=== PATIENT | female | born 1940 | race Caucasian/White ===

== ENCOUNTER 2017-03-22 16:49 | Emergency (ER) | payer OTHER, BC ==
[~2017-03-22] VITALS: Ht 156.2 cm; Wt 93.2 kg
[~2017-03-22 16:49] MED LIST: ADVIN25050 INH; ALBUAER2 INH; ALL180 PO; AMLO-110 PO; ASPEC81 PO; CALCTAB7 PO; CHOL4POW2 PO; CYAN10004 PO; DEXL60CA4 PO; EFFSR75 PO; FLUT27.5 NAE; KRIL1000 PO; LEVO100T PO; LPR25 PO; MULTCHW PO; OXYB3.9D TD; POTA20TA16 PO; SIMV10TA2 PO; SNG10 PO; WARF-246 PO
[2017-03-22 17:02] VITALS: BP 139/68; PULSE 65; TEMP 36.8; O2SAT 95; Ht 156.2 cm; Wt 93.2 kg
[2017-03-22] MEDS ORDERED: DIPHTHERIA/TETANUS/PERTUSSIS 0.5 ML SYR/VIAL IM. ONE (17:30)
[2017-03-22] MEDS ORDERED: GELATIN SPONGE 12-7MM EXT ONE (17:30)
[2017-03-22] MEDS ORDERED: VENL75CA73 PO (17:48)
[2017-03-22] MEDS ORDERED: FLUT27.53 NAE (17:48)
[2017-03-22] MEDS ORDERED: ASPI81TA21 PO (17:48)
[2017-03-22] MEDS ORDERED: FEXO1TAB46 PO (17:48)
[2017-03-22] MEDS ORDERED: SNG10 PO (17:48)
[2017-03-22] MEDS ORDERED: ATOR-22 PO (17:51)
[2017-03-22 18:09] LABS: INR 3.3 (0.9-1.1); PARTIAL THROMBOPLASTIN RATIO 1.5
[2017-03-22] MEDS ORDERED: [UNRECOGNIZED DRUG - REMARK] (18:15)
--- NOTE | 2017-03-22 18:31 | EMERGENCY ROOM VISIT NOTE ---
ED Visit Note First contact with patient: 17:08 Chief Complaint: Wound on LEFT Hand, Won't Stop Bleeding History of Present Illness: Patient is a 77-year-old female who presents to the emergency department with her for evaluation of a skin tear to the LEFT hand. She reports that her dog accidentally scraped her today. She's been unable to stop the bleeding. She also has bruising to the RIGHT thumb after the dog pushed off on her hand yesterday. She currently takes Coumadin for atrial fibrillation. Her last INR was 2.9. The patient rates her current discomfort as a 0/10. Her tetanus status is not up-to-date. She denies any numbness or tingling into the distal extremity. Medications: Reviewed and discussed with the patient. Allergies: Multiple allergies listed above. PMH: No pertinent past medical history. SHx: Patient is a 77-year-old female who lives locally with family. ROS: All pertinent positive and negative review of systems are appropriately documented in the History of Present Illness. Physical Exam: VITAL SIGNS - Vital signs and Nursing Notes were reviewed. GENERAL -77-year-old female, well-developed, well-nourished, and in no acute distress. SKIN/MUSCULOSKELETAL -small 2.0 cm skin tear noted to the dorsal surface of the proximal LEFT thumb. Oozing blood from the wound. No surrounding erythema. 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 Small ecchymosis to the thenar eminence of the RIGHT thumb. Full range of motion with +/5 strength appreciated bilaterally. NEURO - Patient is A&Ox3 and communicates appropriately with the provider. LABS: Last 24 Hours Test 03/22/17 17:48 Prothrombin Time 37.0 SECONDS Prothromb Time International Ratio 3.3 Activated Partial Thromboplast Time 37.8 SECONDS Partial Thromboplastin Ratio 1.5 ED Course: Patient was seen and evaluated by myself. Labs were drawn. The patient's INR was elevated at 3.3. Patient's tetanus was updated. Wound was dressed with Gelfoam initially. She did bleed through this. Surgicel was applied to the area for comfort. Patient will follow-up with her primary care provider from today's visit. She will return for any changing or worsening symptoms. Patient discharged home in good condition. In the evaluation and treatment of this patient, the following differential diagnoses were considered: Bleeding dyscrasia, elevated INR, cellulitis, amongst others. Impression: Skin Tear to LEFT Hand, Bruising to RIGHT Hand, Elevated INR Discharge Instructions: You have been treated in the Emergency Department today for your skin tear. Leave the Surgicel and dressing in place for the next 48 hours. Keep the dressing clean and dry until time for removal. To remove the Surgicel dressing, remove the overlying tape and then soak the wound in warm water until the piece of Surgicel can be easily removed. Proper wound care is essential for adequate wound healing and infection prevention. You can shower and clean the wound with soap and water. Do not scour over the wound, pat dry with a towel. You can use an antibiotic ointment with a dressing/bandage over the wound for the next 3-4 days. After this time you may leave the wound dry and open to the air. Look for signs of infection of the wound including: increased pain, swelling, foul discharge, streaking, or increased temperature. If any of these are noticed you should return to the Emergency Department for further assessment and treatment. As with any laceration you may have received nerve damage to the surrounding tissues. This damage could be permanent. For pain control, you can use the following [id number] medicines (if >12 yo): - Regular strength (325mg/tab) Tylenol (acetaminophen) 2 tabs every 4-6 hours as needed. Do not exceed 12 tablets in a 24 hour period. Avoid taking more than 4 grams (4000 mg) of Tylenol per day. This includes any other sources of acetaminophen you may take on a regular basis. - Regular strength (200 mg/tab) Advil (ibuprofen) 1-2 tabs every 4-6 hours as needed. Do not exceed a dose of 3200 mg per day. Return to the emergency department if your symptoms worsen despite treatment course outlined above. Problem List Medical Problems: (1) Arthroscopy of knee joint Status: Resolved (2) Atrial fibrillation Status: Chronic (3) Benign hypertension Status: Chronic (4) Coronary arteriosclerosis Status: Chronic (5) Coronary artery disease Status: Chronic (6) Deep venous thrombosis Status: Resolved (7) Dyslipidemia Status: Chronic (8) Essential hypertension Status: Chronic (9) Gastroesophageal reflux disease Status: Chronic (10) Hypothyroidism Status: Chronic (11) Lyme disease Status: Resolved (12) Pulmonary embolism Status: Resolved (13) Sleep apnea Status: Chronic (14) Stented coronary artery Status: Chronic Surgical Problems: (1) History of appendectomy Status: Resolved (2) Placement of stent in coronary artery Status: Resolved (3) Tubal Ligation Status Status: Resolved Current/Historical Medications Scheduled Albuterol (Ventolin Hfa), 2 PUFFS INH PRN Amlodipine (Norvasc), 5 MG PO DAILY Aspirin Enteric Coated (Ecotrin Or Generic), 81 MG PO HS Atorvastatin (Lipitor), 20 MG PO HS Calcium Carbonate-Vitamin D W/ (Caltrate 600 Plus), 1 TAB PO DAILY Cyanocobalamin (Vitamin B-12 1000 Mcg), 1,000 MCG PO DAILY Dexlansoprazole (Dexilant), 60 MG PO HS Fexofenadine Hcl (Marlyn), 180 MG PO HS Fluticasone Furoate (Flonase Sensimist), 2 SPRAYS CATRACHO HS Fluticasone Prop/Salmeterol (Advair Diskus 250-50 Mcg/Dose), 1 PUFF INH DAILY Levothyroxine Sodium (Synthroid), 100 MCG PO DAILY Metoprolol Tartrate (Lopressor), 25 MG PO BID Montelukast Sod (Montelukast Sodium), 10 MG PO QAM Multiple Vitamins W/ Minerals (Centrum Silver), 1 TAB PO DAILY Oxybutynin Chloride (Oxytrol), 1 PATCH TD 2XWK Potassium Ext Rel (Klor-Con), 20 MEQ PO BID Venlafaxine Hcl (Venlafaxine Extended Rel), 75 MG PO QAM Warfarin Sodium (Warfarin Sodium), 5 MG PO 6XWK Warfarin Sodium (Warfarin Sodium), 7.5 MG PO WEDNESDAY Scheduled PRN Cholestyramine Light (Questran Powder Light), 4 GM PO DAILY PRN for lyme's flare Miscellaneous Medications [Unknown Gerd Med] Allergies Coded Allergies: Penicillins (Verified Allergy, Mild, 03/22/17) Broccoli (Unverified Allergy, Unknown, GAS, 03/22/17) Dust (Verified Allergy, Unknown, asthma symptoms, 03/22/17) Grapefruit (Unverified Allergy, Unknown, BRONCHITIS, 03/22/17) Molds and Smuts (Verified Allergy, Unknown, asthma symptoms, 03/22/17) [place] (Unverified Allergy, Unknown, BRONCHITIS, 03/22/17) POLLEN (Verified Allergy, Unknown, asthma symptoms, 03/22/17) Paroxetine (Unverified Allergy, Unknown, ANAPHYLAXIS, 03/22/17) Crab (Verified Adverse Reaction, Unknown, diarrhea, 03/22/17) Peanut (Unverified Adverse Reaction, Unknown, gas/bloating, 03/22/17) Uncoded Allergies: BEANS (Adverse Reaction, Unknown, gas and bloating with consuption of green or kidneys beans, 09/20/14) PEANUTS (Adverse Reaction, Unknown, gas/bloating, 09/20/14) Vital Signs Date Time Temp Pulse Resp B/P Pulse Ox O2 Delivery O2 Flow Rate FiO2 03/22/17 17:02 36.8 65 18 139/68 95 Room Air Laboratory Results Test 03/22/17 17:48 Prothrombin Time 37.0 SECONDS (9.0-12.0) Prothromb Time International Ratio 3.3 (0.9-1.1) Activated Partial Thromboplast Time 37.8 SECONDS (21.0-31.0) Partial Thromboplastin Ratio 1.5 Medications Administered Medications (Trade) Dose Ordered Sig/Woo Route Start Time Stop Time Status Last Admin Dose Admin Gelatin (Surgifoam Sponge 12-7MM (SMALL)) 1 ea NOW ONCE EXT 03/22/17 17:30 03/22/17 17:31 DC 03/22/17 17:37 1 EA Diphtheria/ Pertussis/Tetanus Vacc (Adacel Inj) 0.5 ml ONCE ONCE IM. 03/22/17 17:30 03/22/17 17:31 DC 03/22/17 17:38 0.5 ML Departure Information Impression Primary Impression: Skin tear of hand without complication Additional Impression: Elevated INR Dispostion Home / Self-Care Referrals Kumar Salinas M.D. (PCP) Patient Instructions My [facility] Additional Instructions You have been treated in the Emergency Department today for your skin tear. Leave the Surgicel and dressing in place for the next 48 hours. Keep the dressing clean and dry until time for removal. To remove the Surgicel dressing, remove the overlying tape and then soak the wound in warm water until the piece of Surgicel can be easily removed. Proper wound care is essential for adequate wound healing and infection prevention. You can shower and clean the wound with soap and water. Do not scour over the wound, pat dry with a towel. You can use an antibiotic ointment with a dressing/bandage over the wound for the next 3-4 days. After this time you may leave the wound dry and open to the air. Look for signs of infection of the wound including: increased pain, swelling, foul discharge, streaking, or increased temperature. If any of these are noticed you should return to the Emergency Department for further assessment and treatment. As with any laceration you may have received nerve damage to the surrounding tissues. This damage could be permanent. For pain control, you can use the following [id number]-[id number] medicines (if >12 yo): - Regular strength (325mg/tab) Tylenol (acetaminophen) 2 tabs every 4-6 hours as needed. Do not exceed 12 tablets in a 24 hour period. Avoid taking more than 4 grams (4000 mg) of Tylenol per day. This includes any other sources of acetaminophen you may take on a regular basis. - Regular strength (200 mg/tab) Advil (ibuprofen) 1-2 tabs every 4-6 hours as needed. Do not exceed a dose of 3200 mg per day. Return to the emergency department if your symptoms worsen despite treatment course outlined above. Problem Qualifiers Primary Impression: Skin tear of hand without complication Encounter type: initial encounter Laterality: left Qualified Codes: S61.412A - Laceration without foreign body of left hand, initial encounter
== END 2017-03-22 19:07 | disposition home or self-care (01) ==
LOC: C.EDB 16:50 → C.EDC 19:07
DX: S61.412A Laceration without foreign body of left hand, initial encounter (principal); S60.221A Contusion of right hand, initial encounter; W55.82XA Struck by other mammals, initial encounter; Z79.01 Long term (current) use of anticoagulants; I48.91 Unspecified atrial fibrillation; R79.1 Abnormal coagulation profile; I10 Essential (primary) hypertension; I25.10 Atherosclerotic heart disease of native coronary artery without angina pectoris; Z86.718 Personal history of other venous thrombosis and embolism; E78.5 Hyperlipidemia, unspecified; K21.9 Gastro-esophageal reflux disease without esophagitis; E03.9 Hypothyroidism, unspecified; Z86.711 Personal history of pulmonary embolism; G47.30 Sleep apnea, unspecified; Z95.5 Presence of coronary angioplasty implant and graft; Z98.51 Tubal ligation status; Z79.82 Long term (current) use of aspirin; Z79.899 Other long term (current) drug therapy

== ENCOUNTER 2017-06-29 16:59 | Emergency (ER) | payer OTHER, BC ==
[~2017-06-29] VITALS: Ht 154.9 cm; Wt 90.0 kg
[~2017-06-29 16:59] MED LIST changes: -ALL180 PO; -ASPEC81 PO; +ASPI81TA21 PO; +ATOR-22 PO; -EFFSR75 PO; +FEXO1TAB46 PO; -FLUT27.5 NAE; +FLUT27.53 NAE; -KRIL1000 PO; -SIMV10TA2 PO; +VENL75CA73 PO; +[UNRECOGNIZED DRUG - REMARK]
[2017-06-29 17:01] VITALS: TEMP 36.9; Ht 154.9 cm; Wt 90.0 kg
--- NOTE | 2017-06-29 17:44 | DIAGNOSTIC IMAGING REPORT ---
LEFT ANKLE MIN 3 VIEWS ROUTINE CLINICAL HISTORY: 77 years-old Female presenting with left ankle bruising/swelling, no known trauma. TECHNIQUE: Frontal, oblique, and lateral views of the left ankle were obtained. COMPARISON: None. FINDINGS: Ankle mortise intact. Ossicle inferior to the medial malleolus may represent prior avulsion fracture. No evidence of acute fracture or malalignment. Prominent bone spur at the posterior calcaneal tuberosity and inferior calcaneus, likely enthesophytes of the Achilles tendon insertion and plantar fascia origin. Osteophytosis at the ankle joint. Plate and screw fixation of the first metatarsal partially visualized. Mild diffuse soft tissue swelling. IMPRESSION: 1. No acute osseous injury of the left ankle. 2. Degenerative changes as above. 3. Partial visualization of plate and screw fixation of the first metatarsal. Electronically signed by: Richomnd Cast M.D. 06/29/2017 5:42 PM Dictated Date/Time: 06/29/2017 5:40 PM
--- NOTE | 2017-06-29 17:48 | DIAGNOSTIC IMAGING REPORT ---
LEFT FOOT MIN 3 VIEWS ROUTINE CLINICAL HISTORY: 77 years-old Female presenting with bruising, pain. TECHNIQUE: Frontal, oblique, and lateral views of the left foot were obtained. COMPARISON: None. FINDINGS: Plate and screw fixation of the first metatarsal and proximal first phalanx spanning the first metatarsophalangeal joint. A lag screw also crosses the first metatarsophalangeal joint. No apparent hardware complication. Deformity of the neck of the fifth metatarsal consistent with prior fracture. Prominent bone spurs at the posterior calcaneal tuberosity and inferior calcaneus. Osteopenia. No erosive changes. No acute fracture or malalignment. Os naviculare noted. Diffuse soft tissue swelling. IMPRESSION: 1. No acute osseous injury of the left foot. 2. Postoperative changes of first metatarsophalangeal fixation. No radiographic evidence of osteomyelitis or hardware complication. Electronically signed by: Richmond Cast M.D. 06/29/2017 5:46 PM Dictated Date/Time: 06/29/2017 5:42 PM
[2017-06-29] MEDS ORDERED: MONT1TAB3 PO (17:54)
[2017-06-29] MEDS ORDERED: NYSTOIN5 (17:54)
[2017-06-29] MEDS ORDERED: BENZ100C84 PO (17:54)
[2017-06-29] MEDS ORDERED: VNTHFA/IN INH (17:54)
[2017-06-29] MEDS ORDERED: DVN80 PO (17:54)
[2017-06-29] MEDS ORDERED: ZCR10 (17:54)
[2017-06-29] MEDS ORDERED: COEN30CA8 (17:54)
--- NOTE | 2017-06-29 18:09 | EMERGENCY ROOM VISIT NOTE ---
ED Visit Note First contact with patient: 17:17 This Patient was discussed with the physician.Continuity Tester, Bridget Marsh PA-C The pertinent historical and physical exam findings were confirmed. I agree with the studies ordered and with the interpretations of these studies. I agree with the disposition and care plan.
--- NOTE | 2017-06-29 18:16 | EMERGENCY ROOM VISIT NOTE ---
"ED Visit Note First contact with patient: 17:05 CHIEF COMPLAINT: Left foot and ankle swelling/bruising HISTORY OF PRESENT ILLNESS: This 77-year-old female presents the ER with chief complaint of left foot and ankle swelling and bruising. The patient does not remember injuring her foot and ankle in any way. She states she noticed the bruising 5 days ago. She states at that point it was more on the top of her foot and ankle and now it is just more towards her toes. The patient states it hurts to ambulate. The patient did not see her PCP for her injury. REVIEW OF SYSTEMS: 6 system review was performed and was negative unless stated otherwise in history of present illness. PMH: No prior significant ankle injury. See chronic problem list SOCIAL HISTORY: Patient lives with her PHYSICAL EXAM: Vital Signs: Were reviewed Reviewed Nurse's notes. GEN.: 69-year -old white female appears in no acute distress. MENTAL STATUS: Alert, oriented , and cooperative. LUNGS: Clear to auscultation without wheezes rales or rhonchi. CARDIAC: Regular rate and rhythm without murmur. LEFT ANKLE The ankle is swollen and tender over the lateral aspect but the skin is intact and there is no ligamentous instability. Ecchymosis is noted just inferior to the malleolus. LEFT FOOT: No gross bony deformity noted. The patient has ecchymosis noted over the lateral aspect of the foot and over the second through fifth toes. The foot is warm and well-perfused. No pitting edema noted. EMERGENCY DEPARTMENT COURSE: The patient was evaluated. X-ray of the left ankle and left foot was ordered and interpreted by the radiologist and myself. DIAGNOSTICS:LEFT ANKLE MIN 3 VIEWS ROUTINE CLINICAL HISTORY: 77 years-old Female presenting with left ankle bruising/swelling, no known trauma. TECHNIQUE: Frontal, oblique, and lateral views of the left ankle were obtained. COMPARISON: None. FINDINGS: Ankle mortise intact. Ossicle inferior to the medial malleolus may represent prior avulsion fracture. No evidence of acute fracture or malalignment. Prominent bone spur at the posterior calcaneal tuberosity and inferior calcaneus, likely enthesophytes of the Achilles tendon insertion and plantar fascia origin. Osteophytosis at the ankle joint. Plate and screw fixation of the first metatarsal partially visualized. Mild diffuse soft tissue swelling. IMPRESSION: 1. No acute osseous injury of the left ankle. 2. Degenerative changes as above. 3. Partial visualization of plate and screw fixation of the first metatarsal. Electronically signed by: Richmond Cast M.D. LEFT FOOT MIN 3 VIEWS ROUTINE CLINICAL HISTORY: 77 years-old Female presenting with bruising, pain. TECHNIQUE: Frontal, oblique, and lateral views of the left foot were obtained. COMPARISON: None. FINDINGS: Plate and screw fixation of the first metatarsal and proximal first phalanx spanning the first metatarsophalangeal joint. A lag screw also crosses the first metatarsophalangeal joint. No apparent hardware complication. Deformity of the neck of the fifth metatarsal consistent with prior fracture. Prominent bone spurs at the posterior calcaneal tuberosity and inferior calcaneus. Osteopenia. No erosive changes. No acute fracture or malalignment. Os naviculare noted. Diffuse soft tissue swelling. IMPRESSION: 1. No acute osseous injury of the left foot. 2. Postoperative changes of first metatarsophalangeal fixation. No radiographic evidence of osteomyelitis or hardware complication. Electronically signed by: Richmond Cast M.D. 06/29/2017 5:46 PM The patient was informed of the findings. The patient was independently evaluated by Dr. Pal who agree with treatment plan. I discussed with the patient there is a possibility she could have a stress fracture there which is not visualized on the x-ray. If her symptoms persist she is to see her family doctor for repeat x-ray. The patient was placed in a postop shoe. She has a walker at home to aid in ambulation. The patient was discharged home in stable condition. DIAGNOSIS: Left foot and ankle sprain DISCHARGE INSTRUCTIONS: Ice and elevation over the next 24 hours. Ibuprofen, 600 mg every 6 hours if needed for pain. Take [place] as needed for more severe pain. Do not drive while taking the [place]. Use her walker to aid in ambulation. If there is no improvement in 3-5 days followup with your doctor for a re-x-ray. Problem List Medical Problems: (1) Arthroscopy of knee joint Status: Resolved (2) Atrial fibrillation Status: Chronic (3) Benign hypertension Status: Chronic (4) Coronary arteriosclerosis Status: Chronic (5) Coronary artery disease Status: Chronic (6) Deep venous thrombosis Status: Resolved (7) Dyslipidemia Status: Chronic (8) Essential hypertension Status: Chronic (9) Gastroesophageal reflux disease Status: Chronic (10) Hypothyroidism Status: Chronic (11) Lyme disease Status: Resolved (12) Pulmonary embolism Status: Resolved (13) Sleep apnea Status: Chronic (14) Stented coronary artery Status: Chronic Surgical Problems: (1) History of appendectomy Status: Resolved (2) Placement of stent in coronary artery Status: Resolved (3) Tubal Ligation Status Status: Resolved Current/Historical Medications Scheduled Albuterol Hfa (Ventolin Hfa), 2-4 PUFFS INH Q6H Amlodipine (Norvasc), 5 MG PO DAILY Aspirin Enteric Coated (Ecotrin Or Generic), 81 MG PO HS Atorvastatin (Lipitor), 20 MG PO HS Calcium Carbonate-Vitamin D W/ (Caltrate 600 Plus), 1 TAB PO DAILY Cyanocobalamin (Vitamin B-12 1000 Mcg), 1,000 MCG PO DAILY Dexlansoprazole (Dexilant), 60 MG PO HS Fexofenadine Hcl (Marlyn), 180 MG PO HS Fluticasone Furoate (Flonase Sensimist), 2 SPRAYS CATRACHO HS Fluticasone Prop/Salmeterol (Advair Diskus 250-50 Mcg/Dose), 1 PUFF INH DAILY Levothyroxine Sodium (Synthroid), 100 MCG PO DAILY Metoprolol Tartrate (Lopressor), 25 MG PO BID Montelukast Sod (Montelukast Sodium), 10 MG PO QAM Montelukast Sodium (Singulair), 1 TAB PO DAILY Multiple Vitamins W/ Minerals (Centrum Silver), 1 TAB PO DAILY Potassium Ext Rel (Klor-Con), 20 MEQ PO BID Valsartan (Diovan), 1 TAB PO DAILY Venlafaxine Hcl (Venlafaxine Extended Rel), 75 MG PO QAM Warfarin Sodium (Warfarin Sodium), 5 MG PO 6XWK Warfarin Sodium (Warfarin Sodium), 7.5 MG PO WEDNESDAY Scheduled PRN Cholestyramine Light (Questran Powder Light), 4 GM PO DAILY PRN for lyme's flare Miscellaneous Medications Benzonatate (Tessalon Perles), 100 MG PO Coenzyme Q10 (Ubidecarenone) (Coq-10) Nystatin/Triamcinolone (Mycogen ||) Simvastatin (Simvastatin) [Unknown Gerd Med] Allergies Coded Allergies: Penicillins (Verified Allergy, Mild, 06/29/17) Broccoli (Unverified Allergy, Unknown, GAS, 06/29/17) Dust (Verified Allergy, Unknown, asthma symptoms, 06/29/17) Grapefruit (Unverified Allergy, Unknown, BRONCHITIS, 06/29/17) Molds and Smuts (Verified Allergy, Unknown, asthma symptoms, 06/29/17) Minetto (Unverified Allergy, Unknown, BRONCHITIS, 06/29/17) POLLEN (Verified Allergy, Unknown, asthma symptoms, 06/29/17) Paroxetine (Unverified Allergy, Unknown, ANAPHYLAXIS, 06/29/17) Crab (Verified Adverse Reaction, Unknown, diarrhea, 06/29/17) Peanut (Unverified Adverse Reaction, Unknown, gas/bloating, 06/29/17) Uncoded Allergies: BEANS (Adverse Reaction, Unknown, gas and bloating with consuption of green or kidneys beans, 09/20/14) PEANUTS (Adverse Reaction, Unknown, gas/bloating, 09/20/14) Vital Signs Date Time Temp Pulse Resp B/P (MAP) Pulse Ox O2 Delivery O2 Flow Rate FiO2 06/29/17 17:01 36.9 79 20 152/73 93 Room Air Departure Information Referrals Kumar Salinas M.D. (PCP) Patient Instructions My [facility]"
[2017-06-29] MEDS ORDERED: HYDR-5688 PO (18:18)
[2017-06-29 18:28] VITALS: BP 172/76; PULSE 73; O2SAT 93
== END 2017-06-29 18:33 | disposition home or self-care (01) ==
LOC: C.EDB 17:00 → C.EDC 18:33
DX: S93.402A Sprain of unspecified ligament of left ankle, initial encounter (principal); X58.XXXA Exposure to other specified factors, initial encounter; I48.91 Unspecified atrial fibrillation; I10 Essential (primary) hypertension; I25.10 Atherosclerotic heart disease of native coronary artery without angina pectoris; Z86.718 Personal history of other venous thrombosis and embolism; E78.5 Hyperlipidemia, unspecified; K21.9 Gastro-esophageal reflux disease without esophagitis; E03.9 Hypothyroidism, unspecified; Z86.711 Personal history of pulmonary embolism; G47.30 Sleep apnea, unspecified; Z95.5 Presence of coronary angioplasty implant and graft; Z98.51 Tubal ligation status; Z79.82 Long term (current) use of aspirin; Z79.01 Long term (current) use of anticoagulants; Z79.899 Other long term (current) drug therapy

== ENCOUNTER 2019-08-22 06:47 | Inpatient (IN) ==
--- OUTSIDE RECORDS SUMMARY | 2019-08-22 06:57 | External Medical Summary | Continuity of Care Document ---
:1940 Author Name Nayan Aguilar, Provider Address Unavailable Unavailable , Care Team Providers Name Role Phone [facility]ontse, Provider Unavailable [email or web address] [email or web address], UNKNOWN Unavailable Unavailable Problems Active medical history not documented Allergies and Adverse Reactions Allergy history not documented Medications Medications not documented Procedures Procedures not documented Immunizations Immunizations not documented Plan of Treatment Planned Observations Planned Goals not documented Results No Known Results Results not documented
[2019-08-22 07:34] LABS: Basophils # (auto) 0.02 K/uL (0-0.2); Basophils % (auto) 0.2 %; Hematocrit (blood only) 29.7 % (37-47); Hemoglobin 9.3 g/dL (12.0-16.0); Immature Granulocytes # (auto) 0.02 K/uL (0.00-0.02); Immature Granulocytes % (auto) 0.2 %; Lymphocytes # (auto) 0.72 K/uL (1.2-3.4); Lymphocytes % (auto) 7.5 %; Mean Corpuscular Hemoglobin 25.8 pg (25-34); Mean Corpuscular Hgb Conc 31.3 g/dL (32-36); Mean Corpuscular Volume 82.3 fL (80-100); Mean Platelet Volume 9.8 fL (7.4-10.4); Monocytes # (auto) 0.22 K/uL (0.11-0.59); Monocytes % (auto) 2.3 %; Neutrophils # (auto) 8.61 K/uL (1.4-6.5); Neutrophils % (auto) 89.8 %; Platelet Count 324 K/uL (130-400); RDW Coefficient of Variation 16.8 % (11.5-14.5); RDW Standard Deviation 51.1 fL (36.4-46.3); Red Blood Count 3.61 M/uL (4.2-5.4); White Blood Count 9.59 K/uL (4.8-10.8)
[2019-08-22 07:51] LABS: Albumin Level 3.2 gm/dl (3.4-5.0); BUN Creatinine Ratio 31.6 (10-20); Calcium 9.1 mg/dl (8.5-10.1); Creatinine Clr Calc Pharmacy 52.5 ml/min; Est GFR (African American) 71.9; Est GFR (Non-African American) 62.1; INR 2.5 (0.9-1.1); Partial Thromboplastin Ratio 1.2; Partial Thromboplastin Time 32.8 Seconds (21.0-31.0); Prothrombin Time 23.8 Seconds (9.0-12.0)
[2019-08-22 07:54] LABS: Bilirubin,Total 0.3 mg/dl (0.2-1); Globulin 3.3 gm/dl (2.5-4.0); Total Protein 6.5 gm/dl (6.4-8.2)
--- NOTE | 2019-08-22 07:55 | CT Scan Report ---
CT head/brain wo con CLINICAL HISTORY: 79 years-old Female presenting with Syncopal event on coumadin. TECHNIQUE: Multidetector CT imaging of the head was performed without the use of intravenous contrast . IV contrast: None. One or more dose lowering techniques were used consistent with the principles of ALARA (as low as reasonably achievable), including automatic exposure control, mA or kV adjustment t o individual patient size, and/or use of iterative reconstruction. COMPARISON: 06/07/2011. CT DOSE (mGy.cm): The estimated cumulative dose is 537.48 mGy.cm. FINDINGS: Dress Shoe Inspector topogram: Unremarkable. Ventricles and sulci normal in size. No hemorrhage. Periventricular and subcortical white matter hypo attenuation, nonspecific but likely indicative of chronic small vessel ischemic change. Possible old lacunar infarct in the left basal ganglia. No acute territorial infarct. No mass effect or midline sh ift. No extra-axial fluid collection. Paranasal sinuses and mastoid air cells clear. Calvarium intact . IMPRESSION: 1. Chronic small vessel ischemic change. No acute intracranial abnormality. Electronically signed by: Richmond Cast M.D. 08/22/2019 7:54 AM
--- NOTE | 2019-08-22 07:57 | XRay Report ---
XR chest 1V portable CLINICAL HISTORY: 79 years-old Female presenting with Syncope. TECHNIQUE: Portable upright AP view of the chest was obtained. COMPARISON: 03/01/2016. FINDINGS: Atherosclerosis of the aortic arch. Cardiac silhouette mildly enlarged. Mitral annular calcification. No focal opacity. No large effusion or pneumothorax. Degenerative changes of the thoracic spine. Upp er abdomen normal. IMPRESSION: 1. Mild cardiomegaly without evidence of volume overload or congestive change. No other convincing e vidence of acute cardiopulmonary disease. Electronically signed by: Richmond Cast M.D. 08/22/2019 7:56 AM
[2019-08-22] MEDS ORDERED: SODIUM CHLORIDE 0.9% 1000ML 1,000 ML IV ONE (08:22)
[2019-08-22] MEDS ORDERED: PHYTONADIONE 2.5 MG in SODIUM CHLORIDE 0.9% 50 ML IV ONE (08:31)
[2019-08-22] MEDS ORDERED: WATER, STERILE 50 ML, TRANEXAMIC ACID ORAL RINSE 5,000 MG, BARCODE IDENTIFIER 1 EA MT ONE ×2 (08:32→13:00)
[2019-08-22] MEDS ORDERED: SODIUM CHLORIDE 0.9% 250 ML IV PRN ×4 (09:11→13:42)
--- NOTE | 2019-08-22 09:31 | History & Physical Report ---
Date of Service August 22, 2019 Assessment & Plan (1) Postoperative bleeding from mouth: This is an 79-year-old female who has significant past medical history of PAF anticoagulated on warfarin, T2DM, HTN, HLD, hypothyroidism, DEMARIO, asthma, CKD stage III, GERD, glaucoma who presents to [facility] ED secondary to bleeding from mouth and near syncopal episode prior to arrival. Pt had root canal 1 week ago, 2 days later tooth extraction Returned to dentist yesterday due to oral pain, tooth fragments removed Since yesterday pt has been having bleeding from area of dental work in clots with near syncopal episode In ED H/H 9.3 29.7, baseline hemoglobin is 12.6 PT/INR 2.5 ECG reveals normal sinus rhythm Hemodynamically patient was stable, but she was orthostatic blood pressure lying 136/69 and dropped to 71/44 with standing, heart rate 96 with standing In ED patient received 2.5 mg IV vitamin K along with 1 L of IVF Further received oral mouth rinse tranexamic acid admit to PCU reverse INR and hold warfarin in setting of active bleeding 4 unit FFP ordered 1 unit PRBC placed on HOLD trend H/H q6 hr next at 1pm PT/INR at 7pm Pt oral surgeon is Dr. Ozuna in [place], [place] ( Per case management Dr. 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 (5) HTN (hypertension): blood pressure currently stable hold losartan, lasix, HCTZ in setting of hypovolemia continue metoprolol tartrate with parameters monitor (6) HLD (hyperlipidemia): Continue statin (7) DEMARIO (obstructive sleep apnea): Cpap at (8) Asthma: no acute exacerbation continue ICS inhaler, prn albuterol (9) CKD (chronic kidney disease) stage 3, GFR 30-59 ml/min: BUN/Cr 28/0.88 ration 31.6, likely in setting of hypovolemia pt receiving 1L IVF in ED along with 4 unit FFP monitor renal fxn (10) Hypothyroidism: continue levothyroxine (11) GERD (gastroesophageal reflux disease): continue PPI (12) Primary open angle glaucoma: continue lataprost (13) DVT prophylaxis: SCD/TEDS hold warfarin in setting of acute bleeding from mouth, pt in NSR Disposition: admit to PCU Follow up: PCP Dr. Cisneros upon discharge along with appropriate follow up with Dr. Williamson - oral surgeon Patient was seen and examined in collaboration with Dr. Arenas, please see addendum History of Present Illness Chief Complaint: bleeding from mouth; near syncope Primary Care Provider: Kumar Salinas MD This is an 79-year-old female who has significant past medical history of PAF anticoagulated on warfarin, T2DM, HTN, HLD, hypothyroidism, DEMARIO, asthma, CKD stage III, GERD, glaucoma who presents to [facility] ED secondary to bleeding from mouth and near syncopal episode prior to arrival. Approximately 1 week ago patient had a root canal performed in 2 days later had tooth extraction on left side. Patient is on warfarin for PAF as well as aspirin. She was not instructed to discontinue these prior to procedure. She was having increased pain in the left side of mouth therefore went back to her dentist yesterday. According to patient tooth fragments were removed from area. Since seeing dentist yesterday she has been having bleeding from mouth, described as "clots." Bleeding has been persistent since yesterday evening soaking through numerous gauze pads. Earlier this morning when she got up to go to the bathroom she felt very lightheaded and dizzy and therefore lowered herself to the ground and laid on the floor. Her significant other help assist her back to bed. When she got up a second time to move her bowels she again felt very dizzy and lightheaded requiring her to lay on the floor. She denies true syncope and recalls all events, but was reported from significant other that she may have passed out. Denies hitting her head. Currently lying in bed she denies any lightheadedness or dizziness, f/c/s, chest pain, sob, palpitations, cough, n/v/d/, abdominal pain, change in bowel or urinary habits. Appetite has otherwise been stable. Allergies Allergy/AdvReac Type Severity Reaction Status Date / Time Penicillins Allergy Mild Verified 08/22/19 07:28 broccoli Allergy Unknown GAS Unverified 08/22/19 07:28 grapefruit Allergy Unknown BRONCHITIS Unverified 08/22/19 07:28 mold Allergy Unknown asthma Verified 08/22/19 07:28 symptoms orange Allergy Unknown BRONCHITIS Unverified 08/22/19 07:28 paroxetine Allergy Unknown ANAPHYLAXIS Unverified 08/22/19 07:28 pollen extracts Allergy Unknown asthma Verified 08/22/19 07:28 symptoms crab AdvReac Unknown diarrhea Verified 08/22/19 07:28 peanut AdvReac Unknown gas/bloatin Unverified 08/22/19 07:28 g Dust Allergy Unknown asthma Uncoded 08/22/19 07:28 symptoms BEANS AdvReac Unknown gas and Uncoded 08/22/19 07:28 bloating with consuption of green or kidneys beans PEANUTS AdvReac Unknown gas/bloatin Uncoded 08/22/19 07:28 g Home Medications Home Medications Medication Instructions Recorded Confirmed Type aspirin 81 mg PO DAILY 08/22/19 08/22/19 History atorvastatin 20 mg PO DAILY 08/22/19 08/22/19 History clindamycin HCl 300 mg PO TID 08/22/19 08/22/19 History coenzyme Q10 [CoQ-10] 100 mg PO DAILY 08/22/19 08/22/19 History cyanocobalamin (vitamin B-12) 1,000 mcg PO DAILY 08/22/19 08/22/19 History dexlansoprazole [Dexilant] 60 mg PO DAILY 08/22/19 08/22/19 History fluticasone propion-salmeterol 1 inh INHALATION BID 08/22/19 08/22/19 History [Wixela Inhub] fluticasone propionate 2 spray INTRANASAL DAILY 08/22/19 08/22/19 History furosemide 20 mg PO DAILY 08/22/19 08/22/19 History latanoprost 1 drp OPHTHALMIC (EYE) UD 08/22/19 08/22/19 History levothyroxine 100 mcg PO QAM 08/22/19 08/22/19 History losartan 100 mg PO DAILY 08/22/19 08/22/19 History metformin 850 mg PO BID 08/22/19 08/22/19 History metoprolol tartrate 25 mg PO BID 08/22/19 08/22/19 History montelukast 10 mg PO DAILY 08/22/19 08/22/19 History multivitamin 1 tab PO DAILY 08/22/19 08/22/19 History warfarin 5 mg PO SUMOWEFR 08/22/19 08/22/19 History warfarin 7.5 mg PO TUTHSA 08/22/19 08/22/19 History Past Med/Surg History Medical History T2DM (type 2 diabetes mellitus) (Chronic) HTN (hypertension) (Chronic) HLD (hyperlipidemia) (Chronic) PAF (paroxysmal atrial fibrillation) (Chronic) DEMARIO (obstructive sleep apnea) (Chronic) Asthma (Chronic) CKD (chronic kidney disease) stage 3, GFR 30-59 ml/min (Chronic) Primary open angle glaucoma (Chronic) GERD (gastroesophageal reflux disease) (Chronic) Hypothyroidism (Chronic) History of placement of stent in LAD coronary artery (Chronic) Sleep apnea (Chronic) Surgical History History of rotator cuff surgery (Chronic) History of cataract extraction (Chronic) History of arthroscopic knee surgery (Chronic) History of tonsillectomy (Chronic) History of appendectomy (Chronic) Stented coronary artery (Chronic) Family History Father CHF (congestive heart failure) Mother Cancer Social History Preferred Language: Greenlandic Communication Ability: Effective Beliefs That Will Affect Care: None Current Living Situation: Significant Other Current Living Situation Comment: s/o Other Information That Helps Us Care for You: No Feels Safe at Home: Yes Safety Concerns: Feels Safe At This Time Smoking Status: Never smoker Hx Alcohol Use: No Hx Substance Use: No Review of Systems Review of Systems: All systems reviewed & are unremarkable except as noted in HPI & below Physical Exam Physical Exam: Constitutional: WD/WN, elderly, F, Pale, vitals as above, NAD, sitting up in bed, pleasant, conversing easily Head: Normocephalic, Atraumatic Eyes: PERRL, conjunctivae normal, anicteric sclerae ENMT: external ear and nose normal, oropharynx normal Neck: trachea midline, no thyromegaly normal visual inspection Respiratory: normal respiratory effort, lungs clear to auscultation, no wheeze, rales, rhonchi. Normal insp/exp effort, no accessory muscle use Cardiovascular: RRR, no murmur, trace to +1 pretibial edema Vessels: no JVD or carotid bruit Chest: normal inspection of chest Abdomen: normal bowel sounds, soft, nontender, no hepatosplenomegaly Musculoskeletal: no cyanosis or clubbing, extremities motor strength 5/5 Skin: no rashes, warm, mild turgor Neurologic: PERRL, EOMI, accommodation nl, no face palsy, no dysarthria CN's II-XI intact bilaterally and moves all extremities Psychiatric: A+Ox3, euthymic affect Lymphatic: no cervical or axillary lymphadenopathy : deferred Results & Data Vital Signs (Past 12 Hours) Vital Signs Temp Pulse Pulse Resp BP BP Pulse Ox 08/22/19 09:01 72 18 156/73 H 95 08/22/19 08:12 20 96 08/22/19 06:50 36.4 C L 75 16 160/64 H 96 Laboratory Results Short CBC 08/22/19 Range/Units 07:26 WBC 9.59 (4.8-10.8) K/uL Hgb 9.3 L (12.0-16.0) g/dL Hct 29.7 L (37-47) % Plt Count 324 (130-400) K/uL BMP 08/22/19 07:27 Sodium 139 Potassium 4.0 Chloride 103 Carbon Dioxide 26 BUN 28 H Creatinine 0.88 Glucose 152 H Calcium 9.1 Liver Function 08/22/19 Range/Units 07:27 Total Bilirubin 0.3 (0.2-1) mg/dl AST 10 L (15-37) U/L ALT 17 (12-78) U/L Alkaline Phosphatase 48 (45-117) U/L Albumin 3.2 L (3.4-5.0) gm/dl Diagnostic Findings CXR: IMPRESSION: 1. Mild cardiomegaly without evidence of volume overload or congestive change. No other convincing evidence of acute cardiopulmonary disease. Head CT: IMPRESSION: 1. Chronic small vessel ischemic change. No acute intracranial abnormality. Medications Administered Discontinued Medications Sterile Water 50 ml/Tranexamic Acid 5,000 mg/BARCODE IDENTIFIER 1 ea 0 ml MT ONE ONE Stop: 08/22/19 08:33 Last Admin: 08/22/19 09:14 Dose: 10 ml Documented by: [id number] Sodium Chloride (Nss 1000ml) 1,000 mls @ 999 mls/hr IV .Q1H1M ONE Stop: 08/22/19 09:22 Last Infusion: 08/22/19 09:30 Dose: 0 mls/hr Documented by: [id number] Admin: 08/22/19 08:29 Dose: 999 mls/hr Documented by: [id number] Phytonadione 2.5 mg/ Sodium (Chloride) 50.25 mls @ 100.5 mls/hr IV ONE ONE Stop: 08/22/19 09:00 Last Infusion: 08/22/19 09:30 Dose: 0 mls/hr Documented by: [id number] Admin: 08/22/19 08:59 Dose: 100.5 mls/hr Documented by: [id number] ECG Rate (beats per minute): 73 Rhythm: sinus rhythm Code Status & VTE Plan Code Status Full Code VTE Prophylaxis Plan VTE Prophylaxis will be ordered: Yes Reason for no VTE drug order: Contraindicated Supervising Physician Co-Signing Physician Notes I saw this patient with the physician congressional assistant, I participated in the history, physical, review of systems, and physical exam. I reviewed the medications with the patient and the physician congressional assistant and helped reconcile the medications. I helped take a detailed family and social history as well. I formulated the assessment and plan personally with the physician congressional assistant and went over it with the patient. ROS-No Headache, No Visual Changes, No Nausea, No Vomiting, No Fever, No Chills, No Neck Pain or Stiffness, No Chest Pain, No Palpitations, No SOB, No ENCISO, No Cough, No Sputum, No Wheezing, No Abdominal Pain, No Diarrhea, No Hematemesis, No Hemoptysis, No Unexpected Weight Loss, No Flank pain, No Melena, No Hematochezia, No Frequency, No Urgency, No Burning, No Hematuria, No Rashes, No Diaphoresis. Appetite is Normal, bleeding after tooth extraction, near/syncope Physical Exam Gen-AAO x 3, NAD, Afebrile, oral bleeding, orthostatic Head-NCAT, EOMI, PERRLA, Anicteric Sclera, No Posterior Pharyngeal Erythema Neck-Supple, No JVD, No Thyromegaly, No Masses, No LAD, No Bruits Lungs-Clear to Auscultation Bilaterally, No Rales, No Rhonchi, No Wheezing, No Crepitus Chest-No S4, +S1, +S2, No S3, No Murmurs, No Rubs, No Gallops, No Ectopy Abdomen-Soft, Bowel Sounds Present, Non Tender, Non Distended, No Hepatomegaly, No Splenomegaly, No Palpable Masses, No Rebound, No Rigidity, No Guarding Musculoskeletal-Full Range of Motion Bilaterally, No CVAT Extremities-No Cyanosis, No Clubbing, No Edema Nuero-Cranial Nerves II-XII grossly intact, Motor WNL, DTRs WNL, Strength WNL, Non Focal Psych-Normal Mood
--- NOTE | 2019-08-22 10:18 | Emergency Department Note ---
ED Visit Note This patient was seen in concert with Dr. Kwon and we discussed and agreed upon the history, physical, assessment and plan. See attending's note for details. . Resident Activity Tracking Resident Involvement: Resident Care Provided Care Provided: Adult ED : Anemia Qualifiers: Anemia type: unspecified type Qualified Code(s): D64.9 - Anemia, unspecified
[2019-08-22] MEDS ORDERED: GLUCOSE 10 TABS/TUBE PO PRN (11:49)
[2019-08-22] MEDS ORDERED: ONDANSETRON INJ 2 MG/ML 2 ML VIAL IV PRN (11:49)
[2019-08-22] MEDS ORDERED: POLYETHYLENE (MIRALAX) 17 GM PACK PO PRN (11:49)
[2019-08-22] MEDS ORDERED: DEXTROSE 50% 50 ML SYRINGE IV PRN (11:49)
[2019-08-22] MEDS ORDERED: GLUCAGON FOR INJ 1 MG VIAL SQ PRN (11:49)
[2019-08-22] MEDS ORDERED: MAGNESIUM HYDROXIDE SUSP 30 ML UDC PO PRN (11:49)
[2019-08-22] MEDS ORDERED: GLUCOSE 40% GEL 15 GM TUBE PO PRN (11:49)
[2019-08-22] MEDS ORDERED: CARBOHYDRATES FOR HYPOGLYCEMIA PO PRN (11:49)
[2019-08-22] MEDS ORDERED: ALUMINUM/MAGNESIUM SUSP 30 ML UDC PO PRN (11:49)
[2019-08-22 13:10] LABS: Hemoglobin 7.7 g/dL (12.0-16.0)
[2019-08-22] MEDS ORDERED: FUROSEMIDE 40 MG in SYRINGE 0 ML IV ONE (13:42)
[2019-08-22] MEDS: CLINDAMYCIN HCL 150 MG CAP PO SCH ×3 (14:28→23:27)
[2019-08-22] MEDS: INSULIN ASPART 100 UNITS/ML 3 ML PEN SC SCH ×3 (14:29→21:08)
--- NOTE | 2019-08-22 14:33 | Emergency Department Note ---
Entered by Jerald Dorado acting as a scribe for History of Present Illness General Chief complaint: Bleeding Stated complaint: mouth bleeding s/p dental procedure Time Seen by Provider: 08/22/19 06:55 Source: patient History of Present Illness Provider complaint: Bleeding Onset (ago): day(s) 1 Location: mouth Pain Consistency: + constant Maximum Pain Intensity: 0 Quality: + other (Bleeding) Relieved By: + none Exacerbated By: + other (Lying down) Associated symptoms: + nausea/vomiting (No vomiting), + syncope and + other (Dizzy, lightheaded); no chest pain and no shortness of breath The patient is an 79 year old female who presents to the Emergency Room with complaints of constant intra-oral bleeding from the left lower region of her mouth that started yesterday. The patient states she had a root canal done 1 week ago followed by having another tooth pulled 2 days after. The patient notes she still has some discomfort in her mouth so yesterday her dentist performed another procedure in the lower left mouth to remove tooth fragments. The patient reports she was bleeding since having this procedure done and throughout the night the bleeding became worse. She notes that around 04:00 in the morning she became dizzy, nauseous and ended up having a syncopal episode. The patient then went back to bed but after waking up at 05:00, she had another syncopal episode. The patient reports that she did not hit her head during any episode. Patient sensed she was passing out and lowered herself to the ground. The patient notes she currently has no pain in her mouth but she still is somewhat dizzy, which is worse when she is lying down. The patient reports that she is on Coumadin and Aspirin but was never instructed to hold these medications before the dental procedures. The patient was prescribed an antibiotic and pain medication but she is supposed to pick it up today. The patient denies any chest pain or shortness of breath. Home Medications Home Medications Medication Instructions Recorded Confirmed Type aspirin 81 mg PO DAILY 08/22/19 08/22/19 History atorvastatin 20 mg PO DAILY 08/22/19 08/22/19 History clindamycin HCl 300 mg PO TID 08/22/19 08/22/19 History coenzyme Q10 [CoQ-10] 100 mg PO DAILY 08/22/19 08/22/19 History cyanocobalamin (vitamin B-12) 1,000 mcg PO DAILY 08/22/19 08/22/19 History dexlansoprazole [Dexilant] 60 mg PO DAILY 08/22/19 08/22/19 History fluticasone propion-salmeterol 1 inh INHALATION BID 08/22/19 08/22/19 History [Wixela Inhub] fluticasone propionate 2 spray INTRANASAL DAILY 08/22/19 08/22/19 History furosemide 20 mg PO DAILY 08/22/19 08/22/19 History latanoprost 1 drp OPHTHALMIC (EYE) UD 08/22/19 08/22/19 History levothyroxine 100 mcg PO QAM 08/22/19 08/22/19 History losartan 100 mg PO DAILY 08/22/19 08/22/19 History metformin 850 mg PO BID 08/22/19 08/22/19 History metoprolol tartrate 25 mg PO BID 08/22/19 08/22/19 History montelukast 10 mg PO DAILY 08/22/19 08/22/19 History multivitamin 1 tab PO DAILY 08/22/19 08/22/19 History warfarin 5 mg PO SUMOWEFR 08/22/19 08/22/19 History warfarin 7.5 mg PO TUTHSA 08/22/19 08/22/19 History Allergies Allergy/AdvReac Type Severity Reaction Status Date / Time Penicillins Allergy Mild Verified 08/22/19 07:28 broccoli Allergy Unknown GAS Unverified 08/22/19 07:28 grapefruit Allergy Unknown BRONCHITIS Unverified 08/22/19 07:28 mold Allergy Unknown asthma Verified 08/22/19 07:28 symptoms orange Allergy Unknown BRONCHITIS Unverified 08/22/19 07:28 paroxetine Allergy Unknown ANAPHYLAXIS Unverified 08/22/19 07:28 pollen extracts Allergy Unknown asthma Verified 08/22/19 07:28 symptoms crab AdvReac Unknown diarrhea Verified 08/22/19 07:28 peanut AdvReac Unknown gas/bloatin Unverified 08/22/19 07:28 g Dust Allergy Unknown asthma Uncoded 08/22/19 07:28 symptoms BEANS AdvReac Unknown gas and Uncoded 08/22/19 07:28 bloating with consuption of green or kidneys beans PEANUTS AdvReac Unknown gas/bloatin Uncoded 08/22/19 07:28 g Past Med/Surg History Medical History CAD (coronary artery disease) (Chronic) stent in 1999 T2DM (type 2 diabetes mellitus) (Chronic) HTN (hypertension) (Chronic) HLD (hyperlipidemia) (Chronic) PAF (paroxysmal atrial fibrillation) (Chronic) DEMARIO (obstructive sleep apnea) (Chronic) Asthma (Chronic) CKD (chronic kidney disease) stage 3, GFR 30-59 ml/min (Chronic) Primary open angle glaucoma (Chronic) GERD (gastroesophageal reflux disease) (Chronic) Hypothyroidism (Chronic) History of placement of stent in LAD coronary artery (Chronic) Sleep apnea (Chronic) Surgical History History of rotator cuff surgery (Chronic) History of cataract extraction (Chronic) History of arthroscopic knee surgery (Chronic) History of tonsillectomy (Chronic) History of appendectomy (Chronic) Stented coronary artery (Chronic) Family History Father CHF (congestive heart failure) Mother Cancer Social History Preferred Language: German Communication Ability: Effective Beliefs That Will Affect Care: None marital status: Life Partner Current Living Situation: Significant Other Current Living Situation Comment: s/o Other Information That Helps Us Care for You: No Feels Safe at Home: Yes Safety Concerns: Feels Safe At This Time Smoking Status: Never smoker Hx Alcohol Use: No Hx Substance Use: No Review of Systems See HPI for pertinent positives & negatives. and A total of 10 systems reviewed and were otherwise negative Physical Exam Vital Signs Vital Signs - 24 hr 08/22/19 06:50 08/22/19 08:12 08/22/19 08:18 Temperature 36.4 C L Temperature Source Axillary Sepsis Recent Fever Within 48 Hours No Sepsis New/Unexplained Change in Mental Status No Sepsis Action Taken by Nursing No Action Required Pulse Rate - Lying 77 Pulse Rate - Sitting 87 Pulse Rate - Standing 96 H Pulse Rate 75 Pulse Rate [Apical] Pulse Rhythm [Apical] Respiratory Rate 16 20 Respiratory Effort / Characteristics Respiratory Depth Respiratory Pattern Blood Pressure - Lying 136/69 Blood Pressure - Sitting 124/49 L Blood Pressure- Standing 71/44 L Blood Pressure 160/64 H Blood Pressure [Left Arm] Blood Pressure Mean 96 Blood Pressure Mean [Left Arm] Pulse Oximetry 96 96 Oxygen Delivery Method Room Air Room Air 08/22/19 08:30 09/24/19 09:01 Temperature Temperature Source Sepsis Recent Fever Within 48 Hours Sepsis New/Unexplained Change in Mental Status Sepsis Action Taken by Nursing Pulse Rate - Lying Pulse Rate - Sitting Pulse Rate - Standing Pulse Rate Pulse Rate [Apical] 72 Pulse Rhythm [Apical] Regular Respiratory Rate 18 Respiratory Effort / Characteristics Non-Labored Spontaneous Respiratory Depth Normal Respiratory Pattern Regular Blood Pressure - Lying Blood Pressure - Sitting Blood Pressure- Standing Blood Pressure Blood Pressure [Left Arm] 156/73 H Blood Pressure Mean Blood Pressure Mean [Left Arm] 100 Pulse Oximetry 95 Oxygen Delivery Method Room Air Room Air Vital signs reviewed. General: Elderly, pale-appearing 79 year old female, in no significant distress. Dried blood noted to the right facial cheek. HEENT: No scleral icterus, PERRLA, neck supple. Atraumatic. Left mandibular molar socket with moderate oozing. Cardiovascular: Regular rate and rhythm, no extra sounds. Pulmonary: Clear to auscultation bilaterally, normal work of breathing. Abdomen: Soft, nontender, nondistended, positive bowel sounds. Musculoskeletal: Atraumatic, no peripheral edema. Neurologic: Patient awake alert and oriented x 3 Skin: Warm, dry, no rash Course 0659: Past medical records reviewed. The patient was evaluated in room B06 by the resident Paige Soriano, and a complete history and physical examination were performed. I then performed my own assessment. 0905: I spoke to Staci Jasmine PAC under Dr. Dagoberto Fish about the patient's case. They are going to accept the patient for further evaluation. 0927: I reevaluated the patient and updated her on results. We also discussed the treatment plan and she fully agrees with the plan. Consultations Consultation #1: I spoke to StaciMaribel Solano PAC under Dr. Dagoberto Fish about the patient's case. They are going to accept the patient for further evaluation. Time: 09:05 Administered Medications Acetaminophen (Tylenol) 650 mg PO Q4H PRN PRN Reason: Pain or Fever Stop: 09/21/19 11:48 Last Admin: 08/23/19 00:53 Dose: 650 mg Documented by: [id number] Atorvastatin Calcium (Lipitor) 20 mg PO DAILY ALYSA Stop: 09/22/19 08:59 Last Admin: 08/23/19 08:22 Dose: 20 mg Documented by: [id number] Clindamycin HCl (Cleocin) 300 mg PO Q6 ALYSA Stop: 09/01/19 11:59 Last Admin: 08/23/19 18:09 Dose: 300 mg Documented by: [id number] Admin: 08/23/19 12:15 Dose: 300 mg Documented by: [id number] Admin: 08/23/19 05:26 Dose: 300 mg Documented by: [id number] Admin: 08/22/19 23:27 Dose: 300 mg Documented by: [id number] Admin: 08/22/19 17:50 Dose: 300 mg Documented by: [id number] Admin: 08/22/19 14:28 Dose: 300 mg Documented by: [id number] Fluticasone Propionate (Flonase) 2 sprays NA DAILY ALYSA Stop: 09/22/19 08:59 Last Admin: 08/23/19 08:26 Dose: 2 sprays Documented by: [id number] Hydralazine HCl (Hydralazine Hcl) 10 mg IV Q6H PRN PRN Reason: htn Stop: 09/22/19 12:14 Last Admin: 08/23/19 12:29 Dose: 10 mg Documented by: [id number] Insulin Aspart (Novolog Flexpen) 0 units SC ACHS ALYSA Stop: 09/21/19 11:59 Last Admin: 08/23/19 20:55 Dose: Not Given Documented by: [id number] Cosigned by: [id number] Admin: 08/23/19 18:09 Dose: 6 units Documented by: [id number] Cosigned by: [id number] Admin: 08/23/19 12:14 Dose: 4 units Documented by: [id number] Cosigned by: [id number] Admin: 08/23/19 08:23 Dose: 4 units Documented by: [id number] Cosigned by: [id number] Admin: 08/22/19 21:08 Dose: Not Given Documented by: [id number] Cosigned by: [id number] Admin: 08/22/19 17:10 Dose: 6 units Documented by: [id number] Cosigned by: [id number] Admin: 08/22/19 14:29 Dose: Not Given Documented by: [id number] Cosigned by: [id number] Insulin Glargine (Lantus Solostar Pen) 0 units SC BID ALYSA; Protocol Stop: 09/21/19 20:59 Last Admin: 08/23/19 20:54 Dose: Not Given Documented by: [id number] Cosigned by: [id number] Admin: 08/23/19 09:17 Dose: Not Given Documented by: [id number] Cosigned by: [id number] Admin: 08/22/19 21:07 Dose: Not Given Documented by: [id number] Cosigned by: [id number] Levothyroxine Sodium (Synthroid) 100 mcg PO DAILYBB ALYSA Stop: 09/22/19 06:29 Last Admin: 08/23/19 05:26 Dose: 100 mcg Documented by: [id number] Losartan Potassium (Cozaar) 100 mg PO DAILY ALYSA Stop: 09/22/19 08:59 Last Admin: 08/23/19 08:37 Dose: 100 mg Documented by: [id number] Metoprolol Tartrate (Lopressor) 25 mg PO BID ALYSA Stop: 09/21/19 20:59 Last Admin: 08/23/19 20:37 Dose: 25 mg Documented by: [id number] Admin: 08/23/19 08:23 Dose: 25 mg Documented by: [id number] Admin: 08/22/19 20:40 Dose: 25 mg Documented by: [id number] Miscellaneous (Order Awaiting Action) 1 ea N/A QS ALYSA Stop: 09/21/19 15:59 Last Admin: 08/23/19 17:20 Dose: Not Given Documented by: [id number] Admin: 08/23/19 08:37 Dose: Not Given Documented by: [id number] Admin: 08/22/19 23:27 Dose: Not Given Documented by: [id number] Admin: 08/22/19 16:17 Dose: Not Given Documented by: [id number] Montelukast Sodium (Singulair) 10 mg PO PM ALYSA Stop: 09/21/19 20:59 Last Admin: 08/23/19 20:37 Dose: 10 mg Documented by: [id number] Admin: 08/22/19 20:41 Dose: 10 mg Documented by: [id number] Pantoprazole Sodium (Protonix) 40 mg PO QAM ALYSA Stop: 09/22/19 08:59 Last Admin: 08/23/19 08:22 Dose: 40 mg Documented by: [id number] Saccharomyces Boulardii (Florastor) 250 mg PO BID ALYSA Stop: 09/21/19 20:59 Last Admin: 08/23/19 20:37 Dose: 250 mg Documented by: [id number] Admin: 08/23/19 08:22 Dose: 250 mg Documented by: [id number] Admin: 08/22/19 20:40 Dose: 250 mg Documented by: [id number] Fluticasone/Salmeterol (Advair Diskus 250/50) 1 puffs INH BID ALYSA Stop: 09/21/19 20:59 Last Admin: 08/23/19 20:37 Dose: 1 puffs Documented by: [id number] Admin: 08/23/19 08:25 Dose: 1 puffs Documented by: [id number] Admin: 08/22/19 20:38 Dose: 1 puffs Documented by: [id number] Discontinued Medications Sterile Water 50 ml/Tranexamic Acid 5,000 mg/BARCODE IDENTIFIER 1 ea 0 ml MT ONE ONE Stop: 08/22/19 08:33 Last Admin: 08/22/19 09:14 Dose: 10 ml Documented by: [id number] Sterile Water 50 ml/Tranexamic Acid 5,000 mg/BARCODE IDENTIFIER 1 ea 0 ml MT ONE ONE Stop: 08/22/19 13:01 Last Admin: 08/22/19 14:10 Dose: 10 ml Documented by: [id number] Sodium Chloride (Nss 1000ml) 1,000 mls @ 999 mls/hr IV .Q1H1M ONE Stop: 08/22/19 09:22 Last Infusion: 08/22/19 09:30 Dose: 0 mls/hr Documented by: [id number] Admin: 08/22/19 08:29 Dose: 999 mls/hr Documented by: [id number] Phytonadione 2.5 mg/ Sodium (Chloride) 50.25 mls @ 100.5 mls/hr IV ONE ONE Stop: 08/22/19 09:00 Last Infusion: 08/22/19 09:30 Dose: 0 mls/hr Documented by: [id number] Admin: 08/22/19 08:59 Dose: 100.5 mls/hr Documented by: [id number] Furosemide 40 mg/ Syringe 4 mls @ 4 mls/min IV ONE ONE Stop: 08/22/19 13:43 Last Admin: 08/22/19 18:18 Dose: Not Given Documented by: [id number] Furosemide 80 mg/ Syringe 8 mls @ 4 mls/min IV NOW ONE Stop: 08/22/19 18:31 Last Admin: 08/22/19 18:50 Dose: 4 mls/min Documented by: [id number] Furosemide 80 mg/ Syringe 8 mls @ 4 mls/min IV ONE ONE Stop: 08/23/19 06:01 Last Admin: 08/23/19 06:04 Dose: 4 mls/min Documented by: [id number] Nitroglycerin (Nitro-Bid 2%) 1 inch EXT NOW STA Stop: 08/22/19 18:08 Last Admin: 08/22/19 18:33 Dose: 1 inch Documented by: [id number] Nitroglycerin (Nitro-Bid 2%) Confirm Administered Dose 18 inch .ROUTE .STK-MED ONE Stop: 08/22/19 18:12 Last Admin: 08/22/19 18:14 Dose: Not Given Documented by: [id number] Potassium Chloride (Klor-Con M20) 60 meq PO NOW ONE Stop: 08/23/19 08:01 Last Admin: 08/23/19 08:37 Dose: 60 meq Documented by: [id number] Potassium Chloride (Klor-Con M20) 40 meq PO TODAY@1200 ONE Stop: 08/23/19 12:01 Last Admin: 08/23/19 12:15 Dose: 40 meq Documented by: [id number] Potassium Chloride (Klor-Con M20) 40 meq PO ONE ONE Stop: 08/23/19 19:01 Last Admin: 08/23/19 18:11 Dose: 40 meq Documented by: [id number] Medical Decision Making Differential Diagnosis Differential diagnosis includes etiologies such as vasovagal event, infection, hypoglycemia, electrolyte abnormalities, cardiac sources, hemorrhagic anemia, intracerebral event, toxicologic, neurologic, as well as others were entertained. Medical Records Attestation: I reviewed the patient's medical records. Home Medications Current Medication List: was personally reviewed by me Laboratory Data Attestation: I reviewed the patient's lab results. Result diagrams: 08/23/19 14:45 08/23/19 14:45 Lab Results 08/22/19 08/22/19 08/22/19 Range/Units 07:26 07:27 07:27 WBC 9.59 (4.8-10.8) K/uL RBC 3.61 L (4.2-5.4) M/uL Hgb 9.3 L (12.0-16.0) g/dL Hct 29.7 L (37-47) % MCV 82.3 (80-100) fL MCH 25.8 (25-34) pg MCHC 31.3 L (32-36) g/dL RDW Std Deviation 51.1 H (36.4-46.3) fL RDW Coeff of Stoney 16.8 H (11.5-14.5) % Plt Count 324 (130-400) K/uL MPV 9.8 (7.4-10.4) fL Immature Gran % (Auto) 0.2 % Neut % (Auto) 89.8 % Lymph % (Auto) 7.5 % [place] % (Auto) 2.3 % Eos % (Auto) 0.0 % Baso % (Auto) 0.2 % Immature Gran # (Auto) 0.02 (0.00-0.02) K/uL Neut # (Auto) 8.61 H (1.4-6.5) K/uL Lymph # (Auto) 0.72 L (1.2-3.4) K/uL [place] # (Auto) 0.22 (0.11-0.59) K/uL Eos # (Auto) 0.00 (0-0.5) K/uL Baso # (Auto) 0.02 (0-0.2) K/uL PT 23.8 H (9.0-12.0) Seconds INR 2.5 H (0.9-1.1) APTT 32.8 H (21.0-31.0) Seconds PTT Ratio 1.2 Sodium 139 (136-145) mmol/L Potassium 4.0 (3.5-5.1) mmol/L Chloride 103 (98-107) mmol/L Carbon Dioxide 26 (21-32) mmol/L Anion Gap 10.0 (3-11) BUN 28 H (7-18) mg/dl Creatinine 0.88 (0.6-1.2) mg/dl Est Cr Clr Drug Dosing 52.5 ml/min Est GFR ( Amer) 71.9 Est GFR (Non-Af Amer) 62.1 BUN/Creatinine Ratio 31.6 H (10-20) Glucose 152 H (70-99) mg/dl Calcium 9.1 (8.5-10.1) mg/dl Total Bilirubin 0.3 (0.2-1) mg/dl AST 10 L (15-37) U/L ALT 17 (12-78) U/L Alkaline Phosphatase 48 (45-117) U/L Total Protein 6.5 (6.4-8.2) gm/dl Albumin 3.2 L (3.4-5.0) gm/dl Globulin 3.3 (2.5-4.0) gm/dl Albumin/Globulin Ratio 1.0 (0.9-2) Blood Type Antibody Screen Crossmatch 08/22/19 Range/Units 07:38 WBC (4.8-10.8) K/uL RBC (4.2-5.4) M/uL Hgb (12.0-16.0) g/dL Hct (37-47) % MCV (80-100) fL MCH (25-34) pg MCHC (32-36) g/dL RDW Std Deviation (36.4-46.3) fL RDW Coeff of Stoney (11.5-14.5) % Plt Count (130-400) K/uL MPV (7.4-10.4) fL Immature Gran % (Auto) % Neut % (Auto) % Lymph % (Auto) % [place] % (Auto) % Eos % (Auto) % Baso % (Auto) % Immature Gran # (Auto) (0.00-0.02) K/uL Neut # (Auto) (1.4-6.5) K/uL Lymph # (Auto) (1.2-3.4) K/uL [place] # (Auto) (0.11-0.59) K/uL Eos # (Auto) (0-0.5) K/uL Baso # (Auto) (0-0.2) K/uL PT (9.0-12.0) Seconds INR (0.9-1.1) APTT (21.0-31.0) Seconds PTT Ratio Sodium (136-145) mmol/L Potassium (3.5-5.1) mmol/L Chloride (98-107) mmol/L Carbon Dioxide (21-32) mmol/L Anion Gap (3-11) BUN (7-18) mg/dl Creatinine (0.6-1.2) mg/dl Est Cr Clr Drug Dosing ml/min Est GFR ( Amer) Est GFR (Non-Af Amer) BUN/Creatinine Ratio (10-20) Glucose (70-99) mg/dl Calcium (8.5-10.1) mg/dl Total Bilirubin (0.2-1) mg/dl AST (15-37) U/L ALT (12-78) U/L Alkaline Phosphatase (45-117) U/L Total Protein (6.4-8.2) gm/dl Albumin (3.4-5.0) gm/dl Globulin (2.5-4.0) gm/dl Albumin/Globulin Ratio (0.9-2) Blood Type B Positive Antibody Screen NEGATIVE Crossmatch See Detail Imaging Data Radiologist's Impression: Radiology results as stated below per my review and the radiologist's interpretation: XR chest 1V portable CLINICAL HISTORY: 79 years-old Female presenting with Syncope. TECHNIQUE: Portable upright AP view of the chest was obtained. COMPARISON: 03/01/2016. FINDINGS: Atherosclerosis of the aortic arch. Cardiac silhouette mildly enlarged. Mitral annular calcification. No focal opacity. No large effusion or pneumothorax. Degenerative changes of the thoracic spine. Upper abdomen normal. IMPRESSION: 1. Mild cardiomegaly without evidence of volume overload or congestive change. No other convincing evidence of acute cardiopulmonary disease. Electronically signed by: Richmond Cast M.D. 08/22/2019 7:[address] head/brain wo con CLINICAL HISTORY: 79 years-old Female presenting with Syncopal event on coumadin. TECHNIQUE: Multidetector CT imaging of the head was performed without the use of intravenous contrast. IV contrast: None. One or more dose lowering techniques were used consistent with the principles of ALARA (as low as reasonably achievable), including automatic exposure control, mA or kV adjustment to individual patient size, and/or use of iterative reconstruction. COMPARISON: 06/07/2011. CT DOSE (mGy.cm): The estimated cumulative dose is 537.48 mGy.cm. 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 Ventricles and sulci normal in size. No hemorrhage. Periventricular and subcortical white matter hypoattenuation, nonspecific but likely indicative of chronic small vessel ischemic change. Possible old lacunar infarct in the left basal ganglia. No acute territorial infarct. No mass effect or midline shift. No extra-axial fluid collection. Paranasal sinuses and mastoid air cells clear. Calvarium intact. IMPRESSION: 1. Chronic small vessel ischemic change. No acute intracranial abnormality. Electronically signed by: Richmond Cast M.D. 08/22/2019 7:54 AM ECG Data Attestation: I personally reviewed and interpreted this ECG as follows: Indication: syncope Rate (beats per minute): 73 Rhythm: normal sinus Findings: + other (QTC 464, Possible previous anterior infarct); no PAC, no PVC, no ST depression, no ST elevation and no acute ischemic change Blood Pressure Blood Pressure Findings: Elevated blood pressure Blood Pressure Disposition: further management by hospitalist MDM Narrative This patient was evaluated and appeared to be in no significant distress. IV access was obtained and laboratory work was drawn. The patient was placed on the satellite project site monitor and found to be in a normal sinus rhythm. TXA oral rinse was given to the patient by mouth. Hemoglobin is 9.3. This is slightly lower t wilkinson patient's baseline. INR is noted to be 2.5. CT scan of the head reveals no evidence of acute intracranial abnormality, chest x-ray is clear. EKG reveals no evidence of acute ischemia. Patient was given 2.5 mg of IV vitamin K. A type and cross was ordered. Orthostatic vital signs reveal a significant drop in systolic pressure to 70 upon standing. IV hydration was initiated. The hospitalist service was consulted. Patient was informed of the findings and plan. She will be evaluated for further management. Impression & Plan Anemia, Postoperative bleeding from mouth, Orthostatic syncope, Chronic anticoagulation Discharge Plan Visit Data *Final* Discharge Date/Time: 08/22/19 10:18 Chief Complaint: Bleeding Stated Complaint: mouth bleeding s/p dental procedure ED Provider: Elisa Kwon Discharge Problem: Anemia, Postoperative bleeding from mouth, Orthostatic syncope, Chronic anticoagulation Patient Disposition: Admitted As Inpatient Discharge Instructions Interventions: ED Discharge Assessment Last Done: 08/22/19 10:18 Discharge Problem: Anemia Qualifiers: Anemia type: unspecified type Qualified Code(s): D64.9 - Anemia, unspecified The scribe's documentation has been prepared under my direction and personally reviewed by me in its entirety. I confirm that the note above accurately reflects all work, treatment, procedures, and medical decision making performed by me.
[2019-08-22] MEDS ORDERED: NITROGLYCERIN 2% OINTMENT 30GM TUBE EXT STA (18:07)
[2019-08-22] MEDS ORDERED: NITROGLYCERIN 2% OINTMENT 30GM TUBE ONE (18:11)
[2019-08-22] MEDS ORDERED: FUROSEMIDE 80 MG in SYRINGE 0 ML IV ONE (18:30)
[2019-08-22] MEDS: FLUTICASONE/SALMETEROL 250/50 (ADVAIR) 14 PUFF/1 INHALER INH SCH (20:38)
[2019-08-22] MEDS: METOPROLOL TARTRATE 25 MG TAB PO SCH (20:40)
[2019-08-22] MEDS: SACCHAROMYCES BOULARDII 250 MG CAP PO SCH (20:40)
[2019-08-22] MEDS: MONTELUKAST SODIUM 10 MG TABLET PO SCH (20:41)
[2019-08-22] MEDS: INSULIN GLARGINE SOLOSTAR 100 UNITS/ML 3 ML PEN SC SCH (21:07)
[2019-08-23 00:29] LABS: Hematocrit (blood only) 29.7 % (37-47)
[2019-08-23 00:40] LABS: INR 1.1 (0.9-1.1); Prothrombin Time 11.4 Seconds (9.0-12.0)
[2019-08-23] MEDS: ACETAMINOPHEN 325 MG TAB PO PRN (00:53)
[2019-08-23] MEDS: LEVOTHYROXINE SODIUM 100 MCG TABLET PO SCH (05:26)
[2019-08-23] MEDS: CLINDAMYCIN HCL 150 MG CAP PO SCH ×3 (05:26→18:09)
[2019-08-23] MEDS ORDERED: FUROSEMIDE 80 MG in SYRINGE 0 ML IV ONE (06:00)
[2019-08-23 06:38] LABS: Hematocrit (blood only) 31.4 % (37-47); Hemoglobin 10.5 g/dL (12.0-16.0); Mean Corpuscular Hemoglobin 27.8 pg (25-34); Mean Corpuscular Hgb Conc 33.4 g/dL (32-36); Mean Corpuscular Volume 83.1 fL (80-100); Mean Platelet Volume 9.8 fL (7.4-10.4); Platelet Count 260 K/uL (130-400); RDW Standard Deviation 48.4 fL (36.4-46.3); Red Blood Count 3.78 M/uL (4.2-5.4); White Blood Count 7.46 K/uL (4.8-10.8)
[2019-08-23 06:52] LABS: Estimated Average Glucose 123 mg/dl; Hemoglobin A1C 5.9 % (4.5-5.6)
[2019-08-23 07:10] LABS: BUN Creatinine Ratio 23.8 (10-20); Calcium 9.1 mg/dl (8.5-10.1); Creatinine Clr Calc Pharmacy 54.1 ml/min; Est GFR (African American) 77.2; Est GFR (Non-African American) 66.6; Potassium 2.6 mmol/L (3.5-5.1)
[2019-08-23] MEDS ORDERED: POTASSIUM CHLORIDE 20 MEQ TABCR PO ONE ×3 (08:00→19:00)
[2019-08-23] MEDS: ATORVASTATIN 20 MG TAB PO SCH (08:22)
[2019-08-23] MEDS: SACCHAROMYCES BOULARDII 250 MG CAP PO SCH ×2 (08:22→20:37)
[2019-08-23] MEDS: PANTOprazole 40 MG TAB PO SCH (08:22)
[2019-08-23] MEDS: INSULIN ASPART 100 UNITS/ML 3 ML PEN SC SCH ×4 (08:23→20:55)
[2019-08-23] MEDS: METOPROLOL TARTRATE 25 MG TAB PO SCH ×2 (08:23→20:37)
[2019-08-23] MEDS: FLUTICASONE/SALMETEROL 250/50 (ADVAIR) 14 PUFF/1 INHALER INH SCH ×2 (08:25→20:37)
[2019-08-23] MEDS: FLUTICASONE PROPIONATE NA SPR 16 GM BTL SCH (08:26)
[2019-08-23] MEDS: LOSARTAN POTASSIUM 50 MG TAB PO SCH (08:37)
[2019-08-23] MEDS: INSULIN GLARGINE SOLOSTAR 100 UNITS/ML 3 ML PEN SC SCH ×2 (09:17→20:54)
--- NOTE | 2019-08-23 09:50 | Hospitalist Progress Note ---
Date of Service August 23, 2019 Assessment & Plan (1) Postoperative bleeding from mouth: This is an 79-year-old female who has significant past medical history of PAF anticoagulated on warfarin, T2DM, HTN, HLD, hypothyroidism, DEMARIO, asthma, CKD stage III, GERD, glaucoma who presents to [facility] ED secondary to bleeding from mouth and near syncopal episode prior to arrival. Pt had root canal 1 week ago, 2 days later tooth extraction Returned to dentist yesterday due to oral pain, tooth fragments removed Since yesterday pt has been having bleeding from area of dental work in clots with near syncopal episode In ED H/H 9.3 29.7, baseline hemoglobin is 12.6 PT/INR 2.5 ECG reveals normal sinus rhythm Hemodynamically patient was stable, but she was orthostatic blood pressure lying 136/69 and dropped to 71/44 with standing, heart rate 96 with standing In ED patient received 2.5 mg IV vitamin K along with 1 L of IVF Further received oral mouth rinse tranexamic acid Oral bleeding has ceased INR reversed, now 1.1 Received IV lasix 80mg x 2 due to HTN, volume overload in setting of transfusion received 4 units FFP; 2 units PRBC H/H stable at 10.5/31.4 repeat H/H at 3pm Pt oral surgeon is Dr. Ozuna in [place], [place] ( Per case management Dr. 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 [employer] if bleeding persists [phone] continue tea bag/ICE prn to area (2) Near syncope: likely in setting of hypovolemia and bleeding uncertain if true syncope sx have resolved (3) Hypokalemia: K 2.6 60meq ordered x 1 this a.m., additional 40meq x 1 at noon repeat K at 3pm (4) PAF (paroxysmal atrial fibrillation): Pt reamins in NSR hold warfarin, ASA given active oral bleeding INR reversed continue metoprolol for rate/rhythm control chadsvasc 8 (5) T2DM (type 2 diabetes mellitus): Last A1C 7.4 12/2018 A1C now 5.9 - likely not accurate given transfusions yesterday hold metformin lantus/novolog per protocol (6) HTN (hypertension): blood pressure significantly elevated this morning, likely in setting of held BP meds and significant volume transfused 80mg IV lasix given last evening and this morning monitor resume losartan and continue metoprolol hold oral lasix for now, will resume on discharge monitor (7) HLD (hyperlipidemia): Continue statin (8) DEMARIO (obstructive sleep apnea): Cpap at HS (9) Asthma: no acute exacerbation continue ICS inhaler, prn albuterol (10) CKD (chronic kidney disease) stage 3, GFR 30-59 ml/min: BUN/Cr 20/0.83 monitor (11) Hypothyroidism: continue levothyroxine (12) GERD (gastroesophageal reflux disease): continue PPI (13) Primary open angle glaucoma: continue lataprost (14) DVT prophylaxis: SCD/TEDS hold warfarin in setting of acute bleeding from mouth, pt in NSR Disposition: Discharge to home either today or tomorrow, PT/OT orders placed Follow up: PCP Dr. Cisneros upon discharge along with appropriate follow up with Dr. Williamson - oral surgeon Patient was seen and examined in collaboration with Dr. Arenas, please see addendum Subjective Patient was seen and examined in room 244-1. Follow up ABL anemia 2/2 to previous tooth extraction on warfarin. Pt much improved this morning. Bleeding from mouth has subsided. Feels jittery this morning. Denies and dizziness, lightheaded, f/c/s, chest pain, sob, n/v/d, abdominal pain. Has ruiz cath in place. Did have episodes of SOB last evening after receiving PRBC and plasma. Improved with administration of IV lasix. Appetite is good. Offers no acute concerns or complaints. Review of Systems Review of Systems: All systems reviewed & are unremarkable except as noted in HPI & below Physical Exam Physical Exam: Gen: WD/WN, elderly female, less pale this morning, NAD, A&O x3 HEENT: Normocephalic, atraumatic, conjunctivae moist, sclerae anicteric, mucous membranes moist. No bleeding from L lower mouth socket, tea bag in place Lung: Clear to Auscultation bilaterally, no wheezes/rales/rhonchi Heart: Regular rate, regular rhythm, no murmurs, rubs, or gallops Abdomen: Soft, NT, ND +BS x 4 Extremities: No edema, SCD/TEDS in place Skin: Warm, no rash, negative turgor. Results & Data Vital Signs (Past 12 Hours) Vital Signs Temp Pulse Pulse Resp BP BP Pulse Ox 08/23/19 06:45 36.7 C 74 19 211/75 H 95 08/23/19 04:06 36.6 C 72 19 191/83 H 94 08/23/19 00:25 81 08/22/19 23:52 37.1 C 19 95 08/22/19 23:08 37.1 C 79 18 144/86 H 96 08/22/19 22:12 37.3 C 80 20 132/64 95 Laboratory Results Short CBC 08/22/19 08/23/19 08/23/19 Range/Units 12:59 00:03 06:24 WBC 7.46 (4.8-10.8) K/uL Hgb 7.7 L 10.0 L 10.5 L (12.0-16.0) g/dL Hct 25.0 L 29.7 L 31.4 L (37-47) % Plt Count 260 (130-400) K/uL BMP 08/23/19 06:24 Sodium 139 Potassium 2.6 L D Chloride 100 Carbon Dioxide 30 BUN 20 H Creatinine 0.83 Glucose 140 H Calcium 9.1 Medications Administered Acetaminophen (Tylenol) 650 mg PO Q4H PRN PRN Reason: Pain or Fever Stop: 09/21/19 11:48 Last Admin: 08/23/19 00:53 Dose: 650 mg Documented by: [id number] Atorvastatin Calcium (Lipitor) 20 mg PO DAILY [facility] Stop: 09/22/19 08:59 Last Admin: 08/23/19 08:22 Dose: 20 mg Documented by: [id number] Clindamycin HCl (Cleocin) 300 mg PO Q6 [facility] Stop: 09/01/19 11:59 Last Admin: 08/23/19 05:26 Dose: 300 mg Documented by: [id number] Admin: 08/22/19 23:27 Dose: 300 mg Documented by: [id number] Admin: 08/22/19 17:50 Dose: 300 mg Documented by: [id number] Admin: 08/22/19 14:28 Dose: 300 mg Documented by: [id number] Fluticasone Propionate (Flonase) 2 sprays NA DAILY [facility] Stop: 09/22/19 08:59 Last Admin: 08/23/19 08:26 Dose: 2 sprays Documented by: [id number] Insulin Aspart (Novolog Flexpen) 0 units SC ACHS ALYSA Stop: 09/21/19 11:59 Last Admin: 08/23/19 08:23 Dose: 4 units Documented by: [id number] Cosigned by: [id number] Admin: 08/22/19 21:08 Dose: Not Given Documented by: [id number] Cosigned by: [id number] Admin: 08/22/19 17:10 Dose: 6 units Documented by: [id number] Cosigned by: [id number] Admin: 08/22/19 14:29 Dose: Not Given Documented by: [id number] Cosigned by: [id number] Insulin Glargine (Lantus Solostar Pen) 0 units SC BID ALYSA; Protocol Stop: 09/21/19 20:59 Last Admin: 08/23/19 09:17 Dose: Not Given Documented by: [id number] Cosigned by: [id number] Admin: 08/22/19 21:07 Dose: Not Given Documented by: [id number] Cosigned by: [id number] Levothyroxine Sodium (Synthroid) 100 mcg PO DAILYBB ALYSA Stop: 09/22/19 06:29 Last Admin: 08/23/19 05:26 Dose: 100 mcg Documented by: [id number] Losartan Potassium (Cozaar) 100 mg PO DAILY ALYSA Stop: 09/22/19 08:59 Last Admin: 08/23/19 08:37 Dose: 100 mg Documented by: [id number] Metoprolol Tartrate (Lopressor) 25 mg PO BID ALYSA Stop: 09/21/19 20:59 Last Admin: 08/23/19 08:23 Dose: 25 mg Documented by: [id number] Admin: 08/22/19 20:40 Dose: 25 mg Documented by: [id number] Miscellaneous (Order Awaiting Action) 1 ea N/A QS ALYSA Stop: 09/21/19 15:59 Last Admin: 08/23/19 08:37 Dose: Not Given Documented by: [id number] Admin: 08/22/19 23:27 Dose: Not Given Documented by: [id number] Admin: 08/22/19 16:17 Dose: Not Given Documented by: [id number] Montelukast Sodium (Singulair) 10 mg PO PM ALYSA Stop: 09/21/19 20:59 Last Admin: 08/22/19 20:41 Dose: 10 mg Documented by: [id number] Pantoprazole Sodium (Protonix) 40 mg PO QAM ALYSA Stop: 09/22/19 08:59 Last Admin: 08/23/19 08:22 Dose: 40 mg Documented by: [id number] Saccharomyces Boulardii (Florastor) 250 mg PO BID ALYSA Stop: 09/21/19 20:59 Last Admin: 08/23/19 08:22 Dose: 250 mg Documented by: [id number] Admin: 08/22/19 20:40 Dose: 250 mg Documented by: [id number] Fluticasone/Salmeterol (Advair Diskus 250/50) 1 puffs INH BID ALYSA Stop: 09/21/19 20:59 Last Admin: 08/23/19 08:25 Dose: 1 puffs Documented by: [id number] Admin: 08/22/19 20:38 Dose: 1 puffs Documented by: [id number] Discontinued Medications Sterile Water 50 ml/Tranexamic Acid 5,000 mg/[employer]IER 1 ea 0 ml MT ONE ONE Stop: 08/22/19 08:33 Last Admin: 08/22/19 09:14 Dose: 10 ml Documented by: [id number] Sterile Water 50 ml/Tranexamic Acid 5,000 mg/BARCODE IDENTIFIER 1 ea 0 ml MT ONE ONE Stop: 08/22/19 13:01 Last Admin: 08/22/19 14:10 Dose: 10 ml Documented by: [id number] Sodium Chloride (Nss 1000ml) 1,000 mls @ 999 mls/hr IV .Q1H1M ONE Stop: 08/22/19 09:22 Last Infusion: 08/22/19 09:30 Dose: 0 mls/hr Documented by: [id number] Admin: 08/22/19 08:29 Dose: 999 mls/hr Documented by: [id number] Phytonadione 2.5 mg/ Sodium (Chloride) 50.25 mls @ 100.5 mls/hr IV ONE ONE Stop: 08/22/19 09:00 Last Infusion: 08/22/19 09:30 Dose: 0 mls/hr Documented by: [id number] Admin: 08/22/19 08:59 Dose: 100.5 mls/hr Documented by: [id number] Furosemide 40 mg/ Syringe 4 mls @ 4 mls/min IV ONE ONE Stop: 08/22/19 13:43 Last Admin: 08/22/19 18:18 Dose: Not Given Documented by: [id number] Furosemide 80 mg/ Syringe 8 mls @ 4 mls/min IV NOW ONE Stop: 08/22/19 18:31 Last Admin: 08/22/19 18:50 Dose: 4 mls/min Documented by: [id number] Furosemide 80 mg/ Syringe 8 mls @ 4 mls/min IV ONE ONE Stop: 08/23/19 06:01 Last Admin: 08/23/19 06:04 Dose: 4 mls/min Documented by: [id number] Nitroglycerin (Nitro-Bid 2%) 1 inch EXT NOW STA Stop: 08/22/19 18:08 Last Admin: 08/22/19 18:33 Dose: 1 inch Documented by: [id number] Nitroglycerin (Nitro-Bid 2%) Confirm Administered Dose 18 inch .ROUTE .STK-MED ONE Stop: 08/22/19 18:12 Last Admin: 08/22/19 18:14 Dose: Not Given Documented by: [id number] Potassium Chloride (Klor-Con M20) 60 meq PO NOW ONE Stop: 08/23/19 08:01 Last Admin: 08/23/19 08:37 Dose: 60 meq Documented by: [id number] ECG Rate (beats per minute): 67 Rhythm: normal sinus
[2019-08-23] MEDS ORDERED: HydrALAZINE HCL 20 MG/ML VIAL IV PRN (12:08)
[2019-08-23 15:07] LABS: Hematocrit (blood only) 33.3 % (37-47); Hemoglobin 10.9 g/dL (12.0-16.0)
[2019-08-23] MEDS ORDERED: WATER, STERILE 50 ML, TRANEXAMIC ACID ORAL RINSE 5,000 MG, BARCODE IDENTIFIER 1 EA MT PRN (17:14)
[2019-08-23] MEDS ORDERED: WATER, STERILE 50 ML, TRANEXAMIC ACID ORAL RINSE 5,000 MG, BARCODE IDENTIFIER 1 EA MT SCH (17:30)
[2019-08-23] MEDS: MONTELUKAST SODIUM 10 MG TABLET PO SCH (20:37)
[2019-08-24] MEDS: CLINDAMYCIN HCL 150 MG CAP PO SCH ×4 (00:05→17:17)
[2019-08-24] MEDS: LEVOTHYROXINE SODIUM 100 MCG TABLET PO SCH (06:14)
[2019-08-24 06:44] LABS: Mean Corpuscular Hemoglobin 27.4 pg (25-34); Mean Corpuscular Hgb Conc 32.4 g/dL (32-36); Mean Corpuscular Volume 84.8 fL (80-100); Mean Platelet Volume 10.2 fL (7.4-10.4); Platelet Count 281 K/uL (130-400); RDW Coefficient of Variation 16.6 % (11.5-14.5); RDW Standard Deviation 51.1 fL (36.4-46.3); Red Blood Count 4.01 M/uL (4.2-5.4); White Blood Count 8.51 K/uL (4.8-10.8)
[2019-08-24 07:21] LABS: BUN Creatinine Ratio 22.1 (10-20); Calcium 8.8 mg/dl (8.5-10.1); Creatinine Clr Calc Pharmacy 45.9 ml/min; Est GFR (African American) 63.1; Est GFR (Non-African American) 54.5; Potassium 3.7 mmol/L (3.5-5.1)
[2019-08-24] MEDS: LOSARTAN POTASSIUM 50 MG TAB PO SCH (08:12)
[2019-08-24] MEDS: FLUTICASONE/SALMETEROL 250/50 (ADVAIR) 14 PUFF/1 INHALER INH SCH ×2 (08:12→20:54)
[2019-08-24] MEDS: FLUTICASONE PROPIONATE NA SPR 16 GM BTL SCH (08:12)
[2019-08-24] MEDS: ATORVASTATIN 20 MG TAB PO SCH (08:12)
[2019-08-24] MEDS: SACCHAROMYCES BOULARDII 250 MG CAP PO SCH ×2 (08:13→20:54)
[2019-08-24] MEDS: METOPROLOL TARTRATE 25 MG TAB PO SCH ×2 (08:13→20:54)
[2019-08-24] MEDS: INSULIN ASPART 100 UNITS/ML 3 ML PEN SC SCH ×4 (08:14→20:50)
[2019-08-24] MEDS: INSULIN GLARGINE SOLOSTAR 100 UNITS/ML 3 ML PEN SC SCH ×2 (08:15→20:55)
[2019-08-24] MEDS: PANTOprazole 40 MG TAB PO SCH (08:48)
[2019-08-24] MEDS: VENLAFAXINE HCL XR 37.5 MG CAPXR PO SCH (09:44)
--- NOTE | 2019-08-24 09:49 | Hospitalist Progress Note ---
Date of Service August 24, 2019 Assessment & Plan (1) Postoperative bleeding from mouth: This is an 79-year-old female who has significant past medical history of PAF anticoagulated on warfarin, T2DM, HTN, HLD, hypothyroidism, DEMARIO, asthma, CKD stage III, GERD, glaucoma who presents to [facility] ED secondary to bleeding from mouth and near syncopal episode prior to arrival. Pt had root canal 1 week ago, 2 days later tooth extraction Returned to dentist yesterday due to oral pain, tooth fragments removed Since yesterday pt has been having bleeding from area of dental work in clots with near syncopal episode In ED H/H 9.3 29.7, baseline hemoglobin is 12.6 PT/INR 2.5 ECG reveals normal sinus rhythm Hemodynamically patient was stable, but she was orthostatic blood pressure lying 136/69 and dropped to 71/44 with standing, heart rate 96 with standing In ED patient received 2.5 mg IV vitamin K along with 1 L of IVF Further received oral mouth rinse tranexamic acid Oral bleeding has ceased INR reversed, now 1.1 Received IV lasix 80mg x 2 due to HTN, volume overload in setting of transfusion received 4 units FFP; 2 units PRBC H/H stable at 11.0/34.0 repeat H/H at 3pm Pt oral surgeon is Dr. Ozuna in [place], [place] ( Per case management Dr. Berman is donor services specialist for [facility] if bleeding persists [phone]) continue ICE prn to area ruiz removed - pt voiding Seen and eval by PT - ambulated 200ft w/o dizziness. Still gets occasional dizziness upon standing to be seen and evaluated by Dr. Nicolas (2) Near syncope: likely in setting of hypovolemia and bleeding uncertain if true syncope sx have resolved (3) Hypokalemia: K 2.6 yesterday received 140meq total in KCL yesterday today 3.7 (4) PAF (paroxysmal atrial fibrillation): Pt remains in NSR hold warfarin, ASA given active oral bleeding INR reversed continue metoprolol for rate/rhythm control Dr. Clay bravo with resuming warfarin chadsvasc 5 (5) T2DM (type 2 diabetes mellitus): Last A1C 7.4 12/2018 A1C now 5.9 - likely not accurate given transfusions yesterday hold metformin lantus/novolog per protocol resume metformin at discharge (6) HTN (hypertension): blood pressure remains labile, but improved this a.m. 160/84 required PRN hydralazine x 1 yesterday continue losartan, metoprolol hold oral lasix for now given complains of lightheadedness monitor (7) HLD (hyperlipidemia): Continue statin (8) DEMARIO (obstructive sleep apnea): Cpap at HS (9) Asthma: no acute exacerbation continue ICS inhaler, prn albuterol (10) CKD (chronic kidney disease) stage 3, GFR 30-59 ml/min: BUN/Cr 22/0.98 monitor (11) Hypothyroidism: continue levothyroxine (12) GERD (gastroesophageal reflux disease): continue PPI (13) Primary open angle glaucoma: continue lataprost (14) DVT prophylaxis: SCD/TEDS hold warfarin in setting of acute bleeding from mouth, pt in NSR Disposition: Discharge to home either today or tomorrow, PT/OT orders placed Follow up: PCP Dr. Cisneros upon discharge along with appropriate follow up with Dr. Williamson - oral surgeon Patient was seen and examined in collaboration with Dr. Arenas, please see addendum Supervising Physician Co-Signing Physician Notes Attending Addendum: care coordinated with ARELI Archer please refer to her notes for full details, I agree with her notes patient seen and examined, records reviewed by myself as well on exam, patient seen sitting up in bed, having lunch Comfortable, not in distress, in good spirits She feels improved overall Ambulating the hallways for the first time today, no dizziness, shortness of breath, chest pain No recurrence of bleeding today no other symptoms VS noted and reviewed oriented x 3, not in distress, speaks in sentences with no effort nor accessory muscle use Oral cavity: No signs of active bleeding, site of dental procedure with no signs of active bleeding normal rate, regular rhythm, no murmurs clear breath sounds bilaterally non distended, soft, nontender no bipedal edema, erythema, warmth no neuro deficits WBC 8.5 Hg 11.0 Crea 0.98 ASSESSMENT AND PLAN Acute blood loss anemia secondary to bleeding from dental procedure In the setting of chronic Coumadin use Hemoglobin 11 after blood transfusion No recurrence of bleeding so far Resume Coumadin tomorrow Orthostatic hypotension Improving Hold Lasix other diagnoses and plan of care as per ARELI Archer notes Wilton Nicolas MD Subjective Patient was seen and examined in room 244-1. Follow up ABL anemia 2/2 to previous tooth extraction on warfarin. Pt feels better this morning. Has mild pain at extraction site, but bleeding very minimal overnight. "My socket feels mushy." Sitting up at bedside eating breakfast. Denies f/c/s, dizziness, lightheaded, EUBANKS, chest pain, sob, n/v/d. Continues to have ruiz in place which will be removed this morning. Worked with PT/OT yesterday, but did have lightheadedness with standing so she had minimal walking. Overall slept better last night. Review of Systems Review of Systems: All systems reviewed & are unremarkable except as noted in HPI & below Physical Exam Physical Exam: Gen: WD/WN, elderly female, less pale this morning, NAD, A&O x3 HEENT: Normocephalic, atraumatic, conjunctivae moist, sclerae anicteric, mucous membranes moist. No bleeding from L lower mouth socket, but does appear inflamed Lung: Clear to Auscultation bilaterally, no wheezes/rales/rhonchi Heart: Regular rate, regular rhythm, no murmurs, rubs, or gallops Abdomen: Soft, NT, ND +BS x 4 Extremities: No edema Skin: Warm, no rash, negative turgor. Results & Data Vital Signs (Past 12 Hours) Vital Signs Temp Pulse Pulse Resp BP BP Pulse Ox 08/24/19 08:00 160/84 H 08/24/19 07:39 36.4 C L 67 18 195/67 H 96 08/24/19 04:00 36.8 C 73 18 136/70 97 08/24/19 00:00 74 08/23/19 23:05 36.7 C 72 18 96/64 L 96
[2019-08-24] MEDS: ACETAMINOPHEN 325 MG TAB PO PRN (17:21)
[2019-08-24] MEDS: MONTELUKAST SODIUM 10 MG TABLET PO SCH (20:54)
[2019-08-25] MEDS: CLINDAMYCIN HCL 150 MG CAP PO SCH ×3 (00:29→11:16)
[2019-08-25] MEDS: LEVOTHYROXINE SODIUM 100 MCG TABLET PO SCH (06:24)
[2019-08-25 06:48] LABS: Basophils # (auto) 0.03 K/uL (0-0.2); Basophils % (auto) 0.4 %; Eosinophils # (auto) 0.17 K/uL (0-0.5); Eosinophils % (auto) 2.4 %; Hematocrit (blood only) 33.3 % (37-47); Hemoglobin 10.7 g/dL (12.0-16.0); Lymphocytes # (auto) 1.45 K/uL (1.2-3.4); Lymphocytes % (auto) 20.6 %; Mean Corpuscular Hemoglobin 27.2 pg (25-34); Mean Corpuscular Hgb Conc 32.1 g/dL (32-36); Mean Corpuscular Volume 84.7 fL (80-100); Mean Platelet Volume 10.1 fL (7.4-10.4); Monocytes % (auto) 11.3 %; Neutrophils % (auto) 65.3 %; Platelet Count 289 K/uL (130-400); RDW Coefficient of Variation 16.6 % (11.5-14.5); RDW Standard Deviation 50.9 fL (36.4-46.3); Red Blood Count 3.93 M/uL (4.2-5.4); White Blood Count 7.05 K/uL (4.8-10.8)
[2019-08-25 06:55] LABS: Prothrombin Time 10.5 Seconds (9.0-12.0)
[2019-08-25] MEDS: FLUTICASONE/SALMETEROL 250/50 (ADVAIR) 14 PUFF/1 INHALER INH SCH (08:18)
[2019-08-25] MEDS: LOSARTAN POTASSIUM 50 MG TAB PO SCH (08:18)
[2019-08-25] MEDS: METOPROLOL TARTRATE 25 MG TAB PO SCH (08:18)
[2019-08-25] MEDS: VENLAFAXINE HCL XR 37.5 MG CAPXR PO SCH (08:18)
[2019-08-25] MEDS: PANTOprazole 40 MG TAB PO SCH (08:18)
[2019-08-25] MEDS: ATORVASTATIN 20 MG TAB PO SCH (08:18)
[2019-08-25] MEDS: FLUTICASONE PROPIONATE NA SPR 16 GM BTL SCH (08:19)
[2019-08-25] MEDS: SACCHAROMYCES BOULARDII 250 MG CAP PO SCH (08:19)
[2019-08-25] MEDS: INSULIN GLARGINE SOLOSTAR 100 UNITS/ML 3 ML PEN SC SCH (08:19)
[2019-08-25] MEDS: INSULIN ASPART 100 UNITS/ML 3 ML PEN SC SCH ×2 (08:20→12:03)
--- NOTE | 2019-08-25 09:56 | Hospitalist Progress Note ---
Date of Service August 25, 2019 Assessment & Plan (1) Postoperative bleeding from mouth: This is an 79-year-old female who has significant past medical history of PAF anticoagulated on warfarin, T2DM, HTN, HLD, hypothyroidism, DEMARIO, asthma, CKD stage III, GERD, glaucoma who presents to [facility] ED secondary to bleeding from mouth and near syncopal episode prior to arrival. Pt had root canal 1 week ago, 2 days later tooth extraction Returned to dentist yesterday due to oral pain, tooth fragments removed Since yesterday pt has been having bleeding from area of dental work in clots with near syncopal episode In ED H/H 9.3 29.7, baseline hemoglobin is 12.6 PT/INR 2.5 ECG reveals normal sinus rhythm Hemodynamically patient was stable, but she was orthostatic blood pressure lying 136/69 and dropped to 71/44 with standing, heart rate 96 with standing In ED patient received 2.5 mg IV vitamin K along with 1 L of IVF Further received oral mouth rinse tranexamic acid Oral bleeding has ceased INR reversed, now 1.1 Received IV lasix 80mg x 2 due to HTN, volume overload in setting of transfusion received 4 units FFP; 2 units PRBC H/H stable at 10.7/33.[address] Dr[address] Ozuna in [place], [place] ( Per case management Dr. Berman is service station manager for [facility] if bleeding persists [phone]) continue ICE prn to area Seen by PT/OT, recommend home PT (2) Near syncope: likely in setting of hypovolemia and bleeding uncertain if true syncope sx have resolved (3) Hypokalemia: K 2.6 yesterday received 140meq total in KCL yesterday today 3.7 (4) PAF (paroxysmal atrial fibrillation): Pt remains in NSR hold warfarin, ASA given active oral bleeding INR reversed continue metoprolol for rate/rhythm control Dr. Clay bravo with resuming warfarin chadsvasc 5 will resume previous regimen, pt to follow up Adalid Nunn, Clinical Pharmacist in clinic 08/29 @ 11am (5) T2DM (type 2 diabetes mellitus): Last A1C 7.4 12/2018 A1C now 5.9 - likely not accurate given transfusions yesterday hold metformin lantus/novolog per protocol resume metformin at discharge (6) HTN (hypertension): blood pressure remains labile, 194/86, pt received a.m. medications - will have nurse recheck required PRN hydralazine x 1 yesterday continue losartan, metoprolol resume lasix monitor (7) HLD (hyperlipidemia): Continue statin (8) DEMARIO (obstructive sleep apnea): Cpap at HS (9) Asthma: no acute exacerbation continue ICS inhaler, prn albuterol (10) CKD (chronic kidney disease) stage 3, GFR 30-59 ml/min: BUN/Cr 22/0.98 monitor (11) Hypothyroidism: continue levothyroxine (12) GERD (gastroesophageal reflux disease): continue PPI (13) Primary open angle glaucoma: continue lataprost (14) DVT prophylaxis: SCD/TEDS hold warfarin in setting of acute bleeding from mouth, pt in NSR Disposition: Discharge to home today Follow up: PCP Dr. Cisneros upon discharge along with appropriate follow up with Dr. Williamson - oral surgeon Patient was seen and examined in collaboration with Dr. Nicolas, please see addendum Supervising Physician Co-Signing Physician Notes Attending Addendum: care coordinated with ARELI Angeles please refer to her notes for full details, I agree with her notes patient seen and examined, records reviewed by myself as well on exam, patient seen resting in bed, comfortable, in good spirits states she feels better overall denies recurrence of bleeding, no dizziness no other symptoms VS noted and reviewed oriented x 3, not in distress, speaks in sentences with no effort nor accessory muscle use normal rate, regular rhythm, no murmurs clear breath sounds bilaterally non distended, soft, nontender no bipedal edema, erythema, warmth no neuro deficits WBC 7.05 Hg 10.7 ASSESSMENT AND PLAN Acute blood loss anemia secondary to bleeding from dental procedure In the setting of chronic Coumadin use Hemoglobin stable after blood transfusion No recurrence of bleeding Resume Coumadin close ff up with Oral Surgeon, PCP, Coumadin Clinic Orthostatic hypotension Improved, asymptomatic other diagnoses and plan of care as per ARELI Angeles. notes Wilton Nicolas MD Subjective Patient was seen and examined in room 244-1. Follow up ABL anemia 2/2 to previous tooth extraction on warfarin. Overall feels well this morning. Had better night sleep. Denies any further lightheaded, dizziness or oral bleeding. Socket still feels, "mushy." Denies f/c/s, chest pain, sob, cough, n/v/d, abdominal pain. Passing urine adequately. Denies swelling. Appetite is good. Ready to go home today. Review of Systems Review of Systems: All systems reviewed & are unremarkable except as noted in HPI & below Physical Exam 2 Physical Exam: Gen: WD/WN, F, NAD, A&O x3 HEENT: Normocephalic, atraumatic, conjunctivae moist, sclerae anicteric, mucous membranes moist. L lower socket no bleeding, healing Lung: Clear to Auscultation bilaterally, no wheezes/rales/rhonchi Heart: Regular rate, regular rhythm, no murmurs, rubs, or gallops Abdomen: Soft, NT, ND +BS x 4 Extremities: No edema Skin: Warm, no rash, negative turgor. Results & Data Vital Signs (Past 12 Hours) Vital Signs Temp Pulse Pulse Resp BP Pulse Ox 08/25/19 07:16 36.8 C 78 18 194/86 H 96 08/25/19 03:53 36.5 C 66 20 164/82 H 96 08/25/19 00:00 180/82 H 08/24/19 23:47 36.8 C 68 16 194/68 H 98 Laboratory Results Short CBC 08/25/19 Range/Units 06:30 WBC 7.05 (4.8-10.8) K/uL Hgb 10.7 L (12.0-16.0) g/dL Hct 33.3 L (37-47) % Plt Count 289 (130-400) K/uL Medications Administered Acetaminophen (Tylenol) 650 mg PO Q4H PRN PRN Reason: Pain or Fever Stop: 09/21/19 11:48 Last Admin: 08/24/19 17:21 Dose: 650 mg Documented by: [id number] Admin: 08/23/19 00:53 Dose: 650 mg Documented by: [id number] Atorvastatin Calcium (Lipitor) 20 mg PO DAILY [facility] Stop: 09/22/19 08:59 Last Admin: 08/25/19 08:18 Dose: 20 mg Documented by: [id number] Admin: 08/24/19 08:12 Dose: 20 mg Documented by: [id number] Admin: 08/23/19 08:22 Dose: 20 mg Documented by: [id number] Clindamycin HCl (Cleocin) 300 mg PO Q6 ALYSA Stop: 09/01/19 11:59 Last Admin: 08/25/19 06:24 Dose: 300 mg Documented by: [id number] Admin: 08/25/19 00:29 Dose: 300 mg Documented by: [id number] Admin: 08/24/19 17:17 Dose: 300 mg Documented by: [id number] Admin: 08/24/19 12:08 Dose: 300 mg Documented by: [id number] Admin: 08/24/19 06:14 Dose: 300 mg Documented by: [id number] Admin: 08/24/19 00:05 Dose: 300 mg Documented by: [id number] Admin: 08/23/19 18:09 Dose: 300 mg Documented by: [id number] Admin: 08/23/19 12:15 Dose: 300 mg Documented by: [id number] Admin: 08/23/19 05:26 Dose: 300 mg Documented by: [id number] Admin: 08/22/19 23:27 Dose: 300 mg Documented by: [id number] Admin: 08/22/19 17:50 Dose: 300 mg Documented by: [id number] Admin: 08/22/19 14:28 Dose: 300 mg Documented by: [id number] Fluticasone Propionate (Flonase) 2 sprays NA DAILY ALYSA Stop: 09/22/19 08:59 Last Admin: 08/25/19 08:19 Dose: 2 sprays Documented by: [id number] Admin: 08/24/19 08:12 Dose: 2 sprays Documented by: [id number] Admin: 08/23/19 08:26 Dose: 2 sprays Documented by: [id number] Hydralazine HCl (Hydralazine Hcl) 10 mg IV Q6H PRN PRN Reason: htn Stop: 09/22/19 12:14 Last Admin: 08/23/19 12:29 Dose: 10 mg Documented by: [id number] Insulin Aspart (Novolog Flexpen) 0 units SC ACHS ALYSA Stop: 09/21/19 11:59 Last Admin: 08/25/19 08:20 Dose: 4 units Documented by: [id number] Cosigned by: [id number] Admin: 08/24/19 20:50 Dose: Not Given Documented by: [id number] Cosigned by: [id number] Admin: 08/24/19 17:11 Dose: 3 units Documented by: [id number] Cosigned by: [id number] Admin: 08/24/19 12:08 Dose: 4 units Documented by: [id number] Cosigned by: [id number] Admin: 08/24/19 08:14 Dose: 4 units Documented by: [id number] Cosigned by: [id number] Admin: 08/23/19 20:55 Dose: Not Given Documented by: [id number] Cosigned by: [id number] Admin: 08/23/19 18:09 Dose: 6 units Documented by: [id number] Cosigned by: [id number] Admin: 08/23/19 12:14 Dose: 4 units Documented by: [id number] Cosigned by: [id number] Admin: 08/23/19 08:23 Dose: 4 units Documented by: [id number] Cosigned by: [id number] Admin: 08/22/19 21:08 Dose: Not Given Documented by: [id number] Cosigned by: [id number] Admin: 08/22/19 17:10 Dose: 6 units Documented by: [id number] Cosigned by: [id number] Admin: 08/22/19 14:29 Dose: Not Given Documented by: [id number] Cosigned by: [id number] Insulin Glargine (Lantus Solostar Pen) 0 units SC BID ALYSA; Protocol Stop: 09/21/19 20:59 Last Admin: 08/25/19 08:19 Dose: Not Given Documented by: [id number] Cosigned by: [id number] Admin: 08/24/19 20:55 Dose: Not Given Documented by: [id number] Cosigned by: [id number] Admin: 08/24/19 08:15 Dose: Not Given Documented by: [id number] Cosigned by: [id number] Admin: 08/23/19 20:54 Dose: Not Given Documented by: [id number] Cosigned by: [id number] Admin: 08/23/19 09:17 Dose: Not Given Documented by: [id number] Cosigned by: [id number] Admin: 08/22/19 21:07 Dose: Not Given Documented by: [id number] Cosigned by: [id number] Levothyroxine Sodium (Synthroid) 100 mcg PO DAILYBB ALYSA Stop: 09/22/19 06:29 Last Admin: 08/25/19 06:24 Dose: 100 mcg Documented by: [id number] Admin: 08/24/19 06:14 Dose: 100 mcg Documented by: [id number] Admin: 08/23/19 05:26 Dose: 100 mcg Documented by: [id number] Losartan Potassium (Cozaar) 100 mg PO DAILY ALYSA Stop: 09/22/19 08:59 Last Admin: 08/25/19 08:18 Dose: 100 mg Documented by: [id number] Admin: 08/24/19 08:12 Dose: 100 mg Documented by: [id number] Admin: 08/23/19 08:37 Dose: 100 mg Documented by: [id number] Metoprolol Tartrate (Lopressor) 25 mg PO BID ALYSA Stop: 09/21/19 20:59 Last Admin: 08/25/19 08:18 Dose: 25 mg Documented by: [id number] Admin: 08/24/19 20:54 Dose: 25 mg Documented by: [id number] Admin: 08/24/19 08:13 Dose: 25 mg Documented by: [id number] Admin: 08/23/19 20:37 Dose: 25 mg Documented by: [id number] Admin: 08/23/19 08:23 Dose: 25 mg Documented by: [id number] Admin: 08/22/19 20:40 Dose: 25 mg Documented by: [id number] Miscellaneous (Order Awaiting Action) 1 ea N/A QS ALYSA Stop: 09/21/19 15:59 Last Admin: 08/25/19 08:18 Dose: Not Given Documented by: [id number] Admin: 08/25/19 00:33 Dose: Not Given Documented by: [id number] Admin: 08/24/19 16:11 Dose: Not Given Documented by: [id number] Admin: 08/24/19 08:13 Dose: Not Given Documented by: [id number] Admin: 08/24/19 01:41 Dose: Not Given Documented by: [id number] Admin: 08/23/19 17:20 Dose: Not Given Documented by: [id number] Admin: 08/23/19 08:37 Dose: Not Given Documented by: [id number] Admin: 08/22/19 23:27 Dose: Not Given Documented by: [id number] Admin: 08/22/19 16:17 Dose: Not Given Documented by: [id number] Montelukast Sodium (Singulair) 10 mg PO PM ALYSA Stop: 09/21/19 20:59 Last Admin: 08/24/19 20:54 Dose: 10 mg Documented by: [id number] Admin: 08/23/19 20:37 Dose: 10 mg Documented by: [id number] Admin: 08/22/19 20:41 Dose: 10 mg Documented by: [id number] Pantoprazole Sodium (Protonix) 40 mg PO QAM [facility] Stop: 09/22/19 08:59 Last Admin: 08/25/19 08:18 Dose: 40 mg Documented by: [id number] Admin: 08/24/19 08:48 Dose: 40 mg Documented by: [id number] Admin: 08/23/19 08:22 Dose: 40 mg Documented by: [id number] Saccharomyces Boulardii (Florastor) 250 mg PO BID ALYSA Stop: 09/21/19 20:59 Last Admin: 08/25/19 08:19 Dose: 250 mg Documented by: [id number] Admin: 08/24/19 20:54 Dose: 250 mg Documented by: [id number] Admin: 08/24/19 08:13 Dose: 250 mg Documented by: [id number] Admin: 08/23/19 20:37 Dose: 250 mg Documented by: [id number] Admin: 08/23/19 08:22 Dose: 250 mg Documented by: [id number] Admin: 08/22/19 20:40 Dose: 250 mg Documented by: [id number] Fluticasone/Salmeterol (Advair Diskus 250/50) 1 puffs INH BID [facility] Stop: 09/21/19 20:59 Last Admin: 08/25/19 08:18 Dose: 1 puffs Documented by: [id number] Admin: 08/24/19 20:54 Dose: 1 puffs Documented by: [id number] Admin: 08/24/19 08:12 Dose: 1 puffs Documented by: [id number] Admin: 08/23/19 20:37 Dose: 1 puffs Documented by: [id number] Admin: 08/23/19 08:25 Dose: 1 puffs Documented by: [id number] Admin: 08/22/19 20:38 Dose: 1 puffs Documented by: [id number] Venlafaxine HCl (Effexor Extended Release) 37.5 mg PO DAILY [facility] Stop: 09/23/19 08:59 Last Admin: 08/25/19 08:18 Dose: 37.5 mg Documented by: [id number] Admin: 08/24/19 09:44 Dose: 37.5 mg Documented by: [id number] Discontinued Medications Sterile Water 50 ml/Tranexamic Acid 5,000 mg/[employer] 1 ea 0 ml MT ONE ONE Stop: 08/22/19 08:33 Last Admin: 08/22/19 09:14 Dose: 10 ml Documented by: [id number] Sterile Water 50 ml/Tranexamic Acid 5,000 mg/[employer]IER 1 ea 0 ml MT ONE ONE Stop: 08/22/19 13:01 Last Admin: 08/22/19 14:10 Dose: 10 ml Documented by: [id number] Sodium Chloride (Nss 1000ml) 1,000 mls @ 999 mls/hr IV .Q1H1M ONE Stop: 08/22/19 09:22 Last Infusion: 08/22/19 09:30 Dose: 0 mls/hr Documented by: [id number] Admin: 08/22/19 08:29 Dose: 999 mls/hr Documented by: [id number] Phytonadione 2.5 mg/ Sodium (Chloride) 50.25 mls @ 100.5 mls/hr IV ONE ONE Stop: 08/22/19 09:00 Last Infusion: 08/22/19 09:30 Dose: 0 mls/hr Documented by: [id number] Admin: 08/22/19 08:59 Dose: 100.5 mls/hr Documented by: [id number] Furosemide 40 mg/ Syringe 4 mls @ 4 mls/min IV ONE ONE Stop: 08/22/19 13:43 Last Admin: 08/22/19 18:18 Dose: Not Given Documented by: [id number] Furosemide 80 mg/ Syringe 8 mls @ 4 mls/min IV NOW ONE Stop: 08/22/19 18:31 Last Admin: 08/22/19 18:50 Dose: 4 mls/min Documented by: [id number] Furosemide 80 mg/ Syringe 8 mls @ 4 mls/min IV ONE ONE Stop: 08/23/19 06:01 Last Admin: 08/23/19 06:04 Dose: 4 mls/min Documented by: [id number] Nitroglycerin (Nitro-Bid 2%) 1 inch EXT NOW STA Stop: 08/22/19 18:08 Last Admin: 08/22/19 18:33 Dose: 1 inch Documented by: [id number] Nitroglycerin (Nitro-Bid 2%) Confirm Administered Dose 18 inch .ROUTE .STK-MED ONE Stop: 08/22/19 18:12 Last Admin: 08/22/19 18:14 Dose: Not Given Documented by: [id number] Potassium Chloride (Klor-Con M20) 60 meq PO NOW ONE Stop: 08/23/19 08:01 Last Admin: 08/23/19 08:37 Dose: 60 meq Documented by: [id number] Potassium Chloride (Klor-Con M20) 40 meq PO TODAY@1200 ONE Stop: 08/23/19 12:01 Last Admin: 08/23/19 12:15 Dose: 40 meq Documented by: [id number] Potassium Chloride (Klor-Con M20) 40 meq PO ONE ONE Stop: 08/23/19 19:01 Last Admin: 08/23/19 18:11 Dose: 40 meq Documented by: [id number]
[2019-08-25] MEDS ORDERED: FUROSEMIDE 20 MG TAB PO SCH (10:15)
--- NOTE | 2019-08-25 10:26 | Discharge Summary ---
Date of Service August 25, 2019 Admission HPI Per Admitting Provider This is an 79-year-old female who has significant past medical history of PAF anticoagulated on warfarin, T2DM, HTN, HLD, hypothyroidism, DEMARIO, asthma, CKD stage III, GERD, glaucoma who presents to [facility] ED secondary to bleeding from mouth and near syncopal episode prior to arrival. Approximately 1 week ago patient had a root canal performed in 2 days later had tooth extraction on left side. Patient is on warfarin for PAF as well as aspirin. She was not instructed to discontinue these prior to procedure. She was having increased pain in the left side of mouth therefore went back to her dentist yesterday. According to patient tooth fragments were removed from area. Since seeing dentist yesterday she has been having bleeding from mouth, described as "clots." Bleeding has been persistent since yesterday evening soaking through numerous gauze pads. Earlier this morning when she got up to go to the bathroom she felt very lightheaded and dizzy and therefore lowered herself to the ground and laid on the floor. Her significant other help assist her back to bed. When she got up a second time to move her bowels she again felt very dizzy and lightheaded requiring her to lay on the floor. She denies true syncope and recalls all events, but was reported from significant other that she may have passed out. Denies hitting her head. Currently lying in bed she denies any lightheadedness or dizziness, f/c/s, chest pain, sob, palpitations, cough, n/v/d/, abdominal pain, change in bowel or urinary habits. Appetite has otherwise been stable. Admission Exam Per Admitting Provider Constitutional: WD/WN, elderly, F, Pale, vitals as above, NAD, sitting up in bed, pleasant, conversing easily Head: Normocephalic, Atraumatic Eyes: PERRL, conjunctivae normal, anicteric sclerae ENMT: external ear and nose normal, oropharynx normal, + left lower socket site bleeding, +dried blood on mouth Neck: trachea midline, no thyromegaly normal visual inspection Respiratory: normal respiratory effort, lungs clear to auscultation, no wheeze, rales, rhonchi. Normal insp/exp effort, no accessory muscle use Cardiovascular: RRR, no murmur, trace to +1 pretibial edema Vessels: no JVD or carotid bruit Chest: normal inspection of chest Abdomen: normal bowel sounds, soft, nontender, no hepatosplenomegaly Musculoskeletal: no cyanosis or clubbing, extremities motor strength 5/5 Skin: no rashes, warm, mild turgor Neurologic: PERRL, EOMI, accommodation nl, no face palsy, no dysarthria CN's II-XI intact bilaterally and moves all extremities Psychiatric: A+Ox3, euthymic affect Lymphatic: no cervical or axillary lymphadenopathy : deferred Principal Diagnosis Acute blood loss anemia S/P root canal and tooth extraction with complication of post procedure bleeding Therapeutic INR - reversed in setting of active bleeding HTN Hypokalemia Near Syncope/Lightheadedness Discharge Exam Gen: WD/WN, F, NAD, A&O x3 HEENT: Normocephalic, atraumatic, conjunctivae moist, sclerae anicteric, mucous membranes moist. L lower socket no bleeding, healing Lung: Clear to Auscultation bilaterally, no wheezes/rales/rhonchi Heart: Regular rate, regular rhythm, no murmurs, rubs, or gallops Abdomen: Soft, NT, ND +BS x 4 Extremities: No edema Skin: Warm, no rash, negative turgor. Discharge Data Allergies Allergy/AdvReac Type Severity Reaction Status Date / Time Penicillins Allergy Mild Verified 08/22/19 07:28 broccoli Allergy Unknown GAS Unverified 08/22/19 07:28 grapefruit Allergy Unknown BRONCHITIS Unverified 08/22/19 07:28 mold Allergy Unknown asthma Verified 08/22/19 07:28 symptoms orange Allergy Unknown BRONCHITIS Unverified 08/22/19 07:28 paroxetine Allergy Unknown ANAPHYLAXIS Unverified 08/22/19 07:28 pollen extracts Allergy Unknown asthma Verified 08/22/19 07:28 symptoms crab AdvReac Unknown diarrhea Verified 08/22/19 07:28 peanut AdvReac Unknown gas/bloatin Unverified 08/22/19 07:28 g Dust Allergy Unknown asthma Uncoded 08/22/19 07:28 symptoms BEANS AdvReac Unknown gas and Uncoded 08/22/19 07:28 bloating with consuption of green or kidneys beans PEANUTS AdvReac Unknown gas/bloatin Uncoded 08/22/19 07:28 g Consultations 08/22/19 08:31 ED Decision to Admit Stat 08/22/19 11:49 Consult Case Management - Discharge Planning Routine Ordered Studies CXR: IMPRESSION: 1. Mild cardiomegaly without evidence of volume overload or congestive change. No other convincing evidence of acute cardiopulmonary disease. Head CT: IMPRESSION: 1. Chronic small vessel ischemic change. No acute intracranial abnormality. Hospital Course (1) Postoperative bleeding from mouth: This is an 79-year-old female who has significant past medical history of PAF anticoagulated on warfarin, T2DM, HTN, HLD, hypothyroidism, DEMARIO, asthma, CKD stage III, GERD, glaucoma who presents to [facility] ED secondary to bleeding from mouth and near syncopal episode prior to arrival. Patient had a root canal 1 week prior to admission and a subsequent tooth extraction 2 days later. On the day prior to admission she returned to oral s urgeon Dr. Williamson office secondary to increased pain at the pocket site. Was told she had a dry socket and had, "tooth fragments removed. On that evening patient developed significant bleeding from socket site with blood coming out and, "clots." In ED patient remained hemodynamically stable but did have obvious orthostatic vital signs blood pressure lying 136/69 and dropped to 71/44 with standing, heart rate 96 with standing. Initial hemoglobin was 9.3/29.7, but hemoglobin did drop to 7.7. She is on warfarin for PAF and her INR was 2.5. She received 2.5 mg IV vitamin K and 4 units of FFP. Her INR was reversed to 1.1. She further required 2 units of PRBC. Due to significant volume she did receive Lasix 80 mg IV 08/22 with an additional dose on 08/23. She was hypokalemic with potassium of 2.6 requiring a total of 140meq potassium repletion. Her blood pressure was labile throughout admission and at times was significantly hypertensive requiring a one-time dose of IV hydralazine. On day of discharge her hemoglobin had stabilized to 10.7. She was seen and evaluated by PT/OT. She medically stabilized to discharge home. Follow up with Dr. Williamson oral surgeon office on 08/28/19 had already been arranged. She continues on oral clindamycin for dental infection which will continue until evaluated by Dr. Williamson. (2) Near syncope: likely in setting of hypovolemia and bleeding uncertain if true syncope sx have resolved (3) Hypokalemia: K 2.6 yesterday received 140meq total in KCL yesterday 3.7 at discharge (4) PAF (paroxysmal atrial fibrillation): resume warfarin spoke with Adalid Nunn, continue current regimen continue metoprolol remained in NSR throughout admission PT/INR and follow up with Adalid Nunn on 08/29/19 (5) T2DM (type 2 diabetes mellitus): lantus/novolog while inpt resume metformin (6) HTN (hypertension): blood pressure 140/84 at discharge continue metoprolol, losartan, lasix (7) HLD (hyperlipidemia): Continue statin (8) DEMARIO (obstructive sleep apnea): Cpap at HS (9) Asthma: no acute exacerbation continue ICS inhaler, prn albuterol (10) CKD (chronic kidney disease) stage 3, GFR 30-59 ml/min: BUN/Cr 22/0.98 monitor (11) Hypothyroidism: continue levothyroxine (12) GERD (gastroesophageal reflux disease): continue PPI (13) Primary open angle glaucoma: continue latanoprost (14) DVT prophylaxis: Total Time Total Time Spent Total Time Spent (In Minutes): 60 minutes Total Time Includes: Examination of the Patient, Discharge Planning, Medication Reconciliation, Communication With Other Providers and Other Discharge Plan Discharge Items Patient Disposition: Home - Self-Care Reason For Visit: BLEEDING FROM MOUTH, ON WARFARIN,ANEMIA Discharge Diagnosis: Bleeding from Mouth Anemia requiring transfusion due to blood loss Anticoagulated on Warfarin - reversed High Blood Pressure Low Potassium Condition on Discharge: Good Activity: As commented below Activity Comment: Activity as tolerated. Take your time changing positions Lifting: Gradually increase as tolerated Bathing: No limitations Driving/Machine Use: No limitations Weightbearing: Full weightbearing Non-emergency contact: Primary Care Provider and Surgeon Call non-emergency contact if: you have any medication questions, your symptoms worsen, your pain is worsening, you have a fever, your rectal temperature is above 100.4, your wound has increased redness, your wound has increased drainage and your wound pain has increased Follow-up/Referrals: Vitaly Williamson [Other] - 08/28/19 Nunn, Adalid [Other] - 08/29/19 11:00 am Kumar Salinas MD [Primary Care Provider] - 08/29/19 11:20 am Diet: Carb Consistent or DM2 Ambulatory Orders: Complete Blood Count no Diff (Routine) Timeframe: 5 Days Location: Determined by Patient Ordered By: Staci Sanchez Prothrombin Time INR (Routine) Timeframe: 5 Days Location: Determined by Patient Ordered By: Staci Tena Attending Provider Instructions: MEDICATION CHANGES: None, resume all medications as previously prescribed. Restart your coumadin on evening of discharge 08/25/19 . Continue current regimen of warfarin 7.5mg Wednesday//Wednesday; 5mg all other days. SUMMARY OF TEST RESULTS: On admission your blood counts were low due to being on warfarin and the bleeding from your mouth. Your hemoglobin was as low as 7.7. You received 2 units of blood. Your hemoglobin at discharge was 10.7 (normal is 12.0-16.0). Your potassium was low during your stay, 2.6 (normal 3.5-5.1). We gave you potassium replacement and at discharge it was 3.7. PT/INR on admission was 2.5 After being reversed was 1.1 PENDING TEST RESULTS: None RECOMMENDATIONS FOR FOLLOW-UP: You were admitted to [facility] due to bleeding from your mouth and anemia. You required 2 units of blood. Your PT/INR (warfarin level) was reversed due to the bleeding. Aspirin and warfarin was held during your admission. The bleeding from your mouth stopped, and you have appropriate follow up with Dr. Williamson as outpatient. You had episodes of lightheadedness before you were admitted and during admission due to your blood counts being low. You remain on antibiotic, Clindamycin, as prescribed by Dr. Williamson for dental infection. Continue antibiotic as prescribed by Dr. Williamson until follow up with him. Recommend taking probiotic with antibiotic. Continue all other medications as prescribed. Monitor your blood pressure at home, if consistent > 160/90 please contact your PCP . Keep all scheduled appointments with your Primary care provider, Pharmacist managing coumadin, and Dentist. You were given prescription for blood work, please get this done on 08/29. OTHER INSTRUCTIONS: Seek medical attention if you have: * temperature above 101 * chest pain or trouble breathing * abdominal pain, nausea, vomiting * diarrhea, dark stools or bloody stools * any unanswered questions or concerns Call 911 if symptoms are severe. Please take good care of yourself. Call if you have any questions or problems. You can reach a [facility] hospitalist on duty at [facility] 24 hours a day by calling [phone]. My pager number # is [phone]. Staci Sanchez PA-C Pending Studies at Discharge: No Studies:: Chest Xray: no acute abnormality Head CT: no acute abnormality Stand-Alone Forms: My [facility] Medications and DC Order Prescriptions: New Florastor 250 mg Capsule 250 mg PO BID 14 Days Qty: 28 RF: 0 Continued atorvastatin 20 mg tablet 20 mg PO DAILY RF: 0 clindamycin HCl 300 mg capsule 300 mg PO TID RF: 0 levothyroxine 50 mcg tablet 100 mcg PO QAM RF: 0 montelukast 10 mg tablet 10 mg PO DAILY RF: 0 multivitamin Tablet 1 tab PO DAILY RF: 0 latanoprost 0.005 % drops 1 drp ophthalmic (eye) UD RF: 0 fluticasone propion-salmeterol [Wixela Inhub] 250-50 mcg/dose blister with device 1 inh inhalation BID RF: 0 warfarin 7.5 mg Tablet 7.5 mg PO TUTHSA RF: 0 metformin 850 mg tablet 850 mg PO BID RF: 0 aspirin 81 mg Tablet,Delayed Release (Dr/Ec) 81 mg PO DAILY RF: 0 warfarin 5 mg tablet 5 mg PO SUMOWEFR RF: 0 furosemide 20 mg tablet 20 mg PO DAILY RF: 0 losartan 100 mg tablet 100 mg PO DAILY RF: 0 fluticasone propionate 50 mcg/actuation spray,suspension 2 spray intranasal DAILY RF: 0 coenzyme Q10 [CoQ-10] 100 mg Capsule 100 mg PO DAILY RF: 0 metoprolol tartrate 25 mg tablet 25 mg PO BID RF: 0 Dexilant 60 mg capsule,biphase delayed releas 60 mg PO DAILY RF: 0 cyanocobalamin (vitamin B-12) 1,000 mcg Capsule 1,000 mcg PO DAILY RF: 0 venlafaxine 37.5 mg Capsule,Extended Release 24hr 37.5 mg PO DAILY RF: 0 Discharge Orders: Discharge Order (Routine); Ordered 08/25/19 Ordered By: Staci Lackey/Other Patient Handouts: Saccharomyces boulardii Lactose Fructose Oral granules Admission Data Admit Date/Time: 08/22/19 09:11 Attending Provider: Wilton Nicolas Admit Provider: Rafael Arenas Primary Care Provider: Kumar Salinas Other Providers: Rafael Arenas Other Interventions: Discharge Summary Assessment (RN) Last Done: 08/25/19 10:51 DC Date/Time DO NOT enter until pt leaves facility: 08/25/19 12:59
== END 2019-08-25 12:59 | disposition home or self-care (01) | DRG 920 ==
LOC: ED 06:47 → 2S 09:11 → SUATTDRO 09:11 → 2S 10:18

== ENCOUNTER 2023-10-23 19:18 | Inpatient (IN) ==
--- OUTSIDE RECORDS SUMMARY | 2023-10-23 19:21 | External Medical Summary | Summary of Care ---
Author Name Unknown Organization [facility] Address [address] [place] [address] Phone [phone] Care Team Providers Care Vp Software Support Name Role Phone Kumar Salinas MD Primary Care Provider Reason for Visit * Reason Onset Date Comments Test Results 07/29/2023 Encounter Details Date Type Department Care Team Description 07/29/2023 Telephone Family Medicine [address] [phone] Kumar Salinas MD [address] [place] [address] [place] [address] Test Results Allergies Active Allergy Reactions Severity Noted Date Comments Crab (Diagnostic) 04/05/2018 Food (See Comments) 07/24/2015 Broccoli, beans, cauliflower - cause gas Grapefruit, oranges - cause bronchitis - positive skin test Paroxetine Hydrochloride 04/03/2009 Penicillins 04/03/2009 Blisters on hands Peanut-Containing Drug Products Abdominal pain Medium 07/24/2015 Gas, bloating documented as of this encounter (statuses as of 07/29/2023) Medications Medication Sig Dispensed Refills Start Date End Date Status ECOTRIN LOW STRENGTH 81 MG PO TBEC One pill by mouth once a day 100 5 04/03/2009 Active DEXILANT 60 MG PO CPDR 1 CAPSULE DAILY 30 Cap 5 11/09/2011 Active CENTRUM SILVER PO TABS 1 tab daily 0 01/11/2013 Active VITAMIN B-12 1000 MCG PO TABS 1 tab daily 0 01/11/2013 Active vitamin c (ASCORBIC ACID) 500 MG Tablet Take 1 Tablet by mouth in the morning. 0 Active Coenzyme Q10 (COQ-10) 100 MG CAPS Take 1 Cap by mouth daily. 0 Active MEDICAL INSTRUCTIONS Use as directed. CPAP during night as ordered 0 Active Cholecalciferol (VITAMIN D-3) 1000 units Capsule Take 1 Capsule by mouth in the morning. 0 Active Venlafaxine HCl ER 37.5 MG Oral Capsule Extended Release 24 Hour Take 1 Capsule by mouth in the morning. 0 Active Glucose Blood (ONETOUCH VERIO) STRP Test blood sugar once daily as directed; dx E11.9 100 Strip 3 06/28/2019 Active triamcinolone acetonide (ARISTOCORT) 0.1 % creamIndications:In trinsic eczema Apply topically to affected area 2 times a day. To affected area. 15 g 5 01/11/2020 Active Magnesium Oxide 400 (240 Mg) MG Tablet Take 1 Tablet by mouth in the morning. 0 Active zinc gluconate 50 MG Tablet Take 1 Tablet by mouth in the morning. 0 Active OneTouch Delica Lancets 30GIndications:DM type 2, 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% ([facility]) TEST BLOOD SUGAR ONCE DAILY DIRECTED DX E11.9 100 Each 3 10/07/2020 Active Albuterol Sulfate HFA 108 (90 Base) MCG/ACT Inhalation Aerosol Solution Inhale 2 Puffs by mouth every 4 hours as needed for Cough, Shortness of Breath or Wheezing (and with respiratory infections). 18 g 4 04/04/2021 Active Azelastine HCl 0.1 % Nasal Solution Administer 2 Sprays into each nostril every evening. 90 mL 3 04/04/2021 Active Klor-Con M10 10 MEQ Oral Tablet Extended Release Take 2 Tablets by mouth in the morning and 2 Tablets before bedtime. 0 03/13/2021 Active Wixela Inhub 250-50 MCG/DOSE Inhalation Aerosol Powder Breath Activated (Fluticasone-Salmet leah) INHALE 1 PUFF BY MOUTH 2 TIMES A DAY. 180 Each 3 01/12/2022 Active Lumigan 0.01 % Ophthalmic Solution Instill 1 Drop into both eyes at bedtime. 0 03/27/2022 Active Ketoconazole 2 % External Cream APPLY SPARINGLY TO AFFECTED AREA TWICE A DAY 0 05/18/2022 Active Ferrous Sulfate 325 (65 Fe) MG Oral Tablet (Feosol)Indications :Iron deficiency anemia, unspecified iron deficiency anemia type TAKE 1 TABLET BY MOUTH TWICE A DAY 180 Tablet 3 09/05/2022 Active Nystatin 818177 UNIT/GM External CreamIndications:Ca ndida infection Apply to affected area 2-3 times daily for 5 days 45 g 1 09/17/2022 Active Nystatin 927287 UNIT/GM External Powder (Nystop)Indications :Brunilda infection Apply topically to affected area 2 times a day . 30 g 1 09/17/2022 Active Fluticasone-Salmete rol 250-50 MCG/ACT Inhalation Aerosol Powder Breath Activated (Wixela Inhub) Inhale 1 Puff by mouth in the morning and 1 Puff before bedtime. 180 Each 3 01/11/2023 Active Fluticasone Propionate 50 MCG/ACT Nasal Suspension (Flonase) Administer 2 Sprays into each nostril every morning. 48 mL 3 01/20/2023 Active Metoprolol Tartrate 25 MG Oral Tablet (Lopressor)Indicati ons:Atherosclerosis of [place] coronary artery of [place] heart without angina pectoris,Paroxysmal atrial fibrillation (HCC),Essential hypertension with goal blood pressure less than 140/90 TAKE 1 TABLET BY MOUTH TWICE A DAY 180 Tablet 1 03/13/2023 Active Montelukast Sodium 10 MG Oral Tablet (Singulair)Indicati ons:Other seasonal allergic rhinitis Take 1 Tablet by mouth in the morning. 90 Tablet 3 04/07/2023 Active Chlorthalidone 25 MG Oral Tablet (Hygroton)Indicatio ns:Benign hypertension with CKD (chronic kidney disease), stage II TAKE 1 TABLET BY MOUTH EVERY DAY IN THE MORNING 90 Tablet 1 04/17/2023 Active Losartan Potassium 100 MG Oral Tablet (Cozaar)Indications :Benign hypertension with CKD (chronic kidney disease), stage II,Essential hypertension with goal blood pressure less than 140/90,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) TAKE 1 TABLET BY MOUTH EVERY DAY IN THE MORNING 90 Tablet 1 04/17/2023 Active Levothyroxine Sodium 100 MCG Oral Tablet (Levoxyl) TAKE 1 TABLET BY MOUTH DAILY AT LEAST 30 MINUTES PRIOR TO BREAKFAST OR OTHER MEDICATION 90 Tablet 1 05/12/2023 Active HYDROcodone-Acetami nophen 5-325 MG Oral TabletIndications:A rthralgia of shoulder, unspecified laterality Take 1 Tablet by mouth every 6 hours as needed for Pain, Mild. 10 Tablet 0 05/20/2023 Active Atorvastatin Calcium 20 MG Oral Tablet (Lipitor)Indication s:Paroxysmal atrial fibrillation (HCC),Dyslipidemia, goal LDL below 100,Atherosclerosis of [place] coronary artery of [place] heart without angina pectoris TAKE ONE PILL BY MOUTH AT BEDTIME 90 Tablet 1 06/13/2023 Active metFORMIN HCl 850 MG Oral Tablet (Glucophage)Indicat ions:Type 2 diabetes mellitus with hemoglobin A1c goal of less than 7.0% (HCC) TAKE 1 TABLET BY MOUTH TWICE A DAY WITH BREAKFAST AND DINNER 180 Tablet 1 07/16/2023 Active Oxybutynin Chloride ER 10 MG Oral Tablet Extended Release 24 Hour (Ditropan XL) Take 1 Tablet by mouth in the morning. 90 Tablet 3 07/16/2023 Active Cephalexin 500 MG Oral Capsule (Keflex)Indications :Dysuria Take 1 Capsule by mouth 2 times a day with morning and evening meals for 5 days. 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 DDD (degenerative disc disease), cervica l 03/03/2016 POAG (primary open-angle glaucoma) 03/19 Sleep apnea, obstructive 11/21/2012 Overview: 11/21/12 -- BIPAP set at 12/10 -- start auto BIPAP DME - [facility] ADVANCE DIRECTIVE INFORMATION 06/11/2011 Overview: No, Advance Directive brochure given to patient. - mailed 06/11/2011 Primary hypertension 10/17/2009 Overview: Modified per HTN protocol #16. Acquired hypothyroidism Gastroesophageal reflux disease 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 Atherosclerosis of [place] co ronary artery of [place] heart without angina pectoris Adjustment disorder with depressed mood documented as of this encounter (statuses as of 07/29/2023) Resolved Problems Problem Noted Date Resolved Date Type 2 diabetes mellitus wit h stage 3 chronic kidney disease, without long-term current use of insulin 05/22/2019 05/0 02/2021 CKD (chronic kidney disease), stage III 03/08/20 18 12/16/2018 Overview: Per CKD protocol #1 BMI 39.0-39.9,adult 08/30/2017 09/12/2018 Overview: 208 lbs Pres[place]ph[place] 08/27/2017 07/18/2018 Hypothyroidism 10/12/2016 10/12/2016 Postmenopausal atrophic vaginitis 07/27/2016 10/12/2016 Family history of breast cancer in mother 201507/18/2018 Postmenopausal atrophic vaginitis 05/13/2016 07/24/2019 Overview: Noted on scanned records. Blepharitis 03/19/2015 07/18/2018 Pseudophakia 03/19/2015 07/18/2018 Atrial fibrillation 01/17/2013 01/14/2017 Subjective tinnitus 09/23/2012 07/18/2018 Asthma, moderate persistent 09/23/201208/30 Genetic Sleep Disorder Research Other*[id number] 09/12/2012 06/25/2016 Obesity, Class II, BMI 35-39.9, isolated (see ac tual BMI) 05/12/2010 05/22/2013 Overview: Per Obesity Protocol, #19 Allergic rhinitis 11/04/2017 HTN, goal to be determined 10/17 Overview: Modified per HTN protocol #16. Menopause 12/04/2013 BMI 37.0-37.9, adult 09/02/2017 Overview: 204 lbs Cataract, nuclear sclerotic, both eyes 07/24/2019 Benign hypertension with CKD (chronic kidney disease) stage III 04/01/2021 documented as of this encounter (statuses as of 07/29/2023) Immunizations Name Administration Dates Next Due COVID-19 mRNA, LNP-s, No Pre serve, 2-Dose Series (Moderna) 03/15/2021,02/16/2021 Covid-19 Mrna, Lnp-s, No Pre serve, Booster (Moderna) 12/02/2021 Diptheria/Tetanus (Adult) 03/22/2017 Pneumococcal Conjugate Vacc, 13 Valent (Prevnar) 04/23/2015 Pneumococcal Polysaccharide PPV23 (Pneumovax) 11/29/2005 Season Influenza, Quad, PF, Adjuvanted, 65+ Yrs, IM (FLUAD) 08/13/2020 Seasonal Influenza, PF, 6 mo ns & Above, IM , (Flulaval) 08/29/2019,10/03/2018,09/29/2017 Seasonal Influenza, Quadriva lent Hd (Fluzone Hd) 09/17/2022,10/17/2021 Seasonal Influenza, Quadriva lent, No Preserve, IM 10/12/2016 Seasonal Influenza, Split, I IV3, With Preserve, Inj 09/12/2015,08/14/2014,11/14/2013,10/06,09/01/2011,08/28/2010 TDAP (age 10 and older)(Boostrix) 09/19/2017 TDAP (age 11 and older)(Adacel) 07/29/2012 documented as of this encounter Social History Tobacco Use Types Packs/Day Years Used Date Smoking Tobacco: Never Passive Smoke Exposure: Past Smokeless Tobacco: Never Alcohol Use Standard Drinks/Week Comments Yes 0 (1 standard drink = 0.6 oz pur e alcohol) once a month Food Insecurity Answer Date Recorded Within the past 12 months, y ou worried that your food would run out before you got money to buy more. Never true 07/24/2019 Within the past 12 months, t he food you bought just didn't last and you didn't have money to get more. Never true 07/24/2019 Sex Assigned at Date Recorded Not on file Job Start Date Occupation Industry Not on file Not on file Not on file documented as of this encounter Miscellaneous Notes * Telephone Encounter - Per Vee LPN - 07/29/2023 5:32 PM EDT Provider to address: Emily Richardson PA-C Reason for Call: Test Results Contact: Telephone Call Contact Type: Test Results Outcome: Pt aware Pt states she is slowly improving, but still notices burning and frequency with Urination Advised her if still have issues after completing Antibiotic to let the Clinic know . Pt is agreeable Total Time including non face to face (minutes): 5 * Telephone Encounter - Marylin Gruber RN - 07/29/2023 4:15 PM EDT ----- Message from Emily Richardson PA-C sent at 07/29/2023 4:12 PM EDT ----- Please let patient know: She does have a UTI and the antibiotic she's on should be working. See how she's feeling. Thanks documented in this encounter Plan of Treatment Upcoming Encounters Date Type Specialty Care Team Description 09/27/2023 [facility] [address] [facility]/20[facility]2023 Office Visit Cardiology Gabrielle Bell CRNP [address] [facility] [place] [address] 10/28/2023 Office Visit Family Medicine Kumar Salinas MD [address] [place] [address] [place] [address] Health Maintenance Due Date Last Done Comments Zoster Vaccines (1 of 2) 1989 Depression Screening, Annual for Pts 12 and Over 04/29/2021 04/29/2020 COVID-19 Vaccine (4 - Moderna series) 01/27/2022 12/02/2021, 03/15/2021, 02/16/2021 Influenza Vaccine (FLU shot) (#1) 2023 09/17/2022, 10/17/2021, 08/13/2020, Additional history exists HbA1c 10/28/2023 04/28/2023, 10/30, 05/14/2022, Additional history exists Albumin/Creatinine Ratio 11/17/2023 022, 11/13/2021, 09/16/2020, Additional history exists DIABETES-EYE EXAM 04/06/2024 04/06/2023, , 01/28/2021, Additional history exists DIABETES-FOOT EXAM 04/28/2024 04/28/2023, 0 03/12/2022, 04/01/2021, Additional history exists GFR 04/28/2024 04/28/2023, 04/29, 05/01/2021, Additional history exists TSH 04/28/2024 04/28/2023, 04/29, 11/13/2021, Additional history exists DXA Scan 05/31/2026 05/31/2019, 07/15/2012 DTaP,Tdap,and Td Vaccines (4 - Td or Tdap) 09/19/2027 09/19/2017, 03/22/2017, 07/29/2012 Pneumococcal Vaccine: 65+ Years Completed 04/23/2015, 11/29/2005 GARDASIL-HPV IMMUNIZATION SERIES Aged Out No longer eligible based on patient's age to complete this topic Hepatitis B Aged Out No longer eligi ble based on patient's age to complete this topic MENINGOCOCCAL (MENACTRA/MENVEO) Aged Out No longer eligible based on patient's age to complete this topic documented as of this encounter Medical Devices Not on filedocumented as of this encounter Care Teams Vp Software Support Relationship Specialty Start Date End Date Kumar Salinas MD [address] [place] [address] [place] [address] PCP - General 04/03/09 documented as of this encounter
--- OUTSIDE RECORDS SUMMARY | 2023-10-23 19:21 | External Medical Summary | Summary of Care ---
Author Name Unknown Organization [facility] Address [address] [place] [address] Phone [phone] Care Team Providers Care Button Sawyer Name Role Phone Kumar Salinas MD Primary Care Provider Reason for Visit * Reason Onset Date Comments Test Results 07/29/2023 Encounter Details Date Type Department Care Team Description 07/29/2023 Telephone Family Medicine [address] [phone] Kumar Salinas MD [address] [place] [address] [place] [address] Test Results Allergies Active Allergy Reactions Severity Noted Date Comments Crab (Diagnostic) 04/05/2018 Food (See Comments) 07/24/2015 Broccoli, beans, cauliflower - cause gas Grapefruit, oranges - cause bronchitis - positive skin test Paroxetine Hydrochloride 04/03/2009 Penicillins 04/03/2009 Blisters on hands Peanut-Containing Drug Products Abdominal pain Medium 07/24/2015 Gas, bloating documented as of this encounter (statuses as of 07/30/2023) Medications Medication Sig Dispensed Refills Start Date [...] 30GIndications:DM type 2, 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% ([facility]) TEST BLOOD SUGAR ONCE DAILY DIRECTED DX [...] DAY 180 Tablet 3 09/05/2022 Active Nystatin 777961 UNIT/GM External CreamIndications:Ca ndida infection Apply to affected area 2-3 times daily for 5 days 45 g 1 09/17/2022 Active Nystatin 789258 UNIT/GM External Powder (Nystop)Indications :Brunilda infection Apply [...] 25 MG Oral Tablet (Lopressor)Indicati ons:Atherosclerosis of [place] coronary artery of [place] heart without angina pectoris,Paroxysmal atrial fibrillation (HCC),Essential [...] fibrillation (HCC),Dyslipidemia, goal LDL below 100,Atherosclerosis of [place] coronary artery of [place] heart without angina pectoris TAKE ONE PILL [...] as of this encounter (statuses as of 07/30/2023) Active Problems Problem Noted Date Central stenosis [...] 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 Atherosclerosis of [place] co ronary artery of [place] heart without angina pectoris Adjustment disorder with depressed mood documented as of this encounter (statuses as of 07/30/2023) Resolved Problems Problem Noted Date Resolved Date [...] moderate persistent 09/23/201208/30 Genetic Sleep Disorder Research Other*[id number] 09/12/2012 06/25/2016 Obesity, Class II, BMI 35-39.9, [...] as of this encounter (statuses as of 07/30/2023) Immunizations Name Administration Dates Next Due COVID-19 [...] [facility] [address] [facility]/20[facility]2023 Office Visit Cardiology Gabrielle Bell CRNP [address] [facility] [place] [address] 10/28/2023 Office Visit Family Medicine Kumar Salinas MD [address] [place] [address] [place] [address] Health Maintenance Due Date [...] filedocumented as of this encounter Care Teams Button Sawyer Relationship Specialty Start Date End Date Kumar Salinas MD [address] [place] [address] [place] [address] PCP - General 04/03/09 documented as of this encounter
--- OUTSIDE RECORDS SUMMARY | 2023-10-23 19:21 | External Medical Summary | Summary of Care ---
Author Name Unknown Organization [facility] Address [address] [place] [address] Phone [phone] Care Team Providers Care Produce Clerk Name Role Phone Kumar Salinas MD Primary Care Provider Reason for Visit * Reason Onset Date Comments Health Maintenance 09/08/2023 Encounter Details Date Type Department Care Team Description 09/08/2023 Telephone Family Medicine [address] [phone] Kumar Salinas MD [address] [place] [address] [place] [address] Health Maintenance Allergies Active Allergy Reactions Severity Noted Date Comments Crab (Diagnostic) 04/05/2018 Food (See Comments) 07/24/2015 Broccoli, beans, cauliflower - cause gas Grapefruit, oranges - cause bronchitis - positive skin test Paroxetine Hydrochloride 04/03/2009 Penicillins 04/03/2009 Blisters on hands Peanut-Containing Drug Products Abdominal pain Medium 07/24/2015 Gas, bloating documented as of this encounter (statuses as of 09/08/2023) Medications Medication Sig Dispensed Refills Start Date [...] 30GIndications:DM type 2, 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% ([facility]) TEST BLOOD SUGAR ONCE DAILY DIRECTED DX [...] DAY 180 Tablet 3 09/05/2022 Active Nystatin 461243 UNIT/GM External CreamIndications:Ca ndida infection Apply to affected area 2-3 times daily for 5 days 45 g 1 09/17/2022 Active Nystatin 066128 UNIT/GM External Powder (Nystop)Indications :Brunilda infection Apply [...] 25 MG Oral Tablet (Lopressor)Indicati ons:Atherosclerosis of [place] coronary artery of [place] heart without angina pectoris,Paroxysmal atrial fibrillation (HCC),Essential [...] fibrillation (HCC),Dyslipidemia, goal LDL below 100,Atherosclerosis of [place] coronary artery of [place] heart without angina pectoris TAKE ONE PILL [...] the morning. 90 Tablet 3 07/16/2023 Active documented as of this encounter (statuses as of 09/08/2023) Active Problems Problem Noted Date Central stenosis [...] 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 Atherosclerosis of [place] co ronary artery of [place] heart without angina pectoris Adjustment disorder with depressed mood documented as of this encounter (statuses as of 09/08/2023) Resolved Problems Problem Noted Date Resolved Date Type 2 diabetes mellitus wit h stage 3 chronic kidney disease, without long-term current use of insulin 05/22/201902/2021 CKD (chronic kidney disease), stage III 03/08/20 [...] moderate persistent 09/23/201208/30 Genetic Sleep Disorder Research Other*[id number] 09/12/2012 06/25/2016 Obesity, Class II, BMI 35-39.9, [...] as of this encounter (statuses as of 09/08/2023) Immunizations Name Administration Dates Next Due COVID-19 mRNA, LNP-s, No Pre serve, 2-Dose Series (Moderna) 03/15/2021,02/16/2021 COVID-19, mRNA, LNP-s, PF, B ooster, 100mcg/0.5mg (Moderna) 12/02/2021 Diptheria/Tetanus (Adult) 03/22/2017 Pneumococcal Conjugate Vacc, 13 Valent (Prevnar) 04/23/2015 Pneumococcal Polysaccharide PPV23 (Pneumovax) 11/29/2005 SEASONAL INFLUENZA, PF, 6 M & Above, IM , (FLULAVAL or FLUZONE) 08/29/2019,10/03/2018,09/29/2017 Season Influenza, Quad, PF, Adjuvanted, 65+ Yrs, IM (FLUAD) 08/13/2020 Seasonal Influenza, Quadriva lent Hd (Fluzone Hd) [...] encounter Miscellaneous Notes * Telephone Encounter - Joselyn Baez LPN - 09/08/2023 12:35 PM EDT Care Gaps Comprehensive Care Outreach Last Office/Telemedicine Visit: 07/27/2023 (in office), Visit date not found (telemedicine) Next Office Visit: 10/28/2023 Hemoglobin AIC Results: Lab Results Component Value Date/Time HEMOGLOBIN A1C - [facility] 6.3 (H) 04/28/2023 02:28 PM HEMOGLOBIN A1C - [facility] 6.4 (H) 11/17/2022 01:13 PM HEMOGLOBIN A1C - [facility] 6.1 (H) 05/14/2022 02:20 PM HEMOGLOBIN A1C - [facility] 6.3 (H) 06/10/2020 03:05 PM HEMOGLOBIN A1C - [facility] 6.0 (H) 08/29/2019 11:47 AM HEMOGLOBIN A1C - [facility] 7.4 (H) 01/23/2019 02:34 PM Reviewed Health Maintenance below: Health Maintenance Topic Date Due Zoster Vaccines (1 of 2) Never done Depression Screening 04/29/2021 Influenza Vaccine (FLU shot) (1) 07/30/2023 COVID-19 Vaccine ( season) 2023 Albumin/Creatinine Ratio 11/17/2023 HbA1c 10/28/2023 Labs flu Care Gap Outreach Action Taken: Unable to reach documented in this encounter Plan of Treatment Upcoming Encounters Date Type Specialty Care Team Description 09/27/2023 Office Visit [facility] [address] 10/20/2023 Office Visit Cardiology Gabrielle Bell CRNP [address] [place] [address] 10/28/2023 Office Visit Family Medicine Kumar Salinas MD [address] [place] [address] [place] [address] Health Maintenance Due Date Last Done Comments Zoster Vaccines (1 of 2) 1989 Depression Screening 04/29/2021 04/29/2020 COVID-19 Vaccine ( - 2022- season) 2023 12/02/2021, 03/15/2021, 02/16/2021 Influenza Vaccine (FLU shot) (#1) 2023 09/17/2022, 10/17/2021, 08/13/2020, Additional history exists HbA1c 10/28/2023 04/28/2023, 10/30, 05/14/2022, Additional history exists Albumin/Creatinine Ratio 11/17/2023 022, 11/13/2021, 09/16/2020, Additional history exists DIABETES-EYE EXAM 04/06/2024 04/06/2023, , 01/28/2021, Additional history exists Diabetic Foot Exam 04/28/2024 04/28/2023, 0 03/12/2022, 04/01/2021, Additional history [...] filedocumented as of this encounter Care Teams Produce Clerk Relationship Specialty Start Date End Date Kumar Salinas MD [address] [place] [address] [place] [address] PCP - General 04/03/09 documented as of this encounter
--- OUTSIDE RECORDS SUMMARY | 2023-10-23 19:21 | External Medical Summary ---
Author Name Unknown Address Unknown Organization K01:[facility] [place] [address] [place], [place] [address] Laboratory Report Ordering Provider Test Date Status MAGGIE CASILLAS 07/27/2023 13:16:00 Final Observation Date Value Abnormality Reference (Units ) Status Bacteria identified in Specimen by Culture 07/27/2023 13:16:00 [id number]^ESCHE RICHIA COLI Abnormal Final 10,000 to 100,000 colonies/m L Escherichia coli Performing Location [facility] [place] [address] [place], [place] [address] Ordering Provider Test Date Status MAGGIE CASILLAS 07/27/2023 13:16:00 Final Observation Date Value Abnormality Reference (Units ) Status Ampicillin 07/27/2023 13:16:00 >=32 Resistant Final Ampicillin + Sulbactam 07/27/2023 13:16:00 16 Intermediate Final Cefazolin 07/27/2023 13:16:00 <=4 Susceptible Final Cefepime susceptibility 07/27/2023 13:16:00 <=1 Susceptible Final Ceftriaxone suceptibility 07/27/2023 13:16:00 <=1 Susceptible Final Ciprofloxacin 07/27/2023 13:16:00 <=0.25 Susceptible Final Due to serious side effects, the FDA has advised against using Ciprofloxacin to treat uncomplicated UTIs and respiratory tract infections unless there are no alternative treatment options. Gentamicin susceptibility 07/27/2023 13:16:00 <=1 Susc eptible Final Nitrofurantoin susceptibility 07/27/2023 13:16:00 <=16 Susceptible Final Piperacillin + Tazobactamsusceptibility 07/27/2023 13:16:00 <=4 Susceptible Final TMP-SMZ susceptibility 07/27/2023 13:16:00 <=20 Suscept ible Final Test: Culture, Urine, Quanti tative
Specimen Source: Urine, Clean Catch
Specimen Type: Urine
Specimen Date: 07/27/2023 1:16 PM
Result Date: 07/29/2023 3:02 PM
Result Status: Final result
Abnormal: Yes
Resulting Lab: [facility] [place]
[address]
[place], [place] [address]

CULTURE

10,000 to 100,000 colonies/mL Escherichia coli (Abnormal)

SUSCEPTIBILITY

Escherichia coli
METHOD MICROBROTH DILUTIONS

AMPICILLIN >=32 Resistant
AMPICILLIN/SULBACTAM 16 Intermediate
CEFAZOLIN <=4 Susceptible
CEFEPIME <=1 Susceptible
CEFTRIAXONE <=1 Susceptible
CIPROFLOXACIN <=0.25 Susceptible [1]
GENTAMICIN <=1 Susceptible
NITROFURANTOIN <=16 Susceptible
PIPERACILLIN TAZOBACTAM <=4 Susceptible
TRIMETH/SULFAMETHOXAZOLE <=20 Susceptible

[1] Due to serious side effects, the FDA has advised against using
Ciprofloxacin to treat uncomplicated UTIs and respiratory tract infections
unless there are no alternative treatment options.

null Performing Location [facility] [place] [address] [place], [place] [address]
--- OUTSIDE RECORDS SUMMARY | 2023-10-23 19:21 | External Medical Summary | Summary of Care ---
Author Name Unknown Organization [facility] Address [address] [place] [address] Phone [phone] Care Team Providers Care Cow Buyer Name Role Phone Kumar Ahn MD Primary Care Provider [phone] Reason for Visit * Reason Comments eRx-Medication Refill Encounter Details Date Type Department Care Team (Late st Contact Info) Description 10/11/2023 Refill Family Medicine [address] [phone] Kmuar Ahn MD [address] [place] [address] [place] [address] Benign hypertension with CKD (chronic kidney disease), stage II; Essential hypertension with goal blood pressure less than 140/90; 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) Allergies Active Allergy Reactions Criticality Noted Date Comments Crab (Diagnostic) 04/05/2018 Food (See Comments) 07/24/2015 Broccoli, beans, cauliflower - cause gas Grapefruit, oranges - cause bronchitis - positive skin test Paroxetine Hydrochloride 04/03/2009 Penicillins 04/03/2009 Blisters on hands Peanut-Containing Drug Products Abdominal pain Medium 07/24/2015 Gas, bloating documented as of this encounter (statuses as of 10/11/2023) Medications Medication Sig Dispensed Refills Start Date [...] 06/28/2019 Active triamcinolone acetonide (ARISTOCORT) 0.1 % creamIndications: Intrinsic eczema Apply topically to affected area 2 times a day. To affected area. 15 g 5 01/11/2020 Active Magnesium Oxide 400 (240 Mg) MG Tablet Take 1 Tablet by mouth in the morning. 0 Active zinc gluconate 50 MG Tablet Take 1 Tablet by mouth in the morning. 0 Active OneTouch Delica Lancets 30GIndications:DM type 2, 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% ([facility]) TEST BLOOD SUGAR ONCE DAILY DIRECTED [...] 250-50 MCG/DOSE Inhalation Aerosol Powder Breath Activated (Fluticasone-Salm eterol) INHALE 1 PUFF BY MOUTH 2 TIMES A DAY. 180 Each 3 01/12/2022 Active Lumigan 0.01 % Ophthalmic Solution Instill 1 Drop into both eyes at bedtime. 0 03/27/2022 Active Ketoconazole 2 % External Cream APPLY SPARINGLY TO AFFECTED AREA TWICE A DAY 0 05/18/2022 Active Ferrous Sulfate 325 (65 Fe) MG Oral Tablet (Feosol)Indicatio ns:Iron deficiency anemia, unspecified iron deficiency anemia type TAKE 1 TABLET BY MOUTH TWICE A DAY 180 Tablet 3 09/05/2022 Active Nystatin 797763 UNIT/GM External CreamIndications: Brunilda infection Apply to affected area 2-3 times daily for 5 days 45 g 1 09/17/2022 Active Nystatin 076485 UNIT/GM External Powder (Nystop)Indicatio ns:Brunilda infection Apply topically to affected area 2 times a day . 30 g 1 09/17/2022 Active Fluticasone-Salme terol 250-50 MCG/ACT Inhalation Aerosol Powder Breath Activated (Wixela Inhub) Inhale 1 Puff by mouth in the morning and 1 Puff before bedtime. 180 Each 3 01/11/2023 Active Fluticasone Propionate 50 MCG/ACT Nasal Suspension (Flonase) Administer 2 Sprays into each nostril every morning. 48 mL 3 01/20/2023 Active Metoprolol Tartrate 25 MG Oral Tablet (Lopressor)Indica tions:Atheroscler osis of [place] coronary artery of [place] heart without angina pectoris,Paroxysm al atrial fibrillation (HCC),Essential hypertension with goal blood pressure less than 140/90 TAKE 1 TABLET BY MOUTH TWICE A DAY 180 Tablet 1 03/13/2023 Active Montelukast Sodium 10 MG Oral Tablet (Singulair)Indica tions:Other seasonal allergic rhinitis Take 1 Tablet by mouth in the morning. 90 Tablet 3 04/07/2023 Active Levothyroxine Sodium 100 MCG Oral Tablet (Levoxyl) TAKE 1 TABLET BY MOUTH DAILY AT LEAST 30 MINUTES PRIOR TO BREAKFAST OR OTHER MEDICATION 90 Tablet 1 05/12/2023 Active HYDROcodone-Aceta minophen 5-325 MG Oral TabletIndications :Arthralgia of shoulder, unspecified laterality Take 1 Tablet by mouth every 6 hours as needed for Pain, Mild. 10 Tablet 0 05/20/2023 Active Atorvastatin Calcium 20 MG Oral Tablet (Lipitor)Indicati ons:Paroxysmal atrial fibrillation (HCC),Dyslipidemi a, goal LDL below 100,Atheroscleros is of [place] coronary artery of [place] heart without angina pectoris TAKE ONE PILL BY MOUTH AT BEDTIME 90 Tablet 1 06/13/2023 Active metFORMIN HCl 850 MG Oral Tablet (Glucophage)Indic ations:Type 2 diabetes mellitus with hemoglobin A1c goal of less than 7.0% (HCC) TAKE 1 TABLET BY MOUTH TWICE A DAY WITH BREAKFAST AND DINNER 180 Tablet 1 07/16/2023 Active Oxybutynin Chloride ER 10 MG Oral Tablet Extended Release 24 Hour (Ditropan XL) Take 1 Tablet by mouth in the morning. 90 Tablet 3 07/16/2023 Active Chlorthalidone 25 MG Oral Tablet (Hygroton)Indicat ions:Benign hypertension with CKD (chronic kidney disease), stage II TAKE 1 TABLET BY MOUTH EVERY DAY IN THE MORNING 90 Tablet 1 10/11/2023 Active Losartan Potassium 100 MG Oral Tablet (Cozaar)Indicatio ns:Benign hypertension with CKD (chronic kidney disease), stage II,Essential hypertension with goal blood pressure less than 140/90,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) TAKE 1 TABLET BY MOUTH EVERY DAY IN THE MORNING 90 Tablet 1 10/11/2023 Active Chlorthalidone 25 MG Oral Tablet (Hygroton)Indicat ions:Benign hypertension with CKD (chronic kidney disease), stage II TAKE 1 TABLET BY MOUTH EVERY DAY IN THE MORNING 90 Tablet 1 04/17/2023 10/11/20 23 Discontinued Losartan Potassium 100 MG Oral Tablet (Cozaar)Indicatio ns:Benign hypertension with CKD (chronic kidney disease), stage II,Essential hypertension with goal blood pressure less than 140/90,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) TAKE 1 TABLET BY MOUTH EVERY DAY IN THE MORNING 90 Tablet 1 04/17/2023 10/11/20 23 Discontinued documented as of this encounter (statuses as of 10/11/2023) Active Problems Problem Noted Date Diagnosed Date Central stenosis of spinal canal 06/11/2021 Overview: 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 DDD (degenerative disc disease), cervical 2015 POAG (primary open-angle glaucoma) 03/19/2015 Sleep apnea, obstructive 11/21/2012 Overview: 11/21/12 -- BIPAP set at 12/10 -- start auto BIPAP DME - Rashida ADVANCE DIRECTIVE INFORMATION 06/11/2011 Overview: No, Advance Directive brochure given to patient. - mailed 06/11/2011 Primary hypertension 10/17/2009 Overview: Modified per HTN protocol #16. Acquired hypothyroidism Gastroesophageal reflux dise ase with esophagitis 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 Atherosclerosis of [place] co ronary artery of grindstone heart without angina pectoris Adjustment disorder with depressed mood documented as of this encounter (statuses as of 10/11/2023) Resolved Problems Problem Noted Date Diagnosed Date Resolved Date Type 2 diabetes mellitus wit h stage 3 chronic kidney disease, without long-term current use of insulin 05/22/2019 04/01/2021 CKD (chronic kidney disease), stage III 03/08/2018 12/16/2018 Overview: Per CKD protocol #1 BMI 39.0-39.9,adult 08/30/2017 09/12/20 Overview: 208 lbs [place] 08/27/2017 07/18/2018 Hypothyroidism 10/12/2016 10/12/2016 Postmenopausal atrophic vaginitis 07/27/2016 10/12/2016 Family history of breast cancer in mother 05/13/2016 07/18/2018 Postmenopausal atrophic vaginitis 05/13/2016 07/24/2019 Overview: Noted on scanned records. Blepharitis 03/19/2015 07/18/2018 Pseudophakia 03/19/2015 07/18/2018 Atrial fibrillation 01/17/2013 01/14/20 17 Subjective tinnitus 09/23/2012 07/18/20 18 Asthma, moderate persistent 09/23/2012 09/23/2012 Genetic Sleep Disorder [facility] Other*[id number] 09/12/2012 06/25/2016 Obesity, Class II, BMI 35-39 .9, isolated (see actual BMI) 05/12/2010 05/22/2013 Overview: Per Obesity Protocol, #19 Allergic rhinitis 11/04/2017 HTN, goal to be determined 1 12/17/2008 Overview: Modified per HTN protocol #16. Menopause 12/04/2013 BMI 37.0-37.9, adult 017 Overview: 204 lbs Cataract, nuclear sclerotic, both eyes 07/24/2019 Benign hypertension with CKD (chronic kidney disease) stage III 04/01/2021 documented as of this encounter (statuses as of 10/11/2023) Immunizations Name Administration Dates Next Due COVID-19 [...] oz pur e alcohol) once a month PHQ-2 Answer Date Recorded PHQ-2 Score 0 04/29/2020 Hunger Vital Sign Answer Date Recorded Worried About Running Out of Food in the Last Ye ar Never true 07/24/2019 Ran Out of Food in the Last Year Never true 07/24/2019 Sex and Gender Information Value Date Recorded Sex Assigned at Not on file Gender Identity Not on file Sexual Orientation Not on file Job Start Date Occupation Industry Not on file Not on file Not on file documented as of this encounter Miscellaneous Notes * Telephone Encounter - Dona Zhang RPh - 10/11/2023 10:01 PM EST Signed Prescriptions: Disp Refills Chlorthalidone 25 MG Oral Tablet (Hygroton)90 Tab*1 Sig: TAKE 1 TABLET BY MOUTH EVERY DAY IN THE MORNINGAuthorizing Provider: KUMAR AHN User: DONA ZHANG Losartan Potassium 100 MG Oral Tablet (Coz*90 Tab*1 Sig: TAKE 1 TABLET BY MOUTH EVERY DAY IN THE MORNINGAuthorizing Provider: KUMAR AHN User: DONA ZHANG------- documented in this encounter Plan of Treatment Upcoming Encounters Date Type Department Care Team (Late st Contact Info) Description 10/20/2023 2:00 PM EST Office Visit Cardiology, [facility] [address] [place] [address] Gabrielle Bell CRNP [address] [place] [address] 10/28/2023 4:00 PM EST Office Visit Family Medicine [address] [place] [phone] Kumar Ahn MD [address] [place] [address] [place] [address] Health Maintenance Due Date Last Done Comments Zoster Vaccines (1 of 2) 1989 Hepatitis B (1 of 3 - Risk 3-dose series) 1999 Depression Screening 04/29/2021 04/29/2020 COVID-19 Vaccine ( season) 2023 12/02/2021, 03/15/2021, 02/16/2021 Influenza Vaccine (FLU shot) (#1) 2023 09/17/2022, 10/17/2021, 08/13/2020, Additional history exists HbA1c 10/28/2023 04/28/2023, 10/30, 05/14/2022, Additional history exists Albumin/Creatinine Ratio 11/17/2023 022, 11/13/2021, 09/16/2020, Additional history exists Diabetic Foot Exam 04/28/2024 04/28/2023, 0 03/12/2022, 04/01/2021, Additional history exists GFR 04/28/2024 04/28/2023, 04/29, 05/01/2021, Additional history exists TSH 04/28/2024 04/28/2023, 04/29, 11/13/2021, Additional history exists Diabetic Eye Exam 09/03/2024 09/03/2023, , 10/26/2022, Additional history exists DXA Scan 05/31/2026 05/31/2019, [...] Not on filedocumented as of this encounter Visit Diagnoses Diagnosis Benign hypertension with CKD (chronic kidney disease), stage II Benign hypertensive kidney disease with chronic kidney disease stage I through stage IV, or unspecified Essential hypertension with goal blood pressure less than 140/90 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) Benign hypertensive kidney disease with chronic kidney disease stage I through stage IV, or unspecified documented in this encounter Care Teams Cow Buyer Relationship Specialty Start Date End Date Kumar Ahn MD [address] [place] [address] [place] [address] PCP - General 04/03/09 documented as of this encounter
--- OUTSIDE RECORDS SUMMARY | 2023-10-23 19:21 | External Medical Summary | Summary of Care ---
Author Name Unknown Organization [facility] Address [address] [place] [address] Phone [phone] Care Team Providers Care Ciaio Counter Molder Name Role Phone Kumar Ahn MD Primary Care Provider [phone] Reason for Visit * Reason Comments eRx-Medication Refill Encounter Details Date Type Department Care Team Description 07/16/2023 Refill Family Medicine [address] [phone] Kumar Ahn MD [address] [place], [place] [address] [address] Type 2 diabetes mellitus with hemoglobin A1c goal of less than 7.0% ([facility]) Allergies Active Allergy Reactions Severity Noted Date Comments Crab (Diagnostic) 04/05/2018 Food (See Comments) 07/24/2015 Broccoli, beans, cauliflower - cause gas Grapefruit, oranges - cause bronchitis - positive skin test Paroxetine Hydrochloride 04/03/2009 Penicillins 04/03/2009 Blisters on hands Peanut-Containing Drug Products Abdominal pain Medium 07/24/2015 Gas, bloating documented as of this encounter (statuses as of 07/16/2023) Medications Medication Sig Dispensed Refills Start Date [...] Active zinc gluconate 50 MG Tablet Take 50 mg by mouth daily. 0 Active [place] Delica Lancets 30GIndications:DM type 2, 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% ([facility]) TEST BLOOD SUGAR ONCE DAILY DIRECTED DX [...] DAY 180 Tablet 3 09/05/2022 Active Nystatin 629542 UNIT/GM External CreamIndications: Brunilda infection Apply to affected area 2-3 times daily for 5 days 45 g 1 09/17/2022 Active Nystatin 206345 UNIT/GM External Powder (Nystop)Indicatio ns:Brunilda infection Apply [...] MG Oral Tablet (Lopressor)Indica tions:Atheroscler osis of [place] coronary artery of [place] heart without angina pectoris,Paroxysm al atrial fibrillation (HCC),Essential hypertension with goal blood pressure less than 140/90 TAKE 1 TABLET BY MOUTH TWICE A DAY 180 Tablet 1 03/13/2023 Active Montelukast Sodium 10 MG Oral Tablet (Singulair)Indica tions:Other seasonal allergic rhinitis Take 1 Tablet by mouth in the morning. 90 Tablet 3 04/07/2023 Active Chlorthalidone 25 MG Oral Tablet (Hygroton)Indicat [...] a, goal LDL below 100,Atheroscleros is of [place] coronary artery of [place] heart without angina pectoris TAKE ONE PILL [...] the morning. 90 Tablet 3 07/16/2023 Active metFORMIN HCl 850 MG Oral Tablet (Glucophage)Indic ations:Type 2 diabetes mellitus with hemoglobin A1c goal of less than 7.0% (HCC) TAKE 1 TABLET BY MOUTH TWICE A DAY WITH BREAKFAST AND DINNER 180 Tablet 1 01/30/2023 07/16/20 23 Discontinued documented as of this encounter (statuses as of 07/16/2023) Active Problems Problem Noted Date Central stenosis [...] 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 Atherosclerosis of [place] co ronary artery of [place] heart without angina pectoris Adjustment disorder with depressed mood documented as of this encounter (statuses as of 07/16/2023) Resolved Problems Problem Noted Date Resolved Date [...] Subjective tinnitus 09/23/2012 07/18/2018 Asthma, moderate persistent 09/23/2012 10/2 04/2012 Genetic Sleep Disorder Research Other*[id number] 09/12/2012 06/25/2016 Obesity, Class II, BMI 35-39.9, [...] as of this encounter (statuses as of 07/16/2023) Immunizations Name Administration Dates Next Due COVID-19 [...] encounter Miscellaneous Notes * Telephone Encounter - Ralph Macedo RPh - 07/16/2023 12:09 PM EDT Signed Prescriptions: Disp Refills metFORMIN HCl 850 MG Oral Tablet (Glucopha*180 Ta*1 Sig: TAKE 1 TABLET BY MOUTH TWICE A DAY WITH BREAKFAST AND DINNERAuthorizing Provider: KUMAR AHN AOrderingUser: RALPH MACEDO documented in this encounter Plan of Treatment Upcoming Encounters Date Type Specialty Care Team Description 08/17/2023 Office Visit Cardiology Chace Peacock, [address] [place] [address] 09/27/2023 Office Visit Dermatology Keegan Godwin MD [address] [place] [address] [place] [address] 10/28/2023 Office Visit Family Medicine Kumar Ahn MD [address] [place] [address] [place] [phone] Health Maintenance Due Date Last Done Comments [...] as of this encounter Visit Diagnoses Diagnosis Type 2 diabetes mellitus with hemoglobin A1c goal of less than 7.0% (HCC) documented in this encounter Care Teams Ciaio Counter Molder Relationship Specialty Start Date End Date Kumar Ahn MD [address] [place] [address] [place] [address] PCP - General 04/03/09 documented as of this encounter
--- OUTSIDE RECORDS SUMMARY | 2023-10-23 19:21 | External Medical Summary | Summary of Care ---
Author Name Unknown Organization [facility] Address [address] [place] [address] Phone [phone] Care Team Providers Care Ep Tech Name Role Phone Kumar Salinas MD Primary Care Provider [phone] Reason for Visit * Reason Comments Acute Possible UTI Encounter Details Date Type Department Care Team Description 07/27/2023 Office Visit Family Medicine [address] [address] Emily Richardson PA-C [address] [place] [address] [place] [address] Dysuria*; Other microscopic hematuria Allergies Active Allergy Reactions Severity Noted Date Comments Crab (Diagnostic) 04/05/2018 Food (See Comments) 07/24/2015 Broccoli, beans, cauliflower - cause gas Grapefruit, oranges - cause bronchitis - positive skin test Paroxetine Hydrochloride 04/03/2009 Penicillins 04/03/2009 Blisters on hands Peanut-Containing Drug Products Abdominal pain Medium 07/24/2015 Gas, bloating documented as of this encounter (statuses as of 07/27/2023) Medications Medication Sig Dispensed Refills Start Date [...] 30GIndications:DM type 2, 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% ([facility]) TEST BLOOD SUGAR ONCE DAILY DIRECTED DX [...] DAY 180 Tablet 3 09/05/2022 Active Nystatin 992229 UNIT/GM External CreamIndications:Ca ndida infection Apply to affected area 2-3 times daily for 5 days 45 g 1 09/17/2022 Active Nystatin 538035 UNIT/GM External Powder (Nystop)Indications :Brunilda infection Apply [...] 25 MG Oral Tablet (Lopressor)Indicati ons:Atherosclerosis of [place] coronary artery of [place] heart without angina pectoris,Paroxysmal atrial fibrillation (HCC),Essential [...] fibrillation (HCC),Dyslipidemia, goal LDL below 100,Atherosclerosis of [place] coronary artery of [place] heart without angina pectoris TAKE ONE PILL [...] as of this encounter (statuses as of 07/27/2023) Active Problems Problem Noted Date Central stenosis [...] 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 Atherosclerosis of [place] co ronary artery of [place] heart without angina pectoris Adjustment disorder with depressed mood documented as of this encounter (statuses as of 07/27/2023) Resolved Problems Problem Noted Date Resolved Date [...] moderate persistent 09/23/201208/30 Genetic Sleep Disorder Research Other*[id number] 09/12/2012 06/25/2016 Obesity, Class II, BMI 35-39.9, [...] as of this encounter (statuses as of 07/27/2023) Immunizations Name Administration Dates Next Due COVID-19 [...] on file documented as of this encounter Last Filed Vital Signs Vital Sign Reading Time Taken Comments Blood Pressure 138/72 07/27/2023 1:02 PM EDT Pulse 74 07/27/2023 1:02 PM EDT Temperature 36.3 C (97.3 F) 07/27/2023 1:02 PM ED T Respiratory Rate - - Oxygen Saturation 92% 07/27/2023 1:02 PM EDT Inhaled Oxygen Concentration - - Weight 76.4 kg (168 lb 8 oz) 07/27/2023 1:02 PM EDT Height - - Body Mass Index 32.21 05/25/2023 1:42 PM EDT documented in this encounter Progress Notes * Emily Richardson PA-C - 07/27/2023 1:06 PM EDT Images from the original note were not included. History of Present Illness Yudelka Palacios is a 83 year old female that presents for Acute (Possible UTI) Nursing Notes: Lisa Murcia CMA 07/27/23 1317 Signed She is having burning when she urinates. Difficulty urinating. This has been a week. Skin irritation around her groin. HPI: Yudelka Palacios is a 83 year old female presenting to the office today for burning with urination. She has been having chills as well as shaking at times. She has been having urinary frequency and urgency. She almost feels like she has had retention at times. She uses Poise pads all the time and has some irritation from her pads now as well. She has been pushing fluids. No abdominal pain or flank pain. Current Outpatient Medications Medication Instructions Albuterol Sulfate HFA 108 (90 Base) MCG/ACT Inhalation Aerosol Solution 2 Puffs, Inhalation, Q4H PRN Atorvastatin Calcium 20 MG Oral Tablet (Lipitor) TAKE ONE PILL BY MOUTH AT BEDTIME Azelastine HCl 0.1 % Nasal Solution 2 Sprays, Each Nostril, QPM-2000 CENTRUM SILVER PO TABS 1 tab daily Chlorthalidone 25 MG Oral Tablet (Hygroton) TAKE 1 TABLET BY MOUTH EVERY DAY IN THE MORNING Coenzyme Q10 (COQ-10) 100 MG CAPS 1 Capsule, Oral, Daily(AM) DEXILANT 60 MG PO CPDR 1 CAPSULE DAILY ECOTRIN LOW STRENGTH 81 MG PO TBEC One pill by mouth once a day Ferrous Sulfate 325 (65 Fe) MG Oral Tablet (Feosol) TAKE 1 TABLET BY MOUTH TWICE A DAY Fluticasone Propionate 50 MCG/ACT Nasal Suspension (Flonase) 2 Sprays, Each Nostril, [id number] Fluticasone-Salmeterol 250-50 MCG/ACT Inhalation Aerosol Powder Breath Activated (Wixela Inhub) 1 Puff, Inhalation, BID(AM/PM) Glucose Blood (Conversant LabsTOUCH VERIO) STRP Test blood sugar once daily as directed; dx E11.9 HYDROcodone-Acetaminophen 5-325 MG Oral Tablet 1 Tablet, Oral, Q6H PRN Ketoconazole 2 % External Cream APPLY SPARINGLY TO AFFECTED AREA TWICE A DAY Klor-Con M10 10 MEQ Oral Tablet Extended Release 20 mEq, Oral, BID(AM/PM) Levothyroxine Sodium 100 MCG Oral Tablet (Levoxyl) TAKE 1 TABLET BY MOUTH DAILY AT LEAST 30 MINUTESPRIOR TO BREAKFAST OR OTHER MEDICATION Losartan Potassium 100 MG Oral Tablet (Cozaar) TAKE 1 TABLET BY MOUTH EVERY DAY IN THE MORNING Lumigan 0.01 % Ophthalmic Solution 1 Drop, Both eyes, HS Magnesium Oxide -Mg Supplement (MAG-OX) 400 mg, Oral, Daily(AM) MEDICAL INSTRUCTIONS Does Not Apply, CPAP during night as ordered metFORMIN HCl 850 MG Oral Tablet (Glucophage) TAKE 1 TABLET BY MOUTH TWICE A DAY WITH BREAKFAST ANDDINNER Metoprolol Tartrate 25 MG Oral Tablet (Lopressor) TAKE 1 TABLET BY MOUTH TWICE A DAY montelukast (SINGULAIR) 10 mg, Oral, Daily(AM) Nystatin 962464 UNIT/GM External Cream Apply to affected area 2-3 times daily for 5 days Nystatin 723098 UNIT/GM External Powder (Nystop) Topical, BID(AM/PM) OneTouch Delica Lancets 30G TEST BLOOD SUGAR ONCE DAILY DIRECTED DX E11.9 oxybutynin XL (DITROPAN XL) 10 mg, Oral, Daily(AM) triamcinolone acetonide (ARISTOCORT) 0.1 % cream Topical, BID(AM/PM), To affected area. venlafaxine XR (EFFEXOR XR) 37.5 mg, Oral, Daily(AM) VITAMIN B-12 1000 MCG PO TABS 1 tab daily Vitamin C (ASCORBIC ACID) 500 mg, Oral, Daily(AM) Vitamin D-3 1,000 Units, Oral, Daily(AM) Wixela Inhub 250-50 MCG/DOSE Inhalation Aerosol Powder Breath Activated (Fluticasone-Salmeterol) INHALE 1 PUFF BY MOUTH 2 TIMES A DAY. zinc 50 mg, Oral, Daily(AM) Med list reviewed by me today. Physical Exam Vitals: 07/27/23 1302 Temp: 36.3 C (97.3 F) Pulse: 74 SpO2: 92% BP: 138/72 Physical exam: General: Well-Developed. Well appearing. No acute distress. HENT: Normocephalic. Atraumatic. Hearing normal. Cardiovascular: RRR. Pulmonary: No respiratory distress. No accessory muscle use. I have reviewed the following results: BMP, Urine Culture, and Urinalysis, POC Assessment and Plan Dysuria Start abx pending culture. Has tolerated cephalosporins in the past despite PCN allergy. - URINALYSIS, POINT OF CARE (ENTER/EDIT) - Cephalexin 500 MG Oral Capsule (Keflex); Take 1 Capsule by mouth 2 times a day with morning and evening meals for 5 days. Hematuria - CULTURE, URINE, QUANTITATIVE Wrap-Up F/U as scheduled or sooner PRN documented in this encounter Nursing Notes * Lisa Murcia CMA - 07/27/2023 1:00 PM EDT She is having burning when she urinates. Difficulty urinating. This has been a week. Skin irritation around her groin. documented in this encounter Plan of Treatment Upcoming Encounters Date Type Specialty Care Team Description 08/17/2023 Office Visit Cardiology Chace Peacock, DO [address] [place] [address] 09/27/2023 Office Visit [facility]at[facility] [address] 10/28/2023 Office Visit Family Medicine Kumar Salinas MD [address] [place] [address] [place] [phone] Pending Results Name Type Priority Associated Diagnoses Date /Time CULTURE, URINE, QUANTITATIVE Lab Routine Other microscopic hematuria 07/27/2023 1:16 PM EDT URINALYSIS, POINT OF CARE (ENTER/EDIT) Point of Care Testing Routine Dysuria 07/27/2023 Health Maintenance Due Date Last Done Comments [...] as of this encounter Visit Diagnoses Diagnosis Dysuria- Primary Other microscopic hematuria documented in this encounter Care Teams Ep Tech Relationship Specialty Start Date End Date Kumar Salinas MD [address] [place] [address] [place] [address] PCP - General 04/03/09 documented as of this encounter
--- OUTSIDE RECORDS SUMMARY | 2023-10-23 19:21 | External Medical Summary | Summary of Care ---
Author Name Unknown Organization [facility] Address [address] [place] [address] Phone [phone] Care Team Providers Care Last Waxer Name Role Phone Kumar Salinas MD Primary Care Provider Reason for Visit * Reason Onset Date Comments Test Results 07/29/2023 Encounter Details Date Type Department Care Team Description 07/29/2023 Telephone Family Medicine [address] [address] Kumar Salinas MD [address] [place] [address] [place] [address] Test Results Allergies Active Allergy Reactions [...] 30GIndications:DM type 2, 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% ([facility]) TEST BLOOD SUGAR ONCE DAILY DIRECTED [...] DAY 180 Tablet 3 09/05/2022 Active Nystatin 431539 UNIT/GM External CreamIndications:Ca ndida infection Apply to affected area 2-3 times daily for 5 days 45 g 1 09/17/2022 Active Nystatin 102945 UNIT/GM External Powder (Nystop)Indications :Brunilda infection Apply [...] 25 MG Oral Tablet (Lopressor)Indicati ons:Atherosclerosis 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 without angina pectoris,Paroxysmal atrial fibrillation (HCC),Essential [...] fibrillation (HCC),Dyslipidemia, goal LDL below 100,Atherosclerosis 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 without angina pectoris TAKE ONE PILL [...] 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 Atherosclerosis of [place] co ronary artery of [place] heart without angina pectoris Adjustment disorder with [...] moderate persistent 09/23/201208/30 Genetic Sleep Disorder Research Other*[id number] 09/12/2012 06/25/2016 Obesity, Class II, BMI 35-39.9, [...] [facility] [address] 10/20/2023 Office Visit Cardiology Gabrielle Bell CRNP [address] [facility] [place] [address] 10/28/2023 Office Visit Family Medicine Kumar Salinas MD [address] [place] [address] [place] [address] Health Maintenance Due Date [...] filedocumented as of this encounter Care Teams Last Waxer Relationship Specialty Start Date End Date Kumar Salinas MD [address] [place] [address] [place] [address] PCP - General 04/03/09 documented as of this encounter
--- OUTSIDE RECORDS SUMMARY | 2023-10-23 19:21 | External Medical Summary | Summary of Care ---
Author Name Unknown Organization [facility] Address [address] [place] [address] Phone [phone] Care Team Providers Care Muck Boss Name Role Phone Kumar Salinas MD Primary Care Provider [phone] Reason for Visit * Reason Onset Date Comments Medication Refill 07/16/2023 Encounter Details Date Type Department Care Team Description 07/16/2023 Refill Urogynecology [facility] [address] [place] [address] Ralph Winchester MD [address] [place] [address] Allergies Active Allergy Reactions Severity Noted Date [...] 06/28/2019 Active triamcinolone acetonide (ARISTOCORT) 0.1 % creamIndications:I ntrinsic eczema Apply topically to affected area 2 times a day. To affected area. 15 g 5 01/11/2020 Active Magnesium Oxide 400 (240 Mg) MG Tablet Take 1 Tablet by mouth in the morning. 0 Active zinc gluconate 50 MG Tablet Take 50 mg by mouth daily. 0 Active OneTouch Delgerda Lancets 30GIndications:DM type 2, 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% ([facility]) TEST BLOOD SUGAR ONCE DAILY DIRECTED DX [...] 250-50 MCG/DOSE Inhalation Aerosol Powder Breath Activated (Fluticasone-Salme terol) INHALE 1 PUFF BY MOUTH 2 TIMES A DAY. 180 Each 3 01/12/2022 Active Lumigan 0.01 % Ophthalmic Solution Instill 1 Drop into both eyes at bedtime. 0 03/27/2022 Active Ketoconazole 2 % External Cream APPLY SPARINGLY TO AFFECTED AREA TWICE A DAY 0 05/18/2022 Active Ferrous Sulfate 325 (65 Fe) MG Oral Tablet (Feosol)Indication s:Iron deficiency anemia, unspecified iron deficiency anemia type TAKE 1 TABLET BY MOUTH TWICE A DAY 180 Tablet 3 09/05/2022 Active Nystatin 596936 UNIT/GM External CreamIndications:C andida infection Apply to affected area 2-3 times daily for 5 days 45 g 1 09/17/2022 Active Nystatin 339474 UNIT/GM External Powder (Nystop)Indication s:Brunilda infection Apply topically to affected area 2 times a day . 30 g 1 09/17/2022 Active Fluticasone-Salmet leah 250-50 MCG/ACT Inhalation Aerosol Powder Breath Activated (Wixela Inhub) Inhale 1 Puff by mouth in the morning and 1 Puff before bedtime. 180 Each 3 01/11/2023 Active Fluticasone Propionate 50 MCG/ACT Nasal Suspension (Flonase) Administer 2 Sprays into each nostril every morning. 48 mL 3 01/20/2023 Active metFORMIN HCl 850 MG Oral Tablet (Glucophage)Indica tions:Type 2 diabetes mellitus with hemoglobin A1c goal of less than 7.0% (HCC) TAKE 1 TABLET BY MOUTH TWICE A DAY WITH BREAKFAST AND DINNER 180 Tablet 1 01/30/2023 Active Metoprolol Tartrate 25 MG Oral Tablet (Lopressor)Indicat ions:Atheroscleros is of [place] coronary artery of [place] heart without angina pectoris,Paroxysma l atrial fibrillation (HCC),Essential hypertension with goal blood pressure less than 140/90 TAKE 1 TABLET BY MOUTH TWICE A DAY 180 Tablet 1 03/13/2023 Active Montelukast Sodium 10 MG Oral Tablet (Singulair)Indicat ions:Other seasonal allergic rhinitis Take 1 Tablet by mouth in the morning. 90 Tablet 3 04/07/2023 Active Chlorthalidone 25 MG Oral Tablet (Hygroton)Indicati ons:Benign hypertension with CKD (chronic kidney disease), stage II TAKE 1 TABLET BY MOUTH EVERY DAY IN THE MORNING 90 Tablet 1 04/17/2023 Active Losartan Potassium 100 MG Oral Tablet (Cozaar)Indication s:Benign hypertension with CKD (chronic kidney disease), stage [...] OTHER MEDICATION 90 Tablet 1 05/12/2023 Active HYDROcodone-Acetam inophen 5-325 MG Oral TabletIndications: Arthralgia of shoulder, unspecified laterality Take 1 Tablet by mouth every 6 hours as needed for Pain, Mild. 10 Tablet 0 05/20/2023 Active Atorvastatin Calcium 20 MG Oral Tablet (Lipitor)Indicatio ns:Paroxysmal atrial fibrillation (HCC),Dyslipidemia , goal LDL below 100,Atherosclerosi s of [place] coronary artery of [place] heart without angina pectoris TAKE ONE PILL BY MOUTH AT BEDTIME 90 Tablet 1 06/13/2023 Active Oxybutynin Chloride ER 10 MG Oral Tablet Extended Release 24 Hour (Ditropan XL) Take 1 Tablet by mouth in the morning. 90 Tablet 3 07/16/2023 Active Oxybutynin Chloride ER 10 MG Oral Tablet Extended Release 24 Hour (Ditropan XL) Take 1 Tablet by mouth in the morning. 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 Authorizing Provider: RALPH WINCHESTER * Telephone Encounter - DEMARIO Schultz - 07/16/2023 8:50 AM EDT Received automatic refill request via fax from [facility] pharmacy for medication OXYBUTYNIN 90 day supply Patient last seen 12/28/2022 (in office), Visit date not found (telemedicine) Future appt Visit date not found documented in this encounter Plan of Treatment Upcoming Encounters Date Type Specialty Care Team Description 08/17/2023 Office Visit Cardiology Chace Peacock, DO [address] [place] [address] 09/27/2023 Office Visit [facility] [address] 10/28/2023 Office Visit Family Medicine Kumar Salinas MD [address] [place] [address] [place] [address] Health Maintenance Due Date [...] filedocumented as of this encounter Care Teams Muck Boss Relationship Specialty Start Date End Date Kumar Salinas MD [address] [place] [address] [place] [address] PCP - General 04/03/09 documented as of this encounter
--- OUTSIDE RECORDS SUMMARY | 2023-10-23 19:22 | External Medical Summary | Summary of Care ---
Author Name Unknown Organization [facility] Address [address] [place] [address] Phone [phone] Care Team Providers Care Engineering Vice President Name Role Phone Kumar Salinas MD Primary Care Provider + [phone] Reason for Referral * Medication Prior Authorization - Closed Specialty Diagnoses / Procedures Referred By Contac t Referred To Contact Diagnoses Arthralgia of shoulder, unspecified laterality Rolanda Villalpando PA-C [address] [place] [address] [place] [address] Referral ID Status Reason Start Date Expiration Date Visits Re quested Visits Authorized [id number] Closed [phone] Reason for Visit * Reason Onset Date Comments Advice 05/20/2023 Encounter Details Date Type Department Care Team Description 05/20/2023 Telephone Family Medicine [address] [place] [phone] Kumar Salinas MD [address] [place] [address] [place] [address] Advice Allergies Active Allergy Reactions Severity Noted Date Comments Crab (Diagnostic) 04/05/2018 Food (See Comments) 07/24/2015 Broccoli, beans, cauliflower - cause gas Grapefruit, oranges - cause bronchitis - positive skin test Paroxetine Hydrochloride 04/03/2009 Penicillins 04/03/2009 Blisters on hands Peanut-Containing Drug Products Abdominal pain Medium 07/24/2015 Gas, bloating documented as of this encounter (statuses as of 05/20/2023) Medications Medication Sig Dispensed Refills Start Date [...] c (ASCORBIC ACID) 500 MG Tablet Take 500 mg by mouth daily. 0 Active Coenzyme Q10 (COQ-10) 100 MG CAPS Take 1 Cap by mouth daily. 0 Active MEDICAL INSTRUCTIONS Use as directed. CPAP during night as ordered 0 Active Cholecalciferol (VITAMIN D-3) 1000 units Capsule Take 1,000 Units by mouth daily. 0 Active venlafaxine XR (EFFEXOR XR) 37.5 MG CP24 Take 37.5 mg by mouth daily. 0 Active Glucose Blood (ONETOUCH VERIO) STRP Test blood sugar once daily as directed; dx E11.9 100 Strip 3 06/28/2019 Active triamcinolone acetonide (ARISTOCORT) 0.1 % creamIndications:In trinsic eczema Apply topically to affected area 2 times a day. To affected area. 15 g 5 01/11/2020 Active Magnesium Oxide 400 (240 Mg) MG Tablet Take 400 mg by mouth daily. 0 Active zinc gluconate 50 MG Tablet Take 50 mg by mouth daily. 0 Active OneTouch Delica Lancets 30GIndications:DM type 2, 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% ([facility]) TEST BLOOD SUGAR ONCE DAILY [...] 10 MEQ Oral Tablet Extended Release Take 20 mEq by mouth 2 times a day. 0 03/13/2021 Active Wixela Inhub 250-50 MCG/DOSE Inhalation Aerosol Powder Breath Activated (Fluticasone-Salmet leah) INHALE 1 PUFF BY MOUTH 2 TIMES A DAY. 180 Each 3 01/12/2022 Active Lumigan 0.01 % Ophthalmic Solution Instill into both eyes 1 Drop at bedtime . 0 03/27/2022 Active Ketoconazole 2 % External Cream APPLY SPARINGLY TO AFFECTED AREA TWICE A DAY 0 05/18/2022 Active Ferrous Sulfate 325 (65 Fe) MG Oral Tablet (Feosol)Indications :Iron deficiency anemia, unspecified iron deficiency anemia type TAKE 1 TABLET BY MOUTH TWICE A DAY 180 Tablet 3 09/05/2022 Active Nystatin 756971 UNIT/GM External CreamIndications:Ca ndida infection Apply to affected area 2-3 times daily for 5 days 45 g 1 09/17/2022 Active Nystatin 353198 UNIT/GM External Powder (Nystop)Indications :Brunilda infection Apply topically to affected area 2 times a day . 30 g 1 09/17/2022 Active Atorvastatin Calcium 20 MG Oral Tablet (Lipitor)Indication s:Paroxysmal atrial fibrillation (HCC),Dyslipidemia, goal LDL below 100,Atherosclerosis of camp[place] coronary artery of [place]o heart without angina pectoris take one pill by mouth at bedtime 90 Tablet 1 11/17/2022 Active Fluticasone-Salmete rol 250-50 MCG/ACT Inhalation Aerosol Powder Breath Activated (Wixela Inhub) Inhale 1 Puff by mouth in the morning and 1 Puff before bedtime. 180 Each 3 01/11/2023 Active Fluticasone Propionate 50 MCG/ACT Nasal Suspension (Flonase) Administer 2 Sprays into each nostril every morning. 48 mL 3 01/20/2023 Active Oxybutynin Chloride ER 10 MG Oral Tablet Extended Release 24 Hour (Ditropan XL) Take 1 Tablet by mouth in the morning. 90 Tablet 1 02/01/2023 Active metFORMIN HCl 850 MG Oral Tablet (Glucophage)Indicat ions:Type 2 diabetes mellitus with hemoglobin A1c goal of less than 7.0% (HCC) TAKE 1 TABLET BY MOUTH TWICE A DAY WITH BREAKFAST AND DINNER 180 Tablet 1 01/30/2023 Active Metoprolol Tartrate 25 MG Oral Tablet (Lopressor)Indicati ons:Atherosclerosis of [place] coronary artery of [place] heart without angina pectoris,Paroxysmal atrial fibrillation (HCC),Essential [...] Pain, Mild. 10 Tablet 0 05/20/2023 Active documented as of this encounter (statuses as of 05/20/2023) Active Problems Problem Noted Date Central stenosis [...] nonallergic 11/04/2017 Dyslipidemia, goal LDL below 100 02/16/2 017 Paroxysmal atrial fibrillation 6 CURTIS (stress [...] 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 Atherosclerosis of campo co ronary artery of campo heart without angina pectoris Adjustment disorder with depressed mood documented as of this encounter (statuses as of 05/20/2023) Resolved Problems Problem Noted Date Resolved Date Type 2 diabetes mellitus wit h stage 3 chronic kidney disease, without long-term current use of insulin 05/22/2019 05/02/2021 CKD (chronic kidney disease), stage III 03/08/20 [...] moderate persistent 09/23/201208/30 Genetic Sleep Disorder Research Other*[id number] 09/12/2012 06/25/2016 Obesity, Class II, BMI 35-39.9, [...] as of this encounter (statuses as of 05/20/2023) Immunizations Name Administration Dates Next Due COVID-19 mRNA, LNP-s, No Pre serve, 2-Dose Series (Moderna) 03/15/2021,02/16/2021 Covid-19 Mrna, Lnp-s, No Pre serve, Booster (Moderna) 12/02/2021 Diptheria/Tetanus (Adult) 03/22/2017 Pneumococcal Conjugate Vacc, 13 Valent (Prevnar) 04/23/2015 Pneumococcal Polysaccharide PPV23 (Pneumovax) 11/29/2005 Seasonal Influenza, Quadriva lent Hd (Fluzone Hd) 09/17/2022,10/17/2021 Seasonal Influenza, Quadriva lent, No Preserve, 6 Mons & Above, IM 08/29/2019,10/03/2018,09/29/2017 Seasonal Influenza, Quadriva lent, No Preserve, Adjuvanted, 65+ Yrs, IM 08/13/2020 Seasonal Influenza, Quadriva lent, No Preserve, IM 10/12/2016 Seasonal Influenza, Split, I IV3, With Preserve, Inj 09/12/2015,08/14/2014,11/14/2013,10/06,09/01/2011,08/28/2010 TDAP (age 10 and older)(Boostrix) 09/19/2017 TDAP (age 11 and older)(Adacel) 07/29/2012 documented as of this encounter Social History Tobacco Use Types Packs/Day Years Used Date Smoking Tobacco: Never Smokeless Tobacco: Never Alcohol Use Standard Drinks/Week [...] encounter Miscellaneous Notes * Telephone Encounter - Lilibeth Zurita LPN - 05/20/2023 4:21 PM EDT All aware. * Telephone Encounter - Rolanda Villalpando PA-C - 05/20/2023 3:59 PM EDT Med sent to pharm. * Telephone Encounter - Lilibeth Zurita LPN - 05/20/2023 3:06 PM EDT Juliana talked to me stating this pt's signifcant other, All Gallo came in today and told her pt was[facility] ER 05[facility]. Was given Hydrocodone (norco) 5-325, but [facility] said it is not available. Asking if provider could send a Rx for this to another pharmacy. Wanted it sent to [facility] pharmacy. I told Juliana we will call pt once this is message is addressed. All was asking if this could be sent to [facility]. The script was written as Hydrocodone-Acetaminophen 5-325 mg 1-2 tablets every 6 hours as needed for pain. 10 tablets I called [facility] to verify Hydrocodone is unavailable. The pharmacist said that was correct. I also called [facility] to see if Hydrocodone 5-325 is available. Please advise if this can be sent to [facility] pharmacy. Thanks. All is in the waiting area. I told him I would call him/pt when this is addressed. He said he will wait. I did tell him I have no idea when this will be addressed. He voiced understanding. * Telephone Encounter - Juliana García - 05/20/2023 2:55 PM EDT Patient was in ER at [facility] And was prescribed Hydrocodone 5/325 every for hours for pain and also Ibuprofen 600 every six hours. [facility] Patient want it switched to [facility]. Needs family doctor to call it in if possible. Please advise on what to do about meds. [phone] documented in this encounter Plan of Treatment Upcoming Encounters Date Type Specialty Care Team Description 05/25/2023 Office Visit Family Medicine Kumar Salinas MD [address] [place] [address] [place] [address] 06/30/2023 Office Visit Dermatology Megan Carr PA-C [address] [place] [address] [place] [address] 08/17/2023 Office Visit Cardiology Chace Peacock, DO [address] [place] [address] 10/28/2023 Office Visit Family Medicine Kumar Salinas MD [address] [place] [address] [place] [address] Health Maintenance Due Date Last Done Comments Zoster Vaccines (1 of 2) 1989 Depression Screening, Annual for Pts 12 and Over 04/29/2021 04/29/2020 COVID-19 Vaccine (4 - Moderna series) 01/27/2022 12/02/2021, 03/15/2021, 02/16/2021 HbA1c 10/28/2023 04/28/2023, 10/30, 05/14/2022, Additional history [...] Pneumococcal Vaccine: 65+ Years Completed 04/23/2015, 11/29/2005 Influenza Vaccine (FLU shot) Completed , 10/17/2021, 08/13/2020, Additional history exists GARDASIL-HPV IMMUNIZATION SERIES Aged Out No longer [...] as of this encounter Visit Diagnoses Diagnosis Arthralgia of shoulder, unspecified laterality- Primary documented in this encounter Care Teams Engineering Vice President Relationship Specialty Start Date End Date Kumar Salinas MD [address] [place] [address] [place] [address] PCP - General 04/03/09 documented as of this encounter
--- OUTSIDE RECORDS SUMMARY | 2023-10-23 19:22 | External Medical Summary | Summary of Care ---
Author Name Unknown Organization [facility] Address [address] [place] [address] Phone [phone] Care Team Providers Care Rebar Bender Name Role Phone Kumar Salinas MD Primary Care Provider + [phone] Reason for Referral * Evaluate & Treat - Unlimited Visits (Within 10 days (routine)) - Authorized Specialty Diagnoses / Procedures Referred By Evangelist osborne Referred To Contact Physical Therapy / Physical Medicine And Rehab Diagnoses At risk for falls Personal history of fall MayRudi MD [address] [place] [address] Referral ID Status Reason Start Date Expiration Date Visits Requested Visits Authorized [id number] Authorized Specialty Services Required 07/05/2023 999 999 Question Answer Referral Priority Within 10 days (routine) Comments Balance training. Three falls this summer. Reason for Visit * Reason Comments Acute Had a fall and incre ase blood pressure Encounter Details Date Type Department Care Team Description 07/05/2023 Office Visit [facility] [address] [place] [address] Rudi Garrett MD [address] [place] [address] At risk for falls*; Personal history of fall; Primary hypertension Allergies Active Allergy Reactions Severity Noted Date Comments Crab (Diagnostic) 04/05/2018 Food (See Comments) 07/24/2015 Broccoli, beans, cauliflower - cause gas Grapefruit, oranges - cause bronchitis - positive skin test Paroxetine Hydrochloride 04/03/2009 Penicillins 04/03/2009 Blisters on hands Peanut-Containing Drug Products Abdominal pain Medium 07/24/2015 Gas, bloating documented as of this encounter (statuses as of 07/05/2023) Medications Medication Sig Dispensed Refills Start Date [...] 2, 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% ([facility]) TEST BLOOD SUGAR ONCE DAILY DIRECTED DX [...] DAY 180 Tablet 3 09/05/2022 Active Nystatin 825389 UNIT/GM External CreamIndications:Ca ndida infection Apply to affected area 2-3 times daily for 5 days 45 g 1 09/17/2022 Active Nystatin 953212 UNIT/GM External Powder (Nystop)Indications :Brunilda infection Apply [...] 25 MG Oral Tablet (Lopressor)Indicati ons:Atherosclerosis of [place] coronary artery of [place] heart without angina pectoris,Paroxysmal atrial fibrillation (HCC),Essential [...] fibrillation (HCC),Dyslipidemia, goal LDL below 100,Atherosclerosis of [place] coronary artery of [place] heart without angina pectoris TAKE ONE PILL BY MOUTH AT BEDTIME 90 Tablet 1 06/13/2023 Active documented as of this encounter (statuses as of 07/05/2023) Active Problems Problem Noted Date Central stenosis [...] 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 Atherosclerosis of [place] co ronary artery of [place] heart without angina pectoris Adjustment disorder with depressed mood documented as of this encounter (statuses as of 07/05/2023) Resolved Problems Problem Noted Date Resolved Date [...] moderate persistent 09/23/201208/30 Genetic Sleep Disorder Research Other*[id number] 09/12/2012 06/25/2016 Obesity, Class II, BMI 35-39.9, [...] as of this encounter (statuses as of 07/05/2023) Immunizations Name Administration Dates Next Due COVID-19 [...] Passive Smoke Exposure: Past Smokeless Tobacco: Never Tobacco Cessation:Counseling Given: Not Answered Alcohol Use Standard Drinks/Week Comments Yes 0 [...] Sign Reading Time Taken Comments Blood Pressure 142/64 07/05/2023 4:22 PM EDT Pulse 60 07/05/2023 4:22 PM EDT Temperature 36.2 C (97.1 F) 07/05/2023 4:22 PM ED T Respiratory Rate 20 07/05/2023 4:22 PM EDT Oxygen Saturation 98% 07/05/2023 4:22 PM EDT Inhaled Oxygen Concentration - - Weight - - Height - - Body Mass Index - - documented in this encounter Progress Notes * Rudi Garrett MD - 07/05/2023 5:17 PM EDT Images from the original note were not included. Assessment and Plan 83-year-old female with multiple recent falls. She already has physical therapy set up to work on her right shoulder pain and weakness that is a result of the fall earlier this summer. She will starton Wednesday and . We will request balance training be added to her current physical therapy regimen. May warrant referral to balance center in [place] in the future. From a blood pressure perspective she is at 142/64 in office today. I would like her to get an Omron 3 blood pressure cuffand check blood pressures at home prior to make any changes to her BP meds. I worry that adding anyfurther BP meds we will add to her polypharmacy and put her risk of hypotension and falls. She was p reviously on amlodipine which would be the ideal medication if another medication must be added, however, she had some issues with swelling with this med. Could do a 2nd trial if necessary based on BP. 1. At risk for falls - PHYSICAL THERAPY REFERRAL OP 2. Personal history of fall - PHYSICAL THERAPY REFERRAL OP 3. Primary hypertension Wrap-Up Follow up as needed. History of Present Illness 83-year-old female with history of multiple falls, type 2 diabetes, DEMARIO, GERD, DDD, hypertension who presents for follow up of hypertension recent falls. Patient has had 3 falls since . Most recently on 07/01/2023. She was hanging onto her 's arm lung through the home when she felt he walked a little bit too fast and she fell onto the ground in between 2 pieces of furniture. She was unable to stand up and therefore EMS had to be called. She was evaluated and was not found to have any fractures. He presents today to discuss bloodpressure as her blood pressure was elevated at 190 over 80 per EMS. Blood pressure in office today is 142/64. This is confirmed on repeat. Her current medications include chlorthalidone 25 mg daily, losartan 100 mg daily, metoprolol 25 mg twice daily. She does not check her blood pressures at home.She denies lightheadedness or dizziness. No chest pain or shortness a breath. Physical Exam Vitals: 07/05/23 1622 Temp: 36.2 C (97.1 F) Pulse: 60 Resp: 20 SpO2: 98% BP: 142/64 Physical Exam Physical Exam Vitals reviewed. Constitutional: General: She is not in acute distress. Comments: Mobility with a wheelchair. Cardiovascular: Rate and Rhythm: Normal rate and regular rhythm. Heart sounds: No murmur heard. Pulmonary: Effort: Pulmonary effort is normal. No respiratory distress. Breath sounds: Normal breath sounds. No wheezing. Skin: Comments: Ecchymosis overlying the right knee. Neurological: General: No focal deficit present. Mental Status: She is alert. documented in this encounter Nursing Notes * Mariajose Paz LPN - 07/05/2023 4:13 PM EDT Chief Complaint Patient presents with Acute Had a fall and increase blood pressure documented in this encounter Plan of Treatment Upcoming Encounters Date Type Specialty Care Team Description 08/17/2023 Office Visit Cardiology Chace Peacock, DO [address] [place] [address] 09/27/2023 Office Visit Dermatology Keegan Godwin MD [address] [place], [place] [address] [address] 10/28/2023 Office Visit Family Medicine Kumar Salinas MD [address] [place] [address] [place] [phone] Scheduled Referrals Name Type Priority Associated Diagnoses Orde r Schedule PHYSICAL THERAPY REFERRAL OP Referral Within 10 days (routine) At risk for falls Personal history of fall Ordered: 07/05/2023 Health Maintenance Due Date Last Done Comments [...] as of this encounter Visit Diagnoses Diagnosis At risk for falls- Primary Personal history of fall Personal history of fall Primary hypertension Unspecified essential hypertension documented in this encounter Care Teams Rebar Bender Relationship Specialty Start Date End Date Kumar Salinas MD [address] [place] [address] [place] [address] PCP - General 04/03/09 documented as of this encounter
--- OUTSIDE RECORDS SUMMARY | 2023-10-23 19:22 | External Medical Summary ---
Author Name Unknown Address Unknown Organization [id number]:[facility]ORY [facility] - [address] [facility] [address] Laboratory Report Ordering Provider Test Date Status MARKIE BUI 04/28/2023 14:28:34 Final Observation Date Value Abnormality Reference (Units ) Status BUN 04/28/2023 14:28:34 15 6-20 (mg/dL) Final Creatinine 04/28/2023 14:28:34 0.9 0.5-1.0 (mg/dL) Final Glomerular filtration rate/1.73 sq M.predicted [Volume Rate/Area] in Serum, Plasma or Blood by Creatinine-based formula (CKD-EPI) 04/28/2023 14:28:34 65 >=60 (mL/min) Final eGFR is calculated based on the CKD-EPI 2020 equation SODIUM 04/28/2023 14:28:34 137 135-146 (m mol/L) Final Potassium 04/28/2023 14:28:34 4.5 3.5-5.1 (m mol/L) Final Cl 04/28/2023 14:28:34 99 98-107 (mm ol/L) Final CO2 04/28/2023 14:28:34 25 22-32 (mmo l/L) Final Anion gap 04/28/2023 14:28:34 13 7-15 (mmol /L) Final Glucose 04/28/2023 14:28:34 118 70-120 (mg /dL) Final Albumin 04/28/2023 14:28:34 4.1 3.8-5.0 (g /dL) Final AST (Aspartate aminotransferase) 04/28/2023 14:28:34 14 10-35 (U/L) Final Alk Phos 04/28/2023 14:28:34 62 35-130 (U/ L) Final Bilirubin, Total 04/28/2023 14:28:34 0.2 <=1 .2 (mg/dL) Final Calcium 04/28/2023 14:28:34 9.6 8.4-10.2 ( mg/dL) Final Protein 04/28/2023 14:28:34 6.1 6.0-8.3 (g /dL) Final ALT (Alanine aminotransferase) 04/28/2023 14:28:34 17 10-35 (U/L) Final Performing Location [facility] - [facility] [address] [facility] [address]
--- OUTSIDE RECORDS SUMMARY | 2023-10-23 19:22 | External Medical Summary ---
Author Name Unknown Address Unknown Organization [id number]:LAB[facility]ORY [facility] - [address] [place] [address] Laboratory Report Ordering Provider Test Date Status MARKIE BUI 04/28/2023 14:28:34 Final Observation Date Value Abnormality Reference (Units ) Status Iron 04/28/2023 14:28:34 69 33-151 (ug /dL) Final Iron-binding capacity 04/28/2023 14:28:34 283 250-425 (ug/dL) Final Transferrin Sat % 04/28/2023 14:28:34 24 15 -55 (%) Final Performing Location LAB[facility]ATORY [facility] - [address] [place] [address]
--- OUTSIDE RECORDS SUMMARY | 2023-10-23 19:22 | External Medical Summary ---
Author Name Unknown Address Unknown Organization [id number]:[facility] [place] [address] [facility] [address] Laboratory Report Ordering Provider Test Date Status MARKIE BUI 04/28/2023 14:28:34 Final Observation Date Value Abnormality Reference (Units ) Status WBC, Total 04/28/2023 14:28:34 10.18 4.00-10.80 (K/uL) Final RBC 04/28/2023 14:28:34 4.33 3.85-5.15 (M/uL) Final Hemoglobin 04/28/2023 14:28:34 12.9 12.0-15.3 (g/dL) Final HCT 04/28/2023 14:28:34 41.8 36.0-45.2 (%) Final MCV 04/28/2023 14:28:34 96.5 81.5-97.5 (fL) Final MCH 04/28/2023 14:28:34 29.8 27.0-34.0 (pg) Final MCHC 04/28/2023 14:28:34 30.9 32.0-36.0 (g/dL) Final RDW 04/28/2023 14:28:34 14.9 11.5-15.5 (%) Final Platelets 04/28/2023 14:28:34 290 140-400 (K/uL) Final MPV 04/28/2023 14:28:34 11.6 6.6-11.1 (fL) Final Nucleated erythrocytes/100 leukocytes [Ratio] in Blood by Automated count 04/28/2023 14:28:34 0 <=0 (/100 WBCs) Final Performing Location [facility] [place] [address] [facility] [address]
--- OUTSIDE RECORDS SUMMARY | 2023-10-23 19:22 | External Medical Summary | Summary of Care ---
Author Name Unknown Organization [facility] Address [address] [place] [address] Phone [phone] Care Team Providers Care Cost Estimating Manager Name Role Phone Kumar Salinas MD Primary Care Provider Reason for Visit * Reason Comments Outpatient Testing Encounter Details Date Type Department Care Team Description 04/28/2023 Laboratory Laboratory [address] [place] [id number] [facility] [address] [place] [address] Gastroesophageal reflux disease with esophagitis 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; Encounter for long-term (current) use of other medications; Iron deficiency anemia, unspecified iron deficiency anemia type; Acquired hypothyroidism; 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) Allergies Active Allergy Reactions Severity Noted Date Comments Crab (Diagnostic) 04/05/2018 Food (See Comments) 07/24/2015 Broccoli, beans, cauliflower - cause gas Grapefruit, oranges - cause bronchitis - positive skin test Paroxetine Hydrochloride 04/03/2009 Penicillins 04/03/2009 Blisters on hands Peanut-Containing Drug Products Abdominal pain Medium 07/24/2015 Gas, bloating documented as of this encounter (statuses as of 04/29/2023) Medications Medication Sig Dispensed Refills Start Date [...] 2, 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% ([facility]) TEST BLOOD SUGAR ONCE DAILY DIRECTED DX [...] DAY 180 Tablet 3 09/05/2022 Active Nystatin 128706 UNIT/GM External CreamIndications:Ca ndida infection Apply to affected area 2-3 times daily for 5 days 45 g 1 09/17/2022 Active Nystatin 368314 UNIT/GM External Powder (Nystop)Indications :Brunilda infection Apply topically to affected area 2 times a day . 30 g 1 09/17/2022 Active Atorvastatin Calcium 20 MG Oral Tablet (Lipitor)Indication s:Paroxysmal atrial fibrillation (HCC),Dyslipidemia, goal LDL below 100,Atherosclerosis of [place] coronary artery of [place] heart without angina pectoris take one pill [...] AND DINNER 180 Tablet 1 01/30/2023 Active Levothyroxine Sodium 100 MCG Oral Tablet (Levoxyl) TAKE 1 TABLET BY MOUTH DAILY AT LEAST 30 MINUTES PRIOR TO BREAKFAST OR OTHER MEDICATION 90 Tablet 1 01/30/2023 Active Metoprolol Tartrate 25 MG Oral Tablet (Lopressor)Indicati ons:Atherosclerosis of [place] coronary artery of [place] heart without angina pectoris,Paroxysmal atrial fibrillation (HCC),Essential [...] THE MORNING 90 Tablet 1 04/17/2023 Active documented as of this encounter (statuses as of 04/29/2023) Active Problems Problem Noted Date Central stenosis [...] 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 Atherosclerosis of [place] co ronary artery of [place] heart without angina pectoris Adjustment disorder with depressed mood documented as of this encounter (statuses as of 04/29/2023) Resolved Problems Problem Noted Date Resolved Date [...] moderate persistent 09/23/201208/30 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 09/12/2012 06/25/2016 Obesity, Class II, BMI 35-39.9, [...] as of this encounter (statuses as of 04/29/2023) Immunizations Name Administration Dates Next Due COVID-19 [...] on file documented as of this encounter Plan of Treatment Upcoming Encounters Date Type Specialty Care Team Description 06/30/2023 Office Visit Dermatology Megan Carr PA-C [address] [place] [address] [place] [address] 08/17/2023 Office Visit Cardiology Chace Peacock, DO [address] [place] [id number] 10/28/2023 Office Visit Family Medicine Kumar Salinas MD [address] [place] [address] [place] [address] Health Maintenance Due Date Last Done Comments Zoster Vaccines (1 of 2) 1989 Depression Screening, Annual for Pts 12 and Over 04/29/2021 04/29/2020 COVID-19 Vaccine (4 - Booster for Moderna series) 01/27/2022 12/02/2021, 03/15/2021, 02/16/2021 HbA1c [...] Not on filedocumented as of this encounter Procedures Procedure Name Priority Date/Time Associated Diagnosis Comments TSH WITH FREE T4 IF INDICATED Routine 04/28/2023 2:28 PM EDT Acquired hypothyroidism HEMOGLOBIN A1C Routine 04/28/2023 2:28 PM EDT 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) COMPREHENSIVE METABOLIC PANEL Routine 04/28/2023 2:28 PM EDT Gastroesophageal reflux disease with esophagitis 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 Encounter for long-term (current) use of other medications IRON SCREEN, INCLUDING TIBC Routine 04/28/2023 2:28 PM EDT Encounter for long-term (current) use of other medications CBC Routine 04/28/2023 2:28 PM EDT Gastroesophageal reflux disease with esophagitis 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 Encounter for long-term (current) use of other medications MAGNESIUM Routine 04/28/2023 2:28 PM EDT Gastroesophageal reflux disease with esophagitis 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 FERRITIN Routine 04/28/2023 2:28 PM EDT Encounter for long-term (current) use of other medications Iron deficiency anemia, unspecified iron deficiency anemia type VITAMIN B12 Routine 04/28/2023 2:28 PM EDT Gastroesophageal reflux disease with esophagitis 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 Encounter for long-term (current) use of other medications documented in this encounter Results * (ABNORMAL) HEMOGLOBIN A1C (04/28/2023 2:28 PM EDT) Hemoglobin A1C 6.3(H) 4.0 - 5.6 % 04/29/2023 12:[address] [facility] Comment:The use of HbA1c to monitor glycemic status is based on normal hemoglobin and HbA composition. This test should not be used in patients with abnormal hemoglobin that affects the half life of the red blood cell or the in vivo glycation rates. Estimated Average Glucose 134(H) <126 mg/dL 04/29/2023 12:[address] [facility] Blood Venous blood specimen / Unknown Venipuncture / Unknown 04/28/2023 2:28 PM EDT 04/28/2023 2:28 PM EDT Kumar Salinas MD LAB BLOOD ORDERABLES Performing Organization Address [facility] de Phone Number LABORATORY [address] [address] * TSH WITH FREE T4 IF INDICATED (04/28/2023 2:28 PM EDT) Pathologist [facility] TSH 0.50 0.27 - 4.20 uIU/mL 04/29/2023 1:[address] [facility] Blood Venous blood specimen / Unknown Venipuncture / Unknown 04/28/2023 2:28 PM EDT 04/28/2023 2:28 PM EDT Kumar Salinas MD LAB BLOOD ORDERABLES [facility]ATORY [facility] [address] [place] [address] * MAGNESIUM (04/28/2023 2:28 PM EDT) Pathologist [facility] Magnesium 1.7 1.5 - 2.6 mg/dL 04/29/2023 1:[address] [facility] Blood Venous blood specimen / Unknown Venipuncture / Unknown 04/28/2023 2:28 PM EDT 04/28/2023 2:28 PM EDT [facility] LAB BLOOD ORDVenkat HARRIS Performing Organization Address [facility] Co de Phone Number LABORATORY [facility] [address] [place] [address] * VITAMIN B12 (04/28/2023 2:28 PM EDT) Vitamin B12 654 232 - 1,245 pg/mL 04/29/2023 1:[address] [facility] Blood Venous blood specimen / Unknown Venipuncture / Unknown 04/28/2023 2:28 PM EDT 04/28/2023 2:28 PM EDT [facility] LAB BLOOD ORDVenkat H[place]IS Performing Organization Address [facility] Co de Phone Number LABORATORY [facility] [address] [place] [address] * FERRITIN (04/28/2023 2:28 PM EDT) Ferritin 68 13 - 150 ng/mL 04/29/2023 1:[address] [facility] Comment:Postmenopausal women have higher ferritin levels than pre-menopausal women. The above reference interval is based on pre-menopausal women. Blood Venous blood specimen / Unknown Venipuncture / Unknown 04/28/2023 2:28 PM EDT 04/28/2023 2:28 PM EDT [facility] LAB BLOOD ORDVenkat H[place]IS Performing Organization Address [facility] Co de Phone Number LABORATORY [facility] [address] [place] [address] * IRON SCREEN, INCLUDING TIBC (04/28/2023 2:28 PM EDT) Iron 69 33 - 151 ug/dL 04/29/2023 1:[address] [facility] Iron Binding Capacity 283 250 - 425 ug/dL 04/29/2023 1:25 AM EDT LABORATORY C Transferrin Saturation Percent 24 15 - 55 % 04/29/2023 1:[address] [facility] Blood Venous blood specimen / Unknown Venipuncture / Unknown 04/28/2023 2:28 PM EDT 04/28/2023 2:28 PM EDT [place] [facility] LAB BLOOD ORDE STEVEN [facility] [address] [place] [address] * COMPREHENSIVE METABOLIC PANEL (04/28/2023 2:28 PM EDT) BUN 15 6 - 20 mg/dL 04/29/2023 1:25 AM EDT [facility] Creatinine 0.9 0.5 - 1.0 mg/dL 04/29/2023 1:25 AM EDT LABORATORY GM Estimated Glomerular Filtration Rate 65 >=60 mL/min 04/29/2023 1:25 AM EDT [facility] Comment:eGFR is calculated b ased on the CKD-EPI 2020 equation Sodium 137 135 - 146 mmol/L 04/29/2023 1:25 AM EDT [facility] Potassium 4.5 3.5 - 5.1 mmol/L 04/29/2023 1:25 AM EDT [facility] Chloride 99 98 - 107 mmol/L 04/29/2023 1:25 AM EDT [facility] CO2 25 22 - 32 mmol/L 04/29/2023 1:25 AM EDT [facility] Anion Gap 13 7 - 15 mmol/L 04/29/2023 1:25 AM EDT [facility] Glucose 118 70 - 120 mg/dL 04/29/2023 1:25 AM EDT [facility] Albumin 4.1 3.8 - 5.0 g/dL 04/29/2023 1:25 AM EDT [facility] AST 14 10 - 35 U/L 04/29/2023 1:25 AM EDT [facility] Alkaline Phosphatase 62 35 - 130 U/L 04/29/2023 1:25 AM EDT [facility] Bilirubin, Total 0.2 <=1.2 mg/dL 04/29/2023 1:25 AM EDT [facility] Calcium 9.6 8.4 - 10.2 mg/dL 04/29/2023 1:25 AM EDT [facility] Protein 6.1 6.0 - 8.3 g/dL 04/29/2023 1:25 AM EDT [facility] ALT 17 10 - 35 U/L 04/29/2023 1:25 AM EDT [facility] Blood Venous blood specimen / Unknown Venipuncture / Unknown 04/28/2023 2:28 PM EDT 04/28/2023 2:28 PM EDT [facility] LAB BLOOD ORDE STEVEN [facility] [address] [place] [address] * CBC (04/28/2023 2:28 PM EDT) WBC 10.18 4.00 - 10.80 K/uL 04/28/2023 11:59 PM EDT [facility] RBC 4.33 3.85 - 5.15 M/uL 04/28/2023 11:59 PM EDT [facility] HGB 12.9 12.0 - 15.3 g/dL 04/28/2023 11:59 PM EDT [facility] HCT 41.8 36.0 - 45.2 % 04/28/2023 11:59 PM EDT [facility] MCV 96.5 81.5 - 97.5 fL 04/28/2023 11:59 PM EDT [facility] MCH 29.8 27.0 - 34.0 pg 04/28/2023 11:59 PM EDT [facility] MCHC 30.9 32.0 - 36.0 g/dL 04/28/2023 11:59 PM EDT [facility] RDW 14.9 11.5 - 15.5 % 04/28/2023 11:59 PM EDT [facility] PLT 290 140 - 400 K/uL 04/28/2023 11:59 PM EDT [facility] MPV 11.6 6.6 - 11.1 fL 04/28/2023 11:59 PM EDT [facility] nRBCs 0 <=0 /100 WBCs 04/28/2023 11:59 PM EDT [facility] Blood Venous blood specimen / Unknown Venipuncture / Unknown 04/28/2023 2:28 PM EDT 04/28/2023 2:28 PM EDT [facility] LAB BLOOD ORDE STEVEN 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
--- OUTSIDE RECORDS SUMMARY | 2023-10-23 19:22 | External Medical Summary ---
Author Name Unknown Address Unknown Organization [id number]:[facility] [place] - [address] [place] [address] Laboratory Report Ordering Provider Test Date Status MARKIE BUI 04/28/2023 14:28:34 Final Observation Date Value Abnormality Reference (Units ) Status Vitamin B12 04/28/2023 14:28:34 [id number] (pg/mL) Final Performing Location [facility] - [address] [place] [address]
--- OUTSIDE RECORDS SUMMARY | 2023-10-23 19:22 | External Medical Summary | Summary of Care ---
Author Name Unknown Organization [facility] Address [address] [place] [address] Phone [phone] Care Team Providers Care Mica Sizer Name Role Phone Kumar Salinas MD Primary Care Provider Reason for Visit * Reason Comments Emergency Department Follow-Up Encounter Details Date Type Department Care Team Description 05/25/2023 Office Visit Family Medicine [address] [address] Kumar Salinas MD [address] [place], [place] [address] [address] Contusion of multiple sites of right shoulder and upper arm, subsequent encounter*; Obesity, Class I, BMI 30.0-34.9 (see actual BMI) Allergies Active Allergy Reactions Severity Noted Date Comments Crab (Diagnostic) 04/05/2018 Food (See Comments) 07/24/2015 Broccoli, beans, cauliflower - cause gas Grapefruit, oranges - cause bronchitis - positive skin test Paroxetine Hydrochloride 04/03/2009 Penicillins 04/03/2009 Blisters on hands Peanut-Containing Drug Products Abdominal pain Medium 07/24/2015 Gas, bloating documented as of this encounter (statuses as of 05/25/2023) Medications Medication Sig Dispensed Refills Start Date [...] < 7.5% ([facility]) TEST BLOOD SUGAR ONCE DAILY DIRECTED DX [...] DAY 180 Tablet 3 09/05/2022 Active Nystatin 624976 UNIT/GM External CreamIndications:Ca ndida infection Apply to affected area 2-3 times daily for 5 days 45 g 1 09/17/2022 Active Nystatin 078174 UNIT/GM External Powder (Nystop)Indications :Brunilda infection Apply topically to affected area 2 times a day . 30 g 1 09/17/2022 Active Atorvastatin Calcium 20 MG Oral Tablet (Lipitor)Indication s:Paroxysmal atrial fibrillation (HCC),Dyslipidemia, goal LDL below 100,Atherosclerosis of [place] coronary artery of [place] heart without angina pectoris take one pill [...] hemoglobin A1c goal of less than 7.0% ([facility]) TAKE 1 TABLET BY MOUTH TWICE A DAY WITH BREAKFAST AND DINNER 180 Tablet 1 01/30/2023 Active Metoprolol Tartrate 25 MG Oral Tablet (Lopressor)Indicati ons:Atherosclerosis of [place] coronary artery of [place] heart without angina pectoris,Paroxysmal atrial fibrillation (HCC),Essential [...] Pain, Mild. 10 Tablet 0 05/20/2023 Active predniSONE 20 MG Oral Tablet (Deltasone)Indicati ons:Contusion of multiple sites of right shoulder and upper arm, subsequent encounter One daily for 10 days 10 Tablet 0 05/25/2023 06/04/2023 Active documented as of this encounter (statuses as of 05/25/2023) Active Problems Problem Noted Date Central stenosis [...] 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 Atherosclerosis of [place] co ronary artery of [place] heart without angina pectoris Adjustment disorder with depressed mood documented as of this encounter (statuses as of 05/25/2023) Resolved Problems Problem Noted Date Resolved Date [...] moderate persistent 09/23/201208/30 Genetic Sleep Disorder Research Other*[id number] 09/12/2012 06/25/2016 Obesity, Class II, BMI 35-39.9, [...] as of this encounter (statuses as of 05/25/2023) Immunizations Name Administration Dates Next Due COVID-19 [...] Sign Reading Time Taken Comments Blood Pressure 128/70 05/25/2023 1:42 PM EDT Pulse 68 05/25/2023 1:42 PM EDT Temperature 36.2 C (97.2 F) 05/25/2023 1:42 PM ED T Respiratory Rate 16 05/25/2023 1:42 PM EDT Oxygen Saturation - - Inhaled Oxygen Concentration - - Weight 79.4 kg (175 lb) 05/25/2023 1:42 PM EDT Height 154.1 cm (5' 0.65") 05/25/2023 1:42 PM ED T Body Mass Index 33.45 05/25/2023 1:42 PM EDT documented in this encounter Patient Instructions * Patient Instructions* Kumar Salinas MD - 05/25/2023 1:58 PM EDT BMI (Body Mass Index) is the number obtained by dividing a person's weight in kilograms by his or her height in meters squared. BMI is used in determining obesity. BMI is not used to determine a person's actual percentage of body fat, but it is a good tool to immigration judge weight in terms of what is healthy and unhealthy. It is used to identify adults at increased risk for developing weight related medical problems. Estimated body mass index is 33.45 kg/m as calculated from the following: Height as of this encounter: 1.541 m (5' 0.65"). Weight as of this encounter: 79.4 kg (175 lb). Obesity - BMI 30 kg/m2 to 34.9 kg/mg - Obese individuals are at risk for developing: * Heart disease * Stroke * Diabetes * High Blood Pressure * High Cholesterol * GERD (acid reflux) * Sleep Apnea * Osteoarthritis * Fatty Liver Disease * Certain Types of Cancers * Gout * Gall Bladder Disease - Weight loss has been shown to decrease weight related medical problems. - Each additional 5 unit increase in BMI at/above 25 kg/m2 is linked to a 40% increase in from heart and coronary artery disease. - The lifespan of those with a BMI of 30-35 kg/m2 is reduced by two to four years compared to thosewith a normal BMI. - A 12-week weight management text message program is also available. Go to Soci[employer] and seethe message under '[employer]' for more information and enrollment. Patient is Instructed to: Diet: * Limit total fat intake to no more than 40 grams per day (low fat diet). * Increase fruits and vegetables to 5 servings per day, combined. * Limited starches (breads, pasta, rice, potatoes, corn, cereals) to 4 servings per day. Avoid Calorie Containing Drinks: * No fruit juices, regular sodas or sweetened drinks. * Water is preferred - 64 ounces per day unless advised of a fluid restriction. * Diet sodas and drinks permitted. Keep Honest, Accurate Food logs: * www.Picket.VirtualQube * www.[address] * If you bite it - write it! Weigh Yourself Weekly: * Morning is best. * Try to do this outside your home. * Have a friend/spouse remind you to weigh yourself, accountability to others helps. Perform 30 minutes of physical activity daily: * Can do all at once or 5 minutes 6 times per day * 8, 000-10,000 steps per day using a pedometer * Make it fun! documented in this encounter Progress Notes * Kumar Salinas MD - 05/25/2023 1:58 PM EDT Yudelka fell and hurt her right shoulder pretty bad. It got black and blue and she went to the ER on 05/12, And X-rays were negative. She is trying to get it loose, has a few hydrocodone for pain. I offered PT and she will think about it. She was told to followup with me. Patient counseling on weight management given. Past Medical History: Diagnosis Date Acquired hypothyroidism Acute blood loss anemia 08/22/2019 hgb 7.7, given 2 units Adjustment disorder with depressed mood Allergic rhinitis Asthma Atrial fibrillation (HCC) 01/08/2013 [facility] Benign hypertension with CKD (chronic kidney disease) stage III ([facility]) Benign hypertension with CKD (chronic kidney disease), stage II 04/01/2021 BMI 36.0-36.9,adult Calcium deposit in bursa, unspecified hip Cataract, nuclear sclerotic, both eyes Central stenosis of spinal canal 06/11/2021 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 Coronary atherosclerosis of [place] coronary artery DM type 2, goal HbA1c < 7% ([facility]) 05/07/2018 hgba1c 7.3 Dyslipidemia, goal LDL below 100 GERD (gastroesophageal reflux disease) Glaucoma 05/29/2014 lt eye Hiatal hernia moderate Lyme disease 06/08/2011 doxycycline persistent tremor, treated with cholestyramine Menopause Posttraumatic hematoma of right breast 09/09/2018 seen on mammogram and ultrasound Presbyphonia Primary hypertension Pulmonary embolus (HCC) 30s was on BCP Sleep apnea, obstructive 11/21/2012 11/21/12 -- BIPAP set at 12/10 -- start auto BIPAP DME - Rashida Subjective tinnitus 09/23/2012 Symptomatic menopausal or female climacteric states Past Surgical History: Procedure Laterality Date BREAST LESION,OTHER,EXCISION Bilateral cysts removed in her 20s COLONOSCOPY, REMOVE LESION, W/SNARE 04/23/2020 5 mm sessile adenomatous polyp transverse colon, large internal hemorrhoids CORONARY ARTERY DILATION, BALLOON 01/30/[address] [place] [address] ABDOMEN/PELVIS 04/04/2013 acute distal sigmoid colon diverticulitis, no free air. 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, clipped, 2 cm polyp in proximal body of stomach removed EMG 1 EXTREMITY Left 04/22/2021 normal HC MRI CERVICAL SPINE W/CONTRAST N/A 06/11/2021 severe spinal canal stenosis at C6-7 HC MRI CERVICAL SPINE WITHOUT CONTRAST N/A 06/11/2021 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 KNEE ARTHROSCOPY, DIAGNOSTIC 2001 2003 Knee Arthroscopy RIGHT AND LEFT KNEE ARTHROSCOPY/MENISCECTOMY 09/2013 left, [facility] LAPAROSCOPY;APPENDECTOMY 2006 MAMMOGRAM SCREENING BILATERAL Bilateral 07/31/2020 fibroglandular densities with stable focal asymmetry, category 2 MOBILE DXA 07/15/2012 Lumbar T +1.9, Femur T -0.9, low risk MOBILE DXA 05/31/2019 Femur T -1.0 fx risk 11%/1.9%, low/mod MOHS, 1ST STAGE; FACE, HANDS, FEET, NERVE 09/2021 MRI BRAIN W WO CONTRAST 06/08/2011 microvascular disease MRI BRAIN W WO CONTRAST N/A 05/08/2021 normal MRI C SPINE WO CONTRAST 03/01/2016 left sided spasm, multilevel degenerative changes REMOVAL OF TONSILS, AGE 12+ REMOVE CATARACT, INSERT LENS PROSTH Left 05/02/2013 [facility] REMOVE CATARACT, INSERT LENS PROSTH Right 05/25/2013 [facility] REPAIR RUPTURED ROTATOR CUFF, CHRON Left 09/12/2015 Dr De Leon [facility], rotator cuff and biceps REVISE UPPER EYELID TENDON SHEATH INCISION, FINGER right ring finger VASC DUPLEX CAROTID BILAT 06/08/2011 no blockage VASC DUPLEX VENOUS LE BILAT 03/02/2013 noDVT bilaterally VASC DUPLEX VENOUS LE BILAT 09/20/2014 No DVT, no hematoma Review of patient's allergies indicates: Allergen Reactions Peanut-Containing Drug Products Abdominal pain Gas, bloating Crab (Diagnostic) Food (See Comments) Broccoli, beans, cauliflower - cause gas Grapefruit, oranges - cause bronchitis - positive skin test Paxil [Paroxetine Hydrochloride] Pcn [Penicillins] Blisters on hands Social History Socioeconomic History Marital status: Spouse name: Not on file Number of children: 1 Years of education: Not on file Highest education level: Not on file Occupational History Not on file Tobacco Use Smoking status: Never Smokeless tobacco: Never Substance and Sexual Activity Alcohol use: Yes Comment: once a month Drug use: No Sexual activity: Not Currently Partners: Male Other Topics Concern Not on file Social History Narrative 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, 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[employer]: [employer] Social Determinants of Health Financial Resource Strain: Not on file Food Insecurity: Not on file Transportation Needs: Not on file Physical Activity: Not on file Stress: Not on file Social Connections: Not on file Intimate Partner Violence: Not on file Housing Stability: Not on file Current Outpatient Medications Medication Sig Dispense Refill ECOTRIN LOW STRENGTH 81 MG PO TBEC One pill by mouth once a day 100 5 DEXILANT 60 MG PO CPDR 1 CAPSULE DAILY 30 Cap 5 CENTRUM SILVER PO TABS 1 tab daily VITAMIN B-12 1000 MCG PO TABS 1 tab daily vitamin c (ASCORBIC ACID) 500 MG Tablet Take 500 mg by mouth daily. Coenzyme Q10 (COQ-10) 100 MG CAPS Take 1 Cap by mouth daily. MEDICAL INSTRUCTIONS Use as directed. CPAP during night as ordered Cholecalciferol (VITAMIN D-3) 1000 units Capsule Take 1,000 Units by mouth daily. venlafaxine XR (EFFEXOR XR) 37.5 MG CP24 Take 37.5 mg by mouth daily. Glucose Blood (EventMamaTOUCH VERIO) STRP Test blood sugar once daily as directed; dx E11.9 100 Strip3 triamcinolone acetonide (ARISTOCORT) 0.1 % cream Apply topically to affected area 2 times a day. To affected area. 15 g 5 Magnesium Oxide 400 (240 Mg) MG Tablet Take 400 mg by mouth daily. zinc gluconate 50 MG Tablet Take 50 mg by mouth daily. OneTouch Delica Lancets 30G TEST BLOOD SUGAR ONCE DAILY DIRECTED DX E11.9 100 Each 3 Albuterol Sulfate HFA 108 (90 Base) MCG/ACT Inhalation Aerosol Solution Inhale 2 Puffs by mouthevery 4 hours as needed for Cough, Shortness of Breath or Wheezing (and with respiratory infections). 18 g 4 Azelastine HCl 0.1 % Nasal Solution Administer 2 Sprays into each nostril every evening. 90 mL 3 Klor-Con M10 10 MEQ Oral Tablet Extended Release Take 20 mEq by mouth 2 times a day. Wixela Inhub 250-50 MCG/DOSE Inhalation Aerosol Powder Breath Activated (Fluticasone-Salmeterol) INHALE 1 PUFF BY MOUTH 2 TIMES A DAY. 180 Each 3 Lumigan 0.01 % Ophthalmic Solution Instill into both eyes 1 Drop at bedtime . Ketoconazole 2 % External Cream APPLY SPARINGLY TO AFFECTED AREA TWICE A DAY Ferrous Sulfate 325 (65 Fe) MG Oral Tablet (Feosol) TAKE 1 TABLET BY MOUTH TWICE A DAY 180 Tablet 3 Nystatin 830709 UNIT/GM External Cream Apply to affected area 2-3 times daily for 5 days 45 g 1 Nystatin 683729 UNIT/GM External Powder (Nystop) Apply topically to affected area 2 times a day. 30 g 1 Atorvastatin Calcium 20 MG Oral Tablet (Lipitor) take one pill by mouth at bedtime 90 Tablet 1 Fluticasone-Salmeterol 250-50 MCG/ACT Inhalation Aerosol Powder Breath Activated (Wixela Inhub)Inhale 1 Puff by mouth in the morning and 1 Puff before bedtime. 180 Each 3 Fluticasone Propionate 50 MCG/ACT Nasal Suspension (Flonase) Administer 2 Sprays into each nostril every morning. 48 mL 3 Oxybutynin Chloride ER 10 MG Oral Tablet Extended Release 24 Hour (Ditropan XL) Take 1 Tablet by mouth in the morning. 90 Tablet 1 metFORMIN HCl 850 MG Oral Tablet (Glucophage) TAKE 1 TABLET BY MOUTH TWICE A DAY WITH BREAKFASTAND DINNER 180 Tablet 1 Metoprolol Tartrate 25 MG Oral Tablet (Lopressor) TAKE 1 TABLET BY MOUTH TWICE A DAY 180 Tablet1 Montelukast Sodium 10 MG Oral Tablet (Singulair) Take 1 Tablet by mouth in the morning. 90 Tablet 3 Chlorthalidone 25 MG Oral Tablet (Hygroton) TAKE 1 TABLET BY MOUTH EVERY DAY IN THE MORNING 90 Tablet 1 Losartan Potassium 100 MG Oral Tablet (Cozaar) TAKE 1 TABLET BY MOUTH EVERY DAY IN THE MORNING 90 Tablet 1 Levothyroxine Sodium 100 MCG Oral Tablet (Levoxyl) TAKE 1 TABLET BY MOUTH DAILY AT LEAST 30 MINUTES PRIOR TO BREAKFAST OR OTHER MEDICATION 90 Tablet 1 HYDROcodone-Acetaminophen 5-325 MG Oral Tablet Take 1 Tablet by mouth every 6 hours as needed for Pain, Mild. 10 Tablet 0 No current facility-administered medications for this visit. Immunization History Administered Date(s) Administered COVID-19 mRNA, LNP-s, No Preserve, 2-Dose Series (Moderna) 02/16/2021, 03/15/2021 Covid-19 Mrna, Lnp-s, No Preserve, Booster (Moderna) 12/02/2021 Diptheria/Tetanus (Adult) 03/22/2017 Pneumococcal Conjugate Vacc, 13 Valent (Prevnar) 04/23/2015 Pneumococcal Polysaccharide PPV23 (Pneumovax) 11/29/2005 Seasonal Influenza, Quadrivalent Hd (Fluzone Hd) 10/17/2021, 09/17/2022 Seasonal Influenza, Quadrivalent, No Preserve, 6 Mons & Above, IM 09/29/2017, 10/03/2018, 08/29/2019 Seasonal Influenza, Quadrivalent, No Preserve, Adjuvanted, 65+ Yrs, IM 08/13/2020 Seasonal Influenza, Quadrivalent, No Preserve, IM 10/12/2016 Seasonal Influenza, Split, IIV3, With Preserve, Inj 08/28/2010, 09/01/2011, 10/06/2012, 11/14/2013, 08/14/2014, 09/12/2015 TDAP (age 10 and older)(Boostrix) 09/19/2017 TDAP (age 11 and older)(Adacel) 07/29/2012 Lab Results Component Value Date/Time HEMOGLOBIN A1C - [facility] 6.3 (H) 04/28/2023 02:28 PM HEMOGLOBIN A1C - [facility] 6.4 (H) 11/17/2022 01:13 PM HEMOGLOBIN A1C - [facility] 6.1 (H) 05/14/2022 02:20 PM HEMOGLOBIN A1C - [facility] 6.3 (H) 06/10/2020 03:05 PM HEMOGLOBIN A1C - [facility] 6.0 (H) 08/29/2019 11:47 AM HEMOGLOBIN A1C - [facility] 7.4 (H) 01/23/2019 02:34 PM Results for orders placed or performed in visit on 11/17/22 LIPID PANEL WITH DIRECT LDL IF TG IS HIGH Result Value Ref Range Triglycerides 145 <=174 mg/dL Cholesterol 142 <200 mg/dL HDL Cholesterol 56 >49 mg/dL Non-HDL Cholesterol 86 <=159 mg/dL LDL Cholesterol 57 <=129 mg/dL Results for orders placed or performed in visit on 04/28/23 COMPREHENSIVE METABOLIC PANEL Result Value Ref Range BUN 15 6 - 20 mg/dL Creatinine 0.9 0.5 - 1.0 mg/dL Estimated Glomerular Filtration Rate 65 >=60 mL/min Sodium 137 135 - 146 mmol/L Potassium 4.5 3.5 - 5.1 mmol/L Chloride 99 98 - 107 mmol/L CO2 25 22 - 32 mmol/L Anion Gap 13 7 - 15 mmol/L Glucose 118 70 - 120 mg/dL Albumin 4.1 3.8 - 5.0 g/dL AST 14 10 - 35 U/L Alkaline Phosphatase 62 35 - 130 U/L Bilirubin, Total 0.2 <=1.2 mg/dL Calcium 9.6 8.4 - 10.2 mg/dL Protein 6.1 6.0 - 8.3 g/dL ALT 17 10 - 35 U/L O: Blood pressure 128/70, pulse 68, temperature 36.2 C (97.2 F), resp. rate 16, height 1.541 m (5' 0.65"), weight 79.4 kg (175 lb), not currently . ;General appearance: well developed, well nourished and in no acute distress. Neck is supple without adenopathy or thyromegaly. Chest is symmetrical and moves normally. The lungs are clear without wheezes, rales, rhonchi or rubs, and the heart is regular without murmurs or gallops, or ectopy. PMI not displaced. She has a decent inbound telemarketer but can't flex biceps. No joint line tenderness A: Contusion of multiple sites of right shoulder and upper arm, subsequent encounter (Primary) - predniSONE 20 MG Oral Tablet (Deltasone); One daily for 10 days Obesity, Class I, BMI 30.0-34.9 (see actual BMI) Keep September appt. documented in this encounter Nursing Notes * Marylin Gruber RN - 05/25/2023 1:41 PM EDT ER Follow up 05/12/23 for right shoulder injury, Pt Still gets pain in front of shoulder, into back of shoulder and her neck * Marylin Gruber RN - 05/25/2023 1:41 PM EDT ER Follow up 05/12/23 for right shoulder injury, Pt Still gets pain in front of shoulder, into back of shoulder and her neck documented in this encounter Plan of Treatment Upcoming Encounters Date Type Specialty Care Team Description 06/30/2023 Office Visit Dermatology Megan Carr PA-C [address] [place] [address] [place] [address] 08/17/2023 Office Visit Cardiology Chace Peacock, DO [address] [place] [address] 10/28/2023 Office Visit Family Medicine Kumar Salinas MD [address] [place] [address] [place] [address] Health Maintenance Due Date Last Done Comments [...] as of this encounter Visit Diagnoses Diagnosis Contusion of multiple sites of right shoulder and upper arm, subsequent encounter- Primary Obesity, Class I, BMI 30.0-34.9 (see actual BMI) Obesity, unspecified documented in this encounter Care Teams Mica Sizer Relationship Specialty Start Date End Date Kumar Salinas MD [address] [place] [address] [place] [address] PCP - General 04/03/09 documented as of this encounter
--- OUTSIDE RECORDS SUMMARY | 2023-10-23 19:22 | External Medical Summary | Summary of Care ---
Author Name Unknown Organization [facility] Address [address] [place] [address] Phone [phone] Care Team Providers Care Digitizer Operator Name Role Phone Kumar Ahn MD Primary Care Provider Reason for Visit * Reason Comments eRx-Medication Refill Encounter Details Date Type Department Care Team Description 06/11/2023 Refill Family Medicine [address] [address] Kumar Ahn MD [address] [place] [address] [place] [address] Paroxysmal atrial fibrillation (HCC); Dyslipidemia, goal LDL below 100; Atherosclerosis of [place] coronary artery of [place] heart without angina pectoris Allergies Active Allergy Reactions Severity Noted Date Comments Crab (Diagnostic) 04/05/2018 Food (See Comments) 07/24/2015 Broccoli, beans, cauliflower - cause gas Grapefruit, oranges - cause bronchitis - positive skin test Paroxetine Hydrochloride 04/03/2009 Penicillins 04/03/2009 Blisters on hands Peanut-Containing Drug Products Abdominal pain Medium 07/24/2015 Gas, bloating documented as of this encounter (statuses as of 06/13/2023) Medications Medication Sig Dispensed Refills Start Date [...] type 2, 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% ([facility]) TEST BLOOD SUGAR ONCE DAILY DIRECTED DX [...] DAY 180 Tablet 3 09/05/2022 Active Nystatin 486238 UNIT/GM External CreamIndications: Brunilda infection Apply to affected area 2-3 times daily for 5 days 45 g 1 09/17/2022 Active Nystatin 567414 UNIT/GM External Powder (Nystop)Indicatio ns:Brunilda infection Apply [...] MG Oral Tablet (Lopressor)Indica tions:Atheroscler osis of [place] coronary artery of [place] heart without angina pectoris,Paroxysm al atrial fibrillation [...] a, goal LDL below 100,Atheroscleros is of [place] coronary artery of [place] heart without angina pectoris TAKE ONE PILL BY MOUTH AT BEDTIME 90 Tablet 1 06/13/2023 Active Atorvastatin Calcium 20 MG Oral Tablet (Lipitor)Indicati ons:Paroxysmal atrial fibrillation (HCC),Dyslipidemi a, goal LDL below 100,Atheroscleros is of [place] coronary artery of [place] heart without angina pectoris take one pill by mouth at bedtime 90 Tablet 1 11/17/2022 06/13/20 23 Discontinued documented as of this encounter (statuses as of 06/13/2023) Active Problems Problem Noted Date Central stenosis [...] 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 Atherosclerosis of [place] co ronary artery of [place] heart without angina pectoris Adjustment disorder with depressed mood documented as of this encounter (statuses as of 06/13/2023) Resolved Problems Problem Noted Date Resolved Date [...] moderate persistent 09/23/201208/30 Genetic Sleep Disorder Research Other*[id number] 09/12/2012 06/25/2016 Obesity, Class II, BMI 35-39.9, [...] as of this encounter (statuses as of 06/13/2023) Immunizations Name Administration Dates Next Due COVID-19 [...] encounter Miscellaneous Notes * Telephone Encounter - [facility] - 06/13/2023 1:01 PM EDT Signed Prescriptions: Disp Refills Atorvastatin Calcium 20 MG Oral Tablet (Li*90 Tab*1 Sig: TAKE ONE PILL BY MOUTH AT BEDTIMEAuthorizing Provider: KUMAR AHN User: RICHMOND ADEN documented in this encounter Plan of Treatment Upcoming Encounters Date Type Specialty Care Team Description 06/30/2023 Office Visit Dermatology Megan Carr PA-C [address] [place] [address] [place] [address] 08/17/2023 Office Visit Cardiology Chace Peacock, DO [address] [place] [address] 10/28/2023 Office Visit Family Medicine Kumar Ahn MD [address] [place] [address] [place] [address] Health Maintenance Due Date Last Done Comments [...] as of this encounter Visit Diagnoses Diagnosis Paroxysmal atrial fibrillation (HCC) Atrial fibrillation Dyslipidemia, goal LDL below 100 Other and unspecified hyperlipidemia Atherosclerosis of [place] coronary artery of [place] heart without angina pectoris documented in this encounter Care Teams Digitizer Operator Relationship Specialty Start Date End Date Kumar Ahn MD [address] [place] [address] [place] [address] PCP - General 04/03/09 documented as of this encounter
--- OUTSIDE RECORDS SUMMARY | 2023-10-23 19:22 | External Medical Summary | Summary of Care ---
Author Name Unknown Organization [facility] Address [address] [place] [address] Phone [phone] Care Team Providers Care Vp Clinical Research Name Role Phone Kumar Salinas MD Primary Care Provider Reason for Visit * Reason Comments Outpatient Testing Encounter Details Date Type Department Care Team Description 04/28/2023 Laboratory Laboratory [address] [place] [address] [facility] [address] [place] [address] Gastroesophageal reflux disease with esophagitis 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; [...] as of this encounter (statuses as of 04/28/2023) Medications Medication Sig Dispensed Refills Start Date [...] 30GIndications:DM type 2, 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% ([facility]) TEST BLOOD SUGAR ONCE DAILY [...] DAY 180 Tablet 3 09/05/2022 Active Nystatin 147767 UNIT/GM External CreamIndications:Ca ndida infection Apply to affected area 2-3 times daily for 5 days 45 g 1 09/17/2022 Active Nystatin 326272 UNIT/GM External Powder (Nystop)Indications :Brunilda infection Apply topically to affected area 2 times a day . 30 g 1 09/17/2022 Active Atorvastatin Calcium 20 MG Oral Tablet (Lipitor)Indication s:Paroxysmal atrial fibrillation (HCC),Dyslipidemia, goal LDL below 100,Atherosclerosis of [place] coronary artery of [place] heart without angina pectoris take one pill [...] 25 MG Oral Tablet (Lopressor)Indicati ons:Atherosclerosis of [place] coronary artery of [place] heart without angina pectoris,Paroxysmal atrial fibrillation (HCC),Essential [...] as of this encounter (statuses as of 04/28/2023) Active Problems Problem Noted Date Central stenosis [...] 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 Atherosclerosis of [place] co ronary artery of [place] heart without angina pectoris Adjustment disorder with depressed mood documented as of this encounter (statuses as of 04/28/2023) Resolved Problems Problem Noted Date Resolved Date [...] moderate persistent 09/23/201208/30 Genetic Sleep Disorder Research Other*[id number] 09/12/2012 06/25/2016 Obesity, Class II, BMI 35-39.9, [...] as of this encounter (statuses as of 04/28/2023) Immunizations Name Administration Dates Next Due COVID-19 [...] 06/30/2023 Office Visit Dermatology Megan Carr PA-C [address] [place] [address] [place] [address] 08/17/2023 Office Visit Cardiology Chace Peacock, [address] [place] [address] 10/28/2023 Office Visit Family Medicine Kumar Salinas MD [address] [place] [address] [place] [address] Pending Results Name Type Priority Associated Diagnoses Date /Time CBC Lab Routine Gastroesophageal reflux disease with esophagitis 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 Encounter for long-term (current) use of other medications 04/28/2023 2:28 PM EDT COMPREHENSIVE METABOLIC PANEL Lab Routine Gastroesophageal reflux disease with esophagitis 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 Encounter for long-term (current) use of other medications 04/28/2023 2:28 PM EDT IRON SCREEN, INCLUDING TIBC Lab Routine Encounter for long-term (current) use of other medications 04/28/2023 2:28 PM EDT FERRITIN Lab Routine Encounter for long-term (current) use of other medications Iron deficiency anemia, unspecified iron deficiency anemia type 04/28/2023 2:28 PM EDT VITAMIN B12 Lab Routine Gastroesophageal reflux disease with esophagitis 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 Encounter for long-term (current) use of other medications 04/28/2023 2:28 PM EDT MAGNESIUM Lab Routine Gastroesophageal reflux disease with esophagitis 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 04/28/2023 2:28 PM EDT TSH WITH FREE T4 IF INDICATED Lab Routine Acquired hypothyroidism 04/28/2023 2:28 PM EDT HEMOGLOBIN A1C Lab Routine 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) 04/28/2023 2:28 PM EDT Health Maintenance Due Date Last Done Comments Zoster Vaccines (1 of 2) 1989 Depression Screening, Annual for Pts 12 and Over 04/29/2021 04/29/2020 COVID-19 Vaccine (4 - Booster for Moderna series) 01/27/2022 12/02/2021, 03/15/2021, 02/16/2021 GFR 05/14/2023 05/14/2022, 06/0 01/2021, 09/16/2020, Additional history exists TSH 05/14/2023 05/14/2022, 10/29, 04/01/2021, Additional history exists HbA1c 05/18/2023 11/17/2022, 04/29, 11/13/2021, Additional history exists DIABETES-EYE EXAM 05/21/2023 05/21/2022, , 10/08/2020, Additional history exists Albumin/Creatinine Ratio 11/17/2023 022, 11/13/2021, 09/16/2020, Additional history exists DIABETES-FOOT EXAM 04/28/2024 04/28/2023, 0 03/12/2022, 04/01/2021, Additional history exists DXA Scan 05/31/2026 05/31/2019, [...] as of this encounter Visit Diagnoses Diagnosis Gastroesophageal reflux disease with esophagitis 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 Encounter for long-term (current) use of other medications Iron deficiency anemia, unspecified iron deficiency anemia type Acquired hypothyroidism Unspecified hypothyroidism 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
--- OUTSIDE RECORDS SUMMARY | 2023-10-23 19:22 | External Medical Summary ---
Author Name Unknown Address Unknown Organization K01:[facility] [place] [address] [facility] [address] Laboratory Report Ordering Provider Test Date Status ANABELLE TONY 04/28/2023 14:28:34 Final Observation Date Value Abnormality Reference (Units ) Status HbA1C 04/28/2023 14:28:34 6.3 Above high normal 4. 0-5.6 (%) Final The use of HbA1c to monitor glycemic status is based on normal hemoglobin and HbA composition. This test should not be used in patients with abnormal hemoglobin that affects the half life of the red blood cell or the in vivo glycation rates. Glucose, estimated average 04/28/2023 14:28:34 134 Above high normal <126 (mg/dL) Victor Hugo taveras Performing [place] [facility] [place] [address] [facility] [address]
--- OUTSIDE RECORDS SUMMARY | 2023-10-23 19:22 | External Medical Summary | Summary of Care ---
Author Name Unknown Organization [facility] Address [address] [place] [address] Phone [phone] Care Team Providers Care Char Conveyor Tender Name Role Phone Kumar Salinas MD Primary Care Provider Encounter Details Date Type Department Care Team Description 04/28/2023 Orders Only Family Medicine [address] [id number] Kumar Salinas MD [address] [place] [address] [place] [address] Allergies Active Allergy Reactions Severity Noted Date [...] type 2, 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% ([facility]) TEST BLOOD SUGAR ONCE DAILY DIRECTED [...] DAY 180 Tablet 3 09/05/2022 Active Nystatin 219947 UNIT/GM External CreamIndications:Ca ndida infection Apply to affected area 2-3 times daily for 5 days 45 g 1 09/17/2022 Active Nystatin 419972 UNIT/GM External Powder (Nystop)Indications :Brunilda infection Apply topically to affected area 2 times a day . 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 without angina pectoris take one pill [...] hemoglobin A1c goal of less than 7.0% ([facility]) TAKE 1 TABLET BY MOUTH TWICE A DAY WITH BREAKFAST AND DINNER 180 Tablet 1 01/30/2023 Active Levothyroxine Sodium 100 MCG Oral Tablet (Levoxyl) TAKE 1 TABLET BY MOUTH DAILY AT LEAST 30 MINUTES PRIOR TO BREAKFAST OR OTHER MEDICATION 90 Tablet 1 01/30/2023 Active Metoprolol Tartrate 25 MG Oral Tablet (Lopressor)Indicati ons:Atherosclerosis of [place] coronary artery of [place] heart without angina pectoris,Paroxysmal atrial fibrillation (HCC),Essential [...] 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 Atherosclerosis of [place] co ronary artery of [place] heart without angina pectoris Adjustment disorder with [...] moderate persistent 09/23/201208/30 Genetic Sleep Disorder Research Other*[id number] 09/12/2012 06/25/2016 Obesity, Class II, BMI 35-39.9, [...] 06/30/2023 Office Visit Dermatology Megan Carr PA-C [address] [place] [address] [place] [address] 08/17/2023 Office Visit Cardiology Chace Peacock, DO [address] [place] [address] 10/28/2023 Office Visit Family Medicine Kumar Salinas MD [address] [place] [address] [place] [address] Health Maintenance Due Date Last Done Comments Zoster Vaccines (1 of 2) 1989 Depression Screening, Annual for Pts 12 and Over 04/29/2021 04/29/2020 COVID-19 Vaccine (4 - Booster for Moderna series) 01/27/2022 12/02/2021, 03/15/2021, 02/16/2021 GFR 05/14/2023 05/14/2022, 06/0 01/2021, 09/16/2020, Additional history exists TSH 05/14/2023 05/14/2022, 10/29, 04/01/2021, Additional history exists HbA1c 05/18/2023 11/17/2022, 04/29, 11/13/2021, Additional history exists DIABETES-EYE EXAM 05/21/2023 04/06/2023, , 01/28/2021, Additional history exists Albumin/Creatinine Ratio 11/17/202311/17/2 022, 11/13/2021, 09/16/2020, Additional history exists DIABETES-FOOT [...] Procedure Name Priority Date/Time Associated Diagnosis Comments DIABETIC EYE EXAM Routine 04/06/2023 documented in this encounter Results * DIABETIC EYE EXAM (04/06/2023) 04/06/2023 Kumar Salinas MD OTHER OUTSIDE LAB (SEE SCANNED REPORT) documented in this encounter Care Teams Char Conveyor Tender Relationship Specialty Start Date End Date Kumar Salinas MD [address] [place] [address] [place] [id number] PCP - General 04/03/09 documented as of this encounter
--- OUTSIDE RECORDS SUMMARY | 2023-10-23 19:22 | External Medical Summary | Summary of Care ---
Author Name Unknown Organization [facility] Address [address] [place] [address] Phone [phone] Care Team Providers Care Hollock Maker Name Role Phone Kumar Ahn MD Primary Care Provider Reason for Visit * Reason Comments eRx-Medication Refill Encounter Details Date Type Department Care Team Description 05/10/2023 Refill Family Medicine [address] [phone] Kumar Ahn MD [address] [place] [address] [place] [id number] Allergies Active Allergy Reactions Severity Noted Date Comments Crab (Diagnostic) 04/05/2018 Food (See Comments) 07/24/2015 Broccoli, beans, cauliflower - cause gas Grapefruit, oranges - cause bronchitis - positive skin test Paroxetine Hydrochloride 04/03/2009 Penicillins 04/03/2009 Blisters on hands Peanut-Containing Drug Products Abdominal pain Medium 07/24/2015 Gas, bloating documented as of this encounter (statuses as of 05/12/2023) Medications Medication Sig Dispensed Refills Start Date [...] 50 mg by mouth daily. 0 Active [employer] Delica Lancets 30GIndications:DM type 2, 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% ([facility]) TEST BLOOD SUGAR ONCE DAILY DIRECTED [...] DAY 180 Tablet 3 09/05/2022 Active Nystatin 714730 UNIT/GM External CreamIndications: Brunilda infection Apply to affected area 2-3 times daily for 5 days 45 g 1 09/17/2022 Active Nystatin 892107 UNIT/GM External Powder (Nystop)Indicatio ns:Brunilda infection Apply topically to affected area 2 times a day . 30 g 1 09/17/2022 Active Atorvastatin Calcium 20 MG Oral Tablet (Lipitor)Indicati ons:Paroxysmal atrial fibrillation (HCC),Dyslipidemi a, goal LDL below 100,Atheroscleros is of [place] coronary artery of [place] heart without angina pectoris take one pill by mouth at bedtime 90 Tablet 1 11/17/2022 Active Fluticasone-Salme terol 250-50 MCG/ACT Inhalation Aerosol [...] MG Oral Tablet (Lopressor)Indica tions:Atheroscler osis of [place] coronary artery of [place] heart without angina pectoris,Paroxysm al atrial fibrillation [...] OTHER MEDICATION 90 Tablet 1 05/12/2023 Active Levothyroxine Sodium 100 MCG Oral Tablet (Levoxyl) TAKE 1 TABLET BY MOUTH DAILY AT LEAST 30 MINUTES PRIOR TO BREAKFAST OR OTHER MEDICATION 90 Tablet 1 01/30/2023 05/12/20 23 Discontinued documented as of this encounter (statuses as of 05/12/2023) Active Problems Problem Noted Date Central stenosis [...] 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 Atherosclerosis of [place] co ronary artery of [place] heart without angina pectoris Adjustment disorder with depressed mood documented as of this encounter (statuses as of 05/12/2023) Resolved Problems Problem Noted Date Resolved Date [...] moderate persistent 09/23/201208/30 Genetic Sleep Disorder Research Other*[id number] 09/12/2012 06/25/2016 Obesity, Class II, BMI 35-39.9, [...] as of this encounter (statuses as of 05/12/2023) Immunizations Name Administration Dates Next Due COVID-19 [...] encounter Miscellaneous Notes * Telephone Encounter - Genevieve Guerrero [facility] - 05/12/2023 8:34 AM EDTSigned Prescriptions: Disp Refills Levothyroxine Sodium 100 MCG Oral Tablet (*90 Tab*1 Sig: TAKE 1TABLET BY MOUTH DAILY AT LEAST 30 MINUTES PRIOR TO BREAKFAST OR OTHER MEDICATIONAuthorizing Provider: KUMAR AHN AOryadiel User: GENEVIEVE GUERRERO documented in this encounter Plan of Treatment Upcoming Encounters Date Type Specialty Care Team Description 06/30/2023 Office Visit Dermatology Megan Carr PA-C [address] [place] [address] [place] [address] 08/17/2023 Office Visit Cardiology Chace Peacock, [address] [place] [address] 10/28/2023 Office Visit Family Medicine Kumar Ahn MD [address] [place] [address] [place] [address] Health Maintenance Due Date Last Done Comments Zoster Vaccines (1 of 2) 1989 Depression Screening, Annual for Pts 12 and Over 04/29/2021 04/29/2020 COVID-19 Vaccine (4 - Moderna series) 01/27/2022 12/02/2021, 03/15/2021, 02/16/2021 HbA1c 10/28/2023 04/28/2023, 12/, 05/14/2022, Additional history exists Albumin/Creatinine Ratio 11/17/2023 12/20/2 022, 11/13/2021, 09/16/2020, Additional history exists DIABETES-EYE [...] filedocumented as of this encounter Care Teams Hollock Maker Relationship Specialty Start Date End Date Kumar Ahn MD [address] [place] [address] [place] [address] PCP - General 04/03/09 documented as of this encounter
--- OUTSIDE RECORDS SUMMARY | 2023-10-23 19:22 | External Medical Summary | Summary of Care ---
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)*; DM type 2 nursing care encounter (HCC); Paroxysmal atrial fibrillation (HCC); DM type 2, 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% (HCC); Benign hypertension with CKD (chronic kidney disease), stage II; Acquired hypothyroidism; Primary hypertension; Dyslipidemia, goal LDL below 100 Allergies Active Allergy Reactions Severity Noted Date [...] DAY 180 Tablet 3 09/05/2022 Active Nystatin 839976 UNIT/GM External CreamIndications:Ca ndida infection Apply to affected area 2-3 times daily for 5 days 45 g 1 09/17/2022 Active Nystatin 786048 UNIT/GM External Powder (Nystop)Indications :Brunilda infection Apply topically to affected area 2 times a day . 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 angina pectoris take one pill [...] 25 MG Oral Tablet (Lopressor)Indicati ons:Atherosclerosis of [place] coronary artery of [place] heart without angina pectoris,Paroxysmal atrial fibrillation (HCC),Essential [...] 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 Atherosclerosis of [place] co ronary artery of [place] heart without angina pectoris Adjustment disorder with [...] moderate persistent 09/23/201208/30 Genetic Sleep Disorder Research Other*[id number] 09/12/2012 06/25/2016 Obesity, Class II, BMI 35-39.9, [...] Date Smoking Tobacco: Never Smokeless Tobacco: Never Tobacco Cessation:Counseling Given: Not [...] Sign Reading Time Taken Comments Blood Pressure 118/76 04/28/2023 1:59 PM EDT Pulse 77 04/28/2023 1:59 PM EDT Temperature 36.2 C (97.2 F) 04/28/2023 1:59 PM ED T Respiratory Rate 16 04/28/2023 1:59 PM EDT Oxygen Saturation - - Inhaled Oxygen Concentration - - Weight 81.2 kg (179 lb) 04/28/2023 1:59 PM EDT Height - - Body Mass Index 34.24 06/03/2022 1:29 PM EDT documented in this encounter Patient Instructions * Patient Instructions* Lilibeth Zurita LPN - 04/28/2023 2:04 PM EDT Diabetes: Keeping Feet Healthy Inspect your feet every day for signs of a problem. Diabetes can damage nerves in your feet and cause neuropathy. This condition makes it hard for you to feel injuries or sore spots. Diabetes can also change blood flow, making it harder for small problems, like a blister, to heal properly. In fact, minor injuries can quickly become serious infections that send you to the hospital. Practice self-care to protect your feet and keep them healthy. Take Special Care Inspect your feet daily for problems such as redness, blisters, cracks, dry skin, or numbness. Use a mirror to see the bottoms of your feet. Or, ask for help. Manage your diabetes. Monitor and control your blood sugar. Take all your medications as prescribed. Avoid walking barefoot, even indoors. Wash your feet with warm water and mild soap. Dry well, especially between toes. Dont treat corns or calluses yourself. Talk to your doctor or portable sawyer (a doctor who specializes in foot care) if you need assistance trimming your toenails. Use moisturizing cream or lotion if you have dry skin, but dont use it between toes. Dont use heating pads on your feet. If you have neuropathy, you could get a burn and not feel it. Stop smoking. Smoking restricts blood flow and can make it harder for wounds to heal. Have Regular Checkups Foot problems can develop quickly. So be sure to follow your healthcare teams schedule for regular checkups. During office visits, take off your shoes and socks as soon as you get in the exam room. Ask your healthcare provider to examine your feet for problems. This will make it easier to find and treat small skin irritations before they get worse. Regular checkups can also help keep track of the blood flow and feeling in your feet. If you have neuropathy, you may need to have checkups more often. Wear Proper Footwear Wearing proper footwear is very important. If areas of your feet have been damaged by too much pressure, your healthcare provider may recommend changing your footwear. In some cases, avoiding high heels or tight work boots may be all thats needed. Or, your healthcare provider may recommend special shoes or custom inserts. These help protect your feet and keep existing irritations from getting worse. If you need special footwear, ask your healthcare provider if you qualify for [employer] diabetic shoe program. Make Sure Shoes and Socks Fit Any pair of shoes--new or old--should feel comfortable as soon as you put them on. There shouldnt be any rubbing when you walk. Wear the right shoe for any activity. For instance, a running shoe is designed to keep your feet injury-free while jogging. Buy shoes at the end of the day, when your feet are larger. Make sure they provide support without feeling too loose. Make sure your socks fit, t oo. Wear soft, seamless, well-padded socks for activity. Cotton or microfiber socks are best to help to absorb sweat. To protect your feet, avoid shoes that are open-toed or open-heeled. If you have questions about what kinds of shoes and socks are best, talk to your healthcare team. Get Regular Exercise Regular exercise improves blood flow in your feet. It also increases foot strength and flexibility.Gentle exercises, like walking or riding a stationary bicycle, are best. You can also do special foot exercises. Just be sure to talk with your healthcare provider before starting any exercise program. Also mention if any exercise causes pain, redness, or other signs of foot problems. Note: If you have any kind of break in the skin of your foot or ankle, keep the area clean. Then call your doctor--especially if the area doesnt appear to be healing. [id number] [employer], [address] [place] [address], [place] [address]. All rights reserved. This information is not intended as a substitute for professional medical care. Always follow your healthcare professional's instructions. documented in this encounter Progress Notes * Kumar Salinas MD - 04/28/2023 2:[address] Mendez for her right knee and she has been injected twice, replacement contemplated. She saw Dr Pickens for eyes. She is sneezing a lot this week. She uses a cane to walk. The right knee is the one that had the bursa removed. No complaints of headache, trouble with vision or hearing. [place], with no bowel or bladder complaints. Denies chest pain or palpitations. Denies shortness of breath, PND, or orthopnea. No skin rashes or breakdown. No changes in mentation. No syncope or falls.All others negative other than those noted in HPI. 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 Coronary atherosclerosis of [place] coronary artery DM type 2, goal HbA1c < 7% ([facility]) 05/07/2018 hgba1c 7.3 Dyslipidemia, goal LDL below [...] internal hemorrhoids CORONARY ARTERY DILATION, BALLOON 01/30/[address] [place] [address] ABDOMEN/PELVIS 04/04/2013 acute distal sigmoid colon [...] RIGHT AND LEFT KNEE ARTHROSCOPY/MENISCECTOMY 09/2013 left, [facility] LAPAROSCOPY;APPENDECTOMY 2006 MAMMOGRAM SCREENING BILATERAL Bilateral 07/31/2020 [...] REMOVE CATARACT, INSERT LENS PROSTH Left 05/02/2013 [facility] REMOVE CATARACT, INSERT LENS PROSTH Right 05/25/2013 [facility] REPAIR RUPTURED ROTATOR CUFF, CHRON Left 09/12/2015 Dr De Leon [facility], rotator cuff and biceps REVISE UPPER EYELID [...] History Narrative 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 Glucose Blood (ONETOUCH VERIO) STRP Test blood [...] TWICE A DAY 180 Tablet 3 Nystatin 763119 UNIT/GM External Cream Apply to affected area 2-3 times daily for 5 days 45 g 1 Nystatin 852864 UNIT/GM External Powder (Nystop) Apply topically to [...] DAY WITH BREAKFASTAND DINNER 180 Tablet 1 Levothyroxine Sodium 100 MCG Oral Tablet (Levoxyl) TAKE 1 TABLET BY MOUTH DAILY AT LEAST 30 MINUTES PRIOR TO BREAKFAST OR OTHER MEDICATION 90 Tablet 1 Metoprolol Tartrate 25 MG Oral [...] DAY IN THE MORNING 90 Tablet 1 No current facility-administered medications for this visit. [...] older)(Adacel) 07/29/2012 Lab Results Component Value Date/Time TSH - [facility] 0.40 05/14/2022 02:20 PM TSH - [facility] 0.77 11/13/2021 09:12 AM TSH - [facility] 0.15 (L) 04/01/2021 03:48 PM TSH - [facility] 0.51 04/29/2020 10:16 AM TSH - [facility] 0.14 (L) 01/23/2019 02:34 PM TSH - [facility] 0.35 05/07/2017 03:43 PM TSH - [facility] 0.237 (A) 05/07/2018 12:00 AM Lab Results Component Value Date/Time HEMOGLOBIN A1C - [facility] 6.4 (H) 11/17/2022 01:13 PM HEMOGLOBIN A1C - [facility] 6.1 (H) 05/14/2022 02:20 PM HEMOGLOBIN A1C - [facility] 6.5 (H) 11/13/2021 09:12 AM HEMOGLOBIN A1C - [facility] 6.3 (H) 06/10/2020 [...] orders placed or performed in visit on 04/27/19 COMPR METAB PANEL Result Value Ref Range BUN 46 (H) 6 - 20 mg/dL Creatinine 1.4 (H) 0.5 - 1.0 mg/dL Estimated Glomerular Filtration Rate 34.8 (L) >60 Sodium 139 135 - 146 mmol/L Potassium 4.2 3.5 - 5.1 mmol/L Chloride 99 98 - 107 mmol/L CO2 22 22 - 32 mmol/L Anion Gap 18 (H) 7 - 15 mmol/L Glucose 140 (H) 70 - 120 mg/dL Albumin 3.9 3.8 - 5.0 g/dL AST 16 10 - 35 U/L Alkaline Phosphatase 75 0 - 153 U/L Bilirubin, Total 0.4 0 - 1.2 mg/dL Calcium 9.0 8.4 - 10.2 mg/dL Protein 6.2 6.0 - 8.3 g/dL ALT 20 10 - 35 U/L O: Blood pressure 118/76, pulse 77, temperature 36.2 C (97.2 F), temperature source Tympanic, resp. rate 16, weight 81.2 kg (179 lb), not currently . General appearance: well developed, well nourished and in no acute distress. Head normocephalic andatraumatic. No facial asymmetry. Eye exam; PEERLA, EOMI. No scleral icterus or nystagmus. Conjunctiva are pink and not injected. Oropharynx: no exudate, no pharyngeal inflammation or post nasal drip.The palate is free of lesions and the uvula is normal. Trachea is in the midline. Neck supple with no adenopathy or thyromegaly. No carotid bruits. Chest expands equally and is symmetrical with normal AP diameter. Lungs clear, with no wheezes, rales, or rhonchi. Heart: S1 and S2 normal. PMI not obviously displaced. Heart regular, no murmurs, gallops, clicks or rubs. No CVA tenderness. No calf swelling or tenderness. No pedal edema. No skin rashes. Right knee has a surgical scar. 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 Follow Up: Return in about 6 months (around 10/28/2023) for Clinic Visit. | For: Clinic Visit * Lilibeth Zurita LPN - 04/28/2023 2:04 PM EDT Socks and Shoes Removed for Annual Diabetic Foot Screening RIGHT FOOT: No Reddened, Cracking, Or Open Areas Noted. RIGHT Dorsalis Pedis Pulse: Palpable RIGHT Posterior Tibial Pulse: Palpable RIGHT Monofilament:Patient reports feeling monofilament pressure on plantar surface of foot LEFT FOOT: No Reddened, Cracking or Open Areas Noted. LEFT Dorsalis Pedis Pulse: Palpable LEFT Posterior Tibial Pulse: Palpable LEFT Monofilament:Patient reports feeling monofilament pressure on plantar surface of foot Do you need diabetic shoes: No DM Foot Exam completed today. Provider aware. Lilibeth Zurita LPN documented in this encounter Nursing Notes * Lilibeth Zurita LPN - 04/28/2023 1:54 PM EDT 6 month recheck documented in this encounter Plan of Treatment Upcoming Encounters Date Type Specialty Care Team Description 06/30/2023 Office Visit Dermatology Megan Carr PA-C [address] [place] [address] [place] [address] 08/17/2023 Office Visit Cardiology Chace Peacock, DO [address] [place] [address] 10/28/2023 Office Visit Family Medicine Kumar Salinas MD [address] [place] [address] [place] [address] Pending Results Name Type Priority Associated Diagnoses Date /Time TSH WITH FREE T4 IF INDICATED Lab Routine Acquired hypothyroidism 04/28/2023 2:28 PM EDT HEMOGLOBIN A1C Lab Routine 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) 04/28/2023 2:28 PM EDT Scheduled Orders Name Type Priority Associated Diagnoses Orde r Schedule TSH WITH FREE T4 IF INDICATED Lab Routine Acquired hypothyroidism Expected: 04/28/2023 (Approximate), Expires: 04/27/2024 HEMOGLOBIN A1C Lab Routine 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) Expected: 04/28/2023 (Approximate), Expires: 04/27/2024 Health Maintenance Due Date Last Done Comments [...] , 10/08/2020, Additional history exists Albumin/Creatinine Ratio 11/17/202311/17/2 022, [...] Diagnoses Diagnosis 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)- Primary DM type 2 nursing care encounter (HCC) Type II or unspecified type diabetes mellitus without mention of complication, not stated as uncontrolled Paroxysmal atrial fibrillation (HCC) Atrial fibrillation DM type 2, 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% (HCC) Benign hypertension with CKD (chronic kidney disease), stage II Benign hypertensive kidney disease with chronic kidney disease stage I through stage IV, or unspecified Acquired hypothyroidism Unspecified hypothyroidism Primary hypertension Unspecified essential hypertension Dyslipidemia, goal LDL below 100 Other and unspecified hyperlipidemia documented in this encounter Care Teams Delinquency Prevention Officer Relationship Specialty Start Date End Date Kumar Salinas MD [address] [place] [address] [place] [phone] PCP - General 04/03/09 documented as of this encounter"
--- OUTSIDE RECORDS SUMMARY | 2023-10-23 19:22 | External Medical Summary | Summary of Care ---
Author Name Unknown Organization [facility] Address [address] [place] [address] Phone [phone] Care Team Providers Care Paper Ruler Name Role Phone Kumar Salinas MD Primary Care Provider + [phone] Reason for Referral * Medication Prior Authorization - Closed Specialty Diagnoses / Procedures Referred By Contac t Referred To Contact Diagnoses Arthralgia of shoulder, unspecified laterality Rolanda Villalpando PA-C [address] [place] [address] [place] [address] Referral ID Status Reason Start Date Expiration Date Visits Re quested Visits Authorized [id number] Closed [phone] Reason for Visit * Reason Onset Date Comments Advice 05/20/2023 Encounter Details Date Type Department Care Team Description 05/20/2023 Telephone Family Medicine [address] [place] [phone] Kumar Salinas MD [address] [place] [address] [place] [address] Advice Allergies Active Allergy Reactions Severity Noted [...] 2, 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% ([facility]) TEST BLOOD SUGAR ONCE DAILY [...] DAY 180 Tablet 3 09/05/2022 Active Nystatin 373420 UNIT/GM External CreamIndications:Ca ndida infection Apply to affected area 2-3 times daily for 5 days 45 g 1 09/17/2022 Active Nystatin 115032 UNIT/GM External Powder (Nystop)Indications :Brunilda infection Apply topically to affected area 2 times a day . 30 g 1 09/17/2022 Active Atorvastatin Calcium 20 MG Oral Tablet (Lipitor)Indication s:Paroxysmal atrial fibrillation (HCC),Dyslipidemia, goal LDL below 100,Atherosclerosis of [place] coronary artery of [place] heart without angina pectoris take one pill [...] 25 MG Oral Tablet (Lopressor)Indicati ons:Atherosclerosis of [place] coronary artery of [place] heart without angina pectoris,Paroxysmal atrial fibrillation (HCC),Essential [...] 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 Atherosclerosis of [place] co ronary artery of [place] heart without angina pectoris Adjustment disorder with [...] moderate persistent 09/23/201208/30 Genetic Sleep Disorder Research Other*[id number] 09/12/2012 06/25/2016 Obesity, Class II, BMI 35-39.9, [...] in today and told her pt wasIn [facility] ER 05/12/23. Was given Hydrocodone (norco) 5-325, but [facility] said it is not available. Asking if provider could send a Rx for this to another pharmacy. Wanted it sent to [facility] pharmacy. I told Juliana we will call pt once this is message is addressed. All was asking if this could be sent to [facility]. The script was written as Hydrocodone-Acetaminophen 5-325 mg 1-2 tablets every 6 hours as needed for pain. 10 tablets I called [facility] to verify Hydrocodone is unavailable. The pharmacist said that was correct. I also called [facility] pharmacy to see if Hydrocodone 5-325 is available. Please advise if this can be sent to [facility] pharmacy. Thanks. All is in the waiting area. I told him I would call him/pt when this is addressed. He said he will wait. I did tell him I have no idea when this will be addressed. He voiced understanding. * Telephone Encounter - Juliana García - 05/20/2023 2:55 PM EDT Patient was in ER at [facility] And was prescribed Hydrocodone 5/325 every for hours for pain and also Ibuprofen 600 every six hours. [facility] is not able to get it. Patient want it switched to [facility]. Needs family doctor to call it in if possible. Please advise on what to do about meds. [phone] documented in this encounter Plan of Treatment Upcoming Encounters Date Type Specialty Care Team Description 05/25/2023 Office Visit Family Medicine Kumar Salinas MD [address] [place] [address] [place] [address] 06/30/2023 Office Visit Dermatology Megan Carr PA-C [address] [place] [address] [place] [address] 08/17/2023 Office Visit Cardiology Chace Peacock, DO [address] [place] [address] 10/28/2023 Office Visit Family Medicine Kumar Salinas MD [address] [place] [address] [place] [address] Health Maintenance Due Date Last Done Comments [...] Primary documented in this encounter Care Teams Paper Ruler Relationship Specialty Start Date End Date Kumar Salinas MD [address] [place] [address] [place] [address] PCP - General 04/03/09 documented as of this encounter
--- OUTSIDE RECORDS SUMMARY | 2023-10-23 19:22 | External Medical Summary ---
Author Name Unknown Address Unknown Organization K01:[facility] [address] [place] [address] [place] [address] Laboratory Report Ordering Provider Test Date Status MARKIE BUI 04/28/2023 14:28:34 Final Observation Date Value Abnormality Reference (Units ) Status Magnesium 04/28/2023 14:28:34 1.7 1.5-2.6 (m g/dL) Final Performing Location [facility] [address] [place] [address]
--- OUTSIDE RECORDS SUMMARY | 2023-10-23 19:22 | External Medical Summary | Summary of Care ---
Author Name Unknown Organization [facility] Address [address] [place] [address] Phone [phone] Care Team Providers Care Terrapin Fisher Name Role Phone Kumar Salinas MD Primary Care Provider + [phone] Reason for Referral * Evaluate & Treat - Unlimited Visits (Within 3 days (urgent)) - Authorized Specialty Diagnoses / Procedures Referred By Evangelist osborne Referred To Contact Physical Therapy / Physical Medicine And Rehab Diagnoses Primary osteoarthritis involving multiple joints Kumar Salinas MD [address] [place] [address] [place] [id number] Referral ID Status Reason Start Date Expiration Date Visits Requested Visits Authorized [id number] Authorized Specialty Services Required 06/08/2023 999 999 Question Answer Referral Priority Within 3 days (urgent) Comments Right shoulder and right knee pain Reason for Visit * Reason Onset Date Comments Referral 06/07/2023 Encounter Details Date Type Department Care Team Description 06/07/2023 Telephone Family Medicine [address] [place] [address] Kumar Salinas MD [address] [place] [address] [place] [phone] Referral Allergies Active Allergy Reactions Severity Noted Date Comments Crab (Diagnostic) 04/05/2018 Food (See Comments) 07/24/2015 Broccoli, beans, cauliflower - cause gas Grapefruit, oranges - cause bronchitis - positive skin test Paroxetine Hydrochloride 04/03/2009 Penicillins 04/03/2009 Blisters on hands Peanut-Containing Drug Products Abdominal pain Medium 07/24/2015 Gas, bloating documented as of this encounter (statuses as of 07/14/2023) Medications Medication Sig Dispensed Refills Start Date [...] 30GIndications:DM type 2, 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% ([facility]) TEST BLOOD SUGAR ONCE [...] DAY 180 Tablet 3 09/05/2022 Active Nystatin 746800 UNIT/GM External CreamIndications: Brunilda infection Apply to affected area 2-3 times daily for 5 days 45 g 1 09/17/2022 Active Nystatin 181472 UNIT/GM External Powder (Nystop)Indicatio ns:Brunilda infection Apply [...] MG Oral Tablet (Lopressor)Indica tions:Atheroscler osis of [place] coronary artery of [place] heart without angina pectoris,Paroxysm al atrial fibrillation [...] a, goal LDL below 100,Atheroscleros is of [place] coronary artery of [place] heart without angina pectoris take one pill by mouth at bedtime 90 Tablet 1 11/17/2022 06/13/20 23 Discontinued documented as of this encounter (statuses as of 07/14/2023) Active Problems Problem Noted Date Central stenosis [...] 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 Thanks. * Telephone Encounter - DEMARIO Duque - 06/07/2023 3:29 PM EDT Has the patient been seen for this problem? (Y/N)?: If No, an appt needs to be scheduled before a referral will be placed (exception: proceed with referral request if referral request is for a yearly routine appointment with speciality) Patient Name: Yudelka Palacios Patient Primary care provider: Kumar Salinas MD Does this need to be an insurance referral (Y/N)?: If Yes, does the insurance referral need to be placed into the [employer] system? Name of preferred specialist: April Type of specialist: Physical Therapist Location of specialist: [facility] Phone #: [phone] Specialist's Fax #: Reason for visit: right knee and right shoulder Date of visit: Please advise patient when referral is sent [phone]. documented in this encounter Plan of Treatment Upcoming Encounters Date Type Specialty Care Team Description 08/17/2023 Office Visit Cardiology Chace Peacock, [address] [place] [address] 09/27/2023 Office Visit Dermatology Keegan Godwin MD [address] [facility] [place] [address] 10/28/2023 Office Visit Family Medicine Kumar Salinas MD [address] [place] [address] [place] [phone] Scheduled Referrals Name Type Priority Associated Diagnoses Orde r Schedule PHYSICAL THERAPY REFERRAL OP Referral Within 3 days (urgent) Primary osteoarthritis involving multiple joints Ordered: 06/08/2023 Health Maintenance Due Date Last Done Comments Zoster Vaccines (1 of 2) 1989 Depression Screening, Annual for Pts 12 and Over 04/29/2021 04/29/2020 COVID-19 Vaccine (4 - Moderna series) 01/27/2022 12/02/2021, 03/15/2021, 02/16/2021 Influenza Vaccine (FLU shot) (#1) 2023 09/17/2022, 10/17/2021, 08/13/2020, Additional history exists HbA1c 10/28/2023 04/28/2023, 12, 05/14/2022, Additional history exists Albumin/Creatinine Ratio 11/17/2023 [...] as of this encounter Visit Diagnoses Diagnosis Primary osteoarthritis involving multiple joints- Primary documented in this encounter Care Teams Terrapin Fisher Relationship Specialty Start Date End Date Kumar Salinas MD [address] [place] [address] [place] [id number] PCP - General 04/03/09 documented as of this encounter
[2023-10-23 19:47] LABS: Basophils # (auto) 0.04 K/uL (0.00-0.20); Basophils % (auto) 0.3 %; Eosinophils # (auto) 0.09 K/uL (0.00-0.50); Eosinophils % (auto) 0.7 %; Hematocrit (blood only) 38.2 % (37.0-47.0); Hemoglobin 12.8 g/dl (12.0-16.0); Immature Granulocytes # (auto) 0.05 K/uL (0.01-0.20); Immature Granulocytes % (auto) 0.4 %; Lymphocytes # (auto) 1.21 K/uL (1.20-3.40); Lymphocytes % (auto) 9.5 %; Mean Corpuscular Hemoglobin 29.4 pg (25.0-34.0); Mean Corpuscular Hgb Conc 33.5 g/dL (32.0-36.0); Mean Corpuscular Volume 87.6 fL (80.0-100.0); Mean Platelet Volume 11.2 fL (9.4-12.4); Monocytes # (auto) 1.45 K/uL (0.11-0.59); Monocytes % (auto) 11.4 %; Neutrophils # (auto) 9.93 K/uL (1.40-6.50); Neutrophils % (auto) 77.7 %; Platelet Count 324 K/uL (130-400); RDW Coefficient of Variation 14.3 % (11.5-14.5); RDW Standard Deviation 45.7 fL (36.4-46.3); Red Blood Count 4.36 M/uL (4.20-5.40); White Blood Count 12.77 K/ul (4.8-10.8)
[2023-10-23 20:00] LABS: Albumin Globulin Ratio 1.4 (0.9-2); Albumin Level 3.7 gm/dl (3.4-5.0); BUN Creatinine Ratio 20.9 (10-20); Bilirubin,Total 0.4 mg/dl (0.2-1.0); Calcium 9.7 mg/dl (8.6-10.3); Creatinine Clr Calc Pharmacy 61.7 ml/min; Est GFR (African American) 93.6 ml/min; Est GFR (Non-African American) 80.7 ml/min; Globulin 2.7 gm/dl (2.5-4.0); Magnesium 1.3 mg/dl (1.7-2.4); Potassium 3.5 mmol/L (3.5-5.1); Total Protein 6.4 gm/dl (6.0-8.3)
--- NOTE | 2023-10-23 20:00 | XRay Report ---
LEFT ANKLE 3 VIEWS HISTORY: Left ankle swelling COMPARISON: Left ankle 06/29/2017. FINDINGS: There is diffuse soft tissue swelling within the left ankle. No acute fracture or dislocati on. Plate and screw fixation again noted at the first MTP joint. The hardware appears intact. Moderat e degenerative changes at the tibiotalar joint. There is a plantar heel spur noted. Well-corticated o ssific density at the medial malleolus is consistent with an old avulsion fracture. No radiopaque for eign bodies. IMPRESSION: Soft tissue swelling within the left ankle. No acute fracture or dislocation. ACT 112: Negative or not required by law. Electronically signed by: Charlie Atkinson M.D. 10/23/2023 7:59 PM
--- NOTE | 2023-10-23 20:04 | XRay Report ---
XR chest 1V portable HISTORY: Syncope. COMPARISON: Chest 08/22/2019. FINDINGS: No pneumothorax. No pleural effusions. No focal lung consolidations to suggest a pneumonia. No evidence for pulmonary edema. The cardiac silhouette remains top normal in size. There are mitral and is calcifications noted. No acute fractures identified. Degenerative changes within the shoulder s. There is mild elevation of the right hemidiaphragm. IMPRESSION: No significant change compared to the prior study. No acute process. ACT 112: Negative or not required by law. Electronically signed by: Charlie Atkinson M.D. 10/23/2023 8:02 PM
[2023-10-23 20:06] LABS: Troponin I High Sensitivity 14.2 pg/ml (0-14)
--- NOTE | 2023-10-23 20:08 | Emergency Department Note ---
Impression & Plan Syncope and collapse, Hypomagnesemia, Left ankle swelling ED Provider Note Provider: Cb Fernandez MD DATE OF SERVICE: 10/23/2023 CHIEF COMPLAINT: Syncope, left ankle pain HISTORY OF PRESENT ILLNESS: Patient is a 83-year-old female past medical history of CAD, paroxysmal atrial fibrillation in the distant past not on anticoagulation currently, hypertension, type 2 diabetes, and CKD presenting here today after syncopal event. Patient states that she woke up and had some pain and swelling of the left ankle. Denies any trauma. States this made walking bit harder. Last couple days has been a little more tremulous. Using her walker some at home. With assistance of significant other with her walker was going to the bathroom to use the facilities when all of a sudden she blacked out and fell to the ground. Does not believe she struck her head. Denies head neck or new back pain. Reports continued pain to left ankle but this is unchanged after the fall. Loss of consciousness for under a minute by her report without reported seizure activity. Patient denies palpitations, shortness of breath, or chest pain earlier or now. Patient denies history of significant syncopes in the past. Denies a history of gout. Denies a history of leg trauma. PAST MEDICAL HISTORY: As noted above MEDICATIONS: Reviewed home medications not on anticoagulation SOCIAL HISTORY: Lives in apartment with significant other, non-smoker PHYSICAL EXAM: GENERAL: alert and oriented in no acute distress on stretcher Head: normocephalic and atraumatic EYES: No injection, discharge or icterus. PERRL, EOMI. NECK: Trachea midline. Supple. ENT: Mucous membranes pink and moist. LUNGS: Airway patent. No retractions. Breath sounds clear HEART: Regular rate and rhythm. No chest wall tenderness ABDOMEN: Soft and non-tender, without guarding or rebound. SKIN: Acyanotic, warm, dry, without rashes EXTREMITIES: Any severe deformity with some tenderness and mild swelling of the left ankle without significant erythema. Fairly localized around this joint. No other swelling and soft compartments of the lower legs. Some slight swelling of the right ankle but nontender in nature. Intact capillary refill to distal left foot and intact distal sensation. NEUROLOGICAL: No focal deficits. No aphasia. No facial droop or slurred speech. Normal strength and tone in the extremities. Sensation to gross touch normal. EK bpm normal sinus rhythm. No PVC or PAC. Left axis. No acute ST segment elevation or depression. CONTINUOUS CARDIAC MONITORING: was ordered and showed a heart rate of 80s bpm in normal sinus rhythm PDMP was checked without noted issue. GCS 15. Patient's laboratory studies and imaging reviewed. Differential includes Vasovagal event, dehydration, infection, hypoglycemia, electrolyte abnormalities, cardiac sources, intracerebral event, pulmonary embolism, seizure, toxicologic, neurologic,, right ankle fracture, dislocation, infection, crystalline disease such as gout, as well as other pathologies. IMPRESSION/MEDICAL DECISION MAKING: Patient with unexplained syncopal event with brief loss of conscious. No seizure activity reported. No recent trauma. Has been a bit tremulous and with unexplained swelling just to the left ankle. Doubt DVT given the very focal around the ankle. Questions could represent a little bit of gout but has no history. X-rays obtained per radiology without evidence of any fractures. No significant trauma. Does not appear significantly red and lower suspicion for cellulitis or septic joint. No history of surgeries here. Collapse does not seem to provoke any significant trauma but will obtain a head CT given the LOC and her age. Chest x-ray obtained without significant findings given the syncope. Blood work here without anemia slight leukocytosis is nonspecific. No significant electrolyte abnormality beyond some hypomagnesemia. This will be supplemented. Renal function is stable. High since her troponin 14 and not severely elevated. No significant transaminitis. BNP minimally elevated lower suspicion the swelling of the left ankle is some asymmetric heart failure. Will obtain an ultrasound of the leg to exclude DVT. CT of the head per radiology reassuring. Venous ultrasound of the left lower extremity without evidence of DVT. I doubt this is a septic joint. Question of this more of a crystalline disease issue or gouty issue. Reassessment with maybe little bit erythema. Pains improving after some Toradol given. Will give a dose of Ancef given her age with a little bit of redness in the white blood cell count but again appearance is not of neck fascia or deeper joint infection. Some IV magnesium supplementation again was ordered and will give a very small dose of Toradol to see if this helps with her swelling if it may be gout or pseudogout. Urinalysis not impressive for infection. Discussed with patient the findings recommend given her syncope episode and her complaints we observe her further. Patient was in agreement. DIAGNOSIS: Syncope and collapse, left ankle swelling, hypomagnesemia, hypertension DISPOSITION: Hospitalist will evaluate Patient was agreeable with this plan. Past Med/Surg History Medical History Asthma CAD (coronary artery disease) CKD (chronic kidney disease) stage 3, GFR 30-59 ml/min GERD (gastroesophageal reflux disease) History of placement of stent in LAD coronary artery HLD (hyperlipidemia) HTN (hypertension) Hypothyroidism DEMARIO (obstructive sleep apnea) PAF (paroxysmal atrial fibrillation) Primary open angle glaucoma Right knee DJD Right rotator cuff tear Sleep apnea T2DM (type 2 diabetes mellitus) Surgical History History of appendectomy History of arthroscopic knee surgery History of cataract extraction History of rotator cuff surgery History of tonsillectomy Stented coronary artery Family History Father CHF (congestive heart failure) Mother Cancer Social History Smoking Status: Never smoker Hx Alcohol Use: No Hx Substance Use: No Preferred Language: Iraqi Communication Ability: Effective Beliefs That Will Affect Care: None marital status: Life Partner Current Living Situation: Significant Other Current Living Situation Comment: s/o Feels Safe at Home: Yes Assistive Devices: Glasses Allergies Allergies Allergy/AdvReac Type Severity Reaction Status Date / Time Penicillins Allergy Mild . Verified 10/23/23 23:17 broccoli Allergy Unknown GAS Unverified 10/23/23 23:17 grapefruit Allergy Unknown BRONCHITIS Unverified 10/23/23 23:17 mold Allergy Unknown asthma Verified 10/23/23 23:17 symptoms orange Allergy Unknown BRONCHITIS Unverified 10/23/23 23:17 paroxetine Allergy Unknown ANAPHYLAXIS Unverified 10/23/23 23:17 pollen extracts Allergy Unknown asthma Verified 10/23/23 23:17 symptoms crab AdvReac Unknown diarrhea Verified 10/23/23 23:17 peanut AdvReac Unknown gas/bloatin Unverified 10/23/23 23:17 g Dust Allergy Unknown asthma Uncoded 10/23/23 23:17 symptoms BEANS AdvReac Unknown gas and Uncoded 10/23/23 23:17 bloating with consuption of green or kidneys beans PEANUTS AdvReac Unknown gas/bloatin Uncoded 10/23/23 23:17 g Home Meds Home Medications Medication Instructions Recorded Confirmed aspirin 81 mg tablet,delayed 81 mg PO QAM 08/22/19 05/08/22 release atorvastatin 20 mg tablet 20 mg PO QAM 08/22/19 05/08/22 clindamycin HCl 300 mg capsule 300 mg PO TID 08/22/19 05/08/22 coenzyme Q10 100 mg capsule 100 mg PO QAM 08/22/19 05/08/22 (CoQ-10) cyanocobalamin (vitamin B-12) 1,000 mcg PO QAM 08/22/19 05/08/22 1,000 mcg capsule dexlansoprazole 60 mg 60 mg PO QAM 08/22/19 05/08/22 capsule,biphase delayed release (Dexilant) fluticasone 250 mcg-salmeterol 50 1 inh inhalation BID 08/22/19 05/08/22 mcg/dose blistr powdr for inhalation (Wixela Inhub) fluticasone propionate 50 2 spray intranasal QA 08/22/19 05/08/22 mcg/actuation nasal spray,suspension furosemide 20 mg tablet 20 mg PO QAM 08/22/19 05/08/22 levothyroxine 50 mcg tablet 100 mcg PO QAM 08/22/19 05/08/22 losartan 100 mg tablet 100 mg PO QAM 08/22/19 05/08/22 metformin 850 mg tablet 850 mg PO BID 08/22/19 05/08/22 metoprolol tartrate 25 mg tablet 25 mg PO BID 08/22/19 05/08/22 montelukast 10 mg tablet 10 mg PO QAM 08/22/19 05/08/22 multivitamin 1 tab PO DAILY 08/22/19 05/08/22 venlafaxine 37.5 mg 37.5 mg PO QAM 08/24/19 05/08/22 capsule,extended release 24 hr bimatoprost 0.01 % eye drops 1 drp ophthalmic (eye) QPM 05/08/22 05/08/22 (Lumigan) magnesium oxide 400 mg (241.3 mg 400 mg PO QPM 10/23/23 10/23/23 magnesium) tablet zinc gluconate 50 mg tablet 50 mg PO QPM 10/23/23 10/23/23 Previous Rx's Medication Instructions Recorded hydrocodone 5 mg-acetaminophen 325 1 tab PO Q6H PRN pain #10 tabs 05/08/22 mg tablet hydrocodone 5 mg-acetaminophen 325 1 tab PO QID PRN pain #12 tabs 05/08/22 mg tablet hydrocodone 5 mg-acetaminophen 325 1 - 2 tab PO Q6H PRN pain #10 tabs 05/12/23 mg tablet Results & Data (ED) Vital Signs Vital Signs - 24 hr 10/23/23 19:22 10/23/23 19:22 10/23/23 19:28 Temperature 36.8 C 36.8 C Temperature Source Oral Oral Pulse Rate 85 87 Pulse Rate [Finger] 85 Pulse Rhythm Regular Pulse Rhythm [Finger] Regular Pulse Strength Normal Pulse Strength [Finger] Normal Respiratory Rate 20 18 Respiratory Effort / Characteristics Non-Labored Spontaneous Non-Labored Spontaneous Respiratory Depth Normal Normal Blood Pressure 181/81 H Blood Pressure [Right Arm] 181/81 H Blood Pressure Mean 114 Blood Pressure Mean [Right Arm] 114 Blood Pressure Position Sitting Blood Pressure Position [Right Arm] Sitting Pulse Oximetry 95 95 Oxygen Delivery Method Room Air Room Air Sepsis Recent Fever Within 48 Hours No Sepsis New/Unexplained Change in Mental Status N/A Sepsis Action Taken by Nursing No Action Required 10/23/23 21:35 Temperature Temperature Source Pulse Rate Pulse Rate [Finger] 87 Pulse Rhythm Pulse Rhythm [Finger] Regular Pulse Strength Pulse Strength [Finger] Normal Respiratory Rate 16 Respiratory Effort / Characteristics Non-Labored Spontaneous Respiratory Depth Normal Blood Pressure Blood Pressure [Right Arm] 182/80 H Blood Pressure Mean Blood Pressure Mean [Right Arm] 114 Blood Pressure Position Blood Pressure Position [Right Arm] Pulse Oximetry 94 Oxygen Delivery Method Room Air Sepsis Recent Fever Within 48 Hours Sepsis New/Unexplained Change in Mental Status Sepsis Action Taken by Nursing Laboratory Data 10/23/23 19:27 10/23/23 19:27 Lab Results 10/23/23 10/23/23 10/23/23 Range/Units 19:23 19:27 Unknown WBC 12.77 H (4.8-10.8) K/ul RBC 4.36 (4.20-5.40) M/uL Hgb 12.8 (12.0-16.0) g/dl Hct 38.2 (37.0-47.0) % MCV 87.6 (80.0-100.0) fL MCH 29.4 (25.0-34.0) pg MCHC 33.5 (32.0-36.0) g/dL RDW Std Deviation 45.7 (36.4-46.3) fL RDW Coeff of Stoney 14.3 (11.5-14.5) % Plt Count 324 (130-400) K/uL MPV 11.2 (9.4-12.4) fL Immature Gran % (Auto) 0.4 % Neut % (Auto) 77.7 % Lymph % (Auto) 9.5 % Divide % (Auto) 11.4 % Eos % (Auto) 0.7 % Baso % (Auto) 0.3 % Neut # (Auto) 9.93 H (1.40-6.50) K/uL Lymph # (Auto) 1.21 (1.20-3.40) K/uL Divide # (Auto) 1.45 H (0.11-0.59) K/uL Eos # (Auto) 0.09 (0.00-0.50) K/uL Baso # (Auto) 0.04 (0.00-0.20) K/uL Immature Gran # (Auto) 0.05 (0.01-0.20) K/uL Sodium 136 (136-145) mmol/L Potassium 3.5 (3.5-5.1) mmol/L Chloride 99 (98-107) mmol/L Carbon Dioxide 27 (21-32) mmol/L Anion Gap 10 (3-11) BUN 14 (6-23) mg/dl Creatinine 0.67 (0.6-1.2) mg/dl Est Cr Clr Drug Dosing 61.7 ml/min Est GFR ( Amer) 93.6 ml/min Est GFR (Non-Af Amer) 80.7 ml/min BUN/Creatinine Ratio 20.9 H (10-20) Glucose 164 H (70-99(Fasting)) mg/dl POC Glucose 145 H (70-99) mg/dl Calcium 9.7 (8.6-10.3) mg/dl Magnesium 1.3 L (1.7-2.4) mg/dl Total Bilirubin 0.4 (0.2-1.0) mg/dl AST 11 L (13-39) U/L ALT 8 (7-52) U/L Alkaline Phosphatase 55 (34-104) U/L Troponin I High Sens 14.2 H (0-14) pg/ml B-Natriuretic Peptide 262 H (0-100) pg/ml Total Protein 6.4 (6.0-8.3) gm/dl Albumin 3.7 (3.4-5.0) gm/dl Globulin 2.7 (2.5-4.0) gm/dl Albumin/Globulin Ratio 1.4 (0.9-2) TSH 0.271 L (0.300-4.500) uIu/ml Free T4 1.52 (0.61-1.60) ng/dl Urine Color Yellow Urine Appearance Turbid A (Clear) Urine pH 7.5 (4.5-7.5) Ur Specific Embudo 1.013 (1.000-1.030) Urine Protein Negative (Negative) Urine Glucose (UA) Negative (Negative) Urine Ketones Trace H (Negative) Urine Blood 1+ H (Negative) Urine Nitrite Negative (Negative) Urine Bilirubin Negative (Negative) Urine Urobilinogen Negative (Negative) Ur Leukocyte Esterase Trace H (Negative) Urine WBC (Auto) 1-5 (0-5) /hpf Urine RBC (Auto) 5-10 H (0-4) /hpf U Hyaline Cast (Auto) 0 (0-5) /lpf U Epithel Cells (Auto) 5-10 H (0-5) /lpf Urine Bacteria (Auto) 1+ H (Negative) Urine Crystals Not Reportable Amorphous Sediment Present A (None Prsent) Urine Yeast Not Reportable Administered Medications Discontinued Medications Magnesium Sulfate/Dextrose (Magnesium Sulfate / D5w) 1 gm in 100 mls @ 200 mls/hr IV Q30M ALYSA Stop: 10/23/23 22:44 Last Infusion: 10/23/23 23:12 Dose: Infused Documented By: Admin: 10/23/23 22:32 Dose: 200 mls/hr Documented By: Infusion: 10/23/23 22:32 Dose: Infused Documented By: Admin: 10/23/23 22:04 Dose: 200 mls/hr Documented By: CARLOS Cefazolin Sodium (Ancef 2000mg) 2,000 mg in 15 mls @ 3.75 mls/min IV NOW STA Stop: 10/23/23 22:50 Last Admin: 10/23/23 22:50 Dose: 3.75 mls/min Documented By: MOIZ Ketorolac Tromethamine (Ketorolac Tromethamine 15 Mg/Ml Vial) 10 mg IV NOW STA Stop: 10/23/23 21:45 Last Admin: 10/23/23 22:03 Dose: 10 mg Documented By: KT Imaging Data Radiologist's Impression: Ankle X-Ray 10/23/23 19:28 LEFT ANKLE 3 VIEWS HISTORY: Left ankle swelling COMPARISON: Left ankle 06/29/2017. FINDINGS: There is diffuse soft tissue swelling within the left ankle. No acute fracture or dislocation. Plate and screw fixation again noted at the first MTP joint. The hardware appears intact. Moderate degenerative changes at the tibiotalar joint. There is a plantar heel spur noted. Well-corticated ossific density at the medial malleolus is consistent with an old avulsion fracture. No radiopaque foreign bodies. IMPRESSION: Soft tissue swelling within the left ankle. No acute fracture or dislocation. ACT 112: Negative or not required by law. Electronically signed by: Charlie Atkinson M.D. 10/23/2023 7:59 PM Chest X-Ray 10/23/23 19:29 XR chest 1V portable HISTORY: Syncope. COMPARISON: Chest 08/22/2019. FINDINGS: No pneumothorax. No pleural effusions. No focal lung consolidations to suggest a pneumonia. No evidence for pulmonary edema. The cardiac silhouette remains top normal in size. There are mitral and is calcifications noted. No acute fractures identified. Degenerative changes within the shoulders. There is mild elevation of the right hemidiaphragm. IMPRESSION: No significant change compared to the prior study. No acute process. ACT 112: Negative or not required by law. Electronically signed by: Charlie Atkinson M.D. 10/23/2023 8:[address] 10/23/23 19:29 Exam(s): CT HEAD Without Contrast EXAM: CT Head Without Intravenous Contrast CLINICAL HISTORY: Fall. TECHNIQUE: Axial computed tomography images of the head/brain without intravenous contrast. Automated exposure control was utilized for the study. A dose lowering technique was utilized adhering to the principles of ALARA. COMPARISON: No relevant prior studies available. FINDINGS: Brain: No intracranial hemorrhage, mass-effect or midline shift. No abnormal extra axial fluid. No evidence of acute infarct. Mild periventricular white matter hypodensities are most consistent with chronic microangiopathy. Ventricles: Unremarkable. No ventriculomegaly. Bones/joints: Unremarkable. No acute fracture. Soft tissues: Unremarkable. Sinuses: Unremarkable as visualized. No acute sinusitis. Mastoid air cells: Unremarkable as visualized. No mastoid effusion. IMPRESSION: No acute intracranial finding. Electronically signed by: Jackeline Cintron MD 10/23/23 21:20 PM Venous Doppler Study 10/23/23 20:16 Exam(s): US VENOUS LEFT LOWER EXTREMITY EXAM: US Duplex Left Lower Extremity Veins CLINICAL HISTORY: Swelling. TECHNIQUE: Real-time duplex ultrasound scan of the left lower extremity veins integrating B-mode two-dimensional vascular structure, Doppler spectral analysis, color flow Doppler imaging and compression. COMPARISON: No relevant prior studies available. FINDINGS: Deep veins: Unremarkable. No DVT in the visualized common femoral, femoral, proximal deep femoral or popliteal veins. The veins demonstrate normal color flow, are normally compressible, with normal phasic flow and/or augmentation response. Superficial veins: Unremarkable. No thrombus in the visualized great saphenous vein. Soft tissues: Nonspecific soft tissue swelling of the calf. No popliteal cyst. IMPRESSION: 1. No deep vein thrombosis of the left lower extremity. 2. Nonspecific soft tissue swelling of the calf. Electronically signed by: Jackeline Cintron MD 10/23/23 21:39 PM Discharge Plan Visit Data Chief Complaint: Syncope ED Provider: Cb Fernandez Discharge Problem: Syncope and collapse, Hypomagnesemia, Left ankle swelling Patient Disposition: Being Evaluated by Hospitalist Forms Stand Alone Forms: My [facility] Prescriptions Prescriptions: No Action atorvastatin 20 mg tablet 20 mg PO QAM clindamycin HCl 300 mg capsule 300 mg PO TID levothyroxine 50 mcg tablet 100 mcg PO QAM montelukast 10 mg tablet 10 mg PO QAM multivitamin Tablet 1 tab PO DAILY fluticasone propion-salmeterol [Wixela Inhub] 250-50 mcg/dose blister with device 1 inh inhalation BID metformin 850 mg tablet 850 mg PO BID aspirin 81 mg Tablet,Delayed Release (Dr/Ec) 81 mg PO QAM furosemide 20 mg tablet 20 mg PO QAM losartan 100 mg tablet 100 mg PO QAM fluticasone propionate 50 mcg/actuation spray,suspension 2 spray intranasal QAM coenzyme Q10 [CoQ-10] 100 mg Capsule 100 mg PO QAM metoprolol tartrate 25 mg tablet 25 mg PO BID dexlansoprazole [Dexilant] 60 mg capsule,biphase delayed releas 60 mg PO QAM cyanocobalamin (vitamin B-12) 1,000 mcg Capsule 1,000 mcg PO QAM venlafaxine 37.5 mg Capsule,Extended Release 24hr 37.5 mg PO QAM Lumigan 0.01 % Drops 1 drp OPHTHALMIC (EYE) QPM hydrocodone-acetaminophen 5-325 mg tablet 1 tab PO QID PRN (Reason: pain) Qty: 12 0RF hydrocodone-acetaminophen 5-325 mg tablet 1 tab PO Q6H PRN (Reason: pain) Qty: 10 0RF hydrocodone-acetaminophen 5-325 mg tablet 1 - 2 tab PO Q6H PRN (Reason: pain) Qty: 10 0RF Rx Instructions: Initial Treatment zinc gluconate 50 mg Tablet 50 mg PO QPM magnesium oxide 400 mg (241.3 mg magnesium) Tablet 400 mg PO QPM Referrals Referrals: Kumar Salinas MD [Primary Care Provider] -
[2023-10-23 20:15] LABS: Thyroid Stimulating Hormone 0.271 uIu/ml (0.300-4.500)
[2023-10-23 20:50] LABS: T4 Free Thyroxine 1.52 ng/dl (0.61-1.60)
--- NOTE | 2023-10-23 21:20 | CT Scan Report ---
Exam(s): CT HEAD Without Contrast EXAM: CT Head Without Intravenous Contrast CLINICAL HISTORY: Fall. TECHNIQUE: Axial computed tomography images of the head/brain without intravenous contrast. Automated exposure control was utilized for the study. A dose lowering technique was utilized adhering to the principles of ALARA. COMPARISON: No relevant prior studies available. FINDINGS: Brain: No intracranial hemorrhage, mass-effect or midline shift. No abnormal extra axial fluid. No evidence of acute infarct. Mild periventricular white matter hypodensities are most consistent with chronic microangiopathy. Ventricles: Unremarkable. No ventriculomegaly. Bones/joints: Unremarkable. No acute fracture. Soft tissues: Unremarkable. Sinuses: Unremarkable as visualized. No acute sinusitis. Mastoid air cells: Unremarkable as visualized. No mastoid effusion. IMPRESSION: No acute intracranial finding. Electronically signed by: Jackeline Cintron MD 10/23/23 21:20 PM
--- NOTE | 2023-10-23 21:40 | Ultrasound Report ---
Exam(s): US VENOUS LEFT LOWER EXTREMITY EXAM: US Duplex Left Lower Extremity Veins CLINICAL HISTORY: Swelling. TECHNIQUE: Real-time duplex ultrasound scan of the left lower extremity veins integrating B-mode two-dimensional vascular structure, Doppler spectral analysis, color flow Doppler imaging and compression. COMPARISON: No relevant prior studies available. FINDINGS: Deep veins: Unremarkable. No DVT in the visualized common femoral, femoral, proximal deep femoral or popliteal veins. The veins demonstrate normal color flow, are normally compressible, with normal phasic flow and/or augmentation response. Superficial veins: Unremarkable. No thrombus in the visualized great saphenous vein. Soft tissues: Nonspecific soft tissue swelling of the calf. No popliteal cyst. IMPRESSION: 1. No deep vein thrombosis of the left lower extremity. 2. Nonspecific soft tissue swelling of the calf. Electronically signed by: Jackeline Cintron MD 10/23/23 21:39 PM
[2023-10-23] MEDS ORDERED: KETOROLAC TROMETHAMINE 15 MG/ML VIAL IV STA (21:44)
[2023-10-23 21:54] LABS: Appearance Urine Turbid (Clear); Bacteria Urine Automated 1+ (Negative); Bilirubin Urine Negative (Negative); Blood Urine 1+ (Negative); Cast Urine Automated 0 /lpf (0-5); Color Urine Yellow; Glucose Urine UA Negative (Negative); Ketones Urine Trace (Negative); Leukocyte Esterase Urine Trace (Negative); Nitrite Urine Negative (Negative); Protein Urine Negative (Negative); Specific Gravity Urine 1.013 (1.000-1.030); Urobilinogen Urine Negative (Negative); pH Urine 7.5 (4.5-7.5)
[2023-10-23] MEDS: MAGNESIUM SULFATE / D5W 1 GM/100 ML BAG IV SCH ×2 (22:04→22:32)
[2023-10-23 22:25] LABS: Amorphous Sediment Urine Present (None Prsent)
[2023-10-23] MEDS ORDERED: ceFAZolin 2000MG 2,000 MG/15 ML SYR IV STA (22:47)
--- NOTE | 2023-10-24 02:23 | History & Physical Report ---
Date of Service October 24, 2023 Assessment & Plan (1) Syncope and collapse: Plan: 83-year-old female with past med history significant for type 2 diabetes, hypothyroidism, hyperlipidemia, obstructive sleep apnea, mild persistent asthma, paroxysmal atrial fibrillation, hypertension, history of CAD, GERD, primary open-angle glaucoma, depression, presents with syncope and left ankle pain. Syncope CT head okay Will check orthostatics Gentle fluids Monitor on telemetry floor Serial cardiac enzymes Echocardiogram Consult cardiology in a.m. Left ankle pain X-ray looks okay Pain control Ortho consult in a.m. Possible UTI Rocephin Will follow cultures Obstructive sleep apnea CPAP nightly Diabetes Hold metformin Insulin sliding scale Will monitor Follow HbA1c levels Mild persistent asthma Currently stable Continue home inhalers Paroxysmal atrial fibrillation Seems 1 episode in 2011 On aspirin and beta-monico Hypertension On chlorthalidone, losartan and metoprolol We will monitor Depression On venlafaxine History of CAD S/p stent in 1999 On aspirin statin and beta-monico Primary open-angle glaucoma Continue home eyedrops DVT prophylaxis Lovenox Disposition Telemetry floor Full code History of Present Illness Chief Complaint: Syncope and left ankle pain Primary Care Provider: Kumar Salinas MD 83-year-old female with past med history significant for type 2 diabetes, hypothyroidism, hyperlipidemia, obstructive sleep apnea, mild persistent asthma, paroxysmal atrial fibrillation, hypertension, history of CAD, GERD, primary open-angle glaucoma, depression, presents with syncope and left ankle pain. Patient states she generally walks holding furniture at home. But since last Wednesday she fell little unstable and using walker. Since she is having left ankle pain. She did not injured her ankle. She was not able to put any weight on the left leg. She was walking today in the house she suddenly passed out and fell down in between the legs of the walker. She thinks she passed out for few seconds. When she woke up she was not confused. But she laid on the floor. Her significant other called the EMS and was brought in here. Denies any chest pain. No shortness of breath. No palpitations. No dizziness. No nausea. No sweating. Appetite is okay. No difficulty swallowing. Afebrile. No abdominal pain. Normal bowel and bladder movements. Currently resting comfortably and hemodynamically stable. Past medical history. As mentioned above Past surgical history. Bilateral breast cyst removed. Colonoscopy. Coronary artery dilatation. EGD. Knee arthroscopy. Laparoscopic appendectomy. Tonsillectomy. Cataract surgery. Repair of left rotator cuff. Social history. No smoking. Alcohol rarely. No drug use. Family history. Mother had allergies. Asthma. Breast cancer. Lung cancer. Father has allergies. CHF. Paternal grandmother had glaucoma. Allergies Allergy/AdvReac Type Severity Reaction Status Date / Time Penicillins Allergy Mild . Verified 10/23/23 23:17 broccoli Allergy Unknown GAS Unverified 10/23/23 23:17 grapefruit Allergy Unknown BRONCHITIS Unverified 10/23/23 23:17 mold Allergy Unknown asthma Verified 10/23/23 23:17 symptoms orange Allergy Unknown BRONCHITIS Unverified 10/23/23 23:17 paroxetine Allergy Unknown ANAPHYLAXIS Unverified 10/23/23 23:17 pollen extracts Allergy Unknown asthma Verified 10/23/23 23:17 symptoms crab AdvReac Unknown diarrhea Verified 10/23/23 23:17 peanut AdvReac Unknown gas/bloatin Unverified 10/23/23 23:17 g Dust Allergy Unknown asthma Uncoded 10/23/23 23:17 symptoms BEANS AdvReac Unknown gas and Uncoded 10/23/23 23:17 bloating with consuption of green or kidneys beans PEANUTS AdvReac Unknown gas/bloatin Uncoded 10/23/23 23:17 g Home Medications Medication Instructions Recorded Confirmed Type atorvastatin 20 mg tablet 20 mg PO HS 08/22/19 10/23/23 History coenzyme Q10 100 mg capsule 100 mg PO QAM 08/22/19 10/23/23 History (CoQ-10) cyanocobalamin (vitamin B-12) 1,000 mcg PO QPM 08/22/19 10/23/23 History 1,000 mcg capsule dexlansoprazole 60 mg 60 mg PO QAM 08/22/19 10/23/23 History capsule,biphase delayed release (Dexilant) fluticasone propionate 50 2 spray intranasal QAM 08/22/19 10/24/23 History mcg/actuation nasal spray,suspension levothyroxine 50 mcg tablet 100 mcg PO DAILYBB 08/22/19 10/23/23 History losartan 100 mg tablet 100 mg PO QAM 08/22/19 10/23/23 History metformin 850 mg tablet 850 mg PO BIDM 08/22/19 10/23/23 History metoprolol tartrate 25 mg tablet 25 mg PO BID 08/22/19 10/23/23 History montelukast 10 mg tablet 10 mg PO QPM 08/22/19 10/23/23 History multivitamin 1 tab PO DAILY 08/22/19 10/23/23 History venlafaxine 37.5 mg 37.5 mg PO WK 08/24/19 10/23/23 History capsule,extended release 24 hr bimatoprost 0.01 % eye drops 1 drp OPB QPM 05/08/22 10/23/23 History (Sumeet) albuterol sulfate 90 mcg/actuation 2 puff inhalation Q4H PRN 10/23/23 10/23/23 History aerosol inhaler Shortness Of Breath Or Wheezing ascorbic acid (vitamin C) 500 mg 500 mg PO QAM 10/23/23 10/23/23 History tablet aspirin 81 mg tablet,delayed 81 mg PO QPM 10/23/23 10/23/23 History release (Ecotrin Low Strength) azelastine 137 mcg (0.1 %) nasal 2 spray intranasal QPM 10/23/23 10/23/23 History spray aerosol chlorthalidone 25 mg tablet 25 mg PO QAM 10/23/23 10/23/23 History cholecalciferol (vitamin D3) 25 25 mcg PO QAM 10/23/23 10/23/23 History mcg (1,000 unit) tablet ferrous sulfate 325 mg (65 mg 325 mg PO BID 10/23/23 10/23/23 History iron) tablet fluticasone 250 mcg-salmeterol 50 1 inh inhalation BID 10/23/23 10/24/23 History mcg/dose blistr powdr for inhalation (Wixela Inhub) magnesium oxide 400 mg (241.3 mg 400 mg PO QPM 10/23/23 10/23/23 History magnesium) tablet oxybutynin chloride 10 mg 10 mg PO QAM 10/23/23 10/23/23 History tablet,extended release 24 hr potassium chloride 10 mEq 20 meq PO AMPM 10/23/23 10/23/23 History tablet,extended release(part/cryst) (Klor-Con M) triamcinolone acetonide 0.1 % 1 applic topical BID 10/23/23 10/23/23 History topical cream zinc gluconate 50 mg tablet 50 mg PO QPM 10/23/23 10/23/23 History nystatin 100,000 unit/gram topical 1 applic topical TID 10/24/23 10/24/23 History cream Past Med/Surg History Medical History Asthma CAD (coronary artery disease) CKD (chronic kidney disease) stage 3, GFR 30-59 ml/min GERD (gastroesophageal reflux disease) History of placement of stent in LAD coronary artery HLD (hyperlipidemia) HTN (hypertension) Hypothyroidism DEMARIO (obstructive sleep apnea) PAF (paroxysmal atrial fibrillation) Primary open angle glaucoma Right knee DJD Right rotator cuff tear Sleep apnea T2DM (type 2 diabetes mellitus) Surgical History History of appendectomy History of arthroscopic knee surgery History of cataract extraction History of rotator cuff surgery History of tonsillectomy Stented coronary artery Family History Father CHF (congestive heart failure) Mother Cancer Social History Smoking Status: Never smoker Hx Alcohol Use: No Hx Substance Use: No Preferred Language: American Communication Ability: Effective Signs And Displays Salesperson Required: No Beliefs That Will Affect Care: None marital status: Life Partner Current Living Situation: Spouse Current Living Situation Comment: s/o Other Information That Helps Us Care for You: No Feels Safe at Home: Yes Safety Concerns: Feels Safe At This Time Assistive Devices: Glasses Review of Systems Review of Systems: All systems reviewed & are unremarkable except as noted in HPI & below Physical Exam Physical Exam: General- Not in distress. Head- atraumatic Eyes- PERRL. ENT- oropharynx clear Neck- supple, no JVD Lungs- clear to auscultation no wheezing or crackles. Heart- regular rhythm; no murmur, no gallop. Abdomen- normal bowel sounds, soft, nontender, no distension. Extremities- left ankle medial side erythematous ad mild swelling and warm on palpation. Neuro- alert, oriented x 3; PERRL, no facial palsy; no dysarthria; moves extremities. Results & Data Results & Data Vital Signs (Past 12 Hours) Vital Signs Temp Pulse Pulse Resp BP BP Pulse Ox 10/24/23 01:16 75 20 111/75 97 10/23/23 23:28 76 16 186/102 H 95 10/23/23 21:35 87 16 182/80 H 94 10/23/23 19:28 87 10/23/23 19:22 36.8 C 85 18 181/81 H 95 10/23/23 19:22 36.8 C 85 20 181/81 H 95 O2 Del Method 10/24/23 01:16 Room Air 10/23/23 23:28 Room Air 10/23/23 21:35 Room Air 10/23/23 19:28 10/23/23 19:22 Room Air 10/23/23 19:22 Room Air Diagnostic Findings Laboratory Results WBC 12.77 K/ul (4.8-10.8) H 10/23/23 19: RBC 4.36 M/uL (4.20-5.40) 10/23/23 19: Hgb 12.8 g/dl (12.0-16.0) 10/23/23 19: Hct 38.2 % (37.0-47.0) 10/23/23 19: MCV 87.6 fL (80.0-100.0) 10/23/23 19: MCH 29.4 pg (25.0-34.0) 10/23/23 19: MCHC 33.5 g/dL (32.0-36.0) 10/23/23 19: RDW Std Deviation 45.7 fL (36.4-46.3) 10/23/23 19: RDW Coeff of Stoney 14.3 % (11.5-14.5) 10/23/23 19: Plt Count 324 K/uL (130-400) 10/23/23 19: MPV 11.2 fL (9.4-12.4) 10/23/23 19: Immature Gran % (Auto) 0.4 % 10/23/23 19: Neut % (Auto) 77.7 % 10/23/23 19: Lymph % (Auto) 9.5 % 10/23/23 19: [place] % (Auto) 11.4 % 10/23/23 19: Eos % (Auto) 0.7 % 10/23/23 19: Baso % (Auto) 0.3 % 10/23/23 19: Neut # (Auto) 9.93 K/uL (1.40-6.50) H 10/23/23 19: Lymph # (Auto) 1.21 K/uL (1.20-3.40) 10/23/23 19: [place] # (Auto) 1.45 K/uL (0.11-0.59) H 10/23/23: Eos # (Auto) 0.09 K/uL (0.00-0.50) 10/23/23 19: Baso # (Auto) 0.04 K/uL (0.00-0.20) 10/23/23 19: Immature Gran # (Auto) 0.05 K/uL (0.01-0.20) 10/23/23 19: Sodium 136 mmol/L (136-145) 10/23/23: Potassium 3.5 mmol/L (3.5-5.1) 10/23/23: Chloride 99 mmol/L (98-107) 10/23/23 19: Carbon Dioxide 27 mmol/L (21-32) 10/23/23 19: Anion Gap 10 (3-11) 10/23/23: BUN 14 mg/dl (6-23) 10/23/23: Creatinine 0.67 mg/dl (0.6-1.2) 10/23/23 19: Est Cr Clr Drug Dosing 61.7 ml/min 10/23/23 19: Est GFR ( Amer) 93.6 ml/min 10/23/23 19: Est GFR (Non-Af Amer) 80.7 ml/min 10/23/23: BUN/Creatinine Ratio 20.9 (10-20) H 10/23/23 19: Glucose 164 mg/dl (70-99(Fasting)) H 10/23/23: POC Glucose 145 mg/dl (70-99) H 10/23/23: Calcium 9.7 mg/dl (8.6-10.3) 10/23/23: Magnesium 1.3 mg/dl (1.7-2.4) L 10/23/23 19: Total Bilirubin 0.4 mg/dl (0.2-1.0) 10/23/23 19: AST 11 U/L (13-39) L 10/23/23: ALT 8 U/L (7-52) 10/23/23 19: Alkaline Phosphatase 55 U/L (34-104) 10/23/23 19: Troponin I High Sens 14.2 pg/ml (0-14) H 10/23/23: B-Natriuretic Peptide 262 pg/ml (0-100) H 10/23/23 19: Total Protein 6.4 gm/dl (6.0-8.3) 10/23/23: Albumin 3.7 gm/dl (3.4-5.0) 10/23/23: Globulin 2.7 gm/dl (2.5-4.0) 10/23/23: Albumin/Globulin Ratio 1.4 (0.9-2) 10/23/23: TSH 0.271 uIu/ml (0.300-4.500) L 10/23/23: Free T4 1.52 ng/dl (0.61-1.60) 10/23/23: Urine Color Yellow 10/23/23 Unknown Urine Appearance Turbid (Clear) A 10/23/23 Unknown Urine pH 7.5 (4.5-7.5) 10/23/23 Unknown Ur Specific Strong 1.013 (1.000-1.030) 10/23/23 Unknown Urine Protein Negative (Negative) 10/23/23 Unknown Urine Glucose (UA) Negative (Negative) 10/23/23 Unknown Urine Ketones Trace (Negative) H 10/23/23 Unknown Urine Blood 1+ (Negative) H 10/23/23 Unknown Urine Nitrite Negative (Negative) 10/23/23 Unknown Urine Bilirubin Negative (Negative) 10/23/23 Unknown Urine Urobilinogen Negative (Negative) 10/23/23 Unknown Ur Leukocyte Esterase Trace (Negative) H 10/23/23 Unknown Urine WBC (Auto) 1-5 /hpf (0-5) 10/23/23 Unknown Urine RBC (Auto) 5-10 /hpf (0-4) H 10/23/23 Unknown U Hyaline Cast (Auto) 0 /lpf (0-5) 10/23/23 Unknown U Epithel Cells (Auto) 5-10 /lpf (0-5) H 10/23/23 Unknown Urine Bacteria (Auto) 1+ (Negative) H 10/23/23 Unknown Urine Crystals Not Reportable 10/23/23 Unknown Amorphous Sediment Present (None Prsent) A 10/23/23 Unknown Urine Yeast Not Reportable 10/23/23 Unknown Impressions Ankle X-Ray 10/23/23 19:28 LEFT ANKLE 3 VIEWS HISTORY: Left ankle swelling COMPARISON: Left ankle 06/29/2017. FINDINGS: There is diffuse soft tissue swelling within the left ankle. No acute fracture or dislocation. Plate and screw fixation again noted at the first MTP joint. The hardware appears intact. Moderate degenerative changes at the tibiotalar joint. There is a plantar heel spur noted. Well-corticated ossific density at the medial malleolus is consistent with an old avulsion fracture. No radiopaque foreign bodies. IMPRESSION: Soft tissue swelling within the left ankle. No acute fracture or dislocation. ACT 112: Negative or not required by law. Electronically signed by: Charlie Atkinson M.D. 10/23/2023 7:59 PM Chest X-Ray 10/23/23 19:29 XR chest 1V portable HISTORY: Syncope. COMPARISON: Chest 08/22/2019. FINDINGS: No pneumothorax. No pleural effusions. No focal lung consolidations to suggest a pneumonia. No evidence for pulmonary edema. The cardiac silhouette remains top normal in size. There are mitral and is calcifications noted. No acute fractures identified. Degenerative changes within the shoulders. There is mild elevation of the right hemidiaphragm. IMPRESSION: No significant change compared to the prior study. No acute process. ACT 112: Negative or not required by law. Electronically signed by: Charlie Atkinson M.D. 10/23/2023 8:[address] 10/23/23 19:29 Exam(s): CT HEAD Without Contrast EXAM: CT Head Without Intravenous Contrast CLINICAL HISTORY: Fall. TECHNIQUE: Axial computed tomography images of the head/brain without intravenous contrast. Automated exposure control was utilized for the study. A dose lowering technique was utilized adhering to the principles of ALARA. COMPARISON: No relevant prior studies available. FINDINGS: Brain: No intracranial hemorrhage, mass-effect or midline shift. No abnormal extra axial fluid. No evidence of acute infarct. Mild periventricular white matter hypodensities are most consistent with chronic microangiopathy. Ventricles: Unremarkable. No ventriculomegaly. Bones/joints: Unremarkable. No acute fracture. Soft tissues: Unremarkable. Sinuses: Unremarkable as visualized. No acute sinusitis. Mastoid air cells: Unremarkable as visualized. No mastoid effusion. IMPRESSION: No acute intracranial finding. Electronically signed by: Jackeline Cintron MD 10/23/23 21:20 PM Venous Doppler Study 10/23/23 20:16 Exam(s): US VENOUS LEFT LOWER EXTREMITY EXAM: US Duplex Left Lower Extremity Veins CLINICAL HISTORY: Swelling. TECHNIQUE: Real-time duplex ultrasound scan of the left lower extremity veins integrating B-mode two-dimensional vascular structure, Doppler spectral analysis, color flow Doppler imaging and compression. COMPARISON: No relevant prior studies available. FINDINGS: Deep veins: Unremarkable. No DVT in the visualized common femoral, femoral, proximal deep femoral or popliteal veins. The veins demonstrate normal color flow, are normally compressible, with normal phasic flow and/or augmentation response. Superficial veins: Unremarkable. No thrombus in the visualized great saphenous vein. Soft tissues: Nonspecific soft tissue swelling of the calf. No popliteal cyst. IMPRESSION: 1. No deep vein thrombosis of the left lower extremity. 2. Nonspecific soft tissue swelling of the calf. Electronically signed by: Jackeline Cintron MD 10/23/23 21:39 PM Code Status & VTE Plan VTE Prophylaxis Plan VTE Prophylaxis will be ordered: Yes
[2023-10-24] MEDS ORDERED: GLUCAGON FOR INJ 1 MG VIAL SQ PRN (03:51)
[2023-10-24] MEDS ORDERED: GLUCOSE 40% GEL 15 GM TUBE PO PRN (03:51)
[2023-10-24] MEDS ORDERED: NITROGLYCERIN SL 0.4 MG/TAB TAB SL PRN (03:51)
[2023-10-24] MEDS ORDERED: DEXTROSE 50% 50 ML SYRINGE IV PRN (03:51)
[2023-10-24] MEDS ORDERED: SODIUM CHLORIDE 0.9% 1,000 ML IV SCH (03:51)
[2023-10-24] MEDS ORDERED: ALBUTEROL HFA 8 GM INHALER INH PRN (03:51)
[2023-10-24] MEDS ORDERED: GLUCOSE 10 TAB/TUBE PO PRN (03:51)
[2023-10-24] MEDS ORDERED: CARBOHYDRATES FOR HYPOGLYCEMIA PO PRN (03:51)
[2023-10-24] MEDS ORDERED: POLYETHYLENE (MIRALAX) 17 GM PACK PO PRN (03:51)
[2023-10-24 04:14] LABS: Basophils # (auto) 0.02 K/uL (0.00-0.20); Basophils % (auto) 0.2 %; Eosinophils # (auto) 0.08 K/uL (0.00-0.50); Eosinophils % (auto) 0.9 %; Hematocrit (blood only) 36.1 % (37.0-47.0); Hemoglobin 11.9 g/dl (12.0-16.0); Immature Granulocytes # (auto) 0.02 K/uL (0.01-0.20); Immature Granulocytes % (auto) 0.2 %; Mean Corpuscular Hemoglobin 29.2 pg (25.0-34.0); Mean Corpuscular Volume 88.7 fL (80.0-100.0); Mean Platelet Volume 10.8 fL (9.4-12.4); Monocytes # (auto) 1.13 K/uL (0.11-0.59); Monocytes % (auto) 13.2 %; Neutrophils # (auto) 5.54 K/uL (1.40-6.50); Neutrophils % (auto) 64.5 %; Platelet Count 288 K/uL (130-400); RDW Coefficient of Variation 14.1 % (11.5-14.5); RDW Standard Deviation 45.6 fL (36.4-46.3); Red Blood Count 4.07 M/uL (4.20-5.40); White Blood Count 8.59 K/ul (4.8-10.8)
[2023-10-24 04:32] LABS: Calcium 9.3 mg/dl (8.6-10.3); Creatinine Clr Calc Pharmacy 65.6 ml/min; Est GFR (African American) 95.5 ml/min; Est GFR (Non-African American) 82.4 ml/min; Magnesium 1.9 mg/dl (1.7-2.4); Potassium 3.1 mmol/L (3.5-5.1)
[2023-10-24 04:39] LABS: Troponin I High Sensitivity 12.2 pg/ml (0-14)
[2023-10-24] MEDS ORDERED: INFLUENZA VACCINE HIGH-DOSE (HD-IIV4) PF 65+ 0.7mL SYR IM ONE (05:04)
[2023-10-24] MEDS: cefTRIAXone SODIUM 2,000 MG in DEXTROSE 5 % MINI-B 50 ML IV SCH (08:55)
[2023-10-24] MEDS: CHLORTHALIDONE 25 MG TAB PO SCH (08:59)
[2023-10-24] MEDS: ASCORBIC ACID 500 MG TAB PO SCH (08:59)
[2023-10-24] MEDS ORDERED: NON-FORMULARY MEDICATION (Coenzyme Q10 [Coq-10] 100 mg Capsule) PO SCH (09:00)
[2023-10-24] MEDS: FERROUS SULFATE 325 MG TAB PO SCH ×3 (09:00→21:34)
[2023-10-24] MEDS: ENOXAPARIN INJ 40 MG/0.4 ML SYR SQ SCH (09:00)
[2023-10-24] MEDS: CHOLECALCIFEROL 1,000 UNITS 25 MCG TAB PO SCH (09:00)
[2023-10-24] MEDS: FLUTICASONE/VILANTEROL 200/25MCG 14 PUFFS/INHALER INH SCH (09:01)
[2023-10-24] MEDS: FLUTICASONE PROPIONATE NA SPR 16 GM BTL SCH (09:01)
[2023-10-24] MEDS: METOPROLOL TARTRATE 25 MG TAB PO SCH ×2 (09:02→21:35)
[2023-10-24] MEDS: LOSARTAN POTASSIUM 50 MG TAB PO SCH (09:02)
[2023-10-24] MEDS: MULTIVITAMIN TAB PO SCH (09:04)
[2023-10-24] MEDS: POTASSIUM CHLORIDE CRTAB 20 MEQ TABCR PO SCH ×2 (09:07→21:36)
[2023-10-24] MEDS: OXYBUTYNIN CHLORIDE XL 5 MG TABCR PO SCH (09:07)
[2023-10-24] MEDS: PANTOprazole 40 MG TAB PO SCH (09:07)
[2023-10-24] MEDS: TRIAMCINOLONE ACET 0.1% CR 15 GM TUBE TOP SCH ×2 (09:08→21:41)
[2023-10-24] MEDS: VENLAFAXINE HCL XR 37.5 MG CAPXR PO SCH (09:08)
[2023-10-24] MEDS: NYSTATIN CR 15 GM TUBE EXT SCH ×3 (09:08→22:22)
[2023-10-24] MEDS: LEVOTHYROXINE SODIUM 100 MCG TABLET PO SCH (09:09)
[2023-10-24] MEDS: INSULIN ASPART PER UNIT CHARGE SC SCH ×4 (09:33→21:45)
--- NOTE | 2023-10-24 10:06 | Cardiology Consultation ---
Date of Consultation October 24, 2023 Assessment & Plan (1) Syncope and collapse: (2) HTN (hypertension): (3) Hypokalemia: (4) CAD (coronary artery disease): Plan 83-year-old female admitted with syncope. Suspect vasovagal etiology given longstanding history noted above. ECG, telemetry unremarkable since admission. Resting 2D transthoracic echocardiogram pending. Supplement electrolytes as indicated. Blood pressure elevated since admission driven by acute left ankle discomfort. Administer a.m. meds including chlorthalidone, losartan, and metoprolol. Monitor blood pressure. Pain management as per internal medicine. Consider addition of calcium channel monico therapy pending clinical course. Add 'as needed' dose of labetalol 10 mg for systolic blood pressure greater than 190 mmHg. History of Present Illness Reason for Consultation: syncope Requesting Physician: Dr. Ochoa Attending Physician: Osmany Quiroz MD History of Present Illness 83-year-old female presents to the ER after syncope. Patient reports experience significant left ankle discomfort followed by syncopal episode. Fell to the floor. Witnessed by her significant other. No tonic-clonic movements, tongue biting, or incontinence. Unconscious for less than 1 minute. Reports a long history of syncope dating back to her teenage years. Prior syncopal episodes associated with heat, humidity, with and occasionally with pain. Denies chest pain or unusual shortness of breath recently. Ambulates with use of a cane. Frequent falls noted. Telemetry reveals sinus rhythm since admission. Cardiac enzymes are not significantly elevated. Essentially normal resting ECG. Allergies Allergy/AdvReac Type Severity Reaction Status Date / Time Penicillins Allergy Mild . Verified 10/23/23 23:17 broccoli Allergy Unknown GAS Unverified 10/23/23 23:17 grapefruit Allergy Unknown BRONCHITIS Unverified 10/23/23 23:17 mold Allergy Unknown asthma Verified 10/23/23 23:17 symptoms orange Allergy Unknown BRONCHITIS Unverified 10/23/23 23:17 paroxetine Allergy Unknown ANAPHYLAXIS Unverified 10/23/23 23:17 pollen extracts Allergy Unknown asthma Verified 10/23/23 23:17 symptoms crab AdvReac Unknown diarrhea Verified 10/23/23 23:17 peanut AdvReac Unknown gas/bloatin Unverified 10/23/23 23:17 g Dust Allergy Unknown asthma Uncoded 10/23/23 23:17 symptoms BEANS AdvReac Unknown gas and Uncoded 10/23/23 23:17 bloating with consuption of green or kidneys beans PEANUTS AdvReac Unknown gas/bloatin Uncoded 10/23/23 23:17 g Home Medications Medication Instructions Recorded Confirmed Type atorvastatin 20 mg tablet 20 mg PO HS 08/22/19 10/23/23 History coenzyme Q10 100 mg capsule 100 mg PO QAM 08/22/19 10/23/23 History (CoQ-10) cyanocobalamin (vitamin B-12) 1,000 mcg PO QPM 08/22/19 10/23/23 History 1,000 mcg capsule dexlansoprazole 60 mg 60 mg PO QAM 08/22/19 10/23/23 History capsule,biphase delayed release (Dexilant) fluticasone propionate 50 2 spray intranasal QAM 08/22/19 10/24/23 History mcg/actuation nasal spray,suspension levothyroxine 50 mcg tablet 100 mcg PO DAILYBB 08/22/19 10/23/23 History losartan 100 mg tablet 100 mg PO QAM 08/22/19 10/23/23 History metformin 850 mg tablet 850 mg PO BIDM 08/22/19 10/23/23 History metoprolol tartrate 25 mg tablet 25 mg PO BID 08/22/19 10/23/23 History montelukast 10 mg tablet 10 mg PO QPM 08/22/19 10/23/23 History multivitamin 1 tab PO DAILY 08/22/19 10/23/23 History venlafaxine 37.5 mg 37.5 mg PO WK 08/24/19 10/23/23 History capsule,extended release 24 hr bimatoprost 0.01 % eye drops 1 drp OPB QPM 05/08/22 10/23/23 History (Lumigan) albuterol sulfate 90 mcg/actuation 2 puff inhalation Q4H PRN 10/23/23 10/23/23 History aerosol inhaler Shortness Of Breath Or Wheezing ascorbic acid (vitamin C) 500 mg 500 mg PO QAM 10/23/23 10/23/23 History tablet aspirin 81 mg tablet,delayed 81 mg PO QPM 10/23/23 10/23/23 History release (Ecotrin Low Strength) azelastine 137 mcg (0.1 %) nasal 2 spray intranasal QPM 10/23/23 10/23/23 History spray aerosol chlorthalidone 25 mg tablet 25 mg PO QAM 10/23/23 10/23/23 History cholecalciferol (vitamin D3) 25 25 mcg PO QAM 10/23/23 10/23/23 History mcg (1,000 unit) tablet ferrous sulfate 325 mg (65 mg 325 mg PO BID 10/23/23 10/23/23 History iron) tablet fluticasone 250 mcg-salmeterol 50 1 inh inhalation BID 10/23/23 10/24/23 History mcg/dose blistr powdr for inhalation (Wixela Inhub) magnesium oxide 400 mg (241.3 mg 400 mg PO QPM 10/23/23 10/23/23 History magnesium) tablet oxybutynin chloride 10 mg 10 mg PO QAM 10/23/23 10/23/23 History tablet,extended release 24 hr potassium chloride 10 mEq 20 meq PO AMPM 10/23/23 10/23/23 History tablet,extended release(part/cryst) (Klor-Con M) triamcinolone acetonide 0.1 % 1 applic topical BID 10/23/23 10/23/23 History topical cream zinc gluconate 50 mg tablet 50 mg PO QPM 10/23/23 10/23/23 History nystatin 100,000 unit/gram topical 1 applic topical TID 10/24/23 10/24/23 History cream Patient History Medical History Right rotator cuff tear Right knee DJD CAD (coronary artery disease) stent in 1999 T2DM (type 2 diabetes mellitus) HTN (hypertension) HLD (hyperlipidemia) PAF (paroxysmal atrial fibrillation) DEMARIO (obstructive sleep apnea) Asthma CKD (chronic kidney disease) stage 3, GFR 30-59 ml/min Primary open angle glaucoma GERD (gastroesophageal reflux disease) Hypothyroidism History of placement of stent in LAD coronary artery Sleep apnea Surgical History History of rotator cuff surgery History of cataract extraction History of arthroscopic knee surgery History of tonsillectomy History of appendectomy Stented coronary artery Family History Father CHF (congestive heart failure) Mother Cancer Social History Smoking Status: Never smoker Hx Alcohol Use: No Hx Substance Use: No Preferred Language: Malaysian Communication Ability: Effective Cake Wrapper Required: No Beliefs That Will Affect Care: None marital status: Life Partner Current Living Situation: Spouse Current Living Situation Comment: s/o Other Information That Helps Us Care for You: No Feels Safe at Home: Yes Safety Concerns: Feels Safe At This Time Assistive Devices: Cane, CPAP and Walker Review of Systems Review of Systems: All systems reviewed & are unremarkable except as noted in Subjective Physical Exam Constitutional: well nourished; no acute distress Respiratory: no respiratory distress, no labored breathing and no retractions Auscultation: no crackles, no rales, no rhonchi and no wheezes Cardiovascular: Rate/Rhythm: regular rate and regular rhythm Heart Sounds: normal S1 and normal S2; no murmur Vessels: radial pulses present; no JVD and no carotid bruit Extremities: no edema Gastrointestinal (Abdomen): Inspection/Auscultation: normal bowel sounds; abdomen not distended Percussion/Palpation: abdomen soft; abdomen nontender, no guarding and abdomen not rigid Neurologic: CN's II-XI intact bilaterally and moves all extremities; no focal motor deficits Results & Data Vital Signs (Past 12 Hours) Vital Signs Pulse Pulse Resp BP BP Pulse Ox O2 Del Method 10/24/23 09:00 75 24 219/93 H 98 Room Air 10/24/23 07:17 10/24/23 07:06 67 10/24/23 07:00 88 18 206/82 H 98 Room Air 10/24/23 04:55 82 20 154/92 H 97 Room Air 10/24/23 03:00 73 18 154/92 H 98 10/24/23 01:16 75 20 111/75 97 Room Air 10/23/23 23:30 75 10/23/23 23:28 76 16 186/102 H 95 Room Air O2 Del Method 10/24/23 09:00 10/24/23 07:17 Room Air 10/24/23 07:06 10/24/23 07:00 10/24/23 04:55 10/24/23 03:00 10/24/23 01:16 10/23/23 23:30 10/23/23 23:28 Laboratory Results Cardiac Enzymes 10/23/23 10/24/23 Range/Units 19:27 03:54 AST 11 L (13-39) U/L Troponin I High Sens 14.2 H 12.2 (0-14) pg/ml B-Natriuretic Peptide 262 H (0-100) pg/ml Coagulation 10/23/23 Range/Units 19:27 B-Natriuretic Peptide 262 H (0-100) pg/ml CBC 10/23/23 10/24/23 Range/Units 19:27 03:54 WBC 12.77 H 8.59 (4.8-10.8) K/ul RBC 4.36 4.07 L (4.20-5.40) M/uL Hgb 12.8 11.9 L (12.0-16.0) g/dl Hct 38.2 36.1 L (37.0-47.0) % Plt Count 324 288 (130-400) K/uL Neut # (Auto) 9.93 H 5.54 (1.40-6.50) K/uL Lymph # (Auto) 1.21 1.80 (1.20-3.40) K/uL Mckenzie # (Auto) 1.45 H 1.13 H (0.11-0.59) K/uL Eos # (Auto) 0.09 0.08 (0.00-0.50) K/uL Baso # (Auto) 0.04 0.02 (0.00-0.20) K/uL Comprehensive Metabolic Panel 10/23/23 10/24/23 Range/Units 19:27 03:54 Sodium 136 135 L (136-145) mmol/L Potassium 3.5 3.1 L (3.5-5.1) mmol/L Chloride 99 98 (98-107) mmol/L Carbon Dioxide 27 30 (21-32) mmol/L BUN 14 12 (6-23) mg/dl Creatinine 0.67 0.63 (0.6-1.2) mg/dl Glucose 164 H 119 H (70-99(Fasting)) mg/dl Calcium 9.7 9.3 (8.6-10.3) mg/dl AST 11 L (13-39) U/L ALT 8 (7-52) U/L Alkaline Phosphatase 55 (34-104) U/L Total Protein 6.4 (6.0-8.3) gm/dl Albumin 3.7 (3.4-5.0) gm/dl Intake and Output 10/23/23 10/24/23 10/24/23 22:59 06:59 14:59 Intake Total 93.333 / 193.333 100 / 193.333 50 / 50 Balance 93.333 / 193.333 100 / 193.333 50 / 50 Intake: IV 93.333 / 193.333 100 / 193.333 50 / 50 Magnesium Sulfate / D5w 1 gm In 93.333 / 193.333 100 / 193.333 100 ml @ 200 mls/hr IV Q30M [facility] Rx#:[id number] cefTRIAXone SODIUM 2,000 mg In 50 / 50 Dextrose 5 % Mini-B 50 ml @ 100 mls/hr IV Q24H [facility] Rx#: [id number] Oral 0 / 0 Other: Weight 81.2 kg 81.2 kg Weight Measurement Method Chair Scale Chair Scale (2) HTN (hypertension) Hypertension type: primary hypertension Qualified Code(s): I10 - Essential (primary) hypertension (4) CAD (coronary artery disease) Associated angina: without angina Coronary Disease-Associated Artery/Lesion type: [place] artery [place] vs. transplanted heart: [place] heart Qualified Code(s): I25.10 - Atherosclerotic heart disease of [place] coronary artery without angina pectoris
[2023-10-24] MEDS ORDERED: LABETALOL HCL IV 5 MG/ML 20ML IV PRN (10:14)
--- NOTE | 2023-10-24 11:25 | Orthopedic Consultation ---
Date of Consultation October 24, 2023 Assessment & Plan (1) Osteoarthritis of ankle, left: The ankle x-ray images were independently reviewed. There is moderate arthritic changes of the tibiotalar joint. There were no acute fractures. I discussed the images with the patient. With the acute inflammation of the ankle joint, a walking boot could be an option for the patient. However, if she is having difficulties with ambulation and has already been walking with the assistance of a walker for quite some time, this may make her ambulation even more difficult. The patient has a past history of chronic kidney disease. However, her creatinine was normal upon admission. She would benefit from a short-term of Celebrex which may help her ankle pain. If medicine is okay with the treatment, I will order Celebrex on a once daily basis. Will use the medication for approximately 5-7 days. If she fails to make improvement with oral NSAIDs, we may consider corticosteroid injection into the tibiotalar joint. If the patient is still inpatient, we may consider the injection while here. If she is discharged, she may follow-up on an outpatient basis. She sees Dr. Mendez routinely for knee osteoarthritis and corticosteroid injections. She may follow-up with his clinic as needed for the ankle. (2) Left ankle swelling: Supervising Physician Co-Signing Physician Notes Patient seen and examined. Agree with ARELI Jenkins's note as above. She reports about 5 days of ankle pain without obvious injury, but this worsened after a syncopal episode about 2 days ago. She denies any previous pain in this left ankle, although x-rays clearly show moderate to severe ankle joint arthritis. Her history and exam is very consistent with an acute left ankle sprain in the setting of underlying ankle arthritis. No fractures are seen on x-ray. No surgical intervention is required at this point. I would recommend rest, ice, anti-inflammatories, and ankle bracing as necessary. She may weight-bear as tolerated on this left ankle. She may follow-up with orthopedics on an outpatient basis. Orthopedics will sign off at this point. History of Present Illness Reason for Consultation: Left ankle pain and swelling Attending Physician: Osmany Quiroz MD History of Present Illness This is a patient who was brought to the emergency room 2 days ago after a syncopal episode at home. She states that 3 days prior to that episode, she started having left ankle pain which was making it difficult for her to ambulate. She uses a walker to ambulate and she states she has done so for the past 1.5 years. However, 2 days ago she got up and was ambulating and is uncertain of what happened but she passed out and had a fall to the floor. She denies any injury to the ankle during that fall. She states that the ankle feels the same now as what it felt 5 days ago prior to any falls. She has not had any prior treatment for this ankle pain. She denies any previous history of pain or injury to the ankle. Allergies Allergy/AdvReac Type Severity Reaction Status Date / Time Penicillins Allergy Mild . Verified 10/23/23 23:17 broccoli Allergy Unknown GAS Unverified 10/23/23 23:17 grapefruit Allergy Unknown BRONCHITIS Unverified 10/23/23 23:17 mold Allergy Unknown asthma Verified 10/23/23 23:17 symptoms orange Allergy Unknown BRONCHITIS Unverified 10/23/23 23:17 paroxetine Allergy Unknown ANAPHYLAXIS Unverified 10/23/23 23:17 pollen extracts Allergy Unknown asthma Verified 10/23/23 23:17 symptoms crab AdvReac Unknown diarrhea Verified 10/23/23 23:17 peanut AdvReac Unknown gas/bloatin Unverified 10/23/23 23:17 g Dust Allergy Unknown asthma Uncoded 10/23/23 23:17 symptoms BEANS AdvReac Unknown gas and Uncoded 10/23/23 23:17 bloating with consuption of green or kidneys beans PEANUTS AdvReac Unknown gas/bloatin Uncoded 10/23/23 23:17 g Home Medications Medication Instructions Recorded Confirmed Type atorvastatin 20 mg tablet 20 mg PO HS 08/22/19 10/23/23 History coenzyme Q10 100 mg capsule 100 mg PO QAM 08/22/19 10/23/23 History (CoQ-10) cyanocobalamin (vitamin B-12) 1,000 mcg PO QPM 08/22/19 10/23/23 History 1,000 mcg capsule dexlansoprazole 60 mg 60 mg PO QAM 08/22/19 10/23/23 History capsule,biphase delayed release (Dexilant) fluticasone propionate 50 2 spray intranasal QA 08/22/19 10/24/23 History mcg/actuation nasal spray,suspension levothyroxine 50 mcg tablet 100 mcg PO DAILYBB 08/22/19 10/23/23 History losartan 100 mg tablet 100 mg PO QAM 08/22/19 10/23/23 History metformin 850 mg tablet 850 mg PO BIDM 08/22/19 10/23/23 History metoprolol tartrate 25 mg tablet 25 mg PO BID 08/22/19 10/23/23 History montelukast 10 mg tablet 10 mg PO QPM 08/22/19 10/23/23 History multivitamin 1 tab PO DAILY 08/22/19 10/23/23 History venlafaxine 37.5 mg 37.5 mg PO WK 08/24/19 10/23/23 History capsule,extended release 24 hr bimatoprost 0.01 % eye drops 1 drp OPB QPM 05/08/22 10/23/23 History (Sumeet) albuterol sulfate 90 mcg/actuation 2 puff inhalation Q4H PRN 10/23/23 10/23/23 History aerosol inhaler Shortness Of Breath Or Wheezing ascorbic acid (vitamin C) 500 mg 500 mg PO QAM 10/23/23 10/23/23 History tablet aspirin 81 mg tablet,delayed 81 mg PO QPM 10/23/23 10/23/23 History release (Ecotrin Low Strength) azelastine 137 mcg (0.1 %) nasal 2 spray intranasal QPM 10/23/23 10/23/23 History spray aerosol chlorthalidone 25 mg tablet 25 mg PO QAM 10/23/23 10/23/23 History cholecalciferol (vitamin D3) 25 25 mcg PO QAM 10/23/23 10/23/23 History mcg (1,000 unit) tablet ferrous sulfate 325 mg (65 mg 325 mg PO BID 10/23/23 10/23/23 History iron) tablet fluticasone 250 mcg-salmeterol 50 1 inh inhalation BID 10/23/23 10/24/23 History mcg/dose blistr powdr for inhalation (Wixela Inhub) magnesium oxide 400 mg (241.3 mg 400 mg PO QPM 10/23/23 10/23/23 History magnesium) tablet oxybutynin chloride 10 mg 10 mg PO QAM 10/23/23 10/23/23 History tablet,extended release 24 hr potassium chloride 10 mEq 20 meq PO AMPM 10/23/23 10/23/23 History tablet,extended release(part/cryst) (Klor-Con M) triamcinolone acetonide 0.1 % 1 applic topical BID 10/23/23 10/23/23 History topical cream zinc gluconate 50 mg tablet 50 mg PO QPM 10/23/23 10/23/23 History nystatin 100,000 unit/gram topical 1 applic topical TID 10/24/23 10/24/23 History cream Patient History Medical History Right rotator cuff tear Right knee DJD CAD (coronary artery disease) stent in 1999 T2DM (type 2 diabetes mellitus) HTN (hypertension) HLD (hyperlipidemia) PAF (paroxysmal atrial fibrillation) DEMARIO (obstructive sleep apnea) Asthma CKD (chronic kidney disease) stage 3, GFR 30-59 ml/min Primary open angle glaucoma GERD (gastroesophageal reflux disease) Hypothyroidism History of placement of stent in LAD coronary artery Sleep apnea Surgical History History of rotator cuff surgery History of cataract extraction History of arthroscopic knee surgery History of tonsillectomy History of appendectomy Stented coronary artery Family History Father CHF (congestive heart failure) Mother Cancer Social History Smoking Status: Never smoker Hx Alcohol Use: No Hx Substance Use: No Preferred Language: Hungarian Communication Ability: Effective Affiliate Manager Required: No Beliefs That Will Affect Care: None marital status: Life Partner Current Living Situation: Spouse Current Living Situation Comment: s/o Other Information That Helps Us Care for You: No Feels Safe at Home: Yes Safety Concerns: Feels Safe At This Time Assistive Devices: Cane, CPAP and Walker Physical Exam Constitutional: WD/WN, vitals as above no acute distress Musculoskeletal: Ankle: + effusion (Mild left ankle but warmth around the ankle joint w/o erythema), + limited ROM of ankle (Left ankle: She degrees of dorsiflexion. 30-35 degrees of plantarflexion. ) and + joint line tenderness (ankle) (Anterior left ankle joint); ankle normal to inspection, no skin erythema and no ecchymosis Skin: no rashes, warm and dry Trauma: no evidence of skin trauma Neurologic: normal touch/pain/proprioception Psychiatric: A+Ox3, euthymic affect Speech: normal rate/rhythm/volume of speech Results & Data Vital Signs (Past 12 Hours) Vital Signs Pulse Pulse Resp BP BP Pulse Ox O2 Del Method 10/24/23 10:59 58 L 16 213/78 H 94 Room Air 10/24/23 10:00 62 23 182/70 H 96 Room Air 10/24/23 09:00 75 24 219/93 H 98 Room Air 10/24/23 07:17 10/24/23 07:06 67 10/24/23 07:00 88 18 206/82 H 98 Room Air 10/24/23 04:55 82 20 154/92 H 97 Room Air 10/24/23 03:00 73 18 154/92 H 98 10/24/23 01:16 75 20 111/75 97 Room Air 10/23/23 23:30 75 10/23/23 23:28 76 16 186/102 H 95 Room Air O2 Del Method 10/24/23 10:59 10/24/23 10:00 10/24/23 09:00 10/24/23 07:17 Room Air 10/24/23 07:06 10/24/23 07:00 10/24/23 04:55 10/24/23 03:00 10/24/23 01:16 10/23/23 23:30 10/23/23 23:28 Laboratory Results Laboratory Tests 10/24/23 03:54 WBC 8.59 Hgb 11.9 L Hct 36.1 L BUN 12 Creatinine 0.63 Diagnostic Findings 3 views of the left ankle reviewed. No acute fractures or dislocations. There is moderate arthritic changes of the tibiotalar joint with narrowing at the medial aspect of the joint. Marginal osteophytes at the anterior and posterior aspect of the tibiotalar joint.
[2023-10-24] MEDS: NIFEdipine EXTENDED REL 30 MG TABCR PO SCH (12:02)
[2023-10-24] MEDS: CeleBREX 200 MG CAP PO SCH (13:04)
--- NOTE | 2023-10-24 14:59 | Communication Note ---
Date of Service: October 24, 2023 Patient seen and examined at bedside. She was evaluated by orthopedics for the left ankle injury; was started on Celebrex. Echocardiogram results reviewed; EF of 65 to 70%; mild concentric LVH, severe mitral annular calcification. Continue monitor on telemetry PT STEVE [place]
[2023-10-24] MEDS: AZELASTINE HCL 0.1% NASAL 200 SPRAYS/27,400 MCG BTL SCH (20:07)
[2023-10-24] MEDS: BIMATOPROST 0.01% OP SOLN 2.5 ML BTL OPB SCH (20:08)
[2023-10-24] MEDS: CYANOCOBALAMIN (B-12) 500 MCG TABLET PO SCH (21:32)
[2023-10-24] MEDS: ATORVASTATIN 20 MG TAB PO SCH (21:32)
[2023-10-24] MEDS: ZINC SULFATE 220 MG CAPSULE PO SCH (21:32)
[2023-10-24] MEDS: MAGNESIUM OXIDE 400 MG TAB PO SCH (21:32)
[2023-10-24] MEDS: ASPIRIN 81 MG ECTAB PO SCH (21:34)
[2023-10-24] MEDS: MONTELUKAST SODIUM 10 MG TABLET PO SCH (21:35)
[2023-10-24] MEDS: MoRPHine SULFATE 2 MG/ML CARP IV PRN (21:58)
[2023-10-25] MEDS: LEVOTHYROXINE SODIUM 100 MCG TABLET PO SCH (05:30)
[2023-10-25 07:15] LABS: Estimated Average Glucose 126 mg/dl
[2023-10-25] MEDS: cefTRIAXone SODIUM 2,000 MG in DEXTROSE 5 % MINI-B 50 ML IV SCH (07:55)
[2023-10-25] MEDS: FLUTICASONE PROPIONATE NA SPR 16 GM BTL SCH (07:58)
[2023-10-25] MEDS: FLUTICASONE/VILANTEROL 200/25MCG 14 PUFFS/INHALER INH SCH (07:58)
[2023-10-25] MEDS: VENLAFAXINE HCL XR 37.5 MG CAPXR PO SCH (07:59)
[2023-10-25] MEDS: FERROUS SULFATE 325 MG TAB PO SCH ×2 (07:59→20:05)
[2023-10-25] MEDS: CHLORTHALIDONE 25 MG TAB PO SCH (07:59)
[2023-10-25] MEDS: CHOLECALCIFEROL 1,000 UNITS 25 MCG TAB PO SCH (07:59)
[2023-10-25] MEDS: OXYBUTYNIN CHLORIDE XL 5 MG TABCR PO SCH (07:59)
[2023-10-25] MEDS: MULTIVITAMIN TAB PO SCH (07:59)
[2023-10-25] MEDS: PANTOprazole 40 MG TAB PO SCH (07:59)
[2023-10-25] MEDS: NIFEdipine EXTENDED REL 30 MG TABCR PO SCH (07:59)
[2023-10-25] MEDS: POTASSIUM CHLORIDE CRTAB 20 MEQ TABCR PO SCH ×2 (07:59→20:03)
[2023-10-25] MEDS: METOPROLOL TARTRATE 25 MG TAB PO SCH ×2 (08:00→20:00)
[2023-10-25] MEDS: LOSARTAN POTASSIUM 50 MG TAB PO SCH (08:00)
[2023-10-25] MEDS: CeleBREX 200 MG CAP PO SCH (08:00)
[2023-10-25] MEDS: ASCORBIC ACID 500 MG TAB PO SCH (08:00)
[2023-10-25] MEDS: TRIAMCINOLONE ACET 0.1% CR 15 GM TUBE TOP SCH ×2 (08:01→19:58)
[2023-10-25] MEDS: NYSTATIN CR 15 GM TUBE EXT SCH ×3 (08:01→19:58)
[2023-10-25] MEDS: ENOXAPARIN INJ 40 MG/0.4 ML SYR SQ SCH (08:01)
[2023-10-25 08:08] LABS: Basophils # (auto) 0.04 K/uL (0.00-0.20); Basophils % (auto) 0.4 %; Eosinophils # (auto) 0.33 K/uL (0.00-0.50); Hematocrit (blood only) 40.4 % (37.0-47.0); Hemoglobin 13.2 g/dl (12.0-16.0); Immature Granulocytes # (auto) 0.04 K/uL (0.01-0.20); Immature Granulocytes % (auto) 0.4 %; Lymphocytes # (auto) 1.35 K/uL (1.20-3.40); Lymphocytes % (auto) 12.2 %; Mean Corpuscular Hemoglobin 29.1 pg (25.0-34.0); Mean Corpuscular Hgb Conc 32.7 g/dL (32.0-36.0); Mean Corpuscular Volume 89.2 fL (80.0-100.0); Mean Platelet Volume 10.6 fL (9.4-12.4); Monocytes # (auto) 1.14 K/uL (0.11-0.59); Monocytes % (auto) 10.3 %; Neutrophils # (auto) 8.13 K/uL (1.40-6.50); Neutrophils % (auto) 73.7 %; Platelet Count 318 K/uL (130-400); RDW Standard Deviation 45.9 fL (36.4-46.3); Red Blood Count 4.53 M/uL (4.20-5.40); White Blood Count 11.03 K/ul (4.8-10.8)
[2023-10-25 08:21] LABS: BUN Creatinine Ratio 21.4 (10-20); Calcium 9.7 mg/dl (8.6-10.3); Creatinine Clr Calc Pharmacy 71.7 ml/min; Est GFR (African American) 99.2 ml/min; Est GFR (Non-African American) 85.6 ml/min; Potassium 3.9 mmol/L (3.5-5.1)
[2023-10-25] MEDS: INSULIN ASPART PER UNIT CHARGE SC SCH ×4 (08:22→20:43)
[2023-10-25] MEDS ORDERED: CeleBREX 200 MG CAP PO SCH (09:00)
[2023-10-25] MEDS ORDERED: COLCHICINE 0.6 MG TAB PO ONE (11:39)
[2023-10-25] MEDS ORDERED: OPTIRAY 320 500ml IV ONE (13:52)
--- NOTE | 2023-10-25 14:02 | Hospitalist Progress Note ---
Date of Service October 25, 2023 Assessment & Plan (1) Syncope and collapse: Plan: 83-year-old female with past med history significant for type 2 diabetes, hypothyroidism, hyperlipidemia, obstructive sleep apnea, mild persistent asthma, paroxysmal atrial fibrillation, hypertension, history of CAD, GERD, primary open-angle glaucoma, depression, presents with mechanical fall and left ankle pain. Mechanical fall Possible syncopal Patient presented to the ED after she fell down while walking with a walker in the hallways of her home. CT head without contrast reviewed personally; no acute finding EKG on admission personally reviewed; normal sinus rhythm; no ST or T wave changes Echocardiogram shows EF of 65 to 70% with grade 2 diastolic dysfunction. Severe mitral annular calcification. Continue to monitor on telemetry. PT OT ordered Left ankle pain (Strain vs gout) Patient complains of 5 days of ankle pain; no trauma X-ray left ankleno fracture or dislocation Orthopedic consulted; recommend short-term Celebrex for at least 5 to 7 days. Recommend rest, ice, anti-inflammatory. She was started on colchicine for possible gout. Uric acid ordered am CT of left ankle ordered Possible UTI Urine culturemore than 3 bacteria Repeat cultures ordered Continue on ceftriaxone Obstructive sleep apnea CPAP nightly Type II diabetes Hold metformin Insulin sliding scale A1c of 6.0% Mild persistent asthma Currently stable Continue home inhalers Paroxysmal atrial fibrillation Seems 1 episode in 2011 On aspirin and beta-monico Hypertension On chlorthalidone, losartan and metoprolol We will monitor Depression On venlafaxine History of CAD S/p stent in 1999 On aspirin statin and beta-monico Hypothyroidism TSH 0.27, free T4- 1.52. Will decrease levothyroxine to 88 mcg from 100 mcg Primary open-angle glaucoma Continue home eyedrops DVT prophylaxis Lovenox Disposition Telemetry floor Full code Time spent evaluating patient, direct bedside care, chart review, placing orders, interpretation of diagnostic studies, discussion with consultants, patient, and family members, as well as other required patient management activities is 50 minutes Please note the above document was generated using voice recognition software. It may contain grammatical, syntax or spelling errors. Any formal questions or concerns about the content, text or information contained within the body of this dictation should be directly addressed to the provider for clarification Admission and Anticipated Discharge Date Admission Date: October 24, 2023 Subjective Patient seen and examined at bedside. She is lying on the bed comfortably. She reports that the ankle pain has improved compared to yesterday. Review of Systems Review of Systems: All systems reviewed & are unremarkable except as noted in Subjective Physical Exam Physical Exam: General- Not in distress. Head- atraumatic Eyes- PERRL. ENT- oropharynx clear Neck- supple, no JVD Lungs- clear to auscultation no wheezing or crackles. Heart- regular rhythm; no murmur, no gallop. Abdomen- normal bowel sounds, soft, nontender, no distension. Extremities- left ankle medial side erythematous ad mild swelling and warm on palpation. Neuro- alert, oriented x 3; PERRL, no facial palsy; no dysarthria; moves extremities. Results & Data Results & Data Vital Signs (Past 12 Hours) Vital Signs Temp Pulse Pulse Resp BP Pulse Ox O2 Del Method 10/25/23 11:14 36.7 C 56 L 18 133/81 93 Room Air 10/25/23 08:00 64 10/25/23 07:17 36.5 C 60 19 121/70 93 Room Air 10/25/23 04:45 36.5 C 57 L 18 134/80 93 Room Air Laboratory Results Laboratory Results WBC 11.03 K/ul (4.8-10.8) H 10/25/23 07:30 RBC 4.53 M/uL (4.20-5.40) 10/25/23 07:30 Hgb 13.2 g/dl (12.0-16.0) 10/25/23 07:30 Hct 40.4 % (37.0-47.0) 10/25/23 07:30 MCV 89.2 fL (80.0-100.0) 10/25/23 07:30 MCH 29.1 pg (25.0-34.0) 10/25/23 07:30 MCHC 32.7 g/dL (32.0-36.0) 10/25/23 07:30 RDW Std Deviation 45.9 fL (36.4-46.3) 10/25/23 07:30 RDW Coeff of [place] 14.0 % (11.5-14.5) 10/25/23 07:30 Plt Count 318 K/uL (130-400) 10/25/23 07:30 MPV 10.6 fL (9.4-12.4) 10/25/23 07:30 Immature Gran % (Auto) 0.4 % 10/25/23 07:30 Neut % (Auto) 73.7 % 10/25/23 07:30 Lymph % (Auto) 12.2 % 10/25/23 07:30 [place] % (Auto) 10.3 % 10/25/23 07:30 Eos % (Auto) 3.0 % 10/25/23 07:30 Baso % (Auto) 0.4 % 10/25/23 07:30 Neut # (Auto) 8.13 K/uL (1.40-6.50) H 10/25/23 07:30 Lymph # (Auto) 1.35 K/uL (1.20-3.40) 10/25/23 07:30 [place] # (Auto) 1.14 K/uL (0.11-0.59) H 10/25/23 07:30 Eos # (Auto) 0.33 K/uL (0.00-0.50) 10/25/23 07:30 Baso # (Auto) 0.04 K/uL (0.00-0.20) 10/25/23 07:30 Immature Gran # (Auto) 0.04 K/uL (0.01-0.20) 10/25/23 07:30 Sodium 134 mmol/L (136-145) L 10/25/23 07:30 Potassium 3.9 mmol/L (3.5-5.1) D 10/25/23 07:30 Chloride 96 mmol/L (98-107) L 10/25/23 07:30 Carbon Dioxide 30 mmol/L (21-32) 10/25/23 07:30 Anion Gap 8 (3-11) 10/25/23 07:30 BUN 12 mg/dl (6-23) 10/25/23 07:30 Creatinine 0.56 mg/dl (0.6-1.2) L 10/25/23 07:30 Est Cr Clr Drug Dosing 71.7 ml/min 10/25/23 07:30 Est GFR ( Amer) 99.2 ml/min 10/25/23 07:30 Est GFR (Non-Af Amer) 85.6 ml/min 10/25/23 07:30 BUN/Creatinine Ratio 21.4 (10-20) H 10/25/23 07:30 Glucose 129 mg/dl (70-99(Fasting)) H 10/25/23 07:30 POC Glucose 107 mg/dl (70-99) H 10/25/23 11:10 Estimat Average Glucose 126 mg/dl 10/24/23 03:54 Hemoglobin A1c 6.0 % (4.5-5.6) H 10/24/23 03:54 Calcium 9.7 mg/dl (8.6-10.3) 10/25/23 07:30 Magnesium 1.9 mg/dl (1.7-2.4) 10/24/23 03:54 Total Bilirubin 0.4 mg/dl (0.2-1.0) 10/23/23 19: AST 11 U/L (13-39) L 10/23/23 19:27 ALT 8 U/L (7-52) 10/23/23 19:27 Alkaline Phosphatase 55 U/L (34-104) 10/23/23 19:27 Troponin I High Sens 10.4 pg/ml (0-14) 10/24/23 16:43 B-Natriuretic Peptide 262 pg/ml (0-100) H 10/23/23 19:27 Total Protein 6.4 gm/dl (6.0-8.3) 10/23/23 19:27 Albumin 3.7 gm/dl (3.4-5.0) 10/23/23 19:27 Globulin 2.7 gm/dl (2.5-4.0) 10/23/23 19: Albumin/Globulin Ratio 1.4 (0.9-2) 10/23/23 19:27 TSH 0.271 uIu/ml (0.300-4.500) L 10/23/23 19:27 Free T4 1.52 ng/dl (0.61-1.60) 10/23/23 19:27 Urine Color Yellow 10/23/23 Unknown Urine Appearance Turbid (Clear) A 10/23/23 Unknown Urine pH 7.5 (4.5-7.5) 10/23/23 Unknown Ur Specific [place] 1.013 (1.000-1.030) 10/23/23 Unknown Urine Protein Negative (Negative) 10/23/23 Unknown Urine Glucose (UA) Negative (Negative) 10/23/23 Unknown Urine Ketones Trace (Negative) H 10/23/23 Unknown Urine Blood 1+ (Negative) H 10/23/23 Unknown Urine Nitrite Negative (Negative) 10/23/23 Unknown Urine Bilirubin Negative (Negative) 10/23/23 Unknown Urine Urobilinogen Negative (Negative) 10/23/23 Unknown Ur Leukocyte Esterase Trace (Negative) H 10/23/23 Unknown Urine WBC (Auto) 1-5 /hpf (0-5) 10/23/23 Unknown Urine RBC (Auto) 5-10 /hpf (0-4) H 10/23/23 Unknown U Hyaline Cast (Auto) 0 /lpf (0-5) 10/23/23 Unknown U Epithel Cells (Auto) 5-10 /lpf (0-5) H 10/23/23 Unknown Urine Bacteria (Auto) 1+ (Negative) H 10/23/23 Unknown Urine Crystals Not Reportable 10/23/23 Unknown Amorphous Sediment Present (None Prsent) A 10/23/23 Unknown Urine Yeast Not Reportable 10/23/23 Unknown Impressions Ankle X-Ray 10/23/23 19:28 LEFT ANKLE 3 VIEWS HISTORY: Left ankle swelling COMPARISON: Left ankle 06/29/2017. FINDINGS: There is diffuse soft tissue swelling within the left ankle. No acute fracture or dislocation. Plate and screw fixation again noted at the first MTP joint. The hardware appears intact. Moderate degenerative changes at the tibiotalar joint. There is a plantar heel spur noted. Well-corticated ossific density at the medial malleolus is consistent with an old avulsion fracture. No radiopaque foreign bodies. IMPRESSION: Soft tissue swelling within the left ankle. No acute fracture or dislocation. ACT 112: Negative or not required by law. Electronically signed by: Charlie Atkinson M.D. 10/23/2023 7:59 PM Chest X-Ray 10/23/23 19:29 XR chest 1V portable HISTORY: Syncope. COMPARISON: Chest 08/22/2019. FINDINGS: No pneumothorax. No pleural effusions. No focal lung consolidations to suggest a pneumonia. No evidence for pulmonary edema. The cardiac silhouette remains top normal in size. There are mitral and is calcifications noted. No acute fractures identified. Degenerative changes within the shoulders. There is mild elevation of the right hemidiaphragm. IMPRESSION: No significant change compared to the prior study. No acute process. ACT 112: Negative or not required by law. Electronically signed by: Charlie Atkinson M.D. 10/23/2023 8:[address] 10/23/23 19:29 Exam(s): CT HEAD Without Contrast EXAM: CT Head Without Intravenous Contrast CLINICAL HISTORY: Fall. TECHNIQUE: Axial computed tomography images of the head/brain without intravenous contrast. Automated exposure control was utilized for the study. A dose lowering technique was utilized adhering to the principles of ALARA. COMPARISON: No relevant prior studies available. FINDINGS: Brain: No intracranial hemorrhage, mass-effect or midline shift. No abnormal extra axial fluid. No evidence of acute infarct. Mild periventricular white matter hypodensities are most consistent with chronic microangiopathy. Ventricles: Unremarkable. No ventriculomegaly. Bones/joints: Unremarkable. No acute fracture. Soft tissues: Unremarkable. Sinuses: Unremarkable as visualized. No acute sinusitis. Mastoid air cells: Unremarkable as visualized. No mastoid effusion. IMPRESSION: No acute intracranial finding. Electronically signed by: Jackeline Cintron MD 10/23/23 21:20 PM Venous Doppler Study 10/23/23 20:16 Exam(s): US VENOUS LEFT LOWER EXTREMITY EXAM: US Duplex Left Lower Extremity Veins CLINICAL HISTORY: Swelling. TECHNIQUE: Real-time duplex ultrasound scan of the left lower extremity veins integrating B-mode two-dimensional vascular structure, Doppler spectral analysis, color flow Doppler imaging and compression. COMPARISON: No relevant prior studies available. FINDINGS: Deep veins: Unremarkable. No DVT in the visualized common femoral, femoral, proximal deep femoral or popliteal veins. The veins demonstrate normal color flow, are normally compressible, with normal phasic flow and/or augmentation response. Superficial veins: Unremarkable. No thrombus in the visualized great saphenous vein. Soft tissues: Nonspecific soft tissue swelling of the calf. No popliteal cyst. IMPRESSION: 1. No deep vein thrombosis of the left lower extremity. 2. Nonspecific soft tissue swelling of the calf. Electronically signed by: Jackeline Cintron MD 10/23/23 21:39 PM
--- NOTE | 2023-10-25 14:53 | Cardiology Progress Note ---
Date of Service October 25, 2023 Assessment & Plan (1) Syncope and collapse: (2) HTN (hypertension): (3) Hypokalemia: (4) CAD (coronary artery disease): Plan 83-year-old female admitted with syncope. Suspect vasovagal etiology given longstanding history. ECG, telemetry unremarkable since admission. Resting 2D transthoracic echocardiogram demonstrates preserved LV systolic function with mild mitral regurgitation. Blood pressure improved since admission. Continue outpatient medications including metoprolol, losartan, and chlorthalidone. Treatment of ankle sprain and possible UTI as per primary service. No further inpatient cardiac testing or intervention recommended at this time. Cardiology will sign off. Please call with questions. Admission and Anticipated Discharge Date Admission Date: October 24, 2023 Subjective Patient seen examined at the bedside. No arrhythmia on telemetry demonstrating sinus rhythm in the 50s-60s. Blood pressure control improved today. Denies chest pain or shortness of breath. No lightheadedness or dizziness. Review of Systems Review of Systems: All systems reviewed & are unremarkable except as noted in Subjective Physical Exam Constitutional: well nourished; no acute distress Respiratory: no respiratory distress, no labored breathing and no retractions Auscultation: no crackles, no rales, no rhonchi and no wheezes Cardiovascular: Rate/Rhythm: regular rate and regular rhythm Heart Sounds: normal S1 and normal S2; no murmur Vessels: radial pulses present; no JVD and no carotid bruit Extremities: no edema Gastrointestinal (Abdomen): Inspection/Auscultation: normal bowel sounds; abdomen not distended Percussion/Palpation: abdomen soft; abdomen nontender, no guarding and abdomen not rigid Neurologic: CN's II-XI intact bilaterally and moves all extremities; no focal motor deficits Results & Data Vital Signs (Past 12 Hours) Vital Signs Temp Pulse Pulse Resp BP Pulse Ox O2 Del Method 10/25/23 11:14 36.7 C 56 L 18 133/81 93 Room Air 10/25/23 08:00 64 10/25/23 07:17 36.5 C 60 19 121/70 93 Room Air 10/25/23 04:45 36.5 C 57 L 18 134/80 93 Room Air Laboratory Results Cardiac Enzymes 10/24/23 Range/Units 16:43 Troponin I High Sens 10.4 (0-14) pg/ml CBC 10/25/23 Range/Units 07:30 WBC 11.03 H (4.8-10.8) K/ul RBC 4.53 (4.20-5.40) M/uL Hgb 13.2 (12.0-16.0) g/dl Hct 40.4 (37.0-47.0) % Plt Count 318 (130-400) K/uL Neut # (Auto) 8.13 H (1.40-6.50) K/uL Lymph # (Auto) 1.35 (1.20-3.40) K/uL [place] # (Auto) 1.14 H (0.11-0.59) K/uL Eos # (Auto) 0.33 (0.00-0.50) K/uL Baso # (Auto) 0.04 (0.00-0.20) K/uL Comprehensive Metabolic Panel 10/25/23 Range/Units 07:30 Sodium 134 L (136-145) mmol/L Potassium 3.9 D (3.5-5.1) mmol/L Chloride 96 L (98-107) mmol/L Carbon Dioxide 30 (21-32) mmol/L BUN 12 (6-23) mg/dl Creatinine 0.56 L (0.6-1.2) mg/dl Glucose 129 H (70-99(Fasting)) mg/dl Calcium 9.7 (8.6-10.3) mg/dl Intake and Output 10/24/23 10/25/23 10/25/23 22:59 06:59 14:59 Intake Total 60 / 889 650 / 650 Output Total 800 / 1999 1250 / 1250 Balance -740 / -1111 -600 / -600 Intake: IV 50 / 50 cefTRIAXone SODIUM 2,000 mg In 50 / 50 Dextrose 5 % Mini-B 50 ml @ 100 mls/hr IV Q24H [facility] Rx#: [id number] Oral 60 / 300 600 / 600 Output: Urine 500 / 500 Urine Amount (Catheter) 800 / 800 750 / 750 External 800 / 800 750 / 750 Other: # Unmeasured Voids 1 Weight 76.7 kg Weight Measurement Method Built in [facility] (2) HTN (hypertension) Hypertension type: primary hypertension Qualified Code(s): I10 - Essential (primary) hypertension (4) CAD (coronary artery disease) Coronary Disease-Associated Artery/Lesion type: [place] artery [place] vs. transplanted heart: [place] heart Associated angina: without angina Qualified Code(s): I25.10 - Atherosclerotic heart disease of [place] coronary artery without angina pectoris
--- NOTE | 2023-10-25 16:37 | CT Scan Report ---
CT SCAN OF THE LEFT ANKLE WITH IV CONTRAST CLINICAL HISTORY: Left ankle pain. Effusion. COMPARISON STUDY: Radiographs of the left ankle dated 10/23/2023. TECHNIQUE: CT scan of the left ankle was performed from the distal tibia and fibula to the foot follo wing the IV administration of 90 mL of Optiray 320. Images were reviewed in the axial, sagittal, and coronal planes. IV contrast was administered without application. A dose lowering technique was utili zed adhering to the principles of ALARA. CT DOSE: 463.49 mGy.cm FINDINGS: The skeletal structures are heterogeneously osteopenic. No acute fracture is seen. There is no bony erosion or periostitis. The ankle mortise is intact. No osteochondral defect is suggested in the talar dome. Mild arthritic change is seen at the tibiotalar articulation. Postoperative change i s partially visualized in the first metatarsal. There are large dorsal and plantar heel spurs. Mild-t o-moderate osteoarthritic change is noted throughout the midfoot. There is no widening between the ba se of the first and second metatarsals or also the second tarsometatarsal joint to suggest Lisfranc t ype injury. The Achilles tendon is intact as visualized by CT. No significant ankle joint effusion is identified. Calcified joint bodies are suggested posteriorly. Soft tissue edema is noted in the hind foot and midfoot, greatest laterally. There is generalized atrophy of the regional musculature. There are calcification along the course of the tibialis posterior tendon and the peroneal tendons, likely representing tendinopathy/tenosynovitis. IMPRESSION: 1. No acute bony abnormality is identified. 2. Calcified joint bodies are suggestive of the ankle joint. No significant joint effusion is identif ied. 3. Calcification along the course of the tibialis posterior and peroneal tendons likely represents te ndinopathy/tenosynovitis. 4. Degenerative change in heel spurs as above. 5. Soft tissue edema in the lateral hindfoot/midfoot. ACT 112: Negative or not required by law. Dictated: 10/25/2023 3:34 PM Transcribed: 10/25/2023 3:48 PM Raghavendra [id number] [email or web address] Electronically signed by: Mark Solano M.D. 10/25/2023 4:36 PM
--- NOTE | 2023-10-25 17:38 | Electrocardiogram Report ---
Test Reason : Blood Pressure : / mmHG Vent. Rate : 061 BPM Atrial Rate : 061 BPM P-R Int : 192 ms QRS Dur : 094 ms QT Int : 434 ms P-R-T Axes : 060 -18 043 degrees QTc Int : 436 ms Normal sinus rhythm Normal ECG When compared with ECG of 23-OCT-2023 19:20, (unconfirmed) No significant change was found Confirmed by Goyo Julian ([id number]) on 10/25/2023 5:38:09 PM Referred By: REFERRED SELF Confirmed By:Vasu Julian
--- NOTE | 2023-10-25 19:33 | Electrocardiogram Report ---
Test Reason : Blood Pressure : / mmHG Vent. Rate : 064 BPM Atrial Rate : 064 BPM P-R Int : 170 ms QRS Dur : 092 ms QT Int : 426 ms P-R-T Axes : 042 -24 025 degrees QTc Int : 439 ms Normal sinus rhythm Normal ECG When compared with ECG of 24-OCT-2023 12:06, (unconfirmed) No significant change was found Confirmed by Goyo Julian ([id number]) on 10/25/2023 7:32:45 PM Referred By: REFERRED SELF Confirmed By:Vasu Julian
--- NOTE | 2023-10-25 19:39 | Electrocardiogram Report ---
Test Reason : Blood Pressure : / mmHG Vent. Rate : 089 BPM Atrial Rate : 089 BPM P-R Int : 174 ms QRS Dur : 084 ms QT Int : 364 ms P-R-T Axes : 068 -33 051 degrees QTc Int : 442 ms Normal sinus rhythm Left axis deviation Abnormal ECG When compared with ECG of 24-AUG-2019 06:17, No significant change was found Confirmed by Goyo Julian ([id number]) on 10/25/2023 7:39:01 PM Referred By: REFERRED SELF Confirmed By:Vasu Julian
[2023-10-25] MEDS: AZELASTINE HCL 0.1% NASAL 200 SPRAYS/27,400 MCG BTL SCH (19:57)
[2023-10-25] MEDS: BIMATOPROST 0.01% OP SOLN 2.5 ML BTL OPB SCH (19:58)
[2023-10-25] MEDS: ASPIRIN 81 MG ECTAB PO SCH (19:59)
[2023-10-25] MEDS: ATORVASTATIN 20 MG TAB PO SCH (19:59)
[2023-10-25] MEDS: CYANOCOBALAMIN (B-12) 500 MCG TABLET PO SCH (19:59)
[2023-10-25] MEDS: MONTELUKAST SODIUM 10 MG TABLET PO SCH (20:00)
[2023-10-25] MEDS: MAGNESIUM OXIDE 400 MG TAB PO SCH (20:00)
[2023-10-25] MEDS: ZINC SULFATE 220 MG CAPSULE PO SCH (20:01)
[2023-10-26] MEDS: LEVOTHYROXINE SODIUM 88 MCG TABLET PO SCH (06:02)
[2023-10-26] MEDS: INSULIN ASPART PER UNIT CHARGE SC SCH ×4 (08:21→20:15)
[2023-10-26] MEDS: cefTRIAXone SODIUM 2,000 MG in DEXTROSE 5 % MINI-B 50 ML IV SCH (08:21)
[2023-10-26] MEDS: CHOLECALCIFEROL 1,000 UNITS 25 MCG TAB PO SCH (08:22)
[2023-10-26] MEDS: NIFEdipine EXTENDED REL 30 MG TABCR PO SCH (08:22)
[2023-10-26] MEDS: LOSARTAN POTASSIUM 50 MG TAB PO SCH (08:22)
[2023-10-26] MEDS: PANTOprazole 40 MG TAB PO SCH (08:23)
[2023-10-26] MEDS: VENLAFAXINE HCL XR 37.5 MG CAPXR PO SCH (08:23)
[2023-10-26] MEDS: CHLORTHALIDONE 25 MG TAB PO SCH (08:23)
[2023-10-26] MEDS: OXYBUTYNIN CHLORIDE XL 5 MG TABCR PO SCH (08:23)
[2023-10-26] MEDS: ASCORBIC ACID 500 MG TAB PO SCH (08:24)
[2023-10-26] MEDS: FERROUS SULFATE 325 MG TAB PO SCH ×2 (08:24→20:20)
[2023-10-26] MEDS: FLUTICASONE/VILANTEROL 200/25MCG 14 PUFFS/INHALER INH SCH (08:24)
[2023-10-26] MEDS: CeleBREX 200 MG CAP PO SCH (08:24)
[2023-10-26] MEDS: METOPROLOL TARTRATE 25 MG TAB PO SCH ×2 (08:24→20:12)
[2023-10-26] MEDS: MULTIVITAMIN TAB PO SCH (08:24)
[2023-10-26] MEDS: ENOXAPARIN INJ 40 MG/0.4 ML SYR SQ SCH (08:25)
[2023-10-26] MEDS: FLUTICASONE PROPIONATE NA SPR 16 GM BTL SCH (08:26)
[2023-10-26] MEDS: NYSTATIN CR 15 GM TUBE EXT SCH ×3 (08:26→20:14)
[2023-10-26] MEDS: TRIAMCINOLONE ACET 0.1% CR 15 GM TUBE TOP SCH ×2 (08:26→20:15)
[2023-10-26] MEDS: POTASSIUM CHLORIDE CRTAB 20 MEQ TABCR PO SCH ×2 (08:29→20:18)
[2023-10-26 08:59] LABS: BUN Creatinine Ratio 26.9 (10-20); Creatinine Clr Calc Pharmacy 78.8 ml/min; Est GFR (African American) 101.7 ml/min; Est GFR (Non-African American) 87.7 ml/min; Potassium 3.5 mmol/L (3.5-5.1); Uric Acid 3.1 mg/dl (2.6-7.2)
[2023-10-26] MEDS ORDERED: COLCHICINE 0.6 MG TAB PO SCH (09:00)
[2023-10-26 09:02] LABS: Basophils # (auto) 0.03 K/uL (0.00-0.20); Basophils % (auto) 0.3 %; Eosinophils % (auto) 4.3 %; Hemoglobin 12.6 g/dl (12.0-16.0); Immature Granulocytes # (auto) 0.04 K/uL (0.01-0.20); Immature Granulocytes % (auto) 0.4 %; Lymphocytes # (auto) 1.63 K/uL (1.20-3.40); Lymphocytes % (auto) 17.3 %; Mean Corpuscular Hemoglobin 29.1 pg (25.0-34.0); Mean Corpuscular Hgb Conc 34.1 g/dL (32.0-36.0); Mean Corpuscular Volume 85.5 fL (80.0-100.0); Mean Platelet Volume 10.7 fL (9.4-12.4); Monocytes # (auto) 0.98 K/uL (0.11-0.59); Monocytes % (auto) 10.4 %; Neutrophils # (auto) 6.32 K/uL (1.40-6.50); Neutrophils % (auto) 67.3 %; Platelet Count 345 K/uL (130-400); RDW Coefficient of Variation 13.8 % (11.5-14.5); RDW Standard Deviation 43.4 fL (36.4-46.3); Red Blood Count 4.33 M/uL (4.20-5.40)
--- NOTE | 2023-10-26 14:14 | Hospitalist Progress Note ---
Date of Service October 26, 2023 Assessment & Plan (1) Syncope and collapse: Plan: 83-year-old female with past med history significant for type 2 diabetes, hypothyroidism, hyperlipidemia, obstructive sleep apnea, mild persistent asthma, paroxysmal atrial fibrillation, hypertension, history of CAD, GERD, primary open-angle glaucoma, depression, presents with mechanical fall and left ankle pain. Mechanical fall Possible syncopal Patient presented to the ED after she fell down while walking with a walker in the hallways of her home. CT head without contrast reviewed personally; no acute finding EKG on admission personally reviewed; normal sinus rhythm; no ST or T wave changes Echocardiogram shows EF of 65 to 70% with grade 2 diastolic dysfunction. Severe mitral annular calcification. Cardiology was consulted as well. Continue to monitor on telemetry. PT OT evaluation done; recommend rehab Left ankle pain (likely sprain) Patient complains of 5 days of ankle pain; no trauma X-ray left ankleno fracture or dislocation Orthopedic consulted; recommend short-term Celebrex for at least 5 to 7 days. Recommend rest, ice, anti-inflammatory. Uric acid within normal limits. Initially started on colchicine. However, features are more suggestive of sprain. Ankle CT was done; no acute bony abnormality. Possible tendinopathy/tenosynovitis along tibialis posterior tendon peroneal tendons. Orthotics consulted for CAM boot. Hypertensive urgency On chlorthalidone, losartan and metoprolol at home Chlorthalidone on hold due to hyponatremia. Added nifedipine 60 mg Blood pressure well controlled. Possible UTI, rule out Urine culturemore than 3 bacteria Repeat culture did not show any growth Antibiotic discontinued Obstructive sleep apnea CPAP nightly Type II diabetes Hold metformin Insulin sliding scale A1c of 6.0% Mild persistent asthma Currently stable Continue home inhalers Paroxysmal atrial fibrillation Seems 1 episode in 2011 On aspirin and beta-monico Depression On venlafaxine History of CAD S/p stent in 1999 On aspirin statin and beta-monico Hypothyroidism TSH 0.27, free T4- 1.52. Will decrease levothyroxine to 88 mcg from 100 mcg Primary open-angle glaucoma Continue home eyedrops DVT prophylaxis Lovenox Disposition Patient admitted for left ankle sprain. PT OT recommends rehab/mechanical fall. Case management on board; appreciate assistance with placement. Full code Time spent evaluating patient, direct bedside care, chart review, placing orders, interpretation of diagnostic studies, discussion with consultants, patient, and family members, as well as other required patient management activities is 50 minutes Please note the above document was generated using voice recognition software. It may contain grammatical, syntax or spelling errors. Any formal questions or concerns about the content, text or information contained within the body of this dictation should be directly addressed to the provider for clarification Admission and Anticipated Discharge Date Admission Date: October 24, 2023 Subjective Patient seen and examined at bedside. She reports that her left ankle is feeling better today. She has not been out of the bed but is looking forward to working with PT and OT. Review of Systems Review of Systems: All systems reviewed & are unremarkable except as noted in Subjective Physical Exam Physical Exam: General- Not in distress. Head- atraumatic Eyes- PERRL. ENT- oropharynx clear Neck- supple, no JVD Lungs- clear to auscultation no wheezing or crackles. Heart- regular rhythm; no murmur, no gallop. Abdomen- normal bowel sounds, soft, nontender, no distension. Extremities-left ankle medial side with swelling. Neuro- alert, oriented x 3; PERRL, no facial palsy; no dysarthria; moves extremities. Results & Data Results & Data Vital Signs (Past 12 Hours) Vital Signs Temp Pulse Pulse Resp BP Pulse Ox O2 Del Method 10/26/23 11:10 36.8 C 60 18 128/71 97 Room Air 10/26/23 08:00 65 10/26/23 07:12 36.8 C 66 18 169/72 H 94 Room Air 10/26/23 07:00 O2 Del Method 10/26/23 11:10 10/26/23 08:00 10/26/23 07:12 10/26/23 07:00 Room Air Laboratory Results Laboratory Results WBC 9.40 K/ul (4.8-10.8) 10/26/23 07:21 RBC 4.33 M/uL (4.20-5.40) 10/26/23 07:21 Hgb 12.6 g/dl (12.0-16.0) 10/26/23 07:21 Hct 37.0 % (37.0-47.0) 10/26/23 07:21 MCV 85.5 fL (80.0-100.0) 10/26/23 07:21 MCH 29.1 pg (25.0-34.0) 10/26/23 07:21 MCHC 34.1 g/dL (32.0-36.0) 10/26/23 07:21 RDW Std Deviation 43.4 fL (36.4-46.3) 10/26/23 07:21 RDW Coeff of Stoney 13.8 % (11.5-14.5) 10/26/23 07:21 Plt Count 345 K/uL (130-400) 10/26/23 07:21 MPV 10.7 fL (9.4-12.4) 10/26/23 07:21 Immature Gran % (Auto) 0.4 % 10/26/23 07:21 Neut % (Auto) 67.3 % 10/26/23 07:21 Lymph % (Auto) 17.3 % 10/26/23 07:21 Reeves % (Auto) 10.4 % 10/26/23 07:21 Eos % (Auto) 4.3 % 10/26/23 07:21 Baso % (Auto) 0.3 % 10/26/23 07:21 Neut # (Auto) 6.32 K/uL (1.40-6.50) 10/26/23 07:21 Lymph # (Auto) 1.63 K/uL (1.20-3.40) 10/26/23 07:21 Reeves # (Auto) 0.98 K/uL (0.11-0.59) H 10/26/23 07:21 Eos # (Auto) 0.40 K/uL (0.00-0.50) 10/26/23 07:21 Baso # (Auto) 0.03 K/uL (0.00-0.20) 10/26/23 07:21 Immature Gran # (Auto) 0.04 K/uL (0.01-0.20) 10/26/23 07:21 Sodium 131 mmol/L (136-145) L 10/26/23 07:21 Potassium 3.5 mmol/L (3.5-5.1) 10/26/23 07:21 Chloride 96 mmol/L (98-107) L 10/26/23 07:21 Carbon Dioxide 28 mmol/L (21-32) 10/26/23 07:21 Anion Gap 7 (3-11) 10/26/23 07:21 BUN 14 mg/dl (6-23) 10/26/23 07:21 Creatinine 0.52 mg/dl (0.6-1.2) L 10/26/23 07:21 Est Cr Clr Drug Dosing 78.8 ml/min 10/26/23 07:21 Est GFR ( Amer) 101.7 ml/min 10/26/23 07:21 Est GFR (Non-Af Amer) 87.7 ml/min 10/26/23 07:21 BUN/Creatinine Ratio 26.9 (10-20) H 10/26/23 07:21 Glucose 129 mg/dl (70-99(Fasting)) H 10/26/23 07:21 POC Glucose 117 mg/dl (70-99) H 10/26/23 11:08 Estimat Average Glucose 126 mg/dl 10/24/23 03:54 Hemoglobin A1c 6.0 % (4.5-5.6) H 10/24/23 03:54 Uric Acid 3.1 mg/dl (2.6-7.2) 10/26/23 07:21 Calcium 9.0 mg/dl (8.6-10.3) 10/26/23 07:21 Magnesium 1.9 mg/dl (1.7-2.4) 10/24/23 03:54 Total Bilirubin 0.4 mg/dl (0.2-1.0) 10/23/23 19:27 AST 11 U/L (13-39) L 10/23/23 19:27 ALT 8 U/L (7-52) 10/23/23 19:27 Alkaline Phosphatase 55 U/L (34-104) 10/23/23 19:27 Troponin I High Sens 10.4 pg/ml (0-14) 10/24/23 16:43 B-Natriuretic Peptide 262 pg/ml (0-100) H 10/23/23 19:27 Total Protein 6.4 gm/dl (6.0-8.3) 10/23/23 19:27 Albumin 3.7 gm/dl (3.4-5.0) 10/23/23 19:27 Globulin 2.7 gm/dl (2.5-4.0) 10/23/23 19:27 Albumin/Globulin Ratio 1.4 (0.9-2) 10/23/23 19:27 TSH 0.271 uIu/ml (0.300-4.500) L 10/23/23 19:27 Free T4 1.52 ng/dl (0.61-1.60) 10/23/23 19:27 Urine Color Yellow 10/23/23 Unknown Urine Appearance Turbid (Clear) A 10/23/23 Unknown Urine pH 7.5 (4.5-7.5) 10/23/23 Unknown Ur Specific [place] 1.013 (1.000-1.030) 10/23/23 Unknown Urine Protein Negative (Negative) 10/23/23 Unknown Urine Glucose (UA) Negative (Negative) 10/23/23 Unknown Urine Ketones Trace (Negative) H 10/23/23 Unknown Urine Blood 1+ (Negative) H 10/23/23 Unknown Urine Nitrite Negative (Negative) 10/23/23 Unknown Urine Bilirubin Negative (Negative) 10/23/23 Unknown Urine Urobilinogen Negative (Negative) 10/23/23 Unknown Ur Leukocyte Esterase Trace (Negative) H 10/23/23 Unknown Urine WBC (Auto) 1-5 /hpf (0-5) 10/23/23 Unknown Urine RBC (Auto) 5-10 /hpf (0-4) H 10/23/23 Unknown U Hyaline Cast (Auto) 0 /lpf (0-5) 10/23/23 Unknown U Epithel Cells (Auto) 5-10 /lpf (0-5) H 10/23/23 Unknown Urine Bacteria (Auto) 1+ (Negative) H 10/23/23 Unknown Urine Crystals Not Reportable 10/23/23 Unknown Amorphous Sediment Present (None Prsent) A 10/23/23 Unknown Urine Yeast Not Reportable 10/23/23 Unknown Impressions Ankle X-Ray 10/23/23 19:28 LEFT ANKLE 3 VIEWS HISTORY: Left ankle swelling COMPARISON: Left ankle 06/29/2017. FINDINGS: There is diffuse soft tissue swelling within the left ankle. No acute fracture or dislocation. Plate and screw fixation again noted at the first MTP joint. The hardware appears intact. Moderate degenerative changes at the tibiotalar joint. There is a plantar heel spur noted. Well-corticated ossific density at the medial malleolus is consistent with an old avulsion fracture. No radiopaque foreign bodies. IMPRESSION: Soft tissue swelling within the left ankle. No acute fracture or dislocation. ACT 112: Negative or not required by law. Electronically signed by: Charlie Atkinson M.D. 10/23/2023 7:59 PM Chest X-Ray 10/23/23 19:29 XR chest 1V portable HISTORY: Syncope. COMPARISON: Chest 08/22/2019. FINDINGS: No pneumothorax. No pleural effusions. No focal lung consolidations to suggest a pneumonia. No evidence for pulmonary edema. The cardiac silhouette remains top normal in size. There are mitral and is calcifications noted. No acu te fractures identified. Degenerative changes within the shoulders. There is mild elevation of the right hemidiaphragm. IMPRESSION: No significant change compared to the prior study. No acute process. ACT 112: Negative or not required by law. Electronically signed by: Charlie Atkinson M.D. 10/23/2023 8:[address] 10/23/23 19:29 Exam(s): CT HEAD Without Contrast EXAM: CT Head Without Intravenous Contrast CLINICAL HISTORY: Fall. TECHNIQUE: Axial computed tomography images of the head/brain without intravenous contrast. Automated exposure control was utilized for the study. A dose lowering technique was utilized adhering to the principles of ALARA. COMPARISON: No relevant prior studies available. FINDINGS: Brain: No intracranial hemorrhage, mass-effect or midline shift. No abnormal extra axial fluid. No evidence of acute infarct. Mild periventricular white matter hypodensities are most consistent with chronic microangiopathy. Ventricles: Unremarkable. No ventriculomegaly. Bones/joints: Unremarkable. No acute fracture. Soft tissues: Unremarkable. Sinuses: Unremarkable as visualized. No acute sinusitis. Mastoid air cells: Unremarkable as visualized. No mastoid effusion. IMPRESSION: No acute intracranial finding. Electronically signed by: Jackeline Cintron MD 10/23/23 21:20 PM Venous Doppler Study 10/23/23 20:16 Exam(s): US VENOUS LEFT LOWER EXTREMITY EXAM: US Duplex Left Lower Extremity Veins CLINICAL HISTORY: Swelling. TECHNIQUE: Real-time duplex ultrasound scan of the left lower extremity veins integrating B-mode two-dimensional vascular structure, Doppler spectral analysis, color flow Doppler imaging and compression. COMPARISON: No relevant prior studies available. FINDINGS: Deep veins: Unremarkable. No DVT in the visualized common femoral, femoral, proximal deep femoral or popliteal veins. The veins demonstrate normal color flow, are normally compressible, with normal phasic flow and/or augmentation response. Superficial veins: Unremarkable. No thrombus in the visualized great saphenous vein. Soft tissues: Nonspecific soft tissue swelling of the calf. No popliteal cyst. IMPRESSION: 1. No deep vein thrombosis of the left lower extremity. 2. Nonspecific soft tissue swelling of the calf. Electronically signed by: Jackeline Cintron MD 10/23/23 21:[address] 10/25/23 11:39 CT SCAN OF THE LEFT ANKLE WITH IV CONTRAST CLINICAL HISTORY: Left ankle pain. Effusion. COMPARISON STUDY: Radiographs of the left ankle dated 10/23/2023. TECHNIQUE: CT scan of the left ankle was performed from the distal tibia and fibula to the foot following the IV administration of 90 mL of Optiray 320. Images were reviewed in the axial, sagittal, and coronal planes. IV contrast was administered without application. A dose lowering technique was utilized adhering to the principles of ALARA. CT DOSE: 463.49 mGy.cm FINDINGS: The skeletal structures are heterogeneously osteopenic. No acute fracture is seen. There is no bony erosion or periostitis. The ankle mortise is intact. No osteochondral defect is suggested in the talar dome. Mild arthritic change is seen at the tibiotalar articulation. Postoperative change is partially visualized in the first metatarsal. There are large dorsal and plantar heel spurs. Eazn-if-puwzvlli osteoarthritic change is noted throughout the midfoot. There is no widening between the base of the first and second metatarsals or also the second tarsometatarsal joint to suggest Lisfranc type injury. The Achilles tendon is intact as visualized by CT. No significant ankle joint effusion is identified. Calcified joint bodies are suggested posteriorly. Soft tissue edema is noted in the hindfoot and midfoot, greatest laterally. There is generalized atrophy of the regional musculature. There are calcification along the course of the tibialis posterior tendon and the peroneal tendons, likely representing tendinopathy/tenosynovitis. IMPRESSION: 1. No acute bony abnormality is identified. 2. Calcified joint bodies are suggestive of the ankle joint. No significant joint effusion is identified. 3. Calcification along the course of the tibialis posterior and peroneal tendons likely represents tendinopathy/tenosynovitis. 4. Degenerative change in heel spurs as above. 5. Soft tissue edema in the lateral hindfoot/midfoot. ACT 112: Negative or not required by law. Dictated: 10/25/2023 3:34 PM Transcribed: 10/25/2023 3:48 PM Raghavendra [id number] [email or web address] Electronically signed by: Mark Solano M.D. 10/25/2023 4:36 PM
--- NOTE | 2023-10-26 14:14 | Electrocardiogram Report ---
Test Reason : Blood Pressure : / mmHG Vent. Rate : 065 BPM Atrial Rate : 065 BPM P-R Int : 192 ms QRS Dur : 094 ms QT Int : 422 ms P-R-T Axes : 072 -19 041 degrees QTc Int : 438 ms Normal sinus rhythm Normal ECG When compared with ECG of 25-OCT-2023 05:34, No significant change was found Confirmed by Goyo Julian ([id number]) on 10/26/2023 2:13:46 PM Referred By: REFERRED SELF Confirmed By:Vasu Julian
[2023-10-26] MEDS: ACETAMINOPHEN 325 MG TAB PO PRN (17:01)
[2023-10-26] MEDS: MoRPHine SULFATE 2 MG/ML CARP IV PRN (17:56)
[2023-10-26] MEDS: MAGNESIUM OXIDE 400 MG TAB PO SCH (20:12)
[2023-10-26] MEDS: AZELASTINE HCL 0.1% NASAL 200 SPRAYS/27,400 MCG BTL SCH (20:12)
[2023-10-26] MEDS: MONTELUKAST SODIUM 10 MG TABLET PO SCH (20:13)
[2023-10-26] MEDS: ZINC SULFATE 220 MG CAPSULE PO SCH (20:13)
[2023-10-26] MEDS: ASPIRIN 81 MG ECTAB PO SCH (20:13)
[2023-10-26] MEDS: CYANOCOBALAMIN (B-12) 500 MCG TABLET PO SCH (20:13)
[2023-10-26] MEDS: ATORVASTATIN 20 MG TAB PO SCH (20:13)
[2023-10-26] MEDS: BIMATOPROST 0.01% OP SOLN 2.5 ML BTL OPB SCH (20:14)
[2023-10-27 07:03] LABS: Basophils # (auto) 0.04 K/uL (0.00-0.20); Basophils % (auto) 0.6 %; Eosinophils # (auto) 0.43 K/uL (0.00-0.50); Eosinophils % (auto) 6.2 %; Hematocrit (blood only) 38.8 % (37.0-47.0); Hemoglobin 12.9 g/dl (12.0-16.0); Immature Granulocytes # (auto) 0.04 K/uL (0.01-0.20); Immature Granulocytes % (auto) 0.6 %; Lymphocytes # (auto) 1.56 K/uL (1.20-3.40); Lymphocytes % (auto) 22.3 %; Mean Corpuscular Hemoglobin 29.3 pg (25.0-34.0); Mean Corpuscular Hgb Conc 33.2 g/dL (32.0-36.0); Mean Platelet Volume 10.2 fL (9.4-12.4); Monocytes # (auto) 0.85 K/uL (0.11-0.59); Monocytes % (auto) 12.2 %; Neutrophils # (auto) 4.07 K/uL (1.40-6.50); Neutrophils % (auto) 58.1 %; Platelet Count 339 K/uL (130-400); RDW Coefficient of Variation 13.7 % (11.5-14.5); RDW Standard Deviation 44.7 fL (36.4-46.3); Red Blood Count 4.41 M/uL (4.20-5.40); White Blood Count 6.99 K/ul (4.8-10.8)
[2023-10-27 07:25] LABS: BUN Creatinine Ratio 28.6 (10-20); Calcium 9.2 mg/dl (8.6-10.3); Creatinine Clr Calc Pharmacy 63.7 ml/min; Est GFR (African American) 95.5 ml/min; Est GFR (Non-African American) 82.4 ml/min; Potassium 4.2 mmol/L (3.5-5.1)
[2023-10-27] MEDS: FLUTICASONE/VILANTEROL 200/25MCG 14 PUFFS/INHALER INH SCH (07:54)
[2023-10-27] MEDS: ENOXAPARIN INJ 40 MG/0.4 ML SYR SQ SCH (07:55)
[2023-10-27] MEDS: CHOLECALCIFEROL 1,000 UNITS 25 MCG TAB PO SCH (07:55)
[2023-10-27] MEDS: VENLAFAXINE HCL XR 37.5 MG CAPXR PO SCH (07:55)
[2023-10-27] MEDS: NIFEdipine EXTENDED REL 30 MG TABCR PO SCH (07:56)
[2023-10-27] MEDS: LOSARTAN POTASSIUM 50 MG TAB PO SCH (07:56)
[2023-10-27] MEDS: PANTOprazole 40 MG TAB PO SCH (07:56)
[2023-10-27] MEDS: MULTIVITAMIN TAB PO SCH (07:56)
[2023-10-27] MEDS: METOPROLOL TARTRATE 25 MG TAB PO SCH ×2 (07:57→21:09)
[2023-10-27] MEDS: CeleBREX 200 MG CAP PO SCH (07:57)
[2023-10-27] MEDS: OXYBUTYNIN CHLORIDE XL 5 MG TABCR PO SCH (07:57)
[2023-10-27] MEDS: FERROUS SULFATE 325 MG TAB PO SCH (07:58)
[2023-10-27] MEDS: FLUTICASONE PROPIONATE NA SPR 16 GM BTL SCH (07:58)
[2023-10-27] MEDS: NYSTATIN CR 15 GM TUBE EXT SCH ×3 (07:59→21:11)
[2023-10-27] MEDS: TRIAMCINOLONE ACET 0.1% CR 15 GM TUBE TOP SCH ×2 (07:59→21:14)
[2023-10-27] MEDS: INSULIN ASPART PER UNIT CHARGE SC SCH ×4 (08:04→20:26)
[2023-10-27] MEDS: POTASSIUM CHLORIDE CRTAB 20 MEQ TABCR PO SCH ×2 (08:09→21:15)
[2023-10-27] MEDS: ASCORBIC ACID 500 MG TAB PO SCH (08:09)
[2023-10-27] MEDS: LEVOTHYROXINE SODIUM 88 MCG TABLET PO SCH (16:55)
--- NOTE | 2023-10-27 17:37 | Hospitalist Progress Note ---
Date of Service October 27, 2023 Assessment & Plan (1) Syncope and collapse: Plan: 83-year-old female with past med history significant for type 2 diabetes, hypothyroidism, hyperlipidemia, obstructive sleep apnea, mild persistent asthma, paroxysmal atrial fibrillation, hypertension, history of CAD, GERD, primary open-angle glaucoma, depression, presents with mechanical fall and left ankle pain. Mechanical fall Possible syncopal Patient presented to the ED after she fell down while walking with a walker in the hallways of her home. CT head without, no acute finding EKG on admission personally reviewed; normal sinus rhythm; no ST or T wave changes Echocardiogram shows EF of 65 to 70% with grade 2 diastolic dysfunction. Severe mitral annular calcification. Cardiology consulted Syncopal event likely vasovagal as patient was having severe ankle pain and was feeling faint prior to LOC DC telemetry PT OT evaluation done; recommend rehab Left ankle pain (likely sprain) Patient complains of 5 days of ankle pain; no trauma X-ray left ankleno fracture or dislocation Orthopedic consulted; recommend short-term Celebrex for at least 5 to 7 days. Recommend rest, ice, anti-inflammatory. Uric acid within normal limits. Initially started on colchicine. However, features are more suggestive of sprain. Ankle CT was done; no acute bony abnormality. Possible tendinopathy/tenosynovitis along tibialis posterior tendon peroneal tendons. Orthotics consulted for CAM boot, encouraged ambulation with this. Hypertensive urgency On chlorthalidone, losartan and metoprolol at home Chlorthalidone on hold due to hyponatremia. Added nifedipine 60 mg Blood pressure controlled, but slightly low today. Decreased nifedipine to 30mg PO daily. Cont to hold chlorthalidone. Possible UTI, ruled out Urine culturemore than 3 bacteria Repeat culture did not show any growth Antibiotic discontinued Obstructive sleep apnea CPAP nightly Type II diabetes chronic, stable. Hold home metformin Insulin sliding scale A1c of 6.0% Mild persistent asthma Currently stable Continue home inhalers Paroxysmal atrial fibrillation Seems 1 episode in 2011 On aspirin and beta-monico Depression chronic, stable. On venlafaxine History of CAD S/p stent in 1999 stable. On aspirin statin and beta-monico Hypothyroidism TSH 0.27, free T4- 1.52. chronic, TSH reflected possible overdosing, levothyroxine decreased to 88mcg PO daily this admission. Repeat TFTs in 6-8 weeks. Primary open-angle glaucoma chronic, stable. Continue home eyedrops DVT prophylaxis:Lovenox Full code Disposition-dc telemetry. Medically cleared for discharge once bed is available. DO Greg Bec[facility] Hospitalist Admission and Anticipated Discharge Date Admission Date: October 24, 2023 Subjective 83 yo F presents after syncopal episode she is feeling well today ankle remains swollen and sore but she feels this is better she was confused about the CAM boot at bedside and was encouraged to ambulate with this on as tolerated. she is eating/tolerating PO Physical Exam Physical Exam: CONSTITUTIONAL: WNWD, vitals as above, generally well-appearing, NAD EYES: normal conjunctivae, no scleral icterus, ENT: external ear and nose normal, MMM NECK: trachea midline RESPIRATORY: clear to auscultation bilaterally, no crackles, rales or wheezes, normal respiratory effort CARDIOVASCULAR: regular rate and rhythm, S1 and 2 heard without murmurs, gallops or rubs, no JVD, no peripheral edema, CHEST: inspection of chest was normal GASTROINTESTINAL: soft, nontender, ND, no guarding MUSCULOSKELETAL: strength 5/5 throughout, head is normocephalic and atraumatic, swelling generally with TTP on left ankle, has full active ROM SKIN: warm and dry, NEUROLOGIC: CN 2-12 grossly intact, no sensory deficit, normal cognition, normal speech, no tremor PSYCHIATRIC: alert cooperative and oriented to person, place and time. Euthymic mood, makes good eye contact, language grossly intact, recent and remote memory grossly intact. Results & Data Results & Data Vital Signs (Past 12 Hours) Vital Signs Temp Pulse Resp BP Pulse Ox O2 Del Method 10/27/23 14:56 36.7 C 64 18 106/66 97 Room Air 10/27/23 11:06 36.4 C L 53 L 18 170/76 H 97 Room Air 10/27/23 07:30 Room Air 10/27/23 07:12 36.7 C 58 L 18 130/73 96 Room Air Laboratory Results Short CBC 10/27/23 Range/Units 06:46 WBC 6.99 (4.8-10.8) K/ul Hgb 12.9 (12.0-16.0) g/dl Hct 38.8 (37.0-47.0) % Plt Count 339 (130-400) K/uL [facility] 10/27/23 06:46 Sodium 131 L Potassium 4.2 Chloride 96 L Carbon Dioxide 28 BUN 18 Creatinine 0.63 Glucose 124 H Calcium 9.2 Medications Administered Current Inpatient Medications Acetaminophen (Acetaminophen 325 Mg Tab) 650 mg PO Q4H PRN PRN Reason: Pain or Fever Stop: 11/23/23 03:50 Last Admin: 10/26/23 17:01 Dose: 650 mg Albuterol (Albuterol Hfa 8 Gm Inhaler) 2 puffs INH Q4H PRN PRN Reason: Shortness Of Breath Or Wheezing Stop: 11/23/23 03:50 Ascorbic Acid (Ascorbic Acid 500 Mg Tab) 500 mg PO QAM ALYSA Stop: 11/23/23 08:59 Last Admin: 10/27/23 08:09 Dose: 500 mg Aspirin (Aspirin 81 Mg Ectab) 81 mg PO QPM ALYSA Stop: 11/23/23 20:59 Last Admin: 10/26/23 20:13 Dose: 81 mg Atorvastatin Calcium (Atorvastatin 20 Mg Tab) 20 mg PO HS ALYSA Stop: 11/23/23 20:59 Last Admin: 10/26/23 20:13 Dose: 20 mg Azelastine HCl (Azelastine Hcl 0.1% Nasal 200 Sprays/27,400 Mcg Btl) 2 sprays NA QPM ALYSA Stop: 11/23/23 20:59 Last Admin: 10/26/23 20:12 Dose: 2 sprays Bimatoprost (Bimatoprost 0.01% Op Soln 2.5 Ml Btl) 1 drops OPB QPM ALYSA Stop: 11/23/23 20:59 Last Admin: 10/26/23 20:14 Dose: 1 drops Celecoxib (Celebrex 200 Mg Cap) 200 mg PO QAM ALYSA Stop: 11/23/23 11:49 Last Admin: 10/27/23 07:57 Dose: 200 mg Cyanocobalamin (Cyanocobalamin (B-12) 500 Mcg Tablet) 1,000 mcg PO QPM ALYSA Stop: 11/23/23 20:59 Last Admin: 10/26/23 20:13 Dose: 1,000 mcg Dextrose (Dextrose 50% 50 Ml Syringe) 25 - 50 ml IV UD PRN; Protocol PRN Reason: Hypoglycemia Protocol Stop: 11/23/23 03:50 Enoxaparin Sodium (Enoxaparin Inj 40 Mg/0.4 Ml Syr) 40 mg SQ Q24H ALYSA Stop: 11/23/23 08:59 Last Admin: 10/27/23 07:55 Dose: 40 mg Ferrous Sulfate (Ferrous Sulfate 325 Mg Tab) 325 mg PO BID ALYSA Stop: 11/23/23 08:59 Last Admin: 10/27/23 07:58 Dose: 325 mg Fluticasone Propionate (Fluticasone Propionate Na Spr 16 Gm Btl) 2 sprays NA QAM ALYSA Stop: 11/23/23 08:59 Last Admin: 10/27/23 07:58 Dose: 2 sprays Fluticasone/Vilanterol (Fluticasone/Vilanterol 200/25mcg 14 Puffs/Inhaler) 1 puffs INH DAILY ALYSA Stop: 11/23/23 08:59 Last Admin: 10/27/23 07:54 Dose: 1 puffs Glucagon (Glucagon For Inj 1 Mg Vial) 1 mg SQ UD PRN; Protocol PRN Reason: Hypoglycemia Protocol Stop: 11/23/23 03:50 Glucose (Glucose 10 Tab/Tube) 4 - 8 tab PO UD PRN; Protocol PRN Reason: Hypoglycemia Treatment Stop: 11/23/23 03:50 Glucose (Glucose 40% Gel 15 Gm Tube) 15 - 30 gm PO UD PRN; Protocol PRN Reason: Hypoglycemia Protocol Stop: 11/23/23 03:50 Insulin Aspart (Insulin Aspart Per Unit Charge) 0 units SC ACHS ALYSA Stop: 11/23/23 07:29 Last Admin: 10/27/23 16:52 Dose: 2 units Levothyroxine Sodium (Levothyroxine Sodium 88 Mcg Tablet) 88 mcg PO DAILYBB ALYSA Stop: 11/25/23 06:29 Last Admin: 10/27/23 16:55 Dose: Not Given Losartan Potassium (Losartan Potassium 50 Mg Tab) 100 mg PO QAM ALYSA Stop: 11/23/23 08:59 Last Admin: 10/27/23 07:56 Dose: 100 mg Magnesium Oxide (Magnesium Oxide 400 Mg Tab) 400 mg PO QPM ALYSA Stop: 11/23/23 20:59 Last Admin: 10/26/23 20:12 Dose: 400 mg Metoprolol Tartrate (Metoprolol Tartrate 25 Mg Tab) 25 mg PO BID ALYSA Stop: 11/23/23 08:59 Last Admin: 10/27/23 07:57 Dose: 25 mg Miscellaneous (Carbohydrates For Hypoglycemia ) 15 - 30 gm PO UD PRN PRN Reason: Hypoglycemia Protocol Stop: 11/23/23 03:50 Montelukast Sodium (Montelukast Sodium 10 Mg Tablet) 10 mg PO QPM ALYSA Stop: 11/23/23 20:59 Last Admin: 10/26/23 20:13 Dose: 10 mg Multivitamins (Multivitamin Tab) 1 tab PO DAILY ALYSA Stop: 11/23/23 08:59 Last Admin: 10/27/23 07:56 Dose: 1 tab Nifedipine (Nifedipine Extended Rel 30 Mg Tabcr) 30 mg PO QAM ALYSA Stop: 11/27/23 08:59 Nitroglycerin (Nitroglycerin Sl 0.4 Mg/Tab Tab) 0.4 mg SL Q5M PRN PRN Reason: Chest Pain Stop: 11/23/23 03:50 Nystatin (Nystatin Cr 15 Gm Tube) 1 appln EXT TID ALYSA Stop: 11/23/23 08:59 Last Admin: 10/27/23 14:51 Dose: 1 appln Oxybutynin Chloride (Oxybutynin Chloride Xl 5 Mg Tabcr) 10 mg PO QAM ALYSA Stop: 11/23/23 08:59 Last Admin: 10/27/23 07:57 Dose: 10 mg Pantoprazole Sodium (Pantoprazole 40 Mg Tab) 40 mg PO QAM ALYSA Stop: 11/23/23 08:59 Last Admin: 10/27/23 07:56 Dose: 40 mg Polyethylene Glycol (Polyethylene (Miralax) 17 Gm Pack) 17 gm PO DAILY PRN PRN Reason: Constipation Stop: 11/23/23 03:50 Potassium Chloride (Potassium Chloride Crtab 20 Meq Tabcr) 20 meq PO BID ALYSA Stop: 11/23/23 08:59 Last Admin: 10/27/23 08:09 Dose: 20 meq Triamcinolone Acetonide (Triamcinolone Acet 0.1% Cr 15 Gm Tube) 1 appln TOP BID ALYSA Stop: 11/23/23 08:59 Last Admin: 10/27/23 07:59 Dose: 1 appln Venlafaxine HCl (Venlafaxine Hcl Xr 37.5 Mg Capxr) 37.5 mg PO DAILY ALYSA Stop: 11/23/23 08:59 Last Admin: 10/27/23 07:55 Dose: 37.5 mg Vitamin D (Cholecalciferol 1,000 Units 25 Mcg Tab) 1,000 units PO QAM ALYSA Stop: 11/23/23 08:59 Last Admin: 10/27/23 07:55 Dose: 1,000 units Zinc Sulfate (Zinc Sulfate 220 Mg Capsule) 220 mg PO QPM ALYSA Stop: 11/23/23 20:59 Last Admin: 10/26/23 20:13 Dose: 220 mg
[2023-10-27] MEDS: AZELASTINE HCL 0.1% NASAL 200 SPRAYS/27,400 MCG BTL SCH (21:07)
[2023-10-27] MEDS: MONTELUKAST SODIUM 10 MG TABLET PO SCH (21:08)
[2023-10-27] MEDS: BIMATOPROST 0.01% OP SOLN 2.5 ML BTL OPB SCH (21:08)
[2023-10-27] MEDS: CYANOCOBALAMIN (B-12) 500 MCG TABLET PO SCH (21:08)
[2023-10-27] MEDS: ZINC SULFATE 220 MG CAPSULE PO SCH (21:09)
[2023-10-27] MEDS: MAGNESIUM OXIDE 400 MG TAB PO SCH (21:09)
[2023-10-27] MEDS: ATORVASTATIN 20 MG TAB PO SCH (21:09)
[2023-10-27] MEDS: ASPIRIN 81 MG ECTAB PO SCH (21:09)
[2023-10-27] MEDS: ACETAMINOPHEN 325 MG TAB PO PRN (21:19)
[2023-10-27] MEDS ORDERED: oxyCODONE HCL IR 5 MG TAB (IMMEDIATE RELEASE) PO PRN (23:49)
[2023-10-28] MEDS: LEVOTHYROXINE SODIUM 88 MCG TABLET PO SCH (06:03)
[2023-10-28] MEDS ORDERED: NIFEdipine EXTENDED REL 30 MG TABCR PO SCH (09:00)
[2023-10-28] MEDS: FLUTICASONE PROPIONATE NA SPR 16 GM BTL SCH (09:04)
[2023-10-28] MEDS: NYSTATIN CR 15 GM TUBE EXT SCH ×3 (09:05→21:25)
[2023-10-28] MEDS: FLUTICASONE/VILANTEROL 200/25MCG 14 PUFFS/INHALER INH SCH (09:05)
[2023-10-28] MEDS: INSULIN ASPART PER UNIT CHARGE SC SCH ×4 (09:05→20:51)
[2023-10-28] MEDS: PANTOprazole 40 MG TAB PO SCH (09:08)
[2023-10-28] MEDS: ASCORBIC ACID 500 MG TAB PO SCH (09:08)
[2023-10-28] MEDS: ENOXAPARIN INJ 40 MG/0.4 ML SYR SQ SCH (09:08)
[2023-10-28] MEDS: CHOLECALCIFEROL 1,000 UNITS 25 MCG TAB PO SCH (09:08)
[2023-10-28] MEDS: LOSARTAN POTASSIUM 50 MG TAB PO SCH (09:08)
[2023-10-28] MEDS: CeleBREX 200 MG CAP PO SCH (09:08)
[2023-10-28] MEDS: POTASSIUM CHLORIDE CRTAB 20 MEQ TABCR PO SCH ×2 (09:08→21:25)
[2023-10-28] MEDS: VENLAFAXINE HCL XR 37.5 MG CAPXR PO SCH (09:08)
[2023-10-28] MEDS: METOPROLOL TARTRATE 25 MG TAB PO SCH ×2 (09:09→21:13)
[2023-10-28] MEDS: OXYBUTYNIN CHLORIDE XL 5 MG TABCR PO SCH (09:09)
[2023-10-28] MEDS: TRIAMCINOLONE ACET 0.1% CR 15 GM TUBE TOP SCH ×2 (09:10→21:25)
--- NOTE | 2023-10-28 09:46 | Hospitalist Progress Note ---
Date of Service October 28, 2023 Assessment & Plan (1) Syncope and collapse: Plan: 83-year-old female with past med history significant for type 2 diabetes, hypothyroidism, hyperlipidemia, obstructive sleep apnea, mild persistent asthma, paroxysmal atrial fibrillation, hypertension, history of CAD, GERD, primary open-angle glaucoma, depression, presents with mechanical fall and left ankle pain. Mechanical fall Possible syncopal-vasovagal syncope Patient presented to the ED after she fell down while walking with a walker in the hallways of her home. CT head without, no acute finding EKG on admission personally reviewed; normal sinus rhythm; no ST or T wave changes Echocardiogram shows EF of 65 to 70% with grade 2 diastolic dysfunction. Severe mitral annular calcification. Cardiology consulted Syncopal event likely vasovagal as patient was having severe ankle pain and was feeling faint prior to LOC DC telemetry PT OT evaluation done; recommend rehab Left ankle pain (likely sprain) Patient complains of 5 days of ankle pain; no trauma X-ray left ankleno fracture or dislocation Orthopedic consulted; recommend short-term Celebrex for at least 5 to 7 days. Recommend rest, ice, anti-inflammatory. Uric acid within normal limits. Initially started on colchicine. However, features are more suggestive of sprain. Ankle CT was done; no acute bony abnormality. Possible tendinopathy/tenosynovitis along tibialis posterior tendon peroneal tendons. Orthotics consulted for CAM boot, encouraged ambulation with this. Hypertensive urgency On chlorthalidone, losartan and metoprolol at home Chlorthalidone on hold due to hyponatremia. Added nifedipine 60 mg Blood pressure controlled, but slightly low today. Decreased nifedipine to 30mg PO daily. Cont to hold chlorthalidone. Possible UTI, ruled out Urine culturemore than 3 bacteria Repeat culture did not show any growth Antibiotic discontinued Obstructive sleep apnea CPAP nightly Type II diabetes chronic, stable. Hold home metformin Insulin sliding scale A1c of 6.0% Mild persistent asthma Currently stable Continue home inhalers Paroxysmal atrial fibrillation Seems 1 episode in 2011 On aspirin and beta-monico Depression chronic, stable. On venlafaxine History of CAD S/p stent in 1999 stable. On aspirin statin and beta-monico Hypothyroidism TSH 0.27, free T4- 1.52. chronic, TSH reflected possible overdosing, levothyroxine decreased to 88mcg PO daily this admission. Repeat TFTs in 6-8 weeks. Primary open-angle glaucoma chronic, stable. Continue home eyedrops DVT prophylaxis:Lovenox Full code Disposition-dc telemetry. Medically cleared for discharge once bed is available. [facility] Hospitalist Admission and Anticipated Discharge Date Admission Date: October 24, 2023 Subjective 83 yo F presents after syncopal episode she is feeling well today ankle remains swollen and sore but she feels this is better-pain is improving she said her leg was too weak to ambulate with the cam boot on. Physical Exam Physical Exam: CONSTITUTIONAL: WNWD, vitals as above, generally well-appearing, NAD EYES: normal conjunctivae, no scleral icterus, ENT: external ear and nose normal, MMM NECK: trachea midline RESPIRATORY: clear to auscultation bilaterally, no crackles, rales or wheezes, normal respiratory effort CARDIOVASCULAR: regular rate and rhythm, S1 and 2 heard without murmurs, gallops or rubs, no JVD, no peripheral edema, CHEST: inspection of chest was normal GASTROINTESTINAL: soft, nontender, ND, no guarding MUSCULOSKELETAL: strength 5/5 throughout, head is normocephalic and atraumatic, swelling generally with TTP on left ankle, has full active ROM SKIN: warm and dry, NEUROLOGIC: CN 2-12 grossly intact, no sensory deficit, normal cognition, normal speech, no tremor PSYCHIATRIC: alert cooperative and oriented to person, place and time. Euthymic mood, makes good eye contact, language grossly intact, recent and remote memory grossly intact. Results & Data Results & Data Vital Signs (Past 12 Hours) Vital Signs Temp Pulse Resp BP BP Pulse Ox O2 Del Method 10/28/23 07:44 36.3 C L 55 L 17 167/72 H 96 Room Air 10/27/23 23:14 36.3 C L 60 18 147/80 H 94 Room Air 10/27/23 22:52 36.6 C 62 18 151/69 H 95 Room Air Medications Administered Current Inpatient Medications Acetaminophen (Acetaminophen 325 Mg Tab) 650 mg PO Q4H PRN PRN Reason: Pain or Fever Stop: 11/23/23 03:50 Last Admin: 10/27/23 21:19 Dose: 650 mg Albuterol (Albuterol Hfa 8 Gm Inhaler) 2 puffs INH Q4H PRN PRN Reason: Shortness Of Breath Or Wheezing Stop: 11/23/23 03:50 Ascorbic Acid (Ascorbic Acid 500 Mg Tab) 500 mg PO QAM ALYSA Stop: 11/23/23 08:59 Last Admin: 10/28/23 09:08 Dose: 500 mg Aspirin (Aspirin 81 Mg Ectab) 81 mg PO QPM ALYSA Stop: 11/23/23 20:59 Last Admin: 10/27/23 21:09 Dose: 81 mg Atorvastatin Calcium (Atorvastatin 20 Mg Tab) 20 mg PO HS ALYSA Stop: 11/23/23 20:59 Last Admin: 10/27/23 21:09 Dose: 20 mg Azelastine HCl (Azelastine Hcl 0.1% Nasal 200 Sprays/27,400 Mcg Btl) 2 sprays NA QPM ALYSA Stop: 11/23/23 20:59 Last Admin: 10/27/23 21:07 Dose: 2 sprays Bimatoprost (Bimatoprost 0.01% Op Soln 2.5 Ml Btl) 1 drops OPB QPM ALYSA Stop: 11/23/23 20:59 Last Admin: 10/27/23 21:08 Dose: 1 drops Celecoxib (Celebrex 200 Mg Cap) 200 mg PO QAM ALYSA Stop: 11/23/23 11:49 Last Admin: 10/28/23 09:08 Dose: 200 mg Cyanocobalamin (Cyanocobalamin (B-12) 500 Mcg Tablet) 1,000 mcg PO QPM ALYSA Stop: 11/23/23 20:59 Last Admin: 10/27/23 21:08 Dose: 1,000 mcg Dextrose (Dextrose 50% 50 Ml Syringe) 25 - 50 ml IV UD PRN; Protocol PRN Reason: Hypoglycemia Protocol Stop: 11/23/23 03:50 Enoxaparin Sodium (Enoxaparin Inj 40 Mg/0.4 Ml Syr) 40 mg SQ Q24H ALYSA Stop: 11/23/23 08:59 Last Admin: 10/28/23 09:08 Dose: 40 mg Ferrous Sulfate (Ferrous Sulfate 325 Mg Tab) 325 mg PO BID ALYSA Stop: 11/23/23 08:59 Last Admin: 10/27/23 07:58 Dose: 325 mg Fluticasone Propionate (Fluticasone Propionate Na Spr 16 Gm Btl) 2 sprays NA QAM ALYSA Stop: 11/23/23 08:59 Last Admin: 10/28/23 09:04 Dose: 2 sprays Fluticasone/Vilanterol (Fluticasone/Vilanterol 200/25mcg 14 Puffs/Inhaler) 1 puffs INH DAILY ALYSA Stop: 11/23/23 08:59 Last Admin: 10/28/23 09:05 Dose: 1 puffs Glucagon (Glucagon For Inj 1 Mg Vial) 1 mg SQ UD PRN; Protocol PRN Reason: Hypoglycemia Protocol Stop: 11/23/23 03:50 Glucose (Glucose 10 Tab/Tube) 4 - 8 tab PO UD PRN; Protocol PRN Reason: Hypoglycemia Treatment Stop: 11/23/23 03:50 Glucose (Glucose 40% Gel 15 Gm Tube) 15 - 30 gm PO UD PRN; Protocol PRN Reason: Hypoglycemia Protocol Stop: 11/23/23 03:50 Insulin Aspart (Insulin Aspart Per Unit Charge) 0 units SC ACHS ALYSA Stop: 11/23/23 07:29 Last Admin: 10/28/23 09:05 Dose: Not Given Levothyroxine Sodium (Levothyroxine Sodium 88 Mcg Tablet) 88 mcg PO DAILYBB ALYSA Stop: 11/25/23 06:29 Last Admin: 10/28/23 06:03 Dose: 88 mcg Losartan Potassium (Losartan Potassium 50 Mg Tab) 100 mg PO QAM ALYSA Stop: 11/23/23 08:59 Last Admin: 10/28/23 09:08 Dose: 100 mg Magnesium Oxide (Magnesium Oxide 400 Mg Tab) 400 mg PO QPM ALYSA Stop: 11/23/23 20:59 Last Admin: 10/27/23 21:09 Dose: 400 mg Metoprolol Tartrate (Metoprolol Tartrate 25 Mg Tab) 25 mg PO BID ALYSA Stop: 11/23/23 08:59 Last Admin: 10/28/23 09:09 Dose: Not Given Miscellaneous (Carbohydrates For Hypoglycemia ) 15 - 30 gm PO UD PRN PRN Reason: Hypoglycemia Protocol Stop: 11/23/23 03:50 Montelukast Sodium (Montelukast Sodium 10 Mg Tablet) 10 mg PO QPM ALYSA Stop: 11/23/23 20:59 Last Admin: 10/27/23 21:08 Dose: 10 mg Multivitamins (Multivitamin Tab) 1 tab PO DAILY ALYSA Stop: 11/23/23 08:59 Last Admin: 10/27/23 07:56 Dose: 1 tab Nifedipine (Nifedipine Extended Rel 30 Mg Tabcr) 30 mg PO QAM ALYSA Stop: 11/27/23 08:59 Last Admin: 10/28/23 09:08 Dose: 30 mg Nitroglycerin (Nitroglycerin Sl 0.4 Mg/Tab Tab) 0.4 mg SL Q5M PRN PRN Reason: Chest Pain Stop: 11/23/23 03:50 Nystatin (Nystatin Cr 15 Gm Tube) 1 appln EXT TID ALYSA Stop: 11/23/23 08:59 Last Admin: 10/28/23 09:05 Dose: 1 appln Oxybutynin Chloride (Oxybutynin Chloride Xl 5 Mg Tabcr) 10 mg PO QAM ALYSA Stop: 11/23/23 08:59 Last Admin: 10/28/23 09:09 Dose: 10 mg Oxycodone HCl (Oxycodone Hcl Ir 5 Mg Tab (Immediate Release)) 5 mg PO Q4H PRN PRN Reason: Pain Stop: 11/10/23 23:48 Last Admin: 10/27/23 23:59 Dose: 5 mg Pantoprazole Sodium (Pantoprazole 40 Mg Tab) 40 mg PO QAM ALYSA Stop: 11/23/23 08:59 Last Admin: 10/28/23 09:08 Dose: 40 mg Polyethylene Glycol (Polyethylene (Miralax) 17 Gm Pack) 17 gm PO DAILY PRN PRN Reason: Constipation Stop: 11/23/23 03:50 Potassium Chloride (Potassium Chloride Crtab 20 Meq Tabcr) 20 meq PO BID ALYSA Stop: 11/23/23 08:59 Last Admin: 10/28/23 09:08 Dose: 20 meq Triamcinolone Acetonide (Triamcinolone Acet 0.1% Cr 15 Gm Tube) 1 appln TOP BID ALYSA Stop: 11/23/23 08:59 Last Admin: 10/28/23 09:10 Dose: 1 appln Venlafaxine HCl (Venlafaxine Hcl Xr 37.5 Mg Capxr) 37.5 mg PO DAILY ALYSA Stop: 11/23/23 08:59 Last Admin: 10/28/23 09:08 Dose: 37.5 mg Vitamin D (Cholecalciferol 1,000 Units 25 Mcg Tab) 1,000 units PO QAM ALYSA Stop: 11/23/23 08:59 Last Admin: 10/28/23 09:08 Dose: 1,000 units Zinc Sulfate (Zinc Sulfate 220 Mg Capsule) 220 mg PO QPM ALYSA Stop: 11/23/23 20:59 Last Admin: 10/27/23 21:09 Dose: 220 mg
[2023-10-28 21:04] VITALS: O2SAT 95
[2023-10-28] MEDS: MONTELUKAST SODIUM 10 MG TABLET PO SCH (21:24)
[2023-10-28] MEDS: ASPIRIN 81 MG ECTAB PO SCH (21:24)
[2023-10-28] MEDS: BIMATOPROST 0.01% OP SOLN 2.5 ML BTL OPB SCH (21:24)
[2023-10-28] MEDS: MAGNESIUM OXIDE 400 MG TAB PO SCH (21:24)
[2023-10-28] MEDS: AZELASTINE HCL 0.1% NASAL 200 SPRAYS/27,400 MCG BTL SCH (21:24)
[2023-10-28] MEDS: ATORVASTATIN 20 MG TAB PO SCH (21:24)
[2023-10-28] MEDS: CYANOCOBALAMIN (B-12) 500 MCG TABLET PO SCH (21:24)
[2023-10-28] MEDS: ZINC SULFATE 220 MG CAPSULE PO SCH (21:25)
[2023-10-29] MEDS: LEVOTHYROXINE SODIUM 88 MCG TABLET PO SCH (05:27)
[2023-10-29 07:40] VITALS: BP 175/67; PULSE 70; RESP 18; TEMP 97.7
[2023-10-29 08:37] LABS: Hematocrit (blood only) 38.1 % (37.0-47.0); Hemoglobin 12.6 g/dl (12.0-16.0); Mean Corpuscular Hemoglobin 29.3 pg (25.0-34.0); Mean Corpuscular Hgb Conc 33.1 g/dL (32.0-36.0); Mean Corpuscular Volume 88.6 fL (80.0-100.0); Mean Platelet Volume 10.4 fL (9.4-12.4); Platelet Count 350 K/uL (130-400); RDW Coefficient of Variation 13.8 % (11.5-14.5); RDW Standard Deviation 44.9 fL (36.4-46.3); White Blood Count 6.19 K/ul (4.8-10.8)
[2023-10-29] MEDS ORDERED: NIFEdipine EXTENDED REL 30 MG TABCR PO SCH (09:00)
[2023-10-29 09:12] LABS: Calcium 9.1 mg/dl (8.6-10.3); Creatinine Clr Calc Pharmacy 72.9 ml/min; Est GFR (African American) 99.8 ml/min; Est GFR (Non-African American) 86.1 ml/min; Magnesium 1.7 mg/dl (1.7-2.4); Potassium 3.9 mmol/L (3.5-5.1)
[2023-10-29] MEDS: FLUTICASONE PROPIONATE NA SPR 16 GM BTL SCH (09:25)
[2023-10-29] MEDS: FLUTICASONE/VILANTEROL 200/25MCG 14 PUFFS/INHALER INH SCH (09:25)
[2023-10-29] MEDS: ENOXAPARIN INJ 40 MG/0.4 ML SYR SQ SCH (09:26)
[2023-10-29] MEDS: TRIAMCINOLONE ACET 0.1% CR 15 GM TUBE TOP SCH (09:26)
[2023-10-29] MEDS: NYSTATIN CR 15 GM TUBE EXT SCH ×2 (09:26→13:18)
[2023-10-29] MEDS: VENLAFAXINE HCL XR 37.5 MG CAPXR PO SCH (09:27)
[2023-10-29] MEDS: OXYBUTYNIN CHLORIDE XL 5 MG TABCR PO SCH (09:28)
[2023-10-29] MEDS: ASCORBIC ACID 500 MG TAB PO SCH (09:28)
[2023-10-29] MEDS: POTASSIUM CHLORIDE CRTAB 20 MEQ TABCR PO SCH (09:28)
[2023-10-29] MEDS: LOSARTAN POTASSIUM 50 MG TAB PO SCH (09:28)
[2023-10-29] MEDS: CeleBREX 200 MG CAP PO SCH (09:28)
[2023-10-29] MEDS: CHOLECALCIFEROL 1,000 UNITS 25 MCG TAB PO SCH (09:28)
[2023-10-29] MEDS: METOPROLOL TARTRATE 25 MG TAB PO SCH (09:28)
[2023-10-29] MEDS: PANTOprazole 40 MG TAB PO SCH (09:28)
[2023-10-29] MEDS: INSULIN ASPART PER UNIT CHARGE SC SCH ×2 (09:31→12:46)
== END 2023-10-29 17:10 | DRG 312 ==
LOC: ED 19:18 → EDINP 10-24 02:10 → SUATTDRO 10-24 02:10 → EDINP 10-24 03:52 → 2S 10-24 20:02 → 3N 10-27 23:06

== ENCOUNTER 2023-12-02 22:55 | Inpatient (IN) ==
[2023-12-02] MEDS ORDERED: SODIUM CHLORIDE 0.9% 1,000 ML IV SCH (23:15)
--- NOTE | 2023-12-02 23:22 | Emergency Department Note ---
Impression & Plan Generalized weakness, Hypomagnesemia, Chronic pain in left foot, Ambulatory dysfunction ED Provider Note ED Provider Note NAME: ERNIE WELLER AGE:83 SEX: Female : 1940 ARRIVES VIA: EMS INFORMANT: Patient ED PROVIDER(s): Mandi Conteh DO CHIEF COMPLAINT: Weakness HPI: This is an 83-year-old female presents emerged part via EMS after weakness and a near fall at home. Patient states she felt weak, with increased dizziness and felt as though she was going to fall however her significant other caught her. She did not sustain any injury. She states she has had intermittent increased weakness and lightheadedness over the last 2 to 3 days. No change in appetite. She states no change in bowel movements, no chest pain, no palpitations, no abdominal pain, no shortness of breath. No recent fevers, chills, URI symptoms. No change in color or odor of urine although she feels she is urinating more frequently. Patient was recently hospitalized after a fall with injury to her left foot and after discharge sent to rehab. Patient states she is improving although is still using a walker and cannot bear full weight on her foot yet. Patient believes she did have medication changes during her last admission but does not recall what they are. PAST MEDICAL HISTORY:See Below PAST SURGICAL HISTORY:See Below FAMILY HISTORY:See Below SOCIAL HISTORY:See Below HOME MEDICATIONS:See Below ALLERGIES:See Below VITALS:See Below PHYSICAL EXAMINATION: GENERAL: alert, well appearing, well nourished, no distress, non-toxic EYE EXAM: normal conjunctiva, PERRL and EOM's grossly intact, no nystagmus OROPHARYNX: no exudate, no erythema, lips, buccal mucosa, and tongue normal and mucous membranes are dry NECK: supple, no nuchal rigidity, no adenopathy, non-tender LUNGS: Clear to auscultation. Normal chest wall mechanics, no w/r/r HEART: no murmurs, S1 normal and S2 normal ABDOMEN: abdomen soft, non-tender, normo-active bowel sounds, no masses, no rebound or guarding. BACK: Back is symmetrical on inspection and there is no deformity, no midline tenderness, no CVA tenderness. SKIN: no rashes, petechiae, orbruising UPPER EXTREMITIES: upper extremities are grossly normal. FROM, nml pulses b/l. LOWER EXTREMITIES: No pitting edema RLE. Left lower extremity edema, compression wrap in place on the distal lower extremity, FROM, nml pulses b/l. NEURO EXAM: Normal sensorium, cranial nerves II-XII grossly intact, normal speech, no facial droop,nogross weakness of arms, no gross weakness of legs. Gross sensation intact. No ataxia. Vital Signs: reviewed and remarkable Differential Diagnosis: dehydration, stroke, anemia, hypoglycemia, hyponatremia, hypernatremia, urinary tract infection, pneumonia, bronchitis, sepsis, gastroenteritis, additional abdominal pathology, metabolic abnormalities, as well as others were considered MEDICAL DECISION MAKING: This is an 83-year-old female brought by EMS due to concern for increased weakness and lightheadedness and a near fall this evening. Patient afebrile vital signs stable. Labs drawn and sent, IV established, EKG and chest ray performed bedside interpreted by me patient monitored on telemetry. Patient sent for CT of the head additionally. Patient found to have significant hypomagnesemia. IV repletion with magnesium was started while in the emergency room. She did receive gentle IV fluid rehydration. Urine collected and sent for analysis, no convincing evidence for UTI. BNP noted to be elevated, however was similarly elevated during last admission. No overt signs of congestive heart failure on exam. No complaints of CHF or worsening lower extremity edema. Patient still had difficulty with ambulation even with assistance and did not report any improvement after 2 g of IV magnesium. Due to concern for fall risk, persistent symptoms, and comorbidities, case discussed with hospitalist team for additional evaluation and management. Consultation(s): 0430: Discussed with Dr. Ochoa, [facility] hospitalist team, for additional evaluation and management. ER Treatment Provided: See below 0412: Patient was given gentle IV fluid rehydration and 2 g of magnesium IV. After completing this we tried p.o. challenge which patient tolerated and then ambulatory trial. Patient does typically use a walker at home although 1 was not available. She was able to hold onto staff and still complained of increased weakness and lightheadedness with attempts at ambulation. Diagnostics Interpreted By Me: -ECG: Normal sinus at 72, normal axis, normal intervals, nonspecific ST/T wave changes -Cardiac Monitoring: An order was placed for continuous cardiac monitoring. The monitor shows a rate of 72 with normal sinus rhythm. -Laboratory studies: As stated above and show below. -Imaging studies: X-ray Chest: A single view study of the chest was reviewed and was negative for cardiomegaly, focal infiltrate, effusion, pulmonary edema, or wide mediastinum. Triage Nursing Note Reviewed Prior/Outside Records Reviewed Past Med/Surg History Medical History Right rotator cuff tear Right knee DJD CAD (coronary artery disease) stent in 1999 T2DM (type 2 diabetes mellitus) HTN (hypertension) HLD (hyperlipidemia) PAF (paroxysmal atrial fibrillation) DEMARIO (obstructive sleep apnea) Asthma CKD (chronic kidney disease) stage 3, GFR 30-59 ml/min Primary open angle glaucoma GERD (gastroesophageal reflux disease) Hypothyroidism History of placement of stent in LAD coronary artery Sleep apnea Surgical History History of rotator cuff surgery History of cataract extraction History of arthroscopic knee surgery History of tonsillectomy History of appendectomy Stented coronary artery Family History Father CHF (congestive heart failure) Mother Cancer Social History Smoking Status: Never smoker Hx Alcohol Use: No Hx Substance Use: No Preferred Language: Bengali 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 Verified 11/15/23 13:55 broccoli Allergy Unknown GAS Unverified 11/15/23 13:55 grapefruit Allergy Unknown BRONCHITIS Unverified 11/15/23 13:55 mold Allergy Unknown asthma Verified 11/15/23 13:55 symptoms orange Allergy Unknown BRONCHITIS Unverified 11/15/23 13:55 paroxetine Allergy Unknown ANAPHYLAXIS Unverified 11/15/23 13:55 pollen extracts Allergy Unknown asthma Verified 11/15/23 13:55 symptoms crab AdvReac Unknown diarrhea Verified 11/15/23 13:55 peanut AdvReac Unknown gas/bloatin Unverified 11/15/23 13:55 g Dust Allergy Unknown asthma Uncoded 11/15/23 13:55 symptoms BEANS AdvReac Unknown gas and Uncoded 11/15/23 13:55 bloating with consuption of green or kidneys beans PEANUTS AdvReac Unknown gas/bloatin Uncoded 11/15/23 13:55 g Home Meds Home Medications Medication Instructions Recorded Confirmed atorvastatin 20 mg tablet 20 mg PO 08/22/19 12/03/23 coenzyme Q10 100 mg capsule 100 mg PO QAM 08/22/19 12/03/23 (CoQ-10) cyanocobalamin (vitamin B-12) 1,000 mcg PO QPM 08/22/19 12/03/23 1,000 mcg capsule dexlansoprazole 60 mg 60 mg PO QAM 08/22/19 12/03/23 capsule,biphase delayed release (Dexilant) fluticasone propionate 50 2 spray intranasal QAM 08/22/19 12/03/23 mcg/actuation nasal spray,suspension losartan 100 mg tablet 100 mg PO QAM 08/22/19 12/03/23 metformin 850 mg tablet 850 mg PO BIDM 08/22/19 12/03/23 metoprolol tartrate 25 mg tablet 25 mg PO BID 08/22/19 12/03/23 montelukast 10 mg tablet 10 mg PO QPM 08/22/19 12/03/23 multivitamin 1 tab PO DAILY 08/22/19 12/03/23 venlafaxine 37.5 mg 37.5 mg PO DAILY 08/24/19 12/03/23 capsule,extended release 24 hr bimatoprost 0.01 % eye drops 1 drp OPB HS 05/08/22 12/03/23 (Sahraigan) albuterol sulfate 90 mcg/actuation 2 puff inhalation Q4H PRN 10/23/23 12/03/23 aerosol inhaler Shortness Of Breath Or Wheezing ascorbic acid (vitamin C) 500 mg 500 mg PO QAM 10/23/23 12/03/23 tablet aspirin 81 mg tablet,delayed 81 mg PO QPM 10/23/23 12/03/23 release (Ecotrin Low Strength) azelastine 137 mcg (0.1 %) nasal 2 spray intranasal QPM 10/23/23 12/03/23 spray aerosol cholecalciferol (vitamin D3) 25 25 mcg PO QAM 10/23/23 12/03/23 mcg (1,000 unit) tablet fluticasone 250 mcg-salmeterol 50 1 inh inhalation BID 10/23/23 12/03/23 mcg/dose blistr powdr for inhalation (Wixela Inhub) magnesium oxide 400 mg (241.3 mg 400 mg PO QAM 10/23/23 12/03/23 magnesium) tablet oxybutynin chloride 10 mg 10 mg PO QAM 10/23/23 12/03/23 tablet,extended release 24 hr zinc gluconate 50 mg tablet 50 mg PO QPM 10/23/23 12/03/23 ketoconazole 2 % topical cream 1 applic topical BID 12/02/23 12/02/23 levothyroxine 100 mcg tablet 100 mcg PO DAILYBB 12/02/23 12/03/23 nifedipine 90 mg tablet,extended 90 mg PO QAM 12/02/23 12/03/23 release 24 hr sodium chloride 1,000 mg soluble 1,000 mg PO AMHS 12/02/23 12/03/23 tablet potassium chloride 10 mEq 20 meq PO BID 12/03/23 12/03/23 tablet,extended release(part/cryst) (Megan-Con M) Results & Data (ED) Vital Signs Vital Signs - 24 hr 12/02/23 23:03 12/02/23 23:25 12/03/23 00:00 Temperature 36.9 C Temperature Source Oral Pulse Rate 71 76 73 Respiratory Rate 16 20 Respiratory Effort / Characteristics Non-Labored Spontaneous Respiratory Depth Normal Respiratory Pattern Regular Blood Pressure 151/66 H Blood Pressure Mean 94 Pulse Oximetry 97 96 Oxygen Delivery Method Room Air Sepsis Recent Fever Within 48 Hours No Sepsis New/Unexplained Change in Mental Status No Sepsis Action Taken by Nursing No Action Required 12/03/23 00:37 12/03/23 01:01 12/03/23 02:00 Temperature Temperature Source Pulse Rate 69 75 76 Respiratory Rate 14 22 18 Respiratory Effort / Characteristics Respiratory Depth Respiratory Pattern Blood Pressure 157/79 H 160/66 H 144/70 H Blood Pressure Mean 105 97 94 Pulse Oximetry 93 93 94 Oxygen Delivery Method Sepsis Recent Fever Within 48 Hours Sepsis New/Unexplained Change in Mental Status Sepsis Action Taken by Nursing 12/03/23 03:00 12/03/23 03:39 Temperature Temperature Source Pulse Rate 69 75 Respiratory Rate 20 Respiratory Effort / Characteristics Respiratory Depth Respiratory Pattern Blood Pressure 141/61 H Blood Pressure Mean 87 Pulse Oximetry 92 Oxygen Delivery Method Sepsis Recent Fever Within 48 Hours Sepsis New/Unexplained Change in Mental Status Sepsis Action Taken by Nursing Laboratory Data 12/02/23 23:11 12/02/23 23:11 Lab Results 12/02/23 12/02/23 12/02/23 Range/Units 23:11 23:19 23:27 WBC 11.35 H (4.8-10.8) K/ul RBC 4.71 (4.20-5.40) M/uL Hgb 13.9 (12.0-16.0) g/dl Hct 41.9 (37.0-47.0) % MCV 89.0 (80.0-100.0) fL MCH 29.5 (25.0-34.0) pg MCHC 33.2 (32.0-36.0) g/dL RDW Std Deviation 49.0 H (36.4-46.3) fL RDW Coeff of Stoney 15.0 H (11.5-14.5) % Plt Count 315 (130-400) K/uL MPV 11.0 (9.4-12.4) fL Immature Gran % (Auto) 0.4 % Neut % (Auto) 77.7 % Lymph % (Auto) 10.4 % Cache % (Auto) 9.2 % Eos % (Auto) 1.9 % Baso % (Auto) 0.4 % Neut # (Auto) 8.82 H (1.40-6.50) K/uL Lymph # (Auto) 1.18 L (1.20-3.40) K/uL Cache # (Auto) 1.04 H (0.11-0.59) K/uL Eos # (Auto) 0.22 (0.00-0.50) K/uL Baso # (Auto) 0.04 (0.00-0.20) K/uL Immature Gran # (Auto) 0.05 (0.01-0.20) K/uL Sodium 139 (136-145) mmol/L Potassium 3.7 (3.5-5.1) mmol/L Chloride 102 (98-107) mmol/L Carbon Dioxide 27 (21-32) mmol/L Anion Gap 10 (3-11) BUN 16 (6-23) mg/dl Creatinine 0.72 (0.6-1.2) mg/dl Est Cr Clr Drug Dosing 55.0 ml/min Est GFR ( Amer) 89.1 ml/min Est GFR (Non-Af Amer) 76.9 ml/min BUN/Creatinine Ratio 22.2 H (10-20) Glucose 150 H (70-99(Fasting)) mg/dl POC Glucose 145 H (70-99) mg/dl Calcium 9.2 (8.6-10.3) mg/dl Magnesium 1.0 L (1.7-2.4) mg/dl Total Bilirubin 0.3 (0.2-1.0) mg/dl AST 10 L (13-39) U/L ALT 7 (7-52) U/L Alkaline Phosphatase 64 (34-104) U/L Troponin I High Sens 8.7 (0-14) pg/ml B-Natriuretic Peptide 269 H (0-100) pg/ml Total Protein 7.3 (6.0-8.3) gm/dl Albumin 4.0 (3.4-5.0) gm/dl Globulin 3.3 (2.5-4.0) gm/dl Albumin/Globulin Ratio 1.2 (0.9-2) Lipase 11 (11-82) U/L TSH 1.064 (0.300-4.500) uIu/ml Urine Color Yellow Urine Appearance Clear (Clear) Urine pH 7.0 (4.5-7.5) Ur Specific [place] 1.015 (1.000-1.030) Urine Protein Negative (Negative) Urine Glucose (UA) Negative (Negative) Urine Ketones Negative (Negative) Urine Blood Trace-intact H (Negative) Urine Nitrite Negative (Negative) Urine Bilirubin Negative (Negative) Urine Urobilinogen Negative (Negative) Ur Leukocyte Esterase Trace H (Negative) Urine RBC 0-4 (0-4) /hpf Urine WBC 0-5 (0-5) /hpf Ur Epithelial Cells 0-5 (0-5) /lpf Urine Bacteria Negative (Negative) Urine Mucus Present A (None Prsent) Adenovirus (PCR) (NotDetected) B. pertussis DNA (PCR) (NotDetected) B.parapertussis DNA PCR (NotDetected) C. pneumoniae DNA (PCR) (NotDetected) Coronavirus OC43 (PCR) (NotDetected) Coronavirus HKU1 (PCR) (NotDetected) Coronavirus 229E (PCR) (NotDetected) SARS-CoV-2 (PCR) (NotDetected) Coronavirus NL63 (PCR) (NotDetected) Human Metapneumovir PCR (NotDetected) Influenza Type A (PCR) (NotDetected) Influenza Type B (PCR) (NotDetected) M. pneumoniae (PCR) (NotDetected) Parainfluenza 1 (PCR) (NotDetected) Parainfluenza 2 (PCR) (NotDetected) Parainfluenza 3 (PCR) (NotDetected) Parainfluenza 4 (PCR) (NotDetected) RSV (PCR) (NotDetected) Entero/Rhino (PCR) (NotDetected) 12/03/23 Range/Units 00:36 WBC (4.8-10.8) K/ul RBC (4.20-5.40) M/uL Hgb (12.0-16.0) g/dl Hct (37.0-47.0) % MCV (80.0-100.0) fL MCH (25.0-34.0) pg MCHC (32.0-36.0) g/dL RDW Std Deviation (36.4-46.3) fL RDW Coeff of Stoney (11.5-14.5) % Plt Count (130-400) K/uL MPV (9.4-12.4) fL Immature Gran % (Auto) % Neut % (Auto) % Lymph % (Auto) % Cache % (Auto) % Eos % (Auto) % Baso % (Auto) % Neut # (Auto) (1.40-6.50) K/uL Lymph # (Auto) (1.20-3.40) K/uL Cache # (Auto) (0.11-0.59) K/uL Eos # (Auto) (0.00-0.50) K/uL Baso # (Auto) (0.00-0.20) K/uL Immature Gran # (Auto) (0.01-0.20) K/uL Sodium (136-145) mmol/L Potassium (3.5-5.1) mmol/L Chloride (98-107) mmol/L Carbon Dioxide (21-32) mmol/L Anion Gap (3-11) BUN (6-23) mg/dl Creatinine (0.6-1.2) mg/dl Est Cr Clr Drug Dosing ml/min Est GFR ( Amer) ml/min Est GFR (Non-Af Amer) ml/min BUN/Creatinine Ratio (10-20) Glucose (70-99(Fasting)) mg/dl POC Glucose (70-99) mg/dl Calcium (8.6-10.3) mg/dl Magnesium (1.7-2.4) mg/dl Total Bilirubin (0.2-1.0) mg/dl AST (13-39) U/L ALT (7-52) U/L Alkaline Phosphatase (34-104) U/L Troponin I High Sens (0-14) pg/ml B-Natriuretic Peptide (0-100) pg/ml Total Protein (6.0-8.3) gm/dl Albumin (3.4-5.0) gm/dl Globulin (2.5-4.0) gm/dl Albumin/Globulin Ratio (0.9-2) Lipase (11-82) U/L TSH (0.300-4.500) uIu/ml Urine Color Urine Appearance (Clear) Urine pH (4.5-7.5) Ur Specific [place] (1.000-1.030) Urine Protein (Negative) Urine Glucose (UA) (Negative) Urine Ketones (Negative) Urine Blood (Negative) Urine Nitrite (Negative) Urine Bilirubin (Negative) Urine Urobilinogen (Negative) Ur Leukocyte Esterase (Negative) Urine RBC (0-4) /hpf Urine WBC (0-5) /hpf Ur Epithelial Cells (0-5) /lpf Urine Bacteria (Negative) Urine Mucus (None Prsent) Adenovirus (PCR) Not Detected (NotDetected) B. pertussis DNA (PCR) Not Detected (NotDetected) B.parapertussis DNA PCR Not Detected (NotDetected) C. pneumoniae DNA (PCR) Not Detected (NotDetected) Coronavirus OC43 (PCR) Not Detected (NotDetected) Coronavirus HKU1 (PCR) Not Detected (NotDetected) Coronavirus 229E (PCR) Not Detected (NotDetected) SARS-CoV-2 (PCR) Not Detected (NotDetected) Coronavirus NL63 (PCR) Not Detected (NotDetected) Human Metapneumovir PCR Not Detected (NotDetected) Influenza Type A (PCR) Not Detected (NotDetected) Influenza Type B (PCR) Not Detected (NotDetected) M. pneumoniae (PCR) Not Detected (NotDetected) Parainfluenza 1 (PCR) Not Detected (NotDetected) Parainfluenza 2 (PCR) Not Detected (NotDetected) Parainfluenza 3 (PCR) Not Detected (NotDetected) Parainfluenza 4 (PCR) Not Detected (NotDetected) RSV (PCR) Not Detected (NotDetected) Entero/Rhino (PCR) Not Detected (NotDetected) Administered Medications Sodium Chloride (Nss) 1,000 mls @ 125 mls/hr IV .Q8H ALYSA Stop: 01/01/24 23:14 Last Admin: 12/03/23 00:18 Dose: 80 mls/hr Documented By: DRAKE Discontinued Medications Magnesium Sulfate/Dextrose (Magnesium Sulfate / D5w) 1 gm in 100 mls @ 100 mls/hr IV Q1H ALYSA Stop: 12/03/23 01:50 Last Infusion: 12/03/23 03:41 Dose: Infused Documented By: Admin: 12/03/23 01:21 Dose: 100 mls/hr Documented By: Infusion: 12/03/23 01:18 Dose: Infused Documented By: Admin: 12/03/23 00:18 Dose: 100 mls/hr Documented By: DRAKE Imaging Data Radiologist's Impression: Head CT 12/02/23 23:09 Exam(s): CT HEAD Without Contrast EXAM: CT Head Without Intravenous Contrast CLINICAL HISTORY: Reason for exam: dizzy drake. TECHNIQUE: Axial computed tomography images of the head/brain without intravenous contrast. CTDI is 36.18 mGy and DLP is 625.8 mGy-cm. Automated exposure control was utilized for the study. A dose lowering technique was utilized adhering to the principles of ALARA. COMPARISON: No relevant prior studies available. FINDINGS: No acute intracranial hemorrhage. No midline shift or mass effect. The territorial hernandez-white matter differentiation is maintained throughout. Age-related cerebral volume loss. Periventricular and subcortical white matter hypoattenuation, consistent with chronic microangiopathy. The visualized orbits appear grossly unremarkable. The calvarium is intact. The visualized paranasal sinuses and mastoid air cells are grossly clear. IMPRESSION: No acute intracranial hemorrhage, midline shift, or mass effect. Electronically signed by: Zack Crump MD 12/03/23 00:09 AM Discharge Plan Visit Data Chief Complaint: Weakness Stated Complaint: Weakness, Dizziness ED Provider: Mandi Conteh Discharge Problem: Generalized weakness, Hypomagnesemia, Chronic pain in left foot, Ambulatory dysfunction Forms Stand Alone Forms: My [facility] Prescriptions Prescriptions: No Action atorvastatin 20 mg tablet 20 mg PO HS montelukast 10 mg tablet 10 mg PO QPM multivitamin Tablet 1 tab PO DAILY metformin 850 mg tablet 850 mg PO BIDM losartan 100 mg tablet 100 mg PO QAM fluticasone propionate 50 mcg/actuation spray,suspension 2 spray intranasal QAM coenzyme Q10 [CoQ-10] 100 mg Capsule 100 mg PO QAM metoprolol tartrate 25 mg tablet 25 mg PO BID dexlansoprazole [Dexilant] 60 mg capsule,biphase delayed releas 60 mg PO QAM cyanocobalamin (vitamin B-12) 1,000 mcg Capsule 1,000 mcg PO QPM venlafaxine 37.5 mg Capsule,Extended Release 24hr 37.5 mg PO DAILY Lumigan 0.01 % Drops 1 drp OPB HS zinc gluconate 50 mg Tablet 50 mg PO QPM magnesium oxide 400 mg (241.3 mg magnesium) Tablet 400 mg PO QAM albuterol sulfate 90 mcg/actuation Hfa Aerosol Inhaler 2 puff INHALATION Q4H PRN (Reason: Shortness Of Breath Or Wheezing) azelastine 137 mcg (0.1 %) Aerosol,[place] 2 spray INTRANASAL QPM Rx Instructions: administer into each nostril aspirin [Ecotrin Low Strength] 81 mg Tablet,Delayed Release (Dr/Ec) 81 mg PO QPM cholecalciferol (vitamin D3) 25 mcg (1,000 unit) Tablet 25 mcg PO QAM ascorbic acid (vitamin C) 500 mg Tablet 500 mg PO QAM oxybutynin chloride 10 mg tablet extended release 24hr 10 mg PO QAM fluticasone propion-salmeterol [Wixela Inhub] 250-50 mcg/dose blister with device 1 inh INHALATION BID ketoconazole 2 % cream 1 applic TOPICAL BID Rx Instructions: apply sparingly to affected area nifedipine 90 mg tablet extended release 24hr 90 mg PO QAM levothyroxine 100 mcg Tablet 100 mcg PO DAILYBB sodium chloride 1,000 mg tablet,soluble 1,000 mg PO AMHS potassium chloride [Klor-Con M10] 10 mEq tablet,ER particles/crystals 20 meq PO BID Referrals Referrals: Kumar Salinas MD [Outside Practitioners] -
[2023-12-02 23:36] LABS: Basophils # (auto) 0.04 K/uL (0.00-0.20); Basophils % (auto) 0.4 %; Eosinophils # (auto) 0.22 K/uL (0.00-0.50); Eosinophils % (auto) 1.9 %; Hematocrit (blood only) 41.9 % (37.0-47.0); Hemoglobin 13.9 g/dl (12.0-16.0); Immature Granulocytes # (auto) 0.05 K/uL (0.01-0.20); Immature Granulocytes % (auto) 0.4 %; Lymphocytes # (auto) 1.18 K/uL (1.20-3.40); Lymphocytes % (auto) 10.4 %; Mean Corpuscular Hemoglobin 29.5 pg (25.0-34.0); Mean Corpuscular Hgb Conc 33.2 g/dL (32.0-36.0); Monocytes # (auto) 1.04 K/uL (0.11-0.59); Monocytes % (auto) 9.2 %; Neutrophils # (auto) 8.82 K/uL (1.40-6.50); Neutrophils % (auto) 77.7 %; Platelet Count 315 K/uL (130-400); Red Blood Count 4.71 M/uL (4.20-5.40); White Blood Count 11.35 K/ul (4.8-10.8)
[2023-12-02 23:41] LABS: Appearance Urine Clear (Clear); Bilirubin Urine Negative (Negative); Blood Urine Trace-intact (Negative); Color Urine Yellow; Glucose Urine UA Negative (Negative); Ketones Urine Negative (Negative); Leukocyte Esterase Urine Trace (Negative); Nitrite Urine Negative (Negative); Protein Urine Negative (Negative); Specific Gravity Urine 1.015 (1.000-1.030); Urobilinogen Urine Negative (Negative)
[2023-12-02 23:43] LABS: Albumin Globulin Ratio 1.2 (0.9-2); BUN Creatinine Ratio 22.2 (10-20); Bilirubin,Total 0.3 mg/dl (0.2-1.0); Calcium 9.2 mg/dl (8.6-10.3); Est GFR (African American) 89.1 ml/min; Est GFR (Non-African American) 76.9 ml/min; Globulin 3.3 gm/dl (2.5-4.0); Potassium 3.7 mmol/L (3.5-5.1); Total Protein 7.3 gm/dl (6.0-8.3)
[2023-12-02 23:50] LABS: Troponin I High Sensitivity 8.7 pg/ml (0-14)
[2023-12-02 23:52] LABS: Bacteria Urine Negative (Negative); Epithelial Cell Urine 0-5 /lpf (0-5); Mucus Urine Present (None Prsent); RBC Urine 0-4 /hpf (0-4); WBC Urine 0-5 /hpf (0-5)
[2023-12-03] LABS: Thyroid Stimulating Hormone 1.064 uIu/ml (0.300-4.500)
--- NOTE | 2023-12-03 00:10 | CT Scan Report ---
Exam(s): CT HEAD Without Contrast EXAM: CT Head Without Intravenous Contrast CLINICAL HISTORY: Reason for exam: dizzy drake. TECHNIQUE: Axial computed tomography images of the head/brain without intravenous contrast. CTDI is 36.18 mGy and DLP is 625.8 mGy-cm. Automated exposure control was utilized for the study. A dose lowering technique was utilized adhering to the principles of ALARA. COMPARISON: No relevant prior studies available. FINDINGS: No acute intracranial hemorrhage. No midline shift or mass effect. The territorial hernandez-white matter differentiation is maintained throughout. Age-related cerebral volume loss. Periventricular and subcortical white matter hypoattenuation, consistent with chronic microangiopathy. The visualized orbits appear grossly unremarkable. The calvarium is intact. The visualized paranasal sinuses and mastoid air cells are grossly clear. IMPRESSION: No acute intracranial hemorrhage, midline shift, or mass effect. Electronically signed by: Zack Crump MD 12/03/23 00:09 AM
[2023-12-03] MEDS: MAGNESIUM SULFATE / D5W 1 GM/100 ML BAG IV SCH ×2 (00:18→01:21)
[2023-12-03 01:27] LABS: Adenovirus PCR Not Detected (NotDetected); Bordetella parapertussis PCR Not Detected (NotDetected); Bordetella pertussis PCR Not Detected (NotDetected); Chlamydia pneumoniae PCR Not Detected (NotDetected); Coronavirus 229E PCR Not Detected (NotDetected); Coronavirus CoV-2 (COVID19)PCR Not Detected (NotDetected); Coronavirus HKU1 PCR Not Detected (NotDetected); Coronavirus NL63 PCR Not Detected (NotDetected); Coronavirus OC43PCR Not Detected (NotDetected); Human Metapneumovirus PCR Not Detected (NotDetected); Influenza A PCR Not Detected (NotDetected); Influenza B PCR Not Detected (NotDetected); Mycoplasma pneumoniae PCR Not Detected (NotDetected); Parainfluenza Virus 1 PCR Not Detected (NotDetected); Parainfluenza Virus 2 PCR Not Detected (NotDetected); Parainfluenza Virus 3 PCR Not Detected (NotDetected); Parainfluenza Virus 4 PCR Not Detected (NotDetected); Respiratory Syncytial VirusPCR Not Detected (NotDetected); Rhinovirus/Enterovirus PCR Not Detected (NotDetected)
[2023-12-03] MEDS ORDERED: MAGNESIUM SULFATE / D5W 1 GM/100 ML BAG IV ONE (04:30)
[2023-12-03] MEDS ORDERED: POLYETHYLENE (MIRALAX) 17 GM PACK PO PRN (06:12)
[2023-12-03] MEDS ORDERED: DEXTROSE 50% 50 ML SYRINGE IV PRN (06:12)
[2023-12-03] MEDS ORDERED: GLUCOSE 10 TAB/TUBE PO PRN (06:12)
[2023-12-03] MEDS ORDERED: GLUCAGON FOR INJ 1 MG VIAL SQ PRN (06:12)
[2023-12-03] MEDS ORDERED: ALBUTEROL HFA 8 GM INHALER INH PRN (06:12)
[2023-12-03] MEDS ORDERED: GLUCOSE 40% GEL 15 GM TUBE PO PRN (06:12)
[2023-12-03] MEDS ORDERED: NITROGLYCERIN SL 0.4 MG/TAB TAB SL PRN (06:12)
[2023-12-03] MEDS ORDERED: CARBOHYDRATES FOR HYPOGLYCEMIA PO PRN (06:12)
[2023-12-03] MEDS ORDERED: ACETAMINOPHEN 325 MG TAB PO PRN (06:12)
--- NOTE | 2023-12-03 06:19 | History & Physical Report ---
Date of Service December 03, 2023 Assessment & Plan (1) Near syncope: Plan: 83-year-old female with past med history significant for type 2 diabetes, hypothyroidism, hyperlipidemia, obstructive sleep apnea, mild persistent asthma, paroxysmal atrial fibrillation, hypertension, history of CAD, GERD, primary open-angle glaucoma, depression, presents with weakness and near syncope. Patient was recently in the hospital for left ankle sprain and syncope. Syncope thought to be from vasovagal. Echo showed normal EF. With grade 2 diastolic dysfunction and mild mitral regurgitation. Was seen by cardiology and thought syncope mostly vasovagal. Seen by orthopedics for left ankle pain and was thought most likely sprain. Was given short-term Celebrex and orthotics recommended cam boot. She was discharged to rehab. Patient states she was in rehab for 1 week. She followed with orthopedics clinic and she was given a shot to the left ankle. Last admission chlorthalidone was stopped for hyponatremia and she was placed on nifedipine 60 mg at discharge. She followed with PCP and nifedipine was increased to 90 mg. Today while she was ambulating with walker suddenly felt lightheaded and dizzy and felt like passing out but her significant other held her. She sat in the kitchen chairshe thinks she might have passed out for a moment. EMS was called and brought her here. In the ER labs showed magnesium of 1.0. 2 g of IV magnesium was given and IV fluids were given in ER. Patient still having some ambulatory dysfunction so we called for admission. Patient says still she has some pain in the left ankle. She forgot to bring her boots while coming to the hospital. Denies any headache. No runny nose or sore throat. No cough. Appetite is okay. Eating and drinking okay. No chest pain or shortness of breath. No nausea. No abdominal pain. Normal bowel and bladder movements. Near syncope Hypomagnesia Magnesium 1.0 Last admission syncope work was done and thought to be vasovagal Replace magnesium Will check orthostatics Gentle fluids Follow repeat labs Monitoring med/tele Hypomagnesia Replacing Follow labs Left ankle sprain Recently received shot to ankle by Ortho On boot PT OT follow-up appointment with Ortho Ambulate dysfunction PT OT Hypothyroidism Last admission Synthroid was cut back to 88 but seems back on 100 mcg TSH is okay Needs close follow-up with PCP Hyponatremia Last admission chlorthalidone was stopped But seems in rehab she was placed on salt tablets Patient does not know that she is on salt tablets Needs monitoring and follow-up Hypertension Currently on losartan, metoprolol and nifedipine Chlorthalidone was stopped last admission Needs close monitor Seems potassium supplement stopped at time of discharge Patient seems still on potassium supplements will hold for now as patient stopped chlorthalidone May need staff message to PCP for any change in medications as patient seems to be not sure about her medication Obstructive sleep apnea CPAP nightly Diabetes Hold metformin Insulin sliding scale Will monitor Mild persistent asthma Currently stable Continue home inhalers Paroxysmal atrial fibrillation Seems 1 episode in 2011 On aspirin and beta-monico Depression On venlafaxine History of CAD S/p stent in 1999 On aspirin statin and beta-monico Primary open-angle glaucoma Continue home eyedrops DVT prophylaxis SCDs and heparin subcu Disposition Med/tele Full code History of Present Illness Chief Complaint: Weakness, near syncope Primary Care Provider: NO PCP 83-year-old female with past med history significant for type 2 diabetes, hypothyroidism, hyperlipidemia, obstructive sleep apnea, mild persistent asthma, paroxysmal atrial fibrillation, hypertension, history of CAD, GERD, primary open-angle glaucoma, depression, presents with weakness and near syncope. Patient was recently in the hospital for left ankle sprain and syncope. Syncope thought to be from vasovagal. Echo showed normal EF. With grade 2 diastolic dysfunction and mild mitral regurgitation. Was seen by cardiology and thought syncope mostly vasovagal. Seen by orthopedics for left ankle pain and was thought most likely sprain. Was given short-term Celebrex and orthotics recommended cam boot. She was discharged to rehab. Patient states she was in rehab for 1 week. She followed with orthopedics clinic and she was given a shot to the left ankle. Last admission chlorthalidone was stopped for hyponatremia and she was placed on nifedipine 60 mg at discharge. She followed with PCP and nifedipine was increased to 90 mg. Today while she was ambulating with walker suddenly felt lightheaded and dizzy and felt like passing out but her significant other held her. She sat in the kitchen chairshe thinks she might have passed out for a moment. EMS was called and brought her here. In the ER labs showed magnesium of 1.0. 2 g of IV magnesium was given and IV fluids were given in ER. Patient still having some ambulatory dysfunction so we called for admission. Patient says still she has some pain in the left ankle. She forgot to bring her boots while coming to the hospital. Denies any headache. No runny nose or sore throat. No cough. Appetite is okay. Eating and drinking okay. No chest pain or shortness of breath. No nausea. No abdominal pain. Normal bowel and bladder movements. Past medical history. As mentioned above. Past surgical history. Bilateral breast cyst removed. Colonoscopy. Coronary artery dilatation. EGD. Knee arthroscopy. Laparoscopic appendectomy. Tonsillectomy. Cataract surgery. Repair of left rotator cuff. Social history. No smoking. Alcohol rarely. No drug use. Family history. Mother had allergies. Asthma. Breast cancer. Lung cancer. Father has allergies. CHF. Paternal grandmother had glaucoma. Allergies Allergy/AdvReac Type Severity Reaction Status Date / Time Penicillins Allergy Mild . Verified 11/15/23 13:55 broccoli Allergy Unknown GAS Unverified 11/15/23 13:55 grapefruit Allergy Unknown BRONCHITIS Unverified 11/15/23 13:55 mold Allergy Unknown asthma Verified 11/15/23 13:55 symptoms orange Allergy Unknown BRONCHITIS Unverified 11/15/23 13:55 paroxetine Allergy Unknown ANAPHYLAXIS Unverified 11/15/23 13:55 pollen extracts Allergy Unknown asthma Verified 11/15/23 13:55 symptoms vasquez AdvReac Unknown gas and Verified 12/03/23 06:17 bloating with consuption of green or kidneys beans crab AdvReac Unknown diarrhea Verified 11/15/23 13:55 peanut AdvReac Unknown gas/bloatin Unverified 11/15/23 13:55 g Home Medications Medication Instructions Recorded Confirmed Type atorvastatin 20 mg tablet 20 mg PO HS 08/22/19 12/03/23 History coenzyme Q10 100 mg capsule 100 mg PO [facility] 08/22/19 12/03/23 History (CoQ-10) cyanocobalamin (vitamin B-12) 1,000 mcg PO QPM 08/22/19 12/03/23 History 1,000 mcg capsule dexlansoprazole 60 mg 60 mg PO QAM 08/22/19 12/03/23 History capsule,biphase delayed release (Dexilant) fluticasone propionate 50 2 spray intranasal QA 08/22/19 12/03/23 History mcg/actuation nasal spray,suspension losartan 100 mg tablet 100 mg PO QAM 08/22/19 12/03/23 History metformin 850 mg tablet 850 mg PO BIDM 08/22/19 12/03/23 History metoprolol tartrate 25 mg tablet 25 mg PO BID 08/22/19 12/03/23 History montelukast 10 mg tablet 10 mg PO QPM 08/22/19 12/03/23 History multivitamin 1 tab PO DAILY 08/22/19 12/03/23 History venlafaxine 37.5 mg 37.5 mg PO DAILY 08/24/19 12/03/23 History capsule,extended release 24 hr bimatoprost 0.01 % eye drops 1 drp OPB HS 05/08/22 12/03/23 History (Sumeet) albuterol sulfate 90 mcg/actuation 2 puff inhalation Q4H PRN 10/23/23 12/03/23 History aerosol inhaler Shortness Of Breath Or Wheezing ascorbic acid (vitamin C) 500 mg 500 mg PO QAM 10/23/23 12/03/23 History tablet aspirin 81 mg tablet,delayed 81 mg PO QPM 10/23/23 12/03/23 History release (Ecotrin Low Strength) azelastine 137 mcg (0.1 %) nasal 2 spray intranasal QPM 10/23/23 12/03/23 History spray aerosol cholecalciferol (vitamin D3) 25 25 mcg PO QAM 10/23/23 12/03/23 History mcg (1,000 unit) tablet fluticasone 250 mcg-salmeterol 50 1 inh inhalation BID 10/23/23 12/03/23 History mcg/dose blistr powdr for inhalation (Wixela Inhub) magnesium oxide 400 mg (241.3 mg 400 mg PO QAM 10/23/23 12/03/23 History magnesium) tablet oxybutynin chloride 10 mg 10 mg PO QAM 10/23/23 12/03/23 History tablet,extended release 24 hr zinc gluconate 50 mg tablet 50 mg PO QPM 10/23/23 12/03/23 History ketoconazole 2 % topical cream 1 applic topical BID 12/02/23 12/02/23 History levothyroxine 100 mcg tablet 100 mcg PO DAILYBB 12/02/23 12/03/23 History nifedipine 90 mg tablet,extended 90 mg PO QAM 12/02/23 12/03/23 History release 24 hr sodium chloride 1,000 mg soluble 1,000 mg PO AMHS 12/02/23 12/03/23 History tablet potassium chloride 10 mEq 20 meq PO BID 12/03/23 12/03/23 History tablet,extended release(part/cryst) (Cristofer Torres) Past Med/Surg History Medical History Right rotator cuff tear Right knee DJD CAD (coronary artery disease) stent in 1999 T2DM (type 2 diabetes mellitus) HTN (hypertension) HLD (hyperlipidemia) PAF (paroxysmal atrial fibrillation) DEMARIO (obstructive sleep apnea) Asthma CKD (chronic kidney disease) stage 3, GFR 30-59 ml/min Primary open angle glaucoma GERD (gastroesophageal reflux disease) Hypothyroidism History of placement of stent in LAD coronary artery Sleep apnea Surgical History History of rotator cuff surgery History of cataract extraction History of arthroscopic knee surgery History of tonsillectomy History of appendectomy Stented coronary artery Family History Father CHF (congestive heart failure) Mother Cancer Social History Smoking Status: Never smoker Hx Alcohol Use: No Hx Substance Use: No Preferred Language: Bolivian Communication Ability: Effective Sandwich Hand Required: No Beliefs That Will Affect Care: None marital status: Life Partner Current Living Situation: Spouse Current Living Situation Comment: s/o Feels Safe at Home: Yes Assistive Devices: Cane, CPAP and Walker Review of Systems Review of Systems: All systems reviewed & are unremarkable except as noted in HPI & below Physical Exam Physical Exam: General- Not in distress Head- atraumatic Eyes- PERRL. ENT- oropharynx clear Neck- supple, no JVD. Lungs- clear to auscultation, no wheezing or crackles. Heart- regular rhythm; no murmur, no gallop. Abdomen- normal bowel sounds, soft, nontender, no distension. Extremities- no pretibial edema, no erythema seen Neuro- alert, oriented x 3; PERRL,no facial palsy; no dysarthria; moves extremities. Skin- warm & dry Results & Data Results & Data Vital Signs (Past 12 Hours) Vital Signs Temp Pulse Resp BP Pulse Ox O2 Del Method 12/03/23 04:00 75 20 137/59 L 91 12/03/23 03:39 75 12/03/23 03:00 69 20 141/61 H 92 12/03/23 02:00 76 18 144/70 H 94 12/03/23 01:01 75 22 160/66 H 93 12/03/23 00:37 69 14 157/79 H 93 12/03/23 00:00 73 20 96 12/02/23 23:25 76 12/02/23 23:03 36.9 C 71 16 151/66 H 97 Room Air Diagnostic Findings Laboratory Results WBC 11.35 K/ul (4.8-10.8) H 12/02/23 23:11 RBC 4.71 M/uL (4.20-5.40) 12/02/23 23:11 Hgb 13.9 g/dl (12.0-16.0) 12/02/23 23:11 Hct 41.9 % (37.0-47.0) 12/02/23 23:11 MCV 89.0 fL (80.0-100.0) 12/02/23 23:11 MCH 29.5 pg (25.0-34.0) 12/02/23 23:11 MCHC 33.2 g/dL (32.0-36.0) 12/02/23 23:11 RDW Std Deviation 49.0 fL (36.4-46.3) H 12/02/23 23:11 RDW Coeff of Stoney 15.0 % (11.5-14.5) H 12/02/23 23:11 Plt Count 315 K/uL (130-400) 12/02/23 23:11 MPV 11.0 fL (9.4-12.4) 12/02/23 23:11 Immature Gran % (Auto) 0.4 % 12/02/23 23:11 Neut % (Auto) 77.7 % 12/02/23 23:11 Lymph % (Auto) 10.4 % 12/02/23 23:11 [place] % (Auto) 9.2 % 12/02/23 23:11 Eos % (Auto) 1.9 % 12/02/23 23:11 Baso % (Auto) 0.4 % 12/02/23 23:11 Neut # (Auto) 8.82 K/uL (1.40-6.50) H 12/02/23 23:11 Lymph # (Auto) 1.18 K/uL (1.20-3.40) L 12/02/23 23:11 [place] # (Auto) 1.04 K/uL (0.11-0.59) H 12/02/23 23:11 Eos # (Auto) 0.22 K/uL (0.00-0.50) 12/02/23 23:11 Baso # (Auto) 0.04 K/uL (0.00-0.20) 12/02/23 23:11 Immature Gran # (Auto) 0.05 K/uL (0.01-0.20) 12/02/23 23:11 Sodium 139 mmol/L (136-145) 12/02/23 23:11 Potassium 3.7 mmol/L (3.5-5.1) 12/02/23 23:11 Chloride 102 mmol/L (98-107) 12/02/23 23:11 Carbon Dioxide 27 mmol/L (21-32) 12/02/23 23:11 Anion Gap 10 (3-11) 12/02/23 23:11 BUN 16 mg/dl (6-23) 12/02/23 23:11 Creatinine 0.72 mg/dl (0.6-1.2) 12/02/23 23:11 Est Cr Clr Drug Dosing 55.0 ml/min 12/02/23 23:11 Est GFR ( Amer) 89.1 ml/min 12/02/23 23:11 Est GFR (Non-Af Amer) 76.9 ml/min 12/02/23 23:11 BUN/Creatinine Ratio 22.2 (10-20) H 12/02/23 23:11 Glucose 150 mg/dl (70-99(Fasting)) H 12/02/23 23:11 POC Glucose 145 mg/dl (70-99) H 12/02/23 23:19 Calcium 9.2 mg/dl (8.6-10.3) 12/02/23 23:11 Magnesium 1.0 mg/dl (1.7-2.4) L 12/02/23 23:11 Total Bilirubin 0.3 mg/dl (0.2-1.0) 12/02/23 23:11 AST 10 U/L (13-39) L 12/02/23 23:11 ALT 7 U/L (7-52) 12/02/23 23:11 Alkaline Phosphatase 64 U/L (34-104) 12/02/23 23:11 Troponin I High Sens 8.7 pg/ml (0-14) 12/02/23 23:11 B-Natriuretic Peptide 269 pg/ml (0-100) H 12/02/23 23:11 Total Protein 7.3 gm/dl (6.0-8.3) 12/02/23 23:11 Albumin 4.0 gm/dl (3.4-5.0) 12/02/23 23:11 Globulin 3.3 gm/dl (2.5-4.0) 12/02/23 23:11 Albumin/Globulin Ratio 1.2 (0.9-2) 12/02/23 23:11 Lipase 11 U/L (11-82) 12/02/23 23:11 TSH 1.064 uIu/ml (0.300-4.500) 12/02/23 23:11 Urine Color Yellow 12/02/23 23:27 Urine Appearance Clear (Clear) 12/02/23 23:27 Urine pH 7.0 (4.5-7.5) 12/02/23 23:27 Ur Specific [place] 1.015 (1.000-1.030) 12/02/23 23:27 Urine Protein Negative (Negative) 12/02/23 23:27 Urine Glucose (UA) Negative (Negative) 12/02/23 23:27 Urine Ketones Negative (Negative) 12/02/23 23:27 Urine Blood Trace-intact (Negative) H 12/02/23 23:27 Urine Nitrite Negative (Negative) 12/02/23 23:27 Urine Bilirubin Negative (Negative) 12/02/23 23: Urine Urobilinogen Negative (Negative) 12/02/23 23:27 Ur Leukocyte Esterase Trace (Negative) H 12/02/23 23:27 Urine RBC 0-4 /hpf (0-4) 12/02/23 23:27 Urine WBC 0-5 /hpf (0-5) 12/02/23 23:27 Ur Epithelial Cells 0-5 /lpf (0-5) 12/02/23 23:27 Urine Bacteria Negative (Negative) 12/02/23 23:27 Urine Mucus Present (None Prsent) A 12/02/23 23:27 Adenovirus (PCR) Not Detected (NotDetected) 12/03/23 00:36 B. pertussis DNA (PCR) Not Detected (NotDetected) 12/03/23 00:36 B.parapertussis DNA PCR Not Detected (NotDetected) 12/03/23 00:36 C. pneumoniae DNA (PCR) Not Detected (NotDetected) 12/03/23 00:36 Coronavirus OC43 (PCR) Not Detected (NotDetected) 12/03/23 00:36 Coronavirus HKU1 (PCR) Not Detected (NotDetected) 12/03/23 00:36 Coronavirus 229E (PCR) Not Detected (NotDetected) 12/03/23 00:36 SARS-CoV-2 (PCR) Not Detected (NotDetected) 12/03/23 00:36 Coronavirus NL63 (PCR) Not Detected (NotDetected) 12/03/23 00:36 Human Metapneumovir PCR Not Detected (NotDetected) 12/03/23 00:36 Influenza Type A (PCR) Not Detected (NotDetected) 12/03/23 00:36 Influenza Type B (PCR) Not Detected (NotDetected) 12/03/23 00:36 M. pneumoniae (PCR) Not Detected (NotDetected) 12/03/23 00:36 Parainfluenza 1 (PCR) Not Detected (NotDetected) 12/03/23 00:36 Parainfluenza 2 (PCR) Not Detected (NotDetected) 12/03/23 00:36 Parainfluenza 3 (PCR) Not Detected (NotDetected) 12/03/23 00:36 Parainfluenza 4 (PCR) Not Detected (NotDetected) 12/03/23 00:36 RSV (PCR) Not Detected (NotDetected) 12/03/23 00:36 Entero/Rhino (PCR) Not Detected (NotDetected) 12/03/23 00:[address] 12/02/23 23:09 Exam(s): CT HEAD Without Contrast EXAM: CT Head Without Intravenous Contrast CLINICAL HISTORY: Reason for exam: dizzy drake. TECHNIQUE: Axial computed tomography images of the head/brain without intravenous contrast. CTDI is 36.18 mGy and DLP is 625.8 mGy-cm. Automated exposure control was utilized for the study. A dose lowering technique was utilized adhering to the principles of ALARA. COMPARISON: No relevant prior studies available. FINDINGS: No acute intracranial hemorrhage. No midline shift or mass effect. The territorial hernandez-white matter differentiation is maintained throughout. Age-related cerebral volume loss. Periventricular and subcortical white matter hypoattenuation, consistent with chronic microangiopathy. The visualized orbits appear grossly unremarkable. The calvarium is intact. The visualized paranasal sinuses and mastoid air cells are grossly clear. IMPRESSION: No acute intracranial hemorrhage, midline shift, or mass effect. Electronically signed by: Zack Crump MD 12/03/23 00:09 AM ECG Additional Comments: ECG. Normal sinus rhythm with a rate of 72. Nonspecific ST abnormalities. No significant change was found. Code Status & VTE Plan VTE Prophylaxis Plan VTE Prophylaxis will be ordered: Yes
[2023-12-03] MEDS: LEVOTHYROXINE SODIUM 100 MCG TABLET PO SCH (06:30)
[2023-12-03] MEDS: SODIUM CHLORIDE 0.9% 1,000 ML IV SCH ×2 (07:00→20:00)
--- NOTE | 2023-12-03 07:34 | XRay Report ---
XR chest 1V portable HISTORY: Shortness of breath. COMPARISON: Chest 10/23/2023. FINDINGS: No pneumothorax. No pleural effusions. The heart remains mildly enlarged. Mitral annulus ca lcifications again noted. Small left basilar linear density favors subsegmental atelectasis or scarri ng. No new focal lung consolidations to suggest pneumonia. Stable central pulmonary vascular congesti on without overt edema. No acute fractures. Degenerative changes within the shoulders. IMPRESSION: 1. No significant change compared to the prior study. 2. Cardiomegaly and central pulmonary vascular congestion persists. ACT 112: Negative or not required by law. Electronically signed by: Charlie Atkinson M.D. 12/03/2023 7:33 AM
[2023-12-03 08:00] LABS: Basophils # (auto) 0.04 K/uL (0.00-0.20); Basophils % (auto) 0.4 %; Eosinophils # (auto) 0.15 K/uL (0.00-0.50); Eosinophils % (auto) 1.4 %; Hematocrit (blood only) 40.5 % (37.0-47.0); Immature Granulocytes # (auto) 0.04 K/uL (0.01-0.20); Immature Granulocytes % (auto) 0.4 %; Lymphocytes # (auto) 1.93 K/uL (1.20-3.40); Lymphocytes % (auto) 18.2 %; Mean Corpuscular Hemoglobin 28.5 pg (25.0-34.0); Mean Corpuscular Hgb Conc 32.1 g/dL (32.0-36.0); Mean Corpuscular Volume 88.8 fL (80.0-100.0); Mean Platelet Volume 10.8 fL (9.4-12.4); Monocytes % (auto) 10.4 %; Neutrophils # (auto) 7.36 K/uL (1.40-6.50); Neutrophils % (auto) 69.2 %; Platelet Count 331 K/uL (130-400); RDW Standard Deviation 49.6 fL (36.4-46.3); Red Blood Count 4.56 M/uL (4.20-5.40); White Blood Count 10.62 K/ul (4.8-10.8)
[2023-12-03 08:13] LABS: Calcium 8.6 mg/dl (8.6-10.3); Creatinine Clr Calc Pharmacy 68.3 ml/min; Est GFR (African American) 98.1 ml/min; Est GFR (Non-African American) 84.6 ml/min; Magnesium 1.8 mg/dl (1.7-2.4); Potassium 3.1 mmol/L (3.5-5.1)
[2023-12-03] MEDS ORDERED: NON-FORMULARY MEDICATION (Coenzyme Q10 [Coq-10] 100 mg Capsule) PO SCH (09:00)
[2023-12-03] MEDS ORDERED: POTASSIUM CHLORIDE CRTAB 20 MEQ TABCR PO STA (09:12)
[2023-12-03] MEDS: INSULIN ASPART PER UNIT CHARGE SC SCH ×4 (09:38→20:55)
[2023-12-03] MEDS: FLUTICASONE/VILANTEROL 200/25MCG 14 PUFFS/INHALER INH SCH (10:36)
[2023-12-03] MEDS: ASCORBIC ACID 500 MG TAB PO SCH (10:36)
[2023-12-03] MEDS: CHOLECALCIFEROL 1,000 UNITS 25 MCG TAB PO SCH (10:36)
[2023-12-03] MEDS: FLUTICASONE PROPIONATE NA SPR 16 GM BTL SCH (10:36)
[2023-12-03] MEDS: SODIUM CHLORIDE 1 GM TABLET PO SCH ×2 (10:37→20:53)
[2023-12-03] MEDS: MULTIVITAMIN TAB PO SCH (10:37)
[2023-12-03] MEDS: VENLAFAXINE HCL XR 37.5 MG CAPXR PO SCH (10:37)
[2023-12-03] MEDS: MAGNESIUM OXIDE 400 MG TAB PO SCH (10:37)
[2023-12-03] MEDS: METOPROLOL TARTRATE 25 MG TAB PO SCH ×2 (10:37→20:53)
[2023-12-03] MEDS: NIFEdipine EXTENDED REL 30 MG TABCR PO SCH (10:37)
[2023-12-03] MEDS: OXYBUTYNIN CHLORIDE XL 5 MG TABCR PO SCH (10:37)
[2023-12-03] MEDS: LOSARTAN POTASSIUM 50 MG TAB PO SCH (10:37)
[2023-12-03] MEDS: HEPARIN SOD 5,000 UNIT/0.5 ML VIAL SQ SCH ×2 (10:37→20:53)
[2023-12-03] MEDS: PANTOprazole 40 MG TAB PO SCH (10:37)
--- NOTE | 2023-12-03 11:33 | Electrocardiogram Report ---
Test Reason : Blood Pressure : / mmHG Vent. Rate : 072 BPM Atrial Rate : 072 BPM P-R Int : 170 ms QRS Dur : 080 ms QT Int : 382 ms P-R-T Axes : 064 -24 050 degrees QTc Int : 418 ms Normal sinus rhythm Nonspecific ST and T wave abnormality Abnormal ECG When compared with ECG of 26-OCT-2023 06:08, No significant change was found Confirmed by Fred East ([id number]) on 12/03/2023 11:32:56 AM Referred By: REFERRED SELF Confirmed By:Fred East
--- NOTE | 2023-12-03 12:14 | Communication Note ---
Date of Service: December 03, 2023 Patient was seen and examined at bedside as a follow-up of near syncope. Per patient, she was just back from her bathroom to her kitchen and was collecting her medications to take them when she started feeling of lightheadedness and dizziness but no nausea/dry heaves/warmth/chest pain/palpitation. She was lowered down to kitchen chair by her . Labs reviewed, potassium repleted. Otherwise fairly WNL. Respiratory viral panel negative. CXR with no significant change from the prior. CT head with no acute finding. Of note, patient also had similar episode which was deemed vasovagal end of September. Troponin noted to be elevated, EKG with no acute ST or T changes. Patient with no chest pain. Trend troponin, telemetry monitoring, EKG as needed with chest pain. Cardiology consult for recurrent syncope and troponin elevation. Full progress note will follow tomorrow.
--- OUTSIDE RECORDS SUMMARY | 2023-12-03 12:58 | External Medical Summary | Summary of Care ---
Author Name Unknown Organization [facility] Address [address] [address] Phone [phone] Care Team Providers Care Medical Record Technician Name Role Phone Kumar Salinas MD Primary Care Provider [phone] Encounter Details Date Type Department Care Team (Late st Contact Info) Description 11/17/2023 2:15 PM EST Immunization Ancillary [address] [place] [address] [facility] Covid19 Vaccine [address] [place] [address] Arrived Allergies Active Allergy Reactions Criticality Noted Date Comments Crab (Diagnostic) 04/05/2018 Food (See Comments) 07/24/2015 Broccoli, beans, cauliflower - cause gas Grapefruit, oranges - cause bronchitis - positive skin test Paroxetine Hydrochloride 04/03/2009 Penicillins 04/03/2009 Blisters on hands Peanut-Containing Drug Products Abdominal pain Medium 07/24/2015 Gas, bloating documented as of this encounter (statuses as of 11/17/2023) Medications Medication Sig Dispensed Refills Start Date [...] 06/28/2019 Active triamcinolone acetonide (ARISTOCORT) 0.1 % creamIndications:Int rinsic eczema Apply topically to affected area 2 times a day. To affected area. 15 g 5 01/11/2020 Active Magnesium Oxide 400 (240 Mg) MG Tablet Take 1 Tablet by mouth in the morning. 0 Active zinc gluconate 50 MG Tablet Take 1 Tablet by mouth in the morning. 0 Active OneTouch Delica Lancets 30GIndications:DM type 2, 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% ([facility]) TEST BLOOD SUGAR ONCE DAILY DIRECTED DX [...] 250-50 MCG/DOSE Inhalation Aerosol Powder Breath Activated (Fluticasone-[place]met[place] rol) INHALE 1 PUFF BY MOUTH 2 TIMES A DAY. 180 Each 3 01/12/2022 Active Lumigan 0.01 % Ophthalmic Solution Instill 1 Drop into both eyes at bedtime. 0 03/27/2022 Active Ketoconazole 2 % External Cream APPLY SPARINGLY TO AFFECTED AREA TWICE A DAY 0 05/18/2022 Active Nystatin 815921 UNIT/GM External CreamIndications:Can dida infection Apply to affected area 2-3 times daily for 5 days 45 g 1 09/17/2022 Active Nystatin 608587 UNIT/GM External Powder (Nystop)Indications: Brunilda infection Apply topically to affected area 2 times a day . 30 g 1 09/17/2022 Active Fluticasone-Salmeter ol 250-50 MCG/ACT Inhalation Aerosol Powder Breath Activated (Wixela Inhub) Inhale 1 Puff by mouth in the morning and 1 Puff before bedtime. 180 Each 3 01/11/2023 Active Fluticasone Propionate 50 MCG/ACT Nasal Suspension (Flonase) Administer 2 Sprays into each nostril every morning. 48 mL 3 01/20/2023 Active Montelukast Sodium 10 MG Oral Tablet (Singulair)Indicatio ns:Other seasonal allergic rhinitis Take 1 Tablet by mouth in the morning. 90 Tablet 3 04/07/2023 Active Atorvastatin Calcium 20 MG Oral Tablet (Lipitor)Indications :Paroxysmal atrial fibrillation (HCC),Dyslipidemia, goal LDL below 100,Atherosclerosis of [place] coronary artery of [place] heart without angina pectoris TAKE ONE PILL BY MOUTH AT BEDTIME 90 Tablet 1 06/13/2023 Active metFORMIN HCl 850 MG Oral Tablet (Glucophage)Indicati ons:Type 2 diabetes mellitus with hemoglobin A1c goal of less than 7.0% ([facility]) TAKE 1 TABLET BY MOUTH TWICE A DAY WITH BREAKFAST AND DINNER 180 Tablet 1 07/16/2023 Active Oxybutynin Chloride ER 10 MG Oral Tablet Extended Release 24 Hour (Ditropan XL) Take 1 Tablet by mouth in the morning. 90 Tablet 3 07/16/2023 Active Losartan Potassium 100 MG Oral Tablet (Cozaar)Indications: Benign hypertension with CKD (chronic kidney disease), stage II,Essential hypertension with goal blood pressure less than 140/90,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) TAKE 1 TABLET BY MOUTH EVERY DAY IN THE MORNING 90 Tablet 1 10/11/2023 Active Metoprolol Tartrate 25 MG Oral Tablet (Lopressor)Indicatio ns:Atherosclerosis of [place] coronary artery of [place] heart without angina pectoris,Paroxysmal atrial fibrillation (HCC),Essential hypertension with goal blood pressure less than 140/90 TAKE 1 TABLET BY MOUTH TWICE A DAY 180 Tablet 1 11/01/2023 Active Sodium Chloride 1 GM Oral Tablet Take 1 Tablet by mouth in the morning and 1 Tablet before bedtime. 0 11/07/2023 Active Levothyroxine Sodium 100 MCG Oral Tablet (Levoxyl)Indications :Acquired hypothyroidism TAKE 1 TABLET BY MOUTH DAILY AT LEAST 30 MINUTES PRIOR TO BREAKFAST OR OTHER MEDICATION 90 Tablet 1 11/17/2023 Active NIFEdipine ER Osmotic Release 90 MG Oral Tablet Extended Release 24 Hour (Procardia XL)Indications:Benig n hypertension with CKD (chronic kidney disease), stage II,Primary hypertension Take 1 Tablet by mouth in the morning. 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), stage II 04/01/2021 Type 2 diabetes mellitus wit h other [...] ase with esophagitis 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 Atherosclerosis of [place] co ronary artery of [place] heart without angina pectoris Adjustment disorder with depressed mood documented as of this encounter (statuses as of 11/17/2023) Resolved Problems Problem Noted Date Diagnosed Date Resolved Date Type 2 diabetes mellitus wit h stage 3 chronic kidney disease, without long-term current use of insulin 05/22/2019 04/01/2021 CKD (chronic kidney disease), stage III 03/08/2018 12/16/2018 Overview: Per CKD protocol #1 BMI 39.0-39.9,adult 08/30/2017 09/12/20 18 Overview: 208 lbs [place] 08/27/2017 07/18/2018 Hypothyroidism 10/12/2016 10/12/2016 Postmenopausal atrophic vaginitis 07/27/2016 10/12/2016 Family history of breast cancer in mother 05/13/2016 07/18/2018 Postmenopausal atrophic vaginitis 05/13/2016 07/24/2019 Overview: Noted on scanned records. Blepharitis 03/19/2015 07/18/2018 Pseudophakia 03/19/2015 07/18/2018 Atrial fibrillation 01/17/2013 01/14/20 17 Subjective tinnitus 09/23/2012 07/18/20 18 Asthma, moderate persistent 09/23/2012 09/23/2012 Genetic Sleep Disorder Resea [facility] Other*[id number] 09/12/2012 06/25/2016 Obesity, Class II, BMI 35-39 [...] as of this encounter (statuses as of 11/17/2023) Immunizations Name Administration Dates Next Due COVID-19 mRNA, LNP-s, No Pre serve, 2-Dose Series (Moderna) 03/15/2021,02/16/2021 COVID-19, MRNA-LNP, 23-24, P F, 30 MCG/0.3 mL, 12 YRS AND ABOVE, IM (Pathflow-Comirnaty) 11/17/2023 COVID-19, mRNA, LNP-s, PF, B ooster, 100mcg/0.5mg (Moderna) 12/02/2021 Diptheria/Tetanus (Adult) 03/22/2017 Pneumococcal Conjugate Vacc, 13 Valent (Prevnar) 04/23/2015 Pneumococcal Polysaccharide PPV23 (Pneumovax) 11/29/2005 Season Influenza, Quad, PF, Adjuvanted, 65+ Yrs, IM (FLUAD) 08/13/2020 Seasonal Influenza, PF, 6 M & above, IM , (FluLaval or Fluzone) 08/29/2019,10/03/2018,09/29/2017 Seasonal Influenza, Quadriva lent Hd (Fluzone [...] Care Team (Late st Contact Info) Description 02/23/2024 2:00 PM EDT Office Visit Family Medicine [address] [place] [phone] Linda Smith MD [address] [place] [address] [place] [address] Health Maintenance Due Date Last Done Comments Zoster Vaccines (1 of 2) 1989 Hepatitis B (1 of 3 - Risk 3-dose series) 1999 Depression Screening 04/29/2021 04/29/2020 Influenza Vaccine (FLU shot) (#1) 2023 09/17/2022, 10/17/2021, 08/13/2020, Additional history exists HbA1c 10/28/2023 04/28/2023, 10/30, 05/14/2022, Additional history exists Albumin/Creatinine Ratio 11/17/2023 022, 11/13/2021, 09/16/2020, Additional history exists Diabetic Foot Exam 04/28/2024 04/28/2023, 0 03/12/2022, 04/01/2021, Additional history exists TSH 04/28/2024 04/28/2023, 04/29, 11/13/2021, Additional history exists Diabetic Eye Exam 09/03/2024 09/03/2023, , 10/26/2022, Additional history exists GFR 11/10/2024 11/10/2023, 10/29, 11/01/2023, Additional history exists DXA Scan 05/31/2026 05/31/2019, 07/15/2012 DTaP,Tdap,and Td Vaccines (4 - Td or Tdap) 09/19/2027 09/19/2017, 03/22/2017, 07/29/2012 Pneumococcal Vaccine: 65+ Years Completed 04/23/2015, 11/29/2005 COVID-19 Vaccine Completed 11/17/2023, 02/2022, 03/15/2021, Additional history exists GARDASIL-HPV IMMUNIZATION SERIES Aged Out No longer eligible based on patient's age to complete this topic MENINGOCOCCAL (MENACTRA/MENVEO) Aged Out No longer eligible based on patient's age to complete this topic documented as of this encounter Medical Devices Not on filedocumented as of this encounter Care Teams Medical Record Technician Relationship Specialty Start Date End Date Kumar Salinas MD [address] [place] [address] [place] [address] PCP - General 04/03/09 documented as of this encounter
--- OUTSIDE RECORDS SUMMARY | 2023-12-03 12:58 | External Medical Summary | Summary of Care ---
Author Name Unknown Organization [facility] Address [address] [place] [address] Phone [phone] Care Team Providers Care Harness Inspector Name Role Phone Kumar Salinas MD Primary Care Provider [phone] Reason for Visit * Reason Comments Outpatient Testing Encounter Details Date Type Department Care Team (Late st Contact Info) Description 11/17/2023 3:40 PM EST Laboratory Laboratory [address] [place] [phone] [place] [address] DM type 2, 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% ([facility]) Allergies Active Allergy Reactions Criticality Noted Date [...] TWICE A DAY 0 05/18/2022 Active Nystatin 766751 UNIT/GM External CreamIndications:Can dida infection Apply to affected area 2-3 times daily for 5 days 45 g 1 09/17/2022 Active Nystatin 924290 UNIT/GM External Powder (Nystop)Indications: Brunilda infection Apply [...] fibrillation (HCC),Dyslipidemia, goal LDL below 100,Atherosclerosis of [place] coronary artery of [place] heart without angina pectoris TAKE ONE PILL BY MOUTH AT BEDTIME 90 Tablet 1 06/13/2023 Active metFORMIN HCl 850 MG Oral Tablet (Glucophage)Indicati ons:Type 2 diabetes mellitus with hemoglobin A1c goal of less than 7.0% ([facility]) TAKE 1 TABLET BY MOUTH TWICE A [...] 25 MG Oral Tablet (Lopressor)Indicatio ns:Atherosclerosis of [place] coronary artery of [place] heart without angina pectoris,Paroxysmal atrial fibrillation (HCC),Essential [...] ase with esophagitis 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 Atherosclerosis of [place] co ronary artery of [place] heart without angina pectoris Adjustment disorder with [...] persistent 09/23/2012 09/23/2012 Genetic Sleep Disorder Resea [facility] Other*[id number] 09/12/2012 06/25/2016 Obesity, Class II, BMI 35-39 [...] 2:00 PM EDT Office Visit Family Medicine [address] [place] [phone] Linda Smith MD [address] [place] [address] [place] [address] Pending Results Name Type Priority Associated Diagnoses Date /Time ALBUMIN / CREATININE RATIO, URINE Lab Routine DM type 2, 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% ([facility]) 11/17/2023 3:02 PM EST HEMOGLOBIN A1C Lab Routine DM type 2, 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% ([facility]) 11/17/2023 3:02 PM EST Health Maintenance Due Date Last Done Comments [...] as of this encounter Visit Diagnoses Diagnosis DM type 2, 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% (HCC) documented in this encounter Care Teams Harness Inspector Relationship Specialty Start Date End Date Kumar Salinas MD [address] [place] [address] [place] [phone] PCP - General 04/03/09 documented as of this encounter
--- OUTSIDE RECORDS SUMMARY | 2023-12-03 12:58 | External Medical Summary | Summary of Care ---
Author Name Unknown Organization [facility] Address [address] [place] [address] Phone [phone] Care Team Providers Care General Internal Medicine Doctor Name Role Phone Kumar Salinas MD Primary Care Provider Reason for Visit * Reason Onset Date Comments Home Health 11/26/2023 Encounter Details Date Type Department Care Team (Late st Contact Info) Description 11/26/2023 Telephone Family Medicine [address] [phone] Kumar Salinas MD [address] [place] [address] [place] [address] Home Health Allergies Active Allergy Reactions Criticality Noted Date Comments Crab (Diagnostic) 04/05/2018 Food (See Comments) 07/24/2015 Broccoli, beans, cauliflower - cause gas Grapefruit, oranges - cause bronchitis - positive skin test Paroxetine Hydrochloride 04/03/2009 Penicillins 04/03/2009 Blisters on hands Peanut-Containing Drug Products Abdominal pain Medium 07/24/2015 Gas, bloating documented as of this encounter (statuses as of 11/26/2023) Medications Medication Sig Dispensed Refills Start Date [...] 2, 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% ([facility]) TEST BLOOD SUGAR ONCE DAILY DIRECTED [...] TWICE A DAY 0 05/18/2022 Active Nystatin 155999 UNIT/GM External CreamIndications:Can dida infection Apply to affected area 2-3 times daily for 5 days 45 g 1 09/17/2022 Active Nystatin 255709 UNIT/GM External Powder (Nystop)Indications: [place]ilda infection Apply [...] fibrillation (HCC),Dyslipidemia, goal LDL below 100,Atherosclerosis of [place] coronary artery of [place] heart without angina pectoris TAKE ONE PILL BY MOUTH AT BEDTIME 90 Tablet 1 06/13/2023 Active metFORMIN HCl 850 MG Oral Tablet (Glucophage)Indicati ons:Type 2 diabetes mellitus with hemoglobin A1c goal of less than 7.0% ([facility]) TAKE 1 TABLET BY MOUTH TWICE A [...] 25 MG Oral Tablet (Lopressor)Indicatio ns:Atherosclerosis of [place] coronary artery of [place] heart without angina pectoris,Paroxysmal atrial fibrillation (HCC),Essential [...] as of this encounter (statuses as of 11/26/2023) Active Problems Problem Noted Date Diagnosed Date [...] ase with esophagitis 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 Atherosclerosis of [place] co ronary artery of [place] heart without angina pectoris Adjustment disorder with depressed mood documented as of this encounter (statuses as of 11/26/2023) Resolved Problems Problem Noted Date Diagnosed Date [...] persistent 09/23/2012 09/23/2012 Genetic Sleep Disorder Resea [facility] Other*[id number] 09/12/2012 06/25/2016 Obesity, Class II, BMI 35-39 [...] as of this encounter (statuses as of 11/26/2023) Immunizations Name Administration Dates Next Due COVID-19 mRNA, LNP-s, No Pre serve, 2-Dose Series (Moderna) 03/15/2021,02/16/2021 COVID-19, MRNA-LNP, 23-24, P F, 30 MCG/0.3 mL, 12 YRS AND ABOVE, IM (PFIZER-Comirnaty) 11/17/2023 COVID-19, mRNA, LNP-s, PF, B ooster, [...] encounter Miscellaneous Notes * Telephone Encounter - Lisa Ca LPN - 11/26/2023 12:43 PM EST ALBERTO Hadley calling from [facility], Patient would like to switch to bubble packs for her meds. Requesting med list be faxed to [facility] Faxed with confirmation received documented in this encounter Plan of Treatment Upcoming Encounters Date Type Department Care Team (Late st Contact Info) Description 02/23/2024 2:00 PM EDT Office Visit Family Medicine [address] [phone] Linda Smith MD [address] [place] [address] [place] [address] Health Maintenance Due Date Last Done Comments Zoster Vaccines (1 of 2) 1989 Hepatitis B (1 of 3 - Risk 3-dose series) 1999 Depression Screening 04/29/2021 04/29/2020 Influenza Vaccine (FLU shot) (#1) 2023 09/17/2022, 10/17/2021, 08/13/2020, Additional history exists Diabetic Foot Exam 04/28/2024 04/28/2023, 0 03/12/2022, 04/01/2021, Additional history exists TSH 04/28/2024 04/28/2023, 04/29, 11/13/2021, Additional history exists HbA1c 05/18/2024 11/17/2023, 03/31, 11/17/2022, Additional history exists Diabetic Eye Exam 09/03/2024 09/03/2023, , 10/26/2022, Additional history exists GFR 11/10/2024 11/10/2023, 10/29, 11/01/2023, Additional history exists Albumin/Creatinine Ratio 11/17/2024 023, 11/17/2022, 11/13/2021, Additional history exists DXA Scan 05/31/2026 [...] filedocumented as of this encounter Care Teams General Internal Medicine Doctor Relationship Specialty Start Date End Date Kumar Salinas MD [address] [place] [address] [place] [phone] PCP - General 04/03/09 documented as of this encounter
--- OUTSIDE RECORDS SUMMARY | 2023-12-03 12:58 | External Medical Summary ---
Author Name Unknown Address Unknown Organization K01:[facility] - [address] [facility] [address] Laboratory Report Ordering Provider Test Date Status ANABELLE TONY 11/17/2023 15:02:49 Final Observation Date Value Abnormality Reference (Units ) Status HbA1C 11/17/2023 15:02:49 6.3 Above high normal 4. 0-5.6 (%) Final The use of HbA1c to monitor glycemic status is based on normal hemoglobin and HbA composition. This test should not be used in patients with abnormal hemoglobin that affects the half life of the red blood cell or the in vivo glycation rates. Glucose, estimated average 11/17/2023 15:02:49 134 Above high normal <126 (mg/dL) Victor Hugo taveras Performing Location [facility] - [address] [facility] [address]
--- OUTSIDE RECORDS SUMMARY | 2023-12-03 12:58 | External Medical Summary | Summary of Care ---
Author Name Unknown Organization [facility] Address [address] [place] [address] Phone [phone] Care Team Providers Care Environmental Services Associate Name Role Phone Kumar Salinas MD Primary Care Provider + [phone] Reason for Visit * Reason Comments Hospital Follow-Up Encounter Details Date Type Department Care Team (Late st Contact Info) Description 11/17/2023 3:00 PM EST Office Visit Family Medicine [address] [phone] Kumar Salinas MD [address] [place] [address] [place] [id number] DM type 2, 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% ([facility])*; Benign hypertension with CKD (chronic kidney disease), stage II; Paroxysmal atrial fibrillation (HCC); Acquired hypothyroidism; Dyslipidemia, goal LDL below 100; Primary hypertension; Vasovagal syncope Allergies Active Allergy Reactions Criticality Noted Date [...] 30GIndications:DM type 2, 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% ([facility]) TEST BLOOD SUGAR ONCE DAILY DIRECTED DX [...] TWICE A DAY 0 05/18/2022 Active Nystatin 950566 UNIT/GM External CreamIndications:Ca ndida infection Apply to affected area 2-3 times daily for 5 days 45 g 1 09/17/2022 Active Nystatin 367054 UNIT/GM External Powder (Nystop)Indications :Brunilda infection Apply [...] fibrillation (HCC),Dyslipidemia, goal LDL below 100,Atherosclerosis of [place] coronary artery of [place] heart without angina pectoris TAKE ONE PILL BY MOUTH AT BEDTIME 90 Tablet 1 06/13/2023 Active metFORMIN HCl 850 MG Oral Tablet (Glucophage)Indicat ions:Type 2 diabetes mellitus with hemoglobin A1c goal of less than 7.0% ([facility]) TAKE 1 TABLET BY MOUTH TWICE A [...] 25 MG Oral Tablet (Lopressor)Indicati ons:Atherosclerosis of [place] coronary artery of [place] heart without angina pectoris,Paroxysmal atrial fibrillation (HCC),Essential hypertension with goal blood pressure less than 140/90 TAKE 1 TABLET BY MOUTH TWICE A DAY 180 Tablet 1 11/01/2023 Active Sodium Chloride 1 GM Oral Tablet Take 1 Tablet by mouth in the morning and 1 Tablet before bedtime. 0 11/07/2023 Active Levothyroxine Sodium 100 MCG Oral Tablet (Levoxyl)Indication s:Acquired hypothyroidism TAKE 1 TABLET BY MOUTH DAILY AT LEAST 30 MINUTES PRIOR TO BREAKFAST OR OTHER MEDICATION 90 Tablet 1 11/17/2023 Active NIFEdipine ER Osmotic Release 90 MG Oral Tablet Extended Release 24 Hour (Procardia XL)Indications:Segundo gn hypertension with CKD (chronic kidney disease), stage II,Primary hypertension Take 1 Tablet by mouth in the morning. 90 Tablet 1 11/17/2023 Active Ferrous Sulfate 325 (65 Fe) MG Oral Tablet (Feosol)Indications :Iron deficiency anemia, unspecified iron deficiency anemia type TAKE 1 TABLET BY MOUTH TWICE A DAY 180 Tablet 3 09/05/2022 3 Discontinu ed(Medicat ion List Clean Up) Levothyroxine Sodium 100 MCG Oral Tablet (Levoxyl) TAKE 1 TABLET BY MOUTH DAILY AT LEAST 30 MINUTES PRIOR TO BREAKFAST OR OTHER MEDICATION 90 Tablet 1 05/12/2023 3 Discontinu ed(Refill) HYDROcodone-Acetami nophen 5-325 MG Oral TabletIndications:A rthralgia of shoulder, unspecified laterality Take 1 Tablet by mouth every 6 hours as needed for Pain, Mild. 10 Tablet 0 05/20/2023 3 Discontinu ed(End of Procedure) Cephalexin 500 MG Oral Capsule (Keflex)Indications :Dysuria Take 1 Capsule by mouth 2 times a day with morning and evening meals for 5 days. 10 Capsule 0 07/27/2023 3 Discontinu ed(End of Procedure) Chlorthalidone 25 MG Oral Tablet (Hygroton)Indicatio ns:Benign hypertension with CKD (chronic kidney disease), stage II TAKE 1 TABLET BY MOUTH EVERY DAY IN THE MORNING 90 Tablet 1 10/11/2023 3 Discontinu ed(Medicat ion/Dose Changed) NIFEdipine ER Osmotic Release 90 MG Oral Tablet Extended Release 24 Hour (Procardia XL) Take 1 Tablet by mouth in the morning. 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 [facility] Other*[id number] 09/12/2012 06/25/2016 Obesity, Class II, BMI 35-39 [...] Sign Reading Time Taken Comments Blood Pressure 118/72 11/17/2023 2:34 PM EST Pulse 62 11/17/2023 2:34 PM EST Temperature 36.2 C (97.1 F) 11/17/2023 2:34 PM ES T Respiratory Rate 16 11/17/2023 2:34 PM EST Oxygen Saturation 97% 11/17/2023 2:34 PM EST Inhaled Oxygen Concentration - - Weight 73.9 kg (163 lb) 11/17/2023 2:34 PM EST Height - - Body Mass Index 31.16 05/25/2023 1:42 PM EDT documented in this encounter Progress Notes * Kumar Salinas MD - 11/17/2023 2:35 PM EST Yudelka was admitted to [facility] after passing out at home on 10/24. Discharged 11/07. She injured her right ankle so needed rehab and a cam boot. CT of head negative. They felt this was vasovagal syncope. She went from [facility] to [facility] for rehab. She still has a sore right shoulder from a fall, had beendoing rehab on it as well. She mostly uses a walker to get around. She has seen ortho about the ankle and a PA injected it Covid booster today Past Medical History: Diagnosis Date Acquired hypothyroidism Acute blood loss anemia 08/22/2019 hgb 7.7, given 2 units Adjustment disorder with depressed mood Allergic rhinitis Asthma Atrial fibrillation ([facility]) 01/08/2013 [facility] Benign hypertension with CKD (chronic kidney disease) stage III ([facility]) Benign hypertension with CKD (chronic kidney disease), stage II 04/01/2021 BMI 36.0-36.9,adult Calcium deposit in bursa, unspecified hip Cataract, nuclear sclerotic, both eyes Central stenosis of spinal canal 06/11/2021 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 Coronary atherosclerosis of [place] coronary artery DM type 2, goal HbA1c < 7% ([facility]) 05/07/2018 hgba1c 7.3 Dyslipidemia, goal LDL below [...] 09/23/2012 Symptomatic menopausal or female climacteric states Vasovagal syncope 10/24/2023 [facility] Past Surgical History: Procedure Laterality Date BREAST LESION,OTHER,EXCISION Bilateral cysts removed in her 20s COLONOSCOPY, REMOVE LESION, W/SNARE 04/23/2020 5 mm sessile adenomatous polyp transverse colon, large internal hemorrhoids CORONARY ARTERY DILATION, BALLOON 01/30/[address] [place] [address] ABDOMEN/PELVIS 04/04/2013 acute distal sigmoid colon [...] RIGHT AND LEFT KNEE ARTHROSCOPY/MENISCECTOMY 09/2013 left, [facility] LAPAROSCOPY;APPENDECTOMY 2006 MAMMOGRAM SCREENING BILATERAL Bilateral 07/31/2020 [...] REMOVE CATARACT, INSERT LENS PROSTH Left 05/02/2013 [facility] REMOVE CATARACT, INSERT LENS PROSTH Right 05/25/2013 [facility] REPAIR RUPTURED ROTATOR CUFF, CHRON Left 09/12/2015 Dr De Leon [facility], rotator cuff and biceps REVISE UPPER EYELID [...] on file Tobacco Use Smoking status: Never Passive exposure: Past Smokeless tobacco: Never Substance and Sexual Activity Alcohol use: Yes Comment: once a month Drug use: No Sexual activity: Not Currently Partners: Male Other Topics Concern Not on file Social History Narrative 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 Coenzyme Q10 (COQ-10) 100 MG CAPS Take 1 Cap by mouth daily. MEDICAL INSTRUCTIONS Use as directed. CPAP during night as ordered Cholecalciferol (VITAMIN D-3) 1000 units Capsule Take 1 Capsule by mouth in the morning. Venlafaxine HCl ER 37.5 MG Oral Capsule Extended Release 24 Hour Take 1 Capsule by mouth in the morning. Glucose Blood (Cabeo VERCIBDO) STRP Test blood sugar once daily as directed; dx E11.9 100 Strip 3 triamcinolone acetonide (ARISTOCORT) 0.1 % cream Apply topically to affected area 2 times a day. Toaffected area. 15 g 5 Magnesium Oxide 400 (240 Mg) MG Tablet Take 1 Tablet by mouth in the morning. zinc gluconate 50 MG Tablet Take 1 Tablet by mouth in the morning. Albuterol Sulfate HFA 108 (90 Base) MCG/ACT [...] the morning and 2 Tablets before bedtime. Wixela Inhub 250-50 MCG/DOSE Inhalation Aerosol Powder Breath Activated (Fluticasone-Salmeterol) INHALE 1 PUFF BY MOUTH 2 TIMES A DAY. 180 Each 3 Lumigan 0.01 % Ophthalmic Solution Instill 1 Drop into both eyes at bedtime. Nystatin 626751 UNIT/GM External Cream Apply to affected area 2-3 times daily for 5 days 45 g 1 Nystatin 359581 UNIT/GM External Powder (Nystop) Apply topically to affected area 2 times a day . 30 g 1 Fluticasone-Salmeterol 250-50 MCG/ACT Inhalation Aerosol Powder Breath Activated (Wixela Inhub) Inhale 1 Puff by mouth in the morning and 1 Puff before bedtime. 180 Each 3 Fluticasone Propionate 50 MCG/ACT Nasal Suspension (Flonase) Administer 2 Sprays into each nostril every morning. 48 mL 3 Montelukast Sodium 10 MG Oral Tablet (Singulair) Take 1 Tablet by mouth in the morning. 90 Tablet 3 Levothyroxine Sodium 100 MCG Oral Tablet (Levoxyl) TAKE 1 TABLET BY MOUTH DAILY AT LEAST 30 MINUTESPRIOR TO BREAKFAST OR OTHER MEDICATION 90 Tablet 1 Atorvastatin Calcium 20 MG Oral Tablet (Lipitor) TAKE ONE PILL BY MOUTH AT BEDTIME 90 Tablet 1 metFORMIN HCl 850 MG Oral Tablet (Glucophage) TAKE 1 TABLET BY MOUTH TWICE A DAY WITH BREAKFAST ANDDINNER 180 Tablet 1 Oxybutynin Chloride ER 10 MG Oral Tablet Extended Release 24 Hour (Ditropan XL) Take 1 Tablet by mouth in the morning. 90 Tablet 3 Chlorthalidone 25 MG Oral Tablet (Hygroton) TAKE 1 TABLET BY MOUTH EVERY DAY IN THE MORNING 90 Tablet 1 Losartan Potassium 100 MG Oral Tablet (Cozaar) TAKE 1 TABLET BY MOUTH EVERY DAY IN THE MORNING 90 Tablet 1 Metoprolol Tartrate 25 MG Oral Tablet (Lopressor) TAKE 1 TABLET BY MOUTH TWICE A DAY 180 Tablet 1 NIFEdipine ER Osmotic Release 90 MG Oral Tablet Extended Release 24 Hour (Procardia XL) Take 1 Tablet by mouth in the morning. Sodium Chloride 1 GM Oral Tablet Take 1 Tablet by mouth in the morning and 1 Tablet before bedtime. OneTouch Xanofi Lancets 30G TEST BLOOD SUGAR ONCE DAILY DIRECTED DX E11.9 100 Each 3 Ketoconazole 2 % External Cream APPLY SPARINGLY TO AFFECTED AREA TWICE A DAY No current facility-administered medications for this visit. Immunization History Administered Date(s) Administered COVID-19 mRNA, LNP-s, No Preserve, 2-Dose Series (Moderna) 02/16/2021, 03/15/2021 COVID-19, mRNA, LNP-s, PF, Booster, 100mcg/0.5mg (Moderna) 12/02/2021 Diptheria/Tetanus (Adult) 03/22/2017 Pneumococcal Conjugate Vacc, 13 Valent (Prevnar) 04/23/2015 Pneumococcal Polysaccharide PPV23 (Pneumovax) 11/29/2005 Season Influenza, Quad, PF, Adjuvanted, 65+ Yrs, IM (FLUAD) 08/13/2020 Seasonal Influenza, PF, 6 M & above, IM , (FluLaval or Fluzone) 09/29/2017, 10/03/2018, 08/29/2019 Seasonal Influenza, Quadrivalent Hd (Fluzone Hd) 10/17/2021, 09/17/2022 Seasonal Influenza, Quadrivalent, No Preserve, IM 10/12/2016 Seasonal Influenza, Split, IIV3, With Preserve, Inj 08/28/2010, 09/01/2011, 10/06/2012, 11/14/2013,08/14/2014, 09/12/2015 TDAP (age 10 and older)(Boostrix) 09/19/2017 TDAP (age 11 and older)(Adacel) 07/29/2012 CBC Results: Results for orders placed or performed in visit on 11/10/23 CBC Result Value Ref Range WBC 7.64 4.00 - 10.80 K/uL RBC 4.19 3.85 - 5.15 M/uL HGB 12.3 12.0 - 15.3 g/dL HCT 37.6 36.0 - 45.2 % MCV 89.7 81.5 - 97.5 fL MCH 29.4 27.0 - 34.0 pg MCHC 32.7 32.0 - 36.0 g/dL RDW 14.5 11.5 - 15.5 % PLT 301 140 - 400 K/uL MPV 11.4 6.6 - 11.1 fL nRBCs 0 <=0 /100 WBCs Results for orders placed or performed in visit on 11/10/23 COMPREHENSIVE METABOLIC PANEL Result Value Ref Range BUN 18 6 - 20 mg/dL Creatinine 0.7 0.5 - 1.0 mg/dL Estimated Glomerular Filtration Rate 86 >=60 mL/min Sodium 137 135 - 146 mmol/L Potassium 4.3 3.5 - 5.1 mmol/L Chloride 100 98 - 107 mmol/L CO2 26 22 - 32 mmol/L Anion Gap 11 7 - 15 mmol/L Glucose 107 70 - 120 mg/dL Albumin 3.8 3.8 - 5.0 g/dL AST 14 10 - 35 U/L Alkaline Phosphatase 59 35 - 130 U/L Bilirubin, Total 0.2 <=1.2 mg/dL Calcium 9.3 8.4 - 10.2 mg/dL Protein 5.5 (L) 6.0 - 8.3 g/dL ALT 28 10 - 35 U/L Lab Results Component Value Date/Time TSH - [facility] 0.50 04/28/2023 02:28 PM TSH - [facility] 0.40 05/14/2022 02:20 PM TSH - [facility] 0.77 11/13/2021 09:12 AM TSH - [facility] 0.51 04/29/2020 10:16 AM TSH - [facility] 0.14 (L) 01/23/2019 02:34 PM TSH - [facility] 0.35 05/07/2017 03:43 PM TSH - [facility] 0.237 (A) 05/07/2018 12:00 AM O: Blood pressure 118/72, pulse 62, temperature 36.2 C (97.1 F), temperature source Tympanic, resp. rate 16, weight 73.9 kg (163 lb), SpO2 97%, not currently . General appearance: well developed, well nourished and in no acute distress. Neck is supple without adenopathy or thyromegaly. Chest is symmetrical and moves normally. The lungs are clear without wheezes, rales, rhonchi orrubs, and the heart is regular without murmurs or gallops, or ectopy. PMI not displaced. She has pedal pulses, tenderness by later malleolus. A: DM type 2, 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% (HCC) (Primary) - ALBUMIN / CREATININE RATIO, URINE; Future; Expected date: 11/17/2023 - HEMOGLOBIN A1C; Future; Expected date: 11/17/2023 Benign hypertension with CKD (chronic kidney disease), stage II - NIFEdipine ER Osmotic Release 90 MG Oral Tablet Extended Release 24 Hour (Procardia XL); Take 1 Tablet by mouth in the morning. Paroxysmal atrial fibrillation (HCC) Acquired hypothyroidism - Levothyroxine Sodium 100 MCG Oral Tablet (Levoxyl); TAKE 1 TABLET BY MOUTH DAILY AT LEAST 30 MINUTES PRIOR TO BREAKFAST OR OTHER MEDICATION Dyslipidemia, goal LDL below 100 Primary hypertension - NIFEdipine ER Osmotic Release 90 MG Oral Tablet Extended Release 24 Hour (Procardia XL); Take 1 Tablet by mouth in the morning. Vasovagal syncope Continue other meds as before. RTO prn documented in this encounter Nursing Notes * Lilibeth Zurita LPN - 11/17/2023 2:20 PM EST [facility] to [facility] her. documented in this encounter Plan of Treatment Upcoming Encounters Date Type Department Care Team (Late st Contact Info) Description 11/17/2023 3:40 PM EST Laboratory Laboratory [address] [place] [phone] [place] [address] DM type 2, 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% ([facility]) 02/23/2024 2:00 PM EDT Office Visit Family Medicine [address] [place] [phone] Linda Smith MD [address] [place] [address] [place] [address] Pending Results Name Type Priority Associated Diagnoses Date /Time ALBUMIN / CREATININE RATIO, URINE Lab Routine DM type 2, 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% ([facility]) 11/17/2023 3:02 PM EST HEMOGLOBIN A1C Lab Routine DM type 2, 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% ([facility]) 11/17/2023 3:02 PM EST Scheduled Orders Name Type Priority Associated Diagnoses Orde r Schedule ALBUMIN / CREATININE RATIO, URINE Lab Routine DM type 2, 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% ([facility]) Expected: 11/17/2023 (Approximate), Expires: 11/16/2024 HEMOGLOBIN A1C Lab Routine DM type 2, 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% ([facility]) Expected: 11/17/2023 (Approximate), Expires: 11/16/2024 Health Maintenance Due Date Last Done Comments [...] DM type 2, 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% (HCC)- Primary Benign hypertension with CKD (chronic kidney disease), stage II Benign hypertensive kidney disease with chronic kidney disease stage I through stage IV, or unspecified Paroxysmal atrial fibrillation (HCC) Atrial fibrillation Acquired hypothyroidism Unspecified hypothyroidism Dyslipidemia, goal LDL below 100 Other and unspecified hyperlipidemia Primary hypertension Unspecified essential hypertension Vasovagal syncope Syncope and collapse DM type 2, 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% (HCC) documented in this encounter Care Teams Environmental Services Associate Relationship Specialty Start Date End Date Kumar Salinas MD [address] [place] [address] [place] [address] PCP - General 04/03/09 documented as of this encounter
--- OUTSIDE RECORDS SUMMARY | 2023-12-03 12:58 | External Medical Summary ---
Author Name Unknown Address Unknown Organization [id number]:[facility] [place] [address] [place] [address] Laboratory Report Ordering Provider Test Date Status ANABELLE TONY 11/17/2023 15:02:49 Final Normal: <30 mg/g creatinine< br/>High: 30-300 mg/g creatinine
Very High: >300 mg/g creatinine
Nephrotic: >2200 mg/g creatinine Observation Date Value Abnormality Reference (Units ) Status Albumin, Urine 11/17/2023 15:02:49 <1.20 (mg/dL) Final Creatinine, Urine 11/17/2023 15:02:49 64 (mg/dL) Final Albumin/Creatinine [Mass Ratio] in Urine 11/17/2023 15:02:49 <19 <30 (mg/g Creat) Final Performing Location [facility] [place] [address] [place] [address]
--- NOTE | 2023-12-03 13:22 | Cardiology Consultation ---
Date of Consultation December 03, 2023 Assessment & Plan (1) Near syncope: (2) Hypomagnesemia: (3) Hypokalemia: (4) Elevated troponin: (5) HTN (hypertension): Plan Assessment: 83 year-old female with near syncopal symptoms during position change/ambulation, history of recurrent syncope in past, new troponin elevation in the absence of acute EKG changes or chest pain Plan: 1. Near Syncope: -Etiology unclear at this time, but resonates with likely orthostatic hypotension given episodes always start with position change, and have become more frequent since increase in blood pressure medication dosing. -Continue to monitor on telemetry for any ectopy, arrhythmia, high grade heart block or pauses. -Obtain orthostatic vital signs. -ensure adequate hydration. -Obtain limited echo in light of troponin elevation. 2. Hypomagnesemia 3. Hypokalemia -Receiving IV mag supplementation and PO potassium supplementation -Monitor closely -Telemetry shows no evidence of ectopy or arrhythmia. 4. Elevated Troponin: -In the absence of acute ST-T wave ischemic changes and patient remains asymptomatic. -Continue to trend to peak -Obtain limited echocardiogram to assess LVEF and for any wall motion abnormalities. -History of prior stent placement dating back to 1999 ([facility]) -Prior negative nuclear Lexiscan stress test in [facility] in 2018. -Continue GDMT at this time including ASA 81mg, Atorvastatin, Losartan, and Metoprolol tartrate. -Further recommendations pending limited echo and trending labs. 5. HTN: -High end of target since time of admission. -Continue to monitor -Continue current medication therapies with Metoprolol tartrate, Losartan, and Nifedipine. -Obtain orthostatic vital signs. Case has been discussed with Dr. Graham. Further recommendations regarding plan of care as per his assessment. I spent a total of 30 minutes on the date of service in preparation, delivery, documentation of the care provided to the patient excluding any time spent in the performance of separately billed services. CELE[facility] Cardiology [facility] Supervising Physician Co-Signing Physician Notes Patient was seen and personally examined full assessment and plan as above 83-year-old female with prior history of vasovagal syncope, known coronary artery disease. Last hospitalization late September following syncopal event. Now presents with symptoms noted after ambulatory from the bathroom becoming lightheaded. Sat down and placed her head on the table with symptoms passing after 2 to 3 minutes. No complete syncope. Episode slightly more profound and given recent hospitalization send for further evaluation. Electrolyte abnormalities noted on initial labs including hypokalemia and hypomagnesemia which has been replaced No arrhythmias on telemetry Troponin however elevated on next day examinations. No EKG changes to suggest injury or ischemia. Echocardiogram performed today demonstrates normal to hyperdynamic wall motion and LV function without segmental abnormality. Discussed options of management with patient Will follow closely with blood cultures ordered given shadowing below the calcific mitral valve seen on No distinct source of patient complaints. Could consider further evaluation of ischemia through stress testing versus coronary angiography but would not proceed at this point time given asymptomatic patient, no significant findings on EKG or echo Cardiology however will continue to follow. Maintain telemetry History of Present Illness Reason for Consultation: Recurrent syncope Elevated troponin Requesting Physician: Mitali blankenship Attending Physician: Jair Ivey MD History of Present Illness Patient is a 83 year-old female that presented to the ED with complaints of dizziness and feelings as though she could pass out. Patient states that she was feeling her usual state of health with no cold/flu-like symptoms, no fevers, chills, N/V/D. She reports that she had ambulated to the bathroom, voided, and when she stood she felt very weak and started to become dizzy, describing the room spinning. She states that she took a few more steps and her symptoms were not improving which is when her significant other assisted her to the table to have a seat and put her head down. She asked if she could be assisted to a recliner chair so she could lay down and see if that helped. the entire episode lasted approximately 5 minutes and resolved with no further intervention. EMS was summoned during that time and she was brought in for further evaluation. Patient states since being here, she has complaints of dizziness each time she attempts to get up to ambulate. usually resolves within a minute or two. Of note, Patient did have a recent hospitalization 10/23/23-10/29/23 for a suspected vasovagal syncope (longstanding history per cardiology note), and subsequent ankle injury. At the time of that hospitalization, she was hypertensi ve and so her Chlorthalidone was stopped due to hyponatremia and she was started on Nifedipine 60mg QD Patient had a PCP visit on 11/17/23, her Nifidepine was increased to 90mg QD. Since the time of that visit, patient states her dizzy spells as described above have been much more freqent. Labs on admission show serum Magnesium 1.0mg/dl, and serum potassium 3.1mmol/L. She has received IV mag supplementation and is currently receiving PO potassium supplementation. Initial troponin negative, subsequent troponin is elevated with no peak determined at this time. 8.7/ 155.0/ 243.9 Review of telemetry shows SR with no ectopy. Primary Photonics Engineering Technician: Dr. Peacock. Last seen in the office 05/07/2022 Cardiac Problems: 1. Paroxysmal atrial fibrillation (12/2011). No known recurrence. 2. Stable chronic coronary heart disease without angina, remote PCI stent in approximately 2000 ago at [place], [place]. 3. Dyslipidemia 4. Diastolic dysfunction 5. DEMARIO 6. DM Type 2 7. Mild persistent asthma 8. Hypothyroidism 9. Glaucoma EKG on admission shows NSR with non-specific ST and T wave abnormality Rate 72bpm. Allergies Allergy/AdvReac Type Severity Reaction Status Date / Time Penicillins Allergy Mild . Verified 11/15/23 13:55 broccoli Allergy Unknown GAS Unverified 11/15/23 13:55 grapefruit Allergy Unknown BRONCHITIS Unverified 11/15/23 13:55 mold Allergy Unknown asthma Verified 11/15/23 13:55 symptoms orange Allergy Unknown BRONCHITIS Unverified 11/15/23 13:55 paroxetine Allergy Unknown ANAPHYLAXIS Unverified 11/15/23 13:55 pollen extracts Allergy Unknown asthma Verified 11/15/23 13:55 symptoms vasquez AdvReac Unknown gas and Verified 12/03/23 06:17 bloating with consuption of green or kidneys beans crab AdvReac Unknown diarrhea Verified 11/15/23 13:55 peanut AdvReac Unknown gas/bloatin Unverified 11/15/23 13:55 g Home Medications Medication Instructions Recorded Confirmed Type atorvastatin 20 mg tablet 20 mg PO HS 08/22/19 12/03/23 History coenzyme Q10 100 mg capsule 100 mg PO QAM 08/22/19 12/03/23 History (CoQ-10) cyanocobalamin (vitamin B-12) 1,000 mcg PO QPM 08/22/19 12/03/23 History 1,000 mcg capsule dexlansoprazole 60 mg 60 mg PO QAM 08/22/19 12/03/23 History capsule,biphase delayed release (Dexilant) fluticasone propionate 50 2 spray intranasal QAM 08/22/19 12/03/23 History mcg/actuation nasal spray,suspension losartan 100 mg tablet 100 mg PO QAM 08/22/19 12/03/23 History metformin 850 mg tablet 850 mg PO BIDM 08/22/19 12/03/23 History metoprolol tartrate 25 mg tablet 25 mg PO BID 08/22/19 12/03/23 History montelukast 10 mg tablet 10 mg PO QPM 08/22/19 12/03/23 History multivitamin 1 tab PO DAILY 08/22/19 12/03/23 History venlafaxine 37.5 mg 37.5 mg PO DAILY 08/24/19 12/03/23 History capsule,extended release 24 hr bimatoprost 0.01 % eye drops 1 drp OPB HS 05/08/22 12/03/23 History (Sumeet) albuterol sulfate 90 mcg/actuation 2 puff inhalation Q4H PRN 10/23/23 12/03/23 History aerosol inhaler Shortness Of Breath Or Wheezing ascorbic acid (vitamin C) 500 mg 500 mg PO QAM 10/23/23 12/03/23 History tablet aspirin 81 mg tablet,delayed 81 mg PO QPM 10/23/23 12/03/23 History release (Ecotrin Low Strength) azelastine 137 mcg (0.1 %) nasal 2 spray intranasal QPM 10/23/23 12/03/23 History spray aerosol cholecalciferol (vitamin D3) 25 25 mcg PO QAM 10/23/23 12/03/23 History mcg (1,000 unit) tablet fluticasone 250 mcg-salmeterol 50 1 inh inhalation BID 10/23/23 12/03/23 History mcg/dose blistr powdr for inhalation (Wixela Inhub) magnesium oxide 400 mg (241.3 mg 400 mg PO QAM 10/23/23 12/03/23 History magnesium) tablet oxybutynin chloride 10 mg 10 mg PO QAM 10/23/23 12/03/23 History tablet,extended release 24 hr zinc gluconate 50 mg tablet 50 mg PO QPM 10/23/23 12/03/23 History ketoconazole 2 % topical cream 1 applic topical BID 12/02/23 12/02/23 History levothyroxine 100 mcg tablet 100 mcg PO DAILYBB 12/02/23 12/03/23 History nifedipine 90 mg tablet,extended 90 mg PO QAM 12/02/23 12/03/23 History release 24 hr sodium chloride 1,000 mg soluble 1,000 mg PO AMHS 12/02/23 12/03/23 History tablet potassium chloride 10 mEq 20 meq PO BID 12/03/23 12/03/23 History tablet,extended release(part/cryst) (Klor-Con M) Patient History Medical History Right rotator cuff tear Right knee DJD CAD (coronary artery disease) stent in 1999 T2DM (type 2 diabetes mellitus) HTN (hypertension) HLD (hyperlipidemia) PAF (paroxysmal atrial fibrillation) DEMARIO (obstructive sleep apnea) Asthma CKD (chronic kidney disease) stage 3, GFR 30-59 ml/min Primary open angle glaucoma GERD (gastroesophageal reflux disease) Hypothyroidism History of placement of stent in [place] coronary artery Sleep apnea Surgical History History of rotator cuff surgery History of cataract extraction History of arthroscopic knee surgery History of tonsillectomy History of appendectomy Stented coronary artery Family History Father CHF (congestive heart failure) Mother Cancer Social History Smoking Status: Never smoker Hx Alcohol Use: No Hx Substance Use: No Preferred Language: [place] Communication Ability: Effective Consumer Electronic Retail Specialist Required: No Beliefs That Will Affect Care: None marital status: Life Partner Current Living Situation: Spouse Current Living Situation Comment: s/o Other Information That Helps Us Care for You: No Feels Safe at Home: Yes Safety Concerns: Feels Safe At This Time Assistive Devices: Cane, CPAP and Walker Review of Systems Review of Systems: All systems reviewed & are unremarkable except as noted in HPI & below Physical Exam Constitutional: well developed and well nourished; no acute distress and not ill appearing Neck: normal visual inspection and trachea midline Respiratory: normal respiratory effort, lungs clear to auscultation Cardiovascular: Rate/Rhythm: regular rate and regular rhythm Heart Sounds: normal S1, normal S2 and + murmur (+1/6 systolic murmur) Vessels: no JVD Skin: no rashes, warm and dry Psychiatric: A+Ox3, euthymic affect Results & Data Vital Signs (Past 12 Hours) Vital Signs Pulse Pulse Resp BP BP Pulse Ox Pulse Ox 12/03/23 12:19 78 12/03/23 12:00 74 19 145/69 H 94 12/03/23 11:05 73 20 111/55 L 97 12/03/23 07:03 94 12/03/23 06:00 92 12/03/23 06:00 155/62 H 12/03/23 05:55 75 16 156/68 H 95 12/03/23 05:54 94 12/03/23 05:54 156/68 H 12/03/23 04:00 75 20 137/59 L 91 12/03/23 03:39 75 12/03/23 03:00 69 20 141/61 H 92 12/03/23 02:00 76 18 144/70 H 94 O2 Del Method 12/03/23 12:19 12/03/23 12:00 Room Air 12/03/23 11:05 Room Air 12/03/23 07:03 12/03/23 06:00 12/03/23 06:00 12/03/23 05:55 Room Air 12/03/23 05:54 12/03/23 05:54 12/03/23 04:00 12/03/23 03:39 12/03/23 03:00 12/03/23 02:00 Laboratory Results Cardiac Enzymes 12/02/23 12/03/23 12/03/23 Range/Units 23:11 07:33 13:02 AST 10 L (13-39) U/L Troponin I High Sens 8.7 155.0 H* D 243.9 H* D (0-14) pg/ml B-Natriuretic Peptide 269 H (0-100) pg/ml Coagulation 12/02/23 Range/Units 23:11 B-Natriuretic Peptide 269 H (0-100) pg/ml CBC 12/02/23 12/03/23 Range/Units 23:11 07:33 WBC 11.35 H 10.62 (4.8-10.8) K/ul RBC 4.71 4.56 (4.20-5.40) M/uL Hgb 13.9 13.0 (12.0-16.0) g/dl Hct 41.9 40.5 (37.0-47.0) % Plt Count 315 331 (130-400) K/uL Neut # (Auto) 8.82 H 7.36 H (1.40-6.50) K/uL Lymph # (Auto) 1.18 L 1.93 (1.20-3.40) K/uL [place] # (Auto) 1.04 H 1.10 H (0.11-0.59) K/uL Eos # (Auto) 0.22 0.15 (0.00-0.50) K/uL Baso # (Auto) 0.04 0.04 (0.00-0.20) K/uL Comprehensive Metabolic Panel 12/02/23 12/03/23 Range/Units 23:11 07:33 Sodium 139 137 (136-145) mmol/L Potassium 3.7 3.1 L (3.5-5.1) mmol/L Chloride 102 99 (98-107) mmol/L Carbon Dioxide 27 28 (21-32) mmol/L BUN 16 11 (6-23) mg/dl Creatinine 0.72 0.58 L (0.6-1.2) mg/dl Glucose 150 H 125 H (70-99(Fasting)) mg/dl Calcium 9.2 8.6 (8.6-10.3) mg/dl AST 10 L (13-39) U/L ALT 7 (7-52) U/L Alkaline Phosphatase 64 (34-104) U/L Total Protein 7.3 (6.0-8.3) gm/dl Albumin 4.0 (3.4-5.0) gm/dl Intake and Output 12/02/23 12/03/23 12/03/23 22:59 06:59 14:59 Intake Total 200 / 200 1100 / 1100 Balance 200 / 200 1100 / 1100 Intake: IV 200 / 200 1100 / 1100 Magnesium Sulfate / D5w 1 gm In 200 / 200 100 / 100 100 ml @ 50 mls/hr IV ONE ONE Rx#:[id number] Sodium Chloride 0.9% 1,000 ml @ 1000 / 1000 125 mls/hr IV .Q8H ALYSA Rx#: [id number] Other: Weight 74.6 kg Weight Measurement Method Built in [facility] Diagnostic Findings Echocardiogram 10/24/2023 EF 65-70% mild concentric LVH left atrium is moderately dilated severe mitral annular calcification mild MR Diastolic dysfunction, grade II (5) HTN (hypertension) Hypertension type: primary hypertension Qualified Code(s): I10 - Essential (primary) hypertension
--- NOTE | 2023-12-03 15:36 | Electrocardiogram Report ---
Test Reason : Blood Pressure : / mmHG Vent. Rate : 084 BPM Atrial Rate : 084 BPM P-R Int : 160 ms QRS Dur : 084 ms QT Int : 358 ms P-R-T Axes : 073 -25 072 degrees QTc Int : 423 ms Normal sinus rhythm Leftward axis Nonspecific ST abnormality Abnormal ECG When compared with ECG of 02-DEC-2023 23:03, No significant change was found Confirmed by Fred East ([id number]) on 12/03/2023 3:36:19 PM Referred By: REFERRED SELF Confirmed By:Fred East
[2023-12-03] MEDS: POTASSIUM CHLORIDE CRTAB 20 MEQ TABCR PO SCH (20:52)
[2023-12-03] MEDS: MONTELUKAST SODIUM 10 MG TABLET PO SCH (20:52)
[2023-12-03] MEDS: ASPIRIN 81 MG ECTAB PO SCH (20:53)
[2023-12-03] MEDS: CYANOCOBALAMIN (B-12) 500 MCG TABLET PO SCH (20:53)
[2023-12-03] MEDS: ATORVASTATIN 20 MG TAB PO SCH (20:53)
[2023-12-03] MEDS: AZELASTINE HCL 0.1% NASAL 200 SPRAYS/27,400 MCG BTL SCH (20:54)
[2023-12-03] MEDS: BIMATOPROST 0.01% OP SOLN 2.5 ML BTL OP SCH (20:55)
[2023-12-03] MEDS ORDERED: LABETALOL HCL IV 5 MG/ML 20ML IV STA (23:27)
[2023-12-04] MEDS: LEVOTHYROXINE SODIUM 100 MCG TABLET PO SCH (06:14)
--- NOTE | 2023-12-04 07:55 | Hospitalist Progress Note ---
Date of Service December 04, 2023 Assessment & Plan (1) Near syncope: Plan: Ms. Palacios is an 83-year-old female with past med history significant for type 2 diabetes, hypothyroidism, hyperlipidemia, obstructive sleep apnea, mild persistent asthma, paroxysmal atrial fibrillation, hypertension, history of CAD, GERD, primary open-angle glaucoma, depression, presented to ED on 12/03 with weakness and near syncope. " Patient was recently in the hospital for left ankle sprain and syncope. Syncope thought to be from vasovagal. Echo showed normal EF. With grade 2 diastolic dysfunction and mild mitral regurgitation. Patient was evalauted by cardiology and thought syncope mostly vasovagal. Seen by orthopedics for left ankle pain and was thought most likely sprain. Was given short-term Celebrex and orthotics recommended cam boot. She was discharged to rehab. Patient states she was in rehab for 1 week. She followed with orthopedics clinic and she was given a shot to the left ankle. Last admission chlorthalidone was stopped for hyponatremia and she was placed on nifedipine 60 mg at discharge. She followed with PCP and nifedipine was increased to 90 mg. Today while she was ambulating with walker suddenly felt lightheaded and dizzy and felt like passing out but her significant other held her. She sat in the kitchen chairshe thinks she might have passed out for a moment. EMS was called and brought her here. In the ER labs showed magnesium of 1.0. 2 g of IV magnesium was given and IV fluids were given in ER. Patient still having some ambulatory dysfunction so we called for admission. Patient says still she has some pain in the left ankle. She forgot to bring her boots while coming to the hospital. Denies any headache. No runny nose or sore throat. No cough. Appetite is okay. Eating and drinking okay. No chest pain or shortness of breath. No nausea. No abdominal pain. Normal bowel and bladder movements." Patient reports feeling much improved generally since admission. She denies any other events since being hospitalized. Electrolytes still low at this time. Will continue to aggressively replace. #Near syncope, concern for vasovagal Last admission syncope work was done and thought to be vasovagal Monitor and replace electrolyte disturbances below Orthostatics negative Continue to monitor on Med/ Tele Cardiology following #Elevated troponin #CAD s/p stent in Down trended, no acute chest pain or concerns at this time or associated EKG changes Continue home Losartan 100mg , ASA 81, Atorvastatin Transition to Metoprolol Succinate 25mg BID #HTN Continue losartan 100mg and nifedipine 90mg #Hypomagnesia #Hypokalemia Replacing aggressively Follow labs #Hyponatremia Last admission chlorthalidone was stopped But seems in rehab she was placed on salt tablets Patient does not know that she is on salt tablets Needs monitoring and follow-up, trend BMP #Left ankle sprain Recently received shot to ankle by Ortho On boot PT OT follow-up appointment with Ortho #Ambulation dysfunction PT OT #Hypothyroidism Last admission Synthroid was cut back to 88 but seems back on 100 mcg TSH is okay Needs close follow-up with PCP #Obstructive sleep apnea CPAP nightly #Diabetes Hold metformin Insulin sliding scale Will monitor #Mild persistent asthma Currently stable Continue home inhalers #Paroxysmal atrial fibrillation Seems 1 episode in 2011 On aspirin and beta-monico #Depression On venlafaxine #Primary open-angle glaucoma Continue home eyedrops DVT prophylaxis SCDs and heparin subcu Disposition Med/tele Full code Admission and Anticipated Discharge Date Admission Date: December 03, 2023 Subjective NAEO Reports feeling a bit better over all. She states she feels stronger and has moved around with assistance from the nurses She denies any further near syncopal spells Physical Exam Constitutional: WD/WN, vitals as above Cardiovascular: RRR, no murmur, no edema Gastrointestinal (Abdomen): normal bowel sounds, soft, nontender, no hepatosplenomegaly Results & Data Results & Data Vital Signs (Past 12 Hours) Vital Signs Temp Pulse Resp BP BP BP Pulse Ox 12/04/23 03:00 37.5 C 70 20 165/72 H 95 12/04/23 00:20 168/75 H 12/03/23 23:42 200/80 H 12/03/23 22:00 37.5 C 67 20 200/80 H 93 12/03/23 20:00 78 18 165/79 H 96 O2 Del Method 12/04/23 03:00 Room Air 12/04/23 00:20 12/03/23 23:42 12/03/23 22:00 Room Air 12/03/23 20:00 Room Air Laboratory Results Short CBC 12/04/23 Range/Units 08:03 WBC 9.56 (4.8-10.8) K/ul Hgb 12.2 (12.0-16.0) g/dl Hct 36.6 L (37.0-47.0) % Plt Count 262 (130-400) K/uL [facility] 12/04/23 08:03 Sodium 137 Potassium 3.2 L Chloride 103 Carbon Dioxide 26 BUN 8 Creatinine 0.56 L Glucose 128 H Calcium 8.3 L Medications Administered Home Medications Medication Instructions Recorded Confirmed Last Taken atorvastatin 20 mg tablet 20 mg PO 08/22/19 12/03/23 12/01/23 coenzyme Q10 100 mg capsule 100 mg PO [facility] 08/22/19 12/03/23 12/02/23 (CoQ-10) cyanocobalamin (vitamin B-12) 1,000 mcg PO QPM 08/22/19 12/03/23 12/01/23 1,000 mcg capsule dexlansoprazole 60 mg 60 mg PO [facility] 08/22/19 12/03/23 12/02/23 capsule,biphase delayed release (Dexilant) fluticasone propionate 50 2 spray intranasal [facility] 08/22/19 12/03/23 05/08/22 mcg/actuation nasal spray,suspension losartan 100 mg tablet 100 mg PO [facility] 08/22/19 12/03/23 12/02/23 metformin 850 mg tablet 850 mg PO BID 08/22/19 12/03/23 12/02/23 metoprolol tartrate 25 mg tablet 25 mg PO BID 08/22/19 12/03/23 12/02/23 montelukast 10 mg tablet 10 mg PO QPM 08/22/19 12/03/23 12/01/23 multivitamin 1 tab PO DAILY 08/22/19 12/03/23 12/02/23 venlafaxine 37.5 mg 37.5 mg PO DAILY 08/24/19 12/03/23 05/08/22 capsule,extended release 24 hr bimatoprost 0.01 % eye drops 1 drp OPB 05/08/22 12/03/23 12/01/23 (Sumeet) albuterol sulfate 90 mcg/actuation 2 puff inhalation Q4H PRN 10/23/23 12/03/23 Unknown aerosol inhaler Shortness Of Breath Or Wheezing ascorbic acid (vitamin C) 500 mg 500 mg PO [facility] 10/23/23 12/03/23 12/02/23 tablet aspirin 81 mg tablet,delayed 81 mg PO QPM 10/23/23 12/03/23 12/01/23 release (Ecotrin Low Strength) azelastine 137 mcg (0.1 %) nasal 2 spray intranasal QPM 10/23/23 12/03/23 12/01/23 spray aerosol cholecalciferol (vitamin D3) 25 25 mcg PO QAM 10/23/23 12/03/23 12/02/23 mcg (1,000 unit) tablet fluticasone 250 mcg-salmeterol 50 1 inh inhalation BID 10/23/23 12/03/23 Unknown mcg/dose blistr powdr for inhalation (Wixela Inhub) magnesium oxide 400 mg (241.3 mg 400 mg PO QAM 10/23/23 12/03/23 12/02/23 magnesium) tablet oxybutynin chloride 10 mg 10 mg PO QAM 10/23/23 12/03/23 12/02/23 tablet,extended release 24 hr zinc gluconate 50 mg tablet 50 mg PO QPM 10/23/23 12/03/23 Unknown ketoconazole 2 % topical cream 1 applic topical BID 12/02/23 12/02/23 Unknown levothyroxine 100 mcg tablet 100 mcg PO DAILYBB 12/02/23 12/03/23 12/02/23 nifedipine 90 mg tablet,extended 90 mg PO QAM 12/02/23 12/03/23 12/02/23 release 24 hr sodium chloride 1,000 mg soluble 1,000 mg PO [facility] 12/02/23 12/03/23 12/02/23 tablet potassium chloride 10 mEq 20 meq PO BID 12/03/23 12/03/23 Unknown tablet,extended release(part/cryst) (Klor-Con M) Active Medications Generic Name Dose Route Start Last Admin Trade Name Freq PRN Reason Stop Dose Admin Ascorbic Acid 500 mg 12/03/23 09:00 12/04/23 08:31 Ascorbic Acid 500 Mg Tab PO 01/02/24 08:59 500 mg QAM ALYSA Administration Aspirin 81 mg 12/03/23 21:00 12/03/23 20:53 Aspirin 81 Mg Ectab PO 01/02/24 20:59 81 mg QPM ALYSA Administration Atorvastatin Calcium 20 mg 12/03/23 21:00 12/03/23 20:53 Atorvastatin 20 Mg Tab PO 01/02/24 20:59 20 mg HS ALYSA Administration Azelastine HCl 2 sprays 12/03/23 21:00 12/03/23 20:54 Azelastine Hcl 0.1% Nasal 200 Sprays/27,400 Mcg Btl NA 01/02/24 20:59 2 sp rays QPM ALYSA Administration Bimatoprost 1 drops 12/03/23 21:00 12/03/23 20:55 Bimatoprost 0.01% Op Soln 2.5 Ml Btl OP 01/02/24 20:59 1 drops HS ALYSA Administration Cyanocobalamin 1,000 mcg 12/03/23 21:00 12/03/23 20:53 Cyanocobalamin (B-12) 500 Mcg Tablet PO 01/02/24 20:59 1,000 mcg QPM ALYSA Administration Fluticasone Propionate 2 sprays 12/03/23 09:00 12/04/23 08:32 Fluticasone Propionate Na Spr 16 Gm Btl NA 01/02/24 08:59 2 sprays QAM ALYSA Administration Fluticasone/Vilanterol 1 puffs 12/03/23 09:00 12/04/23 08:32 Fluticasone/Vilanterol 200/25mcg 14 Puffs/Inhaler INH 01/02/24 08:59 1 puffs DAILY ALYSA Administration Heparin Sodium (Porcine) 5,000 units 12/03/23 09:00 12/04/23 08:32 Heparin Sod 5,000 Unit/0.5 Ml Vial SQ 01/02/24 08:59 5,000 units Q12 ALSYA Administration Insulin Aspart 0 units 12/03/23 07:30 12/04/23 09:25 Insulin Aspart Per Unit Charge SC 01/02/24 07:29 Not Given ACHS ALYSA Levothyroxine Sodium 100 mcg 12/03/23 06:30 12/04/23 06:14 Levothyroxine Sodium 100 Mcg Tablet PO 01/02/24 06:29 100 mcg DAILYBB ALYSA Administration Losartan Potassium 100 mg 12/03/23 09:00 12/04/23 08:31 Losartan Potassium 50 Mg Tab PO 01/02/24 08:59 100 mg QAM ALYSA Administration Magnesium Oxide 400 mg 12/03/23 09:00 12/04/23 08:31 Magnesium Oxide 400 Mg Tab PO 01/02/24 08:59 400 mg QAM ALYSA Administration Metoprolol Tartrate 25 mg 12/03/23 09:00 12/04/23 08:30 Metoprolol Tartrate 25 Mg Tab PO 01/02/24 08:59 25 mg BID ALYSA Administration Montelukast Sodium 10 mg 12/03/23 21:00 12/03/23 20:52 Montelukast Sodium 10 Mg Tablet PO 01/02/24 20:59 10 mg QPM ALYSA Administration Multivitamins 1 tab 12/03/23 09:00 12/04/23 08:30 Multivitamin Tab PO 01/02/24 08:59 1 tab DAILY ALYSA Administration Nifedipine 90 mg 12/03/23 09:00 12/04/23 08:31 Nifedipine Extended Rel 30 Mg Tabcr PO 01/02/24 08:59 90 mg QAM ALYSA Administration Oxybutynin Chloride 10 mg 12/03/23 09:00 12/04/23 08:30 Oxybutynin Chloride Xl 5 Mg Tabcr PO 01/02/24 08:59 10 mg QAM ALYSA Administration Pantoprazole Sodium 40 mg 12/03/23 09:00 12/04/23 08:31 Pantoprazole 40 Mg Tab PO 01/02/24 08:59 40 mg QAM ALYSA Administration Potassium Chloride 20 meq 12/03/23 21:00 12/04/23 08:31 Potassium Chloride Crtab 20 Meq Tabcr PO 01/02/24 20:59 20 meq BID ALYSA Administration Sodium Chloride 1 gm 12/03/23 09:00 12/04/23 08:30 Sodium Chloride 1 Gm Tablet PO 01/02/24 08:59 1 gm AMHS ALYSA Administration Venlafaxine HCl 37.5 mg 12/03/23 09:00 12/04/23 08:31 Venlafaxine Hcl Xr 37.5 Mg Capxr PO 01/02/24 08:59 37.5 mg DAILY ALYSA Administration Vitamin D 1,000 units 12/03/23 09:00 12/04/23 08:30 Cholecalciferol 1,000 Units 25 Mcg Tab PO 01/02/24 08:59 1,000 units QAM ALYSA Administration
[2023-12-04 08:26] LABS: Hematocrit (blood only) 36.6 % (37.0-47.0); Hemoglobin 12.2 g/dl (12.0-16.0); Mean Corpuscular Hemoglobin 29.4 pg (25.0-34.0); Mean Corpuscular Hgb Conc 33.3 g/dL (32.0-36.0); Mean Corpuscular Volume 88.2 fL (80.0-100.0); Mean Platelet Volume 10.8 fL (9.4-12.4); Platelet Count 262 K/uL (130-400); RDW Coefficient of Variation 15.1 % (11.5-14.5); RDW Standard Deviation 48.9 fL (36.4-46.3); Red Blood Count 4.15 M/uL (4.20-5.40); White Blood Count 9.56 K/ul (4.8-10.8)
[2023-12-04] MEDS: MULTIVITAMIN TAB PO SCH (08:30)
[2023-12-04] MEDS: OXYBUTYNIN CHLORIDE XL 5 MG TABCR PO SCH (08:30)
[2023-12-04] MEDS: SODIUM CHLORIDE 1 GM TABLET PO SCH ×2 (08:30→20:38)
[2023-12-04] MEDS: METOPROLOL TARTRATE 25 MG TAB PO SCH (08:30)
[2023-12-04] MEDS: CHOLECALCIFEROL 1,000 UNITS 25 MCG TAB PO SCH (08:30)
[2023-12-04] MEDS: MAGNESIUM OXIDE 400 MG TAB PO SCH (08:31)
[2023-12-04] MEDS: LOSARTAN POTASSIUM 50 MG TAB PO SCH (08:31)
[2023-12-04] MEDS: VENLAFAXINE HCL XR 37.5 MG CAPXR PO SCH (08:31)
[2023-12-04] MEDS: ASCORBIC ACID 500 MG TAB PO SCH (08:31)
[2023-12-04] MEDS: NIFEdipine EXTENDED REL 30 MG TABCR PO SCH (08:31)
[2023-12-04] MEDS: PANTOprazole 40 MG TAB PO SCH (08:31)
[2023-12-04] MEDS: POTASSIUM CHLORIDE CRTAB 20 MEQ TABCR PO SCH ×2 (08:31→20:47)
[2023-12-04] MEDS: FLUTICASONE PROPIONATE NA SPR 16 GM BTL SCH (08:32)
[2023-12-04] MEDS: FLUTICASONE/VILANTEROL 200/25MCG 14 PUFFS/INHALER INH SCH (08:32)
[2023-12-04] MEDS: HEPARIN SOD 5,000 UNIT/0.5 ML VIAL SQ SCH ×2 (08:32→20:41)
[2023-12-04 08:46] LABS: BUN Creatinine Ratio 14.3 (10-20); Calcium 8.3 mg/dl (8.6-10.3); Creatinine Clr Calc Pharmacy 70.6 ml/min; Est GFR (African American) 99.2 ml/min; Est GFR (Non-African American) 85.6 ml/min; Magnesium 1.3 mg/dl (1.7-2.4); Potassium 3.2 mmol/L (3.5-5.1)
[2023-12-04] MEDS: INSULIN ASPART PER UNIT CHARGE SC SCH ×4 (09:25→20:39)
[2023-12-04] MEDS ORDERED: POTASSIUM CHLORIDE CRTAB 20 MEQ TABCR PO STA (12:06)
[2023-12-04] MEDS: MAGNESIUM SULFATE / D5W 1 GM/100 ML BAG IV SCH ×4 (13:06→20:35)
--- NOTE | 2023-12-04 14:39 | Cardiology Progress Note ---
Date of Service December 04, 2023 Assessment & Plan (1) Near syncope: (2) Hypomagnesemia: (3) Hypokalemia: (4) Elevated troponin: (5) HTN (hypertension): Plan Assessment: 83 year-old female with near syncopal symptoms during position change/ambulation, history of recurrent syncope in past, new troponin elevation in the absence of acute EKG changes or chest pain. Patient has history of underlying known coronary heart disease with remote PCI/stent in approximately 1999 at [facility], anatomical details unknown. Continue observation on telemetry. Potassium and Magnesium still remain low and pt is receiving IV magnesium replacement now. Oral potassium replacement already ordered. Continue Sq Heparin for DVT prophylaxis. SBP 200 mm Hg at 2300, improved to 166/70 . Continue metoprolol, losartan, nifedipine, ASA, atorvastatin. Repeat BMP and Mg in am of 12/05/23. Admission and Anticipated Discharge Date Admission Date: December 03, 2023 Homero Jha is seen in cardiology follow-up of a near syncopal episode with mild elevation in troponin. She denies any acute cardiac complaints. She was resting comfortably when I went to see her, but easily awakened. She is certainly not her usual energetic self based on my past experience seeing her as an outpatient. Telemetry reveals sinus rhythm in the 70s without arrhythmia. Physical Exam Constitutional: well developed and well nourished; no acute distress and not ill appearing Neck: normal visual inspection and trachea midline Respiratory: normal respiratory effort, lungs clear to auscultation Cardiovascular: Rate/Rhythm: regular rate and regular rhythm Heart Sounds: normal S1, normal S2 and + murmur (+1/6 systolic murmur) Vessels: no JVD Skin: no rashes, warm and dry Psychiatric: A+Ox3, euthymic affect Results & Data Vital Signs (Past 12 Hours) Vital Signs Temp Pulse Pulse Resp BP Pulse Ox O2 Del Method 12/04/23 12:01 37.1 C 67 16 166/70 H 93 Room Air 12/04/23 08:00 62 12/04/23 07:54 36.9 C 69 16 188/76 H 91 Room Air 12/04/23 03:00 37.5 C 70 20 165/72 H 95 Room Air Laboratory Results Cardiac Enzymes 12/03/23 12/04/23 Range/Units 18:28 00:54 Troponin I High Sens 265.1 H* 190.1 H* D (0-14) pg/ml CBC 12/04/23 Range/Units 08:03 WBC 9.56 (4.8-10.8) K/ul RBC 4.15 L (4.20-5.40) M/uL Hgb 12.2 (12.0-16.0) g/dl Hct 36.6 L (37.0-47.0) % Plt Count 262 (130-400) K/uL Comprehensive Metabolic Panel 12/04/23 Range/Units 08:03 Sodium 137 (136-145) mmol/L Potassium 3.2 L (3.5-5.1) mmol/L Chloride 103 (98-107) mmol/L Carbon Dioxide 26 (21-32) mmol/L BUN 8 (6-23) mg/dl Creatinine 0.56 L (0.6-1.2) mg/dl Glucose 128 H (70-99(Fasting)) mg/dl Calcium 8.3 L (8.6-10.3) mg/dl Intake and Output 12/03/23 12/04/23 12/04/23 22:59 06:59 14:59 Intake Total 1100 / 2550 350 / 2550 1000 / 1000 Output Total 1200 / 2300 1100 / 2300 Balance -100 / 250 -750 / 250 1000 / 1000 Intake: IV 1000 / 2100 1000 / 1000 Sodium Chloride 0.9% 1,000 ml @ 1000 / 1000 1000 / 1000 80 mls/hr IV .[id number] [facility] Rx#: [id number] Oral 100 / 450 350 / 450 Output: Urine 900 / 1400 500 / 1400 Urine Amount (Catheter) 300 / 900 600 / 900 External 300 / 900 600 / 900 Other: Weight 74.3 kg Diagnostic Findings EKG performed 12/04/2023 and interpret independently: Sinus rhythm at 69 bpm, no significant repolarization changes. Summary of echocardiogram performed 12/03/2023: Mild concentric left ventricular hypertrophy Normal left ventricular wall motion LVEF normal to hyperdynamic in the range of 65-70% Severe mitral annular calcification Echogenicity present at the posterior mitral valve annulus likely representing calcific shadowing No significant mitral regurgitation Blood cultures obtained 12/03/2023 with no growth thus far x 2. (5) HTN (hypertension) Hypertension type: primary hypertension Qualified Code(s): I10 - Essential (primary) hypertension
[2023-12-04] MEDS: ATORVASTATIN 20 MG TAB PO SCH (20:36)
[2023-12-04] MEDS: MONTELUKAST SODIUM 10 MG TABLET PO SCH (20:36)
[2023-12-04] MEDS: ASPIRIN 81 MG ECTAB PO SCH (20:37)
[2023-12-04] MEDS: METOPROLOL SUCC 25MG EXT REL TAB PO SCH (20:39)
[2023-12-04] MEDS: CYANOCOBALAMIN (B-12) 500 MCG TABLET PO SCH (20:40)
[2023-12-04] MEDS: AZELASTINE HCL 0.1% NASAL 200 SPRAYS/27,400 MCG BTL SCH (20:41)
[2023-12-04] MEDS: BIMATOPROST 0.01% OP SOLN 2.5 ML BTL OP SCH (20:41)
[2023-12-05] MEDS: LEVOTHYROXINE SODIUM 100 MCG TABLET PO SCH (05:36)
--- NOTE | 2023-12-05 06:28 | Hospitalist Progress Note ---
Date of Service December 05, 2023 Assessment & Plan (1) Near syncope: Plan: Ms. Palacios is an 83-year-old female with past med history significant for type 2 diabetes, hypothyroidism, hyperlipidemia, obstructive sleep apnea, mild persistent asthma, paroxysmal atrial fibrillation, hypertension, history of CAD, GERD, primary open-angle glaucoma, depression, presented to ED on 12/03 with weakness and near syncope. " Patient was recently in the hospital for left ankle sprain and syncope. Syncope thought to be from vasovagal. Echo showed normal EF. With grade 2 diastolic dysfunction and mild mitral regurgitation. Patient was evalauted by cardiology and thought syncope mostly vasovagal. Seen by orthopedics for left ankle pain and was thought most likely sprain. Was given short-term Celebrex and orthotics recommended cam boot. She was discharged to rehab. Patient states she was in rehab for 1 week. She followed with orthopedics clinic and she was given a shot to the left ankle. Last admission chlorthalidone was stopped for hyponatremia and she was placed on nifedipine 60 mg at discharge. She followed with PCP and nifedipine was increased to 90 mg. Today while she was ambulating with walker suddenly felt lightheaded and dizzy and felt like passing out but her significant other held her. She sat in the kitchen chairshe thinks she might have passed out for a moment. EMS was called and brought her here. In the ER labs showed magnesium of 1.0. 2 g of IV magnesium was given and IV fluids were given in ER. Patient still having some ambulatory dysfunction so we called for admission. Patient says still she has some pain in the left ankle. She forgot to bring her boots while coming to the hospital. Denies any headache. No runny nose or sore throat. No cough. Appetite is okay. Eating and drinking okay. No chest pain or shortness of breath. No nausea. No abdominal pain. Normal bowel and bladder movements." Patient reports feeling much improved generally since admission. She denies any other events since being hospitalized. Today, she reports left side weakness of her upper extremity, as well as some tingling that has been ongoing for days. There was associated swelling of the left wrist, which seemed MSK in nature, especially given the pain with supination/pronation. Discussion was had with Dr. Peacock regarding patient, who knows patient for some time. Decision was made to pursue MRI. MRI revealed embolic stroke. Patient with known a fib but was discontinued off of warfarin due to bleeding after dental procedure. #Cardioembolic stroke, known history of a fib #Paroxsymal A FIB -not on anticoagulation since, remote history of PAF no longer on AC -Symptoms >48hours, predominately marked by left arm weakness, with notable MSK symptoms as well MRI with Scattered small acute infarcts as described above, likely embolic. -Neurology consult, will hold on Code Stroke given timing of stoke will make patient ineligble for TNK -Cardiology following -Carotid duplex ordered -likely plan for apixiban 5mg BID -Continue Metoprolol 25mg BID -Monitor on telemetry #Left wrist swelling/pain -pain with supination/pronation -ICE, voltaren topical -XRAY ordered #Near syncope, concern for vasovagal Potentially related to embolic shower noted on MRI 12/05 Last admission syncope work was done and thought to be vasovagal Monitor and replace electrolyte disturbances below Orthostatics negative Continue to monitor on Med/ Tele Cardiology following #Elevated troponin #CAD s/p stent in Down trended, no acute chest pain or concerns at this time or associated EKG changes Continue home Losartan 100mg , ASA 81, Atorvastatin Transition to Metoprolol Succinate 25mg BID #HTN Continue losartan 100mg and nifedipine 90mg #Hypomagnesia #Hypokalemia Replacing aggressively Follow labs #Hyponatremia Last admission chlorthalidone was stopped But seems in rehab she was placed on salt tablets Patient does not know that she is on salt tablets Needs monitoring and follow-up, trend BMP #Left ankle sprain Recently received shot to ankle by Ortho On boot PT OT follow-up appointment with Ortho #Ambulation dysfunction PT OT #Hypothyroidism Last admission Synthroid was cut back to 88 but seems back on 100 mcg TSH is okay Needs close follow-up with PCP #Obstructive sleep apnea CPAP nightly #Diabetes Hold metformin Insulin sliding scale Will monitor #Mild persistent asthma Currently stable Continue home inhalers #Depression On venlafaxine #Primary open-angle glaucoma Continue home eyedrops DVT prophylaxis SCDs and heparin subcu, planning for apixaban Disposition Med/tele Full code I spent a total of60 minutes coordinating, documenting, and providing care for this patient excluding time spent in the performance of separately billed services. Admission and Anticipated Discharge Date Admission Date: December 03, 2023 Subjective Evaluated patient at bedside, initially states she was doing well. However, around her fall she reported that she was experiencing weakness, predominately on the left side. She notes pain with turning of her wrist and swelling, but is unsure if it is related to her fall. She endorses some tingling along her ulnar aspect, but otherwise denies any vision changes, facial droop/drooling, or other acute concerns. Nurses called me to bedside to eval around 1200--patient with no focal cranial nerve deficits, seemed to have issues with bilateral upper extremity weakness in proximal group, however weakness in left polisher numeral noted, which was difficult to ascertain give pain also with palpation to ulnar aspect of wrist. Patient states that this L arm weakness in particular was ongoing for greater than 2 days now, around the time of fall, but not clear if it was injured during her fall/near syncopal episode. Physical Exam Constitutional: WD/WN, vitals as above Respiratory: normal respiratory effort, lungs clear to auscultation Cardiovascular: RRR, no murmur, no edema Musculoskeletal: swelling noted around left wrist, tenderness to ulnar aspect Neurologic: CNII-XII intact, no facial droop or slurred speech noted Left arm strength/polisher numeral 2/5, Right arm 5/5 Proximal Upper extremity groups 4/5 bilaterally Pain with pronation, however, no drift noted Strength 4/5 in bilateral lower extremities Results & Data Results & Data Vital Signs (Past 12 Hours) Vital Signs Temp Pulse Pulse Resp BP Pulse Ox O2 Del Method 12/05/23 02:56 37.1 C 82 16 152/75 H 91 Room Air 12/04/23 23:34 70 12/04/23 23:13 37.0 C 77 16 157/71 H 90 Room Air 12/04/23 19:39 37.0 C 76 16 121/69 90 Room Air Laboratory Results Short CBC 12/05/23 Range/Units 06:59 WBC 10.81 H (4.8-10.8) K/ul Hgb 12.7 (12.0-16.0) g/dl Hct 38.3 (37.0-47.0) % Plt Count 271 (130-400) K/uL BMP 12/05/23 06:59 Sodium 135 L Potassium 4.1 D Chloride 103 Carbon Dioxide 25 BUN 11 Creatinine 0.54 L Glucose 145 H Calcium 8.8 Diagnostic Findings Brain MRI 12/05/23 12:28 Brain MRI WITHOUT CONTRAST HISTORY: Recent syncope. r/o stroke TECHNIQUE: Multiplanar multisequence MRI of the brain was performed without the use of contrast. COMPARISON STUDY: Head CT 12/02/2023. Brain MRI 06/08/2011. FINDINGS: There is an 11 mm focus of restricted diffusion within the right cerebellar hemisphere and an 8 mm focus of restricted diffusion within the right side of the cerebellar vermis consistent with acute infarcts. There are few additional punctate foci of restricted diffusion seen within the left frontal lobe, bilateral parietal lobes, and left thalamus. These are also consistent with acute infarcts. This is likely due to underlying embolic phenomena. The midline structures are intact. There is no mass, hematoma, midline shift. The paranasal sinuses and mastoid air cells are clear. The major vascular flow-voids at the skull base are well-maintained. Prior bilateral lens replacement. The ventricles and sulci demonstrate mild age-related involutional changes. T2 hyperintensity seen within the white matter of the supratentorial brain favors moderate microvascular ischemic change. This has progressed in the interval. IMPRESSION: 1. Scattered small acute infarcts as described above, likely embolic. 2. Moderate microvascular ischemic changes. ACT 112: Negative or not required by law. Electronically signed by: Charlie Atkinson M.D. 12/05/2023 1:32 PM Medications Administered Home Medications Medication Instructions Recorded Confirmed Last Taken atorvastatin 20 mg tablet 20 mg PO HS 08/22/19 12/03/23 12/01/23 coenzyme Q10 100 mg capsule 100 mg PO QAM 08/22/19 12/03/23 12/02/23 (CoQ-10) cyanocobalamin (vitamin B-12) 1,000 mcg PO QPM 08/22/19 12/03/23 12/01/23 1,000 mcg capsule dexlansoprazole 60 mg 60 mg PO QAM 08/22/19 12/03/23 12/02/23 capsule,biphase delayed release (Dexilant) fluticasone propionate 50 2 spray intranasal QAM 08/22/19 12/03/23 05/08/22 mcg/actuation nasal spray,suspension losartan 100 mg tablet 100 mg PO QAM 08/22/19 12/03/23 12/02/23 metformin 850 mg tablet 850 mg PO BIDM 08/22/19 12/03/23 12/02/23 metoprolol tartrate 25 mg tablet 25 mg PO BID 08/22/19 12/03/23 12/02/23 montelukast 10 mg tablet 10 mg PO QPM 08/22/19 12/03/23 12/01/23 multivitamin 1 tab PO DAILY 08/22/19 12/03/23 12/02/23 venlafaxine 37.5 mg 37.5 mg PO DAILY 08/24/19 12/03/23 05/08/22 capsule,extended release 24 hr bimatoprost 0.01 % eye drops 1 drp OPB HS 05/08/22 12/03/23 12/01/23 (Sumeet) albuterol sulfate 90 mcg/actuation 2 puff inhalation Q4H PRN 10/23/23 12/03/23 Unknown aerosol inhaler Shortness Of Breath Or Wheezing ascorbic acid (vitamin C) 500 mg 500 mg PO QAM 10/23/23 12/03/23 12/02/23 tablet aspirin 81 mg tablet,delayed 81 mg PO QPM 10/23/23 12/03/23 12/01/23 release (Ecotrin Low Strength) azelastine 137 mcg (0.1 %) nasal 2 spray intranasal QPM 10/23/23 12/03/23 12/01/23 spray aerosol cholecalciferol (vitamin D3) 25 25 mcg PO QAM 10/23/23 12/03/23 12/02/23 mcg (1,000 unit) tablet fluticasone 250 mcg-salmeterol 50 1 inh inhalation BID 10/23/23 12/03/23 Unknown mcg/dose blistr powdr for inhalation (Wixela Inhub) magnesium oxide 400 mg (241.3 mg 400 mg PO QAM 10/23/23 12/03/23 12/02/23 magnesium) tablet oxybutynin chloride 10 mg 10 mg PO QAM 10/23/23 12/03/23 12/02/23 tablet,extended release 24 hr zinc gluconate 50 mg tablet 50 mg PO QPM 10/23/23 12/03/23 Unknown ketoconazole 2 % topical cream 1 applic topical BID 12/02/23 12/02/23 Unknown levothyroxine 100 mcg tablet 100 mcg PO DAILYBB 12/02/23 12/03/23 12/02/23 nifedipine 90 mg tablet,extended 90 mg PO QAM 12/02/23 12/03/23 12/02/23 release 24 hr sodium chloride 1,000 mg soluble 1,000 mg PO AMHS 12/02/23 12/03/23 12/02/23 tablet potassium chloride 10 mEq 20 meq PO BID 12/03/23 12/03/23 Unknown tablet,extended release(part/cryst) (Cristofer Torres) Active Medications Generic Name Dose Route Start Last Admin Trade Name Vasiliyq PRN Reason Stop Dose Admin Ascorbic Acid 500 mg 12/03/23 09:00 12/05/23 09:07 Ascorbic Acid 500 Mg Tab PO 01/02/24 08:59 500 mg QAM ALYSA Administration Aspirin 81 mg 12/03/23 21:00 12/04/23 20:37 Aspirin 81 Mg Ectab PO 01/02/24 20:59 81 mg QPM ALYSA Administration Atorvastatin Calcium 20 mg 12/03/23 21:00 12/04/23 20:36 Atorvastatin 20 Mg Tab PO 01/02/24 20:59 20 mg HS ALYSA Administration Azelastine HCl 2 sprays 12/03/23 21:00 12/04/23 20:41 Azelastine Hcl 0.1% Nasal 200 Sprays/27,400 Mcg Btl NA 01/02/24 20:59 2 sprays QPM ALYSA Administration Bimatoprost 1 drops 12/03/23 21:00 12/04/23 20:41 Bimatoprost 0.01% Op Soln 2.5 Ml Btl OP 01/02/24 20:59 1 drops HS ALYSA Administration Cyanocobalamin 1,000 mcg 12/03/23 21:00 12/04/23 20:40 Cyanocobalamin (B-12) 500 Mcg Tablet PO 01/02/24 20:59 1,000 mcg QPM ALYSA Administration Fluticasone Propionate 2 sprays 12/03/23 09:00 12/05/23 09:08 Fluticasone Propionate Na Spr 16 Gm Btl NA 01/02/24 08:59 2 sprays QAM ALYSA Administration Fluticasone/Vilanterol 1 puffs 12/03/23 09:00 12/05/23 09:08 Fluticasone/Vilanterol 200/25mcg 14 Puffs/Inhaler INH 01/02/24 08:59 1 puffs DAILY ALYSA Administration Heparin Sodium (Porcine) 5,000 units 12/03/23 09:00 12/05/23 09:09 Heparin Sod 5,000 Unit/0.5 Ml Vial SQ 01/02/24 08:59 5,000 units Q12 ALYSA Administration Insulin Aspart 0 units 12/03/23 07:30 12/05/23 09:06 Insulin Aspart Per Unit Charge SC 01/02/24 07:29 Not Given ACHS ALYSA Levothyroxine Sodium 100 mcg 12/03/23 06:30 12/05/23 05:36 Levothyroxine Sodium 100 Mcg Tablet PO 01/02/24 06:29 100 mcg DAILYBB ALYSA Administration Losartan Potassium 100 mg 12/03/23 09:00 12/05/23 09:08 Losartan Potassium 50 Mg Tab PO 01/02/24 08:59 100 mg QAM ALYSA Administration Magnesium Oxide 400 mg 12/03/23 09:00 12/05/23 09:07 Magnesium Oxide 400 Mg Tab PO 01/02/24 08:59 400 mg QAM ALYSA Administration Metoprolol Succinate 25 mg 12/04/23 21:00 12/05/23 09:07 Metoprolol Succ 25mg Ext Rel Tab PO 01/03/24 20:59 25 mg BID ALYSA Administration Montelukast Sodium 10 mg 12/03/23 21:00 12/04/23 20:36 Montelukast Sodium 10 Mg Tablet PO 01/02/24 20:59 10 mg QPM ALYSA Administration Multivitamins 1 tab 12/03/23 09:00 12/05/23 09:07 Multivitamin Tab PO 01/02/24 08:59 1 tab DAILY ALYSA Administration Nifedipine 90 mg 12/03/23 09:00 12/05/23 09:07 Nifedipine Extended Rel 30 Mg Tabcr PO 01/02/24 08:59 90 mg QAM ALYSA Administration Oxybutynin Chloride 10 mg 12/03/23 09:00 12/05/23 09:08 Oxybutynin Chloride Xl 5 Mg Tabcr PO 01/02/24 08:59 10 mg QAM ALYSA Administration Pantoprazole Sodium 40 mg 12/03/23 09:00 12/05/23 09:07 Pantoprazole 40 Mg Tab PO 01/02/24 08:59 40 mg QAM ALYSA Administration Potassium Chloride 20 meq 12/03/23 21:00 12/05/23 09:11 Potassium Chloride Crtab 20 Meq Tabcr PO 01/02/24 20:59 20 meq BID ALYSA Administration Sodium Chloride 1 gm 12/03/23 09:00 12/05/23 09:09 Sodium Chloride 1 Gm Tablet PO 01/02/24 08:59 1 gm AMHS ALYSA Administration Venlafaxine HCl 37.5 mg 12/03/23 09:00 12/05/23 09:07 Venlafaxine Hcl Xr 37.5 Mg Capxr PO 01/02/24 08:59 37.5 mg DAILY ALYSA Administration Vitamin D 1,000 units 12/03/23 09:00 12/05/23 09:08 Cholecalciferol 1,000 Units 25 Mcg Tab PO 01/02/24 08:59 1,000 units QAM ALYSA Administration
[2023-12-05 07:20] LABS: Hematocrit (blood only) 38.3 % (37.0-47.0); Hemoglobin 12.7 g/dl (12.0-16.0); Mean Corpuscular Hemoglobin 29.2 pg (25.0-34.0); Mean Corpuscular Hgb Conc 33.2 g/dL (32.0-36.0); Mean Platelet Volume 10.8 fL (9.4-12.4); Platelet Count 271 K/uL (130-400); RDW Coefficient of Variation 14.9 % (11.5-14.5); Red Blood Count 4.35 M/uL (4.20-5.40); White Blood Count 10.81 K/ul (4.8-10.8)
[2023-12-05 07:40] LABS: BUN Creatinine Ratio 20.4 (10-20); Calcium 8.8 mg/dl (8.6-10.3); Creatinine Clr Calc Pharmacy 72.4 ml/min; Est GFR (African American) 100.4 ml/min; Est GFR (Non-African American) 86.7 ml/min; Phosphorus 2.6 mg/dl (2.5-4.9); Potassium 4.1 mmol/L (3.5-5.1)
[2023-12-05] MEDS: INSULIN ASPART PER UNIT CHARGE SC SCH ×4 (09:06→20:52)
[2023-12-05] MEDS: MAGNESIUM OXIDE 400 MG TAB PO SCH (09:07)
[2023-12-05] MEDS: MULTIVITAMIN TAB PO SCH (09:07)
[2023-12-05] MEDS: VENLAFAXINE HCL XR 37.5 MG CAPXR PO SCH (09:07)
[2023-12-05] MEDS: NIFEdipine EXTENDED REL 30 MG TABCR PO SCH (09:07)
[2023-12-05] MEDS: ASCORBIC ACID 500 MG TAB PO SCH (09:07)
[2023-12-05] MEDS: METOPROLOL SUCC 25MG EXT REL TAB PO SCH ×2 (09:07→20:45)
[2023-12-05] MEDS: PANTOprazole 40 MG TAB PO SCH (09:07)
[2023-12-05] MEDS: CHOLECALCIFEROL 1,000 UNITS 25 MCG TAB PO SCH (09:08)
[2023-12-05] MEDS: FLUTICASONE PROPIONATE NA SPR 16 GM BTL SCH (09:08)
[2023-12-05] MEDS: LOSARTAN POTASSIUM 50 MG TAB PO SCH (09:08)
[2023-12-05] MEDS: OXYBUTYNIN CHLORIDE XL 5 MG TABCR PO SCH (09:08)
[2023-12-05] MEDS: FLUTICASONE/VILANTEROL 200/25MCG 14 PUFFS/INHALER INH SCH (09:08)
[2023-12-05] MEDS: SODIUM CHLORIDE 1 GM TABLET PO SCH ×2 (09:09→20:45)
[2023-12-05] MEDS: HEPARIN SOD 5,000 UNIT/0.5 ML VIAL SQ SCH (09:09)
[2023-12-05] MEDS: POTASSIUM CHLORIDE CRTAB 20 MEQ TABCR PO SCH ×2 (09:11→20:46)
--- NOTE | 2023-12-05 12:30 | Cardiology Progress Note ---
Date of Service December 05, 2023 Assessment & Plan (1) Near syncope: (2) Hypomagnesemia: (3) Hypokalemia: (4) Elevated troponin: (5) HTN (hypertension): Plan Assessment: 83 year-old female with near syncopal symptoms during position change/ambulation, history of recurrent syncope in past, new troponin elevation in the absence of acute EKG changes or chest pain. Patient has history of underlying known coronary heart disease with remote PCI/stent in approximately 1999 at [facility], anatomical details unknown. Patient's mental status appears worse than baseline compared to my outpatient recollection, but it is difficult to determine is this is a delirium issue of if she has has a progressive decline since last outpt visit with her. It is difficult to determine of her left arm symptoms are musculoskeletal or neurologic. CT of brain normal on 12/02. Does have some writs swelling. Discussed with Dr Alexander who had already ordered an X-ray. For completeness will also perform MRI of brain. Continue ASA, nifedipine, atorvastatin, losartan, metoprolol. 9 beat run of SVT noted. Question if longer SVT episode played a role in her syncopal episode. Future considerations include outpt Zio Patch or implanted loop recorder and nuclear stress. Admission and Anticipated Discharge Date Admission Date: December 03, 2023 Homero Jha is seen in cardiology follow up. Her mental status is still depressed compared to her usual baseline as an outpatient. Telemetry reveals SR in the 80s. A 9 beat run of SVT was observed at 610 on 12/05/23 with rate of 150 bpm and offset to SR. She describes left arm / hand weekness. Physical Exam Constitutional: well developed and well nourished; no acute distress and not ill appearing Neck: normal visual inspection and trachea midline Respiratory: normal respiratory effort, lungs clear to auscultation Cardiovascular: Rate/Rhythm: regular rate and regular rhythm Heart Sounds: normal S1, normal S2 and + murmur (+1/6 systolic murmur) Vessels: no JVD Skin: no rashes, warm and dry Neurologic: left hand weaker than right. follows commands. Psychiatric: A+Ox3, euthymic affect Results & Data Vital Signs (Past 12 Hours) Vital Signs Temp Pulse Resp BP Pulse Ox O2 Del Method 12/05/23 12:05 36.8 C 79 16 122/69 95 Room Air 12/05/23 07:27 37.4 C 80 18 171/70 H 92 Room Air 12/05/23 02:56 37.1 C 82 16 152/75 H 91 Room Air Laboratory Results CBC 12/05/23 Range/Units 06:59 WBC 10.81 H (4.8-10.8) K/ul RBC 4.35 (4.20-5.40) M/uL Hgb 12.7 (12.0-16.0) g/dl Hct 38.3 (37.0-47.0) % Plt Count 271 (130-400) K/uL Comprehensive Metabolic Panel 12/05/23 Range/Units 06:59 Sodium 135 L (136-145) mmol/L Potassium 4.1 D (3.5-5.1) mmol/L Chloride 103 (98-107) mmol/L Carbon Dioxide 25 (21-32) mmol/L BUN 11 (6-23) mg/dl Creatinine 0.54 L (0.6-1.2) mg/dl Glucose 145 H (70-99(Fasting)) mg/dl Calcium 8.8 (8.6-10.3) mg/dl Intake and Output 12/04/23 12/05/23 12/05/23 22:59 06:59 14:59 Intake Total 1069 / 2069 Output Total 300 / 600 300 / 600 Balance 770 / 1470 -300 / 1470 Intake: IV 400 / 1400 Magnesium Sulfate / D5w 1 gm In 400 / 400 100 ml @ 50 mls/hr IV Q2H [facility] Rx#:[id number] Oral 670 / 670 Output: Urine Amount (Catheter) 300 / 600 300 / 600 External 300 / 600 300 / 600 Other: # Unmeasured Voids 4 Weight 72.7 kg Weight Measurement Method Built in [facility] (5) HTN (hypertension) Hypertension type: primary hypertension Qualified Code(s): I10 - Essential (primary) hypertension
--- NOTE | 2023-12-05 13:35 | Magnetic Resonance Report ---
Brain MRI WITHOUT CONTRAST HISTORY: Recent syncope. r/o stroke TECHNIQUE: Multiplanar multisequence MRI of the brain was performed without the use of contrast. COMPARISON STUDY: Head CT 12/02/2023. Brain MRI 06/08/2011. FINDINGS: There is an 11 mm focus of restricted diffusion within the right cerebellar hemisphere and an 8 mm focus of restricted diffusion within the right side of the cerebellar vermis consistent with acute infarcts. There are few additional punctate foci of restricted diffusion seen within the left f rontal lobe, bilateral parietal lobes, and left thalamus. These are also consistent with acute infarc ts. This is likely due to underlying embolic phenomena. The midline structures are intact. There is n o mass, hematoma, midline shift. The paranasal sinuses and mastoid air cells are clear. The major vas cular flow-voids at the skull base are well-maintained. Prior bilateral lens replacement. The ventric les and sulci demonstrate mild age-related involutional changes. T2 hyperintensity seen within the wh ite matter of the supratentorial brain favors moderate microvascular ischemic change. This has progre ssed in the interval. IMPRESSION: 1. Scattered small acute infarcts as described above, likely embolic. 2. Moderate microvascular ischemic changes. ACT 112: Negative or not required by law. Electronically signed by: Charlie Atkinson M.D. 12/05/2023 1:32 PM
[2023-12-05] MEDS: DICLOFENAC SOD 1% GEL 100 GM TUBE EXT SCH ×3 (15:00→23:33)
--- NOTE | 2023-12-05 15:08 | Communication Note ---
Date of Service: December 05, 2023 Due to concerns of generalized change in mental status compared to the patient's baseline, and left arm weakness, patient underwent an MRI of the brain. Test results reveal multiple bilateral foci consistent with embolic strokes. Patient had already had blood cultures performed on admission that were within normal limits. Patient is well over 12 hours since onset of her subjective symptoms, and therefore a stroke alert was not called, as she is not a candidate for thrombolytic therapy. I called the patient from an outpatient cardiology perspective for about 10 years. She has a history of coronary stent performed in around the year 1999 at [facility], and has had 1 past documented episode of atrial fibrillation in 2011. She had previously been on chronic anticoagulation with Coumadin however in 2019 she had a near syncopal episode with subsequent admission to [facility] she was found to have severe anemia requiring transfusion of 2 units of packed red blood cells. Her outpatient chart includes cardiology visit with me in 2019 at which time we had discussed that she has not had any recurrent documented atrial fibrillation but has had this significant bleeding related issue, as was felt her blood loss took place after a complicated dental extraction procedure. Coumadin was on hold at that time posthospitalization, patient was given the advice to remain off of Coumadin. In light of her presentation this hospital stay and the findings of the MRI, culprit could very well be underlying occult atrial fibrillation with cardioembolic phenomenon to the brain. Proceed with carotid duplex to evaluate for significant atherosclerosis there and proceeding with anticoagulation for presumed underlying atrial fibrillation. This is with the patient, her significant other and All, son, Titus, [id number] , Claudia, and grand daughter, Nelson, were at the bedside. We discussed options such as starting heparin and transitioning to an oral anticoagulant, starting Coumadin, or starting a direct oral anticoagulant such as Eliquis. At this time, we will proceed with Eliquis, first dose now, next dose tomorrow at 9 AM. Case reviewed with Dr Alexander.
[2023-12-05] MEDS ORDERED: APIXABAN 5 MG TABLET PO ONE (15:15)
--- NOTE | 2023-12-05 15:39 | Neurology Consultation ---
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 Agree with cardiology plan for anticoagulation. No further workup recommended. Therapy evals for placement. Patient can follow-up with neurology in 4-6 weeks. Telehealth Consultation Telehealth Information Telehealth Information: I performed this visit using a real-time telehealth connection between my location and the patients location ([facility]). After connecting through interactive tele-video, patient was identified by name and date of and/or wristband check.Patient (or authorized healthcare retail sales representative) was informed that this was a telemedicine visit and it was being conducted confidentially over secure lines. My office door was closed and no one else was present in the room with me.Patient (or authorized healthcare retail sales representative) provided consent to proceed with the visit, expressed an understanding of privacy and security of the telemedicine visit, and gave permission to have a hospital retail sales representative in the room in order to assist with the visit and to conduct portions of the visit, as needed. I informed the patient (or authorized healthcare retail sales representative) that I reviewed their record and presented the opportunity for them to ask any questions regarding the visit today. The patient agreed to participate. History of Present Illness Reason for Consultation: Embolic stroke Requesting Physician: Dr. Alexander Attending Physician: Dali Alexander MD History of Present Illness Yudelka Palacios is an 83 yo F admitted with generalized weakness L>R and near syncope. She has a history of PAF not on AC and an MRI was performed which revealed an embolic stroke. Currently the patient reports that she is unable to use her L hand though she can lift her left arm. She also reports difficulty moving her L foot which interferes with her ability to walk. She is unsure why she was not on anticoagulation for her afib, no specific contraindications she is aware of. Allergies Allergy/AdvReac Type Severity Reaction Status Date / Time Penicillins Allergy Mild . Verified 11/15/23 13:55 broccoli Allergy Unknown GAS Unverified 11/15/23 13:55 grapefruit Allergy Unknown BRONCHITIS Unverified 11/15/23 13:55 mold Allergy Unknown asthma Verified 11/15/23 13:55 symptoms orange Allergy Unknown BRONCHITIS Unverified 11/15/23 13:55 paroxetine Allergy Unknown ANAPHYLAXIS Unverified 11/15/23 13:55 pollen extracts Allergy Unknown asthma Verified 11/15/23 13:55 symptoms vasquez AdvReac Unknown gas and Verified 12/03/23 06:17 bloating with consuption of green or kidneys beans crab AdvReac Unknown diarrhea Verified 11/15/23 13:55 peanut AdvReac Unknown gas/bloatin Unverified 11/15/23 13:55 g Home Medications Medication Instructions Recorded Confirmed Type atorvastatin 20 mg tablet 20 mg PO HS 08/22/19 12/03/23 History coenzyme Q10 100 mg capsule 100 mg PO QAM 08/22/19 12/03/23 History (CoQ-10) cyanocobalamin (vitamin B-12) 1,000 mcg PO QPM 08/22/19 12/03/23 History 1,000 mcg capsule dexlansoprazole 60 mg 60 mg PO QAM 08/22/19 12/03/23 History capsule,biphase delayed release (Dexilant) fluticasone propionate 50 2 spray intranasal QA 08/22/19 12/03/23 History mcg/actuation nasal spray,suspension losartan 100 mg tablet 100 mg PO QAM 08/22/19 12/03/23 History metformin 850 mg tablet 850 mg PO BIDM 08/22/19 12/03/23 History metoprolol tartrate 25 mg tablet 25 mg PO BID 08/22/19 12/03/23 History montelukast 10 mg tablet 10 mg PO QPM 08/22/19 12/03/23 History multivitamin 1 tab PO DAILY 08/22/19 12/03/23 History venlafaxine 37.5 mg 37.5 mg PO DAILY 08/24/19 12/03/23 History capsule,extended release 24 hr bimatoprost 0.01 % eye drops 1 drp OPB HS 05/08/22 12/03/23 History (Lumigan) albuterol sulfate 90 mcg/actuation 2 puff inhalation Q4H PRN 10/23/23 12/03/23 History aerosol inhaler Shortness Of Breath Or Wheezing ascorbic acid (vitamin C) 500 mg 500 mg PO QAM 10/23/23 12/03/23 History tablet aspirin 81 mg tablet,delayed 81 mg PO QPM 10/23/23 12/03/23 History release (Ecotrin Low Strength) azelastine 137 mcg (0.1 %) nasal 2 spray intranasal QPM 10/23/23 12/03/23 History spray aerosol cholecalciferol (vitamin D3) 25 25 mcg PO QAM 10/23/23 12/03/23 History mcg (1,000 unit) tablet fluticasone 250 mcg-salmeterol 50 1 inh inhalation BID 10/23/23 12/03/23 History mcg/dose blistr powdr for inhalation (Wixela Inhub) magnesium oxide 400 mg (241.3 mg 400 mg PO QAM 10/23/23 12/03/23 History magnesium) tablet oxybutynin chloride 10 mg 10 mg PO QAM 10/23/23 12/03/23 History tablet,extended release 24 hr zinc gluconate 50 mg tablet 50 mg PO QPM 10/23/23 12/03/23 History ketoconazole 2 % topical cream 1 applic topical BID 12/02/23 12/02/23 History levothyroxine 100 mcg tablet 100 mcg PO DAILYBB 12/02/23 12/03/23 History nifedipine 90 mg tablet,extended 90 mg PO QAM 12/02/23 12/03/23 History release 24 hr sodium chloride 1,000 mg soluble 1,000 mg PO AMHS 12/02/23 12/03/23 History tablet potassium chloride 10 mEq 20 meq PO BID 12/03/23 12/03/23 History tablet,extended release(part/cryst) (Cristofer Torres) Patient History Medical History Right rotator cuff tear Right knee DJD CAD (coronary artery disease) stent in 1999 T2DM (type 2 diabetes mellitus) HTN (hypertension) HLD (hyperlipidemia) PAF (paroxysmal atrial fibrillation) DEMARIO (obstructive sleep apnea) Asthma CKD (chronic kidney disease) stage 3, GFR 30-59 ml/min Primary open angle glaucoma GERD (gastroesophageal reflux disease) Hypothyroidism History of placement of stent in LAD coronary artery Sleep apnea Surgical History History of rotator cuff surgery History of cataract extraction History of arthroscopic knee surgery History of tonsillectomy History of appendectomy Stented coronary artery Family History Father CHF (congestive heart failure) Mother Cancer Social History Smoking Status: Never smoker Hx Alcohol Use: No Hx Substance Use: No Preferred Language: Polish Communication Ability: Effective Career Guidance Counselor Required: No Beliefs That Will Affect Care: None marital status: Life Partner Current Living Situation: Spouse Current Living Situation Comment: s/o Feels Safe at Home: Yes Assistive Devices: Cane, CPAP and Walker Review of Systems +L sided weakness Physical Exam Neurological Examination: Mental Status: Awake and alert. Oriented to person, place, and time. Fluent. Comprehension intact. Affect appropriate. Cranial Nerves: II: Reads NIHSS cards, pupils 3/3 to 2/2, matute grossly intact. III/IV/: Versions intact without nystagmus, no gaze preference. VII: Facial expression symmetric VIII: Hearing intact to voice Motor: Reduced strength in the LUE and LLE, unable to maintain against gravity or open her L hand. Coordination: No dysmetria noted Results & Data Vital Signs (Past 12 Hours) Vital Signs Temp Pulse Resp BP Pulse Ox O2 Del Method 12/05/23 12:05 36.8 C 79 16 122/69 95 Room Air 12/05/23 07:27 37.4 C 80 18 171/70 H 92 Room Air Laboratory Results Abnormal lab results 12/04/23 12/04/23 12/05/23 Range/Units 17:16 20:21 06:59 WBC 10.81 H (4.8-10.8) K/ul RDW Std Deviation 48.0 H (36.4-46.3) fL RDW Coeff of Stoney 14.9 H (11.5-14.5) % Sodium 135 L (136-145) mmol/L Creatinine 0.54 L (0.6-1.2) mg/dl BUN/Creatinine Ratio 20.4 H (10-20) Glucose 145 H (70-99(Fasting)) mg/dl POC Glucose 125 H 119 H (70-99) mg/dl 12/05/23 12/05/23 Range/Units 08:07 12:14 WBC (4.8-10.8) K/ul RDW Std Deviation (36.4-46.3) fL RDW Coeff of Stoney (11.5-14.5) % Sodium (136-145) mmol/L Creatinine (0.6-1.2) mg/dl BUN/Creatinine Ratio (10-20) Glucose (70-99(Fasting)) mg/dl POC Glucose 127 H 155 H (70-99) mg/dl Diagnostic Findings MRI brain - embolic stroke
--- NOTE | 2023-12-05 16:50 | Ultrasound Report ---
CAROTID ARTERY ULTRASOUND CLINICAL HISTORY: Embolic strokes. COMPARISON STUDY: Carotid ultrasound June 08, 2011. TECHNIQUE: Real-time, grayscale, and color Doppler sonography of the carotid and vertebral arteries w as performed. Images were viewed in the transverse and longitudinal planes. FINDINGS: There is moderate atherosclerotic plaque present within the left carotid bifurcation and mild plaque within the right carotid bifurcation. Velocity measurements are listed below. COMMON CAROTID PEAK SYSTOLIC VELOCITY (CM/S): RIGHT 79 LEFT 99 ICA PEAK SYSTOLIC VELOCITY (CM/S): RIGHT 59 LEFT 94 Systolic ratios between the internal to common carotid arteries were normal. Antegrade flow is seen in the vertebral arteries. The external carotid arteries are patent. IMPRESSION: Mild to moderate atherosclerotic plaque without evidence for a hemodynamically significa nt stenosis. ACT 112: Negative or not required by law. Electronically signed by: Guillaume Borrego M.D. 12/05/2023 4:49 PM
--- NOTE | 2023-12-05 17:05 | XRay Report ---
XR wrist LT min 3V routine CLINICAL HISTORY: Left wrist pain and swelling. COMPARISON: None FINDINGS: No acute fracture is identified. There are 2 screws within the base of the left first meta carpal. There is chondrocalcinosis within the TFCC. Moderate radiocarpal joint osteoarthritis is pres ent. Well-corticated ossicle along the ulnar styloid is chronic. IMPRESSION: 1. No acute fractures within the left wrist. 2. Moderate radiocarpal joint osteoarthritis. Chondrocalcinosis within the TFCC. 3. 2 cannulated screws within the base of the left first metacarpal. ACT 112: Negative or not required by law. Electronically signed by: Guillaume Borrego M.D. 12/05/2023 5:02 PM
--- NOTE | 2023-12-05 19:23 | Electrocardiogram Report ---
Test Reason : Blood Pressure : / mmHG Vent. Rate : 071 BPM Atrial Rate : 071 BPM P-R Int : 172 ms QRS Dur : 090 ms QT Int : 408 ms P-R-T Axes : 092 -25 051 degrees QTc Int : 443 ms Normal sinus rhythm Minimal voltage criteria for LVH, may be normal variant ( R in aVL ) Borderline ECG When compared with ECG of 03-DEC-2023 09:23, No significant change was found Confirmed by Elmo Brown ([id number]) on 12/05/2023 7:23:28 PM Referred By: REFERRED SELF Confirmed By:Elmo Brown
[2023-12-05] MEDS: CYANOCOBALAMIN (B-12) 500 MCG TABLET PO SCH (20:44)
[2023-12-05] MEDS: ASPIRIN 81 MG ECTAB PO SCH (20:44)
[2023-12-05] MEDS: ATORVASTATIN 20 MG TAB PO SCH (20:44)
[2023-12-05] MEDS: AZELASTINE HCL 0.1% NASAL 200 SPRAYS/27,400 MCG BTL SCH (20:45)
[2023-12-05] MEDS: MONTELUKAST SODIUM 10 MG TABLET PO SCH (20:45)
[2023-12-05] MEDS: BIMATOPROST 0.01% OP SOLN 2.5 ML BTL OP SCH (20:45)
--- NOTE | 2023-12-05 22:27 | Electrocardiogram Report ---
Test Reason : Blood Pressure : / mmHG Vent. Rate : 069 BPM Atrial Rate : 069 BPM P-R Int : 178 ms QRS Dur : 090 ms QT Int : 396 ms P-R-T Axes : 068 199 140 degrees QTc Int : 424 ms Normal sinus rhythm Limb lead reversal Abnormal ECG When compared with ECG of 03-DEC-2023 12:46, Limb lead reversal is now present Confirmed by Elmo Brown ([id number]) on 12/05/2023 10:27:07 PM Referred By: REFERRED SELF Confirmed By:Elmo Brown
[2023-12-06] MEDS: LEVOTHYROXINE SODIUM 100 MCG TABLET PO SCH (05:39)
[2023-12-06] MEDS: DICLOFENAC SOD 1% GEL 100 GM TUBE EXT SCH ×3 (05:39→18:06)
[2023-12-06 06:59] LABS: Hematocrit (blood only) 37.7 % (37.0-47.0); Hemoglobin 12.5 g/dl (12.0-16.0); Mean Corpuscular Hemoglobin 29.2 pg (25.0-34.0); Mean Corpuscular Hgb Conc 33.2 g/dL (32.0-36.0); Mean Corpuscular Volume 88.1 fL (80.0-100.0); Mean Platelet Volume 11.1 fL (9.4-12.4); Platelet Count 274 K/uL (130-400); RDW Standard Deviation 47.9 fL (36.4-46.3); Red Blood Count 4.28 M/uL (4.20-5.40); White Blood Count 10.85 K/ul (4.8-10.8)
[2023-12-06 07:33] LABS: BUN Creatinine Ratio 24.5 (10-20); Creatinine Clr Calc Pharmacy 80.6 ml/min; Est GFR (African American) 103.7 ml/min; Est GFR (Non-African American) 89.5 ml/min; Magnesium 1.6 mg/dl (1.7-2.4); Phosphorus 2.8 mg/dl (2.5-4.9); Potassium 3.8 mmol/L (3.5-5.1)
[2023-12-06] MEDS: APIXABAN 5 MG TABLET PO SCH ×2 (08:15→21:24)
[2023-12-06] MEDS: MAGNESIUM OXIDE 400 MG TAB PO SCH (08:15)
[2023-12-06] MEDS: SODIUM CHLORIDE 1 GM TABLET PO SCH ×2 (08:16→21:24)
[2023-12-06] MEDS: FLUTICASONE/VILANTEROL 200/25MCG 14 PUFFS/INHALER INH SCH (08:16)
[2023-12-06] MEDS: CHOLECALCIFEROL 1,000 UNITS 25 MCG TAB PO SCH (08:16)
[2023-12-06] MEDS: PANTOprazole 40 MG TAB PO SCH (08:16)
[2023-12-06] MEDS: NIFEdipine EXTENDED REL 30 MG TABCR PO SCH (08:17)
[2023-12-06] MEDS: LOSARTAN POTASSIUM 50 MG TAB PO SCH (08:17)
[2023-12-06] MEDS: VENLAFAXINE HCL XR 37.5 MG CAPXR PO SCH (08:17)
[2023-12-06] MEDS: MULTIVITAMIN TAB PO SCH (08:17)
[2023-12-06] MEDS: ASCORBIC ACID 500 MG TAB PO SCH (08:17)
[2023-12-06] MEDS: OXYBUTYNIN CHLORIDE XL 5 MG TABCR PO SCH (08:18)
[2023-12-06] MEDS: METOPROLOL SUCC 25MG EXT REL TAB PO SCH ×2 (08:18→21:24)
[2023-12-06] MEDS: FLUTICASONE PROPIONATE NA SPR 16 GM BTL SCH (08:22)
[2023-12-06] MEDS: POTASSIUM CHLORIDE CRTAB 20 MEQ TABCR PO SCH ×2 (08:24→21:24)
[2023-12-06] MEDS: INSULIN ASPART PER UNIT CHARGE SC SCH ×4 (09:03→21:18)
[2023-12-06] MEDS ORDERED: MAGNESIUM SULFATE / D5W 1 GM/100 ML BAG IV SCH (09:15)
--- NOTE | 2023-12-06 15:21 | Hospitalist Progress Note ---
Date of Service December 06, 2023 Assessment & Plan (1) Near syncope: Plan: Ms. Palacios is an 83-year-old female with past med history significant for type 2 diabetes, hypothyroidism, hyperlipidemia, obstructive sleep apnea, mild persistent asthma, paroxysmal atrial fibrillation, hypertension, history of CAD, GERD, primary open-angle glaucoma, depression, presented to ED on 12/03 with weakness and near syncope. " Patient was recently in the hospital for left ankle sprain and syncope. Syncope thought to be from vasovagal. Echo showed normal EF. With grade 2 diastolic dysfunction and mild mitral regurgitation. Patient was evalauted by cardiology and thought syncope mostly vasovagal. Seen by orthopedics for left ankle pain and was thought most likely sprain. Was given short-term Celebrex and orthotics recommended cam boot. She was discharged to rehab. Patient states she was in rehab for 1 week. She followed with orthopedics clinic and she was given a shot to the left ankle. Last admission chlorthalidone was stopped for hyponatremia and she was placed on nifedipine 60 mg at discharge. She followed with PCP and nifedipine was increased to 90 mg. Today while she was ambulating with walker suddenly felt lightheaded and dizzy and felt like passing out but her significant other held her. She sat in the kitchen chairshe thinks she might have passed out for a moment. EMS was called and brought her here. In the ER labs showed magnesium of 1.0. 2 g of IV magnesium was given and IV fluids were given in ER. Patient still having some ambulatory dysfunction so we called for admission. Patient says still she has some pain in the left ankle. She forgot to bring her boots while coming to the hospital. Denies any headache. No runny nose or sore throat. No cough. Appetite is okay. Eating and drinking okay. No chest pain or shortness of breath. No nausea. No abdominal pain. Normal bowel and bladder movements." Cardioembolic CVA H/O Paroxysmal A FIB --MRI Brain: Scattered small acute infarcts as described above, likely embolic. Moderate microvascular ischemic changes. --Carotid USD: Mild to moderate atherosclerotic plaque without evidence for a hemodynamically significant stenosis. --ECHO: Left ventricle is normal in size. Mild concentric LVH. Basal septum is thickened and angulated consistent with sigmoid septum. Left ventricular wall motion is normal. EF 65 to 70%. Severe mitral annular calcification. High- pressure echogenicity below the posterior mitral valve annulus indents the atrial aspect likely representing calcific shadowing. This was present on prior studies but should be followed. No mitral regurgitation noted. -- Patient was not on anticoagulation for remote paroxysmal A-fib Continue apixaban, statin Update lipid panel Appreciate neurology input Needs follow-up with neurology in 4 to 6 weeks Orthostatic hypotension H/O Hypertension Decrease nifedipine to 30 mg daily Decrease losartan to 50 mg daily Monitor BP Adjust medications as needed Left wrist swelling/pain --X ray:No acute fractures within the left wrist. Moderate radiocarpal joint osteoarthritis. Chondrocalcinosis within the TFCC. 2 cannulated screws within the base of the left first metacarpal. -ICE, voltaren topical Consider ortho evaluation if needed Near syncope Concern for vasovagal Potentially related to embolic shower noted on MRI 12/05 Last admission syncope work was done and thought to be vasovagal Monitor and replace electrolyte disturbances as needed Cardiology following Elevated troponin CAD s/p stent in Down trended, no acute chest pain Continue ASA, Atorvastatin Transition to Metoprolol Succinate 25mg BID Hypomagnesia Hypokalemia Replace electrolytes as needed Monitor Hyponatremia Last admission chlorthalidone was stopped But seems in rehab she was placed on salt tablets Sodium 133 today Monitor Left ankle sprain Recently received shot to ankle by Ortho On boot PT OT Follow-up appointment with Ortho Ambulation dysfunction PT OT Fall precautions Hypothyroidism Normal TSH Continue levothyroxine Obstructive sleep apnea CPAP HS DM II HbA1c 6.0 Hold metformin Continue Insulin sliding scale Monitor BGs Mild persistent asthma Currently stable Continue home inhalers Depression On venlafaxine Primary open-angle glaucoma Continue home eyedrops DVT Px: Apixaban CODE STATUS Full code Admission and Anticipated Discharge Date Admission Date: December 03, 2023 Subjective Patient is seen and examined at bedside States having left-sided weakness Also feels dizziness especially with changing position Denies any nausea, vomiting, chest pain, dyspnea No other complaints Review of Systems Review of Systems: All systems reviewed & are unremarkable except as noted in Subjective Physical Exam Physical Exam: Physical Exam: Vitals signs as noted above General Appearance:Moderately built and nourished, no apparent distress, elderly Head: normocephalic, Atraumatic Eyes: normal inspection, EOMI Neck: supple, Trachea midline Respiratory/Chest: Normal breath sounds, CTA, No accessory muscle use Cardiovascular: S1, S2, + murmur Abdomen/GI:Soft, Non tender, Bowel sounds present Extremities/Musculoskeletal:normal inspection, no edema Neurologic/Psych:AAOX3, LUE, LLE 3/5 otherwise no focal deficits Skin: normal color, warm Results & Data Results & Data Vital Signs (Past 12 Hours) Vital Signs Temp Pulse Pulse Resp BP Pulse Ox O2 Del Method 12/06/23 14:15 89 88/51 L 12/06/23 14:12 75 102/65 12/06/23 14:08 76 113/57 L 12/06/23 11:24 36.7 C 76 17 144/80 H 93 Room Air 12/06/23 07:38 36.4 C L 76 17 166/71 H 94 Room Air 12/06/23 05:56 70 Laboratory Results Short CBC 12/06/23 Range/Units 06:19 WBC 10.85 H (4.8-10.8) K/ul Hgb 12.5 (12.0-16.0) g/dl Hct 37.7 (37.0-47.0) % Plt Count 274 (130-400) K/uL BMP 12/06/23 06:19 Sodium 133 L Potassium 3.8 Chloride 101 Carbon Dioxide 25 BUN 12 Creatinine 0.49 L Glucose 133 H Calcium 9.0
--- NOTE | 2023-12-06 16:15 | Cardiology Progress Note ---
Date of Service December 06, 2023 Assessment & Plan (1) Embolic stroke: (2) Near syncope: (3) Hypomagnesemia: (4) Hypokalemia: (5) Elevated troponin: (6) HTN (hypertension): Plan Assessment: 83 year-old female with near syncopal symptoms during position change/ambulation, history of recurrent syncope in past, new troponin elevation in the absence of acute EKG changes or chest pain. Patient has history of underlying known coronary heart disease with remote PCI/stent in approximately 1999 at [facility], anatomical details unknown. Patient with remote history of atrial fibrillation, in 2011 without documented clinical recurrence. He has been off of anticoagulation since 2019 due to having had a severe bleeding problem at that time after a dental extraction. Due to her change in mental status and left arm weakness, underwent MRI of the brain on 12/05/2023 with findings of bilateral embolic cerebral infarcts. This 5 mg twice daily has thus been added to her prior to hospital treatment to aspirin 81 mg daily. Continue atorvastatin 20 mg daily. Lipid panel planned for tomorrow morning. Neurology input noted and appreciated. Plan for outpatient rehabilitation, likely at [facility] if approved. Admission and Anticipated Discharge Date Admission Date: December 03, 2023 Subjective Patient seen in cardiology follow-up. Status is relatively stable, unchanged, perhaps a little bit better than yesterday. Telemetry reveals sinus rhythm 70s. Physical Exam Constitutional: well developed and well nourished; no acute distress and not ill appearing Neck: normal visual inspection and trachea midline Respiratory: normal respiratory effort, lungs clear to auscultation Cardiovascular: Rate/Rhythm: regular rate and regular rhythm Heart Sounds: normal S1, normal S2 and + murmur (+1/6 systolic murmur) Vessels: no JVD Skin: no rashes, warm and dry Neurologic: Patient with noted left hand/left arm weakness, relatively unchanged compared to 12/05/2023 Psychiatric: A+Ox3, euthymic affect Results & Data Vital Signs (Past 12 Hours) Vital Signs Temp Pulse Pulse Resp BP Pulse Ox O2 Del Method 12/06/23 15:36 36.6 C 79 18 114/69 93 Room Air 12/06/23 14:44 70 12/06/23 14:15 89 88/51 L 12/06/23 14:12 75 102/65 12/06/23 14:08 76 113/57 L 12/06/23 11:24 36.7 C 76 17 144/80 H 93 Room Air 12/06/23 07:38 36.4 C L 76 17 166/71 H 94 Room Air 12/06/23 05:56 70 Laboratory Results CBC 12/06/23 Range/Units 06:19 WBC 10.85 H (4.8-10.8) K/ul RBC 4.28 (4.20-5.40) M/uL Hgb 12.5 (12.0-16.0) g/dl Hct 37.7 (37.0-47.0) % Plt Count 274 (130-400) K/uL Comprehensive Metabolic Panel 12/06/23 Range/Units 06:19 Sodium 133 L (136-145) mmol/L Potassium 3.8 (3.5-5.1) mmol/L Chloride 101 (98-107) mmol/L Carbon Dioxide 25 (21-32) mmol/L BUN 12 (6-23) mg/dl Creatinine 0.49 L (0.6-1.2) mg/dl Glucose 133 H (70-99(Fasting)) mg/dl Calcium 9.0 (8.6-10.3) mg/dl Intake and Output 12/06/23 12/06/23 12/06/23 06:59 14:59 22:59 Intake Total 200 / 460 580 / 580 Output Total 250 / 800 300 / 300 Balance -50 / -340 280 / 280 Intake: IV 100 / 100 Magnesium Sulfate / D5w 1 gm In 100 / 100 100 ml @ 50 mls/hr IV Q2H [facility] Rx#:[id number] Oral 200 / 460 480 / 480 Output: Urine Amount (Catheter) 250 / 800 300 / 300 External 250 / 800 300 / 300 Other: Weight 74.2 kg Weight Measurement Method Built in [facility] Diagnostic Findings CBC 12/06/23 Range/Units 06:19 WBC 10.85 H (4.8-10.8) K/ul RBC 4.28 (4.20-5.40) M/uL Hgb 12.5 (12.0-16.0) g/dl Hct 37.7 (37.0-47.0) % Plt Count 274 (130-400) K/uL Comprehensive Metabolic Panel 12/06/23 Range/Units 06:19 Sodium 133 L (136-145) mmol/L Potassium 3.8 (3.5-5.1) mmol/L Chloride 101 (98-107) mmol/L Carbon Dioxide 25 (21-32) mmol/L BUN 12 (6-23) mg/dl Creatinine 0.49 L (0.6-1.2) mg/dl Glucose 133 H (70-99(Fasting)) mg/dl Calcium 9.0 (8.6-10.3) mg/dl Intake and Output 12/06/23 12/06/23 12/06/23 06:59 14:59 22:59 Intake Total 200 / 460 580 / 580 Output Total 250 / 800 300 / 300 Balance -50 / -340 280 / 280 Intake: IV 100 / 100 Magnesium Sulfate / D5w 1 gm In 100 / 100 100 ml @ 50 mls/hr IV Q2H [facility] Rx#:[id number] Oral 200 / 460 480 / 480 Output: Urine Amount (Catheter) 250 / 800 300 / 300 External 250 / 800 300 / 300 Other: Weight 74.2 kg Weight Measurement Method Built in [facility] (1) Embolic stroke Precerebral and cerebral artery: unspecified cerebral artery Qualified Code(s): I63.40 - Cerebral infarction due to embolism of unspecified cerebral artery (6) HTN (hypertension) Hypertension type: primary hypertension Qualified Code(s): I10 - Essential (primary) hypertension
[2023-12-06] MEDS: CYANOCOBALAMIN (B-12) 500 MCG TABLET PO SCH (21:24)
[2023-12-06] MEDS: MONTELUKAST SODIUM 10 MG TABLET PO SCH (21:24)
[2023-12-06] MEDS: ASPIRIN 81 MG ECTAB PO SCH (21:24)
[2023-12-06] MEDS: AZELASTINE HCL 0.1% NASAL 200 SPRAYS/27,400 MCG BTL SCH (21:24)
[2023-12-06] MEDS: ATORVASTATIN 20 MG TAB PO SCH (21:24)
[2023-12-06] MEDS: BIMATOPROST 0.01% OP SOLN 2.5 ML BTL OP SCH (21:25)
[2023-12-07] MEDS: DICLOFENAC SOD 1% GEL 100 GM TUBE EXT SCH ×4 (00:17→18:39)
[2023-12-07] MEDS: LEVOTHYROXINE SODIUM 100 MCG TABLET PO SCH (05:41)
[2023-12-07 07:34] LABS: Hematocrit (blood only) 35.8 % (37.0-47.0); Hemoglobin 11.9 g/dl (12.0-16.0); Mean Corpuscular Hemoglobin 28.7 pg (25.0-34.0); Mean Corpuscular Hgb Conc 33.2 g/dL (32.0-36.0); Mean Corpuscular Volume 86.5 fL (80.0-100.0); Mean Platelet Volume 11.3 fL (9.4-12.4); Platelet Count 298 K/uL (130-400); RDW Coefficient of Variation 14.7 % (11.5-14.5); RDW Standard Deviation 46.8 fL (36.4-46.3); Red Blood Count 4.14 M/uL (4.20-5.40); White Blood Count 10.83 K/ul (4.8-10.8)
[2023-12-07 08:12] LABS: BUN Creatinine Ratio 27.3 (10-20); C Reactive Protein 16.17 mg/dl (0-0.5); Chol HDL Ratio 2.9 (0-5); Creatinine Clr Calc Pharmacy 71.8 ml/min; Est GFR (African American) 99.8 ml/min; Est GFR (Non-African American) 86.1 ml/min; Magnesium 1.7 mg/dl (1.7-2.4)
[2023-12-07] MEDS: ASCORBIC ACID 500 MG TAB PO SCH (08:58)
[2023-12-07] MEDS: VENLAFAXINE HCL XR 37.5 MG CAPXR PO SCH (08:58)
[2023-12-07] MEDS: CHOLECALCIFEROL 1,000 UNITS 25 MCG TAB PO SCH (08:58)
[2023-12-07] MEDS: LOSARTAN POTASSIUM 50 MG TAB PO SCH (08:59)
[2023-12-07] MEDS: OXYBUTYNIN CHLORIDE XL 5 MG TABCR PO SCH (08:59)
[2023-12-07] MEDS: PANTOprazole 40 MG TAB PO SCH (09:00)
[2023-12-07] MEDS: SODIUM CHLORIDE 1 GM TABLET PO SCH ×2 (09:00→20:54)
[2023-12-07] MEDS: METOPROLOL SUCC 25MG EXT REL TAB PO SCH ×2 (09:00→19:53)
[2023-12-07] MEDS: APIXABAN 5 MG TABLET PO SCH ×2 (09:00→19:53)
[2023-12-07] MEDS: NIFEdipine EXTENDED REL 30 MG TABCR PO SCH (09:00)
[2023-12-07] MEDS: FLUTICASONE PROPIONATE NA SPR 16 GM BTL SCH (09:01)
[2023-12-07] MEDS: MULTIVITAMIN TAB PO SCH (09:01)
[2023-12-07] MEDS: MAGNESIUM OXIDE 400 MG TAB PO SCH (09:01)
[2023-12-07] MEDS: FLUTICASONE/VILANTEROL 200/25MCG 14 PUFFS/INHALER INH SCH (09:02)
[2023-12-07] MEDS: POTASSIUM CHLORIDE CRTAB 20 MEQ TABCR PO SCH ×2 (09:10→20:54)
[2023-12-07] MEDS: INSULIN ASPART PER UNIT CHARGE SC SCH ×4 (09:18→19:56)
--- NOTE | 2023-12-07 11:07 | Cardiology Progress Note ---
Date of Service December 07, 2023 Assessment & Plan (1) Embolic stroke: (2) Near syncope: (3) Hypomagnesemia: (4) Hypokalemia: (5) Elevated troponin: (6) HTN (hypertension): (7) Arthralgia: Plan Assessment: 83 year-old female with near syncopal symptoms during position pelletier e/ambulation, history of recurrent syncope in past, new troponin elevation in the absence of acute EKG changes or chest pain. Patient has history of underlying known coronary heart disease with remote PCI/stent in approximately 1999 at [facility], anatomical details unknown. Patient with remote history of atrial fibrillation, in 2011 without documented clinical recurrence. He has been off of anticoagulation since 2019 due to having had a severe bleeding problem at that time after a dental extraction. The patient had complaint of particular goal pain and swelling dating back to fall. Per inspection today, the ankle is swollen, but nonerythematous. Her left wrist however does have erythema. She has weakness and lifting her left arm, but she does not have a separate complaint of focal pain over the left wrist and thumb with noted erythema. Inflammatory markers obtained including elevated ESR of 110 mm/h, elevated C- reactive protein level of 16.7 mg/dL. -I question if the patient could have subacute serial or even nonbacterial thrombotic endocarditis embolic events causing strokes and septic joint issues. -Blood cultures drawn previously this hospital stay were negative. Will repeat blood cultures as well as ROXANNE screen, ANCA screen, and complement levels. -Recommend proceeding with transesophageal echocardiogram, likely tomorrow, 12/08/2023. Patient agreeable. I spoke to the patient's son who is also agreeable. Case discussed with Dr. Baltazar for the purpose of coordination of care. Continue anticoagulation for now. Admission and Anticipated Discharge Date Admission Date: December 03, 2023 Subjective Patient seen in cardiology follow-up. No new acute complaints. Status a little bit improved compared to 2 days ago. Still with left arm weakness, left wrist/hand erythema and pain. Telemetry reviewed and reveals sinus rhythm with heart rates in the 80s. She has not had any additional SVT since the 8 beat run observed several days ago. Physical Exam Constitutional: well developed and well nourished; no acute distress and not ill appearing Neck: normal visual inspection and trachea midline Respiratory: normal respiratory effort, lungs clear to auscultation Cardiovascular: Rate/Rhythm: regular rate and regular rhythm Heart Sounds: normal S1, normal S2 and + murmur (+1/6 systolic murmur) Vessels: no JVD Musculoskeletal: Left wrist with noted erythema, patient with pain over the dorsal area of her thumb and wrist joint Skin: no rashes, warm and dry Neurologic: Left upper arm weakness Psychiatric: A+Ox3, euthymic affect Results & Data Vital Signs (Past 12 Hours) Vital Signs Temp Pulse Pulse Resp BP Pulse Ox O2 Del Method 12/07/23 07:47 36.4 C L 82 16 172/80 H 95 Room Air 12/07/23 07:25 77 12/07/23 03:00 36.6 C 75 18 149/71 H 94 Room Air (1) Embolic stroke Precerebral and cerebral artery: unspecified cerebral artery Qualified Code(s): I63.40 - Cerebral infarction due to embolism of unspecified cerebral artery (6) HTN (hypertension) Hypertension type: primary hypertension Qualified Code(s): I10 - Essential (primary) hypertension
--- NOTE | 2023-12-07 14:25 | Hospitalist Progress Note ---
Date of Service December 07, 2023 Assessment & Plan (1) Near syncope: Plan: Ms. Palacios is an 83-year-old female with past med history significant for type 2 diabetes, hypothyroidism, hyperlipidemia, obstructive sleep apnea, mild persistent asthma, paroxysmal atrial fibrillation, hypertension, history of CAD, GERD, primary open-angle glaucoma, depression, presented to ED on 12/03 with weakness and near syncope. " Patient was recently in the hospital for left ankle sprain and syncope. Syncope thought to be from vasovagal. Echo showed normal EF. With grade 2 diastolic dysfunction and mild mitral regurgitation. Patient was evalauted by cardiology and thought syncope mostly vasovagal. Seen by orthopedics for left ankle pain and was thought most likely sprain. Was given short-term Celebrex and orthotics recommended cam boot. She was discharged to rehab. Patient states she was in rehab for 1 week. She followed with orthopedics clinic and she was given a shot to the left ankle. Last admission chlorthalidone was stopped for hyponatremia and she was placed on nifedipine 60 mg at discharge. She followed with PCP and nifedipine was increased to 90 mg. Today while she was ambulating with walker suddenly felt lightheaded and dizzy and felt like passing out but her significant other held her. She sat in the kitchen chairshe thinks she might have passed out for a moment. EMS was called and brought her here. In the ER labs showed magnesium of 1.0. 2 g of IV magnesium was given and IV fluids were given in ER. Patient still having some ambulatory dysfunction so we called for admission. Patient says still she has some pain in the left ankle. She forgot to bring her boots while coming to the hospital. Denies any headache. No runny nose or sore throat. No cough. Appetite is okay. Eating and drinking okay. No chest pain or shortness of breath. No nausea. No abdominal pain. Normal bowel and bladder movements." Cardioembolic CVA H/O Paroxysmal A FIB --MRI Brain: Scattered small acute infarcts as described above, likely embolic. Moderate microvascular ischemic changes. --Carotid USD: Mild to moderate atherosclerotic plaque without evidence for a hemodynamically significant stenosis. --ECHO: Left ventricle is normal in size. Mild concentric LVH. Basal septum is thickened and angulated consistent with sigmoid septum. Left ventricular wall motion is normal. EF 65 to 70%. Severe mitral annular calcification. High- pressure echogenicity below the posterior mitral valve annulus indents the atrial aspect likely representing calcific shadowing. This was present on prior studies but should be followed. No mitral regurgitation noted. -- Patient was not on anticoagulation for remote paroxysmal A-fib Continue apixaban, statin Normal Lipid panel: LDL 59 Appreciate neurology input Needs follow-up with neurology in 4 to 6 weeks Orthostatic hypotension H/O Hypertension Decrease nifedipine to 30 mg daily Decrease losartan to 50 mg daily Monitor BP Adjust medications as needed Suspected vasculitis/endocarditis Elevated ESR, CRP Follow-up inflammatory markers Blood cultures pending Will consider empiric antibiotics if BioFire suggestive of infectious process Plan for MELANIE tomorrow N.p.o. after midnight Right upper extremity hematoma In setting of anticoagulation Monitor CBC Conservative management for now Left wrist swelling/pain --X ray:No acute fractures within the left wrist. Moderate radiocarpal joint osteoarthritis. Chondrocalcinosis within the TFCC. 2 cannulated screws within the base of the left first metacarpal. -ICE, Voltaren topical Consider ortho evaluation if needed Near syncope Concern for vasovagal Potentially related to embolic shower noted on MRI 12/05 Last admission syncope work was done and thought to be vasovagal Monitor and replace electrolyte disturbances as needed Cardiology following Elevated troponin CAD s/p stent in Down trended, no acute chest pain Continue ASA, Atorvastatin Transition to Metoprolol Succinate 25mg BID Hypomagnesia Hypokalemia Replace electrolytes as needed Monitor Hyponatremia Last admission chlorthalidone was stopped But seems in rehab she was placed on salt tablets Sodium 134 today Monitor Left ankle sprain Recently received shot to ankle by Ortho On boot PT OT Follow-up appointment with Ortho Ambulation dysfunction PT OT Fall precautions Hypothyroidism Normal TSH Continue levothyroxine Obstructive sleep apnea CPAP HS DM II HbA1c 6.0 Hold metformin Continue Insulin sliding scale Monitor BGs Mild persistent asthma Currently stable Continue home inhalers Depression On venlafaxine Primary open-angle glaucoma Continue home eyedrops DVT Px: Apixaban CODE STATUS Full code Admission and Anticipated Discharge Date Admission Date: December 03, 2023 Subjective Patient is seen and examined at bedside Left wrist pain improved but still has erythema Left-sided weakness still persistent Had noted right upper extremity hematoma No dizziness today Discussed with cardiology today Also denies nausea, vomiting, chest pain, dyspnea Review of Systems Review of Systems: All systems reviewed & are unremarkable except as noted in Subjective Physical Exam Physical Exam: Physical Exam: Vitals signs as noted above General Appearance:Moderately built and nourished, no apparent distress, elderly Head: normocephalic, Atraumatic Eyes: normal inspection, EOMI Neck: supple, Trachea midline Respiratory/Chest: Normal breath sounds, CTA, No accessory muscle use Cardiovascular: S1, S2, + murmur Abdomen/GI:Soft, Non tender, Bowel sounds present Extremities/Musculoskeletal:normal inspection, no edema Neurologic/Psych:AAOX3, LUE, LLE 3/5 otherwise no focal deficits Skin: normal color, warm Results & Data Results & Data Vital Signs (Past 12 Hours) Vital Signs Temp Pulse Pulse Resp BP Pulse Ox O2 Del Method 12/07/23 12:28 95 Room Air 12/07/23 11:52 37.0 C 76 16 137/71 90 Room Air 12/07/23 11:05 Room Air 12/07/23 07:47 36.4 C L 82 16 172/80 H 95 Room Air 12/07/23 07:25 77 12/07/23 03:00 36.6 C 75 18 149/71 H 94 Room Air Laboratory Results Short CBC 12/07/23 Range/Units 07:05 WBC 10.83 H (4.8-10.8) K/ul Hgb 11.9 L (12.0-16.0) g/dl Hct 35.8 L (37.0-47.0) % Plt Count 298 (130-400) K/uL BMP 12/07/23 07:05 Sodium 134 L Potassium 4.0 Chloride 102 Carbon Dioxide 24 BUN 15 Creatinine 0.55 L Glucose 145 H Calcium 9.0
[2023-12-07] MEDS: MONTELUKAST SODIUM 10 MG TABLET PO SCH (19:52)
[2023-12-07] MEDS: CYANOCOBALAMIN (B-12) 500 MCG TABLET PO SCH (19:52)
[2023-12-07] MEDS: ASPIRIN 81 MG ECTAB PO SCH (19:52)
[2023-12-07] MEDS: ATORVASTATIN 20 MG TAB PO SCH (19:53)
[2023-12-07] MEDS: AZELASTINE HCL 0.1% NASAL 200 SPRAYS/27,400 MCG BTL SCH (19:53)
[2023-12-07] MEDS: BIMATOPROST 0.01% OP SOLN 2.5 ML BTL OP SCH (19:53)
[2023-12-08] MEDS: DICLOFENAC SOD 1% GEL 100 GM TUBE EXT SCH ×4 (00:08→18:11)
[2023-12-08] MEDS: LEVOTHYROXINE SODIUM 100 MCG TABLET PO SCH (05:41)
[2023-12-08 06:22] LABS: Hematocrit (blood only) 36.6 % (37.0-47.0); Hemoglobin 11.9 g/dl (12.0-16.0); Mean Corpuscular Hgb Conc 32.5 g/dL (32.0-36.0); Mean Corpuscular Volume 89.1 fL (80.0-100.0); Mean Platelet Volume 11.3 fL (9.4-12.4); Platelet Count 308 K/uL (130-400); RDW Coefficient of Variation 14.8 % (11.5-14.5); RDW Standard Deviation 48.6 fL (36.4-46.3); Red Blood Count 4.11 M/uL (4.20-5.40); White Blood Count 9.32 K/ul (4.8-10.8)
[2023-12-08 06:45] LABS: BUN Creatinine Ratio 27.6 (10-20); Calcium 9.2 mg/dl (8.6-10.3); Creatinine Clr Calc Pharmacy 67.9 ml/min; Est GFR (African American) 98.1 ml/min; Est GFR (Non-African American) 84.6 ml/min; Magnesium 1.6 mg/dl (1.7-2.4); Potassium 4.6 mmol/L (3.5-5.1)
[2023-12-08] MEDS ORDERED: BENZOCAINE/TETRACAIN/BUTAM 50 APPLN/5 GM CAN EXT ONE (07:17)
--- NOTE | 2023-12-08 07:30 | History & Physical Bridge Note ---
Date of Service December 08, 2023 History & Physical Bridge Note I have examined the patient, reviewed the History & Physical and in the interval since the performance of the History & Physical I have noted the following changes of clinical significance: no changes noted. Informed consent for MELANIE obtained. Pt. elects to proceed.
--- NOTE | 2023-12-08 07:58 | Anesthesiology Consultation ---
Date of Service December 08, 2023 Assessment & Plan Chart Review Chart Review: Acceptable Risk for Surgery and Patient NOT seen in Pre Admission Testing Consults Requested none ASA ASA4 Proposed Anesthesia Anesthesia Type: MAC Risk / Benefits Reviewed With: PT / POA / Parent / Guardian, Accepts Plan and Informed Consent Obtained History Surgery Operation Date: 12/08/23 07:45 Proposed Procedures p Transesophageal Echo w/Anesthesia - Chace Peacock, Height/Weight Height: 5 ft 2 in Weight: 73.8 kg Allergies Allergy/AdvReac Type Severity Reaction Status Date / Time Penicillins Allergy Mild . Verified 11/15/23 13:55 broccoli Allergy Unknown GAS Unverified 11/15/23 13:55 grapefruit Allergy Unknown BRONCHITIS Unverified 11/15/23 13:55 mold Allergy Unknown asthma Verified 11/15/23 13:55 symptoms orange Allergy Unknown BRONCHITIS Unverified 11/15/23 13:55 paroxetine Allergy Unknown ANAPHYLAXIS Unverified 11/15/23 13:55 pollen extracts Allergy Unknown asthma Verified 11/15/23 13:55 symptoms vasquez AdvReac Unknown gas and Verified 12/03/23 06:17 bloating with consuption of green or kidneys beans crab AdvReac Unknown diarrhea Verified 11/15/23 13:55 peanut AdvReac Unknown gas/bloatin Unverified 11/15/23 13:55 g Medications Home Medications Medication Instructions Recorded Confirmed Last Taken atorvastatin 20 mg tablet 20 mg PO HS 08/22/19 12/03/23 12/01/23 coenzyme Q10 100 mg capsule 100 mg PO QAM 08/22/19 12/03/23 12/02/23 (CoQ-10) cyanocobalamin (vitamin B-12) 1,000 mcg PO QPM 08/22/19 12/03/23 12/01/23 1,000 mcg capsule dexlansoprazole 60 mg 60 mg PO QAM 08/22/19 12/03/23 12/02/23 capsule,biphase delayed release (Dexilant) fluticasone propionate 50 2 spray intranasal QAM 08/22/19 12/03/23 05/08/22 mcg/actuation nasal spray,suspension losartan 100 mg tablet 100 mg PO QAM 08/22/19 12/03/23 12/02/23 metformin 850 mg tablet 850 mg PO BIDM 08/22/19 12/03/2312/02/24 metoprolol tartrate 25 mg tablet 25 mg PO BID 08/22/19 12/03/23 12/02/23 montelukast 10 mg tablet 10 mg PO QPM 08/22/19 12/03/23 12/01/23 multivitamin 1 tab PO DAILY 08/22/19 12/03/23 12/02/23 venlafaxine 37.5 mg 37.5 mg PO DAILY 08/24/19 12/03/23 05/08/22 capsule,extended release 24 hr bimatoprost 0.01 % eye drops 1 drp OPB HS 05/08/22 12/03/23 12/01/23 (Sumeet) albuterol sulfate 90 mcg/actuation 2 puff inhalation Q4H PRN 10/23/23 12/03/23 Unknown aerosol inhaler Shortness Of Breath Or Wheezing ascorbic acid (vitamin C) 500 mg 500 mg PO QAM 10/23/23 12/03/23 12/02/23 tablet aspirin 81 mg tablet,delayed 81 mg PO QPM 10/23/23 12/03/23 12/01/23 release (Ecotrin Low Strength) azelastine 137 mcg (0.1 %) nasal 2 spray intranasal QPM 10/23/23 12/03/23 12/01/23 spray aerosol cholecalciferol (vitamin D3) 25 25 mcg PO QAM 10/23/23 12/03/23 12/02/23 mcg (1,000 unit) tablet fluticasone 250 mcg-salmeterol 50 1 inh inhalation BID 10/23/23 12/03/23 Unknown mcg/dose blistr powdr for inhalation (Wixela Inhub) magnesium oxide 400 mg (241.3 mg 400 mg PO QAM 10/23/23 12/03/23 12/02/23 magnesium) tablet oxybutynin chloride 10 mg 10 mg PO QAM 10/23/23 12/03/23 12/02/23 tablet,extended release 24 hr zinc gluconate 50 mg tablet 50 mg PO QPM 10/23/23 12/03/23 Unknown ketoconazole 2 % topical cream 1 applic topical BID 12/02/23 12/02/23 Unknown levothyroxine 100 mcg tablet 100 mcg PO DAILYBB 12/02/23 12/03/23 12/02/23 nifedipine 90 mg tablet,extended 90 mg PO QAM 12/02/23 12/03/23 12/02/23 release 24 hr sodium chloride 1,000 mg soluble 1,000 mg PO AMHS 12/02/23 12/03/23 12/02/23 tablet potassium chloride 10 mEq 20 meq PO BID 12/03/23 12/03/23 Unknown tablet,extended release(part/cryst) (Klor-Con M) Active Medications Generic Name Dose Route Start Last Admin Trade Name Corona PRN Reason Stop Dose Admin Apixaban 5 mg 12/06/23 09:00 12/07/23 19:53 Apixaban 5 Mg Tablet PO 01/05/24 08:59 5 mg BID ALYSA Administration Ascorbic Acid 500 mg 12/03/23 09:00 12/07/23 08:58 Ascorbic Acid 500 Mg Tab PO 01/02/24 08:59 500 mg QAM ALYSA Administration Aspirin 81 mg 12/03/23 21:00 12/07/23 19:52 Aspirin 81 Mg Ectab PO 01/02/24 20:59 81 mg QPM ALYSA Administration Atorvastatin Calcium 20 mg 12/03/23 21:00 12/07/23 19:53 Atorvastatin 20 Mg Tab PO 01/02/24 20:59 20 mg HS ALYSA Administration Azelastine HCl 2 sprays 12/03/23 21:00 12/07/23 19:53 Azelastine Hcl 0.1% Nasal 200 Sprays/27,400 Mcg Btl NA 01/02/24 20:59 2 sprays QPM ALYSA Administration Bimatoprost 1 drops 12/03/23 21:00 12/07/23 19:53 Bimatoprost 0.01% Op Soln 2.5 Ml Btl OP 01/02/24 20:59 1 drops HS ALYSA Administration Cyanocobalamin 1,000 mcg 12/03/23 21:00 12/07/23 19:52 Cyanocobalamin (B-12) 500 Mcg Tablet PO 01/02/24 20:59 1,000 mcg QPM ALYSA Administration Diclofenac Sodium 2 gm 12/05/23 12:15 12/08/23 05:40 Diclofenac Sod 1% Gel 100 Gm Tube EXT 01/04/24 12:14 2 gm Q6H ALYSA Administration Protocol Fluticasone Propionate 2 sprays 12/03/23 09:00 12/07/23 09:01 Fluticasone Propionate Na Spr 16 Gm Btl NA 01/02/24 08:59 2 sprays QAM ALYSA Administration Fluticasone/Vilanterol 1 puffs 12/03/23 09:00 12/07/23 09:02 Fluticasone/Vilanterol 200/25mcg 14 Puffs/Inhaler INH 01/02/24 08:59 1 puffs DAILY ALYSA Administration Insulin Aspart 0 units 12/03/23 07:30 12/07/23 19:56 Insulin Aspart Per Unit Charge SC 01/02/24 07:29 Not Given ACHS ALYSA Levothyroxine Sodium 100 mcg 12/03/23 06:30 12/08/23 05:41 Levothyroxine Sodium 100 Mcg Tablet PO 01/02/24 06:29 100 mcg DAILYBB ALYSA Administration Losartan Potassium 50 mg 12/07/23 09:00 12/07/23 08:59 Losartan Potassium 50 Mg Tab PO 01/06/24 08:59 50 mg QAM ALYSA Administration Magnesium Oxide 400 mg 12/03/23 09:00 12/07/23 09:01 Magnesium Oxide 400 Mg Tab PO 01/02/24 08:59 400 mg QAM ALYSA Administration Metoprolol Succinate 25 mg 12/04/23 21:00 12/07/23 19:53 Metoprolol Succ 25mg Ext Rel Tab PO 01/03/24 20:59 25 mg BID ALYSA Administration Montelukast Sodium 10 mg 12/03/23 21:00 12/07/23 19:52 Montelukast Sodium 10 Mg Tablet PO 01/02/24 20:59 10 mg QPM ALYSA Administration Multivitamins 1 tab 12/03/23 09:00 12/07/23 09:01 Multivitamin Tab PO 01/02/24 08:59 1 tab DAILY ALYSA Administration Nifedipine 30 mg 12/07/23 09:00 12/07/23 09:00 Nifedipine Extended Rel 30 Mg Tabcr PO 01/06/24 08:59 30 mg QAM ALYSA Administration Oxybutynin Chloride 10 mg 12/03/23 09:00 12/07/23 08:59 Oxybutynin Chloride Xl 5 Mg Tabcr PO 01/02/24 08:59 10 mg QAM ALYSA Administration Pantoprazole Sodium 40 mg 12/03/23 09:00 12/07/23 09:00 Pantoprazole 40 Mg Tab PO 01/02/24 08:59 40 mg QAM ALYSA Administration Potassium Chloride 20 meq 12/03/23 21:00 12/07/23 20:54 Potassium Chloride Crtab 20 Meq Tabcr PO 01/02/24 20:59 20 meq BID ALYSA Administration Sodium Chloride 1 gm 12/03/23 09:00 12/07/23 20:54 Sodium Chloride 1 Gm Tablet PO 01/02/24 08:59 1 gm AMHS ALYSA Administration Venlafaxine HCl 37.5 mg 12/03/23 09:00 12/07/23 08:58 Venlafaxine Hcl Xr 37.5 Mg Capxr PO 01/02/24 08:59 37.5 mg DAILY ALYSA Administration Vitamin D 1,000 units 12/03/23 09:00 12/07/23 08:58 Cholecalciferol 1,000 Units 25 Mcg Tab PO 01/02/24 08:59 1,000 units QAM ALYSA Administration Past Medical History Medical History Right rotator cuff tear Right knee DJD CAD (coronary artery disease) stent in 1999 T2DM (type 2 diabetes mellitus) HTN (hypertension) HLD (hyperlipidemia) PAF (paroxysmal atrial fibrillation) DEMARIO (obstructive sleep apnea) Asthma CKD (chronic kidney disease) stage 3, GFR 30-59 ml/min Primary open angle glaucoma GERD (gastroesophageal reflux disease) Hypothyroidism History of placement of stent in LAD coronary artery Sleep apnea Exercise / Class Metabolic Activity II 4-5 Yardwork/Stairs/Walk up hill Past Family History Family History Father CHF (congestive heart failure) Mother Cancer Past Surgical History Surgical History History of rotator cuff surgery History of cataract extraction History of arthroscopic knee surgery History of tonsillectomy History of appendectomy Stented coronary artery Past Anesthesia History No Hx of Anesthesia Complications and No Family Hx of Anesthesia Complications History of PONV No Hx of PONV and No Hx of Motion Sickness Social History Smoking Status: Never smoker Hx Alcohol Use: No Hx Substance Use: No substance use type: does not use Physical Exam Vital Signs Last Vital Signs Temp 36.6 C 12/08/23 04:20 Pulse 68 12/08/23 07:30 Resp 18 12/08/23 04:20 BP 175/80 H 12/08/23 04:20 Pulse Ox 94 12/08/23 04:20 O2 Del Method Room Air 12/08/23 04:20 ENMT Mouth: no dentition abnormality Thyromental Distance: > or= 3.5 Finger Breadths Mallampati Class: II Neck normal visual inspection Respiratory normal respiratory effort Auscultation: lungs clear to auscultation bilaterally Cardiovascular Rate/Rhythm: regular rate and regular rhythm Neurologic moves all extremities left sideded weakness Psychiatric Orientation: alert Testing Laboratory Results 12/08/23 05:41 12/08/23 05:41 Urine Color Yellow 12/02/23 23:27 Urine Appearance Clear (Clear) 12/02/23 23:27 Urine pH 7.0 (4.5-7.5) 12/02/23 23:27 Ur Specific [place] 1.015 (1.000-1.030) 12/02/23 23:27 Urine Protein Negative (Negative) 12/02/23 23:27 Urine Glucose (UA) Negative (Negative) 12/02/23 23:27 Urine Ketones Negative (Negative) 12/02/23 23:27 Urine Nitrite Negative (Negative) 12/02/23 23:27 Ur Leukocyte Esterase Trace (Negative) H 12/02/23 23:27 Urine RBC 0-4 /hpf (0-4) 12/02/23 23:27 Urine WBC 0-5 /hpf (0-5) 12/02/23 23:27 Ur Epithelial Cells 0-5 /lpf (0-5) 12/02/23 23:27 12/03/23 18:29 Aerobic Blood Culture - Preliminary Blood No growth in Aerobic bottle after 48 hours. Anaerobic Blood Culture - Preliminary No growth in Anaerobic bottle after 48 hours. 12/03/23 18:18 Aerobic Blood Culture - Preliminary Blood No growth in Aerobic bottle after 48 hours. Anaerobic Blood Culture - Preliminary No growth in Anaerobic bottle after 48 hours. 12/07/23 19:55 POC Glucose 130 H
[2023-12-08] MEDS ORDERED: PROPOFOL IV EMULSION 10 MG/ML 20 ML VIAL IV ONE (08:43)
[2023-12-08] MEDS ORDERED: LIDOCAINE 2% 2 ML VIAL/AMP(20MG/ML) INFIL ONE (08:43)
--- NOTE | 2023-12-08 09:04 | Post Operative Brief Note ---
Cardiology Brief Post Op Date of Surgery December 08, 2023 Pre & Post Diagnosis Operation Date: 12/08/23 07:45 Procedure Preprocedure diagnosis: Embolic stroke, assess for cardiac source of systemic embolism Post procedure diagnosis: No cardiac source of systemic embolism identified Transesophageal echocardiogram procedure: After informed consent was obtained and a timeout was performed the patient was sedated with the assistance of the anesthesia service receiving a total of 90 mg of IV propofol and 60 mg of IV lidocaine. The left ventricular systolic function is normal. Mild mitral regurgitation is present. There is mild focal mitral annular calcification. There is no valvular vegetation. The visualized portion of the descending thoracic aorta and aortic arch is without significant atheromatous disease. There is no thrombus within the left atrium or left atrial appendage. The interatrial septum is intact with out evidence of interatrial shunt. [employer] Team Leader DO Assistant Lakeisha Jaquez RCS Estimated Blood Loss 0 Findings Consistent with Post-Op Diagnosis As noted above Anesthesia Type MAC Complications none
--- NOTE | 2023-12-08 09:06 | Cardiology Progress Note ---
Date of Service December 08, 2023 Assessment & Plan (1) Embolic stroke: (2) Near syncope: (3) Hypomagnesemia: (4) Hypokalemia: (5) Elevated troponin: (6) HTN (hypertension): (7) Arthralgia: Plan Assessment: 83 year-old female with near syncopal symptoms during position urbina ge/ambulation, history of recurrent syncope in past, new troponin elevation in the absence of acute EKG changes or chest pain. Patient has history of underlying known coronary heart disease with remote PCI/stent in approximately [address] [facility], anatomical details unknown. Patient with remote history of atrial fibrillation, in 2011 without documented clinical recurrence. He has been off of anticoagulation since 2019 due to having had a severe bleeding problem at that time after a dental extraction. The patient had complaint of particular goal pain and swelling dating back to t he fall 2022. Per inspection today, the ankle is swollen, but nonerythematous. Her left wrist however does have erythema (resolving on 12/08/23). She has weakness and lifting her left arm, but she does not have a separate complaint of focal pain over the left wrist and thumb with noted erythema. Inflammatory markers obtained including elevated ESR of 110 mm/h, elevated C- reactive protein level of 16.7 mg/dL. MELANIE reveals no vegetation and no cardiac source of embolism. Carotid duplex with plaque but not high grade stenosis. Await ROXANNE screen, C3, C4, ANCA screen. Continue Eliquis. Advance activity as tolerated. PT. Anticipate need for inpatient stroke rehab. Admission and Anticipated Discharge Date Admission Date: December 03, 2023 Subjective Pt seen prior to, during and post MELANIE which she tolerated well. She remained in SR for the MELANIE. Physical Exam Constitutional: well developed and well nourished; no acute distress and not ill appearing Neck: normal visual inspection and trachea midline Respiratory: normal respiratory effort, lungs clear to auscultation Cardiovascular: Rate/Rhythm: regular rate and regular rhythm Heart Sounds: normal S1, normal S2 and + murmur (+1/6 systolic murmur) Vessels: no JVD Musculoskeletal: left wrist erythema , less pronounced today, 12/07/23. Skin: no rashes, warm and dry Psychiatric: A+Ox3, euthymic affect Results & Data Vital Signs (Past 12 Hours) Vital Signs Temp Pulse Pulse Resp BP Pulse Ox O2 Del Method 12/08/23 08:36 69 14 167/60 H 98 Room Air 12/08/23 07:30 68 12/08/23 04:20 36.6 C 71 18 175/80 H 94 Room Air 12/07/23 23:00 70 12/07/23 22:00 37.1 C 70 18 124/67 94 Room Air Laboratory Results CBC 12/08/23 Range/Units 05:41 WBC 9.32 (4.8-10.8) K/ul RBC 4.11 L (4.20-5.40) M/uL Hgb 11.9 L (12.0-16.0) g/dl Hct 36.6 L (37.0-47.0) % Plt Count 308 (130-400) K/uL Comprehensive Metabolic Panel 12/08/23 Range/Units 05:41 Sodium 135 L (136-145) mmol/L Potassium 4.6 (3.5-5.1) mmol/L Chloride 103 (98-107) mmol/L Carbon Dioxide 25 (21-32) mmol/L BUN 16 (6-23) mg/dl Creatinine 0.58 L (0.6-1.2) mg/dl Glucose 130 H (70-99(Fasting)) mg/dl Calcium 9.2 (8.6-10.3) mg/dl Intake and Output 12/07/23 12/08/23 12/08/23 22:59 06:59 14:59 Intake Total 150 / 150 Output Total 300 / 600 300 / 600 Balance -150 / -450 -300 / -450 Intake: Oral 150 / 150 Output: Urine Amount (Catheter) 300 / 600 300 / 600 External 300 / 600 300 / 600 Other: Other Intake Source NPO # Unmeasured Voids 1 Weight 73.8 kg 73.8 kg Patient Weight 12/09/23 06:59 Weight 73.8 kg (1) Embolic stroke Precerebral and cerebral artery: unspecified cerebral artery Qualified Code(s): I63.40 - Cerebral infarction due to embolism of unspecified cerebral artery (6) HTN (hypertension) Hypertension type: primary hypertension Qualified Code(s): I10 - Essential (primary) hypertension
--- NOTE | 2023-12-08 09:24 | Anesthesiology Progress Note ---
Date of Service December 08, 2023 Anesthesia Post Procedure Vital Signs Vital Signs: Temp Pulse Pulse Resp BP Pulse Ox O2 Del Method 12/08/23 08:36 69 14 167/60 H 98 Room Air 12/08/23 07:30 68 12/08/23 04:20 36.6 C 71 18 175/80 H 94 Room Air 12/07/23 23:00 70 12/07/23 22:00 37.1 C 70 18 124/67 94 Room Air 12/07/23 19:50 36.7 C 73 17 136/77 95 Room Air 12/07/23 15:41 87 12/07/23 15:23 36.3 C L 80 18 113/61 95 Room Air 12/07/23 12:28 95 Room Air 12/07/23 11:52 37.0 C 76 16 137/71 90 Room Air 12/07/23 11:05 Room Air Transfer of Care Handoff Completed per policy Notes Mental Status: alert / awake / arousable Patient Amnestic to Procedure: Yes Nausea / Vomiting: adequately controlled Pain: adequately controlled Airway Patency, RR, SpO2: stable & adequate BP & HR: stable & adequate Hydration State: stable & adequate Anesthetic Complications: no major complications apparent
[2023-12-08] MEDS: INSULIN ASPART PER UNIT CHARGE SC SCH ×4 (09:52→20:32)
[2023-12-08] MEDS: CHOLECALCIFEROL 1,000 UNITS 25 MCG TAB PO SCH (13:15)
[2023-12-08] MEDS: NIFEdipine EXTENDED REL 30 MG TABCR PO SCH (13:15)
[2023-12-08] MEDS: METOPROLOL SUCC 25MG EXT REL TAB PO SCH ×2 (13:15→20:14)
[2023-12-08] MEDS: LOSARTAN POTASSIUM 50 MG TAB PO SCH (13:15)
[2023-12-08] MEDS: SODIUM CHLORIDE 1 GM TABLET PO SCH ×2 (13:16→20:14)
[2023-12-08] MEDS: VENLAFAXINE HCL XR 37.5 MG CAPXR PO SCH (13:16)
[2023-12-08] MEDS: MULTIVITAMIN TAB PO SCH (13:16)
[2023-12-08] MEDS: PANTOprazole 40 MG TAB PO SCH (13:16)
[2023-12-08] MEDS: ASCORBIC ACID 500 MG TAB PO SCH (13:17)
[2023-12-08] MEDS: OXYBUTYNIN CHLORIDE XL 5 MG TABCR PO SCH (13:17)
[2023-12-08] MEDS: MAGNESIUM OXIDE 400 MG TAB PO SCH (13:17)
[2023-12-08] MEDS: FLUTICASONE/VILANTEROL 200/25MCG 14 PUFFS/INHALER INH SCH (13:18)
[2023-12-08] MEDS: APIXABAN 5 MG TABLET PO SCH ×2 (13:18→20:15)
[2023-12-08] MEDS: FLUTICASONE PROPIONATE NA SPR 16 GM BTL SCH (13:18)
[2023-12-08] MEDS: POTASSIUM CHLORIDE CRTAB 20 MEQ TABCR PO SCH ×2 (13:24→20:15)
--- NOTE | 2023-12-08 16:52 | Hospitalist Progress Note ---
Date of Service December 08, 2023 Assessment & Plan (1) Near syncope: Plan: Ms. Palacios is an 83-year-old female with past med history significant for type 2 diabetes, hypothyroidism, hyperlipidemia, obstructive sleep apnea, mild persistent asthma, paroxysmal atrial fibrillation, hypertension, history of CAD, GERD, primary open-angle glaucoma, depression, presented to ED on 12/03 with weakness and near syncope. " Patient was recently in the hospital for left ankle sprain and syncope. Syncope thought to be from vasovagal. Echo showed normal EF. With grade 2 diastolic dysfunction and mild mitral regurgitation. Patient was evalauted by cardiology and thought syncope mostly vasovagal. Seen by orthopedics for left ankle pain and was thought most likely sprain. Was given short-term Celebrex and orthotics recommended cam boot. She was discharged to rehab. Patient states she was in rehab for 1 week. She followed with orthopedics clinic and she was given a shot to the left ankle. Last admission chlorthalidone was stopped for hyponatremia and she was placed on nifedipine 60 mg at discharge. She followed with PCP and nifedipine was increased to 90 mg. Today while she was ambulating with walker suddenly felt lightheaded and dizzy and felt like passing out but her significant other held her. She sat in the kitchen chairshe thinks she might have passed out for a moment. EMS was called and brought her here. In the ER labs showed magnesium of 1.0. 2 g of IV magnesium was given and IV fluids were given in ER. Patient still having some ambulatory dysfunction so we called for admission. Patient says still she has some pain in the left ankle. She forgot to bring her boots while coming to the hospital. Denies any headache. No runny nose or sore throat. No cough. Appetite is okay. Eating and drinking okay. No chest pain or shortness of breath. No nausea. No abdominal pain. Normal bowel and bladder movements." Cardioembolic CVA H/O Paroxysmal A FIB --MRI Brain: Scattered small acute infarcts as described above, likely embolic. Moderate microvascular ischemic changes. --Carotid USD: Mild to moderate atherosclerotic plaque without evidence for a hemodynamically significant stenosis. --ECHO: Left ventricle is normal in size. Mild concentric LVH. Basal septum is thickened and angulated consistent with sigmoid septum. Left ventricular wall motion is normal. EF 65 to 70%. Severe mitral annular calcification. High- pressure echogenicity below the posterior mitral valve annulus indents the atrial aspect likely representing calcific shadowing. This was present on prior studies but should be followed. No mitral regurgitation noted. -- Patient was not on anticoagulation for remote paroxysmal A-fib --S/P MELANIE: Left ventricle systolic function is normal. Mild mitral regurgitatio n is present. Mild focal mitral annular calcification. No valvular vegetation. Visualized portion of the descending thoracic aorta and aortic arch is without significant atheromatous disease. No thrombus within the left atrium or left atrial appendage. Interatrial septum is intact with out evidence of interatrial shunt. Continue apixaban, statin Normal Lipid panel: LDL 59 Appreciate neurology input Needs follow-up with neurology in 4 to 6 weeks Plan to discharge to rehab facility as able Orthostatic hypotension H/O Hypertension Decrease nifedipine to 30 mg daily Decrease losartan to 50 mg daily Monitor BP Adjust medications as needed Suspected vasculitis/endocarditis Elevated ESR, CRP MELANIE showed no signs of endocarditis/vegetation ROXANNE, C3, C4, ANCA pending Blood cultures negative to date Right upper extremity hematoma In setting of anticoagulation Monitor CBC Conservative management for now Hb stable Left wrist swelling/pain --X ray:No acute fractures within the left wrist. Moderate radiocarpal joint osteoarthritis. Chondrocalcinosis within the TFCC. 2 cannulated screws within the base of the left first metacarpal. -ICE, Voltaren topical Consider ortho evaluation if needed Trial of low-dose prednisone Near syncope Concern for vasovagal Potentially related to embolic shower noted on MRI 12/05 Last admission syncope work was done and thought to be vasovagal Monitor and replace electrolyte disturbances as needed Cardiology following Elevated troponin CAD s/p stent in Down trended, no acute chest pain Continue ASA, Atorvastatin Transition to Metoprolol Succinate 25mg BID Hypomagnesia Hypokalemia Replace electrolytes as needed Monitor Hyponatremia Last admission chlorthalidone was stopped But seems in rehab she was placed on salt tablets Sodium 135 today Monitor Left ankle sprain Recently received shot to ankle by Ortho On boot PT OT Follow-up appointment with Ortho Ambulation dysfunction PT OT Fall precautions Hypothyroidism Normal TSH Continue levothyroxine Obstructive sleep apnea CPAP HS DM II HbA1c 6.0 Hold metformin Continue Insulin sliding scale Monitor BGs Mild persistent asthma Currently stable Continue home inhalers Depression On venlafaxine Primary open-angle glaucoma Continue home eyedrops DVT Px: Apixaban CODE STATUS Full code Disposition Rehab as able Admission and Anticipated Discharge Date Admission Date: December 03, 2023 Subjective Patient is seen and examined at bedside Left wrist redness improving Had MELANIE earlier today Discussed with patient's son at bedside and also with cardiology Left-sided weakness is same as yesterday Right upper extremity hematoma improved Denies nausea, vomiting, chest pain, dyspnea Review of Systems Review of Systems: All systems reviewed & are unremarkable except as noted in Subjective Physical Exam Physical Exam: Physical Exam: Vitals signs as noted above General Appearance:Moderately built and nourished, no apparent distress, elderly Head: normocephalic, Atraumatic Eyes: normal inspection, EOMI Neck: supple, Trachea midline Respiratory/Chest: Normal breath sounds, CTA, No accessory muscle use Cardiovascular: S1, S2, + murmur Abdomen/GI:Soft, Non tender, Bowel sounds present Extremities/Musculoskeletal:normal inspection, no edema Neurologic/Psych:AAOX3, LUE, LLE 3/5 otherwise no focal deficits Skin: normal color, warm Results & Data Results & Data Vital Signs (Past 12 Hours) Vital Signs Temp Pulse Pulse Resp BP Pulse Ox O2 Del Method 12/08/23 15:00 68 12/08/23 13:31 Room Air 12/08/23 11:00 36.6 C 75 16 167/83 H 95 Room Air 12/08/23 10:30 37 C 72 14 173/79 H 93 Room Air 12/08/23 10:00 36.4 C L 66 16 164/77 H 94 Room Air 12/08/23 09:40 36.5 C 71 16 156/102 H 94 Room Air 12/08/23 08:36 69 14 167/60 H 98 Room Air 12/08/23 07:30 68 Laboratory Results Short CBC 12/08/23 Range/Units 05:41 WBC 9.32 (4.8-10.8) K/ul Hgb 11.9 L (12.0-16.0) g/dl Hct 36.6 L (37.0-47.0) % Plt Count 308 (130-400) K/uL BMP 12/08/23 05:41 Sodium 135 L Potassium 4.6 Chloride 103 Carbon Dioxide 25 BUN 16 Creatinine 0.58 L Glucose 130 H Calcium 9.2
[2023-12-08] MEDS: predniSONE 2.5 MG TAB PO SCH (16:54)
[2023-12-08] MEDS: ASPIRIN 81 MG ECTAB PO SCH (20:13)
[2023-12-08] MEDS: CYANOCOBALAMIN (B-12) 500 MCG TABLET PO SCH (20:13)
[2023-12-08] MEDS: ATORVASTATIN 20 MG TAB PO SCH (20:14)
[2023-12-08] MEDS: AZELASTINE HCL 0.1% NASAL 200 SPRAYS/27,400 MCG BTL SCH (20:15)
[2023-12-08] MEDS: MONTELUKAST SODIUM 10 MG TABLET PO SCH (20:15)
[2023-12-08] MEDS: BIMATOPROST 0.01% OP SOLN 2.5 ML BTL OP SCH (20:16)
[2023-12-09] MEDS: DICLOFENAC SOD 1% GEL 100 GM TUBE EXT SCH ×3 (01:15→12:49)
[2023-12-09] MEDS: LEVOTHYROXINE SODIUM 100 MCG TABLET PO SCH (05:46)
[2023-12-09 07:09] LABS: Hematocrit (blood only) 35.1 % (37.0-47.0); Hemoglobin 11.3 g/dl (12.0-16.0)
[2023-12-09] MEDS: APIXABAN 5 MG TABLET PO SCH (08:11)
[2023-12-09] MEDS: PANTOprazole 40 MG TAB PO SCH (08:11)
[2023-12-09] MEDS: MULTIVITAMIN TAB PO SCH (08:11)
[2023-12-09] MEDS: MAGNESIUM OXIDE 400 MG TAB PO SCH (08:11)
[2023-12-09] MEDS: LOSARTAN POTASSIUM 50 MG TAB PO SCH (08:11)
[2023-12-09] MEDS: SODIUM CHLORIDE 1 GM TABLET PO SCH (08:11)
[2023-12-09] MEDS: METOPROLOL SUCC 25MG EXT REL TAB PO SCH (08:12)
[2023-12-09] MEDS: NIFEdipine EXTENDED REL 30 MG TABCR PO SCH (08:12)
[2023-12-09] MEDS: OXYBUTYNIN CHLORIDE XL 5 MG TABCR PO SCH (08:12)
[2023-12-09] MEDS: VENLAFAXINE HCL XR 37.5 MG CAPXR PO SCH (08:12)
[2023-12-09] MEDS: CHOLECALCIFEROL 1,000 UNITS 25 MCG TAB PO SCH (08:12)
[2023-12-09] MEDS: ASCORBIC ACID 500 MG TAB PO SCH (08:12)
[2023-12-09] MEDS: predniSONE 2.5 MG TAB PO SCH (08:13)
[2023-12-09] MEDS: POTASSIUM CHLORIDE CRTAB 20 MEQ TABCR PO SCH (08:14)
[2023-12-09] MEDS: FLUTICASONE PROPIONATE NA SPR 16 GM BTL SCH (08:16)
[2023-12-09] MEDS: FLUTICASONE/VILANTEROL 200/25MCG 14 PUFFS/INHALER INH SCH (08:16)
[2023-12-09] MEDS: INSULIN ASPART PER UNIT CHARGE SC SCH ×3 (08:52→16:37)
--- NOTE | 2023-12-09 13:20 | Hospitalist Progress Note ---
Date of Service December 09, 2023 Assessment & Plan (1) Near syncope: Plan: Ms. Palacios is an 83-year-old female with past med history significant for type 2 diabetes, hypothyroidism, hyperlipidemia, obstructive sleep apnea, mild persistent asthma, paroxysmal atrial fibrillation, hypertension, history of CAD, GERD, primary open-angle glaucoma, depression, presented to ED on 12/03 with weakness and near syncope. " Patient was recently in the hospital for left ankle sprain and syncope. Syncope thought to be from vasovagal. Echo showed normal EF. With grade 2 diastolic dysfunction and mild mitral regurgitation. Patient was evalauted by cardiology and thought syncope mostly vasovagal. Seen by orthopedics for left ankle pain and was thought most likely sprain. Was given short-term Celebrex and orthotics recommended cam boot. She was discharged to rehab. Patient states she was in rehab for 1 week. She followed with orthopedics clinic and she was given a shot to the left ankle. Last admission chlorthalidone was stopped for hyponatremia and she was placed on nifedipine 60 mg at discharge. She followed with PCP and nifedipine was increased to 90 mg. Today while she was ambulating with walker suddenly felt lightheaded and dizzy and felt like passing out but her significant other held her. She sat in the kitchen chairshe thinks she might have passed out for a moment. EMS was called and brought her here. In the ER labs showed magnesium of 1.0. 2 g of IV magnesium was given and IV fluids were given in ER. Patient still having some ambulatory dysfunction so we called for admission. Patient says still she has some pain in the left ankle. She forgot to bring her boots while coming to the hospital. Denies any headache. No runny nose or sore throat. No cough. Appetite is okay. Eating and drinking okay. No chest pain or shortness of breath. No nausea. No abdominal pain. Normal bowel and bladder movements." Cardioembolic CVA H/O Paroxysmal A FIB --MRI Brain: Scattered small acute infarcts as described above, likely embolic. Moderate microvascular ischemic changes. --Carotid USD: Mild to moderate atherosclerotic plaque without evidence for a hemodynamically significant stenosis. --ECHO: Left ventricle is normal in size. Mild concentric LVH. Basal septum is thickened and angulated consistent with sigmoid septum. Left ventricular wall motion is normal. EF 65 to 70%. Severe mitral annular calcification. High- pressure echogenicity below the posterior mitral valve annulus indents the atrial aspect likely representing calcific shadowing. This was present on prior studies but should be followed. No mitral regurgitation noted. -- Patient was not on anticoagulation for remote paroxysmal A-fib --S/P MELANIE: Left ventricle systolic function is normal. Mild mitral regurgitatio n is present. Mild focal mitral annular calcification. No valvular vegetation. Visualized portion of the descending thoracic aorta and aortic arch is without significant atheromatous disease. No thrombus within the left atrium or left atrial appendage. Interatrial septum is intact with out evidence of interatrial shunt. Continue apixaban, statin Normal Lipid panel: LDL 59 Given elderly age, LDL 59, source of CVA likely embolic will continue current dose of statin Appreciate neurology input Needs follow-up with neurology in 4 to 6 weeks Plan to discharge to rehab facility Orthostatic hypotension H/O Hypertension BP variable Continue nifedipine, Losartan Monitor BP Suspected vasculitis/endocarditis Elevated ESR, CRP MELANIE showed no signs of endocarditis/vegetation ROXANNE, C3, C4, ANCA pending Blood cultures negative to date Right upper extremity hematoma In setting of anticoagulation Monitor CBC Conservative management for now Hb stable Left wrist swelling/pain --X ray:No acute fractures within the left wrist. Moderate radiocarpal joint osteoarthritis. Chondrocalcinosis within the TFCC. 2 cannulated screws within the base of the left first metacarpal. -ICE, Voltaren topical Consider ortho evaluation if needed Trial of low-dose prednisone Near syncope Concern for vasovagal Potentially related to embolic shower noted on MRI 12/05 Last admission syncope work was done and thought to be vasovagal Monitor and replace electrolyte disturbances as needed Cardiology following Elevated troponin CAD s/p stent in Down trended, no acute chest pain Continue ASA, Atorvastatin Transition to Metoprolol Succinate 25mg BID Hypomagnesia Hypokalemia Replace electrolytes as needed Monitor Hyponatremia Last admission chlorthalidone was stopped But seems in rehab she was placed on salt tablets Sodium 135 today Monitor Left ankle sprain Recently received shot to ankle by Ortho On boot PT OT Follow-up appointment with Ortho Ambulation dysfunction PT OT Fall precautions Hypothyroidism Normal TSH Continue levothyroxine Obstructive sleep apnea CPAP HS DM II HbA1c 6.0 Hold metformin Continue Insulin sliding scale Monitor BGs Mild persistent asthma Currently stable Continue home inhalers Depression continue venlafaxine Primary open-angle glaucoma Continue home eyedrops DVT Px: Apixaban CODE STATUS Full code Disposition Rehab Admission and Anticipated Discharge Date Admission Date: December 03, 2023 Subjective Patient is seen and examined at bedside Had transient dizziness this morning Left wrist redness much improved No new complaints otherwise Updated patient's Son over the phone Still has some Left-sided weakness Denies nausea, vomiting, chest pain, dyspnea, abd Pain Plan to discharge to rehab facility today Review of Systems Review of Systems: All systems reviewed & are unremarkable except as noted in Subjective Physical Exam Physical Exam: Physical Exam: Vitals signs as noted above General Appearance:Moderately built and nourished, no apparent distress, elderly Head: normocephalic, Atraumatic Eyes: normal inspection, EOMI Neck: supple, Trachea midline Respiratory/Chest: Normal breath sounds, CTA, No accessory muscle use Cardiovascular: S1, S2, + murmur Abdomen/GI:Soft, Non tender, Bowel sounds present Extremities/Musculoskeletal:normal inspection, no edema Neurologic/Psych:AAOX3, LUE, LLE 3-4/5 otherwise no focal deficits Skin: normal color, warm Results & Data Results & Data Vital Signs (Past 12 Hours) Vital Signs Temp Pulse Pulse Resp BP Pulse Ox O2 Del Method 12/09/23 11:39 36.5 C 71 18 129/73 97 Room Air 12/09/23 09:18 Room Air 12/09/23 07:37 36.6 C 70 18 197/78 H 96 Room Air 12/09/23 06:00 68 12/09/23 04:00 36.4 C L 71 18 163/75 H 94 Room Air Laboratory Results Short CBC 12/09/23 Range/Units 06:47 Hgb 11.3 L (12.0-16.0) g/dl Hct 35.1 L (37.0-47.0) %
--- NOTE | 2023-12-09 13:40 | Cardiology Progress Note ---
Date of Service December 09, 2023 Assessment & Plan (1) Embolic stroke: (2) Near syncope: (3) Hypomagnesemia: (4) Hypokalemia: (5) Elevated troponin: (6) HTN (hypertension): (7) Arthralgia: Plan Assessment: 83 year-old female with near syncopal symptoms during position urbina ge/ambulation, history of recurrent syncope in past, new troponin elevation in the absence of acute EKG changes or chest pain. Patient has history of underlying known coronary heart disease with remote PCI/stent in approximately [address] [facility], anatomical details unknown. Patient with remote history of atrial fibrillation, in 2011 without documented clinical recurrence. He has been off of anticoagulation since 2019 due to having had a severe bleeding problem at that time after a dental extraction. The patient had complaint of particular goal pain and swelling dating back to t he fall 2022. Per inspection today, the ankle is swollen, but nonerythematous. Her left wrist however does have erythema (resolving on 12/08 and 12/09). Inflammatory markers obtained including elevated ESR of 110 mm/h, elevated C- reactive protein level of 16.7 mg/dL. MELANIE reveals no vegetation and no cardiac source of embolism. Carotid duplex with plaque but not high grade stenosis. Await ROXANNE screen, C3, C4, ANCA screen. Continue Eliquis. Advance activity as tolerated. PT. Anticipate need for inpatient stroke rehab. Stable from cardiology perspective for rehab. Given h/o CAD continue ASA. Would continue [employer] dose of nifedipine . Given high BP readings but lightheadedness, would consider discharge on losartan 50 mg two times per day instead of her prior dose of 100 mg once daily. Tentative plan is discharge to [facility]. Spoke to pt's son, Titus, by phone. Admission and Anticipated Discharge Date Admission Date: December 03, 2023 Subjective Patient seen in cardiology follow-up. Feeling well. Notes left hand/wrist less red, less painful, able to move her hand. Telemetry reveals sinus rhythm in the 60s to 70s. Physical Exam Constitutional: well developed and well nourished; no acute distress and not ill appearing Neck: normal visual inspection and trachea midline Respiratory: normal respiratory effort, lungs clear to auscultation Cardiovascular: Rate/Rhythm: regular rate and regular rhythm Heart Sounds: normal S1, normal S2 and + murmur (+1/6 systolic murmur) Vessels: no JVD Skin: no rashes, warm and dry Psychiatric: A+Ox3, euthymic affect Results & Data Vital Signs (Past 12 Hours) Vital Signs Temp Pulse Pulse Resp BP Pulse Ox O2 Del Method 12/09/23 11:39 36.5 C 71 18 129/73 97 Room Air 12/09/23 09:18 Room Air 12/09/23 07:37 36.6 C 70 18 197/78 H 96 Room Air 12/09/23 06:00 68 12/09/23 04:00 36.4 C L 71 18 163/75 H 94 Room Air (1) Embolic stroke Precerebral and cerebral artery: unspecified cerebral artery Qualified Code(s): I63.40 - Cerebral infarction due to embolism of unspecified cerebral artery (6) HTN (hypertension) Hypertension type: primary hypertension Qualified Code(s): I10 - Essential (primary) hypertension
--- NOTE | 2023-12-09 14:10 | Discharge Summary ---
Date of Service December 09, 2023 Admission HPI Per Admitting Provider 83-year-old female with past med history significant for type 2 diabetes, hypothyroidism, hyperlipidemia, obstructive sleep apnea, mild persistent asthma, paroxysmal atrial fibrillation, hypertension, history of CAD, GERD, primary open-angle glaucoma, depression, presents with weakness and near syncope. Patient was recently in the hospital for left ankle sprain and syncope. Syncope thought to be from vasovagal. Echo showed normal EF. With grade 2 diastolic dysfunction and mild mitral regurgitation. Was seen by cardiology and thought syncope mostly vasovagal. Seen by orthopedics for left ankle pain and was thought most likely sprain. Was given short-term Celebrex and orthotics recommended cam boot. She was discharged to rehab. Patient states she was in rehab for 1 week. She followed with orthopedics clinic and she was given a shot to the left ankle. Last admission chlorthalidone was stopped for hyponatremia and she was placed on nifedipine 60 mg at discharge. She followed with PCP and nifedipine was increased to 90 mg. Today while she was ambulating with walker suddenly felt lightheaded and dizzy and felt like passing out but her significant other held her. She sat in the kitchen chairshe thinks she might have passed out for a moment. EMS was called and brought her here. In the ER labs showed magnesium of 1.0. 2 g of IV magnesium was given and IV fluids were given in ER. Patient still having some ambulatory dysfunction so we called for admission. Patient says still she has some pain in the left ankle. She forgot to bring her boots while coming to the hospital. Denies any headache. No runny nose or sore throat. No cough. Appetite is okay. Eating and drinking okay. No chest pain or shortness of breath. No nausea. No abdominal pain. Normal bowel and bladder movements. Past medical history. As mentioned above. Past surgical history. Bilateral breast cyst removed. Colonoscopy. Coronary artery dilatation. EGD. Knee arthroscopy. Laparoscopic appendectomy. Tonsillectomy. Cataract surgery. Repair of left rotator cuff. Social history. No smoking. Alcohol rarely. No drug use. Family history. Mother had allergies. Asthma. Breast cancer. Lung cancer. Father has allergies. CHF. Paternal grandmother had glaucoma. Admission Exam Per Admitting Provider General- Not in distress Head- atraumatic Eyes- PERRL. ENT- oropharynx clear Neck- supple, no JVD. Lungs- clear to auscultation, no wheezing or crackles. Heart- regular rhythm; no murmur, no gallop. Abdomen- normal bowel sounds, soft, nontender, no distension. Extremities- no pretibial edema, no erythema seen Neuro- alert, oriented x 3; PERRL,no facial palsy; no dysarthria; moves extremities. Skin- warm & dry Principal Diagnosis Cardioembolic CVA Near syncope Hyponatremia Ambulation dysfunction Hypertension Discharge Data Allergies Allergy/AdvReac Type Severity Reaction Status Date / Time Penicillins Allergy Mild . Verified 11/15/23 13:55 broccoli Allergy Unknown GAS Unverified 11/15/23 13:55 grapefruit Allergy Unknown BRONCHITIS Unverified 11/15/23 13:55 mold Allergy Unknown asthma Verified 11/15/23 13:55 symptoms orange Allergy Unknown BRONCHITIS Unverified 11/15/23 13:55 paroxetine Allergy Unknown ANAPHYLAXIS Unverified 11/15/23 13:55 pollen extracts Allergy Unknown asthma Verified 11/15/23 13:55 symptoms vasquez AdvReac Unknown gas and Verified 12/03/23 06:17 bloating with consuption of green or kidneys beans crab AdvReac Unknown diarrhea Verified 11/15/23 13:55 peanut AdvReac Unknown gas/bloatin Unverified 11/15/23 13:55 g Consultations 12/03/23 04:30 ED Decision to Admit Stat 12/03/23 12:07 Consult Cardiology Routine 12/05/23 14:23 Consult Neurology Routine 12/07/23 11:08 Consult Anesthesiology Routine Procedures Performed Operation Date: 12/08/23 07:45 Actual Procedures p Echo Transesophageal - Chace Peacock DO s Echo Doppler Complete - Chace Peacock DO s Echo Color Flow - Chace Peacock DO Laboratory Results WBC 9.32 K/ul (4.8-10.8) 12/08/23 05:41 RBC 4.11 M/uL (4.20-5.40) L 12/08/23 05:41 Hgb 11.3 g/dl (12.0-16.0) L 12/09/23 06:47 Hct 35.1 % (37.0-47.0) L 12/09/23 06:47 MCV 89.1 fL (80.0-100.0) 12/08/23 05:41 MCH 29.0 pg (25.0-34.0) 12/08/23 05:41 MCHC 32.5 g/dL (32.0-36.0) 12/08/23 05:41 RDW Std Deviation 48.6 fL (36.4-46.3) H 12/08/23 05:41 RDW Coeff of Stoney 14.8 % (11.5-14.5) H 12/08/23 05:41 Plt Count 308 K/uL (130-400) 12/08/23 05:41 MPV 11.3 fL (9.4-12.4) 12/08/23 05:41 Immature Gran % (Auto) 0.4 % 12/03/23 07:33 Neut % (Auto) 69.2 % 12/03/23 07:33 Lymph % (Auto) 18.2 % 12/03/23 07:33 Greene % (Auto) 10.4 % 12/03/23 07:33 Eos % (Auto) 1.4 % 12/03/23 07:33 Baso % (Auto) 0.4 % 12/03/23 07:33 Neut # (Auto) 7.36 K/uL (1.40-6.50) H 12/03/23 07:33 Lymph # (Auto) 1.93 K/uL (1.20-3.40) 12/03/23 07:33 Greene # (Auto) 1.10 K/uL (0.11-0.59) H 12/03/23 07:33 Eos # (Auto) 0.15 K/uL (0.00-0.50) 12/03/23 07:33 Baso # (Auto) 0.04 K/uL (0.00-0.20) 12/03/23 07:33 Immature Gran # (Auto) 0.04 K/uL (0.01-0.20) 12/03/23 07:33 ESR 110 mm/hr (0-30) H 12/07/23 07:05 Sodium 135 mmol/L (136-145) L 12/08/23 05:41 Potassium 4.6 mmol/L (3.5-5.1) 12/08/23 05:41 Chloride 103 mmol/L (98-107) 12/08/23 05:41 Carbon Dioxide 25 mmol/L (21-32) 12/08/23 05:41 Anion Gap 7 (3-11) 12/08/23 05:41 BUN 16 mg/dl (6-23) 12/08/23 05:41 Creatinine 0.58 mg/dl (0.6-1.2) L 12/08/23 05:41 Est Cr Clr Drug Dosing 67.9 ml/min 12/08/23 05:41 Est GFR ( Amer) 98.1 ml/min 12/08/23 05:41 Est GFR (Non-Af Amer) 84.6 ml/min 12/08/23 05:41 BUN/Creatinine Ratio 27.6 (10-20) H 12/08/23 05:41 Glucose 130 mg/dl (70-99(Fasting)) H 12/08/23 05:41 POC Glucose 145 mg/dl (70-99) H 12/09/23 12:09 Calcium 9.2 mg/dl (8.6-10.3) 12/08/23 05:41 Phosphorus 2.8 mg/dl (2.5-4.9) 12/06/23 06:19 Magnesium 1.6 mg/dl (1.7-2.4) L 12/08/23 05:41 Total Bilirubin 0.3 mg/dl (0.2-1.0) 12/02/23 23:11 AST 10 U/L (13-39) L 12/02/23 23:11 ALT 7 U/L (7-52) 12/02/23 23:11 Alkaline Phosphatase 64 U/L (34-104) 12/02/23 23:11 Troponin I High Sens 190.1 pg/ml (0-14) H* D 12/04/23 00:54 C-Reactive Protein 16.17 mg/dl (0-0.5) H 12/07/23 07:05 B-Natriuretic Peptide 269 pg/ml (0-100) H 12/02/23 23:11 Total Protein 7.3 gm/dl (6.0-8.3) 12/02/23 23:11 Albumin 4.0 gm/dl (3.4-5.0) 12/02/23 23:11 Globulin 3.3 gm/dl (2.5-4.0) 12/02/23 23:11 Albumin/Globulin Ratio 1.2 (0.9-2) 12/02/23 23:11 Triglycerides 94 mg/dl (0-150) 12/07/23 07:05 Cholesterol 119 mg/dl (0-200) 12/07/23 07:05 LDL Cholesterol, Calc 59 mg/dl 12/07/23 07:05 VLDL Cholesterol, Calc 19 mg/dl (0-30) 12/07/23 07:05 HDL Cholesterol 41 mg/dl 12/07/23 07:05 Cholesterol/HDL Ratio 2.9 (0-5) 12/07/23 07:05 Lipase 11 U/L (11-82) 12/02/23 23:11 TSH 1.064 uIu/ml (0.300-4.500) 12/02/23 23:11 Urine Color Yellow 12/02/23 23:27 Urine Appearance Clear (Clear) 12/02/23 23: Urine pH 7.0 (4.5-7.5) 12/02/23 23: Ur Specific [place] 1.015 (1.000-1.030) 12/02/23 23:27 Urine Protein Negative (Negative) 12/02/23 23: Urine Glucose (UA) Negative (Negative) 12/02/23 23: Urine Ketones Negative (Negative) 12/02/23 23:27 Urine Blood Trace-intact (Negative) H 12/02/23 23:27 Urine Nitrite Negative (Negative) 12/02/23 23: Urine Bilirubin Negative (Negative) 12/02/23 23: Urine Urobilinogen Negative (Negative) 12/02/23 23:27 Ur Leukocyte Esterase Trace (Negative) H 12/02/23 23:27 Urine RBC 0-4 /hpf (0-4) 12/02/23 23:27 Urine WBC 0-5 /hpf (0-5) 12/02/23 23:27 Ur Epithelial Cells 0-5 /lpf (0-5) 12/02/23 23:27 Urine Bacteria Negative (Negative) 12/02/23 23:27 Urine Mucus Present (None Prsent) A 12/02/23 23:27 Adenovirus (PCR) Not Detected (NotDetected) 12/03/23 00:36 B. pertussis DNA (PCR) Not Detected (NotDetected) 12/03/23 00:36 B.parapertussis DNA PCR Not Detected (NotDetected) 12/03/23 00:36 C. pneumoniae DNA (PCR) Not Detected (NotDetected) 12/03/23 00:36 Coronavirus OC43 (PCR) Not Detected (NotDetected) 12/03/23 00:36 Coronavirus HKU1 (PCR) Not Detected (NotDetected) 12/03/23 00:36 Coronavirus 229E (PCR) Not Detected (NotDetected) 12/03/23 00:36 SARS-CoV-2 (PCR) Not Detected (NotDetected) 12/03/23 00:36 Coronavirus NL63 (PCR) Not Detected (NotDetected) 12/03/23 00:36 Human Metapneumovir PCR Not Detected (NotDetected) 12/03/23 00:36 Influenza Type A (PCR) Not Detected (NotDetected) 12/03/23 00:36 Influenza Type B (PCR) Not Detected (NotDetected) 12/03/23 00:36 M. pneumoniae (PCR) Not Detected (NotDetected) 12/03/23 00:36 Parainfluenza 1 (PCR) Not Detected (NotDetected) 12/03/23 00:36 Parainfluenza 2 (PCR) Not Detected (NotDetected) 12/03/23 00:36 Parainfluenza 3 (PCR) Not Detected (NotDetected) 12/03/23 00:36 Parainfluenza 4 (PCR) Not Detected (NotDetected) 12/03/23 00:36 RSV (PCR) Not Detected (NotDetected) 12/03/23 00:36 Entero/Rhino (PCR) Not Detected (NotDetected) 12/03/23 00:36 Impressions Chest X-Ray 12/02/23 23:09 XR chest 1V portable HISTORY: Shortness of breath. COMPARISON: Chest 10/23/2023. FINDINGS: No pneumothorax. No pleural effusions. The heart remains mildly enlarged. Mitral annulus calcifications again noted. Small left basilar linear density favors subsegmental atelectasis or scarring. No new focal lung consolidations to suggest pneumonia. Stable central pulmonary vascular congestion without overt edema. No acute fractures. Degenerative changes within the shoulders. IMPRESSION: 1. No significant change compared to the prior study. 2. Cardiomegaly and central pulmonary vascular congestion persists. ACT 112: Negative or not required by law. Electronically signed by: Charlie Atkinson M.D. 12/03/2023 7:[address] 12/02/23 23:09 Exam(s): CT HEAD Without Contrast EXAM: CT Head Without Intravenous Contrast CLINICAL HISTORY: Reason for exam: dizzy drake. TECHNIQUE: Axial computed tomography images of the head/brain without intravenous contrast. CTDI is 36.18 mGy and DLP is 625.8 mGy-cm. Automated exposure control was utilized for the study. A dose lowering technique was utilized adhering to the principles of ALARA. COMPARISON: No relevant prior studies available. FINDINGS: No acute intracranial hemorrhage. No midline shift or mass effect. The territorial hernandez-white matter differentiation is maintained throughout. Age-related cerebral volume loss. Periventricular and subcortical white matter hypoattenuation, consistent with chronic microangiopathy. The visualized orbits appear grossly unremarkable. The calvarium is intact. The visualized paranasal sinuses and mastoid air cells are grossly clear. IMPRESSION: No acute intracranial hemorrhage, midline shift, or mass effect. Electronically signed by: Zack Crump MD 12/03/23 00:09 AM Wrist X-Ray 12/05/23 12:04 XR wrist LT min 3V routine CLINICAL HISTORY: Left wrist pain and swelling. COMPARISON: None FINDINGS: No acute fracture is identified. There are 2 screws within the base of the left first metacarpal. There is chondrocalcinosis within the TFCC. Moderate radiocarpal joint osteoarthritis is present. Well-corticated ossicle along the ulnar styloid is chronic. IMPRESSION: 1. No acute fractures within the left wrist. 2. Moderate radiocarpal joint osteoarthritis. Chondrocalcinosis within the TFCC. 3. 2 cannulated screws within the base of the left first metacarpal. ACT 112: Negative or not required by law. Electronically signed by: Guillaume Borrego M.D. 12/05/2023 5:02 PM Brain MRI 12/05/23 12:28 Brain MRI WITHOUT CONTRAST HISTORY: Recent syncope. r/o stroke TECHNIQUE: Multiplanar multisequence MRI of the brain was performed without the use of contrast. COMPARISON STUDY: Head CT 12/02/2023. Brain MRI 06/08/2011. FINDINGS: There is an 11 mm focus of restricted diffusion within the right cerebellar hemisphere and an 8 mm focus of restricted diffusion within the right side of the cerebellar vermis consistent with acute infarcts. There are few additional punctate foci of restricted diffusion seen within the left frontal lobe, bilateral parietal lobes, and left thalamus. These are also consistent with acute infarcts. This is likely due to underlying embolic phenomena. The midline structures are intact. There is no mass, hematoma, midline shift. The paranasal sinuses and mastoid air cells are clear. The major vascular flow-voids at the skull base are well-maintained. Prior bilateral lens replacement. The ventricles and sulci demonstrate mild age-related involutional changes. T2 hyperintensity seen within the white matter of the supratentorial brain favors moderate microvascular ischemic change. This has progressed in the interval. IMPRESSION: 1. Scattered small acute infarcts as described above, likely embolic. 2. Moderate microvascular ischemic changes. ACT 112: Negative or not required by law. Electronically signed by: Charlie Atkinson M.D. 12/05/2023 1:32 PM Carotid Doppler Study 12/05/23 14:19 CAROTID ARTERY ULTRASOUND CLINICAL HISTORY: Embolic strokes. COMPARISON STUDY: Carotid ultrasound June 08, 2011. TECHNIQUE: Real-time, grayscale, and color Doppler sonography of the carotid and vertebral arteries was performed. Images were viewed in the transverse and longitudinal planes. FINDINGS: There is moderate atherosclerotic plaque present within the left carotid bifurcation and mild plaque within the right carotid bifurcation. Velocity measurements are listed below. COMMON CAROTID PEAK SYSTOLIC VELOCITY (CM/S): RIGHT 79 LEFT 99 ICA PEAK SYSTOLIC VELOCITY (CM/S): RIGHT 59 LEFT 94 Systolic ratios between the internal to common carotid arteries were normal. Antegrade flow is seen in the vertebral arteries. The external carotid arteries are patent. IMPRESSION: Mild to moderate atherosclerotic plaque without evidence for a hemodynamically significant stenosis. ACT 112: Negative or not required by law. Electronically signed by: Guillaume Borrego M.D. 12/05/2023 4:49 PM Ordered Studies 12/02/23 23:09 CT head/brain wo con Stat 12/05/23 12:28 MRI Brain [MR brain wo con] Stat 12/05/23 14:19 Carotid duplex [US carotid doppler BI] Urgent Hospital Course (1) Near syncope: Ms. Palacios is an 83-year-old female with past med history significant for type 2 diabetes, hypothyroidism, hyperlipidemia, obstructive sleep apnea, mild persistent asthma, paroxysmal atrial fibrillation, hypertension, history of CAD, GERD, primary open-angle glaucoma, depression, presented to ED on 12/03 with [place] and near syncope. " Patient was recently in the hospital for left ankle sprain and syncope. Syncope thought to be from vasovagal. Echo showed normal EF. With grade 2 diastolic dysfunction and mild mitral regurgitation. Patient was evalauted by cardiology and thought syncope mostly vasovagal. Seen by orthopedics for left ankle pain and was thought most likely sprain. Was given short-term Celebrex and orthotics recommended cam boot. She was discharged to rehab. Patient states she was in rehab for 1 week. She followed with orthopedics clinic and she was given a shot to the left ankle. Last admission chlorthalidone was stopped for hyponatremia and she was placed on nifedipine 60 mg at discharge. She followed with PCP and nifedipine was increased to 90 mg. Today while she was ambulating with walker suddenly felt lightheaded and dizzy and felt like passing out but her significant other held her. She sat in the kitchen chairshe thinks she might have passed out for a moment. EMS was called and brought her here. In the ER labs showed magnesium of 1.0. 2 g of IV magnesium was given and IV fluids were given in ER. Patient still having some ambulatory dysfunction so we called for admission. Patient says still she has some pain in the left ankle. She forgot to bring her boots while coming to the hospital. Denies any headache. No runny nose or sore throat. No cough. Appetite is okay. Eating and drinking okay. No chest pain or shortness of breath. No nausea. No abdominal pain. Normal bowel and bladder movements." Cardioembolic CVA H/O Paroxysmal A FIB --MRI Brain: Scattered small acute infarcts as described above, likely embolic. Moderate microvascular ischemic changes. --Carotid USD: Mild to moderate atherosclerotic plaque without evidence for a hemodynamically significant stenosis. --ECHO: Left ventricle is normal in size. Mild concentric LVH. Basal septum is thickened and angulated consistent with sigmoid septum. Left ventricular wall motion is normal. EF 65 to 70%. Severe mitral annular calcification. High- pressure echogenicity below the posterior mitral valve annulus indents the atrial aspect likely representing calcific shadowing. This was present on prior studies but should be followed. No mitral regurgitation noted. -- Patient was not on anticoagulation for remote paroxysmal A-fib --S/P MELANIE: Left ventricle systolic function is normal. Mild mitral regurgitation is present. Mild focal mitral annular calcification. No valvular vegetation. Visualized portion of the descending thoracic aorta and aortic arch is without significant atheromatous disease. No thrombus within the left atrium or left atrial appendage. Interatrial septum is intact with out evidence of interatrial shunt. Continue apixaban, statin Normal Lipid panel: LDL 59 Given elderly age, LDL 59, source of CVA likely embolic will continue current dose of statin Appreciate neurology input Needs follow-up with neurology in 4 to 6 weeks Plan to discharge to rehab facility Hypertension BP variable Continue nifedipine Losartan changed to 50 mg twice daily Metoprolol titrate changed to metoprolol succinate 25 mg twice a day Monitor BP Suspected vasculitis Endocarditis--ruled out Elevated ESR, CRP MELANIE showed no signs of endocarditis/vegetation ROXANNE, C3, C4, ANCA pending Blood cultures negative to date Right upper extremity hematoma In setting of anticoagulation Monitor CBC Conservative management for now Hb stable Left wrist swelling/pain --X ray:No acute fractures within the left wrist. Moderate radiocarpal joint osteoarthritis. Chondrocalcinosis within the TFCC. 2 cannulated screws within the base of the left first metacarpal. -ICE, Voltaren topical Consider ortho evaluation if needed Trial of low-dose prednisone Near syncope Concern for vasovagal Potentially related to embolic shower noted on MRI 12/05 Last admission syncope work was done and thought to be vasovagal Monitor and replace electrolyte disturbances as needed Cardiology following Elevated troponin CAD s/p stent in Down trended, no acute chest pain Continue ASA, Atorvastatin Transition to Metoprolol Succinate 25mg BID Hypomagnesia Hypokalemia Replace electrolytes as needed Monitor Hyponatremia Last admission chlorthalidone was stopped But seems in rehab she was placed on salt tablets Sodium 135 today Monitor Left ankle sprain Recently received shot to ankle by Ortho On boot PT OT Follow-up appointment with Ortho Ambulation dysfunction PT OT Fall precautions Hypothyroidism Normal TSH Continue levothyroxine Obstructive sleep apnea CPAP HS DM II HbA1c 6.0 Hold metformin Continue Insulin sliding scale Monitor BGs Mild persistent asthma Currently stable Continue home inhalers Depression continue venlafaxine Primary open-angle glaucoma Continue home eyedrops DVT Px: Apixaban CODE STATUS Full code Disposition Rehab Total Time Total Time Spent Total Time Spent (In Minutes): 65 minutes Discharge Plan Discharge Items Patient Disposition: Transfer Inpatient Rehab Fac Reason For Visit: WEAKNESS, NEAR SYNCOPE, HYPOMAGNESIA Discharge Diagnosis: Cardioembolic CVA Near syncope Hyponatremia Ambulation dysfunction Hypertension Activity: Per Instructions section Exercise/Sports: Gradually increase as tolerated Non-emergency contact: Primary Care Provider, Vacuum Drum Drier Operator and Neurologist Call non-emergency contact if: you have any medication questions, your symptoms worsen, your pain is concerning for you and you have a fever Follow-up/Referrals: PCP,NO [Primary Care Provider] - Diet: Carb Consistent or DM2 and Heart Healthy Addtl Attending Provider Instructions: Follow-up with your primary care physician in 1 week upon discharge from your facility Follow-up with your building cleaning supervisor Dr. Peacock in 3 to 4 weeks Follow-up with your neurologist in 4 to 6 weeks -- Monitor your blood pressure regularly as advised. Discuss with your physician for further adjustment of medications as advised. --your blood test: ROXANNE, C3, C4, ANCA are pending at the time of discharge. Follow-up with the physician for results Seek immediate medical attention if your symptoms reoccur or worsen Please take all medications as instructed on discharge list below. Please call if you have any questions or problems. You can reach a [facility] hospitalist on duty at [facility] 24 hours a day by calling [phone] Risk Factors for Stroke: You can reduce your chances of stroke by working with your medical provider to adopt a healthy lifestyle. Some specific ways to lower your chance of stroke are: * If you are a smoker, now is the time to stop smoking cigarettes * If you are diabetic, improve the control of your blood sugars * Avoid excessive amounts of alcohol * Control high blood pressure * Lose weight if you are overweight * Be sure to lead an active lifestyle * Eat a healthy diet low in salt, cholesterol and fat You should know about other risk factors for stroke that you are unable to control. These include: * Age 55 years or older * Male gender * Certain racial groups: , or / * Family History of Stroke, Mini stroke or Heart Attack * Sickle Cell Disease Follow Up: It is important for you to keep your follow up appointments with your medical provider. Who to Call and When: Medical Emergencies: Call 911 immediately if you experience any of the following warning signs and symptoms of Stroke: * Sudden numbness or weakness of the face, arm or leg, especially on one side of the body * Sudden confusion, trouble speaking or understanding * Sudden trouble seeing in one or both eyes * Sudden trouble walking, dizziness, loss of balance or coordination * Sudden severe headache with no cause Do not delay calling 911 if you experience any warning signs or symptoms of a stroke. Delay in seeking medical attention may affect what treatments can be given to you. . Pending Studies at Discharge: Yes Studies:: ROXANNE, C3, C4, ANCA pending Stand-Alone Forms: My [facility] Skilled Items Patient informed of condition?: Yes DNR: No Discharge Level of Care: Acute rehab Communicable Disease: No Discharge Prognosis: Stable Lines: None Urinary Catheter: No Medications and DC Order Prescriptions: New Eliquis 5 mg Tablet 5 mg PO BID Qty: 0 0RF losartan 50 mg Tablet 50 mg PO BID Qty: 0 0RF metoprolol succinate 25 mg Tablet Extended Release 24 Hr 25 mg PO BID Qty: 0 0RF Continued atorvastatin 20 mg tablet 20 mg PO HS montelukast 10 mg tablet 10 mg PO QPM multivitamin Tablet 1 tab PO DAILY metformin 850 mg tablet 850 mg PO BIDM fluticasone propionate 50 mcg/actuation spray,suspension 2 spray intranasal QAM coenzyme Q10 [CoQ-10] 100 mg Capsule 100 mg PO QAM dexlansoprazole [Dexilant] 60 mg capsule,biphase delayed releas 60 mg PO QAM cyanocobalamin (vitamin B-12) 1,000 mcg Capsule 1,000 mcg PO QPM venlafaxine 37.5 mg Capsule,Extended Release 24hr 37.5 mg PO DAILY Lumigan 0.01 % Drops 1 drp OPB HS zinc gluconate 50 mg Tablet 50 mg PO QPM magnesium oxide 400 mg (241.3 mg magnesium) Tablet 400 mg PO QAM albuterol sulfate 90 mcg/actuation Hfa Aerosol Inhaler 2 puff INHALATION Q4H PRN (Reason: Shortness Of Breath Or Wheezing) azelastine 137 mcg (0.1 %) Aerosol,Baldwin 2 spray INTRANASAL QPM Rx Instructions: administer into each nostril aspirin [Ecotrin Low Strength] 81 mg Tablet,Delayed Release (Dr/Ec) 81 mg PO QPM cholecalciferol (vitamin D3) 25 mcg (1,000 unit) Tablet 25 mcg PO QAM ascorbic acid (vitamin C) 500 mg Tablet 500 mg PO QAM oxybutynin chloride 10 mg tablet extended release 24hr 10 mg PO QAM fluticasone propion-salmeterol [Wixela Inhub] 250-50 mcg/dose blister with device 1 inh INHALATION BID ketoconazole 2 % cream 1 applic TOPICAL BID Rx Instructions: apply sparingly to affected area nifedipine 90 mg tablet extended release 24hr 90 mg PO QAM levothyroxine 100 mcg Tablet 100 mcg PO DAILYBB potassium chloride [Klor-Con M10] 10 mEq tablet,ER particles/crystals 20 meq PO BID Discontinued losartan 100 mg tablet 100 mg PO QAM metoprolol tartrate 25 mg tablet 25 mg PO BID sodium chloride 1,000 mg tablet,soluble 1,000 mg PO [facility] Discharge Orders: Discharge Order (Routine); Ordered 12/09/23 Ordered By: Gio Baltazar Admission Data Admit Date/Time: 12/03/23 05:29 Attending Provider: Gio Baltazar Admit Provider: Aniket Ochoa Primary Care Provider: PCP,NO Other Providers: Aniket Ochoa; Carla Cannon; Chace Peacock; Enrico Graham; Kris Chandler; Ramón Pendleton; Andrea Chau; Francheska Ponce; Emelia Shelton Ashley M.; Darnell Cardoso; Lorne Champion; Jesica Pereira; Gabrielle Bell; Tahmina Pool; Greg Encarnacion; Manuel Will; [facility]; [facility]; Brandt Denny
[2023-12-10] MEDS ORDERED: NIFEdipine EXTENDED REL 30 MG TABCR PO SCH (09:00)
[2023-12-10] MEDS ORDERED: LOSARTAN POTASSIUM 50 MG TAB PO SCH ×2 (09:00)
[2023-12-14 13:52] LABS: ANCA Screen Negative (Negative); Anti Nuclear Antibody Screen NEGATIVE (NEGATIVE); Complement C3 162 mg/dL; Complement Total(CH50) >60 U/mL (31-60)
== END 2023-12-09 17:09 | DRG 65 ==
LOC: ED 22:55 → SUATTDRO 12-03 05:29 → EDINP 12-03 05:29 → 2N 12-03 06:01

== ENCOUNTER 2023-12-22 21:57 | Observation (INO) ==
[2023-12-22] MEDS ORDERED: SODIUM CHLORIDE 0.9% 500 ML IV ONE (23:04)
[2023-12-22] MEDS ORDERED: ONDANSETRON INJ 2 MG/ML 2 ML VIAL IV STA (23:04)
[2023-12-22 23:05] LABS: Basophils # (auto) 0.04 K/uL (0.00-0.20); Basophils % (auto) 0.3 %; Eosinophils # (auto) 0.08 K/uL (0.00-0.50); Eosinophils % (auto) 0.5 %; Hematocrit (blood only) 41.1 % (37.0-47.0); Hemoglobin 13.1 g/dl (12.0-16.0); Immature Granulocytes % (auto) 0.7 %; Lymphocytes # (auto) 1.53 K/uL (1.20-3.40); Lymphocytes % (auto) 9.9 %; Mean Corpuscular Hemoglobin 28.6 pg (25.0-34.0); Mean Corpuscular Hgb Conc 31.9 g/dL (32.0-36.0); Mean Corpuscular Volume 89.7 fL (80.0-100.0); Mean Platelet Volume 11.1 fL (9.4-12.4); Monocytes # (auto) 0.55 K/uL (0.11-0.59); Monocytes % (auto) 3.6 %; Neutrophils # (auto) 13.08 K/uL (1.40-6.50); Platelet Count 390 K/uL (130-400); RDW Coefficient of Variation 15.3 % (11.5-14.5); RDW Standard Deviation 50.1 fL (36.4-46.3); Red Blood Count 4.58 M/uL (4.20-5.40); White Blood Count 15.38 K/ul (4.8-10.8)
--- NOTE | 2023-12-22 23:06 | Emergency Department Note ---
Impression & Plan Nausea & vomiting ADMIT ED Provider Note HPI: History obtained from patient and son at bedside. The patient is a 83-year-old female with history of recent CVA, currently on Eliquis, recent discharge from inpatient rehabilitation to home over the weekend, presents the emergency department with a chief complaint of vomiting. Patient states that earlier today after lunch she began to feel ill, patient states she felt very nauseated and had several episodes of vomiting. Patient was at home with her boyfriend, they contacted the patient's son and eventually the patient was transported to the ED to be assessed. Patient has not had any neurologic symptoms, she is alert and oriented on arrival, she states she does have some mild chest pain that is been present since earlier this afternoon but denies any current abdominal pain. Patient is hemodynamically stable on arrival and saturating well on room air. Patient does not have any focal deficits on my evaluation. ROS: - Per HPI Differential Diagnosis: Viral gastroenteritis, small bowel obstruction, diverticulitis, acute cholecystitis, acute appendicitis, amongst other potential pathologies. *Outpatient medications and allergy history reviewed. PE: General: Alert HEENT: Normocephalic, trachea midline Eyes: Extraocular eye movement is intact, no scleral erythema Pulmonary: Clear to auscultation bilaterally, no wheezing Cardio: Regular rate and rhythm GI: Abdomen is soft to palpation, mild abdominal tenderness to palpation with mild distention : No suprapubic tenderness MSK: No evidence of trauma or malformation of the extremities, no edema Skin: No evidence of rash Neuro: Alert, no focal deficits, symmetrical facial movements are appreciated, no drift of the upper extremities or lower extremities with testing against gravity Psychiatric: Cooperative INDEPENDENT INTERPRETATIONS: [facility] [employer] [facility] former: (As interpreted by myself): - An order was placed for continuous cardiac monitoring - Patient was noted to be in sinus rhythm with a rate of 75 EKG: (As interpreted by myself): Rate: 81 Rhythm: Normal sinus rhythm Intervals: Within normal limits ST changes: No ST elevation Time: 2242 Interventions provided in ED: -IV fluid bolus, IV Zofran Medical Decision Making: IV was established and lab work obtained, patient was placed on mixologist. Lab work shows a leukocytosis of 15.38, hemoglobin is normal, platelet count is normal, CMP does not show any critical findings. No evidence of acute kidney injury. Lipase is 10, troponin is negative x 1. EKG shows normal sinus rhythm without any acute ischemic changes. Urinalysis shows 2+ ketones, trace leukocyte esterase, urine nitrate negative, there is evidence of contamination. Will hold off on antibiotics at this time. Viral panel testing was obtained and is negative. CT imaging of the abdomen pelvis was obtained and shows evidence of a large hiatal hernia without any evidence of acute surgical abnormalities. Patient was given IV fluids and IV Zofran here in the ED and on my reassessment she states she is feeling improved. Patient's son at the bedside states that she generally has not been feeling well since she was discharged from [facility] and her illness has affected her to the point that he does not feel that she is able to take care of herself at home where she lives with her elderly significant other. He states that he would be more comfortable and she would be more comfortable with admission for PT/OT consultation and possibly placement back at [facility] for rehabilitation. Given this, case was discussed with the on-call hospitalist, Dr. Arreola, and the patient was placed for admission in stable condition. Consultants/Discussions held with other healthcare providers: -Hospitalist, Dr. Arreola Disposition discussion held by myself with: -Patient and son at bedside Diagnosis: 1. Nausea and vomiting, acute 2. Leukocytosis, acute 3. Generalized weakness with ambulatory dysfunction, acute 4. Ketonuria, acute Disposition: Admission Andrea Laws DO Emergency Medicine Past Med/Surg History Medical History Right rotator cuff tear Right knee DJD CAD (coronary artery disease) stent in 1999 T2DM (type 2 diabetes mellitus) HTN (hypertension) HLD (hyperlipidemia) PAF (paroxysmal atrial fibrillation) DEMARIO (obstructive sleep apnea) Asthma CKD (chronic kidney disease) stage 3, GFR 30-59 ml/min Primary open angle glaucoma GERD (gastroesophageal reflux disease) Hypothyroidism History of placement of stent in LAD coronary artery Sleep apnea Surgical History History of rotator cuff surgery History of cataract extraction History of arthroscopic knee surgery History of tonsillectomy History of appendectomy Stented coronary artery Family History Father CHF (congestive heart failure) Mother Cancer Social History Smoking Status: Never smoker Hx Alcohol Use: No Hx Substance Use: No Preferred Language: Occitan Communication Ability: Effective Methods Specialist Required: No Beliefs That Will Affect Care: None marital status: Life Partner Current Living Situation: Spouse Current Living Situation Comment: s/o Feels Safe at Home: Yes Assistive Devices: Cane, CPAP and Walker Allergies Allergies Allergy/AdvReac Type Severity Reaction Status Date / Time Penicillins Allergy Mild . Verified 11/15/23 13:55 broccoli Allergy Unknown GAS Unverified 11/15/23 13:55 grapefruit Allergy Unknown BRONCHITIS Unverified 11/15/23 13:55 mold Allergy Unknown asthma Verified 11/15/23 13:55 symptoms orange Allergy Unknown BRONCHITIS Unverified 11/15/23 13:55 paroxetine Allergy Unknown ANAPHYLAXIS Unverified 11/15/23 13:55 pollen extracts Allergy Unknown asthma Verified 11/15/23 13:55 symptoms vasquez AdvReac Unknown gas and Verified 12/03/23 06:17 bloating with consuption of green or kidneys beans crab AdvReac Unknown diarrhea Verified 11/15/23 13:55 peanut AdvReac Unknown gas/bloatin Unverified 11/15/23 13:55 g Home Meds Home Medications Medication Instructions Recorded Confirmed atorvastatin 20 mg tablet 20 mg PO HS 08/22/19 12/23/23 coenzyme Q10 100 mg capsule 100 mg PO M 08/22/19 12/23/23 (CoQ-10) cyanocobalamin (vitamin B-12) 1,000 mcg PO HS 08/22/19 12/23/23 1,000 mcg capsule dexlansoprazole 60 mg 60 mg PO DAILYBB 08/22/19 12/23/23 capsule,biphase delayed release (Dexilant) fluticasone propionate 50 2 spray intranasal QA 08/22/19 12/23/23 mcg/actuation nasal spray,suspension metformin 850 mg tablet 850 mg PO BIDM 08/22/19 12/23/23 montelukast 10 mg tablet 10 mg PO HS 08/22/19 12/23/23 multivitamin 1 tab PO DAILY 08/22/19 12/23/23 venlafaxine 37.5 mg 37.5 mg PO DAILY 08/24/19 12/23/23 capsule,extended release 24 hr bimatoprost 0.01 % eye drops 1 drp OPB HS 05/08/22 12/23/23 (Lumigan) albuterol sulfate 90 mcg/actuation 2 puff inhalation Q4H PRN Wheezing 10/23/23 12/23/23 aerosol inhaler ascorbic acid (vitamin C) 500 mg 500 mg PO QAM 10/23/23 12/23/23 tablet aspirin 81 mg tablet,delayed 81 mg PO HS 10/23/23 12/23/23 release (Ecotrin Low Strength) azelastine 137 mcg (0.1 %) nasal 2 spray intranasal HS 10/23/23 12/23/23 spray aerosol cholecalciferol (vitamin D3) 25 25 mcg PO QAM 10/23/23 12/23/23 mcg (1,000 unit) tablet fluticasone 250 mcg-salmeterol 50 1 inh inhalation BID 10/23/23 12/23/23 mcg/dose blistr powdr for inhalation (Wixela Inhub) magnesium oxide 400 mg (241.3 mg 400 mg PO QAM 10/23/23 12/23/23 magnesium) tablet oxybutynin chloride 10 mg 10 mg PO QAM 10/23/23 12/23/23 tablet,extended release 24 hr zinc gluconate 50 mg tablet 50 mg PO QPM 10/23/23 12/23/23 ketoconazole 2 % topical cream 1 applic topical BID 12/02/23 12/23/23 levothyroxine 100 mcg tablet 100 mcg PO DAILYBB 12/02/23 12/23/23 nifedipine 90 mg tablet,extended 90 mg PO QAM 12/02/23 12/23/23 release 24 hr potassium chloride 10 mEq 20 meq PO BID 12/03/23 12/23/23 tablet,extended release(part/cryst) (Klor-Con M) apixaban 5 mg tablet (Eliquis) 5 mg PO Q12 12/23/23 12/23/23 furosemide 20 mg tablet 20 mg PO DAILY 12/23/23 12/23/23 losartan 50 mg tablet 50 mg PO Q12 12/23/23 12/23/23 metoprolol succinate 25 mg 25 mg PO Q12 12/23/23 12/23/23 tablet,extended release 24 hr multivitamin with minerals 1 tab PO DAILY 12/23/23 12/23/23 Results & Data (ED) Vital Signs Vital Signs - 24 hr 12/22/23 22:02 12/22/23 22:15 12/22/23 22:20 Pulse Rate 81 84 107 H Pulse Rate from SpO2 Sensor Respiratory Rate 13 18 17 Respiratory Effort / Characteristics Non-Labored Spontaneous Respiratory Depth Normal Respiratory Pattern Regular Blood Pressure 144/66 H Blood Pressure Mean 92 Blood Pressure Position Semi-fowlers Pulse Oximetry 96 Oxygen Delivery Method Room Air Sepsis Recent Fever Within 48 Hours No Sepsis New/Unexplained Change in Mental Status No Sepsis Action Taken by Nursing No Action Required 12/22/23 22:25 12/22/23 22:30 12/22/23 22:40 Pulse Rate 90 82 78 Pulse Rate from SpO2 Sensor 79 Respiratory Rate 18 18 Respiratory Effort / Characteristics Respiratory Depth Respiratory Pattern Blood Pressure Blood Pressure Mean Blood Pressure Position Pulse Oximetry 95 Oxygen Delivery Method Sepsis Recent Fever Within 48 Hours Sepsis New/Unexplained Change in Mental Status Sepsis Action Taken by Nursing 12/22/23 22:50 12/22/23 23:00 12/22/23 23:10 Pulse Rate 80 83 68 Pulse Rate from SpO2 Sensor 80 83 69 Respiratory Rate 25 H 16 16 Respiratory Effort / Characteristics Respiratory Depth Respiratory Pattern Blood Pressure Blood Pressure Mean Blood Pressure Position Pulse Oximetry 92 96 88 L Oxygen Delivery Method Sepsis Recent Fever Within 48 Hours Sepsis New/Unexplained Change in Mental Status Sepsis Action Taken by Nursing 12/22/23 23:20 12/22/23 23:30 12/22/23 23:40 Pulse Rate 83 69 79 Pulse Rate from SpO2 Sensor 83 67 64 Respiratory Rate 25 H 16 16 Respiratory Effort / Characteristics Respiratory Depth Respiratory Pattern Blood Pressure Blood Pressure Mean Blood Pressure Position Pulse Oximetry 95 88 L 89 L Oxygen Delivery Method Sepsis Recent Fever Within 48 Hours Sepsis New/Unexplained Change in Mental Status Sepsis Action Taken by Nursing 12/23/23 00:03 12/23/23 00:10 12/23/23 00:20 Pulse Rate 80 83 84 Pulse Rate from SpO2 Sensor 81 85 Respiratory Rate 15 17 Respiratory Effort / Characteristics Respiratory Depth Respiratory Pattern Blood Pressure Blood Pressure Mean Blood Pressure Position Pulse Oximetry 97 98 Oxygen Delivery Method Sepsis Recent Fever Within 48 Hours Sepsis New/Unexplained Change in Mental Status Sepsis Action Taken by Nursing 12/23/23 00:30 12/23/23 00:40 12/23/23 00:50 Pulse Rate 76 70 74 Pulse Rate from SpO2 Sensor 74 70 75 Respiratory Rate 19 14 15 Respiratory Effort / Characteristics Respiratory Depth Respiratory Pattern Blood Pressure Blood Pressure Mean Blood Pressure Position Pulse Oximetry 97 97 94 Oxygen Delivery Method Sepsis Recent Fever Within 48 Hours Sepsis New/Unexplained Change in Mental Status Sepsis Action Taken by Nursing 12/23/23 01:00 12/23/23 01:10 12/23/23 01:20 Pulse Rate 75 71 81 Pulse Rate from SpO2 Sensor 74 70 79 Respiratory Rate 19 11 L 21 Respiratory Effort / Characteristics Respiratory Depth Respiratory Pattern Blood Pressure Blood Pressure Mean Blood Pressure Position Pulse Oximetry 93 97 91 Oxygen Delivery Method Sepsis Recent Fever Within 48 Hours Sepsis New/Unexplained Change in Mental Status Sepsis Action Taken by Nursing 12/23/23 01:30 12/23/23 01:40 12/23/23 01:58 Pulse Rate 72 74 74 Pulse Rate from SpO2 Sensor 72 73 75 Respiratory Rate 16 16 15 Respiratory Effort / Characteristics Respiratory Depth Respiratory Pattern Blood Pressure Blood Pressure Mean Blood Pressure Position Pulse Oximetry 93 91 95 Oxygen Delivery Method Sepsis Recent Fever Within 48 Hours Sepsis New/Unexplained Change in Mental Status Sepsis Action Taken by Nursing 12/23/23 02:00 Pulse Rate 77 Pulse Rate from SpO2 Sensor 77 Respiratory Rate 13 Respiratory Effort / Characteristics Respiratory Depth Respiratory Pattern Blood Pressure 140/66 Blood Pressure Mean 90 Blood Pressure Position Pulse Oximetry 94 Oxygen Delivery Method Sepsis Recent Fever Within 48 Hours Sepsis New/Unexplained Change in Mental Status Sepsis Action Taken by Nursing Laboratory Data 12/22/23 22:32 12/22/23 22:32 Lab Results 12/22/23 12/22/23 12/23/23 Range/Units 22:32 23:17 00:17 WBC 15.38 H (4.8-10.8) K/ul RBC 4.58 (4.20-5.40) M/uL Hgb 13.1 (12.0-16.0) g/dl Hct 41.1 (37.0-47.0) % MCV 89.7 (80.0-100.0) fL MCH 28.6 (25.0-34.0) pg MCHC 31.9 L (32.0-36.0) g/dL RDW Std Deviation 50.1 H (36.4-46.3) fL RDW Coeff of Stoney 15.3 H (11.5-14.5) % Plt Count 390 (130-400) K/uL MPV 11.1 (9.4-12.4) fL Immature Gran % (Auto) 0.7 % Neut % (Auto) 85.0 % Lymph % (Auto) 9.9 % [place] % (Auto) 3.6 % Eos % (Auto) 0.5 % Baso % (Auto) 0.3 % Neut # (Auto) 13.08 H (1.40-6.50) K/uL Lymph # (Auto) 1.53 (1.20-3.40) K/uL [place] # (Auto) 0.55 (0.11-0.59) K/uL Eos # (Auto) 0.08 (0.00-0.50) K/uL Baso # (Auto) 0.04 (0.00-0.20) K/uL Immature Gran # (Auto) 0.10 (0.01-0.20) K/uL PT 11.4 (9.0-12.0) Seconds INR 1.0 (0.9-1.1) Sodium 138 (136-145) mmol/L Potassium 3.5 (3.5-5.1) mmol/L Chloride 100 (98-107) mmol/L Carbon Dioxide 25 (21-32) mmol/L Anion Gap 13 H (3-11) BUN 18 (6-23) mg/dl Creatinine 0.74 (0.6-1.2) mg/dl Est Cr Clr Drug Dosing 51.9 ml/min Est GFR ( Amer) 86.2 ml/min Est GFR (Non-Af Amer) 74.4 ml/min BUN/Creatinine Ratio 24.3 H (10-20) Glucose 223 H (70-99(Fasting)) mg/dl Calcium 10.0 (8.6-10.3) mg/dl Magnesium 1.1 L (1.7-2.4) mg/dl Total Bilirubin 0.3 (0.2-1.0) mg/dl AST 12 L (13-39) U/L ALT 9 (7-52) U/L Alkaline Phosphatase 62 (34-104) U/L Troponin I High Sens 7.4 (0-14) pg/ml Total Protein 7.4 (6.0-8.3) gm/dl Albumin 4.2 (3.4-5.0) gm/dl Globulin 3.2 (2.5-4.0) gm/dl Albumin/Globulin Ratio 1.3 (0.9-2) Lipase 10 L (11-82) U/L Urine Color Yellow Urine Appearance Clear (Clear) Urine pH 7.5 (4.5-7.5) Ur Specific [place] 1.018 (1.000-1.030) Urine Protein Negative (Negative) Urine Glucose (UA) Negative (Negative) Urine Ketones 2+ H (Negative) Urine Blood Negative (Negative) Urine Nitrite Negative (Negative) Urine Bilirubin Negative (Negative) Urine Urobilinogen Negative (Negative) Ur Leukocyte Esterase Trace H (Negative) Urine WBC (Auto) 1-5 (0-5) /hpf Urine RBC (Auto) 0-4 (0-4) /hpf U Hyaline Cast (Auto) 1-5 (0-5) /lpf U Epithel Cells (Auto) 10-20 H (0-5) /lpf Urine Bacteria (Auto) Negative (Negative) Adenovirus (PCR) Not Detected (NotDetected) B. pertussis DNA (PCR) Not Detected (NotDetected) B.parapertussis DNA PCR Not Detected (NotDetected) C. pneumoniae DNA (PCR) Not Detected (NotDetected) Coronavirus OC43 (PCR) Not Detected (NotDetected) Coronavirus HKU1 (PCR) Not Detected (NotDetected) Coronavirus 229E (PCR) Not Detected (NotDetected) SARS-CoV-2 (PCR) Not Detected (NotDetected) Coronavirus NL63 (PCR) Not Detected (NotDetected) Human Metapneumovir PCR Not Detected (NotDetected) Influenza Type A (PCR) Not Detected (NotDetected) Influenza Type B (PCR) Not Detected (NotDetected) M. pneumoniae (PCR) Not Detected (NotDetected) Parainfluenza 1 (PCR) Not Detected (NotDetected) Parainfluenza 2 (PCR) Not Detected (NotDetected) Parainfluenza 3 (PCR) Not Detected (NotDetected) Parainfluenza 4 (PCR) Not Detected (NotDetected) RSV (PCR) Not Detected (NotDetected) Entero/Rhino (PCR) Not Detected (NotDetected) Administered Medications Discontinued Medications Sodium Chloride (Nss) 500 mls @ 999 mls/hr IV .Q31M ONE Stop: 12/22/23 23:34 Last Infusion: 12/23/23 01:14 Dose: Infused Documented By: Admin: 12/22/23 23:20 Dose: 999 mls/hr Documented By: CONSUELO Ioversol (Optiray 320 500ml) 100 ml IV ONCE ONE Stop: 12/22/23 23:53 Last Admin: 12/22/23 23:52 Dose: 65 ml Documented By: LEIGHA Ondansetron HCl (Ondansetron Inj 2 Mg/Ml 2 Ml Vial) 4 mg IV NOW STA Stop: 12/22/23 23:05 Last Admin: 12/22/23 23:20 Dose: 4 mg Documented By: CONSUELO Imaging Data Radiologist's Impression: Abdomen/Pelvis CT 12/22/23 23:04 Exam(s): CT ABDOMEN + PELVIS With Contrast IV Amt: 65 ML OPTIRAY 320 EXAM: CT Abdomen and Pelvis With Intravenous Contrast CLINICAL HISTORY: Reason for exam: N/v. TECHNIQUE: Axial computed tomography images of the abdomen and pelvis with intravenous contrast. Automated exposure control was utilized for the study. A dose lowering technique was utilized adhering to the principles of ALARA. CONTRAST: Patient received 65 ML OPTIRAY 320 of IV contrast COMPARISON: 07/09/2021 FINDINGS: Lung bases: Unremarkable. No mass. No consolidation. Heart: Cardiomegaly. Mediastinum: Large esophageal hiatal hernia. ABDOMEN: Liver: Unremarkable. No mass. Gallbladder and bile ducts: Unremarkable. No calcified stones. No ductal dilation. Pancreas: Unremarkable. No mass. No ductal dilation. Spleen: Unremarkable. No splenomegaly. Adrenals: Unremarkable. No mass. Kidneys and ureters: Simple left renal cyst. No follow-up of this simple cyst is necessary. No hydronephrosis. Stomach and bowel: Large amount of stool within the rectum. Diverticulosis without evidence of diverticulitis. Diverticulosis without evident diverticulitis. Large esophageal hiatal hernia Esophageal PELVIS: Appendix: Postoperative changes prior appendectomy. Bladder: Unremarkable. No mass. Reproductive: Unremarkable as visualized. ABDOMEN and PELVIS: Intraperitoneal space: Unremarkable. No free air. No significant fluid collection. Bones/joints: No acute fracture. No dislocation. Soft tissues: Unremarkable. Vasculature: Unremarkable. No abdominal aortic aneurysm. Lymph nodes: Unremarkable. No enlarged lymph nodes. IMPRESSION: Large esophageal hiatal hernia. Electronically signed by: Bowen Mendes MD 12/23/23 00:27 AM Discharge Plan Visit Data Chief Complaint: Illness ED Provider: Andrea Laws Discharge Problem: Nausea & vomiting Forms Stand Alone Forms: My [facility] Prescriptions Prescriptions: No Action atorvastatin 20 mg tablet 20 mg PO HS montelukast 10 mg tablet 10 mg PO HS multivitamin Tablet 1 tab PO DAILY metformin 850 mg tablet 850 mg PO BIDM fluticasone propionate 50 mcg/actuation spray,suspension 2 spray intranasal QAM coenzyme Q10 [CoQ-10] 100 mg Capsule 100 mg PO QAM dexlansoprazole [Dexilant] 60 mg capsule,biphase delayed releas 60 mg PO DAILYBB cyanocobalamin (vitamin B-12) 1,000 mcg Capsule 1,000 mcg PO HS venlafaxine 37.5 mg Capsule,Extended Release 24hr 37.5 mg PO DAILY Lumigan 0.01 % Drops 1 drp OPB HS zinc gluconate 50 mg Tablet 50 mg PO QPM magnesium oxide 400 mg (241.3 mg magnesium) Tablet 400 mg PO QAM albuterol sulfate 90 mcg/actuation Hfa Aerosol Inhaler 2 puff INHALATION Q4H PRN (Reason: Wheezing) azelastine 137 mcg (0.1 %) Aerosol,[place] 2 spray INTRANASAL HS Rx Instructions: administer into each nostril aspirin [Ecotrin Low Strength] 81 mg Tablet,Delayed Release (Dr/Ec) 81 mg PO HS cholecalciferol (vitamin D3) 25 mcg (1,000 unit) Tablet 25 mcg PO QAM ascorbic acid (vitamin C) 500 mg Tablet 500 mg PO QAM oxybutynin chloride 10 mg tablet extended release 24hr 10 mg PO QAM fluticasone propion-salmeterol [Wixela Inhub] 250-50 mcg/dose blister with device 1 inh INHALATION BID ketoconazole 2 % cream 1 applic TOPICAL BID Rx Instructions: apply sparingly to affected area nifedipine 90 mg tablet extended release 24hr 90 mg PO QAM levothyroxine 100 mcg Tablet 100 mcg PO DAILYBB potassium chloride [Klor-Con M10] 10 mEq tablet,ER particles/crystals 20 meq PO BID furosemide 20 mg tablet 20 mg PO DAILY Eliquis 5 mg tablet 5 mg PO Q12 losartan 50 mg tablet 50 mg PO Q12 metoprolol succinate 25 mg tablet extended release 24 hr 25 mg PO Q12 multivitamin with minerals Tablet 1 tab PO DAILY Referrals Referrals: PCP,NO [Primary Care Provider] - Discharge Problem: Nausea & vomiting Qualifiers: Vomiting type: unspecified Qualified Code(s): R11.2 - Nausea with vomiting, unspecified
[2023-12-22 23:23] LABS: Albumin Globulin Ratio 1.3 (0.9-2); Albumin Level 4.2 gm/dl (3.4-5.0); BUN Creatinine Ratio 24.3 (10-20); Bilirubin,Total 0.3 mg/dl (0.2-1.0); Creatinine Clr Calc Pharmacy 51.9 ml/min; Est GFR (African American) 86.2 ml/min; Est GFR (Non-African American) 74.4 ml/min; Globulin 3.2 gm/dl (2.5-4.0); Potassium 3.5 mmol/L (3.5-5.1); Total Protein 7.4 gm/dl (6.0-8.3)
[2023-12-22 23:30] LABS: Troponin I High Sensitivity 7.4 pg/ml (0-14)
[2023-12-22 23:40] LABS: Prothrombin Time 11.4 Seconds (9.0-12.0)
[2023-12-22] MEDS ORDERED: OPTIRAY 320 500ml IV ONE (23:52)
[2023-12-23 00:17] LABS: Adenovirus PCR Not Detected (NotDetected); Bordetella parapertussis PCR Not Detected (NotDetected); Bordetella pertussis PCR Not Detected (NotDetected); Chlamydia pneumoniae PCR Not Detected (NotDetected); Coronavirus 229E PCR Not Detected (NotDetected); Coronavirus CoV-2 (COVID19)PCR Not Detected (NotDetected); Coronavirus HKU1 PCR Not Detected (NotDetected); Coronavirus NL63 PCR Not Detected (NotDetected); Coronavirus OC43PCR Not Detected (NotDetected); Human Metapneumovirus PCR Not Detected (NotDetected); Influenza A PCR Not Detected (NotDetected); Influenza B PCR Not Detected (NotDetected); Mycoplasma pneumoniae PCR Not Detected (NotDetected); Parainfluenza Virus 1 PCR Not Detected (NotDetected); Parainfluenza Virus 2 PCR Not Detected (NotDetected); Parainfluenza Virus 3 PCR Not Detected (NotDetected); Parainfluenza Virus 4 PCR Not Detected (NotDetected); Respiratory Syncytial VirusPCR Not Detected (NotDetected); Rhinovirus/Enterovirus PCR Not Detected (NotDetected)
--- NOTE | 2023-12-23 00:28 | CT Scan Report ---
Exam(s): CT ABDOMEN + PELVIS With Contrast IV Amt: 65 ML OPTIRAY 320 EXAM: CT Abdomen and Pelvis With Intravenous Contrast CLINICAL HISTORY: Reason for exam: N/v. TECHNIQUE: Axial computed tomography images of the abdomen and pelvis with intravenous contrast. Automated exposure control was utilized for the study. A dose lowering technique was utilized adhering to the principles of ALARA. CONTRAST: Patient received 65 ML OPTIRAY 320 of IV contrast COMPARISON: 07/09/2021 FINDINGS: Lung bases: Unremarkable. No mass. No consolidation. Heart: Cardiomegaly. Mediastinum: Large esophageal hiatal hernia. ABDOMEN: Liver: Unremarkable. No mass. Gallbladder and bile ducts: Unremarkable. No calcified stones. No ductal dilation. Pancreas: Unremarkable. No mass. No ductal dilation. Spleen: Unremarkable. No splenomegaly. Adrenals: Unremarkable. No mass. Kidneys and ureters: Simple left renal cyst. No follow-up of this simple cyst is necessary. No hydronephrosis. Stomach and bowel: Large amount of stool within the rectum. Diverticulosis without evidence of diverticulitis. Diverticulosis without evident diverticulitis. Large esophageal hiatal hernia Esophageal PELVIS: Appendix: Postoperative changes prior appendectomy. Bladder: Unremarkable. No mass. Reproductive: Unremarkable as visualized. ABDOMEN and PELVIS: Intraperitoneal space: Unremarkable. No free air. No significant fluid collection. Bones/joints: No acute fracture. No dislocation. Soft tissues: Unremarkable. Vasculature: Unremarkable. No abdominal aortic aneurysm. Lymph nodes: Unremarkable. No enlarged lymph nodes. IMPRESSION: Large esophageal hiatal hernia. Electronically signed by: Bowen Mendes MD 12/23/23 00:27 AM
[2023-12-23 01:06] LABS: Appearance Urine Clear (Clear); Bacteria Urine Automated Negative (Negative); Bilirubin Urine Negative (Negative); Blood Urine Negative (Negative); Color Urine Yellow; Glucose Urine UA Negative (Negative); Ketones Urine 2+ (Negative); Leukocyte Esterase Urine Trace (Negative); Nitrite Urine Negative (Negative); Protein Urine Negative (Negative); RBC Urine Automated 0-4 /hpf (0-4); Specific Gravity Urine 1.018 (1.000-1.030); Urobilinogen Urine Negative (Negative); pH Urine 7.5 (4.5-7.5)
[2023-12-23 02:08] LABS: Magnesium 1.1 mg/dl (1.7-2.4)
--- NOTE | 2023-12-23 02:57 | History & Physical Report ---
Date of Service December 23, 2023 Assessment & Plan (1) Nausea & vomiting: Plan: Possible stomach upset/viral illness Transient encephalopathy secondary to above, patient mentation back to baseline chronic diastolic heart failure (EF 65 to 70%, TTE 2023), patient on the dry side hx CAD status post stent PAF on Eliquis History cardioembolic CVA hypertension, stable hyperlipidemia, on statin Rx DEMARIO on CPAP DM2 on oral medications, well-controlled as of recent hemoglobin A1c of 6.3 last October 2023 hypothyroidism, euthyroid as of recent TSH chronic anemia, hemoglobin better than baseline secondary to hemoconcentration Recurrent admission OBS GMF IVF Hold home diuretic until patient euvolemic ISS BG goal 1 10-1 40, carb count coverage PT OT eval DVT prophylaxis. Eliquis Full code Patient requests for son to be given updates on her progress. Mr. Titus Palacios, contact #[phone]. Text document was generated using [employer] voice recognition software. It may contain grammatical or spelling errors. Kindly contact undersigned for clarification of any documentation item in question. History of Present Illness Chief Complaint: Weakness, nausea, vomiting Primary Care Provider: Dr. Smith History obtained from patient and records. Medical history significant for chronic diastolic heart failure (EF 65 to 70%, TTE 2023), CAD status post stent, PAF on Eliquis, CVA, hypertension, hyperlipidemia, DEMARIO on CPAP, DM2 on oral medications, hypothyroidism, chronic anemia (baseline hemoglobin of 11), GERD, mood disorder. Recent confinement December 03 to 2023 for cardioembolic CVA in the setting of PAF history. Patient discharged to [facility] before she returned home 4 days ago. Patient felt ill after lunch yesterday. Subsequent nausea and bilious emesis without actual abdominal pain. Denies headache, chest pain, SOB. Patient somewhat confused at home. Increased generalized weakness. Patient brought to the ER for evaluation. Patient feels much better after IVF administration at the ER. 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 Verified 11/15/23 13:55 broccoli Allergy Unknown GAS Unverified 11/15/23 13:55 grapefruit Allergy Unknown BRONCHITIS Unverified 11/15/23 13:55 mold Allergy Unknown asthma Verified 11/15/23 13:55 symptoms orange Allergy Unknown BRONCHITIS Unverified 11/15/23 13:55 paroxetine Allergy Unknown ANAPHYLAXIS Unverified 11/15/23 13:55 pollen extracts Allergy Unknown asthma Verified 11/15/23 13:55 symptoms vasquez AdvReac Unknown gas and Verified 12/03/23 06:17 bloating with consuption of green or kidneys beans crab AdvReac Unknown diarrhea Verified 11/15/23 13:55 peanut AdvReac Unknown gas/bloatin Unverified 11/15/23 13:55 g Home Medications Medication Instructions Recorded Confirmed Type atorvastatin 20 mg tablet 20 mg PO HS 08/22/19 12/23/23 History coenzyme Q10 100 mg capsule 100 mg PO QA 08/22/19 12/23/23 History (CoQ-10) cyanocobalamin (vitamin B-12) 1,000 mcg PO HS 08/22/19 12/23/23 History 1,000 mcg capsule dexlansoprazole 60 mg 60 mg PO DAILYBB 08/22/19 12/23/23 History capsule,biphase delayed release (Dexilant) fluticasone propionate 50 2 spray intranasal QAM 08/22/19 12/23/23 History mcg/actuation nasal spray,suspension metformin 850 mg tablet 850 mg PO BIDM 08/22/19 12/23/23 History montelukast 10 mg tablet 10 mg PO HS 08/22/19 12/23/23 History multivitamin 1 tab PO DAILY 08/22/19 12/23/23 History venlafaxine 37.5 mg 37.5 mg PO DAILY 08/24/19 12/23/23 History capsule,extended release 24 hr bimatoprost 0.01 % eye drops 1 drp OPB HS 05/08/22 12/23/23 History (Lumigan) albuterol sulfate 90 mcg/actuation 2 puff inhalation Q4H PRN Wheezing 10/23/23 12/23/23 History aerosol inhaler ascorbic acid (vitamin C) 500 mg 500 mg PO QAM 10/23/23 12/23/23 History tablet aspirin 81 mg tablet,delayed 81 mg PO HS 10/23/23 12/23/23 History release (Ecotrin Low Strength) azelastine 137 mcg (0.1 %) nasal 2 spray intranasal HS 10/23/23 12/23/23 History spray aerosol cholecalciferol (vitamin D3) 25 25 mcg PO QAM 10/23/23 12/23/23 History mcg (1,000 unit) tablet fluticasone 250 mcg-salmeterol 50 1 inh inhalation BID 10/23/23 12/23/23 History mcg/dose blistr powdr for inhalation (Wixela Inhub) magnesium oxide 400 mg (241.3 mg 400 mg PO QAM 10/23/23 12/23/23 History magnesium) tablet oxybutynin chloride 10 mg 10 mg PO QAM 10/23/23 12/23/23 History tablet,extended release 24 hr zinc gluconate 50 mg tablet 50 mg PO QPM 10/23/23 12/23/23 History ketoconazole 2 % topical cream 1 applic topical BID 12/02/23 12/23/23 History levothyroxine 100 mcg tablet 100 mcg PO DAILYBB 12/02/23 12/23/23 History nifedipine 90 mg tablet,extended 90 mg PO QAM 12/02/23 12/23/23 History release 24 hr potassium chloride 10 mEq 20 meq PO BID 12/03/23 12/23/23 History tablet,extended release(part/cryst) (Klor-Con M) apixaban 5 mg tablet (Eliquis) 5 mg PO Q12 12/23/23 12/23/23 History furosemide 20 mg tablet 20 mg PO DAILY 12/23/23 12/23/23 History losartan 50 mg tablet 50 mg PO Q12 12/23/23 12/23/23 History metoprolol succinate 25 mg 25 mg PO Q12 12/23/23 12/23/23 History tablet,extended release 24 hr multivitamin with minerals 1 tab PO DAILY 12/23/23 12/23/23 History Past Med/Surg History Medical History Right rotator cuff tear Right knee DJD CAD (coronary artery disease) stent in 1999 T2DM (type 2 diabetes mellitus) HTN (hypertension) HLD (hyperlipidemia) PAF (paroxysmal atrial fibrillation) DEMARIO (obstructive sleep apnea) Asthma CKD (chronic kidney disease) stage 3, GFR 30-59 ml/min Primary open angle glaucoma GERD (gastroesophageal reflux disease) Hypothyroidism History of placement of stent in LAD coronary artery Sleep apnea Surgical History History of rotator cuff surgery History of cataract extraction History of arthroscopic knee surgery History of tonsillectomy History of appendectomy Stented coronary artery Family History Father CHF (congestive heart failure) Mother Cancer Social History Smoking Status: Never smoker Hx Alcohol Use: No Hx Substance Use: No Preferred Language: Kyrgyz Communication Ability: Effective Counseling Department Chair Required: No Beliefs That Will Affect Care: None marital status: Life Partner Current Living Situation: Significant Other Current Living Situation Comment: s/o Other Information That Helps Us Care for You: No Feels Safe at Home: Yes Safety Concerns: Feels Safe At This Time Assistive Devices: CPAP and Walker Review of Systems Review of Systems: As per HPI, all other systems reviewed and negative Physical Exam Physical Exam: GENERAL: Comfortable, wane, obese, no respiratory distress SKIN: Pallor, warm HEENT: Pale palpebral conjunctivae, no ptosis, dry buccal mucosa NECK : Supple, no tenderness CHEST : Decreased breath sounds, no tenderness HEART : RRR, no obvious murmurs ABDOMEN: Some distention, nontender EXTREMITIES : Minimal LE swelling, no LE tenderness, no other conspicuous deformities noted NEUROLOGIC : Coherent, no facial asymmetry, no other gross focality Results & Data Results & Data Vital Signs (Past 12 Hours) Vital Signs Pulse Pulse Resp BP BP Pulse Ox O2 Del Method 12/23/23 02:28 78 12/23/23 02:14 77 19 140/66 91 Room Air 12/23/23 02:00 77 13 140/66 94 12/23/23 01:58 74 15 95 12/23/23 01:40 74 16 91 12/23/23 01:30 72 16 93 12/23/23 01:20 81 21 91 12/23/23 01:10 71 11 L 97 12/23/23 01:00 75 19 93 12/23/23 00:50 74 15 94 12/23/23 00:40 70 14 97 12/23/23 00:30 76 19 97 12/23/23 00:20 84 17 98 12/23/23 00:10 83 12/23/23 00:03 80 15 97 12/22/23 23:40 79 16 89 L 12/22/23 23:30 69 16 88 L 12/22/23 23:20 83 25 H 95 12/22/23 23:10 68 16 88 L 12/22/23 23:00 83 16 96 12/22/23 22:50 80 25 H 92 12/22/23 22:40 78 18 95 12/22/23 22:30 82 18 12/22/23 22:25 90 12/22/23 22:20 107 H 17 12/22/23 22:15 84 18 12/22/23 22:02 81 13 144/66 H 96 Room Air Laboratory Results Laboratory Results WBC 15.38 K/ul (4.8-10.8) H 12/22/23 22:32 RBC 4.58 M/uL (4.20-5.40) 12/22/23 22:32 Hgb 13.1 g/dl (12.0-16.0) 12/22/23 22:32 Hct 41.1 % (37.0-47.0) 12/22/23 22:32 MCV 89.7 fL (80.0-100.0) 12/22/23 22:32 MCH 28.6 pg (25.0-34.0) 12/22/23 22:32 MCHC 31.9 g/dL (32.0-36.0) L 12/22/23 22:32 RDW Std Deviation 50.1 fL (36.4-46.3) H 12/22/23 22:32 RDW Coeff of Stoney 15.3 % (11.5-14.5) H 12/22/23 22:32 Plt Count 390 K/uL (130-400) 12/22/23 22:32 MPV 11.1 fL (9.4-12.4) 12/22/23 22:32 Immature Gran % (Auto) 0.7 % 12/22/23 22: Neut % (Auto) 85.0 % 12/22/23 22: Lymph % (Auto) 9.9 % 12/22/23 22:32 [place] % (Auto) 3.6 % 12/22/23 22:32 Eos % (Auto) 0.5 % 12/22/23 22:32 Baso % (Auto) 0.3 % 12/22/23 22:32 Neut # (Auto) 13.08 K/uL (1.40-6.50) H 12/22/23 22:32 Lymph # (Auto) 1.53 K/uL (1.20-3.40) 12/22/23 22:32 [place] # (Auto) 0.55 K/uL (0.11-0.59) 12/22/23 22:32 Eos # (Auto) 0.08 K/uL (0.00-0.50) 12/22/23 22:32 Baso # (Auto) 0.04 K/uL (0.00-0.20) 12/22/23 22:32 Immature Gran # (Auto) 0.10 K/uL (0.01-0.20) 12/22/23 22:32 PT 11.4 Seconds (9.0-12.0) 12/22/23 22:32 INR 1.0 (0.9-1.1) 12/22/23 22:32 Sodium 138 mmol/L (136-145) 12/22/23 22:32 Potassium 3.5 mmol/L (3.5-5.1) 12/22/23 22:32 Chloride 100 mmol/L (98-107) 12/22/23 22:32 Carbon Dioxide 25 mmol/L (21-32) 12/22/23 22:32 Anion Gap 13 (3-11) H 12/22/23 22:32 BUN 18 mg/dl (6-23) 12/22/23 22:32 Creatinine 0.74 mg/dl (0.6-1.2) 12/22/23 22:32 Est Cr Clr Drug Dosing 51.9 ml/min 12/22/23 22:32 Est GFR ( Amer) 86.2 ml/min 12/22/23 22:32 Est GFR (Non-Af Amer) 74.4 ml/min 12/22/23 22:32 BUN/Creatinine Ratio 24.3 (10-20) H 12/22/23 22:32 Glucose 223 mg/dl (70-99(Fasting)) H 12/22/23 22:32 Calcium 10.0 mg/dl (8.6-10.3) 12/22/23 22:32 Magnesium 1.1 mg/dl (1.7-2.4) L 12/22/23 22:32 Total Bilirubin 0.3 mg/dl (0.2-1.0) 12/22/23 22:32 AST 12 U/L (13-39) L 12/22/23 22:32 ALT 9 U/L (7-52) 12/22/23 22:32 Alkaline Phosphatase 62 U/L (34-104) 12/22/23 22:32 Troponin I High Sens 7.4 pg/ml (0-14) 12/22/23 22:32 Total Protein 7.4 gm/dl (6.0-8.3) 12/22/23 22:32 Albumin 4.2 gm/dl (3.4-5.0) 12/22/23 22: Globulin 3.2 gm/dl (2.5-4.0) 12/22/23 22: Albumin/Globulin Ratio 1.3 (0.9-2) 12/22/23 22:32 Lipase 10 U/L (11-82) L 12/22/23 22:32 Urine Color Yellow 12/23/23 00:17 Urine Appearance Clear (Clear) 12/23/23 00:17 Urine pH 7.5 (4.5-7.5) 12/23/23 00:17 Ur Specific [place] 1.018 (1.000-1.030) 12/23/23 00:17 Urine Protein Negative (Negative) 12/23/23 00:17 Urine Glucose (UA) Negative (Negative) 12/23/23 00:17 Urine Ketones 2+ (Negative) H 12/23/23 00:17 Urine Blood Negative (Negative) 12/23/23 00:17 Urine Nitrite Negative (Negative) 12/23/23 00:17 Urine Bilirubin Negative (Negative) 12/23/23 00:17 Urine Urobilinogen Negative (Negative) 12/23/23 00:17 Ur Leukocyte Esterase Trace (Negative) H 12/23/23 00:17 Urine WBC (Auto) 1-5 /hpf (0-5) 12/23/23 00:17 Urine RBC (Auto) 0-4 /hpf (0-4) 12/23/23 00:17 U Hyaline Cast (Auto) 1-5 /lpf (0-5) 12/23/23 00:17 U Epithel Cells (Auto) 10-20 /lpf (0-5) H 12/23/23 00:17 Urine Bacteria (Auto) Negative (Negative) 12/23/23 00:17 Adenovirus (PCR) Not Detected (NotDetected) 12/22/23 23:17 B. pertussis DNA (PCR) Not Detected (NotDetected) 12/22/23 23:17 B.parapertussis DNA PCR Not Detected (NotDetected) 12/22/23 23:17 C. pneumoniae DNA (PCR) Not Detected (NotDetected) 12/22/23 23:17 Coronavirus OC43 (PCR) Not Detected (NotDetected) 12/22/23 23:17 Coronavirus HKU1 (PCR) Not Detected (NotDetected) 12/22/23 23:17 Coronavirus 229E (PCR) Not Detected (NotDetected) 12/22/23 23:17 SARS-CoV-2 (PCR) Not Detected (NotDetected) 12/22/23 23:17 Coronavirus NL63 (PCR) Not Detected (NotDetected) 12/22/23 23:17 Human Metapneumovir PCR Not Detected (NotDetected) 12/22/23 23:17 Influenza Type A (PCR) Not Detected (NotDetected) 12/22/23 23:17 Influenza Type B (PCR) Not Detected (NotDetected) 12/22/23 23:17 M. pneumoniae (PCR) Not Detected (NotDetected) 12/22/23 23:17 Parainfluenza 1 (PCR) Not Detected (NotDetected) 12/22/23 23:17 Parainfluenza 2 (PCR) Not Detected (NotDetected) 12/22/23 23:17 Parainfluenza 3 (PCR) Not Detected (NotDetected) 12/22/23 23:17 Parainfluenza 4 (PCR) Not Detected (NotDetected) 12/22/23 23:17 RSV (PCR) Not Detected (NotDetected) 12/22/23 23:17 Entero/Rhino (PCR) Not Detected (NotDetected) 12/22/23 23:17 Impressions Abdomen/Pelvis CT 12/22/23 23:04 Exam(s): CT ABDOMEN + PELVIS With Contrast IV Amt: 65 ML OPTIRAY 320 EXAM: CT Abdomen and Pelvis With Intravenous Contrast CLINICAL HISTORY: Reason for exam: N/v. TECHNIQUE: Axial computed tomography images of the abdomen and pelvis with intravenous contrast. Automated exposure control was utilized for the study. A dose lowering technique was utilized adhering to the principles of ALARA. CONTRAST: Patient received 65 ML OPTIRAY 320 of IV contrast COMPARISON: 07/09/2021 FINDINGS: Lung bases: Unremarkable. No mass. No consolidation. Heart: Cardiomegaly. Mediastinum: Large esophageal hiatal hernia. ABDOMEN: Liver: Unremarkable. No mass. Gallbladder and bile ducts: Unremarkable. No calcified stones. No ductal dilation. Pancreas: Unremarkable. No mass. No ductal dilation. Spleen: Unremarkable. No splenomegaly. Adrenals: Unremarkable. No mass. Kidneys and ureters: Simple left renal cyst. No follow-up of this simple cyst is necessary. No hydronephrosis. Stomach and bowel: Large amount of stool within the rectum. Diverticulosis without evidence of diverticulitis. Diverticulosis without evident diverticulitis. Large esophageal hiatal hernia Esophageal PELVIS: Appendix: Postoperative changes prior appendectomy. Bladder: Unremarkable. No mass. Reproductive: Unremarkable as visualized. ABDOMEN and PELVIS: Intraperitoneal space: Unremarkable. No free air. No significant fluid collection. Bones/joints: No acute fracture. No dislocation. Soft tissues: Unremarkable. Vasculature: Unremarkable. No abdominal aortic aneurysm. Lymph nodes: Unremarkable. No enlarged lymph nodes. IMPRESSION: Large esophageal hiatal hernia. Electronically signed by: Bowen Mendes MD 12/23/23 00:27 AM Diagnostic Findings EKG as per my interpretation :Rate 80, NSR, LAD, LAFB, LVH, no ischemia (1) Nausea & vomiting Vomiting type: unspecified Qualified Code(s): R11.2 - Nausea with vomiting, unspecified
[2023-12-23] MEDS ORDERED: PROMETHAZINE HCL 6.25 MG in SODIUM CHLORIDE 0.9% 50 ML IV PRN (03:02)
[2023-12-23] MEDS ORDERED: NSS + 20MEQ KCL 20 MEQ/1,000 ML BAG IV ONE (03:15)
--- OUTSIDE RECORDS SUMMARY | 2023-12-23 04:33 | External Medical Summary | Summary of Care ---
Author Name Unknown Organization [facility] Address [address] [place] [address] Phone [phone] Care Team Providers Care Front End Mechanic Name Role Phone Linda Smith MD Primary Care Provide r Reason for Visit * Reason Onset Date Comments Advice 12/16/2023 [facility] D C APPT Encounter Details Date Type Department Care Team (Late st Contact Info) Description 12/16/2023 Telephone Family Medicine [address] [phone] Kumar Salinas MD [address] [place] [address] [place] [address] Advice ([facility] DC APPT) Allergies Active Allergy Reactions Criticality Noted Date Comments Crab (Diagnostic) 04/05/2018 Food (See Comments) 07/24/2015 Broccoli, beans, cauliflower - cause gas Grapefruit, oranges - cause bronchitis - positive skin test Paroxetine Hydrochloride 04/03/2009 Penicillins 04/03/2009 Blisters on hands Peanut-Containing Drug Products Abdominal pain Medium 07/24/2015 Gas, bloating documented as of this encounter (statuses as of 12/22/2023) Medications Medication Sig Dispensed Refills Start Date [...] TWICE A DAY 0 05/18/2022 Active Nystatin 443553 UNIT/GM External CreamIndications:Can dida infection Apply to affected area 2-3 times daily for 5 days 45 g 1 09/17/2022 Active Nystatin 058915 UNIT/GM External Powder (Nystop)Indications: Brunilda infection Apply [...] fibrillation (HCC),Dyslipidemia, goal LDL below 100,Atherosclerosis of [place] coronary artery of [place] heart without angina pectoris TAKE ONE PILL BY MOUTH AT BEDTIME 90 Tablet 1 06/13/2023 Active metFORMIN HCl 850 MG Oral Tablet (Glucophage)Indicati ons:Type 2 diabetes mellitus with hemoglobin A1c goal of less than 7.0% ([facility]) TAKE 1 TABLET BY MOUTH TWICE A [...] 25 MG Oral Tablet (Lopressor)Indicatio ns:Atherosclerosis of [place] coronary artery of [place] heart without angina pectoris,Paroxysmal atrial fibrillation (HCC),Essential [...] as of this encounter (statuses as of 12/22/2023) Active Problems Problem Noted Date Diagnosed Date [...] ase with esophagitis 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 Atherosclerosis of [place] co ronary artery of [place] heart without angina pectoris Adjustment disorder with depressed mood documented as of this encounter (statuses as of 12/22/2023) Resolved Problems Problem Noted Date Diagnosed Date [...] persistent 09/23/2012 09/23/2012 Genetic Sleep Disorder [facility] Other*[id number] 09/12/2012 06/25/2016 Obesity, Class II, BMI 35-39 [...] as of this encounter (statuses as of 12/22/2023) Immunizations Name Administration Dates Next Due COVID-19 [...] encounter Miscellaneous Notes * Telephone Encounter - Brooke Shelton OSA - 12/22/2023 10:34 AM EST Appt is scheduled with Dr. Salinas on 01/03/24 for Hospital Discharge. She is already scheduled with Dr. Smith in January to establish. * Telephone Encounter - Marylin Gruber RN - 12/21/2023 4:08 PM EST Please call and schedule first available Hospital Discharge for this patient, Dr Salinas will be hereon Mondays starting 01-03-24. He could see this. HOWEVER, please advise pt that he can not continue to be her PCP, since he is just helping out now, she lucero need to establish with a new doctor for a few months down the road * Telephone Encounter - Anupama Spencer OSA - 12/20/2023 2:01 PM EST Patient is calling in to try and schedule her appointment for her Hospital Discharge. However, there are no appointments available in the 5-7 day range as well as Dr. Salinas has retired and is no longer able to be her PCP. Please contact patient to discuss and advise. * Telephone Encounter - Celi Montes OSA - 12/16/2023 11:02 AM EST Sandra holland SAID PT NEEDS A dc APPT / PT BEING DC on 12-18-23 from [facility] documented in this encounter Plan of Treatment Upcoming Encounters Date Type Department Care Team (Late st Contact Info) Description 01/03/2024 3:20 PM EST Office Visit Family Medicine [address] [phone] Kumar Salinas MD [address] [place] [address] [place] [phone] 01/10/2024 11:20 AM EST Office Visit Neurology [facility] [address] [facility] [place] [address] Emelia Robles PA-C [address] [place] [address] 01/10/2024 1:00 PM EST Office Visit Cardiology, [facility] [address] [place] [address] Chace Peacock, [address] [place] [address] 02/23/2024 2:00 PM EDT Office Visit Family Medicine [address] [place] [address] [place] [phone] Linda Smith MD [address] [place] [address] [place] [phone] Health Maintenance Due Date Last Done Comments Zoster Vaccines (1 of 2) 1989 Hepatitis B (1 of 3 - Risk 3-dose series) 1999 Depression Screening 04/29/2021 04/29/2020 Influenza Vaccine (FLU shot) (#1) 2023 09/17/2022, 10/17/2021, 08/13/2020, Additional history exists Diabetic Foot Exam 04/28/2024 04/28/2023, 0 03/12/2022, 04/01/2021, Additional history exists HbA1c 05/18/2024 11/17/2023, 03/31, 11/17/2022, Additional history exists Diabetic Eye Exam 09/03/2024 09/03/2023, , 10/26/2022, Additional history exists Albumin/Creatinine Ratio 11/17/2024 023, 11/17/2022, 11/13/2021, Additional history exists TSH 12/14/2024 12/14/2023, 03/31, 05/14/2022, Additional history exists GFR 12/17/2024 12/17/2023, 11/29, 11/10/2023, Additional history exists DXA Scan 05/31/2026 05/31/2019, [...] filedocumented as of this encounter Care Teams Front End Mechanic Relationship Specialty Start Date End Date Linda Smith MD [address] [place] [address] [place] [id number] PCP - General Family Medicine 12/22/23 documented as of this encounter
--- OUTSIDE RECORDS SUMMARY | 2023-12-23 04:33 | External Medical Summary | Summary of Care ---
Author Name Unknown Organization [facility] Address [address] [place] [address] Phone [phone] Care Team Providers Care Lawn Mower Operator Name Role Phone Kumar Salinas MD Primary Care Provider Reason for Visit * Reason Onset Date Comments FYI 12/20/2023 Mary Grace with [facility] calling to they will be faxing over a plan of care for patient any questions call [phone] Encounter Details Date Type Department Care Team (Late st Contact Info) Description 12/20/2023 Telephone Family Medicine [address] [address] Kumar Salinas MD [address] [place] [address] [place] [address] FYI (Mary Grace with [facility] callin... Allergies Active Allergy Reactions Criticality Noted Date Comments Crab (Diagnostic) 04/05/2018 Food (See Comments) 07/24/2015 Broccoli, beans, cauliflower - cause gas Grapefruit, oranges - cause bronchitis - positive skin test Paroxetine Hydrochloride 04/03/2009 Penicillins 04/03/2009 Blisters on hands Peanut-Containing Drug Products Abdominal pain Medium 07/24/2015 Gas, bloating documented as of this encounter (statuses as of 12/21/2023) Medications Medication Sig Dispensed Refills Start Date [...] TWICE A DAY 0 05/18/2022 Active Nystatin 688689 UNIT/GM External CreamIndications:Can dida infection Apply to affected area 2-3 times daily for 5 days 45 g 1 09/17/2022 Active Nystatin 899934 UNIT/GM External Powder (Nystop)Indications: Brunilda infection Apply [...] fibrillation (HCC),Dyslipidemia, goal LDL below 100,Atherosclerosis of [place] coronary artery of [place] heart without angina pectoris TAKE ONE PILL [...] 25 MG Oral Tablet (Lopressor)Indicatio ns:Atherosclerosis of [place] coronary artery of [place] heart without angina pectoris,Paroxysmal atrial fibrillation (HCC),Essential [...] the morning. 90 Tablet 1 11/17/2023 Active Apixaban 5 MG Oral Tablet (Eliquis) Take 1 Tablet by mouth in the morning and 1 Tablet before bedtime. 60 Tablet 0 12/20/2023 Active documented as of this encounter (statuses as of 12/21/2023) Active Problems Problem Noted Date Diagnosed Date [...] ase with esophagitis 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 Atherosclerosis of [place] co ronary artery of [place] heart without angina pectoris Adjustment disorder with depressed mood documented as of this encounter (statuses as of 12/21/2023) Resolved Problems Problem Noted Date Diagnosed Date [...] persistent 09/23/2012 09/23/2012 Genetic Sleep Disorder Resea [facility] Other*[id number] 09/12/2012 06/25/2016 Obesity, Class II, BMI 35-39 [...] as of this encounter (statuses as of 12/21/2023) Immunizations Name Administration Dates Next Due COVID-19 mRNA, LNP-s, No Pre serve, 2-Dose Series (Moderna) 03/15/2021,02/16/2021 COVID-19, MRNA-LNP, 23-24, P F, 30 MCG/0.3 mL, 12 YRS AND ABOVE, IM [facility] 11/17/2023 COVID-19, mRNA, LNP-s, PF, B ooster, [...] encounter Miscellaneous Notes * Telephone Encounter - Janeen Read OSA - 12/20/2023 2:49 PM EST Mary Grace with [facility] calling to they will be faxing over a plan of care for patient any questions call [phone] documented in this encounter Plan of Treatment Upcoming Encounters Date Type Department Care Team (Late st Contact Info) Description 01/10/2024 11:20 AM EST Office Visit Neurology [facility] [address] [place] [address] Emelia Robles PA-C [address] [facility] [place] [address] 01/10/2024 1:00 PM EST Office Visit Cardiology, [facility] [address] [place] [address] Chace Peacock DO [address] [address] 02/23/2024 2:00 PM EDT Office Visit Family Medicine [address] [place] [address] Linda Smith MD [address] [place] [address] [place] [address] Health Maintenance Due Date Last Done Comments [...] filedocumented as of this encounter Care Teams Lawn Mower Operator Relationship Specialty Start Date End Date Kumar Salinas MD [address] [place] [address] [place] [phone] PCP - General 04/03/09 12/20/23 documented as of this encounter
--- OUTSIDE RECORDS SUMMARY | 2023-12-23 04:33 | External Medical Summary | Summary of Care ---
Author Name Unknown Organization [facility] Address [address] [place] [address] Phone [phone] Care Team Providers Care Park Interpretive Specialist Name Role Phone Kumar Salinas MD Primary Care Provider Reason for Visit * Reason Onset Date Comments Med Request 12/20/2023 Encounter Details Date Type Department Care Team (Late st Contact Info) Description 12/20/2023 Telephone Cardiology, [facility] [address] [facility] [place] [address] Chace Peacock, [address] [place] [address] Med Request Allergies Active Allergy Reactions Criticality Noted Date [...] type 2, 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% ([facility]) TEST BLOOD SUGAR ONCE DAILY DIRECTED [...] TWICE A DAY 0 05/18/2022 Active Nystatin 509640 UNIT/GM External CreamIndications:Can dida infection Apply to affected area 2-3 times daily for 5 days 45 g 1 09/17/2022 Active Nystatin 817443 UNIT/GM External Powder (Nystop)Indications: Brunilda infection Apply [...] fibrillation (HCC),Dyslipidemia, goal LDL below 100,Atherosclerosis of [place] coronary artery of [place] heart without angina pectoris TAKE ONE PILL BY MOUTH AT BEDTIME 90 Tablet 1 06/13/2023 Active metFORMIN HCl 850 MG Oral Tablet (Glucophage)Indicati ons:Type 2 diabetes mellitus with hemoglobin A1c goal of less than 7.0% ([facility]) TAKE 1 TABLET BY MOUTH TWICE [...] 25 MG Oral Tablet (Lopressor)Indicatio ns:Atherosclerosis of [place] coronary artery of [place] heart without angina pectoris,Paroxysmal atrial fibrillation (HCC),Essential [...] 11/21/2012 Overview: 11/21/12 -- BIPAP set at 14/11 08/2012 -- start auto BIPAP DME - Rashida ADVANCE DIRECTIVE INFORMATION 06/11/2011 Overview: No, Advance Directive brochure given to patient. - mailed 06/11/2011 Primary hypertension 10/17/2009 Overview: Modified per HTN protocol #16. Acquired hypothyroidism Gastroesophageal reflux dise ase with esophagitis 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 Atherosclerosis of [place] co ronary artery of [place] heart without angina pectoris Adjustment disorder with [...] persistent 09/23/2012 09/23/2012 Genetic Sleep Disorder Resea [facility] Other*[id number] 09/12/2012 06/25/2016 Obesity, Class II, BMI 35-39 [...] MCG/0.3 mL, 12 YRS AND ABOVE, IM ([facility]) 11/17/2023 COVID-19, mRNA, LNP-s, PF, B ooster, [...] encounter Miscellaneous Notes * Telephone Encounter - Toyin Butler OSA - 12/21/2023 9:03 AM EST Called Pt o schedule, no answer, left deyailed message on Pt's identified VM. * Telephone Encounter - Kyler Villa RN - 12/20/2023 1:48 PM EST Patient notified that short term script sent to her pharmacy in [place] for the eliquis. * Addendum Note - Jakob Edward CRNP - 12/20/2023 1:15 PM ESTAddended by: JAOKB EDWARD on: 12/20/2023 01:15 PM Modules accepted: Orders * Telephone Encounter - Jakob Edward CRNP - 12/20/2023 1:12 PM EST Chart reviewed in coverage of Dr. 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 Will give short supply- however, patient will need to follow up with cardiology for refills, known to Dr. Peacock. Please assist with an appt. CELESTE [place] * Telephone Encounter - Araseli Mclean OSA - 12/20/2023 10:13 AM EST Person calling: Yudelka Relationship to patient: self Number to return call: [phone] Reason for call: Cardio Please refill her prescription eliquis for this evening or she will "be in trouble". She was discharged from [facility] on Wednesday morning with a small supply and will be out today. [facility] Provider Name:Metal Bonding Press Operator = Ayush * Telephone Encounter - Olga Dykes PHARM Tech - 12/20/2023 10:00 AM EST Pt called and was transferred to the specialty line Thank you, Olga Dykes CPhT Web Press Operator Helper Offset II [facility] ([facility]) (formerly Telepharmacy) 12/20/2023,10:01 AM documented in this encounter Plan of Treatment Upcoming Encounters Date Type Department Care Team (Late st Contact Info) Description 01/10/2024 11:20 AM EST Office Visit Neurology [facility] [address] [facility] [place] [address] Emelia Robles PA-C [address] [facility] [place] [address] 01/10/2024 1:00 PM EST Office Visit Cardiology, [facility] [address] [place] [address] Chace Peacock DO [address] [place] [address] 02/23/2024 2:00 PM EDT Office Visit Family [address] [address] Linda Smith MD [address] [place] [address] [place] [address] Health Maintenance Due Date [...] , 10/26/2022, Additional history exists Albumin/Creatinine Ratio 11/17/20242 023, 11/17/2022, 11/13/2021, Additional history exists TSH [...] filedocumented as of this encounter Care Teams Park Interpretive Specialist Relationship Specialty Start Date End Date Kumar Salinas MD [address] [place] [address] [place] [phone] PCP - General 04/03/09 documented as of this encounter
--- OUTSIDE RECORDS SUMMARY | 2023-12-23 04:33 | External Medical Summary | Summary of Care ---
Author Name Unknown Organization [facility] Address [address] [place] [address] Phone [phone] Care Team Providers Care Roller Helper Name Role Phone Kumar Salinas MD Primary Care Provider Reason for Visit * Reason Onset Date Comments Med Request 12/20/2023 Encounter Details Date Type Department Care Team (Late st Contact Info) Description 12/20/2023 Telephone Cardiology, [facility] [address] [facility] [place] [address] Chace Peacock, [address] [place] [address] Med Request Allergies Active Allergy Reactions Criticality Noted Date Comments Crab (Diagnostic) 04/05/2018 Food (See Comments) 07/24/2015 Broccoli, beans, cauliflower - cause gas Grapefruit, oranges - cause bronchitis - positive skin test Paroxetine Hydrochloride 04/03/2009 Penicillins 04/03/2009 Blisters on hands Peanut-Containing Drug Products Abdominal pain Medium 07/24/2015 Gas, bloating documented as of this encounter (statuses as of 12/20/2023) Medications Medication Sig Dispensed Refills Start Date [...] type 2, 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% ([facility]) TEST BLOOD SUGAR ONCE [...] TWICE A DAY 0 05/18/2022 Active Nystatin 713611 UNIT/GM External CreamIndications:Can dida infection Apply to affected area 2-3 times daily for 5 days 45 g 1 09/17/2022 Active Nystatin 654145 UNIT/GM External Powder (Nystop)Indications: Brunilda infection Apply [...] fibrillation (HCC),Dyslipidemia, goal LDL below 100,Atherosclerosis of [place] coronary artery of [place] heart without angina pectoris TAKE ONE PILL BY MOUTH AT BEDTIME 90 Tablet 1 06/13/2023 Active metFORMIN HCl 850 MG Oral Tablet (Glucophage)Indicati ons:Type 2 diabetes mellitus with hemoglobin A1c goal of less than 7.0% ([facility]) TAKE 1 TABLET BY [...] 25 MG Oral Tablet (Lopressor)Indicatio ns:Atherosclerosis of [place] coronary artery of [place] heart without angina pectoris,Paroxysmal atrial fibrillation (HCC),Essential [...] as of this encounter (statuses as of 12/20/2023) Active Problems Problem Noted Date Diagnosed Date [...] ase with esophagitis 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 Atherosclerosis of [place] co ronary artery of [place] heart without angina pectoris Adjustment disorder with depressed mood documented as of this encounter (statuses as of 12/20/2023) Resolved Problems Problem Noted Date Diagnosed Date [...] persistent 09/23/2012 09/23/2012 Genetic Sleep Disorder Resea [facility] Other*[id number] 09/12/2012 06/25/2016 Obesity, Class II, BMI 35-39 [...] as of this encounter (statuses as of 12/20/2023) Immunizations Name Administration Dates Next Due COVID-19 mRNA, LNP-s, No Pre serve, 2-Dose Series (Moderna) 03/15/2021,02/16/2021 COVID-19, MRNA-LNP, 23-24, P F, 30 MCG/0.3 mL, 12 YRS AND ABOVE, IM ([facility]) 11/17/2023 COVID-19, mRNA, LNP-s, PF, B ooster, [...] encounter Miscellaneous Notes * Telephone Encounter - Kyler Villa RN - 12/20/2023 1:48 PM EST Patient notified that short term script sent to her pharmacy in [place] for the eliquis. * Addendum Note - Jakob Edward CRNP - 12/20/2023 1:15 PM ESTAddended by: JAKOB EDWARD on: 12/20/2023 01:15 PM Modules accepted: Orders * Telephone Encounter - Jakob Edward CRNP - 12/20/2023 1:12 PM EST Chart reviewed in coverage of Dr. Peacock Looks like patient was admitted to [facility] 12/03/2023--12/09/2023 due to embolic CVA with history [...] to patient: self Number to return call: [phone] Reason for call: Cardio Please refill her prescription eliquis for this evening or she will "be in trouble". She was discharged from [facility] on Wednesday morning with a small supply and will be out today. [facility]: [facility] Provider Name:Senior Data Warehouse Architect = Ayush * Telephone Encounter - Olga Dykes PHARM Tech - 12/20/2023 10:00 AM EST Pt called and was transferred to the specialty line Thank you, Olga Dykes,[facility] Plate Driller II [facility] ([facility]) (formerly Telepharmacy) 12/20/2023,10:01 AM documented in this encounter Plan of Treatment Upcoming Encounters Date Type Department Care Team (Late st Contact Info) Description 01/10/2024 11:20 AM EST Office Visit Neurology [facility] [address] [facility] [place] [address] Emelia Robles PA-C [address] [facility] [place] [address] 01/10/2024 1:00 PM EST Office Visit Cardiology, [facility] [address] [facility] [place] [address] Chace Peacock, [address] [place] [address] 02/23/2024 2:00 PM EDT Office Visit Family Medicine [address] [place] [phone] Linda Smith MD [address] [place] [address] [place] [address] Health Maintenance Due Date Last Done Comments [...] filedocumented as of this encounter Care Teams Roller Helper Relationship Specialty Start Date End Date Kumar Salinas MD [address] [place] [address] [place] [address] PCP - General 04/03/09 documented as of this encounter
--- OUTSIDE RECORDS SUMMARY | 2023-12-23 04:34 | External Medical Summary ---
Author Name Unknown Address Unknown Organization K01:[facility] [address] [facility] [address] [place] [address] Laboratory Report Ordering Provider Test Date Status MARTÍNIONAFRANKYPRICE 12/14/2023 06:00:00 Final Observation Date Value Abnormality Reference (Units ) Status TSH 12/14/2023 06:00:00 1.09 0.27-4.20 (uIU/mL) Final Performing Location [facility] [address] [place] [address]
--- OUTSIDE RECORDS SUMMARY | 2023-12-23 04:34 | External Medical Summary ---
Author Name Unknown Address Unknown Organization K09:[facility] [place] [address] Laboratory Report Ordering Provider Test Date Status PAUL BROOKS 12/17/2023 06:59:00 Final Observation Date Value Abnormality Reference (Units ) Status BUN 12/17/2023 06:59:00 16 6-20 (mg/dL) Final Creatinine 12/17/2023 06:59:00 0.7 0.5-1.0 (mg/dL) Final Glomerular filtration rate/1.73 sq M.predicted [Volume Rate/Area] in Serum, Plasma or Blood by Creatinine-based formula (CKD-EPI) 12/17/2023 06:59:00 84 >=60 (mL/min) Final eGFR is calculated based on the CKD-EPI 2020 equation SODIUM 12/17/2023 06:59:00 139 135-146 (m mol/L) Final Potassium 12/17/2023 06:59:00 4.7 3.5-5.1 (m mol/L) Final Cl 12/17/2023 06:59:00 98 98-107 (mm ol/L) Final CO2 12/17/2023 06:59:00 31 22-32 (mmo l/L) Final Anion gap 12/17/2023 06:59:00 10 7-15 (mmol /L) Final Glucose 12/17/2023 06:59:00 112 70-120 (mg /dL) Final Calcium 12/17/2023 06:59:00 9.3 8.4-10.2 ( mg/dL) Final Performing Location [facility] [place] [address]
--- OUTSIDE RECORDS SUMMARY | 2023-12-23 04:34 | External Medical Summary ---
Author Name Unknown Address Unknown Organization K09:[facility] [place] [address] Laboratory Report Ordering Provider Test Date Status PAUL BROOKS 12/10/2023 06:50:00 Final Observation Date Value Abnormality Reference (Units ) Status BUN 12/10/2023 06:50:00 18 6-20 (mg/dL) Final Creatinine 12/10/2023 06:50:00 0.6 0.5-1.0 (mg/dL) Final Glomerular filtration rate/1.73 sq M.predicted [Volume Rate/Area] in Serum, Plasma or Blood by Creatinine-based formula (CKD-EPI) 12/10/2023 06:50:00 87 >=60 (mL/min) Final eGFR is calculated based on the CKD-EPI 2020 equation SODIUM 12/10/2023 06:50:00 137 135-146 (m mol/L) Final Potassium 12/10/2023 06:50:00 4.4 3.5-5.1 (m mol/L) Final Cl 12/10/2023 06:50:00 102 98-107 (mm ol/L) Final CO2 12/10/2023 06:50:00 24 22-32 (mmo l/L) Final Anion gap 12/10/2023 06:50:00 11 7-15 (mmol /L) Final Glucose 12/10/2023 06:50:00 130 Above high normal 70 -120 (mg/dL) Final Calcium 12/10/2023 06:50:00 9.6 8.4-10.2 ( mg/dL) Final Performing Location [facility] [place] [address]
--- OUTSIDE RECORDS SUMMARY | 2023-12-23 04:34 | External Medical Summary | Summary of Care ---
Author Name Unknown Organization [facility] Address [address] [place] [address] Phone [phone] Care Team Providers Care Sap Basis Consultant Name Role Phone Kumar Salinas MD Primary Care Provider Reason for Visit * Reason Onset Date Comments Med Request 12/20/2023 Encounter Details Date Type Department Care Team (Late st Contact Info) Description 12/20/2023 Telephone Cardiology, [facility] [address] [facility] [place] [address] Chace Peacock, [address] [facility] [place] [address] Med Request Allergies Active Allergy Reactions Criticality [...] TWICE A DAY 0 05/18/2022 Active Nystatin 388060 UNIT/GM External CreamIndications:Can dida infection Apply to affected area 2-3 times daily for 5 days 45 g 1 09/17/2022 Active Nystatin 383037 UNIT/GM External Powder (Nystop)Indications: Brunilda infection Apply [...] fibrillation (HCC),Dyslipidemia, goal LDL below 100,Atherosclerosis of [place] coronary artery of [place] heart without angina pectoris TAKE ONE PILL BY MOUTH AT BEDTIME 90 Tablet 1 06/13/2023 Active metFORMIN HCl 850 MG Oral Tablet (Glucophage)Indicati ons:Type 2 diabetes mellitus with hemoglobin A1c goal of less than 7.0% ([facility]) TAKE 1 TABLET BY MOUTH TWICE [...] 25 MG Oral Tablet (Lopressor)Indicatio ns:Atherosclerosis of [place] coronary artery of [place] heart without angina pectoris,Paroxysmal atrial fibrillation (HCC),Essential [...] ase with esophagitis 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 Atherosclerosis of [place] co ronary artery of [place] heart without angina pectoris Adjustment disorder with [...] persistent 09/23/2012 09/23/2012 Genetic Sleep Disorder Resea [facility] Other*[id number] 09/12/2012 06/25/2016 Obesity, Class II, BMI 35-39 [...] MCG/0.3 mL, 12 YRS AND ABOVE, IM ([facility]) 11/17/2023 COVID-19, mRNA, LNP-s, PF, B ooster, [...] encounter Miscellaneous Notes * Telephone Encounter - Olga Dykes PHARM Tech - 12/20/2023 10:00 AM EST Pt called and was transferred to the specialty line Thank you, Olga Dykes CPhT Welder Plasma Arc II [facility] ([facility]) (formerly Telepharmacy) 12/20/2023,10:01 AM documented in this encounter Plan of Treatment Upcoming Encounters Date Type Department Care Team (Late st Contact Info) Description 01/10/2024 11:20 AM EST Office Visit Neurology [facility] [address] [place] [address] Emelia Robles PA-C [address] [place] [address] 02/23/2024 2:00 PM EDT Office Visit Family Medicine [address] [phone] Linda Smith MD [address] [place] [address] [place] [address] Health Maintenance Due Date Last Done Comments [...] filedocumented as of this encounter Care Teams Sap Basis Consultant Relationship Specialty Start Date End Date Kumar Salinas MD [address] [place] [address] [place] [address] PCP - General 04/03/09 documented as of this encounter
--- OUTSIDE RECORDS SUMMARY | 2023-12-23 04:34 | External Medical Summary | Summary of Care ---
Author Name Unknown Organization [facility] Address [address] [place] [address] Phone [phone] Care Team Providers Care Roller Skates Assembler Name Role Phone Kumar Salinas MD Primary Care Provider Reason for Visit * Reason Onset Date Comments Med Request 12/20/2023 Encounter Details Date Type Department Care Team (Late st Contact Info) Description 12/20/2023 Telephone Cardiology, [facility] [address] [facility] [place] [address] Chace Peacock, [address] [place] [address] Med Request Allergies Active Allergy Reactions Criticality [...] 30GIndications:DM type 2, 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% ([facility]) TEST BLOOD SUGAR ONCE DAILY [...] TWICE A DAY 0 05/18/2022 Active Nystatin 721893 UNIT/GM External CreamIndications:Can dida infection Apply to affected area 2-3 times daily for 5 days 45 g 1 09/17/2022 Active Nystatin 900693 UNIT/GM External Powder (Nystop)Indications: Brunilda infection Apply [...] fibrillation (HCC),Dyslipidemia, goal LDL below 100,Atherosclerosis of [place] coronary artery of [place] heart without angina pectoris TAKE ONE PILL BY MOUTH AT BEDTIME 90 Tablet 1 06/13/2023 Active metFORMIN HCl 850 MG Oral Tablet (Glucophage)Indicati ons:Type 2 diabetes mellitus with hemoglobin A1c goal of less than 7.0% ([facility]) TAKE 1 TABLET BY MOUTH [...] 25 MG Oral Tablet (Lopressor)Indicatio ns:Atherosclerosis of [place] coronary artery of [place] heart without angina pectoris,Paroxysmal atrial fibrillation (HCC),Essential [...] ase with esophagitis 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 Atherosclerosis of [place] co ronary artery of [place] heart without angina pectoris Adjustment disorder with [...] persistent 09/23/2012 09/23/2012 Genetic Sleep Disorder Resea [facility] Other*[id number] 09/12/2012 06/25/2016 Obesity, Class II, BMI 35-39 [...] MCG/0.3 mL, 12 YRS AND ABOVE, IM ([employer]) 11/17/2023 COVID-19, mRNA, LNP-s, PF, B ooster, [...] as of this encounter Miscellaneous Notes * Addendum Note - Jakob Edward CRNP - 12/20/2023 1:15 PM ESTAddended by: JAKOB EDWARD on: 12/20/2023 01:15 PM Modules accepted: Orders * Telephone Encounter - Jakob Edward CRNP - 12/20/2023 1:12 PM EST Chart reviewed in coverage of Dr. Peacock Looks like patient was admitted to [facility] 12/03/2023--12/09/2023 due to embolic CVA [...] to patient: self Number to return call: [phone] Reason for call: Cardio Please refill her prescription eliquis for this evening or she will "be in trouble". She was discharged from [facility] on Wednesday morning with a small supply and will be out today. [facility] Provider Name:Director Of Exhibit Development = Ayush * Telephone Encounter - Olga Dykes PHARM Tech - 12/20/2023 10:00 AM EST Pt called and was transferred to the specialty line Thank you, Olga Dykes CPhT Social Media Project Manager II [facility] ([facility]) (formerly Telepharmacy) 12/20/2023,10:01 AM documented in this encounter Plan of Treatment Upcoming Encounters Date Type Department Care Team (Late st Contact Info) Description 01/10/2024 11:20 AM EST Office Visit Neurology [facility] [place] [address] [place] [address] Emelia Robles PA-C 200 [facility] [place] [address] 02/23/2024 2:00 PM EDT Office Visit Family Medicine [address] [phone] Linda Smith MD [address] [place] [address] [place] [address] Health Maintenance Due Date Last Done Comments Zoster Vaccines (1 of 2) 1989 Hepatitis B (1 of 3 - Risk 3-dose series) 1999 Depression Screening 04/29/2021 04/29/2020 Influenza Vaccine (FLU shot) (#1) 2023 09/17/2022, 10/17/2021, 08/13/2020, Additional history exists Diabetic Foot Exam 04/28/2024 04/28/2023, 0 03/12/2022, 04/01/2021, Additional history exists HbA1c 05/18/2024 11/17/2023, 05/11/2022, 11/17/2022, Additional history exists Diabetic Eye Exam [...] as of this encounter Care Teams Roller Skates Assembler Relationship Specialty Start Date End Date Kumar Salinas MD [address] [place] [address] [place] [phone] PCP - General 04/03/09 documented as of this encounter
--- OUTSIDE RECORDS SUMMARY | 2023-12-23 04:34 | External Medical Summary | Summary of Care ---
Author Name Unknown Organization [facility] Address [address] [place] [address] Phone [phone] Care Team Providers Care Seo Specialist Name Role Phone Kumar Salinas MD Primary Care Provider Reason for Visit * Reason Onset Date Comments Home Health 11/08/2023 Encounter Details Date Type Department Care Team (Late st Contact Info) Description 11/08/2023 Telephone Family Medicine [address] [phone] Kumar Salinas MD [address] [place] [address] [place] [address] Home Health Allergies Active Allergy Reactions Criticality Noted Date Comments Crab (Diagnostic) 04/05/2018 Food (See Comments) 07/24/2015 Broccoli, beans, cauliflower - cause gas Grapefruit, oranges - cause bronchitis - positive skin test Paroxetine Hydrochloride 04/03/2009 Penicillins 04/03/2009 Blisters on hands Peanut-Containing Drug Products Abdominal pain Medium 07/24/2015 Gas, bloating documented as of this encounter (statuses as of 12/14/2023) Medications Medication Sig Dispensed Refills Start Date [...] < 7.5% ([facility]) TEST BLOOD SUGAR ONCE DAILY DIRECTED DX [...] TWICE A DAY 0 05/18/2022 Active Nystatin 156282 UNIT/GM External CreamIndications:C andida infection Apply to affected area 2-3 times daily for 5 days 45 g 1 09/17/2022 Active Nystatin 390641 UNIT/GM External Powder (Nystop)Indication s:Brunilda infection Apply [...] , goal LDL below 100,Atherosclerosi s of [place] coronary artery of [place] heart without angina pectoris TAKE ONE PILL BY MOUTH AT BEDTIME 90 Tablet 1 06/13/2023 Active metFORMIN HCl 850 MG Oral Tablet (Glucophage)Indica tions:Type 2 diabetes mellitus with hemoglobin A1c goal of less than 7.0% ([facility]) TAKE 1 TABLET BY MOUTH TWICE A [...] MG Oral Tablet (Lopressor)Indicat ions:Atheroscleros is of [place] coronary artery of [place] heart without angina pectoris,Paroxysma l atrial fibrillation (HCC),Essential hypertension with goal blood pressure less than 140/90 TAKE 1 TABLET BY MOUTH TWICE A DAY 180 Tablet 1 11/01/2023 Active Ferrous Sulfate 325 (65 Fe) MG Oral Tablet (Feosol)Indication s:Iron deficiency anemia, unspecified iron deficiency anemia type TAKE 1 TABLET BY MOUTH TWICE A DAY 180 Tablet 3 09/05/2022 3 Discontinue d(Medicatio n List Clean Up) Levothyroxine Sodium 100 MCG Oral Tablet (Levoxyl) TAKE 1 TABLET BY MOUTH DAILY AT LEAST 30 MINUTES PRIOR TO BREAKFAST OR OTHER MEDICATION 90 Tablet 1 05/12/2023 3 Discontinue d(Refill) HYDROcodone-Acetam inophen 5-325 MG Oral TabletIndications: Arthralgia of shoulder, unspecified laterality Take 1 Tablet by mouth every 6 hours as needed for Pain, Mild. 10 Tablet 0 05/20/2023 3 Discontinue d(End of Procedure) Cephalexin 500 MG Oral Capsule (Keflex)Indication s:Dysuria Take 1 Capsule by mouth 2 times a day with morning and evening meals for 5 days. 10 Capsule 0 07/27/2023 3 Discontinue d(End of Procedure) Chlorthalidone 25 MG Oral Tablet (Hygroton)Indicati ons:Benign hypertension with CKD (chronic kidney disease), stage II TAKE 1 TABLET BY MOUTH EVERY DAY IN THE MORNING 90 Tablet 1 10/11/2023 3 Discontinue d(Medicatio n/Dose Changed) documented as of this encounter (statuses as of 12/14/2023) Active Problems Problem Noted Date Diagnosed Date [...] ase with esophagitis 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 Atherosclerosis of [place] co ronary artery of [place] heart without angina pectoris Adjustment disorder with depressed mood documented as of this encounter (statuses as of 12/14/2023) Resolved Problems Problem Noted Date Diagnosed Date [...] 09/23/2012 Genetic Sleep Disorder Resea [facility] Other*[id number] 09/12/2012 06/25/2016 Obesity, Class II, BMI 35-39 [...] as of this encounter (statuses as of 12/14/2023) Immunizations Name Administration Dates Next Due COVID-19 [...] encounter Miscellaneous Notes * Telephone Encounter - Kumar Salinas MD - 11/08/2023 4:27 PM EST I am fine with her taking the chlorthalidone 25 mg * Telephone Encounter - Chanelle Harding LPN - 11/08/2023 3:55 PM EST Admission/Start of Care Admission/Start of Care: Patient was Admitted to: [facility], for: Conditioning after her syncopal episode - sent from [facility] on discharge from 10/29/23 to 11/07/23 Referral received for: Correction, PT, and OT Planned start of care date:Yes, Date 11/08/23 Vitals: T 97.6 P 68 RR 18 BP 150/80 SP O2 97% R/A Lung sounds- [facility] Weight - 165 lbs Blood sugar-pt does not check Narrative: Education on diabetes and HTN. Procardia was increased 60 mg to 90 mg, once daily. Ferrous Sulfate 325 (65 Fe) MG ( 1 tablet twice daily) was not on discharge orders from [facility] but patient had it on hand at home - added to pill box. Chlorthalidone 25 MG Oral Tablet (Hygroton) ( 1 tablet every day in the morning) was not on discharge orders from [facility] but patient had it on hand at home and due to her having +1 Edema BLE - added to her pill box. Please advise if PCP does not wish for patient to continue these meds Next PT or OT visit(s) some time this week They will call with any updates or additional concerns from the upcoming HH visit. Last Office Visit: 07/27/2023 Has patient been scheduled or seen in the office for a follow up visit: Yes- on11/17/23 Advised that orders will be signed by Dr. Salinas and to fax to the office for signature. Call back [facility] with advice or orders at [phone] Please fax orders to [phone] documented in this encounter Plan of Treatment Upcoming Encounters Date Type Department Care Team (Late st Contact Info) Description 01/10/2024 11:20 AM EST Office Visit Neurology [facility] [place] [address] [place] [address] Emelia Robles PA-C 200 [facility] [place] [address] 02/23/2024 2:00 PM EDT Office Visit Family Medicine [address] [place] [phone] Linda Smith MD [address] [place] [address] [place] [address] Health Maintenance Due Date Last Done Comments Zoster Vaccines (1 of 2) 1989 Hepatitis B (1 of 3 - Risk 3-dose series) 1999 Depression Screening 04/29/2021 04/29/2020 Influenza Vaccine (FLU shot) (#1) 2023 09/17/2022, 10/17/2021, 08/13/2020, Additional history exists Diabetic Foot Exam 04/28/2024 04/28/2023, 0 03/12/2022, 04/01/2021, Additional history exists TSH 04/28/2024 12/14/2023, 03/31, 05/14/2022, Additional history exists HbA1c 05/18/2024 11/17/2023, 03/31, 11/17/2022, Additional history exists Diabetic Eye Exam 09/03/2024 09/03/2023, , 10/26/2022, Additional history exists Albumin/Creatinine Ratio 11/17/2024 023, 11/17/2022, 11/13/2021, Additional history exists GFR 12/10/2024 12/10/2023, 10/29, 11/07/2023, Additional history exists DXA Scan 05/31/2026 05/31/2019, [...] filedocumented as of this encounter Care Teams Seo Specialist Relationship Specialty Start Date End Date Kumar Salinas MD [address] [place] [address] [place] [address] PCP - General 04/03/09 documented as of this encounter
--- OUTSIDE RECORDS SUMMARY | 2023-12-23 04:34 | External Medical Summary | Summary of Care ---
Author Name Unknown Organization [facility] Address [address] [place] [address] Phone [phone] Care Team Providers Care Drafter Assistant Name Role Phone Kumar Salinas MD Primary Care Provider Reason for Visit * Reason Onset Date Comments Med Request 12/20/2023 Encounter Details Date Type Department Care Team (Late st Contact Info) Description 12/20/2023 Telephone Cardiology, [facility] [address] [facility] [place] [address] Chace Peacock, [address] [place] [address] Med Request Allergies Active Allergy Reactions Criticality [...] TWICE A DAY 0 05/18/2022 Active Nystatin 743149 UNIT/GM External CreamIndications:Can dida infection Apply to affected area 2-3 times daily for 5 days 45 g 1 09/17/2022 Active Nystatin 211426 UNIT/GM External Powder (Nystop)Indications: Brunilda infection Apply [...] fibrillation (HCC),Dyslipidemia, goal LDL below 100,Atherosclerosis of [place] coronary artery of [place] heart without angina pectoris TAKE ONE PILL [...] 25 MG Oral Tablet (Lopressor)Indicatio ns:Atherosclerosis of [place] coronary artery of [place] heart without angina pectoris,Paroxysmal atrial fibrillation (HCC),Essential [...] ase with esophagitis 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 Atherosclerosis of [place] co ronary artery of [place] heart without angina pectoris Adjustment disorder with [...] persistent 09/23/2012 09/23/2012 Genetic Sleep Disorder Resea [facility] Other*[id number] 09/12/2012 06/25/2016 Obesity, Class II, BMI 35-39 [...] MCG/0.3 mL, 12 YRS AND ABOVE, IM ([facility]) 11/17/2023 COVID-19, mRNA, LNP-s, PF, B [...] Peacock Looks like 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 [facility] and will be out today. [facility] Provider Name:Technical Solutions Engineer = Ayush * Telephone Encounter - Olga Dykes PHARM Tech - 12/20/2023 10:00 AM EST Pt called and was transferred to the specialty line Thank you, Olga Dykes,pest control technician Sales And Merchandising Representative II [facility] ([facility]) (formerly Telepharmacy) 12/20/2023,10:01 AM documented in this encounter Plan of Treatment Upcoming Encounters Date Type Department Care Team (Late st Contact Info) Description 01/10/2024 11:20 AM EST Office Visit Neurology [facility] [address] [place] [address] Emelia Robles PA-C 200 [facility] [place] [address] 01/10/2024 1:00 PM EST Office Visit Cardiology, [facility] [address] [place] [address] Chace Peacock DO [address] [place] [address] 02/23/2024 2:00 PM EDT Office Visit Family Medicine [address] [place] [address] Linda Smith MD [address] [place] [address] [place] [address] Health Maintenance Due Date Last Done Comments [...] filedocumented as of this encounter Care Teams Drafter Assistant Relationship Specialty Start Date End Date Kumar Salinas MD [address] [place] [address] [place] [address] PCP - General 04/03/09 documented as of this encounter
--- OUTSIDE RECORDS SUMMARY | 2023-12-23 04:34 | External Medical Summary ---
Author Name Unknown Address Unknown Organization K[facility] [place] [place] [address] Laboratory Report Ordering Provider Test Date Status PAUL BROOKS 12/17/2023 06:59:00 Final Observation Date Value Abnormality Reference (Units ) Status WBC, Total 12/17/2023 06:59:00 7.98 4.00-10.8 0 (K/uL) Final RBC 12/17/2023 06:59:00 3.92 3.85-5.15 (M/uL) Final Hemoglobin 12/17/2023 06:59:00 11.2 Below low normal 12 .0-15.3 (g/dL) Final HCT 12/17/2023 06:59:00 35.9 Below low normal 36. 0-45.2 (%) Final MCV 12/17/2023 06:59:00 91.6 81.5-97.5 (fL) Final MCH 12/17/2023 06:59:00 28.6 27.0-34.0 (pg) Final MCHC 12/17/2023 06:59:00 31.2 32.0-36.0 (g/dL) Final RDW 12/17/2023 06:59:00 15.2 11.5-15.5 (%) Final Platelets 12/17/2023 06:59:00 414 Above high normal 14 0-400 (K/uL) Final MPV 12/17/2023 06:59:00 10.9 6.6-11.1 ( fL) Final Performing Location [facility] [place] [address]
--- OUTSIDE RECORDS SUMMARY | 2023-12-23 04:34 | External Medical Summary | Summary of Care ---
Author Name Unknown Organization [facility] Address [address] [place] [address] Phone [phone] Care Team Providers Care Revenue Stamper Name Role Phone Kumar Salinas MD Primary Care Provider Reason for Visit * Reason Onset Date Comments Med Request 12/20/2023 Encounter Details Date Type Department Care Team (Late st Contact Info) Description 12/20/2023 Telephone Cardiology, [facility] [address] [facility] [place] [address] Chace Peacock, [address] [facility] [place] [address] Med Request Allergies Active Allergy Reactions Criticality [...] 2, 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% ([facility]) TEST BLOOD SUGAR ONCE DAILY DIRECTED [...] TWICE A DAY 0 05/18/2022 Active Nystatin 338696 UNIT/GM External CreamIndications:Can dida infection Apply to affected area 2-3 times daily for 5 days 45 g 1 09/17/2022 Active Nystatin 093109 UNIT/GM External Powder (Nystop)Indications: Brunilda infection Apply [...] hemoglobin A1c goal of less than 7.0% ([facility]) TAKE 1 TABLET BY MOUTH TWICE [...] persistent 09/23/2012 09/23/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 [facility] was [facility] morning with a small supply and will be out today. [facility] Provider Name:Artificial Stone Setter = Ayush * Telephone Encounter - Olga Dykes PHARM Tech - 12/20/2023 10:00 AM EST Pt called and was transferred to the specialty line Thank you, Olga Dkyes CPhT Night Warehouse Selector II [facility] ([facility]) (formerly Telepharmacy) 12/20/2023,10:01 AM documented in this encounter Plan of Treatment Upcoming Encounters Date Type Department Care Team (Late st Contact Info) Description 01/10/2024 11:20 AM EST Office Visit Neurology [facility] [place] [address] [place] [address] Emelia Robles PA-C [address] [place] [address] 02/23/2024 2:00 PM EDT Office Visit Family Medicine [address] [place] [phone] Linda Smith MD [address] [place] [address] [place] [address] Health Maintenance Due Date Last Done Comments [...] filedocumented as of this encounter Care Teams Revenue Stamper Relationship Specialty Start Date End Date Kumar Salinas MD [address] [place] [address] [place] [phone] PCP - General 04/03/09 documented as of this encounter
--- OUTSIDE RECORDS SUMMARY | 2023-12-23 04:34 | External Medical Summary ---
Author Name Unknown Address Unknown Organization K[facility] [place] [address] Laboratory Report Ordering Provider Test Date Status PAUL BROOKS 12/10/2023 06:50:00 Final Observation Date Value Abnormality Reference (Units ) Status WBC, Total 12/10/2023 06:50:00 8.90 4.00-10.8 0 (K/uL) Final RBC 12/10/2023 06:50:00 3.89 3.85-5.15 (M/uL) Final Hemoglobin 12/10/2023 06:50:00 11.1 Below low normal 12 .0-15.3 (g/dL) Final HCT 12/10/2023 06:50:00 35.5 Below low normal 36. 0-45.2 (%) Final MCV 12/10/2023 06:50:00 91.3 81.5-97.5 (fL) Final MCH 12/10/2023 06:50:00 28.5 27.0-34.0 (pg) Final MCHC 12/10/2023 06:50:00 31.3 32.0-36.0 (g/dL) Final RDW 12/10/2023 06:50:00 15.1 11.5-15.5 (%) Final Platelets 12/10/2023 06:50:00 360 140-400 (K /uL) Final MPV 12/10/2023 06:50:00 11.3 6.6-11.1 ( fL) Final Performing Location [facility] [place] [address]
--- OUTSIDE RECORDS SUMMARY | 2023-12-23 04:34 | External Medical Summary | Summary of Care ---
Author Name Unknown Organization [facility] Address [address] [place] [address] Phone [phone] Care Team Providers Care Food Clerk Name Role Phone Kumar Salinas MD Primary Care Provider Encounter Details Date Type Department Care Team (Late st Contact Info) Description 12/05/2023 Result Scan Unspecified Department Chace Peacock, DO [address] [place] [address] <No scans attached> Allergies Active Allergy Reactions Criticality Noted Date Comments Crab (Diagnostic) 04/05/2018 Food (See Comments) 07/24/2015 Broccoli, beans, cauliflower - cause gas Grapefruit, oranges - cause bronchitis - positive skin test Paroxetine Hydrochloride 04/03/2009 Penicillins 04/03/2009 Blisters on hands Peanut-Containing Drug Products Abdominal pain Medium 07/24/2015 Gas, bloating documented as of this encounter (statuses as of 12/06/2023) Medications Medication Sig Dispensed Refills Start Date [...] 30GIndications:DM type 2, 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% ([facility]) TEST BLOOD SUGAR ONCE DAILY DIRECTED [...] TWICE A DAY 0 05/18/2022 Active Nystatin 487682 UNIT/GM External CreamIndications:Can dida infection Apply to affected area 2-3 times daily for 5 days 45 g 1 09/17/2022 Active Nystatin 111148 UNIT/GM External Powder (Nystop)Indications: Brunilda infection Apply [...] fibrillation (HCC),Dyslipidemia, goal LDL below 100,Atherosclerosis of [place] coronary artery of [place] heart without angina pectoris TAKE ONE PILL BY MOUTH AT BEDTIME 90 Tablet 1 06/13/2023 Active metFORMIN HCl 850 MG Oral Tablet (Glucophage)Indicati ons:Type 2 diabetes mellitus with hemoglobin A1c goal of less than 7.0% ([facility]) TAKE 1 TABLET BY MOUTH TWICE [...] 25 MG Oral Tablet (Lopressor)Indicatio ns:Atherosclerosis of [place] coronary artery of [place] heart without angina pectoris,Paroxysmal atrial fibrillation (HCC),Essential [...] as of this encounter (statuses as of 12/06/2023) Active Problems Problem Noted Date Diagnosed Date [...] ase with esophagitis 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 Atherosclerosis of [place] co ronary artery of b[place] heart without angina pectoris Adjustment disorder with depressed mood documented as of this encounter (statuses as of 12/06/2023) Resolved Problems Problem Noted Date Diagnosed Date [...] persistent 09/23/2012 09/23/2012 Genetic Sleep Disorder Resea [facility] Other*[id number] 09/12/2012 06/25/2016 Obesity, Class II, BMI 35-39 [...] as of this encounter (statuses as of 12/06/2023) Immunizations Name Administration Dates Next Due COVID-19 mRNA, LNP-s, No Pre serve, 2-Dose Series ([employer]a) 03/15/2021,02/16/2021 COVID-19, MRNA-LNP, 23-24, P F, 30 MCG/0.3 mL, 12 YRS AND ABOVE, IM ([employer]) 11/17/2023 COVID-19, mRNA, LNP-s, PF, B ooster, [...] 2:00 PM EDT Office Visit Family Medicine [facility] [address] [place] [phone] Linda Smith MD [address] [place] [address] [place] [address] Health Maintenance Due Date Last Done Comments Zoster Vaccines (1 of 2) 1989 Hepatitis B (1 of 3 - Risk 3-dose series) 1999 Depression Screening 04/29/2021 04/29/2020 Influenza Vaccine (FLU shot) (#1) 2023 09/17/2022, 10/17/2021, 08/13/2020, Additional history exists Diabetic Foot Exam 04/28/2024 04/28/2023, 0 03/12/2022, 04/01/2021, Additional history exists TSH 04/28/2024 04/28/2023, 04/29, 11/13/2021, Additional history exists HbA1c 05/18/2024 11/17/2023, 0511/2022, 11/17/2022, Additional history exists Diabetic Eye Exam 09/03/2024 09/03/2023, , 10/26/2022, Additional history exists GFR 11/10/2024 11/10/2023, 10/29, 11/01/2023, Additional history exists Albumin/Creatinine Ratio 11/17/202411/17/ 023, 11/17/2022, 11/13/2021, Additional history exists DXA [...] Procedure Name Priority Date/Time Associated Diagnosis Comments RADIOLOGY SCANNED RESULT 12/05/2023 documented in this encounter Results * RADIOLOGY SCANNED RESULT (12/05/2023) 12/05/2023 Chace Peacock DO [facility] documented in this encounter Care Teams Food Clerk Relationship Specialty Start Date End Date Kumar Salinas MD [address] [place] [address] [place] [address] PCP - General 04/03/09 documented as of this encounter
--- OUTSIDE RECORDS SUMMARY | 2023-12-23 04:34 | External Medical Summary | Summary of Care ---
Author Name Unknown Organization [facility] Address [address] [place] [address] Phone [phone] Care Team Providers Care Bridal Consultant Name Role Phone Kumar Salinas MD Primary Care Provider Encounter Details Date Type Department Care Team (Late st Contact Info) Description 12/03/2023 Result Scan Unspecified Department Gabrielle Bell CRNP [address] [place] [address] <No scans attached> Allergies Active Allergy Reactions Criticality Noted Date Comments Crab (Diagnostic) 04/05/2018 Food (See Comments) 07/24/2015 Broccoli, beans, cauliflower - cause gas Grapefruit, oranges - cause bronchitis - positive skin test Paroxetine Hydrochloride 04/03/2009 Penicillins 04/03/2009 Blisters on hands Peanut-Containing Drug Products Abdominal pain Medium 07/24/2015 Gas, bloating documented as of this encounter (statuses as of 12/07/2023) Medications Medication Sig Dispensed Refills Start Date [...] 30GIndications:DM type 2, 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% ([facility]) TEST BLOOD SUGAR ONCE DAILY [...] TWICE A DAY 0 05/18/2022 Active Nystatin 140635 UNIT/GM External CreamIndications:Can dida infection Apply to affected area 2-3 times daily for 5 days 45 g 1 09/17/2022 Active Nystatin 940183 UNIT/GM External Powder (Nystop)Indications: Brunilda infection Apply [...] fibrillation (HCC),Dyslipidemia, goal LDL below 100,Atherosclerosis of lummi coronary artery of lummi heart without angina pectoris TAKE ONE PILL BY MOUTH AT BEDTIME 90 Tablet 1 06/13/2023 Active metFORMIN HCl 850 MG Oral Tablet (Glucophage)Indicati ons:Type 2 diabetes mellitus with hemoglobin A1c goal of less than 7.0% ([facility]) TAKE 1 TABLET BY MOUTH [...] 25 MG Oral Tablet (Lopressor)Indicatio ns:Atherosclerosis of lummi coronary artery of lummi heart without angina pectoris,Paroxysmal atrial fibrillation (HCC),Essential [...] as of this encounter (statuses as of 12/07/2023) Active Problems Problem Noted Date Diagnosed Date [...] ase with esophagitis 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 Atherosclerosis of lummi co ronary artery of lummi heart without angina pectoris Adjustment disorder with depressed mood documented as of this encounter (statuses as of 12/07/2023) Resolved Problems Problem Noted Date Diagnosed Date [...] persistent 09/23/2012 09/23/2012 Genetic Sleep Disorder Resea [facility] Other*[id number] 09/12/2012 06/25/2016 Obesity, Class II, BMI 35-39 [...] as of this encounter (statuses as of 12/07/2023) Immunizations Name Administration Dates Next Due COVID-19 mRNA, LNP-s, No Pre serve, 2-Dose Series (Moderna) 03/15/2021,02/16/2021 COVID-19, MRNA-LNP, 23-24, P F, 30 MCG/0.3 mL, 12 YRS AND ABOVE, IM (GLOG-Comirnaty) 11/17/2023 COVID-19, mRNA, LNP-s, PF, B ooster, [...] PM EDT Office Visit Family Medicine [address] [place] [id number] Linda Smith MD [address] [place] [address] [place] [address] Health Maintenance Due Date Last Done Comments [...] Procedure Name Priority Date/Time Associated Diagnosis Comments ECHOCARDIOLOGY SCANNED RESULT 12/03/2023 documented in this encounter Results * ECHOCARDIOLOGY SCANNED RESULT (12/03/2023) 12/03/2023 Gabrielle ALONSO ECHOCARDIOLOGY documented in this encounter Care Teams Bridal Consultant Relationship Specialty Start Date End Date Kumar Salinas MD [address] [place] [address] [place] [id number] PCP - General 04/03/09 documented as of this encounter
[2023-12-23] MEDS ORDERED: DEXTROSE 50% 50 ML SYRINGE IV PRN (05:13)
[2023-12-23] MEDS ORDERED: GLUCOSE 40% GEL 15 GM TUBE PO PRN (05:13)
[2023-12-23] MEDS ORDERED: ACETAMINOPHEN 325 MG TAB PO PRN (05:13)
[2023-12-23] MEDS ORDERED: GLUCAGON FOR INJ 1 MG VIAL SQ PRN (05:13)
[2023-12-23] MEDS ORDERED: CARBOHYDRATES FOR HYPOGLYCEMIA PO PRN (05:13)
[2023-12-23] MEDS ORDERED: GLUCOSE 10 TAB/TUBE PO PRN (05:13)
[2023-12-23] MEDS: INSULIN ASPART PER UNIT CHARGE SC SCH ×4 (05:28→20:47)
[2023-12-23] MEDS: PANTOprazole 40 MG TAB PO SCH (06:11)
[2023-12-23] MEDS: LEVOTHYROXINE SODIUM 100 MCG TABLET PO SCH (06:13)
--- NOTE | 2023-12-23 07:00 | XRay Report ---
XR chest 1V portable HISTORY: 83 years-old Female Chest pain, nonspecific COMPARISON: 12/03/2023 TECHNIQUE: AP view of the chest FINDINGS: Cardiac silhouette is enlarged. Mitral annular calcifications. No pneumothorax, pleural effusion, air space consolidation or pulmonary edema. Degenerative changes of the shoulders and spine. IMPRESSION: Cardiomegaly without acute process. ACT 112: Negative or not required by law. The above report was generated using voice recognition software. It may contain grammatical, syntax o r spelling errors. Electronically signed by: Talib Morales M.D. 12/23/2023 6:58 AM
[2023-12-23 07:36] LABS: Basophils # (auto) 0.02 K/uL (0.00-0.20); Basophils % (auto) 0.2 %; Eosinophils # (auto) 0.03 K/uL (0.00-0.50); Eosinophils % (auto) 0.3 %; Hematocrit (blood only) 33.8 % (37.0-47.0); Hemoglobin 11.2 g/dl (12.0-16.0); Immature Granulocytes # (auto) 0.04 K/uL (0.01-0.20); Immature Granulocytes % (auto) 0.4 %; Lymphocytes # (auto) 1.59 K/uL (1.20-3.40); Mean Corpuscular Hemoglobin 28.8 pg (25.0-34.0); Mean Corpuscular Hgb Conc 33.1 g/dL (32.0-36.0); Mean Corpuscular Volume 86.9 fL (80.0-100.0); Mean Platelet Volume 10.8 fL (9.4-12.4); Monocytes # (auto) 0.64 K/uL (0.11-0.59); Neutrophils # (auto) 8.27 K/uL (1.40-6.50); Neutrophils % (auto) 78.1 %; Platelet Count 322 K/uL (130-400); RDW Coefficient of Variation 15.3 % (11.5-14.5); RDW Standard Deviation 47.9 fL (36.4-46.3); Red Blood Count 3.89 M/uL (4.20-5.40); White Blood Count 10.59 K/ul (4.8-10.8)
[2023-12-23 08:15] LABS: BUN Creatinine Ratio 26.8 (10-20); Creatinine Clr Calc Pharmacy 68.6 ml/min; Est GFR (African American) 99.2 ml/min; Est GFR (Non-African American) 85.6 ml/min; Potassium 3.7 mmol/L (3.5-5.1)
[2023-12-23] MEDS ORDERED: MAGNESIUM SULFATE / D5W 1 GM/100 ML BAG IV ONE (08:18)
[2023-12-23 08:40] LABS: Magnesium 1.1 mg/dl (1.7-2.4)
[2023-12-23] MEDS: OXYBUTYNIN CHLORIDE XL 5 MG TABCR PO SCH (08:52)
[2023-12-23] MEDS: CEROVITE ADV FORMULA TAB PO SCH (08:52)
[2023-12-23] MEDS: NIFEdipine EXTENDED REL 30 MG TABCR PO SCH (08:52)
[2023-12-23] MEDS: VENLAFAXINE HCL XR 37.5 MG CAPXR PO SCH (08:52)
[2023-12-23] MEDS: LOSARTAN POTASSIUM 50 MG TAB PO SCH ×2 (08:52→20:42)
[2023-12-23] MEDS: METOPROLOL SUCC 25MG EXT REL TAB PO SCH ×2 (08:52→20:41)
[2023-12-23] MEDS: FLUTICASONE/VILANTEROL 200/25MCG 14 PUFFS/INHALER INH SCH (08:53)
[2023-12-23] MEDS: APIXABAN 5 MG TABLET PO SCH ×2 (08:53→20:39)
[2023-12-23] MEDS: FLUTICASONE PROPIONATE NA SPR 16 GM BTL SCH (08:54)
[2023-12-23] MEDS: MAGNESIUM CHLORIDE W/CALCIUM 64MG DELAYED REL TAB PO SCH ×2 (08:55→20:41)
[2023-12-23] MEDS ORDERED: NON-FORMULARY MEDICATION (Multivitamin Tablet) PO SCH (09:00)
[2023-12-23] MEDS: MAGNESIUM SULFATE / D5W 1 GM/100 ML BAG IV SCH ×2 (11:37→13:56)
--- NOTE | 2023-12-23 16:52 | Hospitalist Progress Note ---
Date of Service December 23, 2023 Assessment & Plan (1) Nausea & vomiting: Plan: Nausea & Vomiting ? Viral etiology Dehydration --CT ABD:Large esophageal hiatal hernia. --CXR:Cardiomegaly without acute process. -- BioFire negative Received gentle IV fluids Advance diet as tolerated Will consider stool studies if develops diarrhea Transient metabolic encephalopathy secondary to above Mental status seem to be back to baseline Generalized weakness PT OT Fall precautions Hypomagnesemia Replete electrolytes as needed Monitor Chronic diastolic heart failure Last EF 65 to 70%, TTE 2023 Patient clinically dry Hold p.o. diuretics for now Monitor volume status Resume diuretics as able CAD S/P stent Continue aspirin, statin, metoprolol, losartan Paroxysmal atrial fibrillation On metoprolol for rate control Continue Eliquis for anticoagulation H/O cardioembolic CVA Continue Eliquis Hypertension Home medications Monitor BP Hyperlipidemia Continue atorvastatin DEMARIO on CPAP DM II Last HbA1c 6.3 Hold PO meds Continue insulin while hospitalized Monitor BGs Hypothyroidism Continue levothyroxine Chronic anemia Hb at baseline Monitor DVT Px: Eliquis Code Status Full code Admission and Anticipated Discharge Date Admission Date: December 23, 2023 Subjective Patient is seen and examined at bedside States feeling tired today Reports chronic left-sided weakness from prior stroke Denies any nausea vomiting today Tolerating liquid diet this morning No other complaints Review of Systems Review of Systems: All systems reviewed & are unremarkable except as noted in Subjective Physical Exam Physical Exam: Physical Exam: Vitals signs as noted above General Appearance:Moderately built and nourished, no apparent distress Head: normocephalic, Atraumatic Eyes: normal inspection, EOMI Neck: supple, Trachea midline Respiratory/Chest: Decreased breath sounds, CTA, No accessory muscle use Cardiovascular: S1, S2, No murmur Abdomen/GI:Soft, Non tender, Bowel sounds present Extremities/Musculoskeletal:normal inspection, Trace pedal edema Neurologic/Psych:AAOX3, grossly no focal neurological deficits Skin: normal color, warm Results & Data Results & Data Vital Signs (Past 12 Hours) Vital Signs Temp Pulse Resp BP Pulse Ox O2 Del Method 12/23/23 14:52 36.4 C L 68 18 122/75 96 Room Air 12/23/23 07:56 36.5 C 69 18 134/67 98 Room Air 12/23/23 06:31 Room Air Laboratory Results Short CBC 12/22/23 12/23/23 Range/Units 22:32 07:16 WBC 15.38 H 10.59 (4.8-10.8) K/ul Hgb 13.1 11.2 L (12.0-16.0) g/dl Hct 41.1 33.8 L (37.0-47.0) % Plt Count 390 322 (130-400) K/uL BMP 12/22/23 12/23/23 22:32 07:16 Sodium 138 138 Potassium 3.5 3.7 Chloride 100 102 Carbon Dioxide 25 27 BUN 18 15 Creatinine 0.74 0.56 L Glucose 223 H 117 H Calcium 10.0 9.0 Liver Function 12/22/23 Range/Units 22:32 Total Bilirubin 0.3 (0.2-1.0) mg/dl AST 12 L (13-39) U/L ALT 9 (7-52) U/L Alkaline Phosphatase 62 (34-104) U/L Albumin 4.2 (3.4-5.0) gm/dl Urine 12/23/23 Range/Units 00:17 Urine Color Yellow Urine Appearance Clear (Clear) Urine pH 7.5 (4.5-7.5) Ur Specific [place] 1.018 (1.000-1.030) Urine Protein Negative (Negative) Urine Glucose (UA) Negative (Negative) (1) Nausea & vomiting Vomiting type: unspecified Qualified Code(s): R11.2 - Nausea with vomiting, unspecified
--- NOTE | 2023-12-23 19:52 | Electrocardiogram Report ---
Test Reason : Blood Pressure : / mmHG Vent. Rate : 081 BPM Atrial Rate : 081 BPM P-R Int : 176 ms QRS Dur : 096 ms QT Int : 408 ms P-R-T Axes : 070 -25 034 degrees QTc Int : 473 ms Normal sinus rhythm Moderate voltage criteria for LVH, may be normal variant Borderline ECG When compared with ECG of 04-DEC-2023 06:07, T wave inversion no longer evident in Lateral leads Confirmed by Goyo Julian ([id number]) on 12/23/2023 7:52:21 PM Referred By: REFERRED SELF Confirmed By:Vasu Julian
[2023-12-23] MEDS ORDERED: BIMATOPROST 0.01% OP SOLN 2.5 ML BTL OPB SCH (21:00)
[2023-12-23] MEDS ORDERED: ATORVASTATIN 20 MG TAB PO SCH (21:00)
[2023-12-23] MEDS ORDERED: AZELASTINE HCL 0.1% NASAL 200 SPRAYS/27,400 MCG BTL SCH (21:00)
[2023-12-23] MEDS ORDERED: MONTELUKAST SODIUM 10 MG TABLET PO SCH (21:00)
[2023-12-23] MEDS ORDERED: CYANOCOBALAMIN (B-12) 500 MCG TABLET PO SCH (21:00)
[2023-12-23] MEDS ORDERED: ASPIRIN 81 MG ECTAB PO SCH (21:00)
[2023-12-24] MEDS: LEVOTHYROXINE SODIUM 100 MCG TABLET PO SCH (06:09)
[2023-12-24] MEDS: PANTOprazole 40 MG TAB PO SCH (06:10)
[2023-12-24 07:40] LABS: Hematocrit (blood only) 34.7 % (37.0-47.0); Hemoglobin 11.1 g/dl (12.0-16.0); Mean Corpuscular Hemoglobin 28.5 pg (25.0-34.0); Mean Corpuscular Volume 89.2 fL (80.0-100.0); Mean Platelet Volume 11.1 fL (9.4-12.4); Platelet Count 286 K/uL (130-400); RDW Coefficient of Variation 15.7 % (11.5-14.5); RDW Standard Deviation 51.3 fL (36.4-46.3); Red Blood Count 3.89 M/uL (4.20-5.40); White Blood Count 7.14 K/ul (4.8-10.8)
[2023-12-24 08:00] LABS: BUN Creatinine Ratio 16.2 (10-20); Creatinine Clr Calc Pharmacy 51.9 ml/min; Est GFR (African American) 86.2 ml/min; Est GFR (Non-African American) 74.4 ml/min; Magnesium 1.8 mg/dl (1.7-2.4); Potassium 4.2 mmol/L (3.5-5.1)
[2023-12-24] MEDS: METOPROLOL SUCC 25MG EXT REL TAB PO SCH (08:10)
[2023-12-24] MEDS: INSULIN ASPART PER UNIT CHARGE SC SCH ×2 (08:15→12:07)
[2023-12-24] MEDS: FLUTICASONE/VILANTEROL 200/25MCG 14 PUFFS/INHALER INH SCH (08:23)
[2023-12-24] MEDS: FLUTICASONE PROPIONATE NA SPR 16 GM BTL SCH (08:23)
[2023-12-24] MEDS: APIXABAN 5 MG TABLET PO SCH (08:24)
[2023-12-24] MEDS: CEROVITE ADV FORMULA TAB PO SCH (08:24)
[2023-12-24] MEDS: NIFEdipine EXTENDED REL 30 MG TABCR PO SCH (08:24)
[2023-12-24] MEDS: MAGNESIUM CHLORIDE W/CALCIUM 64MG DELAYED REL TAB PO SCH (08:24)
[2023-12-24] MEDS: LOSARTAN POTASSIUM 50 MG TAB PO SCH (08:24)
[2023-12-24] MEDS: OXYBUTYNIN CHLORIDE XL 5 MG TABCR PO SCH (08:25)
[2023-12-24] MEDS: VENLAFAXINE HCL XR 37.5 MG CAPXR PO SCH (08:25)
--- NOTE | 2023-12-24 15:11 | Hospitalist Progress Note ---
Date of Service December 24, 2023 Assessment & Plan (1) Nausea & vomiting: Plan: Nausea & Vomiting ? Viral etiology Dehydration --CT ABD:Large esophageal hiatal hernia. --CXR:Cardiomegaly without acute process. -- BioFire negative Received gentle IV fluids Will consider stool studies if develops diarrhea Clinically much improved Continue PT OT Plan to discharge to rehab facility today Transient metabolic encephalopathy secondary to above Mental status seem to be back to baseline Generalized weakness PT OT Fall precautions Hypomagnesemia Replete electrolytes as needed Monitor Chronic diastolic heart failure Last EF 65 to 70%, TTE 2023 Patient clinically dry Hold p.o. diuretics for now Monitor volume status Resume diuretics on discharge CAD S/P stent Continue aspirin, statin, metoprolol, losartan Paroxysmal atrial fibrillation On metoprolol for rate control Continue Eliquis for anticoagulation H/O cardioembolic CVA Continue Eliquis Hypertension Home medications Monitor BP Hyperlipidemia Continue atorvastatin DEMARIO on CPAP DM II Last HbA1c 6.3 Hold PO meds Continue insulin while hospitalized Monitor BGs Hypothyroidism Continue levothyroxine Chronic anemia Hb at baseline Monitor DVT Px: Eliquis Code Status Full code Disposition Acute rehab Admission and Anticipated Discharge Date Admission Date: December 23, 2023 Subjective Patient is seen and examined at bedside Doing much better today No new complaints Tolerating diet Nausea, vomiting resolved Denies any chest pain, dyspnea, dizziness, abdominal pain Plan to be discharged to rehab facility today Review of Systems Review of Systems: All systems reviewed & are unremarkable except as noted in Subjective Physical Exam Physical Exam: Physical Exam: Vitals signs as noted above General Appearance:Moderately built and nourished, no apparent distress Head: normocephalic, Atraumatic Eyes: normal inspection, EOMI Neck: supple, Trachea midline Respiratory/Chest: Decreased breath sounds, CTA, No accessory muscle use Cardiovascular: S1, S2, No murmur Abdomen/GI:Soft, Non tender, Bowel sounds present Extremities/Musculoskeletal:normal inspection, Trace pedal edema Neurologic/Psych:AAOX3, grossly no focal neurological deficits Skin: normal color, warm Results & Data Results & Data Vital Signs (Past 12 Hours) Vital Signs Temp Pulse Resp BP Pulse Ox O2 Del Method 12/24/23 07:29 36.6 C 54 L 16 156/76 H 96 Room Air Laboratory Results Short CBC 12/24/23 Range/Units 07:05 WBC 7.14 (4.8-10.8) K/ul Hgb 11.1 L (12.0-16.0) g/dl Hct 34.7 L (37.0-47.0) % Plt Count 286 (130-400) K/uL BMP 12/24/23 07:05 Sodium 141 Potassium 4.2 Chloride 107 Carbon Dioxide 28 BUN 12 Creatinine 0.74 Glucose 120 H Calcium 9.0 (1) Nausea & vomiting Vomiting type: unspecified Qualified Code(s): R11.2 - Nausea with vomiting, unspecified
--- NOTE | 2023-12-24 15:16 | Communication Note ---
Date of Service: December 24, 2023 By CMS guidelines, a determination that the admission or continued stay is not medically necessary has been made by a member of the UR committee and a ph ysician for this hospital stay, therefore a Code 44 will be completed and the Inpatient admission will be changed to outpatient.
--- NOTE | 2023-12-24 15:19 | Discharge Summary ---
Date of Service December 24, 2023 Admission HPI Per Admitting Provider History obtained from patient and records. Medical history significant for chronic diastolic heart failure (EF 65 to 70%, TTE 2023), CAD status post stent, PAF on Eliquis, CVA, hypertension, hyperlipidemia, DEMARIO on CPAP, DM2 on oral medications, hypothyroidism, chronic anemia (baseline hemoglobin of 11), GERD, mood disorder. Recent confinement December 03 to 2023 for cardioembolic CVA in the setting of PAF history. Patient discharged to [facility] facility before she returned home 4 days ago. Patient felt ill after lunch yesterday. Subsequent nausea and bilious emesis without actual abdominal pain. Denies headache, chest pain, SOB. Patient somewhat confused at home. Increased generalized weakness. Patient brought to the ER for evaluation. Patient feels much better after IVF administration at the ER. 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 Verified 11/15/23 13:55 broccoli Allergy Unknown GAS Unverified 11/15/23 13:55 grapefruit Allergy Unknown BRONCHITIS Unverified 11/15/23 13:55 mold Allergy Unknown asthma Verified 11/15/23 13:55 symptoms orange Allergy Unknown BRONCHITIS Unverified 11/15/23 13:55 paroxetine Allergy Unknown ANAPHYLAXIS Unverified 11/15/23 13:55 pollen extracts Allergy Unknown asthma Verified 11/15/23 13:55 symptoms vasquez AdvReac Unknown gas and Verified 12/03/23 06:17 bloating with consuption of green or kidneys beans crab AdvReac Unknown diarrhea Verified 11/15/23 13:55 peanut AdvReac Unknown gas/bloatin Unverified 11/15/23 13:55 g Consultations 12/23/23 01:18 ED Decision to Admit Stat Procedures Performed Laboratory Results WBC 7.14 K/ul (4.8-10.8) 12/24/23 07:05 RBC 3.89 M/uL (4.20-5.40) L 12/24/23 07:05 Hgb 11.1 g/dl (12.0-16.0) L 12/24/23 07:05 Hct 34.7 % (37.0-47.0) L 12/24/23 07:05 MCV 89.2 fL (80.0-100.0) 12/24/23 07:05 MCH 28.5 pg (25.0-34.0) 12/24/23 07:05 MCHC 32.0 g/dL (32.0-36.0) 12/24/23 07:05 RDW Std Deviation 51.3 fL (36.4-46.3) H 12/24/23 07:05 RDW Coeff of Stoney 15.7 % (11.5-14.5) H 12/24/23 07:05 Plt Count 286 K/uL (130-400) 12/24/23 07:05 MPV 11.1 fL (9.4-12.4) 12/24/23 07:05 Immature Gran % (Auto) 0.4 % 12/23/23 07:16 Neut % (Auto) 78.1 % 12/23/23 07:16 Lymph % (Auto) 15.0 % 12/23/23 07:16 [place] % (Auto) 6.0 % 12/23/23 07:16 Eos % (Auto) 0.3 % 12/23/23 07:16 Baso % (Auto) 0.2 % 12/23/23 07:16 Neut # (Auto) 8.27 K/uL (1.40-6.50) H 12/23/23 07:16 Lymph # (Auto) 1.59 K/uL (1.20-3.40) 12/23/23 07:16 [place] # (Auto) 0.64 K/uL (0.11-0.59) H 12/23/23 07:16 Eos # (Auto) 0.03 K/uL (0.00-0.50) 12/23/23 07:16 Baso # (Auto) 0.02 K/uL (0.00-0.20) 12/23/23 07:16 Immature Gran # (Auto) 0.04 K/uL (0.01-0.20) 12/23/23 07:16 PT 11.4 Seconds (9.0-12.0) 12/22/23 22:32 INR 1.0 (0.9-1.1) 12/22/23 22:32 Sodium 141 mmol/L (136-145) 12/24/23 07:05 Potassium 4.2 mmol/L (3.5-5.1) 12/24/23 07:05 Chloride 107 mmol/L (98-107) 12/24/23 07:05 Carbon Dioxide 28 mmol/L (21-32) 12/24/23 07:05 Anion Gap 6 (3-11) 12/24/23 07:05 BUN 12 mg/dl (6-23) 12/24/23 07:05 Creatinine 0.74 mg/dl (0.6-1.2) 12/24/23 07:05 Est Cr Clr Drug Dosing 51.9 ml/min 12/24/23 07:05 Est GFR ( Amer) 86.2 ml/min 12/24/23 07:05 Est GFR (Non-Af Amer) 74.4 ml/min 12/24/23 07:05 BUN/Creatinine Ratio 16.2 (10-20) 12/24/23 07:05 Glucose 120 mg/dl (70-99(Fasting)) H 12/24/23 07:05 POC Glucose 102 mg/dl (70-99) H 12/24/23 11:36 Calcium 9.0 mg/dl (8.6-10.3) 12/24/23 07:05 Magnesium 1.8 mg/dl (1.7-2.4) 12/24/23 07:05 Total Bilirubin 0.3 mg/dl (0.2-1.0) 12/22/23 22:32 AST 12 U/L (13-39) L 12/22/23 22:32 ALT 9 U/L (7-52) 12/22/23 22:32 Alkaline Phosphatase 62 U/L (34-104) 12/22/23 22:32 Troponin I High Sens 7.4 pg/ml (0-14) 12/22/23 22:32 Total Protein 7.4 gm/dl (6.0-8.3) 12/22/23 22:32 Albumin 4.2 gm/dl (3.4-5.0) 12/22/23 22:32 Globulin 3.2 gm/dl (2.5-4.0) 12/22/23 22:32 Albumin/Globulin Ratio 1.3 (0.9-2) 12/22/23 22:32 Lipase 10 U/L (11-82) L 12/22/23 22:32 Urine Color Yellow 12/23/23 00:17 Urine Appearance Clear (Clear) 12/23/23 00:17 Urine pH 7.5 (4.5-7.5) 12/23/23 00:17 Ur Specific [place] 1.018 (1.000-1.030) 12/23/23 00:17 Urine Protein Negative (Negative) 12/23/23 00:17 Urine Glucose (UA) Negative (Negative) 12/23/23 00:17 Urine Ketones 2+ (Negative) H 12/23/23 00:17 Urine Blood Negative (Negative) 12/23/23 00:17 Urine Nitrite Negative (Negative) 12/23/23 00:17 Urine Bilirubin Negative (Negative) 12/23/23 00:17 Urine Urobilinogen Negative (Negative) 12/23/23 00:17 Ur Leukocyte Esterase Trace (Negative) H 12/23/23 00:17 Urine WBC (Auto) 1-5 /hpf (0-5) 12/23/23 00:17 Urine RBC (Auto) 0-4 /hpf (0-4) 12/23/23 00:17 U Hyaline Cast (Auto) 1-5 /lpf (0-5) 12/23/23 00:17 U Epithel Cells (Auto) 10-20 /lpf (0-5) H 12/23/23 00:17 Urine Bacteria (Auto) Negative (Negative) 12/23/23 00:17 Adenovirus (PCR) Not Detected (NotDetected) 12/22/23 23:17 B. pertussis DNA (PCR) Not Detected (NotDetected) 12/22/23 23:17 B.parapertussis DNA PCR Not Detected (NotDetected) 12/22/23 23:17 C. pneumoniae DNA (PCR) Not Detected (NotDetected) 12/22/23 23:17 Coronavirus OC43 (PCR) Not Detected (NotDetected) 12/22/23 23:17 Coronavirus HKU1 (PCR) Not Detected (NotDetected) 12/22/23 23:17 Coronavirus 229E (PCR) Not Detected (NotDetected) 12/22/23 23:17 SARS-CoV-2 (PCR) Not Detected (NotDetected) 12/22/23 23:17 Coronavirus NL63 (PCR) Not Detected (NotDetected) 12/22/23 23:17 Human Metapneumovir PCR Not Detected (NotDetected) 12/22/23 23:17 Influenza Type A (PCR) Not Detected (NotDetected) 12/22/23 23:17 Influenza Type B (PCR) Not Detected (NotDetected) 12/22/23 23:17 M. pneumoniae (PCR) Not Detected (NotDetected) 12/22/23 23:17 Parainfluenza 1 (PCR) Not Detected (NotDetected) 12/22/23 23:17 Parainfluenza 2 (PCR) Not Detected (NotDetected) 12/22/23 23:17 Parainfluenza 3 (PCR) Not Detected (NotDetected) 12/22/23 23:17 Parainfluenza 4 (PCR) Not Detected (NotDetected) 12/22/23 23:17 RSV (PCR) Not Detected (NotDetected) 12/22/23 23:17 Entero/Rhino (PCR) Not Detected (NotDetected) 12/22/23 23:17 Impressions Chest X-Ray 12/22/23 22:50 XR chest 1V portable HISTORY: 83 years-old Female Chest pain, nonspecific COMPARISON: 12/03/2023 TECHNIQUE: AP view of the chest FINDINGS: Cardiac silhouette is enlarged. Mitral annular calcifications. No pneumothorax, pleural effusion, airspace consolidation or pulmonary edema. Degenerative changes of the shoulders and spine. IMPRESSION: Cardiomegaly without acute process. ACT 112: Negative or not required by law. The above report was generated using voice recognition software. It may contain grammatical, syntax or spelling errors. Electronically signed by: Talib Morales M.D. 12/23/2023 6:58 AM Abdomen/Pelvis CT 12/22/23 23:04 Exam(s): CT ABDOMEN + PELVIS With Contrast IV Amt: 65 ML OPTIRAY 320 EXAM: CT Abdomen and Pelvis With Intravenous Contrast CLINICAL HISTORY: Reason for exam: N/v. TECHNIQUE: Axial computed tomography images of the abdomen and pelvis with intravenous contrast. Automated exposure control was utilized for the study. A dose lowering technique was utilized adhering to the principles of ALARA. CONTRAST: Patient received 65 ML OPTIRAY 320 of IV contrast COMPARISON: 07/09/2021 FINDINGS: Lung bases: Unremarkable. No mass. No consolidation. Heart: Cardiomegaly. Mediastinum: Large esophageal hiatal hernia. ABDOMEN: Liver: Unremarkable. No mass. Gallbladder and bile ducts: Unremarkable. No calcified stones. No ductal dilation. Pancreas: Unremarkable. No mass. No ductal dilation. Spleen: Unremarkable. No splenomegaly. Adrenals: Unremarkable. No mass. Kidneys and ureters: Simple left renal cyst. No follow-up of this simple cyst is necessary. No hydronephrosis. Stomach and bowel: Large amount of stool within the rectum. Diverticulosis without evidence of diverticulitis. Diverticulosis without evident diverticulitis. Large esophageal hiatal hernia Esophageal PELVIS: Appendix: Postoperative changes prior appendectomy. Bladder: Unremarkable. No mass. Reproductive: Unremarkable as visualized. ABDOMEN and PELVIS: Intraperitoneal space: Unremarkable. No free air. No significant fluid collection. Bones/joints: No acute fracture. No dislocation. Soft tissues: Unremarkable. Vasculature: Unremarkable. No abdominal aortic aneurysm. Lymph nodes: Unremarkable. No enlarged lymph nodes. IMPRESSION: Large esophageal hiatal hernia. Electronically signed by: Bowen Mendes MD 12/23/23 00:27 AM Ordered Studies 12/22/23 23:04 CT Abd and Pelvis [CT abd pelvis IV con only] Stat Hospital Course (1) Nausea & vomiting: Nausea & Vomiting ? Viral etiology Dehydration --CT ABD:Large esophageal hiatal hernia. --CXR:Cardiomegaly without acute process. -- BioFire negative Received gentle IV fluids Will consider stool studies if develops diarrhea Clinically much improved Continue PT OT Plan to discharge to rehab facility today Transient metabolic encephalopathy secondary to above Mental status seem to be back to baseline Generalized weakness PT OT Fall precautions Hypomagnesemia Replete electrolytes as needed Monitor Chronic diastolic heart failure Last EF 65 to 70%, TTE 2023 Patient clinically dry Hold p.o. diuretics for now Monitor volume status Resume diuretics on discharge CAD S/P stent Continue aspirin, statin, metoprolol, losartan Paroxysmal atrial fibrillation On metoprolol for rate control Continue Eliquis for anticoagulation H/O cardioembolic CVA Continue Eliquis Hypertension Home medications Monitor BP Hyperlipidemia Continue atorvastatin DEMARIO on CPAP DM II Last HbA1c 6.3 Hold PO meds Continue insulin while hospitalized Monitor BGs Hypothyroidism Continue levothyroxine Chronic anemia Hb at baseline Monitor DVT Px: Eliquis Code Status Full code Disposition Acute rehab Total Time Total Time Spent Total Time Spent (In Minutes): 55 minutes Discharge Plan Discharge Items Patient Disposition: Transfer Inpatient Rehab Fac Reason For Visit: [place] Discharge Diagnosis: Nausea, vomiting Dehydration Transient metabolic encephalopathy Hypomagnesemia Activity: Per Instructions section Exercise/Sports: Gradually increase as tolerated Non-emergency contact: Primary Care Provider Call non-emergency contact if: you have any medication questions, your symptoms worsen, your pain is concerning for you and you have a fever Follow-up/Referrals: PCP,NO [Primary Care Provider] - Diet: Carb Consistent or DM2 Addtl Attending Provider Instructions: Follow-up with your primary care physician in 1 week upon discharge from rehab facility Seek immediate medical attention if your symptoms reoccur or worsen Please take all medications as instructed on discharge list below. Please call if you have any questions or problems. You can reach a [facility] hospitalist on duty at [facility] 24 hours a day by calling [phone] Pending Studies at Discharge: No Stand-Alone Forms: [facility] Skilled Items Patient informed of condition?: Yes DNR: No Discharge Level of Care: Acute rehab Communicable Disease: No Discharge Prognosis: Stable Lines: None Urinary Catheter: No Medications and DC Order Prescriptions: Continued atorvastatin 20 mg tablet 20 mg PO HS montelukast 10 mg tablet 10 mg PO HS multivitamin Tablet 1 tab PO DAILY metformin 850 mg tablet 850 mg PO BIDM fluticasone propionate 50 mcg/actuation spray,suspension 2 spray intranasal QAM coenzyme Q10 [CoQ-10] 100 mg Capsule 100 mg PO QAM dexlansoprazole [Dexilant] 60 mg capsule,biphase delayed releas 60 mg PO DAILYBB cyanocobalamin (vitamin B-12) 1,000 mcg Capsule 1,000 mcg PO HS venlafaxine 37.5 mg Capsule,Extended Release 24hr 37.5 mg PO DAILY Lumigan 0.01 % Drops 1 drp OPB HS zinc gluconate 50 mg Tablet 50 mg PO QPM magnesium oxide 400 mg (241.3 mg magnesium) Tablet 400 mg PO QAM albuterol sulfate 90 mcg/actuation Hfa Aerosol Inhaler 2 puff INHALATION Q4H PRN (Reason: Wheezing) azelastine 137 mcg (0.1 %) Aerosol,[place]res[place]ow 2 spray INTRANASAL HS Rx Instructions: administer into each nostril aspirin [Ecotrin Low Strength] 81 mg Tablet,Delayed Release (Dr/Ec) 81 mg PO HS cholecalciferol (vitamin D3) 25 mcg (1,000 unit) Tablet 25 mcg PO QAM ascorbic acid (vitamin C) 500 mg Tablet 500 mg PO QAM oxybutynin chloride 10 mg tablet extended release 24hr 10 mg PO QAM fluticasone propion-salmeterol [Wixela Inhub] 250-50 mcg/dose blister with device 1 inh INHALATION BID ketoconazole 2 % cream 1 applic TOPICAL BID Rx Instructions: apply sparingly to affected area nifedipine 90 mg tablet extended release 24hr 90 mg PO QAM levothyroxine 100 mcg Tablet 100 mcg PO DAILYBB potassium chloride [Klor-Con M10] 10 mEq tablet,ER particles/crystals 20 meq PO BID furosemide 20 mg tablet 20 mg PO DAILY Eliquis 5 mg tablet 5 mg PO Q12 losartan 50 mg tablet 50 mg PO Q12 metoprolol succinate 25 mg tablet extended release 24 hr 25 mg PO Q12 multivitamin with minerals Tablet 1 tab PO DAILY Discharge Orders: Discharge Order (Routine); Ordered 12/24/23 Ordered By: Gio Baltazar Admission Data Admit Date/Time: 12/23/23 03:00 Attending Provider: Gio Baltazar Admit Provider: Panda Arreola Primary Care Provider: PCP,NO Other Providers: Panda Arreola; Jhonatan Nobles [facility]; [facility]
== END 2023-12-24 16:40 ==
LOC: ED 21:57 → INTOOBSV 12-23 03:00 → 3W 12-23 03:00

== ENCOUNTER 2024-02-08 12:37 | Inpatient (IN) ==
[2024-02-08 13:09] LABS: iSTAT Creatinine 0.8 mg/dl (0.6-1.3); iSTAT Hemoglobin 12.2 g/dl (12.0-16.0); iSTAT Ionized Calcium 1.24 mmol/l (1.12-1.32); iSTAT Potassium 6.7 mmol/L (3.3-5.0)
[2024-02-08] MEDS: OPTIRAY 320 100ml IV ONE (13:19)
[2024-02-08 13:21] LABS: Basophils # (auto) 0.02 K/uL (0.00-0.20); Basophils % (auto) 0.3 %; Eosinophils % (auto) 1.4 %; Hematocrit (blood only) 37.2 % (37.0-47.0); Immature Granulocytes % (auto) 1.4 %; Lymphocytes # (auto) 1.39 K/uL (1.20-3.40); Lymphocytes % (auto) 19.8 %; Mean Corpuscular Hemoglobin 29.7 pg (25.0-34.0); Mean Corpuscular Hgb Conc 32.3 g/dL (32.0-36.0); Mean Corpuscular Volume 92.1 fL (80.0-100.0); Mean Platelet Volume 10.9 fL (9.4-12.4); Monocytes # (auto) 0.55 K/uL (0.11-0.59); Monocytes % (auto) 7.8 %; Neutrophils # (auto) 4.86 K/uL (1.40-6.50); Neutrophils % (auto) 69.3 %; Platelet Count 281 K/uL (130-400); RDW Coefficient of Variation 15.6 % (11.5-14.5); RDW Standard Deviation 52.9 fL (36.4-46.3); Red Blood Count 4.04 M/uL (4.20-5.40); White Blood Count 7.02 K/ul (4.8-10.8)
[2024-02-08] MEDS: SODIUM CHLORIDE 0.9% 1,000 ML IV SCH (13:27)
[2024-02-08] MEDS: ACETAMINOPHEN 500 MG TAB PO STA (13:28)
[2024-02-08 13:31] LABS: Albumin Globulin Ratio 1.5 (0.9-2); Albumin Level 3.7 gm/dl (3.4-5.0); BUN Creatinine Ratio 23.6 (10-20); Bilirubin,Total 0.4 mg/dl (0.2-1.0); Calcium 9.5 mg/dl (8.6-10.3); Creatinine Clr Calc Pharmacy 56.8 ml/min; Est GFR (African American) 89.1 ml/min; Est GFR (Non-African American) 76.9 ml/min; Globulin 2.4 gm/dl (2.5-4.0); Magnesium 1.4 mg/dl (1.7-2.4); Potassium 4.6 mmol/L (3.5-5.1); Total Protein 6.1 gm/dl (6.0-8.3)
[2024-02-08 13:35] LABS: Troponin I High Sensitivity 7.6 pg/ml (0-14)
[2024-02-08 13:38] LABS: INR 1.1 (0.9-1.1); Partial Thromboplastin Ratio 1.1; Partial Thromboplastin Time 31 Seconds (21-31); Prothrombin Time 11.7 Seconds (9.0-12.0)
--- NOTE | 2024-02-08 13:46 | CT Scan Report ---
CT ANGIOGRAPHY OF THE NECK WITH CONTRAST CLINICAL HISTORY: neuro deficit, acute stroke suspected COMPARISON STUDY: Carotid ultrasound December 05, 2023. Technique: CT angiography of the carotid and vertebral arteries was obtained using Optiray and 3D rec onstruction on an independent workstation. NASCET criteria was utilized. Automated exposure control was utilized for the study. A dose lowering technique was utilized adhering to the principles of ALA RA. CT DOSE: 994.57 mGy.cm Findings: Visualized portions of the lung apices are unremarkable. No cervical spine fracture is pres ent. The bilateral common carotid, cervical internal carotid and vertebral arteries are patent. There is mild plaque within the right carotid bifurcation and mild to moderate plaque within the left key tid bifurcation without stenosis. The left vertebral artery is dominant. There is no dissection or an eurysm within the neck. IMPRESSION: No stenosis or dissection within the bilateral common carotid, cervical internal carotid or vertebral arteries. ACT 112: Negative or not required by law. Electronically signed by: Guillaume Borrego M.D. 02/08/2024 1:44 PM
--- NOTE | 2024-02-08 13:47 | CT Scan Report ---
CT angio head w con CLINICAL HISTORY: 83 years-old Female with neuro deficit, acute stroke suspected. Acute strokelike symptoms COMPARISON STUDY: CT head and CT neck studies of same day, brain MRI 2023 TECHNIQUE: Following the IV administration of 119 cc of Optiray, CT angiogram of the brain was perfor med from the skull base to the vertex. Images are reviewed in the axial, sagittal, and coronal planes . 3-D MIPS images are created and assessed. IV contrast was administered without complication. All me asurements were obtained according to NASCET criteria. A dose lowering technique was utilized adherin g to the principles of ALARA. FINDINGS: CT ANGIOGRAM OF THE BRAIN: The imaged bilateral internal carotid arteries are patent. The bilateral anterior and middle cerebral arteries are also patent. The vertebrobasilar system and posterior cerebral arteries are widely coleman nt. There is no aneurysm, high-grade stenosis, or proximal branch occlusion identified. Dural sinuses appear patent. Involutional changes with chronic microvascular ischemic disease. Prior bilateral lens repair. Calcif ications of the falx cerebri. IMPRESSION: Unremarkable CTA of the head. ACT 112: Negative or not required by law. The above report was generated using voice recognition software. It may contain grammatical, syntax o r spelling errors. Electronically signed by: Talib Morales M.D. 02/08/2024 1:45 PM
--- NOTE | 2024-02-08 13:51 | XRay Report ---
XR chest 1V portable CLINICAL HISTORY: neuro deficit, acute stroke suspected COMPARISON STUDY: Chest radiograph December 22, 2023. FINDINGS: Lung volumes are normal. Lungs are clear. There is no pneumothorax or pleural effusion. Car diac size is stable. Mediastinal contours are normal. There is no evidence for pulmonary edema. IMPRESSION: No acute cardiopulmonary findings. ACT 112: Negative or not required by law. Electronically signed by: Guillaume Borrego M.D. 02/08/2024 1:49 PM
--- NOTE | 2024-02-08 14:04 | CT Scan Report ---
HEAD CT NONCONTRAST CT DOSE: HISTORY: neuro deficit, acute stroke suspected TECHNIQUE: Multiaxial CT images of the head were performed without the use of intravenous contrast. A utomated exposure control was utilized for this study. A dose lowering technique was utilized adheri ng to the principles of ALARA. Comparison: Head CT 12/02/2023. Findings: The paranasal sinuses and mastoid air cells are clear. The calvarium and skull base are int act. There is no mass, hematoma, midline shift, acute infarct. White matter hypodensity is nonspecifi c but suggestive of microvascular ischemic change. The ventricles and sulci demonstrate mild age-rela austen involutional changes. Impression: No acute intracranial abnormality. Atrophy and microvascular ischemic changes. ACT 112: Negative or not required by law. Electronically signed by: Charlie Atkinson M.D. 02/08/2024 2:03 PM
--- NOTE | 2024-02-08 15:08 | History & Physical Report ---
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 Strokelike symptoms H/o cardioembolic CVA in Nov 2023 Dysarthria, acute on chronic LLE weakness x [address] head without acute intracranial abnormality. Atrophy and microvascular ischemic changes noted CTA head/neck unremarkable In setting of recent cardioembolic stroke in November 2023, has been taking Eliquis as prescribed Will admit for stroke eval. discussed with Dr. Hilario of neurology, who agrees with obtaining brain MRI, echo with bubble study Continue Eliquis statin PT/OT/speech eval as per stroke set Advance diet as tolerated Hypomagnesemia Mag 1.4 on admission Replaced. Repeat lab in AM Chronic diastolic heart failure Last EF 65 to 70%, TTE 2023 Appears euvolemic CXR without acute cardiopulmonary changes CAD S/P stent Continue statin, Lopressor, losartan Paroxysmal atrial fibrillation On metoprolol for rate control Continue Eliquis for anticoagulation Hypertension Slightly elevated on admission. Continue Lopressor, nifedipine, losartan Hyperlipidemia Continue atorvastatin DEMARIO CPAP HS DM II Last HbA1c 6.3 Hold home agents SSI while in-patient BSG AC HS Hypothyroidism Continue levothyroxine Chronic anemia Hgb 12 (baseline 11-12) Monitor with CBC DVT Ppx: Eliquis Code status: FULL PCP: Luis Dispo: admitted to PCU Patient seen in collaboration with Dr. Caro. Please see addendum. I spent a total of 70 minutes coordinating, documenting, and providing care for this patient excluding time spent in the performance of separately billed services. History of Present Illness Chief Complaint: Weakness, dysarthria Primary Care Provider: NO PCP This is an 83-year-old female with PMH of recent embolic stroke on Eliquis, paroxysmal atrial fibrillation, chronic diastolic heart failure (EF: 65-70%, TTE 2023), type 2 diabetes, hypothyroidism, dyslipidemia, DEMARIO on CPAP, mood disorder and other medical problems listed below who presents with dysarthria and worsening left-sided weakness over the past 3 days. Patient notes she has had difficulty "getting her words out" over the past few days. Has also noted increased weakness on the left side, particularly her left foot, when ambulating with walker. Have left-sided weakness as a deficit from her cardioembolic stroke in November, but that had improved over time with therapy until this past Wednesday. Also notes a new tremor in her right foot that son noted is new in the past few days. Did have a left foot tremor noted during the November timeframe of her stroke. Home health nurse came today to check on patient and felt she may have a left facial droop with new drooling, as well as dysarthric speech and sent her in for further evaluation. Son at bedside also endorses that patient is having a more difficult time getting her words out than her baseline. Denies any confusion. No fever, chills, lightheadedness, chest pain, shortness of breath, nausea, vomiting, abdominal pain, dysuria, diarrhea or constipation. Has been taking all medications as prescribed including Eliquis last this morning. Allergies Allergy/AdvReac Type Severity Reaction Status Date / Time paroxetine Allergy Severe ANAPHYLAXIS Verified 02/08/24 13:35 mold Allergy Intermediate asthma Verified 02/08/24 13:35 symptoms pollen extracts Allergy Intermediate asthma Verified 02/08/24 13:35 symptoms Penicillins Allergy Mild Unknown Verified 02/08/24 13:35 vasquez AdvReac Intermediate gas and Verified 02/08/24 13:35 bloating with consuption of green or kidneys beans broccoli AdvReac Intermediate GAS Verified 02/08/24 13:35 crab AdvReac Intermediate diarrhea Verified 02/08/24 13:35 grapefruit AdvReac Intermediate BRONCHITIS Verified 02/08/24 13:35 orange AdvReac Intermediate BRONCHITIS Verified 02/08/24 13:35 peanut AdvReac Intermediate gas/bloatin Verified 02/08/24 13:35 g Home Medications Medication Instructions Recorded Confirmed Type atorvastatin 20 mg tablet 20 mg PO HS 08/22/19 02/08/24 History coenzyme Q10 100 mg capsule 100 mg PO QAM 08/22/19 02/08/24 History (CoQ-10) cyanocobalamin (vitamin B-12) 1,000 mcg PO HS 08/22/19 02/08/24 History 1,000 mcg capsule dexlansoprazole 60 mg 60 mg PO DAILYBB 08/22/19 02/08/24 History capsule,biphase delayed release (Dexilant) fluticasone propionate 50 2 spray intranasal QAM 08/22/19 02/08/24 History mcg/actuation nasal spray,suspension metformin 850 mg tablet 850 mg PO BIDM 08/22/19 02/08/24 History montelukast 10 mg tablet 10 mg PO HS 08/22/19 02/08/24 History bimatoprost 0.01 % eye drops 1 drp OPB HS 05/08/22 02/08/24 History (Sahraigan) albuterol sulfate 90 mcg/actuation 2 puff inhalation Q4H PRN Wheezing 10/23/23 02/08/24 History aerosol inhaler ascorbic acid (vitamin C) 500 mg 500 mg PO QAM 10/23/23 02/08/24 History tablet aspirin 81 mg tablet,delayed 81 mg PO HS 10/23/23 02/08/24 History release (Ecotrin Low Strength) azelastine 137 mcg (0.1 %) nasal 2 spray intranasal HS 10/23/23 02/08/24 History spray aerosol cholecalciferol (vitamin D3) 25 25 mcg PO QAM 10/23/23 02/08/24 History mcg (1,000 unit) tablet fluticasone 250 mcg-salmeterol 50 1 inh inhalation BID 10/23/23 02/08/24 History mcg/dose blistr powdr for inhalation (Wixela Inhub) magnesium oxide 400 mg (241.3 mg 400 mg PO QAM 10/23/23 02/08/24 History magnesium) tablet oxybutynin chloride 10 mg 10 mg PO QAM 10/23/23 02/08/24 History tablet,extended release 24 hr zinc gluconate 50 mg tablet 50 mg PO QPM 10/23/23 02/08/24 History ketoconazole 2 % topical cream 1 applic topical BID 12/02/23 02/08/24 History levothyroxine 100 mcg tablet 100 mcg PO DAILYBB 12/02/23 02/08/24 History nifedipine 90 mg tablet,extended 90 mg PO DAILY 12/02/23 02/08/24 History release 24 hr potassium chloride 10 mEq 20 meq PO BID 12/03/23 02/08/24 History tablet,extended release(part/cryst) (Klor-Con M) apixaban 5 mg tablet (Eliquis) 5 mg PO Q12 12/23/23 02/08/24 History losartan 100 mg tablet 100 mg PO DAILY 02/08/24 02/08/24 History metoprolol tartrate 25 mg tablet 25 mg PO BID 02/08/24 02/08/24 History aghcvoqfipgy-hhznnywd-hsgoqv tablet 1 tab PO DAILY 02/08/24 02/08/24 History sodium chloride 1,000 mg soluble 1,000 mg PO BID 02/08/24 02/08/24 History tablet Past Med/Surg History Medical History Right rotator cuff tear Right knee DJD CAD (coronary artery disease) stent in 1999 T2DM (type 2 diabetes mellitus) HTN (hypertension) HLD (hyperlipidemia) PAF (paroxysmal atrial fibrillation) DEMARIO (obstructive sleep apnea) Asthma CKD (chronic kidney disease) stage 3, GFR 30-59 ml/min Primary open angle glaucoma GERD (gastroesophageal reflux disease) Hypothyroidism History of placement of stent in LAD coronary artery Sleep apnea Surgical History History of rotator cuff surgery History of cataract extraction History of arthroscopic knee surgery History of tonsillectomy History of appendectomy Stented coronary artery Family History Father CHF (congestive heart failure) Mother Cancer Social History Smoking Status: Never smoker Second Hand Exposure: No; Do You Dip or Chew Tobacco: No; Tobacco Cessation Education Requested by Patient: No Hx Alcohol Use: No Hx Substance Use: No Preferred Language: Thai Communication Ability: Effective Exterior Interior Specialist Required: No Beliefs That Will Affect Care: None marital status: Life Partner Current Living Situation: Significant Other Current Living Situation Comment: s/o Other Information That Helps Us Care for You: No Feels Safe at Home: Yes Safety Concerns: Feels Safe At This Time Assistive Devices: CPAP and Glasses Review of Systems Review of Systems: At least ten systems reviewed and negative except as noted in the HPI. Physical Exam Physical Exam: General Appearance: WD/WN, vitals as above, NAD, sitting up in bed, pleasant, conversing easily Head: normocephalic, atraumatic Eyes: normal inspection, PERRL, conjunctivae normal, anicteric sclerae ENT: external ear and nose normal, oropharynx normal Neck: normal visual inspection, trachea midline, no thyromegaly Respiratory: normal respiratory effort, lungs clear to auscultation, no wheeze, rales, rhonchi. No accessory muscle use Cardiovascular: regular rate, rhythm, no murmur, normal peripheral pulses, no BLE edema. Vessels: no JVD Chest: normal inspection of chest Abdomen/GI: normal bowel sounds, soft, nontender, no hepatosplenomegaly Extremities/Musculoskeletal: no cyanosis or clubbing, extremities motor strength 5/5 (4/5 R shoulder 2/2 former injury) Neurologic: PERRL, EOMI, accommodation nl, no face palsy, + dysarthria, CN's II-XI intact bilaterally and moves all extremities Psychiatric: A+Ox3, euthymic affect Skin: no rashes, normal color, warm/dry Results & Data Results & Data Vital Signs (Past 12 Hours) Vital Signs Temp Pulse Pulse Resp BP Pulse Ox O2 Del Method 02/08/24 14:28 62 16 97 Room Air 02/08/24 12:59 96 Room Air 02/08/24 12:59 36.6 C 58 L 15 190/74 H 97 Room Air 02/08/24 12:54 59 L O2 Flow Rate 02/08/24 14:28 02/08/24 12:59 0 02/08/24 12:59 02/08/24 12:54 Laboratory Results Short CBC 02/08/24 Range/Units 12:52 WBC 7.02 (4.8-10.8) K/ul Hgb 12.0 (12.0-16.0) g/dl Hct 37.2 (37.0-47.0) % Plt Count 281 (130-400) K/uL BMP 02/08/24 12:52 Sodium 138 Potassium 4.6 Chloride 107 Carbon Dioxide 26 BUN 17 Creatinine 0.72 Glucose 106 H Calcium 9.5 Liver Function 02/08/24 Range/Units 12:52 Total Bilirubin 0.4 (0.2-1.0) mg/dl AST 12 L (13-39) U/L ALT 9 (7-52) U/L Alkaline Phosphatase 51 (34-104) U/L Albumin 3.7 (3.4-5.0) gm/dl Diagnostic Findings Chest X-Ray 02/08/24 12:41 XR chest 1V portable CLINICAL HISTORY: neuro deficit, acute stroke suspected COMPARISON STUDY: Chest radiograph December 22, 2023. FINDINGS: Lung volumes are normal. Lungs are clear. There is no pneumothorax or pleural effusion. Cardiac size is stable. Mediastinal contours are normal. There is no evidence for pulmonary edema. IMPRESSION: No acute cardiopulmonary findings. ACT 112: Negative or not required by law. Electronically signed by: Guillaume Borrego M.D. 02/08/2024 1:[address] 02/08/24 12:[address] DOSE: HISTORY: neuro deficit, acute stroke suspected TECHNIQUE: Multiaxial CT images of the head were performed without the use of intravenous contrast. Automated exposure control was utilized for this study. A dose lowering technique was utilized adhering to the principles of ALARA. Comparison: Head CT 12/02/2023. Findings: The paranasal sinuses and mastoid air cells are clear. The calvarium and skull base are intact. There is no mass, hematoma, midline shift, acute infarct. White matter hypodensity is nonspecific but suggestive of microvascular ischemic change. The ventricles and sulci demonstrate mild age-related involutional changes. Impression: No acute intracranial abnormality. Atrophy and microvascular ischemic changes. ACT 112: Negative or not required by law. Electronically signed by: Charlie Atkinson M.D. 02/08/2024 2:03 PM Head CTA 02/08/24 12:41 CT angio head w con CLINICAL HISTORY: 83 years-old Female with neuro deficit, acute stroke suspected. Acute strokelike symptoms COMPARISON STUDY: CT head and CT neck studies of same day, brain MRI 2023 TECHNIQUE: Following the IV administration of 119 cc of Optiray, CT angiogram of the brain was performed from the skull base to the vertex. Images are reviewed in the axial, sagittal, and coronal planes. 3-D MIPS images are created and assessed. IV contrast was administered without complication. All measurements were obtained according to NASCET criteria. A dose lowering technique was utilized adhering to the principles of ALARA. FINDINGS: CT ANGIOGRAM OF THE BRAIN: The imaged bilateral internal carotid arteries are patent. The bilateral anterior and middle cerebral arteries are also patent. The vertebrobasilar system and posterior cerebral arteries are widely patent. There is no aneurysm, high-grade stenosis, or proximal branch occlusion identified. Dural sinuses appear patent. Involutional changes with chronic microvascular ischemic disease. Prior bilateral lens repair. Calcifications of the falx cerebri. IMPRESSION: Unremarkable CTA of the head. ACT 112: Negative or not required by law. The above report was generated using voice recognition software. It may contain grammatical, syntax or spelling errors. Electronically signed by: Talib Morales M.D. 02/08/2024 1:45 PM Neck CTA 02/08/24 12:41 CT ANGIOGRAPHY OF THE NECK WITH CONTRAST CLINICAL HISTORY: neuro deficit, acute stroke suspected COMPARISON STUDY: Carotid ultrasound December 05, 2023. Technique: CT angiography of the carotid and vertebral arteries was obtained using Optiray and 3D reconstruction on an independent workstation. NASCET criteria was utilized. Automated exposure control was utilized for the study. A dose lowering technique was utilized adhering to the principles of ALARA. CT DOSE: 994.57 mGy.cm Findings: Visualized portions of the lung apices are unremarkable. No cervical spine fracture is present. The bilateral common carotid, cervical internal car otid and vertebral arteries are patent. There is mild plaque within the right carotid bifurcation and mild to moderate plaque within the left carotid bifurcation without stenosis. The left vertebral artery is dominant. There is no dissection or aneurysm within the neck. IMPRESSION: No stenosis or dissection within the bilateral common carotid, cervical internal carotid or vertebral arteries. ACT 112: Negative or not required by law. Electronically signed by: Guillaume Borrego M.D. 02/08/2024 1:44 PM Code Status & VTE Plan VTE Prophylaxis Plan VTE Prophylaxis will be ordered: Yes Supervising Physician Co-Signing Physician Notes I have seen and examined the patient and have discussed the case with the provider above. I have reviewed the advanced practitioner's documentation, and I agree with, and take responsibility for that plan of care. Patient is an 83-year-old female with recent admission for embolic stroke causing dysarthria and left sided tingling/weakness. She went to [facility] and was feeling better however in the last 3 days she wrote a worsening of those original strokelike symptoms. MRI of the brain was performed this evening and is negative for acute intracranial pathology. She has been compliant with her Eliquis since it was prescribed. She has no respiratory symptoms or underlying pulmonary infection but does mention pinching pain when urinating and an increased urinary urgency. UA is supportive of a possible UTI which may worsen any initial strokelike symptoms if present. Empiric Rocephin was started. Otherwise on exam she is hemodynamically stable and afebrile oxygenating well on room air. She is alert and oriented and answering questions without much difficulty although there is some dysarthria noted. She does have full strength in her left upper and lower extremity including dorsi and plantarflexion and DTRs are 2+ in the knees bilaterally. Sensation is diminished on the left upper extremity compared to left right and on the left lower extremity compared to the right below the knees. Gait was not assessed. Cranial nerves II through XII are grossly intact throughout. There is no evidence of facial palsy. EOMI. Continue plan as noted above for strokelike symptoms and appreciate neurology recommendations. Workup so far is negative this admission. Agree with replacement of magnesium. Will see if empiric treatment with antibiotic improves her symptoms and watch for culture results of her urine. Allow permissive hypertension initially. DO [place] (3) HTN (hypertension) Hypertension type: primary hypertension Qualified Code(s): I10 - Essential (primary) hypertension (5) CAD (coronary artery disease) Associated angina: without angina Coronary Disease-Associated Artery/Lesion type: [place] artery [place] vs. transplanted heart: [place] heart Qualified Code(s): I25.10 - Atherosclerotic heart disease of [place] coronary artery without angina pectoris
--- NOTE | 2024-02-08 15:24 | Emergency Department Note ---
Impression & Plan Stroke-like symptoms, Hypomagnesemia ED Provider Note NAME: ERNIE WELLER AGE: 83 SEX: Female INFORMANT: Patient, family and EMS ED PROVIDER(S): Vitaly Brown MD CHIEF COMPLAINT: Strokelike symptoms PLAN: Disposition: Admitted Outpatient prescription management: none Referral: None MEDICAL DECISION MAKING: Patient presented because of strokelike symptoms. Symptoms started 3 days ago and patient is not within the window for thrombolytic care. She does have a concerning history. EMS and family noted that she did have a change from her baseline. Stroke workup was performed. Patient did have some slight facial droop on the left side as well as weakness in the left leg. Her CT and CT angiography did not reveal any gross abnormalities. The patient ECG did not reveal any acute findings noted cardiac monitoring. Patient CBC and chemistry panel were unremarkable except for hypomagnesemia. Patient was given IV magnesium. Patient has a negative ESR. She was given Tylenol for headache and did feel much better on reassessment. Urinalysis is pending at this time. The patient will need further management in the hospital. Consultation was made with the [facility] Hospitalist service. Patient was evaluated in the ER admitted for further management. Care/management discussed with: manager security and safety Level of care consideration(s): After review of the information above and other included data, I feel the patient requires escalation of care and admission. Triage Nursing notes: reviewed and agree them. Vital Signs: reviewed and remarkable for no significant abnormalities Additional History obtained from: Patient's son as well as EMS. Speech is off as well as left-sided weakness. Chronic Medical/Social Conditions affecting care: History of CVA, hypertension, diabetes Prior/ Outside/ External records reviewed: none Differential Diagnosis: CVA, TIA, Infection, dehydration, metabolic abnormality, hypo/hyperglycemia, electrolyte disturbance, anemia, hypoxia, cardiac sources, intracerebral event, toxicologic, neurologic, as well as other pathologies. Diagnostics, independently interpreted by me: ECG: Twelve-lead ECG reveals a sinus bradycardia 59 bpm. Septal Q wave. No ST elevation. Cardiac Monitoring: Cardiac monitoring ordered by me: The patient was placed on continuous cardiac monitoring and observed. It revealed a normal sinus rhythm at 62 beats per minute without ectopy or evidence of dysrhythmia. Medical decision rules: none Imaging studies: Head CT: A noncontrast CT scan of the head was performed and was negative for tumor, fracture, intracranial hemorrhage, or other acute pathology. HPI: 83 year old Female arrives for evaluation of strokelike symptoms. This started 3 days ago and is persisting. The patient also notes the following associated symptoms, left-sided facial droop, difficulty speaking, and increased left leg weakness. Patient has a history of stroke with residual left leg weakness but notes this is worse she also notes having a mild headache in the right eyebrow/periorbital region. The patient has taken no medication for relieving factors. Current pain is rated as 5/10. Pt denies LOC, fevers, chills, diaphoresis, visual changes, neck pain, chest pain, breathing difficulties, nausea, vomiting, abdominal pain, back pain, melena, hematochezia, urinary symptoms, numbness, lymphadenopathy, rash, or other complaints. PAST MEDICAL HISTORY: See Below, CVA, hypertension, diabetes PAST SURGICAL HISTORY: See Below, SOCIAL HISTORY: See Below, retired HOME MEDICATIONS: See Below ALLERGIES: See Below VITALS: See Below PHYSICAL EXAMINATION: GENERAL: Awake, tired appearing, in no distress HENT: Normocephalic, atraumatic. Oropharynx unremarkable. Mild tenderness over the right eyebrow and synagogue area. No sign of shingles. No point tenderness over the temporal artery distribution. EYES: Normal conjunctiva. Sclera non-icteric. NECK: Inspection normal. Non-tender. Supple. No nuchal rigidity. FROM. No masses. RESPIRATORY: Clear to auscultation. No wheezes. No rales. Normal respiratory effort. CARDIAC: Normal rate. Normal rhythm. No murmurs. No rubs. Extremities warm and well perfused. Pulses equal. No JVD. GI: Soft, non-distended. No tenderness to palpation. No rebound or guarding. No masses. RECTAL: Deferred. MUSCULOSKELETAL: Atraumatic. Chest examination reveals no tenderness. The back is symmetrical on inspection without obvious abnormality. There is no CVA tenderness to palpation. No joint edema. LOWER EXTREMITIES: Calves are equal size bilaterally and non-tender. No edema. No discoloration. NEURO: Normal sensorium. No sensory or motor deficits noted except for very subtle left facial droop and slight asymmetry with weakness in the left lower extremity. Some slight difficulty with word finding. SKIN: No rash or jaundice noted. PROCEDURES: none CRITICAL CARE: none OBSERVATION NOTE: none Past Med/Surg History Medical History Right rotator cuff tear Right knee DJD CAD (coronary artery disease) stent in 1999 T2DM (type 2 diabetes mellitus) HTN (hypertension) HLD (hyperlipidemia) PAF (paroxysmal atrial fibrillation) DEMARIO (obstructive sleep apnea) Asthma CKD (chronic kidney disease) stage 3, GFR 30-59 ml/min Primary open angle glaucoma GERD (gastroesophageal reflux disease) Hypothyroidism History of placement of stent in LAD coronary artery Sleep apnea Surgical History History of rotator cuff surgery History of cataract extraction History of arthroscopic knee surgery History of tonsillectomy History of appendectomy Stented coronary artery Family History Father CHF (congestive heart failure) Mother Cancer Social History Smoking Status: Never smoker Hx Alcohol Use: No Hx Substance Use: No Preferred Language: Greek Communication Ability: Effective Obgyn Hospitalist Physician Required: No Beliefs That Will Affect Care: None marital status: Life Partner Current Living Situation: Significant Other Current Living Situation Comment: s/o Feels Safe at Home: Yes Assistive Devices: Cane and Walker Allergies Allergies Allergy/AdvReac Type Severity Reaction Status Date / Time paroxetine Allergy Severe ANAPHYLAXIS Verified 02/08/24 13:35 mold Allergy Intermediate asthma Verified 02/08/24 13:35 symptoms pollen extracts Allergy Intermediate asthma Verified 02/08/24 13:35 symptoms Penicillins Allergy Mild Unknown Verified 02/08/24 13:35 vasquez AdvReac Intermediate gas and Verified 02/08/24 13:35 bloating with consuption of green or kidneys beans broccoli AdvReac Intermediate GAS Verified 02/08/24 13:35 crab AdvReac Intermediate diarrhea Verified 02/08/24 13:35 grapefruit AdvReac Intermediate BRONCHITIS Verified 02/08/24 13:35 orange AdvReac Intermediate BRONCHITIS Verified 02/08/24 13:35 peanut AdvReac Intermediate gas/bloatin Verified 02/08/24 13:35 g Home Meds Home Medications Medication Instructions Recorded Confirmed atorvastatin 20 mg tablet 20 mg PO HS 08/22/19 02/08/24 coenzyme Q10 100 mg capsule 100 mg PO QAM 08/22/19 02/08/24 (CoQ-10) cyanocobalamin (vitamin B-12) 1,000 mcg PO HS 08/22/19 02/08/24 1,000 mcg capsule dexlansoprazole 60 mg 60 mg PO DAILYBB 08/22/19 02/08/24 capsule,biphase delayed release (Dexilant) fluticasone propionate 50 2 spray intranasal QAM 08/22/19 02/08/24 mcg/actuation nasal spray,suspension metformin 850 mg tablet 850 mg PO BIDM 08/22/19 02/08/24 montelukast 10 mg tablet 10 mg PO HS 08/22/19 02/08/24 venlafaxine 37.5 mg 37.5 mg PO DAILY 08/24/19 02/08/24 capsule,extended release 24 hr bimatoprost 0.01 % eye drops 1 drp OPB HS 05/08/22 02/08/24 (Lumigan) albuterol sulfate 90 mcg/actuation 2 puff inhalation Q4H PRN Wheezing 10/23/23 02/08/24 aerosol inhaler ascorbic acid (vitamin C) 500 mg 500 mg PO QAM 10/23/23 02/08/24 tablet aspirin 81 mg tablet,delayed 81 mg PO HS 10/23/23 02/08/24 release (Ecotrin Low Strength) azelastine 137 mcg (0.1 %) nasal 2 spray intranasal HS 10/23/23 02/08/24 spray aerosol cholecalciferol (vitamin D3) 25 25 mcg PO QAM 10/23/23 02/08/24 mcg (1,000 unit) tablet fluticasone 250 mcg-salmeterol 50 1 inh inhalation BID 10/23/23 02/08/24 mcg/dose blistr powdr for inhalation (Wixela Inhub) magnesium oxide 400 mg (241.3 mg 400 mg PO QAM 10/23/23 02/08/24 magnesium) tablet oxybutynin chloride 10 mg 10 mg PO QAM 10/23/23 02/08/24 tablet,extended release 24 hr zinc gluconate 50 mg tablet 50 mg PO QPM 10/23/23 02/08/24 ketoconazole 2 % topical cream 1 applic topical BID 12/02/23 02/08/24 levothyroxine 100 mcg tablet 100 mcg PO DAILYBB 12/02/23 02/08/24 nifedipine 90 mg tablet,extended 90 mg PO QAM 12/02/23 02/08/24 release 24 hr potassium chloride 10 mEq 20 meq PO BID 12/03/23 02/08/24 tablet,extended release(part/cryst) (Klor-Con M) apixaban 5 mg tablet (Eliquis) 5 mg PO Q12 12/23/23 02/08/24 losartan 100 mg tablet 100 mg PO QAM 02/08/24 02/08/24 metoprolol tartrate 25 mg tablet 12.5 mg PO BID 02/08/24 02/08/24 henbfwleubse-sxblicjl-dlfilk tablet 1 tab PO DAILY 02/08/24 02/08/24 sodium chloride 1,000 mg soluble 1,000 mg PO BID 02/08/24 02/08/24 tablet Results & Data (ED) Vital Signs Vital Signs - 24 hr 02/08/24 12:54 02/08/24 12:59 02/08/24 12:59 Temperature 36.6 C Temperature Source Oral Pulse Rate 59 L 58 L Pulse Rate [Apical] Respiratory Rate 15 Respiratory Depth Normal Blood Pressure 190/74 H Blood Pressure Mean 112 Pulse Oximetry 97 96 Oxygen Delivery Method Room Air Room Air Oxygen Flow Rate 0 Sepsis Recent Fever Within 48 Hours No Sepsis New/Unexplained Change in Mental Status No Sepsis Action Taken by Nursing No Action Required 02/08/24 14:28 Temperature Temperature Source Pulse Rate Pulse Rate [Apical] 62 Respiratory Rate 16 Respiratory Depth Blood Pressure Blood Pressure Mean Pulse Oximetry 97 Oxygen Delivery Method Room Air Oxygen Flow Rate Sepsis Recent Fever Within 48 Hours Sepsis New/Unexplained Change in Mental Status Sepsis Action Taken by Nursing Laboratory Data 02/08/24 12:52 02/08/24 12:52 Lab Results 02/08/24 02/08/24 Range/Units 12:52 12:53 WBC 7.02 (4.8-10.8) K/ul RBC 4.04 L (4.20-5.40) M/uL Hgb 12.0 (12.0-16.0) g/dl POC Hgb 12.2 (12.0-16.0) g/dl Hct 37.2 (37.0-47.0) % POC Hct 36 L (37-47) % MCV 92.1 (80.0-100.0) fL MCH 29.7 (25.0-34.0) pg MCHC 32.3 (32.0-36.0) g/dL RDW Std Deviation 52.9 H (36.4-46.3) fL RDW Coeff of Stoney 15.6 H (11.5-14.5) % Plt Count 281 (130-400) K/uL MPV 10.9 (9.4-12.4) fL Immature Gran % (Auto) 1.4 % Neut % (Auto) 69.3 % Lymph % (Auto) 19.8 % [place] % (Auto) 7.8 % Eos % (Auto) 1.4 % Baso % (Auto) 0.3 % Neut # (Auto) 4.86 (1.40-6.50) K/uL Lymph # (Auto) 1.39 (1.20-3.40) K/uL [place] # (Auto) 0.55 (0.11-0.59) K/uL Eos # (Auto) 0.10 (0.00-0.50) K/uL Baso # (Auto) 0.02 (0.00-0.20) K/uL Immature Gran # (Auto) 0.10 (0.01-0.20) K/uL ESR 27 (0-30) mm/hr PT 11.7 (9.0-12.0) Seconds INR 1.1 (0.9-1.1) APTT 31 (21-31) Seconds PTT Ratio 1.1 POC Sodium 137 (135-144) mmol/L Sodium 138 (136-145) mmol/L POC Potassium 6.7 H* (3.3-5.0) mmol/L Potassium 4.6 (3.5-5.1) mmol/L POC Chloride 106 (101-112) mmol/L Chloride 107 (98-107) mmol/L Carbon Dioxide 26 (21-32) mmol/L POC Total CO2 28 (24-31) mmol/L Anion Gap 5 (3-11) POC Anion Gap 11.0 L (16-25) mmol/L POC BUN 24 H (7-18) mg/dl BUN 17 (6-23) mg/dl Creatinine 0.72 (0.6-1.2) mg/dl POC Creatinine 0.8 (0.6-1.3) mg/dl Est Cr Clr Drug Dosing 56.8 ml/min Est GFR ( Amer) 89.1 ml/min Est GFR (Non-Af Amer) 76.9 ml/min BUN/Creatinine Ratio 23.6 H (10-20) Glucose 106 H (70-99(Fasting)) mg/dl POC Glucose (other) 105 H (70-99) mg/dl Calcium 9.5 (8.6-10.3) mg/dl POC Ioniz Calcium Geni 1.24 (1.12-1.32) mmol/l Magnesium 1.4 L (1.7-2.4) mg/dl Total Bilirubin 0.4 (0.2-1.0) mg/dl AST 12 L (13-39) U/L ALT 9 (7-52) U/L Alkaline Phosphatase 51 (34-104) U/L Troponin I High Sens 7.6 (0-14) pg/ml Total Protein 6.1 (6.0-8.3) gm/dl Albumin 3.7 (3.4-5.0) gm/dl Globulin 2.4 L (2.5-4.0) gm/dl Albumin/Globulin Ratio 1.5 (0.9-2) Blood Type B Positive Antibody Screen NEGATIVE Administered Medications Sodium Chloride (Nss) 1,000 mls @ 50 mls/hr IV .Q20H ALYSA Stop: 03/09/24 12:44 Last Admin: 02/08/24 13:27 Dose: 50 mls/hr Documented By: DAVIS Co-signed By: SAUMYA Discontinued Medications Acetaminophen (Acetaminophen 500 Mg Tab) 1,000 mg PO NOW STA Stop: 02/08/24 12:43 Last Admin: 02/08/24 13:28 Dose: 1,000 mg Documented By: DAVIS Co-signed By: SAUMYA Ioversol (Optiray 320 100ml) 119 ml IV ONCE ONE Stop: 02/08/24 13:25 Last Admin: 02/08/24 13:19 Dose: 119 ml Documented By: RY Imaging Data Radiologist's Impression: Chest X-Ray 02/08/24 12:41 XR chest 1V portable CLINICAL HISTORY: neuro deficit, acute stroke suspected COMPARISON STUDY: Chest radiograph December 22, 2023. FINDINGS: Lung volumes are normal. Lungs are clear. There is no pneumothorax or pleural effusion. Cardiac size is stable. Mediastinal contours are normal. There is no evidence for pulmonary edema. IMPRESSION: No acute cardiopulmonary findings. ACT 112: Negative or not required by law. Electronically signed by: Guillaume Borrego M.D. 02/08/2024 1:[address] 02/08/24 12:[address] DOSE: HISTORY: neuro deficit, acute stroke suspected TECHNIQUE: Multiaxial CT images of the head were performed without the use of intravenous contrast. Automated exposure control was utilized for this study. A dose lowering technique was utilized adhering to the principles of ALARA. Comparison: Head CT 12/02/2023. Findings: The paranasal sinuses and mastoid air cells are clear. The calvarium and skull base are intact. There is no mass, hematoma, midline shift, acute infarct. White matter hypodensity is nonspecific but suggestive of microvascular ischemic change. The ventricles and sulci demonstrate mild age-related involutional changes. Impression: No acute intracranial abnormality. Atrophy and microvascular ischemic changes. ACT 112: Negative or not required by law. Electronically signed by: Charlie Atkinson M.D. 02/08/2024 2:03 PM Head CTA 02/08/24 12:41 CT angio head w con CLINICAL HISTORY: 83 years-old Female with neuro deficit, acute stroke suspected. Acute strokelike symptoms COMPARISON STUDY: CT head and CT neck studies of same day, brain MRI 2023 TECHNIQUE: Following the IV administration of 119 cc of Optiray, CT angiogram of the brain was performed from the skull base to the vertex. Images are reviewed in the axial, sagittal, and coronal planes. 3-D MIPS images are created and assessed. IV contrast was administered without complication. All measurements were obtained according to NASCET criteria. A dose lowering technique was utilized adhering to the principles of ALARA. FINDINGS: CT ANGIOGRAM OF THE BRAIN: The imaged bilateral internal carotid arteries are patent. The bilateral anterior and middle cerebral arteries are also patent. The vertebrobasilar system and posterior cerebral arteries are widely patent. There is no aneurysm, high-grade stenosis, or proximal branch occlusion identified. Dural sinuses appear patent. Involutional changes with chronic microvascular ischemic disease. Prior bilateral lens repair. Calcifications of the falx cerebri. IMPRESSION: Unremarkable CTA of the head. ACT 112: Negative or not required by law. The above report was generated using voice recognition software. It may contain grammatical, syntax or spelling errors. Electronically signed by: Talib Morales M.D. 02/08/2024 1:45 PM Neck CTA 02/08/24 12:41 CT ANGIOGRAPHY OF THE NECK WITH CONTRAST CLINICAL HISTORY: neuro deficit, acute stroke suspected COMPARISON STUDY: Carotid ultrasound December 05, 2023. Technique: CT angiography of the carotid and vertebral arteries was obtained using Optiray and 3D reconstruction on an independent workstation. NASCET criteria was utilized. Automated exposure control was utilized for the study. A dose lowering technique was utilized adhering to the principles of ALARA. CT DOSE: 994.57 mGy.cm Findings: Visualized portions of the lung apices are unremarkable. No cervical spine fracture is present. The bilateral common carotid, cervical internal carotid and vertebral arteries are patent. There is mild plaque within the right carotid bifurcation and mild to moderate plaque within the left carotid bifurcation without stenosis. The left vertebral artery is dominant. There is no dissection or aneurysm within the neck. IMPRESSION: No stenosis or dissection within the bilateral common carotid, cervical internal carotid or vertebral arteries. ACT 112: Negative or not required by law. Electronically signed by: Guillaume Borrego M.D. 02/08/2024 1:44 PM Discharge Plan Visit Data Chief Complaint: Stroke/CVA Symptoms ED Provider: Vitaly Brown Discharge Problem: Stroke-like symptoms, Hypomagnesemia Forms Stand Alone Forms: My [facility] Prescriptions Prescriptions: No Action atorvastatin 20 mg tablet 20 mg PO HS montelukast 10 mg tablet 10 mg PO HS metformin 850 mg tablet 850 mg PO BIDM fluticasone propionate 50 mcg/actuation spray,suspension 2 spray intranasal QAM coenzyme Q10 [CoQ-10] 100 mg Capsule 100 mg PO QAM dexlansoprazole [Dexilant] 60 mg capsule,biphase delayed releas 60 mg PO DAILYBB cyanocobalamin (vitamin B-12) 1,000 mcg Capsule 1,000 mcg PO HS venlafaxine 37.5 mg Capsule,Extended Release 24hr 37.5 mg PO DAILY Rx Instructions: PER EXT MED HX, FILLED 11/15/23 FOR 90 DAYS. NOT ON [facility] MED LIST Lumigan 0.01 % Drops 1 drp OPB HS zinc gluconate 50 mg Tablet 50 mg PO QPM magnesium oxide 400 mg (241.3 mg magnesium) Tablet 400 mg PO QAM albuterol sulfate 90 mcg/actuation Hfa Aerosol Inhaler 2 puff INHALATION Q4H PRN (Reason: Wheezing) azelastine 137 mcg (0.1 %) Aerosol,[place] 2 spray INTRANASAL HS Rx Instructions: administer into each nostril aspirin [Ecotrin Low Strength] 81 mg Tablet,Delayed Release (Dr/Ec) 81 mg PO HS cholecalciferol (vitamin D3) 25 mcg (1,000 unit) Tablet 25 mcg PO QAM ascorbic acid (vitamin C) 500 mg Tablet 500 mg PO QAM oxybutynin chloride 10 mg tablet extended release 24hr 10 mg PO QAM fluticasone propion-salmeterol [Wixela Inhub] 250-50 mcg/dose blister with device 1 inh INHALATION BID ketoconazole 2 % cream 1 applic TOPICAL BID Rx Instructions: apply sparingly to affected area nifedipine 90 mg tablet extended release 24hr 90 mg PO QAM levothyroxine 100 mcg Tablet 100 mcg PO DAILYBB potassium chloride [Klor-Con M10] 10 mEq tablet,ER particles/crystals 20 meq PO BID Eliquis 5 mg tablet 5 mg PO Q12 losartan 100 mg tablet 100 mg PO QAM Centrum Silver Tablet 1 tab PO DAILY metoprolol tartrate 25 mg tablet 12.5 mg PO BID Rx Instructions: PER EXT MED HX, PER [facility]--25 MG BID. sodium chloride 1,000 mg tablet,soluble 1,000 mg PO BID Rx Instructions: NOT FILLED SINCE 11/07/23 FOR 30 DAYS. UNSURE IF PT STILL TAKING. Referrals Referrals: PCP,NO [Primary Care Provider] -
[2024-02-08] MEDS: MAGNESIUM SULFATE / D5W 1 GM/100 ML BAG IV SCH (16:10)
[2024-02-08 16:14] LABS: Influenza A virus by PCR Negative (Neg); Influenza B virus by PCR Negative (Neg); RSV by PCR Negative (Neg); SARS CoV2 RNA(COVID-19) Ceph NEGATIVE (Negative)
[2024-02-08 18:40] LABS: Appearance Urine Clear (Clear); Bacteria Urine Automated 1+ (Negative); Bilirubin Urine Negative (Negative); Blood Urine Negative (Negative); Color Urine Yellow; Epithelial Cell Urine Auto 0-5 /lpf (0-5); Glucose Urine UA Negative (Negative); Ketones Urine Negative (Negative); Leukocyte Esterase Urine 1+ (Negative); Nitrite Urine Negative (Negative); Protein Urine Negative (Negative); RBC Urine Automated 0-4 /hpf (0-4); Urobilinogen Urine Negative (Negative); pH Urine 7.5 (4.5-7.5)
[2024-02-08] MEDS ORDERED: ACETAMINOPHEN 325 MG TAB PO PRN (19:35)
[2024-02-08] MEDS ORDERED: PHARMACIST DISCHARGE MED REC CONSULT PRN (19:35)
[2024-02-08] MEDS ORDERED: ONDANSETRON INJ 2 MG/ML 2 ML VIAL IV PRN (19:35)
[2024-02-08] MEDS ORDERED: POLYETHYLENE (MIRALAX) 17 GM PACK PO PRN (19:35)
[2024-02-08] MEDS ORDERED: ALBUTEROL HFA 8 GM INHALER INH PRN (19:35)
[2024-02-08] MEDS ORDERED: GLUCAGON FOR INJ 1 MG VIAL SQ PRN (20:29)
[2024-02-08] MEDS ORDERED: CARBOHYDRATES FOR HYPOGLYCEMIA PO PRN (20:29)
[2024-02-08] MEDS ORDERED: GLUCOSE 40% GEL 15 GM TUBE PO PRN (20:29)
[2024-02-08] MEDS ORDERED: DEXTROSE 50% 50 ML SYRINGE IV PRN (20:29)
[2024-02-08] MEDS ORDERED: GLUCOSE 10 TAB/TUBE PO PRN (20:29)
[2024-02-08] MEDS ORDERED: NIFEdipine EXTENDED REL 30 MG TABCR PO SCH (21:00)
[2024-02-08] MEDS ORDERED: LOSARTAN POTASSIUM 50 MG TAB PO SCH (21:00)
[2024-02-08] MEDS: INSULIN ASPART PER UNIT CHARGE SC SCH (21:58)
[2024-02-08] MEDS: ZINC SULFATE 220 MG CAPSULE PO SCH (22:38)
[2024-02-08] MEDS: APIXABAN 5 MG TABLET PO SCH (22:38)
[2024-02-08] MEDS: METOPROLOL TARTRATE 25 MG TAB PO SCH (22:39)
[2024-02-08] MEDS: SODIUM CHLORIDE 1 GM TABLET PO SCH (22:39)
[2024-02-08] MEDS: CYANOCOBALAMIN (B-12) 500 MCG TABLET PO SCH (22:39)
[2024-02-08] MEDS: MONTELUKAST SODIUM 10 MG TABLET PO SCH (22:39)
[2024-02-08] MEDS: POTASSIUM CHLORIDE CRTAB 20 MEQ TABCR PO SCH (22:39)
[2024-02-08] MEDS: KETOCONAZOLE 2% CR 15 GM TUBE EXT SCH (22:40)
[2024-02-08] MEDS: BIMATOPROST 0.01% OP SOLN 2.5 ML BTL OP SCH (22:41)
[2024-02-08] MEDS: FLUTICASONE/VILANTEROL 200/25MCG 14 PUFFS/INHALER INH SCH (22:41)
[2024-02-08] MEDS: ATORVASTATIN 20 MG TAB PO SCH (22:42)
--- NOTE | 2024-02-08 23:04 | Magnetic Resonance Report ---
Exam(s): MRI HEAD Without Contrast EXAM: MR Head Without Intravenous Contrast CLINICAL HISTORY: Reason for exam: stroke eval. TECHNIQUE: Magnetic resonance images of the head/brain without intravenous contrast in multiple planes. COMPARISON: Comparison made to prior head CT from December 02, 2023. FINDINGS: Brain: Remote ischemic injury of the left capsule. Mild to moderate nonspecific white matter changes. No mass. No hemorrhage. No acute infarct. Ventricles: Moderate ventriculomegaly. Bones/joints: Hyperostosis frontalis interna. Mild to advanced facet arthropathy at C2-3, C3-4 and C4-5.. No acute fracture. Sinuses: Unremarkable as visualized. No acute sinusitis. Mastoid air cells: Unremarkable as visualized. No mastoid effusion. Orbits: Bilateral lens replacements. IMPRESSION: No evidence of acute intracranial pathology. Electronically signed by: Shari Bhagat MD 02/08/24 23:03 PM
[2024-02-09] MEDS: cefTRIAXone SODIUM 1,000 MG in DEXTROSE 5 % MINI-B 50 ML IV SCH (00:08)
--- OUTSIDE RECORDS SUMMARY | 2024-02-09 00:36 | External Medical Summary | Summary of Care ---
Author Name Unknown Organization [facility] Address [address] [place] [address] Phone [phone] Care Team Providers Care Electric Lift Truck Driver Name Role Phone Linda Smith MD Primary Care Provide r Reason for Visit * Reason Onset Date Comments Advice 01/31/2024 Dr. Peacock Medication Refill 01/31/2024 Encounter Details Date Type Department Care Team (Late st Contact Info) Description 01/31/2024 Refill Cardiology, [facility] [address] [place] [address] Chace Peacock, [address] [place] [address] Paroxysmal atrial fibrillation (HCC)* Allergies Active Allergy Reactions Criticality Noted Date Comments Brassica Oleracea 05/17/2020 Other Reaction(s): Gas Crab (Diagnostic) 04/05/2018 Crab Extract Allergy Skin Test 05/17/2020 Other Reaction(s): diarrhea Food (See Comments) 07/24/2015 Broccoli, beans, cauliflower - cause gas Grapefruit, oranges - cause bronchitis - positive skin test Grapefruit Extract 05/17/2020 Other Reaction(s): BRONCHITIS [place] Oil 05/17/2020 Other Reaction(s): BRONCHITIS Paroxetine Hydrochloride 04/03/2009 Penicillins 04/03/2009 Blisters on hands Peanut-Containing Drug Products Abdominal pain Medium 07/24/2015 Gas, bloating Phaseolus 01/10/2024 Other Reaction(s): Bloating, Gas also with green beans documented as of this encounter (statuses as of 01/31/2024) Medications Medication Sig Dispensed Refills Start Date [...] by mouth in the morning. 0 Active triamcinolone acetonide (ARISTOCORT) 0.1 % creamIndications:In trinsic eczema Apply topically to affected area 2 times a day. To affected area. 15 g 5 01/11/2020 Active Magnesium Oxide 400 (240 Mg) MG Tablet Take 1 Tablet by mouth in the morning. 0 Active zinc gluconate 50 MG Tablet Take 1 Tablet by mouth in the morning. 0 Active Albuterol Sulfate HFA 108 (90 Base) [...] TWICE A DAY 0 05/18/2022 Active Nystatin 891574 UNIT/GM External CreamIndications:Ca ndida infection Apply to affected area 2-3 times daily for 5 days 45 g 1 09/17/2022 Active Nystatin 132314 UNIT/GM External Powder (Nystop)Indications :Brunilda infection Apply topically to affected area 2 times a day . 30 g 1 09/17/2022 Active Fluticasone Propionate 50 MCG/ACT Nasal Suspension (Flonase) Administer 2 Sprays into each nostril every morning. 48 mL 3 01/20/2023 Active Montelukast Sodium 10 MG Oral Tablet (Singulair)Indicati ons:Other seasonal allergic rhinitis Take 1 Tablet by mouth in the morning. 90 Tablet 3 04/07/2023 Active Oxybutynin Chloride ER 10 MG Oral [...] 25 MG Oral Tablet (Lopressor)Indicati ons:Atherosclerosis of [place] coronary artery of [place] heart without angina pectoris,Paroxysmal atrial fibrillation [...] the morning. 90 Tablet 1 11/17/2023 Active Atorvastatin Calcium 20 MG Oral Tablet (Lipitor)Indication s:Paroxysmal atrial fibrillation (HCC),Dyslipidemia, goal LDL below 100,Atherosclerosis of [place] coronary artery of [place] heart without angina pectoris TAKE ONE PILL BY MOUTH AT BEDTIME 90 Tablet 0 01/03/2024 Active OneTouch Delica Lancets 30GIndications:DM type 2, 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% (HCC) TEST BLOOD SUGAR ONCE DAILY DIRECTED DX E11.9 100 Each 3 01/03/2024 Active OneTouch Verio In Vitro Strip (Glucose Blood)Indications:D M type 2, 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% (HCC) Test blood sugar once daily as directed; dx E11.9 100 Strip 3 01/03/2024 Active Wixela Inhub 250-50 MCG/ACT Inhalation Aerosol Powder Breath Activated (Fluticasone-Salmet leah) INHALE 1 PUFF BY MOUTH IN THE MORNING AND 1 PUFF BEFORE BEDTIME. 180 Each 3 01/17/2024 Active metFORMIN HCl 850 MG Oral Tablet (Glucophage)Indicat ions:Type 2 diabetes mellitus with hemoglobin A1c goal of less than 7.0% ([facility]) TAKE 1 TABLET BY MOUTH TWICE A DAY WITH BREAKFAST AND DINNER 180 Tablet 1 01/17/2024 Active Apixaban 5 MG Oral Tablet (Eliquis)Indication s:Paroxysmal atrial fibrillation (HCC) Take 1 Tablet by mouth in the morning and 1 Tablet before bedtime. 60 Tablet 5 01/31/2024 Active Apixaban 5 MG Oral Tablet (Eliquis) Take 1 Tablet by mouth in the morning and 1 Tablet before bedtime. 60 Tablet 0 12/20/2023 4 Discontinu ed(Refill) documented as of this encounter (statuses as of 01/31/2024) Active Problems Problem Noted Date Diagnosed Date [...] ase with esophagitis 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 Atherosclerosis of [place] co ronary artery of [place] heart without angina pectoris Adjustment disorder with depressed mood documented as of this encounter (statuses as of 01/31/2024) Resolved Problems Problem Noted Date Diagnosed Date [...] persistent 09/23/2012 09/23/2012 Genetic Sleep Disorder [facility] Other*[id number] 09/12/2012 06/25/2016 Obesity, Class II, BMI 35-39 [...] as of this encounter (statuses as of 01/31/2024) Immunizations Name Administration Dates Next Due COVID-19 [...] encounter Miscellaneous Notes * Telephone Encounter - Megan Pratt OSA - 01/31/2024 10:38 AM EST Person calling: Titus Relationship to patient: Other - Adult son Number to return call: [phone] Reason for call: Requesting call back when medication is called in so that he can pick it up for the patient. Outcome: N/A Pharmacy: [facility]/pharmacy #[id number] [facility] Provider Name: Dr. Peacock * Telephone Encounter - Jerrica Felder OSA - 01/31/2024 10:12 AM EST Person calling: Yudelka Palacios, Patient Relationship to patient: n/a Number to return call: [phone] Reason for call: Medication Refill Pharmacy: [facility] Provider Name: Dr. Ayush Mccord, Patient called to request a refill of Eliquis as [facility] has been unable to reach the office to requesta refill on behalf of patient. Patient stated that she is currently out of medication and needs it refilled for today. Please advise. Thank you, DEMARIO Heller documented in this encounter Plan of Treatment Upcoming Encounters Date Type Department Care Team (Late st Contact Info) Description 02/14/2024 11:20 AM EDT Office Visit Neurology [facility] [address] [place] [address] [place] [address] Emelia Robles PA-C [address] [facility] [place] [address] 02/23/2024 2:00 PM EDT Office Visit Family Medicine [address] [place] [phone] Linda Smith MD [address] [place] [address] [place] [address] Health Maintenance Due Date Last Done Comments Zoster Vaccines (1 of 2) 1989 Depression Screening 04/29/2021 04/29/2020 Influenza Vaccine (FLU shot) (#1) 2023 09/17/2022, 10/17/2021, 08/13/2020, Additional history exists Diabetic Foot Exam 04/28/2024 04/28/2023, 0 03/12/2022, 04/01/2021, Additional history exists HbA1c 05/18/2024 11/17/2023, 05/11/2022, 11/17/2022, Additional history exists Diabetic Eye Exam 09/03/2024 09/03/2023, , 10/26/2022, Additional history exists Albumin/Creatinine Ratio 11/17/202411/17/2 023, 11/17/2022, 11/13/2021, Additional history exists TSH 12/14/2024 12/14/2023, 03/31, 05/14/2022, Additional history exists GFR 01/01/2025 01/01/2024, 11/30, 12/17/2023, Additional history exists DXA Scan 05/31/2026 05/31/2019, [...] encounter Visit Diagnoses Diagnosis Paroxysmal atrial fibrillation (HCC)- Primary Atrial fibrillation documented in this encounter Care Teams Electric Lift Truck Driver Relationship Specialty Start Date End Date Linda Smith MD [address] [place] [address] [place] [address] PCP - General Family Medicine 12/22/23 documented as of this encounter
--- OUTSIDE RECORDS SUMMARY | 2024-02-09 00:36 | External Medical Summary | Summary of Care ---
Author Name Unknown Organization [facility] Address [address] [place] [place] [address] Phone [phone] Care Team Providers Care Lawn Service Manager Name Role Phone Linda Smith MD Primary Care Provide r Reason for Visit * Reason Comments Follow Up Encounter Details Date Type Department Care Team (Latest Contact Info) Description 01/10/2024 1:00 PM EST Office Visit Cardiology, [facility] [address] [place] [address] Chace Peacock, [address] [place] [address] History of cardioembolic stroke*; Paroxysmal atrial fibrillation (HCC); Atherosclerosis of [place] coronary artery of [place] heart without angina pectoris; Essential hypertension with goal blood pressure less than 140/90; Dyslipidemia, goal LDL below 100 Allergies Active Allergy Reactions Criticality Noted Date Comments Brassica Oleracea 05/17/2020 Other Reaction(s): Gas Crab (Diagnostic) 04/05/2018 Crab Extract Allergy Skin Test 05/17/2020 Other Reaction(s): diarrhea Food (See Comments) 07/24/2015 Broccoli, beans, cauliflower - cause gas Grapefruit, oranges - cause bronchitis - positive skin test Grapefruit Extract 05/17/2020 Other Reaction(s): BRONCHITIS [place] Oil 05/17/2020 Other Reaction(s): BRONCHITIS Paroxetine Hydrochloride 04/03/2009 Penicillins 04/03/2009 Blisters on hands Peanut-Containing Drug Products Abdominal pain Medium 07/24/2015 Gas, bloating Phaseolus 01/10/2024 Other Reaction(s): Bloating, Gas also with green beans documented as of this encounter (statuses as of 01/10/2024) Medications Medication Sig Dispensed Refills Start Date [...] 0 Active triamcinolone acetonide (ARISTOCORT) 0.1 % creamIndications:Int [...] TWICE A DAY 0 05/18/2022 Active Nystatin 715196 UNIT/GM External CreamIndications:Can dida infection Apply to affected area 2-3 times daily for 5 days 45 g 1 09/17/2022 Active Nystatin 659805 UNIT/GM External Powder (Nystop)Indications: Brunilda infection Apply [...] the morning. 90 Tablet 3 04/07/2023 Active metFORMIN HCl 850 MG Oral Tablet [...] before bedtime. 60 Tablet 0 12/20/2023 Active Atorvastatin Calcium 20 MG Oral Tablet [...] Active OneTouch Verio In Vitro Strip (Glucose Blood)Indications:DM type 2, 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% (HCC) Test blood sugar once daily as directed; dx E11.9 100 Strip 3 01/03/2024 Active documented as of this encounter (statuses as of 01/10/2024) Active Problems Problem Noted Date Diagnosed Date [...] as of this encounter (statuses as of 01/10/2024) Resolved Problems Problem Noted Date Diagnosed Date [...] persistent 09/23/2012 09/23/2012 Genetic Sleep Disorder [facility] Other*[id number] 09/12/2012 06/25/2016 Obesity, Class II, BMI 35-39 [...] as of this encounter (statuses as of 01/10/2024) Immunizations Name Administration Dates Next Due COVID-19 mRNA, LNP-s, No Pre serve, 2-Dose Series (Moderna) 03/15/2021,02/16/2021 COVID-19, MRNA-LNP, 23-24, P F, 30 MCG/0.3 mL, 12 YRS AND ABOVE, IM ([facility]) 11/17/2023 COVID-19, mRNA, LNP-s, PF, B ooster, [...] Sign Reading Time Taken Comments Blood Pressure 122/48 01/10/2024 12:59 PM EST Pulse 72 01/10/2024 12:59 PM EST Temperature - - Respiratory Rate 14 01/10/2024 12:59 PM EST Oxygen Saturation - - Inhaled Oxygen Concentration - - Weight 70.3 kg (155 lb) 01/10/2024 12:59 PM EST Height - - Body Mass Index 29.63 05/25/2023 1:42 PM EDT documented in this encounter Progress Notes * Chace Peacock, - 01/10/2024 1:20 PM EST 01/10/2024 Cardiology Follow Up CHIEF COMPLAINT: History of cerebrovascular disease, stroke, coronary heart disease, paroxysmal atrial fibrillation, dyslipidemia SUBJECTIVE: Yudelka Palacios is a 83 year old year old female who returns in post hospital follow-uphaving been hospitalized at [facility] from 12/03/[facility] until 12/09/2023. She would initially presented with a syncopal episode. Her mental status however was noted to not be usual, and she subsequently underwent an MRI of the brain which revealed scattered small acute infarcts consistent with emb olic etiology. She went on to have a transesophageal echocardiogram performed by the undersigned with no source ofsystemic embolism identified. The patient has a previous history of paroxysmal atrial fibrillation without documented recurrence for many years. She had previously been taken off of anticoagulation due to a severe anemia episode in the setting of epistaxis. Due to her findings during hospital stay she was transitioned from aspirin monotherapy to aspirin plus Eliquis. She presents today in a wheelchair. She states that since her hospital discharge she was rehospitalized for a viral gastroenteritis event. She had recently been discharged to home from [facility]. She has been making progress walking with her walker. She notes ongoing issues with difficulty finding her words. The left wrist pain and swelling that she noted during her hospital stay has trended toward improvement. She still has int ermittent swelling of her left ankle which is again noted today. History: Paroxysmal atrial fibrillation (12/2011). No documented recurrence. Stable chronic coronary heart disease without angina, remote PCI stent in approximately 1999 ago [place]. Dyslipidemia Diastolic dysfunction DEMARIO Extensive ROS: All systems reviewed & are unremarkable except as noted in HPI & below Cardiovascular (chest pain/palpitations/fluttering/diaphoresis/dyspnea on exertion/paroxysmally nocturnal dyspnea):Negative Review of patient's allergies indicates: Allergen Reactions Peanut-Containing Drug Products Abdominal pain Gas, bloating Brassica Oleracea Other Reaction(s): Gas Crab (Diagnostic) Crab Extract Allergy Skin Test Other Reaction(s): diarrhea Food (See Comments) Broccoli, beans, cauliflower - cause gas Grapefruit, oranges - cause bronchitis - positive skin test Grapefruit Extract Other Reaction(s): BRONCHITIS Pointblank Oil Other Reaction(s): BRONCHITIS Paxil [Paroxetine Hydrochloride] Pcn [Penicillins] Blisters on hands Phaseolus Other Reaction(s): Bloating, Gas also with green beans Current Outpatient Medications Medication Sig Dispense Refill [...] 1 Capsule by mouth in the morning. triamcinolone acetonide (ARISTOCORT) 0.1 % cream Apply [...] the morning and 2 Tablets before bedtime. Lumigan 0.01 % Ophthalmic Solution Instill 1 Drop into both eyes at bedtime. Ketoconazole 2 % External Cream APPLY SPARINGLY TO AFFECTED AREA TWICE A DAY Nystatin 245645 UNIT/GM External Cream Apply to affected area 2-3 times daily for 5 days 45 g 1 Nystatin 561577 UNIT/GM External Powder (Nystop) Apply topically to [...] mouth in the morning. 90 Tablet 3 metFORMIN HCl 850 MG Oral Tablet (Glucophage) TAKE 1 TABLET BY MOUTH TWICE A DAY WITH BREAKFAST ANDDINNER 180 Tablet 1 Oxybutynin Chloride ER 10 MG Oral Tablet Extended Release 24 Hour (Ditropan XL) Take 1 Tablet by mouth in the morning. 90 Tablet 3 Losartan Potassium 100 MG Oral Tablet (Cozaar) TAKE 1 TABLET BY MOUTH EVERY DAY IN THE MORNING 90 Tablet 1 Metoprolol Tartrate 25 MG Oral Tablet (Lopressor) TAKE 1 TABLET BY MOUTH TWICE A DAY 180 Tablet 1 Sodium Chloride 1 GM Oral Tablet Take 1 Tablet by mouth in the morning and 1 Tablet before bedtime. Levothyroxine Sodium 100 MCG Oral Tablet (Levoxyl) TAKE 1 TABLET BY MOUTH DAILY AT LEAST 30 MINUTESPRIOR TO BREAKFAST OR OTHER MEDICATION 90 Tablet 1 NIFEdipine ER Osmotic Release 90 MG Oral Tablet Extended Release 24 Hour (Procardia XL) Take 1 Tablet by mouth in the morning. 90 Tablet 1 Apixaban 5 MG Oral Tablet (Eliquis) Take 1 Tablet by mouth in the morning and 1 Tablet before bedtime. 60 Tablet 0 Atorvastatin Calcium 20 MG Oral Tablet (Lipitor) TAKE ONE PILL BY MOUTH AT BEDTIME 90 Tablet 0 OneTouch Delica Lancets 30G TEST BLOOD SUGAR ONCE DAILY DIRECTED DX E11.9 100 Each 3 OneTouch Verio In Vitro Strip (Glucose Blood) Test blood sugar once daily as directed; dx E11.9 100Strip 3 Wixela Inhub 250-50 MCG/DOSE Inhalation Aerosol Powder Breath Activated (Fluticasone-Salmeterol) INHALE 1 PUFF BY MOUTH 2 TIMES A DAY. 180 Each 3 No current facility-administered medications for this visit. OBJECTIVE/PHYSICAL EXAMINATION: BP 122/48 | Pulse 72 | Resp 14 | Wt 70.3 kg (155 lb) | BMI 29.63 kg/m | BSA 1.73 m General: no acute distress and stated age Eyes: conjunctiva are pink and non-injected, sclera clear Neck: normal jugular venous pulse, no hepatojugular reflux Chest: normal shape and normal respiratory effort Lungs: clear to auscultation , no rales rhonchi or wheezing Cardiac Exam: - regular heart sounds, no murmurs, rubs, or gallops Abdomen: abdomen soft, non-tender, no abnormal masses and no hepatosplenomegaly Musculoskeletal: no gait disturbance, no weakness Extremities: no edema and no cyanosis Neuro: grossly normal exam Psych: appropriate affect and insight. Data: Lipid Panel Results: Results for orders placed or performed in visit on 11/17/22 LIPID PANEL WITH DIRECT LDL IF TG IS HIGH Result Value Ref Range Triglycerides 145 <=174 mg/dL Cholesterol 142 <200 mg/dL HDL Cholesterol 56 >49 mg/dL Non-HDL Cholesterol 86 <=159 mg/dL LDL Cholesterol 57 <=129 mg/dL ASSESSMENT / PLAN: 83 year old year old female History of cardioembolic stroke (Primary) Paroxysmal atrial fibrillation (HCC) Atherosclerosis of [place] coronary artery of [place] heart without angina pectoris Essential hypertension with goal blood pressure less than 140/90 Dyslipidemia -presumed cardioembolic stroke in the setting of history of paroxysmal atrial fibrillation for which the patient was on aspirin plus anticoagulation. -patient denies symptoms of angina present. Volume status stable. -Blood pressure had been high during her recent hospital stay in his much improved today. -current prescription medication management: Continue aspirin 81 milligrams daily, Eliquis 5 milligrams twice daily, atorvastatin 20 milligrams daily, losartan 100 milligrams daily, metoprolol tartrate 25 milligrams twice daily, nifedipine 90 milligrams daily. With the patient's permission, I called and spoke to her son, Titus, and provided him with updated. DISPOSITION: Follow Up: Return in about 6 months (around 07/10/2024) for Clinic Visit. | For: Clinic Visit Chace Peacock DO Cardiology, [address] [address] This chart was completed in part utilizing [employer] Speech Voice Recognition Software. Grammatical errors, random word insertions, prounoun errors, and incomplete sentences are an occasional consequence of this system due to software limitations, ambient noise, and hardware issues. Any formal questions or concerns about the content, text, or information contained within the body of this dictation should be directly addressed to the provider for clarification. documented in this encounter Nursing Notes * Lolita Marshall LPN - 01/10/2024 12:55 PM EST Examination Room: 10 Name: Yudelka Palacios Date of : 1940 Reason for Visit: Follow up hosp d/c Problems/Concerns: Feeling better "moving cautiously" Interim Hosp(s): 10/2023 s/p fall, November stomach virus Chest Pain/SOB: denies MyChart Discussed: DECLINES Patient was instructed to not get up on the exam table until directed and assisted by their provider; patient is to remain seated in the chair/ wheelchair/ exam table for fall prevention and safety reasons. Patient is aware staff will assist stepping down off exam table with personnel. documented in this encounter Plan of Treatment Upcoming Encounters Date Type Department Care Team (Late st Contact Info) Description 02/14/2024 11:20 AM EDT Office Visit Neurology [facility] [address] [place] [address] [facility] [place] [address] Emelia Robles PA-C [address] [facility] [place] [address] 02/23/2024 2:00 PM EDT Office Visit Family Medicine [address] [phone] Linda Smith MD [address] [place] [address] [place] [address] Health Maintenance Due Date Last Done Comments [...] as of this encounter Visit Diagnoses Diagnosis History of cardioembolic stroke- Primary Paroxysmal atrial fibrillation (HCC) Atrial fibrillation Atherosclerosis of [place] coronary artery of [place] heart without angina pectoris Essential hypertension with goal blood pressure less than 140/90 Dyslipidemia, goal LDL below 100 Other and unspecified hyperlipidemia documented in this encounter Care Teams Lawn Service Manager Relationship Specialty Start Date End Date Linda Smith MD [address] [place] [address] [place] [phone] PCP - General Family Medicine 12/22/23 documented as of this encounter
--- OUTSIDE RECORDS SUMMARY | 2024-02-09 00:36 | External Medical Summary | Summary of Care ---
Author Name Unknown Organization [facility] Address [address] [place] [address] Phone [phone] Care Team Providers Care Qa Manager Name Role Phone Linda Smith MD Primary Care Provide r Reason for Visit * Reason Onset Date Comments Home Health 01/31/2024 Encounter Details Date Type Department Care Team (Late st Contact Info) Description 01/31/2024 Telephone Family Medicine [address] [phone] Linda Smith MD [address] [place] [address] [place] [address] Home Health Allergies Active Allergy Reactions Criticality Noted Date Comments Brassica Oleracea 05/17/2020 Other Reaction(s): Gas Crab (Diagnostic) 04/05/2018 Crab Extract Allergy Skin Test 05/17/2020 Other Reaction(s): diarrhea Food (See Comments) 07/24/2015 Broccoli, beans, cauliflower - cause gas Grapefruit, oranges - cause bronchitis - positive skin test Grapefruit Extract 05/17/2020 Other Reaction(s): BRONCHITIS [place] Oil 05/17/2020 Other Reaction(s): BRONCHITIS Paroxetine Hydrochloride [...] TWICE A DAY 0 05/18/2022 Active Nystatin 478385 UNIT/GM External CreamIndications:Ca ndida infection Apply to affected area 2-3 times daily for 5 days 45 g 1 09/17/2022 Active Nystatin 897118 UNIT/GM External Powder (Nystop)Indications :Brunilda infection Apply [...] 25 MG Oral Tablet (Lopressor)Indicati ons:Atherosclerosis of [place] coronary artery of [place] heart without angina pectoris,Paroxysmal atrial fibrillation (HCC),Essential hypertension with goal blood pressure less than 140/90 TAKE 1 TABLET BY MOUTH TWICE A DAY 180 Tablet 1 11/01/2023 Active Levothyroxine Sodium 100 MCG Oral Tablet [...] fibrillation (HCC),Dyslipidemia, goal LDL below 100,Atherosclerosis of [place] coronary artery of [place] heart without angina pectoris TAKE ONE PILL [...] hemoglobin A1c goal of less than 7.0% ([facility]) TAKE 1 TABLET BY MOUTH TWICE A DAY WITH BREAKFAST AND DINNER 180 Tablet 1 01/17/2024 Active Apixaban 5 MG Oral Tablet (Eliquis)Indication s:Paroxysmal atrial fibrillation (HCC) Take 1 Tablet by mouth in the morning and 1 Tablet before bedtime. 60 Tablet 5 01/31/2024 Active Sodium Chloride 1 GM Oral Tablet Take 1 Tablet by mouth in the morning and 1 Tablet before bedtime. 60 Tablet 2 01/31/2024 Active Sodium Chloride 1 GM Oral Tablet Take 1 Tablet by mouth in the morning and 1 Tablet before bedtime. 0 11/07/2023 4 Discontinu ed(Refill) documented as of this [...] ase with esophagitis 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 Atherosclerosis of [place] co ronary artery of [place] heart without angina pectoris Adjustment disorder with [...] persistent 09/23/2012 09/23/2012 Genetic Sleep Disorder Resea [facility] Other*[id number] 09/12/2012 06/25/2016 Obesity, Class II, BMI 35-39 [...] encounter Miscellaneous Notes * Telephone Encounter - Linda Smith MD - 01/31/2024 12:58 PM EST Last Na+ is normal - will continue sodium chloride - med sent * Telephone Encounter - Marisa Merrill LPN - 01/31/2024 11:21 AM EST HH Concerns RAFFI Hadley, Calling from: Giuliano Report/Concerns of: Medication Related Narrative: States that the pt reported that she is out of Eliquis and has been having a hard time getting it. Made Leonie aware that there was already communication about this sent to cardiology. Leonie is asking if the pt should be taking Sodium? The pt has a script for 1 GM BID in her home and is currently out of the medication. Med pended, if agreeable with pt continuing sodium. Pharmacy selected. Please advise. Call back Leonie with any advice or orders at [phone] Please fax new orders to [phone]. documented in this encounter Plan of Treatment Upcoming Encounters Date Type Department Care Team (Late st Contact Info) Description 02/14/2024 11:20 AM EDT Office Visit Neurology [facility] [address] [facility] [place] [address] Emelia Robles PA-C [address] [facility] [place] [address] 02/23/2024 2:00 PM EDT Office Visit Family [address] [phone] Linda Smith MD [address] [place] [address] [place] [address] Health Maintenance Due Date Last Done Comments [...] filedocumented as of this encounter Care Teams Qa Manager Relationship Specialty Start Date End Date Linda Smith MD [address] [place] [address] [place] [address] PCP - General Family Medicine 12/22/23 documented as of this encounter
--- OUTSIDE RECORDS SUMMARY | 2024-02-09 00:36 | External Medical Summary | Summary of Care ---
Author Name Unknown Organization [facility] Address [address] [place] [address] Phone [phone] Care Team Providers Care Fishing Hand Name Role Phone Linda Smith MD Primary Care Provide r Reason for Visit * Reason Comments eRx-Medication Refill Encounter Details Date Type Department Care Team (Late st Contact Info) Description 01/17/2024 Refill Family Medicine [address] [phone] Kumar Salinas MD [address] [place] [address] [place] [address] Type 2 diabetes mellitus with hemoglobin A1c goal of less than 7.0% ([facility]) Allergies Active Allergy Reactions Criticality Noted Date Comments Brassica Oleracea 05/17/2020 Other Reaction(s): Gas Crab (Diagnostic) 04/05/2018 Crab Extract Allergy Skin Test 05/17/2020 Other Reaction(s): diarrhea Food (See Comments) 07/24/2015 Broccoli, beans, cauliflower - cause gas Grapefruit, oranges - cause bronchitis - positive skin test Grapefruit Extract 05/17/2020 Other Reaction(s): BRONCHITIS [place] Oil 05/17/2020 Other Reaction(s): BRONCHITIS Paroxetine Hydrochloride 04/03/2009 Penicillins 04/03/2009 Blisters on hands Peanut-Containing Drug Products Abdominal pain Medium 07/24/2015 Gas, bloating Phaseolus 01/10/2024 Other Reaction(s): Bloating, Gas also with green beans documented as of this encounter (statuses as of 01/17/2024) Medications Medication Sig Dispensed Refills Start Date End Date Status ECOTRIN LOW STRENGTH 81 MG PO TBEC One pill by mouth once a day 100 5 9 Active DEXILANT 60 MG PO CPDR 1 CAPSULE DAILY 30 Cap 5 1 Active CENTRUM SILVER PO TABS 1 tab daily 0 3 Active VITAMIN B-12 1000 MCG PO TABS 1 tab daily 0 3 Active vitamin c (ASCORBIC ACID) 500 MG [...] day. To affected area. 15 g 5 0 Active Magnesium Oxide 400 (240 Mg) MG [...] (and with respiratory infections). 18 g 4 1 Active Azelastine HCl 0.1 % Nasal Solution Administer 2 Sprays into each nostril every evening. 90 mL 3 1 Active Klor-Con M10 10 MEQ Oral Tablet Extended Release Take 2 Tablets by mouth in the morning and 2 Tablets before bedtime. 0 1 Active Wixela Inhub 250-50 MCG/DOSE Inhalation Aerosol Powder Breath Activated (Fluticasone-Salmet leah) INHALE 1 PUFF BY MOUTH 2 TIMES A DAY. 180 Each 3 2 Active Lumigan 0.01 % Ophthalmic Solution Instill 1 Drop into both eyes at bedtime. 0 2 Active Ketoconazole 2 % External Cream APPLY SPARINGLY TO AFFECTED AREA TWICE A DAY 0 2 Active Nystatin 398693 UNIT/GM External CreamIndications:Ca ndida infection Apply to affected area 2-3 times daily for 5 days 45 g 1 2 Active Nystatin 720119 UNIT/GM External Powder (Nystop)Indications :Brunilda infection Apply topically to affected area 2 times a day . 30 g 1 2 Active Fluticasone Propionate 50 MCG/ACT Nasal Suspension (Flonase) Administer 2 Sprays into each nostril every morning. 48 mL 3 3 Active Montelukast Sodium 10 MG Oral Tablet (Singulair)Indicati ons:Other seasonal allergic rhinitis Take 1 Tablet by mouth in the morning. 90 Tablet 3 3 Active Oxybutynin Chloride ER 10 MG Oral Tablet Extended Release 24 Hour (Ditropan XL) Take 1 Tablet by mouth in the morning. 90 Tablet 3 3 Active Losartan Potassium 100 MG Oral Tablet (Cozaar)Indications :Benign hypertension with CKD (chronic kidney disease), stage II,Essential hypertension with goal blood pressure less than 140/90,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) TAKE 1 TABLET BY MOUTH EVERY DAY IN THE MORNING 90 Tablet 1 3 Active Metoprolol Tartrate 25 MG Oral Tablet (Lopressor)Indicati ons:Atherosclerosis of [place] coronary artery of [place] heart without angina pectoris,Paroxysmal atrial fibrillation (HCC),Essential hypertension with goal blood pressure less than 140/90 TAKE 1 TABLET BY MOUTH TWICE A DAY 180 Tablet 1 3 Active Sodium Chloride 1 GM Oral Tablet Take 1 Tablet by mouth in the morning and 1 Tablet before bedtime. 0 3 Active Levothyroxine Sodium 100 MCG Oral Tablet (Levoxyl)Indication s:Acquired hypothyroidism TAKE 1 TABLET BY MOUTH DAILY AT LEAST 30 MINUTES PRIOR TO BREAKFAST OR OTHER MEDICATION 90 Tablet 1 3 Active NIFEdipine ER Osmotic Release 90 MG Oral Tablet Extended Release 24 Hour (Procardia XL)Indications:Segundo gn hypertension with CKD (chronic kidney disease), stage II,Primary hypertension Take 1 Tablet by mouth in the morning. 90 Tablet 1 3 Active Apixaban 5 MG Oral Tablet (Eliquis) Take 1 Tablet by mouth in the morning and 1 Tablet before bedtime. 60 Tablet 0 4 Active Atorvastatin Calcium 20 MG Oral Tablet (Lipitor)Indication s:Paroxysmal atrial fibrillation (HCC),Dyslipidemia, goal LDL below 100,Atherosclerosis of [place] coronary artery of [place] heart without angina pectoris TAKE ONE PILL BY MOUTH AT BEDTIME 90 Tablet 0 4 Active OneTouch Delica Lancets 30GIndications:DM type 2, 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% (HCC) TEST BLOOD SUGAR ONCE DAILY DIRECTED DX E11.9 100 Each 3 4 Active OneTouch Verio In Vitro Strip (Glucose Blood)Indications:D M type 2, 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% (HCC) Test blood sugar once daily as directed; dx E11.9 100 Strip 3 4 Active Wixela Inhub 250-50 MCG/ACT Inhalation Aerosol Powder Breath Activated (Fluticasone-Salmet leah) INHALE 1 PUFF BY MOUTH IN THE MORNING AND 1 PUFF BEFORE BEDTIME. 180 Each 3 4 Active metFORMIN HCl 850 MG Oral Tablet (Glucophage)Indicat ions:Type 2 diabetes mellitus with hemoglobin A1c goal of less than 7.0% (HCC) TAKE 1 TABLET BY MOUTH TWICE A DAY WITH BREAKFAST AND DINNER 180 Tablet 1 4 Active metFORMIN HCl 850 MG Oral Tablet (Glucophage)Indicat ions:Type 2 diabetes mellitus with hemoglobin A1c goal of less than 7.0% (HCC) TAKE 1 TABLET BY MOUTH TWICE A DAY WITH BREAKFAST AND DINNER 180 Tablet 1 3 01/17/20 24 Discontinued documented as of this encounter (statuses as of 01/17/2024) Active Problems Problem Noted Date Diagnosed Date [...] ase with esophagitis 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 Atherosclerosis of [place] co ronary artery of [place] heart without angina pectoris Adjustment disorder with depressed mood documented as of this encounter (statuses as of 01/17/2024) Resolved Problems Problem Noted Date Diagnosed Date [...] persistent 09/23/2012 09/23/2012 Genetic Sleep Disorder [facility] Other*[id number] 09/12/2012 06/25/2016 Obesity, Class II, BMI 35-39 [...] as of this encounter (statuses as of 01/17/2024) Immunizations Name Administration Dates Next Due COVID-19 [...] encounter Miscellaneous Notes * Telephone Encounter - Darwin Newsoem MD - 01/17/2024 5:01 PM EST Signed Prescriptions: Disp Refills metFORMIN HCl 850 MG Oral Tablet (Glucopha*180 Ta*1 Sig: TAKE 1 TABLET BY MOUTH TWICE A DAY WITH BREAKFAST AND DINNER Authorizing Provider: DARWIN NEWSOME * Telephone Encounter - Goyo Donovan [facility] - 01/17/2024 4:54 PM EST Pending Prescriptions: Disp Refills metFORMIN HCl 850 MG Oral Tablet [Pharmacy*180 Ta*1 Sig: TAKE 1 TABLET BY MOUTH TWICE A DAY WITH BREAKFAST AND DINNER * Telephone Encounter - Goyo Donovan [facility] - 01/17/2024 4:53 PM EST Pending Prescriptions: Disp Refills metFORMIN HCl 850 MG Oral Tablet (Glucoph*180 Ta*1 Sig: TAKE 1 TABLET BY MOUTH TWICE A DAY WITH BREAKFAST AND DINNER Last Visit: 01/03/2024 (in office), Visit date not found (telemedicine) Next Visit: 02/23/2024 If no future appointments scheduled, and last appointment is greater than a year ago, please schedule patient for a follow-up appointment Last date the medication was ordered: 07/11/2023 Pharmacy: [id number] [id number] [facility] Is this request for a controlled substance? No Urine Drug Screen:No results found. However, due to the size of the patient record, not all encounters were searched. Please check Results Review for a complete set of results. Patient Phone Numbers Labs: Lab Results Component Value Date/Time CREAT 0.7 01/01/2024 05:30 AM CREAT 0.8 09/16/2020 01:56 PM POTASSIUM 4.1 01/01/2024 05:30 AM POTASSIUM 3.8 09/16/2020 01:56 PM TSH 1.09 12/14/2023 06:00 AM TSH 0.51 04/29/2020 10:16 AM LDLCALC 57 11/17/2022 01:13 PM LDLCALC UNINTERPRETABLE RESULT 01/23/2019 02:34 PM LDLDIRECT 67 11/13/2021 09:12 AM LDLDIRECT 67 09/16/2020 02:12 PM ALT 28 11/10/2023 09:38 AM ALT 20 04/27/2019 03:30 PM HGBA1C 6.3 (H) 11/17/2023 03:02 PM HGBA1C 6.3 (H) 06/10/2020 03:05 PM documented in this encounter Plan of Treatment Upcoming Encounters Date Type Department Care Team (Late st Contact Info) Description 02/14/2024 11:20 AM EDT Office Visit Neurology [facility] [place] [address] [facility] [place] [address] Emelia Robles PA-C [address] [facility] [place] [address] 02/23/2024 2:00 PM EDT Office Visit Family Medicine [address] [phone] Linda Smith MD [address] [place], [place] [address] [address] Health Maintenance Due Date Last Done Comments [...] (HCC) documented in this encounter Care Teams Fishing Hand Relationship Specialty Start Date End Date Linda Smith MD [address] [place] [address] [place] [address] PCP - General Family Medicine 12/22/23 documented as of this encounter
--- OUTSIDE RECORDS SUMMARY | 2024-02-09 00:36 | External Medical Summary | Summary of Care ---
Author Name Unknown Organization [facility] Address [address] [place] [address] Phone [phone] Care Team Providers Care Svp Marketing Name Role Phone Linda Smith MD Primary Care Provide r Reason for Visit * Reason Comments eRx-Medication Refill Encounter Details Date Type Department Care Team (Late st Contact Info) Description 01/17/2024 Refill Allergy/Immunology [facility] [address] [facility] [place] [address] Og Alonso MD [address] [place] [address] Allergies Active Allergy Reactions Criticality Noted Date Comments Brassica Oleracea 05/17/2020 Other Reaction(s): Gas Crab (Diagnostic) 04/05/2018 Crab Extract Allergy Skin Test 05/17/2020 Other Reaction(s): diarrhea Food (See Comments) 07/24/2015 Broccoli, beans, cauliflower - cause gas Grapefruit, oranges - cause bronchitis - positive skin test Grapefruit Extract 05/17/2020 Other Reaction(s): BRONCHITIS [place] Oil 05/17/2020 Other Reaction(s): BRONCHITIS Paroxetine Hydrochloride [...] TWICE A DAY 0 2 Active Nystatin 278083 UNIT/GM External CreamIndications:Ca ndida infection Apply to affected area 2-3 times daily for 5 days 45 g 1 2 Active Nystatin 622924 UNIT/GM External Powder (Nystop)Indications :Brunilda infection Apply [...] the morning. 90 Tablet 3 3 Active metFORMIN HCl 850 MG Oral Tablet (Glucophage)Indicat ions:Type 2 diabetes mellitus with hemoglobin A1c goal of less than 7.0% (HCC) TAKE 1 TABLET BY MOUTH TWICE A DAY WITH BREAKFAST AND DINNER 180 Tablet 1 3 Active Oxybutynin Chloride ER 10 MG [...] 25 MG Oral Tablet (Lopressor)Indicati ons:Atherosclerosis of [place] coronary artery of [place] heart without angina pectoris,Paroxysmal atrial fibrillation (HCC),Essential [...] fibrillation (HCC),Dyslipidemia, goal LDL below 100,Atherosclerosis of [place] coronary artery of [place] heart without angina pectoris TAKE ONE PILL BY MOUTH AT BEDTIME 90 Tablet 0 4 Active OneTouch Delica Lancets 30GIndications:DM type 2, 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% ([facility]) TEST BLOOD SUGAR ONCE DAILY DIRECTED DX E11.9 100 Each 3 4 Active OneTouch Verio In Vitro Strip (Glucose Blood)Indications:D M type 2, 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% ([facility]) Test blood sugar once daily as directed; dx E11.9 100 Strip 3 4 Active Wixela Inhub 250-50 MCG/ACT Inhalation Aerosol Powder Breath Activated (Fluticasone-Salmet leah) INHALE 1 PUFF BY MOUTH IN THE MORNING AND 1 PUFF BEFORE BEDTIME. 180 Each 3 4 Active Fluticasone-Salmete rol 250-50 MCG/ACT Inhalation Aerosol Powder Breath Activated (Wixela Inhub) Inhale 1 Puff by mouth in the morning and 1 Puff before bedtime. 180 Each 3 3 01/17/20 24 Discontinued documented as of [...] ase with esophagitis 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 Atherosclerosis of [place] co ronary artery of [place] heart without angina pectoris Adjustment disorder with [...] persistent 09/23/2012 09/23/2012 Genetic Sleep Disorder Resea [facility] Other*[id number] 09/12/2012 06/25/2016 Obesity, Class II, BMI 35-39 [...] MCG/0.3 mL, 12 YRS AND ABOVE, IM ([facility]) 11/17/2023 COVID-19, mRNA, LNP-s, PF, B ooster, [...] encounter Miscellaneous Notes * Telephone Encounter - Og Alonso MD - 01/17/2024 7:50 AM ESTSigned Prescriptions: Disp Refills Wixela Inhub 250-50 MCG/ACT Inhalation Aer*180 Ea*3 Sig: INHALE 1 PUFF BY MOUTH IN THE MORNING AND 1 PUFF BEFORE BEDTIME. Authorizing Provider: OG ALONSO * Telephone Encounter - Anupama Moraes LPN - 01/17/2024 7:47 AM EST Pending Prescriptions: Disp Refills Wixela Inhub 250-50 MCG/ACT Inhalation Aer*180 Ea*3 Sig: INHALE 1 PUFF BY MOUTH IN THE MORNING AND 1 PUFF BEFORE BEDTIME. * Telephone Encounter - Anupama Moraes LPN - 01/17/2024 7:47 AM EST Pending Prescriptions: Disp Refills Wixela Inhub 250-50 MCG/ACT Inhalation Ae*180 Ea*3 Sig: INHALE 1 PUFF BY MOUTH IN THE MORNING AND 1 PUFF BEFORE BEDTIME. Last Visit: 06/03/2022 (in office), Visit date not found (telemedicine) Next Visit: Visit date not found Last date the medication was ordered: 01/11/23 Health Maintenance Topic Date Due Zoster Vaccines (1 of 2) Never done Depression Screening 04/29/2021 Influenza Vaccine (FLU shot) (1) 07/30/2023 Diabetic Foot Exam 04/28/2024 HbA1c 05/18/2024 Diabetic Eye Exam 09/03/2024 Albumin/Creatinine Ratio 11/17/2024 TSH 12/14/2024 GFR 01/01/2025 DXA Scan 05/31/2026 DTaP,Tdap,and Td Vaccines (4 - Td or Tdap) 09/19/2027 Pneumococcal Vaccine: 65+ Years Completed COVID-19 Vaccine Completed Hepatitis B Aged Out MENINGOCOCCAL (MENACTRA/MENVEO) Aged Out GARDASIL-HPV IMMUNIZATION SERIES Aged Out Labs: Lab Results Component Value Date/Time CREATININE - [facility] 0.7 01/01/2024 05:30 AM CREATININE - [facility] 0.8 09/16/2020 01:56 PM CREATININE, RANDOM URINE - [facility] 64 11/17/2023 03:02 PM CREATININE, RANDOM URINE - [facility] 105 09/16/2020 02:12 PM CREATININE-OUTSIDE LAB 0.86 04/21/2020 12:00 AM Lab Results Component Value Date/Time POTASSIUM - [facility] 4.1 01/01/2024 05:30 AM POTASSIUM - [facility] 3.8 09/16/2020 01:56 PM POTASSIUM-OUTSIDE LAB 3.4 (A) 04/21/2020 12:00 AM Lab Results Component Value Date/Time TSH - [facility] 1.09 12/14/2023 06:00 AM TSH - [facility] 0.51 04/29/2020 10:16 AM TSH - OUTSIDE LAB 0.237 (A) 05/07/2018 12:00 AM Lab Results Component Value Date/Time LDL (CALCULATED)-OUTSIDE LAB 46 05/07/2018 10:11 AM LDL (CALCULATED)-OUTSIDE LAB 46 05/07/2018 12:00 AM LDL (CALCULATED)-OUTSIDE LAB 132 (A) 09/21/2016 12:00 AM LDL CHOLESTEROL (CALCULATED) - [facility] 57 11/17/2022 01:13 PM LDL CHOLESTEROL (CALCULATED) - [facility] UNINTERPRETABLE RESULT 01/23/2019 02:34 PM LDL CHOLESTEROL (CALCULATED) - [facility] 39 04/12/2017 02:38 PM LDL CHOLESTEROL (DIRECT MEASURE) - [facility] 67 11/13/2021 09:12 AM LDL CHOLESTEROL (DIRECT MEASURE) - [facility] 67 09/16/2020 02:12 PM LDL CHOLESTEROL (DIRECT MEASURE) - [facility] 70 01/23/2019 02:34 PM Lab Results Component Value Date/Time ALT - [facility] 28 11/10/2023 09:38 AM ALT - [facility] 20 04/27/2019 03:30 PM ALT-OUTSIDE LAB 18 09/21/2016 12:00 AM Hemoglobin AIC Results: Lab Results Component Value Date/Time HEMOGLOBIN A1C - [facility] 6.3 (H) 11/17/2023 03:02 PM HEMOGLOBIN A1C - [facility] 6.3 (H) 04/28/2023 02:28 PM HEMOGLOBIN A1C - [facility] 6.4 (H) 11/17/2022 01:13 PM HEMOGLOBIN A1C - [facility] 6.3 (H) 06/10/2020 03:05 PM HEMOGLOBIN A1C - [facility] 6.0 (H) 08/29/2019 11:47 AM HEMOGLOBIN A1C - [facility] 7.4 (H) 01/23/2019 02:34 PM documented in this encounter Plan of Treatment Upcoming Encounters Date Type Department Care Team (Late st Contact Info) Description 02/14/2024 11:20 AM EDT Office Visit Neurology [facility] [place] [address] [facility] [place] [address] Emelia Robles PA-C [address] [facility] [place] [address] 02/23/2024 2:00 PM EDT Office Visit Family Medicine [address] [phone] Linda Smith MD [address] [place] [address] [place] [address] Health Maintenance Due Date Last Done Comments [...] filedocumented as of this encounter Care Teams Svp Marketing Relationship Specialty Start Date End Date Linda Smith MD [address] [place] [address] [place] [address] PCP - General Family Medicine 12/22/23 documented as of this encounter
--- OUTSIDE RECORDS SUMMARY | 2024-02-09 00:37 | External Medical Summary ---
Author Name Unknown Address Unknown Organization [id number]:[facility] [place] [address] [place] [address] Laboratory Report Ordering Provider Test Date Status KATERINA YAÑEZ 01/01/2024 05:30:00 Final Observation Date Value Abnormality Reference (Units ) Status BUN 01/01/2024 05:30:00 18 6-20 (mg/dL) Final Creatinine 01/01/2024 05:30:00 0.7 0.5-1.0 (mg/dL) Final Glomerular filtration rate/1.73 sq M.predicted [Volume Rate/Area] in Serum, Plasma or Blood by Creatinine-based formula (CKD-EPI) 01/01/2024 05:30:00 86 >=60 (mL/min) Final eGFR is calculated based on the CKD-EPI 2020 equation SODIUM 01/01/2024 05:30:00 139 135-146 (m mol/L) Final Potassium 01/01/2024 05:30:00 4.1 3.5-5.1 (m mol/L) Final Cl 01/01/2024 05:30:00 101 98-107 (mm ol/L) Final CO2 01/01/2024 05:30:00 28 22-32 (mmo l/L) Final Anion gap 01/01/2024 05:30:00 10 7-15 (mmol /L) Final Glucose 01/01/2024 05:30:00 102 70-120 (mg /dL) Final Calcium 01/01/2024 05:30:00 9.1 8.4-10.2 ( mg/dL) Final Performing Location [facility]ORY [facility] [place] [address] [place] [address]
--- OUTSIDE RECORDS SUMMARY | 2024-02-09 00:37 | External Medical Summary ---
Author Name Unknown Address Unknown Organization [id number]:LABORATORY [facility] [place] [address] [place] [id number] Laboratory Report Ordering Provider Test Date Status KATERINA YAÑEZ 12/25/2023 07:57:55 Final Observation Date Value Abnormality Reference (Units ) Status WBC, Total 12/25/2023 07:57:55 6.76 4.00-10.8 0 (K/uL) Final RBC 12/25/2023 07:57:55 3.76 3.85-5.15 (M/uL) Final Hemoglobin 12/25/2023 07:57:55 11.0 Below low normal 12 .0-15.3 (g/dL) Final HCT 12/25/2023 07:57:55 35.2 Below low normal 36. 0-45.2 (%) Final MCV 12/25/2023 07:57:55 93.6 81.5-97.5 (fL) Final MCH 12/25/2023 07:57:55 29.3 27.0-34.0 (pg) Final MCHC 12/25/2023 07:57:55 31.3 32.0-36.0 (g/dL) Final RDW 12/25/2023 07:57:55 16.1 11.5-15.5 (%) Final Platelets 12/25/2023 07:57:55 284 140-400 (K /uL) Final MPV 12/25/2023 07:57:55 11.7 6.6-11.1 ( fL) Final Performing Location LAB[facility]ORY [facility] [place] [address] [place] [id number]
--- OUTSIDE RECORDS SUMMARY | 2024-02-09 00:37 | External Medical Summary ---
Author Name Unknown Address Unknown Organization K09:[facility] [place] [address] Laboratory Report Ordering Provider Test Date Status AGUSTÍN ARGUELLES 12/31/2023 06:55:32 Final Observation Date Value Abnormality Reference (Units ) Status Magnesium 12/31/2023 06:55:32 1.2 Below low normal 1.5 -2.6 (mg/dL) Final Performing Location [facility] [place] [address]
--- OUTSIDE RECORDS SUMMARY | 2024-02-09 00:37 | External Medical Summary ---
Author Name Unknown Address Unknown Organization K0G:[facility] [address] [place] [id number] Laboratory Report Ordering Provider Test Date Status KATERINA YAÑEZ 01/01/2024 05:30:00 Final Observation Date Value Abnormality Reference (Units ) Status WBC, Total 01/01/2024 05:30:00 6.82 4.00-10.8 0 (K/uL) Final RBC 01/01/2024 05:30:00 3.99 3.85-5.15 (M/uL) Final Hemoglobin 01/01/2024 05:30:00 11.7 Below low normal 12 .0-15.3 (g/dL) Final HCT 01/01/2024 05:30:00 36.7 36.0-45.2 (%) Final MCV 01/01/2024 05:30:00 92.0 81.5-97.5 (fL) Final MCH 01/01/2024 05:30:00 29.3 27.0-34.0 (pg) Final MCHC 01/01/2024 05:30:00 31.9 32.0-36.0 (g/dL) Final RDW 01/01/2024 05:30:00 16.3 11.5-15.5 (%) Final Platelets 01/01/2024 05:30:00 254 140-400 (K /uL) Final MPV 01/01/2024 05:30:00 11.8 6.6-11.1 ( fL) Final Performing Location [facility] [address] [place] [id number]
--- OUTSIDE RECORDS SUMMARY | 2024-02-09 00:37 | External Medical Summary | Summary of Care ---
Author Name Unknown Organization [facility] Address [address] [place] [address] Phone [phone] Care Team Providers Care Automatic Screwmaker Name Role Phone Rosalee Smith MD Primary Care Provide r Reason for Visit * Reason Comments eRx-Medication Refill Encounter Details Date Type Department Care Team (Late st Contact Info) Description 01/01/2024 Refill Family Medicine [address] [address] Rosalee Smith MD [address] [place] [address] [place] [address] Paroxysmal atrial fibrillation (HCC); Dyslipidemia, goal LDL below 100; Atherosclerosis of [place] coronary artery of [place] heart without angina pectoris Allergies Active Allergy Reactions Criticality Noted Date Comments Crab (Diagnostic) 04/05/2018 Food (See Comments) 07/24/2015 Broccoli, beans, cauliflower - cause gas Grapefruit, oranges - cause bronchitis - positive skin test Paroxetine Hydrochloride 04/03/2009 Penicillins 04/03/2009 Blisters on hands Peanut-Containing Drug Products Abdominal pain Medium 07/24/2015 Gas, bloating documented as of this encounter (statuses as of 01/03/2024) Medications Medication Sig Dispensed Refills Start Date [...] as directed; dx E11.9 100 Strip 3 9 Active triamcinolone acetonide (ARISTOCORT) 0.1 % creamIndications:In [...] 2, 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% ([facility]) TEST BLOOD SUGAR ONCE DAILY DIRECTED DX E11.9 100 Each 3 0 Active Albuterol Sulfate HFA 108 (90 [...] TWICE A DAY 0 2 Active Nystatin 554358 UNIT/GM External CreamIndications:Ca ndida infection Apply to affected area 2-3 times daily for 5 days 45 g 1 2 Active Nystatin 574169 UNIT/GM External Powder (Nystop)Indications :Brunilda infection Apply topically to affected area 2 times a day . 30 g 1 2 Active Fluticasone-Salmete rol 250-50 MCG/ACT Inhalation Aerosol Powder Breath Activated (Wixela Inhub) Inhale 1 Puff by mouth in the morning and 1 Puff before bedtime. 180 Each 3 3 Active Fluticasone Propionate 50 MCG/ACT Nasal Suspension [...] 25 MG Oral Tablet (Lopressor)Indicati ons:Atherosclerosis of [place] coronary artery of [place] heart without angina pectoris,Paroxysmal atrial fibrillation (HCC),Essential [...] fibrillation (HCC),Dyslipidemia, goal LDL below 100,Atherosclerosis of [place] coronary artery of [place] heart without angina pectoris TAKE ONE PILL BY MOUTH AT BEDTIME 90 Tablet 0 4 Active Atorvastatin Calcium 20 MG Oral Tablet (Lipitor)Indication s:Paroxysmal atrial fibrillation (HCC),Dyslipidemia, goal LDL below 100,Atherosclerosis of [place] coronary artery of [place] heart without angina pectoris TAKE ONE PILL BY MOUTH AT BEDTIME 90 Tablet 1 3 01/03/20 24 Discontinued documented as of this encounter (statuses as of 01/03/2024) Active Problems Problem Noted Date Diagnosed Date [...] ase with esophagitis 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 Atherosclerosis of [place] co ronary artery of [place] heart without angina pectoris Adjustment disorder with depressed mood documented as of this encounter (statuses as of 01/03/2024) Resolved Problems Problem Noted Date Diagnosed Date [...] persistent 09/23/2012 09/23/2012 Genetic Sleep Disorder Resea [facility] Other*[id number] 09/12/2012 06/25/2016 Obesity, Class II, BMI 35-39 [...] as of this encounter (statuses as of 01/03/2024) Immunizations Name Administration Dates Next Due COVID-19 [...] encounter Miscellaneous Notes * Telephone Encounter - Rosalee Smith MD - 01/03/2024 7:49 AM EST Signed Prescriptions: Disp Refills Atorvastatin Calcium 20 MG Oral Tablet (Li*90 Tab*0 Sig: TAKE ONE PILL BY MOUTH AT BEDTIME Authorizing Provider: ROSALEE SMITH * Telephone Encounter - Ann John [facility] - 01/02/2024 7:38 PM ESTPending Prescriptions: Disp Refills Atorvastatin Calcium 20 MG Oral Tablet (Li*90 Tab*0 Sig: TAKE ONE PILL BY MOUTH AT BEDTIME * Telephone Encounter - Ann John RPh - 01/02/2024 7:38 PM EST Previous provider is no longer with clinic. Routing to provider(s) to please approve refills until upcoming appointment with new [facility] provider. Pending Prescriptions: Disp Refills Atorvastatin Calcium 20 MG Oral Tablet (Li*90 Tab*0 Sig: TAKE ONE PILL BY MOUTH AT BEDTIME Last Visit: 11/17/2023 (in office), Visit date not found (telemedicine) Next Visit: 01/03/2024 If no future appointments scheduled, and last appointment is greater than a year ago, please schedule patient for a follow-up appointment Last date the medication was ordered: 06/13/23 Pharmacy: [id number] [id number] [facility] Is this request for a controlled substance?No Urine Drug Screen:No results found. However, due [...] 01/03/2024 3:20 PM EST Office Visit Family [address] [phone] Kumar Salinas MD [address] [place] [address] [place] [address] 01/10/2024 11:20 AM EST Office Visit Neurology [facility] [address] [place] [address] Emelia Robles PA-C [address] [place] [address] 01/10/2024 1:00 PM EST Office Visit Cardiology, [facility] [address] [place] [address] Chace Peacock DO [address] [place] [address] 02/23/2024 2:00 PM EDT Office Visit [address] [phone] Rosalee Smith MD [address] [place] [address] [place] [address] Health Maintenance Due Date Last Done Comments Zoster Vaccines (1 of 2) 1989 Hepatitis B (1 of 3 - Risk 3-dose series) 1999 Depression Screening 04/29/2021 04/29/2020 Influenza Vaccine (FLU shot) (#1) 2023 09/17/2022, 10/17/2021, 08/13/2020, Additional history exists Diabetic Foot Exam 04/28/2024 04/28/2023, 0 03/12/2022, 04/01/2021, Additional history exists HbA1c 05/18/2024 11/17/2023, 0511/2022, [...] 100 Other and unspecified hyperlipidemia Atherosclerosis of [place] coronary artery of [place] heart without angina pectoris documented in this encounter Care Teams Automatic Screwmaker Relationship Specialty Start Date End Date Rosalee Smith MD [address] [place] [address] [place] [address] PCP - General Family Medicine 12/22/23 documented as of this encounter
--- OUTSIDE RECORDS SUMMARY | 2024-02-09 00:37 | External Medical Summary ---
Author Name Unknown Address Unknown Organization [facility]0G:[facility] [address] [place] [address] Laboratory Report Ordering Provider Test Date Status KATERINA YAÑEZ 12/25/2023 07:57:55 Final Observation Date Value Abnormality Reference (Units ) Status BUN 12/25/2023 07:57:55 13 6-20 (mg/dL) Final Creatinine 12/25/2023 07:57:55 0.7 0.5-1.0 (mg/dL) Final Glomerular filtration rate/1.73 sq M.predicted [Volume Rate/Area] in Serum, Plasma or Blood by Creatinine-based formula (CKD-EPI) 12/25/2023 07:57:55 80 >=60 (mL/min) Final eGFR is calculated based on the CKD-EPI 2020 equation SODIUM 12/25/2023 07:57:55 141 135-146 (m mol/L) Final Potassium 12/25/2023 07:57:55 4.1 3.5-5.1 (m mol/L) Final Cl 12/25/2023 07:57:55 104 98-107 (mm ol/L) Final CO2 12/25/2023 07:57:55 25 22-32 (mmo l/L) Final Anion gap 12/25/2023 07:57:55 12 7-15 (mmol /L) Final Glucose 12/25/2023 07:57:55 97 70-120 (mg /dL) Final Calcium 12/25/2023 07:57:55 8.6 8.4-10.2 ( mg/dL) Final Performing Location [facility] [address] [place] [id number]
--- OUTSIDE RECORDS SUMMARY | 2024-02-09 00:37 | External Medical Summary | Summary of Care ---
Author Name Unknown Organization [facility] Address [address] [place] [address] Phone [phone] Care Team Providers Care Recruitment Internship Name Role Phone Linda Smith MD Primary Care Provide r Reason for Visit * Reason Comments Hospital Follow-Up Encounter Details Date Type Department Care Team (Late st Contact Info) Description 01/03/2024 3:20 PM EST Office Visit Family Medicine [address] [phone] Kumar Salinas MD [address] [place] [address] [place] [address] Ataxia, post-stroke*; DM type 2, 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% ([facility]); Benign hypertension with CKD (chronic kidney disease), stage II; Acquired hypothyroidism; Dyslipidemia, goal LDL below 100; Primary hypertension Allergies Active Allergy Reactions Criticality Noted Date [...] TWICE A DAY 0 05/18/2022 Active Nystatin 795254 UNIT/GM External CreamIndications:Ca ndida infection Apply to affected area 2-3 times daily for 5 days 45 g 1 09/17/2022 Active Nystatin 513071 UNIT/GM External Powder (Nystop)Indications :Brunilda infection Apply [...] 25 MG Oral Tablet (Lopressor)Indicati ons:Atherosclerosis of [place] coronary artery of [place] heart without angina pectoris,Paroxysmal atrial fibrillation (HCC),Essential [...] fibrillation (HCC),Dyslipidemia, goal LDL below 100,Atherosclerosis of [place] coronary artery of [place] heart without angina pectoris TAKE ONE PILL [...] dx E11.9 100 Strip 3 01/03/2024 Active Venlafaxine HCl ER 37.5 MG Oral Capsule Extended Release 24 Hour Take 1 Capsule by mouth in the morning. 0 4 Discontinu ed(End of Procedure) Glucose Blood (ONETOUCH VERIO) STRP Test blood sugar once daily as directed; dx E11.9 100 Strip 3 06/28/2019 4 Discontinu ed(Refill) OneTouch Delica Lancets 30GIndications:DM type 2, 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% (HCC) TEST BLOOD SUGAR ONCE DAILY DIRECTED DX E11.9 100 Each 3 10/07/2020 4 Discontinu ed(Refill) documented as of this [...] ase with esophagitis 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 Atherosclerosis of [place] co ronary artery of que[place] heart without angina pectoris Adjustment disorder with [...] persistent 09/23/2012 09/23/2012 Genetic Sleep Disorder Resea [facility] Other*[id number] 09/12/2012 06/25/2016 Obesity, Class II, BMI 35-39 [...] Sign Reading Time Taken Comments Blood Pressure 122/60 01/03/2024 2:48 PM EST Pulse 60 01/03/2024 2:48 PM EST Temperature 36.8 C (98.2 F) 01/03/2024 2:48 PM ES T Respiratory Rate 16 01/03/2024 2:48 PM EST Oxygen Saturation - - Inhaled Oxygen Concentration - - Weight 70.3 kg (155 lb) 01/03/2024 2:48 PM EST Height - - Body Mass Index 29.63 05/25/2023 1:42 PM EDT documented in this encounter Progress Notes * Kumar Salinas MD - 01/03/2024 2:49 PM EST Yudelka has had a few falls, was in and out of the hospital and rehab, was most recently in [facility], was discharged home 2/3 after 12/24 admission. Most likely this is related to a stroke that involved the left side and she has been working on getting the left hand stronger. There is swelling in theleft foot too, needed a larger shoe for that. She is using a walker and is getting stronger. That ma kes sense as she seems clear minded but sometimes fumbles with words. Daughter had some med questions. She is not taking the Effexor. We went over the supplements. They asked about a Dex com but she is not on insulin, would be hard to get that paid for. Denies nausea, vomiting, or diarrhea. No choking. No more falls. Health Maintenance addressed. Had the Coronovirus vaccine, 4 doses including new booster, no flu orRSV shot Past Medical History: Diagnosis Date Acquired hypothyroidism Acute blood loss anemia 08/22/2019 hgb 7.7, given 2 units Adjustment disorder with depressed mood Allergic rhinitis Asthma Atrial fibrillation (HCC) 01/08/2013 [facility] Benign hypertension with CKD (chronic kidney disease) stage III ([facility]) Benign hypertension with CKD (chronic kidney disease), stage II 04/01/2021 BMI 36.0-36.9,adult Calcium deposit in bursa, unspecified hip Cataract, nuclear sclerotic, both eyes Central stenosis of spinal canal 06/11/2021 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 Coronary atherosclerosis of quechan coronary artery DM type 2, goal HbA1c < 7% ([facility]) 05/07/2018 hgba1c 7.3 Dyslipidemia, goal LDL below [...] or female climacteric states Vasovagal syncope 10/24/2023 [facility] Past Surgical History: Procedure Laterality Date BREAST LESION,OTHER,EXCISION Bilateral cysts removed in her 20s COLONOSCOPY, REMOVE LESION, W/SNARE 04/23/2020 5 mm sessile adenomatous polyp transverse colon, large internal hemorrhoids CORONARY ARTERY DILATION, BALLOON 01/30/[address] [place] [address] ABDOMEN/PELVIS 04/04/2013 acute distal sigmoid colon [...] RIGHT AND LEFT KNEE ARTHROSCOPY/MENISCECTOMY 09/2013 left, [facility] LAPAROSCOPY;APPENDECTOMY 2006 MAMMOGRAM SCREENING BILATERAL Bilateral [...] REMOVE CATARACT, INSERT LENS PROSTH Left 05/02/2013 [facility] REMOVE CATARACT, INSERT LENS PROSTH Right 05/25/2013 [facility] REPAIR RUPTURED ROTATOR CUFF, CHRON Left 09/12/2015 Dr De Leon [facility], rotator cuff and biceps REVISE UPPER [...] History Narrative 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 Glucose Blood (SupplyFrameUCH VERIO) STRP Test blood sugar once daily as directed; dx E11.9 100 Strip 3 triamcinolone acetonide (ARISTOCORT) 0.1 % cream Apply topically to affected area 2 times a day. Toaffected area. 15 g 5 Magnesium Oxide 400 (240 Mg) MG Tablet Take 1 Tablet by mouth in the morning. zinc gluconate 50 MG Tablet Take 1 Tablet by mouth in the morning. [facility] [employer] Lancets 30G TEST BLOOD SUGAR ONCE DAILY [...] TO AFFECTED AREA TWICE A DAY Nystatin 976146 UNIT/GM External Cream Apply to affected area 2-3 times daily for 5 days 45 g 1 Nystatin 374907 UNIT/GM External Powder (Nystop) Apply topically to [...] BY MOUTH AT BEDTIME 90 Tablet 0 No current facility-administered medications for this visit. Immunization History Administered Date(s) Administered COVID-19 mRNA, LNP-s, No Preserve, 2-Dose Series (Moderna) 02/16/2021, 03/15/2021 COVID-19, MRNA-LNP, 23-24, PF, 30 MCG/0.3 mL, 12 YRS AND ABOVE, IM ([facility]) 11/17/2023 COVID-19, mRNA, LNP-s, PF, Booster, 100mcg/0.5mg (Moderna) [...] 1.09 12/14/2023 06:00 AM TSH - [facility] 0.50 04/28/2023 02:28 PM TSH - [facility] 0.40 05/14/2022 02:20 PM TSH - [facility] 0.51 04/29/2020 10:16 AM TSH - [facility] 0.14 (L) 01/23/2019 02:34 PM TSH - [facility] 0.35 05/07/2017 03:43 PM TSH - [facility] 0.237 (A) 05/07/2018 12:00 AM Results for orders placed or performed in visit on 01/01/24 BASIC METABOLIC PANEL Result Value Ref Range BUN 18 6 - 20 mg/dL Creatinine 0.7 0.5 - 1.0 mg/dL Estimated Glomerular Filtration Rate 86 >=60 mL/min Sodium 139 135 - 146 mmol/L Potassium 4.1 3.5 - 5.1 mmol/L Chloride 101 98 - 107 mmol/L CO2 28 22 - 32 mmol/L Anion Gap 10 7 - 15 mmol/L Glucose 102 70 - 120 mg/dL Calcium 9.1 8.4 - 10.2 mg/dL Lab Results Component Value Date/Time HEMOGLOBIN A1C - [facility] 6.3 (H) 11/17/2023 03:02 PM HEMOGLOBIN A1C - [facility] 6.3 (H) 04/28/2023 02:28 PM HEMOGLOBIN A1C - [facility] 6.4 (H) 11/17/2022 01:13 PM HEMOGLOBIN A1C - [facility] 6.3 (H) 06/10/2020 03:05 PM HEMOGLOBIN A1C - [facility] 6.0 (H) 08/29/2019 11:47 AM HEMOGLOBIN A1C - [facility] 7.4 (H) 01/23/2019 02:34 PM O: Blood pressure 122/60, pulse 60, temperature 36.8 C (98.2 F), resp. rate 16, weight 70.3 kg (155 lb), not currently . General appearance: well developed, well nourished and in no acute distress. Neck is supple without adenopathy or thyromegaly. Chest is symmetrical and moves normally. The lungs are clear without wheezes, rales, rhonchi or rubs, and the heart is regular withoutmurmurs or gallops, or ectopy. PMI not displaced. A: Ataxia, post-stroke (Primary) DM type 2, 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% ([facility]) - OneTouch Delica Lancets 30G; TEST BLOOD SUGAR ONCE DAILY DIRECTED DX E11.9 - OneTouch Verio In Vitro Strip (Glucose Blood); Test blood sugar once daily as directed; dx E11.9 Benign hypertension with CKD (chronic kidney disease), stage II Acquired hypothyroidism Dyslipidemia, goal LDL below 100 Primary hypertension She has appt with Dr Peacock next week and PCP in January documented in this encounter Nursing Notes * Marylin Gruber RN - 01/03/2024 2:48 PM EST Hospital follow up, pt was in [facility] due to a Stroke. D/C Wednesday Pt also fell in September a few times, they felt the stroke caused this documented in this encounter Plan of Treatment Upcoming Encounters Date Type Department Care Team (Late st Contact Info) Description 01/10/2024 11:20 AM EST Office Visit Neurology [facility] [address] [place] [address] Emelia Robles PA-C [address] [facility] [place] [address] 01/10/2024 1:00 PM EST Office Visit Cardiology, [facility] [address] [place] [address] Chace Peacock DO [address] [place] [address] 02/23/2024 2:00 PM EDT Office Visit Family Medicine [address] [place] [address] Linda Smith MD [address] [place] [address] [place] [address] Health Maintenance Due Date Last Done Comments [...] as of this encounter Visit Diagnoses Diagnosis Ataxia, post-stroke- Primary Ataxia, late effect of cerebrovascular disease DM type 2, 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% (HCC) Benign hypertension with CKD (chronic kidney disease), stage II Benign hypertensive kidney disease with chronic kidney disease stage I through stage IV, or unspecified Acquired hypothyroidism Unspecified hypothyroidism Dyslipidemia, goal LDL below 100 Other and unspecified hyperlipidemia Primary hypertension Unspecified essential hypertension documented in this encounter Care Teams Recruitment Internship Relationship Specialty Start Date End Date Linda Smith MD [address] [place] [address] [place] [address] PCP - General Family Medicine 12/22/23 documented as of this encounter
[2024-02-09] MEDS: LEVOTHYROXINE SODIUM 100 MCG TABLET PO SCH (05:20)
[2024-02-09] MEDS: PANTOprazole 40 MG TAB PO SCH (05:58)
[2024-02-09] MEDS: NIFEdipine EXTENDED REL 30 MG TABCR PO SCH (08:24)
[2024-02-09] MEDS: FLUTICASONE PROPIONATE NA SPR 16 GM BTL NAE SCH (08:24)
[2024-02-09] MEDS: CEROVITE ADV FORMULA TAB PO SCH (08:24)
[2024-02-09] MEDS: OXYBUTYNIN CHLORIDE XL 5 MG TABCR PO SCH (08:24)
[2024-02-09 08:25] LABS: Hematocrit (blood only) 40.7 % (37.0-47.0); Hemoglobin 13.1 g/dl (12.0-16.0); Mean Corpuscular Hemoglobin 29.4 pg (25.0-34.0); Mean Corpuscular Hgb Conc 32.2 g/dL (32.0-36.0); Mean Corpuscular Volume 91.3 fL (80.0-100.0); Mean Platelet Volume 10.6 fL (9.4-12.4); Platelet Count 294 K/uL (130-400); RDW Coefficient of Variation 15.4 % (11.5-14.5); RDW Standard Deviation 51.5 fL (36.4-46.3); Red Blood Count 4.46 M/uL (4.20-5.40); White Blood Count 7.72 K/ul (4.8-10.8)
[2024-02-09] MEDS: ASCORBIC ACID 500 MG TAB PO SCH (08:25)
[2024-02-09] MEDS: CHOLECALCIFEROL 25 MCG (1000 UNITS) TAB PO SCH (08:25)
[2024-02-09] MEDS: MAGNESIUM OXIDE 400 MG TAB PO SCH (08:25)
[2024-02-09] MEDS: LOSARTAN POTASSIUM 50 MG TAB PO SCH (08:25)
[2024-02-09 08:34] LABS: Estimated Average Glucose 114 mg/dl; Hemoglobin A1C 5.6 % (4.5-5.6)
[2024-02-09 09:00] LABS: BUN Creatinine Ratio 17.7 (10-20); Calcium 9.2 mg/dl (8.6-10.3); Chol HDL Ratio 2.4 (0-5); Creatinine Clr Calc Pharmacy 64.5 ml/min; Est GFR (Non-African American) 82.8 ml/min; Magnesium 1.5 mg/dl (1.7-2.4); Potassium 3.5 mmol/L (3.5-5.1)
[2024-02-09] MEDS ORDERED: LOSARTAN POTASSIUM 50 MG TAB PO SCH (09:00)
[2024-02-09] MEDS ORDERED: NIFEdipine EXTENDED REL 30 MG TABCR PO SCH (09:00)
[2024-02-09] MEDS ORDERED: NON-FORMULARY MEDICATION (Coenzyme Q10 [Coq-10] 100 mg Capsule) PO SCH (09:00)
[2024-02-09] MEDS ORDERED: VENLAFAXINE HCL XR 37.5 MG CAPXR PO SCH (09:00)
--- NOTE | 2024-02-09 10:11 | Neurology Consultation ---
Date of Consultation February 09, 2024 Assessment & Plan (1) Stroke-like symptoms: Plan 83 y/o female with history of stroke, atrial fibrillation, CAD, DM, HTN, and HLD that presented with worsening left sided weakness and dysarthria. MRI brain with no acute intracranial findings. Urinalysis suggestive of UTI and pt has been started on ceftriaxone. Overall, presentation is most suggestive of recrudescence in the setting of infection. She does report blurred vision and worsening weakness at the end of the day, which are separate from this presentation. While no eyelid fatigue on exam or defintive diplopia reported, would obtain myasthenia labs and plan for outpatient follow-up. 1. On ceftriaxone 1 g day 2. Continue eliquis 5 mg bid and atorvastatin 20 mg for secondary stroke prevention 3. AChR and MuSK antibodies 4. TSH, B12 5. Neurochecks q4 hours 6. ST/PT/OT 7. Neurology outpatient follow-up 8. Sleep medicine outpatient follow-up Telehealth Consultation Telehealth Information Telehealth Information: I performed this visit using a real-time telehealth connection between my location and the patients location ([facility]). After connecting through interactive tele-video, patient was identified by name and date of and/or wristband check.Patient (or authorized healthcare sales representative supervisor) was informed that this was a telemedicine visit and it was being conducted confidentially over secure lines. My office door was closed and no one else was present in the room with me.Patient (or authorized healthcare sales representative supervisor) provided consent to proceed with the visit, expressed an understanding of privacy and security of the telemedicine visit, and gave permission to have a hospital sales representative supervisor in the room in order to assist with the visit and to conduct portions of the visit, as needed. I informed the patient (or authorized healthcare sales representative supervisor) that I reviewed their record and presented the opportunity for them to ask any questions regarding the visit today. The patient agreed to participate. History of Present Illness Reason for Consultation: stroke eval Requesting Physician: Delmi Mendez Pa-C Attending Physician: Gio Baltazar MD History of Present Illness 83 y/o female that presented with worsening left sided weakness. She states that on yesterday a home health nurse came by and was helping her at her medication. She states that at that time her nurse was concerned that she seemed to be having difficulty talking and drooping of her face on the left. She recommended that she present to the ED for further evaluation. She states that for the prior four days she had been having getting words out when speaking. She states that it would take awhile for her to say the words that she could think of. She states that her home health nurse was concerned that she was speaking slowly and slurred. She also notes that over the prior four days she was having difficulty gripping her walker with her left hand and her left leg seemed to also be weaker as she was dragging it. She had a stroke in November 2023 and had residual left sided weakness and speech impairment. She states that her weakness had improved with therapy over the last few months prior to the last few days, although it had not completely returned to baseline. She also felt that her speech had improved somewhat. On today, she states that the clarity of her speech has improved but she feels it is still slow. She states that for awhile now she has been experiencing blurred vision at the end of the day and also usually feels weaker at this time. She denies any diplopia and has not noticed any drooping of her eyelids. Allergies Allergy/AdvReac Type Severity Reaction Status Date / Time paroxetine Allergy Severe ANAPHYLAXIS Verified 02/08/24 13:35 mold Allergy Intermediate asthma Verified 02/08/24 13:35 symptoms pollen extracts Allergy Intermediate asthma Verified 02/08/24 13:35 symptoms Penicillins Allergy Mild Unknown Verified 02/08/24 13:35 vasquez AdvReac Intermediate gas and Verified 02/08/24 13:35 bloating with consuption of green or kidneys beans broccoli AdvReac Intermediate GAS Verified 02/08/24 13:35 crab AdvReac Intermediate diarrhea Verified 02/08/24 13:35 grapefruit AdvReac Intermediate BRONCHITIS Verified 02/08/24 13:35 orange AdvReac Intermediate BRONCHITIS Verified 02/08/24 13:35 peanut AdvReac Intermediate gas/bloatin Verified 02/08/24 13:35 g Home Medications Medication Instructions Recorded Confirmed Type atorvastatin 20 mg tablet 20 mg PO HS 08/22/19 02/08/24 History coenzyme Q10 100 mg capsule 100 mg PO QAM 08/22/19 02/08/24 History (CoQ-10) cyanocobalamin (vitamin B-12) 1,000 mcg PO HS 08/22/19 02/08/24 History 1,000 mcg capsule dexlansoprazole 60 mg 60 mg PO DAILYBB 08/22/19 02/08/24 History capsule,biphase delayed release (Dexilant) fluticasone propionate 50 2 spray intranasal QAM 08/22/19 02/08/24 History mcg/actuation nasal spray,suspension metformin 850 mg tablet 850 mg PO BIDM 08/22/19 02/08/24 History montelukast 10 mg tablet 10 mg PO HS 08/22/19 02/08/24 History bimatoprost 0.01 % eye drops 1 drp OPB HS 05/08/22 02/08/24 History (Lumigan) albuterol sulfate 90 mcg/actuation 2 puff inhalation Q4H PRN Wheezing 10/23/23 02/08/24 History aerosol inhaler ascorbic acid (vitamin C) 500 mg 500 mg PO QAM 10/23/23 02/08/24 History tablet aspirin 81 mg tablet,delayed 81 mg PO HS 10/23/23 02/08/24 History release (Ecotrin Low Strength) azelastine 137 mcg (0.1 %) nasal 2 spray intranasal HS 10/23/23 02/08/24 History spray aerosol cholecalciferol (vitamin D3) 25 25 mcg PO QAM 10/23/23 02/08/24 History mcg (1,000 unit) tablet fluticasone 250 mcg-salmeterol 50 1 inh inhalation BID 10/23/23 02/08/24 History mcg/dose blistr powdr for inhalation (Wixela Inhub) magnesium oxide 400 mg (241.3 mg 400 mg PO QAM 10/23/23 02/08/24 History magnesium) tablet oxybutynin chloride 10 mg 10 mg PO QAM 10/23/23 02/08/24 History tablet,extended release 24 hr zinc gluconate 50 mg tablet 50 mg PO QPM 10/23/23 02/08/24 History ketoconazole 2 % topical cream 1 applic topical BID 12/02/23 02/08/24 History levothyroxine 100 mcg tablet 100 mcg PO DAILYBB 12/02/23 02/08/24 History nifedipine 90 mg tablet,extended 90 mg PO DAILY 12/02/23 02/08/24 History release 24 hr potassium chloride 10 mEq 20 meq PO BID 12/03/23 02/08/24 History tablet,extended release(part/cryst) (Klor-Con M) apixaban 5 mg tablet (Eliquis) 5 mg PO Q12 12/23/23 02/08/24 History losartan 100 mg tablet 100 mg PO DAILY 02/08/24 02/08/24 History metoprolol tartrate 25 mg tablet 25 mg PO BID 02/08/24 02/08/24 History jgyoptewgpsq-fdrcclsv-luwuuc tablet 1 tab PO DAILY 02/08/24 02/08/24 History sodium chloride 1,000 mg soluble 1,000 mg PO BID 02/08/24 02/08/24 History tablet Patient History Medical History Right rotator cuff tear Right knee DJD CAD (coronary artery disease) stent in 1999 T2DM (type 2 diabetes mellitus) HTN (hypertension) HLD (hyperlipidemia) PAF (paroxysmal atrial fibrillation) DEMARIO (obstructive sleep apnea) Asthma CKD (chronic kidney disease) stage 3, GFR 30-59 ml/min Primary open angle glaucoma GERD (gastroesophageal reflux disease) Hypothyroidism History of placement of stent in LAD coronary artery Sleep apnea Surgical History History of rotator cuff surgery History of cataract extraction History of arthroscopic knee surgery History of tonsillectomy History of appendectomy Stented coronary artery Family History Father CHF (congestive heart failure) Mother Cancer Social History Smoking Status: Never smoker Second Hand Exposure: No; Do You Dip or Chew Tobacco: No; Tobacco Cessation Education Requested by Patient: No Hx Alcohol Use: No Hx Substance Use: No Preferred Language: Syriac Communication Ability: Effective Torch Brazer Required: No Beliefs That Will Affect Care: None marital status: Life Partner Current Living Situation: Significant Other Current Living Situation Comment: s/o Other Information That Helps Us Care for You: No Feels Safe at Home: Yes Safety Concerns: Feels Safe At This Time Assistive Devices: CPAP and Glasses Review of Systems Negative except as listed in HPI Physical Exam AAO X 3 No aphasia or dysarthria VFF grossly intact EOMI, no nystagmus Facial sensations intact ?mild left Nl flattening Tongue protrudes midline Motor: Moves all four extremities antigravity with no significant drift Sensation: Decreased sensation to light touch in left upper and lower extremity Cerebellar: FTN and HTS intact Results & Data Vital Signs (Past 12 Hours) Vital Signs Temp Pulse Pulse Resp BP Pulse Ox O2 Del Method 02/09/24 08:00 60 02/09/24 07:18 36.9 C 64 17 134/73 96 Room Air 02/09/24 02:37 36.6 C 63 18 122/65 97 Room Air 02/08/24 23:04 36.5 C 68 18 145/70 H 97 Room Air 02/08/24 22:04 Room Air Laboratory Results 7.72, HGB 13.1, HCT 40.7, Plts 294, NA 137, Potassium 3.5 (6.7), Carbon dioxide 26, Chloride 103, BUN 11, Creatinine 0.8, Glucose 162, Calcium 9.2, Magnesium 1.5, AST 12, ALT 9, Alkaline phosphatase 51, troponin 7.6, LDL 37, Urinalysis 1+ leukocyte esterase, negative nitrite, 1+ bacteria, SARS-COV-2 negative, influenza negativem RSV negative Diagnostic Findings CXR: No acute cardiopulmonary findings. CTH: No acute intracranial abnormality. Atrophy and microvascular ischemic changes. CTA head/neck:Involutional changes with chronic microvascular ischemic disease. Prior bilateral lens repair. Calcifications of the falx cerebri. Unremarkable CTA of the head. No stenosis or dissection within the bilateral common carotid, cervical internal carotid or vertebral arteries. MRI Brain: No evidence of acute intracranial pathology.
[2024-02-09] MEDS: MAGNESIUM SULFATE / D5W 1 GM/100 ML BAG IV ONE (10:13)
[2024-02-09] MEDS: ASPIRIN 81 MG ECTAB PO SCH (11:03)
--- NOTE | 2024-02-09 13:25 | Hospitalist Progress Note ---
Date of Service February 09, 2024 Assessment & Plan (1) Stroke-like symptoms: (2) Hypomagnesemia: (3) HTN (hypertension): (4) PAF (paroxysmal atrial fibrillation): (5) CAD (coronary artery disease): (6) Chronic anticoagulation: (7) T2DM (type 2 diabetes mellitus): (8) HLD (hyperlipidemia): (9) Hypothyroidism: (10) DEMARIO (obstructive sleep apnea): Plan Patient is an 83 yr female with H/O recent cardioembolic stroke in Nov 2023 now on Eliquis, paroxysmal atrial fibrillation, chronic diastolic heart failure (EF: 65-70%, TTE 2023), type 2 diabetes, hypothyroidism, dyslipidemia, DEMARIO on CPAP, mood disorder and other medical problems listed below who presents with dysart hria and worsening left-sided weakness over the past 3 days. Strokelike symptoms Likely recrudescence due to Infection H/o cardioembolic CVA in Nov 2023 --MRI Brain:No evidence of acute intracranial pathology. --Head CTA:Unremarkable CTA of the head. --Neck CTA:No stenosis or dissection within the bilateral common carotid, cervical internal carotid or vertebral arteries. --ECHO: Left ventricular wall motion is normal. Left residual. Normal. EF 65 to 70%. Aortic valve sclerosis mild, without significant aortic valve stenosis. Moderate posterior mitral annular calcification. Grade 1 diastolic dysfunction. Interatrial septum was intact without evidence of interatrial shunt. -- Lipid panel reviewed --HbA1c 5.6 Will obtain TSH, B12,AChR and MuSK antibodies per neurology Appreciate neurology input Continue PT OT, speech therapy eval Continue Eliquis, atorvastatin Fall precautions UTI Urine culture pending Empirically on Rocephin Hypomagnesemia Replete electrolytes as needed Monitor Chronic diastolic heart failure Last EF 65 to 70%, TTE 2023 Appears euvolemic CXR without acute cardiopulmonary changes CAD S/P stent Continue Aspirin, statin, Metoprolol, losartan Paroxysmal atrial fibrillation Continue metoprolol On Eliquis for anticoagulation Hypertension Continue metoprolol, nifedipine, losartan Hyperlipidemia Continue atorvastatin DEMARIO CPAP HS DM II Last HbA1c 6.3 Hold home agents SSI while in-patient BSG AC HS Hypothyroidism Continue levothyroxine Chronic anemia Monitor DVT Px: Eliquis Code status: FULL CODE Disposition PT OT prior to discharge Admission and Anticipated Discharge Date Admission Date: February 08, 2024 Subjective Patient is seen and examined at bedside Reports blurred vision which she attributes to glaucoma Admits to have dysuria but no hematuria, abdominal pain Left-sided weakness which she states having from prior stroke No significant dysarthria today Denies any chest pain, dyspnea, nausea, vomiting Review of Systems Review of Systems: All systems reviewed & are unremarkable except as noted in Subjective Physical Exam Physical Exam: Physical Exam: Vitals signs as noted above General Appearance:Moderately built and nourished, no apparent distress, Elderly Head: normocephalic, Atraumatic, Minimal Left Nasolabial fold flattening Eyes: normal inspection, EOMI Neck: supple, Trachea midline Respiratory/Chest: Normal breath sounds, CTA, No accessory muscle use Cardiovascular: S1, S2, No murmur Abdomen/GI:Soft, Non tender, Bowel sounds present Extremities/Musculoskeletal:normal inspection, Trace edema Neurologic/Psych:AAO,+Slow to respond, Left UE/LE 3-4/5 Skin: normal color, warm Results & Data Results & Data Vital Signs (Past 12 Hours) Vital Signs Temp Pulse Pulse Resp BP Pulse Ox O2 Del Method 02/09/24 11:43 36.5 C 68 18 110/68 93 Room Air 02/09/24 08:00 60 02/09/24 07:18 36.9 C 64 17 134/73 96 Room Air 02/09/24 02:37 36.6 C 63 18 122/65 97 Room Air Laboratory Results Short CBC 02/09/24 Range/Units 08:00 WBC 7.72 (4.8-10.8) K/ul Hgb 13.1 (12.0-16.0) g/dl Hct 40.7 (37.0-47.0) % Plt Count 294 (130-400) K/uL BMP 02/08/24 02/09/24 12:52 08:00 Sodium 138 137 Potassium 4.6 3.5 D Chloride 107 103 Carbon Dioxide 26 26 BUN 17 11 Creatinine 0.72 0.62 Glucose 106 H 162 H Calcium 9.5 9.2 Liver Function 02/08/24 Range/Units 12:52 Total Bilirubin 0.4 (0.2-1.0) mg/dl AST 12 L (13-39) U/L ALT 9 (7-52) U/L Alkaline Phosphatase 51 (34-104) U/L Albumin 3.7 (3.4-5.0) gm/dl Urine 02/08/24 Range/Units Unknown Urine Color Yellow Urine Appearance Clear (Clear) Urine pH 7.5 (4.5-7.5) Ur Specific [place] 1.020 (1.000-1.030) Urine Protein Negative (Negative) Urine Glucose (UA) Negative (Negative) (3) HTN (hypertension) Hypertension type: primary hypertension Qualified Code(s): I10 - Essential (primary) hypertension (5) CAD (coronary artery disease) Coronary Disease-Associated Artery/Lesion type: [place] artery [place] vs. tr ansplanted heart: [place] heart Associated angina: without angina Qualified Code(s): I25.10 - Atherosclerotic heart disease of [place] coronary artery without angina pectoris
--- NOTE | 2024-02-09 13:26 | Pharmacy Report ---
- Date of Service February 09, 2024 - Pharmacy CVA/TIA Medication Review Medications to Prevent Stroke handout has been added to the patients discharge packet. Antiplatelet(s) * Aspirin 81 mg daily Cholesterol * Currently on Atorvastatin 20 mg daily. Per neurology note, continue with this. * High intensity statin deferred due to age >75, and no evidence of atherosclerosis (cerebral, coronary, or PVD) DVT Prophylaxis * Eliquis therapeutic dose Therapeutic Anticoagulation * Hx Afib/Aflutter noted, and patient is currently receiving Eliquis 5 mg PO BID Type 2 Diabetes * Patient does not have T2DM
[2024-02-10 08:13] LABS: Hematocrit (blood only) 42.2 % (37.0-47.0); Hemoglobin 13.7 g/dl (12.0-16.0); Mean Corpuscular Hemoglobin 29.8 pg (25.0-34.0); Mean Corpuscular Hgb Conc 32.5 g/dL (32.0-36.0); Mean Corpuscular Volume 91.9 fL (80.0-100.0); Platelet Count 284 K/uL (130-400); RDW Coefficient of Variation 15.4 % (11.5-14.5); RDW Standard Deviation 51.5 fL (36.4-46.3); Red Blood Count 4.59 M/uL (4.20-5.40); White Blood Count 7.99 K/ul (4.8-10.8)
[2024-02-10 08:37] LABS: BUN Creatinine Ratio 23.7 (10-20); Est GFR (African American) 83.5 ml/min; Magnesium 1.7 mg/dl (1.7-2.4); Potassium 4.2 mmol/L (3.5-5.1)
[2024-02-10 08:52] LABS: Thyroid Stimulating Hormone 0.412 uIu/ml (0.300-4.500)
[2024-02-10] MEDS ORDERED: POLYETHYLENE (MIRALAX) 17 GM PACK PO PRN (10:57)
[2024-02-10] MEDS: POLYETHYLENE (MIRALAX) 17 GM PACK PO ONE (12:26)
--- NOTE | 2024-02-10 16:05 | Communication Note ---
Date of Service: February 10, 2024 Updated patient's son-POA (Philip Titus) over the phone. Prefers daily updates from providers regarding patient's care. Contact number: [phone].
--- NOTE | 2024-02-10 16:36 | Hospitalist Progress Note ---
Date of Service February 10, 2024 Assessment & Plan (1) Stroke-like symptoms: (2) Hypomagnesemia: (3) HTN (hypertension): (4) PAF (paroxysmal atrial fibrillation): (5) CAD (coronary artery disease): (6) Chronic anticoagulation: (7) T2DM (type 2 diabetes mellitus): (8) HLD (hyperlipidemia): (9) Hypothyroidism: (10) DEMARIO (obstructive sleep apnea): Plan Patient is an 83 yr female with H/O recent cardioembolic stroke in Nov 2023 now on Eliquis, paroxysmal atrial fibrillation, chronic diastolic heart failure (EF: 65-70%, TTE 2023), type 2 diabetes, hypothyroidism, dyslipidemia, DEMARIO on CPAP, mood disorder and other medical problems listed below who presents with dysart hria and worsening left-sided weakness over the past 3 days. Strokelike symptoms Likely recrudescence due to Infection H/o cardioembolic CVA in Nov 2023 --MRI Brain:No evidence of acute intracranial pathology. --Head CTA:Unremarkable CTA of the head. --Neck CTA:No stenosis or dissection within the bilateral common carotid, cervical internal carotid or vertebral arteries. --ECHO: Left ventricular wall motion is normal. Left residual. Normal. EF 65 to 70%. Aortic valve sclerosis mild, without significant aortic valve stenosis. Moderate posterior mitral annular calcification. Grade 1 diastolic dysfunction. Interatrial septum was intact without evidence of interatrial shunt. -- Lipid panel reviewed --HbA1c 5.6 Normal TSH Vitamin B12 levels elevated AChR antibody pending Will recommend MuSK antibody test as outpatient Appreciate neurology input Continue PT OT, speech therapy eval Continue Eliquis, atorvastatin Fall precautions Needs follow-up with neurology on discharge UTI Urine culture grew E. coli Continue Rocephin Day #2 Constipation Started on bowel regimen Consider getting an KUB if needed Hypomagnesemia Replete electrolytes as needed Monitor Chronic diastolic heart failure Last EF 65 to 70%, TTE 2023 Appears euvolemic CXR without acute cardiopulmonary changes CAD S/P stent Continue Aspirin, statin, Metoprolol, losartan Paroxysmal atrial fibrillation Continue metoprolol On Eliquis for anticoagulation Hypertension Continue metoprolol, nifedipine, losartan Hyperlipidemia Continue atorvastatin DEMARIO CPAP HS DM II Last HbA1c 6.3 Hold home agents SSI while in-patient BSG AC HS Hypothyroidism Continue levothyroxine Chronic anemia Monitor DVT Px: Eliquis Code status: FULL CODE Disposition Home with home Admission and Anticipated Discharge Date Admission Date: February 08, 2024 Subjective Patient is seen and examined at bedside Sitting in chair during my encounter States feeling much better today Reports constipation Still has some bladder pressure sensation No change in vision today Left-sided weakness better subjectively per patient Updated patient's son over the phone Denies any chest pain, dyspnea, nausea, vomiting Review of Systems Review of Systems: All systems reviewed & are unremarkable except as noted in Subjective Physical Exam Physical Exam: Physical Exam: Vitals signs as noted above General Appearance:Moderately built and nourished, no apparent distress, Elderly Head: normocephalic, Atraumatic, Minimal Left Nasolabial fold flattening Eyes: normal inspection, EOMI Neck: supple, Trachea midline Respiratory/Chest: Normal breath sounds, CTA, No accessory muscle use Cardiovascular: S1, S2, No murmur Abdomen/GI:Soft, Non tender, Bowel sounds present Extremities/Musculoskeletal:normal inspection, Trace edema Neurologic/Psych:AAO,+Slow to respond, Left UE/LE 3-4/5 Skin: normal color, warm Results & Data Results & Data Vital Signs (Past 12 Hours) Vital Signs Temp Pulse Pulse Resp BP BP Pulse Ox 02/10/24 15:15 36.4 C L 61 18 120/68 97 02/10/24 15:10 64 02/10/24 11:32 36.5 C 58 L 18 140/77 99 02/10/24 09:00 02/10/24 09:00 57 L 02/10/24 07:48 36.3 C L 64 16 130/73 97 O2 Del Method 02/10/24 15:15 Room Air 02/10/24 15:10 02/10/24 11:32 Room Air 02/10/24 09:00 Room Air 02/10/24 09:00 02/10/24 07:48 Room Air Laboratory Results Short CBC 02/10/24 Range/Units 07:47 WBC 7.99 (4.8-10.8) K/ul Hgb 13.7 (12.0-16.0) g/dl Hct 42.2 (37.0-47.0) % Plt Count 284 (130-400) K/uL BMP 02/10/24 07:47 Sodium 137 Potassium 4.2 Chloride 104 Carbon Dioxide 26 BUN 18 Creatinine 0.76 Glucose 117 H Calcium 10.0 (3) HTN (hypertension) Hypertension type: primary hypertension Qualified Code(s): I10 - Essential (primary) hypertension (5) CAD (coronary artery disease) Coronary Disease-Associated Artery/Lesion type: [place] artery [place] vs. transplanted heart: [place] heart Associated angina: without angina Qualified Code(s): I25.10 - Atherosclerotic heart disease of [place] coronary artery without angina pectoris
[2024-02-10] MEDS: DOCUSATE SODIUM 100 MG CAP PO SCH (21:49)
--- NOTE | 2024-02-11 05:40 | Electrocardiogram Report ---
Test Reason : Blood Pressure : / mmHG Vent. Rate : 059 BPM Atrial Rate : 059 BPM P-R Int : 190 ms QRS Dur : 090 ms QT Int : 416 ms P-R-T Axes : 078 -13 051 degrees QTc Int : 411 ms Sinus bradycardia Septal infarct , age undetermined Abnormal ECG When compared with ECG of 22-DEC-2023 22:42, Septal infarct is now Present QT has shortened Confirmed by Elmo Brown ([id number]) on 02/11/2024 5:40:15 AM Referred By: REFERRED SELF Confirmed By:Elmo Brown
[2024-02-11 06:57] LABS: Hematocrit (blood only) 37.7 % (37.0-47.0); Hemoglobin 11.8 g/dl (12.0-16.0); Mean Corpuscular Hemoglobin 29.3 pg (25.0-34.0); Mean Corpuscular Hgb Conc 31.3 g/dL (32.0-36.0); Mean Corpuscular Volume 93.5 fL (80.0-100.0); Mean Platelet Volume 10.9 fL (9.4-12.4); Platelet Count 263 K/uL (130-400); RDW Coefficient of Variation 15.3 % (11.5-14.5); RDW Standard Deviation 53.5 fL (36.4-46.3); Red Blood Count 4.03 M/uL (4.20-5.40); White Blood Count 6.88 K/ul (4.8-10.8)
[2024-02-11 07:27] LABS: BUN Creatinine Ratio 23.8 (10-20); Calcium 9.4 mg/dl (8.6-10.3); Creatinine Clr Calc Pharmacy 50.4 ml/min; Est GFR (African American) 78.5 ml/min; Est GFR (Non-African American) 67.7 ml/min; Magnesium 1.6 mg/dl (1.7-2.4); Potassium 4.6 mmol/L (3.5-5.1)
[2024-02-11] MEDS: MAGNESIUM OXIDE 400 MG TAB PO SCH (08:30)
[2024-02-11] MEDS: POTASSIUM CHLORIDE CRTAB 20 MEQ TABCR PO SCH (08:34)
--- NOTE | 2024-02-11 14:15 | Discharge Summary ---
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 Patient notes she has had difficulty "getting her words out" over the past few days. Has also noted increased weakness on the left side, particularly her left foot, when ambulating with walker. Have left-sided weakness as a deficit from her cardioembolic stroke in November, but that had improved over time with therapy until this past Wednesday. Also notes a new tremor in her right foot that son noted is new in the past few days. Did have a left foot tremor noted during the November timeframe of her stroke. Home health nurse came today to check on patient and felt she may have a left facial droop with new drooling, as well as dysarthric speech and sent her in for further evaluation. Son at bedside also endorses that patient is having a more difficult time getting her words out than her baseline. Denies any confusion. No fever, chills, lightheadedness, chest pain, shortness of breath, nausea, vomiting, abdominal pain, dysuria, diarrhea or constipation. Has been taking all medications as prescribed including Eliquis last this morning. Admission Exam Per Admitting Provider General Appearance: WD/WN, vitals as above, NAD, sitting up in bed, pleasant, conversing easily Head: normocephalic, atraumatic Eyes: normal inspection, PERRL, conjunctivae normal, anicteric sclerae ENT: external ear and nose normal, oropharynx normal Neck: normal visual inspection, trachea midline, no thyromegaly Respiratory: normal respiratory effort, lungs clear to auscultation, no wheeze, rales, rhonchi. No accessory muscle use Cardiovascular: regular rate, rhythm, no murmur, normal peripheral pulses, no BLE edema. Vessels: no JVD Chest: normal inspection of chest Abdomen/GI: normal bowel sounds, soft, nontender, no hepatosplenomegaly Extremities/Musculoskeletal: no cyanosis or clubbing, extremities motor strength 5/5 (4/5 R shoulder 2/2 former injury) Neurologic: PERRL, EOMI, accommodation nl, no face palsy, + dysarthria, CN's II-XI intact bilaterally and moves all extremities Psychiatric: A+Ox3, euthymic affect Skin: no rashes, normal color, warm/dry Principal Dx & Hospital Course #1 = Principal Diagnosis (1) Stroke-like symptoms: (2) Hypomagnesemia: (3) HTN (hypertension): (4) PAF (paroxysmal atrial fibrillation): (5) CAD (coronary artery disease): (6) Chronic anticoagulation: (7) T2DM (type 2 diabetes mellitus): (8) HLD (hyperlipidemia): (9) Hypothyroidism: (10) DEMARIO (obstructive sleep apnea): Plan Ms. Palacios is an 83 yr female with H/O recent cardioembolic stroke in Nov 2023 now on Eliquis, paroxysmal atrial fibrillation, chronic diastolic heart failure (EF: 65-70%, TTE 2023), type 2 diabetes, hypothyroidism, dyslipidemia, DEMARIO on CPAP, mood disorder and other medical problems listed below who presented to ED on 02/07 with dysarthria and worsening left-sided weakness over the past 3 days. Imaging was negative for any acute neurologic deficits. Symptoms thought to be recrudescence of prior stroke given active UTI. Patient treated with IV CTX and notable improvement in symptoms over course of admission. Patient cleared for discharge home with Home health services. #Strokelike symptoms Likely recrudescence due to Infection H/o cardioembolic CVA in Nov 2023 --MRI Brain:No evidence of acute intracranial pathology. --Head CTA:Unremarkable CTA of the head. --Neck CTA:No stenosis or dissection within the bilateral common carotid, cervical internal carotid or vertebral arteries. --ECHO: Left ventricular wall motion is normal. Left residual. Normal. EF 65 to 70%. Aortic valve sclerosis mild, without significant aortic valve stenosis. Moderate posterior mitral annular calcification. Grade 1 diastolic dysfunction. Interatrial septum was intact without evidence of interatrial shunt. -- Lipid panel reviewed --HbA1c 5.6 Normal TSH Vitamin B12 levels elevated AChR antibody pending Will recommend MuSK antibody test as outpatient Continue PT OT, speech therapy eval Continue Eliquis, atorvastatin Needs follow-up with neurology on discharge UTI Urine culture grew E. coli Continue Rocephin Day #2, started on Cefdinir 300mg BID for continuation of course x 5 days Constipation BM prior to dispo Hypomagnesemia Replete electrolytes as needed replaced oral Chronic diastolic heart failure Last EF 65 to 70%, TTE 2023 Appears euvolemic CXR without acute cardiopulmonary changes CAD S/P stent Continue Aspirin, statin, Metoprolol, losartan Paroxysmal atrial fibrillation Continue metoprolol On Eliquis for anticoagulation Hypertension Continue metoprolol, nifedipine, losartan Hyperlipidemia Continue atorvastatin DEMARIO CPAP HS DM II Last HbA1c 6.3 Hold home agents SSI while in-patient BSG AC HS Hypothyroidism Continue levothyroxine Chronic anemia stable On day of discharge, patient was afebrile, eating well, and reports feeling good to go home. Son/POA present at bedside and comfortable with plan for home. Discharge Exam Constitutional WD/WN, vitals as above Respiratory normal respiratory effort, lungs clear to auscultation Cardiovascular RRR, no murmur, no edema Gastrointestinal (Abdomen) normal bowel sounds, soft, nontender, no hepatosplenomegaly Updated Medication List Medication Instructions Recorded Confirmed Type atorvastatin 20 mg tablet 20 mg PO HS 08/22/19 02/08/24 History coenzyme Q10 100 mg capsule 100 mg PO QAM 08/22/19 02/08/24 History (CoQ-10) cyanocobalamin (vitamin B-12) 1,000 mcg PO HS 08/22/19 02/08/24 History 1,000 mcg capsule dexlansoprazole 60 mg 60 mg PO DAILYBB 08/22/19 02/08/24 History capsule,biphase delayed release (Dexilant) fluticasone propionate 50 2 spray intranasal QAM 08/22/19 02/08/24 History mcg/actuation nasal spray,suspension metformin 850 mg tablet 850 mg PO BIDM 08/22/19 02/08/24 History montelukast 10 mg tablet 10 mg PO HS 08/22/19 02/08/24 History bimatoprost 0.01 % eye drops 1 drp OPB HS 05/08/22 02/08/24 History (Lumigan) albuterol sulfate 90 mcg/actuation 2 puff inhalation Q4H PRN Wheezing 10/23/23 02/08/24 History aerosol inhaler ascorbic acid (vitamin C) 500 mg 500 mg PO QAM 10/23/23 02/08/24 History tablet aspirin 81 mg tablet,delayed 81 mg PO HS 10/23/23 02/08/24 History release (Ecotrin Low Strength) azelastine 137 mcg (0.1 %) nasal 2 spray intranasal HS 10/23/23 02/08/24 History spray aerosol cholecalciferol (vitamin D3) 25 25 mcg PO QAM 10/23/23 02/08/24 History mcg (1,000 unit) tablet fluticasone 250 mcg-salmeterol 50 1 inh inhalation BID 10/23/23 02/08/24 History mcg/dose blistr powdr for inhalation (Wixela Inhub) magnesium oxide 400 mg (241.3 mg 400 mg PO QAM 10/23/23 02/08/24 History magnesium) tablet oxybutynin chloride 10 mg 10 mg PO QAM 10/23/23 02/08/24 History tablet,extended release 24 hr zinc gluconate 50 mg tablet 50 mg PO QPM 10/23/23 02/08/24 History ketoconazole 2 % topical cream 1 applic topical BID 12/02/23 02/08/24 History levothyroxine 100 mcg tablet 100 mcg PO DAILYBB 12/02/23 02/08/24 History nifedipine 90 mg tablet,extended 90 mg PO DAILY 12/02/23 02/08/24 History release 24 hr potassium chloride 10 mEq 20 meq PO BID 12/03/23 02/08/24 History tablet,extended release(part/cryst) (Klor-Con M) apixaban 5 mg tablet (Eliquis) 5 mg PO Q12 12/23/23 02/08/24 History losartan 100 mg tablet 100 mg PO DAILY 02/08/24 02/08/24 History metoprolol tartrate 25 mg tablet 25 mg PO BID 02/08/24 02/08/24 History ggkogmgvnhwg-korinucc-fajdfg tablet 1 tab PO DAILY 02/08/24 02/08/24 History sodium chloride 1,000 mg soluble 1,000 mg PO BID 02/08/24 02/08/24 History tablet cefdinir 300 mg capsule 300 mg PO BID 5 days #10 caps 02/11/24 Rx Hospital Stay Data Consultations 02/08/24 17:56 Consult Neurology Routine Diagnostic Imagining Performed 02/08/24 12:41 CT angio head w con Stat CT angio neck with con Stat CT head/brain wo con Stat 02/08/24 17:08 MR brain wo con Routine Pending Results Patient Have Any Pending Studies at Discharge: No Discharge Instructions Given to Patient (Per Discharging Provider) You were admitted for concerns of stroke, which likely was recurrence of prior stroke like symptoms exacerbated given infection from UTI You improved with antibiotic treatment. It is recommended that you continue the following: -Cefdinir 300mg two times daily (your next dose is before bedtime 02/10) There were no other changes to your medications during your admission. It is recommended you follow up closely with your Neurologist, as well as your PCP Home Health Attestation I certify that this patient is under my care and that I, or a physicians conference assistant working with me, had a face to-face encounter that meets the home health [id number] encounter requirements with this patient. The encounter with the patient was in whole, or in part, for the following medical condition, which is the primary reason for home health care (list medical condition): Stroke s/s I certify that, based on my findings, the following services are medically necessary home health services: My clinical findings support the need for the above services because: OT Assess ADL Status and Restore Function w ADLs PT Assessment for Endurance / Balance / Strength PT Eval for Safety and Mobility PT Eval for Safety, Gait Training, Assistive Devices PT Gait and Balance Training, Strengthening and Safety Skilled Nsg Assessment ST Eval Cognition and Speech and Ensure Safety w Oral Feedings Further, I certify that my clinical findings support that this patient is homebound (i.e. absences from home require considerable and taxing effort and are for medical reasons or druze services or infrequently or of short duration when for other reasons) because: Supportive Aid - Walker Certification for Home Health Services: Based on the above findings, I certify that this patient is confined to the home and needs intermittent penitentiary care, physical therapy and/or speech therapy or continues to need occupational therapy. The patient is under my care, and I have initiated the establishment of the plan of care. This patient will be followed by a physician who will periodically review the plan of care. Total Time Total Time Spent Total Time Spent (In Minutes): 45
[2024-02-11] MEDS: CEFDINIR 300 MG CAP PO SCH (14:45)
== END 2024-02-11 18:16 | disposition home health service (06) | DRG 690 ==
LOC: ED 12:37 → EDINP 15:08 → SUATTDRO 15:08 → 2S 19:36

== ENCOUNTER 2024-08-03 22:20 | Inpatient (IN) ==
--- NOTE | 2024-08-03 22:41 | Emergency Department Note ---
History of Present Illness General Chief complaint: Syncope Stated complaint: Syncope, Vomiting, Chest Pain, Headache Time Seen by Provider: 08/03/24 22:27 History of Present Illness This is an 84-year-old female with PMH of recent cardioembolic stroke in Nov 2023 now on Eliquis, paroxysmal atrial fibrillation, chronic diastolic heart failure (EF: 65-70%, TTE 2023), type 2 diabetes, hypothyroidism, dyslipidemia, DEMARIO on CPAP, mood disorder presents the ER for vomiting who passed out on the bed and chest pain. Patient denies fever, chills, cough, congestion, diarrhea, abdominal pain. Patient states she felt fine all day had dinner and then lay down throughout passed out and developed chest pain. EMS gave nitroglycerin. Home Medications Medication Instructions Recorded Confirmed Type atorvastatin 20 mg tablet 20 mg PO HS 08/22/19 08/04/24 History dexlansoprazole 60 mg 60 mg PO DAILYBB 08/22/19 08/04/24 History capsule,biphase delayed release (Dexilant) metformin 850 mg tablet 850 mg PO BIDM 08/22/19 08/04/24 History montelukast 10 mg tablet 10 mg PO HS 08/22/19 08/04/24 History bimatoprost 0.01 % eye drops 1 drp OPB HS 05/08/22 08/04/24 History (Sumeet) fluticasone 250 mcg-salmeterol 50 1 inh inhalation BID 10/23/23 08/04/24 History mcg/dose blistr powdr for inhalation (Wix[facility] Inhub) oxybutynin chloride 10 mg 10 mg PO QAM 10/23/23 08/04/24 History tablet,extended release 24 hr levothyroxine 100 mcg tablet 100 mcg PO DAILYBB 12/02/23 08/04/24 History nifedipine 90 mg tablet,extended 90 mg PO DAILY 12/02/23 08/04/24 History release 24 hr apixaban 5 mg tablet (Eliquis) 5 mg PO Q12 12/23/23 08/04/24 History losartan 100 mg tablet 100 mg PO DAILY 02/08/24 08/04/24 History metoprolol tartrate 25 mg tablet 12.5 mg PO BID 02/08/24 08/04/24 History ktxnxbpnfrta-uwalousw-gfdilp tablet 1 tab PO DAILY 02/08/24 08/04/24 History sodium chloride 1,000 mg soluble 1,000 mg PO BID 02/08/24 08/04/24 History tablet ascorbic acid (vitamin C) 500 mg 500 mg PO DAILY 08/04/24 08/04/24 History tablet (Vitamin C) [facility] 08/04/24 08/04/24 History Verio test strips) cholecalciferol (vitamin D3) 25 25 mcg PO DAILY 08/04/24 08/04/24 History mcg (1,000 unit) capsule (Vitamin D3) coenzyme Q10 100 mg capsule 100 mg PO DAILY 08/04/24 08/04/24 History (CoQ-10) cyanocobalamin (vitamin B-12) 1,000 mcg PO DAILY 08/04/24 08/04/24 History 1,000 mcg tablet (Vitamin B-12) furosemide 20 mg tablet 20 mg PO 1XD 08/04/24 08/04/24 History lancets 30 gauge ([facility] 08/04/24 08/04/24 History Plus Lancet) magnesium oxide 400 mg (241.3 mg 400 mg PO DAILY 08/04/24 08/04/24 History magnesium) tablet potassium chloride 20 mEq 20 meq PO 1XD 08/04/24 08/04/24 History tablet,extended release(part/cryst) (Klor-Con M) ramelteon 8 mg tablet 8 mg PO HS 08/04/24 08/04/24 History zinc 50 mg tablet 50 mg PO DAILY 08/04/24 08/04/24 History Allergies Allergy/AdvReac Type Severity Reaction Status Date / Time paroxetine Allergy Severe ANAPHYLAXIS Verified 02/08/24 13:35 mold Allergy Intermediate asthma Verified 02/08/24 13:35 symptoms pollen extracts Allergy Intermediate asthma Verified 02/08/24 13:35 symptoms Penicillins Allergy Mild Unknown Verified 02/08/24 13:35 vasquez AdvReac Intermediate gas and Verified 02/08/24 13:35 bloating with consuption of green or kidneys beans broccoli AdvReac Intermediate GAS Verified 02/08/24 13:35 crab AdvReac Intermediate diarrhea Verified 02/08/24 13:35 grapefruit AdvReac Intermediate BRONCHITIS Verified 02/08/24 13:35 orange AdvReac Intermediate BRONCHITIS Verified 02/08/24 13:35 peanut AdvReac Intermediate gas/bloatin Verified 02/08/24 13:35 g Past Med/Surg History Problem List Drug-induced sinus bradycardia Hiatal hernia with GERD Vasovagal syncope Acute hypoxemic respiratory failure Hypomagnesemia (Acute) Vomiting (Acute) Chest pain (Acute) Syncope (Acute) Hypomagnesemia (Acute) Stroke-like symptoms (Acute) Nausea & vomiting (Acute) Arthralgia Embolic stroke Elevated troponin Near syncope Ambulatory dysfunction (Acute) Chronic pain in left foot (Acute) Hypomagnesemia (Acute) Generalized weakness (Acute) Osteoarthritis of ankle, left HTN (hypertension) Left ankle swelling (Acute) Hypomagnesemia (Acute) Syncope and collapse (Acute) Right rotator cuff tear Right knee DJD Hypokalemia CAD (coronary artery disease) (Chronic) stent in 1999 Anemia (Acute) Postoperative bleeding from mouth (Acute) Orthostatic syncope (Acute) Chronic anticoagulation (Acute) Near syncope DVT prophylaxis Postoperative bleeding from mouth History of rotator cuff surgery (Chronic) History of cataract extraction (Chronic) T2DM (type 2 diabetes mellitus) (Chronic) HTN (hypertension) (Chronic) HLD (hyperlipidemia) (Chronic) PAF (paroxysmal atrial fibrillation) (Chronic) DEMARIO (obstructive sleep apnea) (Chronic) Asthma (Chronic) CKD (chronic kidney disease) stage 3, GFR 30-59 ml/min (Chronic) Primary open angle glaucoma (Chronic) History of arthroscopic knee surgery (Chronic) History of tonsillectomy (Chronic) GERD (gastroesophageal reflux disease) (Chronic) History of appendectomy (Chronic) Hypothyroidism (Chronic) History of placement of stent in LAD coronary artery (Chronic) Sleep apnea (Chronic) Stented coronary artery (Chronic) Family History Father CHF (congestive heart failure) Mother Cancer Social History Smoking Status: Never smoker Second Hand Exposure: No; Do You Dip or Chew Tobacco: No; Hx Alcohol Use: No Hx Substance Use: No Preferred Language: Syriac Communication Ability: Effective 21 Dealer Required: No Beliefs That Will Affect Care: None marital status: Life Partner Current Living Situation: Significant Other Current Living Situation Comment: s/o Feels Safe at Home: Yes Safety Concerns: Feels Safe At This Time Assistive Devices: Walker Review of Systems A total of 10 systems reviewed and were otherwise negative Physical Exam Vital Signs Vital Signs - 24 hr 08/03/24 22:25 08/03/24 22:36 08/03/24 22:36 Temperature 36.5 C Temperature Source Oral Pulse Rate 77 76 Pulse Rate [Apical] Respiratory Rate 12 Respiratory Effort / Characteristics Non-Labored Spontaneous Respiratory Depth Normal Respiratory Pattern Regular Blood Pressure 146/81 H Blood Pressure [Right Arm] Blood Pressure Mean 102 Blood Pressure Mean [Right Arm] Blood Pressure Position [Right Arm] Pulse Oximetry 94 94 Oxygen Delivery Method Room Air Room Air Oxygen Flow Rate 0 Sepsis Recent Fever Within 48 Hours No Sepsis New/Unexplained Change in Mental Status N/A Sepsis Action Taken by Nursing No Action Required Oxygen Flow Rate - Titration Pulse Oximetry Post Tiitration 08/03/24 22:36 08/03/24 23:09 08/04/24 00:15 Temperature Temperature Source Pulse Rate 99 H 65 Pulse Rate [Apical] Respiratory Rate 18 12 Respiratory Effort / Characteristics Respiratory Depth Respiratory Pattern Blood Pressure 146/81 H 154/82 H Blood Pressure [Right Arm] Blood Pressure Mean 102 106 Blood Pressure Mean [Right Arm] Blood Pressure Position [Right Arm] Pulse Oximetry 94 92 95 Oxygen Delivery Method Room Air Oxygen Flow Rate Sepsis Recent Fever Within 48 Hours Sepsis New/Unexplained Change in Mental Status Sepsis Action Taken by Nursing Oxygen Flow Rate - Titration Pulse Oximetry Post Tiitration 08/04/24 01:06 08/04/24 01:48 08/04/24 02:00 Temperature Temperature Source Pulse Rate 60 59 L Pulse Rate [Apical] Respiratory Rate 18 18 Respiratory Effort / Characteristics Respiratory Depth Respiratory Pattern Blood Pressure 122/57 L 114/60 114/60 Blood Pressure [Right Arm] Blood Pressure Mean 78 78 89 Blood Pressure Mean [Right Arm] Blood Pressure Position [Right Arm] Pulse Oximetry 94 94 Oxygen Delivery Method Oxygen Flow Rate Sepsis Recent Fever Within 48 Hours Sepsis New/Unexplained Change in Mental Status Sepsis Action Taken by Nursing Oxygen Flow Rate - Titration Pulse Oximetry Post Tiitration 08/04/24 02:10 08/04/24 02:22 08/04/24 04:00 Temperature Temperature Source Pulse Rate 56 L Pulse Rate [Apical] 56 L Respiratory Rate 22 Respiratory Effort / Characteristics Non-Labored Respiratory Depth Respiratory Pattern Regular Blood Pressure Blood Pressure [Right Arm] 139/64 Blood Pressure Mean Blood Pressure Mean [Right Arm] 89 Blood Pressure Position [Right Arm] Lying Pulse Oximetry 85 L 99 Oxygen Delivery Method Room Air Nasal Cannula Room Air Oxygen Flow Rate 0 Sepsis Recent Fever Within 48 Hours Sepsis New/Unexplained Change in Mental Status Sepsis Action Taken by Nursing Oxygen Flow Rate - Titration 2 Pulse Oximetry Post Tiitration 97 VITALS: Vitals are noted on the nurse's note and reviewed by myself. Vital signs stable. GENERAL: Pleasant elderly female following commands, in no acute distress, nondiaphoretic, well-developed well-nourished. SKIN: The skin was without rashes, erythema, edema, or bruising. There is no tenting of the skin. Capillary reflex less than 2 seconds. HEAD: Normocephalic atraumatic. EARS: External auditory canals clear EYES: Pupils equal round and reactive to light and accommodation. Conjunctivae without injection, sclerae without icterus. Extraocular movements intact. NOSE: Patent, no discharge. MOUTH: Mucous membranes moist. Pharynx without erythema or exudate. Uvula midline. Airway patent. Tongue does not deviate. NECK: Supple without nuchal rigidity. No lymphadenopathy. No thyromegaly. Cervical spine is nontender. No JVD. HEART: Regular rate and rhythm LUNGS: Clear to auscultation bilaterally without wheezes, rales or rhonchi. No retractions or accessory muscle use. ABDOMEN: Positive bowel sounds x 4. Normal tympanic percussion. Soft, nontender, without masses or organomegaly. Gonzalez sign negative. No guarding or rebound tenderness. No CVA tenderness MUSCULOSKELETAL: No muscle atrophy, erythema, or edema noted. NEURO: Patient was alert and oriented to person place and time. Normal sensation to light and sharp touch. No focal neurological deficits. Course Administered Medications Amlodipine Besylate (Amlodipine Besylate 5 Mg Tab) 10 mg PO QAM [facility] Stop: 09/03/24 11:29 Last Admin: 08/04/24 12:34 Dose: 10 mg Documented By: REGAN Apixaban (Apixaban 5 Mg Tablet) 5 mg PO Q12 ALYSA Stop: 09/03/24 08:59 Last Admin: 08/04/24 08:13 Dose: 5 mg Documented By: REGAN Cyanocobalamin (Cyanocobalamin (B-12) 500 Mcg Tablet) 1,000 mcg PO DAILY ALYSA Stop: 09/03/24 08:59 Last Admin: 08/04/24 08:15 Dose: 1,000 mcg Documented By: REGAN Fluticasone/Vilanterol (Fluticasone/Vilanterol 200/25mcg 14 Puffs/Inhaler) 1 puffs INH DAILY [facility]; Protocol Stop: 09/03/24 08:59 Last Admin: 08/04/24 08:17 Dose: 1 puffs Documented By: REGAN Insulin Aspart (Insulin Aspart Per Unit Charge) 0 units SC ACHS ALYSA Stop: 09/03/24 07:29 Last Admin: 08/04/24 12:31 Dose: Not Given Documented By: Admin: 08/04/24 08:24 Dose: 1 units Documented By: REGAN Co-signed By: GERMANIA Levothyroxine Sodium (Levothyroxine Sodium 100 Mcg Tablet) 100 mcg PO DAILYBB ALYSA Stop: 09/03/24 06:29 Last Admin: 08/04/24 08:13 Dose: 100 mcg Documented By: REGAN Magnesium Oxide (Magnesium Oxide 400 Mg Tab) 400 mg PO BID ALYSA Stop: 09/03/24 11:44 Last Admin: 08/04/24 12:34 Dose: 400 mg Documented By: REGAN Metoprolol Tartrate (Metoprolol Tartrate 25 Mg Tab) 12.5 mg PO BID ALYSA Stop: 09/03/24 08:59 Last Admin: 08/04/24 08:16 Dose: 12.5 mg Documented By: REGAN Miscellaneous (Order Awaiting Action: Ramelteon) 1 each N/A QS ALYSA Stop: 09/03/24 07:59 Last Admin: 08/04/24 12:35 Dose: Not Given Documented By: Admin: 08/04/24 08:22 Dose: Not Given Documented By: REGAN Multivitamins/Minerals (Cerovite Adv Formula Tab) 1 tab PO DAILY ALYSA Stop: 09/03/24 08:59 Last Admin: 08/04/24 08:16 Dose: 1 tab Documented By: REGAN Oxybutynin Chloride (Oxybutynin Chloride Xl 5 Mg Tabcr) 10 mg PO QAM ALYSA Stop: 09/03/24 08:59 Last Admin: 08/04/24 08:14 Dose: 10 mg Documented By: REGAN Pantoprazole Sodium (Pantoprazole 40 Mg Tab) 40 mg PO BID ALYSA Stop: 09/03/24 08:59 Last Admin: 08/04/24 08:12 Dose: 40 mg Documented By: REGAN Discontinued Medications Sodium Chloride (Nss) 500 mls @ 999 mls/hr IV .Q31M ALYSA Stop: 08/03/24 23:15 Last Infusion: 08/03/24 23:31 Dose: Infused Documented By: Admin: 08/03/24 22:56 Dose: 999 mls/hr Documented By: DARLING Famotidine (Pepcid 20mg Iv Push) 20 mg in 5 mls @ 2.5 mls/min IV NOW STA Stop: 08/03/24 22:42 Last Admin: 08/03/24 22:56 Dose: 2.5 mls/min Documented By: DARLING Magnesium Sulfate/Dextrose (Magnesium Sulfate / D5w) 1 gm in 100 mls @ 100 mls/hr IV Q1H ALYSA Stop: 08/04/24 01:37 Last Infusion: 08/04/24 02:29 Dose: Infused Documented By: Admin: 08/04/24 01:20 Dose: 100 mls/hr Documented By: Infusion: 08/04/24 01:12 Dose: Infused Documented By: Admin: 08/04/24 00:10 Dose: 100 mls/hr Documented By: DRAKE Magnesium Sulfate/Dextrose (Magnesium Sulfate / D5w) 1 gm in 100 mls @ 50 mls/hr IV ONE ONE Stop: 08/04/24 06:14 Last Infusion: 08/04/24 06:15 Dose: Infused Documented By: Admin: 08/04/24 04:04 Dose: 50 mls/hr Documented By: KRISSY Ioversol (Optiray 320 125ml) 125 ml IV ONCE ONE Stop: 08/04/24 00:04 Last Admin: 08/04/24 00:03 Dose: 118 ml Documented By: LEIGHA Losartan Potassium (Losartan Potassium 50 Mg Tab) 100 mg PO NOW STA Stop: 08/04/24 06:56 Last Admin: 08/04/24 08:12 Dose: 100 mg Documented By: REGAN Nifedipine (Nifedipine Extended Rel 30 Mg Tabcr) 90 mg PO DAILY ALYSA Stop: 09/03/24 08:59 Last Admin: 08/04/24 08:14 Dose: 90 mg Documented By: REGAN Ondansetron HCl (Ondansetron Inj 2 Mg/Ml 2 Ml Vial) 4 mg IV NOW STA Stop: 08/03/24 22:42 Last Admin: 08/03/24 22:56 Dose: 4 mg Documented By: DARLING Medical Decision Making Medical Records Attestation: I reviewed the patient's medical records. Home Medications Current Medication List: was personally reviewed by me Laboratory Data Attestation: I reviewed the patient's lab results. 08/04/24 05:35 08/04/24 05:35 Lab Results 08/03/24 08/03/24 08/03/24 Range/Units 22:30 22:37 22:41 WBC 8.68 (4.8-10.8) K/ul RBC 4.02 L (4.20-5.40) M/uL Hgb 12.4 (12.0-16.0) g/dl POC Hgb 12.9 (12.0-16.0) g/dl Hct 36.6 L (37.0-47.0) % POC Hct 38 (37-47) % MCV 91.0 (80.0-100.0) fL MCH 30.8 (25.0-34.0) pg MCHC 33.9 (32.0-36.0) g/dL RDW Std Deviation 47.2 H (36.4-46.3) fL RDW Coeff of Stoney 13.9 (11.5-14.5) % Plt Count 266 (130-400) K/uL MPV 12.1 (9.4-12.4) fL Immature Gran % (Auto) 0.1 % Neut % (Auto) 67.6 % Lymph % (Auto) 25.0 % [place] % (Auto) 5.6 % Eos % (Auto) 1.2 % Baso % (Auto) 0.5 % Neut # (Auto) 5.87 (1.40-6.50) K/uL Lymph # (Auto) 2.17 (1.20-3.40) K/uL [place] # (Auto) 0.49 (0.11-0.59) K/uL Eos # (Auto) 0.10 (0.00-0.50) K/uL Baso # (Auto) 0.04 (0.00-0.20) K/uL Immature Gran # (Auto) 0.01 (0.01-0.20) K/uL POC Sodium 138 (135-144) mmol/L Sodium 138 (136-145) mmol/L POC Potassium 3.7 (3.3-5.0) mmol/L Potassium 3.8 (3.5-5.1) mmol/L POC Chloride 103 (101-112) mmol/L Chloride 103 (98-107) mmol/L Carbon Dioxide 23 (21-32) mmol/L POC Total CO2 22 L (24-31) mmol/L Anion Gap 12 H (3-11) POC Anion Gap 17.0 (16-25) mmol/L POC BUN 18 (7-18) mg/dl BUN 19 (6-23) mg/dl Creatinine 0.66 (0.6-1.2) mg/dl POC Creatinine 0.6 (0.6-1.3) mg/dl Est Cr Clr Drug Dosing 54.4 ml/min Est GFR ( Amer) 93.4 ml/min Est GFR (Non-Af Amer) 80.6 ml/min BUN/Creatinine Ratio 28.8 H (10-20) Glucose 175 H (70-99(Fasting)) mg/dl POC Glucose (other) 176 H (70-99) mg/dl Calcium 9.5 (8.6-10.3) mg/dl POC Ioniz Calcium Geni 1.19 (1.12-1.32) mmol/l Magnesium 1.3 L (1.7-2.4) mg/dl Total Bilirubin 0.3 (0.2-1.0) mg/dl AST 14 (13-39) U/L ALT 11 (7-52) U/L Alkaline Phosphatase 47 (34-104) U/L Total Creatine Kinase 21 L (26-192) U/L Troponin I High Sens 6.5 (0-14) pg/ml Total Protein 6.3 (6.0-8.3) gm/dl Albumin 4.0 (3.4-5.0) gm/dl Globulin 2.3 L (2.5-4.0) gm/dl Albumin/Globulin Ratio 1.7 (0.9-2) Lipase 16 (11-82) U/L TSH 0.426 (0.300-4.500) uIu/ml Urine Color Dark Yellow Urine Appearance Clear (Clear) Urine pH 7.5 (4.5-7.5) Ur Specific [place] 1.015 (1.000-1.030) Urine Protein Negative (Negative) Urine Glucose (UA) Negative (Negative) Urine Ketones Trace H (Negative) Urine Blood Negative (Negative) Urine Nitrite Negative (Negative) Urine Bilirubin Negative (Negative) Urine Urobilinogen Negative (Negative) Ur Leukocyte Esterase Negative (Negative) Adenovirus (PCR) Not Detected (NotDetected) B. pertussis DNA (PCR) Not Detected (NotDetected) B.parapertussis DNA PCR Not Detected (NotDetected) C. pneumoniae DNA (PCR) Not Detected (NotDetected) Coronavirus OC43 (PCR) Not Detected (NotDetected) Coronavirus HKU1 (PCR) Not Detected (NotDetected) Coronavirus 229E (PCR) Not Detected (NotDetected) SARS-CoV-2 (PCR) Not Detected (NotDetected) Coronavirus NL63 (PCR) Not Detected (NotDetected) Human Metapneumovir PCR Not Detected (NotDetected) Influenza Type A (PCR) Not Detected (NotDetected) Influenza Type B (PCR) Not Detected (NotDetected) M. pneumoniae (PCR) Not Detected (NotDetected) Parainfluenza 1 (PCR) Not Detected (NotDetected) Parainfluenza 2 (PCR) Not Detected (NotDetected) Parainfluenza 3 (PCR) Not Detected (NotDetected) Parainfluenza 4 (PCR) Not Detected (NotDetected) RSV (PCR) Not Detected (NotDetected) Entero/Rhino (PCR) Not Detected (NotDetected) Imaging Data Attestation: I personally reviewed and interpreted this imaging study as follows: Radiologist's Impression: Chest X-Ray 08/03/24 22:37 XR chest 1V portable HISTORY: Chest pain. COMPARISON: Chest 07/09/2024. FINDINGS: Slightly rotated study. No pneumothorax. No pleural effusions. The heart remains mildly enlarged. Mitral and is calcifications are again noted. No new focal lung consolidations to suggest a pneumonia. No evidence for pulmonary edema. Degenerative changes within the shoulders. IMPRESSION: No significant change compared to the prior study. No acute process. ACT 112: Negative or not required by law. Electronically signed by: Charlie Atkinson M.D. 08/04/2024 7:50 AM MDM Narrative Prior records/ancillary studies reviewed. Triage Nursing notes reviewed. Additional history obtained from family. The patient's history was concerning for syncope. Differential diagnosis: Etiologies such as vasovagal event, infection, hypoglycemia, electrolyte abnormalities, cardiac sources, intracerebral event, toxicologic, neurologic, as well as others were entertained. Physical examination: As above ER treatment provided: IV hydration with normal saline Magnesium was replaced On reassessment the patient felt better. An order was placed for continuous cardiac monitoring. The monitor shows a rate of 60-100 with a sinus rhythm per my interpretation. Diagnostics interpretation by me: ECG: ordered for syncope ECG: Normal sinus, normal intervals, no acute ST-T wave changes. Impression normal sinus rhythm independently interpreted by myself The labs Independently Interpreted by myself revealed negative troponin. Negative urine Imaging studies: Chest x-ray with no acute consolidation, pneumothorax or free air per my independent interpretation CTs were reviewed and read by radiology as above HEART SCORE: Hx: high/mod/low suspicion: 0 ECG: ST depression/nonspecific changes/normal: 0 Age: Greater than 65/45-64/less than 45: 2 Risk factors: (Hypertension, hyperlipidemia, diabetes, coronary disease, tobacco use, cocaine use): 2 Troponin: Greater than 2 times normal limits/1-2 times normal limits/normal: 0 Total: 4 Consultation: A consultation was placed with the hospitalist. The case was discussed and diagnostics were reviewed. The patient was evaluated in the ER for further treatment. This appears to be consistent with syncope with chest pain, low magnesium and nausea and vomiting. Imaging was negative. Moderate heart score. Nonischemic EKG. Negative troponin. Medicine was consulted and the case is discussed. Patient be mated to the medical service for further evaluation and workup for syncope and chest pain. By the evaluation outlined above emergent etiologies such as infection, hypoglycemia, intracerebral event, toxicologic as well as others were deemed relatively unlikely. The pt informed about the findings as listed above. All questions were answered and pleased with the treatment. The chart was completed utilizing wiMAN voice recognition software. Grammatical errors, random word insertions, pronoun errors, and incomplete sentences are an occassional consequence of this system due to software limitations, ambient noise, and hardware issues. Any formal questions or concerns about the content, text, or information contained within the body of this dictation should be directly addressed to the physician financial legal assistant for clarification. Attending Attestation: I Cb Fernandez MD I have reviewed the advanced practitioner's documentation and agree with the plan of care. I accept the responsibility for the associated risk of managing the patient. I performed a substantive portion of the visit including involvement in all aspects of medical decision making. Imaging and labs reassuring but with her age and the syncope, further observation recommended. Impression & Plan Syncope, Chest pain, Vomiting, Hypomagnesemia Discharge Plan Visit Data Chief Complaint: Syncope Stated Complaint: Syncope, Vomiting, Chest Pain, Headache ED Provider: Cb Fernandez ED Midlevel Provider: Bettye Ryan Discharge Problem: Syncope, Chest pain, Vomiting, Hypomagnesemia Patient Disposition: Admitted As Inpatient Condition: Fair Discharge Instructions Interventions: ED Discharge Assessment Last Done: 08/04/24 05:42 Discharge Problem: Syncope Qualifiers: Syncope type: unspecified Qualified Code(s): R55 - Syncope and collapse
[2024-08-03 22:53] LABS: iSTAT Creatinine 0.6 mg/dl (0.6-1.3); iSTAT Hemoglobin 12.9 g/dl (12.0-16.0); iSTAT Ionized Calcium 1.19 mmol/l (1.12-1.32); iSTAT Potassium 3.7 mmol/L (3.3-5.0)
[2024-08-03 22:56] LABS: Basophils # (auto) 0.04 K/uL (0.00-0.20); Basophils % (auto) 0.5 %; Eosinophils % (auto) 1.2 %; Hematocrit (blood only) 36.6 % (37.0-47.0); Hemoglobin 12.4 g/dl (12.0-16.0); Immature Granulocytes # (auto) 0.01 K/uL (0.01-0.20); Immature Granulocytes % (auto) 0.1 %; Lymphocytes # (auto) 2.17 K/uL (1.20-3.40); Mean Corpuscular Hemoglobin 30.8 pg (25.0-34.0); Mean Corpuscular Hgb Conc 33.9 g/dL (32.0-36.0); Mean Platelet Volume 12.1 fL (9.4-12.4); Monocytes # (auto) 0.49 K/uL (0.11-0.59); Monocytes % (auto) 5.6 %; Neutrophils # (auto) 5.87 K/uL (1.40-6.50); Neutrophils % (auto) 67.6 %; Platelet Count 266 K/uL (130-400); RDW Coefficient of Variation 13.9 % (11.5-14.5); RDW Standard Deviation 47.2 fL (36.4-46.3); Red Blood Count 4.02 M/uL (4.20-5.40); White Blood Count 8.68 K/ul (4.8-10.8)
[2024-08-03] MEDS: SODIUM CHLORIDE 0.9% 500 ML IV SCH (22:56)
[2024-08-03] MEDS: FAMOTIDINE 20MG IV PUSH 20 MG/5 ML SYR IV STA (22:56)
[2024-08-03] MEDS: ONDANSETRON INJ 2 MG/ML 2 ML VIAL IV STA (22:56)
[2024-08-03 23:08] LABS: Appearance Urine Clear (Clear); Bilirubin Urine Negative (Negative); Blood Urine Negative (Negative); Color Urine Dark Yellow; Glucose Urine UA Negative (Negative); Ketones Urine Trace (Negative); Leukocyte Esterase Urine Negative (Negative); Nitrite Urine Negative (Negative); Protein Urine Negative (Negative); Specific Gravity Urine 1.015 (1.000-1.030); Urobilinogen Urine Negative (Negative); pH Urine 7.5 (4.5-7.5)
[2024-08-03 23:15] LABS: Albumin Globulin Ratio 1.7 (0.9-2); BUN Creatinine Ratio 28.8 (10-20); Bilirubin,Total 0.3 mg/dl (0.2-1.0); Calcium 9.5 mg/dl (8.6-10.3); Creatinine Clr Calc Pharmacy 54.4 ml/min; Est GFR (African American) 93.4 ml/min; Est GFR (Non-African American) 80.6 ml/min; Globulin 2.3 gm/dl (2.5-4.0); Magnesium 1.3 mg/dl (1.7-2.4); Potassium 3.8 mmol/L (3.5-5.1); Total Protein 6.3 gm/dl (6.0-8.3)
[2024-08-03 23:22] LABS: Troponin I High Sensitivity 6.5 pg/ml (0-14)
[2024-08-03 23:31] LABS: Thyroid Stimulating Hormone 0.426 uIu/ml (0.300-4.500)
[2024-08-03 23:50] LABS: Adenovirus PCR Not Detected (NotDetected); Bordetella parapertussis PCR Not Detected (NotDetected); Bordetella pertussis PCR Not Detected (NotDetected); Chlamydia pneumoniae PCR Not Detected (NotDetected); Coronavirus 229E PCR Not Detected (NotDetected); Coronavirus CoV-2 (COVID19)PCR Not Detected (NotDetected); Coronavirus HKU1 PCR Not Detected (NotDetected); Coronavirus NL63 PCR Not Detected (NotDetected); Coronavirus OC43PCR Not Detected (NotDetected); Human Metapneumovirus PCR Not Detected (NotDetected); Influenza A PCR Not Detected (NotDetected); Influenza B PCR Not Detected (NotDetected); Mycoplasma pneumoniae PCR Not Detected (NotDetected); Parainfluenza Virus 1 PCR Not Detected (NotDetected); Parainfluenza Virus 2 PCR Not Detected (NotDetected); Parainfluenza Virus 3 PCR Not Detected (NotDetected); Parainfluenza Virus 4 PCR Not Detected (NotDetected); Respiratory Syncytial VirusPCR Not Detected (NotDetected); Rhinovirus/Enterovirus PCR Not Detected (NotDetected)
[2024-08-04] MEDS: OPTIRAY 320 125ml IV ONE (00:03)
[2024-08-04] MEDS: MAGNESIUM SULFATE / D5W 1 GM/100 ML BAG IV SCH (00:10)
--- OUTSIDE RECORDS SUMMARY | 2024-08-04 00:13 | External Medical Summary | Summary of Care ---
Author Name Unknown Organization [facility] Address [address] [place] [address] Phone [phone] Care Team Providers Care Package Wrapper Name Role Phone Unavailable Primary Care Provider Unavailabl e Reason for Visit * Reason Comments eRx-Medication Refill Encounter Details Date Type Department Care Team (Late st Contact Info) Description 07/16/2024 Refill Cardiology, [facility] [address] [place] [id number] Curtis Monroy, [address] [place] [address] Paroxysmal atrial fibrillation (HCC) Allergies Active Allergy Reactions Criticality Noted Date Comments Brassica Oleracea 05/17/2020 Other Reaction(s): Gas Crab (Diagnostic) 04/05/2018 Crab Extract 05/17/2020 Other Reaction(s): diarrhea Food (See Comments) 07/24/2015 Broccoli, beans, cauliflower - cause gas Grapefruit, oranges - cause bronchitis - positive skin test Grapefruit Extract 05/17/2020 Other Reaction(s): BRONCHITIS [place] Oil 05/17/2020 Other Reaction(s): BRONCHITIS Paroxetine Hydrochloride 04/03/2009 Penicillins 04/03/2009 Blisters on hands Peanut-Containing Drug Products Abdominal pain Medium 07/24/2015 Gas, bloating Phaseolus 01/10/2024 Other Reaction(s): Bloating, Gas also with green beans documented as of this encounter (statuses as of 07/18/2024) Medications Medication Sig Dispensed Refills Start Date End Date Status MEDICAL INSTRUCTIONS Use as directed. CPAP during night as ordered Active triamcinolone acetonide (ARISTOCORT) 0.1 % creamIndications:In trinsic eczema Apply topically to affected area 2 times a day. To affected area. 15 g 5 0 Active Albuterol Sulfate HFA 108 (90 Base) MCG/ACT Inhalation Aerosol Solution Inhale 2 Puffs by mouth every 4 hours as needed for Cough, Shortness of Breath or Wheezing (and with respiratory infections). 18 g 4 1 Active Azelastine HCl 0.1 % Nasal Solution Administer 2 Sprays into each nostril every evening. 90 mL 3 1 Active Lumigan 0.01 % Ophthalmic Solution Instill 1 Drop into both eyes at bedtime. 2 Active Ketoconazole 2 % External Cream APPLY SPARINGLY TO AFFECTED AREA TWICE A DAY 2 Active Fluticasone Propionate 50 MCG/ACT Nasal Suspension (Flonase) Administer 2 Sprays into each nostril every morning. 48 mL 3 3 Active OneTouch Delica Lancets 30GIndications:DM type 2, 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% ([facility]) TEST BLOOD SUGAR ONCE DAILY [...] BEFORE BEDTIME. 180 Each 3 4 Active guaiFENesin ER 600 MG Oral Tablet Extended Release 12 Hour (Mucinex)Indication s:Bronchitis, complicated Take 1 Tablet by mouth 2 times a day as needed for Congestion. Take with plenty of water. Do not cut, crush or chew 40 Tablet 2 4 Active Centrum Silver Oral Tablet Take 1 Tablet by mouth in the morning. 90 Tablet 3 4 Active Vitamin D-3 25 MCG (1000 UT) Oral Capsule Take 1 Capsule by mouth in the morning. 90 Capsule 3 4 Active CoQ-10 100 MG Oral Capsule Take 1 Capsule by mouth in the morning. 90 Capsule 4 Active oxyBUTYnin Chloride ER 10 MG Oral Tablet Extended Release 24 Hour (Ditropan XL) Take 1 Tablet by mouth in the morning. 90 Tablet 4 Active Sodium Chloride 1 GM Oral Tablet Take 1 Tablet by mouth in the morning and 1 Tablet before bedtime. 180 Tablet 4 Active Vitamin B-12 1000 MCG Oral Tablet (Cyanocobalamin) Take 1 Tablet by mouth in the morning. 90 Tablet 3 4 Active Vitamin C 500 MG Oral Tablet (Ascorbic Acid) Take 1 Tablet by mouth in the morning. 90 Tablet 4 Active Zinc 50 MG Oral Tablet Take 1 Tablet by mouth in the morning. 90 Tablet 3 4 Active Aspirin 81 MG Oral Tablet Delayed Release (Ecotrin Low Strength) Take 1 Tablet by mouth in the morning. 100 Tablet 4 Active Levothyroxine Sodium 100 MCG Oral Tablet (Levoxyl)Indication s:Acquired hypothyroidism TAKE 1 TABLET BY MOUTH DAILY AT LEAST 30 MINUTES PRIOR TO BREAKFAST OR OTHER MEDICATION 90 Tablet 4 Active Losartan Potassium 100 MG Oral Tablet (Cozaar)Indications :Benign hypertension with CKD (chronic kidney disease), stage II,Essential hypertension with goal blood pressure less than 140/90,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) Take 1 Tablet by mouth in the morning. 90 Tablet 4 Active Magnesium Oxide -Mg Supplement 400 (240 Mg) MG Oral Tablet (Mag-Ox) Take 1 Tablet by mouth in the morning. 90 Tablet 4 Active metFORMIN HCl 850 MG Oral Tablet (Glucophage)Indicat ions:Type 2 diabetes mellitus with hemoglobin A1c goal of less than 7.0% (HCC) TAKE 1 TABLET BY MOUTH TWICE A DAY WITH BREAKFAST AND DINNER 180 Tablet 4 Active Metoprolol Tartrate 25 MG Oral Tablet (Lopressor)Indicati ons:Essential hypertension with goal blood pressure less than 140/90,Atherosclero sis of [place] coronary artery of [place] heart without angina pectoris,Paroxysmal atrial fibrillation (HCC) Take 1 Tablet by mouth in the morning and 1 Tablet before bedtime. 180 Tablet 1 4 Active Montelukast Sodium 10 MG Oral Tablet (Singulair)Indicati ons:Other seasonal allergic rhinitis Take 1 Tablet by mouth at bedtime. 90 Tablet 1 4 Active Atorvastatin Calcium 20 MG Oral Tablet (Lipitor)Indication s:Atherosclerosis of [place] coronary artery of [place] heart without angina pectoris,Paroxysmal atrial fibrillation (HCC),Dyslipidemia, goal LDL below 100 take one pill by mouth at bedtime 90 Tablet 1 4 Active Potassium Chloride Krystal ER 20 MEQ Oral Tablet Extended Release (Klor-Con M20) Take 1 Tablet by mouth in the morning. 90 Tablet 1 4 Active Dexlansoprazole 60 MG Oral Capsule Delayed Release (Dexilant)Indicatio ns:Gastroesophageal reflux disease with esophagitis 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 Take 1 Capsule by mouth in the morning. 90 Capsule 1 4 Active Ramelteon 8 MG Oral Tablet (Rozerem)Indication s:Insomnia, unspecified type Take 1 Tablet by mouth at bedtime. 90 Tablet 1 4 Active NIFEdipine ER Osmotic Release 90 MG Oral Tablet Extended Release 24 Hour (Procardia XL)Indications:Segundo gn hypertension with CKD (chronic kidney disease), stage II,Primary hypertension TAKE 1 TABLET BY MOUTH EVERY DAY IN THE MORNING 90 Tablet 1 4 Active Nystatin 642319 UNIT/GM External CreamIndications:De rmatitis Apply topically to affected area 2 times a day. To affacted area for two weeks. 60 g 2 4 Active Eliquis 5 MG Oral Tablet (Apixaban)Indicatio ns:Paroxysmal atrial fibrillation (HCC) TAKE 1 TABLET BY MOUTH TWICE A DAY 180 Tablet 3 4 Active Apixaban 5 MG Oral Tablet (Eliquis)Indication s:Paroxysmal atrial fibrillation (HCC) Take 1 Tablet by mouth in the morning and 1 Tablet before bedtime. 60 Tablet 5 4 07/18/20 24 Discontinued documented as of this encounter (statuses as of 07/18/2024) Active Problems Problem Noted Date Diagnosed Date [...] ase with esophagitis 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 Atherosclerosis of [place] co ronary artery of [place] heart without angina pectoris Adjustment disorder with depressed mood documented as of this encounter (statuses as of 07/18/2024) Resolved Problems Problem Noted Date Diagnosed Date [...] 09/23/2012 Genetic Sleep Disorder [facility] Other*[id number] 09/12/2012 06/25/2016 Obesity, Class II, BMI 35-39 [...] as of this encounter (statuses as of 07/18/2024) Immunizations Name Administration Dates Next Due COVID-19 mRNA, LNP-s, No Pre serve, 2-Dose Series (Moderna) 03/15/2021,02/16/2021 COVID-19, MRNA-LNP, 23-24, P F, 30 MCG/0.3 mL, 12 YRS AND ABOVE, IM ([facility]) 11/17/2023 COVID-19, mRNA, LNP-s, PF, B ooster, [...] 09/12/2015,08/14/2014,11/14/2013,10/06,09/01/2011,08/28/2010 TDAP (age 10 and older)(Boostrix) 09/19/2017 TDAP, Age 7 and older, IM (Adacel) 07/29/2012 documented as of this encounter Social [...] in the Last Year Never true 07/24/2019 Utilities Answer Date Recorded Do you have trouble paying y our heating, water, or electric bill? (Adult - for ages 18 years and over) Not on file 05/16/2024 Is your family able to pay t he heat, water, or electric bill? (Household - for ages 0-17 years) Not on file 05/16/2024 Does your family have access to good internet? (Household - for ages 0-17 years) Not on file 05/16/2024 Social Connections Answer Date Recorded How often do you feel lonely or isolated from those around you? (Adult - for ages 18 years and over) Not on file 05/16/2024 Sex and Gender Information Value Date Recorded Sex Assigned at Not on file Gender Identity Not on file Sexual Orientation Not on file Job Start Date Occupation Industry Not on file Not on file Not on file documented as of this encounter Miscellaneous Notes * Telephone Encounter - Curtis Monroy DO - 07/18/2024 2:48 PM EDTSigned Prescriptions: Disp Refills Eliquis 5 MG Oral Tablet (Apixaban) 180 Ta*3 Sig: TAKE 1 TABLET BY MOUTH TWICE A DAY Authorizing Provider: CURTIS MONROY * Telephone Encounter - Rebecca Mcdowell CMA - 07/17/2024 11:48 AM EDTPending Prescriptions: Disp Refills Eliquis 5 MG Oral Tablet (Apixaban) 180 Ta*3 Sig: TAKE 1 TABLET BY MOUTH TWICE A DAY * Telephone Encounter - Rebecca Mcdowell CMA - 07/17/2024 11:46 AM EDT Did you pend patient's preferred pharmacy and medication before forwarding?yes Pharmacy: [id number] [id number] [facility] Pending Prescriptions: Disp Refills Eliquis 5 MG Oral Tablet (Apixaban) [Phar*180 Ta*3 Sig: TAKE 1 TABLET BY MOUTH TWICE A DAY Last Visit: 01/10/2024 (in office), Visit date not found (telemedicine) Next Visit: 07/20/2024 If no future appointments scheduled, and last appointment is greater than a year ago, please schedule patient for a follow-up appointment Last date the medication was ordered: 01/31/24 Is this request for a controlled substance?No [...] AM TSH 0.51 04/29/2020 10:16 AM LDLCALC 45 02/23/2024 02:34 PM LDLCALC UNINTERPRETABLE RESULT 01/23/2019 02:34 PM LDLDIRECT 67 11/13/2021 09:12 AM LDLDIRECT 67 09/16/2020 02:12 PM ALT 28 11/10/2023 09:38 AM ALT 20 04/27/2019 03:30 PM HGBA1C 6.3 (H) 11/17/2023 03:02 PM HGBA1C 6.3 (H) 06/10/2020 03:05 PM documented in this encounter Plan of Treatment Upcoming Encounters Date Type Department Care Team (Late st Contact Info) Description 07/20/2024 11:00 AM EDT Office Visit Cardiology, [facility] [address] [facility] [place] [address] Gabrielle Bell CRNP [address] [place] [address] 09/11/2024 2:20 PM EDT Office Visit Family Medicine [address] [place] [phone] Rolanda Villalpando PA-C [address] [place] [address] [place] [address] 12/11/2024 2:30 PM EST Office Visit Cardiology, [facility] [address] [place] [address] Curtis Monroy, [address] [place] [address] Health Maintenance Due Date Last Done Comments Zoster Vaccines (1 of 2) 1989 Depression Screening 04/29/2021 04/29/2020 COVID-19 Vaccine (2022- season) 2024 11/17/2023, 12/02/2021, 03/15/2021, Additional history exists Diabetic Foot Exam 04/28/2024 04/28/2023, 0 03/12/2022, 04/01/2021, Additional history exists HbA1c 05/18/2024 11/17/2023, 03/31, 11/17/2022, Additional history exists Influenza Vaccine (FLU shot) (#1) 2024 10/29/2023, 09/17/2022, 10/17/2021, Additional history exists Diabetic Eye Exam 09/03/2024 09/03/2023, , 09/03/2023, Additional history exists Albumin/Creatinine Ratio 11/17/2024 023, 11/17/2022, 11/13/2021, Additional history exists TSH 12/14/2024 12/14/2023, 03/31, 05/14/2022, Additional history exists DXA Scan 05/31/2026 05/31/2019, 07/15/2012 DTaP,Tdap,and Td Vaccines (4 - Td or Tdap) 09/19/2027 09/19/2017, 03/22/2017, 07/29/2012 Pneumococcal Vaccine: 65+ Years Completed 04/23/2015, 11/29/2005 HPV (Gardasil) Vaccine Aged Out No lo nger eligible based on patient's age to complete this topic Hepatitis B Vaccine Aged Out No longe r eligible based on patient's age to complete this topic MENINGOCOCCAL (MENACTRA/MENVEO) Aged Out No longer eligible based on patient's age to complete this topic documented as of this encounter Medical Devices Not on filedocumented as of this encounter Visit Diagnoses Diagnosis Paroxysmal atrial fibrillation (HCC) Atrial fibrillation documented in this encounter
--- OUTSIDE RECORDS SUMMARY | 2024-08-04 00:14 | External Medical Summary | Summary of Care ---
Author Name Unknown Organization [facility] Address [address] [facility] [address] Phone [phone] Care Team Providers Care Paper Sorter Name Role Phone Unavailable Primary Care Provider Unavailabl e Reason for Referral * Evaluate & Treat - Unlimited Visits (Within 10 days (routine)) - Authorized Specialty Diagnoses / Procedures Referred By Contkimberly osborne Referred To Contact HOME CARE / Home Care Diagnoses Ataxia, post-stroke Rolanda Villalpando PA-C [address] [place] [address] [place] [address] Referral ID Status Reason Start Date Expiration Date Visits Requested Visits Authorized [id number] Authorized Specialty Services Required 07/12/2024 999 999 Question Answer Referral Priority Within 10 days (routine) Where should this appointment be scheduled? [facility] Documentation of Izol-em-Mqyf Encounter Addendum Patient Name: Yudelka Palacios I certify that this patient is under my care and that I, or a nurse practitioner or physician's pet care assistant working with me, had a [id number] encounter that meets the physician [id number] encounter requirements with this patient on: 07/12/24 The encounter with the patient was in whole, or in part, for the following medical condition, which is the primary reason for home health care (List medical condition): ADL dysfunction I certify that, based on my findings, the following services are medically necessary home health services: Physical Therapy To provide the following care/treatments: (All hospitalists not following the patient after discharge should complete this section): PT/OT Primary Care Physician to follow home care plan of care after discharge: Dr. Smith My clinical findings support the need for the above services because: PABLO DELAROSA Further, I certify that my clinical findings support that this patient is homebound (i.e. Absences from home require considerable and taxing effort and are for medical reasons or confucianist services or infrequently or of short duration when for other reason) because: PABLO DELAROSA Physician Signature: Date of Signature: Physician Printed Name: Rolanda Villalpando PA-C Reason for Visit * Reason Comments Re-Check Emergency Department Follow-Up Encounter Details Date Type Department Care Team (Late st Contact Info) Description 07/12/2024 1:40 PM EDT Office Visit Family Medicine [address] [phone] Rolanda Villalpando PA-C [address] [place] [address] [place] [address] Ataxia, post-stroke*; Dysuria; Dermatitis Allergies Active Allergy Reactions Criticality Noted Date Comments Brassica Oleracea 05/17/2020 Other Reaction(s): Gas Crab (Diagnostic) 04/05/2018 Crab Extract 05/17/2020 Other Reaction(s): diarrhea Food (See Comments) 07/24/2015 Broccoli, beans, cauliflower - cause gas Grapefruit, oranges - cause bronchitis - positive skin test Grapefruit Extract 05/17/2020 Other Reaction(s): BRONCHITIS [place] Oil 05/17/2020 Other Reaction(s): BRONCHITIS Paroxetine Hydrochloride 04/03/2009 Penicillins 04/03/2009 Blisters on hands Peanut-Containing Drug Products Abdominal pain Medium 07/24/2015 Gas, bloating Phaseolus 01/10/2024 Other Reaction(s): Bloating, Gas also with green beans documented as of this encounter (statuses as of 07/12/2024) Medications Medication Sig Dispensed Refills Start Date End Date Status MEDICAL INSTRUCTIONS Use as directed. CPAP during night as ordered Active triamcinolone acetonide (ARISTOCORT) 0.1 % creamIndications:Int rinsic eczema Apply topically to affected area 2 times a day. To affected area. 15 g 5 01/11/2020 Active Albuterol Sulfate HFA 108 (90 Base) MCG/ACT Inhalation Aerosol Solution Inhale 2 Puffs by mouth every 4 hours as needed for Cough, Shortness of Breath or Wheezing (and with respiratory infections). 18 g 4 04/04/2021 Active Azelastine HCl 0.1 % Nasal Solution Administer 2 Sprays into each nostril every evening. 90 mL 3 04/04/2021 Active Lumigan 0.01 % Ophthalmic Solution Instill 1 Drop into both eyes at bedtime. 03/27/2022 Active Ketoconazole 2 % External Cream APPLY SPARINGLY TO AFFECTED AREA TWICE A DAY 05/18/2022 Active Fluticasone Propionate 50 MCG/ACT Nasal Suspension (Flonase) Administer 2 Sprays into each nostril every morning. 48 mL 3 01/20/2023 Active OneTouch Delica Lancets 30GIndications:DM type 2, 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% ([facility]) TEST BLOOD SUGAR ONCE DAILY DIRECTED DX E11.9 100 Each 3 01/03/2024 Active OneTouch Verio In Vitro Strip (Glucose Blood)Indications:DM type 2, 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% ([facility]) Test blood sugar once daily as directed; dx E11.9 100 Strip 3 01/03/2024 Active Wixela Inhub 250-50 MCG/ACT Inhalation Aerosol Powder Breath Activated (Fluticasone-Salmete rol) INHALE 1 PUFF BY MOUTH IN THE MORNING AND 1 PUFF BEFORE BEDTIME. 180 Each 3 01/17/2024 Active Apixaban 5 MG Oral Tablet (Eliquis)Indications :Paroxysmal atrial fibrillation (HCC) Take 1 Tablet by mouth in the morning and 1 Tablet before bedtime. 60 Tablet 5 01/31/2024 Active guaiFENesin ER 600 MG Oral Tablet Extended Release 12 Hour (Mucinex)Indications :Bronchitis, complicated Take 1 Tablet by mouth 2 times a day as needed for Congestion. Take with plenty of water. Do not cut, crush or chew 40 Tablet 2 04/15/2024 Active Centrum Silver Oral Tablet Take 1 Tablet by mouth in the morning. 90 Tablet 3 04/21/2024 Active Vitamin D-3 25 MCG (1000 UT) Oral Capsule Take 1 Capsule by mouth in the morning. 90 Capsule 04/21/2024 Active CoQ-10 100 MG Oral Capsule Take 1 Capsule by mouth in the morning. 90 Capsule 3 04/21/2024 Active oxyBUTYnin Chloride ER 10 MG Oral Tablet Extended Release 24 Hour (Ditropan XL) Take 1 Tablet by mouth in the morning. 90 Tablet 04/21/2024 Active Sodium Chloride 1 GM Oral Tablet Take 1 Tablet by mouth in the morning and 1 Tablet before bedtime. 180 Tablet 04/21/2024 Active Vitamin B-12 1000 MCG Oral Tablet (Cyanocobalamin) Take 1 Tablet by mouth in the morning. 90 Tablet 3 04/21/2024 Active Vitamin C 500 MG Oral Tablet (Ascorbic Acid) Take 1 Tablet by mouth in the morning. 90 Tablet 04/21/2024 Active Zinc 50 MG Oral Tablet Take 1 Tablet by mouth in the morning. 90 Tablet 04/21/2024 Active Aspirin 81 MG Oral Tablet Delayed Release (Ecotrin Low Strength) Take 1 Tablet by mouth in the morning. 100 Tablet 3 04/21/2024 Active Levothyroxine Sodium 100 MCG Oral Tablet (Levoxyl)Indications :Acquired hypothyroidism TAKE 1 TABLET BY MOUTH DAILY AT LEAST 30 MINUTES PRIOR TO BREAKFAST OR OTHER MEDICATION 90 Tablet 04/21/2024 Active Losartan Potassium 100 MG Oral Tablet (Cozaar)Indications: Benign hypertension with CKD (chronic kidney disease), stage II,Essential hypertension with goal blood pressure less than 140/90,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) Take 1 Tablet by mouth in the morning. 90 Tablet 04/21/2024 Active Magnesium Oxide -Mg Supplement 400 (240 Mg) MG Oral Tablet (Mag-Ox) Take 1 Tablet by mouth in the morning. 90 Tablet 04/21/2024 Active metFORMIN HCl 850 MG Oral Tablet (Glucophage)Indicati ons:Type 2 diabetes mellitus with hemoglobin A1c goal of less than 7.0% (HCC) TAKE 1 TABLET BY MOUTH TWICE A DAY WITH BREAKFAST AND DINNER 180 Tablet 1 04/21/2024 Active Metoprolol Tartrate 25 MG Oral Tablet (Lopressor)Indicatio ns:Essential hypertension with goal blood pressure less than 140/90,Atheroscleros is of platinum coronary artery of platinum heart without angina pectoris,Paroxysmal atrial fibrillation (HCC) Take 1 Tablet by mouth in the morning and 1 Tablet before bedtime. 180 Tablet 1 04/21/2024 Active Montelukast Sodium 10 MG Oral Tablet (Singulair)Indicatio ns:Other seasonal allergic rhinitis Take 1 Tablet by mouth at bedtime. 90 Tablet 1 04/21/2024 Active Atorvastatin Calcium 20 MG Oral Tablet (Lipitor)Indications :Atherosclerosis of platinum coronary artery of platinum heart without angina pectoris,Paroxysmal atrial fibrillation (HCC),Dyslipidemia, goal LDL below 100 take one pill by mouth at bedtime 90 Tablet 1 04/21/2024 Active Potassium Chloride Krystal ER 20 MEQ Oral Tablet Extended Release (Klor-Con M20) Take 1 Tablet by mouth in the morning. 90 Tablet 1 04/21/2024 Active Dexlansoprazole 60 MG Oral Capsule Delayed Release (Dexilant)Indication s:Gastroesophageal reflux disease with esophagitis 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 Take 1 Capsule by mouth in the morning. 90 Capsule 1 04/21/2024 Active Ramelteon 8 MG Oral Tablet (Rozerem)Indications :Insomnia, unspecified type Take 1 Tablet by mouth at bedtime. 90 Tablet 1 06/14/2024 Active NIFEdipine ER Osmotic Release 90 MG Oral Tablet Extended Release 24 Hour (Procardia XL)Indications:Benig n hypertension with CKD (chronic kidney disease), stage II,Primary hypertension TAKE 1 TABLET BY MOUTH EVERY DAY IN THE MORNING 90 Tablet 1 06/24/2024 Active Sulfamethoxazole-Tri methoprim 800-160 MG Oral Tablet (Bactrim DS)Indications:Dysur ia Take 1 Tablet by mouth in the morning and 1 Tablet before bedtime. Do all this for 5 days. Until gone. 10 Tablet 07/12/2024 4 Active Nystatin 611909 UNIT/GM External CreamIndications:Jeffry matitis Apply topically to affected area 2 times a day. To affacted area for two weeks. 60 g 2 07/12/2024 Active documented as of this encounter (statuses as of 07/12/2024) Active Problems Problem Noted Date Diagnosed Date [...] ase with esophagitis 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 Atherosclerosis of platinum co ronary artery of platinum heart without angina pectoris Adjustment disorder with depressed mood documented as of this encounter (statuses as of 07/12/2024) Resolved Problems Problem Noted Date Diagnosed Date [...] persistent 09/23/2012 09/23/2012 Genetic Sleep Disorder [facility] Other*[id number] 09/12/2012 06/25/2016 Obesity, Class II, BMI 35-39 [...] as of this encounter (statuses as of 07/12/2024) Immunizations Name Administration Dates Next Due COVID-19 [...] Sign Reading Time Taken Comments Blood Pressure 118/52 07/12/2024 1:45 PM EDT Pulse 67 07/12/2024 1:45 PM EDT Temperature 36.1 C (97 F) 07/12/2024 1:45 PM EDT Respiratory Rate - - Oxygen Saturation 93% 07/12/2024 1:45 PM EDT Inhaled Oxygen Concentration - - Weight 63 kg (139 lb) 07/12/2024 1:45 PM EDT Height 152.4 cm (5') 07/12/2024 1:45 PM EDT Body Mass Index 27.15 07/12/2024 1:45 PM EDT documented in this encounter Progress Notes * Rolanda Villalpando PA-C - 07/12/2024 1:50 PM EDT Nursing Notes: Staci Magana, ALBERTO 07/12/24 1350 Sign at exiting of workspace Return Thinks she has UTI? Has some incontinence "Rough areas" on skin. Patches? Can't see them, only fees them Fingers on left hand get stuck together & has to use right hand to separate them Left foot is dragging Had a stroke in November & "symptoms are returning" Feels as if she is "back sliding" Fell on Wednesday & went to the ER at [facility] Large bruising & swelling on left elbow. She "thinks" they scanned her head & ribs? Pt here today for return? She has 6 month FU with PCP - in 2 months. Last seen 4 months ago and wastold to return in 6 months. Pt states that she is here because she has urinary urgency/frequency for the past couple months. Pt has burning/pain with urination. Pt denies blood in urine, fever. Has had some chills. Pt denies nausea, vomiting. Pt also having some problems with walking, ever since stroke. Pt hasn't seen neuro for about 5 months. Pt had home health but they haven't been in, in months. Would like to have them back. Pt also has a rash in her groin. It is itchy. Review of patient's allergies indicates: Allergen Reactions Peanut-Containing Drug Products Abdominal pain Gas, bloating Brassica Oleracea Other Reaction(s): Gas Crab (Diagnostic) Crab Extract Other Reaction(s): diarrhea Food (See Comments) Broccoli, beans, cauliflower - cause gas Grapefruit, oranges - cause bronchitis - positive skin test Grapefruit Extract Other Reaction(s): BRONCHITIS [place] Oil Other Reaction(s): BRONCHITIS Paxil [Paroxetine Hydrochloride] Pcn [Penicillins] Blisters on hands Phaseolus Other Reaction(s): Bloating, Gas also with green beans Current Outpatient Medications Medication Sig Dispense Refill MEDICAL INSTRUCTIONS Use as directed. CPAP during night as ordered triamcinolone acetonide (ARISTOCORT) 0.1 % cream Apply topically to affected area 2 times a day. Toaffected area. 15 g 5 Albuterol Sulfate HFA 108 (90 Base) MCG/ACT Inhalation Aerosol Solution Inhale 2 Puffs by mouth every 4 hours as needed for Cough, Shortness of Breath or Wheezing (and with respiratory infections). 18 g 4 Azelastine HCl 0.1 % Nasal Solution Administer 2 Sprays into each nostril every evening. 90 mL 3 Lumigan 0.01 % Ophthalmic Solution Instill 1 Drop into both eyes at bedtime. Ketoconazole 2 % External Cream APPLY SPARINGLY TO AFFECTED AREA TWICE A DAY Fluticasone Propionate 50 MCG/ACT Nasal Suspension (Flonase) Administer 2 Sprays into each nostril every morning. 48 mL 3 OneTouch Delica Lancets 30G TEST BLOOD SUGAR ONCE DAILY DIRECTED DX E11.9 100 Each 3 OneTouch Verio In Vitro Strip (Glucose Blood) Test blood sugar once daily as directed; dx E11.9 100Strip 3 Wixela Inhub 250-50 MCG/ACT Inhalation Aerosol Powder Breath Activated (Fluticasone-Salmeterol) INHALE 1 PUFF BY MOUTH IN THE MORNING AND 1 PUFF BEFORE BEDTIME. 180 Each 3 Apixaban 5 MG Oral Tablet (Eliquis) Take 1 Tablet by mouth in the morning and 1 Tablet before bedtime. 60 Tablet 5 guaiFENesin ER 600 MG Oral Tablet Extended Release 12 Hour (Mucinex) Take 1 Tablet by mouth 2 timesa day as needed for Congestion. Take with plenty of water. Do not cut, crush or chew 40 Tablet 2 Centrum Silver Oral Tablet Take 1 Tablet by mouth in the morning. 90 Tablet 3 Vitamin D-3 25 MCG (1000 UT) Oral Capsule Take 1 Capsule by mouth in the morning. 90 Capsule 3 CoQ-10 100 MG Oral Capsule Take 1 Capsule by mouth in the morning. 90 Capsule 3 oxyBUTYnin Chloride ER 10 MG Oral Tablet Extended Release 24 Hour (Ditropan XL) Take 1 Tablet by mouth in the morning. 90 Tablet 1 Sodium Chloride 1 GM Oral Tablet Take 1 Tablet by mouth in the morning and 1 Tablet before bedtime.180 Tablet 1 Vitamin B-12 1000 MCG Oral Tablet (Cyanocobalamin) Take 1 Tablet by mouth in the morning. 90 Tablet3 Vitamin C 500 MG Oral Tablet (Ascorbic Acid) Take 1 Tablet by mouth in the morning. 90 Tablet 3 Zinc 50 MG Oral Tablet Take 1 Tablet by mouth in the morning. 90 Tablet 3 Aspirin 81 MG Oral Tablet Delayed Release (Ecotrin Low Strength) Take 1 Tablet by mouth in the morning. 100 Tablet 3 Levothyroxine Sodium 100 MCG Oral Tablet (Levoxyl) TAKE 1 TABLET BY MOUTH DAILY AT LEAST 30 MINUTESPRIOR TO BREAKFAST OR OTHER MEDICATION 90 Tablet 1 Losartan Potassium 100 MG Oral Tablet (Cozaar) Take 1 Tablet by mouth in the morning. 90 Tablet 1 Magnesium Oxide -Mg Supplement 400 (240 Mg) MG Oral Tablet (Mag-Ox) Take 1 Tablet by mouth in the morning. 90 Tablet 1 metFORMIN HCl 850 MG Oral Tablet (Glucophage) TAKE 1 TABLET BY MOUTH TWICE A DAY WITH BREAKFAST ANDDINNER 180 Tablet 1 Metoprolol Tartrate 25 MG Oral Tablet (Lopressor) Take 1 Tablet by mouth in the morning and 1 Tablet before bedtime. 180 Tablet 1 Montelukast Sodium 10 MG Oral Tablet (Singulair) Take 1 Tablet by mouth at bedtime. 90 Tablet 1 Atorvastatin Calcium 20 MG Oral Tablet (Lipitor) take one pill by mouth at bedtime 90 Tablet 1 Potassium Chloride Krystal ER 20 MEQ Oral Tablet Extended Release (Klor-Con M20) Take 1 Tablet by mouth in the morning. 90 Tablet 1 Dexlansoprazole 60 MG Oral Capsule Delayed Release (Dexilant) Take 1 Capsule by mouth in the morning. 90 Capsule 1 Ramelteon 8 MG Oral Tablet (Rozerem) Take 1 Tablet by mouth at bedtime. 90 Tablet 1 NIFEdipine ER Osmotic Release 90 MG Oral Tablet Extended Release 24 Hour (Procardia XL) TAKE 1 TABLET BY MOUTH EVERY DAY IN THE MORNING 90 Tablet 1 No current facility-administered medications for this visit. 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 Coronary atherosclerosis of platinum coronary artery DM type 2, goal HbA1c < 7% ([facility]) 05/07/2018 hgba1c 7.3 Dyslipidemia, goal LDL below [...] or female climacteric states Vasovagal syncope 10/24/2023 [facility] Social History Socioeconomic History Marital status: Spouse [...] History Narrative 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, 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[employer]: [employer] Social Determinants of Health Financial Resource Strain: Low Risk (03/30/2023) [facility] Overall Financial Resource Strain (CARDIA) Difficulty of Paying Living Expenses: Not hard at all Food Insecurity: No Food Insecurity (07/24/2019) Hunger Vital Sign Worried About Running Out of Food in the Last Year: Never true Ran Out of Food in the Last Year: Never true Transportation Needs: No Transportation Needs (03/30/2023) [facility] PRAPARE - Transportation Lack of Transportation (Medical): No Lack of Transportation (Non-Medical): No Social Connections: Unknown (05/16/2024) Social Connections How often do you feel lonely or isolated from those around you? (Adult - for ages 18 years and over): Not on file Housing Stability: Not on file O:Blood pressure 118/52, pulse 67, temperature 36.1 C (97 F), temperature source Tympanic, height 1.524 m (5'), weight 63 kg (139 lb), SpO2 93%, not currently . GENERAL: alert, healthy, and no distress NECK: supple, no adenopathy, no bruits, thyroid normal size, non-tender, without nodularity HEART: regular rate & rhythm, no murmur, and no gallops LUNGS: chest symmetric with normal AP diameter, no chest deformities noted, no chest wall tenderness, lungs clear to auscultation EYES: PERRLA ABDOMEN: abdomen soft, non-tender, and no CVA tenderness A:Ataxia, post-stroke (Primary) - HOME HEALTH REFERRAL OP Dysuria - URINALYSIS, POINT OF CARE (ENTER/EDIT) - Sulfamethoxazole-Trimethoprim 800-160 MG Oral Tablet (Bactrim DS); Take 1 Tablet by mouth in the morning and 1 Tablet before bedtime. Do all this for 5 days. Until gone. - CULTURE, URINE, QUANTITATIVE Dermatitis - Nystatin 448152 UNIT/GM External Cream; Apply topically to affected area 2 times a day. To affacted area for two weeks. Will send urine for culture. Start bactrim. Will refer for home health for PT/OT. Any questions/problems, please call. Needs to schedule with neuro. If anything changes, worsens, develops new sx, please call JUAN. Follow Up: Return if symptoms worsen or fail to improve. Rolanda Villalpando PA-C documented in this encounter Nursing Notes * Staci Magana LPN - 07/12/2024 1:45 PM EDT Return Thinks she has UTI? Has some incontinence "Rough areas" on skin. Patches? Can't see them, only fees them Fingers on left hand get stuck together & has to use right hand to separate them Left foot is dragging Had a stroke in November & "symptoms are returning" Feels as if she is "back sliding" Fell on Wednesday & went to the ER at [facility] Large bruising & swelling on left elbow. She "thinks" they scanned her head & ribs? documented in this encounter Plan of Treatment Upcoming Encounters Date Type Department Care Team (Late st Contact Info) Description 07/20/2024 11:00 AM EDT Office Visit Cardiology, [facility] [address] [place] [id number] Gabrielle Bell CRNP [address] [place] [id number] 09/11/2024 2:20 PM EDT Office Visit Family Medicine [address] [place] [phone] Rolanda Villalpando PA-C [address] [place] [address] [place] [address] 12/11/2024 2:30 PM EST Office Visit Cardiology, [facility] [address] [place] [address] Chace Peacock DO [address] [place] [address] Scheduled Orders Name Type Priority Associated Diagnoses Orde r Schedule URINALYSIS, POINT OF CARE (ENTER/EDIT) Point of Care Testing Routine Dysuria Ordered: 07/12/2024 CULTURE, URINE, QUANTITATIVE Lab Routine Dysuria Ordered: 07/12/2024 Scheduled Referrals Name Type Priority Associated Diagnoses Orde r Schedule HOME HEALTH REFERRAL OP Referral Within 10 days (routine) Ataxia, post-stroke Ordered: 07/12/2024 Health Maintenance Due Date Last Done Comments Zoster Vaccines (1 of 2) 1989 Adult Wellness Visit 07/24/2016 07/24/2015 Depression Screening 04/29/2021 04/29/2020 COVID-19 Vaccine ( season) 2024 11/17/2023, 12/02/2021, 03/15/2021, Additional history exists Diabetic Foot Exam 04/28/2024 04/28/2023, 0 03/12/2022, 04/01/2021, Additional history exists HbA1c 05/18/2024 11/17/2023, 03/31, 11/17/2022, Additional history exists Influenza Vaccine (FLU shot) (#1) 2024 10/29/2023, 09/17/2022, 10/17/2021, Additional history exists Diabetic Eye Exam 09/03/2024 09/03/2023, , 09/03/2023, Additional history exists Albumin/Creatinine Ratio 11/17/202411/17/ 023, 11/17/2022, 11/13/2021, Additional history exists TSH [...] Primary Ataxia, late effect of cerebrovascular disease Dysuria Dermatitis Contact dermatitis and other eczema, due to unspecified cause documented in this encounter
--- OUTSIDE RECORDS SUMMARY | 2024-08-04 00:14 | External Medical Summary ---
Author Name Unknown Address Unknown Organization [id number]:[facility] [address] [place] [address] Laboratory Report Ordering Provider Test Date Status ARELY CRAWLEYJERMAINE 07/12/2024 14:48:01 Final Observation Date Value Abnormality Reference (Units) Status Bacteria identified in Specimen by Culture 07/12/2024 14:48:01 No significant growth Final Test: Culture, Urine, Quanti tative
Specimen Source: Urine, Clean Catch
Specimen Type: Urine
Specimen Date: 07/12/2024 1448
Result Date: 07/13/2024 1746
Result Status: Final result
Resulting Lab: [facility] [place]
[address]
[place] [id number]

CULTURE

No significant growth

null Performing Location [facility] [place] - [address] [facility] [address]
--- OUTSIDE RECORDS SUMMARY | 2024-08-04 00:14 | External Medical Summary | Summary of Care ---
Author Name Unknown Organization [facility] [address] [facility] [facility] [address] Phone [phone] Care Team Providers Care Disintegrator Feeder Name Role Phone Unavailable Primary Care Provider Unavailabl e Reason for Referral * Evaluate & Treat - Unlimited Visits (Within 10 days (routine)) - Authorized Specialty Diagnoses / Procedures Referred By Contkimberly osborne Referred To Contact HOME CARE / Home Care Diagnoses Ataxia, post-stroke Rolanda Villalpando PA-C [address] [place] [address] [place] [address] Referral ID Status Reason Start Date Expiration Date Visits Requested Visits Authorized [id number] Authorized Specialty Services Required 07/12/2024 999 999 Question Answer Referral Priority Within 10 days (routine) Where should this appointment be scheduled? [facility] Laurent Documentation of [id number]-[id number] Encounter Addendum Patient Name: Yudelka Palacios I certify that this patient is under my care and that I, or a nurse practitioner or physician's economist research assistant working with me, had a [id number] encounter that meets the physician [id number] encounter requirements with this patient on: 07/12/24 [...] effort and are for medical reasons or [employer] services or infrequently or of short duration when for other reason) because: PABLO DELAROSA Physician Signature: Date of Signature: Physician Printed Name: Rolanda Villalpando PA-C Reason for Visit * Reason Comments Re-Check Emergency Department Follow-Up Encounter Details Date Type Department Care Team (Late st Contact Info) Description 07/12/2024 1:40 PM EDT Office Visit Family Medicine [address] [phone] Rolanda Villalpando PA-C [address] [place] [address] [place] [id number] Ataxia, post-stroke*; Dysuria; Dermatitis Allergies Active Allergy Reactions Criticality Noted Date Comments Brassica Oleracea 05/17/2020 Other Reaction(s): Gas Crab (Diagnostic) 04/05/2018 Crab Extract 05/17/2020 Other Reaction(s): diarrhea Food (See Comments) 07/24/2015 Broccoli, beans, cauliflower - cause gas Grapefruit, oranges - cause bronchitis - positive skin test Grapefruit Extract 05/17/2020 Other Reaction(s): BRONCHITIS Rankin Oil 05/17/2020 Other Reaction(s): BRONCHITIS Paroxetine Hydrochloride [...] Blood)Indications:DM type 2, 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% ([facility]) Test blood sugar once daily as directed; [...] blood pressure less than 140/90,Atheroscleros is of [place] coronary artery [place] heart without angina pectoris,Paroxysmal atrial fibrillation (HCC) Take 1 Tablet by mouth in the morning and 1 Tablet before bedtime. 180 Tablet 1 04/21/2024 Active Montelukast Sodium 10 MG Oral Tablet (Singulair)Indicatio ns:Other seasonal allergic rhinitis Take 1 Tablet by mouth at bedtime. 90 Tablet 1 04/21/2024 Active Atorvastatin Calcium 20 MG Oral Tablet (Lipitor)Indications :Atherosclerosis of [place] coronary artery [place] heart without angina pectoris,Paroxysmal atrial fibrillation (HCC),Dyslipidemia, [...] gone. 10 Tablet 07/12/2024 4 Active Nystatin 130026 UNIT/GM External CreamIndications:Jeffry matitis Apply topically to [...] ase with esophagitis 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 Atherosclerosis of [place] co ronary artery of [place] heart without angina pectoris Adjustment disorder with [...] persistent 09/23/2012 09/23/2012 Genetic Sleep Disorder Resea [facility] Other*[id number] 09/12/2012 06/25/2016 Obesity, Class II, BMI 35-39 [...] Wednesday & went to the ER at [facility] Large bruising & swelling on left [...] skin test Grapefruit Extract Other Reaction(s): BRONCHITIS Rankin Oil Other Reaction(s): BRONCHITIS Paxil [Paroxetine Hydrochloride] [...] Allergic rhinitis Asthma Atrial fibrillation (HCC) 01/08/2013 [facility] Benign hypertension with CKD (chronic kidney disease) stage III ([facility]) Benign hypertension with CKD (chronic kidney disease), stage II 04/01/2021 BMI 36.0-36.9,adult Calcium deposit in bursa, unspecified hip Cataract, nuclear sclerotic, both eyes Central stenosis of spinal canal 06/11/2021 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 Coronary atherosclerosis of the [place] coronary artery DM type 2, goal HbA1c [...] or female climacteric states Vasovagal syncope 10/24/2023 [facility] Social History Socioeconomic History Marital status: Spouse [...] History Narrative 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, 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[employer]: [employer] Social Determinants of Health Financial Resource Strain: Low Risk (03/30/2023) [facility] Overall Financial Resource Strain (CARDIA) Difficulty of Paying Living Expenses: Not hard at all Food Insecurity: No Food Insecurity (07/24/2019) Hunger Vital Sign Worried About Running Out of Food in the Last Year: Never true Ran Out of Food in the Last Year: Never true Transportation Needs: No Transportation Needs (03/30/2023) Received from [facility], [facility] PRAPARE - Transportation Lack of Transportation (Medical): [...] - CULTURE, URINE, QUANTITATIVE Dermatitis - Nystatin 293310 UNIT/GM External Cream; Apply topically to affected [...] Wednesday & went to the ER at [facility] Large bruising & swelling on left elbow. She "thinks" they scanned her head & ribs? documented in this encounter Plan of Treatment Upcoming Encounters Date Type Department Care Team (Late st Contact Info) Description 07/20/2024 11:00 AM EDT Office Visit Cardiology, [facility] [address] [place] [address] Gabrielle Bell CRNP [address] [place] [address] 09/11/2024 2:20 PM EDT Office Visit Family Medicine [address] [place] [phone] Rolanda Villalpando PA-C [address] [place] [address] [place] [address] 12/11/2024 2:30 PM EST Office Visit Cardiology, [facility] [address] [place] [address] Chace Peacock DO [address] [place] [id number] Scheduled Orders Name Type Priority Associated Diagnoses [...]
--- NOTE | 2024-08-04 02:50 | CT Scan Report ---
Exam(s): CT HEAD Without Contrast EXAM: CT Head Without Intravenous Contrast CLINICAL HISTORY: Reason for exam: syncope. TECHNIQUE: Axial computed tomography images of the head/brain without intravenous contrast. CTDI is 38.43 mGy and DLP is 1128.99 mGy-cm. Automated exposure control was utilized for the study. A dose lowering technique was utilized adhering to the principles of ALARA. COMPARISON: CT Head dated 10/22 FINDINGS: Brain: Volume loss with prominent ventricles and sulci. Periventricular and subcortical white matter hypoattenuation likely reflects chronic small vessel disease. No hemorrhage. Ventricles: See above. Bones/joints: Unremarkable. No acute fracture. Soft tissues: Unremarkable. Sinuses: Unremarkable as visualized. No acute sinusitis. Mastoid air cells: Unremarkable as visualized. No mastoid effusion. Orbits: Bilateral intraocular lens implants. IMPRESSION: No acute findings in the head/brain. Electronically signed by: Nik Camarena M.D. 08/04/24 02:49 AM
--- NOTE | 2024-08-04 03:42 | CT Scan Report ---
Exam(s): CTA CHEST IV Amt: 118 ML OPTIRAY 320 EXAM: CT Angiography Chest With Intravenous Contrast CLINICAL HISTORY: Reason for exam: PE. TECHNIQUE: Axial computed tomographic angiography images of the chest with intravenous contrast. CTDI is 38.43 mGy and DLP is 1128.99 mGy-cm. Automated exposure control was utilized for the study. A dose lowering technique was utilized adhering to the principles of ALARA. MIP reconstructed images were created and reviewed. COMPARISON: CTA Chest dated 10/08/2011 FINDINGS: Pulmonary arteries: Enlarged pulmonary artery. No pulmonary embolism. Aorta: No acute findings. No thoracic aortic aneurysm. Lungs: Mild bibasilar atelectasis. No mass. Pleural space: Unremarkable. No significant effusion. No pneumothorax. Heart: Coronary calcifications. No cardiomegaly. No significant pericardial effusion. No evidence of RV dysfunction. Mediastinum: Moderate esophageal hiatal hernia. Bones/joints: No acute fracture. No dislocation. Soft tissues: Unremarkable. Lymph nodes: Unremarkable. No enlarged lymph nodes. IMPRESSION: 1. No evidence of pulmonary embolism. 2. Enlarged pulmonary artery. Likely represents pulmonary arterial hypertension. 3. Moderate esophageal hiatal hernia. Electronically signed by: Nik Camarena M.D. 08/04/24 03:41 AM
[2024-08-04] MEDS: MAGNESIUM SULFATE / D5W 1 GM/100 ML BAG IV ONE (04:04)
[2024-08-04] MEDS ORDERED: PROMETHAZINE 6.25 MG/50.25 ML BAG IV PRN (04:50)
[2024-08-04] MEDS ORDERED: oxyCODONE HCL IR 5 MG TAB (IMMEDIATE RELEASE) PO PRN (04:50)
--- NOTE | 2024-08-04 05:22 | History & Physical Report ---
Date of Service August 04, 2024 Assessment & Plan (1) Acute hypoxemic respiratory failure: Plan: Transient hypoxemia documented at the ER Patient denies SOB symptoms. Chest/epigastric pain Multifactorial hypertensive crisis Uncontrolled GERD from hiatal hernia Syncopal event likely vasovagal secondary to pain Orthostasis possible etiology given documented hypotension by EMS at home. Hypomagnesemia secondary to GI illness chronic diastolic heart failure (EF 65 to 70%, TTE 2023), patient on the dry side hx CAD status post stent PAF on Eliquis History cardioembolic CVA hyperlipidemia, on statin Rx DEMARIO on CPAP DM2 on oral medications, well-controlled as of recent hemoglobin A1c of 5.6 last month hypothyroidism, euthyroid as of today's TSH chronic anemia, hemoglobin better than baseline secondary to hemoconcentration PCU Supplemental O2 as needed Titrate home BP meds carefully given concern for orthostasis Increase PPI frequency to twice daily dosing for GERD/hiatal hernia Replace magnesium ISS BG goal 1 10-1 40, carb count coverage DVT prophylaxis. Eliquis Full code Patient requests for son to be given updates on her progress. Mr. Titus Palacios, contact #[phone]. Text document was generated using [employer] voice recognition software. It may contain grammatical or spelling errors. Kindly contact undersigned for clarification of any documentation item in question. History of Present Illness Chief Complaint: Chest/abdominal pain, syncope Primary Care Provider: Mitali Claudio History obtained from patient and records. Medical history significant for chronic diastolic heart failure (EF 65 to 70%, TTE 2023), CAD status post stent, PAF on Eliquis, CVA, hypertension, hyperlipidemia, DEMARIO on CPAP, DM2 on oral medications, hypothyroidism, chronic anemia (baseline hemoglobin of 11), GERD, hiatal hernia, mood disorder. Last confinement January 2024 for strokelike symptoms attributed to recrudescence secondary to UTI. Recent ER visit last month for fall. Patient not feeling well since yesterday. Achy epigastric pain going to the chest without SOB. Headache, nausea and vomiting. Witnessed syncopal event at home lasting for few moments. No witnessed seizures. SBP range 90-200s as per EMS documentation. Patient brought to ER for evaluation. Patient currently comfortable. Transient O2 sats of 80s documented at the ER. 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 Allergies Allergy/AdvReac Type Severity Reaction Status Date / Time paroxetine Allergy Severe ANAPHYLAXIS Verified 02/08/24 13:35 mold Allergy Intermediate asthma Verified 02/08/24 13:35 symptoms pollen extracts Allergy Intermediate asthma Verified 02/08/24 13:35 symptoms Penicillins Allergy Mild Unknown Verified 02/08/24 13:35 vasquez AdvReac Intermediate gas and Verified 02/08/24 13:35 bloating with consuption of green or kidneys beans broccoli AdvReac Intermediate GAS Verified 02/08/24 13:35 crab AdvReac Intermediate diarrhea Verified 02/08/24 13:35 grapefruit AdvReac Intermediate BRONCHITIS Verified 02/08/24 13:35 orange AdvReac Intermediate BRONCHITIS Verified 02/08/24 13:35 peanut AdvReac Intermediate gas/bloatin Verified 02/08/24 13:35 g Home Medications Medication Instructions Recorded Confirmed Type atorvastatin 20 mg tablet 20 mg PO HS 08/22/19 08/04/24 History dexlansoprazole 60 mg 60 mg PO DAILYBB 08/22/19 08/04/24 History capsule,biphase delayed release (Dexilant) metformin 850 mg tablet 850 mg PO BIDM 08/22/19 08/04/24 History montelukast 10 mg tablet 10 mg PO HS 08/22/19 08/04/24 History bimatoprost 0.01 % eye drops 1 drp OPB HS 05/08/22 08/04/24 History (Sumeet) fluticasone 250 mcg-salmeterol 50 1 inh inhalation BID 10/23/23 08/04/24 History mcg/dose blistr powdr for inhalation (Wixela Inhub) oxybutynin chloride 10 mg 10 mg PO QAM 10/23/23 08/04/24 History tablet,extended release 24 hr levothyroxine 100 mcg tablet 100 mcg PO DAILYBB 12/02/23 08/04/24 History nifedipine 90 mg tablet,extended 90 mg PO DAILY 12/02/23 08/04/24 History release 24 hr apixaban 5 mg tablet (Eliquis) 5 mg PO Q12 12/23/23 08/04/24 History losartan 100 mg tablet 100 mg PO DAILY 02/08/24 08/04/24 History metoprolol tartrate 25 mg tablet 12.5 mg PO BID 02/08/24 08/04/24 History ivzgqyctenel-qjjrvwxe-advkmk tablet 1 tab PO DAILY 02/08/24 08/04/24 History sodium chloride 1,000 mg soluble 1,000 mg PO BID 02/08/24 08/04/24 History tablet ascorbic acid (vitamin C) 500 mg 500 mg PO DAILY 08/04/24 08/04/24 History tablet (Vitamin C) [facility] 08/04/[facility] 08/04/24 History Verio test strips) cholecalciferol (vitamin D3) 25 25 mcg PO DAILY 08/04/24 08/04/24 History mcg (1,000 unit) capsule (Vitamin D3) coenzyme Q10 100 mg capsule 100 mg PO DAILY 08/04/24 08/04/24 History (CoQ-10) cyanocobalamin (vitamin B-12) 1,000 mcg PO DAILY 08/04/24 08/04/24 History 1,000 mcg tablet (Vitamin B-12) furosemide 20 mg tablet 20 mg PO 1XD 08/04/24 08/04/24 History lancets 30 gauge ([facility] 08/04/24 08/04/24 History Plus Lancet) magnesium oxide 400 mg (241.3 mg 400 mg PO DAILY 08/04/24 08/04/24 History magnesium) tablet potassium chloride 20 mEq 20 meq PO 1XD 08/04/24 08/04/24 History tablet,extended release(part/cryst) (Cristofer M) ramelteon 8 mg tablet 8 mg PO HS 08/04/24 08/04/24 History zinc 50 mg tablet 50 mg PO DAILY 08/04/24 08/04/24 History Past Med/Surg History Problem List Acute hypoxemic respiratory failure Hypomagnesemia (Acute) Vomiting (Acute) Chest pain (Acute) Syncope (Acute) Hypomagnesemia (Acute) Stroke-like symptoms (Acute) Nausea & vomiting (Acute) Arthralgia Embolic stroke Elevated troponin Near syncope Ambulatory dysfunction (Acute) Chronic pain in left foot (Acute) Hypomagnesemia (Acute) Generalized weakness (Acute) Osteoarthritis of ankle, left HTN (hypertension) Left ankle swelling (Acute) Hypomagnesemia (Acute) Syncope and collapse (Acute) Right rotator cuff tear Right knee DJD Hypokalemia CAD (coronary artery disease) (Chronic) stent in 1999 Anemia (Acute) Postoperative bleeding from mouth (Acute) Orthostatic syncope (Acute) Chronic anticoagulation (Acute) Near syncope DVT prophylaxis Postoperative bleeding from mouth History of rotator cuff surgery (Chronic) History of cataract extraction (Chronic) T2DM (type 2 diabetes mellitus) (Chronic) HTN (hypertension) (Chronic) HLD (hyperlipidemia) (Chronic) PAF (paroxysmal atrial fibrillation) (Chronic) DEMARIO (obstructive sleep apnea) (Chronic) Asthma (Chronic) CKD (chronic kidney disease) stage 3, GFR 30-59 ml/min (Chronic) Primary open angle glaucoma (Chronic) History of arthroscopic knee surgery (Chronic) History of tonsillectomy (Chronic) GERD (gastroesophageal reflux disease) (Chronic) History of appendectomy (Chronic) Hypothyroidism (Chronic) History of placement of stent in LAD coronary artery (Chronic) Sleep apnea (Chronic) Stented coronary artery (Chronic) Family History Father CHF (congestive heart failure) Mother Cancer Social History Smoking Status: Never smoker Second Hand Exposure: No; Do You Dip or Chew Tobacco: No; Hx Alcohol Use: No Hx Substance Use: No Preferred Language: [place] Communication Ability: Effective Director Regulatory Agency Required: No Beliefs That Will Affect Care: None marital status: Life Partner Current Living Situation: Significant Other Current Living Situation Comment: s/o Feels Safe at Home: Yes Safety Concerns: Feels Safe At This Time Assistive Devices: Glasses and Walker Review of Systems Review of Systems: As per HPI, all other systems reviewed and negative Physical Exam Physical Exam: GENERAL: wane, no respiratory distress SKIN: Pallor, warm HEENT: Pale palpebral conjunctivae, no ptosis, dry buccal mucosa NECK : Supple, no tenderness CHEST : Decreased breath sounds, no tenderness HEART : Bradycardic, no obvious murmurs ABDOMEN: Some distention, epigastric tenderness EXTREMITIES : Minimal LE swelling, no LE tenderness, no other conspicuous deformities noted NEUROLOGIC : Coherent, no facial asymmetry, no other gross focality Results & Data Results & Data Vital Signs (Past 12 Hours) Vital Signs Temp Pulse Pulse Resp BP BP Pulse Ox 08/04/24 04:00 56 L 22 139/64 99 08/04/24 02:22 56 L 08/04/24 02:10 85 L 08/04/24 02:00 114/60 08/04/24 01:48 59 L 18 114/60 94 08/04/24 01:06 60 18 122/57 L 94 08/04/24 00:15 65 12 154/82 H 95 08/03/24 23:09 99 H 18 146/81 H 92 08/03/24 22:36 94 08/03/24 22:36 94 08/03/24 22:36 36.5 C 76 12 146/81 H 94 08/03/24 22:25 77 O2 Del Method O2 Flow Rate 08/04/24 04:00 Room Air 08/04/24 02:22 08/04/24 02:10 Room Air, Nasal Cannula 0 08/04/24 02:00 08/04/24 01:48 08/04/24 01:06 08/04/24 00:15 08/03/24 23:09 08/03/24 22:36 Room Air 08/03/24 22:36 Room Air 0 08/03/24 22:36 Room Air 08/03/24 22:25 Laboratory Results Laboratory Results WBC 8.68 K/ul (4.8-10.8) 08/03/24 22:30 RBC 4.02 M/uL (4.20-5.40) L 08/03/24 22:30 Hgb 12.4 g/dl (12.0-16.0) 08/03/24 22:30 POC Hgb 12.9 g/dl (12.0-16.0) 08/03/24 22:41 Hct 36.6 % (37.0-47.0) L 08/03/24 22:30 POC Hct 38 % (37-47) 08/03/24 22:41 MCV 91.0 fL (80.0-100.0) 08/03/24 22:30 MCH 30.8 pg (25.0-34.0) 08/03/24 22:30 MCHC 33.9 g/dL (32.0-36.0) 08/03/24 22:30 RDW Std Deviation 47.2 fL (36.4-46.3) H 08/03/24 22: RDW Coeff of Stoney 13.9 % (11.5-14.5) 08/03/24 22:30 Plt Count 266 K/uL (130-400) 08/03/24 22: MPV 12.1 fL (9.4-12.4) 08/03/24 22:30 Immature Gran % (Auto) 0.1 % 08/03/24 22:30 Neut % (Auto) 67.6 % 08/03/24 22:30 Lymph % (Auto) 25.0 % 08/03/24 22:30 [place] % (Auto) 5.6 % 08/03/24 22:30 Eos % (Auto) 1.2 % 08/03/24 22: Baso % (Auto) 0.5 % 08/03/24 22:30 Neut # (Auto) 5.87 K/uL (1.40-6.50) 08/03/24 22:30 Lymph # (Auto) 2.17 K/uL (1.20-3.40) 08/03/24 22:30 Mingo # (Auto) 0.49 K/uL (0.11-0.59) 08/03/24 22:30 Eos # (Auto) 0.10 K/uL (0.00-0.50) 08/03/24 22:30 Baso # (Auto) 0.04 K/uL (0.00-0.20) 08/03/24 22:30 Immature Gran # (Auto) 0.01 K/uL (0.01-0.20) 08/03/24 22:30 POC Sodium 138 mmol/L (135-144) 08/03/24 22:41 Sodium 138 mmol/L (136-145) 08/03/24 22: POC Potassium 3.7 mmol/L (3.3-5.0) 08/03/24 22:41 Potassium 3.8 mmol/L (3.5-5.1) 08/03/24 22:30 POC Chloride 103 mmol/L (101-112) 08/03/24 22: Chloride 103 mmol/L (98-107) 09/05/24 22:30 Carbon Dioxide 23 mmol/L (21-32) 08/03/24 22:30 POC Total CO2 22 mmol/L (24-31) L 08/03/24 22:41 Anion Gap 12 (3-11) H 08/03/24 22:30 POC Anion Gap 17.0 mmol/L (16-25) 08/03/24 22:41 POC BUN 18 mg/dl (7-18) 08/03/24 22:41 BUN 19 mg/dl (6-23) 08/03/24 22:30 Creatinine 0.66 mg/dl (0.6-1.2) 08/03/24 22:30 POC Creatinine 0.6 mg/dl (0.6-1.3) 08/03/24 22:41 Est Cr Clr Drug Dosing 54.4 ml/min 08/03/24 22:30 Est GFR ( Amer) 93.4 ml/min 08/03/24 22:30 Est GFR (Non-Af Amer) 80.6 ml/min 08/03/24 22:30 BUN/Creatinine Ratio 28.8 (10-20) H 08/03/24 22:30 Glucose 175 mg/dl (70-99(Fasting)) H 08/03/24 22:30 POC Glucose (other) 176 mg/dl (70-99) H 08/03/24 22:41 Calcium 9.5 mg/dl (8.6-10.3) 08/03/24 22:30 POC Ioniz Calcium Geni 1.19 mmol/l (1.12-1.32) 08/03/24 22:41 Magnesium 1.3 mg/dl (1.7-2.4) L 08/03/24 22:30 Total Bilirubin 0.3 mg/dl (0.2-1.0) 08/03/24 22:30 AST 14 U/L (13-39) 08/03/24 22:30 ALT 11 U/L (7-52) 08/03/24 22:30 Alkaline Phosphatase 47 U/L (34-104) 08/03/24 22:30 Total Creatine Kinase 21 U/L (26-192) L 08/03/24 22:30 Troponin I High Sens 6.5 pg/ml (0-14) 08/03/24 22:30 Total Protein 6.3 gm/dl (6.0-8.3) 08/03/24 22:30 Albumin 4.0 gm/dl (3.4-5.0) 08/03/24 22:30 Globulin 2.3 gm/dl (2.5-4.0) L 08/03/24 22:30 Albumin/Globulin Ratio 1.7 (0.9-2) 08/03/24 22:30 Lipase 16 U/L (11-82) 08/03/24 22:30 TSH 0.426 uIu/ml (0.300-4.500) 08/03/24 22:30 Urine Color Dark Yellow 08/03/24 22:37 Urine Appearance Clear (Clear) 08/03/24 22: Urine pH 7.5 (4.5-7.5) 08/03/24 22:37 Ur Specific [place] 1.015 (1.000-1.030) 08/03/24 22:37 Urine Protein Negative (Negative) 08/03/24 22:37 Urine Glucose (UA) Negative (Negative) 08/03/24 22:37 Urine Ketones Trace (Negative) H 08/03/24 22:37 Urine Blood Negative (Negative) 08/03/24 22:37 Urine Nitrite Negative (Negative) 08/03/24 22:37 Urine Bilirubin Negative (Negative) 08/03/24 22:37 Urine Urobilinogen Negative (Negative) 08/03/24 22:37 Ur Leukocyte Esterase Negative (Negative) 08/03/24 22:37 Adenovirus (PCR) Not Detected (NotDetected) 08/03/24 22:30 B. pertussis DNA (PCR) Not Detected (NotDetected) 08/03/24 22:30 B.parapertussis DNA PCR Not Detected (NotDetected) 08/03/24 22:30 C. pneumoniae DNA (PCR) Not Detected (NotDetected) 08/03/24 22:30 Coronavirus OC43 (PCR) Not Detected (NotDetected) 08/03/24 22:30 Coronavirus HKU1 (PCR) Not Detected (NotDetected) 08/03/24 22:30 Coronavirus 229E (PCR) Not Detected (NotDetected) 08/03/24 22:30 SARS-CoV-2 (PCR) Not Detected (NotDetected) 08/03/24 22:30 Coronavirus NL63 (PCR) Not Detected (NotDetected) 08/03/24 22:30 Human Metapneumovir PCR Not Detected (NotDetected) 08/03/24 22:30 Influenza Type A (PCR) Not Detected (NotDetected) 08/03/24 22:30 Influenza Type B (PCR) Not Detected (NotDetected) 08/03/24 22:30 M. pneumoniae (PCR) Not Detected (NotDetected) 08/03/24 22:30 Parainfluenza 1 (PCR) Not Detected (NotDetected) 08/03/24 22:30 Parainfluenza 2 (PCR) Not Detected (NotDetected) 08/03/24 22:30 Parainfluenza 3 (PCR) Not Detected (NotDetected) 08/03/24 22:30 Parainfluenza 4 (PCR) Not Detected (NotDetected) 08/03/24 22:30 RSV (PCR) Not Detected (NotDetected) 08/03/24 22:30 Entero/Rhino (PCR) Not Detected (NotDetected) 08/03/24 22:30 Impressions Chest CTA 08/03/24 22:37 Exam(s): CTA CHEST IV Amt: 118 ML OPTIRAY 320 EXAM: CT Angiography Chest With Intravenous Contrast CLINICAL HISTORY: Reason for exam: PE. TECHNIQUE: Axial computed tomographic angiography images of the chest with intravenous contrast. CTDI is 38.43 mGy and DLP is 1128.99 mGy-cm. Automated exposure control was utilized for the study. A dose lowering technique was utilized adhering to the principles of ALARA. MIP reconstructed images were created and reviewed. COMPARISON: CTA Chest dated 10/08/2011 FINDINGS: Pulmonary arteries: Enlarged pulmonary artery. No pulmonary embolism. Aorta: No acute findings. No thoracic aortic aneurysm. Lungs: Mild bibasilar atelectasis. No mass. Pleural space: Unremarkable. No significant effusion. No pneumothorax. Heart: Coronary calcifications. No cardiomegaly. No significant pericardial effusion. No evidence of RV dysfunction. Mediastinum: Moderate esophageal hiatal hernia. Bones/joints: No acute fracture. No dislocation. Soft tissues: Unremarkable. Lymph nodes: Unremarkable. No enlarged lymph nodes. IMPRESSION: 1. No evidence of pulmonary embolism. 2. Enlarged pulmonary artery. Likely represents pulmonary arterial hypertension. 3. Moderate esophageal hiatal hernia. Electronically signed by: Nik Camarena M.D. 08/04/24 03:[address] 08/03/24 22:37 Exam(s): CT HEAD Without Contrast EXAM: CT Head Without Intravenous Contrast CLINICAL HISTORY: Reason for exam: syncope. TECHNIQUE: Axial computed tomography images of the head/brain without intravenous contrast. CTDI is 38.43 mGy and DLP is 1128.99 mGy-cm. Automated exposure control was utilized for the study. A dose lowering technique was utilized adhering to the principles of ALARA. COMPARISON: CT Head dated 10/22 FINDINGS: Brain: Volume loss with prominent ventricles and sulci. Periventricular and subcortical white matter hypoattenuation likely reflects chronic small vessel disease. No hemorrhage. Ventricles: See above. Bones/joints: Unremarkable. No acute fracture. Soft tissues: Unremarkable. Sinuses: Unremarkable as visualized. No acute sinusitis. Mastoid air cells: Unremarkable as visualized. No mastoid effusion. Orbits: Bilateral intraocular lens implants. IMPRESSION: No acute findings in the head/brain. Electronically signed by: Nik Camarena M.D. 08/04/24 02:49 AM Diagnostic Findings EKG as per my interpretation :Rate 75, NSR, LAD, LAFB, septal infarct, no ischemia Code Status & VTE Plan VTE Prophylaxis Plan VTE Prophylaxis will be ordered: Yes
[2024-08-04 05:44] LABS: Base Excess VBG 3.8 mEq/L; HCO3 VBG 29 mmol/L; Oxygen Saturation VBG 67.1 %; PCO2 VBG 46 mmHg (38-50); PO2 VBG 37 mmHg; pH VBG 7.41 (7.36-7.41)
[2024-08-04 05:56] LABS: Basophils # (auto) 0.03 K/uL (0.00-0.20); Basophils % (auto) 0.3 %; Hematocrit (blood only) 35.2 % (37.0-47.0); Hemoglobin 11.6 g/dl (12.0-16.0); Immature Granulocytes # (auto) 0.03 K/uL (0.01-0.20); Immature Granulocytes % (auto) 0.3 %; Lymphocytes # (auto) 1.25 K/uL (1.20-3.40); Mean Corpuscular Hemoglobin 30.7 pg (25.0-34.0); Mean Corpuscular Volume 93.1 fL (80.0-100.0); Mean Platelet Volume 11.5 fL (9.4-12.4); Monocytes # (auto) 0.53 K/uL (0.11-0.59); Monocytes % (auto) 5.5 %; Neutrophils # (auto) 7.78 K/uL (1.40-6.50); Neutrophils % (auto) 80.9 %; Platelet Count 235 K/uL (130-400); RDW Coefficient of Variation 14.1 % (11.5-14.5); RDW Standard Deviation 47.9 fL (36.4-46.3); Red Blood Count 3.78 M/uL (4.20-5.40); White Blood Count 9.62 K/ul (4.8-10.8)
[2024-08-04 06:04] LABS: BUN Creatinine Ratio 24.6 (10-20); Calcium 9.1 mg/dl (8.6-10.3); Creatinine Clr Calc Pharmacy 55.3 ml/min; Est GFR (African American) 93.8 ml/min; Potassium 3.8 mmol/L (3.5-5.1)
[2024-08-04 06:12] LABS: Troponin I High Sensitivity 13.3 pg/ml (0-14)
[2024-08-04] MEDS ORDERED: GLUCOSE 10 TAB/TUBE PO PRN (06:12)
[2024-08-04] MEDS ORDERED: CARBOHYDRATES FOR HYPOGLYCEMIA PO PRN (06:12)
[2024-08-04] MEDS ORDERED: NITROGLYCERIN SL 0.4 MG/TAB TAB SL PRN (06:12)
[2024-08-04] MEDS ORDERED: GLUCOSE 40% GEL 15 GM TUBE PO PRN (06:12)
[2024-08-04] MEDS ORDERED: DEXTROSE 50% 50 ML SYRINGE IV PRN (06:12)
[2024-08-04] MEDS ORDERED: GLUCAGON FOR INJ 1 MG VIAL SQ PRN (06:12)
[2024-08-04 06:16] LABS: Partial Thromboplastin Time 27 Seconds (21-31)
--- NOTE | 2024-08-04 07:51 | XRay Report ---
XR chest 1V portable HISTORY: Chest pain. COMPARISON: Chest 07/09/2024. FINDINGS: Slightly rotated study. No pneumothorax. No pleural effusions. The heart remains mildly enl arged. Mitral and is calcifications are again noted. No new focal lung consolidations to suggest a pn eumonia. No evidence for pulmonary edema. Degenerative changes within the shoulders. IMPRESSION: No significant change compared to the prior study. No acute process. ACT 112: Negative or not required by law. Electronically signed by: Charlie Atkinson M.D. 08/04/2024 7:50 AM
[2024-08-04] MEDS: PANTOprazole 40 MG TAB PO SCH (08:12)
[2024-08-04] MEDS: LOSARTAN POTASSIUM 50 MG TAB PO STA (08:12)
[2024-08-04] MEDS: LEVOTHYROXINE SODIUM 100 MCG TABLET PO SCH (08:13)
[2024-08-04] MEDS: APIXABAN 5 MG TABLET PO SCH (08:13)
[2024-08-04] MEDS: OXYBUTYNIN CHLORIDE XL 5 MG TABCR PO SCH (08:14)
[2024-08-04] MEDS: NIFEdipine EXTENDED REL 30 MG TABCR PO SCH (08:14)
[2024-08-04] MEDS: CYANOCOBALAMIN (B-12) 500 MCG TABLET PO SCH (08:15)
[2024-08-04] MEDS: METOPROLOL TARTRATE 25 MG TAB PO SCH (08:16)
[2024-08-04] MEDS: CEROVITE ADV FORMULA TAB PO SCH (08:16)
[2024-08-04] MEDS: FLUTICASONE/VILANTEROL 200/25MCG 14 PUFFS/INHALER INH SCH (08:17)
[2024-08-04] MEDS: INSULIN ASPART PER UNIT CHARGE SC SCH (08:24)
--- NOTE | 2024-08-04 08:46 | Electrocardiogram Report ---
Test Reason : Blood Pressure : */* mmHG Vent. Rate : 76 BPM Atrial Rate : 76 BPM P-R Int : 184 ms QRS Dur : 90 ms QT Int : 410 ms P-R-T Axes : 91 -24 40 degrees QTcB Int : 461 ms Normal sinus rhythm Normal ECG Confirmed by Goyo Julian ([id number]) on 08/04/2024 8:46:23 AM Referred By: REFERRED SELF Confirmed By: Goyo Julian
[2024-08-04] MEDS ORDERED: LOSARTAN POTASSIUM 50 MG TAB PO SCH (09:00)
[2024-08-04] MEDS ORDERED: METOCLOPRAMIDE HCL INJ 5 MG/ML 2 ML VIAL IV PRN (11:25)
--- NOTE | 2024-08-04 11:26 | Hospitalist Progress Note ---
Date of Service August 04, 2024 Assessment & Plan (1) Vasovagal syncope: (2) Hiatal hernia with GERD: (3) Drug-induced sinus bradycardia: (4) Acute hypoxemic respiratory failure: (5) PAF (paroxysmal atrial fibrillation): (6) Hypomagnesemia: (7) T2DM (type 2 diabetes mellitus): Plan Patient presented with chest pain, nausea vomiting and some shortness of breath. Patient's respiratory failure now resolved and is on room air. Suspect patient had a acute vasovagal syncopal event due to having just eaten supper and her hiatal hernia being distended with food causing a vagal response. Ruled out for acute coronary syndrome via enzymes Patient also noted to be bradycardic here in the hospital but yet hypertensive. Suspect bradycardia is medication induced due to nifedipine and metoprolol. Discontinue nifedipine, continue metoprolol, Norvasc for hypertension control, may need additional adjustments Continue MedSurg telemetry monitoring Advance diet, minced and moist texture. Anticipate she will need to have dietary modifications due to her hiatal hernia and can pursue further outpatient evaluation if so desired. If patient cannot tolerate diet may need further investigation of the hiatal hernia while here in the hospital Replace magnesium Check laboratory studies in a.m. Continue chronic anticoagulation with Eliquis Continue to monitor glucose and insulin as needed. Admission and Anticipated Discharge Date Admission Date: August 04, 2024 Subjective Patient states she is feeling better. No shortness of breath. No recurrent nausea or vomiting. No chest pain. Physical Exam Physical Exam: Constitutional: Alert HEENT: Mucous membranes moist. Lungs: Clear to auscultation, decreased, no wheezes rales or rhonchi CV: S1-S2, regular, bradycardic Abdomen: Soft, nontender, nondistended Extremities: No significant edema Neuro: No focal deficits Psych: Cooperative, normal mood Results & Data Results & Data Vital Signs (Past 12 Hours) Vital Signs Temp Pulse Pulse Resp BP BP BP 08/04/24 10:41 36.4 C L 51 L 17 176/72 H 08/04/24 08:06 49 L 08/04/24 07:44 36.9 C 59 L 18 173/79 H 08/04/24 06:00 36.5 C 55 L 16 195/79 H 08/04/24 04:00 56 L 22 139/64 08/04/24 02:22 56 L 09/06/24 02:10 08/04/24 02:00 114/60 08/04/24 01:48 59 L 18 114/60 08/04/24 01:06 60 18 122/57 L 08/04/24 00:15 65 12 154/82 H Pulse Ox O2 Del Method O2 Flow Rate 08/04/24 10:41 97 Room Air 08/04/24 08:06 08/04/24 07:44 98 Room Air 08/04/24 06:00 98 Room Air 08/04/24 04:00 99 Room Air 08/04/24 02:22 08/04/24 02:10 85 L Room Air, Nasal Cannula 0 08/04/24 02:00 08/04/24 01:48 94 08/04/24 01:06 94 08/04/24 00:15 95 Diagnostic Findings Reviewed imaging, laboratory and diagnostic studies. Pertinent findings as below. Hemoglobin 11.6 Venous blood glass within normal ranges Base metabolic profile stable TSH 0.42
[2024-08-04] MEDS: MAGNESIUM OXIDE 400 MG TAB PO SCH (12:34)
[2024-08-04] MEDS: amLODIPine BESYLATE 5 MG TAB PO SCH (12:34)
[2024-08-04] MEDS: ATORVASTATIN 20 MG TAB PO SCH (20:27)
[2024-08-04] MEDS: MONTELUKAST SODIUM 10 MG TABLET PO SCH (20:27)
[2024-08-04] MEDS: BIMATOPROST 0.01% OP SOLN 2.5 ML BTL OPB SCH (20:28)
[2024-08-05 07:31] LABS: BUN Creatinine Ratio 21.9 (10-20); Calcium 9.2 mg/dl (8.6-10.3); Creatinine Clr Calc Pharmacy 47.4 ml/min; Est GFR (Non-African American) 75.1 ml/min; Potassium 3.6 mmol/L (3.5-5.1)
[2024-08-05 08:13] LABS: Magnesium 1.7 mg/dl (1.7-2.4)
[2024-08-05] MEDS: LOSARTAN POTASSIUM 50 MG TAB PO SCH (08:24)
[2024-08-05] MEDS ORDERED: NIFEdipine EXTENDED REL 30 MG TABCR PO SCH (09:00)
[2024-08-05] MEDS: POLYETHYLENE (MIRALAX) 17 GM PACK PO SCH (13:13)
--- NOTE | 2024-08-05 13:52 | Hospitalist Progress Note ---
Date of Service August 05, 2024 Assessment & Plan (1) Vasovagal syncope: Plan: Suspect patient had a acute vasovagal syncopal event due to having just eaten supper and her hiatal hernia being distended with food causing a vagal response. No more syncope while in the hospital Denies any epigastric discomfort and lower abdominal pain Will get orthostatic vitals Has constipation Bowel movement since Wednesday last Will try MiraLAX (2) Acute hypoxemic respiratory failure: Plan: Noted to have hypoxia in the emergency room Has had chest pain with some shortness of breath during admission ACS has been ruled out Has history of DEMARIO on CPAP may be contributing No more problem with breathing and has been saturating normally on room air (3) Hiatal hernia with GERD: (4) Drug-induced sinus bradycardia: Plan: Patient also noted to be bradycardic here in the hospital but yet hypertensive. Suspect bradycardia is medication induced due to nifedipine and metoprolol. Discontinue nifedipine, continue metoprolol, Norvasc for hypertension control, may need additional adjustments Blood pressure remains on the upper side at 150/75 Heart rate at 62/min (5) PAF (paroxysmal atrial fibrillation): Plan: Rate is controlled and no more bradycardia Continue chronic anticoagulation with Eliquis (6) Hypomagnesemia: (7) T2DM (type 2 diabetes mellitus): Admission and Anticipated Discharge Date Admission Date: August 04, 2024 Subjective 08/05/2024 Patient was seen and examined in medical telemetry unit She has been feeling much better but bowel has not moved since last Wednesday Feels discomfort in the abdomen without any pain, nausea and/or vomiting Her breathing seems to be stable Review of Systems Review of Systems: All systems reviewed and are unremarkable except as noted below Physical Exam Physical Exam: Lying in bed without any acute distress Constitutional: + ill appearing and + thin Eyes: PERRL, conjunctivae normal, anicteric sclerae ENMT: external ear and nose normal, oropharynx normal Neck: trachea midline, no thyromegaly Respiratory: no respiratory distress Auscultation: + diminished lung sounds and + crackles (Minimal crackles at the bases) Cardiovascular: Rate/Rhythm: regular rate and regular rhythm; not tachycardic Heart Sounds: normal S1, normal S2 and + murmur Extremities: no edema Gastrointestinal (Abdomen): Inspection/Auscultation: + abdomen distended ( Mildly distended) and normal bowel sounds Percussion/Palpation: abdomen soft; abdomen nontender Musculoskeletal: No acute arthritis involving any of the joint Neurologic: normal touch/pain/proprioception and moves all extremities; no focal motor deficits Lymphatic: no cervical or axillary lymphadenopathy Results & Data Results & Data Vital Signs (Past 12 Hours) Vital Signs Temp Pulse Pulse Pulse Resp BP BP 08/05/24 13:37 62 08/05/24 11:21 36.7 C 62 16 150/75 H 08/05/24 07:30 36.5 C 53 L 14 178/80 H 08/05/24 07:26 49 L 08/05/24 04:00 36.7 C 56 L 18 153/77 H Pulse Ox O2 Del Method 08/05/24 13:37 08/05/24 11:21 98 Room Air 08/05/24 07:30 96 Room Air 08/05/24 07:26 08/05/24 04:00 96 Room Air Laboratory Results BMP 08/05/24 06:49 Sodium 140 Potassium 3.6 Chloride 104 Carbon Dioxide 29 BUN 16 Creatinine 0.73 Glucose 109 H Calcium 9.2 Medications Administered Current Inpatient Medications Acetaminophen (Acetaminophen 325 Mg Tab) 650 mg PO QID PRN PRN Reason: pain/fever Stop: 09/03/24 04:49 Amlodipine Besylate (Amlodipine Besylate 5 Mg Tab) 10 mg PO QAM [facility] Stop: 09/03/24 11:29 Last Admin: 08/05/24 08:25 Dose: 10 mg Apixaban (Apixaban 5 Mg Tablet) 5 mg PO Q12 [facility] Stop: 09/03/24 08:59 Last Admin: 08/05/24 08:24 Dose: 5 mg Atorvastatin Calcium (Atorvastatin 20 Mg Tab) 20 mg PO HS [facility]SA Stop: 09/03/24 20:59 Last Admin: 08/04/24 20:27 Dose: 20 mg Bimatoprost (Bimatoprost 0.01% Op Soln 2.5 Ml Btl) 1 drops OPB HS [facility] Stop: 09/03/24 20:59 Last Admin: 08/04/24 20:28 Dose: 1 drops Cyanocobalamin (Cyanocobalamin (B-12) 500 Mcg Tablet) 1,000 mcg PO DAILY [facility] Stop: 09/03/24 08:59 Last Admin: 08/05/24 08:24 Dose: 1,000 mcg Dextrose (Dextrose 50% 50 Ml Syringe) 25 - 50 ml IV UD PRN; Protocol PRN Reason: Hypoglycemia Protocol Stop: 09/03/24 06:11 Fluticasone/Vilanterol (Fluticasone/Vilanterol 200/25mcg 14 Puffs/Inhaler) 1 puffs INH DAILY ALYSA; Protocol Stop: 09/03/24 08:59 Last Admin: 08/05/24 08:24 Dose: 1 puffs Glucagon (Glucagon For Inj 1 Mg Vial) 1 mg SQ UD PRN; Protocol PRN Reason: Hypoglycemia Protocol Stop: 09/03/24 06:11 Glucose (Glucose 40% Gel 15 Gm Tube) 15 - 30 gm PO UD PRN; Protocol PRN Reason: Hypoglycemia Protocol Stop: 09/03/24 06:11 Glucose (Glucose 10 Tab/Tube) 4 - 8 tab PO UD PRN; Protocol PRN Reason: Hypoglycemia Treatment Stop: 09/03/24 06:11 Insulin Aspart (Insulin Aspart Per Unit Charge) 0 units SC ACHS [facility] Stop: 09/03/24 07:29 Last Admin: 08/05/24 13:13 Dose: 3 units Levothyroxine Sodium (Levothyroxine Sodium 100 Mcg Tablet) 100 mcg PO DAILYBB [facility] Stop: 09/03/24 06:29 Last Admin: 08/05/24 05:55 Dose: 100 mcg Losartan Potassium (Losartan Potassium 50 Mg Tab) 100 mg PO DAILY [facility] Stop: 09/04/24 08:59 Last Admin: 08/05/24 08:24 Dose: 100 mg Magnesium Oxide (Magnesium Oxide 400 Mg Tab) 400 mg PO BID [facility] Stop: 09/03/24 11:44 Last Admin: 08/05/24 08:24 Dose: 400 mg Metoclopramide HCl (Metoclopramide Hcl Inj 5 Mg/Ml 2 Ml Vial) 10 mg IV Q6H PRN PRN Reason: Nausea Stop: 09/03/24 11:24 Metoprolol Tartrate (Metoprolol Tartrate 25 Mg Tab) 12.5 mg PO BID [facility] Stop: 09/03/24 08:59 Last Admin: 08/05/24 08:24 Dose: 12.5 mg Miscellaneous (Order Awaiting Action: Ramtyroneeon) 1 each N/A QS [facility] Stop: 09/03/24 07:59 Last Admin: 08/05/24 08:23 Dose: Not Given Miscellaneous (Carbohydrates For Hypoglycemia ) 15 - 30 gm PO UD PRN PRN Reason: Hypoglycemia Protocol Stop: 09/03/24 06:11 Montelukast Sodium (Montelukast Sodium 10 Mg Tablet) 10 mg PO HS [facility] Stop: 09/03/24 20:59 Last Admin: 08/04/24 20:27 Dose: 10 mg Multivitamins/Minerals (Cerovite Adv Formula Tab) 1 tab PO DAILY [facility] Stop: 09/03/24 08:59 Last Admin: 08/05/24 08:24 Dose: 1 tab Nitroglycerin (Nitroglycerin Sl 0.4 Mg/Tab Tab) 0.4 mg SL Q5M PRN PRN Reason: Chest Pain Stop: 09/03/24 06:11 Oxybutynin Chloride (Oxybutynin Chloride Xl 5 Mg Tabcr) 10 mg PO QAM [facility] Stop: 09/03/24 08:59 Last Admin: 08/05/24 09:22 Dose: 10 mg Oxycodone HCl (Oxycodone Hcl Ir 5 Mg Tab (Immediate Release)) 5 mg PO Q4H PRN PRN Reason: Pain Stop: 08/18/24 04:49 Pantoprazole Sodium (Pantoprazole 40 Mg Tab) 40 mg PO BID [facility] Stop: 09/03/24 08:59 Last Admin: 08/05/24 08:24 Dose: 40 mg Polyethylene Glycol (Polyethylene (Miralax) 17 Gm Pack) 17 gm PO DAILY [facility] Stop: 09/04/24 11:29 Last Admin: 08/05/24 13:13 Dose: 17 gm
[2024-08-05] MEDS: ACETAMINOPHEN 325 MG TAB PO PRN (16:23)
[2024-08-05] MEDS: hydrALAZINE HCL 25 MG TAB PO STA (17:18)
[2024-08-05] MEDS: hydrALAZINE HCL 25 MG TAB PO SCH (21:31)
[2024-08-06 06:58] LABS: BUN Creatinine Ratio 22.5 (10-20); Calcium 9.2 mg/dl (8.6-10.3); Creatinine Clr Calc Pharmacy 48.6 ml/min; Est GFR (Non-African American) 77.7 ml/min; Magnesium 1.7 mg/dl (1.7-2.4); Potassium 3.9 mmol/L (3.5-5.1)
--- NOTE | 2024-08-06 13:15 | Hospitalist Progress Note ---
Date of Service August 06, 2024 Assessment & Plan (1) Vasovagal syncope: Plan: Suspect patient had a acute vasovagal syncopal event due to having just eaten supper and her hiatal hernia being distended with food causing a vagal response. No more syncope while in the hospital Denies any epigastric discomfort and lower abdominal pain Will get orthostatic vitals-did not show any orthostatic pulse and/or BP change or any symptoms Will get PT and OT evaluation prior to discharge tomorrow Has constipation Bowel movement since Wednesday last Will try MiraLAX Bowel movement and she has been feeling a lot better (2) Acute hypoxemic respiratory failure: Plan: Noted to have hypoxia in the emergency room Has had chest pain with some shortness of breath during admission ACS has been ruled out Has history of DEMARIO on CPAP may be contributing No more problem with breathing and has been saturating normally on room air No more respiratory symptoms (3) Hiatal hernia with GERD: (4) Drug-induced sinus bradycardia: Plan: Patient also noted to be bradycardic here in the hospital but yet hypertensive. Suspect bradycardia is medication induced due to nifedipine and metoprolol. Discontinue nifedipine, continue metoprolol, Norvasc for hypertension control, may need additional adjustments Blood pressure remains on the upper side at 150/75 Heart rate at 62/min-nifedipine has been discontinued for bradycardia Blood pressure is controlled with the addition of hydralazine 25 mg twice daily (5) PAF (paroxysmal atrial fibrillation): Plan: Rate is controlled and no more bradycardia Continue chronic anticoagulation with Eliquis (6) Hypomagnesemia: (7) T2DM (type 2 diabetes mellitus): Admission and Anticipated Discharge Date Admission Date: August 04, 2024 Subjective 08/05/2024 Patient was seen and examined in medical telemetry unit She has been feeling much better but bowel has not moved since last Wednesday Feels discomfort in the abdomen without any pain, nausea and/or vomiting Her breathing seems to be stable 08/06/2024 Patient was seen and examined in medical telemetry unit She has had her bowel movement and has been feeling much better with decreasing back pain and abdominal discomfort Denies any other symptoms and has been saturating normally on room air Will get PT and OT prior to discharge tomorrow Review of Systems Review of Systems: All systems reviewed and are unremarkable except as noted below Physical Exam Physical Exam: Lying in bed without any acute distress Constitutional: + ill appearing and + thin Eyes: PERRL, conjunctivae normal, anicteric sclerae ENMT: external ear and nose normal, oropharynx normal Neck: trachea midline, no thyromegaly Respiratory: no respiratory distress Auscultation: + diminished lung sounds and + crackles (Minimal crackles at the bases) Cardiovascular: Rate/Rhythm: regular rate and regular rhythm; not tachycardic Heart Sounds: normal S1, normal S2 and + murmur Extremities: no edema Gastrointestinal (Abdomen): Inspection/Auscultation: + abdomen distended (Mildly distended) and normal bowel sounds Percussion/Palpation: abdomen soft; abdomen nontender Neurologic: normal touch/pain/proprioception and moves all extremities; no focal motor deficits Lymphatic: no cervical or axillary lymphadenopathy Results & Data Results & Data Vital Signs (Past 12 Hours) Vital Signs Temp Pulse Pulse Resp BP BP Pulse Ox 08/06/24 11:24 36.9 C 61 16 147/84 H 96 08/06/24 10:14 65 08/06/24 08:03 36.7 C 52 L 16 173/79 H 96 08/06/24 03:47 36.6 C 62 16 119/63 95 O2 Del Method 08/06/24 11:24 Room Air 08/06/24 10:14 08/06/24 08:03 Room Air 08/06/24 03:47 Room Air Laboratory Results [facility] 08/06/24 05:52 Sodium 141 Potassium 3.9 Chloride 104 Carbon Dioxide 32 BUN 16 Creatinine 0.71 Glucose 99 Calcium 9.2 Medications Administered Current Inpatient Medications Acetaminophen (Acetaminophen 325 Mg Tab) 650 mg PO QID PRN PRN Reason: pain/fever Stop: 09/03/24 04:49 Last Admin: 08/05/24 16:23 Dose: 650 mg Amlodipine Besylate (Amlodipine Besylate 5 Mg Tab) 10 mg PO QAM [facility] Stop: 09/03/24 11:29 Last Admin: 08/06/24 08:29 Dose: 10 mg Apixaban (Apixaban 5 Mg Tablet) 5 mg PO Q12 [facility] Stop: 09/03/24 08:59 Last Admin: 08/06/24 08:29 Dose: 5 mg Atorvastatin Calcium (Atorvastatin 20 Mg Tab) 20 mg PO HS [facility] Stop: 09/03/24 20:59 Last Admin: 08/05/24 21:33 Dose: 20 mg Bimatoprost (Bimatoprost 0.01% Op Soln 2.5 Ml Btl) 1 drops OPB HS [facility] Stop: 09/03/24 20:59 Last Admin: 08/05/24 21:31 Dose: 1 drops Cyanocobalamin (Cyanocobalamin (B-12) 500 Mcg Tablet) 1,000 mcg PO DAILY [facility] Stop: 09/03/24 08:59 Last Admin: 08/06/24 08:30 Dose: 1,000 mcg Dextrose (Dextrose 50% 50 Ml Syringe) 25 - 50 ml IV UD PRN; Protocol PRN Reason: Hypoglycemia Protocol Stop: 09/03/24 06:11 Fluticasone/Vilanterol (Fluticasone/Vilanterol 200/25mcg 14 Puffs/Inhaler) 1 puffs INH DAILY [facility]; Protocol Stop: 09/03/24 08:59 Last Admin: 08/06/24 08:30 Dose: 1 puffs Glucagon (Glucagon For Inj 1 Mg Vial) 1 mg SQ UD PRN; Protocol PRN Reason: Hypoglycemia Protocol Stop: 09/03/24 06:11 Glucose (Glucose 40% Gel 15 Gm Tube) 15 - 30 gm PO UD PRN; Protocol PRN Reason: Hypoglycemia Protocol Stop: 09/03/24 06:11 Glucose (Glucose 10 Tab/Tube) 4 - 8 tab PO UD PRN; Protocol PRN Reason: Hypoglycemia Treatment Stop: 09/03/24 06:11 Hydralazine HCl (Hydralazine Hcl 25 Mg Tab) 25 mg PO BID [facility] Stop: 09/04/24 20:59 Last Admin: 08/06/24 08:29 Dose: 25 mg Insulin Aspart (Insulin Aspart Per Unit Charge) 0 units SC ACHS [facility] Stop: 09/03/24 07:29 Last Admin: 08/06/24 10:21 Dose: Not Given Levothyroxine Sodium (Levothyroxine Sodium 100 Mcg Tablet) 100 mcg PO DAILYBB [facility] Stop: 09/03/24 06:29 Last Admin: 08/06/24 05:29 Dose: 100 mcg Losartan Potassium (Losartan Potassium 50 Mg Tab) 100 mg PO DAILY [facility] Stop: 09/04/24 08:59 Last Admin: 08/06/24 08:28 Dose: 100 mg Magnesium Oxide (Magnesium Oxide 400 Mg Tab) 400 mg PO BID [facility] Stop: 09/03/24 11:44 Last Admin: 08/06/24 08:29 Dose: 400 mg Metoclopramide HCl (Metoclopramide Hcl Inj 5 Mg/Ml 2 Ml Vial) 10 mg IV Q6H PRN PRN Reason: Nausea Stop: 09/03/24 11:24 Metoprolol Tartrate (Metoprolol Tartrate 25 Mg Tab) 12.5 mg PO BID [facility] Stop: 09/03/24 08:59 Last Admin: 08/06/24 08:27 Dose: 12.5 mg Miscellaneous (Order Awaiting Action: Anderson) 1 each N/A QS [facility] Stop: 09/03/24 07:59 Last Admin: 08/06/24 08:30 Dose: Not Given Miscellaneous (Carbohydrates For Hypoglycemia ) 15 - 30 gm PO UD PRN PRN Reason: Hypoglycemia Protocol Stop: 09/03/24 06:11 Montelukast Sodium (Montelukast Sodium 10 Mg Tablet) 10 mg PO HS [facility] Stop: 09/03/24 20:59 Last Admin: 08/05/24 21:32 Dose: 10 mg Multivitamins/Minerals (Cerovite Adv Formula Tab) 1 tab PO DAILY [facility] Stop: 09/03/24 08:59 Last Admin: 08/06/24 08:28 Dose: 1 tab Nitroglycerin (Nitroglycerin Sl 0.4 Mg/Tab Tab) 0.4 mg SL Q5M PRN PRN Reason: Chest Pain Stop: 09/03/24 06:11 Oxybutynin Chloride (Oxybutynin Chloride Xl 5 Mg Tabcr) 10 mg PO QAM [facility] Stop: 09/03/24 08:59 Last Admin: 08/06/24 08:28 Dose: 10 mg Oxycodone HCl (Oxycodone Hcl Ir 5 Mg Tab (Immediate Release)) 5 mg PO Q4H PRN PRN Reason: Pain Stop: 08/18/24 04:49 Pantoprazole Sodium (Pantoprazole 40 Mg Tab) 40 mg PO BID [facility] Stop: 09/03/24 08:59 Last Admin: 08/06/24 08:27 Dose: 40 mg Polyethylene Glycol (Polyethylene (Miralax) 17 Gm Pack) 17 gm PO DAILY [facility] Stop: 09/04/24 11:29 Last Admin: 08/06/24 08:28 Dose: 17 gm
[2024-08-07 06:28] LABS: Basophils # (auto) 0.02 K/uL (0.00-0.20); Basophils % (auto) 0.3 %; Eosinophils # (auto) 0.21 K/uL (0.00-0.50); Eosinophils % (auto) 3.6 %; Hematocrit (blood only) 34.7 % (37.0-47.0); Hemoglobin 11.8 g/dl (12.0-16.0); Immature Granulocytes # (auto) 0.02 K/uL (0.01-0.20); Immature Granulocytes % (auto) 0.3 %; Lymphocytes # (auto) 1.91 K/uL (1.20-3.40); Lymphocytes % (auto) 33.2 %; Mean Corpuscular Hemoglobin 31.1 pg (25.0-34.0); Mean Corpuscular Volume 91.3 fL (80.0-100.0); Mean Platelet Volume 11.4 fL (9.4-12.4); Monocytes # (auto) 0.62 K/uL (0.11-0.59); Monocytes % (auto) 10.8 %; Neutrophils # (auto) 2.98 K/uL (1.40-6.50); Neutrophils % (auto) 51.8 %; Platelet Count 208 K/uL (130-400); RDW Coefficient of Variation 14.1 % (11.5-14.5); RDW Standard Deviation 47.8 fL (36.4-46.3); White Blood Count 5.76 K/ul (4.8-10.8)
[2024-08-07 06:41] LABS: Creatinine Clr Calc Pharmacy 58.9 ml/min; Est GFR (African American) 96.9 ml/min; Est GFR (Non-African American) 83.6 ml/min; Potassium 3.6 mmol/L (3.5-5.1)
[2024-08-07 11:47] VITALS: TEMP 98.1
--- NOTE | 2024-08-07 13:27 | Hospitalist Progress Note ---
Date of Service August 07, 2024 Assessment & Plan (1) Vasovagal syncope: Plan: Suspect patient had a acute vasovagal syncopal event due to having just eaten supper and her hiatal hernia being distended with food causing a vagal response. No more syncope while in the hospital Denies any epigastric discomfort and lower abdominal pain Will get orthostatic vitals-did not show any orthostatic pulse and/or BP change or any symptoms Will get PT and OT evaluation prior to discharge tomorrow Has had OT evaluation and recommended home with home PT and OT Has constipation Bowel movement since Wednesday last Will try MiraLAX Bowel movement and she has been feeling a lot better Bowel has been moving (2) Acute hypoxemic respiratory failure: Plan: Noted to have hypoxia in the emergency room Has had chest pain with some shortness of breath during admission ACS has been ruled out Has history of DEMARIO on CPAP may be contributing No more problem with breathing and has been saturating normally on room air No more respiratory symptoms Will get to 2 steps O2 saturation prior to discharge this afternoon (3) Hiatal hernia with GERD: (4) Drug-induced sinus bradycardia: Plan: Patient also noted to be bradycardic here in the hospital but yet hypertensive. Suspect bradycardia is medication induced due to nifedipine and metoprolol. Discontinue nifedipine, continue metoprolol, Norvasc for hypertension control, may need additional adjustments Blood pressure remains on the upper side at 150/75 Heart rate at 62/min-nifedipine has been discontinued for bradycardia Blood pressure is controlled with the addition of hydralazine 25 mg twice daily (5) PAF (paroxysmal atrial fibrillation): Plan: Rate is controlled and no more bradycardia Continue chronic anticoagulation with Eliquis (6) Hypomagnesemia: (7) T2DM (type 2 diabetes mellitus): Admission and Anticipated Discharge Date Admission Date: August 04, 2024 Subjective 08/05/2024 Patient was seen and examined in medical telemetry unit She has been feeling much better but bowel has not moved since last Wednesday Feels discomfort in the abdomen without any pain, nausea and/or vomiting Her breathing seems to be stable 08/06/2024 Patient was seen and examined in medical telemetry unit She has had her bowel movement and has been feeling much better with decreasing back pain and abdominal discomfort Denies any other symptoms and has been saturating normally on room air Will get PT and OT prior to discharge tomorrow 08/07/2024 The patient was seen and examined in medical telemetry unit She has been feeling much better and denies any shortness of breath at rest Has had OT evaluation and recommended home with ongoing OT and PT She will have 2 steps O2 saturation test prior to discharge today Review of Systems Review of Systems: All systems reviewed and are unremarkable except as noted below Physical Exam Physical Exam: Lying in bed without any acute distress Constitutional: + ill appearing and + thin Eyes: PERRL, conjunctivae normal, anicteric sclerae ENMT: external ear and nose normal, oropharynx normal Neck: trachea midline, no thyromegaly Respiratory: no respiratory distress Auscultation: + diminished lung sounds and + crackles (Minimal crackles at the bases) Cardiovascular: Rate/Rhythm: regular rate and regular rhythm; not tachycardic Heart Sounds: normal S1, normal S2 and + murmur Extremities: no edema Gastrointestinal (Abdomen): Inspection/Auscultation: + abdomen distended (Mildly distended) and normal bowel sounds Percussion/Palpation: abdomen soft; abdomen nontender Neurologic: normal touch/pain/proprioception and moves all extremities; no focal motor deficits Lymphatic: no cervical or axillary lymphadenopathy Results & Data Results & Data Vital Signs (Past 12 Hours) Vital Signs Temp Pulse Pulse Resp BP Pulse Ox O2 Del Method 08/07/24 11:46 36.7 C 61 18 132/74 95 Room Air 08/07/24 11:19 Room Air 08/07/24 07:50 36.5 C 62 18 186/76 H 95 Room Air 08/07/24 07:25 66 08/07/24 03:09 36.5 C 53 L 16 151/77 H 94 Room Air Laboratory Results Short CBC 08/07/24 Range/Units 06:04 WBC 5.76 (4.8-10.8) K/ul Hgb 11.8 L (12.0-16.0) g/dl Hct 34.7 L (37.0-47.0) % Plt Count 208 (130-400) K/uL BMP 08/07/24 06:04 Sodium 141 Potassium 3.6 Chloride 106 Carbon Dioxide 29 BUN 13 Creatinine 0.59 L Glucose 102 H Calcium 9.0 Medications Administered Current Inpatient Medications Acetaminophen (Acetaminophen 325 Mg Tab) 650 mg PO QID PRN PRN Reason: pain/fever Stop: 09/03/24 04:49 Last Admin: 08/07/24 12:19 Dose: 650 mg Amlodipine Besylate (Amlodipine Besylate 5 Mg Tab) 10 mg PO QAM [facility] Stop: 09/03/24 11:29 Last Admin: 08/07/24 09:06 Dose: 10 mg Apixaban (Apixaban 5 Mg Tablet) 5 mg PO Q12 [facility] Stop: 09/03/24 08:59 Last Admin: 08/07/24 09:05 Dose: 5 mg Atorvastatin Calcium (Atorvastatin 20 Mg Tab) 20 mg PO HS [facility] Stop: 09/03/24 20:59 Last Admin: 08/06/24 21:29 Dose: 20 mg Bimatoprost (Bimatoprost 0.01% Op Soln 2.5 Ml Btl) 1 drops OPB HS [facility] Stop: 09/03/24 20:59 Last Admin: 08/06/24 21:30 Dose: 1 drops Cyanocobalamin (Cyanocobalamin (B-12) 500 Mcg Tablet) 1,000 mcg PO DAILY [facility] Stop: 09/03/24 08:59 Last Admin: 08/07/24 09:06 Dose: 1,000 mcg Dextrose (Dextrose 50% 50 Ml Syringe) 25 - 50 ml IV UD PRN; Protocol PRN Reason: Hypoglycemia Protocol Stop: 09/03/24 06:11 Fluticasone/Vilanterol (Fluticasone/Vilanterol 200/25mcg 14 Puffs/Inhaler) 1 puffs INH DAILY ALYSA; Protocol Stop: 09/03/24 08:59 Last Admin: 08/07/24 09:06 Dose: 1 puffs Glucagon (Glucagon For Inj 1 Mg Vial) 1 mg SQ UD PRN; Protocol PRN Reason: Hypoglycemia Protocol Stop: 09/03/24 06:11 Glucose (Glucose 40% Gel 15 Gm Tube) 15 - 30 gm PO UD PRN; Protocol PRN Reason: Hypoglycemia Protocol Stop: 09/03/24 06:11 Glucose (Glucose 10 Tab/Tube) 4 - 8 tab PO UD PRN; Protocol PRN Reason: Hypoglycemia Treatment Stop: 09/03/24 06:11 Hydralazine HCl (Hydralazine Hcl 25 Mg Tab) 25 mg PO BID [facility] Stop: 09/04/24 20:59 Last Admin: 08/07/24 09:05 Dose: 25 mg Insulin Aspart (Insulin Aspart Per Unit Charge) 0 units SC ACHS [facility] Stop: 09/03/24 07:29 Last Admin: 08/07/24 13:04 Dose: 2 units Levothyroxine Sodium (Levothyroxine Sodium 100 Mcg Tablet) 100 mcg PO DAILYBB [facility] Stop: 09/03/24 06:29 Last Admin: 08/07/24 05:45 Dose: 100 mcg Losartan Potassium (Losartan Potassium 50 Mg Tab) 100 mg PO DAILY [facility] Stop: 09/04/24 08:59 Last Admin: 08/07/24 09:06 Dose: 100 mg Magnesium Oxide (Magnesium Oxide 400 Mg Tab) 400 mg PO BID [facility] Stop: 09/03/24 11:44 Last Admin: 08/07/24 09:05 Dose: 400 mg Metoclopramide HCl (Metoclopramide Hcl Inj 5 Mg/Ml 2 Ml Vial) 10 mg IV Q6H PRN PRN Reason: Nausea Stop: 09/03/24 11:24 Metoprolol Tartrate (Metoprolol Tartrate 25 Mg Tab) 12.5 mg PO BID [facility] Stop: 09/03/24 08:59 Last Admin: 08/07/24 09:05 Dose: 12.5 mg Miscellaneous (Order Awaiting Action: Anderson) 1 each N/A QS [facility] Stop: 09/03/24 07:59 Last Admin: 08/07/24 07:50 Dose: Not Given Miscellaneous (Carbohydrates For Hypoglycemia ) 15 - 30 gm PO UD PRN PRN Reason: Hypoglycemia Protocol Stop: 09/03/24 06:11 Montelukast Sodium (Montelukast Sodium 10 Mg Tablet) 10 mg PO HS [facility] Stop: 09/03/24 20:59 Last Admin: 08/06/24 21:27 Dose: 10 mg Multivitamins/Minerals (Cerovite Adv Formula Tab) 1 tab PO DAILY [facility] Stop: 09/03/24 08:59 Last Admin: 08/07/24 09:06 Dose: 1 tab Nitroglycerin (Nitroglycerin Sl 0.4 Mg/Tab Tab) 0.4 mg SL Q5M PRN PRN Reason: Chest Pain Stop: 09/03/24 06:11 Oxybutynin Chloride (Oxybutynin Chloride Xl 5 Mg Tabcr) 10 mg PO QAM [facility] Stop: 09/03/24 08:59 Last Admin: 08/07/24 09:06 Dose: 10 mg Oxycodone HCl (Oxycodone Hcl Ir 5 Mg Tab (Immediate Release)) 5 mg PO Q4H PRN PRN Reason: Pain Stop: 08/18/24 04:49 Pantoprazole Sodium (Pantoprazole 40 Mg Tab) 40 mg PO BID [facility] Stop: 09/03/24 08:59 Last Admin: 08/07/24 09:06 Dose: 40 mg Polyethylene Glycol (Polyethylene (Miralax) 17 Gm Pack) 17 gm PO DAILY [facility] Stop: 09/04/24 11:29 Last Admin: 08/07/24 09:07 Dose: Not Given
[2024-08-07 16:24] VITALS: BP 150/75; PULSE 62; RESP 18; O2SAT 95
--- NOTE | 2024-08-08 07:28 | Discharge Summary ---
Date of Service August 08, 2024 Admission HPI Per Admitting Provider History obtained from patient and records. Medical history significant for chronic diastolic heart failure (EF 65 to 70%, TTE 2023), CAD status post stent, PAF on Eliquis, CVA, hypertension, hyperlipidemia, DEMARIO on CPAP, DM2 on oral medications, hypothyroidism, chronic anemia (baseline hemoglobin of 11), GERD, hiatal hernia, mood disorder. Last confinement January 2024 for strokelike symptoms attributed to recrudescence secondary to UTI. Recent ER visit last month for fall. Patient not feeling well since yesterday. Achy epigastric pain going to the chest without SOB. Headache, nausea and vomiting. Witnessed syncopal event at home lasting for few moments. No witnessed seizures. SBP range 90-200s as per EMS documentation. Patient brought to ER for evaluation. Patient currently comfortable. Transient O2 sats of 80s documented at the ER. 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 Admission Exam Per Admitting Provider Physical Exam: GENERAL: wane, no respiratory distress SKIN: Pallor, warm HEENT: Pale palpebral conjunctivae, no ptosis, dry buccal mucosa NECK : Supple, no tenderness CHEST : Decreased breath sounds, no tenderness HEART : Bradycardic, no obvious murmurs ABDOMEN: Some distention, epigastric tenderness EXTREMITIES : Minimal LE swelling, no LE tenderness, no other conspicuous deformities noted NEUROLOGIC : Coherent, no facial asymmetry, no other gross focality Principal Diagnosis Syncope likely secondary to vasovagal, drug-induced bradycardia, paroxysmal atrial fibrillation, type 2 diabetes, hypoxia- resolved Discharge Exam Lying in bed without any acute distress Constitutional + ill appearing and + thin Eyes PERRL, conjunctivae normal, anicteric sclerae ENMT external ear and nose normal, oropharynx normal Neck trachea midline, no thyromegaly Respiratory no respiratory distress Auscultation: + diminished lung sounds and + crackles (Minimal crackles at the bases) Cardiovascular Rate/Rhythm: regular rate and regular rhythm; not tachycardic Heart Sounds: normal S1, normal S2 and + murmur Extremities: no edema Gastrointestinal (Abdomen) Inspection/Auscultation: + abdomen distended (Mildly distended) and normal bowel sounds Percussion/Palpation: abdomen soft; abdomen nontender Neurologic normal touch/pain/proprioception and moves all extremities; no focal motor deficits Lymphatic no cervical or axillary lymphadenopathy Discharge Data Allergies Allergy/AdvReac Type Severity Reaction Status Date / Time paroxetine Allergy Severe ANAPHYLAXIS Verified 02/08/24 13:35 mold Allergy Intermediate asthma Verified 02/08/24 13:35 symptoms pollen extracts Allergy Intermediate asthma Verified 02/08/24 13:35 symptoms Penicillins Allergy Mild Unknown Verified 02/08/24 13:35 vasquez AdvReac Intermediate gas and Verified 02/08/24 13:35 bloating with consuption of green or kidneys beans broccoli AdvReac Intermediate GAS Verified 02/08/24 13:35 crab AdvReac Intermediate diarrhea Verified 02/08/24 13:35 grapefruit AdvReac Intermediate BRONCHITIS Verified 02/08/24 13:35 orange AdvReac Intermediate BRONCHITIS Verified 02/08/24 13:35 peanut AdvReac Intermediate gas/bloatin Verified 02/08/24 13:35 g Consultations 08/04/24 03:57 ED Decision to Admit Stat Ordered Studies 08/03/24 22:37 CT angio chest PE protocol Stat CT head/brain wo con Stat Hospital Course (1) Vasovagal syncope: Suspect patient had a acute vasovagal syncopal event due to having just eaten supper and her hiatal hernia being distended with food causing a vagal response. No more syncope while in the hospital Denies any epigastric discomfort and lower abdominal pain Will get orthostatic vitals-did not show any orthostatic pulse and/or BP change or any symptoms Will get PT and OT evaluation prior to discharge tomorrow Has had OT evaluation and recommended home with home PT and OT Has constipation Bowel movement since Wednesday last Will try MiraLAX Bowel movement and she has been feeling a lot better Bowel has been moving (2) Acute hypoxemic respiratory failure: Noted to have hypoxia in the emergency room Has had chest pain with some shortness of breath during admission ACS has been ruled out Has history of DEMARIO on CPAP may be contributing No more problem with breathing and has been saturating normally on room air No more respiratory symptoms Will get to 2 steps O2 saturation prior to discharge this afternoon (3) Hiatal hernia with GERD: (4) Drug-induced sinus bradycardia: Patient also noted to be bradycardic here in the hospital but yet hypertensive. Suspect bradycardia is medication induced due to nifedipine and metoprolol. Discontinue nifedipine, continue metoprolol, Norvasc for hypertension control, may need additional adjustments Blood pressure remains on the upper side at 150/75 Heart rate at 62/min-nifedipine has been discontinued for bradycardia Blood pressure is controlled with the addition of hydralazine 25 mg twice daily (5) PAF (paroxysmal atrial fibrillation): Rate is controlled and no more bradycardia Continue chronic anticoagulation with Eliquis (6) Hypomagnesemia: (7) T2DM (type 2 diabetes mellitus): Total Time Total Time Spent Total Time Spent (In Minutes): 35 minutes Discharge Plan Discharge Items Patient Disposition: Home - Home Health Services Reason For Visit: RESP FAILURE Discharge Diagnosis: Syncope likely secondary to vasovagal, drug-induced bradycardia, paroxysmal atrial fibrillation, type 2 diabetes, hypoxia- resolved Condition on Discharge: Fair Activity: Resume your previous activity Non-emergency contact: Primary Care Provider Call non-emergency contact if: you have any medication questions and your symptoms worsen Follow-up/Referrals: Kumar Salinas MD [Primary Care Provider] - 08/10/24 11:40 am (Date & Time 08/10/2024 11:40 AM Provider Kumar Salinas MD Department Family Medicine [facility] [place] ) Diet: Carb Consistent or DM2 Diet Comment: Minced and moist Addtl Attending Provider Instructions: Please take precaution to avoid falls Continue PT and OT as an outpatient Take your medications as advised Your nifedipine has been discontinued and replaced with amlodipine 10 mg a day and hydralazine 25 mg twice daily Please keep appointments with the healthcare providers Pending Studies at Discharge: No Stand-Alone Forms: My [facility] RUNform, Smoking Cessation Medications and DC Order Prescriptions: New hydralazine 25 mg Tablet 25 mg PO BID Qty: 60 0RF amlodipine [Norvasc] 5 mg Tablet 10 mg PO QAM Qty: 60 0RF Continued atorvastatin 20 mg tablet 20 mg PO HS montelukast 10 mg tablet 10 mg PO HS metformin 850 mg tablet 850 mg PO BIDM dexlansoprazole [Dexilant] 60 mg capsule,biphase delayed releas 60 mg PO DAILYBB Lumigan 0.01 % Drops 1 drp OPB HS oxybutynin chloride 10 mg tablet extended release 24hr 10 mg PO QAM fluticasone propion-salmeterol [Wixela Inhub] 250-50 mcg/dose blister with device 1 inh INHALATION BID levothyroxine 100 mcg Tablet 100 mcg PO DAILYBB Eliquis 5 mg tablet 5 mg PO Q12 losartan 100 mg tablet 100 mg PO DAILY [id number] Tablet 1 tab PO DAILY metoprolol tartrate 25 mg tablet 12.5 mg PO BID sodium chloride 1,000 mg tablet,soluble 1,000 mg PO BID Rx Instructions: NOT FILLED SINCE 11/07/23 FOR 30 DAYS. UNSURE IF PT STILL TAKING. (DME) OneTouch Verio test strips Strip MISCELLANEOUS furosemide 20 mg tablet 20 mg PO 1XD ramelteon 8 mg tablet 8 mg PO HS (DME) lancets [OneTouch Delica Plus Lancet] 30 gauge misc MISCELLANEOUS cyanocobalamin (vitamin B-12) [Vitamin B-12] 1,000 mcg Tablet 1,000 mcg PO DAILY potassium chloride [Klor-Con M20] 20 mEq Tablet,Er Particles/Crystals 20 meq PO 1XD magnesium oxide 400 mg (241.3 mg magnesium) Tablet 400 mg PO DAILY ascorbic acid (vitamin C) [Vitamin C] 500 mg Tablet 500 mg PO DAILY zinc 50 mg Tablet 50 mg PO DAILY cholecalciferol (vitamin D3) [Vitamin D3] 25 mcg (1,000 unit) Capsule 25 mcg PO DAILY coenzyme Q10 [CoQ-10] 100 mg Capsule 100 mg PO DAILY Discontinued nifedipine 90 mg tablet extended release 24hr 90 mg PO DAILY Discharge Orders: Discharge Order (Routine); Ordered 08/07/24 Ordered By: Ciara Colbert Admission Data Admit Date/Time: 08/04/24 04:49 Attending Provider: Ciara Colbert Admit Provider: Panda Arreola Primary Care Provider: Kumar Salinas Other Providers: Panda Arreola; Jhonatan Nobles [facility]; Papo Bess Other Interventions: Discharge Summary Assessment (RN) Last Done: 08/07/24 16:23
== END 2024-08-07 18:17 | disposition home health service (06) | DRG 189 ==
LOC: ED 22:20 → SUATTDRO 08-04 04:49 → 2E 08-04 04:49 → 2N 08-04 14:00

== ENCOUNTER 2024-10-12 13:23 | Inpatient (IN) ==
--- NOTE | 2024-10-12 13:44 | Emergency Department Note ---
Impression & Plan Head injury, Fall, Cervical strain, acute ED Provider Note NAME: ERNIE WELLER AGE: 84 SEX: F : 1940 ARRIVES VIA: Ambulance INFORMANT: Patient, ED PROVIDER(S): Fred Pal DO CHIEF COMPLAINT: Fall HPI: The patient is an 84-year-old female who uses blood thinners who presented to the emergency department for an evaluation after a fall. The patient was made a injury alert prior to arrival. She fell last evening when she went to get out of bed. She thinks she got herself tangled in her sheets when she fell she struck both sides of her head 1 side was on the bedside table and the other side was on the railing for the bed. She has no loss of conscious. She does complain of a headache and nausea. She denies having any fever or chills. She denies having any chest pain or other injuries. She did not initiate come to the emergency department but she was evaluated by her visiting nurse today and was sent to the emergency department for further evaluation. ROS: See above HPI for pertinent positives & negatives. A total of 10 systems reviewed and were otherwise negative. PAST MEDICAL HISTORY: See Below PAST SURGICAL HISTORY: See Below FAMILY HISTORY: See Below SOCIAL HISTORY: See Below HOME MEDICATIONS: See Below ALLERGIES: See Below VITALS: See Below PHYSICAL EXAMINATION: GENERAL: Patient is awake alert in no acute distress patient is resting comfortably and showing no signs of anxiety EYES: The conjunctivae are clear. The pupils are round and reactive. EARS, NOSE, MOUTH AND THROAT: The nose is without any evidence of any deformity. NECK: There is no midline tenderness to palpation. There is bilateral occipital and upper cervical spine paravertebral musculature that is tender. Range of motion appears intact. RESPIRATORY: Normal respiratory effort is noted there is no evidence of wheezing rhonchi or rales CARDIOVASCULAR: Regular rate and rhythm noted there no murmurs rubs or gallops normal S1 normal S2. GASTROINTESTINAL: The abdomen is soft. Abdomen is nontender. BACK: No midline tenderness or or step-off noted range of motion in flexion extension as well as rotation no signs of muscle spasm noted MUSCULOSKELETAL/EXTREMITIES: There is no evidence of gross deformity full range of motion is noted in the hips and shoulders. SKIN: There is no obvious evidence of any rash. There are no petechiae, pallor or cyanosis noted. NEUROLOGIC: Patient is awake alert and oriented x3. Strength was symmetric. MEDICAL DECISION MAKING: The patient is an 84-year-old female who presented to the emergency department for an evaluation after a fall. The patient fell overnight but was evaluated by her visiting nurse and sent to the emergency department. She did strike her head. She does take blood thinners. She also had neck pain. I discussed the patient's laboratory and radiographic studies with her. Given her findings on CT of the brain I also discussed her condition with the neurosurgical group at [facility]. They do not feel there is any intervention would be required and recommended the patient could stay here with repeated CAT scan in 24 to 48 hours. The patient was agreeable to this plan. For this reason I discussed her condition with the on-call [facility] hospitalist. They have agreed to evaluate the patient in the emergency department for further management and disposition. Triage Nursing notes reviewed. Prior medical records reviewed Vital Signs: reviewed and remarkable for elevated blood pressure Differential diagnosis: Fracture, dislocation, contusion, intra-abdominal, pneumothorax, intrathoracic, intracranial, neurologic, compartment syndrome, rhabdomyolysis, as well as other pathologies. ER treatment provided: See below Diagnostics interpreted by me: ECG: EKG was obtained in the emergency department. My interpretation is sinus bradycardia at 52 bpm. There was no ectopy. There is no acute ST segment abnormalities noted. This was compared to a tracing from August 03, 2024. No changes were noted. Cardiac Monitoring: An order was placed for continuous cardiac monitoring. The monitor shows a rate of 54 bpm with sinus bradycardia. Laboratory studies: As stated above and show below. Imaging studies: See below. Radiographic imaging was reviewed by myself Consultation(s): I discussed this case with Dr. Shukla who is on for the emergency department at [facility]. I discussed this case with Dr. Connelly who is on-call for interventional neurology. He did recommend repeat CAT scan in 24 hours and no need to hold the patient's Eliquis. I discussed this case with Krista who is on for the [facility] hospitalist group. Past Med/Surg History Problem List Cervical strain, acute (Acute) Fall (Acute) Head injury (Acute) Drug-induced sinus bradycardia Hiatal hernia with GERD Vasovagal syncope Acute hypoxemic respiratory failure Hypomagnesemia (Acute) Vomiting (Acute) Chest pain (Acute) Syncope (Acute) Hypomagnesemia (Acute) Stroke-like symptoms (Acute) Nausea & vomiting (Acute) Arthralgia Embolic stroke Elevated troponin Near syncope Ambulatory dysfunction (Acute) Chronic pain in left foot (Acute) Hypomagnesemia (Acute) Generalized weakness (Acute) Osteoarthritis of ankle, left HTN (hypertension) Left ankle swelling (Acute) Hypomagnesemia (Acute) Syncope and collapse (Acute) Right rotator cuff tear Right knee DJD Hypokalemia CAD (coronary artery disease) (Chronic) stent in 1999 Anemia (Acute) Postoperative bleeding from mouth (Acute) Orthostatic syncope (Acute) Chronic anticoagulation (Acute) Near syncope DVT prophylaxis Postoperative bleeding from mouth History of rotator cuff surgery (Chronic) History of cataract extraction (Chronic) T2DM (type 2 diabetes mellitus) (Chronic) HTN (hypertension) (Chronic) HLD (hyperlipidemia) (Chronic) PAF (paroxysmal atrial fibrillation) (Chronic) DEMARIO (obstructive sleep apnea) (Chronic) Asthma (Chronic) CKD (chronic kidney disease) stage 3, GFR 30-59 ml/min (Chronic) Primary open angle glaucoma (Chronic) History of arthroscopic knee surgery (Chronic) History of tonsillectomy (Chronic) GERD (gastroesophageal reflux disease) (Chronic) History of appendectomy (Chronic) Hypothyroidism (Chronic) History of placement of stent in LAD coronary artery (Chronic) Sleep apnea (Chronic) Stented coronary artery (Chronic) Family History Father CHF (congestive heart failure) Mother Cancer Social History Smoking Status: Unknown if ever smoked Second Hand Exposure: No; Do You Dip or Chew Tobacco: No; Hx Alcohol Use: No Hx Substance Use: No Preferred Language: Faroese Communication Ability: Effective 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 Beliefs That Will Affect Care: Spiritism marital status: Life Partner Current Living Situation: Significant Other Current Living Situation Comment: s/o Feels Safe at Home: Yes Safety Concerns: Feels Safe At This Time Assistive Devices: Walker Allergies Allergies Allergy/AdvReac Type Severity Reaction Status Date / Time paroxetine Allergy Severe ANAPHYLAXIS Verified 02/08/24 13:35 mold Allergy Intermediate asthma Verified 02/08/24 13:35 symptoms pollen extracts Allergy Intermediate asthma Verified 02/08/24 13:35 symptoms Penicillins Allergy Mild Unknown Verified 02/08/24 13:35 vasquez AdvReac Intermediate gas and Verified 02/08/24 13:35 bloating with consuption of green or kidneys beans broccoli AdvReac Intermediate GAS Verified 02/08/24 13:35 crab AdvReac Intermediate diarrhea Verified 02/08/24 13:35 grapefruit AdvReac Intermediate BRONCHITIS Verified 02/08/24 13:35 orange AdvReac Intermediate BRONCHITIS Verified 02/08/24 13:35 peanut AdvReac Intermediate gas/bloatin Verified 02/08/24 13:35 g Home Meds Home Medications Medication Instructions Recorded Confirmed atorvastatin 20 mg tablet 20 mg PO HS 08/22/19 10/12/24 metformin 850 mg tablet 850 mg PO BIDM 08/22/19 10/12/24 montelukast 10 mg tablet 10 mg PO HS 08/22/19 10/12/24 bimatoprost 0.01 % eye drops 1 drp OPB HS 05/08/22 10/12/24 (Sumeet) fluticasone 250 mcg-salmeterol 50 1 inh inhalation BID 10/23/23 10/12/24 mcg/dose blistr powdr for inhalation (Paul Inhub) oxybutynin chloride 10 mg 10 mg PO QAM 10/23/23 10/12/24 tablet,extended release 24 hr levothyroxine 100 mcg tablet 100 mcg PO DAILYBB 12/02/23 10/12/24 apixaban 5 mg tablet (Eliquis) 5 mg PO Q12 12/23/23 10/12/24 losartan 100 mg tablet 100 mg PO DAILY 02/08/24 10/12/24 metoprolol tartrate 25 mg tablet 12.5 mg PO BID 02/08/24 10/12/24 [id number]-[id number]-[id number] tablet 1 tab PO DAILY 02/08/24 10/12/24 ascorbic acid (vitamin C) 500 mg 500 mg PO DAILY 08/04/24 10/12/24 tablet (Vitamin C) blood sugar diagnostic (OneTouch 08/04/24 08/04/24 Verio test strips) cholecalciferol (vitamin D3) 25 25 mcg PO DAILY 08/04/24 10/12/24 mcg (1,000 unit) capsule (Vitamin D3) coenzyme Q10 100 mg capsule 100 mg PO DAILY 08/04/24 10/12/24 (CoQ-10) cyanocobalamin (vitamin B-12) 1,000 mcg PO DAILY 08/04/24 10/12/24 1,000 mcg tablet (Vitamin B-12) furosemide 20 mg tablet 20 mg PO 1XD 08/04/24 10/12/24 lancets 30 gauge (OneTouch Delica 08/04/24 08/04/24 Plus Lancet) magnesium oxide 400 mg (241.3 mg 400 mg PO DAILY 08/04/24 10/12/24 magnesium) tablet potassium chloride 20 mEq 20 meq PO 1XD 08/04/24 10/12/24 tablet,extended release(part/cryst) (Klor-Con M) zinc 50 mg tablet 50 mg PO DAILY 08/04/24 10/12/24 Previous Rx's Medication Instructions Recorded amlodipine 5 mg tablet (Norvasc) 10 mg (2 x 5 mg) PO QAM #60 tabs 08/07/24 Results & Data (ED) Vital Signs Vital Signs - 24 hr 10/12/24 13:32 10/12/24 13:32 10/12/24 13:48 Temperature 36.7 C Temperature Source Oral Pulse Rate 51 L 52 L Pulse Rate [Right Brachial] Pulse Rate from SpO2 Sensor Pulse Rhythm [Right Brachial] Pulse Strength [Right Brachial] Respiratory Rate 20 Respiratory Effort / Characteristics Non-Labored Spontaneous Respiratory Depth Normal Respiratory Pattern Regular Blood Pressure 168/66 H Blood Pressure [Right Arm] Blood Pressure Mean 100 Blood Pressure Mean [Right Arm] Blood Pressure Position [Right Arm] Pulse Oximetry 98 98 Oxygen Delivery Method Room Air Room Air Sepsis Recent Fever Within 48 Hours No Sepsis New/Unexplained Change in Mental Status N/A Sepsis Action Taken by Nursing No Action Required 10/12/24 14:00 10/12/24 14:00 10/12/24 14:27 Temperature Temperature Source Pulse Rate 60 51 L Pulse Rate [Right Brachial] Pulse Rate from SpO2 Sensor 56 L 52 L Pulse Rhythm [Right Brachial] Pulse Strength [Right Brachial] Respiratory Rate 12 12 Respiratory Effort / Characteristics Respiratory Depth Respiratory Pattern Blood Pressure 148/79 H Blood Pressure [Right Arm] Blood Pressure Mean 101 Blood Pressure Mean [Right Arm] Blood Pressure Position [Right Arm] Pulse Oximetry 97 99 Oxygen Delivery Method Room Air Room Air Sepsis Recent Fever Within 48 Hours Sepsis New/Unexplained Change in Mental Status Sepsis Action Taken by Nursing 10/12/24 14:30 10/12/24 15:20 Temperature Temperature Source Pulse Rate Pulse Rate [Right Brachial] 58 L Pulse Rate from SpO2 Sensor Pulse Rhythm [Right Brachial] Regular Pulse Strength [Right Brachial] Normal Respiratory Rate 18 Respiratory Effort / Characteristics Non-Labored Respiratory Depth Normal Respiratory Pattern Blood Pressure 142/62 H Blood Pressure [Right Arm] 166/75 H Blood Pressure Mean 102 Blood Pressure Mean [Right Arm] 105 Blood Pressure Position [Right Arm] Lying Pulse Oximetry 98 Oxygen Delivery Method Room Air Sepsis Recent Fever Within 48 Hours Sepsis New/Unexplained Change in Mental Status Sepsis Action Taken by Long-Term Medications Current Medication List: was personally reviewed by me Laboratory Data Attestation: I reviewed the patient's lab results. 10/12/24 13:42 10/12/24 13:42 Lab Results 10/12/24 Range/Units 13:42 WBC 7.74 (4.8-10.8) K/ul RBC 4.11 L (4.20-5.40) M/uL Hgb 12.5 (12.0-16.0) g/dl Hct 37.8 (37.0-47.0) % MCV 92.0 (80.0-100.0) fL MCH 30.4 (25.0-34.0) pg MCHC 33.1 (32.0-36.0) g/dL RDW Std Deviation 48.6 H (36.4-46.3) fL RDW Coeff of Stoney 14.5 (11.5-14.5) % Plt Count 249 (130-400) K/uL MPV 11.9 (9.4-12.4) fL Immature Gran % (Auto) 0.3 % Neut % (Auto) 66.8 % Lymph % (Auto) 20.7 % Hidalgo % (Auto) 9.6 % Eos % (Auto) 2.2 % Baso % (Auto) 0.4 % Neut # (Auto) 5.18 (1.40-6.50) K/uL Lymph # (Auto) 1.60 (1.20-3.40) K/uL Hidalgo # (Auto) 0.74 H (0.11-0.59) K/uL Eos # (Auto) 0.17 (0.00-0.50) K/uL Baso # (Auto) 0.03 (0.00-0.20) K/uL Immature Gran # (Auto) 0.02 (0.01-0.20) K/uL PT 11.0 (9.0-12.0) Seconds INR 1.0 (0.9-1.1) APTT 30 (21-31) Seconds PTT Ratio 1.1 Sodium 139 (136-145) mmol/L Potassium 4.0 (3.5-5.1) mmol/L Chloride 105 (98-107) mmol/L Carbon Dioxide 27 (21-32) mmol/L Anion Gap 7 (3-11) BUN 13 (6-23) mg/dl Creatinine 0.68 (0.6-1.2) mg/dl Est Cr Clr Drug Dosing 52.1 ml/min eGFR 85.29 BUN/Creatinine Ratio 19.1 (10-20) Glucose 97 (70-99(Fasting)) mg/dl Calcium 10.0 (8.6-10.3) mg/dl Total Bilirubin 0.3 (0.2-1.0) mg/dl AST 13 (13-39) U/L ALT 12 (7-52) U/L Alkaline Phosphatase 50 (34-104) U/L Troponin I High Sens 5.8 (0-14) pg/ml Total Protein 6.3 (6.0-8.3) gm/dl Albumin 4.0 (3.4-5.0) gm/dl Globulin 2.3 L (2.5-4.0) gm/dl Albumin/Globulin Ratio 1.7 (0.9-2) Lipase 25 (11-82) U/L Administered Medications Discontinued Medications Hydralazine HCl (Hydralazine Hcl 20 Mg/Ml Vial) 5 mg IV NOW ONE Stop: 10/12/24 16:06 Last Admin: 10/12/24 16:35 Dose: 5 mg Documented By: MAYNOR Acetaminophen ([facility]) 1,000 mg in 100 mls @ 400 mls/hr IV NOW STA Stop: 10/12/24 13:46 Last Infusion: 10/12/24 14:30 Dose: Infused Documented By: Admin: 10/12/24 14:13 Dose: 400 mls/hr Documented By: DARLING Imaging Data Attestation: I personally reviewed and interpreted this imaging study as follows: My Impression: CT the brain was obtained in the emergency department. My interpretation is no intracranial hemorrhage that was acute, no mass effect, final report below. 1 view chest x-ray was obtained in the emergency department. My interpretation is no free air or definite infiltrate, final report below. Radiologist's Impression: Cervical Spine CT 10/12/24 13:32 CT OF THE CERVICAL SPINE WITHOUT CONTRAST CLINICAL HISTORY: fall COMPARISON STUDY: Cervical spine CT July 09, 2024. TECHNIQUE: Helical axial images of the cervical spine were obtained without IV contrast. Sagittal and coronal reconstructions were viewed. Automated exposure control was utilized for the study. A dose lowering technique was utilized adhering to the principles of ALARA. FINDINGS: Straightening of the cervical lordosis and mild anterolisthesis of C7 on T1 is unchanged. There is no cervical spine fracture. There is severe facet arthrosis as well as severe disc space narrowing at C6-7. Extensive degenerative changes at the C1-C2 articulation are noted. No prevertebral edema. IMPRESSION: No acute cervical spine fracture or subluxation. ACT 112: Negative or not required by law. Electronically signed by: Guillaume Borrego M.D. 10/12/2024 2:12 PM Chest X-Ray 10/12/24 13:32 XR chest 1V portable CLINICAL HISTORY: Chest pain, nonspecific COMPARISON STUDY: Chest radiograph and chest CT August 03, 2024. FINDINGS: There is no pneumothorax or pleural effusion. Moderate cardiomegaly with extensive mitral annular calcification. There is no evidence for pulmonary edema. There is no consolidation. A hiatal hernia is again noted. IMPRESSION: No acute cardiopulmonary findings. No change in appearance of the chest. ACT 112: Negative or not required by law. Electronically signed by: Guillaume Borrego M.D. 10/12/2024 2:[address] 10/12/24 13:32 CT head/brain wo con CLINICAL HISTORY: 84 years-old Female with fall. Acute head trauma status post fall TECHNIQUE: Multiple axial CT images of the head were obtained without contrast. A dose lowering technique was utilized adhering to the principles of ALARA. COMPARISON: 08/03/2024 FINDINGS: No acute intracranial hemorrhage, midline shift, intracranial mass, hydrocephalus, or acute territorial ischemia. There is prominence of the extra- axial space adjacent to the right cerebral hemisphere measuring up to approximately 4 mm, image 20 series 2 with CSF attenuation. Calcifications of the falx cerebri. Involutional changes with chronic microvascular ischemic disease. The calvarium is intact. The paranasal sinuses, mastoid air cells, and middle ear cavities are clear. IMPRESSION: 1. No acute intracranial hemorrhage, midline shift or hydrocephalus. 2. Asymmetric prominence of the extra-axial space adjacent to the right cerebrum with CSF density measuring up to 4 mm, new from 08/03/2024. Findings are suggestive of a chronic subdural hematoma versus hygroma. 3. Involutional changes with chronic microvascular ischemic disease. ACT 112: Negative or not required by law. The above report was generated using voice recognition software. It may contain grammatical, syntax or spelling errors. Electronically signed by: Talib Morales M.D. 10/12/2024 2:12 PM Discharge Plan Visit Data Chief Complaint: Fall Stated Complaint: FALL ED Provider: Fred Pal Discharge Problem: Head injury, Fall, Cervical strain, acute Patient Disposition: Being Evaluated by Hospitalist Discharge Instructions Interventions: ED Discharge Assessment Last Done: 10/12/24 18:11 Discharge Problem: Head injury Qualifiers: Encounter type: initial encounter Qualified Code(s): S09.90XA - Unspecified injury of head, initial encounter Fall Qualifiers: Encounter type: initial encounter Qualified Code(s): W19.XXXA - Unspecified fall, initial encounter Cervical strain, acute Qualifiers: Encounter type: initial encounter Qualified Code(s): S16.1XXA - Strain of muscle, fascia and tendon at neck level, initial encounter
[2024-10-12 14:00] LABS: Basophils # (auto) 0.03 K/uL (0.00-0.20); Basophils % (auto) 0.4 %; Eosinophils # (auto) 0.17 K/uL (0.00-0.50); Eosinophils % (auto) 2.2 %; Hematocrit (blood only) 37.8 % (37.0-47.0); Hemoglobin 12.5 g/dl (12.0-16.0); Immature Granulocytes # (auto) 0.02 K/uL (0.01-0.20); Immature Granulocytes % (auto) 0.3 %; Lymphocytes % (auto) 20.7 %; Mean Corpuscular Hemoglobin 30.4 pg (25.0-34.0); Mean Corpuscular Hgb Conc 33.1 g/dL (32.0-36.0); Mean Platelet Volume 11.9 fL (9.4-12.4); Monocytes # (auto) 0.74 K/uL (0.11-0.59); Monocytes % (auto) 9.6 %; Neutrophils # (auto) 5.18 K/uL (1.40-6.50); Neutrophils % (auto) 66.8 %; Platelet Count 249 K/uL (130-400); RDW Coefficient of Variation 14.5 % (11.5-14.5); RDW Standard Deviation 48.6 fL (36.4-46.3); Red Blood Count 4.11 M/uL (4.20-5.40); White Blood Count 7.74 K/ul (4.8-10.8)
--- NOTE | 2024-10-12 14:10 | XRay Report ---
XR chest 1V portable CLINICAL HISTORY: Chest pain, nonspecific COMPARISON STUDY: Chest radiograph and chest CT August 03, 2024. FINDINGS: There is no pneumothorax or pleural effusion. Moderate cardiomegaly with extensive mitral a nnular calcification. There is no evidence for pulmonary edema. There is no consolidation. A hiatal h ernia is again noted. IMPRESSION: No acute cardiopulmonary findings. No change in appearance of the chest. ACT 112: Negative or not required by law. Electronically signed by: Guillaume Borrego M.D. 10/12/2024 2:09 PM
[2024-10-12] MEDS: ACETAMINOPHEN 1,000 MG/100 ML VIAL IV STA (14:13)
--- NOTE | 2024-10-12 14:14 | CT Scan Report ---
CT OF THE CERVICAL SPINE WITHOUT CONTRAST CLINICAL HISTORY: fall COMPARISON STUDY: Cervical spine CT July 09, 2024. TECHNIQUE: Helical axial images of the cervical spine were obtained without IV contrast. Sagittal a nd coronal reconstructions were viewed. Automated exposure control was utilized for the study. A do se lowering technique was utilized adhering to the principles of ALARA. FINDINGS: Straightening of the cervical lordosis and mild anterolisthesis of C7 on T1 is unchanged. T here is no cervical spine fracture. There is severe facet arthrosis as well as severe disc space narr owing at C6-7. Extensive degenerative changes at the C1-C2 articulation are noted. No prevertebral ed vinay. IMPRESSION: No acute cervical spine fracture or subluxation. ACT 112: Negative or not required by law. Electronically signed by: Guillaume Borrego M.D. 10/12/2024 2:12 PM
--- NOTE | 2024-10-12 14:14 | CT Scan Report ---
CT head/brain wo con CLINICAL HISTORY: 84 years-old Female with fall. Acute head trauma status post fall TECHNIQUE: Multiple axial CT images of the head were obtained without contrast. A dose lowering tech nique was utilized adhering to the principles of ALARA. COMPARISON: 08/03/2024 FINDINGS: No acute intracranial hemorrhage, midline shift, intracranial mass, hydrocephalus, or acute territori al ischemia. There is prominence of the extra-axial space adjacent to the right cerebral hemisphere m easuring up to approximately 4 mm, image 20 series 2 with CSF attenuation. Calcifications of the falx cerebri. Involutional changes with chronic microvascular ischemic disease. The calvarium is intact. The paranasal sinuses, mastoid air cells, and middle ear cavities are clear . IMPRESSION: 1. No acute intracranial hemorrhage, midline shift or hydrocephalus. 2. Asymmetric prominence of the extra-axial space adjacent to the right cerebrum with CSF density nereida suring up to 4 mm, new from 08/03/2024. Findings are suggestive of a chronic subdural hematoma versus h ygroma. 3. Involutional changes with chronic microvascular ischemic disease. ACT 112: Negative or not required by law. The above report was generated using voice recognition software. It may contain grammatical, syntax o r spelling errors. Electronically signed by: Talib Morales M.D. 10/12/2024 2:12 PM
[2024-10-12 14:16] LABS: Albumin Globulin Ratio 1.7 (0.9-2); BUN Creatinine Ratio 19.1 (10-20); Bilirubin,Total 0.3 mg/dl (0.2-1.0); Creatinine Clr Calc Pharmacy 52.1 ml/min; Globulin 2.3 gm/dl (2.5-4.0); Total Protein 6.3 gm/dl (6.0-8.3)
[2024-10-12 14:19] LABS: Troponin I High Sensitivity 5.8 pg/ml (0-14)
[2024-10-12 14:24] LABS: Partial Thromboplastin Ratio 1.1; Partial Thromboplastin Time 30 Seconds (21-31)
[2024-10-12] MEDS: hydrALAZINE HCL 20 MG/ML VIAL IV ONE (16:35)
--- NOTE | 2024-10-12 16:54 | Communication Note ---
Date of Service: October 12, 2024 84-year-old lady with PMH of chronic diastolic heart failure [EF of 65 to 70%, TTE 2023], CAD status post stent, PAF on Eliquis, CVA, HTN, HLD, DEMARIO on CPAP, DM2 on oral medications, hypothyroidism, chronic anemia [baseline hemoglobin of 11], GERD, hiatal hernia, mood disorder presented to the ED after fall. She woke up around 3 AM last night to go to the bathroom, got tangled in the bedsheet and fell and hit her head on the rails of the bed on 1 side and got hit with a bookcase on the other side of the head, got herself de-tangled slowly and went to sat in the recliner. She denies loss of consciousness. Denies any fever/sore throat/cough/chest pain/palpitation/nausea/vomiting. Patient states that when she was evaluated by her visiting nurse today, the nurse insisted that she go to the emergency department to get a CT scan of the head. Labs and imagings reviewed: Labs fairly WNL, renal and liver function WNL, troponin WNL. C-spine CT and CXR with no acute finding. CT head with Asymmetric prominence of the extra-axial space adjacent to the right cerebrum with CSF density measuring up to 4 mm, new from 08/03/2024. Fin dings are suggestive of a chronic subdural hematoma versus hygroma. Concern for chronic subdural hematoma versus hygroma: ER physician spoke with interventional neurology who recommends repeat CT scan in 24 hours per ED physician. Will hold Eliquis. Monitor labs and CT scan. Low threshold for repeat CT scan with any changes in mentation or headache. On exam: GENERAL: Alert and oriented x3. NAD, on RA. HEENT: No pallor, no icterus. Pupils equal, round and reactive to light. Oral mucosa moist. No obvious hematoma or laceration noted on external head exam. NECK: No JVD, no neck masses. HEART: S1 and S2 heard. Regular rate and rhythm. No murmur, no gallop. RESPIRATORY SYSTEM: Normal AP diameter. No accessory muscle use. No wheezing, no crackles. ABDOMEN: Soft, bowel sounds present, nontender, no distention. CENTRAL NERVOUS SYSTEM: No facial droop. Speech is clear. Obeys simple commands. Moves extremities. b/l strength symmetrical on exam. EXTREMITIES: 1+ble edema, no erythema seen. I have seen and examined the patient and have discussed the case with the provider above. I agree with the assessment and plan as stated. Time spent: 30 min
--- NOTE | 2024-10-12 17:09 | History & Physical Report ---
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 No neurodeficits, continue to monitor Hx AF/HTN/HLD/chronic diastolic CHF: Continue metoprolol, hold Eliquis, continue amlodipine/losartan/Lasix/statin Hx hypothyroidism: Continue Synthroid Hx DM2: Hold metformin, last A1c 5.3, check A1c in a.m., sugar within normal limits Hx asthma: Continue home inhaler/montelukast A total of 60 minutes was spent on chart review/facilitating plan of care/reviewing diagnostic data/discussion with consultants Full code DVT prophylaxis: A[place]rea[place]ison karine History of Present Illness Chief Complaint: Mechanical fall Primary Care Provider: Lilo Marquez DO The patient is an 84-year-old woman with past medical history of chronic diastolic CHF, PAF on Eliquis, CVA, CAD s/p stent, HLD, HTN, DEMARIO on CPAP, previous [id number] A1c 5.3, hypothyroidism who presents to the ED on 10/12/2024 after mechanical fall. Patient said she woke up around 3 AM last night and attempted to go to the bathroom. She reports getting tangled in the bedsheet and fell and hit the back of her head on the rails of the bed. Reports getting herself de tangled and got herself up and went to sit in the living room. The patient denies passing out. She reports coming to the ER toDay with concerns of posterior head pain and neck pain from the fall. She was seen by visiting nurse today who encouraged her to go to the ER. She otherwise denies any fever/chills/chest pain/shortness of breath/palpitations/nausea/vomiting/diarrhea. She denies any abdominal pain. She is awake alert and oriented on exam and has no neurodeficits. On arrival to the ED, labs are fairly unremarkable, troponin negative Chest x-ray and cervical spine CT were negative for any acute findings CT of the head showed asymmetric prominence of the extra-axial space adjacent to the right cerebrum with CSF density measuring up to 4 mm. This is a new finding from 08/03/2024. Findings suggestive of chronic subdural hematoma versus hygroma. The ER physician spoke to the interventional radiologist on-call they recommended repeat CT scan in 24 hours The patient will be admitted for further monitoring Allergies Allergy/AdvReac Type Severity Reaction Status Date / Time paroxetine Allergy Severe ANAPHYLAXIS Verified 02/08/24 13:35 mold Allergy Intermediate asthma Verified 02/08/24 13:35 symptoms pollen extracts Allergy Intermediate asthma Verified 02/08/24 13:35 symptoms Penicillins Allergy Mild Unknown Verified 02/08/24 13:35 vasquez AdvReac Intermediate gas and Verified 02/08/24 13:35 bloating with consuption of green or kidneys beans broccoli AdvReac Intermediate GAS Verified 02/08/24 13:35 crab AdvReac Intermediate diarrhea Verified 02/08/24 13:35 grapefruit AdvReac Intermediate BRONCHITIS Verified 02/08/24 13:35 orange AdvReac Intermediate BRONCHITIS Verified 02/08/24 13:35 peanut AdvReac Intermediate gas/bloatin Verified 02/08/24 13:35 g Home Medications Medication Instructions Recorded Confirmed Type atorvastatin 20 mg tablet 20 mg PO HS 08/22/19 10/12/24 History metformin 850 mg tablet 850 mg PO BIDM 08/22/19 10/12/24 History montelukast 10 mg tablet 10 mg PO HS 08/22/19 10/12/24 History bimatoprost 0.01 % eye drops 1 drp OPB HS 05/08/22 10/12/24 History (Lumigan) fluticasone 250 mcg-salmeterol 50 1 inh inhalation BID 10/23/23 10/12/24 History mcg/dose blistr powdr for inhalation (Wixela Inhub) oxybutynin chloride 10 mg 10 mg PO QAM 10/23/23 10/12/24 History tablet,extended release 24 hr levothyroxine 100 mcg tablet 100 mcg PO DAILYBB 12/02/23 10/12/24 History apixaban 5 mg tablet (Eliquis) 5 mg PO Q12 12/23/23 10/12/24 History losartan 100 mg tablet 100 mg PO DAILY 02/08/24 10/12/24 History metoprolol tartrate 25 mg tablet 12.5 mg PO BID 02/08/24 10/12/24 History qwvepazilqbj-yoixpuym-onaxtq tablet 1 tab PO DAILY 02/08/24 10/12/24 History ascorbic acid (vitamin C) 500 mg 500 mg PO DAILY 08/04/24 10/12/24 History tablet (Vitamin C) blood sugar diagnostic (OneTouch 08/04/24 08/04/24 History Verio test strips) cholecalciferol (vitamin D3) 25 25 mcg PO DAILY 08/04/24 10/12/24 History mcg (1,000 unit) capsule (Vitamin D3) coenzyme Q10 100 mg capsule 100 mg PO DAILY 08/04/24 10/12/24 History (CoQ-10) cyanocobalamin (vitamin B-12) 1,000 mcg PO DAILY 08/04/24 10/12/24 History 1,000 mcg tablet (Vitamin B-12) furosemide 20 mg tablet 20 mg PO 1XD 08/04/24 10/12/24 History lancets 30 gauge (OneTouch Delica 08/04/24 08/04/24 History Plus Lancet) magnesium oxide 400 mg (241.3 mg 400 mg PO DAILY 08/04/24 10/12/24 History magnesium) tablet potassium chloride 20 mEq 20 meq PO 1XD 08/04/24 10/12/24 History tablet,extended release(part/cryst) (Klor-Con M) zinc 50 mg tablet 50 mg PO DAILY 08/04/24 10/12/24 History amlodipine 5 mg tablet (Norvasc) 10 mg (2 x 5 mg) PO QAM #60 tabs 08/07/24 10/12/24 Rx Past Med/Surg History Problem List Drug-induced sinus bradycardia Hiatal hernia with GERD Vasovagal syncope Acute hypoxemic respiratory failure Hypomagnesemia (Acute) Vomiting (Acute) Chest pain (Acute) Syncope (Acute) Hypomagnesemia (Acute) Stroke-like symptoms (Acute) Nausea & vomiting (Acute) Arthralgia Embolic stroke Elevated troponin Near syncope Ambulatory dysfunction (Acute) Chronic pain in left foot (Acute) Hypomagnesemia (Acute) Generalized weakness (Acute) Osteoarthritis of ankle, left HTN (hypertension) Left ankle swelling (Acute) Hypomagnesemia (Acute) Syncope and collapse (Acute) Right rotator cuff tear Right knee DJD Hypokalemia CAD (coronary artery disease) (Chronic) stent in 1999 Anemia (Acute) Postoperative bleeding from mouth (Acute) Orthostatic syncope (Acute) Chronic anticoagulation (Acute) Near syncope DVT prophylaxis Postoperative bleeding from mouth History of rotator cuff surgery (Chronic) History of cataract extraction (Chronic) T2DM (type 2 diabetes mellitus) (Chronic) HTN (hypertension) (Chronic) HLD (hyperlipidemia) (Chronic) PAF (paroxysmal atrial fibrillation) (Chronic) DEMARIO (obstructive sleep apnea) (Chronic) Asthma (Chronic) CKD (chronic kidney disease) stage 3, GFR 30-59 ml/min (Chronic) Primary open angle glaucoma (Chronic) History of arthroscopic knee surgery (Chronic) History of tonsillectomy (Chronic) GERD (gastroesophageal reflux disease) (Chronic) History of appendectomy (Chronic) Hypothyroidism (Chronic) History of placement of stent in LAD coronary artery (Chronic) Sleep apnea (Chronic) Stented coronary artery (Chronic) Family History Father CHF (congestive heart failure) Mother Cancer Social History Smoking Status: Unknown if ever smoked Second Hand Exposure: No; Do You Dip or Chew Tobacco: No; Hx Alcohol Use: No Hx Substance Use: No Preferred Language: Japanese Communication Ability: Effective [employer] Consultant Required: No Beliefs That Will Affect Care: Episcopal marital status: Life Partner Current Living Situation: Significant Other Current Living Situation Comment: s/o Feels Safe at Home: Yes Assistive Devices: Walker Review of Systems Review of Systems: All systems reviewed & are unremarkable except as noted in HPI & below Physical Exam Constitutional: WD/WN, vitals as above Eyes: PERRL, conjunctivae normal, anicteric sclerae ENMT: external ear and nose normal, oropharynx normal Neck: trachea midline, no thyromegaly Respiratory: normal respiratory effort, lungs clear to auscultation Cardiovascular: RRR, no murmur, no edema Chest (Breasts): normal inspection/palpation of breasts Musculoskeletal: no cyanosis or clubbing, extremities motor strength 5/5 Skin: no rashes, warm and dry Neurologic: PERRL, EOMI, accommodation nl, no face palsy, no dysarthria Lymphatic: no cervical or axillary lymphadenopathy Results & Data Results & Data Vital Signs (Past 12 Hours) Vital Signs Temp Pulse Pulse Resp BP BP Pulse Ox 10/12/24 15:20 58 L 18 166/75 H 98 10/12/24 14:30 142/62 H 10/12/24 14:27 51 L 12 99 10/12/24 14:00 148/79 H 10/12/24 14:00 60 12 97 10/12/24 13:48 52 L 10/12/24 13:32 98 10/12/24 13:32 36.7 C 51 L 20 168/66 H 98 O2 Del Method 10/12/24 15:20 Room Air 10/12/24 14:30 10/12/24 14:27 Room Air 10/12/24 14:00 10/12/24 14:00 Room Air 10/12/24 13:48 10/12/24 13:32 Room Air 10/12/24 13:32 Room Air Diagnostic Findings Laboratory Results WBC 7.74 K/ul (4.8-10.8) 10/12/24 13:42 RBC 4.11 M/uL (4.20-5.40) L 10/12/24 13:42 Hgb 12.5 g/dl (12.0-16.0) 10/12/24 13:42 Hct 37.8 % (37.0-47.0) 10/12/24 13:42 MCV 92.0 fL (80.0-100.0) 10/12/24 13:42 MCH 30.4 pg (25.0-34.0) 10/12/24 13:42 MCHC 33.1 g/dL (32.0-36.0) 10/12/24 13:42 RDW Std Deviation 48.6 fL (36.4-46.3) H 10/12/24 13:42 RDW Coeff of Stoney 14.5 % (11.5-14.5) 10/12/24 13:42 Plt Count 249 K/uL (130-400) 10/12/24 13:42 MPV 11.9 fL (9.4-12.4) 10/12/24 13:42 Immature Gran % (Auto) 0.3 % 10/12/24 13:42 Neut % (Auto) 66.8 % 10/12/24 13:42 Lymph % (Auto) 20.7 % 10/12/24 13:42 Louisa % (Auto) 9.6 % 10/12/24 13:42 Eos % (Auto) 2.2 % 10/12/24 13:42 Baso % (Auto) 0.4 % 10/12/24 13:42 Neut # (Auto) 5.18 K/uL (1.40-6.50) 10/12/24 13:42 Lymph # (Auto) 1.60 K/uL (1.20-3.40) 10/12/24 13:42 Louisa # (Auto) 0.74 K/uL (0.11-0.59) H 10/12/24 13:42 Eos # (Auto) 0.17 K/uL (0.00-0.50) 10/12/24 13:42 Baso # (Auto) 0.03 K/uL (0.00-0.20) 10/12/24 13:42 Immature Gran # (Auto) 0.02 K/uL (0.01-0.20) 10/12/24 13:42 PT 11.0 Seconds (9.0-12.0) 10/12/24 13:42 INR 1.0 (0.9-1.1) 10/12/24 13:42 APTT 30 Seconds (21-31) 10/12/24 13:42 PTT Ratio 1.1 10/12/24 13:42 Sodium 139 mmol/L (136-145) 10/12/24 13:42 Potassium 4.0 mmol/L (3.5-5.1) 10/12/24 13:42 Chloride 105 mmol/L (98-107) 10/12/24 13:42 Carbon Dioxide 27 mmol/L (21-32) 10/12/24 13:42 Anion Gap 7 (3-11) 10/12/24 13:42 BUN 13 mg/dl (6-23) 10/12/24 13:42 Creatinine 0.68 mg/dl (0.6-1.2) 10/12/24 13:42 Est Cr Clr Drug Dosing 52.1 ml/min 10/12/24 13:42 eGFR 85.29 10/12/24 13:42 BUN/Creatinine Ratio 19.1 (10-20) 10/12/24 13:42 Glucose 97 mg/dl (70-99(Fasting)) 10/12/24 13:42 Calcium 10.0 mg/dl (8.6-10.3) 10/12/24 13:42 Total Bilirubin 0.3 mg/dl (0.2-1.0) 10/12/24 13:42 AST 13 U/L (13-39) 10/12/24 13:42 ALT 12 U/L (7-52) 10/12/24 13:42 Alkaline Phosphatase 50 U/L (34-104) 10/12/24 13:42 Troponin I High Sens 5.8 pg/ml (0-14) 10/12/24 13:42 Total Protein 6.3 gm/dl (6.0-8.3) 10/12/24 13:42 Albumin 4.0 gm/dl (3.4-5.0) 10/12/24 13:42 Globulin 2.3 gm/dl (2.5-4.0) L 10/12/24 13:42 Albumin/Globulin Ratio 1.7 (0.9-2) 10/12/24 13:42 Lipase 25 U/L (11-82) 10/12/24 13:[address] 10/12/24 13:32 CT OF THE CERVICAL SPINE WITHOUT CONTRAST CLINICAL HISTORY: fall COMPARISON STUDY: Cervical spine CT July 09, 2024. TECHNIQUE: Helical axial images of the cervical spine were obtained without IV contrast. Sagittal and coronal reconstructions were viewed. Automated exposure control was utilized for the study. A dose lowering technique was utilized adhering to the principles of ALARA. FINDINGS: Straightening of the cervical lordosis and mild anterolisthesis of C7 on T1 is unchanged. There is no cervical spine fracture. There is severe facet arthrosis as well as severe disc space narrowing at C6-7. Extensive degenerative changes at the C1-C2 articulation are noted. No prevertebral edema. IMPRESSION: No acute cervical spine fracture or subluxation. ACT 112: Negative or not required by law. Electronically signed by: Guillaume Borrego M.D. 10/12/2024 2:12 PM Chest X-Ray 10/12/24 13:32 XR chest 1V portable CLINICAL HISTORY: Chest pain, nonspecific COMPARISON STUDY: Chest radiograph and chest CT August 03, 2024. FINDINGS: There is no pneumothorax or pleural effusion. Moderate cardiomegaly with extensive mitral annular calcification. There is no evidence for pulmonary edema. There is no consolidation. A hiatal hernia is again noted. IMPRESSION: No acute cardiopulmonary findings. No change in appearance of the chest. ACT 112: Negative or not required by law. Electronically signed by: Guillaume Borrego M.D. 10/12/2024 2:[address] 10/12/24 13:32 CT head/brain wo con CLINICAL HISTORY: 84 years-old Female with fall. Acute head trauma status post fall TECHNIQUE: Multiple axial CT images of the head were obtained without contrast. A dose lowering technique was utilized adhering to the principles of ALARA. COMPARISON: 08/03/2024 FINDINGS: No acute intracranial hemorrhage, midline shift, intracranial mass, hydrocephalus, or acute territorial ischemia. There is prominence of the extra- axial space adjacent to the right cerebral hemisphere measuring up to approximately 4 mm, image 20 series 2 with CSF attenuation. Calcifications of the falx cerebri. Involutional changes with chronic microvascular ischemic disease. The calvarium is intact. The paranasal sinuses, mastoid air cells, and middle ear cavities are clear. IMPRESSION: 1. No acute intracranial hemorrhage, midline shift or hydrocephalus. 2. Asymmetric prominence of the extra-axial space adjacent to the right cerebrum with CSF density measuring up to 4 mm, new from 08/03/2024. Findings are suggestive of a chronic subdural hematoma versus hygroma. 3. Involutional changes with chronic microvascular ischemic disease. ACT 112: Negative or not required by law. The above report was generated using voice recognition software. It may contain grammatical, syntax or spelling errors. Electronically signed by: Talib Morales M.D. 10/12/2024 2:12 PM Supervising Physician Co-Signing Physician Notes see communication note. (1) HTN (hypertension) Hypertension type: primary hypertension Qualified Code(s): I10 - Essential (primary) hypertension (2) CAD (coronary artery disease) Associated angina: without angina Coronary Disease-Associated Artery/Lesion type: [place] artery [place] vs. transplanted heart: [place] heart Qualified Code(s): I25.10 - Atherosclerotic heart disease of [place] coronary artery without angina pectoris
--- NOTE | 2024-10-12 17:18 | Electrocardiogram Report ---
Test Reason : Blood Pressure : */* mmHG Vent. Rate : 52 BPM Atrial Rate : 52 BPM P-R Int : 206 ms QRS Dur : 88 ms QT Int : 438 ms P-R-T Axes : 85 -22 27 degrees QTcB Int : 407 ms Sinus bradycardia Minimal voltage criteria for LVH, may be normal variant ( Baron product ) Borderline ECG When compared with ECG of 03-Aug-2024 22:25, QT has shortened Confirmed by Manuel Hdz ([id number]) on 10/12/2024 5:17:55 PM Referred By: Confirmed By: Manuel Hdz
[2024-10-12] MEDS ORDERED: FUROSEMIDE 20 MG TAB PO SCH (19:00)
[2024-10-12] MEDS: FUROSEMIDE 20 MG TAB PO SCH (19:56)
[2024-10-12] MEDS: METOPROLOL TARTRATE 25 MG TAB PO SCH (20:03)
[2024-10-12] MEDS: ATORVASTATIN 20 MG TAB PO SCH (20:03)
[2024-10-12] MEDS: MONTELUKAST SODIUM 10 MG TABLET PO SCH (20:03)
[2024-10-12] MEDS: BIMATOPROST 0.01% OP SOLN 2.5 ML BTL OP SCH (20:26)
[2024-10-13] MEDS: LEVOTHYROXINE SODIUM 100 MCG TABLET PO SCH (05:54)
[2024-10-13 06:41] LABS: Basophils # (auto) 0.03 K/uL (0.00-0.20); Basophils % (auto) 0.4 %; Eosinophils # (auto) 0.24 K/uL (0.00-0.50); Eosinophils % (auto) 3.6 %; Hematocrit (blood only) 34.2 % (37.0-47.0); Hemoglobin 11.6 g/dl (12.0-16.0); Immature Granulocytes # (auto) 0.01 K/uL (0.01-0.20); Immature Granulocytes % (auto) 0.1 %; Lymphocytes # (auto) 1.66 K/uL (1.20-3.40); Lymphocytes % (auto) 24.6 %; Mean Corpuscular Hemoglobin 30.7 pg (25.0-34.0); Mean Corpuscular Hgb Conc 33.9 g/dL (32.0-36.0); Mean Corpuscular Volume 90.5 fL (80.0-100.0); Mean Platelet Volume 11.8 fL (9.4-12.4); Monocytes # (auto) 0.72 K/uL (0.11-0.59); Monocytes % (auto) 10.7 %; Neutrophils # (auto) 4.09 K/uL (1.40-6.50); Neutrophils % (auto) 60.6 %; Platelet Count 250 K/uL (130-400); RDW Coefficient of Variation 14.6 % (11.5-14.5); RDW Standard Deviation 48.1 fL (36.4-46.3); Red Blood Count 3.78 M/uL (4.20-5.40); White Blood Count 6.75 K/ul (4.8-10.8)
--- OUTSIDE RECORDS SUMMARY | 2024-10-13 06:50 | External Medical Summary | Summary of Care ---
Author Name Unknown Organization [facility] Address [address] [place] [address] Phone [phone] Care Team Providers Care Biometrics Instructor Name Role Phone Unavailable Primary Care Provider Unavailabl e Reason for Visit * Reason Onset Date Comments Test Results 10/02/2024 Encounter Details Date Type Department Care Team (Late st Contact Info) Description 10/02/2024 Telephone Family Medicine [address] [phone] Linda Smith MD [address] [place] [address] [place] [phone] Test Results Allergies Active Allergy Reactions Criticality Noted Date Comments Brassica Oleracea 05/17/2020 Other Reaction(s): Gas Crab (Diagnostic) 04/05/2018 Crab Extract 05/17/2020 Other Reaction(s): diarrhea Food (See Comments) 07/24/2015 Broccoli, beans, cauliflower - cause gas Grapefruit, oranges - cause bronchitis - positive skin test Grapefruit Extract 05/17/2020 Other Reaction(s): BRONCHITIS [place] Oil 05/17/2020 Other Reaction(s): BRONCHITIS Paroxetine Hydrochloride 04/03/2009 Penicillins 04/03/2009 Blisters on hands Peanut-Containing Drug Products Abdominal pain Medium 07/24/2015 Gas, bloating Phaseolus 01/10/2024 Other Reaction(s): Bloating, Gas also with green beans documented as of this encounter (statuses as of 10/02/2024) Medications Medication Sig Dispensed Refills Start Date End Date Status triamcinolone acetonide (ARISTOCORT) 0.1 % creamIndications:Int rinsic [...] 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% ([facility]) Test blood sugar once daily as directed; dx E11.9 100 Strip 3 01/03/2024 Active Wixela Inhub 250-50 MCG/ACT Inhalation Aerosol Powder Breath Activated (Fluticasone-Salmete rol) INHALE 1 PUFF BY MOUTH IN THE MORNING AND 1 PUFF BEFORE BEDTIME. 180 Each 3 01/17/2024 Active guaiFENesin ER 600 MG Oral Tablet [...] the morning. 90 Capsule 3 04/21/2024 Active CoQ-10 100 MG Oral Capsule Take 1 Capsule by mouth in the morning. 90 Capsule 04/21/2024 Active Vitamin B-12 1000 MCG Oral Tablet (Cyanocobalamin) Take 1 Tablet by mouth in the morning. 90 Tablet 04/21/2024 Active Vitamin C 500 MG Oral Tablet (Ascorbic Acid) Take 1 Tablet by mouth in the morning. 90 Tablet 04/21/2024 Active Zinc 50 MG Oral Tablet Take 1 Tablet by mouth in the morning. 90 Tablet 04/21/2024 Active Aspirin 81 MG Oral Tablet Delayed Release (Ecotrin Low Strength) Take 1 Tablet by mouth in the morning. 100 Tablet 04/21/2024 Active Losartan Potassium 100 MG [...] DAY WITH BREAKFAST AND DINNER 180 Tablet 04/21/2024 Active Metoprolol Tartrate 25 MG Oral Tablet (Lopressor)Indicatio ns:Essential hypertension with goal blood pressure less than 140/90,Atheroscleros is of [place] coronary artery of [place] heart without angina pectoris,Paroxysmal atrial fibrillation (HCC) Take 1 Tablet by mouth in the morning and 1 Tablet before bedtime. 180 Tablet 04/21/2024 Active Montelukast Sodium 10 MG Oral Tablet (Singulair)Indicatio ns:Other seasonal allergic rhinitis Take 1 Tablet by mouth at bedtime. 90 Tablet 04/21/2024 Active Atorvastatin Calcium 20 MG Oral Tablet (Lipitor)Indications :Atherosclerosis of [place] coronary artery of [place] heart without angina pectoris,Paroxysmal atrial fibrillation (HCC),Dyslipidemia, goal LDL below 100 take one pill by mouth at bedtime 90 Tablet 04/21/2024 Active Potassium Chloride Krystal ER 20 MEQ Oral Tablet Extended Release (Klor-Con M20) Take 1 Tablet by mouth in the morning. 90 Tablet 04/21/2024 Active Ramelteon 8 MG Oral Tablet (Rozerem)Indications :Insomnia, unspecified type Take 1 Tablet by mouth at bedtime. 90 Tablet 1 06/14/2024 Active Nystatin 973696 UNIT/GM External CreamIndications:Jeffry matitis Apply topically to affected area 2 times a day. To affacted area for two weeks. 60 g 2 07/12/2024 Active Eliquis 5 MG Oral Tablet (Apixaban)Indication s:Paroxysmal atrial fibrillation (HCC) TAKE 1 TABLET BY MOUTH TWICE A DAY 180 Tablet 3 07/18/2024 Active amLODIPine Besylate 10 MG Oral Tablet (Norvasc)Indications :Benign hypertension with CKD (chronic kidney disease), stage II One daily 90 Tablet 1 08/10/2024 Active hydrALAZINE HCl 25 MG Oral Tablet (Apresoline)Indicati ons:Benign hypertension with CKD (chronic kidney disease), stage II Take 1 Tablet by mouth in the morning and 1 Tablet before bedtime. 180 Tablet 1 08/10/2024 Active Levothyroxine Sodium 100 MCG Oral Tablet (Levoxyl)Indications :Acquired hypothyroidism TAKE 1 TABLET BY MOUTH EVERY DAY IN THE MORNING 90 Tablet 3 09/22/2024 Active Magnesium Oxide -Mg Supplement 400 (240 Mg) MG Oral Tablet (Mag-Ox) Take 1 Tablet by mouth in the morning. 90 Tablet 1 09/28/2024 Active oxyBUTYnin Chloride ER 10 MG Oral Tablet Extended Release 24 Hour (Ditropan XL) Take 1 Tablet by mouth in the morning. 90 Tablet 1 09/28/2024 Active Pantoprazole Sodium 40 MG Oral Tablet Delayed Release (Protonix)Indication s:Gastroesophageal reflux disease with esophagitis 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 Take 1 Tablet by mouth in the morning. 30 minutes before the first meal of the day. Do not crush, split or chew the tablet. 30 Tablet 5 09/28/2024 Active Sodium Chloride 1 GM Oral Tablet Take 1 Tablet by mouth in the morning and 1 Tablet before bedtime. 180 Tablet 1 09/29/2024 Active Sulfamethoxazole-Tri methoprim 800-160 MG Oral Tablet (Bactrim DS)Indications:UTI symptoms Take 1 Tablet by mouth in the morning and 1 Tablet before bedtime. Do all this for 7 days. Until gone. 14 Tablet 10/02/2024 Active documented as of this encounter (statuses as of 10/02/2024) Active Problems Problem Noted Date Diagnosed Date [...] ase with esophagitis 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 Atherosclerosis of [place] co ronary artery of [place] heart without angina pectoris Adjustment disorder with depressed mood documented as of this encounter (statuses as of 10/02/2024) Resolved Problems Problem Noted Date Diagnosed Date [...] persistent 09/23/2012 09/23/2012 Genetic Sleep Disorder Resea [facility] Other*[id number] 09/12/2012 06/25/2016 Obesity, Class II, BMI 35-39 [...] as of this encounter (statuses as of 10/02/2024) Immunizations Name Administration Dates Next Due COVID-19 mRNA, LNP-s, No Pre serve, 2-Dose Series (Moderna) 03/15/2021,02/16/2021 COVID-19, MRNA-LNP, PF, 30 M CG/0.3 mL, 12 YRS AND ABOVE, IM (PFIZER-Comirnaty) 09/11/2024,11/17/2023 COVID-19, mRNA, LNP-s, PF, B ooster, 100mcg/0.5mg (Moderna) 12/02/2021 Diptheria/Tetanus (Adult) 03/22/2017 Pneumococcal Conjugate Vacc, 13 Valent (Prevnar) 04/23/2015 Pneumococcal Polysaccharide PPV23 (Pneumovax) 11/29/2005 Season Influenza, Quad, PF, Adjuvanted, 65+ Yrs, IM (FLUAD) 08/13/2020 Seasonal Influenza Vac., MDV , IM, 0.5 mL (Fluzone) 09/12/2015,08/14/2014,11/14/2013,10/06,09/01/2011,08/28/2010 Seasonal Influenza, High Dos e, Trivalent, PF, IM (Fluzone HD) 09/11/2024 Seasonal Influenza, PF, 6 M & above, IM , (FluLaval or Fluzone) 08/29/2019,10/03/2018,09/29/2017 Seasonal Influenza, Quadriva lent Hd (Fluzone Hd) 09/17/2022,10/17/2021 Seasonal Influenza, Quadriva lent, No Preserve, IM 10/12/2016 TDAP (age 10 and older)(Boostrix) 09/19/2017 TDAP, [...] Miscellaneous Notes * Telephone Encounter - Lisa Murcia CMA - 10/02/2024 2:47 PM EST I called and let the patient know. * Telephone Encounter - Linda Smith MD - 10/02/2024 11:26 AM EST UA is abnormal - bactrim sent to pt's pharmacy * Telephone Encounter - Amy Bhandari LPN - 10/02/2024 11:13 AM EST Concerns Liza RN, Calling from: [facility] Report/Concerns of: UA results from 09/28 Narrative: Liza spoke with pt on the phone today, Pt was concern as she never heard about UA results. She continues to have burning urgency and frequent urination. Call back Yudelka with any advice at [phone] documented in this encounter Plan of Treatment Upcoming Encounters Date Type Department Care Team (Late st Contact Info) Description 10/13/2024 12:40 PM EST Office Visit Family Medicine [address] [place] [phone] Lilo Ba MD [address] [place] [address] [place] [phone] 10/25/2024 11:30 AM EST Office Visit Cardiology, [facility] [address] [place] [address] Francheska Ponce PA-C [address] [place] [address] 03/12/2025 2:00 PM EDT Office Visit [address] [place] [phone] Lilo Ba MD [address] [place] [address] [place] [phone] 03/26/2025 4:00 PM EDT Office Visit Cardiology, [facility] [address] [place] [address] Chace Paecock DO [address] [place] [address] Health Maintenance Due Date Last Done Comments Zoster Vaccines (1 of 2) 1989 Depression Screening 04/29/2021 04/29/2020 Diabetic Foot Exam 04/28/2024 04/28/2023, 0 03/12/2022, 04/01/2021, Additional history exists Diabetic Eye Exam 09/03/2024 09/03/2023, , 09/03/2023, Additional history exists Albumin/Creatinine Ratio 11/17/2024 023, 11/17/2022, 11/13/2021, Additional history exists HbA1c 03/12/2025 09/11/2024, 10/30, 04/28/2023, Additional history exists TSH 09/11/2025 09/11/2024, 11/29, 04/28/2023, Additional history exists DXA Scan 05/31/2026 05/31/2019, 07/15/2012 DTap/Tdap Vaccines (4 - Td or Tdap) 09/19/2027 09/19/2017, 03/22/2017, 07/29/2012 Pneumococcal Vaccine: 65+ Years Completed 04/23/2015, 11/29/2005 COVID-19 Vaccine Completed 09/11/2024, , 12/02/2021, Additional history exists Influenza Vaccine (FLU shot) Completed , 10/29/2023, 09/17/2022, Additional history exists HPV (Gardasil) Vaccine Aged Out No lo [...] as of this encounter Visit Diagnoses Diagnosis UTI symptoms- Primary Other symptoms involving urinary system documented in this encounter
--- OUTSIDE RECORDS SUMMARY | 2024-10-13 06:50 | External Medical Summary | Summary of Care ---
Author Name Unknown Organization [facility] Address [address] [place] [address] Phone [phone] Care Team Providers Care Release Manager Name Role Phone Unavailable Primary Care Provider Unavailabl e Reason for Visit * Reason Onset Date Comments Test Results 10/02/2024 Encounter Details Date Type Department Care Team (Late st Contact Info) Description 10/02/2024 Telephone Family Medicine [address] [phone] Linda Smith MD [address] [place] [address] [place] [address] Test Results Allergies Active Allergy Reactions Criticality Noted Date Comments Brassica Oleracea 05/17/2020 Other Reaction(s): Gas Crab (Diagnostic) 04/05/2018 Crab Extract 05/17/2020 Other Reaction(s): diarrhea Food (See Comments) 07/24/2015 Broccoli, beans, cauliflower - cause gas Grapefruit, oranges - cause bronchitis - positive skin test Grapefruit Extract 05/17/2020 Other Reaction(s): BRONCHITIS [place] Oil 05/17/2020 Other Reaction(s): BRONCHITIS Paroxetine Hydrochloride [...] 30GIndications:DM type 2, 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% ([facility]) TEST BLOOD SUGAR ONCE DAILY DIRECTED DX E11.9 100 Each 3 01/03/2024 Active OneTouch Verio In Vitro Strip (Glucose Blood)Indications:DM type 2, 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% ([facility]) Test blood sugar once daily as [...] blood pressure less than 140/90,Atheroscleros is of [place] coronary artery of [place] heart without angina pectoris,Paroxysmal atrial fibrillation (HCC) Take 1 Tablet by mouth in the morning and 1 Tablet before bedtime. 180 Tablet 04/21/2024 Active Montelukast Sodium 10 MG Oral Tablet (Singulair)Indicatio ns:Other seasonal allergic rhinitis Take 1 Tablet by mouth at bedtime. 90 Tablet 04/21/2024 Active Atorvastatin Calcium 20 MG Oral Tablet (Lipitor)Indications :Atherosclerosis of [place] coronary artery of [place] heart without angina pectoris,Paroxysmal atrial fibrillation (HCC),Dyslipidemia, [...] bedtime. 90 Tablet 1 06/14/2024 Active Nystatin [id number] UNIT/GM External CreamIndications:Jeffry matitis Apply topically to [...] ase with esophagitis 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 Atherosclerosis of [place] co ronary artery of [place] heart without angina pectoris Adjustment disorder with [...] 09/23/2012 09/23/2012 Genetic Sleep Disorder Resea [facility] Other*[id number] 09/12/2012 06/25/2016 Obesity, Class II, BMI 35-39 [...] Bhandari LPN - 10/02/2024 11:13 AM EST HH Concerns Liza RN, Calling from: [facility] Report/Concerns of: UA results from 09/28 Narrative: Liza spoke with pt on the phone today, Pt was concern as she never heard about UA results. She continues to have burning urgency and frequent urination. Call back Yudelka with any advice at [phone] documented in this encounter Plan of Treatment Upcoming Encounters Date Type Department Care Team (Late st Contact Info) Description 10/13/2024 12:40 PM EST Office Visit Family Medicine [address] [place] [phone] Lilo Ba MD [address] [place] [address] [place] [phone] 10/25/2024 11:30 AM EST Office Visit Cardiology, [facility] [address] [place] [address] Francheska Ponce PA-C [address] [place] [address] 03/12/2025 2:00 PM EDT Office Visit Family [address] [place] [phone] Lilo Ba MD [address] [place] [address] [place] [phone] 03/26/2025 4:00 PM EDT Office Visit Cardiology, [facility] [address] [place] [address] Chace Peacock, [address] [place] [address] Health Maintenance Due Date Last Done Comments [...]
--- OUTSIDE RECORDS SUMMARY | 2024-10-13 06:50 | External Medical Summary | Summary of Care ---
Author Name Unknown Organization [facility] Address [address] [place] [address] Phone [phone] Care Team Providers Care Wood Block Artist Name Role Phone Unavailable Primary Care Provider Unavailabl e Reason for Visit * Reason Onset Date Comments Home Health 10/03/2024 Encounter Details Date Type Department Care Team (Late st Contact Info) Description 10/03/2024 Telephone Family Medicine [address] [phone] [place] [address] Home Health Allergies Active Allergy Reactions Criticality Noted Date Comments Brassica Oleracea 05/17/2020 Other Reaction(s): Gas Crab (Diagnostic) 04/05/2018 Crab Extract 05/17/2020 Other Reaction(s): diarrhea Food (See Comments) 07/24/2015 Broccoli, beans, cauliflower - cause gas Grapefruit, oranges - cause bronchitis - positive skin test Grapefruit Extract 05/17/2020 Other Reaction(s): BRONCHITIS [place] Oil 05/17/2020 Other Reaction(s): BRONCHITIS Paroxetine Hydrochloride 04/03/2009 Penicillins 04/03/2009 Blisters on hands Peanut-Containing Drug Products Abdominal pain Medium 07/24/2015 Gas, bloating Phaseolus 01/10/2024 Other Reaction(s): Bloating, Gas also with green beans documented as of this encounter (statuses as of 10/03/2024) Medications Medication Sig Dispensed Refills Start Date [...] 2, 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% ([facility]) TEST BLOOD SUGAR ONCE DAILY DIRECTED DX E11.9 100 Each 3 01/03/2024 Active OneTouch Verio In Vitro Strip (Glucose Blood)Indications:DM type 2, 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% ([facility]) Test blood sugar once daily as directed; [...] the morning. 100 Tablet 3 04/21/2024 Active Losartan Potassium 100 MG Oral [...] blood pressure less than 140/90,Atheroscleros is of [place] coronary artery of [place] heart without angina pectoris,Paroxysmal atrial fibrillation (HCC) Take 1 Tablet by mouth in the morning and 1 Tablet before bedtime. 180 Tablet 04/21/2024 Active Montelukast Sodium 10 MG Oral Tablet (Singulair)Indicatio ns:Other seasonal allergic rhinitis Take 1 Tablet by mouth at bedtime. 90 Tablet 04/21/2024 Active Atorvastatin Calcium 20 MG Oral Tablet (Lipitor)Indications :Atherosclerosis of [place] coronary artery of [place] heart without angina pectoris,Paroxysmal atrial fibrillation (HCC),Dyslipidemia, [...] bedtime. 90 Tablet 1 06/14/2024 Active Nystatin 160182 UNIT/GM External CreamIndications:Jeffry matitis Apply topically to [...] as of this encounter (statuses as of 10/03/2024) Active Problems Problem Noted Date Diagnosed Date [...] -- start auto BIPAP DME - Rashida Primary hypertension 10/17/2009 Overview: Modified per HTN protocol #16. Acquired hypothyroidism Gastroesophageal reflux dise ase with esophagitis 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 Atherosclerosis of [place] co ronary artery of [place] heart without angina pectoris Adjustment disorder with depressed mood documented as of this encounter (statuses as of 10/03/2024) Resolved Problems Problem Noted Date Diagnosed Date [...] persistent 09/23/2012 09/23/2012 Genetic Sleep Disorder Resea [facility] Other*[id number] 09/12/2012 06/25/2016 ADVANCE DIRECTIVE INFORMATION 06/11/2011 10/02/2024 Overview: No, Advance Directive brochure given to patient. - mailed 06/11/2011 Obesity, Class II, BMI 35-39 .9, isolated [...] as of this encounter (statuses as of 10/03/2024) Immunizations Name Administration Dates Next Due COVID-19 [...] encounter Miscellaneous Notes * Telephone Encounter - Eleni Correa LPN - 10/03/2024 11:05 AM EST Home Health Continuation/Re-certification of Care Order Request: Luda NUGENT, Calling from: [employer]. Today is the last day of allotted visits. 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 Marquez and to fax to the office for signature. T 98.6 P 57 RR 18 BP 154/64 Ankle Circumference: Right 20.5cm left 21cm SPO2 97% RA Lungs Clear Pain 3/10- below right rib, hernia documented in this encounter Plan of Treatment Upcoming Encounters Date Type Department Care Team (Late st Contact Info) Description 10/13/2024 12:40 PM EST Office Visit Family Medicine [address] [place] [phone] Lilo Ba MD [address] [place] [address] [place] [phone] 10/25/2024 11:30 AM EST Office Visit Cardiology, [facility] [address] [address] Francheska Ponce PA-C [address] [place] [address] 03/12/2025 2:00 PM EDT Office Visit Family Medicine [address] [place] [phone] Lilo Ba MD [address] [place] [address] [place] [phone] 03/26/2025 4:00 PM EDT Office Visit Cardiology, [facility] [address] [place] [address] Chace Peacock DO [address] [place] [address] Health Maintenance Due Date Last Done Comments [...]
--- OUTSIDE RECORDS SUMMARY | 2024-10-13 06:50 | External Medical Summary | Summary of Care ---
Author Name Unknown Organization [facility] Address [address] [place] [address] Phone [phone] Care Team Providers Care Mill Laborer Name Role Phone Unavailable Primary Care Provider Unavailabl e Reason for Visit * Reason Onset Date Comments Home Health 09/27/2024 Encounter Details Date Type Department Care Team (Late st Contact Info) Description 09/27/2024 Telephone Family Medicine [address] [phone] Denisa Villalpando PA-C [address] [place] [address] [place] [address] Home Health Allergies Active Allergy Reactions Criticality Noted Date Comments Brassica Oleracea 05/17/2020 Other Reaction(s): Gas Crab (Diagnostic) 04/05/2018 Crab Extract 05/17/2020 Other Reaction(s): diarrhea Food (See Comments) 07/24/2015 Broccoli, beans, cauliflower - cause gas Grapefruit, oranges - cause bronchitis - positive skin test Grapefruit Extract 05/17/2020 Other Reaction(s): BRONCHITIS [place] Oil 05/17/2020 Other Reaction(s): BRONCHITIS Paroxetine Hydrochloride 04/03/2009 Penicillins 04/03/2009 Blisters on hands Peanut-Containing Drug Products Abdominal pain Medium 07/24/2015 Gas, bloating Phaseolus 01/10/2024 Other Reaction(s): Bloating, Gas also with green beans documented as of this encounter (statuses as of 09/29/2024) Medications Medication Sig Dispensed Refills Start Date End Date Status triamcinolone acetonide (ARISTOCORT) 0.1 % creamIndications:I ntrinsic [...] type 2, 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% ([facility]) TEST BLOOD SUGAR ONCE DAILY DIRECTED DX E11.9 100 Each 3 4 Active OneTouch Verio In Vitro Strip (Glucose Blood)Indications: DM type 2, 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% ([facility]) Test blood sugar once daily as directed; dx E11.9 100 Strip 3 4 Active Wixela Inhub 250-50 MCG/ACT Inhalation Aerosol Powder Breath Activated (Fluticasone-Salme terol) INHALE 1 PUFF BY MOUTH IN THE MORNING AND 1 PUFF BEFORE BEDTIME. 180 Each 3 4 Active guaiFENesin ER 600 MG Oral Tablet Extended Release 12 Hour (Mucinex)Indicatio ns:Bronchitis, complicated Take 1 Tablet by mouth 2 [...] the morning. 90 Capsule 3 4 Active Vitamin B-12 1000 MCG Oral Tablet (Cyanocobalamin) Take 1 Tablet by mouth in the morning. 90 Tablet 3 4 Active Vitamin C 500 MG Oral Tablet (Ascorbic Acid) Take 1 Tablet by mouth in the morning. 90 Tablet 3 4 Active Zinc 50 MG Oral Tablet Take 1 Tablet by mouth in the morning. 90 Tablet 3 4 Active Aspirin 81 MG Oral Tablet Delayed Release (Ecotrin Low Strength) Take 1 Tablet by mouth in the morning. 100 Tablet 3 4 Active Losartan Potassium 100 MG Oral Tablet (Cozaar)Indication s:Benign hypertension with CKD (chronic kidney disease), stage II,Essential hypertension with goal blood pressure less than 140/90,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) Take 1 Tablet by mouth in the morning. 90 Tablet 1 4 Active metFORMIN HCl 850 MG Oral Tablet (Glucophage)Indica tions:Type 2 diabetes mellitus with hemoglobin A1c goal of less than 7.0% (HCC) TAKE 1 TABLET BY MOUTH TWICE A DAY WITH BREAKFAST AND DINNER 180 Tablet 1 4 Active Metoprolol Tartrate 25 MG Oral Tablet (Lopressor)Indicat ions:Essential hypertension with goal blood pressure less than 140/90,Atheroscler osis of [place] coronary artery of [place] heart without angina pectoris,Paroxysma l atrial fibrillation (HCC) Take 1 Tablet by mouth in the morning and 1 Tablet before bedtime. 180 Tablet 1 4 Active Montelukast Sodium 10 MG Oral Tablet (Singulair)Indicat ions:Other seasonal allergic rhinitis Take 1 Tablet by mouth at bedtime. 90 Tablet 1 4 Active Atorvastatin Calcium 20 MG Oral Tablet (Lipitor)Indicatio ns:Atherosclerosis of [place] coronary artery of [place] heart without angina pectoris,Paroxysma l atrial fibrillation (HCC),Dyslipidemia , goal LDL below 100 take one pill by mouth at bedtime 90 Tablet 1 4 Active Potassium Chloride Krystal ER 20 MEQ Oral Tablet Extended Release (Klor-Con M20) Take 1 Tablet by mouth in the morning. 90 Tablet 1 4 Active Ramelteon 8 MG Oral Tablet (Rozerem)Indicatio ns:Insomnia, unspecified type Take 1 Tablet by mouth at bedtime. 90 Tablet 1 4 Active Nystatin 769052 UNIT/GM External CreamIndications:D ermatitis Apply topically to affected area 2 times a day. To affacted area for two weeks. 60 g 2 4 Active Eliquis 5 MG Oral Tablet (Apixaban)Indicati ons:Paroxysmal atrial fibrillation (HCC) TAKE 1 TABLET BY MOUTH TWICE A DAY 180 Tablet 3 4 Active amLODIPine Besylate 10 MG Oral Tablet (Norvasc)Indicatio ns:Benign hypertension with CKD (chronic kidney disease), stage II One daily 90 Tablet 1 4 Active hydrALAZINE HCl 25 MG Oral Tablet (Apresoline)Indica tions:Benign hypertension with CKD (chronic kidney disease), stage II Take 1 Tablet by mouth in the morning and 1 Tablet before bedtime. 180 Tablet 1 4 Active Levothyroxine Sodium 100 MCG Oral Tablet (Levoxyl)Indicatio ns:Acquired hypothyroidism TAKE 1 TABLET BY MOUTH EVERY DAY IN THE MORNING 90 Tablet 3 4 Active Magnesium Oxide -Mg Supplement 400 (240 Mg) MG Oral Tablet (Mag-Ox) Take 1 Tablet by mouth in the morning. 90 Tablet 1 4 Active oxyBUTYnin Chloride ER 10 MG Oral Tablet Extended Release 24 Hour (Ditropan XL) Take 1 Tablet by mouth in the morning. 90 Tablet 1 4 Active Pantoprazole Sodium 40 MG Oral Tablet Delayed Release (Protonix)Indicati ons:Gastroesophage al reflux disease with esophagitis 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 Take 1 Tablet by mouth in the morning. 30 minutes before the first meal of the day. Do not crush, split or chew the tablet. 30 Tablet 5 4 Active Sodium Chloride 1 GM Oral Tablet Take 1 Tablet by mouth in the morning and 1 Tablet before bedtime. 180 Tablet 1 4 Active Magnesium Oxide -Mg Supplement 400 (240 Mg) MG Oral Tablet (Mag-Ox) Take 1 Tablet by mouth in the morning. 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 90 Capsule 1 4 024 Discontinued Sodium Chloride 1 GM Oral Tablet Take 1 Tablet by mouth in the morning and 1 Tablet before bedtime. 180 Tablet 1 4 024 Discontinued(Re fill) oxyBUTYnin Chloride ER 10 MG Oral Tablet Extended Release 24 Hour (Ditropan XL) Take 1 Tablet by mouth in the morning. 90 Tablet 1 4 024 Discontinued(Re fill) documented as of this encounter (statuses as of 09/29/2024) Active Problems Problem Noted Date Diagnosed Date [...] as of this encounter (statuses as of 09/29/2024) Resolved Problems Problem Noted Date Diagnosed Date [...] persistent 09/23/2012 09/23/2012 Genetic Sleep Disorder Resea [facility] Other*[id number] 09/12/2012 06/25/2016 Obesity, Class II, BMI 35-39 [...] as of this encounter (statuses as of 09/29/2024) Immunizations Name Administration Dates Next Due COVID-19 [...] encounter Miscellaneous Notes * Addendum Note - Denisa Villalpando PA-C - 09/29/2024 12:47 PM EDTAddended by: DENISA VILLALPANDO on: 09/29/2024 12:47 PM Modules accepted: Orders * Addendum Note - Per Farias LPN - 09/29/2024 10:27 AM EDTAddended by: PER FARIAS on: 09/29/2024 10:27 AM Modules accepted: Orders * Telephone Encounter - Per Farias LPN - 09/29/2024 10:22 AM EDT HH Concerns Madisyn DOMINGUEZ, Calling from: Giul[place] Report/Concerns of: Medication Related Symptoms: none Narrative: Deepak calling in today to have Sodium Chloride script transferred from [facility] pharmacy to [facility] pharmacy. Patient does not use [facility] for pharmacy/pill packs. Call back Madisyn with any advice or orders at [phone] or cell # [phone] Please fax new orders to [facility] Medication pended-[facility] pharmacy * Telephone Encounter - Lisa Murcia CMA - 09/28/2024 3:35 PM EDT Faxed chao note to [facility] * Telephone Encounter - Denisa Villalpando PA-C - 09/28/2024 8:06 AM EDT Can dc checking BS. Protonix sent to pharmacy. * Telephone Encounter - Lisa Ca LPN - 09/27/2024 3:25 PM EDT HH Concerns Madisyn DOMINGUEZ, Calling from: Giuliano Symptoms: uti- burning and frequency urgency Narrative: ALBERTO Mars calling back. She spoke with the patient after speaking with Amy. C/O Urgency, burning, and frequency that started last evening. Denies hematuria, fevers. There is open orders for UA Micro and Culture in patients chart, faxed them to [facility] successfully. nurse will collect urine specimen and drop off at the lab tomorrow. Patient's HGB A1C was 5.7 on 09/11/24. Since Yudelka isn't able to check her BS due to needing a new glucometer battery and her A1C being 5.7, she's asking if the order to check BS once daily can be DC'D? If the order for testing is DC'D, please fax to [phone]. Last saw Denisa 09/11/2024 Please fax new orders to [facility] * Telephone Encounter - Amy Bhandari LPN - 09/27/2024 2:41 PM EDT HH Concerns Madisyn DOMINGUEZ, Calling from: [place] Report/Concerns of: Medication Related Symptoms: see Narrative Vitals: T98.2 P60 RR18 BP 124/66 SP O2 96%RA Lung sounds clear [id number] Blood sugar N/a Narrative: pt's Dexlansoprazole 60 mg cap is costs $855 for 3 month supply. Pt cannot afford it. Is there an different medication that would not be so costly? Pt needs mag ox and oxybutynin sent to [facility] pharm. pending Pt is non compliant with checking her blood sugar. She has needed a new battery for sometime but never purchased one to replace it. Madisyn inquiring if pt needs to continue checking her BS? Please advise. Call back Madisyn with any advice or orders at [phone] documented in this encounter Plan of Treatment Upcoming Encounters Date Type Department Care Team (Late st Contact Info) Description 10/13/2024 12:40 PM EST Office Visit [address] [place] [phone] Lilo Ba MD [address] [place] [address] [place] [phone] 10/25/2024 11:30 AM EST Office Visit Cardiology, [facility] [address] [place] [address] Francheska Ponce PA-C [address] [place] [address] 03/12/2025 2:00 PM EDT Office Visit Family Medicine [address] [place] [phone] Lilo Ba MD [address] [place] [address] [place] [phone] 03/26/2025 4:00 PM EDT Office Visit Cardiology, [facility] [address] [place] [address] Chace Peacock, [address] [place] [address] Health Maintenance Due Date Last Done Comments [...] Diagnosis Gastroesophageal reflux disease with esophagitis 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- Primary documented in this encounter
--- OUTSIDE RECORDS SUMMARY | 2024-10-13 06:50 | External Medical Summary | Summary of Care ---
Author Name Unknown Organization [facility] Address [address] [place] [address] Phone [phone] Care Team Providers Care Stripper Apprentice Name Role Phone Unavailable Primary Care Provider Unavailabl e Encounter Details Date Type Department Care Team (Late st Contact Info) Description 09/28/2024 Result Scan Unspecified Department Linda Smith MD [address] [place] [address] [place] [address] <No scans attached> Allergies Active Allergy Reactions Criticality Noted Date Comments Brassica Oleracea 05/17/2020 Other Reaction(s): Gas Crab (Diagnostic) 04/05/2018 Crab Extract 05/17/2020 Other Reaction(s): diarrhea Food (See Comments) 07/24/2015 Broccoli, beans, cauliflower - cause gas Grapefruit, oranges - cause bronchitis - positive skin test Grapefruit Extract 05/17/2020 Other Reaction(s): BRONCHITIS [place] Oil 05/17/2020 Other Reaction(s): BRONCHITIS Paroxetine Hydrochloride [...] type 2, 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% ([facility]) TEST BLOOD SUGAR ONCE DAILY DIRECTED DX E11.9 100 Each 3 01/03/2024 Active OneTouch Verio In Vitro Strip (Glucose Blood)Indications:DM type 2, 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% ([facility]) Test blood sugar once daily as directed; [...] the morning. 90 Capsule 3 04/21/2024 Active Vitamin B-12 1000 MCG Oral Tablet (Cyanocobalamin) Take 1 Tablet by mouth in the morning. 90 Tablet 3 04/21/2024 Active Vitamin C 500 MG Oral Tablet (Ascorbic Acid) Take 1 Tablet by mouth in the morning. 90 Tablet 3 04/21/2024 Active Zinc 50 MG Oral Tablet Take 1 Tablet by mouth in the morning. 90 Tablet 3 04/21/2024 Active Aspirin 81 MG Oral Tablet [...] the morning. 90 Tablet 1 04/21/2024 Active metFORMIN HCl 850 MG Oral Tablet (Glucophage)Indicati ons:Type 2 diabetes mellitus with hemoglobin A1c goal of less than 7.0% (HCC) TAKE 1 TABLET BY MOUTH TWICE A DAY WITH BREAKFAST AND DINNER 180 Tablet 04/21/2024 Active Metoprolol Tartrate 25 MG Oral Tablet (Lopressor)Indicatio ns:Essential hypertension with goal blood pressure less than 140/90,Atheroscleros is of [place] coronary artery of [place] heart without angina pectoris,Paroxysmal atrial fibrillation (HCC) Take 1 Tablet by mouth in the morning and 1 Tablet before bedtime. 180 Tablet 04/21/2024 Active Montelukast Sodium 10 MG Oral Tablet (Singulair)Indicatio ns:Other seasonal allergic rhinitis Take 1 Tablet by mouth at bedtime. 90 Tablet 04/21/2024 Active Atorvastatin Calcium 20 MG Oral Tablet (Lipitor)Indications :Atherosclerosis of [place] coronary artery of [place] heart without angina pectoris,Paroxysmal atrial fibrillation (HCC),Dyslipidemia, [...] bedtime. 90 Tablet 1 06/14/2024 Active Nystatin 795747 UNIT/GM External CreamIndications:Jeffry matitis Apply topically to [...] before bedtime. 180 Tablet 1 09/29/2024 Active documented as of this encounter (statuses [...] ase with esophagitis 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 Atherosclerosis of [place] co [...] 09/23/2012 Genetic Sleep Disorder Resea [facility] Other*[id number] 09/12/2012 06/25/2016 Obesity, Class II, BMI 35-39 [...] 10/13/2024 12:40 PM EST Office Visit Family [address] [phone] Lilo Ba MD [address] [place] [address] [place] [phone] 10/25/2024 11:30 AM EST Office Visit Cardiology, [facility] [address] [place] [address] Francheska Ponce PA-C [address] [place] [address] 03/12/2025 2:00 PM EDT Office Visit [address] [phone] Lilo Ba MD [address] [place] [address] [place] [phone] 03/26/2025 4:00 PM EDT Office Visit Cardiology, [facility] [address] [place] [address] Chace Peacock DO [address] [place] [address] Health Maintenance Due Date Last Done Comments Zoster Vaccines (1 of 2) 1989 Depression Screening 04/29/2021 04/29/2020 Diabetic Foot Exam 04/28/2024 04/28/2023, 0 03/12/2022, 04/01/2021, Additional history exists Diabetic Eye Exam 09/03/2024 09/03/2023, , 09/03/2023, Additional history exists Albumin/Creatinine Ratio 11/17/202411/17/ 023, 11/17/2022, 11/13/2021, Additional history exists HbA1c [...] Procedure Name Priority Date/Time Associated Diagnosis Comments OUTSIDE LAB RESULTS 09/28/2024 documented in this encounter Results * OUTSIDE LAB RESULTS (09/28/2024) 09/28/2024 Linda Smith MD LABORATORY documented in this encounter
--- OUTSIDE RECORDS SUMMARY | 2024-10-13 06:51 | External Medical Summary | Summary of Care ---
Author Name Unknown Organization [facility] Address [address] [place] [address] Phone [phone] Care Team Providers Care Splitter Machine Name Role Phone Unavailable Primary Care Provider Unavailabl e Reason for Visit * Reason Onset Date Comments Home Health 09/27/2024 Encounter Details Date Type Department Care Team (Late st Contact Info) Description 09/27/2024 Telephone Family Medicine [address] [phone] Rolanda Villalpando PA-C [address] [place] [address] [place] [address] Home Health Allergies Active Allergy Reactions Criticality Noted Date Comments Brassica Oleracea 05/17/2020 Other Reaction(s): Gas Crab (Diagnostic) 04/05/2018 Crab Extract 05/17/2020 Other Reaction(s): diarrhea Food (See Comments) 07/24/2015 Broccoli, beans, cauliflower - cause gas Grapefruit, oranges - cause bronchitis - positive skin test Grapefruit Extract 05/17/2020 Other Reaction(s): BRONCHITIS [place] Oil 05/17/2020 Other Reaction(s): BRONCHITIS Paroxetine Hydrochloride [...] 30GIndications:DM type 2, 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% ([facility]) TEST BLOOD SUGAR ONCE DAILY DIRECTED DX E11.9 100 Each 3 4 Active OneTouch Verio In Vitro Strip (Glucose Blood)Indications: DM type 2, 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% ([facility]) Test blood sugar once daily as [...] blood pressure less than 140/90,Atheroscler osis of [place] coronary artery of [place] heart without angina pectoris,Paroxysma l atrial fibrillation (HCC) Take 1 Tablet by mouth in the morning and 1 Tablet before bedtime. 180 Tablet 1 4 Active Montelukast Sodium 10 MG Oral Tablet (Singulair)Indicat ions:Other seasonal allergic rhinitis Take 1 Tablet by mouth at bedtime. 90 Tablet 1 4 Active Atorvastatin Calcium 20 MG Oral Tablet (Lipitor)Indicatio ns:Atherosclerosis of [place] coronary artery of [place] heart without angina pectoris,Paroxysma l atrial fibrillation [...] bedtime. 90 Tablet 1 4 Active Nystatin 058845 UNIT/GM External CreamIndications:D ermatitis Apply topically to [...] before bedtime. 180 Tablet 1 4 Active Sodium Chloride 1 GM Oral [...] the tablet. 30 Tablet 5 4 Active Magnesium Oxide -Mg Supplement 400 (240 Mg) MG Oral Tablet (Mag-Ox) Take 1 Tablet by mouth in the morning. 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 90 Capsule 1 4 024 Discontinued oxyBUTYnin Chloride ER 10 MG Oral Tablet [...] with esophagitis 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 Atherosclerosis of [place] co ronary artery of [place] heart without angina pectoris Adjustment [...] 09/23/2012 09/23/2012 Genetic Sleep Disorder Resea [facility] Other*[id number] 09/12/2012 06/25/2016 Obesity, Class II, BMI 35-39 [...] encounter Miscellaneous Notes * Addendum Note - Per Vee LPN - 09/29/2024 10:27 AM EDTAddended by: PER VEE on: 09/29/2024 10:27 AM Modules accepted: Orders * Telephone Encounter - Per Vee LPN - 09/29/2024 10:22 AM EDT HH Concerns Madisyn DOMINGUEZ, Calling from: Giuliano Report/Concerns of: Medication Related Symptoms: none Narrative: Deepak calling in today to have Sodium Chloride script transferred from [facility] pharmacy to [facility] pharmacy. Patient does not use [facility] for pharmacy/pill packs. Call back Madisyn with any advice or orders at [phone] or cell # [phone] Please fax new orders to [facility] Medication pended-[facility] pharmacy * Telephone Encounter - Lisa Murcia CMA - 09/28/2024 3:35 PM EDT Faxed chao note to [facility] * Telephone Encounter - Rolanda Villalpando PA-C - 09/28/2024 8:06 AM EDT [...] Culture in patients chart, faxed them to [facility] successfully. HH nurse will collect urine specimen and drop off at the lab tomorrow. Patient's HGB A1C was 5.7 on 09/11/24. Since Yudelka isn't able to check her BS due to needing a new glucometer battery and her A1C being 5.7, she's asking if the order to check BS once daily can be DC'D? If the order for testing is DC'D, please fax to [phone]. Last saw Rolanda 09/11/2024 Please fax new orders to [facility] * Telephone Encounter - Amy Bhandari LPN - 09/27/2024 2:41 PM EDT HH Concerns Madisyn DOMINGUEZ, Calling from: Giuliano Report/Concerns of: Medication Related Symptoms: see Narrative Vitals: T98.2 P60 RR18 BP 124/66 SP O2 96%RA Lung sounds clear [id number] Blood sugar N/a Narrative: pt's Dexlansoprazole 60 mg cap is costs $855 for 3 month supply. Pt cannot afford it. Isthere an different medication that would not be so costly? Pt needs mag ox and oxybutynin sent to [facility] pharm. pending Pt is non compliant with checking her blood sugar. She has needed a new battery for sometime but never purchased one to replace it. Madisyn inquiring if pt needs to continue checking her BS? Please advise. Call back Madisyn with any advice or orders at [phone] documented in this encounter Plan of Treatment Upcoming Encounters Date Type Department Care Team (Late st Contact Info) Description 10/13/2024 12:40 PM EST Office Visit Family [address] [phone] Lilo Ba MD [address] [place] [address] [place] [phone] 10/25/2024 11:30 AM EST Office Visit [facility] [address] [place] [address] Francheska Ponce PA-C [address] [place] [address] 03/12/2025 2:00 PM EDT Office Visit Family Medicine [address] [phone] Lilo Ba MD [address] [place] [address] [place] [phone] 03/26/2025 4:00 PM EDT Office Visit Cardiology, [facility] [address] [place] [address] Chace Peacock, DO [address] [place] [address] Health Maintenance Due Date Last Done Comments [...]
--- OUTSIDE RECORDS SUMMARY | 2024-10-13 06:51 | External Medical Summary | Summary of Care ---
Author Name Unknown Organization [facility] Address [address] [place] [address] Phone [phone] Care Team Providers Care Looper Operator Name Role Phone Unavailable Primary Care Provider Unavailabl e Reason for Visit * Reason Onset Date Comments Home Health 09/27/2024 Encounter Details Date Type Department Care Team (Late st Contact Info) Description 09/27/2024 Telephone Family Medicine [address] [phone] Rolanda Villalpando PA-C [address] [place] [address] [place] [address] Home Health Allergies Active Allergy Reactions Criticality Noted Date Comments Brassica Oleracea 05/17/2020 Other Reaction(s): Gas Crab (Diagnostic) 04/05/2018 Crab Extract 05/17/2020 Other Reaction(s): diarrhea Food (See Comments) 07/24/2015 Broccoli, beans, cauliflower - cause gas Grapefruit, oranges - cause bronchitis - positive skin test Grapefruit Extract 05/17/2020 Other Reaction(s): BRONCHITIS [place] Oil 05/17/2020 Other Reaction(s): BRONCHITIS Paroxetine Hydrochloride 04/03/2009 Penicillins 04/03/2009 Blisters on hands Peanut-Containing Drug Products Abdominal pain Medium 07/24/2015 Gas, bloating Phaseolus 01/10/2024 Other Reaction(s): Bloating, Gas also with green beans documented as of this encounter (statuses as of 09/28/2024) Medications Medication Sig Dispensed Refills Start Date [...] HbA1c < 7.5% ([facility]) Test blood sugar once daily as [...] blood pressure less than 140/90,Atheroscler osis of [place] coronary artery of [place] heart without angina pectoris,Paroxysma l atrial fibrillation (HCC) Take 1 Tablet by mouth in the morning and 1 Tablet before bedtime. 180 Tablet 1 4 Active Montelukast Sodium 10 MG Oral Tablet (Singulair)Indicat ions:Other seasonal allergic rhinitis Take 1 Tablet by mouth at bedtime. 90 Tablet 1 4 Active Atorvastatin Calcium 20 MG Oral Tablet (Lipitor)Indicatio ns:Atherosclerosis of [place] coronary artery of [place] heart without angina pectoris,Paroxysma l atrial fibrillation [...] bedtime. 90 Tablet 1 4 Active Nystatin [id number] UNIT/GM External CreamIndications:D ermatitis Apply topically to [...] as of this encounter (statuses as of 09/28/2024) Active Problems Problem Noted Date Diagnosed Date [...] ase with esophagitis 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 Atherosclerosis of [place] co ronary artery of [place] heart without angina pectoris Adjustment disorder with depressed mood documented as of this encounter (statuses as of 09/28/2024) Resolved Problems Problem Noted Date Diagnosed Date [...] persistent 09/23/2012 09/23/2012 Genetic Sleep Disorder Resea [facility] Other*[id number] 09/12/2012 06/25/2016 Obesity, Class II, BMI 35-39 [...] as of this encounter (statuses as of 09/28/2024) Immunizations Name Administration Dates Next Due COVID-19 [...] - 09/28/2024 3:35 PM EDT Faxed chao mcghee to [facility] * Telephone Encounter - Rolanda Villalpando PA-C - 09/28/2024 8:06 AM EDT Can dc checking BS. Protonix sent to pharmacy. * Telephone Encounter - Lisa Ca LPN - 09/27/2024 3:25 PM EDT HH Concerns Madisyn DOMINGUEZ, Calling from: [facility] Symptoms: uti- burning and frequency urgency Narrative: ALBERTO Mars calling back. She spoke with the patient after speaking with Amy. C/O Urgency, burning, and frequency that started last evening. Denies hematuria, fevers. There is open orders for UA Micro and Culture in patients chart, faxed them to [facility] successfully. HH nurse will collect urine specimen [...] for testing is DC'D, please fax to [phone]. Last saw Rolanda 09/11/2024 Please fax new orders to [facility] * Telephone Encounter - Amy Bhandari LPN - 09/27/2024 2:41 PM EDT HH Concerns Madisyn DOMINGUEZ, Calling from: [facility] Report/Concerns of: Medication Related Symptoms: see Narrative Vitals: T98.2 P60 RR18 BP 124/66 SP O2 96%RA Lung sounds clear [id number] Blood sugar N/a Narrative: pt's Dexlansoprazole 60 mg cap is costs $855 for 3 month supply. Pt cannot afford it. Isthere an different medication that would not be so costly? Pt needs mag ox and oxybutynin sent [facility]. pending Pt is non compliant with checking her blood sugar. She has needed a new battery for sometime but never purchased one to replace it. Madisyn inquiring if pt needs to continue checking her BS? Please advise. Call back Madisyn with any advice or orders at [phone] documented in this encounter Plan of Treatment Upcoming Encounters Date Type Department Care Team (Late st Contact Info) Description 10/13/2024 12:40 PM EST [facility] [address] [place] [address] [place] [phone] Lilo Ba MD [address] [place] [address] [place] [phone] 10/25/2024 11:30 AM EST Office Visit Cardiology, [facility] [address] [place] [address] Francheska Ponce PA-C [address] [place] [address] 03/12/2025 2:00 PM EDT Office Visit Family Medicine [address] [place] [phone] Lilo Ba MD [address] [place] [address] [place] [phone] 03/26/2025 4:00 PM EDT Office Visit Cardiology, [facility] [address] [place] [address] Chace Peacock DO [address] [place] [address] Health Maintenance Due Date Last Done Comments [...]
--- OUTSIDE RECORDS SUMMARY | 2024-10-13 06:51 | External Medical Summary | Summary of Care ---
Author Name Unknown Organization [facility] Address [address] [place] [address] Phone [phone] Care Team Providers Care Sinker Winder Name Role Phone Unavailable Primary Care Provider Unavailabl e Reason for Visit * Reason Comments eRx-Medication Refill Encounter Details Date Type Department Care Team (Late st Contact Info) Description 09/21/2024 Refill Family Medicine [address] [phone] Chavo Ahn MD [address] [place] [address] [place] [phone] Acquired hypothyroidism Allergies Active Allergy Reactions Criticality Noted Date Comments Brassica Oleracea 05/17/2020 Other Reaction(s): Gas Crab (Diagnostic) 04/05/2018 Crab Extract 05/17/2020 Other Reaction(s): diarrhea Food (See Comments) 07/24/2015 Broccoli, beans, cauliflower - cause gas Grapefruit, oranges - cause bronchitis - positive skin test Grapefruit Extract 05/17/2020 Other Reaction(s): BRONCHITIS [place] Oil 05/17/2020 Other Reaction(s): BRONCHITIS Paroxetine Hydrochloride 04/03/2009 Penicillins 04/03/2009 Blisters on hands Peanut-Containing Drug Products Abdominal pain Medium 07/24/2015 Gas, bloating Phaseolus 01/10/2024 Other Reaction(s): Bloating, Gas also with green beans documented as of this encounter (statuses as of 09/22/2024) Medications Medication Sig Dispensed Refills Start Date End Date Status triamcinolone acetonide (ARISTOCORT) 0.1 % creamIndications:In trinsic [...] 30GIndications:DM type 2, 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% ([facility]) TEST BLOOD SUGAR ONCE DAILY DIRECTED DX E11.9 100 Each 3 4 Active OneTouch Verio In Vitro Strip (Glucose Blood)Indications:D M type 2, 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% ([facility]) Test blood sugar once daily [...] the morning. 90 Tablet 1 4 Active Magnesium Oxide -Mg [...] blood pressure less than 140/90,Atherosclero sis of [place] coronary artery of [place] heart without angina pectoris,Paroxysmal atrial fibrillation (HCC) Take 1 Tablet by mouth in the morning and 1 Tablet before bedtime. 180 Tablet 1 4 Active Montelukast Sodium 10 MG Oral Tablet (Singulair)Indicati ons:Other seasonal allergic rhinitis Take 1 Tablet by mouth at bedtime. 90 Tablet 1 4 Active Atorvastatin Calcium 20 MG Oral Tablet (Lipitor)Indication s:Atherosclerosis of [place] coronary artery of [place] heart without angina pectoris,Paroxysmal atrial fibrillation (HCC),Dyslipidemia, [...] bedtime. 90 Tablet 1 4 Active Nystatin [id number] UNIT/GM External CreamIndications:De rmatitis Apply topically to affected area 2 times a day. To affacted area for two weeks. 60 g 2 4 Active Eliquis 5 MG Oral Tablet (Apixaban)Indicatio ns:Paroxysmal atrial fibrillation (HCC) TAKE 1 TABLET BY MOUTH TWICE A DAY 180 Tablet 3 4 Active amLODIPine Besylate 10 MG Oral Tablet (Norvasc)Indication s:Benign hypertension with CKD (chronic kidney disease), stage II One daily 90 Tablet 1 4 Active hydrALAZINE HCl 25 MG Oral Tablet (Apresoline)Indicat ions:Benign hypertension with CKD (chronic kidney disease), stage II Take 1 Tablet by mouth in the morning and 1 Tablet before bedtime. 180 Tablet 1 4 Active Sodium Chloride 1 GM Oral Tablet Take 1 Tablet by mouth in the morning and 1 Tablet before bedtime. 180 Tablet 1 4 Active oxyBUTYnin Chloride ER 10 MG Oral Tablet Extended Release 24 Hour (Ditropan XL) Take 1 Tablet by mouth in the morning. 90 Tablet 1 4 Active Levothyroxine Sodium 100 MCG Oral Tablet (Levoxyl)Indication s:Acquired hypothyroidism TAKE 1 TABLET BY MOUTH EVERY DAY IN THE MORNING 90 Tablet 3 4 Active Levothyroxine Sodium 100 MCG Oral Tablet (Levoxyl)Indication s:Acquired hypothyroidism TAKE 1 TABLET BY MOUTH DAILY AT LEAST 30 MINUTES PRIOR TO BREAKFAST OR OTHER MEDICATION 90 Tablet 1 4 09/22/20 24 Discontinued documented as of this encounter (statuses as of 09/22/2024) Active Problems Problem Noted Date Diagnosed Date [...] ase with esophagitis 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 Atherosclerosis of [place] co ronary artery of [place] heart without angina pectoris Adjustment disorder with depressed mood documented as of this encounter (statuses as of 09/22/2024) Resolved Problems Problem Noted Date Diagnosed Date [...] persistent 09/23/2012 09/23/2012 Genetic Sleep Disorder Resea [facility] Other*[id number] 09/12/2012 06/25/2016 Obesity, Class II, BMI 35-39 [...] as of this encounter (statuses as of 09/22/2024) Immunizations Name Administration Dates Next Due COVID-19 mRNA, LNP-s, No Pre serve, 2-Dose Series (Moderna) 03/15/2021,02/16/2021 COVID-19, MRNA-LNP, 23-24, P F, 30 MCG/0.3 mL, 12 YRS AND ABOVE, IM (PFIZER-Comirnaty) 11/17/2023 COVID-19, MRNA-LNP, 24-25, P R, 30MCG/0.3ML, IM, 12YRS AND ABOVE (Pfizer-Comirnaty) 09/11/2024 COVID-19, mRNA, LNP-s, PF, B ooster, 100mcg/0.5mg [...] encounter Miscellaneous Notes * Telephone Encounter - Lashaun Murphy [facility] - 09/22/2024 4:42 PM EDTSigned Prescriptions: Disp Refills Levothyroxine Sodium 100 MCG Oral Tablet (*90 Tab*3 Sig: TAKE 1 TABLET BY MOUTH EVERY DAY IN THE MORNINGAuthorizing Provider: CHAVO AHN User: LASHAUN MURPHY documented in this encounter Plan of Treatment Upcoming Encounters Date Type Department Care Team (Late st Contact Info) Description 10/13/2024 12:40 PM EST Office Visit Family [address] [place] [phone] Lilo Ba MD [address] [place] [address] [place] [phone] 10/25/2024 11:30 AM EST Office Visit Cardiology, [facility] [address] [place] [address] Francheska Ponce PA-C [address] [place] [address] 03/12/2025 2:00 PM EDT Office Visit Family Medicine [address] [place] [phone] Lilo Ba MD [address] [place] [address] [place] [phone] 03/26/2025 4:00 PM EDT Office Visit Cardiology, [facility] [address] [place] [address] Chace Peacock, [address] [place] [address] Health Maintenance Due Date Last Done Comments [...] as of this encounter Visit Diagnoses Diagnosis Acquired hypothyroidism Unspecified hypothyroidism documented in this encounter
--- OUTSIDE RECORDS SUMMARY | 2024-10-13 06:51 | External Medical Summary | Summary of Care ---
Author Name Unknown Organization [facility] Address [address] [place] [address] Phone [phone] Care Team Providers Care Well Reactivator Operator Name Role Phone Unavailable Primary Care Provider Unavailabl e Reason for Visit * Reason Comments eRx-Medication Refill Encounter Details Date Type Department Care Team (Late st Contact Info) Description 09/21/2024 Refill Family Medicine [address] [phone] Linda Smith MD [address] [place] [address] [place] [phone] Allergies Active Allergy Reactions Criticality Noted Date Comments Brassica Oleracea 05/17/2020 Other Reaction(s): Gas Crab (Diagnostic) 04/05/2018 Crab Extract 05/17/2020 Other Reaction(s): diarrhea Food (See Comments) 07/24/2015 Broccoli, beans, cauliflower - cause gas Grapefruit, oranges - cause bronchitis - positive skin test Grapefruit Extract 05/17/2020 Other Reaction(s): BRONCHITIS [place] Oil 05/17/2020 Other Reaction(s): BRONCHITIS Paroxetine Hydrochloride 04/03/2009 Penicillins 04/03/2009 Blisters on hands Peanut-Containing Drug Products Abdominal pain Medium 07/24/2015 Gas, bloating Phaseolus 01/10/2024 Other Reaction(s): Bloating, Gas also with green beans documented as of this encounter (statuses as of 09/23/2024) Medications Medication Sig Dispensed Refills Start Date [...] blood pressure less than 140/90,Atheroscleros is of [place] coronary artery of [place] heart without angina pectoris,Paroxysmal atrial fibrillation (HCC) Take 1 Tablet by mouth in the morning and 1 Tablet before bedtime. 180 Tablet 04/21/2024 Active Montelukast Sodium 10 MG Oral Tablet (Singulair)Indicatio ns:Other seasonal allergic rhinitis Take 1 Tablet by mouth at bedtime. 90 Tablet 04/21/2024 Active Atorvastatin Calcium 20 MG Oral Tablet (Lipitor)Indications :Atherosclerosis of [place] coronary artery of [place] heart without angina pectoris,Paroxysmal atrial fibrillation (HCC),Dyslipidemia, [...] bedtime. 90 Tablet 1 06/14/2024 Active Nystatin [id number] UNIT/GM External CreamIndications:Jeffry matitis Apply topically to [...] before bedtime. 180 Tablet 1 08/10/2024 Active Sodium Chloride 1 GM Oral Tablet Take 1 Tablet by mouth in the morning and 1 Tablet before bedtime. 180 Tablet 1 09/13/2024 Active oxyBUTYnin Chloride ER 10 MG Oral Tablet Extended Release 24 Hour (Ditropan XL) Take 1 Tablet by mouth in the morning. 90 Tablet 1 09/13/2024 Active Levothyroxine Sodium 100 MCG Oral Tablet (Levoxyl)Indications :Acquired hypothyroidism TAKE 1 TABLET BY MOUTH EVERY DAY IN THE MORNING 90 Tablet 3 09/22/2024 Active documented as of this encounter (statuses as of 09/23/2024) Active Problems Problem Noted Date Diagnosed Date [...] ase with esophagitis 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 Atherosclerosis of [place] co ronary artery of [place] heart without angina pectoris Adjustment disorder with depressed mood documented as of this encounter (statuses as of 09/23/2024) Resolved Problems Problem Noted Date Diagnosed Date [...] 09/23/2012 Genetic Sleep Disorder Resea [facility] Other*[id number] 09/12/2012 06/25/2016 Obesity, Class II, BMI 35-39 [...] as of this encounter (statuses as of 09/23/2024) Immunizations Name Administration Dates Next Due COVID-19 [...] encounter Miscellaneous Notes * Telephone Encounter - Johanna Navarro [facility] - 09/23/2024 10:12 AM EDT Refused Prescriptions: Disp Refills Sodium Chloride 1 GM Oral Tablet 60 Tab*2 Sig: TAKE 1 TABLET BYMOUTH TWICE A DAYRefused By: JOHANNA NAVARROReason for Refusal: Duplicate Request documented in this encounter Plan of Treatment Upcoming Encounters Date Type Department Care Team (Late st Contact Info) Description 10/13/2024 12:40 PM EST Office Visit Family Medicine [address] [phone] Lilo Ba MD [address] [place] [address] [place] [phone] 10/25/2024 11:30 AM EST Office Visit Cardiology, [facility] [address] [place] [address] Francheska Ponce PA-C [address] [place] [address] 03/12/2025 2:00 PM EDT Office Visit Family Medicine [address] [phone] Lilo Ba MD [address] [place] [address] [place] [phone] 03/26/2025 4:00 PM EDT Office Visit Cardiology, [facility] [address] [place] [address] Chace Peacock, [address] [place] [address] Health Maintenance Due Date Last Done Comments [...]
--- OUTSIDE RECORDS SUMMARY | 2024-10-13 06:51 | External Medical Summary | Summary of Care ---
Author Name Unknown Organization [facility] Address [address] [facility] [address] Phone [phone] Care Team Providers Care Dredge Pump Operator Name Role Phone Unavailable Primary Care Provider Unavailabl e Reason for Visit * Reason Comments eRx-Medication Refill Encounter Details Date Type Department Care Team (Late st Contact Info) Description 09/28/2024 Refill Family Medicine [address] [phone] Linda Smith MD [address] [place] [address] [place] [address] Allergies Active Allergy Reactions Criticality Noted Date Comments Brassica Oleracea 05/17/2020 Other Reaction(s): Gas Crab (Diagnostic) 04/05/2018 Crab Extract 05/17/2020 Other Reaction(s): diarrhea Food (See Comments) 07/24/2015 Broccoli, beans, cauliflower - cause gas Grapefruit, oranges - cause bronchitis - positive skin test Grapefruit Extract 05/17/2020 Other Reaction(s): BRONCHITIS [place] Oil 05/17/2020 Other Reaction(s): BRONCHITIS Paroxetine Hydrochloride [...] Blood)Indications:DM type 2, 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% ([facility]) Test blood sugar once daily as [...] blood pressure less than 140/90,Atheroscleros is of [place] coronary artery of [place] heart without angina pectoris,Paroxysmal atrial fibrillation (HCC) Take 1 Tablet by mouth in the morning and 1 Tablet before bedtime. 180 Tablet 04/21/2024 Active Montelukast Sodium 10 MG Oral Tablet (Singulair)Indicatio ns:Other seasonal allergic rhinitis Take 1 Tablet by mouth at bedtime. 90 Tablet 1 04/21/2024 Active Atorvastatin Calcium 20 MG Oral Tablet (Lipitor)Indications :Atherosclerosis of [place] coronary artery of [place] heart without angina pectoris,Paroxysmal atrial fibrillation (HCC),Dyslipidemia, [...] bedtime. 90 Tablet 1 06/14/2024 Active Nystatin [id number] UNIT/GM External CreamIndications:Jeffry matitis Apply topically to [...] before bedtime. 180 Tablet 1 09/13/2024 Active Levothyroxine Sodium 100 [...] the tablet. 30 Tablet 5 09/28/2024 Active documented as of this encounter (statuses [...] ase with esophagitis 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 Atherosclerosis of [place] co ronary artery of [place] heart without angina pectoris Adjustment disorder with [...] persistent 09/23/2012 09/23/2012 Genetic Sleep Disorder Resea [facility] Other*[id number] 09/12/2012 06/25/2016 Obesity, Class II, BMI 35-39 [...] 10/13/2024 12:40 PM EST Office Visit Family [address] [phone] Lilo Ba MD [address] [place] [address] [place] [phone] 10/25/2024 11:30 AM EST Office Visit Cardiology, [facility] [address] [place] [address] Francheska Ponce PA-C [address] [place] [address] 03/12/2025 2:00 PM EDT Office Visit Family [address] [phone] Lilo aB MD [address] [place] [address] [place] [phone] 03/26/2025 4:00 PM EDT Office Visit Cardiology, [facility] [address] [place] [address] Chace Peacock, [address] [place] [address] Health Maintenance Due Date Last Done Comments [...]
--- OUTSIDE RECORDS SUMMARY | 2024-10-13 06:52 | External Medical Summary ---
Author Name Unknown Address Unknown Organization K01:[facility] [address] [place] [address] Laboratory Report Ordering Provider Test Date Status WILFRED CRAWLEY 09/11/2024 14:15:41 Final Observation Date Value Abnormality Reference (Units ) Status BUN 09/11/2024 14:15:41 15 6-20 (mg/dL) Final Creatinine 09/11/2024 14:15:41 0.7 0.5-1.0 (mg/dL) Final Glomerular filtration rate/1.73 sq M.predicted [Volume Rate/Area] in Serum, Plasma or Blood by Creatinine-based formula (CKD-EPI) 09/11/2024 14:15:41 86 >=60 (mL/min) Final eGFR is calculated based on the CKD-EPI 2020 equation. Sodium 09/11/2024 14:15:41 142 135-146 (m mol/L) Final Potassium 09/11/2024 14:15:41 4.6 3.5-5.1 (m mol/L) Final Cl 09/11/2024 14:15:41 105 98-107 (mm ol/L) Final CO2 09/11/2024 14:15:41 26 22-32 (mmo l/L) Final Anion gap 09/11/2024 14:15:41 11 7-15 (mmol /L) Final Glucose 09/11/2024 14:15:41 120 70-120 (mg /dL) Final Calcium 09/11/2024 14:15:41 10.0 8.4-10.2 ( mg/dL) Final Performing Location [facility] [address] [place] [address]
--- OUTSIDE RECORDS SUMMARY | 2024-10-13 06:52 | External Medical Summary | Summary of Care ---
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 Name Role Phone Unavailable Primary Care Provider Unavailabl e Reason for Visit * Reason Onset Date Comments Home Health 08/09/2024 Encounter Details Date Type Department Care Team (Late st Contact Info) Description 08/09/2024 Telephone Family Medicine [address] [phone] Linda Smith MD [address] [place] [address] [place] [address] Home Health Allergies Active Allergy Reactions Criticality Noted Date Comments Brassica Oleracea 05/17/2020 Other Reaction(s): Gas Crab (Diagnostic) 04/05/2018 Crab Extract 05/17/2020 Other Reaction(s): diarrhea Food (See Comments) 07/24/2015 Broccoli, beans, cauliflower - cause gas Grapefruit, oranges - cause bronchitis - positive skin test Grapefruit Extract 05/17/2020 Other Reaction(s): BRONCHITIS [place] Oil 05/17/2020 Other Reaction(s): BRONCHITIS Paroxetine Hydrochloride 04/03/2009 Penicillins 04/03/2009 Blisters on hands Peanut-Containing Drug Products Abdominal pain Medium 07/24/2015 Gas, bloating Phaseolus 01/10/2024 Other Reaction(s): Bloating, Gas also with green beans documented as of this encounter (statuses as of 08/17/2024) Medications Medication Sig Dispensed Refills Start Date [...] Blood)Indications:DM type 2, 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% ([facility]) Test blood sugar once [...] in the morning. 90 Capsule 04/21/2024 Active oxyBUTYnin Chloride ER 10 MG [...] in the morning. 100 Tablet 04/21/2024 Active Levothyroxine Sodium 100 MCG Oral [...] blood pressure less than 140/90,Atheroscleros is of [place] coronary artery of [place] heart without angina pectoris,Paroxysmal atrial fibrillation (HCC) Take 1 Tablet by mouth in the morning and 1 Tablet before bedtime. 180 Tablet 04/21/2024 Active Montelukast Sodium 10 MG Oral Tablet (Singulair)Indicatio ns:Other seasonal allergic rhinitis Take 1 Tablet by mouth at bedtime. 90 Tablet 1 04/21/2024 Active Atorvastatin Calcium 20 MG Oral Tablet (Lipitor)Indications :Atherosclerosis of [place] coronary artery of [place] heart without angina pectoris,Paroxysmal atrial fibrillation (HCC),Dyslipidemia, [...] bedtime. 90 Tablet 1 06/14/2024 Active Nystatin 251197 UNIT/GM External CreamIndications:Jeffry matitis Apply topically to affected area 2 times a day. To affacted area for two weeks. 60 g 2 07/12/2024 Active Eliquis 5 MG Oral Tablet (Apixaban)Indication s:Paroxysmal atrial fibrillation (HCC) TAKE 1 TABLET BY MOUTH TWICE A DAY 180 Tablet 3 07/18/2024 Active documented as of this encounter (statuses as of 08/17/2024) Active Problems Problem Noted Date Diagnosed Date [...] ase with esophagitis 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 Atherosclerosis of [place] co ronary artery of [place] heart without angina pectoris Adjustment disorder with depressed mood documented as of this encounter (statuses as of 08/17/2024) Resolved Problems Problem Noted Date Diagnosed Date [...] 09/23/2012 09/23/2012 Genetic Sleep Disorder Resea [facility] Other*[id number] 09/12/2012 06/25/2016 Obesity, Class II, BMI 35-39 [...] as of this encounter (statuses as of 08/17/2024) Immunizations Name Administration Dates Next Due COVID-19 mRNA, LNP-s, No Pre serve, 2-Dose Series (Moderna) 03/15/2021,02/16/2021 COVID-19, MRNA-LNP, 23-24, P F, 30 MCG/0.3 mL, 12 YRS AND ABOVE, IM ([facility]) 11/17/2023 COVID-19, mRNA, LNP-s, PF, B ooster, [...] lent, No Preserve, IM 10/12/2016 Seasonal Influenza, Trivalen t, (IIV3), with Preserv, (Fluzone) 09/12/2015,08/14/2014,11/14/2013,10/06,09/01/2011,08/28/2010 TDAP (age 10 and older)(Boostrix) 09/19/2017 [...] encounter Miscellaneous Notes * Telephone Encounter - Marylin Gruber RN - 08/17/2024 9:23 AM EDT Note faxed * Telephone Encounter - Per Vee LPN - 08/09/2024 1:47 PM EDT Admission/Start of Care Admission/Start of Care: Mary Grace NUGENT, Calling from: Giuliano Patient was Admitted to: [facility], for: Syncopal event likely vasovagal secondary to pain from 08/04/2024 to 08/08/2024 Referral ordered by: Hospital attending Referral received for: Correction, PT, and OT Planned start of care date:Yes, Date 08/09/2024 Start of care completed on: 08/09/2024 Report/Concerns of:Medication Related Symptoms: See Narrative Vitals: T-97.2 P-58 RR-18 BP-124/58 SP O2-98% RA Lung sounds-clear Weight-136 LB- patient reported Blood sugar- pt does not check BS Narrative: Mary Grace from [facility] calling in with Medication concerns. Patient was previously on Metoprolol 25 mg BID, ASA 81 mg Daily. On hospital discharge medication list has Metoprolol 12.5 mg BID and Amlodipine 10 mg daily was added. NO ASA listed on hospital discharge record. Patient is taking Eliquis. Nursing will go back out to update pill box on 08/11/2024. Please fax updated med list to after office visit tomorrow. Next Nursing visit(s) on 08/14/2024 They will call with any updates or additional concerns from the upcoming visit. Last Office Visit: 07/12/2024 Has patient been scheduled or seen in the office for a follow up visit: Yes- on08/10/2024 Advised that orders will be signed by and to fax to the office for signature. Call back Yudelka with advice or orders at [phone] Please fax or call orders to [facility] documented in this encounter Plan of Treatment Upcoming Encounters Date Type Department Care Team (Late st Contact Info) Description 09/11/2024 2:20 PM EDT Office Visit Family Medicine [address] [phone] Rolanda Villalpando PA-C [address] [place] [address] [place] [id number] 10/25/2024 11:30 AM EST Office Visit Cardiology, [facility] [address] [place] [address] Francheska Ponce PA-C [address] [place] [address] 03/26/2025 4:00 PM EDT Office Visit Cardiology, [facility] [address] [place] [address] Chace Peacock DO [address] [place] [address] Health Maintenance Due Date Last Done Comments Zoster Vaccines (1 of 2) 1989 Depression Screening 04/29/2021 04/29/2020 Diabetic Foot Exam 04/28/2024 04/28/2023, 0 03/12/2022, 04/01/2021, Additional history exists HbA1c 05/18/2024 11/17/2023, 03/31, 11/17/2022, Additional history exists COVID-19 Vaccine ( season) 2024 11/17/2023, 12/02/2021, 03/15/2021, Additional history exists Influenza Vaccine (FLU shot) [...]
--- OUTSIDE RECORDS SUMMARY | 2024-10-13 06:52 | External Medical Summary ---
Author Name Unknown Address Unknown Organization [id number]:[facility]ORY [facility] - [address] [place] [address] Laboratory Report Ordering Provider Test Date Status WILFRED CRAWLEY 09/11/2024 14:15:41 Final Observation Date Value Abnormality Reference (Units ) Status TSH 09/11/2024 14:15:41 0.34 0.27-4.20 (uIU/mL) Final Performing Location [facility] - [address] [place] [address]
--- OUTSIDE RECORDS SUMMARY | 2024-10-13 06:52 | External Medical Summary ---
Author Name Unknown Address Unknown Organization [id number]:[facility] [place] [address] [place] [address] Laboratory Report Ordering Provider Test Date Status WILFRED CRAWLEY 09/11/2024 14:15:41 Final Observation Date Value Abnormality Reference (Units ) Status Triglyceride 09/11/2024 14:15:41 128 <=174 ( mg/dL) Final Triglyceride Reference Range s (mg/dL):
<150 Acceptable
150-174 Borderline high
175-499 High
>=500 Very high Cholesterol 09/11/2024 14:15:41 136 <200 (mg /dL) Final Total Cholesterol Reference Ranges (mg/dL):
<200 Desirable
200-239 Borderline high
>=240 High HDL 09/11/2024 14:15:41 50 >49 (mg/dL ) Final HDL Cholesterol Reference Ra nges (mg/dL):
>=60 High (Desirable)
<50 Low (Undesirable) For Females
<40 Low (Undesirable) For Males NON-HDL CHOLESTEROL 09/11/2024 14:15:41 86 <=159 (mg/dL) Final Non-HDL Cholesterol Referenc e Range (mg/dL):
<100 Target level for high risk ASCVD patient
<130 Optimal for general population
130-159 Near optimal for general population
160-189 Borderline High
190-219 High
>=220 Very High LDL, (calculated) 09/11/2024 14:15:41 60 <= 129 (mg/dL) Final LDL Cholesterol Reference Ra nges (mg/dL):
<70 Target level for high risk ASCVD patient
<100 Optimal for general population
100-129 Near optimal for general population
130-159 Borderline high
160-189 High
>=190 Very high Performing Location LABORATORY [facility] - [address] [facility] [address]
--- OUTSIDE RECORDS SUMMARY | 2024-10-13 06:52 | External Medical Summary | Summary of Care ---
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); DM type 2, 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% ([facility]) Allergies Active Allergy Reactions Criticality Noted Date Comments Brassica Oleracea 05/17/2020 Other Reaction(s): Gas Crab (Diagnostic) 04/05/2018 Crab Extract 05/17/2020 Other Reaction(s): diarrhea Food (See Comments) 07/24/2015 Broccoli, beans, cauliflower - cause gas Grapefruit, oranges - cause bronchitis - positive skin test Grapefruit Extract 05/17/2020 Other Reaction(s): BRONCHITIS [place] Oil 05/17/2020 Other Reaction(s): BRONCHITIS Paroxetine Hydrochloride 04/03/2009 Penicillins 04/03/2009 Blisters on hands Peanut-Containing Drug Products Abdominal pain Medium 07/24/2015 Gas, bloating Phaseolus 01/10/2024 Other Reaction(s): Bloating, Gas also with green beans documented as of this encounter (statuses as of 09/11/2024) Medications Medication Sig Dispensed Refills Start Date [...] < 7.5% ([facility]) TEST BLOOD SUGAR ONCE DAILY DIRECTED DX E11.9 100 Each 3 01/03/2024 Active OneTouch Verio In Vitro Strip (Glucose Blood)Indications:DM type 2, 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% ([facility]) Test blood sugar once daily as directed; [...] blood pressure less than 140/90,Atheroscleros is of [place] coronary artery of [place] heart without angina pectoris,Paroxysmal atrial fibrillation (HCC) Take 1 Tablet by mouth in the morning and 1 Tablet before bedtime. 180 Tablet 1 04/21/2024 Active Montelukast Sodium 10 MG Oral Tablet (Singulair)Indicatio ns:Other seasonal allergic rhinitis Take 1 Tablet by mouth at bedtime. 90 Tablet 1 04/21/2024 Active Atorvastatin Calcium 20 MG Oral Tablet (Lipitor)Indications :Atherosclerosis of [place] coronary artery of [place] heart without angina pectoris,Paroxysmal atrial fibrillation (HCC),Dyslipidemia, [...] bedtime. 90 Tablet 1 06/14/2024 Active Nystatin [id number] UNIT/GM External CreamIndications:Jeffry matitis Apply topically to [...] before bedtime. 180 Tablet 1 08/10/2024 Active documented as of this encounter (statuses as of 09/11/2024) Active Problems Problem Noted Date Diagnosed Date [...] ase with esophagitis 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 Atherosclerosis of [place] co ronary artery of [place] heart without angina pectoris Adjustment disorder with depressed mood documented as of this encounter (statuses as of 09/11/2024) Resolved Problems Problem Noted Date Diagnosed Date [...] 09/23/2012 Genetic Sleep Disorder Resea [facility] Other*[id number] 09/12/2012 06/25/2016 Obesity, Class II, BMI 35-39 [...] as of this encounter (statuses as of 09/11/2024) Immunizations Name Administration Dates Next Due COVID-19 [...] 10/13/2024 12:40 PM EST Office Visit Family [address] [phone] Lilo Ba MD [address] [place] [address] [place] [phone] 10/25/2024 11:30 AM EST Office Visit Cardiology, [facility] [address] [place] [address] Francheska Ponce PA-C [address] [place] [phone] 03/12/2025 2:00 PM EDT Office Visit Family [address] [phone] Lilo Ba MD [address] [place] [address] [place] [phone] 03/26/2025 4:00 PM EDT Office Visit Cardiology [facility] [address] [place] [address] Chace Peacock DO [address] [place] [phone] Pending Results Name Type Priority Associated Diagnoses Date /Time BASIC METABOLIC PANEL Lab Routine Benign hypertension with CKD (chronic kidney disease), stage II 09/11/2024 2:15 PM EDT TSH WITH FREE T4 IF INDICATED Lab Routine Acquired hypothyroidism 09/11/2024 2:15 PM EDT CBC WITH WBC DIFFERENTIAL AND ANEMIA REFLEX WORKUP Lab Routine Benign hypertension with CKD (chronic kidney disease), stage II 09/11/2024 2:15 PM EDT LIPID PANEL WITH DIRECT LDL IF TG IS HIGH Lab Routine 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) 09/11/2024 2:15 PM EDT HEMOGLOBIN A1C Lab Routine DM type 2, 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% (HCC) 09/11/2024 2:15 PM EDT ANEMIA CBC Lab Routine Benign hypertension with CKD (chronic kidney disease), stage II 09/11/2024 2:15 PM EDT DIFFERENTIAL, AUTOMATED Lab Routine Benign hypertension with CKD (chronic kidney disease), stage II 09/11/2024 2:15 PM EDT ANEMIA REFLEX CHEMISTRY HOLD Lab Routine Benign hypertension with CKD (chronic kidney disease), stage II 09/11/2024 2:15 PM EDT Health Maintenance Due Date Last Done Comments Zoster Vaccines (1 of 2) 1989 Depression Screening 04/29/2021 04/29/2020 Diabetic Foot Exam 04/28/2024 04/28/2023, 0 03/12/2022, 04/01/2021, Additional history exists HbA1c 05/18/2024 11/17/2023, 03/31, 11/17/2022, Additional history exists Diabetic Eye Exam 09/03/2024 09/03/2023, , 09/03/2023, Additional history exists Albumin/Creatinine Ratio 11/17/20242 023, [...] IV, or unspecified Acquired hypothyroidism Unspecified hypothyroidism 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
--- OUTSIDE RECORDS SUMMARY | 2024-10-13 06:52 | External Medical Summary | Summary of Care ---
Author Name Unknown Organization [facility] Address [address] [place] [address] Phone [phone] Care Team Providers Care Author Agent Name Role Phone Unavailable Primary Care Provider Unavailabl e Reason for Visit * Reason Comments Hospital Follow-Up [facility] discharge 08/05 Encounter Details Date Type Department Care Team (Late st Contact Info) Description 08/10/2024 11:40 AM EDT Office Visit Family Medicine [address] [phone] Kumar Salinas MD [address] [place] [address] [place] [address] Vasovagal syncope*; Benign hypertension with CKD (chronic kidney disease), stage II; DM type 2, 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% (HCC); Paroxysmal atrial fibrillation (HCC); Dyslipidemia, goal LDL below 100 Allergies Active Allergy Reactions Criticality Noted Date Comments Brassica Oleracea 05/17/2020 Other Reaction(s): Gas Crab (Diagnostic) 04/05/2018 Crab Extract 05/17/2020 Other Reaction(s): diarrhea Food (See Comments) 07/24/2015 Broccoli, beans, cauliflower - cause gas Grapefruit, oranges - cause bronchitis - positive skin test Grapefruit Extract 05/17/2020 Other Reaction(s): BRONCHITIS [place] Oil 05/17/2020 Other Reaction(s): BRONCHITIS Paroxetine Hydrochloride 04/03/2009 Penicillins 04/03/2009 Blisters on hands Peanut-Containing Drug Products Abdominal pain Medium 07/24/2015 Gas, bloating Phaseolus 01/10/2024 Other Reaction(s): Bloating, Gas also with green beans documented as of this encounter (statuses as of 08/10/2024) Medications Medication Sig Dispensed Refills Start Date [...] 2, 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% ([facility]) TEST BLOOD SUGAR ONCE DAILY DIRECTED DX E11.9 100 Each 3 4 Active OneTouch Verio In Vitro Strip (Glucose Blood)Indications: DM type 2, 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% ([facility]) Test blood sugar once daily as [...] the morning. 90 Capsule 3 4 Active oxyBUTYnin Chloride ER 10 MG Oral Tablet Extended Release 24 Hour (Ditropan XL) Take 1 Tablet by mouth in the morning. 90 Tablet 1 4 Active Sodium Chloride 1 GM Oral Tablet Take 1 Tablet by mouth in the morning and 1 Tablet before bedtime. 180 Tablet 1 4 Active Vitamin B-12 1000 MCG Oral [...] the morning. 100 Tablet 3 4 Active Levothyroxine Sodium 100 MCG Oral Tablet (Levoxyl)Indicatio ns:Acquired hypothyroidism TAKE 1 TABLET BY MOUTH DAILY AT LEAST 30 MINUTES PRIOR TO BREAKFAST OR OTHER MEDICATION 90 Tablet 1 4 Active Losartan Potassium 100 MG Oral [...] blood pressure less than 140/90,Atheroscler osis of pala coronary artery of pala heart without angina pectoris,Paroxysma l atrial fibrillation (HCC) Take 1 Tablet by mouth in the morning and 1 Tablet before bedtime. 180 Tablet 1 4 Active Montelukast Sodium 10 MG Oral Tablet (Singulair)Indicat ions:Other seasonal allergic rhinitis Take 1 Tablet by mouth at bedtime. 90 Tablet 1 4 Active Atorvastatin Calcium 20 MG Oral Tablet (Lipitor)Indicatio ns:Atherosclerosis of pala coronary artery of pala heart without angina pectoris,Paroxysma l atrial fibrillation [...] bedtime. 90 Tablet 1 4 Active Nystatin 107257 UNIT/GM External CreamIndications:D ermatitis Apply topically to [...] before bedtime. 180 Tablet 1 4 Active MEDICAL INSTRUCTIONS Use as directed. CPAP during night as ordered 024 Discontinued(En d of Procedure) Azithromycin 250 MG Oral Tablet (Zithromax) Take 2 tabs by mouth on the first day, then 1 tab daily on days two through five 6 Tablet 4 024 Discontinued(En d of Procedure) NIFEdipine ER Osmotic Release 90 MG Oral Tablet Extended Release 24 Hour (Procardia XL)Indications:Terry ign hypertension with CKD (chronic kidney disease), stage II,Primary hypertension TAKE 1 TABLET BY MOUTH EVERY DAY IN THE MORNING 90 Tablet 1 4 024 Discontinued(Me dication/Dose Changed) Sulfamethoxazole-T rimethoprim 800-160 MG Oral Tablet (Bactrim DS)Indications:Dys uria Take 1 Tablet by mouth in the morning and 1 Tablet before bedtime. Do all this for 5 days. Until gone. 10 Tablet 4 024 Discontinued(En d of Procedure) amLODIPine Besylate 5 MG Oral Tablet (Norvasc) Take 2 Tablets by mouth in the morning. 4 024 Discontinued hydrALAZINE HCl 25 MG Oral Tablet (Apresoline) Take 1 Tablet by mouth in the morning and 1 Tablet before bedtime. 4 024 Discontinued(Re fill) documented as of this encounter (statuses as of 08/10/2024) Active Problems Problem Noted Date Diagnosed Date [...] ase with esophagitis 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 Atherosclerosis of pala co ronary artery of pala heart without angina pectoris Adjustment disorder with depressed mood documented as of this encounter (statuses as of 08/10/2024) Resolved Problems Problem Noted Date Diagnosed Date [...] persistent 09/23/2012 09/23/2012 Genetic Sleep Disorder [facility] Other*[id number] 09/12/2012 06/25/2016 Obesity, Class II, BMI 35-39 [...] as of this encounter (statuses as of 08/10/2024) Immunizations Name Administration Dates Next Due COVID-19 mRNA, LNP-s, No Pre serve, 2-Dose Series (Moderna) 03/15/2021,02/16/2021 COVID-19, MRNA-LNP, 23-24, P F, 30 MCG/0.3 mL, 12 YRS AND ABOVE, IM ([employer]-Comirnaty) 11/17/2023 COVID-19, mRNA, LNP-s, PF, B ooster, [...] Sign Reading Time Taken Comments Blood Pressure 132/52 08/10/2024 11:42 AM EDT Pulse 59 08/10/2024 11:42 AM EDT Temperature 36 C (96.8 F) 08/10/2024 11:42 AM EDT Respiratory Rate - - Oxygen Saturation 99% 08/10/2024 11:42 AM EDT Inhaled Oxygen Concentration - - Weight 63.2 kg (139 lb 4.8 oz) 08/10/2024 11:42 AM EDT Height - - Body Mass Index 27.21 07/12/2024 1:45 PM EDT documented in this encounter Progress Notes * Kumar Salinas MD - 08/10/2024 11:39 AM EDT Yudelka was admitted to [facility] 08/04 to 08/08 for syncope, dehydration, hypomagnesia, chest pain, vomiting. She was hypoxic at first and bradycardic yet hypertensive so nifedipine was stopped, Norvasc and hydralazine started and that helped. No mre syncope which was felt to be vasovagal after eating. PT and OT involved. Bowels improved as she was constipated. She has lost `16 pounds since Dec. She feels she is eating ok. Uses a wheeled walker. Patient Active Problem List Diagnosis Acquired hypothyroidism Gastroesophageal reflux disease with esophagitis 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 Atherosclerosis of pala coronary artery of pala heart without angina pectoris Primary hypertension ADVANCE DIRECTIVE INFORMATION Sleep apnea, obstructive POAG (primary open-angle glaucoma) Adjustment disorder with depressed mood DDD (degenerative disc disease), cervical CURTIS (stress urinary incontinence, female) Paroxysmal atrial fibrillation (HCC) Dyslipidemia, goal LDL below 100 Mild persistent asthma without complication Rhinitis, nonallergic DM type 2, 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% ([facility]) BMI 31.0-31.9,adult Type 2 diabetes mellitus with other diabetic ophthalmic complication ([facility]) Benign hypertension with CKD (chronic kidney disease), stage II Central stenosis of spinal canal Past Medical History: Diagnosis Date Acquired hypothyroidism Acute blood loss anemia 08/22/2019 hgb 7.7, given 2 units Adjustment disorder with depressed mood Allergic rhinitis Asthma Atrial fibrillation ([facility]) 01/08/2013 [facility] Benign hypertension with CKD (chronic kidney disease) stage III ([facility]) Benign hypertension with CKD (chronic kidney disease), stage II 04/01/2021 BMI 36.0-36.9,adult Calcium deposit in bursa, unspecified hip Cataract, nuclear sclerotic, both eyes Central stenosis of spinal canal 06/11/2021 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 Coronary atherosclerosis of pala coronary artery DM type 2, goal HbA1c < 7% ([facility]) 05/07/2018 hgba1c 7.3 Dyslipidemia, goal LDL [...] or female climacteric states Vasovagal syncope 10/24/2023 [facility] Past Surgical History: Procedure Laterality Date BREAST LESION,OTHER,EXCISION Bilateral cysts removed in her 20s COLONOSCOPY, REMOVE LESION, W/SNARE 04/23/2020 5 mm sessile adenomatous polyp transverse colon, large internal hemorrhoids CORONARY ARTERY DILATION, BALLOON 01/30/[address] ABDOMEN/PELVIS 04/04/2013 acute distal sigmoid colon [...] RIGHT AND LEFT KNEE ARTHROSCOPY/MENISCECTOMY 09/2013 left, [facility] LAPAROSCOPY;APPENDECTOMY 2006 MAMMOGRAM SCREENING BILATERAL Bilateral 07/31/2020 [...] REMOVE CATARACT, INSERT LENS PROSTH Left 05/02/2013 [facility] REMOVE CATARACT, INSERT LENS PROSTH Right 05/25/2013 [facility] REPAIR RUPTURED ROTATOR CUFF, CHRON Left 09/12/2015 Dr De Leon [facility], rotator cuff and biceps REVISE UPPER EYELID TENDON SHEATH INCISION, FINGER right ring finger VASC DUPLEX CAROTID BILAT 06/08/2011 no blockage VASC DUPLEX VENOUS LE BILAT 03/02/2013 noDVT bilaterally VASC DUPLEX VENOUS LE BILAT 09/20/2014 No DVT, no hematoma . Review of patient's allergies indicates: Allergen Reactions Peanut-Containing Drug Products Abdominal pain Gas, bloating Brassica Oleracea Other Reaction(s): Gas Crab (Diagnostic) Crab Extract Other Reaction(s): diarrhea Food (See Comments) Broccoli, beans, cauliflower - cause gas Grapefruit, oranges - cause bronchitis - positive skin test Grapefruit Extract Other Reaction(s): BRONCHITIS [place] Oil Other Reaction(s): BRONCHITIS Paxil [Paroxetine Hydrochloride] Pcn [Penicillins] Blisters on hands Phaseolus Other Reaction(s): Bloating, Gas also with green beans Social History Socioeconomic History Marital status: Spouse [...] History Narrative 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, 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[employer] Social Determinants of Health Financial Resource Strain: Low Risk (03/30/2023) [facility] Overall Financial Resource Strain (CARDIA) Difficulty of Paying Living Expenses: Not hard at all Food Insecurity: No Food Insecurity (07/24/2019) Hunger Vital Sign Worried About Running Out of Food in the Last Year: Never true Ran Out of Food in the Last Year: Never true Transportation Needs: No Transportation Needs (03/30/2023) Received from [facility], [facility] PRAPARE - Transportation Lack of Transportation (Medical): No Lack of Transportation (Non-Medical): No Social Connections: Unknown (05/16/2024) Social Connections How often do you feel lonely or isolated from those around you? (Adult - for ages 18 years and over): Not on file Housing Stability: Not on file Current Outpatient Medications Medication Sig Dispense Refill amLODIPine Besylate 5 MG Oral Tablet (Norvasc) Take 2 Tablets by mouth in the morning. hydrALAZINE HCl 25 MG Oral Tablet (Apresoline) Take 1 Tablet by mouth in the morning and 1 Tablet before bedtime. MEDICAL INSTRUCTIONS Use as directed. CPAP during [...] 1 PUFF BEFORE BEDTIME. 180 Each 3 guaiFENesin ER 600 MG Oral Tablet Extended [...] DAY IN THE MORNING 90 Tablet 1 Nystatin 555602 UNIT/GM External Cream Apply topically to affected area 2 times a day. To affacted area for two weeks. 60 g 2 Eliquis 5 MG Oral Tablet (Apixaban) TAKE 1 TABLET BY MOUTH TWICE A DAY 180 Tablet 3 No current facility-administered medications for this visit. Lab Results Component Value Date/Time TSH - [...] (H) 01/23/2019 02:34 PM O: Blood pressure 132/52, pulse 59, temperature 36 C (96.8 F), weight 63.2 kg (139 lb 4.8 oz), SpO2 99%, not currently . General appearance: well developed, well nourished and in no acute distress. Neck is supple without adenopathy or thyromegaly. Chest is symmetrical and moves normally. The lungs are clear without wheezes, rales, rhonchi or rubs, and the heart is regular withoutmurmurs or gallops, or ectopy. PMI not displaced. A Vasovagal syncope (Primary) Benign hypertension with CKD (chronic kidney disease), stage II - amLODIPine Besylate 10 MG Oral Tablet (Norvasc); One daily - hydrALAZINE HCl 25 MG Oral Tablet (Apresoline); Take 1 Tablet by mouth in the morning and 1 Tablet before bedtime. DM type 2, 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% (HCC) Paroxysmal atrial fibrillation (HCC) Dyslipidemia, goal LDL below 100 Med list updated, nifedipine removed. Follow Up: Return if symptoms worsen or fail to improve. documented in this encounter Nursing Notes * Aric Robledo CMA - 08/10/2024 11:42 AM EDT The patient has been properly identified by confirmation of name and date of . Chief Complaint Patient presents with Hospital Follow-Up [facility] discharge 08/05 documented in this encounter Plan of Treatment Upcoming Encounters Date Type Department Care Team (Late st Contact Info) Description 09/11/2024 2:20 PM EDT Office Visit Family Medicine [address] [place] [phone] Rolanda Villalpando PA-C [address] [place] [address] [place] [address] 10/25/2024 11:30 AM EST Office Visit Cardiology, [facility] [address] [address] Francheska Ponce PA-C [address] [place] [address] 12/11/2024 2:30 PM EST Office Visit Cardiology, [facility] [address] [address] Chace Peacock DO [address] [place] [place] [address] Health Maintenance Due Date Last Done Comments [...] as of this encounter Visit Diagnoses Diagnosis Vasovagal syncope- Primary Syncope and collapse Benign hypertension with CKD (chronic kidney disease), stage II Benign hypertensive kidney disease with chronic kidney disease stage I through stage IV, or unspecified DM type 2, 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% (HCC) Paroxysmal atrial fibrillation (HCC) Atrial fibrillation Dyslipidemia, goal LDL below 100 Other and unspecified hyperlipidemia documented in this encounter
--- OUTSIDE RECORDS SUMMARY | 2024-10-13 06:52 | External Medical Summary | Summary of Care ---
Author Name Unknown Organization [facility] Address [address] [place] [address] Phone [phone] Care Team Providers Care Paste Mixer Name Role Phone Unavailable Primary Care Provider Unavailabl e Reason for Visit * Reason Onset Date Comments Home Health 09/13/2024 Encounter Details Date Type Department Care Team (Late st Contact Info) Description 09/13/2024 Telephone Family Medicine [address] [phone] Rolanda Villalpando PA-C [address] [place] [address] [place] [address] Home Health Allergies Active Allergy Reactions Criticality Noted Date Comments Brassica Oleracea 05/17/2020 Other Reaction(s): Gas Crab (Diagnostic) 04/05/2018 Crab Extract 05/17/2020 Other Reaction(s): diarrhea Food (See Comments) 07/24/2015 Broccoli, beans, cauliflower - cause gas Grapefruit, oranges - cause bronchitis - positive skin test Grapefruit Extract 05/17/2020 Other Reaction(s): BRONCHITIS [place] Oil 05/17/2020 Other Reaction(s): BRONCHITIS Paroxetine Hydrochloride 04/03/2009 Penicillins 04/03/2009 Blisters on hands Peanut-Containing Drug Products Abdominal pain Medium 07/24/2015 Gas, bloating Phaseolus 01/10/2024 Other Reaction(s): Bloating, Gas also with green beans documented as of this encounter (statuses as of 09/13/2024) Medications Medication Sig Dispensed Refills Start Date [...] M type 2, 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% ([facility]) Test blood sugar once daily as [...] blood pressure less than 140/90,Atherosclero sis of ewi[place]ayp coronary artery of [place] heart without angina pectoris,Paroxysmal atrial fibrillation (HCC) Take 1 Tablet by mouth in the morning and 1 Tablet before bedtime. 180 Tablet 04/21/2024 Active Montelukast Sodium 10 MG Oral Tablet (Singulair)Indicati ons:Other seasonal allergic rhinitis Take 1 Tablet by mouth at bedtime. 90 Tablet 04/21/2024 Active Atorvastatin Calcium 20 MG Oral Tablet (Lipitor)Indication s:Atherosclerosis of ewi[place]ay[place] coronary artery of [place] heart without angina pectoris,Paroxysmal atrial fibrillation (HCC),Dyslipidemia, [...] 04/21/2024 Active Ramelteon 8 MG Oral Tablet (Rozerem)Indication s:Insomnia, unspecified type Take 1 Tablet by mouth at bedtime. 90 Tablet 1 06/14/2024 Active Nystatin 559920 UNIT/GM External CreamIndications:De rmatitis Apply topically to affected area 2 times a day. To affacted area for two weeks. 60 g 2 07/12/2024 Active Eliquis 5 MG Oral Tablet (Apixaban)Indicatio [...] the morning. 90 Tablet 1 09/13/2024 Active oxyBUTYnin Chloride ER 10 MG Oral Tablet Extended Release 24 Hour (Ditropan XL) Take 1 Tablet by mouth in the morning. 90 Tablet 1 04/21/2024 Discontinu ed(Refill) Sodium Chloride 1 GM Oral Tablet Take 1 Tablet by mouth in the morning and 1 Tablet before bedtime. 180 Tablet 1 04/21/2024 10/16/202 4 Discontinu ed(Refill) documented as of this encounter (statuses as of 09/13/2024) Active Problems Problem Noted Date Diagnosed Date [...] set at 12/10 -- start auto BIPAP [facility] ADVANCE DIRECTIVE INFORMATION 06/11/2011 Overview: No, Advance Directive brochure given to patient. - mailed 06/11/2011 Primary hypertension 10/17/2009 Overview: Modified per HTN protocol #16. Acquired hypothyroidism Gastroesophageal reflux dise ase with esophagitis 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 Atherosclerosis of ewi[place] co ronary artery of ewi[place]ay[place] heart without angina pectoris Adjustment disorder with depressed mood documented as of this encounter (statuses as of 09/13/2024) Resolved Problems Problem Noted Date Diagnosed Date [...] moderate persistent 09/23/2012 09/23/2012 Genetic Sleep Disorder [facility] Other*[id number] 09/12/2012 06/25/2016 Obesity, Class II, BMI 35-39 [...] as of this encounter (statuses as of 09/13/2024) Immunizations Name Administration Dates Next Due COVID-19 [...] Telephone Encounter - Per Vee LPN - 09/13/2024 1:05 PM EDT Pending Prescriptions: Disp Refills Sodium Chloride 1 GM Oral Tablet 180 Ta*1 Sig: Take 1 Tablet by mouth in the morning and 1 Tablet before bedtime. oxyBUTYnin Chloride ER 10 MG Oral Tablet *90 Tab*1 Sig: Take 1 Tablet by mouth in the morning. Last Visit: 09/11/2024 (in office), Visit date not found (telemedicine) Next Visit: 10/13/2024 Last date the medication was ordered: 04/21/2024 Patient Active Problem List Diagnosis Acquired hypothyroidism Gastroesophageal reflux disease with esophagitis 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 Atherosclerosis of ewi[place] coronary artery of ewi[place]ay[place] heart without angina pectoris Primary hypertension ADVANCE DIRECTIVE INFORMATION Sleep apnea, obstructive POAG (primary open-angle glaucoma) Adjustment disorder with depressed mood DDD (degenerative disc disease), cervical CURTIS (stress urinary incontinence, female) Paroxysmal atrial fibrillation (HCC) Dyslipidemia, goal LDL below 100 Mild persistent asthma without complication Rhinitis, nonallergic DM type 2, 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% ([facility]) BMI 31.0-31.9,adult 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) Benign hypertension with CKD (chronic kidney disease), stage II Central stenosis of spinal canal Labs: Lab Results Component Value Date/Time CREATININE - [facility] 0.7 09/11/2024 02:15 PM CREATININE - [facility] 0.8 09/16/2020 01:56 PM CREATININE, RANDOM URINE - [facility] 64 11/17/2023 03:02 PM CREATININE, RANDOM URINE - [facility] 105 09/16/2020 02:12 PM Lab Results Component Value Date/Time POTASSIUM - [facility] 4.6 09/11/2024 02:15 PM POTASSIUM - [facility] 3.8 09/16/2020 01:56 PM Lab Results Component Value Date/Time TSH - [facility] 0.34 09/11/2024 02:15 PM TSH - [facility] 0.51 04/29/2020 10:16 AM TSH - [facility] 0.237 (A) 05/07/2018 12:00 AM Lab Results Component Value Date/Time LDL (CALCULATED)-[facility] 46 05/07/2018 10:11 AM LDL (CALCULATED)-[facility] 46 05/07/2018 12:00 AM LDL (CALCULATED)-[facility] 132 (A) 09/21/2016 12:00 AM LDL CHOLESTEROL (CALCULATED) - [facility] 60 09/11/2024 02:15 PM LDL CHOLESTEROL (CALCULATED) - [facility] 45 02/23/2024 02:34 PM LDL CHOLESTEROL (CALCULATED) - [facility] UNINTERPRETABLE [...] Component Value Date/Time HEMOGLOBIN A1C - [facility] 5.7 (H) 09/11/2024 02:15 PM HEMOGLOBIN A1C - [facility] 6.3 (H) 11/17/2023 03:02 PM HEMOGLOBIN A1C - [facility] 6.3 (H) 04/28/2023 02:28 PM HEMOGLOBIN A1C - [facility] 6.3 (H) 06/10/2020 03:05 PM HEMOGLOBIN A1C - [facility] 6.0 (H) 08/29/2019 11:47 AM HEMOGLOBIN A1C - [facility] 7.4 (H) 01/23/2019 02:34 PM documented in this encounter Plan of Treatment Upcoming Encounters Date Type Department Care Team (Late st Contact Info) Description 10/13/2024 12:40 PM EST Office Visit Family [address] [phone] Lilo Ba MD [address] [place] [address] [place] [phone] 10/25/2024 11:30 AM EST Office Visit Cardiology, [facility] [address] [place] [address] Francheska Ponce PA-C [address] [place] [address] 03/12/2025 2:00 PM EDT Office Visit [address] [place] [phone] Lilo Ba MD [address] [place] [address] [place] [phone] 03/26/2025 4:00 PM EDT Office Visit Cardiology, [facility] [address] [place] [address] Chace Peacock DO [address] [place] [address] Health Maintenance Due Date Last Done Comments [...]
--- OUTSIDE RECORDS SUMMARY | 2024-10-13 06:52 | External Medical Summary ---
Author Name Unknown Address Unknown Organization [id number]:LABORATORY [facility] [place] - [address] [facility] [address] Laboratory Report Ordering Provider Test Date Status WILFRED CRAWLEY 09/11/2024 14:15:41 Final Observation Date Value Abnormality Reference (Units ) Status WBC, Total 09/11/2024 14:15:41 7.07 4.00-10.8 0 (K/uL) Final RBC 09/11/2024 14:15:41 4.18 3.85-5.15 (M/uL) Final Hemoglobin 09/11/2024 14:15:41 12.9 12.0-15.3 (g/dL) Final Anemia reflex testing trigge rs on a HGB < 12.0 for Females and HGB < 13.0 for Males in accordance with the WHO Anemia Guidelines
Anemia reflex testing triggers on a HGB < 12.0 for Females and HGB < 13.0 for Males in accordance with the WHO Anemia Guidelines HCT 09/11/2024 14:15:41 40.0 36.0-45.2 (%) Final MCV 09/11/2024 14:15:41 95.7 81.5-97.5 (fL) Final MCH 09/11/2024 14:15:41 30.9 27.0-34.0 (pg) Final MCHC 09/11/2024 14:15:41 32.3 32.0-36.0 (g/dL) Final RDW 09/11/2024 14:15:41 14.5 11.5-15.5 (%) Final Platelets 09/11/2024 14:15:41 277 140-400 (K /uL) Final MPV 09/11/2024 14:15:41 12.6 6.6-11.1 ( fL) Final Nucleated erythrocytes/100 leukocytes [Ratio] in Blood by Automated count 09/11/2024 14:15:41 0 <=0 (/100 WBCs) [facility] Performing Location LABORATORY [facility] [place] - [address] [facility] [address]
--- OUTSIDE RECORDS SUMMARY | 2024-10-13 06:52 | External Medical Summary ---
Author Name Unknown Address Unknown Organization [id number]:LABORATORY [facility] [place] - [address] [facility] [id number] Laboratory Report Ordering Provider Test Date Status WILFRED CRAWLEY 09/11/2024 14:15:41 Final Observation Date Value Abnormality Reference (Units ) Status SYNC LEUKOCYTES IN BLOOD BY AUTOMATED COUNT 09/11/2024 14:15:41 7.07 4.00-10.80 (K/uL) Final Segs 09/11/2024 14:15:41 68.8 40.0-75.0 (%) Final Lymphs % 09/11/2024 14:15:41 19.4 18.0-42.0 (%) Final Monos 09/11/2024 14:15:41 9.3 1.0-11.0 (%) Final Eosinophils 09/11/2024 14:15:41 1.8 0.0-6.0 (%) Final Basos 09/11/2024 14:15:41 0.4 0.0-2.0 (%) Final Immature Granulocyte, Percent 09/11/2024 14:15:41 0.3 0.0-2.0 (%) Final Absolute Segs 09/11/2024 14:15:41 4.86 1.80-7.70 (K/uL) Final Lymphs, absolute 09/11/2024 14:15:41 1.37 1.00-4.80 (K/ul) Final Monos, Abs 09/11/2024 14:15:41 0.66 0.00-1.10 (K/uL) Final Eos, Abs 09/11/2024 14:15:41 0.13 0.00-0.70 (K/uL) Final Basos, Abs 09/11/2024 14:15:41 0.03 0.00-0.20 (K/uL) Final Immature Granulocytes, Number 09/11/2024 14:15:41 0.02 0.00-0.20 (K/uL) Final Performing Location LABORATORY [facility] [place] - [address] [facility] [id number]
--- OUTSIDE RECORDS SUMMARY | 2024-10-13 06:52 | External Medical Summary | Summary of Care ---
Author Name Unknown Organization [facility] Address [address] [place] [address] Phone [phone] Care Team Providers Care Livestock Sales Representative Name Role Phone Unavailable Primary Care Provider Unavailabl e Reason for Visit * Reason Comments Re-Check Encounter Details Date Type Department Care Team (Late st Contact Info) Description 09/11/2024 2:20 PM EDT Office Visit Family Medicine [address] [phone] Rolanda Villalpando PA-C [address] [place] [address] [place] [address] Benign hypertension with CKD (chronic kidney disease), stage II*; DM type 2, 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% (HCC); Paroxysmal atrial fibrillation (HCC); 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); Acquired hypothyroidism; Adjustment disorder with depressed mood; Atherosclerosis of [place] coronary artery of [place] heart without angina pectoris; DDD (degenerative disc disease), cervical; Central stenosis of spinal canal; Dyslipidemia, goal LDL below 100; Gastroesophageal reflux disease with esophagitis 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; Mild persistent asthma without complication; Primary open angle glaucoma (POAG) of both eyes, moderate stage; Primary hypertension; Sleep apnea, obstructive Allergies Active Allergy Reactions Criticality Noted Date Comments Brassica Oleracea 05/17/2020 Other Reaction(s): Gas Crab (Diagnostic) 04/05/2018 Crab Extract 05/17/2020 Other Reaction(s): diarrhea Food (See Comments) 07/24/2015 Broccoli, beans, cauliflower - cause gas Grapefruit, oranges - cause bronchitis - positive skin test Grapefruit Extract 05/17/2020 Other Reaction(s): BRONCHITIS [place] Oil 05/17/2020 Other Reaction(s): BRONCHITIS Paroxetine Hydrochloride [...] 30GIndications:DM type 2, 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% ([facility]) TEST BLOOD SUGAR ONCE DAILY DIRECTED DX E11.9 100 Each 3 01/03/2024 Active OneTouch Verio In Vitro Strip (Glucose Blood)Indications:DM type 2, 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% ([facility]) Test blood sugar once daily as [...] before bedtime. 180 Tablet 1 04/21/2024 Active Vitamin B-12 1000 MCG Oral [...] blood pressure less than 140/90,Atheroscleros is of [place] coronary artery of [place] heart without angina pectoris,Paroxysmal atrial fibrillation (HCC) Take 1 Tablet by mouth in the morning and 1 Tablet before bedtime. 180 Tablet 1 04/21/2024 Active Montelukast Sodium 10 MG Oral Tablet (Singulair)Indicatio ns:Other seasonal allergic rhinitis Take 1 Tablet by mouth at bedtime. 90 Tablet 1 04/21/2024 Active Atorvastatin Calcium 20 MG Oral Tablet (Lipitor)Indications :Atherosclerosis of [place] coronary artery of [place] heart without angina pectoris,Paroxysmal atrial fibrillation (HCC),Dyslipidemia, [...] bedtime. 90 Tablet 1 06/14/2024 Active Nystatin 536380 UNIT/GM External CreamIndications:Jeffry matitis Apply topically to [...] ase with esophagitis 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 Atherosclerosis of [place] co ronary artery of [place] heart without angina pectoris Adjustment [...] persistent 09/23/2012 09/23/2012 Genetic Sleep Disorder Resea [facility] Other*[id number] 09/12/2012 06/25/2016 Obesity, Class II, BMI 35-39 [...] Sign Reading Time Taken Comments Blood Pressure 124/68 09/11/2024 1:42 PM EDT Pulse 96 09/11/2024 1:42 PM EDT Temperature 36 C (96.8 F) 09/11/2024 1:42 PM EDT Respiratory Rate 18 09/11/2024 1:42 PM EDT Oxygen Saturation 99% 09/11/2024 1:42 PM EDT Inhaled Oxygen Concentration - - Weight 62.6 kg (138 lb) 09/11/2024 1:42 PM EDT Height 152.4 cm (5') 09/11/2024 1:42 PM EDT Body Mass Index 26.95 09/11/2024 1:42 PM EDT documented in this encounter Progress Notes * Rolanda Villalpando PA-C - 09/11/2024 1:58 PM EDT Nursing Notes: Marylin Gruber, RAFFI 09/11/24 0887 Signed Check up. Pt does not know what meds she is taking Pt states she gets lightheaded x several weeks , has pain in back of her skull and headache Pt here today for recheck. Pt with PMH of hypothyroid, anxiety/depression, CAD, HTN, CKD, spinal stenosis, DM, dyslipidemia, GERD, asthma, A. Fib, glaucoma, DEMARIO, DM. Pt hasn't had labs for a while. Pt states that she doesn't have any issues at this time. She was recently hospitalized for syncope. Already had her hospital FU. She is due for labs. Review of patient's allergies indicates: Allergen Reactions Peanut-Containing Drug Products Abdominal pain Gas, bloating Brassica Oleracea Other Reaction(s): Gas Crab (Diagnostic) Crab Extract Other Reaction(s): diarrhea Food (See Comments) Broccoli, beans, cauliflower - cause gas Grapefruit, oranges - cause bronchitis - positive skin test Grapefruit Extract Other Reaction(s): BRONCHITIS [place] Oil Other Reaction(s): BRONCHITIS Paxil [Paroxetine Hydrochloride] Pcn [Penicillins] Blisters on hands Phaseolus Other Reaction(s): Bloating, Gas also with green beans Current Outpatient Medications Medication Sig Dispense Refill Albuterol Sulfate HFA 108 (90 Base) MCG/ACT Inhalation Aerosol Solution Inhale 2 Puffs by mouth every 4 hours as needed for Cough, Shortness of Breath or Wheezing (and with respiratory infections). 18 g 4 triamcinolone acetonide (ARISTOCORT) 0.1 % cream Apply topically to affected area 2 times a day. Toaffected area. 15 g 5 Azelastine HCl 0.1 % Nasal Solution Administer [...] by mouth at bedtime. 90 Tablet 1 Nystatin [id number] UNIT/GM External Cream Apply topically to affected area 2 times a day. To affacted area for two weeks. 60 g 2 Eliquis 5 MG Oral Tablet (Apixaban) TAKE 1 TABLET BY MOUTH TWICE A DAY 180 Tablet 3 amLODIPine Besylate 10 MG Oral Tablet (Norvasc) One daily 90 Tablet 1 hydrALAZINE HCl 25 MG Oral Tablet (Apresoline) Take 1 Tablet by mouth in the morning and 1 Tablet before bedtime. 180 Tablet 1 No current facility-administered medications for this visit. Past Medical History: Diagnosis Date Acquired hypothyroidism Acute blood loss anemia 08/22/2019 hgb 7.7, given 2 units Adjustment disorder with depressed mood Allergic rhinitis Asthma Atrial fibrillation (HCC) 01/08/2013 [facility] Benign hypertension with CKD (chronic kidney disease) stage III ([facility]) Benign hypertension with CKD (chronic kidney disease), stage II 04/01/2021 BMI 36.0-36.9,adult Calcium deposit in bursa, unspecified hip Cataract, nuclear sclerotic, both eyes Central stenosis of spinal canal 06/11/2021 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 Coronary atherosclerosis of [place] coronary artery DM type 2, goal HbA1c < 7% (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[employer] Social Determinants of Health Financial Resource Strain: Low Risk (03/30/2023) [facility] Overall Financial Resource Strain (CARDIA) Difficulty of Paying Living Expenses: Not hard at all Food Insecurity: No Food Insecurity (07/24/2019) Hunger Vital Sign Worried About Running Out of Food in the Last Year: Never true Ran Out of Food in the Last Year: Never true Transportation Needs: No Transportation Needs (03/30/2023) Received from [facility], [facility] PRAPARE - Transportation Lack of Transportation (Medical): No Lack of Transportation (Non-Medical): No Social Connections: Unknown (05/16/2024) Social Connections How often do you feel lonely or isolated from those around you? (Adult - for ages 18 years and over): Not on file Housing Stability: Not on file O:Blood pressure 124/68, pulse 96, temperature 36 C (96.8 F), resp. rate 18, height 1.524 m (5'), weight 62.6 kg (138 lb), SpO2 99%, not currently . GENERAL: alert, healthy, and no distress NECK: supple, no adenopathy, no bruits, thyroid normal size, non-tender, without nodularity EYES: PERRLA, conjunctiva are pink and non-injected, sclera clear EARS: External ears normal, Canals clear, TM's Normal NOSE: no mucosal erythema, no mucosal edema, no purulent discharge OROPHARYNX: no exudate, no erythema, lips, buccal mucosa, and tongue normal, and mucous membranes are moist HEART: regular rate & rhythm, no murmur, and no gallops LUNGS: chest symmetric with normal AP diameter, no chest deformities noted, no chest wall tenderness, lungs clear to auscultation ABDOMEN: abdomen soft, non-tender, normal bowel sounds, and no masses or organomegaly A:Benign hypertension with CKD (chronic kidney disease), stage II (Primary) - BASIC METABOLIC PANEL; Future; Expected date: 09/11/2024 - CBC WITH WBC DIFFERENTIAL AND ANEMIA REFLEX WORKUP; Future; Expected date: 09/11/2024 DM type 2, 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% (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) - LIPID PANEL WITH DIRECT LDL IF TG IS HIGH; Future; Expected date: 09/11/2024 Acquired hypothyroidism - TSH WITH FREE T4 IF INDICATED; Future; Expected date: 09/11/2024 Adjustment disorder with depressed mood Atherosclerosis of [place] coronary artery of [place] heart without angina pectoris DDD (degenerative disc disease), cervical Central stenosis of spinal canal Dyslipidemia, goal LDL below 100 Gastroesophageal reflux disease with esophagitis 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 Mild persistent asthma without complication Primary open angle glaucoma (POAG) of both eyes, moderate stage Primary hypertension Sleep apnea, obstructive Other orders - INFLUENZA VAC., TRIVALENT, HD, PF, 65 AND ABOVE, 0.5 ML IM (FLUZONE HD) - COVID-19, MRNA-LNP, PF, 24-25, 30MCG/0.3ML, IM, 12YRS AND ABOVE (PFIZER) Will check some labs. Continue current meds. Any questions/problems, please call. If anything changes, worsens, develops new sx, please call JUAN. Follow-up: Return if symptoms worsen or fail to improve. | Check-out note: Sched 6 months with a doctor Rolanda Villalpando PA-C documented in this encounter Nursing Notes * Marylin Gruber RN - 09/11/2024 1:47 PM EDT Check up. 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); DM type 2, 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% (HCC) 10/13/2024 12:40 PM EST Office Visit [address] [phone] Lilo Ba MD [address] [place] [address] [place] [phone] 10/25/2024 11:30 AM EST Office Visit Cardiology, [facility] [address] [place] [address] Francheska Ponce PA-C [address] [place] [address] 03/12/2025 2:00 PM EDT Office Visit [address] [address] Lilo Ba MD [address] [place] [address] [place] [phone] 03/26/2025 4:00 PM EDT Office Visit Cardiology, [facility] [address] [place] [address] Chace Peacock DO [address] [place] [address] Pending Results Name Type Priority Associated Diagnoses [...] < 7.5% (HCC) 09/11/2024 2:15 PM EDT Scheduled Orders Name Type Priority Associated Diagnoses Orde r Schedule BASIC METABOLIC PANEL Lab Routine Benign hypertension with CKD (chronic kidney disease), stage II Expected: 09/11/2024 (Approximate), Expires: 09/11/2025 TSH WITH FREE T4 IF INDICATED Lab Routine Acquired hypothyroidism Expected: 09/11/2024 (Approximate), Expires: 09/11/2025 CBC WITH WBC DIFFERENTIAL AND ANEMIA REFLEX WORKUP Lab Routine Benign hypertension with CKD (chronic kidney disease), stage II Expected: 09/11/2024 (Approximate), Expires: 09/11/2025 LIPID PANEL WITH DIRECT LDL IF TG IS HIGH Lab Routine 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) Expected: 09/11/2024, Expires: 09/11/2025 HEMOGLOBIN A1C Lab Routine DM type 2, 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% (HCC) Expected: 09/11/2024 (Approximate), Expires: 09/11/2025 Health Maintenance Due Date Last Done Comments Zoster Vaccines (1 of 2) 1989 Depression Screening 04/29/2021 04/29/2020 Diabetic Foot Exam 04/28/2024 04/28/2023, 0 03/12/2022, 04/01/2021, Additional history exists HbA1c 05/18/2024 11/17/2023, 03/31, 11/17/2022, Additional history exists Diabetic Eye Exam 09/03/2024 09/03/2023, , 09/03/2023, Additional history exists Albumin/Creatinine Ratio 11/17/202411/17/2 023, [...] hypertension with CKD (chronic kidney disease), stage II- Primary Benign hypertensive kidney disease with chronic kidney disease stage I through stage IV, or unspecified DM type 2, 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% (HCC) Paroxysmal atrial fibrillation (HCC) Atrial fibrillation 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) Acquired hypothyroidism Unspecified hypothyroidism Adjustment disorder with depressed mood Atherosclerosis of [place] coronary artery of [place] heart without angina pectoris DDD (degenerative disc disease), cervical Degeneration of cervical intervertebral disc Central stenosis of spinal canal Dyslipidemia, goal LDL below 100 Other and unspecified hyperlipidemia Gastroesophageal reflux disease with esophagitis 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 Mild persistent asthma without complication Unspecified asthma Primary open angle glaucoma (POAG) of both eyes, moderate stage Primary hypertension Unspecified essential hypertension Sleep apnea, obstructive Obstructive sleep apnea (adult) (pediatric) Benign hypertension with CKD (chronic kidney disease), stage II Benign hypertensive kidney disease with chronic kidney disease stage I through stage IV, or unspecified Acquired hypothyroidism Unspecified hypothyroidism 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
--- OUTSIDE RECORDS SUMMARY | 2024-10-13 06:52 | External Medical Summary | Summary of Care ---
Author Name Unknown Organization [facility] Address [address] [facility] [place] [address] Phone [phone] Care Team Providers Care Podiatric Medicine Doctor Name Role Phone Unavailable Primary Care Provider Unavailabl e Reason for Visit * Reason Onset Date Comments Advice 08/16/2024 Encounter Details Date Type Department Care Team (Late st Contact Info) Description 08/16/2024 Telephone Cardiology, [facility] [address] [place] [address] Chace Peacock, [address] [place] [address] Advice Allergies Active Allergy Reactions Criticality Noted Date Comments Brassica Oleracea 05/17/2020 Other Reaction(s): Gas Crab (Diagnostic) 04/05/2018 Crab Extract 05/17/2020 Other Reaction(s): diarrhea Food (See Comments) 07/24/2015 Broccoli, beans, cauliflower - cause gas Grapefruit, oranges - cause bronchitis - positive skin test Grapefruit Extract 05/17/2020 Other Reaction(s): BRONCHITIS [place] Oil 05/17/2020 Other Reaction(s): BRONCHITIS Paroxetine Hydrochloride 04/03/2009 Penicillins 04/03/2009 Blisters on hands Peanut-Containing Drug Products Abdominal pain Medium 07/24/2015 Gas, bloating Phaseolus 01/10/2024 Other Reaction(s): Bloating, Gas also with green beans documented as of this encounter (statuses as of 08/21/2024) Medications Medication Sig Dispensed Refills Start Date [...] 2, 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% ([facility]) TEST BLOOD SUGAR ONCE DAILY DIRECTED DX E11.9 100 Each 3 01/03/2024 Active OneTouch Verio In Vitro Strip (Glucose Blood)Indications:DM type 2, 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% ([facility]) Test blood sugar once daily as [...] blood pressure less than 140/90,Atheroscleros is of [place] coronary artery of [place] heart without angina pectoris,Paroxysmal atrial fibrillation (HCC) Take 1 Tablet by mouth in the morning and 1 Tablet before bedtime. 180 Tablet 04/21/2024 Active Montelukast Sodium 10 MG Oral Tablet (Singulair)Indicatio ns:Other seasonal allergic rhinitis Take 1 Tablet by mouth at bedtime. 90 Tablet 1 04/21/2024 Active Atorvastatin Calcium 20 MG Oral Tablet (Lipitor)Indications :Atherosclerosis of [place] coronary artery of [place] heart without angina pectoris,Paroxysmal atrial fibrillation (HCC),Dyslipidemia, [...] bedtime. 90 Tablet 1 06/14/2024 Active Nystatin [id number] UNIT/GM External CreamIndications:Jeffry matitis Apply topically to [...] as of this encounter (statuses as of 08/21/2024) Active Problems Problem Noted Date Diagnosed Date [...] ase with esophagitis 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 Atherosclerosis of [place] co ronary artery of [place] heart without angina pectoris Adjustment disorder with depressed mood documented as of this encounter (statuses as of 08/21/2024) Resolved Problems Problem Noted Date Diagnosed Date [...] 09/23/2012 Genetic Sleep Disorder Resea [facility] Other*[id number] 09/12/2012 06/25/2016 Obesity, Class II, BMI 35-39 [...] as of this encounter (statuses as of 08/21/2024) Immunizations Name Administration Dates Next Due COVID-19 [...] encounter Miscellaneous Notes * Telephone Encounter - Charlie Zepeda OSA - 08/16/2024 1:53 PM EDT Mitali does not have any transportation systems, in place. There is the [employer] bus, or the [employer] Van, [id number]. * Telephone Encounter - Francheska Park OSA - 08/16/2024 1:46 PM EDT Person calling: Yudelka Relationship to patient: patient Phone/Fax to return call: [phone] Reason for call(brief): advice Pharmacy: N/A Provider Name:Dr. Peacock Detailed message to office:Patient is wondering if there is a transportation service that Darío provide to get her to her cardiology appointments or if there is another company she can callfor transport. Please advise. Thank you, DEMARIO Kwon documented in this encounter Plan of Treatment Upcoming Encounters Date Type Department Care Team (Late st Contact Info) Description 09/11/2024 2:20 PM EDT Office Visit Family Medicine [address] [place] [address] Rolanda Villalpando PA-C [address] [place] [address] [place] [address] 10/25/2024 11:30 AM EST Office Visit Cardiology, [facility] [address] [place] [address] Francheska Ponce PA-C [address] [place] [address] 03/26/2025 4:00 PM EDT Office Visit Cardiology, [facility] [address] [place] [address] Chace Peacock, DO [address] [place] [address] Health Maintenance Due Date Last Done Comments [...]
[2024-10-13 07:04] LABS: Albumin Globulin Ratio 1.7 (0.9-2); Albumin Level 3.6 gm/dl (3.4-5.0); BUN Creatinine Ratio 21.5 (10-20); Bilirubin,Total 0.3 mg/dl (0.2-1.0); Calcium 9.3 mg/dl (8.6-10.3); Creatinine Clr Calc Pharmacy 53.1 ml/min; Globulin 2.1 gm/dl (2.5-4.0); Potassium 3.6 mmol/L (3.5-5.1); Total Protein 5.7 gm/dl (6.0-8.3)
[2024-10-13 07:43] LABS: Estimated Average Glucose 108 mg/dl; Hemoglobin A1C 5.4 % (4.5-5.6)
[2024-10-13] MEDS: OXYBUTYNIN CHLORIDE XL 5 MG TABCR PO SCH (08:42)
[2024-10-13] MEDS: FUROSEMIDE 20 MG TAB PO SCH (08:43)
[2024-10-13] MEDS: LOSARTAN POTASSIUM 50 MG TAB PO SCH (08:43)
[2024-10-13] MEDS: CYANOCOBALAMIN (B-12) 500 MCG TABLET PO SCH (08:43)
[2024-10-13] MEDS: ASCORBIC ACID 500 MG TAB PO SCH (08:44)
[2024-10-13] MEDS: CHOLECALCIFEROL 25 MCG (1000 UNITS) TAB PO SCH (08:44)
[2024-10-13] MEDS: amLODIPine BESYLATE 5 MG TAB PO SCH (08:44)
[2024-10-13] MEDS: POTASSIUM CHLORIDE CRTAB 20 MEQ TABCR PO SCH (08:47)
[2024-10-13] MEDS ORDERED: FUROSEMIDE 20 MG TAB PO SCH (09:00)
--- NOTE | 2024-10-13 09:12 | CT Scan Report ---
CT OF THE HEAD WITHOUT CONTRAST CLINICAL HISTORY: follow up head ct for poss sdh COMPARISON STUDY: Head CT August 03, 2024 and October 12, 2024. MRI of the brain February 08, 2024. CT DOSE: 625.8 mGy.cm TECHNIQUE: Helical axial images of the head were obtained without IV contrast. Automated exposure con trol was utilized for the study. A dose lowering technique was utilized adhering to the principles o f ALARA. FINDINGS: No acute intracranial hemorrhage is present. Ventricular system is stable. Basal cisterns a re patent. Asymmetric prominence of the extra-axial space overlying the right cerebral hemisphere is unchanged since CT of October 12, 2024. This measures 4 mm in thickness. This is new since CT of Jul 50,024. White matter hypodensity suggests small vessel disease. There are no findings to sugge st acute dural sinus thrombosis or acute territorial infarct. IMPRESSION: 1. No acute intracranial hemorrhage. 2. No change in asymmetric prominence of the extra-axial space overlying the right cerebral hemispher e since CT of October 12, 2024. This could represent a chronic subdural hematoma or subdural hygroma . ACT 112: Negative or not required by law. Electronically signed by: Guillaume Borrego M.D. 10/13/2024 9:09 AM
[2024-10-13] MEDS: FLUTICASONE/VILANTEROL 200/25MCG 14 PUFFS/INHALER INH SCH (10:14)
--- NOTE | 2024-10-13 10:15 | Electrocardiogram Report ---
Test Reason : Blood Pressure : */* mmHG Vent. Rate : 52 BPM Atrial Rate : 52 BPM P-R Int : 192 ms QRS Dur : 90 ms QT Int : 450 ms P-R-T Axes : 74 -23 29 degrees QTcB Int : 418 ms Sinus bradycardia Otherwise normal ECG When compared with ECG of 12-Oct-2024 13:38, No significant change was found Confirmed by Manuel Hdz ([id number]) on 10/13/2024 10:15:02 AM Referred By: REFERRED SELF Confirmed By: Manuel Hdz
[2024-10-13] MEDS: ACETAMINOPHEN 325 MG TAB PO PRN (10:19)
--- NOTE | 2024-10-13 15:14 | Hospitalist Progress Note ---
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 Repeat CT scan today shows no change and no evidence of acute bleeding. After discussion with NSG, Eliquis on hold. She did have a mild drop in her hemoglobin. If this remains stable we will restart Eliquis, repeat head CT completed. No neurodeficits, continue to monitor Hx AF/HTN/HLD/chronic diastolic CHF: Continue metoprolol, hold Eliquis, continue amlodipine/losartan/Lasix/statin Hx hypothyroidism: Continue Synthroid Hx DM2: Hold metformin, last A1c 5.3, check A1c in a.m., sugar within normal limits Hx asthma: Continue home inhaler/montelukast A total of 51 minutes was spent on chart review/facilitating plan of care/reviewing diagnostic data/discussion with consultants Full code DVT prophylaxis: Eliquison hold Admission and Anticipated Discharge Date Admission Date: October 12, 2024 Anticipated date of discharge: 10/14/24 Subjective 84-year-old woman with past medical history of chronic diastolic CHF, PAF on Eliquis, CVA, CAD s/p stent, HLD, HTN, DEMARIO on CPAP, previous [id number] A1c 5.3, hypothyroidism who presents to the ED on 10/12/2024 after mechanical fall. On arrival to the ED, labs are fairly unremarkable, troponin negative. Chest x-ray and cervical spine CT were negative for any acute findings. CT of the head showed asymmetric prominence of the extra-axial space adjacent to the right cerebrum with CSF density measuring up to 4 mm. This is a new finding from 08/03/2024. Findings suggestive of chronic subdural hematoma versus hygroma. The ER physician spoke to the interventional radiologist on-call they recommended repeat CT scan in [address] today was done. No change was noted. Her Eliquis is on hold. She has a mild EUBANKS. Review of Systems Review of Systems: Constitutional- no fever; no chills Eyes- no acute visual changes ENT- no sinus drainage; no pharyngitis Pulmonary- no cough, no wheezing, no shortness of breath Cardiac- no chest pain, no palpitations, no orthopnea, no dependent edema GI- no nausea, no vomiting, no diarrhea, no melena, no hematochezia - no dysuria, no hematuria Neuro- Has a headache, chronic paresthesias in her upper extremities from her prior stroke. Physical Exam Physical Exam: General- adult elderly female seen at bedside. Eyes- PERRL, EOMI, anicteric ENT- oropharynx clear Neck- supple, no JVD, no adenopathy, no thyromegaly; carotids +2/2, no bruits appreciated Lungs- clear to auscultation and percussion Heart- regular rhythm; no murmur, no gallop, no rub appreciated Abdomen- normal bowel sounds, soft, nontender, no masses or hepatosplenomegaly Extremities- no pretibial edema, no calf tenderness; peripheral pulses intact Neuro- alert, oriented x 3; PERRL, EOMI; no facial palsy; no dysarthria; motor 5/5 bilaterally; no cogwheel rigidity; patellar DTRs +2/2; toes downgoing bilaterally; finger to nose intact bilaterally Skin- warm & dry Results & Data Results & Data Vital Signs (Past 12 Hours) Vital Signs Temp Pulse Pulse Resp BP Pulse Ox O2 Del Method 10/13/24 14:42 58 L 10/13/24 14:40 36.5 C 63 16 125/69 95 Room Air 10/13/24 10:31 36.4 C L 65 16 163/79 H 97 Room Air 10/13/24 07:34 36.5 C 66 17 179/75 H 96 Room Air 10/13/24 07:11 53 L 10/13/24 03:15 36.4 C L 56 L 16 144/73 H 97 Room Air Diagnostic Findings Laboratory Results WBC 6.75 K/ul (4.8-10.8) 10/13/24 06:11 RBC 3.78 M/uL (4.20-5.40) L 10/13/24 06:11 Hgb 11.6 g/dl (12.0-16.0) L 10/13/24 06:11 Hct 34.2 % (37.0-47.0) L 10/13/24 06:11 MCV 90.5 fL (80.0-100.0) 10/13/24 06:11 MCH 30.7 pg (25.0-34.0) 10/13/24 06:11 MCHC 33.9 g/dL (32.0-36.0) 10/13/24 06:11 RDW Std Deviation 48.1 fL (36.4-46.3) H 10/13/24 06:11 RDW Coeff of Stoney 14.6 % (11.5-14.5) H 10/13/24 06:11 Plt Count 250 K/uL (130-400) 10/13/24 06:11 MPV 11.8 fL (9.4-12.4) 10/13/24 06:11 Immature Gran % (Auto) 0.1 % 10/13/24 06:11 Neut % (Auto) 60.6 % 10/13/24 06:11 Lymph % (Auto) 24.6 % 10/13/24 06:11 [place] % (Auto) 10.7 % 10/13/24 06:11 Eos % (Auto) 3.6 % 10/13/24 06:11 Baso % (Auto) 0.4 % 10/13/24 06:11 Neut # (Auto) 4.09 K/uL (1.40-6.50) 10/13/24 06:11 Lymph # (Auto) 1.66 K/uL (1.20-3.40) 10/13/24 06:11 [place] # (Auto) 0.72 K/uL (0.11-0.59) H 10/13/24 06:11 Eos # (Auto) 0.24 K/uL (0.00-0.50) 10/13/24 06:11 Baso # (Auto) 0.03 K/uL (0.00-0.20) 10/13/24 06:11 Immature Gran # (Auto) 0.01 K/uL (0.01-0.20) 10/13/24 06:11 PT 11.0 Seconds (9.0-12.0) 10/12/24 13:42 INR 1.0 (0.9-1.1) 10/12/24 13:42 APTT 30 Seconds (21-31) 10/12/24 13:42 PTT Ratio 1.1 10/12/24 13:42 Sodium 138 mmol/L (136-145) 10/13/24 06:11 Potassium 3.6 mmol/L (3.5-5.1) 10/13/24 06:11 Chloride 105 mmol/L (98-107) 10/13/24 06:11 Carbon Dioxide 26 mmol/L (21-32) 10/13/24 06:11 Anion Gap 7 (3-11) 10/13/24 06:11 BUN 14 mg/dl (6-23) 10/13/24 06:11 Creatinine 0.65 mg/dl (0.6-1.2) 10/13/24 06:11 Est Cr Clr Drug Dosing 53.1 ml/min 10/13/24 06:11 eGFR 86.23 10/13/24 06:11 BUN/Creatinine Ratio 21.5 (10-20) H 10/13/24 06:11 Glucose 106 mg/dl (70-99(Fasting)) H 10/13/24 06:11 Estimat Average Glucose 108 mg/dl 10/13/24 06:11 Hemoglobin A1c 5.4 % (4.5-5.6) 10/13/24 06:11 Calcium 9.3 mg/dl (8.6-10.3) 10/13/24 06:11 Total Bilirubin 0.3 mg/dl (0.2-1.0) 10/13/24 06:11 AST 11 U/L (13-39) L 10/13/24 06:11 ALT 10 U/L (7-52) 10/13/24 06:11 Alkaline Phosphatase 42 U/L (34-104) 10/13/24 06:11 Troponin I High Sens 5.8 pg/ml (0-14) 10/12/24 13:42 B-Natriuretic Peptide 400 pg/ml (0-100) H 10/12/24 17:57 Total Protein 5.7 gm/dl (6.0-8.3) L 10/13/24 06:11 Albumin 3.6 gm/dl (3.4-5.0) 10/13/24 06:11 Globulin 2.1 gm/dl (2.5-4.0) L 10/13/24 06:11 Albumin/Globulin Ratio 1.7 (0.9-2) 10/13/24 06:11 Lipase 25 U/L (11-82) 10/12/24 13:[address] 10/12/24 13:32 CT OF THE CERVICAL SPINE WITHOUT CONTRAST CLINICAL HISTORY: fall COMPARISON STUDY: Cervical spine CT July 09, 2024. TECHNIQUE: Helical axial images of the cervical spine were obtained without IV contrast. Sagittal and coronal reconstructions were viewed. Automated exposure control was utilized for the study. A dose lowering technique was utilized adhering to the principles of ALARA. FINDINGS: Straightening of the cervical lordosis and mild anterolisthesis of C7 on T1 is unchanged. There is no cervical spine fracture. There is severe facet arthrosis as well as severe disc space narrowing at C6-7. Extensive degenerative changes at the C1-C2 articulation are noted. No prevertebral edema. IMPRESSION: No acute cervical spine fracture or subluxation. ACT 112: Negative or not required by law. Electronically signed by: Guillaume Borrego M.D. 10/12/2024 2:12 PM Chest X-Ray 10/12/24 13:32 XR chest 1V portable CLINICAL HISTORY: Chest pain, nonspecific COMPARISON STUDY: Chest radiograph and chest CT August 03, 2024. FINDINGS: There is no pneumothorax or pleural effusion. Moderate cardiomegaly with extensive mitral annular calcification. There is no evidence for pulmonary edema. There is no consolidation. A hiatal hernia is again noted. IMPRESSION: No acute cardiopulmonary findings. No change in appearance of the chest. ACT 112: Negative or not required by law. Electronically signed by: Guillaume Borrego M.D. 10/12/2024 2:[address] 10/13/24 08:00 CT OF THE HEAD WITHOUT CONTRAST CLINICAL HISTORY: follow up head ct for poss sdh COMPARISON STUDY: Head CT August 03, 2024 and October 12, 2024. MRI of the brain February 08, 2024. CT DOSE: 625.8 mGy.cm TECHNIQUE: Helical axial images of the head were obtained without IV contrast. Automated exposure control was utilized for the study. A dose lowering technique was utilized adhering to the principles of ALARA. FINDINGS: No acute intracranial hemorrhage is present. Ventricular system is stable. Basal cisterns are patent. Asymmetric prominence of the extra-axial space overlying the right cerebral hemisphere is unchanged since CT of October 12, 2024. This measures 4 mm in thickness. This is new since CT of July. White matter hypodensity suggests small vessel disease. There are no findings to suggest acute dural sinus thrombosis or acute territorial infarct. IMPRESSION: 1. No acute intracranial hemorrhage. 2. No change in asymmetric prominence of the extra-axial space overlying the right cerebral hemisphere since CT of October 12, 2024. This could represent a chronic subdural hematoma or subdural hygroma. ACT 112: Negative or not required by law. Electronically signed by: Guillaume Borrego M.D. 10/13/2024 9:09 AM Medications Administered Current Inpatient Medications Acetaminophen (Acetaminophen 325 Mg Tab) 650 mg PO Q4H PRN PRN Reason: Pain or Fever Stop: 11/11/24 18:15 Last Admin: 10/13/24 10:19 Dose: 650 mg Amlodipine Besylate (Amlodipine Besylate 5 Mg Tab) 10 mg PO QAM ALYSA Stop: 11/12/24 08:59 Last Admin: 10/13/24 08:44 Dose: 10 mg Ascorbic Acid (Ascorbic Acid 500 Mg Tab) 500 mg PO DAILY ALYSA Stop: 11/12/24 08:59 Last Admin: 10/13/24 08:44 Dose: 500 mg Atorvastatin Calcium (Atorvastatin 20 Mg Tab) 20 mg PO HS ALYSA Stop: 11/11/24 20:59 Last Admin: 10/12/24 20:03 Dose: 20 mg Bimatoprost (Bimatoprost 0.01% Op Soln 2.5 Ml Btl) 1 drops OP HS ALYSA Stop: 11/11/24 20:59 Last Admin: 10/12/24 20:26 Dose: 1 drops Cyanocobalamin (Cyanocobalamin (B-12) 500 Mcg Tablet) 1,000 mcg PO DAILY ALYSA Stop: 11/12/24 08:59 Last Admin: 10/13/24 08:43 Dose: 1,000 mcg Fluticasone/Vilanterol (Fluticasone/Vilanterol 200/25mcg 14 Puffs/Inhaler) 1 puffs INH DAILY ALYSA Stop: 11/12/24 08:59 Last Admin: 10/13/24 10:14 Dose: 1 puffs Furosemide (Furosemide 20 Mg Tab) 20 mg PO DAILY ALYSA Stop: 11/12/24 08:59 Last Admin: 10/13/24 08:43 Dose: 20 mg Levothyroxine Sodium (Levothyroxine Sodium 100 Mcg Tablet) 100 mcg PO DAILYBB ALYSA Stop: 11/12/24 06:29 Last Admin: 10/13/24 05:54 Dose: 100 mcg Losartan Potassium (Losartan Potassium 50 Mg Tab) 100 mg PO DAILY ALYSA Stop: 11/12/24 08:59 Last Admin: 10/13/24 08:43 Dose: 100 mg Metoprolol Tartrate (Metoprolol Tartrate 25 Mg Tab) 12.5 mg PO BID ALYSA Stop: 11/11/24 20:59 Last Admin: 10/13/24 08:43 Dose: 12.5 mg Montelukast Sodium (Montelukast Sodium 10 Mg Tablet) 10 mg PO HS ALYSA Stop: 11/11/24 20:59 Last Admin: 10/12/24 20:03 Dose: 10 mg Oxybutynin Chloride (Oxybutynin Chloride Xl 5 Mg Tabcr) 10 mg PO QAM ALYSA Stop: 11/12/24 08:59 Last Admin: 10/13/24 08:42 Dose: 10 mg Potassium Chloride (Potassium Chloride Crtab 20 Meq Tabcr) 20 meq PO DAILY ALYSA Stop: 11/12/24 08:59 Last Admin: 10/13/24 08:47 Dose: 20 meq Vitamin D (Cholecalciferol 25 Mcg (1000 Units) Tab) 25 mcg PO DAILY ALYSA Stop: 11/12/24 08:59 Last Admin: 10/13/24 08:44 Dose: 25 mcg (1) HTN (hypertension) Hypertension type: primary hypertension Qualified Code(s): I10 - Essential (primary) hypertension (2) CAD (coronary artery disease) Associated angina: without angina Coronary Disease-Associated Artery/Lesion type: [place] artery [place] vs. transplanted heart: [place] heart Qualified Code(s): I25.10 - Atherosclerotic heart disease of [place] coronary artery without angina pectoris
[2024-10-13 16:06] LABS: Appearance Urine Clear (Clear); Bacteria Urine Automated None Seen (None Seen); Bilirubin Urine Negative (Negative); Blood Urine Negative (Negative); Cast Urine Automated 0-2 /lpf (0-2); Color Urine Yellow; Epithelial Cell Urine Auto 0-2 /hpf (0-2); Glucose Urine UA Negative (Negative); Ketones Urine Negative (Negative); Leukocyte Esterase Urine Trace (Negative); Nitrite Urine Negative (Negative); Protein Urine Negative (Negative); RBC Urine Automated 0-2 /hpf (0-2); Specific Gravity Urine 1.007 (1.000-1.030); Urobilinogen Urine Negative (Negative); WBC Urine Automated 0-5 /hpf (0-5); pH Urine 7.5 (4.5-7.5)
[2024-10-14 06:12] LABS: BUN Creatinine Ratio 22.7 (10-20); Calcium 9.8 mg/dl (8.6-10.3); Creatinine Clr Calc Pharmacy 52.3 ml/min; Potassium 3.4 mmol/L (3.5-5.1)
[2024-10-14 06:18] LABS: Hematocrit (blood only) 35.8 % (37.0-47.0); Mean Corpuscular Hemoglobin 30.1 pg (25.0-34.0); Mean Corpuscular Hgb Conc 33.5 g/dL (32.0-36.0); Mean Corpuscular Volume 89.7 fL (80.0-100.0); Mean Platelet Volume 11.8 fL (9.4-12.4); Platelet Count 261 K/uL (130-400); RDW Coefficient of Variation 14.5 % (11.5-14.5); RDW Standard Deviation 47.8 fL (36.4-46.3); Red Blood Count 3.99 M/uL (4.20-5.40); White Blood Count 7.85 K/ul (4.8-10.8)
[2024-10-14] MEDS: POLYETHYLENE (MIRALAX) 17 GM PACK PO PRN (10:50)
--- NOTE | 2024-10-14 12:12 | Communication Note ---
Date of Service: October 14, 2024 Returned call to transfer center regarding patient 84yo female presented after fall Repeat CT scan performed after falling - noted chronic SDH without apparent new acute intracranial abnormality Full anticoagulation was being held upon admit Question re: resume anticoag Recommend further discussion/assessment of patient in terms of risk/benefit as she has known SDH and falls
--- NOTE | 2024-10-14 12:36 | Hospitalist Progress Note ---
Date of Service October 14, 2024 Assessment & Plan (1) HTN (hypertension): (2) CAD (coronary artery disease): (3) T2DM (type 2 diabetes mellitus): (4) HLD (hyperlipidemia): (5) PAF (paroxysmal atrial fibrillation): (6) DEMARIO (obstructive sleep apnea): (7) Asthma: (8) Hypothyroidism: Plan Mechanical fall PT evaluation pending, ? 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 Repeat CT scan 10/13 shows no change and no evidence of acute bleeding. - ED has d/w Ix NSG at admission, Eliquis has been on hold. - Hb has been stable aroun -. No neurodeficits or mentation changes. - d/w Neuro 10/14, given elderly w/ increased risk of fall and concern of SDH recommends against resuming after further discussion w/ family and patients. Hx AF/HTN/HLD/chronic diastolic CHF: Continue metoprolol, hold Eliquis, continue amlodipine/losartan/Lasix/statin. ho embolic stroke in nov when eliquis was started. d/w Titus (pt's son) over the phone 10/14/24, he states she possibly had 4-5 times fall in the last one year, she lives w/ SO who is very [place] and now developing dementia. I explained to him the risk of eliquis iso concern for SDH and my discussion w/ neurology who recommends possibly stop eliquis given high risk of falls. He is not agreeable to any kind of decision on eliquis until Dr. Peacock sees the patient. Since pt is yet to be evaled by PT/OT and appears from schedule (online) dr Peacock is joining on Wednesday, we will consult Dr. Peacock on Wednesday per Pt's son request to have his opinion on pt's eliquis. For now, pt is agreeable to hold eliquis until Dr. Peacock sees her on Wednesday. Hx hypothyroidism: Continue Synthroid Hx DM2: Hold metformin, A1c 5.4 this admission, sugar within normal limits Hx asthma: Continue home inhaler/montelukast A total of 55 minutes was spent on chart review/facilitating plan of care/reviewing diagnostic data/discussion with consultants Full code DVT prophylaxis: Zac huizar SCDs. Time spent: 54 min Admission and Anticipated Discharge Date Admission Date: October 12, 2024 Subjective Patient was seen and examined at bedside. Patient was lying in bed, on room air, NAD, reports mild headache about the same/slightly better. Patient reports eating okay, reports not moving bowel in last few days, is moving gas, denies abdominal pain. Will add bowel regimen. Patient denies other complaints. For RN no new acute event overnight, eating okay, last bowel movement on , no headache or confusion. Physical Exam Physical Exam: General- adult elderly female seen at bedside. Eyes- PERRL, EOMI, anicteric ENT- oropharynx clear Neck- supple, no JVD, no adenopathy, no thyromegaly; carotids +2/2, no bruits appreciated Lungs- clear to auscultation and percussion Heart- regular rhythm; no murmur, no gallop, no rub appreciated Abdomen- normal bowel sounds, soft, nontender, no masses or hepatosplenomegaly Extremities- no pretibial edema, no calf tenderness; peripheral pulses intact Neuro- alert, oriented x 3; PERRL, EOMI; no facial palsy; no dysarthria; motor 5/5 bilaterally; no cogwheel rigidity; patellar DTRs +2/2; toes downgoing bilaterally; finger to nose intact bilaterally Skin- warm & dry Results & Data Results & Data Vital Signs (Past 12 Hours) Vital Signs Temp Pulse Resp BP Pulse Ox O2 Del Method 10/14/24 11:01 36.6 C 102 H 18 146/74 H 97 Room Air 10/14/24 07:52 36.5 C 64 18 151/69 H 96 Room Air 10/14/24 03:03 36.5 C 57 L 18 160/65 H 95 Room Air (1) HTN (hypertension) Hypertension type: primary hypertension Qualified Code(s): I10 - Essential (primary) hypertension (2) CAD (coronary artery disease) Associated angina: without angina Coronary Disease-Associated Artery/Lesion type: [place] artery [place] vs. transplanted heart: [place] heart Qualified Code(s): I25.10 - Atherosclerotic heart disease of [place] coronary artery without angina pectoris
--- NOTE | 2024-10-14 18:26 | CT Scan Report ---
EXAMINATION: Head CT without CLINICAL HISTORY: Patient son feels patient not mentally as sharp PRIORS: 10/12/2024, 08/03/2024 TECHNIQUE: Contiguous axial images were obtained through the head without the use of intravenous contrast. Sagittal and coronal reformations are supplied. FINDINGS: Mild parenchymal volume loss noted. Appearance of the brain is unchanged. Possible chronic Right frontal/temporal subdural hematoma noted, unchanged, measuring up to 4 mm. No acuteblood products identified. Marte-white differentiation is preserved. No edema or midline shift. No intra-axial or extra-axial hemorrhage. Ventricles are normal in size and configuration. Brainstem and cerebellum have a normal appearance. Calvarium unremarkable. Paranasal sinuses and mastoid air cells are well-pneumatized. Globes are intact. No retrobulbar abnormality. IMPRESSION: 1. No CT evidence of an acute intracranial abnormality. 2. Unchanged appearance of the brain when compared to 10/12/2024 with possible chronic appearing right subdural hematoma, unchanged. Electronically signed by Rama Díaz 10-14-2024 6:25 PM
--- NOTE | 2024-10-15 05:51 | CT Scan Report ---
EXAM: CT head/brain wo con CLINICAL HISTORY: different drake TECHNIQUE: Axial non-contrast CT scan of the brain was performed from the skull base to the high parietal region with coronal and sagittal reformats. One of the following dose reduction techniques were utilized for this exam: Automated exposure control, adjustment of the mA and/or kV according to patient size, use of iterative reconstruction. COMPARISON: 10/14/2024. FINDINGS: Brain Parenchyma: Still noted suspected small subdural hematoma in the posterior aspect of the falx cerebri. Still noted ill-defined [id number] areas noted in the subcortical white matter bilaterally, suggestive of microvascular ischemic changes and old lacunar infarcts. Normal attenuation of the cerebellum, and brainstem. No evidence of mass effect. Ventricular System: Still noted ventricular system, cortical sulci, and basal cisterns are prominent consistent with senile changes. Subarachnoid Spaces: No evidence of subarachnoid hemorrhage or extra-axial fluid collections. Sinuses: Clear paranasal sinuses. No evidence of sinusitis or mucosal thickening. Mastoid Air Cells: Clear mastoid air cells. No evidence of mastoiditis. Skull and Meninges: Normal skull morphology. IMPRESSION: 1. Still noted suspected small subdural hematoma in the posterior aspect of the falx cerebri. 2. Stationary rest of the study. Electronically signed by Tali Espana 10-15-2024 05:51 AM
[2024-10-15 06:29] LABS: Hematocrit (blood only) 36.3 % (37.0-47.0); Hemoglobin 12.4 g/dl (12.0-16.0); Mean Corpuscular Hemoglobin 30.7 pg (25.0-34.0); Mean Corpuscular Hgb Conc 34.2 g/dL (32.0-36.0); Mean Corpuscular Volume 89.9 fL (80.0-100.0); Mean Platelet Volume 11.2 fL (9.4-12.4); Platelet Count 250 K/uL (130-400); RDW Coefficient of Variation 14.5 % (11.5-14.5); RDW Standard Deviation 47.9 fL (36.4-46.3); Red Blood Count 4.04 M/uL (4.20-5.40)
[2024-10-15 07:05] LABS: Calcium 9.6 mg/dl (8.6-10.3); Potassium 3.8 mmol/L (3.5-5.1)
[2024-10-15] MEDS: DOCUSATE SODIUM 100 MG CAP PO ONE (09:33)
--- NOTE | 2024-10-15 13:50 | Hospitalist Progress Note ---
Date of Service October 15, 2024 Assessment & Plan (1) HTN (hypertension): (2) CAD (coronary artery disease): (3) T2DM (type 2 diabetes mellitus): (4) HLD (hyperlipidemia): (5) PAF (paroxysmal atrial fibrillation): (6) DEMARIO (obstructive sleep apnea): (7) Asthma: (8) Hypothyroidism: Plan Mechanical fall PT evaluation pending, ? 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 Repeat CT scan 10/13 shows no change and no evidence of acute bleeding. - ED has d/w Ix NSG at admission, Eliquis has been on hold. - Hb has been stable aroun -. No neurodeficits or mentation changes. - d/w Neuro 10/14, given elderly w/ increased risk of fall and concern of SDH recommends against resuming after further discussion w/ family and patients. Hx AF/HTN/HLD/chronic diastolic CHF: Continue metoprolol, hold Eliquis, continue amlodipine/losartan/Lasix/statin. ho embolic stroke in nov when eliquis was started. d/w Titus (pt's son) over the phone 10/14/24, he states she possibly had 4-5 times fall in the last one year, she lives w/ SO who is very [place] and now developing dementia. I explained to him the risk of eliquis iso concern for SDH and my discussion w/ neurology who recommends possibly stop eliquis given high risk of falls. He is not agreeable to any kind of decision on eliquis until Dr. Peacock sees the patient. Since pt is yet to be evaled by PT/OT and appears from schedule (online) dr Peacock is joining on Wednesday, we will consult Dr. Peacock on Wednesday per Pt's son request to have his opinion on pt's eliquis. For now, pt is agreeable to hold eliquis until Dr. Peacock sees her on Wednesday. Hx hypothyroidism: Continue Synthroid Hx DM2: Hold metformin, A1c 5.4 this admission, sugar within normal limits Hx asthma: Continue home inhaler/montelukast A total of 55 minutes was spent on chart review/facilitating plan of care/reviewing diagnostic data/discussion with consultants Full code DVT prophylaxis: Zac milton. SCDs. Time spent: 52 min Dispo: awaiting PT/OT eval. Cards eval on Wednesday. Admission and Anticipated Discharge Date Admission Date: October 12, 2024 Subjective Patient was seen and examined at bedside. Patient was lying in bed, on room air, NAD, reports mild headache, appears to be getting better per eval. Headache behind both eyes and along the side and back of head per pt, now headache is behind right eye only (no visual changes per pt, no ophthalmoplegia on exam). There is mild tenderness to touch on sides and back of head but obvious swelling or laceration. Patient reports eating okay, reports not moving bowel in last few days, is moving gas, denies abdominal pain. c/w miralax prn, will add colace bid. hold for loose stool. Patient denies other complaints. No focal weakness or n/tingling anywhere in the body per pt. No leg tremors noted. It appears that pt complained of diff kind headache overnight and got CT Head which showed stable sdh. Physical Exam Physical Exam: General- adult elderly female seen at bedside. Eyes- PERRL, EOMI, anicteric ENT- oropharynx clear Neck- supple, no JVD, no adenopathy, no thyromegaly; carotids +2/2, no bruits appreciated Lungs- clear to auscultation and percussion Heart- regular rhythm; no murmur, no gallop, no rub appreciated Abdomen- normal bowel sounds, soft, nontender, no masses or hepatosplenomegaly Extremities- no pretibial edema, no calf tenderness; peripheral pulses intact Neuro- alert, oriented x 3; PERRL, EOMI; no facial palsy; no dysarthria; motor 5/5 bilaterally; no cogwheel rigidity; patellar DTRs +2/2; toes downgoing bilaterally; finger to nose intact bilaterally Skin- warm & dry Results & Data Results & Data Vital Signs (Past 12 Hours) Vital Signs Temp Pulse Pulse Resp BP Pulse Ox O2 Del Method 10/15/24 13:34 80 10/15/24 10:23 36.6 C 52 L 16 145/71 H 97 Room Air 10/15/24 08:42 65 10/15/24 08:41 54 L 10/15/24 07:32 36.8 C 58 L 18 163/69 H 97 Room Air 10/15/24 04:24 166/89 H 10/15/24 03:57 36.4 C L 62 16 176/79 H 97 Room Air (1) HTN (hypertension) Hypertension type: primary hypertension Qualified Code(s): I10 - Essential (primary) hypertension (2) CAD (coronary artery disease) Coronary Disease-Associated Artery/Lesion type: [place] artery [place] vs. transplanted heart: [place] heart Associated angina: without angina Qualified Code(s): I25.10 - Atherosclerotic heart disease of [place] coronary artery without angina pectoris
[2024-10-15] MEDS: DOCUSATE SODIUM 100 MG CAP PO SCH (20:22)
[2024-10-16 06:11] LABS: Hematocrit (blood only) 35.3 % (37.0-47.0); Hemoglobin 11.9 g/dl (12.0-16.0); Mean Corpuscular Hemoglobin 30.1 pg (25.0-34.0); Mean Corpuscular Hgb Conc 33.7 g/dL (32.0-36.0); Mean Corpuscular Volume 89.4 fL (80.0-100.0); Mean Platelet Volume 11.3 fL (9.4-12.4); Platelet Count 260 K/uL (130-400); RDW Coefficient of Variation 14.2 % (11.5-14.5); RDW Standard Deviation 46.5 fL (36.4-46.3); Red Blood Count 3.95 M/uL (4.20-5.40); White Blood Count 6.59 K/ul (4.8-10.8)
[2024-10-16 06:31] LABS: BUN Creatinine Ratio 24.2 (10-20); Calcium 9.5 mg/dl (8.6-10.3); Creatinine Clr Calc Pharmacy 55.8 ml/min; Magnesium 1.7 mg/dl (1.7-2.4); Phosphorus 3.7 mg/dl (2.5-4.9); Potassium 4.2 mmol/L (3.5-5.1)
[2024-10-16 08:47] VITALS: RESP 18
--- NOTE | 2024-10-16 09:49 | Cardiology Consultation ---
Date of Consultation October 16, 2024 Assessment & Plan (1) Fall: (2) Head injury: * Patient remains in sinus rhythm * Discontinue Eliquis indefinitely * Consider starting aspirin 81 mg daily * Consider pharmacologic DVT prophylaxis while in hospital * Without documented recurrent atrial fibrillation, utility of percutaneous left atrial appendage occlusion device is not straightforward and would recommend ongoing observation rather than invasive procedure * Will plan on speaking with her son by phone. History of Present Illness Attending Physician: Jair Ivey MD History of Present Illness Yudelka Palacios is an 84 year old female seen in cardiology consultation per the request of Dr Ivey for advice with regards to her history of recent falls as well as paroxysmal atrial fibrillation and history of cardioembolic stroke. The patient presented with a mechanical fall out of bed with resultant head trauma. Initial CT performed on 10/12/2024 revealed an asymmetric prominence in the extra-axial space adjacent to the right cerebrum measuring 4 mm which was new compared to 08/03/2024. Findings reportedly suggestive of chronic subdural hematoma versus hygroma per the initial radiology report. The patient has had [address] scans of the head in the meantime with similar findings. History: 1.Paroxysmal atrial fibrillation (12/2011). No documented recurrence, however hospitalized at [facility] in November, with decline in cognition and MRI of the brain which revealed scattered small acute infarcts consistent with embolic etiology therefore therapy with Eliquis initiated at that time. 2.Stable chronic coronary heart disease without angina, remote PCI stent in approximately 2000 ago at [place]. 3.Dyslipidemia 4.Diastolic dysfunction 5.DEMARIO Allergies Allergy/AdvReac Type Severity Reaction Status Date / Time paroxetine Allergy Severe ANAPHYLAXIS Verified 02/08/24 13:35 mold Allergy Intermediate asthma Verified 02/08/24 13:35 symptoms pollen extracts Allergy Intermediate asthma Verified 02/08/24 13:35 symptoms Penicillins Allergy Mild Unknown Verified 02/08/24 13:35 vasquez AdvReac Intermediate gas and Verified 02/08/24 13:35 bloating with consuption of green or kidneys beans broccoli AdvReac Intermediate GAS Verified 02/08/24 13:35 crab AdvReac Intermediate diarrhea Verified 02/08/24 13:35 grapefruit AdvReac Intermediate BRONCHITIS Verified 02/08/24 13:35 orange AdvReac Intermediate BRONCHITIS Verified 02/08/24 13:35 peanut AdvReac Intermediate gas/bloatin Verified 02/08/24 13:35 g Home Medications Medication Instructions Recorded Confirmed Type atorvastatin 20 mg tablet 20 mg PO HS 08/22/19 10/12/24 History metformin 850 mg tablet 850 mg PO BIDM 08/22/19 10/12/24 History montelukast 10 mg tablet 10 mg PO HS 08/22/19 10/12/24 History bimatoprost 0.01 % eye drops 1 drp OPB HS 05/08/22 10/12/24 History (Sumeet) fluticasone 250 mcg-salmeterol 50 1 inh inhalation BID 10/23/23 10/12/24 History mcg/dose blistr powdr for inhalation (Paul Inhub) oxybutynin chloride 10 mg 10 mg PO QAM 10/23/23 10/12/24 History tablet,extended release 24 hr levothyroxine 100 mcg tablet 100 mcg PO DAILYBB 12/02/23 10/12/24 History apixaban 5 mg tablet (Eliquis) 5 mg PO Q12 12/23/23 10/12/24 History losartan 100 mg tablet 100 mg PO DAILY 02/08/24 10/12/24 History metoprolol tartrate 25 mg tablet 12.5 mg PO BID 02/08/24 10/12/24 History cxhhhmhljcpl-regqjtyw-jynoyc tablet 1 tab PO DAILY 02/08/24 10/12/24 History ascorbic acid (vitamin C) 500 mg 500 mg PO DAILY 08/04/24 10/12/24 History tablet (Vitamin C) blood [facility] 08/04/24 08/04/24 History Verio test strips) cholecalciferol (vitamin D3) 25 25 mcg PO DAILY 08/04/24 10/12/24 History mcg (1,000 unit) capsule (Vitamin D3) coenzyme Q10 100 mg capsule 100 mg PO DAILY 08/04/24 10/12/24 History (CoQ-10) cyanocobalamin (vitamin B-12) 1,000 mcg PO DAILY 08/04/24 10/12/24 History 1,000 mcg tablet (Vitamin B-12) furosemide 20 mg tablet 20 mg PO 1XD 08/04/24 10/12/24 History lancets 30 gauge (OneTouch Delica 08/04/24 08/04/24 History Plus Lancet) magnesium oxide 400 mg (241.3 mg 400 mg PO DAILY 08/04/24 10/12/24 History magnesium) tablet potassium chloride 20 mEq 20 meq PO 1XD 08/04/24 10/12/24 History tablet,extended release(part/cryst) (Klor-Con M) zinc 50 mg tablet 50 mg PO DAILY 08/04/24 10/12/24 History amlodipine 5 mg tablet (Norvasc) 10 mg (2 x 5 mg) PO QAM #60 tabs 08/07/24 10/12/24 Rx Patient History Family History Father CHF (congestive heart failure) Mother Cancer Social History Smoking Status: Unknown if ever smoked Second Hand Exposure: No; Do You Dip or Chew Tobacco: No; Hx Alcohol Use: No Hx Substance Use: No Preferred Language: [place]orese Communication Ability: Effective Director Of 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 Work Required: No Beliefs That Will Affect Care: Congregational marital status: Life Partner Current Living Situation: Significant Other Current Living Situation Comment: s/o Feels Safe at Home: Yes Safety Concerns: Feels Safe At This Time Assistive Devices: Cane and Walker Review of Systems Review of Systems: All systems reviewed & are unremarkable except as noted in HPI & below Physical Exam Physical Exam: General: No acute distress, frail in appearance Eyes: conjunctiva are pink and non-injected, sclera clear Neck: normal jugular venous pulse, no hepatojugular reflux Chest: normal shape and normal respiratory effort Lungs: clear to auscultation and percussion Cardiac Exam: - regular heart sounds, no murmurs, rubs, or gallops, no jugular venous distention Abdomen: abdomen soft, non-tender, no abnormal masses and no hepatosplenomegaly Musculoskeletal: no gait disturbance, no weakness Extremities: no edema and no cyanosis Neuro:awake, conversant, follows commands, no focal motor deficits Psych: appropriate affect and insight. Results & Data Vital Signs (Past 12 Hours) Vital Signs Temp Pulse Pulse Resp BP BP Pulse Ox 10/16/24 08:46 36.8 C 76 18 137/58 L 98 10/16/24 08:00 52 L 10/16/24 04:17 54 L 147/68 H 10/16/24 03:56 36.7 C 56 L 16 175/62 H 98 10/15/24 23:46 56 L 151/65 H 10/15/24 22:41 62 O2 Del Method 10/16/24 08:46 Room Air 10/16/24 08:00 10/16/24 04:17 10/16/24 03:56 Room Air 10/15/24 23:46 10/15/24 22:41 Laboratory Results CBC 10/16/24 Range/Units 05:43 WBC 6.59 (4.8-10.8) K/ul RBC 3.95 L (4.20-5.40) M/uL Hgb 11.9 L (12.0-16.0) g/dl Hct 35.3 L (37.0-47.0) % Plt Count 260 (130-400) K/uL Comprehensive Metabolic Panel 10/16/24 Range/Units 05:43 Sodium 137 (136-145) mmol/L Potassium 4.2 (3.5-5.1) mmol/L Chloride 103 (98-107) mmol/L Carbon Dioxide 29 (21-32) mmol/L BUN 15 (6-23) mg/dl Creatinine 0.62 (0.6-1.2) mg/dl Glucose 117 H (70-99(Fasting)) mg/dl Calcium 9.5 (8.6-10.3) mg/dl Intake and Output 10/15/24 10/16/24 10/16/24 22:59 06:59 14:59 Intake Total 120 / 840 Balance 120 / 839 Intake: Oral 120 / 840 Other: # Unmeasured Voids 1 0 Weight 61.6 kg Weight Measurement Method Built in [facility] Diagnostic Findings Telemetry reveals sinus bradycardia and sinus rhythm in the 50s to 60s EKG performed 10/14/2024 at 4:51 AM revealed sinus bradycardia 55 bpm, normal EKG A transthoracic echocardiogram had been performed on 02/09/2024 with findings of normal LV systolic function, ejection fraction the range of 65 to 70%, mild aortic valve sclerosis without stenosis, moderate posterior mitral annular calcification, grade 1 diastolic dysfunction, intact interatrial septum noted at time of previous transesophageal echocardiogram in November, (1) Fall Encounter type: initial encounter Qualified Code(s): W19.XXXA - Unspecified fall, initial encounter (2) Head injury Encounter type: initial encounter Qualified Code(s): S09.90XA - Unspecified injury of head, initial encounter
[2024-10-16 12:08] VITALS: O2SAT 97
--- NOTE | 2024-10-16 13:58 | Discharge Summary ---
Date of Service October 16, 2024 Admission HPI Per Admitting Provider The patient is an 84-year-old woman with past medical history of chronic diastolic CHF, PAF on Eliquis, CVA, CAD s/p stent, HLD, HTN, DEMARIO on CPAP, previous [id number] A1c 5.3, hypothyroidism who presents to the ED on 10/12/2024 after mechanical fall. Patient said she woke up around 3 AM last night and attempted to go to the bathroom. She reports getting tangled in the bedsheet and fell and hit the back of her head on the rails of the bed. Reports getting herself de tangled and got herself up and went to sit in the living room. The patient denies passing out. She reports coming to the ER toDay with concerns of posterior head pain and neck pain from the fall. She was seen by visiting nurse today who encouraged her to go to the ER. She otherwise denies any fever/chills/chest pain/shortness of breath/ palpitations/nausea/vomiting/diarrhea. She denies any abdominal pain. She is awake alert and oriented on exam and has no neurodeficits. On arrival to the ED, labs are fairly unremarkable, troponin negative Chest x-ray and cervical spine CT were negative for any acute findings CT of the head showed asymmetric prominence of the extra-axial space adjacent to the right cerebrum with CSF density measuring up to 4 mm. This is a new finding from 08/03/2024. Findings suggestive of chronic subdural hematoma versus hygroma. The ER physician spoke to the interventional radiologist on-call they recom mended repeat CT scan in 24 hours The patient will be admitted for further monitoring Admission Exam Per Admitting Provider Constitutional: WD/WN, vitals as above Eyes: PERRL, conjunctivae normal, anicteric sclerae ENMT: external ear and nose normal, oropharynx normal Neck: trachea midline, no thyromegaly Respiratory: normal respiratory effort, lungs clear to auscultation Cardiovascular: RRR, no murmur, no edema Chest (Breasts): normal inspection/palpation of breasts Musculoskeletal: no cyanosis or clubbing, extremities motor strength 5/5 Skin: no rashes, warm and dry Neurologic: PERRL, EOMI, accommodation nl, no face palsy, no dysarthria Lymphatic: no cervical or axillary lymphadenopathy Principal Diagnosis Chronic SDH versus hygroma Recurrent falls Discharge Exam General- adult elderly female seen at bedside. Eyes- PERRL, EOMI, anicteric ENT- oropharynx clear Neck- supple, no JVD, no adenopathy, no thyromegaly; carotids +2/2, no bruits appreciated Lungs- clear to auscultation and percussion Heart- regular rhythm; no murmur, no gallop, no rub appreciated Abdomen- normal bowel sounds, soft, nontender, no masses or hepatosplenomegaly Extremities- no pretibial edema, no calf tenderness; peripheral pulses intact Neuro- alert, oriented x 3; PERRL, EOMI; no facial palsy; no dysarthria; motor 5/5 bilaterally; no cogwheel rigidity; patellar DTRs +2/2; toes downgoing bilaterally; finger to nose intact bilaterally Skin- warm & dry Discharge Data Allergies Allergy/AdvReac Type Severity Reaction Status Date / Time paroxetine Allergy Severe ANAPHYLAXIS Verified 02/08/24 13:35 mold Allergy Intermediate asthma Verified 02/08/24 13:35 symptoms pollen extracts Allergy Intermediate asthma Verified 02/08/24 13:35 symptoms Penicillins Allergy Mild Unknown Verified 02/08/24 13:35 vasquez AdvReac Intermediate gas and Verified 02/08/24 13:35 bloating with consuption of green or kidneys beans broccoli AdvReac Intermediate GAS Verified 02/08/24 13:35 crab AdvReac Intermediate diarrhea Verified 02/08/24 13:35 grapefruit AdvReac Intermediate BRONCHITIS Verified 02/08/24 13:35 orange AdvReac Intermediate BRONCHITIS Verified 02/08/24 13:35 peanut AdvReac Intermediate gas/bloatin Verified 02/08/24 13:35 g Consultations 10/12/24 15:32 ED Decision to Admit Stat 10/16/24 09:25 Consult Cardiology Routine Ordered Studies 10/12/24 13:32 CT cervical spine wo con Stat CT head/brain wo con Stat 10/13/24 08:00 CT head/brain wo con DAILY 10/14/24 17:47 CT head/brain wo con Urgent 10/15/24 04:50 CT head/brain wo con Stat Hospital Course (1) HTN (hypertension): (2) CAD (coronary artery disease): (3) T2DM (type 2 diabetes mellitus): (4) HLD (hyperlipidemia): (5) PAF (paroxysmal atrial fibrillation): (6) DEMARIO (obstructive sleep apnea): (7) Asthma: (8) Hypothyroidism: Plan She was managed for the following: Mechanical fall PT evaled, recommends home w/ HH Increase activity Chronic SDH versus hygroma Initial CT findings showed new SDH versus hygroma from 08/03/2024. Repeat CT scan 10/13 shows no change and no evidence of acute bleeding. - ED has d/w Ix NSG at admission, Eliquis has been on hold. - Hb has been stable aroun -. No neurodeficits or mentation changes. - d/w Neuro 10/14, given elderly w/ increased risk of fall and concern of SDH recommends against resuming after further discussion w/ family and patients. Hx AF/HTN/HLD/chronic diastolic CHF: Continue metoprolol, hold Eliquis, continue amlodipine/losartan/Lasix/statin. ho embolic stroke in nov when eliquis was started. d/w Titus (pt's son) over the phone 10/14/24, he states she possibly had 4-5 times fall in the last one year, she lives w/ SO who is very [place] and now developing dementia. I explained to him the risk of eliquis iso concern for SDH and my discussion w/ neurology who recommends possibly stop eliquis given high risk of falls. He is not agreeable to any kind of decision on eliquis until Dr. Peacock sees the patient. Since pt is yet to be evaled by PT/OT and appears from schedule (online) dr Peacock is joining on Wednesday, we will consult Dr. Peacock on Wednesday per Pt's son request to have his opinion on pt's eliquis. For now, pt is agreeable to hold eliquis until Dr. Peacock sees her on Wednesday. Cards evaled 10/16, stop eliquis and start baby aspirin. Pt's son communicated, he stated she understands and he already had d/w cardio regarding stopping eliquis and starting baby aspirin daily. Hx hypothyroidism: Continue Synthroid Hx DM2: Hold metformin, A1c 5.4 this admission, sugar within normal limits Hx asthma: Continue home inhaler/montelukast A total of 55 minutes was spent on chart review/facilitating plan of care/reviewing diagnostic data/discussion with consultants Full code DVT prophylaxis: Zac milton. SCDs. Time spent: 52 min Dispo: awaiting PT/OT eval. Cards eval on Wednesday. following instructions were communicated to patient's son over the phone as well. Patient is being discharged home with home health with following instruction at the point of discharge: Follow-up with your primary care physician within a week time and likely you will need labs CBC/CMP/magnesium/phosphorus. You are admitted for fall, you were noted to have chronic subdural hematoma. With the background of recurrent falls and advancing age, you had been evaluated by neurology and cardiology and recommendation is to hold your blood thinner Eliquis. You have been started on baby aspirin daily. Follow up with neurology in 2-4 weeks time. Continue with home health physical therapy, institute fall precaution at home. For your headache, you can use OTC Tylenol per drier belt conveyor recommendation. If with increasing headache or unusual headache symptoms recommend repeating CT scan. Coordinate either with your PCP office or come to the ED. Take your medications as prescribed. Please make sure that you are able to get your medications today by calling your pharmacy before you leave the hospital so that your treatment continuity is not broken. Home Health Attestation I certify that this patient is under my care and that I, or a physicians boilermaker's assistant working with me, had a face to-face encounter that meets the home health [id number] encounter requirements with this patient. The encounter with the patient was in whole, or in part, for the following me dical condition, which is the primary reason for home health care (list medical condition): Fall I certify that, based on my findings, the following services are medically n ecessary home health services: My clinical findings support the need for the above services because: Caregiver Instruct Med Mgmt, Safety, Disease Process, Signs to Report Daily Weights Home Safety Assessment Hydration / Nutrition Medication Compliance and Monitoring Effective of New Medications Medication Ophthalmic Lens Inspector Incision for Infection OT Assess ADL Status and Restore Function w ADLs PT Assessment for Endurance / Balance / Strength PT Eval for Safety and Mobility PT Eval for Safety, Gait Training, Assistive Devices PT Gait and Balance Training, Strengthening and Safety Safety Skilled Nsg Assessment Skilled Nsg Instruction New Medications Skilled Nsg Assess Pt Illness, Disease and Sx Monitoring S/S to Report to Provider Teach on Disease Management and Interventions Vital Signs Further, I certify that my clinical findings support that this patient is homebound (i.e. absences from home require considerable and taxing effort and are for medical reasons or confucianist services or infrequently or of short duration when for other reasons) because: Supportive Aid - Walker Transportation Assistance/Unable to Leave Home Unassisted Certification for Home Health Services: Based on the above findings, I certify that this patient is confined to the home and needs intermittent usp care, physical therapy and/or speech therapy or continues to need occupational therapy. The patient is under my care, and I have initiated the establishment of the plan of care. This patient will be followed by a physician who will periodically review the plan of care. Total Time Total Time Spent Total Time Spent (In Minutes): 45 Discharge Plan Discharge Items Patient Disposition: Home - Home Health Services Reason For Visit: FALL, HEADACHE Discharge Diagnosis: Chronic SDH versus hygroma Recurrent falls Activity: As commented below Activity Comment: c/w Home PT/OT. Fall precautions at home. Non-emergency contact: Primary Care Provider Call non-emergency contact if: you have any medication questions, your symptoms worsen and your pain is unusual for you Follow-up/Referrals: Lilo Marquez, [Primary Care Provider] - Diet: Heart Healthy Addtl Attending Provider Instructions: Follow-up with your primary care physician within a week time and likely you will need labs CBC/CMP/magnesium/phosphorus. You are admitted for fall, you were noted to have chronic subdural hematoma. With the background of recurrent falls and advancing age, you had been evaluated by neurology and cardiology and recommendation is to hold your blood thinner Eliquis. You have been started on baby aspirin daily. Follow up with neurology in 2-4 weeks time. Continue with home health physical therapy, institute fall precaution at home. For your headache, you can use OTC Tylenol per drier belt conveyor recommendation. If with increasing headache or unusual headache symptoms recommend repeating CT scan. Coordinate either with your PCP office or come to the ED. Take your medications as prescribed. Please make sure that you are able to get your medications today by calling your pharmacy before you leave the hospital so that your treatment continuity is not broken. Pending Studies at Discharge: No Stand-Alone Forms: My [employer], Smoking Cessation Medications and DC Order Prescriptions: New aspirin 81 mg Tablet,Delayed Release (Dr/Ec) 81 mg PO QAM Qty: 30 0RF polyethylene glycol 3350 [Miralax] 17 gram Powder In Packet 17 g PO DAILY PRN (Reason: laxative effect) Qty: 30 0RF Continued atorvastatin 20 mg tablet 20 mg PO HS montelukast 10 mg tablet 10 mg PO HS metformin 850 mg tablet 850 mg PO BIDM Lumigan 0.01 % Drops 1 drp OPB HS oxybutynin chloride 10 mg tablet extended release 24hr 10 mg PO QAM fluticasone propion-salmeterol [Wixela Inhub] 250-50 mcg/dose blister with device 1 inh INHALATION BID levothyroxine 100 mcg Tablet 100 mcg PO DAILYBB losartan 100 mg tablet 100 mg PO DAILY smootxeraudy-mmrloijv-jdricp Tablet 1 tab PO DAILY metoprolol tartrate 25 mg tablet 12.5 mg PO BID (DME) OneTouch Verio test strips Strip MISCELLANEOUS furosemide 20 mg tablet 20 mg PO 1XD (DME) lancets [InSupplyTouch Delica Plus Lancet] 30 gauge misc MISCELLANEOUS cyanocobalamin (vitamin B-12) [Vitamin B-12] 1,000 mcg Tablet 1,000 mcg PO DAILY potassium chloride [Klor-Con M20] 20 mEq Tablet,Er Particles/Crystals 20 meq PO 1XD magnesium oxide 400 mg (241.3 mg magnesium) Tablet 400 mg PO DAILY ascorbic acid (vitamin C) [Vitamin C] 500 mg Tablet 500 mg PO DAILY zinc 50 mg Tablet 50 mg PO DAILY cholecalciferol (vitamin D3) [Vitamin D3] 25 mcg (1,000 unit) Capsule 25 mcg PO DAILY coenzyme Q10 [CoQ-10] 100 mg Capsule 100 mg PO DAILY amlodipine [Norvasc] 5 mg Tablet 10 mg PO QAM Qty: 60 0RF Discontinued Eliquis 5 mg tablet 5 mg PO Q12 Discharge Orders: Discharge Order (Routine); Ordered 10/16/24 Ordered By: Jair Ivey Admission Data Admit Date/Time: 10/12/24 16:59 Attending Provider: Jair Ivey Admit Provider: Jair Ivey Primary Care Provider: Lilo Marquez Other Providers: Jair Ivey; Jhonatan Nobles [facility]; Chace Peacock
[2024-10-16 15:40] VITALS: PULSE 59; TEMP 98.2
[2024-10-16 17:34] VITALS: BP 147/68
--- NOTE | 2024-10-16 21:41 | Electrocardiogram Report ---
Test Reason : Blood Pressure : */* mmHG Vent. Rate : 55 BPM Atrial Rate : 55 BPM P-R Int : 192 ms QRS Dur : 90 ms QT Int : 448 ms P-R-T Axes : 47 -22 24 degrees QTcB Int : 428 ms Sinus bradycardia Otherwise normal ECG When compared with ECG of 13-Oct-2024 04:44, No significant change was found Confirmed by Elmo Brown ([id number]) on 10/16/2024 9:41:29 PM Referred By: REFERRED SELF Confirmed By: Elmo Brown
[2024-10-17] MEDS ORDERED: ASPIRIN 81 MG ECTAB PO SCH (09:00)
== END 2024-10-16 18:15 | disposition home health service (06) | DRG 65 ==
LOC: ED 13:23 → 2E 16:59 → SUATTDRO 16:59 → 2E 18:11

== ENCOUNTER 2024-12-28 10:37 | Observation (INO) ==
--- NOTE | 2024-12-28 10:51 | Emergency Department Note ---
Impression & Plan Acute UTI, Hypertension, Weakness, Confusion ED Provider Note NAME: ERNIE WELLER AGE: 84 SEX: F : 1940 ARRIVES VIA: Ambulance INFORMANT: Patient ED PROVIDER(S): Bowen Marie DO CHIEF COMPLAINT: Urinary frequency and urgency HPI: Patient is an 84-year-old female with a past medical history of bradycardia, hypomanic, strokelike symptoms, hypertension, CAD, paroxysmal A-fib who presents to the ER for dysuria urgency or frequency. Symptoms have been present for the last 2 days. Home health presented to her house to check her urine and she was found to be hypertensive with systolics in the 170s and consequently was referred into the ER. She admits to a faint headache. No change or loss of vision. No chest pain or shortness of breath. No other exacerbating or remitting factors. No weakness or numbness in the arms or legs. No other complaints at this time. ADDITIONAL HISTORY OBTAINED: Per HPI Chronic Medical/Social Conditions Affecting Care: Per HPI PAST MEDICAL HISTORY:See Below PAST SURGICAL HISTORY:See Below FAMILY HISTORY:See Below SOCIAL HISTORY:See Below HOME MEDICATIONS:See Below ALLERGIES:See Below VITALS:See Below PHYSICAL EXAMINATION: GENERAL: Sitting up in bed, alert, well appearing, well nourished, no distress, non-toxic EYE EXAM: normal conjunctiva. PERRL and EOM's intact. OROPHARYNX: no exudate, no erythema, lips, buccal mucosa, and tongue normal and mucous membranes are moist NECK: supple, no nuchal rigidity, no adenopathy, non-tender LUNGS: Clear to auscultation. Normal chest wall mechanics HEART: no murmurs, S1 normal and S2 normal ABDOMEN: abdomen soft, non-tender, normo-active bowel sounds, no masses, no rebound or guarding. BACK: Back is symmetrical on inspection and there is no deformity, no midline tenderness, no CVA tenderness. SKIN: no rashes and no bruising UPPER EXTREMITIES: upper extremities are grossly normal. LOWER EXTREMITIES: No pitting edema. NEURO EXAM: Normal sensorium, cranial nerves II-XII intact, normal speech, no weakness of arms, no weakness of legs. No drift. Finger to nose intact. Gross sensation intact. MEDICAL DECISION MAKING: Patient is an 84-year-old female who presents to the ER for the above-stated complaint. IV was established blood work was obtained. Son provides additional history who presented at bedside notes that patient has been confused intermittently and that is why he believes that she has a UTI. Patient was significantly hypertensive with systolics in the 200s. She was given IV hydralazine. Blood pressure trended down to the 180s. Labs show no significant leukocytosis or anemia. BMP along with LFTs bilirubin and troponin was negative. Lipase was normal. UA consistent with UTI. Patient was given IV Rocephin. She was updated bedside. Discussed case with hospitalist for further evaluation management treatment. Consults/Care Managements Discussions: Per [facility] Triage Nursing notes reviewed. Limited review of prior medical records performed Vital Signs: reviewed and remarkable for HTN Differential diagnosis: Differential diagnoses includes but is not limited to gastritis, peptic ulcer disease, GERD, gallbladder disease, pancreatitis, small bowel obstruction, appendicitis, diverticulitis, hernia, urinary tract infection, torsion, perforation, trauma, infectious. ER treatment provided: See below Diagnostics interpreted by me include EKG and cardiac monitoring as listed below: -Cardiac Monitoring: An order was placed for continuous cardiac monitoring. The monitor shows a rate of 60 with sinus rhythm. -ECG: none -Laboratory studies:Interpreted by me as stated above in MDM and shown below. Imaging studies: Xrays: As interpreted by me:none CTs show: CT of the head shows no acute pathology Procedures: None Critical Care: None Past Med/Surg History Problem List Confusion (Acute) Weakness (Acute) Hypertension (Acute) Acute UTI (Acute) UTI (urinary tract infection) Hypertensive urgency Cervical strain, acute (Acute) Fall (Acute) Head injury (Acute) Drug-induced sinus bradycardia Hiatal hernia with GERD Vasovagal syncope Acute hypoxemic respiratory failure Hypomagnesemia (Acute) Vomiting (Acute) Chest pain (Acute) Syncope (Acute) Hypomagnesemia (Acute) Stroke-like symptoms (Acute) Nausea & vomiting (Acute) Arthralgia Embolic stroke Elevated troponin Near syncope Ambulatory dysfunction (Acute) Chronic pain in left foot (Acute) Hypomagnesemia (Acute) Generalized weakness (Acute) Osteoarthritis of ankle, left HTN (hypertension) Left ankle swelling (Acute) Hypomagnesemia (Acute) Syncope and collapse (Acute) Right rotator cuff tear Right knee DJD Hypokalemia CAD (coronary artery disease) (Chronic) stent in 1999 Anemia (Acute) Postoperative bleeding from mouth (Acute) Orthostatic syncope (Acute) Chronic anticoagulation (Acute) Near syncope DVT prophylaxis Postoperative bleeding from mouth History of rotator cuff surgery (Chronic) History of cataract extraction (Chronic) T2DM (type 2 diabetes mellitus) (Chronic) HTN (hypertension) (Chronic) HLD (hyperlipidemia) (Chronic) PAF (paroxysmal atrial fibrillation) (Chronic) DEMARIO (obstructive sleep apnea) (Chronic) Asthma (Chronic) CKD (chronic kidney disease) stage 3, GFR 30-59 ml/min (Chronic) Primary open angle glaucoma (Chronic) History of arthroscopic knee surgery (Chronic) History of tonsillectomy (Chronic) GERD (gastroesophageal reflux disease) (Chronic) History of appendectomy (Chronic) Hypothyroidism (Chronic) History of placement of stent in LAD coronary artery (Chronic) Sleep apnea (Chronic) Stented coronary artery (Chronic) Family History Father CHF (congestive heart failure) Mother Cancer Social History Smoking Status: Unknown if ever smoked Second Hand Exposure: No; Do You Dip or Chew Tobacco: No; Hx Alcohol Use: No Hx Substance Use: No Preferred Language: Armenian Communication Ability: Effective 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 Beliefs That Will Affect Care: Holiness marital status: Life Partner Current Living Situation: Significant Other Current Living Situation Comment: s/o Feels Safe at Home: Yes Assistive Devices: Cane and Walker Allergies Allergies Allergy/AdvReac Type Severity Reaction Status Date / Time paroxetine Allergy Severe ANAPHYLAXIS Verified 02/08/24 13:35 mold Allergy Intermediate asthma Verified 02/08/24 13:35 symptoms pollen extracts Allergy Intermediate asthma Verified 02/08/24 13:35 symptoms Penicillins Allergy Mild Unknown Verified 02/08/24 13:35 vasquez AdvReac Intermediate gas and Verified 02/08/24 13:35 bloating with consuption of green or kidneys beans broccoli AdvReac Intermediate GAS Verified 02/08/24 13:35 crab AdvReac Intermediate diarrhea Verified 02/08/24 13:35 grapefruit AdvReac Intermediate BRONCHITIS Verified 02/08/24 13:35 orange AdvReac Intermediate BRONCHITIS Verified 02/08/24 13:35 peanut AdvReac Intermediate gas/bloatin Verified 02/08/24 13:35 g Home Meds Home Medications Medication Instructions Recorded Confirmed atorvastatin 20 mg tablet 20 mg PO HS 08/22/19 12/28/24 montelukast 10 mg tablet 10 mg PO HS 08/22/19 12/28/24 bimatoprost 0.01 % eye drops 1 drp OPB HS 05/08/22 12/28/24 (Sumeet) fluticasone 250 mcg-salmeterol 50 1 inh inhalation BID 10/23/23 12/28/24 mcg/dose blistr powdr for inhalation (Wixela Inhub) oxybutynin chloride 10 mg 10 mg PO QAM 10/23/23 12/28/24 tablet,extended release 24 hr levothyroxine 100 mcg tablet 100 mcg PO DAILYBB 12/02/23 12/28/24 losartan 100 mg tablet 100 mg PO DAILY 02/08/24 12/28/24 metoprolol tartrate 25 mg tablet 25 mg PO BID 02/08/24 12/28/24 [id number]-whzcbzji-nommpe tablet 1 tab PO DAILY 02/08/24 12/28/24 blood sugar diagnostic ([facility] 08/04/24 12/28/24 Verio test strips) cholecalciferol (vitamin D3) 25 25 mcg PO DAILY 08/04/24 12/28/24 mcg (1,000 unit) capsule (Vitamin D3) coenzyme Q10 100 mg capsule 100 mg PO DAILY 08/04/24 12/28/24 (CoQ-10) cyanocobalamin (vitamin B-12) 1,000 mcg PO DAILY 08/04/24 12/28/24 1,000 mcg tablet (Vitamin B-12) lancets 30 gauge ([facility] 08/04/24 12/28/24 Plus Lancet) magnesium oxide 400 mg (241.3 mg 400 mg PO DAILY 08/04/24 12/28/24 magnesium) tablet potassium chloride 20 mEq 20 meq PO DAILY 08/04/24 12/28/24 tablet,extended release(part/cryst) (Klor-Con M) zinc 50 mg tablet 50 mg PO DAILY 08/04/24 12/28/24 hydralazine 25 mg tablet 25 mg PO AMHS 12/28/24 12/28/24 pantoprazole 40 mg tablet,delayed 40 mg PO DAILY 12/28/24 12/28/24 release sodium chloride 1,000 mg soluble 1,000 mg PO BID 12/28/24 12/28/24 tablet Previous Rx's Medication Instructions Recorded aspirin 81 mg tablet,delayed 81 mg PO QAM #30 tabs 10/16/24 release polyethylene glycol 3350 17 gram 17 g PO DAILY PRN laxative effect 10/16/24 oral powder packet (Miralax) #30 ea Results & Data (ED) Vital Signs Vital Signs - 24 hr 12/28/24 10:47 12/28/24 10:47 12/28/24 10:59 Temperature 36.4 C L Temperature Source Oral Pulse Rate 60 73 Pulse Rate [Apical] 61 Pulse Rate from SpO2 Sensor Respiratory Rate 18 18 Respiratory Effort / Characteristics Non-Labored Non-Labored Respiratory Depth Normal Normal Blood Pressure 209/85 H Blood Pressure [Right Arm] Blood Pressure Mean 126 Blood Pressure Mean [Right Arm] Pulse Oximetry 97 Oxygen Delivery Method Room Air Sepsis Recent Fever Within 48 Hours No Sepsis New/Unexplained Change in Mental Status No Sepsis Action Taken by Nursing No Action Required 12/28/24 11:10 12/28/24 11:48 12/28/24 12:21 Temperature Temperature Source Pulse Rate 60 Pulse Rate [Apical] 60 Pulse Rate from SpO2 Sensor Respiratory Rate 16 16 Respiratory Effort / Characteristics Non-Labored Respiratory Depth Normal Blood Pressure 159/66 H Blood Pressure [Right Arm] 195/81 H Blood Pressure Mean 97 Blood Pressure Mean [Right Arm] 119 Pulse Oximetry 95 96 Oxygen Delivery Method Room Air Room Air Room Air Sepsis Recent Fever Within 48 Hours Sepsis New/Unexplained Change in Mental Status Sepsis Action Taken by Nursing 12/28/24 12:45 12/28/24 13:06 Temperature Temperature Source Pulse Rate 58 L Pulse Rate [Apical] 57 L Pulse Rate from SpO2 Sensor 58 L Respiratory Rate 20 16 Respiratory Effort / Characteristics Non-Labored Respiratory Depth Normal Blood Pressure 183/70 H Blood Pressure [Right Arm] Blood Pressure Mean 107 Blood Pressure Mean [Right Arm] Pulse Oximetry 97 97 Oxygen Delivery Method Room Air Room Air Sepsis Recent Fever Within 48 Hours Sepsis New/Unexplained Change in Mental Status Sepsis Action Taken by Nursing Laboratory Data 12/28/24 11:00 12/28/24 11:00 Lab Results 12/28/24 12/28/24 Range/Units 10:50 11:00 WBC 6.46 (4.8-10.8) K/ul RBC 4.18 L (4.20-5.40) M/uL Hgb 12.4 (12.0-16.0) g/dl Hct 38.5 (37.0-47.0) % MCV 92.1 (80.0-100.0) fL MCH 29.7 (25.0-34.0) pg MCHC 32.2 (32.0-36.0) g/dL RDW Std Deviation 49.8 H (36.4-46.3) fL RDW Coeff of Stoney 14.7 H (11.5-14.5) % Plt Count 234 (130-400) K/uL MPV 12.3 (9.4-12.4) fL Immature Gran % (Auto) 0.3 % Neut % (Auto) 69.6 % Lymph % (Auto) 19.2 % [place] % (Auto) 8.4 % Eos % (Auto) 2.0 % Baso % (Auto) 0.5 % Neut # (Auto) 4.50 (1.40-6.50) K/uL Lymph # (Auto) 1.24 (1.20-3.40) K/uL [place] # (Auto) 0.54 (0.11-0.59) K/uL Eos # (Auto) 0.13 (0.00-0.50) K/uL Baso # (Auto) 0.03 (0.00-0.20) K/uL Immature Gran # (Auto) 0.02 (0.01-0.20) K/uL Sodium 140 (136-145) mmol/L Potassium 4.1 (3.5-5.1) mmol/L Chloride 106 (98-107) mmol/L Carbon Dioxide 28 (21-32) mmol/L Anion Gap 6 (3-11) BUN 13 (6-23) mg/dl Creatinine 0.68 (0.6-1.2) mg/dl Est Cr Clr Drug Dosing 45.6 ml/min eGFR 85.29 BUN/Creatinine Ratio 19.1 (10-20) Glucose 107 H (70-99(Fasting)) mg/dl Calcium 9.1 (8.6-10.3) mg/dl Total Bilirubin 0.5 (0.2-1.0) mg/dl AST 15 (13-39) U/L ALT 9 (7-52) U/L Alkaline Phosphatase 40 (34-104) U/L Troponin I High Sens 6.6 (0-14) pg/ml Total Protein 6.2 (6.0-8.3) gm/dl Albumin 3.8 (3.4-5.0) gm/dl Globulin 2.4 L (2.5-4.0) gm/dl Albumin/Globulin Ratio 1.6 (0.9-2) Lipase 14 (11-82) U/L Urine Color Yellow Urine Appearance Clear (Clear) Urine pH 8.5 H (4.5-7.5) Ur Specific [place] 1.009 (1.000-1.030) Urine Protein Negative (Negative) Urine Glucose (UA) Negative (Negative) Urine Ketones Negative (Negative) Urine Blood Trace H (Negative) Urine Nitrite Negative (Negative) Urine Bilirubin Negative (Negative) Urine Urobilinogen Negative (Negative) Ur Leukocyte Esterase 3+ H (Negative) Urine WBC (Auto) >50 H (0-5) /hpf Urine RBC (Auto) 0-2 (0-2) /hpf U Hyaline Cast (Auto) 3-5 H (0-2) /lpf U Epithel Cells (Auto) 0-2 (0-2) /hpf Urine Bacteria (Auto) 2+ H (None Seen) Administered Medications Discontinued Medications Hydralazine HCl (Hydralazine Hcl 20 Mg/Ml Vial) 10 mg IV NOW STA Stop: 12/28/24 11:40 Last Admin: 12/28/24 11:45 Dose: 10 mg Documented By: TRINY Ceftriaxone Sodium (Rocephin) 2,000 mg in 50 mls @ 100 mls/hr IV NOW STA Stop: 12/28/24 12:08 Last Infusion: 12/28/24 12:22 Dose: Infused Documented By: Admin: 12/28/24 11:45 Dose: 100 mls/hr Documented By: TRINY Imaging Data Radiologist's Impression: Head CT 12/28/24 11:07 CT head/brain wo con CLINICAL HISTORY: 84 years-old Female with ams. Acutely altered mental status TECHNIQUE: Multiple axial CT images of the head were obtained without contrast. A dose lowering technique was utilized adhering to the principles of ALARA. CT DOSE: 625.8 mGy.cm COMPARISON: Head CTs dated 10/15/2024, 10/14/2024 and 10/13/2024. FINDINGS: No acute intracranial hemorrhage, midline shift, intracranial mass, hydrocephalus, territorial ischemia or abnormal extra-axial collection. Resolution of the previously noted small subdural collection adjacent to the right superior frontal lobe. Involutional changes with white matter hypodensities suggestive of chronic vascular ischemic disease, unchanged. Partially empty sella The calvarium is intact. The paranasal sinuses, mastoid air cells, and middle ear cavities are clear. IMPRESSION: 1. No acute intracranial abnormality. 2. Resolution of the previously noted subcentimeter subdural collection adjacent to the right cerebral convexity. ACT 112: Negative or not required by law. The above report was generated using voice recognition software. It may contain grammatical, syntax or spelling errors. Electronically signed by: Talib Morales M.D. 12/28/2024 11:34 AM Discharge Plan Visit Data Chief Complaint: Urinary Symptoms Stated Complaint: URINARY SYMPTOMS ED Provider: Bowen Marie Discharge Problem: Acute UTI, Hypertension, Weakness, Confusion Forms Stand Alone Forms: My [facility] Prescriptions Prescriptions: No Action atorvastatin 20 mg tablet 20 mg PO HS montelukast 10 mg tablet 10 mg PO HS Lumigan 0.01 % Drops 1 drp OPB HS oxybutynin chloride 10 mg tablet extended release 24hr 10 mg PO QAM fluticasone propion-salmeterol [Wixela Inhub] 250-50 mcg/dose blister with device 1 inh INHALATION BID levothyroxine 100 mcg Tablet 100 mcg PO DAILYBB losartan 100 mg tablet 100 mg PO DAILY ipjnpvhqzwph-iwwgyjzr-fmytuz Tablet 1 tab PO DAILY metoprolol tartrate 25 mg tablet 25 mg PO BID aspirin 81 mg Tablet,Delayed Release (Dr/Ec) 81 mg PO QAM Qty: 30 0RF polyethylene glycol 3350 [Miralax] 17 gram Powder In Packet 17 g PO DAILY PRN (Reason: laxative effect) Qty: 30 0RF hydralazine 25 mg tablet 25 mg PO AMHS pantoprazole 40 mg tablet,delayed release (DR/EC) 40 mg PO DAILY sodium chloride 1,000 mg tablet,soluble 1,000 mg PO BID (DME) OneTouch Verio test strips Strip MISCELLANEOUS (DME) lancets [OneTouch Delica Plus Lancet] 30 gauge misc MISCELLANEOUS cyanocobalamin (vitamin B-12) [Vitamin B-12] 1,000 mcg Tablet 1,000 mcg PO DAILY potassium chloride [Klor-Con M20] 20 mEq Tablet,Er Particles/Crystals 20 meq PO DAILY magnesium oxide 400 mg (241.3 mg magnesium) Tablet 400 mg PO DAILY zinc 50 mg Tablet 50 mg PO DAILY cholecalciferol (vitamin D3) [Vitamin D3] 25 mcg (1,000 unit) Capsule 25 mcg PO DAILY coenzyme Q10 [CoQ-10] 100 mg Capsule 100 mg PO DAILY Referrals Referrals: Lilo Marquez DO [Outside Practitioners] - Discharge Problem: Hypertension Qualifiers: Hypertension type: unspecified Qualified Code(s): I10 - Essential (primary) hypertension
[2024-12-28 11:28] LABS: Basophils # (auto) 0.03 K/uL (0.00-0.20); Basophils % (auto) 0.5 %; Eosinophils # (auto) 0.13 K/uL (0.00-0.50); Hematocrit (blood only) 38.5 % (37.0-47.0); Hemoglobin 12.4 g/dl (12.0-16.0); Immature Granulocytes # (auto) 0.02 K/uL (0.01-0.20); Immature Granulocytes % (auto) 0.3 %; Lymphocytes # (auto) 1.24 K/uL (1.20-3.40); Lymphocytes % (auto) 19.2 %; Mean Corpuscular Hemoglobin 29.7 pg (25.0-34.0); Mean Corpuscular Hgb Conc 32.2 g/dL (32.0-36.0); Mean Corpuscular Volume 92.1 fL (80.0-100.0); Mean Platelet Volume 12.3 fL (9.4-12.4); Monocytes # (auto) 0.54 K/uL (0.11-0.59); Monocytes % (auto) 8.4 %; Neutrophils % (auto) 69.6 %; Platelet Count 234 K/uL (130-400); RDW Coefficient of Variation 14.7 % (11.5-14.5); RDW Standard Deviation 49.8 fL (36.4-46.3); Red Blood Count 4.18 M/uL (4.20-5.40); White Blood Count 6.46 K/ul (4.8-10.8)
[2024-12-28 11:35] LABS: Appearance Urine Clear (Clear); Bacteria Urine Automated 2+ (None Seen); Bilirubin Urine Negative (Negative); Blood Urine Trace (Negative); Color Urine Yellow; Epithelial Cell Urine Auto 0-2 /hpf (0-2); Glucose Urine UA Negative (Negative); Ketones Urine Negative (Negative); Leukocyte Esterase Urine 3+ (Negative); Nitrite Urine Negative (Negative); Protein Urine Negative (Negative); RBC Urine Automated 0-2 /hpf (0-2); Specific Gravity Urine 1.009 (1.000-1.030); Urobilinogen Urine Negative (Negative); WBC Urine Automated >50 /hpf (0-5); pH Urine 8.5 (4.5-7.5)
--- NOTE | 2024-12-28 11:36 | CT Scan Report ---
CT head/brain wo con CLINICAL HISTORY: 84 years-old Female with ams. Acutely altered mental status TECHNIQUE: Multiple axial CT images of the head were obtained without contrast. A dose lowering tech nique was utilized adhering to the principles of ALARA. CT DOSE: 625.8 mGy.cm COMPARISON: Head CTs dated 10/15/2024, 10/14/2024 and 10/13/2024. FINDINGS: No acute intracranial hemorrhage, midline shift, intracranial mass, hydrocephalus, territorial ischem ia or abnormal extra-axial collection. Resolution of the previously noted small subdural collection a djacent to the right superior frontal lobe. Involutional changes with white matter hypodensities sugg estive of chronic vascular ischemic disease, unchanged. Partially empty sella The calvarium is intact. The paranasal sinuses, mastoid air cells, and middle ear cavities are clear . IMPRESSION: 1. No acute intracranial abnormality. 2. Resolution of the previously noted subcentimeter subdural collection adjacent to the right cerebra l convexity. ACT 112: Negative or not required by law. The above report was generated using voice recognition software. It may contain grammatical, syntax o r spelling errors. Electronically signed by: Talib Morales M.D. 12/28/2024 11:34 AM
[2024-12-28 11:37] LABS: Albumin Globulin Ratio 1.6 (0.9-2); Albumin Level 3.8 gm/dl (3.4-5.0); BUN Creatinine Ratio 19.1 (10-20); Bilirubin,Total 0.5 mg/dl (0.2-1.0); Calcium 9.1 mg/dl (8.6-10.3); Creatinine Clr Calc Pharmacy 45.6 ml/min; Globulin 2.4 gm/dl (2.5-4.0); Potassium 4.1 mmol/L (3.5-5.1); Total Protein 6.2 gm/dl (6.0-8.3)
[2024-12-28] MEDS: cefTRIAXone SODIUM 2,000 MG/50 ML BAG IV STA (11:45)
[2024-12-28] MEDS: hydrALAZINE HCL 20 MG/ML VIAL IV STA (11:45)
[2024-12-28 11:54] LABS: Troponin I High Sensitivity 6.6 pg/ml (0-14)
--- NOTE | 2024-12-28 13:38 | History & Physical Report ---
Date of Service December 28, 2024 Assessment & Plan (1) UTI (urinary tract infection): (2) Hypertensive urgency: Plan Patient is a 84-year-old female with past medical history of type 2 diabetes mellitus, hypothyroidism, hyperlipidemia, DEMARIO, mild persistent asthma, paroxysmal A-fib, CAD, hypertension, GERD, stage III CKD, degenerative disks disease, subdural hematoma, mood disorder is brought to the hospital for concern of UTI and Elevated blood pressure. Acute UTI Patient presents with increased urinary urgency and burning micturition for last 3 days Urinalysis suggestive of infection Past urine cultures revealed E. coli Started on ceftriaxone; follow-up on final culture and sensitivity. Hypertensive urgency Patient presents with elevated systolic blood pressure. Past reading suggests similar elevation in systolic blood pressure. Was on amlodipine 10 mg in the past which has been not been refilled. Also on sodium chloride tablets. Will start her on amlodipine 10 mg once a day, continue on losartan and hy dralazine. Patient was also on Lasix 20 mg once a day in the past; however currently not on it. May need addition of Lasix if blood pressure continues to be elevated. DC salt tablet given history of diastolic dysfunction/hypertension. Monitor BMP History of atrial fibrillationnanticoagulation discontinued last admission after discussion with cardiology. Continue on metoprolol/aspirin. Found to have possible SDH in July 2024; repeat scan in September showed no changes. History of hypothyroidismcontinue levothyroxine History of type 2 diabetes mellitus; well-controlled; sliding scale insulin Hyperlipidemiacontinue annual Lipitor History of asthma; continue home inhaler/montelukast Full code DVT prophylaxis; SCDs given history of subdural hematoma Called her son; unable to reach. Time spent evaluating patient, direct bedside care, chart review, placing orders, interpretation of diagnostic studies, discussion with consultants, patient, and family members, as well as other required patient management activities is 75 minutes Please note the above document was generated using voice recognition software. It may contain grammatical, syntax or spelling errors. Any formal questions or concerns about the content, text or information contained within the body of this dictation should be directly addressed to the provider for clarification History of Present Illness Chief Complaint: Burning micturition, urinary urgency for 3 days Primary Care Provider: Lilo Mai History obtained from interview with the patient and chart review Past medical history of type 2 diabetes mellitus, hypothyroidism, hyperlipidemia, DEMARIO, mild persistent asthma, paroxysmal A-fib, CAD, hypertension, GERD, stage III CKD, degenerative disks disease, subdural hematoma, mood disorder Patient presented to the hospital with complaints of urinary urgency and burning micturition for last 3 days. She also reports that her home nurse reported high blood pressure and was concerned for her; subsequently EMS was called and patient was sent to the hospital. She denies any headache, dizziness, visual changes, weakness/numbness of any body part, chest pain, shortness of breath or abdominal pain. Chart review reveals that patient was previously prescribed amlodipine which has not been recently refilled. She is also on sodium chloride tablets for unknown reason (possibly hyponatremia). Patient was referred for admission for elevated blood pressure and UTI Allergies Allergy/AdvReac Type Severity Reaction Status Date / Time paroxetine Allergy Severe ANAPHYLAXIS Verified 02/08/24 13:35 mold Allergy Intermediate asthma Verified 02/08/24 13:35 symptoms pollen extracts Allergy Intermediate asthma Verified 02/08/24 13:35 symptoms Penicillins Allergy Mild Unknown Verified 02/08/24 13:35 vasquez AdvReac Intermediate gas and Verified 02/08/24 13:35 bloating with consuption of green or kidneys beans broccoli AdvReac Intermediate GAS Verified 02/08/24 13:35 crab AdvReac Intermediate diarrhea Verified 02/08/24 13:35 grapefruit AdvReac Intermediate BRONCHITIS Verified 02/08/24 13:35 orange AdvReac Intermediate BRONCHITIS Verified 02/08/24 13:35 peanut AdvReac Intermediate gas/bloatin Verified 02/08/24 13:35 g Home Medications Medication Instructions Recorded Confirmed Type atorvastatin 20 mg tablet 20 mg PO HS 08/22/19 12/28/24 History montelukast 10 mg tablet 10 mg PO HS 08/22/19 12/28/24 History bimatoprost 0.01 % eye drops 1 drp OPB HS 05/08/22 12/28/24 History (Sumeet) fluticasone 250 mcg-salmeterol 50 1 inh inhalation BID 10/23/23 12/28/24 History mcg/dose blistr powdr for inhalation (Paul Inhub) oxybutynin chloride 10 mg 10 mg PO QAM 10/23/23 12/28/24 History tablet,extended release 24 hr levothyroxine 100 mcg tablet 100 mcg PO DAILYBB 12/02/23 12/28/24 History losartan 100 mg tablet 100 mg PO DAILY 02/08/24 12/28/24 History metoprolol tartrate 25 mg tablet 25 mg PO BID 02/08/24 12/28/24 History jvopwrpdpnud-uorhtusu-mwpjkz tablet 1 tab PO DAILY 02/08/24 12/28/24 History blood sugar diagnostic (OneTouch 08/04/24 12/28/24 History Verio test strips) cholecalciferol (vitamin D3) 25 25 mcg PO DAILY 08/04/24 12/28/24 History mcg (1,000 unit) capsule (Vitamin D3) coenzyme Q10 100 mg capsule 100 mg PO DAILY 08/04/24 12/28/24 History (CoQ-10) cyanocobalamin (vitamin B-12) 1,000 mcg PO DAILY 08/04/24 12/28/24 History 1,000 mcg tablet (Vitamin B-12) [facility] 12/28/24 History Plus Lancet) magnesium oxide 400 mg (241.3 mg 400 mg PO DAILY 08/04/24 12/28/24 History magnesium) tablet potassium chloride 20 mEq 20 meq PO DAILY 08/04/24 12/28/24 History tablet,extended release(part/cryst) (Klor-Con M) zinc 50 mg tablet 50 mg PO DAILY 08/04/24 12/28/24 History aspirin 81 mg tablet,delayed 81 mg PO QAM #30 tabs 10/16/24 12/28/24 Rx release polyethylene glycol 3350 17 gram 17 g PO DAILY PRN laxative effect 10/16/24 12/28/24 Rx oral powder packet (Miralax) #30 ea hydralazine 25 mg tablet 25 mg PO AMHS 12/28/24 12/28/24 History pantoprazole 40 mg tablet,delayed 40 mg PO DAILY 12/28/24 12/28/24 History release sodium chloride 1,000 mg soluble 1,000 mg PO BID 12/28/24 12/28/24 History tablet Past Med/Surg History Problem List UTI (urinary tract infection) Hypertensive urgency Cervical strain, acute (Acute) Fall (Acute) Head injury (Acute) Drug-induced sinus bradycardia Hiatal hernia with GERD Vasovagal syncope Acute hypoxemic respiratory failure Hypomagnesemia (Acute) Vomiting (Acute) Chest pain (Acute) Syncope (Acute) Hypomagnesemia (Acute) Stroke-like symptoms (Acute) Nausea & vomiting (Acute) Arthralgia Embolic stroke Elevated troponin Near syncope Ambulatory dysfunction (Acute) Chronic pain in left foot (Acute) Hypomagnesemia (Acute) Generalized weakness (Acute) Osteoarthritis of ankle, left HTN (hypertension) Left ankle swelling (Acute) Hypomagnesemia (Acute) Syncope and collapse (Acute) Right rotator cuff tear Right knee DJD Hypokalemia CAD (coronary artery disease) (Chronic) stent in 1999 Anemia (Acute) Postoperative bleeding from mouth (Acute) Orthostatic syncope (Acute) Chronic anticoagulation (Acute) Near syncope DVT prophylaxis Postoperative bleeding from mouth History of rotator cuff surgery (Chronic) History of cataract extraction (Chronic) T2DM (type 2 diabetes mellitus) (Chronic) HTN (hypertension) (Chronic) HLD (hyperlipidemia) (Chronic) PAF (paroxysmal atrial fibrillation) (Chronic) DEMARIO (obstructive sleep apnea) (Chronic) Asthma (Chronic) CKD (chronic kidney disease) stage 3, GFR 30-59 ml/min (Chronic) Primary open angle glaucoma (Chronic) History of arthroscopic knee surgery (Chronic) History of tonsillectomy (Chronic) GERD (gastroesophageal reflux disease) (Chronic) History of appendectomy (Chronic) Hypothyroidism (Chronic) History of placement of stent in LAD coronary artery (Chronic) Sleep apnea (Chronic) Stented coronary artery (Chronic) Family History Father CHF (congestive heart failure) Mother Cancer Social History Smoking Status: Unknown if ever smoked Second Hand Exposure: No; Do You Dip or Chew Tobacco: No; Hx Alcohol Use: No Hx Substance Use: No Preferred Language: Romansh Communication Ability: Effective Bush Hog 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: No Beliefs That Will Affect Care: Restoration marital status: Life Partner Current Living Situation: Significant Other Current Living Situation Comment: s/o Feels Safe at Home: Yes Assistive Devices: Cane and Walker Review of Systems Review of Systems: All systems reviewed & are unremarkable except as noted in Subjective Physical Exam Physical Exam: Constitutional: Awake, alert oriented x 3. Not in any distress. Respiratory: Bilateral vesicular breath sound Cardiovascular: RRR, no murmur, no edema Vessels: no JVD or carotid bruit Chest: normal inspection of chest Abdomen: normal bowel sounds, soft, nontender, no hepatosplenomegaly Musculoskeletal: no cyanosis or clubbing, extremities motor strength 5/5 Skin: no rashes, warm and dry normal turgor Neurologic: PERRL, EOMI, accommodation nl, no face palsy, no dysarthria CN's II- XI intact bilaterally and moves all extremities Results & Data Results & Data Vital Signs (Past 12 Hours) Vital Signs Temp Pulse Pulse Resp BP BP Pulse Ox 12/28/24 13:06 57 L 16 97 12/28/24 12:45 58 L 20 183/70 H 97 12/28/24 12:21 60 16 159/66 H 96 12/28/24 11:48 60 16 195/81 H 95 12/28/24 11:10 12/28/24 10:59 73 12/28/24 10:47 61 18 12/28/24 10:47 36.4 C L 60 18 209/85 H 97 O2 Del Method 12/28/24 13:06 Room Air 12/28/24 12:45 Room Air 12/28/24 12:21 Room Air 12/28/24 11:48 Room Air 12/28/24 11:10 Room Air 12/28/24 10:59 12/28/24 10:47 12/28/24 10:47 Room Air Code Status & VTE Plan VTE Prophylaxis Plan VTE Prophylaxis will be ordered: Yes
[2024-12-28] MEDS: amLODIPine BESYLATE 5 MG TAB PO STA (14:15)
--- NOTE | 2024-12-28 15:02 | Electrocardiogram Report ---
Test Reason : Blood Pressure : */* mmHG Vent. Rate : 57 BPM Atrial Rate : 57 BPM P-R Int : 180 ms QRS Dur : 90 ms QT Int : 436 ms P-R-T Axes : 60 -30 37 degrees QTcB Int : 424 ms Sinus bradycardia Left axis deviation Poor R wave progression, consider anterior CO vs. lead placement vs. LVH Abnormal ECG When compared with ECG of 14-Oct-2024 04:51, No significant change was found Confirmed by Fred East ([id number]) on 12/28/2024 3:02:15 PM Referred By: REFERRED SELF Confirmed By: Fred East
[2024-12-28] MEDS ORDERED: POLYETHYLENE (MIRALAX) 17 GM PACK PO PRN ×2 (15:41)
[2024-12-28] MEDS ORDERED: DEXTROSE 50% 50 ML SYRINGE IV PRN (15:41)
[2024-12-28] MEDS ORDERED: GLUCOSE 40% GEL 15 GM TUBE PO PRN (15:41)
[2024-12-28] MEDS ORDERED: GLUCOSE 10 TAB/TUBE PO PRN (15:41)
[2024-12-28] MEDS ORDERED: GLUCAGON FOR INJ 1 MG VIAL SQ PRN (15:41)
[2024-12-28] MEDS ORDERED: ONDANSETRON INJ 2 MG/ML 2 ML VIAL IV PRN (15:41)
[2024-12-28] MEDS ORDERED: CARBOHYDRATES FOR HYPOGLYCEMIA PO PRN (15:41)
--- OUTSIDE RECORDS SUMMARY | 2024-12-28 15:46 | External Medical Summary | Summary of Care ---
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 Name Role Phone Lilo Ba MD Primary Care Pr ovider Reason for Visit * Reason Comments Acute Encounter Details Date Type Department Care Team (Late st Contact Info) Description 11/13/2024 4:00 PM EST Office Visit Family Medicine [address] [phone] Lilo Ba MD [address] [place] [address] [place] [phone] Acute on chronic heart failure with preserved ejection fraction (HCC)*; Primary insomnia Allergies Active Allergy Reactions Criticality Noted Date Comments Brassica Oleracea 05/17/2020 Other Reaction(s): Gas Crab (Diagnostic) 04/05/2018 Crab Extract 05/17/2020 Other Reaction(s): diarrhea Food (See Comments) 07/24/2015 Broccoli, beans, cauliflower - cause gas Grapefruit, oranges - cause bronchitis - positive skin test Grapefruit Extract 05/17/2020 Other Reaction(s): BRONCHITIS [place] Oil 05/17/2020 Other Reaction(s): BRONCHITIS Paroxetine Hydrochloride 04/03/2009 Penicillins 04/03/2009 Blisters on hands Peanut-Containing Drug Products Abdominal pain Medium 07/24/2015 Gas, bloating Phaseolus 01/10/2024 Other Reaction(s): Bloating, Gas also with green beans documented as of this encounter (statuses as of 11/13/2024) Medications triamcinolone acetonide (ARISTOCORT) 0.1 % creamIndications:I ntrinsic eczema Apply topically to affected area 2 times a day. To affected area. 15 g 5 01/11/20 20 Active Albuterol Sulfate HFA 108 (90 Base) MCG/ACT Inhalation Aerosol Solution Inhale 2 Puffs by mouth every 4 hours as needed for Cough, Shortness of Breath or Wheezing (and with respiratory infections). 18 g 4 04/04/20 21 Active Azelastine HCl 0.1 % Nasal Solution Administer 2 Sprays into each nostril every evening. 90 mL 3 04/04/20 21 Active Lumigan 0.01 % Ophthalmic Solution Instill 1 Drop into both eyes at bedtime. 03/27/20 22 Active Ketoconazole 2 % External Cream APPLY SPARINGLY TO AFFECTED AREA TWICE A DAY 05/18/20 22 Active Fluticasone Propionate 50 MCG/ACT Nasal Suspension (Flonase) Administer 2 Sprays into each nostril every morning. 48 mL 3 01/20/20 23 Active OneTouch Delica Lancets 30GIndications:DM type 2, 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% ([facility]) TEST BLOOD SUGAR ONCE DAILY DIRECTED DX E11.9 100 Each 3 01/03/20 24 Active OneTouch Verio In Vitro Strip (Glucose Blood)Indications: DM type 2, 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% ([facility]) Test blood sugar once daily as directed; dx E11.9 100 Strip 3 01/03/20 24 Active Wixela Inhub 250-50 MCG/ACT Inhalation Aerosol Powder Breath Activated (Fluticasone-Salme terol) INHALE 1 PUFF BY MOUTH IN THE MORNING AND 1 PUFF BEFORE BEDTIME. 180 Each 3 01/17/20 24 Active guaiFENesin ER 600 MG Oral Tablet Extended Release 12 Hour (Mucinex)Indicatio ns:Bronchitis, complicated Take 1 Tablet by mouth 2 times a day as needed for Congestion. Take with plenty of water. Do not cut, crush or chew 40 Tablet 2 04/15/20 24 Active Centrum Silver Oral Tablet Take 1 Tablet by mouth in the morning. 90 Tablet 3 04/21/20 24 Active CoQ-10 100 MG Oral Capsule Take 1 Capsule by mouth in the morning. 90 Capsule 3 04/21/20 24 Active Zinc 50 MG Oral Tablet Take 1 Tablet by mouth in the morning. 90 Tablet 3 04/21/20 24 Active Aspirin 81 MG Oral Tablet Delayed Release (Ecotrin Low Strength) Take 1 Tablet by mouth in the morning. 100 Tablet 3 04/21/20 24 Active Metoprolol Tartrate 25 MG Oral Tablet (Lopressor)Indicat ions:Essential hypertension with goal blood pressure less than 140/90,Atheroscler osis of [place] coronary artery of [place] heart without angina pectoris,Paroxysma l atrial fibrillation (HCC) Take 1 Tablet by mouth in the morning and 1 Tablet before bedtime. 180 Tablet 1 04/21/20 24 Active Montelukast Sodium 10 MG Oral Tablet (Singulair)Indicat ions:Other seasonal allergic rhinitis Take 1 Tablet by mouth at bedtime. 90 Tablet 1 04/21/20 24 Active Atorvastatin Calcium 20 MG Oral Tablet (Lipitor)Indicatio ns:Atherosclerosis of [place] coronary artery of [place] heart without angina pectoris,Paroxysma l atrial fibrillation (HCC),Dyslipidemia , goal LDL below 100 take one pill by mouth at bedtime 90 Tablet 1 04/21/20 24 Active Potassium Chloride Krystal ER 20 MEQ Oral Tablet Extended Release (Klor-Con M20) Take 1 Tablet by mouth in the morning. 90 Tablet 1 04/21/20 24 Active Ramelteon 8 MG Oral Tablet (Rozerem)Indicatio ns:Insomnia, unspecified type Take 1 Tablet by mouth at bedtime. 90 Tablet 1 06/14/20 24 Active Nystatin 171888 UNIT/GM External CreamIndications:D ermatitis Apply topically to affected area 2 times a day. To affacted area for two weeks. 60 g 2 07/12/20 24 Active hydrALAZINE HCl 25 MG Oral Tablet (Apresoline)Indica tions:Benign hypertension with CKD (chronic kidney disease), stage II Take 1 Tablet by mouth in the morning and 1 Tablet before bedtime. 180 Tablet 1 08/10/20 24 Active Levothyroxine Sodium 100 MCG Oral Tablet (Levoxyl)Indicatio ns:Acquired hypothyroidism TAKE 1 TABLET BY MOUTH EVERY DAY IN THE MORNING 90 Tablet 3 09/22/20 24 Active oxyBUTYnin Chloride ER 10 MG Oral Tablet Extended Release 24 Hour (Ditropan XL) Take 1 Tablet by mouth in the morning. 90 Tablet 1 09/28/20 24 Active Sodium Chloride 1 GM Oral Tablet Take 1 Tablet by mouth in the morning and 1 Tablet before bedtime. 180 Tablet 1 09/29/20 24 Active Losartan Potassium 100 MG Oral Tablet (Cozaar)Indication s:Benign hypertension with CKD (chronic kidney disease), stage II,Essential hypertension with goal blood pressure less than 140/90,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) TAKE 1 TABLET BY MOUTH EVERY DAY IN THE MORNING 90 Tablet 1 10/19/20 24 Active Magnesium 400 MG Oral Tablet Take 1 Tablet by mouth in the morning. Active Pantoprazole Sodium 40 MG Oral Tablet Delayed Release (Protonix)Indicati ons:Gastroesophage al reflux disease with esophagitis 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 Take 1 Tablet by mouth in the morning. 30 minutes before the first meal of the day. Do not crush, split or chew the tablet. 90 Tablet 1 10/23/20 24 Active Calcium with D3 250-12.5 MG-MCG Oral Tablet Chewable Take by mouth. Activ e Super B Complex/FA/Vit C Oral Tablet Take by mouth. Act colton Polyethylene Glycol 3350 17 GM Oral Packet (Miralax) TAKE 17 GM MIXED IN FLUIDS ORALLY DAILY NEEDED FOR LAXATIVE EFFECT 10/16/20 24 Active Furosemide 20 MG Oral Tablet (Lasix) Take 1 Tablet by mouth in the morning for 7 days. 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 DDD (degenerative disc disease), cervical 2015 POAG (primary open-angle glaucoma) 03/19/2015 Sleep apnea, obstructive 11/21/2012 Overview (11/21/2012): 11/21/12 -- BIPAP set at 12/10 -- start auto BIPAP DME - [facility] Primary hypertension 10/17/2009 Overview (10/17/2009): Modified per HTN protocol #16. 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 Adjustment disorder with depressed mood documented as of this encounter (statuses as of 11/13/2024) Resolved Problems Problem Noted Date Diagnosed Date Resolved Date Benign hypertension with CKD (chronic kidney disease) stage III 10/23/2024 11/13/2024 Type 2 diabetes mellitus wit h stage 3 chronic kidney disease, without long-term current use of insulin 05/22/2019 04/01/2021 CKD (chronic kidney disease), stage III 03/08/2018 12/16/2018 Overview: Per CKD protocol #1 BMI 39.0-39.9,adult 08/30/2017 09/12/20 18 Overview (10/20/2017): 208 lbs Presbyphonia 08/27/2017 07/18/2018 Hypothyroidism 10/12/2016 10/12/2016 Postmenopausal atrophic vaginitis 07/27/2016 10/12/2016 Family history of breast cancer in mother 05/13/2016 07/18/2018 Postmenopausal atrophic vaginitis 05/13/2016 07/24/2019 Overview (05/13/2016): Noted on scanned records. Blepharitis 03/19/2015 07/18/2018 Pseudophakia 03/19/2015 07/18/2018 Atrial fibrillation 01/17/2013 01/14/20 17 Subjective tinnitus 09/23/2012 07/18/20 18 Asthma, moderate persistent 09/23/2012 09/23/2012 Genetic Sleep Disorder [facility] Other*[id number] 09/12/2012 06/25/2016 ADVANCE DIRECTIVE INFORMATION 06/11/2011 10/02/2024 Overview (06/11/2011): No, Advance Directive brochure given to patient. - mailed 06/11/2011 Obesity, Class II, BMI 35-39 .9, isolated (see actual BMI) 05/12/2010 05/22/2013 Overview (05/12/2010): Per Obesity Protocol, #19 Allergic rhinitis 11/04/2017 HTN, goal to be determined 1 12/17/2008 Overview (10/17/2009): Modified per HTN protocol #16. Menopause 12/04/2013 BMI 37.0-37.9, adult 017 Overview (12/11/2016): 204 lbs Cataract, nuclear sclerotic, both eyes 07/24/2019 Benign hypertension with CKD (chronic kidney disease) stage III 04/01/2021 documented as of this encounter (statuses as of 11/13/2024) Immunizations Name Administration Dates Next Due COVID-19 [...] Seasonal Influenza, Quadriva lent Hd (Fluzone Hd) 10/29/2023,09/17/2022,10/17/2021 Seasonal Influenza, Quadriva lent, No Preserve, IM 10/12/2016 TDAP (age 10 and older)(Boostrix) 09/19/2017 TDAP, Age 7 and older, IM (Adacel) 03/23/2023, documented as of this encounter Social History Tobacco Use Types Packs/Day Years Used Date Smoking Tobacco: Never Passive Smoke Exposure: Past Smokeless Tobacco: Never Tobacco Cessation:Counseling Given: Not Answered Alcohol Use Standard Drinks/Week Comments Yes 0 (1 standard drink = 0.6 oz pur e alcohol) once a month PHQ-2 Answer Date Recorded PHQ Adult Total Score 0 10/18/2024 Hunger Vital Sign Answer Date Recorded Within the past 12 months, y ou worried that your food would run out before you got the money to buy more. Never true 10/18/20 24 Within the past 12 months, t he food you bought just didn't last and you didn't have money to get more. Never true 10/18/2024 Childcare Answer Date Recorded Do you feel overwhelmed with taking care of a child, family member or friend? No 10/18/2024 Does your family need help f inding childcare? (Household - for ages 0-17 years) Not on file 10/18/2024 Clothing Answer Date Recorded Have you been unable to get clothing when it was really needed? No 10/18/2024 Is your family able to get c lothes or diapers when needed? (Household - for ages 0-17 years) Not on file 10/18/2024 Personal Safety Answer Date Recorded Do you feel unsafe or have concerns for your saf ety? No 10/18/2024 Do you have concerns for you r family's safety? (Household - for ages 0-17 years) Not on file 10/18/2024 Utilities Answer Date Recorded Do you have trouble paying y our heating, water, or electric bill? No 10/18/2024 Is your family able to pay t he heat, water, or electric bill? (Household - for ages 0-17 years) Not on file 10/18/2024 Does your family have access to good internet? (Household - for ages 0-17 years) Not on file 10/18/2024 Employment Status Answer Date Recorded Are you unemployed or without regular income? No 10/18/2024 Does the household have a re gular source of income? (Household - for ages 0-17 years) Not on file 10/18/2024 Social Connections Answer Date Recorded How often do you feel lonely or isolated from th ose around you? Never 10/18/2024 Financial Resource Strain Answer Date R ecorded Do you have any trouble payi ng for your medications, or do you think you might in the future? No 10/18/2024 Does your family have troubl e paying for medicine? (Household - for ages 0-17 years) Not on file 10/18/2024 Transportation Needs Answer Date Record ed Do you have trouble getting a ride to medical visits or work? (Adult - for ages 18 years and over) Not on file 10/18/2024 Does your family have a hard time getting a ride to doctors visits? (Household - for ages 0-17 years) Not on file 10/18/2024 Has lack of transportation k ept you from medical appointments, meetings, work, or from getting things needed for daily living? Check all that apply. No 10/18/2024 Do you (or your family) have trouble finding or paying for a ride (transportation)? (Household - for ages 0-17 years) Not on file 10/18/2024 Housing Stability Answer Date Recorded Do you currently live in a s helter or have no steady place to sleep at night? No 10/18/2024 Do you think you are at risk of becoming homeless? (Adult - for ages 18 years and over) Not on file 10/18/2024 Does your family worry about paying for your home or becoming homeless? (Household - for ages 0-17 years) Not on file 1 12/18/2023 Are you homeless or worried that you might be in the future? No 10/18/2024 Are you (or your family) ava eless or worried that you might be in the future? (Household - for ages 0-17 years) Not on file Food Insecurity Answer Date Recorded Do you need food for this week? No 10/18/2024 Are you able to get enough f ood for your family? (Household - for ages 0-17 years) Not on file 10/18/2024 Does your family need food t his week? (Household - for ages 0-17 years) Not on file 10/18/2024 Do you always have enough fo od for your family? (Household - for ages 0-17 years) Not on file 10/18/2024 Comments No Sex and Gender Information Value Date Recorded Sex Assigned at Not on file Legal Sex Female 6:26 AM EST Gender Identity Not on file Sexual Orientation Not on file documented as of this encounter Last Filed Vital Signs Vital Sign Reading Time Taken Comments Blood Pressure 132/60 11/13/2024 3:46 PM EST Pulse 72 11/13/2024 3:46 PM EST Temperature 36.2 C (97.1 F) 11/13/2024 3:46 PM ES T Respiratory Rate - - Oxygen Saturation 90% 11/13/2024 3:46 PM EST Inhaled Oxygen Concentration - - Weight 62.7 kg (138 lb 4.8 oz) 11/13/2024 3:46 P M EST Height 152.4 cm (5') 11/13/2024 3:46 PM EST Body Mass Index 27.01 11/13/2024 3:46 PM EST documented in this encounter Progress Notes * Lilo Ba MD - 11/13/2024 3:52 PM EST Images from the original note were not included. History of Present Illness Yudelka Palacios is a 84 year old female that presents for Acute Having difficulty breathing at night for the last week. Can't lay flat. Better if she lays on her side or sits up. Has been sleeping in her recliner, but can't fall asleep well on it. No swelling perpatient, keeps her legs elevated. Was on lasix in the past. Does have difficulty getting to the bathroom in time at night too. Uses a depends and poise pad at night. Hx of heart failure with preserved ejection fraction. Med list shows that she's on rozerem for sleep. She isn't sure if she takes. No falls since the one prior to the hospitalization. Uses the walker at home. Physical Exam BP 132/60 | Pulse 72 | Temp 97.1 F (36.2 C) (Tympanic) | Ht 5' (1.524 m) | Wt 138 lb 4.8 oz (62.7 kg) | SpO2 90% | BMI 27.01 kg/m | BSA 1.63 m Physical Exam Vitals and nursing note reviewed. Constitutional: Appearance: Normal appearance. HENT: Head: Normocephalic and atraumatic. Nose: Nose normal. Mouth/Throat: Mouth: Mucous membranes are moist. Eyes: Extraocular Movements: Extraocular movements intact. Cardiovascular: Rate and Rhythm: Normal rate and regular rhythm. Pulmonary: Effort: Pulmonary effort is normal. Breath sounds: Normal breath sounds. Abdominal: General: Abdomen is flat. Palpations: Abdomen is soft. Musculoskeletal: Cervical back: Normal range of motion and neck supple. Right lower leg: Edema (1+) present. Left lower leg: Edema (1+) present. Skin: General: Skin is warm and dry. Neurological: General: No focal deficit present. Mental Status: She is alert and oriented to person, place, and time. Psychiatric: Mood and Affect: Mood normal. Behavior: Behavior normal. Cr 0.7 Assessment and Plan Acute on chronic heart failure with preserved ejection fraction (HCC) Acute difficulty breathing when laying. Does have some swelling in her legs. Will start lasix x 7 days (recent Cr normal). Should help. If not improving, to let us know. Primary insomnia Is on Rozerem per her med list, she will check if she's been taking it. Discussed the risks of additional sedation including falls, respiratory suppression. Suspect sleep will improve if her breathing improves too. Consider melatonin if needed Wrap-Up Follow Up: Return for as scheduled in Dec. | For: as scheduled in Dec documented in this encounter Nursing Notes * Liat Duran CMA - 11/13/2024 3:54 PM EST Pt reports [facility] nurse advised pt to be seen as she has trouble breathing at night when she lays flat on her back at night, okay if she lays on her side or if she sleeps reclined in a chair, reports also has trouble falling asleep. documented in this encounter Plan of Treatment Upcoming Encounters Date Type Department Care Team (Late st Contact Info) Description 11/30/2024 12:30 PM EST Office Visit Neurology [facility] [address] [facility] [place] [address] Lashaun Moore PA-C [address] [facility] [place] [address] 01/23/2025 1:20 PM EST Office Visit [address] [place] [phone] Lilo Ba MD [address] [place] [address] [place] [phone] 03/12/2025 2:00 PM EDT Office Visit Family Medicine [address] [place] [phone] Lilo Ba MD [address] [place] [address] [place] [phone] 05/18/2025 3:30 PM EDT Office Visit Cardiology, [facility] [address] [place] [address] Francheska Ponce PA-C [address] [place] [address] 12/04/2025 3:30 PM EST Office Visit Cardiology, [facility] [address] [place] [address] Chace Peacock DO [address] [place] [address] Health Maintenance Due Date Last Done Comments Zoster Vaccines (1 of 2) 1989 Adult Wellness Visit 07/24/2016 07/24/2015 Diabetic Foot Exam 04/28/2024 04/28/2023, 0 03/12/2022, 04/01/2021, Additional history exists Diabetic Eye Exam 09/03/2024 09/03/2023, , 09/03/2023, Additional history exists Albumin/Creatinine Ratio 11/17/2024 023, 11/17/2022, 11/13/2021, Additional history exists HbA1c 03/12/2025 09/11/2024, 10/30, 04/28/2023, Additional history exists TSH 09/11/2025 09/11/2024, 11/29, 04/28/2023, Additional history exists Depression Screening 10/18/2025 10/18/2024 CKD HGB USE SMARTSET 46163 10/27/202510/27, 10/27/2024, 09/11/2024, Additional history exists CKD PHOS USE SMARTSET [id number] 10/27/202509/30, 09/16/2020, 08/29/2019 DXA Scan 05/31/2026 05/31/2019, 07/15/2012 DTap/Tdap Vaccines (5 - Td or Tdap) 03/23/2033 03/23/2023, 09/19/2017, 03/22/2017, Additional history exists Pneumococcal Vaccine: 65+ Years Completed 04/23/2015, 11/29/2005 [...] as of this encounter Visit Diagnoses Diagnosis Acute on chronic heart failure with preserved ejection fraction (HCC)- Primary Primary insomnia Persistent disorder of initiating or maintaining sleep documented in this encounter Care Teams Body And Fender Mechanic Relationship Specialty Start Date End Date Lilo Ba MD [address] [place] [address] [place] [phone] PCP - General Family Medicine 10/23/24 documented as of this encounter"
--- OUTSIDE RECORDS SUMMARY | 2024-12-28 15:46 | External Medical Summary | Summary of Care ---
Author Name Unknown Organization [facility] Address [address] [place] [address] Phone [phone] Care Team Providers Care Order Caller Name Role Phone Lilo Ba MD Primary Care Pr ovider Reason for Visit * Reason Onset Date Comments Advice 11/13/2024 Encounter Details Date Type Department Care Team (Late st Contact Info) Description 11/13/2024 Telephone Family Medicine [address] [phone] Lilo Ba MD [address] [place] [address] [place] [phone] Advice Allergies Active Allergy Reactions Criticality Noted Date Comments Brassica Oleracea 05/17/2020 Other Reaction(s): Gas Crab (Diagnostic) 04/05/2018 Crab Extract 05/17/2020 Other Reaction(s): diarrhea Food (See Comments) 07/24/2015 Broccoli, beans, cauliflower - cause gas Grapefruit, oranges - cause bronchitis - positive skin test Grapefruit Extract 05/17/2020 Other Reaction(s): BRONCHITIS [place] Oil 05/17/2020 Other Reaction(s): BRONCHITIS Paroxetine Hydrochloride [...] 2, 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% ([facility]) TEST BLOOD SUGAR ONCE DAILY DIRECTED DX E11.9 100 Each 01/03/20 24 Active OneTouch Verio In Vitro Strip (Glucose Blood)Indications: DM type 2, 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% ([facility]) Test blood sugar once daily as directed; dx E11.9 100 Strip 3 01/03/20 24 Active Wixela Inhub 250-50 MCG/ACT Inhalation Aerosol Powder Breath Activated (Fluticasone-Salme terol) INHALE 1 PUFF BY MOUTH IN THE MORNING AND 1 PUFF BEFORE BEDTIME. 180 Each 01/17/20 24 Active guaiFENesin ER 600 MG Oral Tablet Extended Release 12 Hour (Mucinex)Indicatio ns:Bronchitis, complicated Take 1 Tablet by mouth 2 times a day as needed for Congestion. Take with plenty of water. Do not cut, crush or chew 40 Tablet 2 04/15/20 24 Active Centrum Silver Oral Tablet Take 1 Tablet by mouth in the morning. 90 Tablet 04/21/20 24 Active CoQ-10 100 MG Oral [...] blood pressure less than 140/90,Atheroscler osis of [place] coronary artery of [place] heart without angina pectoris,Paroxysma l atrial fibrillation (HCC) Take 1 Tablet by mouth in the morning and 1 Tablet before bedtime. 180 Tablet 1 04/21/20 24 Active Montelukast Sodium 10 MG Oral Tablet (Singulair)Indicat ions:Other seasonal allergic rhinitis Take 1 Tablet by mouth at bedtime. 90 Tablet 1 04/21/20 24 Active Atorvastatin Calcium 20 MG Oral Tablet (Lipitor)Indicatio ns:Atherosclerosis of [place] coronary artery of [place] heart without angina pectoris,Paroxysma l atrial fibrillation [...] 90 Tablet 1 06/14/20 24 Active Nystatin 178063 UNIT/GM External CreamIndications:D ermatitis Apply topically to [...] Oral Tablet Take by mouth. Act colton documented as of this encounter (statuses as of 11/13/2024) Active Problems Problem Noted Date Diagnosed Date SDH (subdural hematoma) 10/25/2024 BMI 31.0-31.9,adult 11/17/2023 [...] < 7.5% 05/07/2018 Overview (06/02/2018): [id number] 7.3 Mild persistent asthma without complication [...] 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 Coronary artery disease invo lving [place] coronary artery of [place] heart without angina pectoris Adjustment disorder with [...] persistent 09/23/2012 09/23/2012 Genetic Sleep Disorder Resea [facility] Other*[id number] 09/12/2012 06/25/2016 ADVANCE DIRECTIVE INFORMATION 06/11/2011 10/02/2024 [...] 10/18/2024 Does the household have a re lar source of income? (Household - for ages [...] encounter Miscellaneous Notes * Telephone Encounter - Amy Bhandari LPN - 11/13/2024 12:49 PM EST Patient aware and verbalized understanding, will comply Appt scheduled. * Telephone Encounter - Lilo Ba MD - 11/13/2024 11:01 AM EST Does have a history of heart failure. Is also already on an insomnia medication (rozerem). If she feels anything is worse than usual, would recommend an appointment to assess. * Telephone Encounter - Supriya Jenkins RN - 11/13/2024 10:41 AM EST Hello. Patient states that she has been having trouble sleeping. Patient states that when she lays flat she is having trouble breathing and can't sleep. So then she gets up and goes to the living room to sleep in the recliner. When she sleeps upright in her recliner she can breath better. But still has trouble falling asleep. Patient denies any leg swelling. She does have a cough. She sometimes brings up clear phlegm with it. Any recommendations? Thank you. documented in this encounter Plan of Treatment Upcoming Encounters Date Type Department Care Team (Late st Contact Info) Description 11/13/2024 4:00 PM EST Office Visit Family Medicine [address] [place] [phone] Lilo Ba MD [address] [place] [address] [place] [phone] 11/30/2024 12:30 PM EST Office Visit Neu[facility] [address] Lashaun Moore PA-C [address] [facility] [place] [address] 01/23/2025 1:20 PM EST Office Visit Family [address] [place] [phone] Lilo Ba MD [address] [place] [address] [place] [phone] 03/12/2025 2:00 PM EDT Office Visit Family [address] [place] [phone] Lilo Ba MD [address] [place] [address] [place] [phone] 05/18/2025 3:30 PM EDT Office Visit Cardiology, [facility] [address] [facility] [place] [address] Francheska Bai PA-C [address] [place] [address] 12/04/2025 3:30 PM EST Office Visit Cardiology, [facility] [address] [place] [address] Chace Peacock, [address] [place] [address] Health Maintenance Due Date Last Done Comments [...] Additional history exists Depression Screening 10/18/2025 10/18/2024 DXA Scan 05/31/2026 05/31/2019, 07/15/2012 DTap/Tdap Vaccines [...] filedocumented as of this encounter Care Teams Order Caller Relationship Specialty Start Date End Date Lilo Ba MD [address] [place] [address] [place] [phone] PCP - General Family Medicine 10/23/24 documented as of this encounter
--- OUTSIDE RECORDS SUMMARY | 2024-12-28 15:46 | External Medical Summary | Summary of Care ---
Author Name Unknown Organization [facility] Address [address] [place] [facility] [place] [address] Phone [phone] Care Team Providers Care Kitchen Worker Name Role Phone Lilo Ba MD Primary Care Pr ovider Reason for Visit * Reason Onset Date Comments Fax 08/24/2024 Encounter Details Date Type Department Care Team (Late st Contact Info) Description 08/24/2024 Telephone Family Medicine [address] [phone] Rolanda Villalpando PA-C [address] [place] [address] [place] [phone] Fax Allergies Active Allergy Reactions Criticality Noted Date Comments Brassica Oleracea 05/17/2020 Other Reaction(s): Gas Crab (Diagnostic) 04/05/2018 Crab Extract 05/17/2020 Other Reaction(s): diarrhea Food (See Comments) 07/24/2015 Broccoli, beans, cauliflower - cause gas Grapefruit, oranges - cause bronchitis - positive skin test Grapefruit Extract 05/17/2020 Other Reaction(s): BRONCHITIS [place] Oil 05/17/2020 Other Reaction(s): BRONCHITIS Paroxetine Hydrochloride 04/03/2009 Penicillins 04/03/2009 Blisters on hands Peanut-Containing Drug Products Abdominal pain Medium 07/24/2015 Gas, bloating Phaseolus 01/10/2024 Other Reaction(s): Bloating, Gas also with green beans documented as of this encounter (statuses as of 11/23/2024) Medications triamcinolone acetonide (ARISTOCORT) 0.1 % creamIndications: Intrinsic eczema Apply topically to affected area 2 times a day. To affected area. 15 g 5 Active Albuterol Sulfate HFA 108 (90 Base) MCG/ACT Inhalation Aerosol Solution Inhale 2 Puffs by mouth every 4 hours as needed for Cough, Shortness of Breath or Wheezing (and with respiratory infections). 18 g 4 Active Azelastine HCl 0.1 % Nasal Solution Administer 2 Sprays into each nostril every evening. 90 mL 3 Active Lumigan 0.01 % Ophthalmic Solution Instill 1 Drop into both eyes at bedtime. Active Ketoconazole 2 % External Cream APPLY SPARINGLY TO AFFECTED AREA TWICE A DAY Active Fluticasone Propionate 50 MCG/ACT Nasal Suspension (Flonase) Administer 2 Sprays into each nostril every morning. 48 mL 3 023 Active OneTouch Delica Lancets 30GIndications:DM type 2, 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% ([facility]) TEST BLOOD SUGAR ONCE DAILY DIRECTED DX E11.9 100 Each Active OneTouch Verio In Vitro Strip (Glucose Blood)Indications :DM type 2, 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% ([facility]) Test blood sugar once daily as directed; dx E11.9 100 Strip Active Wixela Inhub 250-50 MCG/ACT Inhalation Aerosol Powder Breath Activated (Fluticasone-Salm eterol) INHALE 1 PUFF BY MOUTH IN THE MORNING AND 1 PUFF BEFORE BEDTIME. 180 Each 3 Active guaiFENesin ER 600 MG Oral Tablet Extended Release 12 Hour (Mucinex)Indicati ons:Bronchitis, complicated Take 1 Tablet by mouth 2 times a day as needed for Congestion. Take with plenty of water. Do not cut, crush or chew 40 Tablet 2 Active Centrum Silver Oral Tablet Take 1 Tablet by mouth in the morning. 90 Tablet 3 Active CoQ-10 100 MG Oral Capsule Take 1 Capsule by mouth in the morning. 90 Capsule 3 024 Active Zinc 50 MG Oral Tablet Take 1 Tablet by mouth in the morning. 90 Tablet 3 024 Active Aspirin 81 MG Oral Tablet Delayed Release (Ecotrin Low Strength) Take 1 Tablet by mouth in the morning. 100 Tablet 3 024 Active Metoprolol Tartrate 25 MG Oral Tablet (Lopressor)Indica tions:Essential hypertension with goal blood pressure less than 140/90,Atheroscle rosis of [place] coronary artery of [place] heart without angina pectoris,Paroxysm al atrial fibrillation (HCC) Take 1 Tablet by mouth in the morning and 1 Tablet before bedtime. 180 Tablet 1 024 Active Montelukast Sodium 10 MG Oral Tablet (Singulair)Indica tions:Other seasonal allergic rhinitis Take 1 Tablet by mouth at bedtime. 90 Tablet 1 024 Active Atorvastatin Calcium 20 MG Oral Tablet (Lipitor)Indicati ons:Atheroscleros is of [place] coronary artery of [place] heart without angina pectoris,Paroxysm al atrial fibrillation (HCC),Dyslipidemi a, goal LDL below 100 take one pill by mouth at bedtime 90 Tablet 1 024 Active Potassium Chloride Krystal ER 20 MEQ Oral Tablet Extended Release (Klor-Con M20) Take 1 Tablet by mouth in the morning. 90 Tablet 1 024 Active Ramelteon 8 MG Oral Tablet (Rozerem)Indicati ons:Insomnia, unspecified type Take 1 Tablet by mouth at bedtime. 90 Tablet 1 024 Active Nystatin 182105 UNIT/GM External CreamIndications: Dermatitis Apply topically to affected area 2 times a day. To affacted area for two weeks. 60 g 2 024 Active hydrALAZINE HCl 25 MG Oral Tablet (Apresoline)Indic ations:Benign hypertension with CKD (chronic kidney disease), stage II Take 1 Tablet by mouth in the morning and 1 Tablet before bedtime. 180 Tablet 1 024 Active Vitamin D-3 25 MCG (1000 UT) Oral Capsule Take 1 Capsule by mouth in the morning. 90 Capsule 3 024 2023 Discontinued oxyBUTYnin Chloride ER 10 MG Oral Tablet Extended Release 24 Hour (Ditropan XL) Take 1 Tablet by mouth in the morning. 90 Tablet 1 024 2023 Discontinued(R efill) Sodium Chloride 1 GM Oral Tablet Take 1 Tablet by mouth in the morning and 1 Tablet before bedtime. 180 Tablet 1 024 2023 Discontinued(R efill) Vitamin B-12 1000 MCG Oral Tablet (Cyanocobalamin) Take 1 Tablet by mouth in the morning. 90 Tablet 3 024 2023 Discontinued Vitamin C 500 MG Oral Tablet (Ascorbic Acid) Take 1 Tablet by mouth in the morning. 90 Tablet 3 024 2023 Discontinued Levothyroxine Sodium 100 MCG Oral Tablet (Levoxyl)Indicati ons:Acquired hypothyroidism TAKE 1 TABLET BY MOUTH DAILY AT LEAST 30 MINUTES PRIOR TO BREAKFAST OR OTHER MEDICATION 90 Tablet 1 024 2023 Discontinued Losartan Potassium 100 MG Oral Tablet (Cozaar)Indicatio ns:Benign hypertension with CKD (chronic kidney disease), stage II,Essential hypertension with goal blood pressure less than 140/90,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) Take 1 Tablet by mouth in the morning. 90 Tablet 1 2023 Discontinued Magnesium Oxide -Mg Supplement 400 (240 Mg) MG Oral Tablet (Mag-Ox) Take 1 Tablet by mouth in the morning. 90 Tablet 1 024 2023 Discontinued(R efill) metFORMIN HCl 850 MG Oral Tablet (Glucophage)Indic ations:Type 2 diabetes mellitus with hemoglobin A1c goal of less than 7.0% ([facility]) TAKE 1 TABLET BY MOUTH TWICE A DAY WITH BREAKFAST AND DINNER 180 Tablet 1 024 2023 Discontinued(P atient preference/dis continuation) Dexlansoprazole 60 MG Oral Capsule Delayed Release (Dexilant)Indicat ions:Gastroesopha geal reflux disease with esophagitis 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 Take 1 Capsule by mouth in the morning. 90 Capsule 1 024 2023 Discontinued Eliquis 5 MG Oral Tablet (Apixaban)Indicat ions:Paroxysmal atrial fibrillation (HCC) TAKE 1 TABLET BY MOUTH TWICE A DAY 180 Tablet 3 024 2023 Discontinued amLODIPine Besylate 10 MG Oral Tablet (Norvasc)Indicati ons:Benign hypertension with CKD (chronic kidney disease), stage II One daily 90 Tablet 1 024 2023 Discontinued documented as of this encounter (statuses as of 11/23/2024) Active Problems Problem Noted Date Diagnosed Date [...] set at 12/10 -- start auto BIPAP [facility] Primary hypertension 10/17/2009 Overview (10/17/2009): Modified per HTN protocol #16. Acquired hypothyroidism Gastroesophageal reflux dise ase with esophagitis 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 Coronary artery disease invo lving [place] coronary artery of [place] heart without angina pectoris Adjustment disorder with depressed mood documented as of this encounter (statuses as of 11/23/2024) Resolved Problems Problem Noted Date Diagnosed Date [...] 09/23/2012 Genetic Sleep Disorder Resea [facility] Other*[id number] 09/12/2012 06/25/2016 ADVANCE DIRECTIVE INFORMATION 06/11/2011 10/02/2024 [...] as of this encounter (statuses as of 11/23/2024) Immunizations Name Administration Dates Next Due COVID-19 mRNA, LNP-s, No Pre serve, 2-Dose Series (Moderna) 03/15/2021,02/16/2021 COVID-19, MRNA-LNP, PF, 30 M CG/0.3 mL, 12 YRS AND ABOVE, IM (Evo.com-Comirnat) 11/17/2023 COVID-19, mRNA, LNP-s, PF, B ooster, 100mcg/0.5mg (Moderna) 12/02/2021 Diptheria/Tetanus (Adult) 03/22/2017 Pneumococcal Conjugate Vacc, 13 Valent (Prevnar) 04/23/2015 Pneumococcal Polysaccharide PPV23 (Pneumovax) 11/29/2005 Season Influenza, Quad, PF, Adjuvanted, 65+ Yrs, IM (FLUAD) 08/13/2020 Seasonal Influenza Vac., MDV , IM, 0.5 mL (Fluzone) 09/12/2015,08/14/2014,11/14/2013,10/06,09/01/2011,08/28/2010 Seasonal Influenza, PF, 6 M & above, [...] encounter Miscellaneous Notes * Telephone Encounter - Antonia Harris OSA - 08/29/2024 8:58 AM EDT Dara Nobles called to get confirmation if the plan of care fax was received. Fax wassent 08/17 and 08/24. Please advise. * Telephone Encounter - Eleni Benites OSA - 08/24/2024 11:31 AM EDT Received a call asking if fax was received by office. Name/Company sending fax: Dara Nobles [facility] What fax is pertaining to: Plan of Care Date(s) they sent request: 08/17/24 & again 08/24/24 Verified fax number they are sending to is correct (Y or N): Y Callback Number for the clinic to call to verified if fax was received: [phone] documented in this encounter Plan of Treatment Upcoming Encounters Date Type Department Care Team (Late st Contact Info) Description 11/30/2024 12:30 PM EST Office Visit [facility] [address] Lashaun Moore PA-C [address] [facility] [place] [address] 01/23/2025 1:20 PM EST Office Visit Family Medicine [address] [place] [phone] Lilo Ba MD [address] [place] [address] [place] [phone] 03/12/2025 2:00 PM EDT Office Visit Family [address] [place] [phone] Lilo Ba MD [address] [place] [address] [place] [phone] 05/18/2025 3:30 PM EDT Office Visit Cardiology, [facility] [address] [place] [address] Francheska Ponce PA-C [address] [place] [address] 12/04/2025 3:30 PM EST Office Visit Cardiology, [facility] [address] [place] [address] Chace Peacock, [address] [place] [address] Health Maintenance Due Date Last Done Comments [...] Screening 10/18/2025 10/18/2024 CKD HGB USE SMARTSET 99318 10/27/202510/27, 10/27/2024, 09/11/2024, Additional history exists CKD PHOS USE SMARTSET 51788 10/27/2025 1107/2024, 09/16/2020, 08/29/2019 DXA Scan 05/31/2026 05/31/2019, 07/15/2012 DTap/Tdap Vaccines (5 - Td or Tdap) 03/23/2033 03/23/2023, 09/19/2017, 03/22/2017, Additional history exists Pneumococcal Vaccine: 50+ Years Completed 04/23/2015, 11/29/2005 COVID-19 Vaccine Completed [...] filedocumented as of this encounter Care Teams Kitchen Worker Relationship Specialty Start Date End Date Lilo Ba MD [address] [place] [address] [place] [phone] PCP - General Family Medicine 10/23/24 documented as of this encounter
--- OUTSIDE RECORDS SUMMARY | 2024-12-28 15:46 | External Medical Summary | Summary of Care ---
Author Name Unknown Organization [facility] Address [address] [place] [address] Phone [phone] Care Team Providers Care Forest Fire Equipment Operator Name Role Phone Lilo Ba MD Primary Care Pr ovider Encounter Details Date Type Department Care Team (Late st Contact Info) Description 12/18/2024 Population Health External Data Unspecified Department Allergies Active Allergy Reactions Criticality Noted Date Comments Brassica Oleracea 05/17/2020 Other Reaction(s): Gas Crab (Diagnostic) 04/05/2018 Crab Extract 05/17/2020 Other Reaction(s): diarrhea Food (See Comments) 07/24/2015 Broccoli, beans, cauliflower - cause gas Grapefruit, oranges - cause bronchitis - positive skin test Grapefruit Extract 05/17/2020 Other Reaction(s): BRONCHITIS [place] Oil 05/17/2020 Other Reaction(s): BRONCHITIS Paroxetine Hydrochloride 04/03/2009 Penicillins 04/03/2009 Blisters on hands Peanut-Containing Drug Products Abdominal pain Medium 07/24/2015 Gas, bloating Phaseolus 01/10/2024 Other Reaction(s): Bloating, Gas also with green beans documented as of this encounter (statuses as of 12/18/2024) Medications triamcinolone acetonide (ARISTOCORT) 0.1 % creamIndications:I [...] 30GIndications:DM type 2, 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% ([facility]) TEST BLOOD SUGAR ONCE DAILY DIRECTED DX E11.9 100 Each 3 01/03/20 24 Active OneTouch Verio In Vitro Strip (Glucose Blood)Indications: DM type 2, 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% ([facility]) Test blood sugar once daily [...] morning. 100 Tablet 3 04/21/20 24 Active Montelukast Sodium 10 MG Oral Tablet (Singulair)Indicat ions:Other seasonal allergic rhinitis Take 1 Tablet by mouth at bedtime. 90 Tablet 1 04/21/20 24 Active Atorvastatin Calcium 20 MG Oral Tablet (Lipitor)Indicatio ns:Atherosclerosis of [place] coronary artery of [place] heart without angina pectoris,Paroxysma l atrial fibrillation [...] 90 Tablet 1 06/14/20 24 Active Nystatin 947115 UNIT/GM External CreamIndications:D ermatitis Apply topically to [...] chew the tablet. 90 Tablet 1 10/23/20 Active Calcium with D3 250-12.5 MG-MCG Oral Tablet Chewable Take by mouth. Activ e Super B Complex/FA/Vit C Oral Tablet Take by mouth. Act colton Polyethylene Glycol 3350 17 GM Oral Packet (Miralax) TAKE 17 GM MIXED IN FLUIDS ORALLY DAILY NEEDED FOR LAXATIVE EFFECT 10/16/20 Active Metoprolol Tartrate 25 MG Oral Tablet (Lopressor)Indicat ions:Essential hypertension with goal blood pressure less than 140/90,Atheroscler osis of [place] coronary artery of [place] heart without angina pectoris,Paroxysma l atrial fibrillation (HCC) Take 1 Tablet by mouth in the morning and 1 Tablet before bedtime. 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 (Household - for ages [...] Care Team (Late st Contact Info) Description 01/23/2025 1:20 PM EST Office Visit Family Medicine [address] [phone] Lilo Ba MD [address] [place] [address] [place] [phone] 02/06/2025 12:30 PM EDT Office Visit [facility] [address] Lashaun Moore PA-C 21 [place] [address] 03/12/2025 2:00 PM EDT Office Visit Family Medicine [address] [phone] Lilo Ba MD [address] [place] [address] [place] [phone] 05/18/2025 3:30 PM EDT Office Visit Cardiology, [facility] [address] [place] [address] Francheska Ponce PA-C [address] [place] [address] 12/04/2025 3:30 PM EST Office Visit Cardiology, [facility] [address] [place] [address] Chace Peacock, [address] [place] [address] Health Maintenance Due Date Last Done Comments [...] Screening 10/18/2025 10/18/2024 CKD HGB USE SMARTSET 14368 10/27/202510/27, 10/27/2024, 09/11/2024, Additional history exists CKD PHOS USE SMARTSET 22793 10/27/202509/30, 09/16/2020, 08/29/2019 DXA Scan 05/31/2026 05/31/2019, [...] filedocumented as of this encounter Care Teams Forest Fire Equipment Operator Relationship Specialty Start Date End Date Lilo Ba MD [address] [place] [address] [place] [phone] PCP - General Family Medicine 10/23/24 documented as of this encounter
--- OUTSIDE RECORDS SUMMARY | 2024-12-28 15:47 | External Medical Summary | Summary of Care ---
Author Name Unknown Organization [facility] Address [address] [place] [address] Phone [phone] Care Team Providers Care Plant Buyer Name Role Phone Lilo Ba MD Primary Care Pr ovider Reason for Visit * Reason Onset Date Comments Medication Question 10/27/2024 Encounter Details Date Type Department Care Team (Late st Contact Info) Description 10/27/2024 Telephone Family Medicine [address] [phone] Lilo Ba MD [address] [place] [address] [place] [phone] Medication Question Allergies Active Allergy Reactions Criticality Noted Date Comments Brassica Oleracea 05/17/2020 Other Reaction(s): Gas Crab (Diagnostic) 04/05/2018 Crab Extract 05/17/2020 Other Reaction(s): diarrhea Food (See Comments) 07/24/2015 Broccoli, beans, cauliflower - cause gas Grapefruit, oranges - cause bronchitis - positive skin test Grapefruit Extract 05/17/2020 Other Reaction(s): BRONCHITIS [place] Oil 05/17/2020 Other Reaction(s): BRONCHITIS Paroxetine Hydrochloride 04/03/2009 Penicillins 04/03/2009 Blisters on hands Peanut-Containing Drug Products Abdominal pain Medium 07/24/2015 Gas, bloating Phaseolus 01/10/2024 Other Reaction(s): Bloating, Gas also with green beans documented as of this encounter (statuses as of 11/01/2024) Medications triamcinolone acetonide (ARISTOCORT) 0.1 % creamIndications:I [...] type 2, 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% ([facility]) TEST BLOOD SUGAR ONCE DAILY DIRECTED DX E11.9 100 Each 01/03/20 24 Active OneTouch Verio In Vitro Strip (Glucose Blood)Indications: DM type 2, 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% ([facility]) Test blood sugar once daily as directed; dx E11.9 100 Strip 01/03/20 24 Active Wixela Inhub 250-50 MCG/ACT [...] blood pressure less than 140/90,Atheroscler osis of [place] coronary artery of [place] heart without angina pectoris,Paroxysma l atrial fibrillation (HCC) Take 1 Tablet by mouth in the morning and 1 Tablet before bedtime. 180 Tablet 1 04/21/20 24 Active Montelukast Sodium 10 MG Oral Tablet (Singulair)Indicat ions:Other seasonal allergic rhinitis Take 1 Tablet by mouth at bedtime. 90 Tablet 1 04/21/20 24 Active Atorvastatin Calcium 20 MG Oral Tablet (Lipitor)Indicatio ns:Atherosclerosis of [place] coronary artery of [place] heart without angina pectoris,Paroxysma l atrial fibrillation [...] 90 Tablet 1 06/14/20 24 Active Nystatin [id number] UNIT/GM External CreamIndications:D ermatitis Apply topically to [...] Oral Tablet Take by mouth. Act col[place] metFORMIN HCl 850 MG Oral Tablet (Glucophage)Indica tions:Type 2 diabetes mellitus with hemoglobin A1c goal of less than 7.0% ([facility]) TAKE 1 TABLET BY MOUTH TWICE A DAY WITH BREAKFAST AND DINNER 180 Tablet 1 04/21/20 24 024 Discontin ued(Patie nt preferenc e/discont inuation) Venlafaxine HCl 37.5 MG Oral Tablet (Effexor) Take 1 Tablet by mouth in the morning. 024 Discontin ued(Medic ation List Clean Up) documented as of this encounter (statuses as of 11/01/2024) Active Problems Problem Noted Date Diagnosed Date SDH (subdural hematoma) 10/25/2024 Benign hypertension with CKD (chronic kidney disease) stage III 10/23/2024 BMI 31.0-31.9,adult 11/17/2023 Overview (11/17/2023): [address] [...] 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 Coronary artery disease invo lving [place] coronary artery of [place] heart without angina pectoris Adjustment disorder with depressed mood documented as of this encounter (statuses as of 11/01/2024) Resolved Problems Problem Noted Date Diagnosed Date [...] 09/23/2012 09/23/2012 Genetic Sleep Disorder Resea [facility] Other*[id number] 09/12/2012 06/25/2016 ADVANCE DIRECTIVE INFORMATION 06/11/2011 10/02/2024 [...] as of this encounter (statuses as of 11/01/2024) Immunizations Name Administration Dates Next Due COVID-19 [...] encounter Miscellaneous Notes * Addendum Note - Tutu Juarez RN - 11/01/2024 4:34 PM ESTAddended by: TUTU JUAREZ on: 11/01/2024 04:34 PM Modules accepted: Orders * Telephone Encounter - Lilo Ba MD - 10/27/2024 1:29 PM EST Ok to continue off the metformin based on last A1C. Removed from med list. * Telephone Encounter - Marisa Merrill LPN - 10/27/2024 1:04 PM EST Mary Grace RN from [facility] is calling. Reprots that the pt has a bottle of Metformin that has written "do not take" on it and it's not on her med list but it is listed on her after visit summary's from her last 2 OV's. Made Mary Grace aware per 10/17/24 Luda reported that [place] wanted pt to hold Meformin for one week due to blood sugar being low and A1C being 5.4. Mary Grace reports that the pt had labs done today. Mayr Grace did removed Metformin from pt's pill strategic planner to prevent hypoglycemia. Pt does not check her blood sugar. Also reports that the pt does not take Effexor and hasn't for years. Med removed from med list. Please advise if pt should resume or D/C Metformin. documented in this encounter Plan of Treatment Upcoming Encounters Date Type Department Care Team (Late st Contact Info) Description 11/30/2024 12:30 PM EST [address] [address] Lashaun Moore PA-C [address] [facility] [place] [phone] 01/23/2025 1:20 PM EST Office Visit Family [address] [place] [phone] Lilo Ba MD [address] [place] [address] [place] [phone] 03/12/2025 2:00 PM EDT Office Visit Family [address] [place] [phone] Lilo Ba MD [address] [place] [address] [place] [phone] 03/26/2025 4:00 PM EDT Office Visit Cardiology, [facility] [address] [place] [address] [place], [address] [place] [address] Health Maintenance Due Date Last Done Comments [...] Screening 10/18/2025 10/18/2024 CKD HGB USE SMARTSET 18392 10/27/202510/27, 10/27/2024, 09/11/2024, Additional history exists CKD PHOS USE SMARTSET 58386 10/27/202509/30, 09/16/2020, 08/29/2019 DXA Scan 05/31/2026 05/31/2019, [...] filedocumented as of this encounter Care Teams Plant Buyer Relationship Specialty Start Date End Date Lilo Ba MD [address] [place] [address] [place] [phone] PCP - General Family Medicine 10/23/24 documented as of this encounter
--- OUTSIDE RECORDS SUMMARY | 2024-12-28 15:47 | External Medical Summary ---
Author Name Unknown Address Unknown Organization K01:[facility] [place] [address] [facility] [place] [address] Laboratory Report Ordering Provider Test Date Status FLEX [place] 10/27/2024 09:57:45 Final Observation Date Value Abnormality Reference (Units ) Status SYNC LEUKOCYTES IN BLOOD BY AUTOMATED COUNT 10/27/2024 09:57:45 8.32 4.00-10.80 (K/uL) Final Segs 10/27/2024 09:57:45 74.7 40.0-75.0 (%) Final Lymphs % 10/27/2024 09:57:45 14.2 Below low normal 18.0-42.0 (%) Final Monos 10/27/2024 09:57:45 8.5 1.0-11.0 (%) Final Eosinophils 10/27/2024 09:57:45 1.9 0.0-6.0 (%) Final Basos 10/27/2024 09:57:45 0.5 0.0-2.0 (%) Final Immature Granulocyte, Percent 10/27/2024 09:57:45 0.2 0.0-2.0 (%) Final Absolute Segs 10/27/2024 09:57:45 6.21 1.80-7.70 (K/uL) Final Lymphs, absolute 10/27/2024 09:57:45 1.18 1.00-4.80 (K/ul) Final Monos, Abs 10/27/2024 09:57:45 0.71 0.00-1.10 (K/uL) Final Eos, Abs 10/27/2024 09:57:45 0.16 0.00-0.70 (K/uL) Final Basos, Abs 10/27/2024 09:57:45 0.04 0.00-0.20 (K/uL) Final Immature Granulocytes, Number 10/27/2024 09:57:45 0.02 0.00-0.20 (K/uL) Final Performing Location [facility] [place] [place] [facility] [place] [address]
--- OUTSIDE RECORDS SUMMARY | 2024-12-28 15:47 | External Medical Summary | Summary of Care ---
Author Name Unknown Organization [facility] Address [address] [facility] [place] [address] Phone [phone] Care Team Providers Care Site Promotion Agent Name Role Phone Lilo Ba MD Primary Care Pr ovider Reason for Visit * Reason Comments Follow Up Encounter Details Date Type Department Care Team (Late st Contact Info) Description 10/25/2024 11:30 AM EST Office Visit Cardiology, [facility] [address] [place] [address] Francheska Ponce PA-C [address] [place] [address] Coronary artery disease involving algaaciq coronary artery of algaaciq heart without angina pectoris*; Paroxysmal atrial fibrillation (HCC); Benign hypertension with CKD (chronic kidney disease), stage II; Essential hypertension with goal blood pressure less than 140/90; Dyslipidemia, goal LDL below 70; SDH (subdural hematoma) (HCC) Allergies Active Allergy Reactions Criticality Noted Date Comments Brassica Oleracea 05/17/2020 Other Reaction(s): Gas Crab (Diagnostic) 04/05/2018 Crab Extract 05/17/2020 Other Reaction(s): diarrhea Food (See Comments) 07/24/2015 Broccoli, beans, cauliflower - cause gas Grapefruit, oranges - cause bronchitis - positive skin test Grapefruit Extract 05/17/2020 Other Reaction(s): BRONCHITIS Sharon Oil 05/17/2020 Other Reaction(s): BRONCHITIS Paroxetine Hydrochloride 04/03/2009 Penicillins 04/03/2009 Blisters on hands Peanut-Containing Drug Products Abdominal pain Medium 07/24/2015 Gas, bloating Phaseolus 01/10/2024 Other Reaction(s): Bloating, Gas also with green beans documented as of this encounter (statuses as of 10/25/2024) Medications triamcinolone acetonide (ARISTOCORT) 0.1 % creamIndications: Intrinsic eczema Apply topically to affected area 2 times a day. To affected area. 15 g 5 020 Active Albuterol Sulfate HFA 108 (90 Base) MCG/ACT Inhalation Aerosol Solution Inhale 2 Puffs by mouth every 4 hours as needed for Cough, Shortness of Breath or Wheezing (and with respiratory infections). 18 g 4 021 Active Azelastine HCl 0.1 % Nasal Solution Administer 2 Sprays into each nostril every evening. 90 mL 3 021 Active Lumigan 0.01 % Ophthalmic Solution Instill 1 Drop into both eyes at bedtime. 022 Active Ketoconazole 2 % External Cream APPLY SPARINGLY TO AFFECTED AREA TWICE A DAY 022 Active Fluticasone Propionate 50 MCG/ACT Nasal Suspension (Flonase) Administer 2 Sprays into each nostril every morning. 48 mL 3 023 Active OneTouch Delica Lancets 30GIndications:DM type 2, 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% ([facility]) TEST BLOOD SUGAR ONCE DAILY DIRECTED DX E11.9 100 Each 3 024 Active OneTouch Verio In Vitro Strip (Glucose Blood)Indications :DM type 2, 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% ([facility]) Test blood sugar once daily as directed; dx E11.9 100 Strip 3 024 Active Wixela Inhub 250-50 MCG/ACT Inhalation Aerosol Powder Breath Activated (Fluticasone-Salm eterol) INHALE 1 PUFF BY MOUTH IN THE MORNING AND 1 PUFF BEFORE BEDTIME. 180 Each 3 024 Active guaiFENesin ER 600 MG Oral Tablet Extended Release 12 Hour (Mucinex)Indicati ons:Bronchitis, complicated Take 1 Tablet by mouth 2 times a day as needed for Congestion. Take with plenty of water. Do not cut, crush or chew 40 Tablet 2 024 Active Centrum Silver Oral Tablet Take 1 Tablet by mouth in the morning. 90 Tablet 3 024 Active CoQ-10 100 MG Oral Capsule Take 1 Capsule by mouth in the morning. 90 Capsule 3 024 Active Zinc 50 MG Oral Tablet Take 1 Tablet by mouth in the morning. 90 Tablet 3 024 Active Aspirin 81 MG Oral Tablet Delayed Release (Ecotrin Low Strength) Take 1 Tablet by mouth in the morning. 100 Tablet 3 024 Active metFORMIN HCl 850 MG Oral Tablet (Glucophage)Indic ations:Type 2 diabetes mellitus with hemoglobin A1c goal of less than 7.0% (HCC) TAKE 1 TABLET BY MOUTH TWICE A DAY WITH BREAKFAST AND DINNER 180 Tablet 1 Active Additional Information Patient not taking.Reported on 10/25/2024 Metoprolol Tartrate 25 MG Oral Tablet (Lopressor)Indica tions:Essential hypertension with goal blood pressure less than 140/90,Atheroscle rosis of algaaciq coronary artery of algaaciq heart without angina pectoris,Paroxysm al atrial fibrillation (HCC) Take 1 Tablet by mouth in the morning and 1 Tablet before bedtime. 180 Tablet 1 024 Active Montelukast Sodium 10 MG Oral Tablet (Singulair)Indica tions:Other seasonal allergic rhinitis Take 1 Tablet by mouth at bedtime. 90 Tablet 1 024 Active Atorvastatin Calcium 20 MG Oral Tablet (Lipitor)Indicati ons:Atheroscleros is of algaaciq coronary artery of algaaciq heart without angina pectoris,Paroxysm al atrial fibrillation [...] bedtime. 90 Tablet 1 024 Active Nystatin 895960 UNIT/GM External CreamIndications: Dermatitis Apply topically to affected area 2 times a day. To affacted area for two weeks. 60 g 2 024 Active hydrALAZINE HCl 25 MG Oral Tablet (Apresoline)Indic ations:Benign hypertension with CKD (chronic kidney disease), stage II Take 1 Tablet by mouth in the morning and 1 Tablet before bedtime. 180 Tablet 1 024 Active Levothyroxine Sodium 100 MCG Oral Tablet (Levoxyl)Indicati ons:Acquired hypothyroidism TAKE 1 TABLET BY MOUTH EVERY DAY IN THE MORNING 90 Tablet 3 024 Active oxyBUTYnin Chloride ER 10 MG Oral Tablet Extended Release 24 Hour (Ditropan XL) Take 1 Tablet by mouth in the morning. 90 Tablet 1 024 Active Sodium Chloride 1 GM Oral Tablet Take 1 Tablet by mouth in the morning and 1 Tablet before bedtime. 180 Tablet 1 024 Active Losartan Potassium 100 MG Oral Tablet (Cozaar)Indicatio ns:Benign hypertension with CKD (chronic kidney disease), stage II,Essential hypertension with goal blood pressure less than 140/90,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) TAKE 1 TABLET BY MOUTH EVERY DAY IN THE MORNING 90 Tablet 1 024 Active Venlafaxine HCl 37.5 MG Oral Tablet (Effexor) Take 1 Tablet by mouth in the morning. Active Magnesium 400 MG Oral Tablet Take 1 Tablet by mouth in the morning. Active Pantoprazole Sodium 40 MG Oral Tablet Delayed Release (Protonix)Indicat ions:Gastroesopha geal reflux disease with esophagitis 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 Take 1 Tablet by mouth in the morning. 30 minutes before the first meal of the day. Do not crush, split or chew the tablet. 90 Tablet 1 024 Active Calcium with D3 250-12.5 MG-MCG Oral Tablet Chewable Take by mouth. Activ e Super B Complex/FA/Vit C Oral Tablet Take by mouth. Act colton Vitamin D-3 25 MCG (1000 UT) Oral Capsule Take 1 Capsule by mouth in the morning. 90 Capsule 3 024 2023 Discontinued Vitamin B-12 1000 MCG Oral Tablet (Cyanocobalamin) Take 1 Tablet by mouth in the morning. 90 Tablet 3 024 2023 Discontinued Vitamin C 500 MG Oral Tablet (Ascorbic Acid) Take 1 Tablet by mouth in the morning. 90 Tablet 3 024 2023 Discontinued amLODIPine Besylate 10 MG Oral Tablet (Norvasc)Indicati ons:Benign hypertension with CKD (chronic kidney disease), stage II One daily 90 Tablet 1 024 2023 Discontinued documented as of this encounter (statuses as of 10/25/2024) Active Problems Problem Noted Date Diagnosed Date [...] set at 12/10 -- start auto BIPAP [facility] Primary hypertension 10/17/2009 Overview (10/17/2009): Modified per HTN protocol #16. Acquired hypothyroidism Gastroesophageal reflux dise ase with esophagitis 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 Coronary artery disease invo lving algaaciq coronary artery of algaaciq heart without angina pectoris Adjustment disorder with depressed mood documented as of this encounter (statuses as of 10/25/2024) Resolved Problems Problem Noted Date Diagnosed Date [...] moderate persistent 09/23/2012 09/23/2012 Genetic Sleep Disorder [facility] Other*[id number] 09/12/2012 06/25/2016 ADVANCE DIRECTIVE INFORMATION 06/11/2011 10/02/2024 [...] as of this encounter (statuses as of 10/25/2024) Immunizations Name Administration Dates Next Due COVID-19 mRNA, LNP-s, No Pre serve, 2-Dose Series (Moderna) 03/15/2021,02/16/2021 COVID-19, MRNA-LNP, PF, 30 M CG/0.3 mL, 12 YRS AND ABOVE, [facility] 09/11/2024,11/17/2023 COVID-19, mRNA, LNP-s, PF, B ooster, [...] Sign Reading Time Taken Comments Blood Pressure 114/68 10/25/2024 11:38 AM EST Pulse 66 10/25/2024 11:38 AM EST Temperature - - Respiratory Rate - - Oxygen Saturation 95% 10/25/2024 11:38 AM EST Inhaled Oxygen Concentration - - Weight 64.9 kg (143 lb) 10/25/2024 11:38 AM EST Height - - Body Mass Index 27.93 10/23/2024 10:48 AM EST documented in this encounter Progress Notes * Francheska Ponce PA-C - 10/25/2024 11:40 AM EST Images from the original note were not included. 10/25/2024 Cardiology Follow Up CHIEF COMPLAINT: History of cerebrovascular disease, stroke, coronary heart disease, paroxysmal atrial fibrillation, dyslipidemia; Falls and subdural hematoma Yudelka Palacios is a 84 year old female here today for routine cardiology f/u. Last clinic evaluation approx [address] Peacock History: Paroxysmal atrial fibrillation (12/2011). No documented recurrence. Stable chronic coronary heart disease without angina, remote PCI stent in approximately 1999 [address] [place]. Dyslipidemia Diastolic dysfunction DEMARIO Findings of embolic infarcts on prior MRI in Nov 2023 - Eliquis started Fall resulting in small (acute vs chronic) subdural hematoma on CT scan 09/2024 - Eliquis discontinued History of Present Illness The patient, with a history of paroxysmal atrial fibrillation, coronary artery disease with remote PCI, dyslipidemia, and heart failure with preserved ejection fraction, recently experienced a fall out of bed. The fall resulted in a head injury, with the patient describing hitting her head twice and developing a "goose egg." The following day, a nurse recommended a CT scan due to concerns of a potential brain bleed. The CT scan revealed a spot, which was suspected to be a bleed, and the patientwas kept in the hospital for monitoring. The spot remained stable, if not over the course of a few days. Eliquis was discontinued likely indefinitely. The patient reported experiencing discomfort and pain behind her eyes and along the side of her head following the fall. She is now having intermittent vision changes and blurred vision at times. Shehas f/u with neurology next week. The patient's anticoagulant medication, Eliquis, was discontinued due to thel brain bleed, and she continues to take baby aspirin. Otherwise patient denies acute cardiac complaints or issues. No chest pain, shortness of breath, palpitations, dizziness, syncope or near syncope. No orthopnea, PND, or increased lower extremity edema. No fever, chills, cough, hematochezia, melena, or hemoptysis. Review of Systems: See HPI for pertinent positives. All others negative, other than those noted in HPI. Patient Active Problem List Diagnosis Acquired hypothyroidism Gastroesophageal reflux disease with esophagitis 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 Atherosclerosis of algaaciq coronary artery of algaaciq heart without angina pectoris Primary hypertension Sleep apnea, obstructive POAG (primary open-angle glaucoma) Adjustment disorder with depressed mood DDD (degenerative disc disease), cervical CURTIS (stress urinary incontinence, female) Paroxysmal atrial fibrillation ([facility]) Dyslipidemia, goal LDL below 100 Mild persistent asthma without complication Rhinitis, nonallergic DM type 2, 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% ([facility]) BMI 31.0-31.9,adult Type 2 diabetes mellitus with other diabetic ophthalmic complication ([facility]) Benign hypertension with CKD (chronic kidney disease), stage II Central stenosis of spinal canal Benign hypertension with CKD (chronic kidney disease) stage III ([facility]) Social History Tobacco Use Smoking status: Never Passive exposure: Past Smokeless tobacco: Never Substance Use Topics Alcohol use: Yes Comment: once a month Drug use: No Review of patient's allergies indicates: Allergen Reactions Peanut-Containing Drug Products Abdominal pain Gas, bloating Brassica Oleracea Other Reaction(s): Gas Crab (Diagnostic) Crab Extract Other Reaction(s): diarrhea Food (See Comments) Broccoli, beans, cauliflower - cause gas Grapefruit, oranges - cause bronchitis - positive skin test Grapefruit Extract Other Reaction(s): BRONCHITIS Sharon Oil Other Reaction(s): BRONCHITIS Paxil [Paroxetine Hydrochloride] Pcn [Penicillins] Blisters on hands Phaseolus Other Reaction(s): Bloating, Gas also with green beans Current Outpatient Medications Medication Sig Dispense Refill triamcinolone acetonide (ARISTOCORT) 0.1 % cream Apply [...] mouth in the morning. 90 Tablet 3 CoQ-10 100 MG Oral Capsule Take 1 Capsule by mouth in the morning. 90 Capsule 3 Zinc 50 MG Oral Tablet Take 1 Tablet by mouth in the morning. 90 Tablet 3 Aspirin 81 MG Oral Tablet Delayed Release (Ecotrin Low Strength) Take 1 Tablet by mouth in the morning. 100 Tablet 3 Metoprolol Tartrate 25 MG Oral Tablet (Lopressor) [...] mouth in the morning. 90 Tablet 1 Ramelteon 8 MG Oral Tablet (Rozerem) Take 1 Tablet by mouth at bedtime. 90 Tablet 1 Nystatin 250450 UNIT/GM External Cream Apply topically to affected area 2 times a day. To affacted area for two weeks. 60 g 2 hydrALAZINE HCl 25 MG Oral Tablet (Apresoline) Take 1 Tablet by mouth in the morning and 1 Tablet before bedtime. 180 Tablet 1 Levothyroxine Sodium 100 MCG Oral Tablet (Levoxyl) TAKE 1 TABLET BY MOUTH EVERY DAY IN THE MORNING 90 Tablet 3 oxyBUTYnin Chloride ER 10 MG Oral Tablet Extended Release 24 Hour (Ditropan XL) Take 1 Tablet by mouth in the morning. 90 Tablet 1 Sodium Chloride 1 GM Oral Tablet Take 1 Tablet by mouth in the morning and 1 Tablet before bedtime.180 Tablet 1 Losartan Potassium 100 MG Oral Tablet (Cozaar) TAKE 1 TABLET BY MOUTH EVERY DAY IN THE MORNING 90 Tablet 1 Venlafaxine HCl 37.5 MG Oral Tablet (Effexor) Take 1 Tablet by mouth in the morning. Magnesium 400 MG Oral Tablet Take 1 Tablet by mouth in the morning. Pantoprazole Sodium 40 MG Oral Tablet Delayed Release (Protonix) Take 1 Tablet by mouth in the morning. 30 minutes before the first meal of the day. Do not crush, split or chew the tablet. 90 Tablet 1 Calcium with D3 250-12.5 MG-MCG Oral Tablet Chewable Take by mouth. Super B Complex/FA/Vit C Oral Tablet Take by mouth. Albuterol Sulfate HFA 108 (90 Base) MCG/ACT Inhalation Aerosol Solution Inhale 2 Puffs by mouth every 4 hours as needed for Cough, Shortness of Breath or Wheezing (and with respiratory infections). 18 g 4 metFORMIN HCl 850 MG Oral Tablet (Glucophage) TAKE 1 TABLET BY MOUTH TWICE A DAY WITH BREAKFAST ANDDINNER (Patient not taking: Reported on 10/25/2024) 180 Tablet 1 No current facility-administered medications for this visit. OBJECTIVE/PHYSICAL EXAMINATION: BP 114/68 | Pulse 66 | Wt 64.9 kg (143 lb) | SpO2 95% | BMI 27.93 kg/m | BSA 1.66 m General: no acute distress and stated [...] exam Psych: appropriate affect and insight. Data: Echo in January 2024 at [facility] reviewed: Assessment & Plan Subdural Hematoma Recent fall resulting in head trauma with subsequent subdural hematoma noted on CT scan. Initial CTscan showed a bleed that was monitored over a few days, with no significant change. Discomfort and pain reported behind the eyes and along the side of the head. Eliquis was discontinued. Risks outweighs benefit. She does report intermittent blurred vision at times. F/U with neurology next week. - Continue to withhold Eliquis, likely indefinitely given recent events, advanced age, risk of falls. - Continue baby aspirin -Watchman discussed during hospitalization, however given no recent episodes of afib (possibly >10 years), risks of procedure likely outweigh benefit as well. - Keep neurology appointment for follow-up Paroxysmal Atrial Fibrillation Paroxysmal atrial fibrillation with an episode in 2011 without documented recurrence. Currently asymptomatic. Discussed the importance of monitoring for symptoms and the risks of recurrence. - Monitor for symptoms of atrial fibrillation -continue metoprolol Coronary Artery Disease Coronary artery disease with remote PCI in approximately 1999. No current chest pain or related symptoms. Discussed the importance of continuing current medications and monitoring for new symptoms. - Continue current medications - Monitor for any new symptoms such as chest pain or shortness of breath Heart Failure with Preserved Ejection Fraction Heart failure with preserved ejection fraction. No current symptoms such as swelling in ankles or shortness of breath. Discussed the importance of continuing current medications and monitoring for symptoms. - Continue current medications - Monitor for symptoms of heart failure Dyslipidemia -continue statin General Health Maintenance General health maintenance discussed including the importance of keeping follow- up appointments. - Keep follow-up appointment with Dr. Peacock in February The patient is to continue all current medications as listed above. No changes were made at today'svisit. Patient is being evaluated in the cardiology office for ongoing care/risk management for HTN; dyslipidemia; CAD; PAF. I spent a total of 35 minutes on the date of service in preparation, delivery, and documentation ofthe care provided to Yudelka Palacios excluding any time spent in the performance of separately billed services. The patient agrees to the above plan and will call with additional questions or concerns. ER with all emergencies advised. Check-out note: Keep f/u as scheduled with Dr. Ayush Ponce PA-C Department of Cardiology Text in this note was generated using an ambient documentation service. I discussed the use of a device to record and summarize our discussion today. All persons present during the encounter consented to its use. This chart was completed in part utilizing [employer] Speech Voice Recognition Software. Grammatical errors, random [...] documented in this encounter Nursing Notes * Laurie Bliss CMA - 10/25/2024 11:36 AM EST Examination Room: 1 Name: Yudelka Palacios Date of : (1940) Reason for Visit: 6m Interim Hospitalization(s): [facility]- Fall Problems/Concerns: denied Chest Pain/SOB: denied My [facility] is a way you can talk to your provider online through e-mail. Would you like to sign up? I can activate it for you? Declined Patient was instructed to not get up on the exam table until directed and assisted by their provider; patient is to remain seated in the chair/ wheelchair/ exam table for fall prevention and safety reasons. Patient is aware to have assistance to step down off exam table with personnel. Patient voiced full comprehension of instructions. documented in this encounter Plan of Treatment Upcoming Encounters Date Type Department Care Team (Late st Contact Info) Description 10/30/2024 10:00 AM EST Office Visit Neurology [facility] [place] [address] [place] [address] Emelia Robles PA-C [address] [facility] [place] [address] 01/23/2025 1:20 PM EST Office Visit [address] [place] [phone] Lilo Ba MD [address] [place] [address] [place] [phone] 03/12/2025 2:00 PM EDT Office Visit [address] [place] [phone] Lilo Ba MD [address] [place] [address] [place] [phone] 03/26/2025 4:00 PM EDT Office Visit Cardiology, [facility] [address] [place] [address] Chace Peacock, [address] [place] [address] Health Maintenance Due Date Last Done Comments Zoster Vaccines (1 of 2) 1989 Adult Wellness Visit 07/24/2016 07/24/2015 CKD PHOS USE SMARTSET 45742 09/16/2021 09/16/2020, 1 Diabetic Foot Exam 04/28/2024 04/28/2023, 0 03/12/2022, 04/01/2021, Additional history exists Diabetic Eye Exam 09/03/2024 09/03/2023, , 09/03/2023, Additional history exists Albumin/Creatinine Ratio 11/17/2024 023, 11/17/2022, 11/13/2021, Additional history exists HbA1c 03/12/2025 09/11/2024, 10/30, 04/28/2023, Additional history exists CKD HGB USE SMARTSET 01604 09/11/202509/11, 09/11/2024, 02/23/2024, Additional history exists TSH 09/11/2025 09/11/2024, 11/29, [...] as of this encounter Visit Diagnoses Diagnosis Coronary artery disease involving algaaciq coronary artery of algaaciq heart without angina pectoris- Primary Paroxysmal atrial fibrillation (HCC) Atrial fibrillation Benign hypertension with CKD (chronic kidney disease), stage II Benign hypertensive kidney disease with chronic kidney disease stage I through stage IV, or unspecified Essential hypertension with goal blood pressure less than 140/90 Dyslipidemia, goal LDL below 70 Other and unspecified hyperlipidemia SDH (subdural hematoma) (HCC) Subdural hemorrhage documented in this encounter Care Teams Site Promotion Agent Relationship Specialty Start Date End Date Lilo Ba MD [address] [place] [address] [place] [phone] PCP - General Family Medicine 10/23/24 documented as of this encounter
--- OUTSIDE RECORDS SUMMARY | 2024-12-28 15:47 | External Medical Summary ---
Author Name Unknown Address Unknown Organization K01:[facility] - [address] [facility] [address] Laboratory Report Ordering Provider Test Date Status FLEX [place] 10/27/2024 09:57:45 Final Observation Date Value Abnormality Reference (Units ) Status BUN 10/27/2024 09:57:45 14 6-20 (mg/dL) Final Creatinine 10/27/2024 09:57:45 0.7 0.5-1.0 (mg/dL) Final Glomerular filtration rate/1.73 sq M.predicted [Volume Rate/Area] in Serum, Plasma or Blood by Creatinine-based formula (CKD-EPI) 10/27/2024 09:57:45 86 >=60 (mL/min) Final eGFR is calculated based on the CKD-EPI 2020 equation. Sodium 10/27/2024 09:57:45 143 135-146 (m mol/L) Final Potassium 10/27/2024 09:57:45 4.0 3.5-5.1 (m mol/L) Final Cl 10/27/2024 09:57:45 105 98-107 (mm ol/L) Final CO2 10/27/2024 09:57:45 26 22-32 (mmo l/L) Final Anion gap 10/27/2024 09:57:45 12 7-15 (mmol /L) Final Glucose 10/27/2024 09:57:45 123 Above high normal 70 -120 (mg/dL) Final Albumin 10/27/2024 09:57:45 4.0 3.8-5.0 (g /dL) Final AST (Aspartate aminotransferase) 10/27/2024 09:57:45 17 10-35 (U/L) Fin al Alk Phos 10/27/2024 09:57:45 67 35-130 (U/ L) Final Bilirubin, Total 10/27/2024 09:57:45 0.4 <=1 .2 (mg/dL) Final Calcium 10/27/2024 09:57:45 9.9 8.4-10.2 ( mg/dL) Final Protein 10/27/2024 09:57:45 6.2 6.0-8.3 (g /dL) Final ALT (Alanine aminotransferase) 10/27/2024 09:57:45 21 10-35 (U/L) Victor Hugo taveras Performing Location [facility] - [address] [facility] [address]
--- OUTSIDE RECORDS SUMMARY | 2024-12-28 15:47 | External Medical Summary | Summary of Care ---
Author Name Unknown Organization [facility] Address [address] [place] [address] Phone [phone] Care Team Providers Care Business Process Associate Name Role Phone Lilo Ba MD Primary Care Pr ovider Reason for Visit * Reason Onset Date Comments Appointment 10/24/2024 Encounter Details Date Type Department Care Team ([facility] st Contact Info) Description 10/24/2024 Telephone [facility] [address] [place] [address] Services, Scheduling [address] [place] [address] Appointment Allergies Active Allergy Reactions Criticality Noted Date Comments Brassica Oleracea 05/17/2020 Other Reaction(s): Gas Crab (Diagnostic) 04/05/2018 Crab Extract 05/17/2020 Other Reaction(s): diarrhea Food (See Comments) 07/24/2015 Broccoli, beans, cauliflower - cause gas Grapefruit, oranges - cause bronchitis - positive skin test Grapefruit Extract 05/17/2020 Other Reaction(s): BRONCHITIS [place] Oil 05/17/2020 Other Reaction(s): BRONCHITIS Paroxetine Hydrochloride 04/03/2009 Penicillins 04/03/2009 Blisters on hands Peanut-Containing Drug Products Abdominal pain Medium 07/24/2015 Gas, bloating Phaseolus 01/10/2024 Other Reaction(s): Bloating, Gas also with green beans documented as of this encounter (statuses as of 10/31/2024) Medications triamcinolone acetonide (ARISTOCORT) 0.1 % creamIndications: [...] every morning. 48 mL 3 023 Active MetatomixTouch Delica Lancets 30GIndications:DM type 2, 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% ([facility]) TEST BLOOD SUGAR ONCE DAILY DIRECTED DX E11.9 100 Each 3 Active OneTouch Verio In Vitro Strip (Glucose Blood)Indications :DM type 2, 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% ([facility]) Test blood sugar once daily as directed; dx E11.9 100 Strip 3 Active Wixela Inhub 250-50 MCG/ACT Inhalation Aerosol [...] by mouth in the morning. 90 Capsule 024 Active Zinc 50 MG Oral Tablet Take 1 Tablet by mouth in the morning. 90 Tablet 3 024 Active Aspirin 81 MG Oral Tablet Delayed Release (Ecotrin Low Strength) Take 1 Tablet by mouth in the morning. 100 Tablet 3 024 Active Metoprolol Tartrate 25 MG Oral Tablet (Lopressor)Indica tions:Essential hypertension with goal blood pressure less than 140/90,Atheroscle rosis of [place] coronary artery of [place] heart without angina pectoris,Paroxysm al atrial fibrillation (HCC) Take 1 Tablet by mouth in the morning and 1 Tablet before bedtime. 180 Tablet 1 024 Active Montelukast Sodium 10 MG Oral Tablet (Singulair)Indica tions:Other seasonal allergic rhinitis Take 1 Tablet by mouth at bedtime. 90 Tablet 1 024 Active Atorvastatin Calcium 20 MG Oral Tablet (Lipitor)Indicati ons:Atheroscleros is of [place] coronary artery of [place] heart without angina pectoris,Paroxysm al atrial fibrillation [...] bedtime. 90 Tablet 1 024 Active Nystatin 713900 UNIT/GM External CreamIndications: Dermatitis Apply topically to [...] 1 Tablet before bedtime. 180 Tablet 1 Active Losartan Potassium 100 MG Oral Tablet (Cozaar)Indicatio ns:Benign hypertension with CKD (chronic kidney disease), stage II,Essential hypertension with goal blood pressure less than 140/90,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) TAKE 1 TABLET BY MOUTH EVERY DAY IN THE MORNING 90 Tablet 1 Active Magnesium 400 MG Oral Tablet Take 1 Tablet by mouth in the morning. Active Pantoprazole Sodium 40 MG Oral Tablet Delayed Release (Protonix)Indicat ions:Gastroesopha geal reflux disease with esophagitis 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 Take 1 Tablet by mouth in the morning. 30 minutes before the first meal of the day. Do not crush, split or chew the tablet. 90 Tablet 1 Active Vitamin D-3 25 MCG (1000 UT) [...] morning. 90 Tablet 3 024 2023 Discontinued metFORMIN HCl 850 MG Oral Tablet (Glucophage)Indic ations:Type 2 diabetes mellitus with hemoglobin A1c goal of less than 7.0% ([facility]) TAKE 1 TABLET BY MOUTH TWICE A DAY WITH BREAKFAST AND DINNER 180 Tablet 1 024 2023 Discontinued amLODIPine Besylate 10 MG Oral Tablet (Norvasc)Indicati ons:Benign hypertension with CKD (chronic kidney disease), stage II One daily 90 Tablet 1 024 2023 Discontinued Venlafaxine HCl 37.5 MG Oral Tablet (Effexor) Take 1 Tablet by mouth in the morning. 2023 Discontinued(M edication List Clean Up) documented as of this encounter (statuses as of 10/31/2024) Active Problems Problem Noted Date Diagnosed Date [...] set at 12/10 -- start auto [facility]IP[facility] - [facility] Primary hypertension 10/17/2009 Overview (10/17/2009): Modified per HTN protocol #16. Acquired hypothyroidism Gastroesophageal reflux dise ase with esophagitis 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 Coronary artery disease invo lving [place] coronary artery of [place] heart without angina pectoris Adjustment disorder with depressed mood documented as of this encounter (statuses as of 10/31/2024) Resolved Problems Problem Noted Date Diagnosed Date [...] persistent 09/23/2012 09/23/2012 [facility] Disorder [facility] Other*[id number] 09/12/2012 06/25/2016 ADVANCE DIRECTIVE INFORMATION 06/11/2011 10/02/2024 [...] as of this encounter (statuses as of 10/31/2024) Immunizations Name Administration Dates Next Due COVID-19 mRNA, LNP-s, No Pre serve, 2-Dose Series (Moderna) 03/15/2021,02/16/2021 COVID-19, MRNA-LNP, PF, 30 M CG/0.3 mL, 12 YRS AND ABOVE, IM ([facility]) 09/11/2024,11/17/2023 COVID-19, mRNA, LNP-s, PF, B ooster, [...] encounter Miscellaneous Notes * Telephone Encounter - Bryanna Mendoza OSA - 10/31/2024 11:59 AM EST scheduled * Telephone Encounter - Cherelle Cantu, MED ASSIST - 10/25/2024 10:43 AM EST Called to rescheduled. LMOM * Telephone Encounter - Carla Sosa OSA - 10/24/2024 2:16 PM EST Neuroscience Phone Call Form- Requested Information from caller: Who is calling patient Provider patient is established with: Shannan Robles What is the concern or issue they are having: Patient has an appt scheduled for 10/30 with Judy she is asking for a different day and time as this appt will not work for her please advisecould not find another appt with requested provider. Phone number for nurse to call back: [phone] Clinic has 24-48 hours to respond to caller. If caller is calling back before timeframe with any changes in condition/issues reported, update TEand re-route to appropriate pool If caller is calling back before timeframe- update TE- no need to re-route [facility] Neurology Pool- [facility] Neuro Tool Room Machinist- [phone] (All messages get sent to the [facility]) Neurology Pool Numbers- [place] and [place] patients - follow normal process Ops req [facility] Neurology ([place])- [id number] Ops req [place] Neurology ([place]- [facility] and [facility] clinics Only)- [id number] Neurosurgery Pool Numbers- [place] patients- follow normal process Ops req Neurosurgery [facility] ([place])- [id number] Ops req Neurosurgery [facility] ([place] Only) [id number] documented in this encounter Plan of Treatment Upcoming Encounters Date Type Department Care Team (Late st Contact Info) Description 11/30/2024 12:30 PM EST Office Visit Neurology [facility] [address] [place] [address] Lashaun Moore PA-C [address] [place] [address] 01/23/2025 1:20 PM EST Office Visit [address] [place] [phone] Lilo Ba MD [address] [place] [place] [address] [place] [phone] 03/12/2025 2:00 PM EDT Office Visit [address] [place] [phone] Lilo Ba MD [address] [place] [place] [address] [place] [phone] 03/26/2025 4:00 PM EDT Office Visit Cardiology, [facility] [address] [place] [address] Chace Peacock, [address] [place] [address] Health Maintenance Due Date Last Done Comments [...] Screening 10/18/2025 10/18/2024 CKD HGB USE SMARTSET 95362 10/27/202510/27, 10/27/2024, 09/11/2024, Additional history exists CKD PHOS USE SMARTSET 01569 10/27/202509/30, 09/16/2020, 08/29/2019 DXA Scan 05/31/2026 05/31/2019, [...] filedocumented as of this encounter Care Teams Business Process Associate Relationship Specialty Start Date End Date Lilo Ba MD [address] [place] [address] [place] [phone] PCP - General Family Medicine 10/23/24 documented as of this encounter
--- OUTSIDE RECORDS SUMMARY | 2024-12-28 15:47 | External Medical Summary ---
Author Name Unknown Address Unknown Organization K01:[facility] [address] [place] [address] Laboratory Report Ordering Provider Test Date Status NAYLATREMAINE BRANTLEYFabby MILLI 10/27/2024 09:57:45 Final Observation Date Value Abnormality Reference (Units ) Status Phosphate 10/27/2024 09:57:45 4.0 2.5-4.8 (m g/dL) Final Performing Location [facility] - [address] [place] [address]
--- OUTSIDE RECORDS SUMMARY | 2024-12-28 15:47 | External Medical Summary | Summary of Care ---
Author Name Unknown Organization [facility] Address [address] [place] [address] Phone [phone] Care Team Providers Care Jet Pilot Name Role Phone Lilo Ba MD Primary Care Pr ovider Reason for Visit * Reason Onset Date Comments Medication Question 10/27/2024 Encounter Details Date Type Department Care Team (Late st Contact Info) Description 10/27/[address] [phone] Lilo Ba MD [address] [place] [phone] Medication Question Allergies Active Allergy Reactions Criticality Noted Date Comments Brassica Oleracea 05/17/2020 Other Reaction(s): Gas Crab (Diagnostic) 04/05/2018 Crab Extract 05/17/2020 Other Reaction(s): diarrhea Food (See Comments) 07/24/2015 Broccoli, beans, cauliflower - cause gas Grapefruit, oranges - cause bronchitis - positive skin test Grapefruit Extract 05/17/2020 Other Reaction(s): BRONCHITIS [place] Oil 05/17/2020 Other Reaction(s): BRONCHITIS Paroxetine Hydrochloride 04/03/2009 Penicillins 04/03/2009 Blisters on hands Peanut-Containing Drug Products Abdominal pain Medium 07/24/2015 Gas, bloating Phaseolus 01/10/2024 Other Reaction(s): Bloating, Gas also with green beans documented as of this encounter (statuses as of 10/27/2024) Medications triamcinolone acetonide (ARISTOCORT) 0.1 % creamIndications: [...] type 2, 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% ([facility]) TEST BLOOD SUGAR ONCE DAILY DIRECTED DX E11.9 100 Each 3 Active OneTouch Verio In Vitro Strip (Glucose Blood)Indications :DM type 2, 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% ([facility]) Test blood sugar once [...] blood pressure less than 140/90,Atheroscle rosis of [place] coronary artery of [place] heart without angina pectoris,Paroxysm al atrial fibrillation (HCC) Take 1 Tablet by mouth in the morning and 1 Tablet before bedtime. 180 Tablet 1 024 Active Montelukast Sodium 10 MG Oral Tablet (Singulair)Indica tions:Other seasonal allergic rhinitis Take 1 Tablet by mouth at bedtime. 90 Tablet 1 024 Active Atorvastatin Calcium 20 MG Oral Tablet (Lipitor)Indicati ons:Atheroscleros is of [place] coronary artery of [place] heart without angina pectoris,Paroxysm al atrial fibrillation [...] bedtime. 90 Tablet 1 024 Active Nystatin 930037 UNIT/GM External CreamIndications: Dermatitis Apply topically to [...] THE MORNING 90 Tablet 1 024 Active Magnesium 400 MG Oral Tablet Take [...] colton metFORMIN HCl 850 MG Oral Tablet (Glucophage)Indic ations:Type 2 diabetes mellitus with hemoglobin A1c goal of less than 7.0% ([facility]) TAKE 1 TABLET BY MOUTH TWICE A DAY WITH BREAKFAST AND DINNER 180 Tablet 1 024 2023 Discontinued Venlafaxine HCl 37.5 MG Oral Tablet (Effexor) Take 1 Tablet by mouth in the morning. 2023 Discontinued(M edication List Clean Up) documented as of this encounter (statuses as of 10/27/2024) Active Problems Problem Noted Date Diagnosed Date [...] 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 Coronary artery disease invo lving [place] coronary artery of [place] heart without angina pectoris Adjustment disorder with depressed mood documented as of this encounter (statuses as of 10/27/2024) Resolved Problems Problem Noted Date Diagnosed Date [...] Genetic Sleep Disorder [facility]ea [facility] Other*[id number] 09/12/2012 06/25/2016 ADVANCE DIRECTIVE INFORMATION 06/11/2011 10/02/2024 [...] as of this encounter (statuses as of 10/27/2024) Immunizations Name Administration Dates Next Due COVID-19 [...] encounter Miscellaneous Notes * Telephone Encounter - Lilo Ba MD - 10/27/2024 1:29 PM EST Ok to continue off the metformin based on last A1C. Removed from med list. * Telephone Encounter - Marisa Merrill LPN - 10/27/2024 1:04 PM EST RAFFI Brody from [facility] is calling. Reprots that the [...] that the pt had labs done today. Mary Grace did removed Metformin from pt's pill cyber ops planner to prevent hypoglycemia. Pt does not [...] 10/30/2024 10:00 AM EST Office Visit Neurology [facility] [address] [facility] [place] [address] Emelia Robles PA-C [address] [facility] [place] [address] 01/23/2025 1:20 PM EST Office Visit Family Medicine [address] [place] [address] Lilo Ba MD [address] [place] [address] [place] [phone] 03/12/2025 2:00 PM EDT Office Visit Family Medicine [address] [place] [phone] Lilo Ba MD [address] [place] [address] [place] [phone] 03/26/2025 4:00 PM EDT Office Visit Cardiology, [facility] [address] [place] [address] Chace Peacock, DO [address] [place] [address] Health Maintenance Due Date Last Done Comments Zoster Vaccines (1 of 2) 1989 Adult Wellness Visit 07/24/2016 07/24/2015 CKD PHOS USE SMARTSET 66696 09/16/2021 09/16/2020, 1 Diabetic Foot Exam 04/28/2024 04/28/2023, 0 03/12/2022, 04/01/2021, Additional history exists Diabetic Eye Exam 09/03/2024 09/03/2023, , 09/03/2023, Additional history exists Albumin/Creatinine Ratio 11/17/2024 023, 11/17/2022, 11/13/2021, Additional history exists HbA1c 03/12/2025 09/11/2024, 10/30, 04/28/2023, Additional history exists CKD HGB USE SMARTSET 80915 09/11/202509/11, 09/11/2024, 02/23/2024, Additional history exists TSH [...] filedocumented as of this encounter Care Teams Jet Pilot Relationship Specialty Start Date End Date Lilo Ba MD [address] [place] [address] [place] [phone] PCP - General Family Medicine 10/23/24 documented as of this encounter
--- OUTSIDE RECORDS SUMMARY | 2024-12-28 15:47 | External Medical Summary | Summary of Care ---
Author Name Unknown Organization [facility] Address [address] [place] [address] Phone [phone] Care Team Providers Care Poultry Field Service Technician Name Role Phone Lilo Ba MD Primary Care Pr ovider Reason for Visit * Reason Comments Outpatient Testing Encounter Details Date Type Department Care Team (Late st Contact Info) Description 10/27/2024 10:10 AM EST Laboratory Laboratory [address] [place] [phone] [place] [address] [place] [address] Subdural hematoma ([facility]); Benign hypertension with CKD (chronic kidney disease) stage III ([facility]); DM type 2, 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% ([facility]) Allergies Active Allergy Reactions Criticality Noted Date Comments Brassica Oleracea 05/17/2020 Other Reaction(s): Gas Crab (Diagnostic) 04/05/2018 Crab Extract 05/17/2020 Other Reaction(s): diarrhea Food (See Comments) 07/24/2015 Broccoli, beans, cauliflower - cause gas Grapefruit, oranges - cause bronchitis - positive skin test Grapefruit Extract 05/17/2020 Other Reaction(s): BRONCHITIS [place] Oil 05/17/2020 Other Reaction(s): BRONCHITIS Paroxetine Hydrochloride 04/03/2009 Penicillins 04/03/2009 Blisters on hands Peanut-Containing Drug Products Abdominal pain Medium 07/24/2015 Gas, bloating Phaseolus 01/10/2024 Other Reaction(s): Bloating, Gas also with green beans documented as of this encounter (statuses as of 10/27/2024) Medications triamcinolone acetonide (ARISTOCORT) 0.1 % creamIndications:I [...] 2, 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% ([facility]) TEST BLOOD SUGAR ONCE DAILY DIRECTED DX E11.9 100 Each 3 01/03/20 24 Active OneTouch Verio In Vitro Strip (Glucose Blood)Indications: DM type 2, 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% ([facility]) Test blood sugar once daily as directed; [...] crush or chew 40 Tablet 2 04/15/20 Active Centrum Silver Oral Tablet Take 1 Tablet by mouth in the morning. 90 Tablet 3 04/21/20 Active CoQ-10 100 MG Oral Capsule Take 1 Capsule by mouth in the morning. 90 Capsule 3 04/21/20 Active Zinc 50 MG Oral Tablet Take 1 Tablet by mouth in the morning. 90 Tablet 3 04/21/20 Active Aspirin 81 MG Oral Tablet Delayed Release (Ecotrin Low Strength) Take 1 Tablet by mouth in the morning. 100 Tablet 3 04/21/20 Active metFORMIN HCl 850 MG Oral Tablet (Glucophage)Indica tions:Type 2 diabetes mellitus with hemoglobin A1c goal of less than 7.0% (HCC) TAKE 1 TABLET BY MOUTH TWICE A DAY WITH BREAKFAST AND DINNER 180 Tablet 1 04/21/20 Active Additional Information Patient not taking.Reported on 10/25/2024 Metoprolol Tartrate 25 MG Oral Tablet (Lopressor)Indicat ions:Essential hypertension with goal blood pressure less than 140/90,Atheroscler osis of [place] coronary artery of [place] heart without angina pectoris,Paroxysma l atrial fibrillation (HCC) Take 1 Tablet by mouth in the morning and 1 Tablet before bedtime. 180 Tablet 1 04/21/20 Active Montelukast Sodium 10 MG Oral Tablet (Singulair)Indicat ions:Other seasonal allergic rhinitis Take 1 Tablet by mouth at bedtime. 90 Tablet 1 04/21/20 Active Atorvastatin Calcium 20 MG Oral Tablet (Lipitor)Indicatio ns:Atherosclerosis of [place] coronary artery of [place] heart without angina pectoris,Paroxysma l atrial fibrillation (HCC),Dyslipidemia , goal LDL below 100 take one pill by mouth at bedtime 90 Tablet 1 04/21/20 Active Potassium Chloride Krystal ER 20 MEQ Oral Tablet Extended Release (Klor-Con M20) Take 1 Tablet by mouth in the morning. 90 Tablet 1 04/21/20 24 Active Ramelteon 8 MG Oral Tablet (Rozerem)Indicatio ns:Insomnia, unspecified type Take 1 Tablet by mouth at bedtime. 90 Tablet 1 06/14/20 24 Active Nystatin 042427 UNIT/GM External CreamIndications:D ermatitis Apply topically to [...] MORNING 90 Tablet 1 10/19/20 24 Active Venlafaxine HCl 37.5 MG Oral Tablet [...] 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 Coronary artery disease invo lving [place] coronary artery of [place] heart without angina pectoris Adjustment disorder with [...] persistent 09/23/2012 09/23/2012 Genetic Sleep Disorder Resea [facility] Other*[id number] 09/12/2012 06/25/2016 ADVANCE DIRECTIVE INFORMATION 06/11/2011 10/02/2024 [...] CG/0.3 mL, 12 YRS AND ABOVE, IM (CognectionComirnaty) 09/11/2024,11/17/2023 COVID-19, mRNA, LNP-s, PF, B ooster, [...] No 10/18/2024 Does the household have a [facility] source of income? (Household - [...] State [place] [address] [place] [address] Emelia Robels PA-C [address] [place] [address] [address] 01/23/2025 1:20 PM EST Office Visit Family Medicine [address] [place] [phone] Lilo Ba MD [address] [place] [address] [place] [phone] 03/12/2025 2:00 PM EDT Office Visit Family Medicine [address] [place] [phone] Lilo Ba MD [address] [place] [address] [place] [phone] 03/26/2025 4:00 PM EDT Office Visit Cardiology, [facility] [address] [place] [address] Chace Peacock DO [address] [place] [address] Pending Results Name Type Priority Associated Diagnoses Date /Time COMPREHENSIVE METABOLIC PANEL Lab Routine Subdural hematoma (HCC) Benign hypertension with CKD (chronic kidney disease) stage III ([facility]) DM type 2, 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% ([facility]) 10/27/2024 9:57 AM EST PHOSPHORUS Lab Routine Subdural hematoma (HCC) Benign hypertension with CKD (chronic kidney disease) stage III ([facility]) 10/27/2024 9:57 AM EST MAGNESIUM Lab Routine Subdural hematoma ([facility]) Benign hypertension with CKD (chronic kidney disease) stage III ([facility]) 10/27/2024 9:57 AM EST CBC WITH WBC DIFFERENTIAL Lab Routine Subdural hematoma ([facility]) 10/27/2024 9:57 AM EST CBC Lab Routine Subdural hematoma ([facility]) 10/27/2024 9:57 AM EST DIFFERENTIAL, AUTOMATED Lab Routine Subdural hematoma ([facility]) 10/27/2024 9:57 AM EST Health Maintenance Due Date Last Done Comments Zoster Vaccines (1 of 2) 1990 Adult Wellness Visit 07/24/2016 07/24/2015 CKD PHOS USE SMARTSET 97029 09/16/2021 09/16/2020, 1 Diabetic Foot Exam 04/28/2024 04/28/2023, 0 03/12/2022, 04/01/2021, Additional history exists Diabetic Eye Exam 09/03/2024 09/03/2023, , 09/03/2023, Additional history exists Albumin/Creatinine Ratio 11/17/2024 023, 11/17/2022, 11/13/2021, Additional history exists HbA1c 03/12/2025 09/11/2024, 10/30, 04/28/2023, Additional history exists CKD HGB USE SMARTSET 74326 09/11/202509/11, 09/11/2024, 02/23/2024, Additional history exists TSH [...] as of this encounter Visit Diagnoses Diagnosis Subdural hematoma (HCC) Subdural hemorrhage 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) Benign hypertensive kidney disease with chronic kidney disease stage I through stage IV, or unspecified DM type 2, 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% (HCC) documented in this encounter Care Teams Poultry Field Service Technician Relationship Specialty Start Date End Date Lilo Ba MD [address] [place] [address] [place] [phone] PCP - General Family Medicine 10/23/24 documented as of this encounter
--- OUTSIDE RECORDS SUMMARY | 2024-12-28 15:47 | External Medical Summary ---
Author Name Unknown Address Unknown Organization K01:[facility] - [facility] [address] Laboratory Report Ordering Provider Test Date Status FLEX [place] 10/27/2024 09:57:45 Final Observation Date Value Abnormality Reference (Units ) Status WBC, Total 10/27/2024 09:57:45 8.32 4.00-10.80 (K/uL) Final RBC 10/27/2024 09:57:45 4.02 3.85-5.15 (M/uL) Final Hemoglobin 10/27/2024 09:57:45 12.4 12.0-15.3 (g/dL) Final HCT 10/27/2024 09:57:45 39.8 36.0-45.2 (%) Final MCV 10/27/2024 09:57:45 99.0 81.5-97.5 (fL) Final MCH 10/27/2024 09:57:45 30.8 27.0-34.0 (pg) Final MCHC 10/27/2024 09:57:45 31.2 32.0-36.0 (g/dL) Final RDW 10/27/2024 09:57:45 15.5 11.5-15.5 (%) Final Platelets 10/27/2024 09:57:45 290 140-400 (K/uL) Final MPV 10/27/2024 09:57:45 12.0 6.6-11.1 (fL) Final Nucleated erythrocytes/100 leukocytes [Ratio] in Blood by Automated count 10/27/2024 09:57:45 0 <=0 (/100 WBCs) Final Performing Location LABORATORY [facility] - [address] [place] [address]
--- OUTSIDE RECORDS SUMMARY | 2024-12-28 15:47 | External Medical Summary | Summary of Care ---
Author Name Unknown Organization [facility] Address [address] [place] [address] Phone [phone] Care Team Providers Care Coining Press Operator Name Role Phone Lilo Ba MD Primary Care Pr ovider Reason for Visit * Reason Onset Date Comments Appointment 10/24/2024 Encounter Details Date Type Department Care Team ([facility] st Contact Info) Description 10/24/2024 Telephone Neurology, [facility] [address] [place] [address] Services, Scheduling [address] [place] [address] Appointment Allergies Active Allergy Reactions Criticality Noted Date Comments Brassica Oleracea 05/17/2020 Other Reaction(s): Gas Crab (Diagnostic) 04/05/2018 Crab Extract 05/17/2020 Other Reaction(s): diarrhea Food (See Comments) 07/24/2015 Broccoli, beans, cauliflower - cause gas Grapefruit, oranges - cause bronchitis - positive skin test Grapefruit Extract 05/17/2020 Other Reaction(s): BRONCHITIS [place] Oil 05/17/2020 Other Reaction(s): BRONCHITIS Paroxetine Hydrochloride 04/03/2009 Penicillins 04/03/2009 Blisters on hands Peanut-Containing Drug Products Abdominal pain Medium 07/24/2015 Gas, bloating Phaseolus 01/10/2024 Other Reaction(s): Bloating, Gas also with green beans documented as of this encounter (statuses as of 10/25/2024) Medications triamcinolone acetonide (ARISTOCORT) 0.1 % creamIndications:I [...] DM type 2, 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% ([facility]) Test blood sugar once daily as directed; [...] morning. 90 Tablet 3 04/21/20 24 Active Vitamin D-3 25 MCG (1000 UT) Oral Capsule Take 1 Capsule by mouth in the morning. 90 Capsule 3 04/21/20 Active CoQ-10 100 MG Oral Capsule Take 1 Capsule by mouth in the morning. 90 Capsule 04/21/20 Active Vitamin B-12 1000 MCG Oral Tablet (Cyanocobalamin) Take 1 Tablet by mouth in the morning. 90 Tablet 3 04/21/20 Active Vitamin C 500 MG Oral Tablet (Ascorbic Acid) Take 1 Tablet by mouth in the morning. 90 Tablet 3 04/21/20 Active Zinc 50 MG Oral Tablet Take 1 Tablet by mouth in the morning. 90 Tablet 04/21/20 Active Aspirin 81 MG Oral Tablet Delayed Release (Ecotrin Low Strength) Take 1 Tablet by mouth in the morning. 100 Tablet 3 04/21/20 Active metFORMIN HCl 850 MG Oral Tablet (Glucophage)Indica tions:Type 2 diabetes mellitus with hemoglobin A1c goal of less than 7.0% (HCC) TAKE 1 TABLET BY MOUTH TWICE A DAY WITH BREAKFAST AND DINNER 180 Tablet 04/21/20 Active Additional Information Patient not taking.Reported on 10/23/2024 Metoprolol Tartrate 25 MG Oral Tablet (Lopressor)Indicat ions:Essential hypertension with goal blood pressure less than 140/90,Atheroscler osis of [place] coronary artery of [place] heart without angina pectoris,Paroxysma l atrial fibrillation (HCC) Take 1 Tablet by mouth in the morning and 1 Tablet before bedtime. 180 Tablet 1 04/21/20 Active Montelukast Sodium 10 MG Oral Tablet (Singulair)Indicat ions:Other seasonal allergic rhinitis Take 1 Tablet by mouth at bedtime. 90 Tablet 1 04/21/20 Active Atorvastatin Calcium 20 MG Oral Tablet (Lipitor)Indicatio ns:Atherosclerosis of [place] coronary artery of [place] heart without angina pectoris,Paroxysma l atrial fibrillation (HCC),Dyslipidemia , goal LDL below 100 take one pill by mouth at bedtime 90 Tablet 1 04/21/20 Active Potassium Chloride Krystal ER 20 MEQ Oral Tablet Extended Release (Klor-Con M20) Take 1 Tablet by mouth in the morning. 90 Tablet 04/21/20 24 Active Ramelteon 8 MG Oral Tablet (Rozerem)Indicatio ns:Insomnia, unspecified type Take 1 Tablet by mouth at bedtime. 90 Tablet 1 06/14/20 Active Nystatin [id number] UNIT/GM External CreamIndications:D ermatitis Apply topically to affected area 2 times a day. To affacted area for two weeks. 60 g 2 07/12/20 24 Active amLODIPine Besylate 10 MG Oral Tablet (Norvasc)Indicatio ns:Benign hypertension with CKD (chronic kidney disease), stage II One daily 90 Tablet 1 08/10/20 24 Active Additional Information Patient not taking.Reported on 10/23/2024 hydrALAZINE HCl 25 MG Oral Tablet (Apresoline)Indica [...] tablet. 90 Tablet 1 10/23/20 24 Active documented as of this encounter (statuses as of 10/25/2024) Active Problems Problem Noted Date Diagnosed Date Benign hypertension with CKD (chronic kidney [...] Sleep Disorder Resea [facility] Other*[id number] 09/12/2012 06/25/2016 ADVANCE DIRECTIVE INFORMATION 06/11/2011 10/02/2024 [...] mL, 12 YRS AND ABOVE, IM ([facility]) 09/11/2024,11/17/2023 COVID-19, mRNA, LNP-s, PF, B ooster, [...] encounter Miscellaneous Notes * Telephone Encounter - Cherelle Cantu MED ASSIST - 10/25/2024 10:43 AM EST [...] Phone number for nurse to call back: [phone] Clinic has 24-48 hours to respond to caller. If caller is calling back before timeframe with any changes in condition/issues reported, update TEand re-route to appropriate pool If caller is calling back before timeframe- update TE- no need to re-route Ped Neurology Pool- [facility] Neuro Pulverizer Mill Operator- [id number] (All messages get sent to the [facility]) Neurology Pool Numbers- [facility] and [facility] patients - follow normal process Ops req [facility] ([place])- [id number] Ops req [place] Neurology ([place]- [facility] clinics Only)- [id number] Neurosurgery Pool Numbers- [facility] patients- follow normal process Ops req Neurosurgery [facility] ([place])- [id number] Ops req Neurosurgery [facility] ([place] Only) [id number] documented in this encounter Plan of Treatment Upcoming Encounters Date Type Department Care Team (Late st Contact Info) Description 10/25/2024 11:30 AM EST Office Visit Cardiology, [facility] [address] [place] [address] Francheska Ponce PA-C [address] [place] [address] 10/30/2024 10:00 AM EST Office Visit Neurology [facility] [place] [address] [place] [address] Emelia Robles PA-C [address] [place] [address] 01/23/2025 1:20 PM EST Office Visit [address] [place] [phone] Lilo Ba MD [address] [place] [address] [place] [phone] 03/12/2025 2:00 PM EDT Office Visit [address] [place] [phone] Lilo Ba MD [address] [place] [address] [place] [address] 03/26/2025 4:00 PM EDT Office Visit Cardiology, [facility] [address] [place] [address] Chace Peacock, [address] [place] [address] Health Maintenance Due Date Last Done Comments Zoster Vaccines (1 of 2) 1989 Adult Wellness Visit 07/24/2016 07/24/2015 CKD PHOS USE SMARTSET [id number] 09/16/2021 09/16/2020, 1 Diabetic Foot Exam 04/28/2024 04/28/2023, 0 03/12/2022, 04/01/2021, Additional history exists Diabetic Eye Exam 09/03/2024 09/03/2023, , 09/03/2023, Additional history exists Albumin/Creatinine Ratio 11/17/2024 023, 11/17/2022, 11/13/2021, Additional history exists HbA1c 03/12/2025 09/11/2024, 10/30, 04/28/2023, Additional history exists CKD HGB USE SMARTSET 84067 09/11/202509/11, 09/11/2024, 02/23/2024, Additional history exists TSH [...] filedocumented as of this encounter Care Teams Coining Press Operator Relationship Specialty Start Date End Date Lilo Ba MD [address] [place] [address] [place] [phone] PCP - General Family Medicine 10/23/24 documented as of this encounter
--- OUTSIDE RECORDS SUMMARY | 2024-12-28 15:47 | External Medical Summary ---
Author Name Unknown Address Unknown Organization K01:[facility] - [address] [place] [address] Laboratory Report Ordering Provider Test Date Status FLEX [place] MILLI 10/27/2024 09:57:45 Final Observation Date Value Abnormality Reference (Units ) Status Magnesium 10/27/2024 09:57:45 2.1 1.5-2.6 (m g/dL) Final Performing Location [facility] [address] [place] [address]
--- OUTSIDE RECORDS SUMMARY | 2024-12-28 15:48 | External Medical Summary | Summary of Care ---
Author Name Unknown Organization [facility] Address [address] [place] [address] Phone [phone] Care Team Providers Care Lathe Scalper Operator Name Role Phone Lilo Ba MD Primary Care Pr ovider Reason for Visit * Reason Onset Date Comments Appointment 10/24/2024 Encounter Details Date Type Department Care Team ([facility] st Contact Info) Description 10/24/2024 Telephone Neurology, [facility] [address] [place] [address] Services, Scheduling [address] [place] [address] Appointment Allergies Active Allergy Reactions Criticality Noted Date Comments Brassica Oleracea 05/17/2020 Other Reaction(s): Gas Crab (Diagnostic) 04/05/2018 Crab Extract 05/17/2020 Other Reaction(s): diarrhea Food (See Comments) 07/24/2015 Broccoli, beans, cauliflower - cause gas Grapefruit, oranges - cause bronchitis - positive skin test Grapefruit Extract 05/17/2020 Other Reaction(s): BRONCHITIS [place] Oil 05/17/2020 Other Reaction(s): BRONCHITIS Paroxetine Hydrochloride 04/03/2009 Penicillins 04/03/2009 Blisters on hands Peanut-Containing Drug Products Abdominal pain Medium 07/24/2015 Gas, bloating Phaseolus 01/10/2024 Other Reaction(s): Bloating, Gas also with green beans documented as of this encounter (statuses as of 10/24/2024) Medications triamcinolone acetonide (ARISTOCORT) 0.1 % creamIndications:I [...] type 2, 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% ([facility]) TEST BLOOD SUGAR ONCE DAILY DIRECTED DX E11.9 100 Each 3 01/03/20 24 Active OneTouch Verio In Vitro Strip (Glucose Blood)Indications: DM type 2, 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% ([facility]) Test blood sugar once daily as directed; [...] blood pressure less than 140/90,Atheroscler osis of [place] coronary artery of [place] heart without angina pectoris,Paroxysma l atrial fibrillation (HCC) Take 1 Tablet by mouth in the morning and 1 Tablet before bedtime. 180 Tablet 1 04/21/20 Active Montelukast Sodium 10 MG Oral Tablet (Singulair)Indicat ions:Other seasonal allergic rhinitis Take 1 Tablet by mouth at bedtime. 90 Tablet 1 04/21/20 Active Atorvastatin Calcium 20 MG Oral Tablet (Lipitor)Indicatio ns:Atherosclerosis of [place] coronary artery of [place] heart without angina pectoris,Paroxysma l atrial fibrillation [...] bedtime. 90 Tablet 1 06/14/20 Active Nystatin 806890 UNIT/GM External CreamIndications:D ermatitis Apply topically to [...] as of this encounter (statuses as of 10/24/2024) Active Problems Problem Noted Date Diagnosed Date [...] ase with esophagitis 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 Atherosclerosis of [place] co ronary artery of [place] heart without angina pectoris Adjustment disorder with depressed mood documented as of this encounter (statuses as of 10/24/2024) Resolved Problems Problem Noted Date Diagnosed Date [...] Sleep Disorder Resea [facility] Other*[id number] 09/12/2012 06/25/2016 ADVANCE DIRECTIVE INFORMATION 06/11/2011 10/02/2024 [...] as of this encounter (statuses as of 10/24/2024) Immunizations Name Administration Dates Next Due COVID-19 mRNA, LNP-s, No Pre serve, 2-Dose Series (Moderna) 03/15/2021,02/16/2021 COVID-19, MRNA-LNP, PF, 30 M CG/0.3 mL, 12 YRS AND ABOVE, IM ([facility]) 09/11/2024,11/17/2023 COVID-19, mRNA, LNP-s, PF, B ooster, [...] encounter Miscellaneous Notes * Telephone Encounter - Carla Sosa OSA [...] Phone number for nurse to call back: [phone] Clinic has 24-48 hours to respond to caller. If caller is calling back before timeframe with any changes in condition/issues reported, update TEand re-route to appropriate pool If caller is calling back before timeframe- update TE- no need to re-route Peds Neurology Pool- [facility] Neuro Broadcast Supervisor- [id number] (All messages get sent to the [facility]) Neurology Pool Numbers- [place] and [place] patients - follow normal process Ops req [facility] [place] ([place])- [id number] Ops req [place] Neurology ([place]- [facility] and [facility] clinics Only)- [id number] Neurosurgery Pool Numbers- [facility] patients- follow normal process Ops req Neurosurgery [facility] ([place])- [id number] Ops req Neurosurgery [facility] ([place] Only) [id number] documented in this encounter Plan of Treatment Upcoming Encounters Date Type Department Care Team (Late st Contact Info) Description 10/25/2024 11:30 AM EST Office Visit Cardiology, [facility] [address] [place] [address] Francheska Ponce PA-C [address] [place] [address] 10/30/2024 10:00 AM EST Office Visit Neurology [facility] [address] [facility] [place] [address] Emelia Robles PA-C [address] [facility] [place] [address] 01/23/2025 1:20 PM EST Office Visit Family Medicine [address] [place] [phone] Lilo Ba MD [address] [place] [address] [place] [phone] 03/12/2025 2:00 PM EDT Office Visit Family Medicine [address] [place] [phone] Lilo Ba MD [address] [place] [address] [place] [phone] 03/26/2025 4:00 PM EDT Office Visit Cardiology, [facility] [address] [place] [address] Chace Peacock, [address] [place] [address] Health Maintenance Due Date Last Done Comments Zoster Vaccines (1 of 2) 1990 Adult Wellness Visit 07/24/2016 07/24/2015 CKD PHOS USE SMARTSET 47729 09/16/2021 09/16/2020, 1 Diabetic Foot Exam 04/28/2024 04/28/2023, 0 03/12/2022, 04/01/2021, Additional history exists Diabetic Eye Exam 09/03/2024 09/03/2023, , 09/03/2023, Additional history exists Albumin/Creatinine Ratio 11/17/2024 023, 11/17/2022, 11/13/2021, Additional history exists HbA1c 03/12/2025 09/11/2024, 12, 04/28/2023, Additional history exists CKD HGB USE SMARTSET 30224 09/11/202509/11, 09/11/2024, 02/23/2024, Additional history exists TSH [...] filedocumented as of this encounter Care Teams Lathe Scalper Operator Relationship Specialty Start Date End Date Lilo Ba MD [address] [place] [address] [place] [phone] PCP - General Family Medicine 10/23/24 documented as of this encounter
--- OUTSIDE RECORDS SUMMARY | 2024-12-28 15:48 | External Medical Summary | Summary of Care ---
Author Name Unknown Organization [facility] Address [address] [place] [address] Phone [phone] Care Team Providers Care Forestry Foreman Name Role Phone Unavailable Primary Care Provider Unavailabl e Reason for Visit * Reason Comments eRx-Medication Refill Encounter Details Date Type Department Care Team (Late st Contact Info) Description 10/18/2024 Refill Family Medicine [address] [phone] Linda Smith MD [address] [place] [address] [place] [phone] Benign hypertension with CKD (chronic kidney disease), [...] test Grapefruit Extract 05/17/2020 Other Reaction(s): BRONCHITIS [place] Oil 05/17/2020 Other Reaction(s): BRONCHITIS Paroxetine Hydrochloride 04/03/2009 Penicillins 04/03/2009 Blisters on hands Peanut-Containing Drug Products Abdominal pain Medium 07/24/2015 Gas, bloating Phaseolus 01/10/2024 Other Reaction(s): Bloating, Gas also with green beans documented as of this encounter (statuses as of 10/19/2024) Medications triamcinolone acetonide (ARISTOCORT) 0.1 % creamIndications: [...] type 2, 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% ([facility]) TEST BLOOD SUGAR ONCE DAILY DIRECTED DX E11.9 100 Each 3 Active OneTouch Verio In Vitro Strip (Glucose Blood)Indications :DM type 2, 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% ([facility]) Test blood sugar once daily [...] the morning. 90 Tablet 3 024 Active Vitamin D-3 25 MCG (1000 UT) Oral Capsule Take 1 Capsule by mouth in the morning. 90 Capsule 3 024 Active CoQ-10 100 MG Oral Capsule Take 1 Capsule by mouth in the morning. 90 Capsule 3 024 Active Vitamin B-12 1000 MCG Oral Tablet (Cyanocobalamin) Take 1 Tablet by mouth in the morning. 90 Tablet 3 024 Active Vitamin C 500 MG Oral Tablet (Ascorbic Acid) Take 1 Tablet by mouth in the morning. 90 Tablet 3 024 Active Zinc 50 MG Oral [...] BREAKFAST AND DINNER 180 Tablet 1 024 Active Metoprolol Tartrate 25 MG Oral Tablet (Lopressor)Indica tions:Essential hypertension with goal blood pressure less than 140/90,Atheroscle rosis of [place] coronary artery of [place] heart without angina pectoris,Paroxysm al atrial fibrillation (HCC) Take 1 Tablet by mouth in the morning and 1 Tablet before bedtime. 180 Tablet 1 024 Active Montelukast Sodium 10 MG Oral Tablet (Singulair)Indica tions:Other seasonal allergic rhinitis Take 1 Tablet by mouth at bedtime. 90 Tablet 1 024 Active Atorvastatin Calcium 20 MG Oral Tablet (Lipitor)Indicati ons:Atheroscleros is of [place] coronary artery of [place] heart without angina pectoris,Paroxysm al atrial fibrillation [...] bedtime. 90 Tablet 1 024 Active Nystatin 114794 UNIT/GM External CreamIndications: Dermatitis Apply topically to affected area 2 times a day. To affacted area for two weeks. 60 g 2 024 Active Eliquis 5 MG Oral Tablet (Apixaban)Indicat ions:Paroxysmal atrial fibrillation (HCC) TAKE 1 TABLET BY MOUTH TWICE A DAY 180 Tablet 3 024 Active amLODIPine Besylate 10 MG Oral Tablet (Norvasc)Indicati ons:Benign hypertension with CKD (chronic kidney disease), stage II One daily 90 Tablet 1 024 Active hydrALAZINE HCl 25 MG Oral Tablet (Apresoline)Indic ations:Benign hypertension with CKD (chronic kidney disease), stage II Take 1 Tablet by mouth in the morning and 1 Tablet before bedtime. 180 Tablet 1 024 Active Levothyroxine Sodium 100 MCG Oral Tablet (Levoxyl)Indicati ons:Acquired hypothyroidism TAKE 1 TABLET BY MOUTH EVERY DAY IN THE MORNING 90 Tablet 3 024 Active Magnesium Oxide -Mg Supplement 400 (240 Mg) MG Oral Tablet (Mag-Ox) Take 1 Tablet by mouth in the morning. 90 Tablet 1 024 Active oxyBUTYnin Chloride ER 10 MG Oral Tablet Extended Release 24 Hour (Ditropan XL) Take 1 Tablet by mouth in the morning. 90 Tablet 1 024 Active Pantoprazole Sodium 40 MG Oral Tablet Delayed Release (Protonix)Indicat ions:Gastroesopha geal reflux disease with esophagitis 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 Take 1 Tablet by mouth in the morning. 30 minutes before the first meal of the day. Do not crush, split or chew the tablet. 30 Tablet 5 024 Active Sodium Chloride 1 GM Oral [...] THE MORNING 90 Tablet 1 024 Active Losartan Potassium 100 MG Oral Tablet (Cozaar)Indicatio ns:Benign hypertension with CKD (chronic kidney disease), stage II,Essential hypertension with goal blood pressure less than 140/90,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) Take 1 Tablet by mouth in the morning. 90 Tablet 1 024 2023 Discontinued documented as of this encounter (statuses as of 10/19/2024) Active Problems Problem Noted Date Diagnosed Date BMI 31.0-31.9,adult 11/17/2023 Overview (11/17/2023): [address] [...] ase with esophagitis 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 Atherosclerosis of [place] co ronary artery of [place] heart without angina pectoris Adjustment disorder with depressed mood documented as of this encounter (statuses as of 10/19/2024) Resolved Problems Problem Noted Date Diagnosed Date [...] persistent 09/23/2012 09/23/2012 Genetic Sleep Disorder Resea [facility] Other*[id number] 09/12/2012 06/25/2016 ADVANCE DIRECTIVE INFORMATION 06/11/2011 10/02/2024 [...] as of this encounter (statuses as of 10/19/2024) Immunizations Name Administration Dates Next Due COVID-19 mRNA, LNP-s, No Pre serve, 2-Dose Series (Moderna) 03/15/2021,02/16/2021 COVID-19, MRNA-LNP, PF, 30 M CG/0.3 mL, 12 YRS AND ABOVE, IM (PFIZER-[facility]) 09/11/2024,11/17/2023 COVID-19, mRNA, LNP-s, PF, B ooster, [...] encounter Miscellaneous Notes * Telephone Encounter - [facility] - 10/19/2024 10:32 AM EST Signed Prescriptions: Disp Refills Losartan Potassium 100 MG Oral Tablet (Coz*90 Tab*1 Sig: TAKE 1 TABLET BY MOUTH EVERY DAY IN THE MORNINGAuthorizing Provider: Noe SMITH User:TALIB SCHWARZ Electronically signed by [facility] at 10/19/2024 10:32 AM EST documented in this encounter Plan of Treatment Upcoming Encounters Date Type Department Care Team (Late st Contact Info) Description 10/23/2024 10:40 AM EST Office Visit Family Medicine [address] [phone] Lilo Ba MD [address] [place] [address] [place] [phone] 10/25/2024 11:30 AM EST Office Visit Cardiology, [facility] [address] [facility] [place] [address] Francheska Ponce PA-C [address] [facility] [place] [address] 10/30/2024 10:00 AM EST Office Visit Neurology [facility] [address] [facility] [place] [address] Emelia Robles PA-C 200 [facility] [place] [address] 03/12/2025 2:00 PM EDT Office Visit Family Medicine [address] [phone] Lilo Ba MD [address] [place] [address] [place] [phone] 03/26/2025 4:00 PM EDT Office Visit Cardiology, [facility] [address] [place] [address] Chace Peacock, [address] [place] [address] Health Maintenance Due Date Last Done Comments Zoster Vaccines (1 of 2) 1989 Diabetic Foot Exam 04/28/2024 04/28/2023, 0 03/12/2022, [...]
--- OUTSIDE RECORDS SUMMARY | 2024-12-28 15:48 | External Medical Summary | Summary of Care ---
Author Name Unknown Organization [facility] Address [address] [place] [address] Phone [phone] Care Team Providers Care [place] Sawyer Name Role Phone Nayla Ba MD Primary Care Pr ovider Reason for Visit * Reason Onset Date Comments Medication Refill 10/23/2024 Encounter Details Date Type Department Care Team (Late st Contact Info) Description 10/23/2024 Refill Family Medicine [address] [phone] Rolanda Villalpando PA-C [address] [place] [address] [place] [phone] Gastroesophageal reflux disease with esophagitis 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 Allergies Active Allergy Reactions Criticality Noted Date Comments Brassica Oleracea 05/17/2020 Other Reaction(s): Gas Crab (Diagnostic) 04/05/2018 Crab Extract 05/17/2020 Other Reaction(s): diarrhea Food (See Comments) 07/24/2015 Broccoli, beans, cauliflower - cause gas Grapefruit, oranges - cause bronchitis - positive skin test Grapefruit Extract 05/17/2020 Other Reaction(s): BRONCHITIS Piqua Oil 05/17/2020 Other Reaction(s): BRONCHITIS Paroxetine Hydrochloride 04/03/2009 Penicillins 04/03/2009 Blisters on hands Peanut-Containing Drug Products Abdominal pain Medium 07/24/2015 Gas, bloating Phaseolus 01/10/2024 Other Reaction(s): Bloating, Gas also with green beans documented as of this encounter (statuses as of 10/23/2024) Medications triamcinolone acetonide (ARISTOCORT) 0.1 % creamIndications:I [...] type 2, 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% ([facility]) TEST BLOOD SUGAR ONCE DAILY DIRECTED DX E11.9 100 Each 3 01/03/20 24 Active OneTouch Verio In Vitro Strip (Glucose Blood)Indications: DM type 2, 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% ([facility]) Test blood sugar once daily as directed; [...] morning. 90 Tablet 3 04/21/20 Active Vitamin D-3 25 MCG (1000 UT) Oral Capsule Take 1 Capsule by mouth in the morning. 90 Capsule 04/21/20 Active CoQ-10 100 MG Oral Capsule Take 1 Capsule by mouth in the morning. 90 Capsule 04/21/20 Active Vitamin B-12 1000 MCG Oral Tablet (Cyanocobalamin) Take 1 Tablet by mouth in the morning. 90 Tablet 04/21/20 Active Vitamin C 500 MG Oral Tablet (Ascorbic Acid) Take 1 Tablet by mouth in the morning. 90 Tablet 04/21/20 Active Zinc 50 MG Oral Tablet Take 1 Tablet by mouth in the morning. 90 Tablet 04/21/20 Active Aspirin 81 MG Oral Tablet Delayed Release (Ecotrin Low Strength) Take 1 Tablet by mouth in the morning. 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 180 Tablet 04/21/20 Active Montelukast Sodium 10 MG Oral Tablet (Singulair)Indicat ions:Other seasonal allergic rhinitis Take 1 Tablet by mouth at bedtime. 90 Tablet 04/21/20 Active Atorvastatin Calcium 20 MG Oral Tablet (Lipitor)Indicatio ns:Atherosclerosis of [place] coronary artery of [place] heart without angina pectoris,Paroxysma l atrial fibrillation (HCC),Dyslipidemia , goal LDL below 100 take one pill by mouth at bedtime 90 Tablet 04/21/20 Active Potassium Chloride Krystal ER 20 MEQ Oral Tablet Extended Release (Klor-Con M20) Take 1 Tablet by mouth in the morning. 90 Tablet 04/21/20 Active Ramelteon 8 MG Oral Tablet (Rozerem)Indicatio ns:Insomnia, unspecified type Take 1 Tablet by mouth at bedtime. 90 Tablet 1 06/14/20 24 Active Nystatin 154157 UNIT/GM External CreamIndications:D ermatitis Apply topically to [...] tablet. 90 Tablet 1 10/23/20 24 Active Pantoprazole Sodium 40 MG Oral Tablet Delayed Release (Protonix)Indicati ons:Gastroesophage al reflux disease with esophagitis 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 Take 1 Tablet by mouth in the morning. 30 minutes before the first meal of the day. Do not crush, split or chew the tablet. 30 Tablet 5 09/28/20 24 024 Discontin ued(Refil l) documented as of this encounter (statuses as of 10/23/2024) Active Problems Problem Noted Date Diagnosed Date [...] ase with esophagitis 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 Atherosclerosis of [place] co ronary artery of [place] heart without angina pectoris Adjustment disorder with depressed mood documented as of this encounter (statuses as of 10/23/2024) Resolved Problems Problem Noted Date Diagnosed Date [...] 09/23/2012 Genetic Sleep Disorder Resea [facility] Other*[id number] 09/12/2012 06/25/2016 ADVANCE DIRECTIVE INFORMATION 06/11/2011 10/02/2024 [...] as of this encounter (statuses as of 10/23/2024) Immunizations Name Administration Dates Next Due COVID-19 mRNA, LNP-s, No Pre serve, 2-Dose Series (Moderna) 03/15/2021,02/16/2021 COVID-19, MRNA-LNP, PF, 30 M CG/0.3 mL, 12 YRS AND ABOVE, IM [facility] 09/11/2024,11/17/2023 COVID-19, mRNA, LNP-s, PF, B ooster, [...] encounter Miscellaneous Notes * Telephone Encounter - Nayla Ba MD - 10/23/2024 3:57 PM ESTSigned Prescriptions: Disp Refills Pantoprazole Sodium 40 MG Oral Tablet Alina*90 Tab*1 Sig: Take 1 Tablet by mouth in the morning. 30 minutes before the first meal of the day. Do not crush, split or chew the tablet. Authorizing Provider: NAYLA BA * Telephone Encounter - Marylin Gruber RN - 10/23/2024 3:52 PM ESTPending Prescriptions: Disp Refills Pantoprazole Sodium 40 MG Oral Tablet Alina*90 Tab*1 Sig: Take 1 Tablet by mouth in the morning. 30 minutes before the first meal of the day. Do not crush, split or chew the tablet. * Telephone Encounter - Rosa Maria Carlson OSA - 10/23/2024 2:40 PM EST Did you pend patient's preferred pharmacy and medication before forwarding?yes Pharmacy: [id number] Pending Prescriptions: Disp Refills Pantoprazole Sodium 40 MG Oral Tablet Del*30 Tab*5 Sig: Take 1 Tablet by mouth in the morning. 30 minutes before the first meal of the day. Do not crush, split or chew the tablet. Last Visit: 10/23/2024 (in office), Visit date not found (telemedicine) Next Visit: 01/23/2025 If no future appointments scheduled, and last appointment is greater than a year ago, please schedule patient for a follow-up appointment Last date the medication was ordered: 09.28.2024 Is this request for a controlled substance?No Urine Drug Screen:No results found. However, due to the size of the patient record, not all encounters were searched. Please check Results Review for a complete set of results. Patient Phone Numbers Labs: Lab Results Component Value Date/Time CREAT 0.7 09/11/2024 02:15 PM CREAT 0.8 09/16/2020 01:56 PM POTASSIUM 4.6 09/11/2024 02:15 PM POTASSIUM 3.8 09/16/2020 01:56 PM TSH 0.34 09/11/2024 02:15 PM TSH 0.51 04/29/2020 10:16 AM LDL 60 09/11/2024 02:15 PM LDL 67 09/16/2020 02:12 PM LDL UNINTERPRETABLE RESULT 01/23/2019 02:34 PM LDLCALC 46 05/07/2018 10:11 AM ALT 28 11/10/2023 09:38 AM ALT 20 04/27/2019 03:30 PM HGBA1C 5.7 (H) 09/11/2024 02:15 PM HGBA1C 6.3 (H) 06/10/2020 03:05 PM documented in this encounter Plan of Treatment Upcoming Encounters Date Type Department Care Team (Late st Contact Info) Description 10/25/2024 11:30 AM EST Office Visit Cardiology, [facility] [address] [address] Francheska Ponce PA-C [address] [place] [phone] 10/30/2024 10:00 AM EST Office Visit Neurology [facility] [address] [facility] [address] Emelia Robles PA-C [address] [place], [place] [address] 01/23/2025 1:20 PM EST Office Visit Family [address] [place] [phone] Nayla Ba MD [address] [place] [address] [place] [phone] 03/12/2025 2:00 PM EDT Office Visit [address] [place] [phone] Nayla Ba MD [address] [place] [address] [place] [phone] 03/26/2025 4:00 PM EDT Office Visit Cardiology, [facility] [address] [place] [address] Chace Peacock, [address] [place] [address] Health Maintenance Due Date Last Done Comments Zoster Vaccines (1 of 2) 1989 CKD PHOS USE SMARTSET 63816 09/16/2021 09/16/2020, 1 Diabetic Foot Exam 04/28/2024 04/28/2023, 0 03/12/2022, 04/01/2021, Additional history exists Diabetic Eye Exam 09/03/2024 09/03/2023, , 09/03/2023, Additional history exists Albumin/Creatinine Ratio 11/17/2024 023, 11/17/2022, 11/13/2021, Additional history exists HbA1c 03/12/2025 09/11/2024, 10/30, 04/28/2023, Additional history exists CKD HGB USE SMARTSET 16201 09/11/202509/11, 09/11/2024, 02/23/2024, Additional history exists TSH [...] Gastroesophageal reflux disease with esophagitis 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 documented in this encounter Care Teams [place] Sawyer Relationship Specialty Start Date End Date Nayla Ba MD [address] [place] [address] [place] [phone] PCP - General Family Medicine 10/23/24 documented as of this encounter
--- OUTSIDE RECORDS SUMMARY | 2024-12-28 15:48 | External Medical Summary | Summary of Care ---
Author Name Unknown Organization [facility] Address [address] [facility] [place] [address] Phone [phone] Care Team Providers Care Internal Communications Manager Name Role Phone Unavailable Primary Care Provider Unavailabl e Reason for Referral * Evaluate & Treat - Unlimited Visits (Within 10 days (routine)) - Authorized Specialty Diagnoses / Procedures Referred By Contac t Referred To Contact HOME CARE / Home Care Diagnoses Hospital discharge follow-up Subdural hematoma (HCC) Lilo Ba MD [address] [place] [address] [place] [address] Phone: tel: fax: Referral ID Status Reason Start Date Expiration Date Visits Requested Visits Authorized [id number] Authorized Specialty Services Required 4 [phone] Question Answer Referral Priority Within 10 days (routine) Where should this appointment be scheduled? Mitali Comments Documentation of Wtpj-na-Oexr Encounter Addendum Patient Name: Yudelka Palacios I certify that this patient is under my care and that I, or a nurse practitioner or physician's assistant news director working with me, had a [id number]-cf-[id number] encounter that meets the physician iawq-pk-ihzk encounter requirements with this patient on: 10/23/24 The encounter with the patient was in whole, or in part, for the following medical condition, which is the primary reason for home health care (List medical condition): Gait dysfunction, ADLs, recent subdural hematoma and fall I certify that, based on my findings, the following services are medically necessary home health services: Physical Therapy and OT To provide the following care/treatments: (All hospitalists not following the patient after discharge should complete this section): therapy at home for ADLs, Primary Care Physician to follow home care plan of care after discharge: Mark My clinical findings support the need for the above services because: recent hospitalization Further, I certify that my clinical findings support that this patient is homebound (i.e. Absences from home require considerable and taxing effort and are for medical reasons or [employer] or infrequently or of short duration when for other reason) because: Difficulty ambulating without assistance Physician Signature: Date of Signature: Physician Printed Name: Lilo Mai MD Reason for Visit * Reason Onset Date Comments Hospital Follow-Up Hospital Follow-Up 10/23/2024 Encounter Details Date Type Department Care Team (Late st Contact Info) Description 10/23/2024 10:40 AM EST Office Visit Family Medicine [address] [place] [phone] Lilo Ba MD [address] [place] [address] [place] [phone] Hospital discharge follow-up*; Subdural hematoma (HCC); Benign hypertension with CKD (chronic kidney disease) stage III ([facility]); DM type 2, 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% (HCC) Allergies Active Allergy Reactions Criticality Noted Date Comments Brassica Oleracea 05/17/2020 Other Reaction(s): Gas Crab (Diagnostic) 04/05/2018 Crab Extract 05/17/2020 Other Reaction(s): diarrhea Food (See Comments) 07/24/2015 Broccoli, beans, cauliflower - cause gas Grapefruit, oranges - cause bronchitis - positive skin test Grapefruit Extract 05/17/2020 Other Reaction(s): BRONCHITIS Grimes Oil 05/17/2020 Other Reaction(s): BRONCHITIS Paroxetine Hydrochloride 04/03/2009 Penicillins 04/03/2009 Blisters on hands Peanut-Containing Drug Products Abdominal pain Medium 07/24/2015 Gas, bloating Phaseolus 01/10/2024 Other Reaction(s): Bloating, Gas also with green beans documented as of this encounter (statuses as of 10/23/2024) Medications triamcinolone acetonide (ARISTOCORT) 0.1 % creamIndications: [...] :DM type 2, 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% (HCC) [...] blood pressure less than 140/90,Atheroscle rosis of nondalton coronary artery of nondalton heart without angina pectoris,Paroxysm al atrial fibrillation (HCC) Take 1 Tablet by mouth in the morning and 1 Tablet before bedtime. 180 Tablet 1 024 Active Montelukast Sodium 10 MG Oral Tablet (Singulair)Indica tions:Other seasonal allergic rhinitis Take 1 Tablet by mouth at bedtime. 90 Tablet 1 024 Active Atorvastatin Calcium 20 MG Oral Tablet (Lipitor)Indicati ons:Atheroscleros is of nondalton coronary artery of nondalton heart without angina pectoris,Paroxysm al atrial fibrillation [...] bedtime. 90 Tablet 1 024 Active Nystatin 099580 UNIT/GM External CreamIndications: Dermatitis Apply topically to affected area 2 times a day. To affacted area for two weeks. 60 g 2 024 Active amLODIPine Besylate 10 MG Oral [...] IN THE MORNING 90 Tablet 1 Active Venlafaxine HCl 37.5 MG Oral Tablet (Effexor) Take 1 Tablet by mouth in the morning. Active Magnesium 400 MG Oral Tablet Take 1 Tablet by mouth in the morning. Active Eliquis 5 MG Oral Tablet (Apixaban)Indicat ions:Paroxysmal atrial fibrillation (HCC) TAKE 1 TABLET BY MOUTH TWICE A DAY 180 Tablet 3 024 2023 Discontinued Magnesium Oxide -Mg Supplement 400 [...] ase with esophagitis 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 Atherosclerosis of nondalton co ronary artery of nondalton heart without angina pectoris Adjustment disorder with [...] 09/23/2012 Genetic Sleep Disorder Resea [facility] Other*[id number] 09/12/2012 06/25/2016 ADVANCE DIRECTIVE INFORMATION 06/11/2011 10/02/2024 [...] Sign Reading Time Taken Comments Blood Pressure 110/60 10/23/2024 10:48 AM EST Pulse 101 10/23/2024 10:48 AM EST Temperature 36.1 C (97 F) 10/23/2024 10:48 AM EST Respiratory Rate - - Oxygen Saturation 98% 10/23/2024 10:48 AM EST Inhaled Oxygen Concentration - - Weight 63 kg (139 lb) 10/23/2024 10:48 AM EST Height 152.4 cm (5') 10/23/2024 10:48 AM EST Body Mass Index 27.15 10/23/2024 10:48 AM EST documented in this encounter Patient Instructions * Patient Instructions* Lilo Ba MD - 10/23/2024 11:03 AM EST Taking Medicine Safely Medicine is given to help treat or prevent illness. But if you don't take it correctly, it might not help. It might even harm you. Your doctor or pharmacist can help you learn the right way to take your medicine. Listed below are some tips to help you take medicine safely. Safety Tips Have a routine for taking each medicine. Make it part of something you do each day, such as brushing your teeth or eating a meal. When you go to the hospital or your doctor's office, bring all your current medicines in their original boxes or bottles. If you can't do that, bring an up-to-date list of your medicines. Do not stop taking a prescription medicine unless your doctor tells you to. Doing so could make your condition worse. Do not share medicines. Let your doctor and pharmacist know of any allergies you have. Taking prescription medicines with alcohol, street drugs, herbs, supplements, or even some lxic-ofb-hfmxfzg medicines can be harmful. Talk to your doctor or pharmacist before using any of these things while taking a prescription medicine. When filling your prescriptions, try using the same pharmacy for all your medicines. If not, let the pharmacist know what medicines you are already on. Keep medicines out of the reach of children and pets. Do not use medicine that has or that doesn't look or smell right. Get rid of it properly. To find out the right way to get rid of medicine: Call your [facility] or [facility]'s household trash and recycling service and ask if a drug take-back program is available in your community. Call your local pharmacy and ask the right way to get rid of the medicine. Go to http://www.fda.gov/ForConsumers/ConsumerUpdates/rpj659002 to learn how to get rid of medicines safely. Using Generic Medicines Medicines have brand names and generic (chemical) names. When a medicine is first made, it is sold only under its brand name. Later, it can be made and sold as a generic. Generic medicines cost less than brand-name medicines and most work just as well. Most people can use the generic medicine instead of the brand-name medicine, unless their doctor says otherwise. [id number], [place] [address]. All rights reserved. This information is not intended as a substitute for professional medical care. Always follow your healthcare professional's instructions. documented in this encounter Progress Notes * Lilo Ba MD - 10/23/2024 10:55 AM EST SUBJECTIVE: Yudelka Palacios is a 84 year old female. Chief Complaint Patient presents with Hospital Follow-Up Hospital Follow-Up Recent Admission: Patient was recently admitted to [facility] on 10/12. The date of discharge was 10/16. Dischargereport received and reviewed. Here with significant other. Fall at home out of bed when she got up to go to the bathroom. Did hit her head off the bed frame. Head CT showed subdural vs hygroma, stopped eliquis due to fall risk and likely subdural hematoma. Was on eliquis after a stroke, changed to ASA. HPI: Doing well- feels like she's doing better. Using tylenol for head pain where it hit. Has home PT/OT. Using a walker to get around. Has some residual L foot issues after her prior stroke. Patient Active Problem List Diagnosis Acquired hypothyroidism Gastroesophageal reflux disease with esophagitis 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 Atherosclerosis of nondalton coronary artery of nondalton heart without angina pectoris Primary hypertension Sleep apnea, obstructive POAG (primary open-angle glaucoma) Adjustment disorder with depressed mood DDD (degenerative disc disease), cervical CURTIS (stress urinary incontinence, female) Paroxysmal atrial fibrillation ([facility]) Dyslipidemia, goal LDL below 100 Mild persistent asthma without complication Rhinitis, nonallergic DM type 2, 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% ([facility]) BMI 31.0-31.9,adult Type 2 diabetes mellitus with other diabetic ophthalmic complication ([facility]) Benign hypertension with CKD (chronic kidney disease), stage II Central stenosis of spinal canal Benign hypertension with CKD (chronic kidney disease) stage III ([facility]) Current Outpatient Medications Medication Sig Dispense Refill Albuterol Sulfate HFA 108 (90 Base) MCG/ACT Inhalation Aerosol Solution Inhale 2 Puffs by mouth every 4 hours as needed for Cough, Shortness of Breath or Wheezing (and with respiratory infections). 18 g 4 Lumigan 0.01 % Ophthalmic Solution Instill 1 Drop into both eyes at bedtime. Ketoconazole 2 % External Cream APPLY SPARINGLY TO AFFECTED AREA TWICE A DAY Wixela Inhub 250-50 MCG/ACT Inhalation Aerosol Powder Breath Activated (Fluticasone-Salmeterol) INHALE 1 PUFF BY MOUTH IN THE MORNING AND 1 PUFF BEFORE BEDTIME. 180 Each 3 Centrum Silver Oral Tablet Take 1 Tablet by mouth in the morning. 90 Tablet 3 Vitamin D-3 25 MCG (1000 UT) Oral Capsule Take 1 Capsule by mouth in the morning. 90 Capsule 3 CoQ-10 100 MG Oral Capsule Take 1 Capsule by mouth in the morning. 90 Capsule 3 Vitamin B-12 1000 MCG Oral Tablet (Cyanocobalamin) [...] by mouth at bedtime. 90 Tablet 1 hydrALAZINE HCl 25 MG [...] mouth in the morning. 90 Tablet 1 Pantoprazole Sodium 40 MG Oral Tablet Delayed Release (Protonix) Take 1 Tablet by mouth in the morning. 30 minutes before the first meal of the day. Do not crush, split or chew the tablet. 30 Tablet 5 Sodium Chloride 1 GM Oral Tablet Take [...] 1 Tablet by mouth in the morning. triamcinolone acetonide (ARISTOCORT) 0.1 % cream Apply topically to affected area 2 times a day. Toaffected area. 15 g 5 Azelastine HCl 0.1 % Nasal Solution Administer 2 Sprays into each nostril every evening. 90 mL 3 Fluticasone Propionate 50 MCG/ACT Nasal Suspension (Flonase) Administer 2 Sprays into each nostril every morning. 48 mL 3 OneTouch Delica Lancets 30G TEST BLOOD SUGAR ONCE DAILY DIRECTED DX E11.9 100 Each 3 OneTouch Verio In Vitro Strip (Glucose Blood) Test blood sugar once daily as directed; dx E11.9 100Strip 3 guaiFENesin ER 600 MG Oral Tablet Extended Release 12 Hour (Mucinex) Take 1 Tablet by mouth 2 timesa day as needed for Congestion. Take with plenty of water. Do not cut, crush or chew 40 Tablet 2 metFORMIN HCl 850 MG Oral Tablet (Glucophage) TAKE 1 TABLET BY MOUTH TWICE A DAY WITH BREAKFAST ANDDINNER 180 Tablet 1 Nystatin 142349 UNIT/GM External Cream Apply topically to affected area 2 times a day. To affacted area for two weeks. 60 g 2 Eliquis 5 MG Oral Tablet (Apixaban) TAKE 1 TABLET BY MOUTH TWICE A DAY (Patient not taking: Reported on 10/23/2024) 180 Tablet 3 amLODIPine Besylate 10 MG Oral Tablet (Norvasc) One daily 90 Tablet 1 Magnesium Oxide -Mg Supplement 400 (240 Mg) MG Oral Tablet (Mag-Ox) Take 1 Tablet by mouth in the morning. 90 Tablet 1 No current facility-administered medications for this visit. Current and discharge medications have been reconciled. Review of patient's allergies indicates: Allergen Reactions Peanut-Containing Drug Products Abdominal pain Gas, bloating Brassica Oleracea Other Reaction(s): Gas Crab (Diagnostic) Crab Extract Other Reaction(s): diarrhea Food (See Comments) Broccoli, beans, cauliflower - cause gas Grapefruit, oranges - cause bronchitis - positive skin test Grapefruit Extract Other Reaction(s): BRONCHITIS Grimes Oil Other Reaction(s): BRONCHITIS Paxil [Paroxetine Hydrochloride] Pcn [Penicillins] Blisters on hands Phaseolus Other Reaction(s): Bloating, Gas also with green beans OBJECTIVE: BP 110/60 | Pulse 101 | Temp 97 F (36.1 C) (Tympanic) | Ht 5' (1.524 m) | Wt 139 lb (63 kg) | SpO2 98% | BMI 27.15 kg/m | BSA 1.63 m Review Of Systems: Per HPI PHYSICAL EXAM: BP 110/60 | Pulse 101 | Temp 97 F (36.1 C) (Tympanic) | Ht 5' (1.524 m) | Wt 139 lb (63 kg) | SpO2 98% | BMI 27.15 kg/m | BSA 1.63 m General: alert, healthy, and no distress Head: Normocephalic, No masses, lesions, tenderness or abnormalities Eye Exam: PERRLA, extraocular movements intact, conjunctiva are pink and non- injected, sclera clear Oropharynx: no erythema, lips, buccal mucosa, and tongue normal, and mucous membranes are moist Neck: supple, no adenopathy, thyroid normal size, non-tender, without nodularity Lymph: no palpable lymphadenopathy Heart: regular rate & rhythm, no murmur, and no gallops Lungs: chest symmetric with normal AP diameter, no chest deformities noted, no chest wall tenderness, lungs clear to auscultation Abdomen: abdomen soft, non-tender, normal bowel sounds, and no masses or organomegaly Extremities: no joint deformities, effusion, or inflammation Neuro Exam: alert & oriented x 3 with fluent speech, no focal motor/sensory deficits, gait normal, reflexes normal and symmetric; L leg 4/5 strength; R leg 5/5; R arm assist against gravity (chronic per patient) Skin: skin color, texture, turgor are normal, no rashes or significant lesions ASSESSMENT: Hospital discharge follow-up (Primary) - DISCH MED RECON CUR MED LIS - HOME HEALTH REFERRAL OP Reviewed discharge paperwork. We will update labs. Refer for home PT/OT. Reestablish outpatient Neurology as well (sent ask a doc) Subdural hematoma (HCC) - COMPREHENSIVE METABOLIC PANEL; Future; Expected date: 10/23/2024 - PHOSPHORUS; Future; Expected date: 10/23/2024 - MAGNESIUM; Future; Expected date: 10/23/2024 - CBC WITH WBC DIFFERENTIAL; Future; Expected date: 10/23/2024 - HOME HEALTH REFERRAL OP Discussed Eliquis with the patient and continuing off of it. May continue on aspirin per Cardiologyrecommendations Benign hypertension with CKD (chronic kidney disease) stage III ([facility]) - COMPREHENSIVE METABOLIC PANEL; Future; Expected date: 10/23/2024 - PHOSPHORUS; Future; Expected date: 10/23/2024 - MAGNESIUM; Future; Expected date: 10/23/2024 Blood pressure controlled today. Recheck CMP for creatinine and electrolytes DM type 2, 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% ([facility]) - COMPREHENSIVE METABOLIC PANEL; Future; Expected date: 10/23/2024 We will be due for diabetic foot and eye exam, address at next visit Follow Up: Return in 3 months (on 01/23/2025). PLAN: Follow up in 3 month(s). I spent a total of 40-54 minutes (exact time 43 mins) minutes on the date of service in preparation, delivery, and documentation of the care provided to Yudelka Palacios excluding any time spent in performance of separately billed services. Lilo Mai MD documented in this encounter Nursing Notes * Liat Duran CMA - 10/23/2024 11:02 AM EST Pt here for hospital f/u; fell after waking up at 3AM and tripped getting out of bed. Had a 3-4 CT due to bleeding in paul after fall. Pt reports doing well since d/c, and pain has been controllablewith Tylenol. documented in this encounter Plan of Treatment Upcoming Encounters Date Type Department Care Team (Late st Contact Info) Description 10/25/2024 11:30 AM EST Office Visit [facility]iology, [facility] [address] [facility] [place] [address] Francheska Ponce PA-C [address] [place] [address] 10/30/2024 10:00 AM EST Office Visit Neurology [facility] [address] [facility] [place] [address] Emelia Robles PA-C [address] [facility] [place] [address] 03/12/2025 2:00 PM EDT Office Visit Family Medicine [address] [place] [phone] Lilo Ba MD [address] [place] [address] [place] [phone] 03/26/2025 4:00 PM EDT Office Visit Cardiology, [facility] [address] [place] [address] Chace Peacock DO [address] [place] [address] Scheduled Orders Name Type Priority Associated Diagnoses Orde r Schedule COMPREHENSIVE METABOLIC PANEL Lab Routine Subdural hematoma (HCC) 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) DM type 2, 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% (HCC) Expected: 10/23/2024 (Approximate), Expires: 11/22/2025 PHOSPHORUS Lab Routine Subdural hematoma (HCC) 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) Expected: 10/23/2024 (Approximate), Expires: 10/23/2025 MAGNESIUM Lab Routine Subdural hematoma (HCC) 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) Expected: 10/23/2024 (Approximate), Expires: 10/23/2025 CBC WITH WBC DIFFERENTIAL Lab Routine Subdural hematoma (HCC) Expected: 10/23/2024 (Approximate), Expires: 10/23/2025 Scheduled Referrals Name Type Priority Associated Diagnoses Orde r Schedule HOME HEALTH REFERRAL OP Referral Within 10 days (routine) Hospital discharge follow-up Subdural hematoma (HCC) Ordered: 10/23/2024 Health Maintenance Due Date Last Done Comments Zoster Vaccines (1 of 2) 1989 CKD PHOS USE SMARTSET [id number] 09/16/2021 09/16/2020, 1 Diabetic Foot Exam 04/28/2024 04/28/2023, 0 03/12/2022, 04/01/2021, Additional history exists Diabetic Eye Exam 09/03/2024 09/03/2023, , 09/03/2023, Additional history exists Albumin/Creatinine Ratio 11/17/2024 023, 11/17/2022, 11/13/2021, Additional history exists HbA1c 03/12/2025 09/11/2024, 10/30, 04/28/2023, Additional history exists CKD HGB USE SMARTSET 65265 09/11/202509/11, 09/11/2024, 02/23/2024, Additional history exists TSH [...] as of this encounter Visit Diagnoses Diagnosis Hospital discharge follow-up- Primary Other follow-up examination Subdural hematoma (HCC) Subdural hemorrhage 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) Benign hypertensive kidney disease with chronic kidney disease stage I through stage IV, or unspecified DM type 2, 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% (HCC) documented in this encounter"
--- OUTSIDE RECORDS SUMMARY | 2024-12-28 15:48 | External Medical Summary | Summary of Care ---
Author Name Unknown Organization [facility] Address [address] [place] [address] Phone [phone] Care Team Providers Care Aircraft Pneudraulic Systems Mechanic Name Role Phone Lilo Ba MD Primary Care Pr ovider Reason for Visit * Reason Onset Date Comments Appointment 10/24/2024 Encounter Details Date Type Department Care Team ([facility] st Contact Info) Description 10/24/2024 Telephone Neurology, [place] [address] [place] [address] Services, Scheduling [address] [place] [address] Appointment Allergies Active Allergy Reactions Criticality Noted Date Comments Brassica Oleracea 05/17/2020 Other Reaction(s): Gas Crab (Diagnostic) 04/05/2018 Crab Extract 05/17/2020 Other Reaction(s): diarrhea Food (See Comments) 07/24/2015 Broccoli, beans, cauliflower - cause gas Grapefruit, oranges - cause bronchitis - positive skin test Grapefruit Extract 05/17/2020 Other Reaction(s): BRONCHITIS [place] Oil 05/17/2020 Other Reaction(s): BRONCHITIS Paroxetine Hydrochloride [...] blood pressure less than 140/90,Atheroscler osis of [place] coronary artery of [place] heart without angina pectoris,Paroxysma l atrial fibrillation (HCC) Take 1 Tablet by mouth in the morning and 1 Tablet before bedtime. 180 Tablet 1 04/21/20 Active Montelukast Sodium 10 MG Oral Tablet (Singulair)Indicat ions:Other seasonal allergic rhinitis Take 1 Tablet by mouth at bedtime. 90 Tablet 1 04/21/20 Active Atorvastatin Calcium 20 MG Oral Tablet (Lipitor)Indicatio ns:Atherosclerosis of [place] coronary artery of [place] heart without angina pectoris,Paroxysma l atrial fibrillation [...] bedtime. 90 Tablet 1 06/14/20 Active Nystatin 121210 UNIT/GM External CreamIndications:D ermatitis Apply topically to [...] ase with esophagitis 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 Atherosclerosis of [place] co ronary artery of [place] heart without angina pectoris Adjustment disorder with [...] 09/23/2012 09/23/2012 Genetic Sleep Disorder Resea [facility] Other*[id number] 09/12/2012 06/25/2016 ADVANCE DIRECTIVE INFORMATION 06/11/2011 10/02/2024 [...] CG/0.3 mL, 12 YRS AND ABOVE, IM ([facility]) 09/11/2024,11/17/2023 COVID-19, mRNA, LNP-s, [...] Phone number for nurse to call back: [phone] Clinic has 24-48 hours to respond to caller. If caller is calling back before timeframe with any changes in condition/issues reported, update TEand re-route to appropriate pool If caller is calling back before timeframe- update TE- no need to re-route Ped Neurology Pool- [facility] Neuro Freight Sales Broker- [id number] (All messages get sent to the [facility]) Neurology Pool Numbers- [place] and [facility] patients - follow normal process Ops req [facility] Neurology ([place])- [id number] Ops req MD Neurology ([place]- [facility] clinics Only)- [id number] Neurosurgery Pool Numbers- [place] patients- follow normal process Ops req Neurosurgery [facility] ([place])- [id number] Ops req Neurosurgery [facility] ([place] Only) [id number] documented in this encounter Plan of Treatment Upcoming Encounters Date Type Department Care Team (Late st Contact Info) Description 10/25/2024 11:30 AM EST Office Visit Cardiology, [facility] [address] [address] Francheska Ponce PA-C [address] [place] [address] 10/30/2024 10:00 AM EST Office Visit Neurology [place] [facility]en Burt [address] [place] [address] Emelia Robles PA-C [address] [place] [place] [address] 01/23/2025 1:20 PM EST Office Visit [address] [place] [phone] Lilo Ba MD [address] [place] [address] [place] [phone] 03/12/2025 2:00 PM EDT Office Visit [address] [place] [phone] Lilo Ba MD [address] [place] [address] [place] [address] 03/26/2025 4:00 PM EDT Office Visit Cardiology, [facility] [address] [place] [address] Chace Peacock, [address] [place] [address] Health Maintenance Due Date Last Done Comments Zoster Vaccines (1 of 2) 1990 Adult Wellness Visit 07/24/2016 07/24/2015 CKD PHOS USE SMARTSET 74716 09/16/2021 09/16/2020, 1 Diabetic Foot Exam 04/28/2024 04/28/2023, 0 03/12/2022, 04/01/2021, Additional history exists Diabetic Eye Exam 09/03/2024 09/03/2023, , 09/03/2023, Additional history exists Albumin/Creatinine Ratio 11/17/2024 023, 11/17/2022, 11/13/2021, Additional history exists HbA1c 03/12/2025 09/11/2024, 10/30, 04/28/2023, Additional history exists CKD HGB USE SMARTSET 66322 09/11/202509/11, 09/11/2024, 02/23/2024, Additional history exists TSH [...] filedocumented as of this encounter Care Teams Aircraft Pneudraulic Systems Mechanic Relationship Specialty Start Date End Date Lilo Ba MD [address] [place] [address] [place] [phone] PCP - General Family Medicine 10/23/24 documented as of this encounter
--- OUTSIDE RECORDS SUMMARY | 2024-12-28 15:48 | External Medical Summary | Summary of Care ---
Author Name Unknown Organization [facility] Address [address] [place] [address] Phone [phone] Care Team Providers Care Coo Name Role Phone Unavailable Primary Care Provider Unavailabl e Reason for Visit * Reason Onset Date Comments Home Health 10/12/2024 Encounter Details Date Type Department Care Team (Late st Contact Info) Description 10/12/2024 Telephone Family Medicine [address] [address] Lilo Ba MD [address] [place] [address] [place] [address] Home Health Allergies Active Allergy Reactions Criticality Noted Date Comments Brassica Oleracea 05/17/2020 Other Reaction(s): Gas Crab (Diagnostic) 04/05/2018 Crab Extract 05/17/2020 Other Reaction(s): diarrhea Food (See Comments) 07/24/2015 Broccoli, beans, cauliflower - cause gas Grapefruit, oranges - cause bronchitis - positive skin test Grapefruit Extract 05/17/2020 Other Reaction(s): BRONCHITIS [place] Oil 05/17/2020 Other Reaction(s): BRONCHITIS Paroxetine Hydrochloride 04/03/2009 Penicillins 04/03/2009 Blisters on hands Peanut-Containing Drug Products Abdominal pain Medium 07/24/2015 Gas, bloating Phaseolus 01/10/2024 Other Reaction(s): Bloating, Gas also with green beans documented as of this encounter (statuses as of 10/12/2024) Medications triamcinolone acetonide (ARISTOCORT) 0.1 % creamIndications:I [...] DM type 2, 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% ([facility] [...] in the morning. 100 Tablet 04/21/20 Active Losartan Potassium 100 MG Oral Tablet (Cozaar)Indication s:Benign hypertension with CKD (chronic kidney disease), stage II,Essential hypertension with goal blood pressure less than 140/90,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) Take 1 Tablet by mouth in the morning. 90 Tablet 04/21/20 24 Active metFORMIN HCl 850 MG Oral Tablet (Glucophage)Indica tions:Type 2 diabetes mellitus with hemoglobin A1c goal of less than 7.0% (HCC) TAKE 1 TABLET BY MOUTH TWICE A DAY WITH BREAKFAST AND DINNER 180 Tablet 04/21/20 24 Active Metoprolol Tartrate 25 MG Oral Tablet (Lopressor)Indicat ions:Essential hypertension with goal blood pressure less than 140/90,Atheroscler osis of syc[place] coronary artery of sycuan heart without angina pectoris,Paroxysma l atrial fibrillation (HCC) Take 1 Tablet by mouth in the morning and 1 Tablet before bedtime. 180 Tablet 04/21/20 24 Active Montelukast Sodium 10 MG Oral Tablet (Singulair)Indicat ions:Other seasonal allergic rhinitis Take 1 Tablet by mouth at bedtime. 90 Tablet 04/21/20 24 Active Atorvastatin Calcium 20 MG Oral Tablet (Lipitor)Indicatio ns:Atherosclerosis of sy[place] coronary artery of syc[place] heart without angina pectoris,Paroxysma l atrial fibrillation (HCC),Dyslipidemia , goal LDL below 100 take one pill by mouth at bedtime 90 Tablet 04/21/20 24 Active Potassium Chloride Krystal ER 20 MEQ Oral Tablet Extended Release (Klor-Con M20) Take 1 Tablet by mouth in the morning. 90 Tablet 1 04/21/20 24 Active Ramelteon 8 MG Oral Tablet (Rozerem)Indicatio ns:Insomnia, unspecified type Take 1 Tablet by mouth at bedtime. 90 Tablet 1 06/14/20 24 Active Nystatin 106523 UNIT/GM External CreamIndications:D ermatitis Apply topically to affected area 2 times a day. To affacted area for two weeks. 60 g 2 07/12/20 24 Active Eliquis 5 MG Oral Tablet (Apixaban)Indicati ons:Paroxysmal atrial fibrillation (HCC) TAKE 1 TABLET BY MOUTH TWICE A DAY 180 Tablet 3 07/18/20 24 Active amLODIPine Besylate 10 MG Oral Tablet (Norvasc)Indicatio ns:Benign hypertension with CKD (chronic kidney disease), stage II One daily 90 Tablet 1 08/10/20 24 Active hydrALAZINE HCl 25 MG Oral Tablet (Apresoline)Indica tions:Benign hypertension with CKD (chronic kidney disease), stage II Take 1 Tablet by mouth in the morning and 1 Tablet before bedtime. 180 Tablet 1 08/10/20 24 Active Levothyroxine Sodium 100 MCG Oral Tablet (Levoxyl)Indicatio ns:Acquired hypothyroidism TAKE 1 TABLET BY MOUTH EVERY DAY IN THE MORNING 90 Tablet 3 09/22/20 24 Active Magnesium Oxide -Mg Supplement 400 (240 Mg) MG Oral Tablet (Mag-Ox) Take 1 Tablet by mouth in the morning. 90 Tablet 1 09/28/20 24 Active oxyBUTYnin Chloride ER 10 MG Oral Tablet Extended Release 24 Hour (Ditropan XL) Take 1 Tablet by mouth in the morning. 90 Tablet 1 09/28/20 24 Active Pantoprazole Sodium 40 MG Oral Tablet Delayed Release (Protonix)Indicati ons:Gastroesophage al reflux disease with esophagitis 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 Take 1 Tablet by mouth in the morning. 30 minutes before the first meal of the day. Do not crush, split or chew the tablet. 30 Tablet 5 09/28/20 24 Active Sodium Chloride 1 GM Oral Tablet Take 1 Tablet by mouth in the morning and 1 Tablet before bedtime. 180 Tablet 1 09/29/20 24 Active documented as of this encounter (statuses as of 10/12/2024) Active Problems Problem Noted Date Diagnosed Date [...] 12/10 -- start auto BIPAP DME - Rsahida Primary hypertension 10/17/2009 Overview (10/17/2009): Modified per HTN protocol #16. Acquired hypothyroidism Gastroesophageal reflux dise ase with esophagitis 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 Atherosclerosis of sycuan co ronary artery of sycuan heart without angina pectoris Adjustment disorder with depressed mood documented as of this encounter (statuses as of 10/12/2024) Resolved Problems Problem Noted Date Diagnosed Date [...] persistent 09/23/2012 09/23/2012 Genetic Sleep Disorder Resea [facility] Other*[id number] 09/12/2012 06/25/2016 ADVANCE DIRECTIVE INFORMATION 06/11/2011 10/02/2024 [...] as of this encounter (statuses as of 10/12/2024) Immunizations Name Administration Dates Next Due COVID-19 [...] years and over) Not on file 05/16/2024 Comments No Sex and Gender Information Value Date Recorded Sex Assigned at Not on file Legal Sex Female 6:26 AM EST Gender Identity Not on file Sexual Orientation Not on file documented as of this encounter Miscellaneous Notes * Telephone Encounter - Marisa Merrill LPN - 10/12/2024 12:04 PM EST HH Concerns ALBERTO Townsend, Calling from: [facility] Report/Concerns of: Fall Symptoms: See narrative. Vitals: T 97.6 P 57 RR1 8 BP 122/62 SP O2 98% RA Lung sounds Clear Weight 136 lbs. Narrative: Reports that the pt had a fall this AM at 0300. Pt's feet and legs were tangled in blankets which caused the fall. Pt did hit her head off the side of the rail on her bed. Did not loose consciousness when hitting her head. Has no bumps,bruises or scrapes to head. Pupils are round and reactive. Has no change in mental status and is fully alert and oriented x 3. Denies nausea and vomiting. Does have a bruise to the top of right hand/base of thumb that is purple in color. Does take Eliquis BID. Cary offered to call 911 for medical evaluation and pt declined due to not being in distress. Pt has positive bowel sounds and denies concerns with urinating including dysuria, frequency and urgency. Called PCP office, spoke with Lisa whom spoke with Marian and advise ED for CT scan. Cary and pt aware and will comply. Cary will call 911 for transport. Call back ALBERTO Townsend with any advice or orders at [phone] Please fax new orders to [facility] [phone]. documented in this encounter Plan of Treatment Upcoming Encounters Date Type Department Care Team (Late st Contact Info) Description 10/13/2024 12:40 PM EST Office Visit [address] [place] [address] Lilo Ba MD [address] [place] [address] [place] [phone] 10/25/2024 11:30 AM EST Office Visit Cardiology, [facility] [address] [place] [address] Francheska Ponce PA-C [address] [place] [address] 03/12/2025 2:00 PM EDT Office Visit [address] [place] [phone] Lilo Ba MD [address] [place] [address] [place] [phone] 03/26/2025 4:00 PM EDT Office Visit Cardiology, [facility] [address] [place] [address] Chace Peacock DO [address] [place] [address] Health Maintenance Due Date Last Done Comments [...]
--- OUTSIDE RECORDS SUMMARY | 2024-12-28 15:48 | External Medical Summary | Summary of Care ---
Author Name Unknown Organization [facility] Address [address] [place] [address] Phone [phone] Care Team Providers Care Transmission Inspector Name Role Phone Lilo Ba MD Primary Care Pr ovider Reason for Visit * Reason Onset Date Comments Appointment 10/24/2024 Encounter Details Date Type Department Care Team ([facility] st Contact Info) Description 10/24/2024 Telephone Neurology, [place] [address] [place] [address] Services, Scheduling [address] [place] [address] Appointment Allergies Active Allergy Reactions Criticality Noted Date Comments Brassica Oleracea 05/17/2020 Other Reaction(s): Gas Crab (Diagnostic) 04/05/2018 Crab Extract 05/17/2020 Other Reaction(s): diarrhea Food (See Comments) 07/24/2015 Broccoli, beans, cauliflower - cause gas Grapefruit, oranges - cause bronchitis - positive skin test Grapefruit Extract 05/17/2020 Other Reaction(s): BRONCHITIS [place] Oil 05/17/2020 Other Reaction(s): BRONCHITIS Paroxetine Hydrochloride [...] < 7.5% ([facility]) Test blood sugar once daily as directed; [...] blood pressure less than 140/90,Atheroscler osis of [place] coronary artery of [place] heart without angina pectoris,Paroxysma l atrial fibrillation (HCC) Take 1 Tablet by mouth in the morning and 1 Tablet before bedtime. 180 Tablet 1 04/21/20 Active Montelukast Sodium 10 MG Oral Tablet (Singulair)Indicat ions:Other seasonal allergic rhinitis Take 1 Tablet by mouth at bedtime. 90 Tablet 1 04/21/20 Active Atorvastatin Calcium 20 MG Oral Tablet (Lipitor)Indicatio ns:Atherosclerosis of [place] coronary artery of [place] heart without angina pectoris,Paroxysma l atrial fibrillation [...] bedtime. 90 Tablet 1 06/14/20 Active Nystatin 234059 UNIT/GM External CreamIndications:D ermatitis Apply topically to [...] ase with esophagitis 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 Atherosclerosis of [place] co ronary artery of [place] heart without angina pectoris Adjustment disorder with [...] 09/23/2012 09/23/2012 Genetic Sleep Disorder Resea [facility] Other*[id number] 09/12/2012 06/25/2016 ADVANCE DIRECTIVE INFORMATION 06/11/2011 10/02/2024 [...] CG/0.3 mL, 12 YRS AND ABOVE, IM ([facility]) 09/11/2024,11/17/2023 COVID-19, mRNA, LNP-s, PF, B ooster, [...] Phone number for nurse to call back: [phone] Clinic has 24-48 hours to respond to caller. If caller is calling back before timeframe with any changes in condition/issues reported, update TEand re-route to appropriate pool If caller is calling back before timeframe- update TE- no need to re-route Peds Neurology Pool- [facility] Neuro Senior Electronics Design Engineer- [id number] (All messages get sent to the [facility]) Neurology Pool Numbers- [place] and [place] patients - follow normal process Ops req [facility] Neurology ([place])- [id number] Ops req [place] Neurology ([place]- [facility] Only)- [id number] Neurosurgery Pool Numbers- [place] patients- follow normal process Ops req Neurosurgery [facility] ([place])- [id number] Ops req Neurosurgery [facility] ([place] Only) [id number] documented in this encounter Plan of Treatment Upcoming Encounters Date Type Department Care Team (Late st Contact Info) Description 10/25/2024 11:30 AM EST Office Visit Cardiology, [facility] [address] [place] [address] Francheska Ponce PA-C [address] [place] [address] 10/30/2024 10:00 AM EST Office Visit [facility] [address] [facility] [place] [address] Emelia Robles PA-C [address] [facility] [place] [address] 01/23/2025 1:20 PM EST Office Visit Family Medicine [address] [place] [phone] Lilo Ba MD [address] [place] [address] [place] [phone] 03/12/2025 2:00 PM EDT Office Visit Family Medicine [address] [place] [address] Lilo Ba MD [address] [place] [address] [place] [phone] 03/26/2025 4:00 PM EDT Office Visit Cardiology, [facility] [address] [place] [address] Chace Peacock, [address] [place] [address] Health Maintenance Due Date Last Done Comments Zoster Vaccines (1 of 2) 1990 Adult Wellness Visit 07/24/2016 07/24/2015 CKD PHOS USE SMARTSET 28882 09/16/2021 09/16/2020, 1 Diabetic Foot Exam 04/28/2024 04/28/2023, 0 03/12/2022, 04/01/2021, Additional history exists Diabetic Eye Exam 09/03/2024 09/03/2023, , 09/03/2023, Additional history exists Albumin/Creatinine Ratio 11/17/2024 023, 11/17/2022, 11/13/2021, Additional history exists HbA1c 03/12/2025 09/11/2024, 12, 04/28/2023, Additional history exists CKD HGB USE SMARTSET 12856 09/11/202509/11, 09/11/2024, 02/23/2024, Additional history exists TSH [...] filedocumented as of this encounter Care Teams Transmission Inspector Relationship Specialty Start Date End Date Lilo Ba MD [address] [place] [address] [place] [phone] PCP - General Family Medicine 10/23/24 documented as of this encounter
--- OUTSIDE RECORDS SUMMARY | 2024-12-28 15:49 | External Medical Summary | Summary of Care ---
Author Name Unknown Organization [facility] Address [address] [place] [address] Phone [phone] Care Team Providers Care Center Specialists Name Role Phone Unavailable Primary Care Provider Unavailabl e Reason for Visit * Reason Onset Date Comments Home Health 10/12/2024 Encounter Details Date Type Department Care Team (Late st Contact Info) Description 10/12/2024 Telephone Family Medicine [address] [phone] Lilo Ba MD [address] [place] [address] [place] [address] Home Health Allergies Active Allergy Reactions Criticality Noted Date Comments Brassica Oleracea 05/17/2020 Other Reaction(s): Gas Crab (Diagnostic) 04/05/2018 Crab Extract 05/17/2020 Other Reaction(s): diarrhea Food (See Comments) 07/24/2015 Broccoli, beans, cauliflower - cause gas Grapefruit, oranges - cause bronchitis - positive skin test Grapefruit Extract 05/17/2020 Other Reaction(s): BRONCHITIS [place] Oil 05/17/2020 Other Reaction(s): BRONCHITIS Paroxetine Hydrochloride [...] type 2, 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% ([facility]) TEST BLOOD SUGAR ONCE DAILY DIRECTED DX E11.9 100 Each 01/03/20 24 Active OneTouch Verio In Vitro Strip (Glucose Blood)Indications: DM type 2, 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% ([facility]) Test blood sugar once daily [...] blood pressure less than 140/90,Atheroscler osis of chitina coronary artery of chitina heart without angina pectoris,Paroxysma l atrial fibrillation (HCC) Take 1 Tablet by mouth in the morning and 1 Tablet before bedtime. 180 Tablet 04/21/20 24 Active Montelukast Sodium 10 MG Oral Tablet (Singulair)Indicat ions:Other seasonal allergic rhinitis Take 1 Tablet by mouth at bedtime. 90 Tablet 04/21/20 24 Active Atorvastatin Calcium 20 MG Oral Tablet (Lipitor)Indicatio ns:Atherosclerosis of [place]it[place] coronary artery of [place] heart without angina pectoris,Paroxysma l atrial fibrillation [...] 90 Tablet 1 06/14/20 24 Active Nystatin 866391 UNIT/GM External CreamIndications:D ermatitis Apply topically to [...] ase with esophagitis 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 Atherosclerosis of [place] co ronary artery of chit[place] heart without angina pectoris Adjustment disorder with [...] persistent 09/23/2012 09/23/2012 Genetic Sleep Disorder Resea [facility] Other*[id number] 09/12/2012 06/25/2016 ADVANCE DIRECTIVE INFORMATION 06/11/2011 10/02/2024 [...] EST HH Concerns ALBERTO Townsend, Calling from: [facility] Report/Concerns of: Fall Symptoms: See narrative. Vitals: [...] Townsend with any advice or orders at [phone] Please fax new orders to [facility] [phone]. documented in this encounter Plan of Treatment Upcoming Encounters Date Type Department Care Team (Late st Contact Info) Description 10/13/2024 12:40 PM EST Office Visit [address] [place] [address] Lilo Ba MD [address] [place] [address] [place] [phone] 10/25/2024 11:30 AM EST Office Visit Cardiology, [facility] [address] [place] [address] Francheska Ponce PA-C [address] [place] [address] 03/12/2025 2:00 PM EDT Office Visit [address] [place] [address] Lilo Ba MD [address] [place] [address] [place] [phone] 03/26/2025 4:00 PM EDT Office Visit Cardiology, [facility] [address] [place] [address] Chace Peacock DO [address] [place] [address] Health Maintenance Due Date Last Done Comments [...]
[2024-12-28] MEDS: ACETAMINOPHEN 325 MG TAB PO PRN (16:02)
[2024-12-28] MEDS: INSULIN ASPART PER UNIT CHARGE SC SCH (18:19)
[2024-12-28] MEDS: hydrALAZINE HCL 25 MG TAB PO SCH (20:31)
[2024-12-28] MEDS: HEPARIN SOD 5,000 UNIT/0.5 ML VIAL SQ SCH (20:31)
[2024-12-28] MEDS: ATORVASTATIN 20 MG TAB PO SCH (20:32)
[2024-12-28] MEDS: BIMATOPROST 0.01% OP SOLN 2.5 ML BTL OP SCH (20:33)
[2024-12-28] MEDS: METOPROLOL TARTRATE 25 MG TAB PO SCH (20:33)
[2024-12-28] MEDS: MONTELUKAST SODIUM 10 MG TABLET PO SCH (20:34)
--- OUTSIDE RECORDS SUMMARY | 2024-12-29 02:04 | External Medical Summary | Summary of Care ---
Author Name Unknown Organization [facility] Address [address] [place] [address] Phone [phone] Care Team Providers Care Dog Or Horse Racing Official Name Role Phone Lilo Ba MD Primary Care Pr ovider Reason for Visit * Reason Onset Date Comments Home Health 12/25/2024 Encounter Details Date Type Department Care Team (Late st Contact Info) Description 12/25/2024 Telephone Family Medicine [address] [phone] Lilo Ba MD [address] [place] [address] [place] [address] Home Health Allergies Active Allergy Reactions Criticality Noted Date Comments Brassica Oleracea 05/17/2020 Other Reaction(s): Gas Crab (Diagnostic) 04/05/2018 Crab Extract 05/17/2020 Other Reaction(s): diarrhea Food (See Comments) 07/24/2015 Broccoli, beans, cauliflower - cause gas Grapefruit, oranges - cause bronchitis - positive skin test Grapefruit Extract 05/17/2020 Other Reaction(s): BRONCHITIS [place] Oil 05/17/2020 Other Reaction(s): BRONCHITIS Paroxetine Hydrochloride 04/03/2009 Penicillins 04/03/2009 Blisters on hands Peanut-Containing Drug Products Abdominal pain Medium 07/24/2015 Gas, bloating Phaseolus 01/10/2024 Other Reaction(s): Bloating, Gas also with green beans documented as of this encounter (statuses as of 12/28/2024) Medications triamcinolone acetonide (ARISTOCORT) 0.1 % creamIndications:I [...] type 2, 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% ([facility]) TEST BLOOD SUGAR ONCE DAILY DIRECTED DX E11.9 100 Each 01/03/20 24 Active OneTouch Verio In Vitro Strip (Glucose Blood)Indications: DM type 2, 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% ([facility]) Test blood sugar once daily [...] 20 MG Oral Tablet (Lipitor)Indicatio ns:Atherosclerosis of [place] coronary artery of [place] heart without angina pectoris,Paroxysma l atrial fibrillation (HCC),Dyslipidemia , goal LDL below 100 take one pill by mouth at bedtime 90 Tablet 1 04/21/20 24 Active Potassium Chloride Krystal ER 20 MEQ Oral Tablet Extended Release (Klor-Con M20) Take 1 Tablet by mouth in the morning. 90 Tablet 1 04/21/20 24 Active Nystatin 040770 UNIT/GM External CreamIndications:D ermatitis Apply topically to [...] NEEDED FOR LAXATIVE EFFECT 10/16/20 24 Active Metoprolol Tartrate 25 MG Oral Tablet (Lopressor)Indicat ions:Essential hypertension with goal blood pressure less than 140/90,Atheroscler osis of [place] coronary artery of [place] heart without angina pectoris,Paroxysma l atrial fibrillation (HCC) Take 1 Tablet by mouth in the morning and 1 Tablet before bedtime. 180 Tablet 1 12/09/19 25 Active documented as of this encounter (statuses as of 12/28/2024) Active Problems Problem Noted Date Diagnosed Date [...] 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 Coronary artery disease invo lving [place] coronary artery of [place] heart without angina pectoris Adjustment disorder with depressed mood documented as of this encounter (statuses as of 12/28/2024) Resolved Problems Problem Noted Date Diagnosed Date [...] persistent 09/23/2012 09/23/2012 Genetic Sleep Disorder Resea [facility] Other*[id number] 09/12/2012 06/25/2016 ADVANCE DIRECTIVE INFORMATION 06/11/2011 10/02/2024 [...] as of this encounter (statuses as of 12/28/2024) Immunizations Name Administration Dates Next Due COVID-19 [...] Telephone Encounter - Per Vee LPN - 12/28/2024 10:05 AM EST HH Concerns TerriRuthPerfecto, Calling from: [place] Report/Concerns of: BP and UTI symptoms Symptoms: none Vitals: T-97.4 P-55-60 RR-18 BP -186/80 and 210/64 SP O2-95% RA Lung sounds-clear Weight-N/A Narrative: Marilyn states patient was not her self when she arrived today. Noted Malaise, Fatigue, head ache at base of elizabeth radiating forward,Hypertensive. Denies Nausea, vomiting, chest pain, or SOB. Marilyn called ambulance at 9:47 AM and they will take her to [facility]. Patient was complaining of UTI symptoms-urgency and frequency during HH visit today, but marilyn did not get urine sample today due to hypertension and unsafe to transfer. Please fax new orders to [facility] FYI * Telephone Encounter - Snehal Thompson OSA - 12/28/2024 10:03 AM EST Reason for patient's call: [facility] looking to speak with a nurse. Caller was transferred to [place] at the nurse line. * Telephone Encounter - Liat Duran CMA - 12/27/2024 12:43 PM EST Faxed copy of tele encounter with Dr Flores's ordered, also called and left message at [facility] numberlisted below * Telephone Encounter - Lilo Ba MD - 12/25/2024 3:21 PM EST Ok to check a UA and culture. If BP persists and she's having any symptoms with it, recommend evaluation JUAN. If no symptoms, can monitor. * Telephone Encounter - Marisa Merrill LPN - 12/25/2024 2:06 PM EST HH Concerns ALBERTO Townsend, Calling from: [place] Report/Concerns of: BP and Urinary sx Symptoms: uti- burning, urgency, and frequency Vitals: T 97.6 P 70 RR 18 BP 162/62 SP O2 95% RA Lung sounds clear Weight 137 lbs Ankle circumference: Left 20.5 cm Right 20 cm Narrative: States that the pt reported slight urgency, frequency and dysuria a couple of days ago. Also BP is elevated today at 162/62. Denies headaches, dizziness/lightheadedness, visual disturbances, chest pain and SOB. Is asking if a urine specimen should be obtained to check for UTI? Please advise. Call back Marilyn with any advice or orders at [phone]. Please fax new orders to [facility] [phone] * Telephone Encounter - Gabe Hester OSA - 12/25/2024 2:03 PM EST Reason for patient's call: elevated BP Caller was transferred to [place] at the nurse line. documented in this encounter Plan of Treatment Upcoming Encounters Date Type Department Care Team (Late st Contact Info) Description 01/23/2025 1:20 PM EST Office Visit Family [address] [phone] Lilo Ba MD [address] [place] [address] [place] [phone] 02/06/2025 12:30 PM EDT Office Visit Neurology [facility] [address] [address] Lashaun Moore [facility]-C [facility] [place] [address] 03/12/2025 2:00 PM EDT Office Visit Family [address] [phone] Lilo Ba MD [address] [place] [address] [place] [phone] 05/18/2025 3:30 PM EDT Office Visit Cardiology, [facility] [address] [place] [address] Francheska Ponce, PALichaC [address] [place] [address] 12/04/2025 3:30 PM EST Office Visit Cardiology, [facility] [address] [place] [address] Chace Peacock, [address] [place] [address] Health Maintenance Due Date Last Done Comments [...] Screening 10/18/2025 10/18/2024 CKD HGB USE SMARTSET 68997 10/27/202510/27, 10/27/2024, 09/11/2024, Additional history exists CKD PHOS USE SMARTSET 84398 10/27/202509/30, 09/16/2020, 08/29/2019 DXA Scan 05/31/2026 05/31/2019, [...] filedocumented as of this encounter Care Teams Dog Or Horse Racing Official Relationship Specialty Start Date End Date Lilo Ba MD [address] [place] [address] [place] [phone] PCP - General Family Medicine 10/23/24 documented as of this encounter
--- OUTSIDE RECORDS SUMMARY | 2024-12-29 02:04 | External Medical Summary | Summary of Care ---
Author Name Unknown Organization [facility] Address [address] [place] [address] Phone [phone] Care Team Providers Care Auto Transmission Specialist Name Role Phone Lilo Ba MD Primary Care Pr ovider Reason for Visit * Reason Onset Date Comments Home Health 12/25/2024 Encounter Details Date Type Department Care Team (Late st Contact Info) Description 12/25/2024 Telephone Family Medicine [address] [phone] Lilo Ba MD [address] [place] [address] [place] [address] Home Health Allergies Active Allergy Reactions Criticality Noted Date Comments Brassica Oleracea 05/17/2020 Other Reaction(s): Gas Crab (Diagnostic) 04/05/2018 Crab Extract 05/17/2020 Other Reaction(s): diarrhea Food (See Comments) 07/24/2015 Broccoli, beans, cauliflower - cause gas Grapefruit, oranges - cause bronchitis - positive skin test Grapefruit Extract 05/17/2020 Other Reaction(s): BRONCHITIS [place] Oil 05/17/2020 Other Reaction(s): BRONCHITIS Paroxetine Hydrochloride [...] HbA1c < 7.5% ([facility]) Test blood sugar once daily as directed; [...] 20 MG Oral Tablet (Lipitor)Indicatio ns:Atherosclerosis of [place] coronary artery of [place] heart without angina pectoris,Paroxysma l atrial fibrillation (HCC),Dyslipidemia , goal LDL below 100 take one pill by mouth at bedtime 90 Tablet 1 04/21/20 24 Active Potassium Chloride Krystal ER 20 MEQ Oral Tablet Extended Release (Klor-Con M20) Take 1 Tablet by mouth in the morning. 90 Tablet 1 04/21/20 24 Active Nystatin [id number] UNIT/GM External CreamIndications:D ermatitis Apply topically to [...] blood pressure less than 140/90,Atheroscler osis of [place] coronary artery of [place] heart without angina pectoris,Paroxysma l atrial fibrillation [...] 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 Coronary artery disease invo lving [place] coronary artery of [place] heart without angina pectoris Adjustment disorder with [...] Sleep Disorder Resea [facility] Other*[id number] 09/12/2012 06/25/2016 ADVANCE DIRECTIVE INFORMATION 06/11/2011 10/02/2024 [...] AM EST HH Concerns TerriRuthPerfecto, Calling from: [place] Report/Concerns of: BP and UTI symptoms Symptoms: [...] 10:03 AM EST Reason for patient's call: [facility] looking to speak with a nurse. Caller was transferred to [place] at the nurse line. * Telephone Encounter - Liat Duran CMA - 12/27/2024 12:43 PM EST Faxed copy of tele encounter with Dr Flores's ordered, also called and left message at [facility] numberlisted below * Telephone Encounter - Lilo Ba MD - 12/25/2024 3:21 PM EST Ok to check a UA and culture. If BP persists and she's having any symptoms with it, recommend evaluation JUAN. If no symptoms, can monitor. * Telephone Encounter - Marisa Merrill LPN - 12/25/2024 2:06 PM EST HH Concerns ALBERTO Townsend, Calling from: [place] Report/Concerns of: BP and Urinary sx Symptoms: [...] Marilyn with any advice or orders at [phone]. Please fax new orders to [facility] [phone] * Telephone Encounter - Gabe Hester OSA - 12/25/2024 2:03 PM EST Reason for patient's call: elevated BP Caller was transferred to Marisa at the nurse line. documented in this encounter Plan of Treatment Upcoming Encounters Date Type Department Care Team (Late st Contact Info) Description 01/23/2025 1:20 PM EST Office Visit Family [address] [address] Lilo Ba MD [address] [place] [address] [place] [phone] 02/06/2025 12:30 PM EDT Office Visit Neu[facility] [address] [facility] [address] Lashaun Moore PA-C [facility] [place] [address] 03/12/2025 2:00 PM EDT Office Visit Family [address] [phone] Lilo Ba MD [address] [place] [address] [place] [phone] 05/18/2025 3:30 PM EDT Office Visit Cardiology, [facility] [address] [place] [address] Francheska Ponce, PALichaC [address] [place] [address] 12/04/2025 3:30 PM EST Office Visit Cardiology, [facility] [address] [place] [address] Chace Peacock, [address] [place] [address] Health Maintenance Due Date Last Done Comments [...] Screening 10/18/2025 10/18/2024 CKD HGB USE SMARTSET 80648 10/27/202510/27, 10/27/2024, 09/11/2024, Additional history exists CKD PHOS USE SMARTSET 04802 10/27/202509/30, 09/16/2020, 08/29/2019 DXA Scan 05/31/2026 05/31/2019, [...] filedocumented as of this encounter Care Teams Auto Transmission Specialist Relationship Specialty Start Date End Date Lilo Ba MD [address] [place] [address] [place] [phone] PCP - General Family Medicine 10/23/24 documented as of this encounter
[2024-12-29] MEDS: LEVOTHYROXINE SODIUM 100 MCG TABLET PO SCH (06:17)
[2024-12-29 06:55] LABS: Basophils # (auto) 0.03 K/uL (0.00-0.20); Basophils % (auto) 0.5 %; Eosinophils # (auto) 0.23 K/uL (0.00-0.50); Eosinophils % (auto) 3.8 %; Hematocrit (blood only) 37.1 % (37.0-47.0); Hemoglobin 12.5 g/dl (12.0-16.0); Immature Granulocytes # (auto) 0.02 K/uL (0.01-0.20); Immature Granulocytes % (auto) 0.3 %; Lymphocytes # (auto) 1.34 K/uL (1.20-3.40); Mean Corpuscular Hemoglobin 30.3 pg (25.0-34.0); Mean Corpuscular Hgb Conc 33.7 g/dL (32.0-36.0); Mean Corpuscular Volume 89.8 fL (80.0-100.0); Mean Platelet Volume 12.2 fL (9.4-12.4); Monocytes # (auto) 0.65 K/uL (0.11-0.59); Monocytes % (auto) 10.7 %; Neutrophils # (auto) 3.82 K/uL (1.40-6.50); Neutrophils % (auto) 62.7 %; Platelet Count 247 K/uL (130-400); RDW Coefficient of Variation 14.5 % (11.5-14.5); Red Blood Count 4.13 M/uL (4.20-5.40); White Blood Count 6.09 K/ul (4.8-10.8)
[2024-12-29 07:19] LABS: BUN Creatinine Ratio 21.7 (10-20); Calcium 9.7 mg/dl (8.6-10.3); Creatinine Clr Calc Pharmacy 56.6 ml/min; Potassium 3.5 mmol/L (3.5-5.1)
[2024-12-29] MEDS: CYANOCOBALAMIN (B-12) 500 MCG TABLET PO SCH (08:31)
[2024-12-29] MEDS: CHOLECALCIFEROL 25 MCG (1000 UNITS) TAB PO SCH (08:31)
[2024-12-29] MEDS: ADVANCED PROBIOTIC 625 MG CAPSULE PO SCH (08:32)
[2024-12-29] MEDS: amLODIPine BESYLATE 5 MG TAB PO SCH (08:32)
[2024-12-29] MEDS: ASPIRIN 81 MG ECTAB PO SCH (08:32)
[2024-12-29] MEDS: FLUTICASONE/VILANTEROL 200/25MCG 14 PUFFS/INHALER INH SCH (08:32)
[2024-12-29] MEDS: PANTOprazole 40 MG TAB PO SCH (08:33)
[2024-12-29] MEDS: MAGNESIUM OXIDE 400 MG TAB PO SCH (08:33)
[2024-12-29] MEDS: LOSARTAN POTASSIUM 50 MG TAB PO SCH (08:33)
[2024-12-29] MEDS: CEROVITE ADV FORMULA TAB PO SCH (08:34)
[2024-12-29] MEDS: OXYBUTYNIN CHLORIDE XL 5 MG TABCR PO SCH (08:34)
[2024-12-29] MEDS: POTASSIUM CHLORIDE CRTAB 20 MEQ TABCR PO SCH (08:43)
[2024-12-29] MEDS: hydrALAZINE HCL 20 MG/ML VIAL IV ONE (08:46)
[2024-12-29] MEDS: CHLORTHALIDONE 25 MG TAB PO SCH (08:51)
[2024-12-29] MEDS: hydrALAZINE TAB 50 MG TAB PO SCH (08:51)
[2024-12-29] MEDS ORDERED: NON-FORMULARY MEDICATION (Coenzyme Q10 [Coq-10] 100 mg Capsule) PO SCH (09:00)
[2024-12-29] MEDS ORDERED: NON-FORMULARY MEDICATION (Zinc 50 mg Tablet) PO SCH (09:00)
[2024-12-29] MEDS: cefTRIAXone SODIUM 2,000 MG/50 ML BAG IV SCH (11:55)
--- NOTE | 2024-12-29 16:52 | Hospitalist Progress Note ---
Date of Service December 29, 2024 Assessment & Plan (1) UTI (urinary tract infection): (2) Hypertensive urgency: Plan Patient is a 84-year-old female with past medical history of type 2 diabetes mellitus, hypothyroidism, hyperlipidemia, DEMARIO, mild persistent asthma, paroxysmal A-fib, CAD, hypertension, GERD, stage III CKD, degenerative disks disease, subdural hematoma, mood disorder is brought to the hospital for concern of UTI and Elevated blood pressure. #Acute UTI Patient presents with increased urinary urgency and burning micturition for last 3 days Urinalysis suggestive of infection Past urine cultures revealed E. coli Plan: -continue ceftriaxone, discharge on 5 day course of bactrim/cipro #Hypertensive urgency -Patient presents with elevated systolic blood pressure. Past reading suggests similar elevation in systolic blood pressure. -Was on amlodipine 10 mg in the past which has been not been refilled. -Also on sodium chloride tablets. Plan: -continue amldopine, losartan -start chlorthalidone -increase hydralazine to 50 tid in acute setting, downtitrate slightly on discharge History of atrial fibrillationnanticoagulation discontinued last admission after discussion with cardiology. Continue on metoprolol/aspirin. Found to have possible SDH in July 2024; repeat scan in September showed no changes. History of hypothyroidismcontinue levothyroxine History of type 2 diabetes mellitus; well-controlled; sliding scale insulin Hyperlipidemiacontinue annual Lipitor History of asthma; continue home inhaler/montelukast Feeding/fluids: diabetic Analgesia: tylenol Sedation: na Thromboprophylaxis: heparin Head up position: na Ulcer prophylaxis: na Glycemic control: insulin protocol Spontaneous breathing trial: na Bowel care: miralax prn Indwelling catheter removal: na Deescalation of antibiotics: ceftriaxone while admitted I spent a total of 45 minutes in direct patient care, including [id number] time with the patient and/or family, reviewing medical records, ordering and reviewing diagnostic tests, and coordinating care with other healthcare providers. This time includes: history taking, physical examination, medical decision making, counseling, ECG interpretation, imaging interpretation, lab interpretation, orders, and education, excluding time spent in the performance of separately billed services. Admission and Anticipated Discharge Date Admission Date: December 28, 2024 Subjective a 84-year-old female with past medical history of severe hypertension, [place] embolic stroke, numerous orthopedic comorbidities, CAD, diabetes, DEMARIO, paroxysmal atrial fibrillation, asthma, GERD, hypothyroidism who presents from home for slight confusion and elevated blood pressure. in the ED noted to have borderline hypertensive urgency with no endorgan damage, patient admitted to medicine for medication titration. On medicine medications were uptitrated Patient seen examined at bedside discussed case with son as well. Patient is doing well today. She feels well overall, slight headache but that is normal for her. Would like to discharge in the morning to make sure that her blood pressure in the morning is stable. No chest pain or other associated symptoms. Review of Systems Review of Systems: CONSTITUTIONAL: Patient denies fevers, chills, sweats and weight changes. EYES: Patient denies any visual symptoms. EARS, NOSE, AND THROAT: No difficulties with hearing. No symptoms of rhinitis or sore throat. CARDIOVASCULAR: Patient denies chest pains, palpitations, orthopnea and paroxysmal nocturnal dyspnea. RESPIRATORY: No dyspnea on exertion, no wheezing or cough. GI: No nausea, vomiting, diarrhea, constipation, abdominal pain, hematochezia or melena. : No urinary hesitancy or dribbling. No nocturia or urinary frequency. No abnormal urethral discharge. MUSCULOSKELETAL: No myalgias or arthralgias. NEUROLOGIC: headache PSYCHIATRIC: Patient denies problems with mood disturbance. No problems with anxiety. ENDOCRINE: No excessive urination or excessive thirst. DERMATOLOGIC: Patient denies any rashes or skin changes. Physical Exam Physical Exam: Gen: A&O 3 NAD HEENT: NCAT, EOMI, not icteric. External ears normal. No rhinorrhea. Moist mucous membranes. Neck: Supple, full range of motion, no observable masses, No meningeal sign. Lungs: No Respiratory distress. CV: RRR, no edema. Abdomen: Soft, nondistended, No rebound tenderness. MSK: No joint swelling, no redness. Skin: No rashes, petechiae, lesions. Normal color per patient. Neuro: Normal Gait, Grossly intact. Psych: Appropriate for situation. Results & Data Results & Data Vital Signs (Past 12 Hours) Vital Signs Temp Pulse Pulse Resp BP BP Pulse Ox 12/29/24 15:23 36.8 C 64 20 136/70 95 12/29/24 11:13 36.3 C L 66 18 121/50 L 96 12/29/24 10:09 57 L 12/29/24 07:34 36.5 C 52 L 18 195/72 H 95 O2 Del Method 12/29/24 15:23 Room Air 12/29/24 11:13 Room Air 12/29/24 10:09 12/29/24 07:34 Room Air Laboratory Results - Personally interpreted, creatinine at baseline, no evidence of endorgan damage, UA suggestive of urinary tract infection given her symptoms, Medications Administered Acetaminophen (Acetaminophen 325 Mg Tab) 650 mg PO Q4H PRN PRN Reason: Pain or Fever Stop: 01/27/25 15:40 Last Admin: 12/29/24 12:28 Dose: 650 mg Documented By: Admin: 12/28/24 16:02 Dose: 650 mg Documented By: JANINE Amlodipine Besylate (Amlodipine Besylate 5 Mg Tab) [address] [facility] Stop: 01/28/25 08:59 Last Admin: 12/29/24 08:32 Dose: 10 mg Documented By: NARENDRA Aspirin (Aspirin 81 Mg Ectab) [address] [facility] Stop: 01/28/25 08:59 Last Admin: 12/29/24 08:32 Dose: 81 mg Documented By: NARENDRA Atorvastatin Calcium (Atorvastatin 20 Mg Tab) 20 mg PO [facility] Stop: 01/27/25 20:59 Last Admin: 12/28/24 20:32 Dose: 20 mg Documented By: JENNI Bimatoprost (Bimatoprost 0.01% Op Soln 2.5 Ml Btl) 1 drops OP HS [facility] Stop: 01/27/25 20:59 Last Admin: 12/28/24 20:33 Dose: 1 drops Documented By: JENNI Chlorthalidone (Chlorthalidone 25 Mg Tab) [address] [facility] Stop: 01/28/25 08:59 Last Admin: 12/29/24 08:51 Dose: 50 mg Documented By: NARENDRA Cyanocobalamin (Cyanocobalamin (B-12) 500 Mcg Tablet) 1,000 mcg PO DAILY [facility] Stop: 01/28/25 08:59 Last Admin: 12/29/24 08:31 Dose: 1,000 mcg Documented By: NARENDRA Fluticasone/Vilanterol (Fluticasone/Vilanterol 200/25mcg 14 Puffs/Inhaler) 1 puffs INH DAILY [facility] Stop: 01/28/25 08:59 Last Admin: 12/29/24 08:32 Dose: 1 puffs Documented By: NARENDRA Heparin Sodium (Porcine) (Heparin Sod 5,000 Unit/0.5 Ml Vial) 5,000 units SQ Q12 ALYSA Stop: 01/27/25 20:59 Last Admin: 12/29/24 08:43 Dose: 5,000 units Documented By: Admin: 12/28/24 20:31 Dose: 5,000 units Documented By: JENNI Hydralazine HCl (Hydralazine Tab 50 Mg Tab) 50 mg PO TID ALYSA Stop: 01/28/25 08:59 Last Admin: 12/29/24 14:43 Dose: 50 mg Documented By: Admin: 12/29/24 08:51 Dose: 50 mg Documented By: NARENDRA Ceftriaxone Sodium (Rocephin) 2,000 mg in 50 mls @ 100 mls/hr IV Q24H ALYSA Stop: 01/03/25 12:59 Last Infusion: 12/29/24 12:27 Dose: Infused Documented By: Admin: 12/29/24 11:55 Dose: 100 mls/hr Documented By: NARENDRA Insulin Aspart (Insulin Aspart Per Unit Charge) 0 units SC ACHS ALYSA Stop: 01/27/25 16:29 Last Admin: 12/29/24 13:27 Dose: 1 units Documented By: NARENDRA Co-signed By: JEFF Admin: 12/29/24 09:04 Dose: 1 units Documented By: NARENDRA Co-signed By: DINA Admin: 12/28/24 20:33 Dose: Not Given Documented By: Admin: 12/28/24 18:19 Dose: Not Given Documented By: JANINE Lactobacillus Acidophilus (Advanced Probiotic 625 Mg Capsule) 1,250 mg PO DAILY ALYSA Stop: 01/28/25 08:59 Last Admin: 12/29/24 08:32 Dose: 1,250 mg Documented By: NARENDRA Levothyroxine Sodium (Levothyroxine Sodium 100 Mcg Tablet) 100 mcg PO DAILYBB [facility] Stop: 01/28/25 06:29 Last Admin: 12/29/24 06:17 Dose: 100 mcg Documented By: JENNI Losartan Potassium (Losartan Potassium 50 Mg Tab) 100 mg PO DAILY ALSYA Stop: 01/28/25 08:59 Last Admin: 12/29/24 08:33 Dose: 100 mg Documented By: NARENDRA Magnesium Oxide (Magnesium Oxide 400 Mg Tab) 400 mg PO DAILY ALYSA Stop: 01/28/25 08:59 Last Admin: 12/29/24 08:33 Dose: 400 mg Documented By: NARENDRA Metoprolol Tartrate (Metoprolol Tartrate 25 Mg Tab) 25 mg PO BID ALYSA Stop: 01/27/25 20:59 Last Admin: 12/29/24 08:34 Dose: Not Given Documented By: Admin: 12/28/24 20:33 Dose: 25 mg Documented By: JENNI Montelukast Sodium (Montelukast Sodium 10 Mg Tablet) 10 mg PO HS ALYSA Stop: 01/27/25 20:59 Last Admin: 12/28/24 20:34 Dose: 10 mg Documented By: JENNI Multivitamins/Minerals (Cerovite Adv Formula Tab) 1 tab PO DAILY ALYSA Stop: 01/28/25 08:59 Last Admin: 12/29/24 08:34 Dose: 1 tab Documented By: NARENDRA Oxybutynin Chloride (Oxybutynin Chloride Xl 5 Mg Tabcr) 10 mg PO QAM ALYSA Stop: 01/28/25 08:59 Last Admin: 12/29/24 08:34 Dose: 10 mg Documented By: NARENDRA Pantoprazole Sodium (Pantoprazole 40 Mg Tab) 40 mg PO DAILY ALYSA Stop: 01/28/25 08:59 Last Admin: 12/29/24 08:33 Dose: 40 mg Documented By: NARENDRA Potassium Chloride (Potassium Chloride Crtab 20 Meq Tabcr) 20 meq PO DAILY ALYSA Stop: 01/28/25 08:59 Last Admin: 12/29/24 08:43 Dose: 20 meq Documented By: NARENDRA Vitamin D (Cholecalciferol 25 Mcg (1000 Units) Tab) 25 mcg PO DAILY ALYSA Stop: 01/28/25 08:59 Last Admin: 12/29/24 08:31 Dose: 25 mcg Documented By: NARENDRA
--- OUTSIDE RECORDS SUMMARY | 2024-12-29 20:06 | External Medical Summary | Summary of Care ---
Author Name Unknown Organization [facility] Address [address] [place] [address] Phone [phone] Care Team Providers Care Courtesy Driver Name Role Phone Lilo Ba MD Primary Care Pr ovider Reason for Visit * Reason Onset Date Comments Home Health 12/25/2024 Encounter Details Date Type Department Care Team (Late st Contact Info) Description 12/25/2024 Telephone Family Medicine [address] [phone] Lilo Ba MD [address] [place] [address] [place] [phone] Home Health Allergies Active Allergy Reactions Criticality Noted Date Comments Brassica Oleracea 05/17/2020 Other Reaction(s): Gas Crab (Diagnostic) 04/05/2018 Crab Extract 05/17/2020 Other Reaction(s): diarrhea Food (See Comments) 07/24/2015 Broccoli, beans, cauliflower - cause gas Grapefruit, oranges - cause bronchitis - positive skin test Grapefruit Extract 05/17/2020 Other Reaction(s): BRONCHITIS [place] Oil 05/17/2020 Other Reaction(s): BRONCHITIS Paroxetine Hydrochloride 04/03/2009 Penicillins 04/03/2009 Blisters on hands Peanut-Containing Drug Products Abdominal pain Medium 07/24/2015 Gas, bloating Phaseolus 01/10/2024 Other Reaction(s): Bloating, Gas also with green beans documented as of this encounter (statuses as of 12/29/2024) Medications triamcinolone acetonide (ARISTOCORT) 0.1 % creamIndications:I [...] DM type 2, 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% ([facility]) Test blood sugar once daily as directed; [...] Oral Tablet (Lipitor)Indicatio ns:Atherosclerosis of [place] coronary artery of [place] heart without angina pectoris,Paroxysma l atrial fibrillation (HCC),Dyslipidemia , goal LDL below 100 take one pill by mouth at bedtime 90 Tablet 1 04/21/20 24 Active Potassium Chloride Krystal ER 20 MEQ Oral Tablet Extended Release (Klor-Con M20) Take 1 Tablet by mouth in the morning. 90 Tablet 1 04/21/20 24 Active Nystatin 095207 UNIT/GM External CreamIndications:D ermatitis Apply topically to [...] less than 140/90,Atheroscler osis of [place] coronary artery of [place] heart without angina pectoris,Paroxysma l atrial fibrillation (HCC) Take 1 Tablet by mouth in the morning and 1 Tablet before bedtime. 180 Tablet 1 12/09/19 25 Active documented as of this encounter (statuses as of 12/29/2024) Active Problems Problem Noted Date Diagnosed Date [...] Coronary artery disease invo [place]ving [place] coronary artery of [place] heart without angina pectoris Adjustment disorder with depressed mood documented as of this encounter (statuses as of 12/29/2024) Resolved Problems Problem Noted Date Diagnosed Date [...] persistent 09/23/2012 09/23/2012 Genetic Sleep Disorder [facility] Other*[id number] 09/12/2012 06/25/2016 ADVANCE DIRECTIVE INFORMATION 06/11/2011 10/02/2024 [...] as of this encounter (statuses as of 12/29/2024) Immunizations Name Administration Dates Next Due COVID-19 [...] Telephone Encounter - Lilo Ba MD - 12/29/2024 9:39 AM EST Agree with hospital eval * Telephone Encounter - Per Vee LPN - 12/28/2024 10:05 AM EST Concerns Erick, Calling from: Giuliano Report/Concerns of: BP and UTI symptoms Symptoms: [...] AM and they will take her to [facility]. Patient was complaining of UTI symptoms-urgency and frequency during HH visit today, but marilyn did not get urine sample today due to hypertension and unsafe to transfer. Please fax new orders to [facility] FYI * Telephone Encounter - Snehal Thompson OSA - 12/28/2024 10:03 AM EST Reason for patient's call: [facility] looking to speak with a nurse. Caller was transferred to lilburn at the nurse line. * Telephone Encounter - Liat Duran CMA - 12/27/2024 12:43 PM EST Faxed copy of tele encounter with Dr Flores's ordered, also called and left message at [facility] numberlisted below * Telephone Encounter - Lilo Ba MD - 12/25/2024 3:21 PM EST Ok to check a UA and culture. If BP persists and she's having any symptoms with it, recommend evaluation JUAN. If no symptoms, can monitor. * Telephone Encounter - Marisa Merrill LPN - 12/25/2024 2:06 PM EST HH Concerns ALBERTO Townsend, Calling from: [place] Report/Concerns of: BP and Urinary sx Symptoms: [...] Marilyn with any advice or orders at [phone]. Please fax new orders to [facility] [phone] * Telephone Encounter - Gabe Hester OSA - 12/25/2024 2:03 PM EST Reason for patient's call: elevated BP Caller was transferred to Marisa at the nurse line. documented in this encounter Plan of Treatment Upcoming Encounters Date Type Department Care Team (Late st Contact Info) Description 01/23/2025 1:20 PM EST Office Visit Family [address] [phone] Lilo Ba MD [address] [place] [address] [place] [phone] 02/06/2025 12:30 PM EDT Office Visit Neurology [facility] Kirsten [address] [place] [address] Lashaun Moore PA-C [address] [place] [phone] 03/12/2025 2:00 PM EDT Office Visit Family Medicine [address] [phone] Lilo Ba MD [address] [place] [address] [place] [phone] 05/18/2025 3:30 PM EDT Office Visit Cardiology, [facility] [address] [place] [address] Francheska Ponce PA-C [address] [place] [address] 12/04/2025 3:30 PM EST Office Visit Cardiology, [facility] [address] [place] [address] Chace Peacock DO [address] [place] [address] Health Maintenance Due Date Last Done Comments [...] Screening 10/18/2025 10/18/2024 CKD HGB USE SMARTSET 48649 10/27/202510/27, 10/27/2024, 09/11/2024, Additional history exists CKD PHOS USE SMARTSET 68987 10/27/202509/30, 09/16/2020, 08/29/2019 DXA Scan 05/31/2026 05/31/2019, [...] filedocumented as of this encounter Care Teams Courtesy Driver Relationship Specialty Start Date End Date Lilo Ba MD [address] [place] [address] [place] [phone] PCP - General Family Medicine 10/23/24 documented as of this encounter
[2024-12-30 06:44] LABS: Hematocrit (blood only) 37.1 % (37.0-47.0); Hemoglobin 12.4 g/dl (12.0-16.0); Mean Corpuscular Hemoglobin 30.1 pg (25.0-34.0); Mean Corpuscular Hgb Conc 33.4 g/dL (32.0-36.0); Platelet Count 239 K/uL (130-400); RDW Coefficient of Variation 14.6 % (11.5-14.5); RDW Standard Deviation 47.5 fL (36.4-46.3); Red Blood Count 4.12 M/uL (4.20-5.40); White Blood Count 6.11 K/ul (4.8-10.8)
[2024-12-30 07:01] LABS: Calcium 9.9 mg/dl (8.6-10.3); Creatinine Clr Calc Pharmacy 39.2 ml/min; Magnesium 1.6 mg/dl (1.7-2.4); Potassium 3.6 mmol/L (3.5-5.1)
[2024-12-30 07:53] VITALS: RESP 17; TEMP 98.1
[2024-12-30] MEDS: MAGNESIUM SULFATE / D5W 1 GM/100 ML BAG IV SCH (09:25)
--- NOTE | 2024-12-30 13:43 | Discharge Summary ---
Discharge Summary Date of Service December 30, 2024 Principal Dx & Hospital Course #1 = Principal Diagnosis (1) UTI (urinary tract infection): (2) Hypertensive urgency: Plan Patient is a 84-year-old female with past medical history of type 2 diabetes mellitus, hypothyroidism, hyperlipidemia, DEMARIO, mild persistent asthma, paroxysmal A-fib, CAD, hypertension, GERD, stage III CKD, degenerative disks disease, subdural hematoma, mood disorder is brought to the hospital for concern of UTI and Elevated blood pressure. #Acute UTI Patient presents with increased urinary urgency and burning micturition for last 3 days Urinalysis suggestive of infection Past urine cultures revealed E. coli Plan: -cipro at discharge #Hypertensive urgency -Patient presents with elevated systolic blood pressure. Past reading suggests similar elevation in systolic blood pressure. -Was on amlodipine 10 mg in the past which has been not been refilled. -Also on sodium chloride tablets. Plan: -continue amldopine, losartan -continue chlorthalidone -continuehydralazine to 50 tid -BP much better throughout day, worst in morning History of atrial fibrillationnanticoagulation discontinued last admission after discussion with cardiology. Continue on metoprolol/aspirin. Found to have possible SDH in July 2024; repeat scan in September showed no changes. History of hypothyroidismcontinue levothyroxine History of type 2 diabetes mellitus; well-controlled; sliding scale insulin Hyperlipidemiacontinue annual Lipitor History of asthma; continue home inhaler/montelukast Notes For Next Care Provider 84-year-old female with past medical history of UTIs, CAD, diabetes, paroxysmal atrial fibrillation, hypothyroidism who presented from home for high blood pressure and slight confusion. in the ED, noted to have UTI and hypertensive urgency, admitted to medicine for further workup. On medicine, patient started on chlorthalidone and hydralazine was uptitrated with appropriate improvements in blood pressure. No evidence of endorgan damage in the ED or upon admission. UTI treated with ceftriaxone. Patient is medically stable for discharge at this time. Medication Changes From Visit -cipro, chlorthalidone, increased hydralazine Admission HPI Per Admitting Provider History obtained from interview with the patient and chart review Past medical history of type 2 diabetes mellitus, hypothyroidism, hyperlipidemia, DEMARIO, mild persistent asthma, paroxysmal A-fib, CAD, hypertension, GERD, stage III CKD, degenerative disks disease, subdural hematoma, mood disorder Patient presented to the hospital with complaints of urinary urgency and burning micturition for last 3 days. She also reports that her home nurse reported high blood pressure and was concerned for her; subsequently EMS was called and patient was sent to the hospital. She denies any headache, dizziness, visual changes, weakness/numbness of any body part, chest pain, shortness of breath or abdominal pain. Chart review reveals that patient was previously prescribed amlodipine which has not been recently refilled. She is also on sodium chloride tablets for unknown reason (possibly hyponatremia). Patient was referred for admission for elevated blood pressure and UTI Discharge Exam Gen: A&O 3 NAD HEENT: NCAT, EOMI, not icteric. External ears normal. No rhinorrhea. Moist mucous membranes. Neck: Supple, full range of motion, no observable masses, No meningeal sign. Lungs: No Respiratory distress. CV: RRR, no edema. Abdomen: Soft, nondistended, No rebound tenderness. MSK: No joint swelling, no redness. Skin: No rashes, petechiae, lesions. Normal color per patient. Neuro: Normal Gait, Grossly intact. Psych: Appropriate for situation. Updated Medication List Medication Instructions Recorded Confirmed Type atorvastatin 20 mg tablet 20 mg PO HS 08/22/19 12/28/24 History montelukast 10 mg tablet 10 mg PO HS 08/22/19 12/28/24 History bimatoprost 0.01 % eye drops 1 drp OPB HS 05/08/22 12/28/24 History (Sumeet) fluticasone 250 mcg-salmeterol 50 1 inh inhalation BID 10/23/23 12/28/24 History mcg/dose blistr powdr for inhalation (Kerwinxela Inhub) oxybutynin chloride 10 mg 10 mg PO QAM 10/23/23 12/28/24 History tablet,extended release 24 hr levothyroxine 100 mcg tablet 100 mcg PO DAILYBB 12/02/23 12/28/24 History losartan 100 mg tablet 100 mg PO DAILY 02/08/24 12/28/24 History metoprolol tartrate 25 mg tablet 25 mg PO BID 02/08/24 12/28/24 History guyeffydjrlc-lrootvrv-hmezkl tablet 1 tab PO DAILY 02/08/24 12/28/24 History blood sugar diagnostic (OneTouch 08/04/24 12/28/24 History Verio test strips) cholecalciferol (vitamin D3) 25 25 mcg PO DAILY 08/04/24 12/28/24 History mcg (1,000 unit) capsule (Vitamin D3) coenzyme Q10 100 mg capsule 100 mg PO DAILY 08/04/24 12/28/24 History (CoQ-10) cyanocobalamin (vitamin B-12) 1,000 mcg PO DAILY 08/04/24 12/28/24 History 1,000 mcg tablet (Vitamin B-12) lancets 30 gauge (OneTouch Delica 08/04/24 12/28/24 History Plus Lancet) magnesium oxide 400 mg (241.3 mg 400 mg PO DAILY 08/04/24 12/28/24 History magnesium) tablet potassium chloride 20 mEq 20 meq PO DAILY 08/04/24 12/28/24 History tablet,extended release(part/cryst) (Klor-Con M) aspirin 81 mg tablet,delayed 81 mg PO QAM #30 tabs 10/16/24 12/28/24 Rx release polyethylene glycol 3350 17 gram 17 g PO DAILY PRN laxative effect 10/16/24 12/28/24 Rx oral powder packet (Miralax) #30 ea pantoprazole 40 mg tablet,delayed 40 mg PO DAILY 12/28/24 12/28/24 History release sodium chloride 1,000 mg soluble 1,000 mg PO BID 12/28/24 12/28/24 History tablet amlodipine 5 mg tablet (Norvasc) 10 mg (2 x 5 mg) PO QAM #60 tabs 12/30/24 Rx chlorthalidone 25 mg tablet 50 mg (2 x 25 mg) PO QAM #60 tabs 12/30/24 Rx ciprofloxacin HCl 500 mg tablet 500 mg PO BID 5 days #10 tabs 12/30/24 Rx (Cipro) hydralazine 50 mg tablet 50 mg PO TID #90 tabs 12/30/24 Rx Hospital Stay Data Consultations 12/28/24 12:13 ED Decision to Admit Stat Diagnostic Imagining Performed 12/28/24 11:07 CT head/brain wo con Stat Pending Results Patient Have Any Pending Studies at Discharge: No Discharge Instructions Given to Patient (Per Discharging Provider) 1. Please take medications as prescribed. It can take up to 2 weeks for the new meds to fully work. 2. Finish course of abx for UTI. Total Time Total Time Spent Total Time Spent (In Minutes): I spent a total of 35 minutes in direct patient care, including [id number] time with the patient and/or family, reviewing medical records, ordering and reviewing diagnostic tests, and coordinating care with other healthcare providers. This time includes: history taking, physical examination, medical decision making, counseling, ECG interpretation, imaging interpretation, lab interpretation, orders, and education, excluding time spent in the performance of separately billed services.
[2024-12-30 14:30] VITALS: BP 110/52; PULSE 66; O2SAT 96
== END 2024-12-30 14:08 | disposition home or self-care (01) ==
LOC: 2N 10:37 → ED 10:37 → SUATTDRO 13:00 → 2N 14:28

== ENCOUNTER 2025-04-01 17:29 | Inpatient (IN) ==
--- OUTSIDE RECORDS SUMMARY | 2025-04-01 17:34 | External Medical Summary | Summary of Care ---
Author Name Unknown Organization [facility] Address [address] [facility] [place] [address] Phone [phone] Care Team Providers Care Farmworker Cranberry Name Role Phone Nayla Ba MD Primary Care Pr ovider Reason for Visit * Reason Comments eRx-Medication Refill Encounter Details Date Type Department Care Team (Late st Contact Info) Description 03/10/2025 Refill Family Medicine [address] [phone] Rolanda Villalpando PA-C [address] [place] [address] [place] [id number] Allergies Active Allergy Reactions Criticality Noted Date Comments Brassica Oleracea 05/17/2020 Other Reaction(s): Gas Crab (Diagnostic) 04/05/2018 Crab Extract 05/17/2020 Other Reaction(s): diarrhea Food (See Comments) 07/24/2015 Broccoli, beans, cauliflower - cause gas Grapefruit, oranges - cause bronchitis - positive skin test Grapefruit Extract 05/17/2020 Other Reaction(s): BRONCHITIS [place] Oil 05/17/2020 Other Reaction(s): BRONCHITIS Paroxetine Hydrochloride 04/03/2009 Penicillins 04/03/2009 Blisters on hands Peanut-Containing Drug Products Abdominal pain Medium 07/24/2015 Gas, bloating Phaseolus 01/10/2024 Other Reaction(s): Bloating, Gas also with green beans documented as of this encounter (statuses as of 03/12/2025) Medications Albuterol Sulfate HFA 108 (90 Base) MCG/ACT [...] each nostril every morning. 48 mL 3 Active OneTouch Delica Lancets 30GIndications:DM type 2, 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% ([facility]) TEST BLOOD SUGAR ONCE DAILY DIRECTED DX E11.9 100 Each 3 Active OneTouch Verio In Vitro Strip (Glucose Blood)Indications :DM type 2, 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% ([facility]) Test blood sugar once daily as directed; [...] by mouth in the morning. 90 Tablet Active CoQ-10 100 MG Oral Capsule Take 1 Capsule by mouth in the morning. 90 Capsule Active Aspirin 81 MG Oral Tablet Delayed Release (Ecotrin Low Strength) Take 1 Tablet by mouth in the morning. 100 Tablet 3 05/24/2 024 Active Montelukast Sodium 10 MG Oral Tablet (Singulair)Indica tions:Other seasonal allergic rhinitis Take 1 Tablet by mouth at bedtime. 90 Tablet 1 024 Active Atorvastatin Calcium 20 MG Oral Tablet (Lipitor)Indicati ons:Atheroscleros is of standing rock coronary artery of standing rock heart without angina pectoris,Paroxysm al atrial fibrillation (HCC),Dyslipidemi a, goal LDL below 100 take one pill by mouth at bedtime 90 Tablet 1 024 Active Potassium Chloride Krystal ER 20 MEQ Oral Tablet Extended Release (Klor-Con M20) Take 1 Tablet by mouth in the morning. 90 Tablet 1 024 Active Nystatin 681098 UNIT/GM External CreamIndications: Dermatitis Apply topically to affected area 2 times a day. To affacted area for two weeks. 60 g 2 024 Active Levothyroxine Sodium 100 MCG Oral Tablet (Levoxyl)Indicati ons:Acquired hypothyroidism TAKE 1 TABLET BY MOUTH EVERY DAY IN THE MORNING 90 Tablet 3 024 Active oxyBUTYnin Chloride ER 10 MG Oral Tablet Extended Release 24 Hour (Ditropan XL) Take 1 Tablet by mouth in the morning. 90 Tablet 1 024 Active Losartan Potassium [...] FLUIDS ORALLY DAILY NEEDED FOR LAXATIVE EFFECT 11/18/2 024 Active Metoprolol Tartrate 25 MG Oral Tablet (Lopressor)Indica tions:Essential hypertension with goal blood pressure less than 140/90,Atheroscle rosis of standing [place] coronary artery of standing [place] heart without angina pectoris,Paroxysm al atrial fibrillation (HCC) Take 1 Tablet by mouth in the morning and 1 Tablet before bedtime. 180 Tablet 1 025 Active Chlorthalidone 25 MG Oral Tablet (Hygroton) Take 2 Tablets by mouth in the morning. 90 Tablet 2 025 Active hydrALAZINE HCl 50 MG Oral Tablet (Apresoline) Take 1 Tablet by mouth in the morning and 1 Tablet at noon and 1 Tablet before bedtime. 270 Tablet 3 025 Active amLODIPine Besylate 5 MG Oral Tablet (Norvasc)Indicati ons: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) Take 2 Tablets by mouth in the morning. 180 Tablet 1 025 Active Sodium Chloride 1 GM Oral Tablet TAKE 1 TABLET BY MOUTH IN THE MORNING AND BEFORE BEDTIME 180 Tablet 1 025 Active Sodium Chloride 1 GM Oral Tablet Take 1 Tablet by mouth in the morning and 1 Tablet before bedtime. 180 Tablet 1 024 2024 Discontinued documented as of this encounter (statuses as of 03/12/2025) Active Problems Problem Noted Date Diagnosed Date Chronic HFrEF (heart failure with reduced ejection fraction) 01/19/2025 Benign hypertension with CKD (chronic kidney disease) stage III 01/09/2025 History of placement of stent in LAD coronary ar jaswant 11/13/2024 BMI 31.0-31.9,adult 11/17/2023 Overview (11/17/2023): [address] [...] 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 Coronary artery disease invo lving standing rock coronary artery of standing rock heart without angina pectoris Adjustment disorder with depressed mood documented as of this encounter (statuses as of 03/12/2025) Resolved Problems Problem Noted Date Diagnosed Date Resolved Date SDH (subdural hematoma) 10/25/202412/30 Benign hypertension with CKD (chronic kidney disease) [...] persistent 09/23/2012 09/23/2012 Genetic Sleep Disorder Resea [facility] Other*[id number] 09/12/2012 06/25/2016 ADVANCE DIRECTIVE INFORMATION 06/11/2011 10/02/2024 [...] as of this encounter (statuses as of 03/12/2025) Immunizations Name Administration Dates Next Due COVID-19 [...] ages 0-17 years) Not on file 10/18/2024 Food Insecurity Answer Date Recorded Within the past 12 months, y ou worried that your food would run out before you got the money to buy more. Never true 10/18/20 24 Within the past 12 months, t he food you bought just didn't last and you didn't have money to get more. Never true 10/18/2024 Do you need food for this week? No 10/18/2024 Comments No Sex and Gender Information Value Date Recorded Sex Assigned at Not on file Legal Sex Female 6:26 AM EST Gender Identity Not on file Sexual Orientation Not on file documented as of this encounter Miscellaneous Notes * Telephone Encounter - Divina JENNI Gonzalez - 03/12/2025 9:26 AM EDTSigned Prescriptions: Disp Refills Sodium Chloride 1 GM Oral Tablet 180 Ta*1 Sig: TAKE 1 TABLET BY MOUTH IN THE MORNING AND BEFORE BEDTIMEAuthorizing Provider: NAYLA BA * Telephone Encounter - Lisa Murcia CMA - 03/12/2025 9:25 AM EDT Signed Prescriptions: Disp Refills Sodium Chloride 1 GM Oral Tablet 180 Ta*1 Sig: TAKE 1 TABLET BY MOUTH IN THE MORNING AND BEFORE BEDTIME Authorizing Provider: NAYLA BA Last Visit: 01/19/2025 (in office), Visit date not found (telemedicine) Next Visit: 03/12/2025 Last date the medication was ordered: 03/12/2025 Patient Active Problem List Diagnosis Acquired hypothyroidism Gastroesophageal reflux disease with esophagitis 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 Coronary artery disease involving standing rock coronary artery of standing rock heart without angina pectoris Primary hypertension Sleep apnea, obstructive POAG (primary open-angle glaucoma) Adjustment disorder with depressed mood DDD (degenerative disc disease), cervical CURTIS (stress urinary incontinence, female) Paroxysmal atrial fibrillation ([facility]) Dyslipidemia, goal LDL below 70 Mild persistent asthma without complication Rhinitis, nonallergic DM type 2, 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% ([facility]) BMI 31.0-31.9,adult Type 2 diabetes mellitus with other diabetic ophthalmic complication ([facility]) Benign hypertension with CKD (chronic kidney disease), stage II Central stenosis of spinal canal Stage 3 chronic kidney disease ([facility]) History of placement of stent in LAD coronary artery Benign hypertension with CKD (chronic kidney disease) stage III ([facility]) Chronic HFrEF (heart failure with reduced ejection fraction) ([facility]) Labs: Lab Results Component Value Date/Time CREATININE - [facility] 0.8 01/09/2025 02:31 PM CREATININE - [facility] 0.8 09/16/2020 01:56 PM CREATININE, RANDOM URINE - [facility] 64 11/17/2023 03:02 PM CREATININE, RANDOM URINE - [facility] 105 09/16/2020 02:12 PM Lab Results Component Value Date/Time POTASSIUM - [facility] 4.8 01/09/2025 02:31 PM POTASSIUM - [facility] 3.8 09/16/2020 01:56 [...] Results Component Value Date/Time ALT - [facility] 13 01/09/2025 02:31 PM ALT - [facility] 20 04/27/2019 03:30 PM ALT-OUTSIDE LAB 18 09/21/2016 12:00 AM Hemoglobin AIC Results: Lab Results Component Value Date/Time HEMOGLOBIN A1C - [facility] 5.8 (H) 01/09/2025 02:31 PM HEMOGLOBIN A1C - [facility] 5.7 (H) 09/11/2024 02:15 PM HEMOGLOBIN A1C - [facility] 6.3 (H) 11/17/2023 03:02 PM HEMOGLOBIN A1C - [facility] 6.3 (H) 06/10/2020 03:05 PM HEMOGLOBIN A1C - [facility] 6.0 (H) 08/29/2019 11:47 AM HEMOGLOBIN A1C - [facility] 7.4 (H) 01/23/2019 02:34 PM * Telephone Encounter - Nayla Ba MD - 03/12/2025 7:38 AM EDTSigned Prescriptions: Disp Refills Sodium Chloride 1 GM Oral Tablet 180 Ta*1 Sig: TAKE 1 TABLET BY MOUTH IN THE MORNING AND BEFORE BEDTIME Authorizing Provider: NAYLA BA * Telephone Encounter - Virgie Serrano [facility] - 03/11/2025 10:27 PM EDT Pending Prescriptions: Disp Refills Sodium Chloride 1 GM Oral Tablet [Pharmacy*180 Ta*1 Sig: TAKE 1 TABLET BY MOUTH IN THE MORNING AND BEFORE BEDTIME * Telephone Encounter - Baldomero Kimble - 03/10/2025 7:20 PM EDTPending Prescriptions: Disp Refills Sodium Chloride 1 GM Oral Tablet [Pharmacy*180 Ta*1 Sig: TAKE 1 TABLET BY MOUTH IN THE MORNING AND BEFORE BEDTIME * Telephone Encounter - Antonia Barfield CPhT - 03/10/2025 2:16 PM EDT Did you pend patient's preferred pharmacy and medication before forwarding?yes Pharmacy: [id number] [id number] [facility] Pending Prescriptions: Disp Refills Sodium Chloride 1 GM Oral Tablet [Pharmac*180 Ta*1 Sig: TAKE 1 TABLET BY MOUTH IN THE MORNING AND BEFORE BEDTIME Last Visit: 01/19/2025 (in office), Visit date not found (telemedicine) Next Visit: 03/12/2025 If no future appointments scheduled, and last appointment is greater than a year ago, please schedule patient for a follow-up appointment Last date the medication was ordered: 09/29/2024 Is this request for a controlled substance?No Urine Drug Screen:No results found. However, due to the size of the patient record, not all encounters were searched. Please check Results Review for a complete set of results. Patient Phone Numbers Labs: Lab Results Component Value Date/Time CREAT 0.8 01/09/2025 02:31 PM CREAT 0.8 09/16/2020 01:56 PM POTASSIUM 4.8 01/09/2025 02:31 PM POTASSIUM 3.8 09/16/2020 01:56 PM TSH 0.34 09/11/2024 02:15 PM TSH 0.51 04/29/2020 10:16 AM LDL 60 09/11/2024 02:15 PM LDL 67 09/16/2020 02:12 PM LDL UNINTERPRETABLE RESULT 01/23/2019 02:34 PM LDLCALC 46 05/07/2018 10:11 AM ALT 13 01/09/2025 02:31 PM ALT 20 04/27/2019 03:30 PM HGBA1C 5.8 (H) 01/09/2025 02:31 PM HGBA1C 6.3 (H) 06/10/2020 03:05 PM documented in this encounter Plan of Treatment Upcoming Encounters Date Type Department Care Team (Late st Contact Info) Description 03/12/2025 2:00 PM EDT Office Visit Family Medicine [address] [place] [phone] Nayla Ba MD [address] [place] [address] [place] [phone] 05/18/2025 3:30 PM EDT Office Visit Cardiology, [facility] [address] [place] [phone] Francheska Ponce PA-C [address] [place] [phone] 12/04/2025 3:30 PM EST Office Visit Cardiology, [facility] [address] [place] [phone] Chace Peacock, [address] [place] [phone] Health Maintenance Due Date Last Done Comments Zoster Vaccines (1 of 2) 1990 Adult Wellness Visit 07/24/2016 07/24/2015 Albumin/Creatinine Ratio 11/17/2024 023, 11/17/2022, 11/13/2021, Additional history exists COVID-19 Vaccine ( season) 2025 09/11/2024, 11/17/2023, 12/02/2021, Additional history exists HbA1c 07/09/2025 01/09/2025, 08/29, 11/17/2023, Additional history exists TSH 09/11/2025 09/11/2024, 11/29, 04/28/2023, Additional history exists Depression Screening 10/18/2025 10/18/2024 CKD HGB USE SMARTSET 28599 10/27/202510/27, 10/27/2024, 09/11/2024, Additional history exists CKD PHOS USE SMARTSET 59485 10/27/2025 11/07/2024, 09/16/2020, 08/29/2019 Diabetic Foot Exam 01/19/2026 01/19/2025, 0 04/28/2023, 03/12/2022, Additional history exists Diabetic Eye Exam 02/12/2026 02/12/2025, , 09/03/2023, Additional history exists DXA Scan 05/31/2026 05/31/2019, 07/15/2012 DTap/Tdap Vaccines (5 - Td or Tdap) 03/23/2033 03/23/2023, 09/19/2017, 03/22/2017, Additional history exists Pneumococcal Vaccine: 50+ Years Completed 04/23/2015, 11/29/2005 Influenza Vaccine (FLU shot) Completed , 10/29/2023, 09/17/2022, Additional history exists HPV (Gardasil) Vaccine Aged Out No lo nger eligible based on patient's age to complete this topic Hepatitis B Vaccine Aged Out No longe r eligible based on patient's age to complete this topic MENINGOCOCCAL (MENACTRA/MENVEO) Aged Out No longer eligible based on patient's age to complete this topic Meningitis B Vaccine (Bexsero/Trumemba) Aged Out No longer eligible based on patient's age to complete this topic documented as of this encounter Medical Devices Not on filedocumented as of this encounter Care Teams Farmworker Cranberry Relationship Specialty Start Date End Date Nayla Ba MD [address] [place] [address] [place] [phone] PCP - General Family Medicine 10/23/24 documented as of this encounter
--- OUTSIDE RECORDS SUMMARY | 2025-04-01 17:34 | External Medical Summary | Summary of Care ---
Author Name Unknown Organization [facility] Address [address] [place] [address] Phone [phone] Care Team Providers Care Lease Buyer Name Role Phone Nayla Ba MD Primary Care Pr ovider Reason for Visit * Reason Onset Date Comments Medication Refill 2025 Encounter Details Date Type Department Care Team (Late st Contact Info) Description 2025 Refill Family Medicine [address] [phone] Nayla Ba MD [address] [place] [address] [place] [phone] Benign hypertension with CKD (chronic kidney disease) stage III ([facility])* Allergies Active Allergy Reactions Criticality Noted Date Comments Brassica Oleracea 05/17/2020 Other Reaction(s): Gas Crab (Diagnostic) 04/05/2018 Crab Extract 05/17/2020 Other Reaction(s): diarrhea Food (See Comments) 07/24/2015 Broccoli, beans, cauliflower - cause gas Grapefruit, oranges - cause bronchitis - positive skin test Grapefruit Extract 05/17/2020 Other Reaction(s): BRONCHITIS [place] Oil 05/17/2020 Other Reaction(s): BRONCHITIS Paroxetine Hydrochloride 04/03/2009 Penicillins 04/03/2009 Blisters on hands Peanut-Containing Drug Products Abdominal pain Medium 07/24/2015 Gas, bloating Phaseolus 01/10/2024 Other Reaction(s): Bloating, Gas also with green beans documented as of this encounter (statuses as of 02/21/2025) Medications Albuterol Sulfate HFA 108 (90 Base) [...] 2, 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% ([facility]) TEST BLOOD SUGAR ONCE DAILY DIRECTED DX E11.9 100 Each 3 01/03/20 24 Active OneTouch Verio In Vitro Strip (Glucose Blood)Indications: DM type 2, 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% ([facility]) Test blood sugar once daily [...] mouth in the morning. 90 Capsule 04/21/20 24 Active Aspirin 81 MG Oral Tablet Delayed Release (Ecotrin Low Strength) Take 1 Tablet by mouth in the morning. 100 Tablet 3 04/21/20 24 Active Montelukast Sodium 10 MG Oral Tablet (Singulair)Indicat ions:Other seasonal allergic rhinitis Take 1 Tablet by mouth at bedtime. 90 Tablet 1 04/21/20 24 Active Atorvastatin Calcium 20 MG Oral Tablet (Lipitor)Indicatio ns:Atherosclerosis of rosebud coronary artery of rosebud heart without angina pectoris,Paroxysma l atrial fibrillation (HCC),Dyslipidemia , goal LDL below 100 take one pill by mouth at bedtime 90 Tablet 1 04/21/20 24 Active Potassium Chloride Krystal ER 20 MEQ Oral Tablet Extended Release (Klor-Con M20) Take 1 Tablet by mouth in the morning. 90 Tablet 1 04/21/20 24 Active Nystatin 435566 UNIT/GM External CreamIndications:D ermatitis Apply topically to affected area 2 times a day. To affacted area for two weeks. 60 g 2 07/12/20 24 Active Levothyroxine Sodium 100 MCG Oral [...] blood pressure less than 140/90,Atheroscler osis of rosebud coronary artery of rosebud heart without angina pectoris,Paroxysma l atrial fibrillation (HCC) Take 1 Tablet by mouth in the morning and 1 Tablet before bedtime. 180 Tablet 1 12/09/19 25 Active Chlorthalidone 25 MG Oral Tablet (Hygroton) Take 2 Tablets by mouth in the morning. 90 Tablet 2 01/09/20 25 Active hydrALAZINE HCl 50 MG Oral Tablet (Apresoline) Take 1 Tablet by mouth in the morning and 1 Tablet at noon and 1 Tablet before bedtime. 270 Tablet 3 01/09/20 25 Active amLODIPine Besylate 5 MG Oral Tablet (Norvasc)Indicatio ns: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) Take 2 Tablets by mouth in the morning. 180 Tablet 1 02/21/20 25 Active amLODIPine Besylate 5 MG Oral Tablet (Norvasc) Take 2 Tablets by mouth in the morning. 12/30/19 25 025 Discontin ued(Refil l) documented as of this encounter (statuses as of 02/21/2025) Active Problems Problem Noted Date Diagnosed Date [...] 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 Coronary artery disease invo lving rosebud coronary artery of rosebud heart without angina pectoris Adjustment disorder with depressed mood documented as of this encounter (statuses as of 02/21/2025) Resolved Problems Problem Noted Date Diagnosed Date [...] 09/23/2012 Genetic Sleep Disorder Resea [facility] Other*[id number] 09/12/2012 06/25/2016 ADVANCE DIRECTIVE INFORMATION 06/11/2011 10/02/2024 [...] as of this encounter (statuses as of 02/21/2025) Immunizations Name Administration Dates Next Due COVID-19 [...] Telephone Encounter - Nayla Ba MD - 2025 3:47 PM EDTSigned Prescriptions: Disp Refills amLODIPine Besylate 5 MG Oral Tablet (Norv*180 Ta*1 Sig: Take 2 Tablets by mouth in the morning. Authorizing Provider: NAYLA BA * Telephone Encounter - Emma Wright PHARM Tech - 2025 2:57 PM EDT Received after hours vm for refill on amlodipine 10 mg to be sent to [facility] [id number] medication currently listed as historical in the chart for the 5 mg tabs. Please review and approve appropriate dose. Thank You, Emma Wright [facility] 2025, 2:58 PM documented in this encounter Plan of Treatment Upcoming Encounters Date Type Department Care Team (Late st Contact Info) Description 03/12/2025 2:00 PM EDT Office Visit Family Medicine [address] [place] [phone] Nayla Ba MD [address] [place] [address] [place] [phone] 05/18/2025 3:30 PM EDT Office Visit Cardiology, [facility] [address] [place] [phone] Francheska Ponce PA-C [address] [place] [address] 12/04/2025 3:30 PM EST Office Visit Cardiology, [facility] [address] [place] [phone] Chace Peacock, [address] [place] [phone] Health Maintenance Due Date Last Done Comments Zoster Vaccines (1 of 2) 1990 Adult Wellness Visit 07/24/2016 07/24/2015 Albumin/Creatinine Ratio 11/17/2024 023, 11/17/2022, 11/13/2021, Additional history exists COVID-19 Vaccine ( season) 2025 09/11/2024, 11/17/2023, 12/02/2021, Additional history exists HbA1c 07/09/2025 01/09/2025, 08/29, 11/17/2023, Additional history exists TSH 09/11/2025 09/11/2024, 11/29, 04/28/2023, Additional history exists Depression Screening 10/18/2025 10/18/2024 CKD HGB USE SMARTSET 40633 10/27/202510/27, 10/27/2024, 09/11/2024, Additional history exists CKD PHOS USE SMARTSET 73084 10/27/202509/30, 09/16/2020, 08/29/2019 Diabetic Foot Exam 01/19/2026 01/19/2025, [...] Diagnosis 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)- Primary Benign hypertensive kidney disease with chronic kidney disease stage I through stage IV, or unspecified documented in this encounter Care Teams Lease Buyer Relationship Specialty Start Date End Date Nayla Ba MD [address] [place] [address] [place] [phone] PCP - General Family Medicine 10/23/24 documented as of this encounter
--- OUTSIDE RECORDS SUMMARY | 2025-04-01 17:34 | External Medical Summary | Summary of Care ---
Author Name Unknown Organization [facility] Address [address] [place] [facility] [address] Phone [phone] Care Team Providers Care Emergency Medcl Emt Name Role Phone Nayla Ba MD Primary Care Pr ovider Reason for Visit * Reason Comments eRx-Medication Refill Encounter Details Date Type Department Care Team (Late st Contact Info) Description 03/22/2025 Refill Family Medicine [address] [phone] Rolanda Villalpando PA-C [address] [place] [address] [place] [id number] Allergies Active Allergy Reactions Criticality Noted Date Comments Brassica Oleracea 05/17/2020 Other Reaction(s): Gas Crab (Diagnostic) 04/05/2018 Crab Extract 05/17/2020 Other Reaction(s): diarrhea Food (See Comments) 07/24/2015 Broccoli, beans, cauliflower - cause gas Grapefruit, oranges - cause bronchitis - positive skin test Grapefruit Extract 05/17/2020 Other Reaction(s): BRONCHITIS [place] Oil 05/17/2020 Other Reaction(s): BRONCHITIS Paroxetine Hydrochloride 04/03/2009 Penicillins 04/03/2009 Blisters on hands Peanut-Containing Drug Products Abdominal pain Medium 07/24/2015 Gas, bloating Phaseolus 01/10/2024 Other Reaction(s): Bloating, Gas also with green beans documented as of this encounter (statuses as of 03/23/2025) Medications Albuterol Sulfate HFA 108 (90 Base) [...] 30GIndications:DM type 2, 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% ([facility]) TEST BLOOD SUGAR ONCE DAILY DIRECTED DX E11.9 100 Each 3 Active OneTouch Verio In Vitro Strip (Glucose Blood)Indications :DM type 2, 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% ([facility]) Test blood sugar once daily [...] MG Oral Tablet (Lipitor)Indicati ons:Atheroscleros is of [place] coronary artery of [place] heart without angina pectoris,Paroxysm al atrial fibrillation [...] FLUIDS ORALLY DAILY NEEDED FOR LAXATIVE EFFECT 024 Active hydrALAZINE HCl 50 MG Oral Tablet (Apresoline) Take 1 Tablet by mouth in the morning and 1 Tablet at noon and 1 Tablet before bedtime. 270 Tablet 3 025 Active amLODIPine Besylate 5 MG Oral Tablet (Norvasc)Indicati ons: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) Take 2 Tablets by mouth in the morning. 180 Tablet 3 025 Active Chlorthalidone 25 MG Oral Tablet (Hygroton) Take 1 Tablet by mouth in the morning. 90 Tablet 3 025 Active Levothyroxine Sodium 100 MCG Oral Tablet (Levoxyl)Indicati ons:Acquired hypothyroidism TAKE 1 TABLET BY MOUTH EVERY DAY IN THE MORNING 90 Tablet 3 025 Active Metoprolol Succinate ER 50 MG Oral Tablet Extended Release 24 Hour (toPROL XL)Indications:HT N, goal below 150/90,Atheroscle rosis of [place] coronary artery of [place] heart without angina pectoris,Paroxysm al atrial fibrillation (HCC) Take 1 Tablet by mouth in the morning. 30 Tablet 5 025 Active Sodium Chloride 1 GM Oral Tablet TAKE 1 TABLET BY MOUTH IN THE MORNING AND BEFORE BEDTIME 180 Tablet 3 025 Active Nystatin 294752 UNIT/GM External CreamIndications: Dermatitis Apply topically to affected area 2 times a day. To affacted area for two weeks. 60 g 2 025 Active oxyBUTYnin Chloride ER 10 MG Oral Tablet Extended Release 24 Hour (Ditropan XL) TAKE 1 TABLET BY MOUTH EVERY DAY IN THE MORNING 90 Tablet 1 025 Active oxyBUTYnin Chloride ER 10 MG Oral Tablet Extended Release 24 Hour (Ditropan XL) Take 1 Tablet by mouth in the morning. 90 Tablet 1 024 2024 Discontinued documented as of this encounter (statuses as of 03/23/2025) Active Problems Problem Noted Date Diagnosed Date Hypertension complicating diabetes 03/12/2025 HTN, goal below 150/90 03/12/2025 Chronic HFrEF (heart failure with reduced ejection [...] 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 Coronary artery disease invo lving [place] coronary artery of [place] heart without angina pectoris Adjustment disorder with depressed mood documented as of this encounter (statuses as of 03/23/2025) Resolved Problems Problem Noted Date Diagnosed Date [...] persistent 09/23/2012 09/23/2012 Genetic Sleep Disorder [facility] Other*[id number] 09/12/2012 06/25/2016 ADVANCE DIRECTIVE INFORMATION 06/11/2011 10/02/2024 [...] as of this encounter (statuses as of 03/23/2025) Immunizations Name Administration Dates Next Due COVID-19 [...] Telephone Encounter - Nayla Ba MD - 03/23/2025 7:30 AM EDTSigned Prescriptions: Disp Refills oxyBUTYnin Chloride ER 10 MG Oral Tablet E*90 Tab*1 Sig: TAKE 1 TABLET BY MOUTH EVERY DAY IN THE MORNING Authorizing Provider: NAYLA BA * Telephone Encounter - Marylin Gruber RN - 03/22/2025 7:10 AM EDTPending Prescriptions: Disp Refills oxyBUTYnin Chloride ER 10 MG Oral Tablet E*90 Tab*1 Sig: TAKE 1 TABLET BY MOUTH EVERY DAY IN THE MORNING * Telephone Encounter - Marylin Gruber RN - 03/22/2025 7:09 AM EDT Pending Prescriptions: Disp Refills oxyBUTYnin Chloride ER 10 MG Oral Tablet *90 Tab*1 Sig: TAKE 1 TABLET BY MOUTH EVERY DAY IN THE MORNING Last Visit: 03/12/2025 (in office), Visit date not found (telemedicine) Next Visit: 06/11/2025 Last date the medication was ordered: 09/21 Patient Active Problem List Diagnosis Acquired hypothyroidism Gastroesophageal reflux disease with esophagitis 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 Coronary artery disease involving [place] coronary artery of [place] heart without angina pectoris Primary hypertension Sleep apnea, obstructive POAG (primary open-angle glaucoma) Adjustment disorder with depressed mood DDD (degenerative disc disease), cervical CURTIS (stress urinary incontinence, female) Paroxysmal atrial fibrillation (HCC) Dyslipidemia, goal LDL below 70 Mild persistent asthma without complication Rhinitis, nonallergic DM type 2, 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% ([facility]) BMI 31.0-31.9,adult Type 2 diabetes mellitus with other diabetic ophthalmic complication ([facility]) Benign hypertension with CKD (chronic kidney disease), stage II Central stenosis of spinal canal Stage 3 chronic kidney disease ([facility]) History of placement of stent in LAD coronary artery Benign hypertension with CKD (chronic kidney disease) stage III ([facility]) Chronic HFrEF (heart failure with reduced ejection fraction) ([facility]) Hypertension complicating diabetes ([facility]) HTN, goal below 150/90 Labs: Lab Results Component Value Date/Time CREATININE [...] 01/23/2019 02:34 PM * Telephone Encounter - Baldomero Kimble - 03/22/2025 4:11 AM EDTPending Prescriptions: Disp Refills oxyBUTYnin Chloride ER 10 MG Oral Tablet E*90 Tab*1 Sig: TAKE 1TABLET BY MOUTH EVERY DAY IN THE MORNING documented in this encounter Plan of Treatment Upcoming Encounters Date Type Department Care Team (Late st Contact Info) Description 05/18/2025 3:30 PM EDT Office Visit Cardiology, [facility] [address] [place] [phone] Francheska Ponce PA-C [address] [place] [phone] 06/11/2025 2:00 PM EDT Office Visit Family Medicine [address] [place] [phone] Nayla Ba MD [address] [place] [address] [place] [phone] 09/04/2025 2:00 PM EDT Office [address] [place] [phone] Megan Carr PA-C [address] [place] [address] [place] [id number] 12/04/2025 3:30 PM EST Office Visit Cardiology, [facility] [address] [place] [phone] Chace Peacock, [address] [place] [phone] Health Maintenance Due Date Last Done Comments Zoster Vaccines (1 of 2) 1990 Adult Wellness Visit 07/24/2016 07/24/2015 Albumin/Creatinine Ratio 11/17/2024 023, 11/17/2022, 11/13/2021, Additional history exists COVID-19 Vaccine ( season) 2025 09/11/2024, 11/17/2023, 12/02/2021, Additional history exists HbA1c 07/09/2025 01/09/2025, 08/29, 11/17/2023, Additional history exists TSH 09/11/2025 09/11/2024, 11/29, 04/28/2023, Additional history exists Depression Screening 10/18/2025 10/18/2024 CKD HGB USE SMARTSET 30986 10/27/202510/27, 10/27/2024, 09/11/2024, Additional history exists CKD PHOS USE SMARTSET 32223 10/27/202509/30, 09/16/2020, 08/29/2019 Diabetic Foot Exam 01/19/2026 [...] filedocumented as of this encounter Care Teams Emergency Medcl Emt Relationship Specialty Start Date End Date Nayla Ba MD [address] [place] [address] [place] [phone] PCP - General Family Medicine 10/23/24 documented as of this encounter
--- OUTSIDE RECORDS SUMMARY | 2025-04-01 17:34 | External Medical Summary | Summary of Care ---
Author Name Unknown Organization [facility] Address [address] [place] [facility] [place] [address] Phone [phone] Care Team Providers Care Lining Cleaner Name Role Phone Nayla Ba MD Primary Care Pr ovider Reason for Visit * Reason Comments eRx-Medication Refill Encounter Details Date Type Department Care Team (Late st Contact Info) Description 03/10/2025 Refill Family Medicine [address] [phone] Rolanda Villalpando PA-C [address] [place] [address] [place] [phone] Allergies Active Allergy Reactions Criticality Noted Date Comments Brassica Oleracea 05/17/2020 Other Reaction(s): Gas Crab (Diagnostic) 04/05/2018 Crab Extract 05/17/2020 Other Reaction(s): diarrhea Food (See Comments) 07/24/2015 Broccoli, beans, cauliflower - cause gas Grapefruit, oranges - cause bronchitis - positive skin test Grapefruit Extract 05/17/2020 Other Reaction(s): BRONCHITIS [place] Oil 05/17/2020 Other Reaction(s): BRONCHITIS Paroxetine Hydrochloride [...] MG Oral Tablet (Lipitor)Indicati ons:Atheroscleros is of [place] coronary artery of [place] heart without angina pectoris,Paroxysm al atrial fibrillation (HCC),Dyslipidemi a, goal LDL below 100 take one pill by mouth at bedtime 90 Tablet 1 024 Active Potassium Chloride Krystal ER 20 MEQ Oral Tablet Extended Release (Klor-Con M20) Take 1 Tablet by mouth in the morning. 90 Tablet 1 024 Active Nystatin 806116 UNIT/GM External CreamIndications: Dermatitis Apply topically to [...] blood pressure less than 140/90,Atheroscle rosis of [place] coronary artery of [place] heart without angina pectoris,Paroxysm al atrial fibrillation [...] 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 Coronary artery disease invo lving [place] coronary artery of [place] heart without angina pectoris Adjustment disorder with [...] Genetic Sleep Disorder [facility] Other*[id number] 09/12/2012 06/25/2016 ADVANCE DIRECTIVE INFORMATION 06/11/2011 10/02/2024 [...] BA * Telephone Encounter - Virgie Serrano [facility] - 03/11/2025 10:27 PM EDT Pending Prescriptions: [...] and medication before forwarding?yes Pharmacy: [id number] [place] [address] Pending Prescriptions: Disp Refills Sodium Chloride 1 [...] 2:00 PM EDT Office Visit Family Medicine [address] [place] [phone] Nayla Ba MD [address] [place] [address] [place] [phone] 05/18/2025 3:30 PM EDT Office Visit Cardiology, [facility] [address] [place] [phone] Francheska Ponce PA-C [address] [place] [phone] 12/04/2025 3:30 PM EST Office Visit Cardiology, [facility] [address] [place] [phone] Chace Peacock, [address] [place] [address] Health Maintenance Due Date Last Done Comments Zoster Vaccines (1 of 2) 1990 Adult Wellness Visit 07/24/2016 07/24/2015 Albumin/Creatinine Ratio 11/17/2024 023, 11/17/2022, 11/13/2021, Additional history exists COVID-19 Vaccine ( season) 2025 09/11/2024, 11/17/2023, 12/02/2021, Additional history exists HbA1c 07/09/2025 01/09/2025, 08/29, 11/17/2023, Additional history exists TSH 09/11/2025 09/11/2024, 11/29, 04/28/2023, Additional history exists Depression Screening 10/18/2025 10/18/2024 CKD HGB USE SMARTSET 60889 10/27/202510/27, 10/27/2024, 09/11/2024, Additional history exists CKD PHOS USE SMARTSET 51617 10/27/202509/30, 09/16/2020, 08/29/2019 Diabetic Foot Exam 01/19/2026 [...] filedocumented as of this encounter Care Teams Lining Cleaner Relationship Specialty Start Date End Date Nayla Ba MD [address] [place] [address] [place] [phone] PCP - General Family Medicine 10/23/24 documented as of this encounter
--- OUTSIDE RECORDS SUMMARY | 2025-04-01 17:34 | External Medical Summary | Summary of Care ---
Author Name Unknown Organization [facility] Address [address] [place] [address] Phone [phone] Care Team Providers Care Home Energy Auditor Name Role Phone Lilo Ba MD Primary Care Pr ovider Reason for Referral * Evaluate & Treat - Unlimited Visits (Within 10 days (routine)) - Authorized Specialty Diagnoses / Procedures Referred By Evangelist osborne Referred To Contact Dermatology Diagnoses Dermatitis Lilo Ba MD [address] [place] [address] [place] [phone] Phone: tel: fax: Referral ID Status Reason Start Date Expiration Date Visits Requested Visits Authorized [id number] Authorized Specialty Services Required 03/12/[phone] Question Answer Referral Priority Within 10 days (routine) Where should this appointment be scheduled? [facility] Are you referring the patient for Mohs Surgery and have a current positive skin cancer biopsy result? No What is the reason for the patient referral? Rash/Skin Check/Eval of Lesion or Mole - persistent skin lesions * Evaluate & Treat - Unlimited Visits (Within 10 days (routine)) - Authorized Specialty Diagnoses / Procedures Referred By Evangelits osborne Referred To Contact Physical Therapy / Physical Medicine And Rehab Diagnoses Bilateral chronic knee pain Lilo Ba MD [address] [place] [address] [place] [address] Phone: tel: fax: Referral ID Status Reason Start Date Expiration Date Visits Requested Visits Authorized [id number] Authorized Specialty Services Required 03/12/2025 999 999 Question Answer Referral Priority Within 10 days (routine) Where should this appointment be scheduled? 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)*; Benign hypertension with CKD (chronic kidney disease) stage III ([facility]); Hypertension complicating diabetes (HCC); Acquired hypothyroidism; HTN, goal below 150/90; Atherosclerosis of [place] coronary artery of [place] heart without angina pectoris; Paroxysmal atrial fibrillation (HCC); Dermatitis; Bilateral chronic knee pain; Urge incontinence Allergies Active Allergy Reactions Criticality Noted Date Comments Brassica Oleracea 05/17/2020 Other Reaction(s): Gas Crab (Diagnostic) 04/05/2018 Crab Extract 05/17/2020 Other Reaction(s): diarrhea Food (See Comments) 07/24/2015 Broccoli, beans, cauliflower - cause gas Grapefruit, oranges - cause bronchitis - positive skin test Grapefruit Extract 05/17/2020 Other Reaction(s): BRONCHITIS [place] Oil 05/17/2020 Other Reaction(s): BRONCHITIS Paroxetine Hydrochloride [...] DM type 2, 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% ([facility]) Test blood sugar once daily [...] morning. 90 Capsule 3 04/21/20 24 Active Aspirin 81 MG Oral Tablet Delayed Release (Ecotrin Low Strength) Take 1 Tablet by mouth in the morning. 100 Tablet 3 04/21/20 24 Active Montelukast Sodium 10 MG Oral Tablet (Singulair)Indicat ions:Other seasonal allergic rhinitis Take 1 Tablet by mouth at bedtime. 90 Tablet 1 04/21/20 24 Active Atorvastatin Calcium 20 MG Oral Tablet (Lipitor)Indicatio ns:Atherosclerosis of [place] coronary artery of [place] heart without angina pectoris,Paroxysma l atrial fibrillation (HCC),Dyslipidemia , goal LDL below 100 take one pill by mouth at bedtime 90 Tablet 1 04/21/20 24 Active Potassium Chloride Krystal ER 20 MEQ Oral Tablet Extended Release (Klor-Con M20) Take 1 Tablet by mouth in the morning. 90 Tablet 1 04/21/20 24 Active oxyBUTYnin Chloride ER 10 MG Oral Tablet Extended Release 24 Hour (Ditropan XL) Take 1 Tablet by mouth in the morning. 90 Tablet 1 09/28/20 24 Active Losartan Potassium 100 MG Oral [...] NEEDED FOR LAXATIVE EFFECT 10/16/20 24 Active hydrALAZINE HCl 50 MG Oral Tablet (Apresoline) Take 1 Tablet by mouth in the morning and 1 Tablet at noon and 1 Tablet before bedtime. 270 Tablet 3 01/09/20 25 Active amLODIPine Besylate 5 MG Oral Tablet (Norvasc)Indicatio ns: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) Take 2 Tablets by mouth in the morning. 180 Tablet 3 03/12/20 25 Active Chlorthalidone 25 MG Oral Tablet (Hygroton) Take 1 Tablet by mouth in the morning. 90 Tablet 3 03/12/20 25 Active Levothyroxine Sodium 100 MCG Oral Tablet (Levoxyl)Indicatio ns:Acquired hypothyroidism TAKE 1 TABLET BY MOUTH EVERY DAY IN THE MORNING 90 Tablet 3 03/12/20 25 Active Metoprolol Succinate ER 50 MG Oral Tablet Extended Release 24 Hour (toPROL XL)Indications:HTN , goal below 150/90,Atheroscler osis of [place] coronary artery of [place] heart without angina pectoris,Paroxysma l atrial fibrillation (HCC) Take 1 Tablet by mouth in the morning. 30 Tablet 5 03/12/20 25 Active Sodium Chloride 1 GM Oral Tablet TAKE 1 TABLET BY MOUTH IN THE MORNING AND BEFORE BEDTIME 180 Tablet 3 03/12/20 25 Active Nystatin 378530 UNIT/GM External CreamIndications:D ermatitis Apply topically to affected area 2 times a day. To affacted area for two weeks. 60 g 2 03/12/20 25 Active Nystatin 341594 UNIT/GM External CreamIndications:D ermatitis Apply topically to affected area 2 times a day. To affacted area for two weeks. 60 g 2 07/12/20 24 025 Discontin ued(Refil l) Levothyroxine Sodium 100 MCG Oral Tablet (Levoxyl)Indicatio ns:Acquired hypothyroidism TAKE 1 TABLET BY MOUTH EVERY DAY IN THE MORNING 90 Tablet 3 09/22/20 24 025 Discontin ued(Refil l) Metoprolol Tartrate 25 MG Oral Tablet (Lopressor)Indicat ions:Essential hypertension with goal blood pressure less than 140/90,Atheroscler osis of [place] coronary artery of [place] heart without angina pectoris,Paroxysma l atrial fibrillation (HCC) Take 1 Tablet by mouth in the morning and 1 Tablet before bedtime. 180 Tablet 1 12/09/19 25 025 Discontin ued(Refil l) Chlorthalidone 25 MG Oral Tablet (Hygroton) Take 2 Tablets by mouth in the morning. 90 Tablet 2 01/09/20 25 025 Discontin ued(Refil l) amLODIPine Besylate 5 MG Oral Tablet (Norvasc)Indicatio ns: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) Take 2 Tablets by mouth in the morning. 180 Tablet 1 02/21/20 25 025 Discontin ued(Refil l) Sodium Chloride 1 GM Oral Tablet TAKE 1 TABLET BY MOUTH IN THE MORNING AND BEFORE BEDTIME 180 Tablet 1 03/12/20 25 025 Discontin ued(Refil l) documented as [...] 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 Coronary artery disease invo lving [place] coronary artery of [place] heart without angina pectoris Adjustment disorder [...] Disorder Resea [facility] Other*[id number] 09/12/2012 06/25/2016 ADVANCE DIRECTIVE INFORMATION 06/11/2011 10/02/2024 [...] CG/0.3 mL, 12 YRS AND ABOVE, IM ([facility]) 09/11/2024,11/17/2023 COVID-19, mRNA, LNP-s, PF, B ooster, [...] money to buy more. Never true 10/18/20 Within the past 12 months, t he [...] Sign Reading Time Taken Comments Blood Pressure 120/62 03/12/2025 1:23 PM EDT Pulse 57 03/12/2025 1:23 PM EDT Temperature 36.2 °C (97.1 °F) 03/12/2025 1:23 PM ED T Respiratory Rate - - Oxygen Saturation 90% 03/12/2025 1:23 PM EDT Inhaled Oxygen Concentration - - Weight 67.7 kg (149 lb 4.8 oz) 03/12/2025 1:23 P M EDT Height 152.4 cm (5') 03/12/2025 1:23 PM EDT Body Mass Index 29.16 03/12/2025 1:23 PM EDT documented in this encounter Patient Instructions * Patient Instructions* Lilo Ba MD - 03/12/2025 1:49 PM EDT Change metoprolol to once daily (extended release) Decrease chlorthalidone to 25 mg documented in this encounter Progress Notes * Lilo Ba MD - 03/12/2025 1:29 PM EDT Images from the original note were not included. History of Present Illness Yudelka Palacios is a 85 year old female that presents for Follow Up History of Present Illness Yudelka Palacios is an 85 year old female who presents with skin breakouts and knee pain. She experiences skin breakouts that are rough and difficult to see due to her vision issues. The breakouts are not itchy but feel 'awful to the touch' and sometimes bleed, as evidenced by bloody spots on her nightgown. She has been using a cream prescribed for a rash caused by wearing Depends, which she has finished. She is unsure if there are alternative treatments available. She has a history of a right knee injury from a fall approximately ten years ago, resulting in water on the knee. The knee was drained multiple times, but the issue persisted until a surgeon removed the bursa. Despite the surgery, she continues to experience pain and difficulty maneuvering the knee, particularly around the area where the bursa was removed. She experiences bladder leakage, using Depend Silhouette and Poise pads to manage it. She is unsureif the Ditropan (oxybutynin) she is taking is effective. She describes the leakage as occurring with bladder spasms rather than stress incontinence. She mentions dental issues, with a recent consultation suggesting extensive dental work, including the removal of all upper teeth and repairs on the lower teeth. She expresses concern about the feasibility and impact of such procedures given her age and other health issues. She has a history of glaucoma, which is currently stable according to her last eye exam. She does not have a blood pressure cuff at home and relies on her lyjzkhko-np-axt to manage her medications. Had eye exam in January Physical Exam BP 120/62 | Pulse 57 | Temp 97.1 °F (36.2 °C) (Infrared ) | Ht 5' (1.524 m) | Wt 149 lb 4.8 oz (67.7 kg) | SpO2 90% | BMI 29.16 kg/m² | BSA 1.69 m² Has thick gel faroese Physical Exam Vitals and nursing note reviewed. Constitutional: General: She is not in acute distress. HENT: Head: Normocephalic and atraumatic. Mouth/Throat: Mouth: Mucous membranes are moist. Eyes: Extraocular Movements: Extraocular movements intact. Neck: Thyroid: No thyromegaly. Cardiovascular: Rate and Rhythm: Normal rate and regular rhythm. Pulmonary: Breath sounds: Normal breath sounds. No wheezing or rhonchi. Abdominal: General: Bowel sounds are normal. There is no distension. Palpations: Abdomen is soft. Tenderness: There is no abdominal tenderness. Musculoskeletal: General: Normal range of motion. Cervical back: Normal range of motion and neck supple. Right lower leg: No edema. Left lower leg: No edema. Lymphadenopathy: Cervical: No cervical adenopathy. Upper Body: Right upper body: No supraclavicular adenopathy. Left upper body: No supraclavicular adenopathy. Skin: General: Skin is warm and dry. Findings: Lesion (multiple spots of dry flaky skin, some consistent with karen k's) present. No rash. Neurological: General: No focal deficit present. Mental Status: She is alert and oriented to person, place, and time. Psychiatric: Mood and Affect: Mood normal. Behavior: Behavior normal. I have reviewed most recent labs Hemoglobin A1C, TSH, and BMP Assessment and Plan Assessment & Plan Dermatological issues She experiences rough, peeling skin with bleeding spots. The cream for rash due to incontinence products is effective. Refill the cream and refer to a patch press operator for further evaluation. Right knee pain post-bursa removal Chronic pain and maneuvering difficulties persist after bursa removal. Refer to physical therapy before considering orthopedic intervention. Hypertension Her blood pressure is well-controlled. Decrease chlorthalidone to 25 mg daily to alleviate skin dryness and simplify the regimen. Urinary incontinence Bladder spasms cause leakage. She uses incontinence products and a poise pad. The effectiveness of oxybutynin is uncertain, but can continue at this time. Cut back diuretic as BP is controlled, may help as well. Dental issues She requires extensive dental work, including upper teeth removal and denture placement. Discussed the inconvenience and dietary restrictions during healing. Follow-up Monitor conditions and adjust treatments as necessary. Order lab work to check blood sugar levels. Schedule a follow-up visit in three months and provide a list of current medications for the eye doctor. 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 Encouraged healthy diet, recheck labs in 3 months. - HEMOGLOBIN A1C; Future - BASIC METABOLIC PANEL; Future - ALBUMIN / CREATININE RATIO, URINE; Future 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) - amLODIPine Besylate 5 MG Oral Tablet (Norvasc); Take 2 Tablets by mouth in the morning. - BASIC METABOLIC PANEL; Future - ALBUMIN / CREATININE RATIO, URINE; Future Hypertension complicating diabetes (HCC) Acquired hypothyroidism Continue synthroid, check TSH in 3 months - Levothyroxine Sodium 100 MCG Oral Tablet (Levoxyl); TAKE 1 TABLET BY MOUTH EVERY DAY IN THE MORNING - TSH WITH FREE T4 IF INDICATED; Future HTN, goal below 150/90 - Metoprolol Succinate ER 50 MG Oral Tablet Extended Release 24 Hour (toPROL XL); Take 1 Tablet by mouth in the morning. Atherosclerosis of [place] coronary artery of [place] heart without angina pectoris Change beta monico to extended release for heart failure. Follows with Cardiology as well, has an appt in a few months - Metoprolol Succinate ER 50 MG Oral Tablet Extended Release 24 Hour (toPROL XL); Take 1 Tablet by mouth in the morning. - CBC WITH WBC DIFFERENTIAL; Future Paroxysmal atrial fibrillation (HCC) On beta monico, ASA - Metoprolol Succinate ER 50 MG Oral Tablet Extended Release 24 Hour (toPROL XL); Take 1 Tablet by mouth in the morning. - CBC WITH WBC DIFFERENTIAL; Future Dermatitis Some of the skin lesions appear to be karen K's but others could be consistent with basal cell lesions- will refer to Derm for skin exam and treatment as needed. Continue good moisturizing habits. Nystatin for the groin dermatitis - Nystatin [id number] UNIT/GM External Cream; Apply topically to affected area 2 times a day. To affacted area for two weeks. - DERMATOLOGY REFERRAL OP Bilateral chronic knee pain Refer to PT for treatment, can consider return to Ortho after if not improved. - PHYSICAL THERAPY REFERRAL OP Urge incontinence Wrap-Up Follow Up: Return in about 3 months (around 06/11/2025). Time: I spent a total of 30-39 minutes (exact time 38 mins) on the date of service in preparation, delivery, and documentation of the care provided to Yudelka Palacios excluding any time spent in the performance of separately billed services. Text in this note was generated using an Camera360 documentation service. I discussed the use of a device to record and summarize our discussion today. All persons present during the encounter consented to its use. documented in this encounter Nursing Notes * Liat Duran CMA - 03/12/2025 1:24 PM EDT 1 month f/u skin tears/scabs on bilateral arms and neck, in her hair. Wants looked at documented in this encounter Plan of Treatment Upcoming Encounters Date Type Department Care Team (Late st Contact Info) Description 05/18/2025 3:30 PM EDT Office Visit Cardiology, [facility] [address] [place] [phone] Francheska Ponce PA-C [address] [place] [phone] 06/11/2025 2:00 PM EDT Office Visit Family Medicine [address] [phone] Lilo Ba MD [address] [place] [address] [place] [phone] 09/04/2025 2:00 PM EDT [facility] [address] [facility] [place] [phone] Megan Carr PA-C [address] [place] [address] [place] [phone] 12/04/2025 3:30 PM EST Office Visit Cardiology, [facility] [address] [place] [phone] Chace Peacock, DO [address] [place] [address] Scheduled Orders Name Type Priority Associated Diagnoses Orde r Schedule HEMOGLOBIN A1C Lab Routine 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) Expected: 06/11/2025 (Approximate), Expires: 03/12/2026 BASIC METABOLIC PANEL Lab Routine 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) 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) Expected: 06/11/2025 (Approximate), Expires: 03/12/2026 ALBUMIN / CREATININE RATIO, URINE Lab Routine 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) 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) Expected: 06/11/2025, Expires: 03/12/2026 CBC WITH WBC DIFFERENTIAL Lab Routine Atherosclerosis of [place] coronary artery of [place] heart without angina pectoris Paroxysmal atrial fibrillation (HCC) Expected: 06/11/2025 (Approximate), Expires: 03/12/2026 TSH WITH FREE T4 IF INDICATED Lab Routine Acquired hypothyroidism Expected: 06/11/2025 (Approximate), Expires: 03/12/2026 Scheduled Referrals Name Type Priority Associated Diagnoses Orde r Schedule PHYSICAL THERAPY REFERRAL OP Referral Within 10 days (routine) Bilateral chronic knee pain Ordered: 03/12/2025 DERMATOLOGY REFERRAL OP Referral Within 10 days (routine) Dermatitis Ordered: 03/12/2025 Health Maintenance Due Date Last Done Comments Zoster Vaccines (1 of 2) 1989 Adult Wellness Visit 07/24/2016 07/24/2015 Albumin/Creatinine Ratio 11/17/2024 023, 11/17/2022, 11/13/2021, Additional history exists COVID-19 Vaccine ( season) 2025 09/11/2024, 11/17/2023, 12/02/2021, Additional history exists HbA1c 07/09/2025 01/09/2025, 08/29, 11/17/2023, Additional history exists TSH 09/11/2025 09/11/2024, 11/29, 04/28/2023, Additional history exists Depression Screening 10/18/2025 10/18/2024 CKD HGB USE SMARTSET 73336 10/27/202510/27, 10/27/2024, 09/11/2024, Additional history exists CKD PHOS USE SMARTSET 46643 10/27/202509/30, 09/16/2020, 08/29/2019 Diabetic Foot Exam 01/19/2026 [...] with other diabetic ophthalmic complication (HCC)- Primary 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) Benign hypertensive kidney disease with chronic kidney disease stage I through stage IV, or unspecified Hypertension complicating diabetes (HCC) Acquired hypothyroidism Unspecified hypothyroidism HTN, goal below 150/90 Atherosclerosis of [place] coronary artery of [place] heart without angina pectoris Paroxysmal atrial fibrillation (HCC) Atrial fibrillation Dermatitis Contact dermatitis and other eczema, due to unspecified cause Bilateral chronic knee pain Pain in joint, lower leg Urge incontinence documented in this encounter Care Teams Home Energy Auditor Relationship Specialty Start Date End Date CatLilo Moeller MD [address] [place] [address] [place] [phone] PCP - General Family Medicine 10/23/24 documented as of this encounter"
--- OUTSIDE RECORDS SUMMARY | 2025-04-01 17:34 | External Medical Summary | Summary of Care ---
Author Name Unknown Organization [facility] Address [address] [place] [address] Phone [phone] Care Team Providers Care Grinder Brake Lining Name Role Phone Lilo Ba MD Primary Care Pr ovider Reason for Visit * Reason Comments eRx-Medication Refill Encounter Details Date Type Department Care Team (Late st Contact Info) Description 03/22/2025 Refill Family Medicine [address] [phone] Rachell Newsome MD [address] [place] [id number] Allergies Active Allergy Reactions Criticality Noted Date Comments Brassica Oleracea 05/17/2020 Other Reaction(s): Gas Crab (Diagnostic) 04/05/2018 Crab Extract 05/17/2020 Other Reaction(s): diarrhea Food (See Comments) 07/24/2015 Broccoli, beans, cauliflower - cause gas Grapefruit, oranges - cause bronchitis - positive skin test Grapefruit Extract 05/17/2020 Other Reaction(s): BRONCHITIS [place] Oil 05/17/2020 Other Reaction(s): BRONCHITIS Paroxetine Hydrochloride [...] type 2, 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% ([facility]) TEST BLOOD SUGAR ONCE DAILY DIRECTED DX E11.9 100 Each 3 01/03/20 24 Active OneTouch Verio In Vitro Strip (Glucose Blood)Indications: DM type 2, 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% ([facility]) Test blood sugar once daily as directed; [...] 20 MG Oral Tablet (Lipitor)Indicatio ns:Atherosclerosis of [place] coronary artery of [place] heart without angina pectoris,Paroxysma l atrial fibrillation (HCC),Dyslipidemia , goal LDL below 100 take one pill by mouth at bedtime 90 Tablet 1 04/21/20 24 Active Potassium Chloride Krystal ER 20 MEQ Oral Tablet Extended Release (Klor-Con M20) Take 1 Tablet by mouth in the morning. 90 Tablet 1 04/21/20 24 Active Losartan Potassium 100 MG Oral [...] XL)Indications:HTN , goal below 150/90,Atheroscler osis of [place] coronary artery of [place] heart without angina pectoris,Paroxysma l atrial fibrillation (HCC) Take 1 Tablet by mouth in the morning. 30 Tablet 5 03/12/20 25 Active Sodium Chloride 1 GM Oral Tablet TAKE 1 TABLET BY MOUTH IN THE MORNING AND BEFORE BEDTIME 180 Tablet 3 03/12/20 25 Active Nystatin 824459 UNIT/GM External CreamIndications:D ermatitis Apply topically to affected area 2 times a day. To affacted area for two weeks. 60 g 2 03/12/20 25 Active oxyBUTYnin Chloride ER 10 MG Oral Tablet Extended Release 24 Hour (Ditropan XL) TAKE 1 TABLET BY MOUTH EVERY DAY IN THE MORNING 90 Tablet 1 03/23/20 25 Active documented as of this encounter [...] 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 Coronary artery disease invo lving [place] coronary artery of [place] heart without angina pectoris Adjustment disorder with [...] persistent 09/23/2012 09/23/2012 Genetic Sleep Disorder Resea [facility] Other*[id number] 09/12/2012 06/25/2016 ADVANCE DIRECTIVE INFORMATION 06/11/2011 10/02/2024 [...] No 10/18/2024 Does the household have a [facility] source of income? (Household - for ages [...] encounter Miscellaneous Notes * Telephone Encounter - Samra Bloom [facility] - 03/23/2025 11:55 AM EDTRefused Prescriptions: Disp Refills metFORMIN HCl 850 MG Oral Tablet (Glucopha*180 Ta* Sig: TAKE 1 TABLET BY MOUTH TWICE A DAYRefused By: Parisa BLOOM for Refusal: Course of treatment comp lete documented in this encounter Plan of Treatment Upcoming Encounters Date Type Department Care Team (Late st Contact Info) Description 05/18/2025 3:30 PM EDT Office Visit Cardiology, [facility] [address] [place] [phone] Francheska Ponce PA-C [address] [place] [phone] 06/11/2025 2:00 PM EDT Office Visit [address] Medicine [address] [place] [phone] Lilo Ba MD [address] [place] [address] [place] [phone] 09/04/2025 2:00 PM EDT [facility] [address] [facility] [place] [phone] Megan Carr PA-C [address] [place] [address] [place] [phone] 12/04/2025 3:30 PM EST Office Visit Cardiology, [facility] [address] [place] [phone] Chace Peacock DO [address] [place] [phone] Health Maintenance Due Date Last Done Comments Zoster Vaccines (1 of 2) 1990 Adult Wellness Visit 07/24/2016 07/24/2015 Albumin/Creatinine Ratio 11/17/2024 023, 11/17/2022, 11/13/2021, Additional history exists COVID-19 Vaccine ( season) 2025 09/11/2024, 11/17/2023, 12/02/2021, Additional history exists HbA1c 07/09/2025 01/09/2025, 08/29, 11/17/2023, Additional history exists TSH 09/11/2025 09/11/2024, 11/29, 04/28/2023, Additional history exists Depression Screening 10/18/2025 10/18/2024 CKD HGB USE SMARTSET 27643 10/27/202510/27, 10/27/2024, 09/11/2024, Additional history exists CKD PHOS USE SMARTSET 26696 10/27/202509/30, 09/16/2020, 08/29/2019 Diabetic Foot Exam 01/19/2026 [...] filedocumented as of this encounter Care Teams Grinder Brake Lining Relationship Specialty Start Date End Date Lilo Ba MD [address] [place] [address] [place] [phone] PCP - General Family Medicine 10/23/24 documented as of this encounter
--- OUTSIDE RECORDS SUMMARY | 2025-04-01 17:34 | External Medical Summary | Summary of Care ---
Author Name Unknown Organization [facility] Address [address] [place] [address] Phone [phone] Care Team Providers Care Gas Plant Operator Name Role Phone Lilo Ba MD Primary Care Pr ovider Reason for Visit * Reason Onset Date Comments Home Health 12/06/2024 Encounter Details Date Type Department Care Team (Late st Contact Info) Description 12/06/2024 Telephone Family Medicine [address] [phone] Lilo Ba MD [address] [place] [address] [place] [address] Home Health Allergies Active Allergy Reactions Criticality Noted Date Comments Brassica Oleracea 05/17/2020 Other Reaction(s): Gas Crab (Diagnostic) 04/05/2018 Crab Extract 05/17/2020 Other Reaction(s): diarrhea Food (See Comments) 07/24/2015 Broccoli, beans, cauliflower - cause gas Grapefruit, oranges - cause bronchitis - positive skin test Grapefruit Extract 05/17/2020 Other Reaction(s): BRONCHITIS [place] Oil 05/17/2020 Other Reaction(s): BRONCHITIS Paroxetine Hydrochloride 04/03/2009 Penicillins 04/03/2009 Blisters on hands Peanut-Containing Drug Products Abdominal pain Medium 07/24/2015 Gas, bloating Phaseolus 01/10/2024 Other Reaction(s): Bloating, Gas also with green beans documented as of this encounter (statuses as of 03/08/2025) Medications Albuterol Sulfate HFA 108 (90 Base) [...] MG Oral Tablet (Lipitor)Indicatio ns:Atherosclerosis of [place] coronary artery of [place] heart without angina pectoris,Paroxysma l atrial fibrillation (HCC),Dyslipidemia , goal LDL below 100 take one pill by mouth at bedtime 90 Tablet 1 04/21/20 24 Active Potassium Chloride Krystal ER 20 MEQ Oral Tablet Extended Release (Klor-Con M20) Take 1 Tablet by mouth in the morning. 90 Tablet 1 04/21/20 24 Active Nystatin 718743 UNIT/GM External CreamIndications:D ermatitis Apply topically to [...] DAILY NEEDED FOR LAXATIVE EFFECT 10/16/20 Active documented as of this encounter (statuses as of 03/08/2025) Active Problems Problem Noted Date Diagnosed Date [...] hemorrhage Coronary artery disease invo lving [place] coronary artery of [place] heart without angina pectoris Adjustment disorder with depressed mood documented as of this encounter (statuses as of 03/08/2025) Resolved Problems Problem Noted Date Diagnosed Date [...] Disorder Resea [facility] Other*[id number] 09/12/2012 06/25/2016 ADVANCE DIRECTIVE INFORMATION 06/11/2011 10/02/2024 [...] as of this encounter (statuses as of 03/08/2025) Immunizations Name Administration Dates Next Due COVID-19 mRNA, LNP-s, No Pre serve, 2-Dose Series (Moderna) 03/15/2021,02/16/2021 COVID-19, MRNA-LNP, PF, 30 M CG/0.3 mL, 12 YRS AND ABOVE, IM ([facility] 09/11/2024,11/17/2023 COVID-19, mRNA, LNP-s, PF, B ooster, [...] Telephone Encounter - Amy Bhandari LPN - 12/06/2024 3:58 PM EST Home Health Continuation/Re-certification of Care Order Request: osorio NUGENT, [facility] Today is the last day of allotted HH visits. Continuation/Re-certification of: Correction Re Cert period: 8 weeks Reason for re-cert: med education compliance they are work to set pt up to compliance pill pack with the pharm. Son and DIL will take over meds once HH is complete. Last office visit: 11/13/24 Next office visit: 01/23/25 Advised that additional orders will be signed by Mark and to fax to the office for signature. documented in this encounter Plan of Treatment Upcoming Encounters Date Type Department Care Team (Late st Contact Info) Description 03/12/2025 2:00 PM EDT Office Visit Family Medicine [address] [place] [phone] Lilo Ba MD [address] [place] [address] [place] [phone] 05/18/2025 3:30 PM EDT Office Visit Cardiology, [facility] [address] [place] [phone] Francheska Ponce PA-C [address] [place] [address] 12/04/2025 3:30 PM EST Office Visit Cardiology, [facility] [address] [place] [phone] Chace Peacock, [address] [place] [...] Screening 10/18/2025 10/18/2024 CKD HGB USE SMARTSET 42639 10/27/202510/27, 10/27/2024, 09/11/2024, Additional history exists CKD PHOS USE SMARTSET 92097 10/27/202509/30, 09/16/2020, 08/29/2019 Diabetic Foot Exam 01/19/2026 [...] filedocumented as of this encounter Care Teams Gas Plant Operator Relationship Specialty Start Date End Date Lilo Ba MD [address] [place] [address] [place] [phone] PCP - General Family Medicine 10/23/24 documented as of this encounter
--- OUTSIDE RECORDS SUMMARY | 2025-04-01 17:34 | External Medical Summary | Summary of Care ---
Author Name Unknown Organization [facility] Address [address] [place] [address] Phone [phone] Care Team Providers Care Wire Walker Name Role Phone Lilo Ba MD Primary Care Pr ovider Reason for Visit * Reason Onset Date Comments Home Health 11/13/2024 Encounter Details Date Type Department Care Team (Late st Contact Info) Description 11/13/2024 Telephone Family Medicine [address] [phone] Lilo Ba MD [address] [place] [address] [place] [phone] Home Health Allergies Active Allergy Reactions Criticality Noted Date Comments Brassica Oleracea 05/17/2020 Other Reaction(s): Gas Crab (Diagnostic) 04/05/2018 Crab Extract 05/17/2020 Other Reaction(s): diarrhea Food (See Comments) 07/24/2015 Broccoli, beans, cauliflower - cause gas Grapefruit, oranges - cause bronchitis - positive skin test Grapefruit Extract 05/17/2020 Other Reaction(s): BRONCHITIS [place] Oil 05/17/2020 Other Reaction(s): BRONCHITIS Paroxetine Hydrochloride 04/03/2009 Penicillins 04/03/2009 Blisters on hands Peanut-Containing Drug Products Abdominal pain Medium 07/24/2015 Gas, bloating Phaseolus 01/10/2024 Other Reaction(s): Bloating, Gas also with green beans documented as of this encounter (statuses as of 02/13/2025) Medications Albuterol Sulfate HFA 108 (90 Base) [...] 2, 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% ([facility]) TEST BLOOD SUGAR ONCE DAILY DIRECTED DX E11.9 100 Each 3 01/03/20 24 Active OneTouch Verio In Vitro Strip (Glucose Blood)Indications: DM type 2, 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% ([facility]) Test blood sugar once daily [...] 20 MG Oral Tablet (Lipitor)Indicatio ns:Atherosclerosis of [place] coronary artery of [place] heart without angina pectoris,Paroxysma l atrial fibrillation (HCC),Dyslipidemia , goal LDL below 100 take one pill by mouth at bedtime 90 Tablet 1 04/21/20 24 Active Potassium Chloride Krystal ER 20 MEQ Oral Tablet Extended Release (Klor-Con M20) Take 1 Tablet by mouth in the morning. 90 Tablet 1 04/21/20 24 Active Nystatin 283937 UNIT/GM External CreamIndications:D ermatitis Apply topically to [...] as of this encounter (statuses as of 02/13/2025) Active Problems Problem Noted Date Diagnosed Date [...] 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 Coronary artery disease invo lving [place] coronary artery of [place] heart without angina pectoris Adjustment disorder with depressed mood documented as of this encounter (statuses as of 02/13/2025) Resolved Problems Problem Noted Date Diagnosed Date [...] persistent 09/23/2012 09/23/2012 Genetic Sleep Disorder Resea [facility] Other*[id number] 09/12/2012 06/25/2016 ADVANCE DIRECTIVE INFORMATION 06/11/2011 10/02/2024 [...] as of this encounter (statuses as of 02/13/2025) Immunizations Name Administration Dates Next Due COVID-19 mRNA, LNP-s, No Pre serve, 2-Dose Series (Moderna) 03/15/2021,02/16/2021 COVID-19, MRNA-LNP, PF, 30 M CG/0.3 mL, 12 YRS AND ABOVE, IM ([facility] 09/11/2024,11/17/2023 COVID-19, mRNA, LNP-s, PF, B ooster, [...] Encounter - Amy Bhandari LPN - 11/13/2024 12:40 PM EST HH Concerns Cary DOMINGUEZ, Calling from: [facility] Report/Concerns of: BP Symptoms: none Vitals: T 98.1 P66 RR18 BP 182/70 SP O2 96%RA Lung sounds crackles in bases. Weight 137 Blood sugarn/a Right 20 cm left 20.5cm Narrative: pt is concern about BP being elevated. When lays down flat she feels SOB and can't sleep. No resp distress noted while sitting or at this time. Pt has been sleeping in recliner. No CP Pt indicated she spoke with a nurse earlier today about sx. Reviewed chart noted message from Dr Flores. Scheduled appt today at 4pm documented in this encounter Plan of Treatment Upcoming Encounters Date Type Department Care Team (Late st Contact Info) Description 03/12/2025 2:00 PM EDT Office Visit Family [address] [place] [address] Lilo Ba MD [address] [place] [address] [place] [phone] 05/18/2025 3:30 PM EDT Office Visit Cardiology, [facility] [address] [place] [address] Francheska Ponce, PAVinay [address] [place] [address] 12/04/2025 3:30 PM EST Office Visit Cardiology, [facility] [address] [place] [address] Chace Peacock DO [address] [place] [address] Health Maintenance Due Date Last Done Comments Zoster Vaccines (1 of 2) 1989 Adult Wellness Visit 07/24/2016 07/24/2015 Diabetic Eye Exam 09/03/2024 09/03/2023, , 09/03/2023, Additional history exists Albumin/Creatinine Ratio 11/17/2024 023, 11/17/2022, 11/13/2021, Additional history exists COVID-19 Vaccine ( season) 2025 09/11/2024, 11/17/2023, 12/02/2021, Additional history exists HbA1c 07/09/2025 01/09/2025, 08/29, 11/17/2023, Additional history exists TSH 09/11/2025 09/11/2024, 11/29, 04/28/2023, Additional history exists Depression Screening 10/18/2025 10/18/2024 CKD HGB USE SMARTSET 70695 10/27/202510/27, 10/27/2024, 09/11/2024, Additional history exists CKD PHOS USE SMARTSET 90811 10/27/202509/30, 09/16/2020, 08/29/2019 Diabetic Foot Exam 01/19/2026 01/19/2025, 0 04/28/2023, 03/12/2022, Additional history exists DXA Scan 05/31/2026 05/31/2019, [...] filedocumented as of this encounter Care Teams Wire Walker Relationship Specialty Start Date End Date Lilo Ba MD [address] [place] [address] [place] [phone] PCP - General Family Medicine 10/23/24 documented as of this encounter
--- OUTSIDE RECORDS SUMMARY | 2025-04-01 17:35 | External Medical Summary | Summary of Care ---
Author Name Unknown Organization [facility] Address [address] [place] [address] Phone [phone] Care Team Providers Care Salesperson Recreational Vehicles Name Role Phone Lilo Ba MD Primary Care Pr ovider Reason for Visit * Reason Onset Date Comments Medication Question 01/15/2025 Encounter Details Date Type Department Care Team (Late st Contact Info) Description 01/15/2025 Telephone Family Medicine [address] [phone] Lilo Ba MD [address] [place] [address] [place] [phone] Medication Question Allergies Active Allergy Reactions Criticality Noted Date Comments Brassica Oleracea 05/17/2020 Other Reaction(s): Gas Crab (Diagnostic) 04/05/2018 Crab Extract 05/17/2020 Other Reaction(s): diarrhea Food (See Comments) 07/24/2015 Broccoli, beans, cauliflower - cause gas Grapefruit, oranges - cause bronchitis - positive skin test Grapefruit Extract 05/17/2020 Other Reaction(s): BRONCHITIS [place] Oil 05/17/2020 Other Reaction(s): BRONCHITIS Paroxetine Hydrochloride 04/03/2009 Penicillins 04/03/2009 Blisters on hands Peanut-Containing Drug Products Abdominal pain Medium 07/24/2015 Gas, bloating Phaseolus 01/10/2024 Other Reaction(s): Bloating, Gas also with green beans documented as of this encounter (statuses as of 01/17/2025) Medications Albuterol Sulfate HFA 108 (90 Base) [...] 90 Tablet 1 04/21/20 24 Active Nystatin 081604 UNIT/GM External CreamIndications:D ermatitis Apply topically to [...] bedtime. 180 Tablet 1 12/09/19 25 Active amLODIPine Besylate 5 MG Oral Tablet (Norvasc) Take 2 Tablets by mouth in the morning. 12/30/19 25 Active Chlorthalidone 25 MG Oral Tablet (Hygroton) Take 2 Tablets by mouth in the morning. 90 Tablet 2 01/09/20 25 Active hydrALAZINE HCl 50 MG Oral Tablet (Apresoline) Take 1 Tablet by mouth in the morning and 1 Tablet at noon and 1 Tablet before bedtime. 270 Tablet 3 01/09/20 25 Active documented as of this encounter (statuses as of 01/17/2025) Active Problems Problem Noted Date Diagnosed Date [...] 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 Coronary artery disease invo lving [place] coronary artery of [place] heart without angina pectoris Adjustment disorder with depressed mood documented as of this encounter (statuses as of 01/17/2025) Resolved Problems Problem Noted Date Diagnosed Date [...] 09/23/2012 Genetic Sleep Disorder Resea [facility] Other*[id number] 09/12/2012 06/25/2016 ADVANCE DIRECTIVE INFORMATION 06/11/2011 10/02/2024 [...] as of this encounter (statuses as of 01/17/2025) Immunizations Name Administration Dates Next Due COVID-19 [...] encounter Miscellaneous Notes * Telephone Encounter - Liat Duran CMA - 01/17/2025 12:42 PM EST Spoke with son advised should be off med, and advised to schedule appt to discuss in office scheduled for 01/19 at 240PM aware to call back if appt does not work * Telephone Encounter - Lilo Ba MD - 01/17/2025 7:22 AM EST Ok to stop it * Telephone Encounter - Per Vee LPN - 01/16/2025 4:35 PM EST Claudia (ED) calling in today. Patient son Maren did state to his Claudia he was notified on 10/27/24 to stop metformin, but forgot to tell the family. Metformin was never removed from patient pill box. She remains to take Metformin 850 MG BID. 01/09/25 lab below with Metformin 850 mg BID: Hemoglobin A1C 4.0 - 5.6 % 5.8 High Last OV on 01/09/2025 with MD Claudia Johnson is asking do you want her to continue Metformin 850 MG BID? Please contact Claudia-(EC) daughter in law with advice/orders. or maren (Son) [phone] * Telephone Encounter - Marylin Gruber RN - 01/16/2025 8:22 AM EST See encounter 10/27/24, pt no longer needs the metformin, it was stopped due to low blood sugars Message left for daughter * Telephone Encounter - Piter Montano OSA - 01/15/2025 5:53 PM EST Pts daughter in law states that the pt should be on Metformin but she has none right now and there is no Metformin on her medication list. She wants to make sure that the pt is alright to not be taking it documented in this encounter Plan of Treatment Upcoming Encounters Date Type Department Care Team (Late st Contact Info) Description 01/19/2025 2:40 PM EST Office Visit [address] [phone] Lilo Ba MD [address] [place] [address] [place] [phone] 01/23/2025 1:20 PM EST [address] [phone] Lilo Ba MD [address] [place] [address] [place] [phone] 01/26/2025 11:20 AM EST Office Visit [address] [phone] Lilo Ba MD [address] [place] [address] [place] [phone] 02/06/2025 12:30 PM EDT Office Visit [facility] [address] Lashaun Moore PA-C [address] [place] [address] 03/12/2025 2:00 PM EDT Office Visit Family [address] [place] [phone] Lilo Ba MD [address] [place] [address] [place] [phone] 05/18/2025 3:30 PM EDT Office Visit Cardiology, [facility] [address] [place] [address] Francheska Ponce PA-C [address] [place] [address] 12/04/2025 3:30 PM EST Office Visit Cardiology, [facility] [address] [place] [address] Chace Peacock DO [address] [place] [address] Health Maintenance Due Date Last Done Comments [...] Screening 10/18/2025 10/18/2024 CKD HGB USE SMARTSET 86516 10/27/202510/27, 10/27/2024, 09/11/2024, Additional history exists CKD PHOS USE SMARTSET 06201 10/27/202509/30, 09/16/2020, 08/29/2019 DXA Scan 05/31/2026 05/31/2019, [...] filedocumented as of this encounter Care Teams Salesperson Recreational Vehicles Relationship Specialty Start Date End Date Lilo Ba MD [address] [place] [address] [place] [phone] PCP - General Family Medicine 10/23/24 documented as of this encounter
--- OUTSIDE RECORDS SUMMARY | 2025-04-01 17:35 | External Medical Summary | Summary of Care ---
Author Name Unknown Organization [facility] Address [address] [facility] [place] [address] Phone [phone] Care Team Providers Care School Admissions Representative Name Role Phone Lilo Ba MD Primary Care Pr ovider Reason for Visit * Reason Comments Outpatient Testing Encounter Details Date Type Department Care Team (Late st Contact Info) Description 01/09/2025 2:40 PM EST Laboratory Laboratory [address] [place] [phone] [place] [address] Benign hypertension with CKD (chronic kidney disease) stage III ([facility]); Type 2 diabetes mellitus with other diabetic ophthalmic complication ([facility]); Dysuria Allergies Active Allergy Reactions Criticality Noted Date Comments Brassica Oleracea 05/17/2020 Other Reaction(s): Gas Crab (Diagnostic) 04/05/2018 Crab Extract 05/17/2020 Other Reaction(s): diarrhea Food (See Comments) 07/24/2015 Broccoli, beans, cauliflower - cause gas Grapefruit, oranges - cause bronchitis - positive skin test Grapefruit Extract 05/17/2020 Other Reaction(s): BRONCHITIS [place] Oil 05/17/2020 Other Reaction(s): BRONCHITIS Paroxetine Hydrochloride 04/03/2009 Penicillins 04/03/2009 Blisters on hands Peanut-Containing Drug Products Abdominal pain Medium 07/24/2015 Gas, bloating Phaseolus 01/10/2024 Other Reaction(s): Bloating, Gas also with green beans documented as of this encounter (statuses as of 01/09/2025) Medications Albuterol Sulfate HFA 108 (90 Base) [...] 30GIndications:DM type 2, 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% ([facility]) TEST BLOOD SUGAR ONCE DAILY DIRECTED DX E11.9 100 Each 3 01/03/20 24 Active OneTouch Verio In Vitro Strip (Glucose Blood)Indications: DM type 2, 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% ([facility]) Test blood sugar once daily [...] 90 Tablet 1 04/21/20 24 Active Nystatin 009484 UNIT/GM External CreamIndications:D ermatitis Apply topically to [...] as of this encounter (statuses as of 01/09/2025) Active Problems Problem Noted Date Diagnosed Date [...] as of this encounter (statuses as of 01/09/2025) Resolved Problems Problem Noted Date Diagnosed Date [...] persistent 09/23/2012 09/23/2012 Genetic Sleep Disorder Resea [facility] Other*[id number] 09/12/2012 06/25/2016 ADVANCE DIRECTIVE INFORMATION 06/11/2011 10/02/2024 [...] as of this encounter (statuses as of 01/09/2025) Immunizations Name Administration Dates Next Due COVID-19 [...] 1:20 PM EST Office Visit Family Medicine [address] [place] [phone] Lilo Ba MD [address] [place] [address] [place] [phone] 01/26/2025 11:20 AM EST Office Visit Family [address] [phone] Lilo Ba MD [address] [place] [address] [place] [phone] 02/06/2025 12:30 PM EDT Office Visit [facility] [place] [address] [facility] [address] Lashaun Moore PA-C [address] [facility] [place] [address] 03/12/2025 2:00 PM EDT Office Visit Family [address] [phone] Lilo Ba MD [address] [place] [address] [place] [phone] 05/18/2025 3:30 PM EDT Office Visit Cardiology, [facility] [address] [place] [address] Francheska Ponce PAVinay [address] [place] [address] 12/04/2025 3:30 PM EST Office Visit Cardiology, [facility] [address] [place] [address] Chace Peacock DO [address] [place] [address] Pending Results Name Type Priority Associated Diagnoses Date /Time COMPREHENSIVE METABOLIC PANEL Lab Routine Benign hypertension with CKD (chronic kidney disease) stage III ([facility]) 01/09/2025 2:31 PM EST HEMOGLOBIN A1C Lab Routine Type 2 diabetes mellitus with other diabetic ophthalmic complication ([facility]) 01/09/2025 2:31 PM EST Health Maintenance Due Date Last [...] Screening 10/18/2025 10/18/2024 CKD HGB USE SMARTSET 79327 10/27/202510/27, 10/27/2024, 09/11/2024, Additional history exists CKD PHOS USE SMARTSET 29321 10/27/202509/30, 09/16/2020, 08/29/2019 DXA Scan 05/31/2026 05/31/2019, [...] stage I through stage IV, or unspecified 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) Dysuria documented in this encounter Care Teams School Admissions Representative Relationship Specialty Start Date End Date Lilo Ba MD [address] [place] [address] [place] [phone] PCP - General Family Medicine 10/23/24 documented as of this encounter
--- OUTSIDE RECORDS SUMMARY | 2025-04-01 17:35 | External Medical Summary | Summary of Care ---
Author Name Unknown Organization [facility] Address [address] [place] [address] Phone [phone] Care Team Providers Care Zipper Trimmer Hand Name Role Phone Lilo Ba MD Primary Care Pr ovider Encounter Details Date Type Department Care Team (Late st Contact Info) Description 12/28/2024 Result Scan Unspecified Department <No scans attached> Allergies Active Allergy Reactions Criticality Noted Date Comments Brassica Oleracea 05/17/2020 Other Reaction(s): Gas Crab (Diagnostic) 04/05/2018 Crab Extract 05/17/2020 Other Reaction(s): diarrhea Food (See Comments) 07/24/2015 Broccoli, beans, cauliflower - cause gas Grapefruit, oranges - cause bronchitis - positive skin test Grapefruit Extract 05/17/2020 Other Reaction(s): BRONCHITIS [place] Oil 05/17/2020 Other Reaction(s): BRONCHITIS Paroxetine Hydrochloride 04/03/2009 Penicillins 04/03/2009 Blisters on hands Peanut-Containing Drug Products Abdominal pain Medium 07/24/2015 Gas, bloating Phaseolus 01/10/2024 Other Reaction(s): Bloating, Gas also with green beans documented as of this encounter (statuses as of 01/15/2025) Medications Albuterol Sulfate HFA 108 (90 Base) [...] 20 MG Oral Tablet (Lipitor)Indicatio ns:Atherosclerosis of [place] coronary artery of [place] heart without angina pectoris,Paroxysma l atrial fibrillation (HCC),Dyslipidemia , goal LDL below 100 take one pill by mouth at bedtime 90 Tablet 1 04/21/20 24 Active Potassium Chloride Krystal ER 20 MEQ Oral Tablet Extended Release (Klor-Con M20) Take 1 Tablet by mouth in the morning. 90 Tablet 1 04/21/20 24 Active Nystatin 130307 UNIT/GM External CreamIndications:D ermatitis Apply topically to [...] blood pressure less than 140/90,Atheroscler osis of [place] coronary artery of [place] heart without angina pectoris,Paroxysma l atrial fibrillation (HCC) Take 1 Tablet by mouth in the morning and 1 Tablet before bedtime. 180 Tablet 1 12/09/19 25 Active documented as of this encounter (statuses as of 01/15/2025) Active Problems Problem Noted Date Diagnosed Date [...] 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 Coronary artery disease invo lving [place] coronary artery of [place] heart without angina pectoris Adjustment disorder with depressed mood documented as of this encounter (statuses as of 01/15/2025) Resolved Problems Problem Noted Date Diagnosed Date [...] persistent 09/23/2012 09/23/2012 Genetic Sleep Disorder [facility] Other*[id number] 09/12/2012 06/25/2016 ADVANCE DIRECTIVE INFORMATION 06/11/2011 10/02/2024 [...] as of this encounter (statuses as of 01/15/2025) Immunizations Name Administration Dates Next Due COVID-19 [...] 01/23/2025 1:20 PM EST Office Visit Family [address] [place] [id number] Lilo Ba MD [address] [place] [address] [place] [phone] 01/26/2025 11:20 AM EST Office Visit Family [address] [phone] Lilo Ba MD [address] [place] [address] [place] [phone] 02/06/2025 12:30 PM EDT Office Visit Neurology [facility] [place] [address] [facility] [place] [address] Lashaun Moore PA-C [address] [place] [address] 03/12/2025 2:00 PM EDT Office Visit Family [address] [phone] Lilo Ba MD [address] [place] [address] [place] [phone] 05/18/2025 3:30 PM EDT Office Visit Cardiology, [facility] [address] [place] [address] Francheska Ponce PA-C [address] [place] [address] 12/04/2025 3:30 PM EST Office Visit Cardiology, [facility] [address] [place] [address] Chace Peacock DO [address] [place] [address] Health Maintenance Due Date Last Done Comments Zoster Vaccines (1 of 2) 1989 Adult Wellness Visit 07/24/2016 07/24/2015 Diabetic Foot Exam 04/28/2024 04/28/2023, 0 03/12/2022, 04/01/2021, Additional history exists Diabetic Eye Exam 09/03/2024 09/03/2023, , 09/03/2023, Additional history exists Albumin/Creatinine Ratio 11/17/202411/17/2 023, 11/17/2022, 11/13/2021, Additional history exists COVID-19 Vaccine ( season) 2025 09/11/2024, 11/17/2023, 12/02/2021, Additional history exists HbA1c 07/09/2025 01/09/2025, 08/29, 11/17/2023, Additional history exists TSH 09/11/2025 09/11/2024, 11/29, 04/28/2023, Additional history exists Depression Screening 10/18/2025 10/18/2024 CKD HGB USE SMARTSET 98030 10/27/202510/27, 10/27/2024, 09/11/2024, Additional history exists CKD PHOS USE SMARTSET 56711 10/27/2025/07/2024, 09/16/2020, 08/29/2019 DXA Scan 05/31/2026 05/31/2019, 07/15/2012 [...] Date/Time Associated Diagnosis Comments OUTSIDE LAB RESULTS 12/28/2024 documented in this encounter Results * OUTSIDE LAB RESULTS (12/28/2024) 12/28/2024 us No Physician Data Unknown LABORATORY Final Result documented in this encounter Care Teams Zipper Trimmer Hand Relationship Specialty Start Date End Date Lilo Ba MD [address] [place] [address] [place] [phone] PCP - General Family Medicine 10/23/24 documented as of this encounter
--- OUTSIDE RECORDS SUMMARY | 2025-04-01 17:35 | External Medical Summary | Summary of Care ---
Author Name Unknown Organization [facility] Address [address] [place] [address] Phone [phone] Care Team Providers Care Lube Attendant Name Role Phone Lilo Ba MD Primary Care Pr ovider Reason for Referral * Evaluate & Treat - Unlimited Visits (Within 10 days (routine)) - Authorized Specialty Diagnoses / Procedures Referred By Contac t Referred To Contact HOME CARE / Home Care Diagnoses Requires assistance with activities of daily living (ADL) Lilo Ba MD [address] [place] [address] [place] [phone] Phone: tel: fax: Referral ID Status Reason Start Date Expiration Date Visits Requested Visits Authorized [id number] Authorized Specialty Services Required 01/09/2025 999 999 Question Answer Referral Priority Within 10 days (routine) Where should this appointment be scheduled? Mitali Comments Documentation of Cxlr-hb-Cteu Encounter Addendum Patient Name: Yudelka Palacios I certify that this patient is under my care and that I, or a nurse practitioner or physician's pharmacy technician assistant working with me, had a [id number] encounter that meets the physician cefk-zr-vyzz encounter requirements with this patient on: 01/09/25 The encounter with the patient was in whole, or in part, for the following medical condition, which is the primary reason for home health care (List medical condition): ADL dysfunction I certify that, based on my findings, the following services are medically necessary home health services: Nursing and Physical Therapy, health aide To provide the following care/treatments: (All hospitalists not following the patient after discharge should complete this section): medication management, monitor blood pressure, help with ADLs Primary Care Physician to follow home care plan of care after discharge: Mark My clinical findings support the need for the above services because: difficulty caring for herself Further, I certify that my clinical findings support that this patient is homebound (i.e. Absences from home require considerable and taxing effort and are for medical reasons or [facility] or infrequently or of short duration when for other reason) because: Difficulty leaving the home without assistance/aides Physician Signature: Date of Signature: Physician Printed Name: Lilo aMi MD Reason for Visit * Reason Onset Date Comments Hospital Follow-Up Hospital Follow-Up 01/09/2025 Encounter Details Date Type Department Care Team (Late st Contact Info) Description 01/09/2025 2:00 PM EST Office Visit Family Medicine [address] [place] [place] [address] Lilo Ba MD [address] [place] [address] [place] [phone] 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)*; 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); Paroxysmal atrial fibrillation (HCC); Personal history of subdural hematoma; Hospital discharge follow-up; Requires assistance with activities of daily living (ADL); Dysuria Allergies Active Allergy Reactions Criticality Noted Date Comments Brassica Oleracea 05/17/2020 Other Reaction(s): Gas Crab (Diagnostic) 04/05/2018 Crab Extract 05/17/2020 Other Reaction(s): diarrhea Food (See Comments) 07/24/2015 Broccoli, beans, cauliflower - cause gas Grapefruit, oranges - cause bronchitis - positive skin test Grapefruit Extract 05/17/2020 Other Reaction(s): BRONCHITIS [place] Oil 05/17/2020 Other Reaction(s): BRONCHITIS Paroxetine Hydrochloride [...] 2, 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% ([facility]) TEST BLOOD SUGAR ONCE DAILY DIRECTED DX E11.9 100 Each 3 Active OneTouch Verio In Vitro Strip (Glucose Blood)Indications :DM type 2, 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% ([facility]) Test blood sugar once daily [...] the morning. 90 Capsule 3 024 Active Aspirin 81 MG Oral Tablet Delayed Release (Ecotrin Low Strength) Take 1 Tablet by mouth in the morning. 100 Tablet 3 024 Active Montelukast Sodium 10 MG Oral Tablet (Singulair)Indica tions:Other seasonal allergic rhinitis Take 1 Tablet by mouth at bedtime. 90 Tablet 1 024 Active Atorvastatin Calcium 20 MG Oral Tablet (Lipitor)Indicati ons:Atheroscleros is of [place] coronary artery of [place] heart without angina pectoris,Paroxysm al atrial fibrillation (HCC),Dyslipidemi a, goal LDL below 100 take one pill by mouth at bedtime 90 Tablet 1 024 Active Potassium Chloride Krystal ER 20 MEQ Oral Tablet Extended Release (Klor-Con M20) Take 1 Tablet by mouth in the morning. 90 Tablet 1 024 Active Nystatin 300818 UNIT/GM External CreamIndications: Dermatitis Apply topically to [...] DAILY NEEDED FOR LAXATIVE EFFECT 024 Active Metoprolol Tartrate 25 MG Oral Tablet (Lopressor)Indica tions:Essential hypertension with goal blood pressure less than 140/90,Atheroscle rosis of [place] coronary artery of [place] heart without angina pectoris,Paroxysm al atrial fibrillation (HCC) Take 1 Tablet by mouth in the morning and 1 Tablet before bedtime. 180 Tablet 1 025 Active amLODIPine Besylate 5 MG Oral Tablet (Norvasc) Take 2 Tablets by mouth in the morning. 025 Active Chlorthalidone 25 MG Oral Tablet (Hygroton) Take 2 Tablets by mouth in the morning. 90 Tablet 2 025 Active hydrALAZINE HCl 50 MG Oral Tablet (Apresoline) Take 1 Tablet by mouth in the morning and 1 Tablet at noon and 1 Tablet before bedtime. 270 Tablet 3 025 Active triamcinolone acetonide (ARISTOCORT) 0.1 % creamIndications: Intrinsic eczema Apply topically to affected area 2 times a day. To affected area. 15 g 5 020 2024 Discontinued Zinc 50 MG Oral Tablet Take 1 Tablet by mouth in the morning. 90 Tablet 3 024 2024 Discontinued Ramelteon 8 MG Oral Tablet (Rozerem)Indicati ons:Insomnia, unspecified type TAKE 1 TABLET BY MOUTH EVERYDAY AT BEDTIME 90 Tablet 1 025 2024 Discontinued Chlorthalidone 25 MG Oral Tablet (Hygroton) Take 2 Tablets by mouth in the morning. 025 2024 Discontinued(R efill) Ciprofloxacin HCl 500 MG Oral Tablet (Cipro) Take 1 Tablet by mouth in the morning and 1 Tablet before bedtime. X 5 days. 025 2024 Discontinued hydrALAZINE HCl 50 MG Oral Tablet (Apresoline) Take 1 Tablet by mouth in the morning and 1 Tablet at noon and 1 Tablet before bedtime. 025 2024 Discontinued documented as of this encounter [...] 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 Coronary artery disease invo lving [place] coronary artery of [place] [...] Disorder [facility] Other*[id number] 09/12/2012 06/25/2016 ADVANCE DIRECTIVE INFORMATION 06/11/2011 10/02/2024 [...] Sign Reading Time Taken Comments Blood Pressure 106/56 01/09/2025 1:44 PM EST Pulse 59 01/09/2025 1:44 PM EST Temperature 35.8 °C (96.4 °F) 01/09/2025 1:44 PM ES T Respiratory Rate - - Oxygen Saturation 95% 01/09/2025 1:44 PM EST Inhaled Oxygen Concentration - - Weight 59.6 kg (131 lb 8 oz) 01/09/2025 1:44 PM EST Height 152.4 cm (5') 01/09/2025 1:44 PM EST Body Mass Index 25.68 01/09/2025 1:44 PM EST documented in this encounter Patient Instructions * Patient Instructions* Lilo Ba MD - 01/09/2025 2:02 PM EST Taking Medicine Safely Medicine is given [...] street drugs, herbs, supplements, or even some jkca-cfj-kdabgln medicines can be harmful. Talk to your [...] to get rid of medicine: Call your [facility] or [facility]'s household trash and recycling service and ask if a drug take-back program is available in your community. Call your local pharmacy and ask the right way to get rid of the medicine. Go to http://www.fda.gov/ForConsumers/ConsumerUpdates/hgn507353 to learn how to get rid of [...] brand-name medicine, unless their doctor says otherwise. © 6645-0470 Darya Qureshi, [address] [place] [address], [place] [address]. All rights reserved. This information is not intended as a substitute for professional medical care. Always follow your healthcare professional's instructions. documented in this encounter Progress Notes * Lilo Ba MD - 01/09/2025 1:56 PM EST SUBJECTIVE: Yudelka Palacios is a 84 year old female. Chief Complaint Patient presents with Hospital Follow-Up Hospital Follow-Up Recent Admission: Patient was recently admitted to [facility] 12/28 for Klebsiella UTI and hypertensive urgency. The date ofdischarge was 12/30. Discharge report received and reviewed. Seen by the home nurse and found to have persistently high blood pressures in the 200s systolic, sosent to the hospital. Treated with cipro, refilled amlodipine, losartan, chlorthalidone, hydralazine HPI: Finished cipro course. Still doesn't feel well and having headaches once in awhile. Doesn't check BP at home. No lightheaded, dizzy, chest pains. Does have home nursing coming in for medication management. Ambulates well with the walker per patient. Did have PT evaluation at home. No falls since the one that caused the subdural. Notes difficulty getting her ADLs accomplished including bathing herself. Doesn't have good grab bars in the shower. Continues to have some urinary symptoms- burning and urgency Patient Active Problem List Diagnosis Acquired hypothyroidism Gastroesophageal reflux disease with esophagitis 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 Coronary artery disease involving [place] coronary artery of [place] heart without angina pectoris Primary hypertension Sleep apnea, obstructive POAG (primary open-angle glaucoma) Adjustment disorder with depressed mood DDD (degenerative disc disease), cervical CURTIS (stress urinary incontinence, female) Paroxysmal atrial fibrillation (HCC) Dyslipidemia, goal LDL below 70 Mild persistent asthma without complication Rhinitis, nonallergic DM type 2, 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% ([facility]) BMI 31.0-31.9,adult Type 2 diabetes mellitus with other diabetic ophthalmic complication ([facility]) Benign hypertension with CKD (chronic kidney disease), stage II Central stenosis of spinal canal Stage 3 chronic kidney disease (HCC) History of placement of stent in LAD coronary artery Benign hypertension with CKD (chronic kidney disease) stage III ([facility]) Current Outpatient Medications Medication Sig [...] mouth in the morning. 90 Capsule 3 Aspirin 81 MG Oral Tablet Delayed Release (Ecotrin Low Strength) Take 1 Tablet by mouth in the morning. 100 Tablet 3 Montelukast Sodium 10 MG Oral Tablet (Singulair) Take 1 Tablet by mouth at bedtime. 90 Tablet 1 Atorvastatin Calcium 20 MG Oral Tablet (Lipitor) take one pill by mouth at bedtime 90 Tablet 1 Potassium Chloride Krystal ER 20 MEQ Oral Tablet Extended Release (Klor-Con M20) Take 1 Tablet by mouth in the morning. 90 Tablet 1 Levothyroxine Sodium 100 MCG [...] DAY IN THE MORNING 90 Tablet 1 Magnesium 400 MG Oral Tablet Take 1 [...] Complex/FA/Vit C Oral Tablet Take by mouth. Polyethylene Glycol 3350 17 GM Oral Packet (Miralax) TAKE 17 GM MIXED IN FLUIDS ORALLY DAILY NEEDED FOR LAXATIVE EFFECT Metoprolol Tartrate 25 MG Oral Tablet (Lopressor) Take 1 Tablet by mouth in the morning and 1 Tablet before bedtime. 180 Tablet 1 amLODIPine Besylate 5 MG Oral Tablet (Norvasc) Take 2 Tablets by mouth in the morning. Chlorthalidone 25 MG Oral Tablet (Hygroton) Take 2 Tablets by mouth in the morning. triamcinolone acetonide (ARISTOCORT) 0.1 % cream Apply topically to affected area 2 times a day. Toaffected area. (Patient not taking: Reported on 01/09/2025) 15 g 5 guaiFENesin ER 600 MG Oral Tablet Extended Release 12 Hour (Mucinex) Take 1 Tablet by mouth 2 timesa day as needed for Congestion. Take with plenty of water. Do not cut, crush or chew 40 Tablet 2 Zinc 50 MG Oral Tablet Take 1 Tablet by mouth in the morning. (Patient not taking: Reported on 01/09/2025) 90 Tablet 3 Nystatin 721798 UNIT/GM External Cream Apply topically to affected area 2 times a day. To affacted area for two weeks. 60 g 2 Ramelteon 8 MG Oral Tablet (Rozerem) TAKE 1 TABLET BY MOUTH EVERYDAY AT BEDTIME (Patient not taking: Reported on 01/09/2025) 90 Tablet 1 Ciprofloxacin HCl 500 MG Oral Tablet (Cipro) Take 1 Tablet by mouth in the morning and 1 Tablet before bedtime. X 5 days. (Patient not taking: Reported on 01/09/2025) hydrALAZINE HCl 50 MG Oral Tablet (Apresoline) Take 1 Tablet by mouth in the morning and 1 Tablet at noon and 1 Tablet before bedtime. (Patient not taking: Reported on 01/09/2025) No current facility-administered medications for this visit. Current and discharge medications have been reconciled. Review of patient's allergies indicates: Allergen Reactions Peanut-Containing Drug Products Abdominal pain Gas, bloating Brassica Oleracea Other Reaction(s): Gas Crab (Diagnostic) Crab Extract Other Reaction(s): diarrhea Food (See Comments) Broccoli, beans, cauliflower - cause gas Grapefruit, oranges - cause bronchitis - positive skin test Grapefruit Extract Other Reaction(s): BRONCHITIS [place] Oil Other Reaction(s): BRONCHITIS Paxil [Paroxetine Hydrochloride] Pcn [Penicillins] Blisters on hands Phaseolus Other Reaction(s): Bloating, Gas also with green beans OBJECTIVE: BP 106/56 | Pulse 59 | Temp 96.4 °F (35.8 °C) (Infrared ) | Ht 5' (1.524 m) | Wt 131 lb 8 oz (59.6 kg) | SpO2 95% | BMI 25.68 kg/m² | BSA 1.59 m² PHYSICAL EXAM: BP 106/56 | Pulse 59 | Temp 96.4 °F (35.8 °C) (Infrared ) | Ht 5' (1.524 m) | Wt 131 lb 8 oz (59.6 kg) | SpO2 95% | BMI 25.68 kg/m² | BSA 1.59 m² General: alert, healthy, and no distress Head: Normocephalic, No masses, lesions, tenderness or abnormalities Neck: supple, no adenopathy, thyroid normal size, non-tender, without nodularity Lymph: no palpable lymphadenopathy Heart: irregularly irregular rate & rhythm, no murmur, and no gallops Lungs: chest symmetric with normal AP diameter, no chest deformities noted, no chest wall tenderness, lungs clear to auscultation Abdomen: abdomen soft, non-tender, normal bowel sounds, and no masses or organomegaly Extremities: less than 2 second capillary refill, no joint deformities, effusion, or inflammation ASSESSMENT: 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) [facility]net hospitalization for hypertensive urgency. BP good today, will refill meds, but will check her kidney function to ensure those are ok. If able to decrease meds, rec chlorthalidone or hydralzinedecrease. 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 Irregular today but rate controlled Personal history of subdural hematoma Headache likely related to head trauma a few months ago and subdural. Will likely take time to resolve Hospital discharge follow-up - DISCH MED RECON CUR MED LIS Requires assistance with activities of daily living (ADL) Difficulty with bathing herself and getting around. Will try to get a home health aide if she wouldqualify - HOME HEALTH REFERRAL OP Dysuria - URINALYSIS, REFLEX TO MICROSCOPIC; Future; Expected date: 01/09/2025 Other orders - Chlorthalidone 25 MG Oral Tablet (Hygroton); Take 2 Tablets by mouth in the morning. - hydrALAZINE HCl 50 MG Oral Tablet (Apresoline); Take 1 Tablet by mouth in the morning and 1 Tablet at noon and 1 Tablet before bedtime. PLAN: Follow up in 2 week(s). I spent a total of 30-39 minutes (exact time 38 mins) minutes on the date of service in preparation, delivery, and documentation of the care provided to Yudelka Palacios excluding any time spent in performance of separately billed services. Lilo Mai MD documented in this encounter Nursing Notes * Liat Duran CMA - 01/09/2025 1:44 PM EST Hospital f/u. Report home health came to see her /Wednesday was running [id number] and home health sent her to hospital from there was in for 4-5 days until they could get the number down documented in this encounter Plan of Treatment Upcoming Encounters Date Type Department Care Team (Late st Contact Info) Description 01/23/2025 1:20 PM EST Office Visit Family Medicine [facility] [place] [phone] Lilo Ba MD [address] [place] [address] [place] [phone] 01/26/2025 11:20 AM EST Office Visit Family [address] [place] [phone] Lilo Ba MD [address] [place] [address] [place] [phone] 02/06/2025 12:30 PM EDT Office Visit [facility]rology [facility] [address] [facility] [address] Lashaun Moore PA-C [address] [facility] [place] [phone] 03/12/2025 2:00 PM EDT Office Visit Family [address] [place] [phone] Lilo Ba MD [address] [place] [address] [place] [phone] 05/18/2025 3:30 PM EDT Office Visit Cardiology, [facility] [address] [place] [address] Francheska Ponce PA-C [address] [place] [phone] 12/04/2025 3:30 PM EST Office Visit Cardiology, [facility] [address] [place] [address] Chace Peacock DO [address] [place] [phone] Pending Results Name Type Priority Associated Diagnoses Date /Time COMPREHENSIVE METABOLIC PANEL Lab Routine 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) 01/09/2025 2:31 PM EST HEMOGLOBIN A1C Lab Routine 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) 01/09/2025 2:31 PM EST Scheduled Orders Name Type Priority Associated Diagnoses Orde r Schedule COMPREHENSIVE METABOLIC PANEL Lab Routine 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) Expected: 01/09/2025 (Approximate), Expires: 02/06/2026 HEMOGLOBIN A1C Lab Routine 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) Expected: 01/09/2025 (Approximate), Expires: 01/09/2026 ALBUMIN / CREATININE RATIO, URINE Lab Routine 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) Expected: 01/09/2025, Expires: 01/09/2026 URINALYSIS, REFLEX TO MICROSCOPIC Lab Routine Dysuria Expected: 01/09/2025, Expires: 01/09/2026 Scheduled Referrals Name Type Priority Associated Diagnoses Orde r Schedule HOME HEALTH REFERRAL OP Referral Within 10 days (routine) Requires assistance with activities of daily living (ADL) Ordered: 01/09/2025 Health Maintenance Due Date Last Done Comments [...] Screening 10/18/2025 10/18/2024 CKD HGB USE SMARTSET [id number] 10/27/202510/27, 10/27/2024, 09/11/2024, Additional history exists CKD PHOS USE SMARTSET [id number] 10/27/202509/30, 09/16/2020, 08/29/2019 DXA Scan 05/31/2026 05/31/2019, [...] mellitus with other diabetic ophthalmic complication (HCC) Paroxysmal atrial fibrillation (HCC) Atrial fibrillation Personal history of subdural hematoma Personal history of other diseases of circulatory system Hospital discharge follow-up Other follow-up examination Requires assistance with activities of daily living (ADL) Dysuria documented in this encounter Care Teams Lube Attendant Relationship Specialty Start Date End Date Lilo Ba MD [address] [place] [address] [place] [phone] PCP - General Family Medicine 10/23/24 documented as of this encounter"
--- OUTSIDE RECORDS SUMMARY | 2025-04-01 17:35 | External Medical Summary | Summary of Care ---
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 Name Role Phone Lilo Ba MD Primary Care Pr ovider Reason for Visit * Reason Comments Hospital Follow-Up Encounter Details Date Type Department Care Team (Late st Contact Info) Description 02/06/2025 12:30 PM EDT Office Visit Neurology [facility] [address] [address] Lashaun Moore PA-C [address] [facility] [place] [address] History of subdural hematoma*; History of cardioembolic stroke Allergies Active Allergy Reactions Criticality Noted Date Comments Brassica Oleracea 05/17/2020 Other Reaction(s): Gas Crab (Diagnostic) 04/05/2018 Crab Extract 05/17/2020 Other Reaction(s): diarrhea Food (See Comments) 07/24/2015 Broccoli, beans, cauliflower - cause gas Grapefruit, oranges - cause bronchitis - positive skin test Grapefruit Extract 05/17/2020 Other Reaction(s): BRONCHITIS [place] Oil 05/17/2020 Other Reaction(s): BRONCHITIS Paroxetine Hydrochloride 04/03/2009 Penicillins 04/03/2009 Blisters on hands Peanut-Containing Drug Products Abdominal pain Medium 07/24/2015 Gas, bloating Phaseolus 01/10/2024 Other Reaction(s): Bloating, Gas also with green beans documented as of this encounter (statuses as of 02/06/2025) Medications Albuterol Sulfate HFA 108 (90 Base) [...] 30GIndications:DM type 2, 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% ([facility]) TEST BLOOD SUGAR ONCE DAILY DIRECTED DX E11.9 100 Each 3 Active OneTouch Verio In Vitro Strip (Glucose Blood)Indications :DM type 2, 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% ([facility]) Test blood sugar once daily [...] MG Oral Tablet (Lipitor)Indicati ons:Atheroscleros is of ione coronary artery of ione heart without angina pectoris,Paroxysm al atrial fibrillation (HCC),Dyslipidemi a, goal LDL below 100 take one pill by mouth at bedtime 90 Tablet 1 024 Active Potassium Chloride Krystal ER 20 MEQ Oral Tablet Extended Release (Klor-Con M20) Take 1 Tablet by mouth in the morning. 90 Tablet 1 024 Active Nystatin 277658 UNIT/GM External CreamIndications: Dermatitis Apply topically to [...] FLUIDS ORALLY DAILY NEEDED FOR LAXATIVE EFFECT Active Metoprolol Tartrate 25 MG Oral Tablet (Lopressor)Indica tions:Essential hypertension with goal blood pressure less than 140/90,Atheroscle rosis of ione coronary artery of ione heart without angina pectoris,Paroxysm al atrial fibrillation (HCC) Take 1 Tablet by mouth in the morning and 1 Tablet before bedtime. 180 Tablet 1 Active amLODIPine Besylate 5 MG Oral Tablet (Norvasc) Take 2 Tablets by mouth in the morning. 025 Active Chlorthalidone 25 MG Oral Tablet (Hygroton) Take 2 Tablets by mouth in the morning. 90 Tablet 2 Active hydrALAZINE HCl 50 MG Oral Tablet (Apresoline) Take 1 Tablet by mouth in the morning and 1 Tablet at noon and 1 Tablet before bedtime. 270 Tablet 3 Active Sulfamethoxazole- Trimethoprim 800-160 MG Oral Tablet (Bactrim DS)Indications:UT I symptoms Take 1 Tablet by mouth in the morning and 1 Tablet before bedtime. Do all this for 7 days. Until gone. 14 Tablet 024 2024 Discontinued Furosemide 20 MG Oral Tablet (Lasix) Take 1 Tablet by mouth in the morning for 7 days. 7 Tablet 1 2024 Discontinued documented as of this encounter (statuses as of 02/06/2025) Active Problems Problem Noted Date Diagnosed Date [...] 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 Coronary artery disease invo lving ione coronary artery of ione heart without angina pectoris Adjustment disorder with depressed mood documented as of this encounter (statuses as of 02/06/2025) Resolved Problems Problem Noted Date Diagnosed Date [...] persistent 09/23/2012 09/23/2012 Genetic Sleep Disorder [facility] Other*[id number] 09/12/2012 06/25/2016 ADVANCE DIRECTIVE INFORMATION 06/11/2011 10/02/2024 [...] as of this encounter (statuses as of 02/06/2025) Immunizations Name Administration Dates Next Due COVID-19 [...] Sign Reading Time Taken Comments Blood Pressure 122/58 02/06/2025 12:27 PM EDT Pulse 52 02/06/2025 12:27 PM EDT Temperature 36.7 °C (98 °F) 02/06/2025 12:27 PM EDT Respiratory Rate 16 02/06/2025 12:27 PM EDT Oxygen Saturation 98% 02/06/2025 12:27 PM EDT Inhaled Oxygen Concentration - - Weight 62.9 kg (138 lb 9.6 oz) 02/06/2025 12:27 PM EDT Height - - Body Mass Index 27.07 01/19/2025 2:33 PM EST documented in this encounter Progress Notes * Lashaun Moore PA-C - 02/06/2025 12:30 PM EDT HISTORY & PHYSICAL EXAMINATION - NEUROLOGY Name: Yudelka Palacios Date: 02/05/2025 Time: 3:44 PM Chief Complaint Patient presents with Hospital Follow-Up SUBJECTIVE: Yudelka Palacios is a 84 year old female with history of DM2, HTN, DEMARIO not on CPAP, paroxysmal atrial fibrillation and cardioembolic stroke who presents today for hospital discharge follow- up. History of paroxysmal atrial fibrillation. MRI in November 2023 noted scattered small acute infarctsconsistent with embolic etiology. Carotid US mild to moderate atherosclerotic plaque without hemodynamically significant stenosis. Eliquis initiated. Had follow up w/ outpatient Neurology January 2024.CTA head/neck unremarkable. Present[facility]12[facility]24 following a fall out of bed with head injury. CT head noted subdural hematoma. Repeat CT scan was stable. Per Cardiology, discontinue Eliquis indefinitely due to advanced age and fall risk. Continue ASA 81mg daily. Today states since her strokes she has residual numbness of the left hand, heavy feeling of the left foot, and word-finding difficulty. Intermittent numbness and tingling of her right hand off and onfor at least 1 year. Twice weekly dull aching pain at the base of her head, resolves with Tylenol. She has a history of sleep apnea since the 90s and was wearing a CPAP up until she had stroke. Unclea r why she stopped. She does describe difficulty sleeping. Completed Speech Therapy. No tobacco or alcohol use. She lives at home with her partner. No recent falls Allergies: Peanut-containing drug products, Brassica oleracea, Crab (diagnostic), Crab extract, Food (see comments), Grapefruit extract, [place] oil, Paxil [paroxetine hydrochloride], Pcn [penicillins], and Phaseolus Problem list: Patient Active Problem List Diagnosis Acquired hypothyroidism Gastroesophageal reflux disease with esophagitis 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 Coronary artery disease involving ione coronary artery of ione heart without angina pectoris Primary hypertension Sleep apnea, obstructive POAG (primary open-angle glaucoma) Adjustment disorder with depressed mood DDD (degenerative disc disease), cervical CURTIS (stress urinary incontinence, female) Paroxysmal atrial fibrillation ([facility]) Dyslipidemia, goal LDL below 70 Mild persistent asthma without complication Rhinitis, nonallergic DM type 2, 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% ([facility]) BMI 31.0-31.9,adult Type 2 diabetes mellitus with other diabetic ophthalmic complication ([facility]) Benign hypertension with CKD (chronic kidney disease), stage II Central stenosis of spinal canal Stage 3 chronic kidney disease ([facility]) History of placement of stent in LAD coronary artery Benign hypertension with CKD (chronic kidney disease) stage III ([facility]) Chronic HFrEF (heart failure with reduced ejection fraction) ([facility]) Past Medical History: Past Medical History: Diagnosis Date Acquired hypothyroidism Acute blood loss anemia 08/22/2019 hgb 7.7, given 2 units Adjustment disorder with depressed mood Allergic rhinitis Asthma Atrial fibrillation ([facility]) 01/08/2013 [facility] Benign hypertension with CKD (chronic kidney disease) stage III ([facility]) Benign hypertension with CKD (chronic kidney disease), stage II 04/01/2021 BMI 36.0-36.9,adult Calcium deposit in bursa, unspecified hip Cataract, nuclear sclerotic, both eyes Central stenosis of spinal canal 06/11/2021 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 Coronary atherosclerosis of ione coronary artery DM type 2, goal HbA1c < 7% ([facility]) 05/07/2018 hgba1c 7.3 Dyslipidemia, goal LDL below [...] set at 12/10 -- start auto BIPAP RC - Rashida Subjective tinnitus 09/23/2012 Symptomatic menopausal or female climacteric states Vasovagal syncope 10/24/2023 [facility] Current Outpatient Medications: Current Outpatient Medications Medication Sig Dispense Refill [...] each nostril every morning. 48 mL 3 Wixela Inhub 250-50 MCG/ACT Inhalation Aerosol [...] mouth in the morning. 90 Tablet 1 Nystatin [id number] UNIT/GM External Cream Apply topically to affected area 2 times a day. To affacted area for two weeks. 60 g 2 Levothyroxine Sodium 100 MCG Oral Tablet (Levoxyl) [...] mouth in the morning. 90 Tablet 2 hydrALAZINE HCl 50 MG Oral Tablet (Apresoline) Take 1 Tablet by mouth in the morning and 1 Tablet at noon and 1 Tablet before bedtime. 270 Tablet 3 OneTouch Delica Lancets 30G TEST BLOOD SUGAR ONCE DAILY DIRECTED DX E11.9 100 Each 3 OneTouch Verio In Vitro Strip (Glucose Blood) Test blood sugar once daily as directed; dx E11.9 100Strip 3 No current facility-administered medications for this visit. Family History: Family History Problem Relation Name Age of Onset Asthma Mother Allergies Mother food allergies Cancer Mother lung Breast Cancer Mother 70 Allergies Father nasal allergies Heart Disorder Father CHF Allergies Brother mold, pollen allergies Endocrine Disorder Brother THYROID Hypertension Son Eye Problems Grandmother (Paternal) glaucoma Breast Cancer Aunt (Maternal) double mastectomy SOCIAL HISTORY: Social History Tobacco Use Smoking status: Never Passive exposure: Past Smokeless tobacco: Never Vaping Use Vaping status: Never Used Substance Use Topics Alcohol use: Yes Comment: once a month Drug use: No REVIEW OF SYSTEMS: As above OBJECTIVE: Physical Examination: BP 122/58 | Pulse 52 | Temp 36.7 °C (98 °F) (Tympanic) | Resp 16 | Wt 62.9 kg (138 lb 9.6 oz) | SpO2 98% | BMI 27.07 kg/m² | BSA 1.63 m² General appearance: healthy, alert, no distress Physical Exam: Constitutional: Appearance normally developed,well nourished,no deformities,well groomed Head and face: normocephalic,atraumatic Respiratory: normal effort,clear to auscultation Cardiovascular: normal heart sounds and regular rhythm Psychiatric: normal judgement and insight,normal mood,normal affect NEUROLOGIC EXAMINATION: Mental Status Exam: alert,oriented to time, place, person,normal recent memory,normal remote memory,normal attention span,normal concentration,normal language,normal fund of knowledge Cranial Nerves: CN 3, 4, 6 - Extra-ocular Movements Intact,no nystagmus CN 5 - Facial sensation intact and equal bilaterally CN 7 - no facial assymetry CN 8 - hearing grossly intact Coordination: normal to [id number] Gait/station: Arises from chair slowly. Slight dragging of left foot. Uses walker. Muscle exam: Arm Right Left Leg Right Left Deltoid 5/5 5/5 Iliopsoas 5/5 5/5 Biceps 5/5 5/5 Triceps 5/5 5/5 Reflexes: Biceps BR Patellar Achilles Right 2+ 2+ 2+ 2+ Left 2+ 2+ 2+ 2+ Sensation: Numbness to light touch L hand. Intact vibration all 4 extremities. LABORATORY: Results for orders placed or performed in visit on 10/27/24 CBC Result Value Ref Range WBC 8.32 4.00 - 10.80 K/uL RBC 4.02 3.85 - 5.15 M/uL HGB 12.4 12.0 - 15.3 g/dL HCT 39.8 36.0 - 45.2 % MCV 99.0 81.5 - 97.5 fL MCH 30.8 27.0 - 34.0 pg MCHC 31.2 32.0 - 36.0 g/dL RDW 15.5 11.5 - 15.5 % PLT 290 140 - 400 K/uL MPV 12.0 6.6 - 11.1 fL nRBCs 0 <=0 /100 WBCs Results for orders placed or performed in visit on 09/11/24 BASIC METABOLIC PANEL Result Value Ref Range BUN 15 6 - 20 mg/dL CREATININE 0.7 0.5 - 1.0 mg/dL EGFR 86 >=60 mL/min SODIUM 142 135 - 146 mmol/L POTASSIUM 4.6 3.5 - 5.1 mmol/L CHLORIDE 105 98 - 107 mmol/L CO2 26 22 - 32 mmol/L ANION GAP 11 7 - 15 mmol/L GLUCOSE 120 70 - 120 mg/dL CALCIUM 10.0 8.4 - 10.2 mg/dL Results for orders placed or performed in visit on 02/23/24 LIPID PANEL WITHOUT DIRECT LDL Result Value Ref Range Triglycerides 180 (H) <=174 mg/dL Cholesterol 132 <200 mg/dL HDL Cholesterol 51 >49 mg/dL Non-HDL Cholesterol 81 <=159 mg/dL LDL Cholesterol 45 <=129 mg/dL Results for orders placed or performed in visit on 09/11/24 LIPID PANEL WITH DIRECT LDL IF TG IS HIGH Result Value Ref Range Triglycerides 128 <=174 mg/dL Cholesterol 136 <200 mg/dL HDL Cholesterol 50 >49 mg/dL Non-HDL Cholesterol 86 <=159 mg/dL LDL Cholesterol 60 <=129 mg/dL Lab Results Component Value Date/Time HEMOGLOBIN A1C - [facility] 5.8 (H) 01/09/2025 02:31 PM HEMOGLOBIN A1C - [facility] 5.7 (H) 09/11/2024 02:15 PM HEMOGLOBIN A1C - [facility] 6.3 (H) 11/17/2023 03:02 PM HEMOGLOBIN A1C - [facility] 6.3 (H) 06/10/2020 03:05 PM HEMOGLOBIN A1C - [facility] 6.0 (H) 08/29/2019 11:47 AM HEMOGLOBIN A1C - [facility] 7.4 (H) 01/23/2019 02:34 PM Lab Results Component Value Date/Time TSH - [facility] 0.34 09/11/2024 02:15 PM TSH - [facility] 1.09 12/14/2023 06:00 AM TSH - [facility] 0.50 04/28/2023 02:28 PM TSH - [facility] 0.51 04/29/2020 10:16 AM TSH - [facility] 0.14 (L) 01/23/2019 02:34 PM TSH - [facility] 0.35 05/07/2017 03:43 PM TSH - OUT[facility]IDE LAB 0.237 (A) 05/07/2018 12:00 AM Review of prior Studies: CT Head 12/28/24 FINDINGS: No acute intracranial hemorrhage, midline shift, intracranial mass, hydrocephalus, territorial ischemia or abnormal extra-axial collection. Resolution of the previously noted small subdural collection adjacent to the right superior frontal lobe. Involutional changes with white matter hypodensities suggestive of chronic vascular ischemic disease, unchanged. Partially empty sella The calvarium is intact. The paranasal sinuses, mastoid air cells, and middle ear cavities are clear. IMPRESSION: 1. No acute intracranial abnormality. 2. Resolution of the previously noted subcentimeter subdural collection adjacent to the right cerebral convexit IMPRESSION: Yudelka Palacios is a 84 year old female with history of DM2, HTN, DEMARIO not on CPAP, paroxysmal atrial fibrillation and cardioembolic stroke who presents today for hospital discharge follow- up s/p subdural hematoma. November 2023 sustained several small acute strokes of cardioembolic etiology in the setting of paroxysmal atrial fibrillation. Started Eliquis. Sustained a fall in September and hit her head resultingin subdural hematoma. Due to her advanced age and fall risk, Eliquis was discontinued. She continues on daily baby aspirin. Reviewed Cardiology recommendations. Modifiable stroke risk factors are well controlled. She has a history of sleep apnea but does not currently wear CPAP. Could consider restarting. PLAN: Continue ASA 81mg daily Anticoagulation/A Fib management per Cardiology Risk factors for stroke should continue to be addressed, with the following goals in mind: SBP <130, LDL < 70, HbA1c < 7%, adequate hydration, 3-5 days of moderate intensity exercise, DEMARIO management as applicable. Follow up as needed. I spent a total of 40 minutes on the date of service in preparation, delivery,and documentation of the care provided to Yudelka Palacios. Case discussed with Dr. Wellington. Lashaun Moore PA-C, Neurology [address] [place] [id number] 02/06/25 1:20 PM documented in this encounter Nursing Notes * Cherelle Cantu MED ASSIST - 02/06/2025 12:24 PM EDT Chief Complaint Patient presents with Hospital Follow-Up documented in this encounter Plan of Treatment Upcoming Encounters Date Type Department Care Team (Late st Contact Info) Description 03/12/2025 2:00 PM EDT Office Visit Family Medicine [address] [place] [phone] Lilo Ba MD [address] [place] [address] [place] [phone] 05/18/2025 3:30 PM EDT Office Visit Cardiology, [facility] [address] [place] [address] Frnacheska Ponce PA-C [address] [place] [address] 12/04/2025 3:30 PM EST Office Visit Cardiology, [facility] [address] [place] [address] Chace Peacock DO [address] [place] [address] Health Maintenance Due Date Last Done Comments [...] Screening 10/18/2025 10/18/2024 CKD HGB USE SMARTSET 11977 10/27/202510/27, 10/27/2024, 09/11/2024, Additional history exists CKD PHOS USE SMARTSET 78168 10/27/202509/30, 09/16/2020, 08/29/2019 Diabetic Foot Exam 01/19/2026 [...] this encounter Visit Diagnoses Diagnosis History of subdural hematoma- Primary History of cardioembolic stroke documented in this encounter Care Teams 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
--- OUTSIDE RECORDS SUMMARY | 2025-04-01 17:35 | External Medical Summary | Summary of Care ---
Author Name Unknown Organization [facility] Address [address] [place] [address] Phone [phone] Care Team Providers Care Retort Pre Cooker Name Role Phone Lilo Ba MD Primary Care Pr ovider Reason for Visit * Reason Comments Follow Up Encounter Details Date Type Department Care Team (Late st Contact Info) Description 01/19/2025 2:40 PM EST Office Visit Family Medicine [address] [phone] Lilo Ba MD [address] [place] [address] [place] [address] DM type 2, 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% ([facility])*; Type 2 diabetes mellitus with other diabetic ophthalmic complication ([facility]); Benign hypertension with CKD (chronic kidney disease) stage III ([facility]); Paroxysmal atrial fibrillation ([facility]); Chronic heart failure with preserved ejection fraction ([facility]); Postnasal drip Allergies Active Allergy Reactions Criticality Noted Date Comments Brassica Oleracea 05/17/2020 Other Reaction(s): Gas Crab (Diagnostic) 04/05/2018 Crab Extract 05/17/2020 Other Reaction(s): diarrhea Food (See Comments) 07/24/2015 Broccoli, beans, cauliflower - cause gas Grapefruit, oranges - cause bronchitis - positive skin test Grapefruit Extract 05/17/2020 Other Reaction(s): BRONCHITIS [place] Oil 05/17/2020 Other Reaction(s): BRONCHITIS Paroxetine Hydrochloride 04/03/2009 Penicillins 04/03/2009 Blisters on hands Peanut-Containing Drug Products Abdominal pain Medium 07/24/2015 Gas, bloating Phaseolus 01/10/2024 Other Reaction(s): Bloating, Gas also with green beans documented as of this encounter (statuses as of 01/19/2025) Medications Albuterol Sulfate HFA 108 (90 Base) [...] 20 MG Oral Tablet (Lipitor)Indicatio ns:Atherosclerosis of [place] coronary artery of [place] heart without angina pectoris,Paroxysma l atrial fibrillation (HCC),Dyslipidemia , goal LDL below 100 take one pill by mouth at bedtime 90 Tablet 1 04/21/20 24 Active Potassium Chloride Krystal ER 20 MEQ Oral Tablet Extended Release (Klor-Con M20) Take 1 Tablet by mouth in the morning. 90 Tablet 1 04/21/20 24 Active Nystatin 235368 UNIT/GM External CreamIndications:D ermatitis Apply topically to [...] blood pressure less than 140/90,Atheroscler osis of [place] coronary artery of [place] heart without angina pectoris,Paroxysma l atrial fibrillation [...] as of this encounter (statuses as of 01/19/2025) Active Problems Problem Noted Date Diagnosed Date [...] 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 Coronary artery disease invo lving [place] coronary artery of [place] heart without angina pectoris Adjustment disorder with depressed mood documented as of this encounter (statuses as of 01/19/2025) Resolved Problems Problem Noted Date Diagnosed Date [...] persistent 09/23/2012 09/23/2012 Genetic Sleep Disorder Resea [facility] Other*[id number] 09/12/2012 06/25/2016 ADVANCE DIRECTIVE INFORMATION 06/11/2011 10/02/2024 [...] as of this encounter (statuses as of 01/19/2025) Immunizations Name Administration Dates Next Due COVID-19 [...] No 10/18/2024 Does the household have a [facility] source of income? (Household - for ages [...] Reading Time Taken Comments Blood Pressure 110/60 01/19/2025 2:33 PM EST Pulse 63 01/19/2025 2:33 PM EST Temperature - - Respiratory Rate - - Oxygen Saturation 96% 01/19/2025 2:33 PM EST Inhaled Oxygen Concentration - - Weight 59.6 kg (131 lb 6.3 oz) 01/19/2025 2:33 P M EST Height 152.4 cm (5') 01/19/2025 2:33 PM EST Body Mass Index 25.66 01/19/2025 2:33 PM EST documented in this encounter Progress Notes * Mark Hsu, Lilo Bullard MD - 01/19/2025 2:40 PM EST Images from the original note were not included. History of Present Illness Yudelka Palacios is a 84 year old female that presents for Follow Up Here with daughter in law, provides some history. History of Present Illness The patient, with a history of diabetes and hypertension, presents for discussions of DM and HTN. Notes that she feels she gets a little confused in the evenings. She reports losing words during conversation, particularly towards the end of the day. She also reports a postnasal drip, likely due to the current weather. The patient's blood pressure has been well-controlled recently, with readings around 120/80 at home. The patient's diabetes has also been well- managed, with a recent hemoglobin A1c of 5.8. The patient has been taking metformin and has made dietary changes, including switching tosugar-free candy and limiting donut consumption to a couple of times a week. The patient also reports a bruise on her arm, likely due to aspirin use. The patient is due to see an eye doctor and a filenet developer in the near future. Metformin was to be stopped 10/27/24 by ulysses wahl- low sugars and controlled A1C. Has been on it since then. Last A1C 01/09 5.8 Seeing eye doctor next week. Physical Exam BP 110/60 | Pulse 63 | Ht 5' (1.524 m) | Wt 131 lb 6.3 oz (59.6 kg) | SpO2 96% | BMI 25.66 kg/m² |BSA 1.59 m² Physical Exam Vitals and nursing note reviewed. Constitutional: General: She is not in acute distress. HENT: Head: Normocephalic and atraumatic. Mouth/Throat: Mouth: Mucous membranes are moist. Comments: Oropharyngeal drainage present Eyes: Extraocular Movements: Extraocular movements intact. Neck: [...] No edema. Left lower leg: No edema. Feet: Feet: Right foot: Protective Sensation: 10 sites tested. 8 sites sensed. Skin integrity: Skin integrity normal. Toenail Condition: Right toenails are normal. Left foot: Protective Sensation: 10 sites tested. 10 sites sensed. Skin integrity: Skin integrity normal. Toenail Condition: Left toenails are normal. Comments: Thickened flaky skin, no wounds; Decreased sensation on R foot at great toe and base of great toe Lymphadenopathy: Upper Body: Right upper body: No supraclavicular adenopathy. Left upper body: No supraclavicular adenopathy. Skin: General: Skin is warm and dry. Neurological: General: No focal deficit present. Mental Status: She is alert and oriented to person, place, and time. Psychiatric: Mood and Affect: Mood normal. Behavior: Behavior normal. I have reviewed most recent labs BMP results Recent Labs Units 01/09/25 1431 10/27/24 0957 09/11/24 1415 SODIUM - [facility] mmol/L 139 143 142 POTASSIUM - [facility] mmol/L 4.8 4.0 4.6 CHLORIDE - [facility] mmol/L 100 105 105 CO2 - [facility] mmol/L 27 26 26 CREATININE - [facility] mg/dL 0.8 0.7 0.7 BUN - [facility] mg/dL 17 14 15 HbA1c results Recent Labs Units 01/09/25 1431 09/11/24 1415 11/17/23 1502 HEMOGLOBIN A1C - [facility] % 5.8* 5.7* 6.3* Assessment and Plan Assessment & Plan Type 2 Diabetes Mellitus Hemoglobin A1c is 5.8, well below the goal of <8.0 for this age group. Given excellent glycemic control and potential confusion with the medication regimen, discontinue Metformin. Continue monitoring blood glucose levels and maintain a balanced diet. Foot exam done today. Seeing Optho next week for eye exam. Hypertension Blood pressure is well-controlled with recent home readings around 121 and today's office reading at 110/60. Continue current antihypertensive medications. Foot Care in Diabetes Some areas of decreased sensation noted on foot exam, but overall feet are in good condition with no wounds. An upcoming appointment with a filenet developer is scheduled. Continue regular foot care and monitoring. Ensure the filenet developer addresses the corn on the foot during the visit. Cognitive Changes Reports of increased confusion and word-finding difficulty, especially in the late afternoon. Daughter in law feels she's actually quite sharp unless she has a urine infection. No specific intervention discussed. Monitor for progression. General Health Maintenance Continue the current regimen of medications, except for Metformin. Consider using nasal saline spray for postnasal drip. Ensure the eye doctor sends records to primary care after the upcoming appointment. Follow-up appointment is scheduled for 03/12/2025. DM type 2, 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% (HCC) 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) - DIABETES FOOT EXAM 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) Paroxysmal atrial fibrillation (HCC) On ASA, had a subdural bleed after a fall so no higher level anticoag Chronic heart failure with preserved ejection fraction (HCC) Wrap-Up Follow Up: Return for as scheduled in February. | For: as scheduled in February | Check-out note: Ok to cancel appts with me for next week Time: I spent a total of 40-54 minutes (exact time 42 mins) on the date of service in [...] Nursing Notes * Liat Duran CMA - 01/19/2025 2:41 PM EST Pt here to discuss metformin documented in this encounter Miscellaneous Notes * Pt Handout (on AVS) - Lilo Ba MD - 01/19/2025 3:01 PM EST [id number] Diet: Diabetes Food is an important tool that you can use to control diabetes and stay healthy. Eating well-balanced meals in the correct amounts will help you control your blood glucose levels and prevent low blood sugar reactions. It will also help you reduce the health risks or complications of diabetes. Thereis no one specific diet that is right for everyone with diabetes and you can eat a variety of foods. But there are general guidelines to follow. A registered dietitian (RD) will create a tailored diet approach that?s just right for you. They will also help you plan healthy meals and snacks. If you have any questions, call your dietitian for advice. Guidelines for success Talk with your health care provider before starting a diabetes diet or weight loss program. If you haven't talked with a dietitian yet, ask your provider for a referral. The following guidelines can help you succeed: · Select foods from the 6 food groups below. Your dietitian will help you find food choices withineach group. They will also show you serving sizes and how many servings you can have at each meal. o Grains, beans, and starchy vegetables. o Leafy vegetables. o Fruits. o Milk or yogurt. o Meat, poultry, fish, or tofu. o Healthy fats. · Check your blood sugar levels as directed by your provider. Take any medicine as prescribed by your provider. Tell your provider if you are taking any other medicines, supplements, or herbal products. · Learn to read food labels and pick the right portion sizes. · Make a habit of including non-starchy vegetables, whole fruits, legumes, lean proteins, whole grains, nuts and seeds, and low-fat dairy or nondairy alternatives in your diet. · Limit carbohydrates at each meal to help manage your diabetes. The carbohydrates you eat become glucose in the blood. This does not mean you can't eat carbohydrates. Talk with your health care provider about how many grams of carbohydrates are recommended for you at each meal. Eat 3 meals a day at consistent times. Don't skip meals. If you are hungry between meals, eat a small, low-carbohydrate snack. · Talk with your health care provider if you drink alcohol. Alcohol can have unpredictable effectson blood glucose. It's also high in empty calories and can raise a type of blood fat called triglycerides. Drink water or calorie-free diet drinks instead. · Eat less fat to help lower your risk of heart disease. Use nonfat or low-fat dairy products and lean meats. Stay away from fried foods. Use cooking oils that are unsaturated, such as olive, canola, or peanut oil. · Don't eat foods with added salt. Salt can contribute to high blood pressure. This can cause heart disease. People with diabetes already have a risk for high blood pressure and heart disease. Limityour salt to less than 2300 mg/day. One way to do this is by avoiding processed foods. · Stay at a healthy weight. If you need to lose weight, talk with your health care provider about new medicines that can help with weight loss. Cut down on your portion sizes. But never skip meals. Exercise is an important part of any weight management program. Talk with your provider about how you've exercised in the past and the unique exercise challenges you may face if you carry a large amount of extra weight. Discuss an exercise program that?s right for you. · For more information about the best diet plan for you, talk with an RD. To find an RD in your area, contact: o Academy of Nutrition and Dietetics at www.eatright.org o [place] [employer] at www.diabetes.org or 348-634-8016 o Association of Diabetes Care and Education Specialists at www.diabeteseducator.org/ Last Reviewed Date: 2024 00:00:00 © [employer]. All rights reserved. This information is not intended as a substitute for professional medical care. Always follow your healthcare professional's instructions. documented in this encounter Plan of Treatment Upcoming Encounters Date Type Department Care Team (Late st Contact Info) Description 02/06/2025 12:30 PM EDT Office Visit Neurology [facility] [place] [address] [place] [address] Lashaun Moore PA-C [address] [place] [address] 03/12/2025 2:00 PM EDT Office Visit Family Medicine [address] [place] [phone] Lilo Ba MD [address] [place] [address] [place] [phone] 05/18/2025 3:30 PM EDT Office Visit Cardiology, [facility] [address] [place] [address] Francheska Ponce PA-C [address] [place] [address] 12/04/2025 3:30 PM EST Office Visit Cardiology, [facility] [address] [place] [address] Chace Peacock, [address] [place] [address] Health Maintenance Due Date Last Done Comments Zoster Vaccines (1 of 2) 1989 Adult Wellness Visit 07/24/2016 07/24/2015 Diabetic Eye Exam 09/03/2024 09/03/2023, , 09/03/2023, Additional history exists Albumin/Creatinine Ratio 11/17/20242 023, 11/17/2022, 11/13/2021, Additional history exists COVID-19 Vaccine (2023- season) 2025 09/11/2024, 11/17/2023, 12/02/2021, Additional history exists HbA1c 07/09/2025 01/09/2025, 08/29, 11/17/2023, Additional history exists TSH 09/11/2025 09/11/2024, 11/29, 04/28/2023, Additional history exists Depression Screening 10/18/2025 10/18/2024 CKD HGB USE SMARTSET 78624 10/27/202510/27, 10/27/2024, 09/11/2024, Additional history exists CKD PHOS USE SMARTSET 07958 10/27/202509/30, 09/16/2020, 08/29/2019 Diabetic Foot Exam 01/19/2026 [...] 2, 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% (HCC)- Primary 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) 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) Benign hypertensive kidney disease with chronic kidney disease stage I through stage IV, or unspecified Paroxysmal atrial fibrillation (HCC) Atrial fibrillation Chronic heart failure with preserved ejection fraction (HCC) Postnasal drip documented in this encounter Care Teams Retort Pre Cooker Relationship Specialty Start Date End Date Lilo Ba MD [address] [place] [address] [place] [phone] PCP - General Family Medicine 10/23/24 documented as of this encounter"
--- OUTSIDE RECORDS SUMMARY | 2025-04-01 17:35 | External Medical Summary | Summary of Care ---
Author Name Unknown Organization [facility] Address [address] [place] [address] Phone [phone] Care Team Providers Care Supervising Chef Name Role Phone Lilo Ba MD Primary Care Pr ovider Reason for Visit * Reason Onset Date Comments Home Health 10/17/2024 Encounter Details Date Type Department Care Team (Late st Contact Info) Description 10/17/2024 Telephone Family Medicine [address] [phone] Lilo Ba MD [address] [place] [address] [place] [address] Home Health Allergies Active Allergy Reactions Criticality Noted Date Comments Brassica Oleracea 05/17/2020 Other Reaction(s): Gas Crab (Diagnostic) 04/05/2018 Crab Extract 05/17/2020 Other Reaction(s): diarrhea Food (See Comments) 07/24/2015 Broccoli, beans, cauliflower - cause gas Grapefruit, oranges - cause bronchitis - positive skin test Grapefruit Extract 05/17/2020 Other Reaction(s): BRONCHITIS [place] Oil 05/17/2020 Other Reaction(s): BRONCHITIS Paroxetine Hydrochloride [...] 2, 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% ([facility]) TEST BLOOD SUGAR ONCE DAILY DIRECTED DX E11.9 100 Each 3 Active OneTouch Verio In Vitro Strip (Glucose Blood)Indications :DM type 2, 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% ([facility]) Test blood sugar once daily as [...] morning. 90 Tablet 1 024 Active Nystatin 146216 UNIT/GM External CreamIndications: Dermatitis Apply topically to [...] before bedtime. 180 Tablet 1 024 Active triamcinolone acetonide (ARISTOCORT) 0.1 % creamIndications: Intrinsic eczema Apply topically to affected area 2 times a day. To affected area. 15 g 5 020 2024 Discontinued Zinc 50 MG Oral Tablet Take 1 Tablet by mouth in the morning. 90 Tablet 3 024 2024 Discontinued metFORMIN HCl 850 MG Oral Tablet (Glucophage)Indic ations:Type 2 diabetes mellitus with hemoglobin A1c goal of less than 7.0% ([facility]) TAKE 1 TABLET BY MOUTH TWICE A DAY WITH BREAKFAST AND DINNER 180 Tablet 1 024 2023 Discontinued(P atient preference/dis continuation) Metoprolol Tartrate 25 MG Oral Tablet (Lopressor)Indica tions:Essential hypertension with goal blood pressure less than 140/90,Atheroscle rosis of [place] coronary artery of [place] heart without angina pectoris,Paroxysm al atrial fibrillation (HCC) Take 1 Tablet by mouth in the morning and 1 Tablet before bedtime. 180 Tablet 1 024 2024 Discontinued(R efill) Ramelteon 8 MG Oral Tablet (Rozerem)Indicati ons:Insomnia, unspecified type Take 1 Tablet by mouth at bedtime. 90 Tablet 1 024 2024 Discontinued hydrALAZINE HCl 25 MG Oral Tablet (Apresoline)Indic ations:Benign hypertension with CKD (chronic kidney disease), stage II Take 1 Tablet by mouth in the morning and 1 Tablet before bedtime. 180 Tablet 1 024 2024 Discontinued(M edication/Dose Changed) documented as of this encounter (statuses [...] 09/23/2012 09/23/2012 Genetic Sleep Disorder Resea [facility] Other*[id number] 09/12/2012 06/25/2016 ADVANCE DIRECTIVE INFORMATION 06/11/2011 10/02/2024 [...] Miscellaneous Notes * Telephone Encounter - Amy Bhandari, ALBERTO - 10/17/2024 12:18 PM EST Resumption of Care Order Request: Luda NUGENT, Calling from: Giuliano Patient was Admitted to: [facility], for: fall hitting head, low BS from 10/12 to 10/16 Patient will be resuming: [facility], PT, and OT Last Office Visit: 09/11/24 Has patient been scheduled or seen in the office for a follow up visit: Yes- on10/20 Advised that orders will be signed by Dr Mark Lorenzo and to fax to the office for signature. Pt still has headache behind right eye to right side of head.( Pt has "goose egg" on right side of head) - pain 2/10 at best, at worse 7/10. Pt is taking tylenol. [facility] wants her to hold metformin for one week due to BS being low and A1c being 5.4. She is to hold eliqius and take ASA 81 daily until seen. [facility] wants pt to have labs,CBC CMP, and mag and phos in one week. Any lab order should be fax to Giuliano MARTÍNEZ VS t 98.8 P 60 RR 18 BP 128/62 Spo2 989% rA Wt 128 lbs Right ankle 20.3 cm left ankle 20 cm Lungs clear Fax orders to [phone] Giuliano MARTÍNEZ documented in this encounter Plan of Treatment Upcoming Encounters Date Type Department Care Team (Late st Contact Info) Description 01/23/2025 1:20 PM EST Office Visit Family [address] [phone] Lilo Ba MD [address] [place] [address] [place] [phone] 01/26/2025 11:20 AM EST Office Visit Family [address] [place] [address] Lilo Ba MD [address] [place] [address] [place] [phone] 02/06/2025 12:30 PM EDT Office Visit Neu[facility] [place] [facility] [address] Lashaun Moore PA-C [address] [place] [phone] 03/12/2025 2:00 PM EDT Office Visit Family Medicine [address] [phone] Lilo Ba MD [address] [place] [address] [place] [phone] 05/18/2025 3:30 PM EDT Office Visit Cardiology, [facility] [address] [place] [address] Francheska Ponce, OLIVIA [address] [place] [address] 12/04/2025 3:30 PM EST Office Visit Cardiology, [facility] [address] [place] [address] Chace Peacock, [address] [place] [address] Health Maintenance Due Date Last Done Comments [...] Screening 10/18/2025 10/18/2024 CKD HGB USE SMARTSET 07408 10/27/202510/27, 10/27/2024, 09/11/2024, Additional history exists CKD PHOS USE SMARTSET 34107 10/27/2025 11/07/2024, 09/16/2020, 08/29/2019 DXA Scan 05/31/2026 05/31/2019, 07/15/2012 [...] filedocumented as of this encounter Care Teams Supervising Chef Relationship Specialty Start Date End Date Lilo Ba MD [address] [place] [address] [place] [phone] PCP - General Family Medicine 10/23/24 documented as of this encounter
--- OUTSIDE RECORDS SUMMARY | 2025-04-01 17:35 | External Medical Summary | Summary of Care ---
Author Name Unknown Organization [facility] Address [address] [facility] [place] [address] Phone [phone] Care Team Providers Care Manager Marketing Communication Name Role Phone Lilo Ba MD Primary Care Pr ovider Reason for Visit * Reason Comments Outpatient Testing Encounter Details Date Type Department Care Team (Late st Contact Info) Description 01/09/2025 2:40 PM EST Laboratory Laboratory [address] [place] [phone] [place] [address] Benign hypertension with CKD (chronic kidney disease) stage III ([facility]); Type 2 diabetes mellitus with other diabetic ophthalmic complication ([facility]); Dysuria Allergies Active Allergy Reactions Criticality Noted Date Comments Brassica Oleracea 05/17/2020 Other Reaction(s): Gas Crab (Diagnostic) 04/05/2018 Crab Extract 05/17/2020 Other Reaction(s): diarrhea Food (See Comments) 07/24/2015 Broccoli, beans, cauliflower - cause gas Grapefruit, oranges - cause bronchitis - positive skin test Grapefruit Extract 05/17/2020 Other Reaction(s): BRONCHITIS [place] Oil 05/17/2020 Other Reaction(s): BRONCHITIS Paroxetine Hydrochloride [...] < 7.5% ([facility]) Test blood sugar once daily [...] 20 MG Oral Tablet (Lipitor)Indicatio ns:Atherosclerosis of [place] coronary artery of [place] heart without angina pectoris,Paroxysma l atrial fibrillation (HCC),Dyslipidemia , goal LDL below 100 take one pill by mouth at bedtime 90 Tablet 1 04/21/20 24 Active Potassium Chloride Krystal ER 20 MEQ Oral Tablet Extended Release (Klor-Con M20) Take 1 Tablet by mouth in the morning. 90 Tablet 1 04/21/20 24 Active Nystatin 380701 UNIT/GM External CreamIndications:D ermatitis Apply topically to [...] blood pressure less than 140/90,Atheroscler osis of [place] coronary artery of [place] heart without angina pectoris,Paroxysma l atrial fibrillation [...] 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 Coronary artery disease invo lving [place] coronary artery of [place] heart without angina pectoris Adjustment disorder with [...] persistent 09/23/2012 09/23/2012 Genetic Sleep Disorder Resea [facility] Other*[id number] 09/12/2012 06/25/2016 ADVANCE DIRECTIVE INFORMATION 06/11/2011 10/02/2024 [...] 1:20 PM EST Office Visit Family Medicine [address] [place] [phone] Lilo Ba MD [address] [place] [address] [place] [phone] 01/26/2025 11:20 AM EST Office Visit Family [address] [phone] Lilo Ba MD [address] [place] [address] [place] [address] 02/06/2025 12:30 PM EDT Office Visit [facility] [address] Lashaun Moore PA-C [address] [facility] [place] [address] 03/12/2025 2:00 PM EDT Office Visit Family [address] [phone] Lilo Ba MD [address] [place] [address] [place] [phone] 05/18/2025 3:30 PM EDT Office Visit Cardiology, [facility] [address] [place] [address] Francheska Ponce PAVinay [address] [place] [address] 12/04/2025 3:30 PM EST Office Visit Cardiology, [facility] [address] [place] [address] Chace Peacock DO [address] [place] [address] Pending Results Name Type Priority Associated Diagnoses Date /Time COMPREHENSIVE METABOLIC PANEL Lab Routine Benign hypertension with CKD (chronic kidney disease) stage III ([facility]) 01/09/2025 2:31 PM EST HEMOGLOBIN A1C Lab Routine Type 2 diabetes mellitus with other diabetic ophthalmic complication ([facility]) 01/09/2025 2:31 PM EST Health [...] Screening 10/18/2025 10/18/2024 CKD HGB USE SMARTSET 76252 10/27/202510/27, 10/27/2024, 09/11/2024, Additional history exists CKD PHOS USE SMARTSET 96246 10/27/202509/30, 09/16/2020, 08/29/2019 DXA Scan 05/31/2026 05/31/2019, [...] Dysuria documented in this encounter Care Teams Manager Marketing Communication Relationship Specialty Start Date End Date Lilo Ba MD [address] [place] [address] [place] [phone] PCP - General Family Medicine 10/23/24 documented as of this encounter
--- OUTSIDE RECORDS SUMMARY | 2025-04-01 17:36 | External Medical Summary | Summary of Care ---
Author Name Unknown Organization [facility] Address [address] [facility] [place] [address] Phone [phone] Care Team Providers Care Helper/Driver Name Role Phone Lilo Ba MD Primary Care Pr ovider Reason for Visit * Reason Onset Date Comments Hospital Follow-Up 01/01/2025 [facility] for [facility] Encounter Details Date Type Department Care Team (Late st Contact Info) Description 01/01/2025 Telephone [address] [place] [phone] Helena Turcios RN Hospital Follow-Up ([facility] for [facility]) Allergies Active Allergy Reactions Criticality Noted Date Comments Brassica Oleracea 05/17/2020 Other Reaction(s): Gas Crab (Diagnostic) 04/05/2018 Crab Extract 05/17/2020 Other Reaction(s): diarrhea Food (See Comments) 07/24/2015 Broccoli, beans, cauliflower - cause gas Grapefruit, oranges - cause bronchitis - positive skin test Grapefruit Extract 05/17/2020 Other Reaction(s): BRONCHITIS [place] Oil 05/17/2020 Other Reaction(s): BRONCHITIS Paroxetine Hydrochloride 04/03/2009 Penicillins 04/03/2009 Blisters on hands Peanut-Containing Drug Products Abdominal pain Medium 07/24/2015 Gas, bloating Phaseolus 01/10/2024 Other Reaction(s): Bloating, Gas also with green beans documented as of this encounter (statuses as of 01/02/2025) Medications triamcinolone acetonide (ARISTOCORT) 0.1 % creamIndications:I [...] DM type 2, 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% ([facility] [...] 20 MG Oral Tablet (Lipitor)Indicatio ns:Atherosclerosis of [place] coronary artery of [place] heart without angina pectoris,Paroxysma l atrial fibrillation (HCC),Dyslipidemia , goal LDL below 100 take one pill by mouth at bedtime 90 Tablet 1 04/21/20 24 Active Potassium Chloride Krystal ER 20 MEQ Oral Tablet Extended Release (Klor-Con M20) Take 1 Tablet by mouth in the morning. 90 Tablet 1 04/21/20 24 Active Nystatin 081132 UNIT/GM External CreamIndications:D ermatitis Apply topically to [...] blood pressure less than 140/90,Atheroscler osis of [place] coronary artery of [place] heart without angina pectoris,Paroxysma l atrial fibrillation (HCC) Take 1 Tablet by mouth in the morning and 1 Tablet before bedtime. 180 Tablet 1 12/09/19 25 Active Ramelteon 8 MG Oral Tablet (Rozerem)Indicatio ns:Insomnia, unspecified type TAKE 1 TABLET BY MOUTH EVERYDAY AT BEDTIME 90 Tablet 1 12/25/19 25 Active amLODIPine Besylate 5 MG Oral Tablet (Norvasc) Take 1 Tablet by mouth in the morning. 12/30/19 25 Active Chlorthalidone 25 MG Oral Tablet (Hygroton) Take 2 Tablets by mouth in the morning. 12/30/19 25 Active Ciprofloxacin HCl 500 MG Oral Tablet (Cipro) Take 1 Tablet by mouth in the morning and 1 Tablet before bedtime. X 5 days. 12/30/19 25 Active hydrALAZINE HCl 50 MG Oral Tablet (Apresoline) Take 1 Tablet by mouth in the morning and 1 Tablet at noon and 1 Tablet before bedtime. 12/30/19 25 Active hydrALAZINE HCl 25 MG Oral Tablet (Apresoline)Indica tions:Benign hypertension with CKD (chronic kidney disease), stage II Take 1 Tablet by mouth in the morning and 1 Tablet before bedtime. 180 Tablet 1 08/10/20 24 025 Discontin ued(Medic ation/Dos e Changed) documented as of this encounter (statuses as of 01/02/2025) Active Problems Problem Noted Date Diagnosed Date [...] set at 12/10 -- start auto BIPAP [facility] Primary hypertension 10/17/2009 Overview (10/17/2009): Modified per HTN protocol #16. Acquired hypothyroidism Gastroesophageal reflux dise ase with esophagitis 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 Coronary artery disease invo lving [place] coronary artery of [place] heart without angina pectoris Adjustment disorder with depressed mood documented as of this encounter (statuses as of 01/02/2025) Resolved Problems Problem Noted Date Diagnosed Date [...] Sleep Disorder Resea [facility] Other*[id number] 09/12/2012 06/25/2016 ADVANCE DIRECTIVE INFORMATION 06/11/2011 10/02/2024 [...] as of this encounter (statuses as of 01/02/2025) Immunizations Name Administration Dates Next Due COVID-19 [...] No 10/18/2024 Does the household have a [facility] source of income? (Household - for ages [...] encounter Miscellaneous Notes * Telephone Encounter - Helena Turcios RN - 01/01/2025 12:55 PM EST Transitions of Care Note Reason for Referral:Recent Admission Phone visit for follow up: kelly Admitted to: [facility], Date: 12.28.24 Discharged to: home, Date: 12.30.24 Diagnosis driving hospitalization: UTI , hypertensive urgency Source/Contact: Patient SUBJECTIVE Consent: Verbal consent for review of hospital discharge: Yes REVIEW OF SYSTEMS Patient/Other Reports: Current patient/caregiver problems or concerns: patient unable to name the medications she is on, there is a nurse coming this afternoon. I did discuss the importance of finishing that antibiotic and her additional meds. CV: Denies problems Pulmonary: Denies problems Chills/Sweats/Fever:Denies chills/sweats Denies fever Appetite:Denies problems such as nausea, vomiting, burning, decreased appetite Current diet: reg Bowel: denies problems Bladder: symptoms are improving a little Wound (If applicable): N/A Pain:Denies Sleep:Denies problems FUNCTIONAL STATUS: ADL'S: Needs Assistance With:Bathing IADL'S: Needs Assistance With:Grocery Shopping, Taking medications, and Attending to safety Cognitive and Mental Health: denies problems, alert and oriented x 3, and able to communicate, understand instructions, process information. MEDICATION RECONCILIATION Medications: Reports all medications taken as prescribed by nurse OBJECTIVE ASSESSMENT Medication Risk Assessment:patient unable to tell me what pils she is currently on she states HH iscoming in and they give her , her medications. We did discuss finishing the antibiotic and new meds were Amlodipine 5mg , 10mg daily Chlorthalidone 25mg , 50mg qam Cipro 500mg BID x 5days Hydralazine increased to 50mg TID Did patient fail outpatient treatment? No Discharge instructions available for review? No PLAN Symptom Monitoring Interventions:Member/caregiver education - signs and symptoms to contact PrimaryCare (DO NOT DELETE-Three carballo symptoms patient is to report to PCP) 1. Increased abd pain 2. confusion 3. 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 Educated patient/caregiver on patient right to have input on KELLY plan of care. Verification of Home Health/DME if indicated: YES barrett coming in Identified Care Gaps: Yes Care Gaps closed this call: Transition of Care follow-up communication Re-evaluation of Plan of Care and progress towards goals achievement: Patient education this visit: Verbal, patient to stay hydrated and keep drinking water. Plan to follow-up as previously scheduled, instructed to call Primary Care Provider with change in symptoms or as needed before next follow-up, verbalizes understanding and agrees with plan. My phone # given to patient if HH has any questions re meds. They are to call. Helena Turcios RN documented in this encounter Plan of Treatment Upcoming Encounters Date Type Department Care Team (Late st Contact Info) Description 01/05/2025 9:00 AM EST Office Visit Family [address] [phone] Lilo Ba MD [address] [place] [address] [place] [phone] 01/23/2025 1:20 PM EST Office Visit Family [address] [place] [address] Lilo Ba MD [address] [place] [address] [place] [phone] 02/06/2025 12:30 PM EDT Office Visit [facility] [address] [facility] [address] Lashaun Moore PA-C [address] [place] [address] 03/12/2025 2:00 PM EDT Office Visit Family [address] [place] [phone] Lilo Ba MD [address] [place] [address] [place] [address] 05/18/2025 3:30 PM EDT Office Visit Cardiology, [facility] [address] [place] [address] Francheska Ponce, PALichaC [address] [place] [address] 12/04/2025 3:30 PM EST Office Visit Cardiology, [facility] [address] [place] [address] Chace Peacock, [address] [place] [address] Health Maintenance Due Date Last Done Comments [...] Screening 10/18/2025 10/18/2024 CKD HGB USE SMARTSET 68016 10/27/202510/27, 10/27/2024, 09/11/2024, Additional history exists CKD PHOS USE SMARTSET 56485 10/27/202509/30, 09/16/2020, 08/29/2019 DXA Scan 05/31/2026 05/31/2019, [...] filedocumented as of this encounter Care Teams Helper/Driver Relationship Specialty Start Date End Date Lilo Ba MD [address] [place] [address] [place] [phone] PCP - General Family Medicine 10/23/24 documented as of this encounter
--- OUTSIDE RECORDS SUMMARY | 2025-04-01 17:36 | External Medical Summary ---
Author Name Unknown Address Unknown Organization K01:[facility] - [address] [facility] [address] Laboratory Report Ordering Provider Test Date Status FLEX WINSLOW SEIFERT 01/09/2025 14:31:12 Final Observation Date Value Abnormality Reference (Units ) Status HbA1C 01/09/2025 14:31:12 5.8 Above high normal 4. 0-5.6 (%) Final The use of HbA1c to monitor glycemic status is based on normal hemoglobin and HbA composition. This test should not be used in patients with abnormal hemoglobin that affects the half life of the red blood cell or the in vivo glycation rates. Glucose, estimated average 01/09/2025 14:31:12 120 <126 (mg/dL) Final Performing Location [facility] - [address] [facility] [address]
--- OUTSIDE RECORDS SUMMARY | 2025-04-01 17:36 | External Medical Summary | Summary of Care ---
Author Name Unknown Organization [facility] Address [address] [place] [address] Phone [phone] Care Team Providers Care Marking Machine Operator Name Role Phone Lilo Ba MD Primary Care Pr ovider Reason for Visit * Reason Onset Date Comments Home Health 01/01/2025 Encounter Details Date Type Department Care Team (Late st Contact Info) Description 01/01/2025 Telephone Family Medicine [address] [phone] Lilo Ba MD [address] [place] [address] [place] [phone] Home Health Allergies Active Allergy Reactions Criticality Noted Date Comments Brassica Oleracea 05/17/2020 Other Reaction(s): Gas Crab (Diagnostic) 04/05/2018 Crab Extract 05/17/2020 Other Reaction(s): diarrhea Food (See Comments) 07/24/2015 Broccoli, beans, cauliflower - cause gas Grapefruit, oranges - cause bronchitis - positive skin test Grapefruit Extract 05/17/2020 Other Reaction(s): BRONCHITIS [place] Oil 05/17/2020 Other Reaction(s): BRONCHITIS Paroxetine Hydrochloride [...] 30GIndications:DM type 2, 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% ([facility]) TEST BLOOD SUGAR ONCE DAILY DIRECTED DX E11.9 100 Each 01/03/20 24 Active OneTouch Verio In Vitro Strip (Glucose Blood)Indications: DM type 2, 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% ([facility]) Test blood sugar once daily [...] 20 MG Oral Tablet (Lipitor)Indicatio ns:Atherosclerosis of [place] coronary artery of [place] heart without angina pectoris,Paroxysma l atrial fibrillation (HCC),Dyslipidemia , goal LDL below 100 take one pill by mouth at bedtime 90 Tablet 1 04/21/20 24 Active Potassium Chloride Krystal ER 20 MEQ Oral Tablet Extended Release (Klor-Con M20) Take 1 Tablet by mouth in the morning. 90 Tablet 1 04/21/20 24 Active Nystatin 002997 UNIT/GM External CreamIndications:D ermatitis Apply topically to [...] blood pressure less than 140/90,Atheroscler osis of [place] coronary artery of [place] heart without angina pectoris,Paroxysma l atrial fibrillation [...] 1 Tablet before bedtime. 12/30/19 25 Active documented as of this encounter [...] 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 Coronary artery disease invo lving [place] coronary artery of [place] heart without angina pectoris [...] persistent 09/23/2012 09/23/2012 Genetic Sleep Disorder Resea [facility] Other*[id number] 09/12/2012 06/25/2016 ADVANCE DIRECTIVE INFORMATION 06/11/2011 10/02/2024 [...] Miscellaneous Notes * Telephone Encounter - Eleni Correa, ALBERTO - 01/01/2025 4:41 PM EST HH Admission/Start of Care Admission/Start of Care: Mary Grace NUGENT, Calling from: Giul[facility] Patient was Admitted to: [facility], for: UTI, Hypertensive Urgency from 12/28/2024 to 12/30/2024 Referral ordered by: [facility] Referral received for: Half-Way Planned start of care date:Yes, Date 01/01/2025 Start of care completed on: YES Report/Concerns of:None Symptoms: none Vitals: T 97.8 P 58 RR 18 BP 114/62 SP O2 97% RA Lung sounds Clear Weight 137lb They will call with any updates or additional concerns from the upcoming visit. Last Office Visit: 11/13/2024 Has patient been scheduled or seen in the office for a follow up visit: Yes- on01/05/2025 Advised that orders will be signed by Lilo Mai MD and to fax to the office for signature. [facility] documented in this encounter Plan of Treatment Upcoming Encounters Date Type Department Care Team (Late st Contact Info) Description 01/05/2025 9:00 AM EST Office Visit [address] [place] [phone] Lilo Ba MD [address] [place] [address] [place] [phone] 01/23/2025 1:20 PM EST Office Visit [address] [place] [address] Lilo Ba MD [address] [place] [address] [place] [phone] 02/06/2025 12:30 PM EDT Office Visit Neurology [facility] [address] [place] [address] Lashaun Moore PA-C 21 [place] [address] 03/12/2025 2:00 PM EDT Office Visit Family [address] [place] [phone] Lilo Ba MD [address] [place] [address] [place] [phone] 05/18/2025 3:30 PM EDT Office Visit Cardiology, [facility] [address] [place] [address] Francheska Ponce, PAVinay [address] [place] [address] 12/04/2025 3:30 PM EST Office Visit Cardiology, [facility] [address] [place] [address] Chace Peacock DO [address] [place] [address] Health Maintenance Due Date Last Done Comments [...] Screening 10/18/2025 10/18/2024 CKD HGB USE SMARTSET 40092 10/27/202510/27, 10/27/2024, 09/11/2024, Additional history exists CKD PHOS USE SMARTSET 87210 10/27/202509/30, 09/16/2020, 08/29/2019 DXA Scan 05/31/2026 05/31/2019, [...] filedocumented as of this encounter Care Teams Marking Machine Operator Relationship Specialty Start Date End Date Lilo Ba MD [address] [place] [address] [place] [phone] PCP - General Family Medicine 10/23/24 documented as of this encounter
--- OUTSIDE RECORDS SUMMARY | 2025-04-01 17:36 | External Medical Summary ---
Author Name Unknown Address Unknown Organization K01:[facility] - [address] [place] [address] [place] [address] Laboratory Report Ordering Provider Test Date Status FLEX WINSLOW 01/09/2025 14:31:12 Final Observation Date Value Abnormality Reference (Units ) Status BUN 01/09/2025 14:31:12 17 6-20 (mg/dL) Final Creatinine 01/09/2025 14:31:12 0.8 0.5-1.0 (mg/dL) Final Glomerular filtration rate/1.73 sq M.predicted [Volume Rate/Area] in Serum, Plasma or Blood by Creatinine-based formula (CKD-EPI) 01/09/2025 14:31:12 74 >=60 (mL/min) Final eGFR is calculated based on the CKD-EPI 2020 equation. Sodium 01/09/2025 14:31:12 139 135-146 (m mol/L) Final Potassium 01/09/2025 14:31:12 4.8 3.5-5.1 (m mol/L) Final Cl 01/09/2025 14:31:12 100 98-107 (mm ol/L) Final CO2 01/09/2025 14:31:12 27 22-32 (mmo l/L) Final Anion gap 01/09/2025 14:31:12 12 7-15 (mmol /L) Final Glucose 01/09/2025 14:31:12 115 70-120 (mg /dL) Final Albumin 01/09/2025 14:31:12 4.2 3.8-5.0 (g /dL) Final AST (Aspartate aminotransferase) 01/09/2025 14:31:12 19 10-35 (U/L) Fin al Alk Phos 01/09/2025 14:31:12 51 35-130 (U/ L) Final Bilirubin, Total 01/09/2025 14:31:12 0.3 <=1 .2 (mg/dL) Final Calcium 01/09/2025 14:31:12 10.7 Above high normal 8. 4-10.2 (mg/dL) Final Protein 01/09/2025 14:31:12 6.2 6.0-8.3 (g /dL) Final ALT (Alanine aminotransferase) 01/09/2025 14:31:12 13 10-35 (U/L) Victor Hugo taveras Performing Location [facility] - [address] [place] [facility] [address]
--- OUTSIDE RECORDS SUMMARY | 2025-04-01 17:36 | External Medical Summary | Summary of Care ---
Author Name Unknown Organization [facility] Address [address] [facility] [place] [address] Phone [phone] Care Team Providers Care Production Aide Name Role Phone Lilo Ba MD Primary Care Pr ovider Reason for Visit * Reason Onset Date Comments Hospital Follow-Up 01/01/2025 [facility] for [facility] Encounter Details Date Type Department Care Team (Late st Contact Info) Description 01/01/2025 Telephone Ancillary [address] [place] [phone] Helena Turcios RN Hospital Follow-Up ([facility] for [facility]) Allergies Active Allergy Reactions Criticality Noted Date Comments Brassica Oleracea 05/17/2020 Other Reaction(s): Gas Crab (Diagnostic) 04/05/2018 Crab Extract 05/17/2020 Other Reaction(s): diarrhea Food (See Comments) 07/24/2015 Broccoli, beans, cauliflower - cause gas Grapefruit, oranges - cause bronchitis - positive skin test Grapefruit Extract 05/17/2020 Other Reaction(s): BRONCHITIS [place] Oil 05/17/2020 Other Reaction(s): BRONCHITIS Paroxetine Hydrochloride [...] 20 MG Oral Tablet (Lipitor)Indicatio ns:Atherosclerosis of [place] coronary artery of [place] heart without angina pectoris,Paroxysma l atrial fibrillation (HCC),Dyslipidemia , goal LDL below 100 take one pill by mouth at bedtime 90 Tablet 1 04/21/20 24 Active Potassium Chloride Krystal ER 20 MEQ Oral Tablet Extended Release (Klor-Con M20) Take 1 Tablet by mouth in the morning. 90 Tablet 1 04/21/20 24 Active Nystatin [id number] UNIT/GM External CreamIndications:D ermatitis Apply topically to [...] blood pressure less than 140/90,Atheroscler osis of [place] coronary artery of [place] heart without angina pectoris,Paroxysma l atrial fibrillation [...] set at 12/10 -- start auto BIPAP [facility] Primary hypertension 10/17/2009 Overview (10/17/2009): Modified per HTN protocol #16. Acquired hypothyroidism Gastroesophageal reflux dise ase with esophagitis 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 Coronary artery disease invo lving [place] coronary artery of [place] heart without angina pectoris Adjustment disorder with [...] persistent 09/23/2012 09/23/2012 Genetic Sleep Disorder [facility] Other*[id number] 09/12/2012 06/25/2016 ADVANCE DIRECTIVE INFORMATION 06/11/2011 10/02/2024 [...] No 10/18/2024 Does the household have a [facility] source of income? (Household - for [...] for follow up: kelly Admitted to: [facility], Date: 12.28.24 Discharged to: home, Date: 12.30.24 [...] abd pain 2. confusion 3. 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 of Care interventions/Action Plan: 5 - 7 [...] 01/05/2025 9:00 AM EST Office Visit Family [address] [phone] Lilo Ba MD [address] [place] [address] [place] [phone] 01/23/2025 1:20 PM EST Office Visit Family [address] [place] [phone] Lilo Ba MD [address] [place] [address] [place] [phone] 02/06/2025 12:30 PM EDT Office Visit [facility] [address] [facility] [address] Lashaun Moore PA-C [address] [place] [address] 03/12/2025 2:00 PM EDT Office Visit Family [address] [place] [phone] Lilo Ba MD [address] [place] [address] [place] [phone] 05/18/2025 3:30 PM EDT Office Visit Cardiology, [facility] [address] [place] [address] Francheska Ponce, PALichaC [address] [place] [address] 12/04/2025 3:30 PM EST Office Visit Cardiology, [facility] [address] [place] [address] Chace Peacock, [address] [place] [address] Health Maintenance Due Date Last Done Comments [...] Screening 10/18/2025 10/18/2024 CKD HGB USE SMARTSET 49076 10/27/202510/27, 10/27/2024, 09/11/2024, Additional history exists CKD PHOS USE SMARTSET 85906 10/27/202509/30, 09/16/2020, 08/29/2019 DXA Scan 05/31/2026 05/31/2019, [...] filedocumented as of this encounter Care Teams Production Aide Relationship Specialty Start Date End Date Lilo Ba MD [address] [place] [address] [place] [phone] PCP - General Family Medicine 10/23/24 documented as of this encounter
--- NOTE | 2025-04-01 18:09 | Emergency Department Note ---
Impression & Plan Fall, Ambulatory dysfunction, CHI (closed head injury), History of cardioembolic cerebrovascular accident (CVA) ED Provider Note NAME: ERNIE WELLER AGE: 85 SEX: F : 1940 ARRIVES VIA: Ambulance INFORMANT: Patient, ED PROVIDER(S): Rudi Cummins MD CHIEF COMPLAINT: Fall MEDICAL DECISION MAKING: Patient presents due to concern for fall most out of facial pain. Patient patient with all also of bilateral knee and ankle pain. Patient did have CT head cervical spine and face completed. C-collar was applied. Patient was ordered IV Tylenol and an ice pack. IV was established and blood work was obtained. Below shows a normal white count hemoglobin 11. This is around the patient's baseline. The patient's platelet count is unremarkable. Kidney function unremarkable mild hyponatremia 135. The patient's imaging and CTs are unremarkable. The patient did have some findings on the bilateral ankle films but the patient does not have pain in those areas. Apparently there is concern for safety at home after discussing this with the patient and patient's family. Patient may benefit from PT and OT given the patient's prior stroke and currently lives with an 81-year-old boyfriend recovering from recent heart surgery and has dementia. It is of the on-call hospital service Dr. Arreola and the patient was admitted to the medicine service. Discussion w/ other healthcare providers: Dr. Arreola inpatient medicine service Prior /Outside records reviewed: None Differential diagnosis: Fracture, dislocation, contusion, strain, sprain, ICH, hemothorax, intra- abdominal injury, anemia among other causes were considered. Diagnostics, as interpreted by me: ECG: None Cardiac monitoring: An order was placed for continuous cardiac monitoring. The monitor shows a rate of 55 with sinus bradycardia rhythm. Patient was placed on pulse oximetry Medical decision rules: Sammarinese head CT rule, Nexus rule Imaging studies: I informally interpreted the patient's chest x-ray does not show obvious pneumonia with formal report to follow. HPI: Patient presents due to concern for fall. The patient reports that she was walking from her kitchen to her TV room using her walker and the transition between the linoleum and the carpet believes that her left foot caught on the rug and fell forward. The patient believes that she struck something hard on the left side of her face. The patient does take a baby aspirin but no other blood thinners or antiplatelets. Patient is a prior history of stroke and occasionally does have foot drop. Patient denies any chest pain or back pain. Patient states that she did have some knee and ankle pain. The patient did not take anything for pain prior to arrival. The patient was unable to get up on her own. She does live with her son who called EMS and thus brought her in. PAST MEDICAL HISTORY: See Below PAST SURGICAL HISTORY: See Below SOCIAL HISTORY: See Below HOME MEDICATIONS: See Below ALLERGIES: See Below VITALS: See Below PHYSICAL EXAMINATION: GENERAL: NAD, non-toxic. EYE EXAM: Normal conjunctiva. PERRL, no anisocoria and EOM's grossly intact w/o pain. OROPHARYNX: Moist mucus membranes, grossly normal dentition. NECK: Trachea midline, no stridor. Supple, no nuchal rigidity, no adenopathy, non-tender. No signs of meningismus. FROM of the neck with good chin to chest and neck extension. LUNGS: Clear to auscultation. Normal chest wall mechanics. HEART: NSR, no MRG. ABDOMEN: Abdomen soft, non-tender, no masses, no rebound or guarding. BACK: No CVA TTP. No midline thoracic or lumbar TTP. SKIN: No rashes and no bruising. UPPER EXTREMITIES: Upper extremities are grossly normal. LOWER EXTREMITIES: Mild pain to the medial aspect of the right ankle and slight pain to the lateral aspect of the left ankle and extend at the ankle without issue. Mild anterior left knee pain and medial right knee pain. Able to bend at the knees bilaterally. NEURO EXAM: A&O x3, no obvious facial asymmetry, normal speech, moves all 4 extremities. Past Med/Surg History Problem List History of cardioembolic cerebrovascular accident (CVA) (Acute) CHI (closed head injury) (Acute) Ambulatory dysfunction (Acute) Fall (Acute) History of CVA (cerebrovascular accident) Diabetes mellitus type 2, diet-controlled Acute on chronic heart failure with preserved ejection fraction CHF (congestive heart failure) Confusion (Acute) Weakness (Acute) Hypertension (Acute) Hypertensive urgency Cervical strain, acute (Acute) Fall (Acute) Head injury (Acute) Drug-induced sinus bradycardia Hiatal hernia with GERD Vasovagal syncope Acute hypoxemic respiratory failure Hypomagnesemia (Acute) Vomiting (Acute) Chest pain (Acute) Syncope (Acute) Hypomagnesemia (Acute) Stroke-like symptoms (Acute) Nausea & vomiting (Acute) Arthralgia Embolic stroke Elevated troponin Near syncope Ambulatory dysfunction (Acute) Chronic pain in left foot (Acute) Hypomagnesemia (Acute) Generalized weakness (Acute) Osteoarthritis of ankle, left HTN (hypertension) Left ankle swelling (Acute) Hypomagnesemia (Acute) Syncope and collapse (Acute) Right rotator cuff tear Right knee DJD Hypokalemia CAD (coronary artery disease) (Chronic) stent in 1999 Anemia (Acute) Postoperative bleeding from mouth (Acute) Orthostatic syncope (Acute) Chronic anticoagulation (Acute) Near syncope DVT prophylaxis Postoperative bleeding from mouth History of rotator cuff surgery (Chronic) History of cataract extraction (Chronic) T2DM (type 2 diabetes mellitus) (Chronic) HTN (hypertension) (Chronic) HLD (hyperlipidemia) (Chronic) PAF (paroxysmal atrial fibrillation) (Chronic) DEMARIO (obstructive sleep apnea) (Chronic) Asthma (Chronic) CKD (chronic kidney disease) stage 3, GFR 30-59 ml/min (Chronic) Primary open angle glaucoma (Chronic) History of arthroscopic knee surgery (Chronic) History of tonsillectomy (Chronic) GERD (gastroesophageal reflux disease) (Chronic) History of appendectomy (Chronic) Hypothyroidism (Chronic) History of placement of stent in LAD coronary artery (Chronic) Sleep apnea (Chronic) Stented coronary artery (Chronic) Family History Father CHF (congestive heart failure) Mother Cancer Social History Smoking Status: Never smoker Second Hand Exposure: Yes; Do You Dip or Chew Tobacco: No; Tobacco Cessation Education Requested by Patient: No Hx Alcohol Use: No Hx Substance Use: No Preferred Language: Bulgarian Communication Ability: Effective Machine Wiper Required: No Beliefs That Will Affect Care: None marital status: Life Partner Current Living Situation: Significant Other Current Living Situation Comment: s/o Other Information That Helps Us Care for You: Yes (S.O with dementia) Feels Safe at Home: Yes Safety Concerns: Feels Safe At This Time Assistive Devices: Walker Allergies Allergies Allergy/AdvReac Type Severity Reaction Status Date / Time paroxetine Allergy Severe ANAPHYLAXIS Verified 02/08/24 13:35 mold Allergy Intermediate asthma Verified 02/08/24 13:35 symptoms pollen extracts Allergy Intermediate asthma Verified 02/08/24 13:35 symptoms Penicillins Allergy Mild Unknown Verified 02/08/24 13:35 green vasquez Allergy Verified 12/29/24 14:08 peas Allergy Verified 12/29/24 14:09 vasquez AdvReac Intermediate gas and Verified 02/08/24 13:35 bloating with consuption of green or kidneys beans broccoli AdvReac Intermediate GAS Verified 02/08/24 13:35 crab AdvReac Intermediate diarrhea Verified 02/08/24 13:35 grapefruit AdvReac Intermediate BRONCHITIS Verified 02/08/24 13:35 orange AdvReac Intermediate BRONCHITIS Verified 02/08/24 13:35 peanut AdvReac Intermediate Difficulty Verified 12/29/24 14:08 Breathing cauliflower AdvReac Verified 12/29/24 14:09 Home Meds Home Medications Medication Instructions Recorded Confirmed atorvastatin 20 mg tablet 20 mg PO HS 08/22/19 04/02/25 montelukast 10 mg tablet 10 mg PO HS 08/22/19 04/02/25 bimatoprost 0.01 % eye drops 1 drp OPB HS 05/08/22 04/02/25 (Sahraigan) fluticasone 250 mcg-salmeterol 50 1 inh inhalation BID 10/23/23 04/02/25 mcg/dose blistr powdr for inhalation (Wixela Inhub) oxybutynin chloride 10 mg 10 mg PO QAM 10/23/23 04/02/25 tablet,extended release 24 hr levothyroxine 100 mcg tablet 100 mcg PO DAILYBB 12/02/23 04/02/25 losartan 100 mg tablet 100 mg PO DAILY 02/08/24 04/02/25 metoprolol tartrate 25 mg tablet 50 mg PO DAILY 02/08/24 04/02/25 krqsyqzldfqh-zbibzvxu-ncbbxe tablet 1 tab PO DAILY 02/08/24 04/02/25 blood sugar diagnostic ([facility] 08/04/24 04/02/25 Verio test strips) coenzyme Q10 100 mg capsule 100 mg PO DAILY 08/04/24 04/02/25 (CoQ-10) lancets 30 gauge ([facility] Delica 08/04/24 04/02/25 Plus Lancet) magnesium oxide 400 mg (241.3 mg 400 mg PO DAILY 08/04/24 04/02/25 magnesium) tablet potassium chloride 20 mEq 20 meq PO DAILY 08/04/24 04/02/25 tablet,extended release(part/cryst) (Klor-Con M) pantoprazole 40 mg tablet,delayed 40 mg PO DAILY 12/28/24 04/02/25 release sodium chloride 1,000 mg soluble 1,000 mg PO BID 12/28/24 04/02/25 tablet albuterol sulfate 90 mcg/actuation 2 puff inhalation QID PRN SOB 04/01/25 04/02/25 aerosol inhaler azelastine 137 mcg (0.1 %) nasal 2 spray intranasal QPM 04/01/25 04/02/25 spray calcium 600 mg (as 1 tab PO DAILY 04/01/25 04/02/25 carbonate)-vitamin D3 5 mcg (200 unit) tablet chlorthalidone 25 mg tablet 25 mg PO QAM 04/01/25 04/02/25 fluticasone propionate 50 2 spray intranasal QAM 04/01/25 04/02/25 mcg/actuation nasal spray,suspension guaifenesin 600 mg tablet, 600 mg PO Q12H PRN Congestion 04/01/25 04/02/25 extended release 12 hr (Mucinex) ketoconazole 2 % topical cream 1 applic topical DAILY PRN Rash 04/01/25 04/02/25 vitamin B complex 1 tab PO DAILY 04/01/25 04/02/25 Previous Rx's Medication Instructions Recorded aspirin 81 mg tablet,delayed 81 mg PO QAM #30 tabs 10/16/24 release polyethylene glycol 3350 17 gram 17 g PO DAILY PRN laxative effect 10/16/24 oral powder packet (Miralax) #30 ea amlodipine 5 mg tablet (Norvasc) 10 mg (2 x 5 mg) PO QAM #60 tabs 12/30/24 hydralazine 50 mg tablet 50 mg PO TID #90 tabs 12/30/24 Results & Data (ED) Vital Signs Vital Signs - 24 hr 04/01/25 17:39 04/01/25 17:39 04/01/25 18:07 Temperature 37.0 C 37.0 C Temperature Source Oral Oral Pulse Rate 62 60 Pulse Rate [Apical] 62 Respiratory Rate 18 18 Blood Pressure 133/58 L Blood Pressure [Right Arm] 133/58 L Blood Pressure Mean 83 Blood Pressure Mean [Right Arm] 83 Pulse Oximetry 94 94 Oxygen Delivery Method Room Air Room Air Sepsis Recent Fever Within 48 Hours No Sepsis New/Unexplained Change in Mental Status N/A Sepsis Action Taken by Nursing No Action Required 04/01/25 20:06 04/01/25 21:49 Temperature Temperature Source Pulse Rate 55 L Pulse Rate [Apical] 55 L Respiratory Rate 15 Blood Pressure Blood Pressure [Right Arm] 137/64 Blood Pressure Mean Blood Pressure Mean [Right Arm] 88 Pulse Oximetry 94 Oxygen Delivery Method Room Air Sepsis Recent Fever Within 48 Hours Sepsis New/Unexplained Change in Mental Status Sepsis Action Taken by Detention Medications Current Medication List: was personally reviewed by me Laboratory Data Attestation: I reviewed the patient's lab results. 04/02/25 06:40 04/02/25 06:40 Lab Results 04/01/25 Range/Units 18:11 WBC 6.96 (4.8-10.8) K/ul RBC 3.61 L (4.20-5.40) M/uL Hgb 11.0 L (12.0-16.0) g/dl Hct 32.9 L (37.0-47.0) % MCV 91.1 (80.0-100.0) fL MCH 30.5 (25.0-34.0) pg MCHC 33.4 (32.0-36.0) g/dL RDW Std Deviation 49.1 H (36.4-46.3) fL RDW Coeff of Stoney 14.8 H (11.5-14.5) % Plt Count 300 (130-400) K/uL MPV 11.0 (9.4-12.4) fL Immature Gran % (Auto) 0.3 % Neut % (Auto) 70.2 % Lymph % (Auto) 14.4 % [place] % (Auto) 12.8 % Eos % (Auto) 1.7 % Baso % (Auto) 0.6 % Neut # (Auto) 4.89 (1.40-6.50) K/uL Lymph # (Auto) 1.00 L (1.20-3.40) K/uL [place] # (Auto) 0.89 H (0.11-0.59) K/uL Eos # (Auto) 0.12 (0.00-0.50) K/uL Baso # (Auto) 0.04 (0.00-0.20) K/uL Immature Gran # (Auto) 0.02 (0.01-0.20) K/uL PT 10.6 (9.0-12.0) Seconds INR 1.0 (0.9-1.1) APTT 26 (21-31) Seconds PTT Ratio 1.0 Sodium 135 L (136-145) mmol/L Potassium 4.0 (3.5-5.1) mmol/L Chloride 102 (98-107) mmol/L Carbon Dioxide 27 (21-32) mmol/L Anion Gap 6 (3-11) BUN 23 (6-23) mg/dl Creatinine 0.94 (0.6-1.2) mg/dl Est Cr Clr Drug Dosing 40.3 ml/min eGFR 59.09 BUN/Creatinine Ratio 24.5 H (10-20) Glucose 125 H (70-99(Fasting)) mg/dl Calcium 9.0 (8.6-10.3) mg/dl Magnesium 1.8 (1.7-2.4) mg/dl Total Bilirubin 0.4 (0.2-1.0) mg/dl AST 14 (13-39) U/L ALT 9 (7-52) U/L Alkaline Phosphatase 62 (34-104) U/L Total Protein 6.0 (6.0-8.3) gm/dl Albumin 3.8 (3.4-5.0) gm/dl Globulin 2.2 L (2.5-4.0) gm/dl Albumin/Globulin Ratio 1.7 (0.9-2) TSH 0.619 (0.300-4.500) uIu/ml Administered Medications Atorvastatin Calcium (Atorvastatin 20 Mg Tab) 20 mg PO HS ALYSA Stop: 05/01/25 23:09 Last Admin: 04/02/25 00:32 Dose: 20 mg Documented By: AMS Calcium/Vitamin D (Calcium 600mg + Vit D 400 Iu Tab) 1 tab PO DAILY ALYSA Stop: 05/02/25 08:59 Last Admin: 04/02/25 08:15 Dose: 1 tab Documented By: BRITTNEY Fluticasone/Vilanterol (Fluticasone/Vilanterol 100/25mcg 14 Puffs/Inhaler) 1 puffs INH DAILY ALYSA Stop: 05/02/25 08:59 Last Admin: 04/02/25 08:17 Dose: 1 puffs Documented By: BRITTNEY Hydralazine HCl (Hydralazine Tab 50 Mg Tab) 50 mg PO TID ALYSA Stop: 05/01/25 23:34 Last Admin: 04/02/25 14:28 Dose: Not Given Documented By: Admin: 04/02/25 08:16 Dose: 50 mg Documented By: Admin: 04/02/25 00:32 Dose: 50 mg Documented By: SHEREE Insulin Aspart (Insulin Aspart Per Unit Charge) 0 units SC ACHS ALYSA Stop: 05/01/25 23:12 Last Admin: 04/02/25 11:56 Dose: 2 units Documented By: BRITTNEY Co-signed By: DENIS Admin: 04/02/25 08:13 Dose: Not Given Documented By: Admin: 04/02/25 00:32 Dose: Not Given Documented By: SHEREE Levothyroxine Sodium (Levothyroxine Sodium 100 Mcg Tablet) 100 mcg PO DAILYBB ALYSA Stop: 05/02/25 06:29 Last Admin: 04/02/25 06:00 Dose: 100 mcg Documented By: SHEREE Lidocaine (Lidocaine 5% 1 Patch) 1 patch TD QAM ALYSA Stop: 05/02/25 11:14 Last Admin: 04/02/25 11:52 Dose: 1 patch Documented By: BRITTNEY Losartan Potassium (Losartan Potassium 50 Mg Tab) 100 mg PO DAILY ALYSA Stop: 05/02/25 08:59 Last Admin: 04/02/25 08:16 Dose: 100 mg Documented By: BRITTNEY Metoprolol Tartrate (Metoprolol Tartrate 50 Mg Tab) 50 mg PO DAILY ALYSA Stop: 05/02/25 08:59 Last Admin: 04/02/25 08:16 Dose: 50 mg Documented By: BRITTNEY Multivitamins/Minerals (Cerovite Adv Formula Tab) 1 tab PO DAILY ALYSA Stop: 05/02/25 08:59 Last Admin: 04/02/25 08:16 Dose: 1 tab Documented By: BRITTNEY Oxybutynin Chloride (Oxybutynin Chloride Xl 5 Mg Tabcr) 10 mg PO QAM [facility] Stop: 05/02/25 08:59 Last Admin: 04/02/25 08:16 Dose: 10 mg Documented By: BRITTNEY Pantoprazole Sodium (Pantoprazole 40 Mg Tab) 40 mg PO DAILY ALYSA Stop: 05/02/25 08:59 Last Admin: 04/02/25 08:16 Dose: 40 mg Documented By: BRITTNEY Vitamin B Complex (Vitamin B Complex Tab) 1 tab PO DAILY ALYSA Stop: 05/02/25 08:59 Last Admin: 04/02/25 08:16 Dose: 1 tab Documented By: BRITTNEY Discontinued Medications Furosemide (Furosemide Inj 20 Mg/2 Ml Vial) 20 mg IV ONE STA Stop: 04/02/25 00:25 Last Admin: 04/02/25 00:39 Dose: 20 mg Documented By: SHEREE Furosemide (Furosemide Inj 20 Mg/2 Ml Vial) 20 mg IV ONE ONE Stop: 04/02/25 12:01 Last Admin: 04/02/25 12:13 Dose: 20 mg Documented By: BRITTNEY Acetaminophen (Ofirmev) 1,000 mg in 100 mls @ 400 mls/hr IV NOW STA Stop: 04/01/25 18:34 Last Infusion: 04/01/25 18:45 Dose: Infused Documented By: Admin: 04/01/25 18:26 Dose: 400 mls/hr Documented By: JUHI Oxycodone HCl (Oxycodone Hcl Ir 5 Mg Tab (Immediate Release)) 2.5 mg PO NOW STA Stop: 04/01/25 20:19 Last Admin: 04/01/25 21:11 Dose: 2.5 mg Documented By: DORINA Imaging Data Radiologist's Impression: Ankle X-Ray 04/01/25 18:20 INDICATION: Pain TECHNIQUE: 4 views of the left ankle were obtained. COMPARISON: Left ankle radiographs October 23, 2023. FINDINGS: There is an osseous body measuring 1.3 cm seen in the lateral view radiograph projecting over the anterior calcaneus along its plantar surface just posteriorly to the cuboid. Please correlate with site of pain for possible acute traumatic avulsion injury to this area. Redemonstrated corticated osseous body by the medial malleolus representing sequela of old avulsion injury. Orthopedic hardware over hallux MTP joint IMPRESSION: Osseous body/fragment measuring 1.3 cm seen in the lateral view radiograph projecting over the anterior calcaneus along its plantar surface and just posteriorly to the cuboid. Please correlate with site of pain for possible acute traumatic avulsion injury to this area. This fragment was not definitively seen in the prior radiograph October 21, 2023. Electronically signed by Alvin Zaragoza 04-01-2025 7:17 PM Ankle X-Ray 04/01/25 18:20 INDICATION: Pain TECHNIQUE: 3 views of the right ankle were obtained. COMPARISON: None FINDINGS: Small calcific densities by the lateral malleolar tip which could represent an age-indeterminate cortical avulsion injury. Overlying soft tissue swelling over the lateral malleolus. Small calcaneal bone spurs. Small corticated osseous body by the cuboid may represent an os peroneum Vascular calcifications. Orthopedic screws are noted over the hallux metatarsal. Healed deformity of the fifth metatarsal. IMPRESSION: Small calcific densities by the lateral malleolar tip could represent an age-indeterminate cortical avulsion injury. Overlying soft tissue swelling over the lateral malleolus. Electronically signed by lAvin Zaragoza 04-01-2025 7:17 PM Tibia/Fibula X-Ray 04/01/25 18:20 INDICATION: Pain TECHNIQUE: 2 views of the left tibia-fibula were obtained. COMPARISON: None FINDINGS: No displaced acute osseous process is identified. IMPRESSION: No displaced acute osseous process is identified. Electronically signed by Alvin Zaragoza 04-01-2025 7:17 PM Discharge Plan Visit Data Chief Complaint: Fall ED Provider: Rudi Cummins Discharge Problem: Fall, Ambulatory dysfunction, CHI (closed head injury), History of cardioembolic cerebrovascular accident (CVA) Patient Disposition: Admitted As Inpatient Condition: Good Discharge Instructions Interventions: ED Discharge Assessment Last Done: 04/01/25 22:49 Discharge Problem: Fall Qualifiers: Encounter type: initial encounter Qualified Code(s): W19.XXXA - Unspecified fall, initial encounter CHI (closed head injury) Qualifiers: Encounter type: initial encounter Qualified Code(s): S09.90XA - Unspecified injury of head, initial encounter
[2025-04-01] MEDS: ACETAMINOPHEN 1,000 MG/100 ML VIAL IV STA (18:26)
[2025-04-01 18:41] LABS: Basophils # (auto) 0.04 K/uL (0.00-0.20); Basophils % (auto) 0.6 %; Eosinophils # (auto) 0.12 K/uL (0.00-0.50); Eosinophils % (auto) 1.7 %; Hematocrit (blood only) 32.9 % (37.0-47.0); Immature Granulocytes # (auto) 0.02 K/uL (0.01-0.20); Immature Granulocytes % (auto) 0.3 %; Lymphocytes % (auto) 14.4 %; Mean Corpuscular Hemoglobin 30.5 pg (25.0-34.0); Mean Corpuscular Hgb Conc 33.4 g/dL (32.0-36.0); Mean Corpuscular Volume 91.1 fL (80.0-100.0); Monocytes # (auto) 0.89 K/uL (0.11-0.59); Monocytes % (auto) 12.8 %; Neutrophils # (auto) 4.89 K/uL (1.40-6.50); Neutrophils % (auto) 70.2 %; Platelet Count 300 K/uL (130-400); RDW Coefficient of Variation 14.8 % (11.5-14.5); RDW Standard Deviation 49.1 fL (36.4-46.3); Red Blood Count 3.61 M/uL (4.20-5.40); White Blood Count 6.96 K/ul (4.8-10.8)
[2025-04-01 19:03] LABS: Albumin Globulin Ratio 1.7 (0.9-2); Albumin Level 3.8 gm/dl (3.4-5.0); BUN Creatinine Ratio 24.5 (10-20); Bilirubin,Total 0.4 mg/dl (0.2-1.0); Creatinine Clr Calc Pharmacy 40.3 ml/min; Globulin 2.2 gm/dl (2.5-4.0)
[2025-04-01 19:08] LABS: Partial Thromboplastin Time 26 Seconds (21-31); Prothrombin Time 10.6 Seconds (9.0-12.0)
--- NOTE | 2025-04-01 19:17 | XRay Report ---
INDICATION: Pain TECHNIQUE: 3 views of the right ankle were obtained. COMPARISON: None FINDINGS: Small calcific densities by the lateral malleolar tip which could represent an age-indeterminate cortical avulsion injury. Overlying soft tissue swelling over the lateral malleolus. Small calcaneal bone spurs. Small corticated osseous body by the cuboid may represent an os peroneum Vascular calcifications. Orthopedic screws are noted over the hallux metatarsal. Healed deformity of the fifth metatarsal. IMPRESSION: Small calcific densities by the lateral malleolar tip could represent an age-indeterminate cortical avulsion injury. Overlying soft tissue swelling over the lateral malleolus. Electronically signed by Alvin Zaragoza 04-01-2025 7:17 PM
--- NOTE | 2025-04-01 19:17 | XRay Report ---
INDICATION: Pain TECHNIQUE: 4 views of the left ankle were obtained. COMPARISON: Left ankle radiographs October 23, 2023. FINDINGS: There is an osseous body measuring 1.3 cm seen in the lateral view radiograph projecting over the anterior calcaneus along its plantar surface just posteriorly to the cuboid. Please correlate with site of pain for possible acute traumatic avulsion injury to this area. Redemonstrated corticated osseous body by the medial malleolus representing sequela of old avulsion injury. Orthopedic hardware over hallux MTP joint IMPRESSION: Osseous body/fragment measuring 1.3 cm seen in the lateral view radiograph projecting over the anterior calcaneus along its plantar surface and just posteriorly to the cuboid. Please correlate with site of pain for possible acute traumatic avulsion injury to this area. This fragment was not definitively seen in the prior radiograph October 21, 2023. Electronically signed by Alvin Zaragoza 04-01-2025 7:17 PM
--- NOTE | 2025-04-01 19:18 | XRay Report ---
INDICATION: Pain TECHNIQUE: 2 views of the left tibia-fibula were obtained. COMPARISON: None FINDINGS: No displaced acute osseous process is identified. IMPRESSION: No displaced acute osseous process is identified. Electronically signed by Alvin Zaragoza 04-01-2025 7:17 PM
--- NOTE | 2025-04-01 19:27 | XRay Report ---
EXAM: Portable AP chest radiograph TECHNIQUE: AP portable radiograph of the chest was obtained. INDICATION: Shortness of breath Comparison: Chest radiograph October 12, 2024. FINDINGS: LINES and TUBES: None CARDIOVASCULAR: Cardiac silhouette is stably enlarged in size with convexity over the AP window suggesting pulmonary arterial hypertension. Atherosclerosis of the thoracic aorta. Dense mitral valve calcifications. LUNGS/PLEURA: Mild pulmonary vascular congestion is similar to previous radiograph. No focal consolidation identified. No significant pleural fluid. No discernible pneumothorax. OSSEOUS/OTHER: No displaced acute osseous process identified. IMPRESSION: Mild congestive changes of the cardiovascular system that are similar to previous radiograph. Electronically signed by Alvin Zaragoza 04-01-2025 7:24 PM
--- NOTE | 2025-04-01 19:28 | XRay Report ---
INDICATION: Pain TECHNIQUE: 3 views of the left knee were obtained. COMPARISON: None FINDINGS: No displaced acute osseous process is identified. Well-corticated osseous density measuring 7 mm projecting over the medial patellofemoral ligament likely represents sequela of chronic injury/strain. Moderate tricompartmental osteoarthritic changes most previous over the medial compartment and patellofemoral space. No appreciable joint fluid detected. Vascular calcifications. Healed deformity of thefifth digitmetatarsal IMPRESSION: No displaced acute osseous process is identified. Electronically signed by Alvin Zaragoza 04-01-2025 7:24 PM
--- NOTE | 2025-04-01 19:28 | XRay Report ---
INDICATION: Pain TECHNIQUE: 3 views of the right knee were obtained. COMPARISON: None FINDINGS: No displaced acute osseous process is identified. Moderate tricompartmental osteoarthritic changes most previous over the medial compartment and patellofemoral space. No appreciable joint fluid detected. Vascular calcifications. IMPRESSION: No displaced acute osseous process is identified. Electronically signed by Alvin Zaragoza 04-01-2025 7:24 PM
--- NOTE | 2025-04-01 19:37 | CT Scan Report ---
CT MAXILLOFACIAL WITHOUT CONTRAST: HISTORY: Pain TECHNIQUE: Un-enhanced maxillofacial CT examination is performed. Coronal and sagittal reformats were created. IV CONTRAST: None COMPARISON: FINDINGS: No evidence of acute traumatic fracture. The paranasal sinuses and mastoids are well aerated. IMPRESSION: No acute traumatic fracture detected. Electronically signed by Alvin Zaragoza 04-01-2025 7:37 PM
--- NOTE | 2025-04-01 19:37 | CT Scan Report ---
CT CERVICAL SPINE WITHOUT CONTRAST: HISTORY: TRAUMA TECHNIQUE: Noncontrast CT examination of the cervical spine is performed. Coronal and sagittal reformats were created. COMPARISON: None. FINDINGS: CERVICAL SPINE: There is no significant vertebral body height loss. No acute traumatic fracture identified. Mild anterior offsets of C4 and C5, C5 on C6 and C7 on T1. Mild posterior offset of C6 on C7. Multilevel degenerative changes characterized by disc osteophyte complex, bilateral facet and uncovertebral hypertrophy resulting and neural foraminal narrowing at multiple levels, worst at mid to lower spine. Visualized soft tissues of neck are unremarkable. Visualized lung apex is clear. IMPRESSION: No acute traumatic fracture of the cervical spine. Multilevel degenerative changes as above Electronically signed by Alvin Zaragoza 04-01-2025 7:37 PM
--- NOTE | 2025-04-01 19:37 | CT Scan Report ---
CT HEAD: HISTORY: Trauma TECHNIQUE: Noncontrast CT examination of the head is performed. Coronal and sagittal reformats were created. COMPARISON: Brain CT December 28, 2024. FINDINGS: There is no evidence of intracranial hemorrhage, focal mass effect or midline shift. No fluid collection is identified. The ventricular system is midline and symmetric. Cerebral volume loss with expected expected dilatation of the ventricles, the basilar cisterns and prominent sulci. No evidence of acute major vascular territory infarction. Chronic white matter ischemic changes and chronic lacunar infarctions redemonstrated. No calvarial fracture is identified. The paranasal sinuses and mastoids are well aerated. Prominent optic nerve sheath complexes with kinking and partial empty sella could be seen in the setting of idiopathic intracranial hypertension. IMPRESSION: No acute intracranial process identified. Chronic findings as above. Prominent optic nerve sheath complexes with kinking and partial empty sella could be seen in the setting of idiopathic intracranial hypertension. Electronically signed by Alvin Zaragoza 04-01-2025 7:37 PM
[2025-04-01] MEDS: oxyCODONE HCL IR 5 MG TAB (IMMEDIATE RELEASE) PO STA (21:11)
--- NOTE | 2025-04-01 22:00 | History & Physical Report ---
Date of Service April 01, 2025 Assessment & Plan (1) CHF (congestive heart failure): Plan: Decompensated heart failure History of diastolic dysfunction Possibly from CPAP noncompliance Salt tabs contributory (unclear why patient is on medication) Leg swelling secondary to above rule out DVT Facial trauma secondary to fall, history of bladder dysfunction hx CAD status post stent/hx CVA PAF off anticoagulation secondary to fall risk/traumatic subdural hematoma Intermittent right hand sleepiness, symptoms mentioned to patient neurologist on last outpatient visit months ago, consider peripheral neuropathy hypertension, stable hyperlipidemia, on statin Rx DEMARIO current CPAP noncompliance history PE related to OCP use DM2 on oral medications, well-controlled as of last hemoglobin A1c of 5.06 January 2025 hypothyroidism, euthyroid as of today's TSH chronic anemia, hemoglobin at baseline GERD, stable on regimen Admit to PCU Diuretic Rx Strict I/Os, daily weights, CHF education Update TTE, cardiology consult re: CHF Hold salt tablets for now Patient agreeable to wearing her CPAP machine again when she returns home. LE venous Dopplers rule out DVT Hold aspirin for now given facial trauma, resume once H&H stable ISS BG goal 1 10-1 40, carb count coverage PT OT eval DVT prophylaxis. SCDs Re: Facial trauma Full code Patient requests for son to be given updates on her progress. Mr. Titus Palacios, contact #[phone]. Text document was generated using [employer] voice recognition software. It may contain grammatical or spelling errors. Kindly contact undersigned for clarification of any documentation item in question. History of Present Illness Chief Complaint: Fall Primary Care Provider: Lilo Mai MD History obtained from patient and records. Medical history significant for chronic diastolic heart failure (EF 65 to 70%, TTE 2023), CAD status post stent, PAF off anticoagulation secondary to fall risk/traumatic subdural hematoma, CVA, hypertension, hyperlipidemia, DEMARIO current CPAP noncompliance, history PE related to OCP use, DM2 on oral medications, hypothyroidism, chronic anemia (baseline hemoglobin of 11), GERD, hiatal hernia, mood disorder. Last confinement December 2024 for complicated UTI and hypertensive urgency. Patient had fall at home today while walking from the TV room to kitchen using her walker. Stumbled on something. Left facial trauma with a left ankle pain. Denies chest pain, SOB. Fluid retention, bilateral leg swelling and possible weight gain over the last 2 weeks. Compliant with home medications. Stopped using CPAP few months ago because it was waking her up. Patient also complaining of intermittent right hand sleepiness/numbness over the last few months. Denies unusual neck pain. 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 Allergies Allergy/AdvReac Type Severity Reaction Status Date / Time paroxetine Allergy Severe ANAPHYLAXIS Verified 02/08/24 13:35 mold Allergy Intermediate asthma Verified 02/08/24 13:35 symptoms pollen extracts Allergy Intermediate asthma Verified 02/08/24 13:35 symptoms Penicillins Allergy Mild Unknown Verified 02/08/24 13:35 green vasquez Allergy Verified 12/29/24 14:08 peas Allergy Verified 12/29/24 14:09 vasquez AdvReac Intermediate gas and Verified 02/08/24 13:35 bloating with consuption of green or kidneys beans broccoli AdvReac Intermediate GAS Verified 02/08/24 13:35 crab AdvReac Intermediate diarrhea Verified 02/08/24 13:35 grapefruit AdvReac Intermediate BRONCHITIS Verified 02/08/24 13:35 orange AdvReac Intermediate BRONCHITIS Verified 02/08/24 13:35 peanut AdvReac Intermediate Difficulty Verified 12/29/24 14:08 Breathing cauliflower AdvReac Verified 12/29/24 14:09 Home Medications Medication Instructions Recorded Confirmed Type atorvastatin 20 mg tablet 20 mg PO HS 08/22/19 04/01/25 History montelukast 10 mg tablet 10 mg PO HS 08/22/19 04/01/25 History bimatoprost 0.01 % eye drops 1 drp OPB HS 05/08/22 04/01/25 History (Sumeet) fluticasone 250 mcg-salmeterol 50 1 inh inhalation BID 10/23/23 04/01/25 History mcg/dose blistr powdr for inhalation ([facility]) oxybutynin chloride 10 mg 10 mg PO QAM 10/23/23 04/01/25 History tablet,extended release 24 hr levothyroxine 100 mcg tablet 100 mcg PO DAILYBB 12/02/23 04/01/25 History losartan 100 mg tablet 100 mg PO DAILY 02/08/24 04/01/25 History metoprolol tartrate 25 mg tablet 50 mg PO DAILY 02/08/24 04/01/25 History ufmbhqevvivs-zkdrnxfk-lneeut tablet 1 tab PO DAILY 02/08/24 04/01/25 History blood sugar diagnostic ([facility] 08/04/24 12/28/24 History Verio test strips) coenzyme Q10 100 mg capsule 100 mg PO DAILY 08/04/24 04/01/25 History (CoQ-10) lancets 30 gauge ([facility]04[facility] 12/28/24 History Plus Lancet) magnesium oxide 400 mg (241.3 mg 400 mg PO DAILY 08/04/24 04/01/25 History magnesium) tablet potassium chloride 20 mEq 20 meq PO DAILY 08/04/24 04/01/25 History tablet,extended release(part/cryst) ([facility]) aspirin 81 mg tablet,delayed 81 mg PO QAM #30 tabs 10/16/24 04/01/25 Rx release polyethylene glycol 3350 17 gram 17 g PO DAILY PRN laxative effect 10/16/24 04/01/25 Rx oral powder packet (Miralax) #30 ea pantoprazole 40 mg tablet,delayed 40 mg PO DAILY 12/28/24 04/01/25 History release sodium chloride 1,000 mg soluble 1,000 mg PO BID 12/28/24 04/01/25 History tablet amlodipine 5 mg tablet (Norvasc) 10 mg (2 x 5 mg) PO QAM #60 tabs 12/30/24 04/01/25 Rx hydralazine 50 mg tablet 50 mg PO TID #90 tabs 12/30/24 04/01/25 Rx albuterol sulfate 90 mcg/actuation 2 puff inhalation QID PRN SOB 04/01/25 04/01/25 History aerosol inhaler azelastine 137 mcg (0.1 %) nasal 2 spray intranasal QPM 04/01/25 04/01/25 History spray calcium 600 mg (as 1 tab PO DAILY 04/01/25 04/01/25 History carbonate)-vitamin D3 5 mcg (200 unit) tablet chlorthalidone 25 mg tablet 25 mg PO QAM 04/01/25 04/01/25 History fluticasone propionate 50 2 spray intranasal QAM 04/01/25 04/01/25 History mcg/actuation nasal spray,suspension guaifenesin 600 mg tablet, 600 mg PO Q12H PRN Congestion 04/01/25 04/01/25 History extended release 12 hr (Mucinex) ketoconazole 2 % topical cream 1 applic topical DAILY PRN Rash 04/01/25 04/01/25 History vitamin B complex 1 tab PO DAILY 04/01/25 04/01/25 History Past Med/Surg History Problem List CHF (congestive heart failure) Confusion (Acute) Weakness (Acute) Hypertension (Acute) Hypertensive urgency Cervical strain, acute (Acute) Fall (Acute) Head injury (Acute) Drug-induced sinus bradycardia Hiatal hernia with GERD Vasovagal syncope Acute hypoxemic respiratory failure Hypomagnesemia (Acute) Vomiting (Acute) Chest pain (Acute) Syncope (Acute) Hypomagnesemia (Acute) Stroke-like symptoms (Acute) Nausea & vomiting (Acute) Arthralgia Embolic stroke Elevated troponin Near syncope Ambulatory dysfunction (Acute) Chronic pain in left foot (Acute) Hypomagnesemia (Acute) Generalized weakness (Acute) Osteoarthritis of ankle, left HTN (hypertension) Left ankle swelling (Acute) Hypomagnesemia (Acute) Syncope and collapse (Acute) Right rotator cuff tear Right knee DJD Hypokalemia CAD (coronary artery disease) (Chronic) stent in 1999 Anemia (Acute) Postoperative bleeding from mouth (Acute) Orthostatic syncope (Acute) Chronic anticoagulation (Acute) Near syncope DVT prophylaxis Postoperative bleeding from mouth History of rotator cuff surgery (Chronic) History of cataract extraction (Chronic) T2DM (type 2 diabetes mellitus) (Chronic) HTN (hypertension) (Chronic) HLD (hyperlipidemia) (Chronic) PAF (paroxysmal atrial fibrillation) (Chronic) DEMARIO (obstructive sleep apnea) (Chronic) Asthma (Chronic) CKD (chronic kidney disease) stage 3, GFR 30-59 ml/min (Chronic) Primary open angle glaucoma (Chronic) History of arthroscopic knee surgery (Chronic) History of tonsillectomy (Chronic) GERD (gastroesophageal reflux disease) (Chronic) History of appendectomy (Chronic) Hypothyroidism (Chronic) History of placement of stent in LAD coronary artery (Chronic) Sleep apnea (Chronic) Stented coronary artery (Chronic) Family History Father CHF (congestive heart failure) Mother Cancer Social History Smoking Status: Never smoker Second Hand Exposure: Yes; Do You Dip or Chew Tobacco: No; Tobacco Cessation Education Requested by Patient: No Hx Alcohol Use: No Hx Substance Use: No Preferred Language: Czech Communication Ability: Effective V/Stol Landing Signal Officer Required: No Beliefs That Will Affect Care: None marital status: Life Partner Current Living Situation: Significant Other Current Living Situation Comment: s/o Other Information That Helps Us Care for You: Yes (S.O with dementia) Feels Safe at Home: Yes Safety Concerns: Feels Safe At This Time Assistive Devices: Glasses and Walker Review of Systems Review of Systems: As per HPI, all other systems reviewed and negative Physical Exam Physical Exam: GENERAL: Slightly uncomfortable, obese, pleasant, no respiratory distress SKIN: Pallor, warm HEENT: Patch with ice pack over left eye, pale palpebral conjunctivae, no ptosis, moist buccal mucosa NECK : Supple, no tenderness CHEST : Decreased breath sounds, no tenderness HEART : RRR, systolic murmur ABDOMEN: Some distention, nontender EXTREMITIES : Bilateral LE swelling, no LE tenderness, no other conspicuous deformities noted NEUROLOGIC : Coherent, no facial asymmetry, no other gross focality Results & Data Results & Data Vital Signs (Past 12 Hours) Vital Signs Temp Pulse Pulse Resp BP BP Pulse Ox 04/01/25 21:49 55 L 04/01/25 20:06 55 L 15 137/64 94 04/01/25 18:07 60 04/01/25 17:39 37.0 C 62 18 133/58 L 94 04/01/25 17:39 37.0 C 62 18 133/58 L 94 O2 Del Method 04/01/25 21:49 04/01/25 20:06 Room Air 04/01/25 18:07 04/01/25 17:39 Room Air 04/01/25 17:39 Room Air Laboratory Results Laboratory Results WBC 6.96 K/ul (4.8-10.8) 04/01/25 18:11 RBC 3.61 M/uL (4.20-5.40) L 04/01/25 18:11 Hgb 11.0 g/dl (12.0-16.0) L 04/01/25 18:11 Hct 32.9 % (37.0-47.0) L 04/01/25 18:11 MCV 91.1 fL (80.0-100.0) 04/01/25 18:11 MCH 30.5 pg (25.0-34.0) 04/01/25 18:11 MCHC 33.4 g/dL (32.0-36.0) 04/01/25 18:11 RDW Std Deviation 49.1 fL (36.4-46.3) H 04/01/25 18:11 RDW Coeff of Stoney 14.8 % (11.5-14.5) H 04/01/25 18:11 Plt Count 300 K/uL (130-400) 04/01/25 18:11 MPV 11.0 fL (9.4-12.4) 04/01/25 18:11 Immature Gran % (Auto) 0.3 % 04/01/25 18:11 Neut % (Auto) 70.2 % 04/01/25 18:11 Lymph % (Auto) 14.4 % 04/01/25 18:11 Surry % (Auto) 12.8 % 04/01/25 18:11 Eos % (Auto) 1.7 % 04/01/25 18:11 Baso % (Auto) 0.6 % 04/01/25 18:11 Neut # (Auto) 4.89 K/uL (1.40-6.50) 04/01/25 18:11 Lymph # (Auto) 1.00 K/uL (1.20-3.40) L 04/01/25 18:11 Surry # (Auto) 0.89 K/uL (0.11-0.59) H 04/01/25 18:11 Eos # (Auto) 0.12 K/uL (0.00-0.50) 04/01/25 18:11 Baso # (Auto) 0.04 K/uL (0.00-0.20) 04/01/25 18:11 Immature Gran # (Auto) 0.02 K/uL (0.01-0.20) 04/01/25 18:11 PT 10.6 Seconds (9.0-12.0) 04/01/25 18:11 INR 1.0 (0.9-1.1) 04/01/25 18:11 APTT 26 Seconds (21-31) 04/01/25 18:11 PTT Ratio 1.0 04/01/25 18:11 Sodium 135 mmol/L (136-145) L 04/01/25 18:11 Potassium 4.0 mmol/L (3.5-5.1) 04/01/25 18:11 Chloride 102 mmol/L (98-107) 04/01/25 18:11 Carbon Dioxide 27 mmol/L (21-32) 04/01/25 18:11 Anion Gap 6 (3-11) 04/01/25 18:11 BUN 23 mg/dl (6-23) 04/01/25 18:11 Creatinine 0.94 mg/dl (0.6-1.2) 04/01/25 18:11 Est Cr Clr Drug Dosing 40.3 ml/min 04/01/25 18:11 eGFR 59.09 04/01/25 18:11 BUN/Creatinine Ratio 24.5 (10-20) H 04/01/25 18:11 Glucose 125 mg/dl (70-99(Fasting)) H 04/01/25 18:11 Calcium 9.0 mg/dl (8.6-10.3) 04/01/25 18:11 Total Bilirubin 0.4 mg/dl (0.2-1.0) 04/01/25 18:11 AST 14 U/L (13-39) 04/01/25 18:11 ALT 9 U/L (7-52) 04/01/25 18:11 Alkaline Phosphatase 62 U/L (34-104) 04/01/25 18:11 Total Protein 6.0 gm/dl (6.0-8.3) 04/01/25 18:11 Albumin 3.8 gm/dl (3.4-5.0) 04/01/25 18:11 Globulin 2.2 gm/dl (2.5-4.0) L 04/01/25 18:11 Albumin/Globulin Ratio 1.7 (0.9-2) 04/01/25 18:[address] 04/01/25 18:19 CT CERVICAL SPINE WITHOUT CONTRAST: HISTORY: TRAUMA TECHNIQUE: Noncontrast CT examination of the cervical spine is performed. Coronal and sagittal reformats were created. COMPARISON: None. FINDINGS: CERVICAL SPINE: There is no significant vertebral body height loss. No acute traumatic fracture identified. Mild anterior offsets of C4 and C5, C5 on C6 and C7 on T1. Mild posterior offset of C6 on C7. Multilevel degenerative changes characterized by disc osteophyte complex, bilateral facet and uncovertebral hypertrophy resulting and neural foraminal narrowing at multiple levels, worst at mid to lower spine. Visualized soft tissues of neck are unremarkable. Visualized lung apex is clear. IMPRESSION: No acute traumatic fracture of the cervical spine. Multilevel degenerative changes as above Electronically signed by Alvin Zaragoza 04-01-2025 7:37 PM Chest X-Ray 04/01/25 18:19 EXAM: Portable AP chest radiograph TECHNIQUE: AP portable radiograph of the chest was obtained. INDICATION: Shortness of breath Comparison: Chest radiograph October 12, 2024. FINDINGS: LINES and TUBES: None CARDIOVASCULAR: Cardiac silhouette is stably enlarged in size with convexity over the AP window suggesting pulmonary arterial hypertension. Atherosclerosis of the thoracic aorta. Dense mitral valve calcifications. LUNGS/PLEURA: Mild pulmonary vascular congestion is similar to previous radiograph. No focal consolidation identified. No significant pleural fluid. No discernible pneumothorax. OSSEOUS/OTHER: No displaced acute osseous process identified. IMPRESSION: Mild congestive changes of the cardiovascular system that are similar to previous radiograph. Electronically signed by Alvin Zaragoza 04-01-2025 7:[address] 04/01/25 18:19 CT MAXILLOFACIAL WITHOUT CONTRAST: HISTORY: Pain TECHNIQUE: Un-enhanced maxillofacial CT examination is performed. Coronal and sagittal reformats were created. IV CONTRAST: None COMPARISON: FINDINGS: No evidence of acute traumatic fracture. The paranasal sinuses and mastoids are well aerated. IMPRESSION: No acute traumatic fracture detected. Electronically signed by Alvin Zaragoza 04-01-2025 7:[address] 04/01/25 18:19 CT HEAD: HISTORY: Trauma TECHNIQUE: Noncontrast CT examination of the head is performed. Coronal and sagittal reformats were created. COMPARISON: Brain CT December 28, 2024. FINDINGS: There is no evidence of intracranial hemorrhage, focal mass effect or midline shift. No fluid collection is identified. The ventricular system is midline and symmetric. Cerebral volume loss with expected expected dilatation of the ventricles, the basilar cisterns and prominent sulci. No evidence of acute major vascular territory infarction. Chronic white matter ischemic changes and chronic lacunar infarctions redemonstrated. No calvarial fracture is identified. The paranasal sinuses and mastoids are well aerated. Prominent optic nerve sheath complexes with kinking and partial empty sella could be seen in the setting of idiopathic intracranial hypertension. IMPRESSION: No acute intracranial process identified. Chronic findings as above. Prominent optic nerve sheath complexes with kinking and partial empty sella could be seen in the setting of idiopathic intracranial hypertension. Electronically signed by Alvin Zaragoza 04-01-2025 7:37 PM Ankle X-Ray 04/01/25 18:20 INDICATION: Pain TECHNIQUE: 4 views of the left ankle were obtained. COMPARISON: Left ankle radiographs October 23, 2023. FINDINGS: There is an osseous body measuring 1.3 cm seen in the lateral view radiograph projecting over the anterior calcaneus along its plantar surface just posteriorly to the cuboid. Please correlate with site of pain for possible acute traumatic avulsion injury to this area. Redemonstrated corticated osseous body by the medial malleolus representing sequela of old avulsion injury. Orthopedic hardware over hallux MTP joint IMPRESSION: Osseous body/fragment measuring 1.3 cm seen in the lateral view radiograph projecting over the anterior calcaneus along its plantar surface and just posteriorly to the cuboid. Please correlate with site of pain for possible acute traumatic avulsion injury to this area. This fragment was not definitively seen in the prior radiograph October 21, 2023. Electronically signed by Alvin Zaragoza 04-01-2025 7:17 PM Knee X-Ray 04/01/25 18:20 INDICATION: Pain TECHNIQUE: 3 views of the left knee were obtained. COMPARISON: None FINDINGS: No displaced acute osseous process is identified. Well-corticated osseous density measuring 7 mm projecting over the medial patellofemoral ligament likely represents sequela of chronic injury/strain. Moderate tricompartmental osteoarthritic changes most previous over the medial compartment and patellofemoral space. No appreciable joint fluid detected. Vascular calcifications. Healed deformity of thefifth digitmetatarsal IMPRESSION: No displaced acute osseous process is identified. Electronically signed by Alvin Zaragoza 04-01-2025 7:24 PM Tibia/Fibula X-Ray 04/01/25 18:20 INDICATION: Pain TECHNIQUE: 2 views of the left tibia-fibula were obtained. COMPARISON: None FINDINGS: No displaced acute osseous process is identified. IMPRESSION: No displaced acute osseous process is identified. Electronically signed by Alvin Zaragoza 04-01-2025 7:17 PM Diagnostic Findings EKG as per my interpretation :Rate 60, NSR, LAD, LAFB, LVH, no ischemia
[2025-04-01] MEDS ORDERED: FUROSEMIDE INJ 20 MG/2 ML VIAL IV STA (22:03)
[2025-04-01] MEDS ORDERED: PROMETHAZINE 6.25 MG/50.25 ML BAG IV PRN (22:03)
[2025-04-01 22:25] LABS: Magnesium 1.8 mg/dl (1.7-2.4)
[2025-04-01 22:35] LABS: Thyroid Stimulating Hormone 0.619 uIu/ml (0.300-4.500)
[2025-04-01] MEDS ORDERED: GLUCAGON FOR INJ 1 MG VIAL SQ PRN (23:13)
[2025-04-01] MEDS ORDERED: GLUCOSE 40% GEL 15 GM TUBE PO PRN (23:13)
[2025-04-01] MEDS ORDERED: DEXTROSE 50% 50 ML SYRINGE IV PRN (23:13)
[2025-04-01] MEDS ORDERED: GLUCOSE 10 TAB/TUBE PO PRN (23:13)
[2025-04-01] MEDS ORDERED: CARBOHYDRATES FOR HYPOGLYCEMIA PO PRN (23:13)
[2025-04-02] MEDS: INSULIN ASPART PER UNIT CHARGE SC SCH (00:32)
[2025-04-02] MEDS: ATORVASTATIN 20 MG TAB PO SCH (00:32)
[2025-04-02] MEDS: hydrALAZINE TAB 50 MG TAB PO SCH (00:32)
[2025-04-02] MEDS: FUROSEMIDE INJ 20 MG/2 ML VIAL IV STA (00:39)
--- NOTE | 2025-04-02 00:48 | Ultrasound Report ---
EXAM: US venous doppler LE BI CLINICAL HISTORY: swelling TECHNIQUE: Ultrasound examination of bilateral lower extremity veins was performed in real time and duplex. One or more of the following were performed- spectral analysis, resistive index, waveform analysis, and pulsed Doppler. COMPARISON: 10/23/2023 FINDINGS: Normal phasic, non-pulsatile and spontaneous flow is noted in bilateral common femoral, saphenofemoral junction, proximal great saphenous, superficial femoral, deep femoral, popliteal, anterior tibial, posterior tibial, and peroneal veins. Visualized veins of both lower extremities demonstrate normal compressibility. No sonographic evidence of acute deep vein thrombosis (DVT) is detected in the visualized veins of both lower extremities. Compression and Augmentation: All evaluated veins compress fully with applied transducer pressure. Augmentation of venous flow is noted with distal compression. Additional Findings: No evidence of intraluminal thrombus. A cystic area is seen in posterior medial left knee measures 5.2 x 4.4 x 1.1 cm. IMPRESSION: 1. No sonographic evidence of acute DVT detected in bilateral common femoral, saphenofemoral junction, proximal great saphenous, superficial femoral, deep femoral, popliteal, anterior tibial, posterior tibial and peroneal veins, at the time of examination.(no interval changes) 2. A 5.2 cm possible left templeton's cyst.(new) Disclaimer: DVT could be missed early in the disease when clot burden is minimal. For patients with moderate and high pretest probability of DVT and negative ultrasound, the [employer] clinical guidelines recommend testing with a D-dimer assay or repeat ultrasound in 5-7 days. If symptoms worsen, the Society of radiologists in ultrasound recommends repeating ultrasound even earlier. Electronically signed by Marco Butler 04-02-2025 12:48 AM
[2025-04-02] MEDS: LEVOTHYROXINE SODIUM 100 MCG TABLET PO SCH (06:00)
[2025-04-02 06:58] LABS: Basophils # (auto) 0.05 K/uL (0.00-0.20); Basophils % (auto) 0.6 %; Eosinophils # (auto) 0.19 K/uL (0.00-0.50); Eosinophils % (auto) 2.2 %; Hematocrit (blood only) 32.5 % (37.0-47.0); Hemoglobin 10.8 g/dl (12.0-16.0); Immature Granulocytes # (auto) 0.04 K/uL (0.01-0.20); Immature Granulocytes % (auto) 0.5 %; Lymphocytes # (auto) 1.14 K/uL (1.20-3.40); Lymphocytes % (auto) 13.4 %; Mean Corpuscular Hgb Conc 33.2 g/dL (32.0-36.0); Mean Corpuscular Volume 90.3 fL (80.0-100.0); Mean Platelet Volume 10.4 fL (9.4-12.4); Monocytes # (auto) 1.05 K/uL (0.11-0.59); Monocytes % (auto) 12.3 %; Neutrophils # (auto) 6.04 K/uL (1.40-6.50); Platelet Count 281 K/uL (130-400); RDW Coefficient of Variation 14.7 % (11.5-14.5); RDW Standard Deviation 48.5 fL (36.4-46.3); White Blood Count 8.51 K/ul (4.8-10.8)
[2025-04-02 07:14] LABS: BUN Creatinine Ratio 28.9 (10-20); Calcium 9.4 mg/dl (8.6-10.3); Creatinine Clr Calc Pharmacy 43.2 ml/min; Potassium 3.8 mmol/L (3.5-5.1)
--- NOTE | 2025-04-02 07:37 | XRay Report ---
EXAM: XR chest 1V portable CLINICAL HISTORY: F/U CHF JTF/TGB. TECHNIQUE: An X-ray image of the chest is obtained in AP projection. COMPARISON: CR 04/01/2025. FINDINGS: Pulmonary Parenchyma: Bilateral prominent bronchovascular markings, likely mild pulmonary congestion. No evidence of consolidation, collapse, or focal opacities. No pulmonary nodules are identified. No evidence of pleural effusion or pleural thickening. Heart and Mediastinum: Cardiomegaly. Prominent vascular hilar shadow. Aortic atherosclerotic calcifications. Dense mitral valve calcifications. No mediastinal widening or masses. No hilar or mediastinal lymphadenopathy. Bony Thorax: Bony thorax appears intact without fractures or deformities. Thoracic vertebral degenerative changes. Soft Tissues: Soft tissues overlying the chest wall are unremarkable. IMPRESSION: 1. Bilateral prominent bronchovascular markings, likely mild pulmonary congestion. Mild improvement compared to CR 04/01/2025. 2. Cardiomegaly. Prominent vascular hilar shadow. Stable. Electronically signed by Marco Butler 04-02-2025 07:36 AM
--- NOTE | 2025-04-02 07:50 | Hospitalist Progress Note ---
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 L facial bruising and L ankle pain s/p mechanical fall. Personally reviewed all trauma imaging completed in the ED. Head and cervical spine CT w/o any evidence of acute fractures. R ankle XR with soft tissue swelling overlying the lateral malleolus but no acute fractures. Bilateral knee and L tib/fib XRs w/o any evidence of acute fractures. L Ankle XR: Osseous body/fragment measuring 1.3 cm seen in the lateral view radiograph projecting over the anterior calcaneus along its plantar surface and just posteriorly to the cuboid. Possible acute traumatic avulsion injury to this area. Will check L foot+ankle CT w/o contrast for further evaluation. Head CT: Prominent optic nerve sheath complexes with kinking and partial empty sella could be seen in the setting of idiopathic intracranial hypertension. * Discussed finding with patient at bedside this morning. Will check brain MRI w/o contrast to exclude other potential causes of increased intracranial pressure. Obtain PT/OT evaluations. Continue fall precautions. Goal for patient to return back home with her if able. Has previously used [facility] services. (2) Acute on chronic heart failure with preserved ejection fraction: Plan: Follows with [facility] [address] cardiology as an outpatient. BLE venous Doppler US obtained 2/2 BLE edema. No sonographic evidence of acute DVT. Acute on chronic HFpEF on admission as evidenced by BLE edema, weight gain and congestive findings on CXR imaging. BNP 556. Weight gain of approximately 13kg since her prior admission in December. Weight down 4.5kg since admission s/p 20mg IV Lasix thus far. Unsure why patient is on salt tablets following chart review. Salt tablets discontinued as these can contribute to fluid retention/volume overload. Prior TTE from January 2024 with LVEF = 65-70%, moderate posterior mitral annular calcification and grade I DD. Reviewed updated TTE from this admission: LVEF = 60-65%, no regional wall motion abnormalities, moderately dilated LA, moderate to severe posterior mitral annular calcification, mild MR, mild TR, moderate pulmonary HTN with pulmonary artery systolic pressure of 56mmHg and grade II DD. Appreciate cardiology consultation. Will discuss above updated TTE findings with the patient later this afternoon. Repeat CXR this morning with mild improvement in pulmonary congestion. 1+ BLE edema on exam earlier this morning. -1150mL urine output. Will give an additional 20mg IV Lasix for now pending cardiology evaluation. Continue strict I&Os, daily standing weights (as able) and CHF education. Hold home chlorthalidone. (3) Diabetes mellitus type 2, diet-controlled: Plan: Currently diet-controlled. Used to be on metformin. Hgb A1c 5.8% 2 months ago. SSI regimen as per inpatient protocol. BSG checks ACHS. (4) CAD (coronary artery disease): Plan: Remote PCI with LAD stent placement in 1999. ASA previously held 2/2 facial trauma s/p fall as per above. Restart ASA tomorrow if H/H remains stable. (5) PAF (paroxysmal atrial fibrillation): Plan: No longer on anticoagulation 2/2 history of traumatic subdural hematoma in September 2024 and recurrent falls. Last episode of PAF in 2011 without documented recurrence. Continue telemetry monitoring; No evidence of AFib on telemetry so far this admission. Last saw [facility] [address] cardiology in September 2024. Continue Lopressor. (6) Hypertension: Plan: Continue losartan and hydralazine. Hold amlodipine for now as BP is well-controlled with the above medications. Continue routine BP monitoring with hold parameters. (7) DEMARIO (obstructive sleep apnea): Plan: Prior issues with CPAP intolerance 2/2 mask discomfort. Agreeable with CPAP HS while admitted. Education provided on the importance of wearing her CPAP at bedside this morning. Patient mentions that she is going to try and start wearing her CPAP at home again. (8) History of CVA (cerebrovascular accident): Plan: History of embolic CVA in November 2023 with residual L-sided weakness and word finding difficulty. Other Chronic Medical Conditions: Asthma - Well-controlled. Continue Singular. Urinary Incontinence - Continue Ditropan XL. Chronic Anemia - Hgb around baseline. Continue daily CBC monitoring. GERD - Continue PPI. HLD - Continue statin. Hypothyroidism - TSH WNL this admission. Continue home levothyroxine dose. DVT Prophylaxis: SCDs/TEDs given recent fall and facial trauma. Code Status: FULL CODE PCP: Lilo Mai MD Disposition: Discharge plans uncertain at this time. Continue above plans of care. Patient seen in collaboration with Dr. Nicolas. Please see addendum. I spent a total of 58 minutes coordinating, documenting, and providing care for this patient excluding time spent in the performance of separately billed services or time spent by another provider/QHP. This included personally reviewing all current laboratories and imaging studies, medical reconciliation, outpatient chart review and discussion with specialists. This chart was completed in part utilizing Speech Voice Recognition Software. Grammatical errors, random word insertions, pronoun errors, and incomplete sentences are an occasional consequence of this system due to software limitations, ambient noise, and hardware issues. Any formal questions or concerns about the content, text, or information contained within the body of this dictation should be directly addressed to the provider for clarification. Admission and Anticipated Discharge Date Admission Date: April 01, 2025 Supervising Physician Co-Signing Physician Notes Case reviewed with the advanced practitioner. I have reviewed the advanced practitioner's documentation on the date of service referenced in note, and I agree with, and take responsibility for the plan of care. please refer to her notes for full details patient seen and examined, records reviewed by myself as well diagnoses and plan of care as per advanced practitioner's notes I spent a total of 20 minutes coordinating, documenting, and providing care for this patient, excluding time spent in the performance of separately billed services or time spent by another provider/QHP. Wilton Nicolas MD Subjective Patient seen and examined in room S242-1. NAEO. Down 4.5kg since admission s/p 20mg IV Lasix. Feels her BLE edema has improved since receiving the dose of Lasix. Has significant bruising under her L eye from the fall which occurred after she tripped over a bump in her arun. Currently lives at home with her . Her son, Titus, lives locally and checks up on them frequently. Unsure why she is on salt tablets. Cannot recall ever being told that she issues with her sodium level. Stopped using her CPAP a few months ago as it was uncomfortable. Having some L-sided neck pain this morning. Also endorses a dull, achy headache but denies any visual changes or N/V. Not currently experiencing any pain in her L foot or ankle at rest. Has chronic LUE and LLE weakness s/p prior embolic CVA in November 2023. Uses walker at baseline. No longer drives. Review of Systems Review of Systems: At least ten systems reviewed and negative, except as noted in the subjective section. Physical Exam Physical Exam: General: Elderly, F. NAD. Sitting up in bed. Very pleasant. A&Ox4. HEENT: Normocephalic, atraumatic. Conjunctivae normal. External ear and nose normal, oropharynx normal. Respiratory: Normal respiratory effort. Saturating in the mid 90s SpO2 on RA. Minimal bibasilar rales. No accessory muscle use. Cardiovascular: Regular rate and rhythm. 1+ BLE edema. + systolic murmur. Normal peripheral pulses. Abdomen/GI: Normal bowel sounds, soft, nondistended, nontender to palpation in all quadrants. Extremities/MSK: No cyanosis or clubbing. Chronic LUE and LLE weakness s/p prior CVA. Actively moves all extremities. Neurologic: No overt focal deficits. CN's II-XI not formally tested but appear grossly intact bilaterally. Some word finding difficulties s/p prior CVA. Results & Data Results & Data Vital Signs (Past 12 Hours) Vital Signs Temp Pulse Pulse Resp BP BP Pulse Ox 04/02/25 07:31 58 L 04/02/25 07:31 04/02/25 07:19 36.4 C L 55 L 18 152/70 H 97 04/02/25 02:57 36.4 C L 56 L 18 128/69 96 04/01/25 23:30 04/01/25 23:23 54 L 181/70 H 04/01/25 23:08 57 L 04/01/25 23:00 36.5 C 55 L 20 186/71 H 96 04/01/25 22:49 56 L 17 148/67 H 91 04/01/25 21:49 55 L 04/01/25 20:06 55 L 15 137/64 94 O2 Del Method 04/02/25 07:31 04/02/25 07:31 Room Air 04/02/25 07:19 Room Air 04/02/25 02:57 Room Air 04/01/25 23:30 Room Air 04/01/25 23:23 04/01/25 23:08 04/01/25 23:00 Room Air 04/01/25 22:49 Room Air 04/01/25 21:49 04/01/25 20:06 Room Air Laboratory Results Short CBC 04/01/25 04/02/25 Range/Units 18:11 06:40 WBC 6.96 8.51 (4.8-10.8) K/ul Hgb 11.0 L 10.8 L (12.0-16.0) g/dl Hct 32.9 L 32.5 L (37.0-47.0) % Plt Count 300 281 (130-400) K/uL BMP 04/01/25 04/02/25 18:11 06:40 Sodium 135 L 136 Potassium 4.0 3.8 Chloride 102 101 Carbon Dioxide 27 27 BUN 23 24 H Creatinine 0.94 0.83 Glucose 125 H 103 H Calcium 9.0 9.4 Liver Function 04/01/25 Range/Units 18:11 Total Bilirubin 0.4 (0.2-1.0) mg/dl AST 14 (13-39) U/L ALT 9 (7-52) U/L Alkaline Phosphatase 62 (34-104) U/L Albumin 3.8 (3.4-5.0) gm/dl (1) Fall Encounter type: initial encounter Qualified Code(s): W19.XXXA - Unspecified fall, initial encounter (4) CAD (coronary artery disease) Associated angina: without angina Coronary Disease-Associated Artery/Lesion type: [place] artery [place] vs. transplanted heart: [place] heart Qualified Code(s): I25.10 - Atherosclerotic heart disease of [place] coronary artery without angina pectoris (6) Hypertension Hypertension type: unspecified Qualified Code(s): I10 - Essential (primary) hypertension
[2025-04-02] MEDS: CALCIUM 600MG + VIT D 400 IU TAB PO SCH (08:15)
[2025-04-02] MEDS: OXYBUTYNIN CHLORIDE XL 5 MG TABCR PO SCH (08:16)
[2025-04-02] MEDS: PANTOprazole 40 MG TAB PO SCH (08:16)
[2025-04-02] MEDS: VITAMIN B COMPLEX TAB PO SCH (08:16)
[2025-04-02] MEDS: CEROVITE ADV FORMULA TAB PO SCH (08:16)
[2025-04-02] MEDS: METOPROLOL TARTRATE 50 MG TAB PO SCH (08:16)
[2025-04-02] MEDS: LOSARTAN POTASSIUM 50 MG TAB PO SCH (08:16)
[2025-04-02] MEDS: FLUTICASONE/VILANTEROL 100/25MCG 14 PUFFS/INHALER INH SCH (08:17)
--- NOTE | 2025-04-02 08:54 | Electrocardiogram Report ---
Test Reason : Blood Pressure : */* mmHG Vent. Rate : 61 BPM Atrial Rate : 61 BPM P-R Int : 194 ms QRS Dur : 96 ms QT Int : 430 ms P-R-T Axes : 66 -18 48 degrees QTcB Int : 432 ms Normal sinus rhythm Minimal voltage criteria for LVH, may be normal variant ( Baron product ) Borderline ECG When compared with ECG of 28-Dec-2024 11:15, No significant change was found Confirmed by Dara Solis ([id number]) on 04/02/2025 8:54:34 AM Referred By: REFERRED SELF Confirmed By: Dara Solis
[2025-04-02] MEDS ORDERED: hydrALAZINE TAB 50 MG TAB PO SCH (09:00)
--- NOTE | 2025-04-02 09:01 | Electrocardiogram Report ---
Test Reason : Blood Pressure : */* mmHG Vent. Rate : 56 BPM Atrial Rate : 56 BPM P-R Int : 204 ms QRS Dur : 96 ms QT Int : 450 ms P-R-T Axes : 59 -19 26 degrees QTcB Int : 434 ms Sinus bradycardia Minimal voltage criteria for LVH, may be normal variant ( Baron product ) Borderline ECG When compared with ECG of 01-Apr-2025 17:39, (unconfirmed) No significant change was found Confirmed by Dara Solis ([id number]) on 04/02/2025 9:01:25 AM Referred By: REFERRED SELF Confirmed By: Dara Solis
[2025-04-02] MEDS: LIDOCAINE 5% 1 PATCH TD SCH (11:52)
--- NOTE | 2025-04-02 12:10 | Cardiology Consultation ---
Date of Consultation April 02, 2025 Assessment & Plan (1) Acute on chronic heart failure with preserved ejection fraction: Per review of chart, she was discharged from this institution in September, sodium chloride tablets do not appear to be on her medication list. I question if these were added at some point due to concerns of hyponatremia which she has had on occasion. At this point recommend proceeding without sodium chloride supplement. She is prescribed furosemide 20 mg daily as an outpatient. This is on hold with plans to administer furosemide 20 mg x 1 today which has already been ordered by the primary service. Due to history of stroke findings on previous MRI of the brain she had been on Eliquis for empiric stroke prophylaxis but this was discontinued due to fall with traumatic subdural hematoma in September, and she was transitioned to low-dose aspirin at that time. At present she is off of the aspirin which I think is reasonable given her recent trauma. History of Present Illness Attending Physician: Wilton Nicolas MD History of Present Illness Yudelka Palacios is an 85 year old female seen in cardiology consultation per the request of Dr Arreola for the evaluation of acute on chronic congestive heart failure. Patient well-known to the undersigned as I followed her as an inpatient and outpatient for a number of years. The patient lives with her significant other. Her son, Titus, is very involved with her care. Patient describes having presented after a mechanical fall. She states her foot was stuck transitioning from the linoleum floor to the carpet. Trauma workup was negative. Initial chest x-ray suggested mild interstitial edema. At present, patient denies any shortness of breath at rest. Denies recent chest discomfort or palpitations. History: 1.Paroxysmal atrial fibrillation (12/2011). No documented recurrence, however hospitalized at [facility] in November, with decline in cognition and MRI of the brain which revealed scattered small acute infarcts consistent with embolic etiology therefore therapy with Eliquis initiated at that time. Eliquis Subsequently discontinued, September, at time of presentation with mechanical fall, traumatic subdural hematoma 2.Stable chronic coronary heart disease without angina, remote PCI stent in approximately 1999 ago at [place], [place]. 3.Dyslipidemia 4.Diastolic dysfunction 5.DEMARIO Allergies Allergy/AdvReac Type Severity Reaction Status Date / Time paroxetine Allergy Severe ANAPHYLAXIS Verified 02/08/24 13:35 mold Allergy Intermediate asthma Verified 02/08/24 13:35 symptoms pollen extracts Allergy Intermediate asthma Verified 02/08/24 13:35 symptoms Penicillins Allergy Mild Unknown Verified 02/08/24 13:35 green vasquez Allergy Verified 12/29/24 14:08 peas Allergy Verified 12/29/24 14:09 vasquez AdvReac Intermediate gas and Verified 02/08/24 13:35 bloating with consuption of green or kidneys beans broccoli AdvReac Intermediate GAS Verified 02/08/24 13:35 crab AdvReac Intermediate diarrhea Verified 02/08/24 13:35 grapefruit AdvReac Intermediate BRONCHITIS Verified 02/08/24 13:35 orange AdvReac Intermediate BRONCHITIS Verified 02/08/24 13:35 peanut AdvReac Intermediate Difficulty Verified 12/29/24 14:08 Breathing cauliflower AdvReac Verified 12/29/24 14:09 Home Medications Medication Instructions Recorded Confirmed Type atorvastatin 20 mg tablet 20 mg PO HS 08/22/19 04/02/25 History montelukast 10 mg tablet 10 mg PO HS 08/22/19 04/02/25 History bimatoprost 0.01 % eye drops 1 drp OPB HS 05/08/22 04/02/25 History (Sumeet) fluticasone 250 mcg-salmeterol 50 1 inh inhalation BID 10/23/23 04/02/25 History mcg/dose blistr powdr for inhalation (Wixela Inhub) oxybutynin chloride 10 mg 10 mg PO QAM 10/23/23 04/02/25 History tablet,extended release 24 hr levothyroxine 100 mcg tablet 100 mcg PO DAILYBB 12/02/23 04/02/25 History losartan 100 mg tablet 100 mg PO DAILY 02/08/24 04/02/25 History metoprolol tartrate 25 mg tablet 50 mg PO DAILY 02/08/24 04/02/25 History mjivbvbyblub-pmbukmbk-khbntm tablet 1 tab PO DAILY 02/08/24 04/02/25 History blood sugar diagnostic ([facility] 08/04/24 04/02/25 History Verio test strips) coenzyme Q10 100 mg capsule 100 mg PO DAILY 08/04/24 04/02/25 History (CoQ-10) lancets 30 gauge ([facility] Delica 08/04/24 04/02/25 History Plus Lancet) magnesium oxide 400 mg (241.3 mg 400 mg PO DAILY 08/04/24 04/02/25 History magnesium) tablet potassium chloride 20 mEq 20 meq PO DAILY 08/04/24 04/02/25 History tablet,extended release(part/cryst) (Klor-Con M) aspirin 81 mg tablet,delayed 81 mg PO QAM #30 tabs 10/16/24 04/02/25 Rx release polyethylene glycol 3350 17 gram 17 g PO DAILY PRN laxative effect 10/16/24 04/02/25 Rx oral powder packet (Miralax) #30 ea pantoprazole 40 mg tablet,delayed 40 mg PO DAILY 12/28/24 04/02/25 History release sodium chloride 1,000 mg soluble 1,000 mg PO BID 12/28/24 04/02/25 History tablet amlodipine 5 mg tablet (Norvasc) 10 mg (2 x 5 mg) PO QAM #60 tabs 12/30/24 04/02/25 Rx hydralazine 50 mg tablet 50 mg PO TID #90 tabs 12/30/24 04/02/25 Rx albuterol sulfate 90 mcg/actuation 2 puff inhalation QID PRN SOB 04/01/25 04/02/25 History aerosol inhaler azelastine 137 mcg (0.1 %) nasal 2 spray intranasal QPM 04/01/25 04/02/25 History spray calcium 600 mg (as 1 tab PO DAILY 04/01/25 04/02/25 History carbonate)-vitamin D3 5 mcg (200 unit) tablet chlorthalidone 25 mg tablet 25 mg PO QAM 04/01/25 04/02/25 History fluticasone propionate 50 2 spray intranasal QAM 04/01/25 04/02/25 History mcg/actuation nasal spray,suspension guaifenesin 600 mg tablet, 600 mg PO Q12H PRN Congestion 04/01/25 04/02/25 History extended release 12 hr (Mucinex) ketoconazole 2 % topical cream 1 applic topical DAILY PRN Rash 04/01/25 04/02/25 History vitamin B complex 1 tab PO DAILY 04/01/25 04/02/25 History Patient History Family History Father CHF (congestive heart failure) Mother Cancer Social History Smoking Status: Never smoker Second Hand Exposure: Yes; Do You Dip or Chew Tobacco: No; Tobacco Cessation Education Requested by Patient: No Hx Alcohol Use: No Hx Substance Use: No Preferred Language: Latvian Communication Ability: Effective 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 Beliefs That Will Affect Care: None marital status: Life Partner Current Living Situation: Significant Other Current Living Situation Comment: s/o Other Information That Helps Us Care for You: Yes (S.O with dementia) Feels Safe at Home: Yes Safety Concerns: Feels Safe At This Time Assistive Devices: Glasses and Walker Review of Systems Review of Systems: All systems reviewed & are unremarkable except as noted in HPI & below Physical Exam Physical Exam: General: no acute distress and stated age Eyes: conjunctiva are pink and non-injected, sclera clear,Left periorbital ecchymosis Neck: normal jugular venous pulse, no hepatojugular reflux Chest: normal shape and normal respiratory effort Lungs:Mildly reduced breath sounds at the bases Cardiac Exam: - regular heart sounds, no murmurs, rubs, or gallops, no jugular venous distention Abdomen: abdomen soft, non-tender, no abnormal masses and no hepatosplenomegaly Musculoskeletal: no gait disturbance, no weakness Extremities: no edema and no cyanosis Neuro:awake, conversant, follows commands, no focal motor deficits Results & Data Vital Signs (Past 12 Hours) Vital Signs Temp Pulse Pulse Resp BP Pulse Ox O2 Del Method 04/02/25 11:19 36.9 C 50 L 16 124/62 94 Room Air 04/02/25 08:19 60 04/02/25 07:31 58 L 04/02/25 07:31 Room Air 04/02/25 07:19 36.4 C L 55 L 18 152/70 H 97 Room Air 04/02/25 02:57 36.4 C L 56 L 18 128/69 96 Room Air Laboratory Results Cardiac Enzymes 04/01/25 04/02/25 Range/Units 18:11 09:51 AST 14 (13-39) U/L B-Natriuretic Peptide 556 H (0-100) pg/ml Coagulation 04/01/25 04/02/25 Range/Units 18:11 09:51 PT 10.6 (9.0-12.0) Seconds APTT 26 (21-31) Seconds B-Natriuretic Peptide 556 H (0-100) pg/ml CBC 04/01/25 04/02/25 Range/Units 18:11 06:40 WBC 6.96 8.51 (4.8-10.8) K/ul RBC 3.61 L 3.60 L (4.20-5.40) M/uL Hgb 11.0 L 10.8 L (12.0-16.0) g/dl Hct 32.9 L 32.5 L (37.0-47.0) % Plt Count 300 281 (130-400) K/uL Neut # (Auto) 4.89 6.04 (1.40-6.50) K/uL Lymph # (Auto) 1.00 L 1.14 L (1.20-3.40) K/uL Blackford # (Auto) 0.89 H 1.05 H (0.11-0.59) K/uL Eos # (Auto) 0.12 0.19 (0.00-0.50) K/uL Baso # (Auto) 0.04 0.05 (0.00-0.20) K/uL Comprehensive Metabolic Panel 04/01/25 04/02/25 Range/Units 18:11 06:40 Sodium 135 L 136 (136-145) mmol/L Potassium 4.0 3.8 (3.5-5.1) mmol/L Chloride 102 101 (98-107) mmol/L Carbon Dioxide 27 27 (21-32) mmol/L BUN 23 24 H (6-23) mg/dl Creatinine 0.94 0.83 (0.6-1.2) mg/dl Glucose 125 H 103 H (70-99(Fasting)) mg/dl Calcium 9.0 9.4 (8.6-10.3) mg/dl AST 14 (13-39) U/L ALT 9 (7-52) U/L Alkaline Phosphatase 62 (34-104) U/L Total Protein 6.0 (6.0-8.3) gm/dl Albumin 3.8 (3.4-5.0) gm/dl Intake and Output 04/01/25 04/02/25 04/02/25 22:59 06:59 14:59 Intake Total 100 / 350 250 / 350 Output Total 1400 / 1400 Balance 100 / -1050 -1150 / -1050 Intake: IV 100 / 100 Acetaminophen 1,000 mg In 100 100 / 100 ml @ 400 mls/hr IV NOW STA Rx#: [id number] Oral 250 / 250 Output: Urine Amount (Catheter) 1399 / 1399 External 1400 / 1399 Other: Weight 73.4 kg 68.9 kg Weight Measurement Method Built in [facility] Built in [facility] proBNP is obtained on 04/02/2025 at 951 556 PG per mL (minimally elevated) TSH as obtained on 04/22 0.619 micro national units per liter (normal). EKG performed 04/02/2025 at 1:42 AM interpreted independently: Sinus bradycardia 56 bpm, first-degree AV block, CO interval 204 ms, normal tracing, relatively unchanged compared to the previous. Summary of transthoracic echocardiogram performed 04/02/2025: No regional wall motion abnormalities noted LVEF normal at 60 to 65% Moderate left atrial enlargement Moderate to severe posterior mitral annular calcification Mild mitral regurgitation Mitral stenosis is absent Mild tricuspid regurgitation is present Moderate pulmonary hypertension is present. The pulmonary systolic pressure is estimated be 56 mmHg Grade II diastolic dysfunction is present
[2025-04-02] MEDS: FUROSEMIDE INJ 20 MG/2 ML VIAL IV ONE (12:13)
--- NOTE | 2025-04-02 13:41 | CT Scan Report ---
LEFT FOOT CT WITHOUT CONTRAST CLINICAL HISTORY: Left foot pain following fall. Evaluate for fracture. COMPARISON STUDY: Left foot radiographs March 23, 2023. CT of the left ankle October 25, 2023. TECHNIQUE: Axial images of the left lower obtained without IV contrast. Sagittal and coronal reformat s were viewed. A dose lowering technique was utilized adhering to the principles of ALARA. FINDINGS: Please note that the left ankle CT will be reported separately. There are no acute fracture s within the left foot. There are postoperative findings consistent with fusion of the left first met atarsophalangeal joint. The hardware is intact. Alignment of the left foot is anatomic. Tarsometatars al joints appear intact. There is dorsal hindfoot and midfoot soft tissue swelling. No fluid collecti ons are identified. There's no soft tissue gas. No osseous lesions are identified. Moderate osteophyt osis within the tibiotalar joint is noted. There is moderate mid foot osteoarthritis. IMPRESSION: 1. No acute fractures within the left foot. 2. Status post left first MTP joint fusion. Hardware intact. 3. 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 4. Dorsal soft tissue swelling. ACT 112: Negative or not required by law. Electronically signed by: Guillaume Borrego M.D. 04/02/2025 1:39 PM
--- NOTE | 2025-04-02 14:11 | CT Scan Report ---
CT ankle LT wo con CLINICAL HISTORY: Fall, r/o fracture COMPARISON STUDY: 10/25/2023 CT and x-ray yesterday. FINDINGS: There are moderate degenerative changes. There is ligamentous calcification. There is an un fused ossicle adjacent to the medial navicular. There are a few stable tiny calcifications adjacent t o the posterior aspect of the tibiotalar joint. No fracture or dislocation seen. No soft tissue hemat ignacio seen. IMPRESSION: No fracture seen at the left ankle. Degenerative changes as described. ACT 112: Negative or not required by law. Electronically signed by: Jake Pink M.D. 04/02/2025 2:10 PM
[2025-04-02] MEDS: oxyCODONE HCL IR 5 MG TAB (IMMEDIATE RELEASE) PO PRN (19:45)
[2025-04-02] MEDS: MONTELUKAST SODIUM 10 MG TABLET PO SCH (20:02)
[2025-04-02] MEDS: BIMATOPROST 0.01% OP SOLN 2.5 ML BTL OP SCH (20:03)
--- NOTE | 2025-04-02 22:45 | Magnetic Resonance Report ---
Exam(s): MRI HEAD Without Contrast EXAM: MR Head Without Intravenous Contrast CLINICAL HISTORY: Reason for exam: Further eval of IIH noted on head CT. TECHNIQUE: Magnetic resonance images of the head/brain without intravenous contrast in multiple planes. COMPARISON: Prior head CT from April 01, 2025. FINDINGS: Brain: Mild to moderate nonspecific white matter changes. No mass. No hemorrhage. No acute infarct. The flow voids at the base the brain are intact. Ventricles: Mild ventriculomegaly. Bones/joints: Unremarkable. No acute fracture. Sinuses: Unremarkable as visualized. No acute sinusitis. Mastoid air cells: Unremarkable as visualized. No mastoid effusion. Orbits: Bilateral lens replacements. IMPRESSION: No evidence of acute intracranial pathology. No evidence of idiopathic intracranial hypertension. Electronically signed by: Shari Bhagat MD 04/02/25 22:44 PM
[2025-04-03 06:30] LABS: Hematocrit (blood only) 31.7 % (37.0-47.0); Hemoglobin 10.8 g/dl (12.0-16.0); Mean Corpuscular Hemoglobin 30.7 pg (25.0-34.0); Mean Corpuscular Hgb Conc 34.1 g/dL (32.0-36.0); Mean Corpuscular Volume 90.1 fL (80.0-100.0); Mean Platelet Volume 11.1 fL (9.4-12.4); Platelet Count 279 K/uL (130-400); RDW Coefficient of Variation 14.5 % (11.5-14.5); RDW Standard Deviation 47.4 fL (36.4-46.3); Red Blood Count 3.52 M/uL (4.20-5.40); White Blood Count 8.78 K/ul (4.8-10.8)
[2025-04-03 06:50] LABS: BUN Creatinine Ratio 34.5 (10-20); Calcium 9.1 mg/dl (8.6-10.3); Creatinine Clr Calc Pharmacy 42.4 ml/min; Magnesium 1.5 mg/dl (1.7-2.4); Potassium 3.5 mmol/L (3.5-5.1)
[2025-04-03] MEDS: MAGNESIUM SULFATE / D5W 1 GM/100 ML BAG IV SCH (07:28)
--- NOTE | 2025-04-03 12:32 | Cardiology Progress Note ---
Date of Service April 03, 2025 Assessment & Plan (1) Acute on chronic heart failure with preserved ejection fraction: Plan: * Transition to furosemide 20 mg by mouth daily which replaces prior to hospital chlorthalidone. * Supplement potassium * Remain off sodium chloride tablets * In the past, patient had difficulty with furosemide due to difficulty making it to the bathroom in time. Left to reassess the practicality of her being on this medication with this trial. Admission and Anticipated Discharge Date Admission Date: April 01, 2025 Subjective Patient without acute cardiac complaint. Telemetry reveals sinus rhythm in the 50s to 60s. Physical Exam Physical Exam: General: no acute distress and stated age Eyes: conjunctiva are pink and non-injected, sclera clear,Left periorbital ecchymosis Neck: normal jugular venous pulse, no hepatojugular reflux Chest: normal shape and normal respiratory effort Lungs:Mildly reduced breath sounds at the bases Cardiac Exam: - regular heart sounds, no murmurs, rubs, or gallops, no jugular venous distention Abdomen: abdomen soft, non-tender, no abnormal masses and no hepatosplenomegaly Musculoskeletal: no gait disturbance, no weakness Extremities: no edema and no cyanosis Neuro:awake, conversant, follows commands, no focal motor deficits Results & Data Vital Signs (Past 12 Hours) Vital Signs Temp Pulse Pulse Resp BP Pulse Ox O2 Del Method 04/03/25 11:22 36.7 C 59 L 16 148/74 H 95 Room Air 04/03/25 08:00 36.6 C 56 L 18 138/79 97 Room Air 04/03/25 07:50 49 L 04/03/25 03:38 36.8 C 53 L 16 128/63 97 Room Air 04/03/25 02:02 57 L
[2025-04-03] MEDS: POTASSIUM CHLORIDE CRTAB 20 MEQ TABCR PO STA (14:03)
[2025-04-03] MEDS: FUROSEMIDE 20 MG TAB PO SCH (14:03)
--- NOTE | 2025-04-03 14:31 | Hospitalist Progress Note ---
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 L facial bruising and L ankle pain s/p mechanical fall. Personally reviewed all trauma imaging completed in the ED. Head and cervical spine CT w/o any evidence of acute fractures. R ankle XR with soft tissue swelling overlying the lateral malleolus but no acute fractures. Bilateral knee and L tib/fib XRs w/o any evidence of acute fractures. L Ankle XR: Osseous body/fragment measuring 1.3 cm seen in the lateral view radiograph projecting over the anterior calcaneus along its plantar surface and just posteriorly to the cuboid. Possible acute traumatic avulsion injury to this area. * L ankle/foot CT ordered which were negative for any acute fractures. Improvement in L ankle pain this morning. Head CT: Prominent optic nerve sheath complexes with kinking and partial empty sella could be seen in the setting of IIH. * Brain MRI therefore ordered for further evaluation. No evidence of IIH on brain MRI or acute intracranial abnormalities. Appreciate PT/OT evaluations. Continue fall precautions. Anticipate return home with services. Referral to [facility] pending. (2) Acute on chronic heart failure with preserved ejection fraction: Plan: Follows with [facility] cardiology as an outpatient. BLE venous Doppler US obtained 2/2 BLE edema. No sonographic evidence of acute DVT. Acute on chronic HFpEF on admission as evidenced by BLE edema, weight gain and congestive findings on CXR imaging. BNP 556. Weight gain of approximately 13kg since her prior admission in December. Weight now down 5.5kg s/p 40mg IV Lasix. Unsure why patient is on salt tablets following chart review. Salt tablets discontinued as these can contribute to fluid retention/volume overload. Prior TTE from January 2024 with LVEF = 65-70%, moderate posterior mitral annular calcification and grade I DD. Reviewed updated TTE from this admission: LVEF = 60-65%, no regional wall motion abnormalities, moderately dilated LA, moderate to severe posterior mitral annular calcification, mild MR, mild TR, moderate pulmonary HTN with pulmonary artery systolic pressure of 56mmHg and grade II DD. Discussed above TTE findings with the patient this morning. Appreciate cardiology consultation. BLE edema significantly improved. Transition to 20mg po Lasix daily starting today as BP tolerates/allows. Prior intolerance to Lasix in the past 2/2 urinary incontinence therefore will assess her response to the above po Lasix trial. Continue strict I&Os, daily standing weights (as able) and CHF education. Discontinue chlorthalidone. Replete K+ PRN (given 20mEq po today). (3) Diabetes mellitus type 2, diet-controlled: Plan: Currently diet-controlled. Used to be on metformin. Hgb A1c 5.8% 2 months ago. SSI regimen as per inpatient protocol. BSG checks ACHS. (4) CAD (coronary artery disease): Plan: Remote PCI with LAD stent placement in 1999. ASA previously held 2/2 facial trauma s/p fall as per above. Possibly restart tomorrow if H/H remains stable. (5) PAF (paroxysmal atrial fibrillation): Plan: No longer on anticoagulation 2/2 history of traumatic subdural hematoma in September 2024 and recurrent falls. Last episode of PAF in 2011 without documented recurrence. Continue telemetry monitoring; No evidence of AFib on telemetry so far this admission. Last saw [facility] cardiology in September 2024. Continue Lopressor with hold parameters. (6) Hypertension: Plan: Home antihypertensives currently on hold including amlodipine, losartan and hydr alazine 2/2 hypotension. (7) DEMARIO (obstructive sleep apnea): Plan: Prior issues with CPAP intolerance 2/2 mask discomfort. Agreeable with CPAP HS while admitted. Education provided on the importance of wearing her CPAP at bedside this morning. Patient mentions that she is going to try and start wearing her CPAP at home again. (8) Hypomagnesemia: Plan: Mag 1.5 this morning; repleted with IV Mag x 3 bags. Continue to monitor and replete PRN. (9) History of CVA (cerebrovascular accident): Plan: History of embolic CVA in November 2023 with residual L-sided weakness and word finding difficulty. Other Chronic Medical Conditions: Asthma - Well-controlled. Continue Singular. Urinary Incontinence - Continue Ditropan XL. Chronic Anemia - Hgb around baseline. Continue daily CBC monitoring. GERD - Continue PPI. HLD - Continue statin. Hypothyroidism - TSH WNL this admission. Continue home levothyroxine dose. DVT Prophylaxis: SCDs/TEDs given recent fall and facial trauma. Code Status: FULL CODE PCP: Lilo Mai MD Disposition: Possible discharge home with services in the next 1-3 days. Continue above plans of care. Spoke with her son, Titus, over the phone this afternoon @ [phone] and updated him on the above plans of care. He expressed understanding and all of his questions were answered to the best of my ability. He plans on coming in to see her later tonight. Patient seen in collaboration with Dr. Nicolas. Please see addendum. I spent a total of 54 minutes coordinating, documenting, and providing care for this patient excluding time spent in the performance of separately billed services or time spent by another provider/QHP. This included personally reviewing all current laboratories and imaging studies, medical reconciliation, outpatient chart review and discussion with specialists. This chart was completed in part utilizing Speech Voice Recognition Software. Grammatical errors, random word insertions, pronoun errors, and incomplete sentences are an occasional consequence of this system due to software limitations, ambient noise, and hardware issues. Any formal questions or concerns about the content, text, or information contained within the body of this dictation should be directly addressed to the provider for clarification. Admission and Anticipated Discharge Date Admission Date: April 01, 2025 Supervising Physician Co-Signing Physician Notes Case reviewed with the advanced practitioner. I have reviewed the advanced practitioner's documentation on the date of service referenced in note, and I agree with, and take responsibility for the plan of care. please refer to her notes for full details patient seen and examined, records reviewed by myself as well diagnoses and plan of care as per advanced practitioner's notes I spent a total of 20 minutes coordinating, documenting, and providing care for this patient, excluding time spent in the performance of separately billed services or time spent by another provider/QHP. Wilton Nicolas MD Subjective Patient seen and examined in room S242-1. NAEO. Feeling good this morning. Denies any chest pain or SOB. Endorses significant improvement in her BLE edema. Discussed negative L ankle/foot CT and brain MRI findings. Review of Systems Review of Systems: At least ten systems reviewed and negative, except as noted in the subjective section. Physical Exam Physical Exam: General: Elderly, F. NAD. Sitting up in bed. Very pleasant. A&Ox4. HEENT: Normocephalic, atraumatic. Conjunctivae normal. External ear and nose normal, oropharynx normal. Respiratory: Normal respiratory effort. Saturating in the mid to upper 90s SpO2 on RA. CTAB. No accessory muscle use. Cardiovascular: Regular rate and rhythm. BLE edema improved. ? systolic murmur. Normal peripheral pulses. Abdomen/GI: Normal bowel sounds, soft, nondistended, nontender to palpation in all quadrants. Extremities/MSK: No cyanosis or clubbing. Chronic LUE and LLE weakness s/p prior CVA. Actively moves all extremities. Neurologic: No overt focal deficits. CN's II-XI not formally tested but appear grossly intact bilaterally. Some word finding difficulties s/p prior CVA. Results & Data Results & Data Vital Signs (Past 12 Hours) Vital Signs Temp Pulse Pulse Resp BP Pulse Ox O2 Del Method 04/03/25 13:17 108/54 L 04/03/25 11:22 36.7 C 59 L 16 148/74 H 95 Room Air 04/03/25 08:00 36.6 C 56 L 18 138/79 97 Room Air 04/03/25 07:50 49 L 04/03/25 03:38 36.8 C 53 L 16 128/63 97 Room Air Laboratory Results Short CBC 04/03/25 Range/Units 05:32 WBC 8.78 (4.8-10.8) K/ul Hgb 10.8 L (12.0-16.0) g/dl Hct 31.7 L (37.0-47.0) % Plt Count 279 (130-400) K/uL BMP 04/03/25 05:32 Sodium 133 L Potassium 3.5 Chloride 97 L Carbon Dioxide 29 BUN 29 H Creatinine 0.84 Glucose 112 H Calcium 9.1 (1) Fall Encounter type: initial encounter Qualified Code(s): W19.XXXA - Unspecified fall, initial encounter (4) CAD (coronary artery disease) Associated angina: without angina Coronary Disease-Associated Artery/Lesion type: [place] artery [place] vs. transplanted heart: [place] heart Qualified Code(s): I25.10 - Atherosclerotic heart disease of [place] coronary artery without angina pectoris (6) Hypertension Hypertension type: unspecified Qualified Code(s): I10 - Essential (primary) hypertension
[2025-04-03] MEDS: ACETAMINOPHEN 325 MG TAB PO PRN (17:26)
[2025-04-04 06:46] LABS: Hematocrit (blood only) 30.7 % (37.0-47.0); Hemoglobin 10.6 g/dl (12.0-16.0); Mean Corpuscular Hgb Conc 34.5 g/dL (32.0-36.0); Mean Corpuscular Volume 89.8 fL (80.0-100.0); Mean Platelet Volume 11.1 fL (9.4-12.4); Platelet Count 280 K/uL (130-400); RDW Coefficient of Variation 14.2 % (11.5-14.5); RDW Standard Deviation 46.3 fL (36.4-46.3); Red Blood Count 3.42 M/uL (4.20-5.40); White Blood Count 7.73 K/ul (4.8-10.8)
--- NOTE | 2025-04-04 07:08 | Hospitalist Progress Note ---
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 L facial bruising and L ankle pain s/p mechanical fall. Personally reviewed all trauma imaging completed in the ED. Head and cervical spine CT w/o any evidence of acute fractures. R ankle XR with soft tissue swelling overlying the lateral malleolus but no acute fractures. Bilateral knee and L tib/fib XRs w/o any evidence of acute fractures. L Ankle XR: Osseous body/fragment measuring 1.3 cm seen in the lateral view radiograph projecting over the anterior calcaneus along its plantar surface and just posteriorly to the cuboid. Possible acute traumatic avulsion injury to this area. * L ankle/foot CT ordered which were negative for any acute fractures. L ankle pain now mostly resolved. Head CT: Prominent optic nerve sheath complexes with kinking and partial empty sella could be seen in the setting of IIH. * Brain MRI therefore ordered for further evaluation. No evidence of IIH on brain MRI or acute intracranial abnormalities. Having some L-sided neck pain s/p fall. Again cervical spine CT unremarkable. Seems to be improving with lidocaine patch and heat/ice application. Appreciate PT/OT evaluations. Continue fall precautions. Anticipate return home with services. Spoke with Wilma from . [facility] approved. (2) Acute on chronic heart failure with preserved ejection fraction: Plan: Follows with [facility] cardiology as an outpatient. BLE venous Doppler US obtained 2/2 BLE edema. No sonographic evidence of acute DVT. Acute on chronic HFpEF on admission as evidenced by BLE edema, weight gain and congestive findings on CXR imaging. BNP 556. Weight gain of approximately 13kg since her prior admission in December. Unsure why patient is on salt tablets following chart review. ? prior hyponatremia. Salt tablets discontinued as these can contribute to fluid retention/volume overload. Prior TTE from January 2024 with LVEF = 65-70%, moderate posterior mitral annular calcification and grade I DD. Reviewed updated TTE from this admission: LVEF = 60-65%, no regional wall motion abnormalities, moderately dilated LA, moderate to severe posterior mitral annular calcification, mild MR, mild TR, moderate pulmonary HTN with pulmonary artery systolic pressure of 56mmHg and grade II DD. Previously discussed above TTE findings with the patient and her son. Appreciate cardiology consultation. BLE edema significantly improved. S/p 40g IV Lasix. Transitioned to po Lasix 20mg on 04/03. Chlorthalidone discontinued. Na+ downtrended to 130 this morning. Hold Lasix dose for tomorrow; already got dose this morning. Follow repeat BMP. Continue strict I&Os, daily standing weights (as able) and CHF education. Replete K+ PRN. (3) Diabetes mellitus type 2, diet-controlled: Plan: Currently diet-controlled. Used to be on metformin. Hgb A1c 5.8% 2 months ago. SSI regimen as per inpatient protocol with BSG checks ACHS. (4) CAD (coronary artery disease): Plan: Remote PCI with LAD stent placement in 1999. ASA previously held 2/2 facial trauma s/p fall as per above. Plan to restart on discharge if H/H remains stable. (5) PAF (paroxysmal atrial fibrillation): Plan: No longer on anticoagulation 2/2 history of traumatic subdural hematoma in September 2024 and recurrent falls. Last episode of PAF in 2011 without documented recurrence. Continue telemetry monitoring; No evidence of AFib on telemetry so far this admission. Last saw [facility] cardiology in September 2024. Continue Lopressor with hold parameters. (6) Hypertension: Plan: Home antihypertensives currently on hold including amlodipine, losartan and hydralazine 2/2 hypotension. (7) DEMARIO (obstructive sleep apnea): Plan: Prior issues with CPAP intolerance 2/2 mask discomfort. Agreeable with CPAP HS while admitted. Education provided on the importance of wearing her CPAP at bedside. Patient mentions that she is going to try and start wearing her CPAP at home again. (8) History of CVA (cerebrovascular accident): Plan: History of embolic CVA in November 2023 with residual L-sided weakness and word finding difficulty. Other Chronic Medical Conditions: Asthma - Well-controlled. Continue Singular. Urinary Incontinence - Continue Ditropan XL. Chronic Anemia - Hgb around baseline. Continue daily CBC monitoring. GERD - Continue PPI. HLD - Continue statin. Hypothyroidism - TSH WNL this admission. Continue home levothyroxine dose. DVT Prophylaxis: SCDs/TEDs given recent fall and facial trauma. Code Status: FULL CODE PCP: Lilo Mai MD Disposition: Spoke with her son, janae Qureshi today @ [phone]. Discussed the above. Would like to her stay another day in order to monitor her Na+ level. Not unreasonable. Patient inquired with CM this morning about home caregiver support in addition to HH services. May benefit from hiring private caregiver support at home if able. Plan for discharge home tomorrow with HH services. Patient seen in collaboration with Dr. Quiroz. Please see addendum. I spent a total of 46 minutes coordinating, documenting, and providing care for this patient excluding time spent in the performance of separately billed services or time spent by another provider/QHP. This included personally reviewing all current laboratories and imaging studies, medical reconciliation, outpatient chart review and discussion with specialists. This chart was completed in part utilizing Speech Voice Recognition Software. Grammatical errors, random word insertions, pronoun errors, and incomplete sentences are an occasional consequence of this system due to software limitations, ambient noise, and hardware issues. Any formal questions or concerns about the content, text, or information contained within the body of this dictation should be directly addressed to the provider for clarification. Admission and Anticipated Discharge Date Admission Date: April 01, 2025 Supervising Physician Co-Signing Physician Notes I have reviewed the advanced practitioner's documentation, and I agree with, and take responsibility for the plan of care I spent a total of 20 minutes coordinating, documenting, and providing care for this patient excluding time spent in the performance of separately billed services. All of the aforementioned completed while collaborating with the assigned advanced practitioner for a full treatment plan Subjective Patient seen and examined in S242-1. NAEO. Endorses feeling well this morning. Denies any chest pain or SOB. Wilma valladares entered the room during our conversation. Patient inquiring about home caregiver support. Was able to get her approved with [facility]. Review of Systems Review of Systems: At least ten systems reviewed and negative, except as noted in the subjective section. Physical Exam Physical Exam: General: Elderly, F. NAD. Sitting up in bed. Very pleasant. A&Ox4. Engaged in conversation. HEENT: Normocephalic, atraumatic. Conjunctivae normal. External ear and nose normal, oropharynx normal. Respiratory: Normal respiratory effort. Saturating in the mid to upper 90s SpO2 on RA. CTAB. No accessory muscle use. Cardiovascular: Regular rate and rhythm. Trace BLE edema. ? systolic murmur. Normal peripheral pulses. Abdomen/GI: Normal bowel sounds, soft, nondistended, nontender to palpation in all quadrants. Extremities/MSK: No cyanosis or clubbing. Chronic LUE and LLE weakness s/p prior CVA. Actively moves all extremities. Neurologic: No overt focal deficits. CN's II-XI not formally tested but appear grossly intact bilaterally. Some word finding difficulties s/p prior CVA. Results & Data Results & Data Vital Signs (Past 12 Hours) Vital Signs Temp Pulse Pulse Resp BP Pulse Ox O2 Del Method 04/04/25 02:17 36.5 C 53 L 18 139/61 96 Room Air 04/03/25 23:00 52 L 04/03/25 22:43 36.6 C 52 L 17 149/68 H 96 Room Air Laboratory Results Short CBC 04/04/25 Range/Units 05:30 WBC 7.73 (4.8-10.8) K/ul Hgb 10.6 L (12.0-16.0) g/dl Hct 30.7 L (37.0-47.0) % Plt Count 280 (130-400) K/uL BMP 04/04/25 05:30 Sodium 130 L Potassium 3.6 Chloride 95 L Carbon Dioxide 27 BUN 25 H Creatinine 0.60 Glucose 110 H Calcium 8.7 (1) Fall Encounter type: initial encounter Qualified Code(s): W19.XXXA - Unspecified fall, initial encounter (4) CAD (coronary artery disease) Associated angina: without angina Coronary Disease-Associated Artery/Lesion type: [place] artery [place] vs. transplanted heart: [place] heart Qualified Code(s): I25.10 - Atherosclerotic heart disease of [place] coronary artery without angina pectoris (6) Hypertension Hypertension type: unspecified Qualified Code(s): I10 - Essential (primary) hypertension
[2025-04-04 07:24] LABS: BUN Creatinine Ratio 41.7 (10-20); Calcium 8.7 mg/dl (8.6-10.3); Creatinine Clr Calc Pharmacy 59.5 ml/min; Magnesium 1.7 mg/dl (1.7-2.4); Potassium 3.6 mmol/L (3.5-5.1)
[2025-04-04] MEDS: POLYETHYLENE (MIRALAX) 17 GM PACK PO PRN (07:27)
[2025-04-04] MEDS: MAGNESIUM OXIDE 400 MG TAB PO SCH (08:26)
--- NOTE | 2025-04-04 12:20 | Cardiology Progress Note ---
Date of Service April 04, 2025 Assessment & Plan (1) Acute on chronic heart failure with preserved ejection fraction: Plan: * Transition to furosemide 20 mg by mouth daily which replaces prior to hospital chlorthalidone. * Supplement potassium * Remain off sodium chloride tablets * Sodium down to 130 mmol/L, 04/04/2025. Hold furosemide. Recheck BMP tomorrow. * Increase activity as tolerated. Admission and Anticipated Discharge Date Admission Date: April 01, 2025 Subjective Patient seen in cardiology follow-up. Denies subjective complaint. Sinus bradycardia in the 50s with first-degree AV block observed. Physical Exam Physical Exam: General: no acute distress and stated age Eyes: conjunctiva are pink and non-injected, sclera clear,Left periorbital ecchymosis Neck: normal jugular venous pulse, no hepatojugular reflux Chest: normal shape and normal respiratory effort Lungs:Mildly reduced breath sounds at the bases Cardiac Exam: - regular heart sounds, no murmurs, rubs, or gallops, no jugular venous distention Abdomen: abdomen soft, non-tender, no abnormal masses and no hepatosplenomegaly Musculoskeletal: no gait disturbance, no weakness Extremities: no edema and no cyanosis Neuro:awake, conversant, follows commands, no focal motor deficits Results & Data Vital Signs (Past 12 Hours) Vital Signs Temp Pulse Pulse Resp BP BP Pulse Ox 04/04/25 11:37 36.5 C 52 L 20 116/53 L 95 04/04/25 08:00 55 L 04/04/25 07:56 36.6 C 56 L 18 146/57 H 97 04/04/25 02:17 36.5 C 53 L 18 139/61 96 O2 Del Method 04/04/25 11:37 Room Air 04/04/25 08:00 04/04/25 07:56 Room Air 04/04/25 02:17 Room Air Laboratory Results CBC 04/04/25 Range/Units 05:30 WBC 7.73 (4.8-10.8) K/ul RBC 3.42 L (4.20-5.40) M/uL Hgb 10.6 L (12.0-16.0) g/dl Hct 30.7 L (37.0-47.0) % Plt Count 280 (130-400) K/uL Comprehensive Metabolic Panel 04/04/25 Range/Units 05:30 Sodium 130 L (136-145) mmol/L Potassium 3.6 (3.5-5.1) mmol/L Chloride 95 L (98-107) mmol/L Carbon Dioxide 27 (21-32) mmol/L BUN 25 H (6-23) mg/dl Creatinine 0.60 (0.6-1.2) mg/dl Glucose 110 H (70-99(Fasting)) mg/dl Calcium 8.7 (8.6-10.3) mg/dl Intake and Output 04/03/25 04/04/25 04/04/25 22:59 06:59 14:59 Intake Total 120 / 1093.333 200 / 1093.333 Output Total 900 / 1700 800 / 1700 Balance -780 / -606.667 -600 / -606.667 Intake: Oral 120 / 800 200 / 800 Output: Urine Amount (Catheter) 900 / 1700 800 / 1700 External 900 / 1700 800 / 1700 Other: # Unmeasured Voids 1 Weight 68.2 kg Weight Measurement Method Standing Scale
[2025-04-04] MEDS: POTASSIUM CHLORIDE CRTAB 20 MEQ TABCR PO SCH (12:27)
[2025-04-05 06:40] LABS: Hematocrit (blood only) 31.1 % (37.0-47.0); Hemoglobin 10.7 g/dl (12.0-16.0); Mean Corpuscular Hemoglobin 30.3 pg (25.0-34.0); Mean Corpuscular Hgb Conc 34.4 g/dL (32.0-36.0); Mean Corpuscular Volume 88.1 fL (80.0-100.0); Mean Platelet Volume 10.9 fL (9.4-12.4); Platelet Count 280 K/uL (130-400); RDW Coefficient of Variation 14.1 % (11.5-14.5); RDW Standard Deviation 45.5 fL (36.4-46.3); Red Blood Count 3.53 M/uL (4.20-5.40); White Blood Count 8.32 K/ul (4.8-10.8)
[2025-04-05 10:44] LABS: BUN Creatinine Ratio 33.3 (10-20); Calcium 8.9 mg/dl (8.6-10.3); Creatinine Clr Calc Pharmacy 56.6 ml/min; Potassium 3.8 mmol/L (3.5-5.1)
--- NOTE | 2025-04-05 11:43 | Cardiology Progress Note ---
Date of Service April 05, 2025 Assessment & Plan (1) Acute on chronic heart failure with preserved ejection fraction: Plan: * Exam is not overtly concerning for volume overload. * Hyponatremia now noted, sodium trending down to 128 mmol/L * Thiazide diuretic discontinued * Hold furosemide * Resume sodium chloride tablet at lower dose , 1 tablet per day. Admission and Anticipated Discharge Date Admission Date: April 01, 2025 Subjective Patient seen in cardiology follow-up. Denies subjective complaint telemetry reveals sinus bradycardia in the 50s with first-degree AV block. Physical Exam Physical Exam: General: no acute distress and stated age Eyes: conjunctiva are pink and non-injected, sclera clear,Left periorbital ecchymosis Neck: normal jugular venous pulse, no hepatojugular reflux Chest: normal shape and normal respiratory effort Lungs:Mildly reduced breath sounds at the bases Cardiac Exam: - regular heart sounds, no murmurs, rubs, or gallops, no jugular venous distention Abdomen: abdomen soft, non-tender, no abnormal masses and no hepatosplenomegaly Musculoskeletal: no gait disturbance, no weakness Extremities: no edema and no cyanosis Neuro:awake, conversant, follows commands, no focal motor deficits Results & Data Vital Signs (Past 12 Hours) Vital Signs Temp Pulse Pulse Resp BP Pulse Ox O2 Del Method 04/05/25 08:00 36.4 C L 56 L 20 149/59 H 98 Room Air 04/05/25 07:35 55 L 04/05/25 03:49 36.8 C 59 L 17 123/52 L 94 Room Air
[2025-04-05] MEDS: SODIUM CHLORIDE 1 GM TABLET PO SCH (12:14)
--- NOTE | 2025-04-05 12:59 | Hospitalist Progress Note ---
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 L facial bruising and L ankle pain s/p mechanical fall. Personally reviewed all trauma imaging completed in the ED. Head and cervical spine CT w/o any evidence of acute fractures. R ankle XR with soft tissue swelling overlying the lateral malleolus but no acute fractures. Bilateral knee and L tib/fib XRs w/o any evidence of acute fractures. L Ankle XR: Osseous body/fragment measuring 1.3 cm seen in the lateral view radiograph projecting over the anterior calcaneus along its plantar surface and just posteriorly to the cuboid. Possible acute traumatic avulsion injury to this area. * L ankle/foot CT ordered which were negative for any acute fractures. L ankle pain now mostly resolved. Head CT: Prominent optic nerve sheath complexes with kinking and partial empty sella could be seen in the setting of IIH. * Brain MRI therefore ordered for further evaluation. No evidence of IIH on brain MRI or acute intracranial abnormalities. Having some L-sided neck pain s/p fall. Again cervical spine CT unremarkable. Seems to be improving with lidocaine patch and heat/ice application. Appreciate PT/OT evaluations. Continue fall precautions. Anticipate return home with services. Spoke with Wilma from . [facility] approved. (2) Acute on chronic heart failure with preserved ejection fraction: Plan: Follows with [facility] cardiology as an outpatient. BLE venous Doppler US obtained 2/2 BLE edema. No sonographic evidence of acute DVT. Acute on chronic HFpEF on admission as evidenced by BLE edema, weight gain and congestive findings on CXR imaging. BNP 556. Weight gain of approximately 13kg since her prior admission in December. Unsure why patient is on salt tablets following chart review. ? prior hyponatremia. Salt tablets discontinued as these can contribute to fluid retention/volume overload. Difficult scenario with patient needing salt tablets for hyponatremia but also having history of CHF/hypertension. Will continue on sodium chloride tablet 1 g and Lasix; follow-up on BMP tomorrow a.m. (3) Diabetes mellitus type 2, diet-controlled: Plan: Currently diet-controlled. Used to be on metformin. Hgb A1c 5.8% 2 months ago. SSI regimen as per inpatient protocol with BSG checks ACHS. (4) CAD (coronary artery disease): Plan: Remote PCI with LAD stent placement in 1999. ASA previously held 2/2 facial trauma s/p fall as per above. Plan to restart on discharge if H/H remains stable. (5) PAF (paroxysmal atrial fibrillation): Plan: No longer on anticoagulation 2/2 history of traumatic subdural hematoma in September 2024 and recurrent falls. Last episode of PAF in 2011 without documented recurrence. Continue telemetry monitoring; No evidence of AFib on telemetry so far this admission. Last saw [facility] cardiology in September 2024. Continue Lopressor with hold parameters. (6) Hypertension: Plan: Home antihypertensives currently on hold including amlodipine, losartan and hydralazine 2/2 hypotension. (7) DEMARIO (obstructive sleep apnea): Plan: Prior issues with CPAP intolerance 2/2 mask discomfort. Agreeable with CPAP HS while admitted. Education provided on the importance of wearing her CPAP at bedside. Patient mentions that she is going to try and start wearing her CPAP at home again. (8) History of CVA (cerebrovascular accident): Plan: History of embolic CVA in November 2023 with residual L-sided weakness and word finding difficulty. Other Chronic Medical Conditions: Asthma - Well-controlled. Continue Singular. Urinary Incontinence - Continue Ditropan XL. Chronic Anemia - Hgb around baseline. Continue daily CBC monitoring. GERD - Continue PPI. HLD - Continue statin. Hypothyroidism - TSH WNL this admission. Continue home levothyroxine dose. DVT Prophylaxis: SCDs/TEDs given recent fall and facial trauma. Code Status: FULL CODE PCP: Lilo Mai MD This chart was completed in part utilizing Speech Voice Recognition Software. Grammatical errors, random word insertions, pronoun errors, and incomplete sentences are an occasional consequence of this system due to software limitations, ambient noise, and hardware issues. Any formal questions or concerns about the content, text, or information contained within the body of this dictation should be directly addressed to the provider for clarification. Admission and Anticipated Discharge Date Admission Date: April 01, 2025 Subjective Patient seen and examined at bedside. She is comfortable lying in the bed; denies any pain or discomfort. Vital signs are stable No significant events overnight Review of Systems Review of Systems: All systems reviewed & are unremarkable except as noted in Subjective Physical Exam Physical Exam: General: Elderly, F. NAD. Sitting up in bed. Very pleasant. A&Ox4. Engaged in conversation. HEENT: Normocephalic, atraumatic. Conjunctivae normal. External ear and nose normal, oropharynx normal. Respiratory: Normal respiratory effort. Saturating in the mid to upper 90s SpO2 on RA. CTAB. No accessory muscle use. Cardiovascular: Regular rate and rhythm. Trace BLE edema. ? systolic murmur. Normal peripheral pulses. Abdomen/GI: Normal bowel sounds, soft, nondistended, nontender to palpation in all quadrants. Extremities/MSK: No cyanosis or clubbing. Chronic LUE and LLE weakness s/p prior CVA. Actively moves all extremities. Neurologic: No overt focal deficits. CN's II-XI not formally tested but appear grossly intact bilaterally. Some word finding difficulties s/p prior CVA. Results & Data Results & Data Vital Signs (Past 12 Hours) Vital Signs Temp Pulse Pulse Resp BP Pulse Ox O2 Del Method 04/05/25 12:05 36.5 C 52 L 18 127/53 L 97 Room Air 04/05/25 08:00 36.4 C L 56 L 20 149/59 H 98 Room Air 04/05/25 07:35 55 L 04/05/25 03:49 36.8 C 59 L 17 123/52 L 94 Room Air (1) Fall Encounter type: initial encounter Qualified Code(s): W19.XXXA - Unspecified fall, initial encounter (4) CAD (coronary artery disease) Coronary Disease-Associated Artery/Lesion type: [place] artery [place] vs. transplanted heart: [place] heart Associated angina: without angina Qualified Code(s): I25.10 - Atherosclerotic heart disease of [place] coronary artery without angina pectoris (6) Hypertension Hypertension type: unspecified Qualified Code(s): I10 - Essential (primary) hypertension
[2025-04-06 06:40] LABS: Basophils # (auto) 0.02 K/uL (0.00-0.20); Basophils % (auto) 0.3 %; Eosinophils # (auto) 0.22 K/uL (0.00-0.50); Hematocrit (blood only) 33.4 % (37.0-47.0); Hemoglobin 11.3 g/dl (12.0-16.0); Immature Granulocytes # (auto) 0.04 K/uL (0.01-0.20); Immature Granulocytes % (auto) 0.5 %; Lymphocytes % (auto) 13.5 %; Mean Corpuscular Hgb Conc 33.8 g/dL (32.0-36.0); Mean Corpuscular Volume 88.6 fL (80.0-100.0); Mean Platelet Volume 10.9 fL (9.4-12.4); Monocytes # (auto) 0.93 K/uL (0.11-0.59); Monocytes % (auto) 12.5 %; Neutrophils # (auto) 5.22 K/uL (1.40-6.50); Neutrophils % (auto) 70.2 %; Platelet Count 300 K/uL (130-400); RDW Coefficient of Variation 13.8 % (11.5-14.5); RDW Standard Deviation 45.2 fL (36.4-46.3); Red Blood Count 3.77 M/uL (4.20-5.40); White Blood Count 7.43 K/ul (4.8-10.8)
[2025-04-06 06:58] LABS: BUN Creatinine Ratio 32.3 (10-20); Calcium 9.1 mg/dl (8.6-10.3); Creatinine Clr Calc Pharmacy 57.8 ml/min; Potassium 3.8 mmol/L (3.5-5.1)
--- NOTE | 2025-04-06 08:47 | Nephrology Consultation ---
Date of Consultation April 06, 2025 Assessment & Plan (1) Hyponatremia: most c/w thiazide diuretic/siadh. family also reports pt lives on coffee and diet pepsi. Stopped Lasix. stopped salt tablets continue to avoid thiazides >started torsemide 20 mg now and potassium 20 mill equivalents twice daily (increased from daily dose) and urea 15 gm bid >needs to aim for 70 gm daily protein intake > suggest barback teaching in this >>>pls c/s nutrition /barback on above for while in house and at home >daily bmp >maintain eukalemia (2) Hypertension: at home takes losartan 100 mg, metoprolol tartrate 50 po daily (sic), hydralazine 50 mg tid and was also on chlorthalidone currently on OP losartan, metoprolol short acting, hydralazine > cont OP losartan, hydralazine > consider metoprolol in lower long acting dose (but defer to cardiology) > ordered torsemide and K as above History of Present Illness Reason for Consultation: persistent hyponatremia Requesting Physician: Dr Quiroz Attending Physician: Osmany Quiroz MD History of Present Illness 85 y/o F whom I'm asked to see for persistent hyponatremia was admitted 04/01 for decompensated heart failure with preserved ejection fraction. Past medical history includes heart failure with preserved ejection fraction (ejection fraction 65 to 70% 2023), CAD status post stent, paroxysmal atrial fibrillation with no anticoagulation due to fall with subdural hematoma, stroke, hypertension, sleep apnea with current non-CPAP compliance, history of pulmonary embolus related to oral contraceptives, diabetes type 2 on p.o. meds, hypothyroid, hyperlipidemia, hiatal hernia, GERD, mood disorder. Also with apparent history of chronic hyponatremia treated with 1 g twice daily salt tablets. Hypertension treated with chlorthalidone among other medications prior to admission. Her sodium was wnl on presentation but has since downtrended slowly to rm value 127 today. She has been on a 1.5 L FR since admission and transitioned to lasix 20mg po daily today Allergies Allergy/AdvReac Type Severity Reaction Status Date / Time paroxetine Allergy Severe ANAPHYLAXIS Verified 02/08/24 13:35 mold Allergy Intermediate asthma Verified 02/08/24 13:35 symptoms pollen extracts Allergy Intermediate asthma Verified 02/08/24 13:35 symptoms Penicillins Allergy Mild Unknown Verified 02/08/24 13:35 green vasquez Allergy Verified 12/29/24 14:08 peas Allergy Verified 12/29/24 14:09 vasquez AdvReac Intermediate gas and Verified 02/08/24 13:35 bloating with consuption of green or kidneys beans broccoli AdvReac Intermediate GAS Verified 02/08/24 13:35 crab AdvReac Intermediate diarrhea Verified 02/08/24 13:35 grapefruit AdvReac Intermediate BRONCHITIS Verified 02/08/24 13:35 orange AdvReac Intermediate BRONCHITIS Verified 02/08/24 13:35 peanut AdvReac Intermediate Difficulty Verified 12/29/24 14:08 Breathing cauliflower AdvReac Verified 12/29/24 14:09 Home Medications Medication Instructions Recorded Confirmed Type atorvastatin 20 mg tablet 20 mg PO HS 08/22/19 04/02/25 History montelukast 10 mg tablet 10 mg PO HS 08/22/19 04/02/25 History bimatoprost 0.01 % eye drops 1 drp OPB HS 05/08/22 04/02/25 History (Sumeet) fluticasone 250 mcg-salmeterol 50 1 inh inhalation BID 10/23/23 04/02/25 History mcg/dose blistr powdr for inhalation (Wixela Inhub) oxybutynin chloride 10 mg 10 mg PO QAM 10/23/23 04/02/25 History tablet,extended release 24 hr levothyroxine 100 mcg tablet 100 mcg PO DAILYBB 12/02/23 04/02/25 History losartan 100 mg tablet 100 mg PO DAILY 02/08/24 04/02/25 History metoprolol tartrate 25 mg tablet 50 mg PO DAILY 02/08/24 04/02/25 History ilvkjihececk-stgdheed-pwuigr tablet 1 tab PO DAILY 02/08/24 04/02/25 [facility] 04/02/25 History Verio test strips) coenzyme Q10 100 mg capsule 100 mg PO DAILY 08/04/24 04/02/25 History (CoQ-10) lancets 30 gauge [facility] 08/04/24 04/02/25 History Plus Lancet) magnesium oxide 400 mg (241.3 mg 400 mg PO DAILY 08/04/24 04/02/25 History magnesium) tablet potassium chloride 20 mEq 20 meq PO DAILY 08/04/24 04/02/25 History tablet,extended release(part/cryst) (Klor-Con M) aspirin 81 mg tablet,delayed 81 mg PO QAM #30 tabs 10/16/24 04/02/25 Rx release polyethylene glycol 3350 17 gram 17 g PO DAILY PRN laxative effect 10/16/24 04/02/25 Rx oral powder packet (Miralax) #30 ea pantoprazole 40 mg tablet,delayed 40 mg PO DAILY 12/28/24 04/02/25 History release sodium chloride 1,000 mg soluble 1,000 mg PO BID 12/28/24 04/02/25 History tablet amlodipine 5 mg tablet (Norvasc) 10 mg (2 x 5 mg) PO QAM #60 tabs 12/30/24 04/02/25 Rx hydralazine 50 mg tablet 50 mg PO TID #90 tabs 12/30/24 04/02/25 Rx albuterol sulfate 90 mcg/actuation 2 puff inhalation QID PRN SOB 04/01/25 04/02/25 History aerosol inhaler azelastine 137 mcg (0.1 %) nasal 2 spray intranasal QPM 04/01/25 04/02/25 History spray calcium 600 mg (as 1 tab PO DAILY 04/01/25 04/02/25 History carbonate)-vitamin D3 5 mcg (200 unit) tablet chlorthalidone 25 mg tablet 25 mg PO QAM 04/01/25 04/02/25 History fluticasone propionate 50 2 spray intranasal QAM 04/01/25 04/02/25 History mcg/actuation nasal spray,suspension guaifenesin 600 mg tablet, 600 mg PO Q12H PRN Congestion 04/01/25 04/02/25 History extended release 12 hr (Mucinex) ketoconazole 2 % topical cream 1 applic topical DAILY PRN Rash 04/01/25 04/02/25 History vitamin B complex 1 tab PO DAILY 04/01/25 04/02/25 History furosemide 20 mg tablet 20 mg PO QAM 30 days #30 tabs 04/05/25 Rx Patient History Family History Father CHF (congestive heart failure) Mother Cancer Social History Smoking Status: Never smoker Second Hand Exposure: Yes; Do You Dip or Chew Tobacco: No; Tobacco Cessation Education Requested by Patient: No Hx Alcohol Use: No Hx Substance Use: No Preferred Language: Jamaican Communication Ability: Effective [employer] Required: No Beliefs That Will Affect Care: None marital status: Life Partner Current Living Situation: Significant Other Current Living Situation Comment: s/o Other Information That Helps Us Care for You: Yes (S.O with dementia) Feels Safe at Home: Yes Safety Concerns: Feels Safe At This Time Assistive Devices: Walker Results & Data Vital Signs (Past 12 Hours) Vital Signs Temp Pulse Pulse Resp BP Pulse Ox O2 Del Method 04/06/25 07:33 53 L 04/06/25 07:26 36.7 C 56 L 18 176/64 H 93 Room Air 04/06/25 03:18 36.7 C 59 L 18 157/53 H 91 Room Air 04/05/25 23:08 36.7 C 63 19 173/56 H 94 Room Air Laboratory Results 04/06/25 05:39 04/06/25 05:39 Jenna 38; uOsm 577, uCl 37 sOSM 270 Diagnostic Findings Chest x-ray April 02 1. Bilateral prominent bronchovascular markings, likely mild pulmonary congestion. Mild improvement compared to CR 04/01/2025. 2. Cardiomegaly. Prominent vascular hilar shadow. Stable. (2) Hypertension Hypertension type: unspecified Qualified Code(s): I10 - Essential (primary) hypertension
--- NOTE | 2025-04-06 10:04 | Cardiology Progress Note ---
Date of Service April 06, 2025 Assessment & Plan (1) Acute on chronic heart failure with preserved ejection fraction: Plan: * Exam is not overtly concerning for volume overload however echocardiogram dose reveal grade II diastolic dysfunction and findings consistent with elevated filling pressures * Has labile HTN * Hyponatremia noted, sodium trending down to 127 mmol/L with thiazide diuretic held and sodium chloride held. * furosemide also held * Nephrology consulted for assistance with management. * increase activity as tolerated * consider SQ lovenox or heparin for DVT prophylaxis. Admission and Anticipated Discharge Date Admission Date: April 01, 2025 Subjective Pt seen in cardiology follow up. Sitting in bedside chair. Denies chest pain or shortness of breath. Physical Exam Physical Exam: General: no acute distress and stated age Eyes: conjunctiva are pink and non-injected, sclera clear,Left periorbital ecchymosis Neck: normal jugular venous pulse, no hepatojugular reflux Chest: normal shape and normal respiratory effort Lungs:Mildly reduced breath sounds at the bases Cardiac Exam: - regular heart sounds, no murmurs, rubs, or gallops, no jugular venous distention Abdomen: abdomen soft, non-tender, no abnormal masses and no hepatosplenomegaly Musculoskeletal: no gait disturbance, no weakness Extremities: no edema and no cyanosis Neuro:awake, conversant, follows commands, no focal motor deficits Results & Data Vital Signs (Past 12 Hours) Vital Signs Temp Pulse Pulse Resp BP Pulse Ox O2 Del Method 04/06/25 07:33 53 L 04/06/25 07:26 36.7 C 56 L 18 176/64 H 93 Room Air 04/06/25 03:18 36.7 C 59 L 18 157/53 H 91 Room Air 04/05/25 23:08 36.7 C 63 19 173/56 H 94 Room Air Laboratory Results CBC 04/06/25 Range/Units 05:39 WBC 7.43 (4.8-10.8) K/ul RBC 3.77 L (4.20-5.40) M/uL Hgb 11.3 L (12.0-16.0) g/dl Hct 33.4 L (37.0-47.0) % Plt Count 300 (130-400) K/uL Neut # (Auto) 5.22 (1.40-6.50) K/uL Lymph # (Auto) 1.00 L (1.20-3.40) K/uL [place] # (Auto) 0.93 H (0.11-0.59) K/uL Eos # (Auto) 0.22 (0.00-0.50) K/uL Baso # (Auto) 0.02 (0.00-0.20) K/uL Comprehensive Metabolic Panel 04/05/25 04/06/25 Range/Units 05:45 05:39 Sodium 128 L 127 L (136-145) mmol/L Potassium 3.8 3.8 (3.5-5.1) mmol/L Chloride 94 L 94 L (98-107) mmol/L Carbon Dioxide 29 27 (21-32) mmol/L BUN 21 20 (6-23) mg/dl Creatinine 0.63 0.62 (0.6-1.2) mg/dl Glucose 107 H 113 H (70-99(Fasting)) mg/dl Calcium 8.9 9.1 (8.6-10.3) mg/dl Intake and Output 04/05/25 04/06/25 04/06/25 22:59 06:59 14:59 Intake Total 480 / 720 Output Total 300 / 950 50 / 950 Balance 180 / -230 -50 / -230 Intake: Oral 480 / 720 Output: Urine Amount (Catheter) 300 / 950 50 / 950 External 300 / 950 50 / 950 Other: # Unmeasured Voids 1 1 Weight 68.9 kg Weight Measurement Method Built in [facility]
[2025-04-06 11:04] LABS: Appearance Urine Clear (Clear); Bacteria Urine Automated 3+ (None Seen); Bilirubin Urine Negative (Negative); Blood Urine 1+ (Negative); Cast Urine Automated 0-2 /lpf (0-2); Color Urine Dark Yellow; Epithelial Cell Urine Auto 0-2 /hpf (0-2); Glucose Urine UA Negative (Negative); Ketones Urine Negative (Negative); Leukocyte Esterase Urine 3+ (Negative); Nitrite Urine Negative (Negative); Protein Urine Negative (Negative); RBC Urine Automated >20 /hpf (0-2); Urobilinogen Urine Negative (Negative); WBC Urine Automated >50 /hpf (0-5); pH Urine 6.5 (4.5-7.5)
--- NOTE | 2025-04-06 11:15 | Hospitalist Progress Note ---
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 L facial bruising and L ankle pain s/p mechanical fall. Personally reviewed all trauma imaging completed in the ED. Head and cervical spine CT w/o any evidence of acute fractures. R ankle XR with soft tissue swelling overlying the lateral malleolus but no acute fractures. Bilateral knee and L tib/fib XRs w/o any evidence of acute fractures. L Ankle XR: Osseous body/fragment measuring 1.3 cm seen in the lateral view radiograph projecting over the anterior calcaneus along its plantar surface and just posteriorly to the cuboid. Possible acute traumatic avulsion injury to this area. * L ankle/foot CT ordered which were negative for any acute fractures. L ankle pain now mostly resolved. Head CT: Prominent optic nerve sheath complexes with kinking and partial empty sella could be seen in the setting of IIH. * Brain MRI therefore ordered for further evaluation. No evidence of IIH on brain MRI or acute intracranial abnormalities. Having some L-sided neck pain s/p fall. Again cervical spine CT unremarkable. Seems to be improving with lidocaine patch and heat/ice application. Appreciate PT/OT evaluations. Continue fall precautions. Anticipate return home with services. Spoke with Wilma from . [facility] approved. (2) Hyponatremia: Plan: Serum sodium of 135 on admission; was on salt tablets and chlorthalidone Salt tablets was stopped as patient has history of CHF, hypertension. Patient was started on Lasix; chlorthalidone was discontinued. Serum sodium down trended to 127. Will continue 1 g of sodium chloride and Lasix, continue fluid restriction. Appreciate nephrology input (3) Acute on chronic heart failure with preserved ejection fraction: Plan: Follows with [facility] cardiology as an outpatient. BLE venous Doppler US obtained 2/2 BLE edema. No sonographic evidence of acute DVT. Acute on chronic HFpEF on admission as evidenced by BLE edema, weight gain and congestive findings on CXR imaging. BNP 556. Weight gain of approximately 13kg since her prior admission in December. Difficult scenario with patient needing salt tablets for hyponatremia but also having history of CHF/hypertension. Will continue on sodium chloride tablet 1 g and Lasix. (4) Diabetes mellitus type 2, diet-controlled: Plan: Currently diet-controlled. Used to be on metformin. Hgb A1c 5.8% 2 months ago. SSI regimen as per inpatient protocol with BSG checks ACHS. (5) CAD (coronary artery disease): Plan: Remote PCI with LAD stent placement in 1999. on aspirin and lipitor, continue (6) PAF (paroxysmal atrial fibrillation): Plan: No longer on anticoagulation 2/2 history of traumatic subdural hematoma in September 2024 and recurrent falls. Last episode of PAF in 2011 without documented recurrence. Continue telemetry monitoring; No evidence of AFib on telemetry so far this admission. Last saw [facility] cardiology in September 2024. Continue Lopressor with hold parameters. (7) Hypertension: Plan: continue losartan, dc amlodipine and hydralazine given orthostatic hypotension (8) DEMARIO (obstructive sleep apnea): Plan: Prior issues with CPAP intolerance 2/2 mask discomfort. Agreeable with CPAP HS while admitted. Education provided on the importance of wearing her CPAP at bedside. Patient mentions that she is going to try and start wearing her CPAP at home again. (9) History of CVA (cerebrovascular accident): Plan: History of embolic CVA in November 2023 with residual L-sided weakness and word finding difficulty. Other Chronic Medical Conditions: Asthma - Well-controlled. Continue Singular. Urinary Incontinence - Continue Ditropan XL. Chronic Anemia - Hgb around baseline. Continue daily CBC monitoring. GERD - Continue PPI. HLD - Continue statin. Hypothyroidism - TSH WNL this admission. Continue home levothyroxine dose. DVT Prophylaxis: heparin Code Status: FULL CODE PCP: Lilo Mai MD Time spent evaluating patient, direct bedside care, chart review, placing orders, interpretation of diagnostic studies, discussion with consultants, patient, and family members, as well as other required patient management activities is 50 minutes This chart was completed in part utilizing Speech Voice Recognition Software. Grammatical errors, random word insertions, pronoun errors, and incomplete sentences are an occasional consequence of this system due to software limitations, ambient noise, and hardware issues. Any formal questions or concerns about the content, text, or information contained within the body of this dictation should be directly addressed to the provider for clarification. Admission and Anticipated Discharge Date Admission Date: April 01, 2025 Subjective Patient seen and examined at bedside. She is sitting up on the chair at the side of the bed; denies any pain or discomfort. No significant events overnight. Review of Systems Review of Systems: All systems reviewed & are unremarkable except as noted in Subjective Physical Exam Physical Exam: General: AO X 3; comfortable HEENT: Normocephalic, atraumatic. Conjunctivae normal. External ear and nose normal, oropharynx normal. Respiratory: Normal respiratory effort. Saturating in the mid to upper 90s SpO2 on RA. CTAB. No accessory muscle use. Cardiovascular: Regular rate and rhythm. Trace BLE edema. ? systolic murmur. Normal peripheral pulses. Abdomen/GI: Normal bowel sounds, soft, nondistended, nontender to palpation in all quadrants. Extremities/MSK: No cyanosis or clubbing. Chronic LUE and LLE weakness s/p prior CVA. Actively moves all extremities. Neurologic: No overt focal deficits. CN's II-XI not formally tested but appear grossly intact bilaterally. Some word finding difficulties s/p prior CVA. Results & Data Results & Data Vital Signs (Past 12 Hours) Vital Signs Temp Pulse Pulse Resp BP Pulse Ox O2 Del Method 04/06/25 10:55 36.5 C 51 L 19 163/63 H 99 Room Air 04/06/25 07:33 53 L 04/06/25 07:26 36.7 C 56 L 18 176/64 H 93 Room Air 04/06/25 03:18 36.7 C 59 L 18 157/53 H 91 Room Air (1) Fall Encounter type: initial encounter Qualified Code(s): W19.XXXA - Unspecified fall, initial encounter (5) CAD (coronary artery disease) Coronary Disease-Associated Artery/Lesion type: [place] artery [place] vs. transplanted heart: [place] heart Associated angina: without angina Qualified Code(s): I25.10 - Atherosclerotic heart disease of [place] coronary artery without angina pectoris (7) Hypertension Hypertension type: unspecified Qualified Code(s): I10 - Essential (primary) hypertension
[2025-04-06 11:16] LABS: Urine Potassium 65.3 mmol/L
[2025-04-06] MEDS: SODIUM CHLORIDE 0.9% 500 ML IV ONE (14:18)
[2025-04-06] MEDS: TORSEMIDE 20 MG TAB PO SCH (20:18)
[2025-04-06] MEDS: UREA (UREA-NA) 15 GM PACK PO SCH (20:19)
[2025-04-06] MEDS: POTASSIUM CHLORIDE CRTAB 20 MEQ TABCR PO SCH (20:24)
[2025-04-07 07:09] LABS: Basophils # (auto) 0.03 K/uL (0.00-0.20); Basophils % (auto) 0.4 %; Eosinophils # (auto) 0.21 K/uL (0.00-0.50); Eosinophils % (auto) 2.5 %; Hemoglobin 11.9 g/dl (12.0-16.0); Immature Granulocytes # (auto) 0.03 K/uL (0.01-0.20); Immature Granulocytes % (auto) 0.4 %; Lymphocytes # (auto) 1.17 K/uL (1.20-3.40); Lymphocytes % (auto) 14.2 %; Mean Corpuscular Hemoglobin 30.2 pg (25.0-34.0); Mean Corpuscular Volume 88.8 fL (80.0-100.0); Mean Platelet Volume 10.9 fL (9.4-12.4); Monocytes # (auto) 1.17 K/uL (0.11-0.59); Monocytes % (auto) 14.2 %; Neutrophils # (auto) 5.64 K/uL (1.40-6.50); Neutrophils % (auto) 68.3 %; Platelet Count 319 K/uL (130-400); RDW Coefficient of Variation 13.9 % (11.5-14.5); RDW Standard Deviation 45.6 fL (36.4-46.3); Red Blood Count 3.94 M/uL (4.20-5.40); White Blood Count 8.25 K/ul (4.8-10.8)
[2025-04-07 07:32] LABS: BUN Creatinine Ratio 48.7 (10-20); Calcium 10.1 mg/dl (8.6-10.3); Creatinine Clr Calc Pharmacy 45.8 ml/min; Potassium 3.8 mmol/L (3.5-5.1)
[2025-04-07] MEDS: ASPIRIN 81 MG ECTAB PO SCH (08:01)
--- NOTE | 2025-04-07 10:41 | Nephrology Progress Note ---
Date of Service April 07, 2025 Assessment & Plan Admission and Anticipated Discharge Date Admission Date: April 01, 2025 Subjective Assessment & Plan (1) Hyponatremia: most c/w thiazide diuretic/siadh. family also reports pt lives on coffee and diet pepsi. Stopped Lasix. stopped salt tablets continue to avoid thiazides yesterday started torsemide 20 mg daily and potassium 20 mill equivalents twice daily (increased from daily dose). na is nicely up to 132 . hard to use urea as outpt--Cost/Available and taste/tolerance. She wont need this terminal operator anyway--will stop as she is complaining a lot about the taste. torsemide 20 daily to continue needs to aim for 70 gm daily protein intake > suggest groutman teaching in this Pls c/s nutrition /groutman on above for while in house and at home daily bmp maintain eukalemia-k normal at 3.8 today--continue kcl 20 bid (2) Hypertension: at home takes losartan 100 mg, metoprolol tartrate 50 po daily (sic), hydrala zine 50 mg tid and was also on chlorthalidone permanently stop Chlorthalidone and HCTZ currently on OP losartan, metoprolol short acting, hydralazine cont OP losartan, hydralazine consider metoprolol in lower long acting dose (but defer to cardiology) ordered torsemide and K as above S--No new issues. feels fine. Making urine and na is better Physical Exam Physical Exam: General: no acute distress Chest: normal shape and normal respiratory effort Lungs:Mildly reduced breath sounds at the bases Cardiac Exam: - regular heart sounds, no murmurs, no jugular venous distention Abdomen: abdomen soft, non-tender Extremities: no edema Results & Data Vital Signs (Past 12 Hours) Vital Signs Temp Pulse Pulse Resp BP Pulse Ox O2 Del Method 04/07/25 08:00 36.8 C 63 18 154/69 H 96 Room Air 04/07/25 07:00 Room Air 04/07/25 03:23 36.9 C 59 L 20 126/54 L 95 Room Air 04/06/25 23:16 36.7 C 59 L 16 143/58 H 95 Room Air 04/06/25 23:10 57 L
[2025-04-07] MEDS: HEPARIN SOD 5,000 UNIT/0.5 ML VIAL SQ SCH (10:52)
--- NOTE | 2025-04-07 12:08 | Cardiology Progress Note ---
Date of Service April 07, 2025 Assessment & Plan (1) Acute on chronic heart failure with preserved ejection fraction: (2) Hyponatremia: (3) History of cardioembolic cerebrovascular accident (CVA): (4) PAF (paroxysmal atrial fibrillation): (5) ASCVD (arteriosclerotic cardiovascular disease): (6) Dyslipidemia, goal LDL below 70: Plan Admission post mechanical fall at home. Hyponatremia. 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 Chlorthalidone, sodium chloride tablets, and furosemide discontinued. Torsemide 20 mg/day along with 40 mEq of potassium chloride prescribed by nephrology. Heart failure with preserved ejection fraction. Loop diuretic therapy managed by nephrology. ? Future reduction in torsemide dosing, use of spironolactone Paroxysmal atrial fibrillation. Observed in December 2011. No documented reoccurrence. [id number] Score 9 points; anticoagulation discontinued in September 2024, at the time of mechanical fall with traumatic subdural hematoma. Chronic coronary heart disease. Status post remote PCI circa 1999 at [place]. Continue medical management. Continue beta-monico, aspirin, statin (atorvastatin 20 mg/day), ARB (losartan 100 mg/day), risk factor, lifestyle modification. Patient prescribed metoprolol tartrate 50 mg once a day this admission. Recommend switching to metoprolol succinate 50 mg once a day. Dyslipidemia. Continue atorvastatin Obstructive sleep apnea. Noncompliant with CPAP therapy. Admission and Anticipated Discharge Date Admission Date: April 01, 2025 Supervising Physician Co-Signing Physician Notes Attending attestation: Case reviewed with the advanced practitioner. I have personally performed a history and physical examination on the patient. I have reviewed the advanced practitioner's documentation on the date of service referenced in note, and I agree with, and take responsibility for the plan of care. Chace Peacock, DO Subjective Patient seen and examined. Chart, medications, telemetry reviewed. Sitting in bed eating blueberries. Feeling relatively well. No chest pain. No shortness of breath. No palpitations. Telemetry: Sinus bradycardia/sinus rhythm with heart rates predominantly in the 50s and 60s. No significant bradycardia. Review of Systems Review of Systems: Complete Review of Systems is as stated above, negative, or noncontributory. Physical Exam Physical Exam: General: A&Ox3. NAD. HENT: Healing ecchymosis around the left eye. Eyes: PER. Sclera clear. Neck: No JVD. Heart: Regular at 66 bpm. Grade I/ systolic murmur. Lungs: Clear to auscultation. Abdomen: +BS. Soft. Nontender. No masses or organomegaly. Extremities: No edema. Limited neurological examination is without focal deficits. Pulses: Posterior tibial=1/4. Results & Data Vital Signs (Past 12 Hours) Vital Signs Temp Pulse Resp BP Pulse Ox O2 Del Method 04/07/25 08:00 36.8 C 63 18 154/69 H 96 Room Air 04/07/25 07:00 Room Air 04/07/25 03:23 36.9 C 59 L 20 126/54 L 95 Room Air Laboratory Results CBC 04/07/25 Range/Units 05:53 WBC 8.25 (4.8-10.8) K/ul RBC 3.94 L (4.20-5.40) M/uL Hgb 11.9 L (12.0-16.0) g/dl Hct 35.0 L (37.0-47.0) % Plt Count 319 (130-400) K/uL Neut # (Auto) 5.64 (1.40-6.50) K/uL Lymph # (Auto) 1.17 L (1.20-3.40) K/uL [place] # (Auto) 1.17 H (0.11-0.59) K/uL Eos # (Auto) 0.21 (0.00-0.50) K/uL Baso # (Auto) 0.03 (0.00-0.20) K/uL Comprehensive Metabolic Panel 04/07/25 Range/Units 05:53 Sodium 132 L (136-145) mmol/L Potassium 3.8 (3.5-5.1) mmol/L Chloride 96 L (98-107) mmol/L Carbon Dioxide 29 (21-32) mmol/L BUN 37 H (6-23) mg/dl Creatinine 0.76 (0.6-1.2) mg/dl Glucose 121 H (70-99(Fasting)) mg/dl Calcium 10.1 (8.6-10.3) mg/dl Intake and Output 04/06/25 04/07/25 04/07/25 22:59 06:59 14:59 Intake Total 240 / 1220 Output Total 900 / 900 Balance 240 / 320 -900 / 320 Intake: Oral 240 / 720 Output: Urine Amount (Catheter) 900 / 900 External 900 / 900 Other: # Unmeasured Voids 1 1 Weight 64.8 kg Weight Measurement Method [facility] Diagnostic Findings April 02, 2025 TTE ([facility]): No regional wall motion abnormalities. Left ventricular systolic function normal. EF 60 to 65%. Moderately dilated left atrium. Moderate to severe posterior mitral annular calcification. Mild mitral regurgitation. No mitral valve stenosis. Mild tricuspid regurgitation. Moderate pulmonary hypertension. PASP estimated to be 56 mmHg. Grade 2 diastolic dysfunction.
--- NOTE | 2025-04-07 12:23 | Hospitalist Progress Note ---
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 L facial bruising and L ankle pain s/p mechanical fall. Personally reviewed all trauma imaging completed in the ED. Head and cervical spine CT w/o any evidence of acute fractures. R ankle XR with soft tissue swelling overlying the lateral malleolus but no acute fractures. Bilateral knee and L tib/fib XRs w/o any evidence of acute fractures. L Ankle XR: Osseous body/fragment measuring 1.3 cm seen in the lateral view radiograph projecting over the anterior calcaneus along its plantar surface and just posteriorly to the cuboid. Possible acute traumatic avulsion injury to this area. * L ankle/foot CT ordered which were negative for any acute fractures. L ankle pain now mostly resolved. Head CT: Prominent optic nerve sheath complexes with kinking and partial empty sella could be seen in the setting of IIH. * Brain MRI therefore ordered for further evaluation. No evidence of IIH on brain MRI or acute intracranial abnormalities. (2) Hyponatremia: Plan: Serum sodium of 135 on admission; was on salt tablets and chlorthalidone Salt tablets was stopped as patient has history of CHF, hypertension. Patient was started on Lasix; chlorthalidone was discontinued. Serum sodium down trended to 127. Nephrology was consulted; recommended to continue torsemide and fluid restriction. (3) Acute on chronic heart failure with preserved ejection fraction: Plan: Follows with [facility] cardiology as an outpatient. BLE venous Doppler US obtained 2/2 BLE edema. No sonographic evidence of acute DVT. Acute on chronic HFpEF on admission as evidenced by BLE edema, weight gain and congestive findings on CXR imaging. BNP 556. Weight gain of approximately 13kg since her prior admission in December. Difficult scenario with patient needing salt tablets for hyponatremia but also having history of CHF/hypertension. on torsemide 20mg once a day. (4) Diabetes mellitus type 2, diet-controlled: Plan: Currently diet-controlled. Used to be on metformin. Hgb A1c 5.8% 2 months ago. SSI regimen as per inpatient protocol with BSG checks ACHS. (5) CAD (coronary artery disease): Plan: Remote PCI with LAD stent placement in 1999. on aspirin and lipitor, continue (6) PAF (paroxysmal atrial fibrillation): Plan: No longer on anticoagulation 2/2 history of traumatic subdural hematoma in September 2024 and recurrent falls. Last episode of PAF in 2011 without documented recurrence. Continue telemetry monitoring; No evidence of AFib on telemetry so far this admission. Last saw [facility] cardiology in September 2024. Continue Lopressor with hold parameters. (7) Hypertension: Plan: dc amlodipine and hydralazine given orthostatic hypotension. losartan also on hold (8) DEMARIO (obstructive sleep apnea): Plan: Prior issues with CPAP intolerance 2/2 mask discomfort. Agreeable with CPAP HS while admitted. Education provided on the importance of wearing her CPAP at bedside. Patient mentions that she is going to try and start wearing her CPAP at home again. (9) History of CVA (cerebrovascular accident): Plan: History of embolic CVA in November 2023 with residual L-sided weakness and word finding difficulty. Other Chronic Medical Conditions: Asthma - Well-controlled. Continue Singular. Urinary Incontinence - Continue Ditropan XL. Chronic Anemia - Hgb around baseline. Continue daily CBC monitoring. GERD - Continue PPI. HLD - Continue statin. Hypothyroidism - TSH WNL this admission. Continue home levothyroxine dose. DVT Prophylaxis: heparin Code Status: FULL CODE PCP: Lilo Mai MD Time spent evaluating patient, direct bedside care, chart review, placing orders, interpretation of diagnostic studies, discussion with consultants, patient, and family members, as well as other required patient management activities is 50 minutes This chart was completed in part utilizing Speech Voice Recognition Software. Grammatical errors, random word insertions, pronoun errors, and incomplete sentences are an occasional consequence of this system due to software limitations, ambient noise, and hardware issues. Any formal questions or concerns about the content, text, or information contained within the body of this dictation should be directly addressed to the provider for clarification. Admission and Anticipated Discharge Date Admission Date: April 01, 2025 Subjective Patient seen and examined at bedside. Comfortable; not in distress. Denies fever, chills, chest pain, shortness of breath, abdominal pain or urinary symptoms. No significant overnight events Review of Systems Review of Systems: All systems reviewed & are unremarkable except as noted in Subjective Physical Exam Physical Exam: General: AO X 3; comfortable HEENT: Normocephalic, atraumatic. Conjunctivae normal. External ear and nose normal, oropharynx normal. Respiratory: Normal respiratory effort. Saturating in the mid to upper 90s SpO2 on RA. CTAB. No accessory muscle use. Cardiovascular: Regular rate and rhythm. Trace BLE edema. ? systolic murmur. Normal peripheral pulses. Abdomen/GI: Normal bowel sounds, soft, nondistended, nontender to palpation in all quadrants. Extremities/MSK: No cyanosis or clubbing. Chronic LUE and LLE weakness s/p prior CVA. Actively moves all extremities. Neurologic: No overt focal deficits. CN's II-XI not formally tested but appear grossly intact bilaterally. Some word finding difficulties s/p prior CVA. Results & Data Results & Data Vital Signs (Past 12 Hours) Vital Signs Temp Pulse Resp BP Pulse Ox O2 Del Method 04/07/25 08:00 36.8 C 63 18 154/69 H 96 Room Air 04/07/25 07:00 Room Air 04/07/25 03:23 36.9 C 59 L 20 126/54 L 95 Room Air (1) Fall Encounter type: initial encounter Qualified Code(s): W19.XXXA - Unspecified fall, initial encounter (5) CAD (coronary artery disease) Coronary Disease-Associated Artery/Lesion type: [place] artery [place] vs. transplanted heart: [place] heart Associated angina: without angina Qualified Code(s): I25.10 - Atherosclerotic heart disease of [place] coronary artery without angina pectoris (7) Hypertension Hypertension type: unspecified Qualified Code(s): I10 - Essential (primary) hypertension
[2025-04-08 08:27] LABS: BUN Creatinine Ratio 65.2 (10-20); Calcium 10.1 mg/dl (8.6-10.3); Creatinine Clr Calc Pharmacy 53.2 ml/min; Potassium 4.3 mmol/L (3.5-5.1)
[2025-04-08] MEDS: METOPROLOL SUCC 50MG EXT REL TAB PO SCH (08:47)
--- NOTE | 2025-04-08 11:43 | Cardiology Progress Note ---
Date of Service April 08, 2025 Assessment & Plan (1) Acute on chronic heart failure with preserved ejection fraction: (2) Hyponatremia: (3) History of cardioembolic cerebrovascular accident (CVA): (4) PAF (paroxysmal atrial fibrillation): (5) ASCVD (arteriosclerotic cardiovascular disease): (6) Dyslipidemia, goal LDL below 70: Plan Admission post mechanical fall at home. Hyponatremia. 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 Chlorthalidone, sodium chloride tablets, and furosemide discontinued. Torsemide 20 mg/day along with 40 mEq of potassium chloride prescribed by Nephrology. Orthostatic precautions discussed. Heart failure with preserved ejection fraction. Appears compensated to mildly hypovolemic. Loop diuretic therapy managed by Nephrology, RE: Hyponatremia, SIADH. ? Future reduction in torsemide dosing + addition of spironolactone, concurrent reduction on supplemental potassium dosing. Paroxysmal atrial fibrillation. Observed in December 2011. No documented reoccurrence. [id number] Score 9 points; anticoagulation discontinued in September 2024, at the time of mechanical fall with traumatic subdural hematoma. Chronic coronary heart disease. Status post remote PCI circa 1999 at [place], [place]. Continue medical management. Continue beta-monico, aspirin, statin (atorvastatin 20 mg/day), ARB (losartan 100 mg/day), risk factor, lifestyle modification. Patient initially prescribed metoprolol tartrate 50 mg once a day this admission, switched to metoprolol succinate 50 mg once a day. Dyslipidemia. Continue atorvastatin Obstructive sleep apnea. Noncompliant with CPAP therapy. Outpatient cardiology follow-up previously scheduled for May 18, 2025 at 3:30 PM with Francheska Ponce PA-C. Please contact with any cardiac questions or concerns Admission and Anticipated Discharge Date Admission Date: April 01, 2025 Supervising Physician Co-Signing Physician Notes Attending Attestation: Case discussed with Andrea Chau PA-C. Patient discharged prior to [place] having the opportunity to examine her in person. Agree with findings and plan as outlined. Patient has upcoming outpatient cardiology follow-up. Chace Peacock, Subjective Patient seen and examined. Chart, medications, telemetry reviewed. Slept in. Not yet out of bed today. No chest pain. No shortness of breath. No palpitations. Telemetry: Sinus in the 60's. Hyponatremia improved over the past 3 days, 127 -> 132 -> 135 mmol/L BUN 20 -> 37 -> 43 mg/dL Creatinine stable 0.62 -> 0.76 -> 0.66 mg/dL Review of Systems Review of Systems: Complete Review of Systems is as stated above, negative, or noncontributory. Physical Exam Physical Exam: General: NAD. HENT: Healing ecchymosis around the left eye. Eyes: PER. Sclera clear. Neck: No JVD. Heart: Regular at 64 bpm. Grade I/ systolic murmur. Lungs: Clear to auscultation. Abdomen: +BS. Soft. Nontender. No masses or organomegaly. Extremities: No edema. Limited neurological examination is without focal deficits. Pulses: Posterior tibial=1/4. Results & Data Vital Signs (Past 12 Hours) Vital Signs Temp Pulse Pulse Resp BP Pulse Ox O2 Del Method 04/08/25 11:18 36.7 C 56 L 63 20 135/63 98 04/08/25 08:00 36.7 C 63 20 135/63 98 Room Air 04/08/25 03:13 36.6 C 61 19 127/59 L 97 Room Air Laboratory Results Comprehensive Metabolic Panel 04/08/25 Range/Units 07:08 Sodium 135 L (136-145) mmol/L Potassium 4.3 (3.5-5.1) mmol/L Chloride 100 (98-107) mmol/L Carbon Dioxide 29 (21-32) mmol/L BUN 43 H (6-23) mg/dl Creatinine 0.66 (0.6-1.2) mg/dl Glucose 114 H (70-99(Fasting)) mg/dl Calcium 10.1 (8.6-10.3) mg/dl Intake and Output 04/07/25 04/08/25 04/08/25 22:59 06:59 14:59 Intake Total 240 / 240 Output Total 150 / 550 400 / 550 Balance 90 / -310 -400 / -310 Intake: Oral 240 / 240 Output: Urine Amount (Catheter) 150 / 550 400 / 550 External 150 / 550 400 / 550 Other: Weight 66.1 kg 66.1 kg Weight Measurement Method Built in [facility] Patient Weight 04/09/25 06:59 Weight 66.1 kg
[2025-04-08 12:41] VITALS: BP 145/60; PULSE 78; RESP 18; TEMP 97.9; O2SAT 97
--- NOTE | 2025-04-08 13:11 | Discharge Summary ---
Date of Service April 08, 2025 Admission HPI Per Admitting Provider History obtained from patient and records. Medical history significant for chronic diastolic heart failure (EF 65 to 70%, TTE 2023), CAD status post stent, PAF off anticoagulation secondary to fall risk/traumatic subdural hematoma, CVA, hypertension, hyperlipidemia, DEMARIO current CPAP noncompliance, history PE related to OCP use, DM2 on oral medications, hypothyroidism, chronic anemia (baseline hemoglobin of 11), GERD, hiatal hernia, mood disorder. Last confinement December 2024 for complicated UTI and hypertensive urgency. Patient had fall at home today while walking from the TV room to kitchen using her walker. Stumbled on something. Left facial trauma with a left ankle pain. Denies chest pain, SOB. Fluid retention, bilateral leg swelling and possible weight gain over the last 2 weeks. Compliant with home medications. Stopped using CPAP few months ago because it was waking her up. Patient also complaining of intermittent right hand sleepiness/numbness over the last few months. Denies unusual neck pain. 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 Admission Exam Per Admitting Provider GENERAL: Slightly uncomfortable, obese, pleasant, no respiratory distress SKIN: Pallor, warm HEENT: Patch with ice pack over left eye, pale palpebral conjunctivae, no ptosis, moist buccal mucosa NECK : Supple, no tenderness CHEST : Decreased breath sounds, no tenderness HEART : RRR, systolic murmur ABDOMEN: Some distention, nontender EXTREMITIES : Bilateral LE swelling, no LE tenderness, no other conspicuous deformities noted NEUROLOGIC : Coherent, no facial asymmetry, no other gross focality Principal Diagnosis Fall Hyponatremia Acute on chronic heart failure with preserved ejection fraction: Discharge Exam General: AO X 3; comfortable HEENT: Normocephalic, atraumatic. Conjunctivae normal. External ear and nose normal, oropharynx normal. Respiratory: Normal respiratory effort. Saturating in the mid to upper 90s SpO2 on RA. CTAB. No accessory muscle use. Cardiovascular: Regular rate and rhythm. Trace BLE edema. Abdomen/GI: Normal bowel sounds, soft, nondistended, nontender to palpation in all quadrants. Extremities/MSK: No cyanosis or clubbing. Chronic LUE and LLE weakness s/p prior CVA. Actively moves all extremities. Neurologic: No overt focal deficits. CN's II-XI not formally tested but appear grossly intact bilaterally. Some word finding difficulties s/p prior CVA. Discharge Data Allergies Allergy/AdvReac Type Severity Reaction Status Date / Time paroxetine Allergy Severe ANAPHYLAXIS Verified 02/08/24 13:35 mold Allergy Intermediate asthma Verified 02/08/24 13:35 symptoms pollen extracts Allergy Intermediate asthma Verified 02/08/24 13:35 symptoms Penicillins Allergy Mild Unknown Verified 02/08/24 13:35 green vasquez Allergy Verified 12/29/24 14:08 peas Allergy Verified 12/29/24 14:09 vasquez AdvReac Intermediate gas and Verified 02/08/24 13:35 bloating with consuption of green or kidneys beans broccoli AdvReac Intermediate GAS Verified 02/08/24 13:35 crab AdvReac Intermediate diarrhea Verified 02/08/24 13:35 grapefruit AdvReac Intermediate BRONCHITIS Verified 02/08/24 13:35 orange AdvReac Intermediate BRONCHITIS Verified 02/08/24 13:35 peanut AdvReac Intermediate Difficulty Verified 12/29/24 14:08 Breathing cauliflower AdvReac Verified 12/29/24 14:09 Consultations 04/01/25 21:08 ED Decision to Admit Stat 04/01/25 23:13 Consult Cardiology Routine 04/06/25 07:35 Consult Nephrology Routine Ordered Studies 04/01/25 18:19 CT cervical spine wo con Stat CT facial bones wo con Stat CT head/brain wo con Stat 04/01/25 23:08 US venous doppler LE BI Urgent 04/02/25 10:54 CT ankle LT wo con Routine CT foot LT wo con Routine 04/02/25 11:00 MR brain wo con Routine Hospital Course (1) Fall: Yudelka Palacios is an 85y/o F with PMHx significant for diet-controlled DMII, acquired hypothyroidism, HLD, HTN, DEMARIO with CPAP intolerance, mild persistent asthma, nonallergic rhinitis, history of PE related to OCP use, PAF not on anticoagulation due to history of traumatic subdural hematoma and recurrent falls, history of cardioembolic CVA in November 2023 with residual L-sided weakness and word-finding difficulty, CAD with remote PCI and LAD stent placement in 1999, HFpEF, CKD stage III, GERD with esophagitis, stress urinary incontinence, cervical DDD, bilateral primary open-angle glaucoma, adjustment disorder with depressed mood and chronic anemia who is admitted under our service after sustaining a mechanical fall at home. L facial bruising and L ankle pain s/p mechanical fall. Personally reviewed all trauma imaging completed in the ED. Head and cervical spine CT w/o any evidence of acute fractures. R ankle XR with soft tissue swelling overlying the lateral malleolus but no acute fractures. Bilateral knee and L tib/fib XRs w/o any evidence of acute fractures. L Ankle XR: Osseous body/fragment measuring 1.3 cm seen in the lateral view radiograph projecting over the anterior calcaneus along its plantar surface and just posteriorly to the cuboid. Possible acute traumatic avulsion injury to this area. * L ankle/foot CT ordered which were negative for any acute fractures. L ankle pain now mostly resolved. Head CT: Prominent optic nerve sheath complexes with kinking and partial empty sella could be seen in the setting of IIH. * Brain MRI therefore ordered for further evaluation. No evidence of IIH on brain MRI or acute intracranial abnormalities. (2) Hyponatremia: Serum sodium of 135 on admission; was on salt tablets and chlorthalidone Salt tablets was stopped as patient has history of CHF, hypertension. Patient was started on Lasix; chlorthalidone was discontinued. Serum sodium down trended to 127. Nephrology was consulted; recommended to continue torsemide and fluid restriction. Serum sodium improved to 135. Patient was instructed fluid restriction at discharge and was prescribed torsemide 20mg once a day Patient's blood pressure normalized after discontinuation of salt tablets. Antihypertensives including amlodipine, losartan, hydralazine were discontinued. Plan for antihypertensives to be gradually resumed if patient's blood pressure at home increases. Plan to avoid thiazide diuretic going forward due to hyponatremia. (3) Acute on chronic heart failure with preserved ejection fraction: Follows with [facility] cardiology as an outpatient. BLE venous Doppler US obtained 2/2 BLE edema. No sonographic evidence of acute DVT. Acute on chronic HFpEF on admission as evidenced by BLE edema, weight gain and congestive findings on CXR imaging. BNP 556. Weight gain of approximately 13kg since her prior admission in December. Difficult scenario with patient needing salt tablets for hyponatremia but also having history of CHF/hypertension. Allergy was consulted during the hospitalization; patient was diuresed with IV Lasix. At discharge she was placed on torsemide 20 mg once a day (4) Diabetes mellitus type 2, diet-controlled: Currently diet-controlled. Used to be on metformin. Hgb A1c 5.8% 2 months ago. SSI regimen as per inpatient protocol with BSG checks ACHS. (5) CAD (coronary artery disease): Remote PCI with LAD stent placement in 1999. on aspirin and lipitor, continue (6) PAF (paroxysmal atrial fibrillation): No longer on anticoagulation 2/2 history of traumatic subdural hematoma in September 2024 and recurrent falls. Last episode of PAF in 2011 without documented recurrence. Continue telemetry monitoring; No evidence of AFib on telemetry so far this admission. Last saw [facility] cardiology in September 2024. Metoprolol tartrate was changed to metoprolol succinate at the time of the discharge. (7) Hypertension: Antihypertensive discontinued at discharge. patient on torsemide and metoprolol. (8) DEMARIO (obstructive sleep apnea): Prior issues with CPAP intolerance 2/2 mask discomfort. Agreeable with CPAP HS while admitted. Education provided on the importance of wearing her CPAP at bedside. Patient mentions that she is going to try and start wearing her CPAP at home again. (9) History of CVA (cerebrovascular accident): History of embolic CVA in November 2023 with residual L-sided weakness and word finding difficulty. This chart was completed in part utilizing Speech Voice Recognition Software. Grammatical errors, random word insertions, pronoun errors, and incomplete sentences are an occasional consequence of this system due to software limitations, ambient noise, and hardware issues. Any formal questions or concerns about the content, text, or information contained within the body of this dictation should be directly addressed to the provider for clarification. Total Time Total Time Spent Total Time Spent (In Minutes): 45 Total Time Includes: Examination of the Patient, Discharge Planning, Medication Reconciliation, Communication With Other Providers and Other Discharge Plan Discharge Items Patient Disposition: Home - Self-Care Reason For Visit: CHF Discharge Diagnosis: Acute on chronic heart failure with preserved ejection fraction: Condition on Discharge: Good Activity: Resume your previous activity Non-emergency contact: Primary Care Provider Call non-emergency contact if: you have any medication questions and your symptoms worsen Follow-up/Referrals: Lilo Mai MD [Primary Care Provider] - 04/10/25 2:00 pm (Date & Time 04/10/2025 2:00 PM Provider: Lilo Ba MD [facility] ) Diet: Regular Fluids: 1800ml (7 cups) Addtl Attending Provider Instructions: You were admitted to the hospital due to a fall. Cardiology was consulted during the hospitalization for adjustment of the medication. The following changes have been made; 1) Your blood pressure pills including amlodipine, hydrochlorothiazide on and hydralazine has been stopped as your blood pressure is found to be within normal range. If your blood pressure starts to rise(> 130/80) on 2 consecutive days; amlodipine 5 mg can be restarted. 2) Stop salt tablets 3) Stop taking metoprolol tartrate. You are prescribed metoprolol succinate once a day. 4) You are prescribed torsemide 20 mg once a day 5) Increase potassium supplement to twice a day. Please maintain fluid restriction of 1800 mL . This includes water, ice, soda, tea and coffee. Protein shakes do not count towards fluid restriction. Please check your blood pressure daily at home and maintain a log. Blood pressu re should be checked in a sitting position after 5 minutes of rest with her arm rested and both feet on on the ground. Follow-up with your primary care doctor as scheduled. Repeat BMP with PCP. Pending Studies at Discharge: No Stand-Alone Forms: My [facility], Smoking Cessation Medications and DC Order Prescriptions: New metoprolol succinate 50 mg Tablet Extended Release 24 Hr 50 mg PO QAM 30 Days Qty: 30 0RF torsemide 20 mg Tablet 20 mg PO QAM 30 Days Qty: 30 0RF Continued atorvastatin 20 mg tablet 20 mg PO HS montelukast 10 mg tablet 10 mg PO HS Lumigan 0.01 % Drops 1 drp OPB HS oxybutynin chloride 10 mg tablet extended release 24hr 10 mg PO QAM fluticasone propion-salmeterol [Wixela Inhub] 250-50 mcg/dose blister with device 1 inh INHALATION BID levothyroxine 100 mcg Tablet 100 mcg PO DAILYBB losartan 100 mg tablet 100 mg PO DAILY [id number] Tablet 1 tab PO DAILY aspirin 81 mg Tablet,Delayed Release (Dr/Ec) 81 mg PO QAM Qty: 30 0RF polyethylene glycol 3350 [Miralax] 17 gram Powder In Packet 17 g PO DAILY PRN (Reason: laxative effect) Qty: 30 0RF pantoprazole 40 mg tablet,delayed release (DR/EC) 40 mg PO DAILY (DME) OneTouch Verio test strips Strip MISCELLANEOUS (DME) lancets [OneTouch Delica Plus Lancet] 30 gauge misc MISCELLANEOUS magnesium oxide 400 mg (241.3 mg magnesium) Tablet 400 mg PO DAILY coenzyme Q10 [CoQ-10] 100 mg Capsule 100 mg PO DAILY calcium carbonate-vitamin D3 600 mg-5 mcg (200 unit) Tablet 1 tab PO DAILY vitamin B complex Tablet 1 tab PO DAILY azelastine 137 mcg (0.1 %) [place],Non-Aerosol 2 spray INTRANASAL QPM Rx Instructions: administer into each nostril albuterol sulfate 90 mcg/actuation Hfa Aerosol Inhaler 2 puff INHALATION QID PRN (Reason: SOB) ketoconazole 2 % Cream 1 applic TOPICAL DAILY PRN (Reason: Rash) fluticasone propionate 50 mcg/actuation [place],Suspension 2 spray INTRANASAL QAM Rx Instructions: administer into each nostril guaifenesin [Mucinex] 600 mg Tablet Extended Release 12hr 600 mg PO Q12H PRN (Reason: Congestion) Changed potassium chloride [Klor-Con M20] 20 mEq Tablet,Er Particles/Crystals 20 meq PO BID Qty: 60 0RF Discontinued metoprolol tartrate 25 mg tablet 50 mg PO DAILY sodium chloride 1,000 mg tablet,soluble 1,000 mg PO BID amlodipine [Norvasc] 5 mg Tablet 10 mg PO QAM Qty: 60 0RF hydralazine 50 mg Tablet 50 mg PO TID Qty: 90 0RF chlorthalidone 25 mg tablet 25 mg PO QAM Discharge Orders: Discharge Order (Routine); Ordered 04/08/25 Ordered By: Osmany Lackey/Other Patient Handouts: Managing Type 2 Diabetes Admission Data Admit Date/Time: 04/01/25 22:01 Attending Provider: Osmany Quiroz Admit Provider: Panda Arreola Primary Care Provider: Lilo Mai Other Providers: Panda Arreola; Carla Cannon; Chace Peacock,Enrico D; Kris Chandler; Ramón Pendleton; Andrea Chau; Jeanette Del Rosario; Francheska Ponce; Emelia Shelton; Rebeca Lr; Carla Spencer; Darnell Cardoso; Lorne Champion; Risa Burk; Jesica Pereira; Gabrielle Bell; Tahmina Pool; Isai Encarnacion; Joan Wilkes; Anisa Hendrix; [facility]; Shari Holguin Other Interventions: Discharge Summary Assessment (RN) Last Done: 04/08/25 11:18
== END 2025-04-08 15:28 | disposition home health service (06) | DRG 291 ==
LOC: ED 17:29 → SUATTDRO 22:01 → 2S 22:01

== ENCOUNTER 2025-08-20 19:22 | Observation (INO) ==
--- NOTE | 2025-08-20 19:44 | Emergency Department Note ---
ED Visit Note I was consulted by the Advanced Practice Provider, CELESTE Oropeza. I performed a substantive portion of the visit. This includes aspects of: History: Patient is an 85-year-old female presenting with right knee pain after fall. Patient reports that she was walking after physical therapy and has a strap on her left ankle when she got the Velcro excellently stuck to the ground and tripped, landing onto her right knee. States that she landed on her right knee and then lowered herself to the ground on her right side. She reports that she was there for about 1.5 hours until her significant other got home because she was having difficulties getting up. Denies striking her head or loss of consciousness. She is not on any anticoagulation or antiplatelet therapies. MDM: X-ray imaging did not show any acute fracture to the knee or ankle. Noted to have some soft tissue swelling to the lateral malleolus. Laboratory workup was obtained to ensure no evidence of rhabdomyolysis. Labs are negative for any acute pathology. Attempted to ambulate the patient for plan for discharge home. However, she was unable to ambulate with a walker and was unable to stand. She was admitted to hospital service for PT/OT assessment. .
[2025-08-20 20:14] LABS: Hematocrit (blood only) 37.8 % (37.0-47.0); Hemoglobin 12.2 g/dl (12.0-16.0); Immature Granulocytes # (auto) 0.02 K/uL (0.01-0.20); Immature Granulocytes % (auto) 0.3 %; Mean Corpuscular Hemoglobin 30.1 pg (25.0-34.0); Mean Corpuscular Volume 93.3 fL (80.0-100.0); Platelet Count 285 K/uL (130-400); RDW Standard Deviation 49.0 fL (36.4-46.3); Red Blood Count 4.05 M/uL (4.20-5.40); White Blood Count 7.23 K/ul (4.8-10.8)
--- NOTE | 2025-08-20 20:17 | Emergency Department Note ---
Impression & Plan Weakness, Fall, Ambulatory dysfunction ED Provider Note CHIEF COMPLAINT: Fall HISTORY OF PRESENTING ILLNESS: Patient is an 85-year-old female who presents to the emergency department today for complaints of a fall onto her right knee. She states that she has a on her left ankle that she wears and after PT left one of the straps was not tightened and the Velcro stuck to the floor and as she went to walk it caused her to trip onto her right knee. She then fell onto her side and laid there for what she reports as an hour to an hour and a half until her significant other got home. She denies hitting her head, loss of consciousness, dizziness, lightheadedness. She denies blood thinner use. She does report some left ankle tenderness as her splint was not tight at the time of the fall. Patient denies chest pain, sob, breathing difficulties, abdominal pain, headache, fevers/chills, blood in stool or urine, any recent illness, or any recent travel. REVIEW OF SYSTEMS: See HPI for pertinent positives and pertinent negatives. ALLERGIES: See below MEDICATIONS: See below PAST MEDICAL HISTORY: See below PHYSICAL EXAM: VITALS: Vitals are noted on the nurse's note and reviewed by myself. GENERAL: Non toxic, in no acute distress, non-diaphoretic. SKIN: Capillary refill <2 sec. EYES: PERRLA. EOMI. Conjunctivae without injection, sclerae without icterus. NOSE: Patent without discharge. MOUTH: Mucous membranes moist. Uvula midline. Airway patent. NECK: Supple without nuchal rigidity. HEART: Regular rate and rhythm without murmurs gallops or rubs. LUNGS: Clear to auscultation bilaterally without wheezes, rales or rhonchi. No retractions or accessory muscle use. ABDOMEN: Positive bowel sounds x 4. Normal tympanic percussion. Soft, nontender to palpation. No masses or hepatosplenomegaly. Gonzalez sign negative. No CVA tenderness. No guarding, rigidity, or rebound tenderness. No focal RLQ or LLQ tenderness. MUSCULOSKELETAL: No swelling or deformity noted to the right knee or left ankle. Range of motion is intact to both joints. No gross musculoskeletal defects. NEURO: Sensation is intact. Patient was alert and oriented. No focal neurological deficits. DIFFERENTIAL DIAGNOSIS: Fracture, ligament injury, tendon injury, sprain, strain, among others. ED COURSE AND MEDICAL DECISION MAKING: HISTORY FROM INDEPENDENT HISTORIAN: History was provided by the patient and her son who is a secondary historian. MONITOR: Continuous monitor worker: Order was placed for continuous monitor worker. Patient was placed on the monitor worker and continuous pulse ox. Patient was noted to be in normal sinus rhythm at an initial rate of 58 bpm per my interpretation. INTERPRETATION OF LABS: I interpreted the labs with full lab results as below in the lab section of this note. Laboratory results pertinent to the emergent complaint are discussed in the MDM section below. The patient was advised to follow up with their PCP and/or specialist(s) for further outpatient monitoring and management of any abnormal results. INTERPRETATION OF IMAGING: Imaging studies were interpreted by myself and read by radiology as per the imaging section of this note. The patient was advised to follow up with their PCP and/or specialist(s) for further outpatient management of any non-emergent abnormal findings. CHRONIC MEDICAL/SOCIAL CONDITIONS AFFECTING CARE: No social concerns were identified as barriers to patients care. ESCALATION OF CARE CONSIDERED: I considered admission on this patient due to ambulatory dysfunction CONSULTATIONS: I had a meaningful discussion about this patient with Dr. Ham who agrees with my assessment and the treatment plan. I also consulted with Dr. Alexander for admission. SUMMARY: I examined the patient for complaints of fall with right knee injury. A physical exam and history were performed. Nursing notes, EMR, and medication list were personally reviewed. Patient was given 1 g of Tylenol IV in the emergency department with improvement in pain and discomfort. CBC showed no leukocytosis, anemia, thrombocytopenia. CMP showed no emergent findings but a BUN of 36, BUN/creatinine ratio 31.3. CK was was 40. x-ray of the left ankle showed soft tissue fullness overlying the lateral malleolus but no definite acute abnormality. X-ray of the right knee showed chronic degenerative changes but no fracture or misalignment. Patient was got up with a walker for a road test to evaluate ambulation. She was unable to ambulate and stand for a period of time. I did consult with hospitalist for admission and the patient was accepted. DIAGNOSIS: Fall, ambulatory dysfunction, right knee pain TREATMENT PLAN/DISCHARGE INSTRUCTIONS: Admit to hospitalist services. The chart was completed utilizing [employer] voice recognition software.Grammatical errors, random word insertions, pronoun errors, and incomplete sentences are an occasional consequence of this system due to software limitations, ambient noise, and hardware issues.Any formal questions or concerns about the content, text, or information contained within the body of this dictation should be directly addressed to the physician for clarification. Past Med/Surg History Problem List Dyslipidemia, goal LDL below 70 ASCVD (arteriosclerotic cardiovascular disease) Hyponatremia History of cardioembolic cerebrovascular accident (CVA) (Acute) CHI (closed head injury) (Acute) Ambulatory dysfunction (Acute) Fall (Acute) History of CVA (cerebrovascular accident) Diabetes mellitus type 2, diet-controlled Acute on chronic heart failure with preserved ejection fraction CHF (congestive heart failure) Confusion (Acute) Weakness (Acute) Hypertension (Acute) Hypertensive urgency Cervical strain, acute (Acute) Fall (Acute) Head injury (Acute) Drug-induced sinus bradycardia Hiatal hernia with GERD Vasovagal syncope Acute hypoxemic respiratory failure Hypomagnesemia (Acute) Vomiting (Acute) Chest pain (Acute) Syncope (Acute) Hypomagnesemia (Acute) Stroke-like symptoms (Acute) Nausea & vomiting (Acute) Arthralgia Embolic stroke Elevated troponin Near syncope Ambulatory dysfunction (Acute) Chronic pain in left foot (Acute) Hypomagnesemia (Acute) Generalized weakness (Acute) Osteoarthritis of ankle, left HTN (hypertension) Left ankle swelling (Acute) Hypomagnesemia (Acute) Syncope and collapse (Acute) Right rotator cuff tear Right knee DJD Hypokalemia CAD (coronary artery disease) (Chronic) stent in 1999 Anemia (Acute) Postoperative bleeding from mouth (Acute) Orthostatic syncope (Acute) Chronic anticoagulation (Acute) Near syncope DVT prophylaxis Postoperative bleeding from mouth History of rotator cuff surgery (Chronic) History of cataract extraction (Chronic) T2DM (type 2 diabetes mellitus) (Chronic) HTN (hypertension) (Chronic) HLD (hyperlipidemia) (Chronic) PAF (paroxysmal atrial fibrillation) (Chronic) DEMARIO (obstructive sleep apnea) (Chronic) Asthma (Chronic) CKD (chronic kidney disease) stage 3, GFR 30-59 ml/min (Chronic) Primary open angle glaucoma (Chronic) History of arthroscopic knee surgery (Chronic) History of tonsillectomy (Chronic) GERD (gastroesophageal reflux disease) (Chronic) History of appendectomy (Chronic) Hypothyroidism (Chronic) History of placement of stent in LAD coronary artery (Chronic) Sleep apnea (Chronic) Stented coronary artery (Chronic) Family History Father CHF (congestive heart failure) Mother Cancer Social History Smoking Status: Never smoker Second Hand Exposure: Yes; Do You Dip or Chew Tobacco: No; Hx Alcohol Use: No Hx Substance Use: No Preferred Language: Romansh Communication Ability: Effective Flume Worker Required: No Beliefs That Will Affect Care: None marital status: Life Partner Current Living Situation: Significant Other Current Living Situation Comment: s/o Feels Safe at Home: Yes Assistive Devices: Walker Allergies Allergies Allergy/AdvReac Type Severity Reaction Status Date / Time paroxetine Allergy Severe ANAPHYLAXIS Verified 08/20/25 21:05 mold Allergy Intermediate asthma Verified 08/20/25 21:05 symptoms pollen extracts Allergy Intermediate asthma Verified 08/20/25 21:05 symptoms Penicillins Allergy Mild BLISTERED Verified 08/20/25 21:05 HANDS grapefruit Allergy Unknown POSITIVE Verified 08/20/25 21:05 ALLERGY TEST/BRONCHITIS vasquez AdvReac Intermediate gas and Verified 08/20/25 21:05 bloating with consuption of green or kidneys beans broccoli AdvReac Intermediate GAS Verified 08/20/25 21:05 cabbage AdvReac Intermediate "Brassica Verified 08/20/25 22:44 oleracea" -- gas/bloating cauliflower AdvReac Intermediate GAS Verified 08/20/25 21:05 crab AdvReac Intermediate diarrhea Verified 08/20/25 21:05 green vasquez AdvReac Intermediate GAS/BLOATIN Verified 08/20/25 21:05 G peanut AdvReac Intermediate GAS/BLOATIN Verified 08/20/25 21:05 G peas AdvReac Intermediate GAS/BLOATIN Verified 08/20/25 21:05 G orange AdvReac Unknown POSITIVE Verified 08/20/25 21:05 ALLERGY TEST/BRONCHITIS Home Meds Home Medications Medication Instructions Recorded Confirmed atorvastatin 20 mg tablet 20 mg PO HS 08/22/19 08/20/25 montelukast 10 mg tablet 10 mg PO HS 08/22/19 08/20/25 bimatoprost 0.01 % eye drops 1 drp OPB HS 05/08/22 08/20/25 (Sumeet) fluticasone 250 mcg-salmeterol 50 1 inh inhalation BID 10/23/23 08/20/25 mcg/dose blistr powdr for inhalation (Wixela Inhub) oxybutynin chloride 10 mg 10 mg PO QAM 10/23/23 08/20/25 tablet,extended release 24 hr blood sugar diagnostic ([facility] 08/04/24 04/02/25 Verio test strips) coenzyme Q10 100 mg capsule 100 mg PO DAILY 08/04/24 08/20/25 (CoQ-10) lancets 30 gauge ([facility] 08/04/24 04/02/25 Plus Lancet) magnesium oxide 400 mg (241.3 mg 400 mg PO DAILY 08/04/24 08/20/25 magnesium) tablet pantoprazole 40 mg tablet,delayed 40 mg PO DAILYBB 12/28/24 08/20/25 release albuterol sulfate 90 mcg/actuation 2 puff inhalation Q4H PRN SOB 04/01/25 08/20/25 aerosol inhaler azelastine 137 mcg (0.1 %) nasal 2 spray intranasal QPM 04/01/25 08/20/25 spray fluticasone propionate 50 2 spray intranasal QAM 04/01/25 08/20/25 mcg/actuation nasal spray,suspension guaifenesin 600 mg tablet, 600 mg PO Q12H PRN Congestion 04/01/25 08/20/25 extended release 12 hr (Mucinex) ketoconazole 2 % topical cream 1 applic topical DAILY PRN Rash 04/01/25 08/20/25 levothyroxine 75 mcg tablet 75 mcg PO DAILYBB 08/20/25 08/20/25 losartan 50 mg tablet 50 mg PO DAILY 08/20/25 08/20/25 metoprolol succinate 50 mg 50 mg PO QAM 08/20/25 08/20/25 tablet,extended release 24 hr lzpihyvbsgaq-yybezotv-ipoaue tablet 1 tab PO DAILY 08/20/25 08/20/25 nystatin 100,000 unit/gram topical 1 applic topical BID PRN NEEDED 08/20/25 08/20/25 cream potassium chloride 10 mEq 20 meq PO BID 08/20/25 08/20/25 capsule,extended release torsemide 20 mg tablet 20 mg PO QAM 08/20/25 08/20/25 vitamin B complex-vitamin C-folic 1 tab PO DAILY 08/20/25 08/20/25 acid 1 mg tablet Previous Rx's Medication Instructions Recorded aspirin 81 mg tablet,delayed 81 mg PO QAM #30 tabs 10/16/24 release polyethylene glycol 3350 17 gram 17 g PO DAILY PRN laxative effect 10/16/24 oral powder packet (Miralax) #30 ea Results & Data (ED) Vital Signs Vital Signs - 24 hr 08/20/25 19:27 08/20/25 20:19 08/20/25 21:00 Temperature 36.7 C Temperature Source Oral Pulse Rate 58 L 60 58 L Respiratory Rate 15 14 Respiratory Effort / Characteristics Non-Labored Spontaneous Respiratory Depth Normal Respiratory Pattern Regular Blood Pressure 180/109 H 163/85 H Blood Pressure Mean 132 144 Pulse Oximetry 99 98 Oxygen Delivery Method Room Air Sepsis Recent Fever Within 48 Hours No Sepsis New/Unexplained Change in Mental Status No Sepsis Action Taken by Nursing No Action Required 08/20/25 22:00 Temperature Temperature Source Pulse Rate 57 L Respiratory Rate 14 Respiratory Effort / Characteristics Respiratory Depth Respiratory Pattern Blood Pressure 171/91 H Blood Pressure Mean 115 Pulse Oximetry 100 Oxygen Delivery Method Sepsis Recent Fever Within 48 Hours Sepsis New/Unexplained Change in Mental Status Sepsis Action Taken by Nursing Laboratory Data 08/20/25 19:45 08/20/25 19:45 Lab Results 08/20/25 Range/Units 19:45 WBC 7.23 (4.8-10.8) K/ul RBC 4.05 L (4.20-5.40) M/uL Hgb 12.2 (12.0-16.0) g/dl Hct 37.8 (37.0-47.0) % MCV 93.3 (80.0-100.0) fL MCH 30.1 (25.0-34.0) pg MCHC 32.3 (32.0-36.0) g/dL RDW Std Deviation 49.0 H (36.4-46.3) fL RDW Coeff of Stoney 14.3 (11.5-14.5) % Plt Count 285 (130-400) K/uL MPV 10.5 (9.4-12.4) fL Immature Gran % (Auto) 0.3 % Neut % (Auto) 62.5 % Lymph % (Auto) 25.6 % Pine % (Auto) 9.1 % Eos % (Auto) 1.9 % Baso % (Auto) 0.6 % Neut # (Auto) 4.52 (1.40-6.50) K/uL Lymph # (Auto) 1.85 (1.20-3.40) K/uL Pine # (Auto) 0.66 H (0.11-0.59) K/uL Eos # (Auto) 0.14 (0.00-0.50) K/uL Baso # (Auto) 0.04 (0.00-0.20) K/uL Immature Gran # (Auto) 0.02 (0.01-0.20) K/uL Sodium 140 (136-145) mmol/L Potassium 3.9 (3.5-5.1) mmol/L Chloride 103 (98-107) mmol/L Carbon Dioxide 28 (21-32) mmol/L Anion Gap 9 (3-11) BUN 36 H (6-23) mg/dl Creatinine 1.15 (0.6-1.2) mg/dl Est Cr Clr Drug Dosing 32.9 ml/min eGFR 46.39 BUN/Creatinine Ratio 31.3 H (10-20) Glucose 99 (70-99(Fasting)) mg/dl Calcium 9.6 (8.6-10.3) mg/dl Total Bilirubin 0.2 (0.2-1.0) mg/dl AST 16 (13-39) U/L ALT 12 (7-52) U/L Alkaline Phosphatase 80 (34-104) U/L Total Creatine Kinase 40 (26-192) U/L Total Protein 7.1 (6.0-8.3) gm/dl Albumin 3.7 (3.4-5.0) gm/dl Globulin 3.4 (2.5-4.0) gm/dl Albumin/Globulin Ratio 1.1 (0.9-2) Administered Medications Discontinued Medications Acetaminophen (Ofirmev) 1,000 mg in 100 mls @ 400 mls/hr IV NOW STA Stop: 08/20/25 20:14 Last Infusion: 08/20/25 20:38 Dose: Infused Documented By: Admin: 08/20/25 20:21 Dose: 400 mls/hr Documented By: HOLLAND Imaging Data Radiologist's Impression: Ankle X-Ray 08/20/25 19:57 Exam(s): XR LEFT ANKLE, 3+ views, XR RIGHT ANKLE, 3+ views EXAM: XR Left Ankle Complete, 3 or More Views CLINICAL HISTORY: fall. TECHNIQUE: Frontal, lateral and oblique views of the left ankle. COMPARISON: CT left ankle 04/02/2025 FINDINGS: Bones/joints: Similar degenerative changes of the ankle. Prominent posterior and plantar calcaneal spurs. Incidental surgical hardware along the 1st metatarsal bone minimally included. No acute fracture. No dislocation. Soft tissues: Prominent soft tissue fullness overlying the lateral malleolus. No radiopaque foreign body. Vasculature: Regional arterial calcification. IMPRESSION: Prominent soft tissue fullness overlying the lateral malleolus. No radiopaque foreign body. No definite acute osseous abnormality. Electronically signed by: Shan Nugent MD 08/20/25 21:58 PM Knee X-Ray 08/20/25 19:57 Exam(s): XR RIGHT KNEE, 3 views EXAM: XR Right Knee, 3 Views CLINICAL HISTORY: fall onto right knee. TECHNIQUE: Three views of the right knee. COMPARISON: Right knee radiographs 04/01/2025 FINDINGS: Bones/joints: Moderately severe degenerative changes involving the patellofemoral compartment and medial compartment, stable. Mild degenerative changes involving the lateral compartment, stable. No acute osseous abnormality. No abnormal alignment. Soft tissues: No appreciable significant acute traumatic soft tissue abnormality. No radiopaque foreign body. No suprapatellar joint effusion. Vasculature: Incidental regional arterial calcification. IMPRESSION: Similar chronic degenerative changes involving the right knee. No radiographic evidence for acute traumatic injury or abnormal traumatic alignment. Electronically signed by: Shan Nugent MD 08/20/25 22:00 PM Discharge Plan Visit Data Chief Complaint: Knee Injury/Pain Stated Complaint: FALL, R KNEE PAIN ED Provider: Genevieve Ham ED Midlevel Provider: Светлана Correa Discharge Problem: Weakness, Fall, Ambulatory dysfunction Patient Disposition: Admitted As Inpatient Condition: Good Prescriptions Prescriptions: No Action atorvastatin 20 mg tablet 20 mg PO HS montelukast 10 mg tablet 10 mg PO HS Lumigan 0.01 % Drops 1 drp OPB HS oxybutynin chloride 10 mg tablet extended release 24hr 10 mg PO QAM fluticasone propion-salmeterol [Wixela Inhub] 250-50 mcg/dose blister with device 1 inh INHALATION BID aspirin 81 mg Tablet,Delayed Release (Dr/Ec) 81 mg PO QAM Qty: 30 0RF polyethylene glycol 3350 [Miralax] 17 gram Powder In Packet 17 g PO DAILY PRN (Reason: laxative effect) Qty: 30 0RF pantoprazole 40 mg tablet,delayed release (DR/EC) 40 mg PO DAILYBB potassium chloride 10 mEq capsule, extended release 20 meq PO BID metoprolol succinate 50 mg tablet extended release 24 hr 50 mg PO QAM nystatin 100,000 unit/gram cream 1 applic TOPICAL BID PRN (Reason: NEEDED) B complex-vitamin C-folic acid 1 mg Tablet 1 tab PO DAILY losartan 50 mg Tablet 50 mg PO DAILY torsemide 20 mg tablet 20 mg PO QAM levothyroxine 75 mcg tablet 75 mcg PO DAILYBB Centrum Silver Tablet 1 tab PO DAILY (DME) OneTouch Verio test strips Strip MISCELLANEOUS (DME) lancets [OneTouch Delica Plus Lancet] 30 gauge misc MISCELLANEOUS magnesium oxide 400 mg (241.3 mg magnesium) Tablet 400 mg PO DAILY coenzyme Q10 [CoQ-10] 100 mg Capsule 100 mg PO DAILY azelastine 137 mcg (0.1 %) [place],Non-Aerosol 2 spray INTRANASAL QPM Rx Instructions: administer into each nostril albuterol sulfate 90 mcg/actuation Hfa Aerosol Inhaler 2 puff INHALATION Q4H PRN (Reason: SOB) ketoconazole 2 % Cream 1 applic TOPICAL DAILY PRN (Reason: Rash) fluticasone propionate 50 mcg/actuation [place],Suspension 2 spray INTRANASAL QAM Rx Instructions: administer into each nostril guaifenesin [Mucinex] 600 mg Tablet Extended Release 12hr 600 mg PO Q12H PRN (Reason: Congestion) Referrals Referrals: Lilo Mai MD [Primary Care Provider] -
[2025-08-20] MEDS: ACETAMINOPHEN 1,000 MG/100 ML VIAL IV STA (20:21)
[2025-08-20 20:31] LABS: Alanine Aminotransferase 12.0 U/L (7-52); Albumin Globulin Ratio 1.1 (0.9-2); Albumin Level 3.7 gm/dl (3.4-5.0); Alkaline Phosphatase 80.0 U/L (34-104); Anion Gap 9.0 (3-11); Bilirubin,Total 0.2 mg/dl (0.2-1.0); Blood Urea Nitrogen 36.0 mg/dl (6-23); Calcium 9.6 mg/dl (8.6-10.3); Carbon Dioxide 28.0 mmol/L (21-32); Chloride 103.0 mmol/L (98-107); Creatine Kinase 40.0 U/L (26-192); Creatinine Clr Calc Pharmacy 32.9 ml/min; Globulin 3.4 gm/dl (2.5-4.0); Glucose 99.0 mg/dl (70-99(Fasting)); Potassium 3.9 mmol/L (3.5-5.1); Sodium 140.0 mmol/L (136-145); Total Protein 7.1 gm/dl (6.0-8.3)
--- NOTE | 2025-08-20 21:59 | XRay Report ---
Exam(s): XR LEFT ANKLE, 3+ views, XR RIGHT ANKLE, 3+ views EXAM: XR Left Ankle Complete, 3 or More Views CLINICAL HISTORY: fall. TECHNIQUE: Frontal, lateral and oblique views of the left ankle. COMPARISON: CT left ankle 04/02/2025 FINDINGS: Bones/joints: Similar degenerative changes of the ankle. Prominent posterior and plantar calcaneal spurs. Incidental surgical hardware along the 1st metatarsal bone minimally included. No acute fracture. No dislocation. Soft tissues: Prominent soft tissue fullness overlying the lateral malleolus. No radiopaque foreign body. Vasculature: Regional arterial calcification. IMPRESSION: Prominent soft tissue fullness overlying the lateral malleolus. No radiopaque foreign body. No definite acute osseous abnormality. Electronically signed by: Shan Nugent MD 08/20/25 21:58 PM
--- NOTE | 2025-08-20 22:01 | XRay Report ---
Exam(s): XR RIGHT KNEE, 3 views EXAM: XR Right Knee, 3 Views CLINICAL HISTORY: fall onto right knee. TECHNIQUE: Three views of the right knee. COMPARISON: Right knee radiographs 04/01/2025 FINDINGS: Bones/joints: Moderately severe degenerative changes involving the patellofemoral compartment and medial compartment, stable. Mild degenerative changes involving the lateral compartment, stable. No acute osseous abnormality. No abnormal alignment. Soft tissues: No appreciable significant acute traumatic soft tissue abnormality. No radiopaque foreign body. No suprapatellar joint effusion. Vasculature: Incidental regional arterial calcification. IMPRESSION: Similar chronic degenerative changes involving the right knee. No radiographic evidence for acute traumatic injury or abnormal traumatic alignment. Electronically signed by: Shan Nugent MD 08/20/25 22:00 PM
--- NOTE | 2025-08-20 22:26 | History & Physical Report ---
Date of Service August 20, 2025 Assessment & Plan (1) Fall: (2) Ambulatory dysfunction: (3) History of cardioembolic cerebrovascular accident (CVA): Plan Ms. Palacios is an 85-year-old female with past medical history of type 2 diabetes mellitus, hypothyroidism, hyperlipidemia, DEMARIO, mild persistent asthma, paroxysmal A-fib, CAD, hypertension, GERD, stage III CKD, degenerative disks disease, prior subdural hematoma, SIADH/chronic hyponatremia, mood disorder admitted for pain control after mechanical fall. #Mechanical fall #Ambulatory dysfunction #Acute right knee pain #Chronic left ankle pain 2/2 fall 03/2025 #Prior Fall c/b subdural hematoma on CT scan (09/2024) #prior CVA multiple falls in last year resulting in admission, no longer on AC imaging without fracture schedule Tylenol and topical Voltaren tramadol 25mg prn severe pain PT/OT Dispo contingent on pain control and PT/OT orthostatics ordered -history of positional lightheadedness per cardiology review, losartan recently decreased 2/2 to these concerns -tera stockings ordered fall precautions # Paroxysmal atrial fibrillation NSR on monitor in ED Continue metoprolol succinate ER 50 mg daily no longer on AC 2/2 frequent falls #Chronic HFpEF ECHO (02/19) LVEF 65-70%, mild aortic valve sclerosis without stenosis, moderate posterior mitral annular calcification, and grade I diastolic dysfunction euvolemic upon Continue torsemide 20 mg daily Continue potassium bid #HTN continue losartan #Coronary artery disease s/p stent 1999 no chest pain Continue asa and statin #hypothyroidism continue levothyroxine #type 2 diabetes mellitus well-controlled; sliding scale insulin #COPD Continue home inhaler/montelukast DVT SCDs/Tera stockings; hx of subdural Full code admit med surg Admission and Anticipated Discharge Date Admission Date: Time spent evaluating patient, direct bedside care, chart review, placing orders, interpretation of diagnostic studies, discussion with consultants, patient, and family members, as well as other required patient management activities is 75 minutes. History of Present Illness Primary Care Provider: Lilo Mai MD Ms. Palacios is an 85-year-old female with past medical history of type 2 diabetes mellitus, prior CVA with left sided weakness,hypothyroidism, hyperlipidemia, DEMARIO, mild persistent asthma, paroxysmal A-fib, CAD, hypertension, GERD, stage III CKD, degenerative disks disease, prior subdural hematoma, SIADH/chronic hyponatremia, mood disorder presented to [facility] ED due to right knee pain after mechanical fall. Patient reports she was at baseline. She wears a brace on her left ankle due to a fall she sustained earlier in the year. The velcro on the brace was caught on the carpet ultimately resulting in the patient losing balance and subsequently falling onto her right knee. She reports the pain was so notable she was unable to help herself up until her significant other came home to assist her. She lives with her SO, and her daughter in law manages her medications. She denies any urine issues, bowel changes, chest pain, dizziness/syncope, or other acute changes. She walks with a walker at baseline. She has been much slower in her ambulation since her fall in march resulting in possible avulsion injury. She also has residual left sided weakness due to stroke in 2023, but this is stable per patient reports. In the ED, vitals were notable for BP of 16--170s. HR of mid 50s-60s and O2 sat of 100 on room air Imaging revealed left ankle soft tissue swelling, right knee chronic degenerative changes Labs noncontributory ED interventions: IV Tylenol Patient to be admitted to med/surg for further evaluation and management of right knee pain 2/2 mechanical fall with PT/OT evaluation planned Allergies Allergy/AdvReac Type Severity Reaction Status Date / Time paroxetine Allergy Severe ANAPHYLAXIS Verified 08/20/25 21:05 mold Allergy Intermediate asthma Verified 08/20/25 21:05 symptoms pollen extracts Allergy Intermediate asthma Verified 08/20/25 21:05 symptoms Penicillins Allergy Mild BLISTERED Verified 08/20/25 21:05 HANDS grapefruit Allergy Unknown POSITIVE Verified 08/20/25 21:05 ALLERGY TEST/BRONCHITIS vasquez AdvReac Intermediate gas and Verified 08/20/25 21:05 bloating with consuption of green or kidneys beans broccoli AdvReac Intermediate GAS Verified 08/20/25 21:05 cabbage AdvReac Intermediate "Brassica Verified 08/20/25 22:44 oleracea" -- gas/bloating cauliflower AdvReac Intermediate GAS Verified 08/20/25 21:05 crab AdvReac Intermediate diarrhea Verified 08/20/25 21:05 green vasquez AdvReac Intermediate GAS/BLOATIN Verified 08/20/25 21:05 G peanut AdvReac Intermediate GAS/BLOATIN Verified 08/20/25 21:05 G peas AdvReac Intermediate GAS/BLOATIN Verified 08/20/25 21:05 G orange AdvReac Unknown POSITIVE Verified 08/20/25 21:05 ALLERGY TEST/BRONCHITIS Home Medications Medication Instructions Recorded Confirmed Type atorvastatin 20 mg tablet 20 mg PO HS 08/22/19 08/20/25 History montelukast 10 mg tablet 10 mg PO HS 08/22/19 08/20/25 History bimatoprost 0.01 % eye drops 1 drp OPB HS 05/08/22 08/20/25 History (Sahraigan) fluticasone 250 mcg-salmeterol 50 1 inh inhalation BID 10/23/23 08/20/25 History mcg/dose blistr powdr for inhalation (Wixela Inhub) oxybutynin chloride 10 mg 10 mg PO QAM 10/23/23 08/20/25 History tablet,extended release 24 hr blood sugar diagnostic ([facility] 08/04/24 04/02/25 History Verio test strips) coenzyme Q10 100 mg capsule 100 mg PO DAILY 08/04/24 08/20/25 History (CoQ-10) lancets 30 gauge ([facility] Delica 08/04/24 04/02/25 History Plus Lancet) magnesium oxide 400 mg (241.3 mg 400 mg PO DAILY 08/04/24 08/20/25 History magnesium) tablet aspirin 81 mg tablet,delayed 81 mg PO QAM #30 tabs 10/16/24 08/20/25 Rx release polyethylene glycol 3350 17 gram 17 g PO DAILY PRN laxative effect 10/16/24 08/20/25 Rx oral powder packet (Miralax) #30 ea pantoprazole 40 mg tablet,delayed 40 mg PO DAILYBB 12/28/24 08/20/25 History release albuterol sulfate 90 mcg/actuation 2 puff inhalation Q4H PRN SOB 04/01/25 08/20/25 History aerosol inhaler azelastine 137 mcg (0.1 %) nasal 2 spray intranasal QPM 04/01/25 08/20/25 History spray fluticasone propionate 50 2 spray intranasal QAM 04/01/25 08/20/25 History mcg/actuation nasal spray,suspension guaifenesin 600 mg tablet, 600 mg PO Q12H PRN Congestion 04/01/25 08/20/25 History extended release 12 hr (Mucinex) ketoconazole 2 % topical cream 1 applic topical DAILY PRN Rash 04/01/25 08/20/25 History levothyroxine 75 mcg tablet 75 mcg PO DAILYBB 08/20/25 08/20/25 History losartan 50 mg tablet 50 mg PO DAILY 08/20/25 08/20/25 History metoprolol succinate 50 mg 50 mg PO QAM 08/20/25 08/20/25 History tablet,extended release 24 hr eoihwmxvlkcj-acdmudqh-vugado tablet 1 tab PO DAILY 08/20/25 08/20/25 History nystatin 100,000 unit/gram topical 1 applic topical BID PRN NEEDED 08/20/25 08/20/25 History cream potassium chloride 10 mEq 20 meq PO BID 08/20/25 08/20/25 History capsule,extended release torsemide 20 mg tablet 20 mg PO QAM 08/20/25 08/20/25 History vitamin B complex-vitamin C-folic 1 tab PO DAILY 08/20/25 08/20/25 History acid 1 mg tablet Past Med/Surg History Problem List Dyslipidemia, goal LDL below 70 ASCVD (arteriosclerotic cardiovascular disease) Hyponatremia History of cardioembolic cerebrovascular accident (CVA) (Acute) CHI (closed head injury) (Acute) Ambulatory dysfunction (Acute) Fall (Acute) History of CVA (cerebrovascular accident) Diabetes mellitus type 2, diet-controlled Acute on chronic heart failure with preserved ejection fraction CHF (congestive heart failure) Confusion (Acute) Weakness (Acute) Hypertension (Acute) Hypertensive urgency Cervical strain, acute (Acute) Fall (Acute) Head injury (Acute) Drug-induced sinus bradycardia Hiatal hernia with GERD Vasovagal syncope Acute hypoxemic respiratory failure Hypomagnesemia (Acute) Vomiting (Acute) Chest pain (Acute) Syncope (Acute) Hypomagnesemia (Acute) Stroke-like symptoms (Acute) Nausea & vomiting (Acute) Arthralgia Embolic stroke Elevated troponin Near syncope Ambulatory dysfunction (Acute) Chronic pain in left foot (Acute) Hypomagnesemia (Acute) Generalized weakness (Acute) Osteoarthritis of ankle, left HTN (hypertension) Left ankle swelling (Acute) Hypomagnesemia (Acute) Syncope and collapse (Acute) Right rotator cuff tear Right knee DJD Hypokalemia CAD (coronary artery disease) (Chronic) stent in 1999 Anemia (Acute) Postoperative bleeding from mouth (Acute) Orthostatic syncope (Acute) Chronic anticoagulation (Acute) Near syncope DVT prophylaxis Postoperative bleeding from mouth History of rotator cuff surgery (Chronic) History of cataract extraction (Chronic) T2DM (type 2 diabetes mellitus) (Chronic) HTN (hypertension) (Chronic) HLD (hyperlipidemia) (Chronic) PAF (paroxysmal atrial fibrillation) (Chronic) DEMARIO (obstructive sleep apnea) (Chronic) Asthma (Chronic) CKD (chronic kidney disease) stage 3, GFR 30-59 ml/min (Chronic) Primary open angle glaucoma (Chronic) History of arthroscopic knee surgery (Chronic) History of tonsillectomy (Chronic) GERD (gastroesophageal reflux disease) (Chronic) History of appendectomy (Chronic) Hypothyroidism (Chronic) History of placement of stent in LAD coronary artery (Chronic) Sleep apnea (Chronic) Stented coronary artery (Chronic) Family History Father CHF (congestive heart failure) Mother Cancer Social History Smoking Status: Never smoker Second Hand Exposure: Yes; Do You Dip or Chew Tobacco: No; Hx Alcohol Use: No Hx Substance Use: No Preferred Language: Kazakh Communication Ability: Effective Template Worker Required: No Beliefs That Will Affect Care: None marital status: Life Partner Current Living Situation: Significant Other Current Living Situation Comment: s/o Feels Safe at Home: Yes Assistive Devices: Walker Review of Systems Review of Systems: Constitutional: (-) fever/chills, (-) recent loss of weight, (-) appetite changes, (-) night sweats. Head: (-) headache, (-) dizziness. Eye: (-) blurring of vision, (-) double vision, (-) redness. Ear: (-) hearing loss, (-) discharge, (-) vertigo Nose: (-) discharge, (-) bleeding, (-) congestion, (-) post nasal drip. Throat: (-) sore throat, (-) hoarseness of voice, (-) odynophagia. Cardiovascular: (-) chest pain, (-) palpitations, (-) syncope, (-) orthopnea, (- ) PND, (-) leg swelling. Respiratory: (-) shortness of breath, (-) cough, (-) wheezing, (-) hemoptysis. Neuro: (-) weakness in extremities, (-) numbness, (-) tingling, (-) tremor. Gastrointestinal: (-) belly pain, (-) belly distension, (-) nausea, (-) vomiting, (-) diarrhea, (-) constipation Genitourinary: (-) hematuria, (-) dysuria, (-) polyuria, (-) hesitancy, (-) frequency, (-) urinary incontinence. Musculoskeletal: (-) myalgia, (-) arthralgia. Skin: (-) rashes. Endocrine: (-) heat/cold intolerance. Psychiatry: (-) depression, (-) hallucination. Physical Exam Physical Exam: GENERAL APPEARANCE: AxOx4, generally well-appearing elderly female, no acute distress. HEENT: NC, AT. MMM. EOMI, clear conjunctiva, oropharynx clear. poor dentition NECK: Supple without lymphadenopathy. No stiffness or restricted ROM. HEART: Normal rate and regular rhythm, normal S1/S1, no m/r/g LUNGS: CTAB, moving air well. No crackles or wheezes are heard. ABDOMEN: Soft, nontender, nondistended with good bowel sounds heard. BACK: No CVAT, no obvious deformity. EXTREMITIES: Without cyanosis, clubbing. nontender swelling behing left lateral mallelous, discomfort noted with left foot dorsiflexion/plantarflexion; right knee with mild erythema on anteriormedial surface and associated tenderness to palpation, mild swelling appreciated. no tenderness in posterior fossa NEUROLOGICAL: Grossly nonfocal. Alert and oriented, moving all 4 extremities. CN not formally tested but appear grossly intact. Skin: Warm and dry without any rash. Results & Data Results & Data Vital Signs (Past 12 Hours) Vital Signs Temp Pulse Resp BP Pulse Ox O2 Del Method 08/20/25 22:00 57 L 14 171/91 H 100 08/20/25 21:00 58 L 14 163/85 H 98 08/20/25 20:19 60 08/20/25 19:27 36.7 C 58 L 15 180/109 H 99 Room Air Laboratory Results Short CBC 08/20/25 Range/Units 19:45 WBC 7.23 (4.8-10.8) K/ul Hgb 12.2 (12.0-16.0) g/dl Hct 37.8 (37.0-47.0) % Plt Count 285 (130-400) K/uL BMP 08/20/25 19:45 Sodium 140 Potassium 3.9 Chloride 103 Carbon Dioxide 28 BUN 36 H Creatinine 1.15 Glucose 99 Calcium 9.6 Cardiac Enzymes 08/20/25 Range/Units 19:45 Total Creatine Kinase 40 (26-192) U/L Liver Function 08/20/25 Range/Units 19:45 Total Bilirubin 0.2 (0.2-1.0) mg/dl AST 16 (13-39) U/L ALT 12 (7-52) U/L Alkaline Phosphatase 80 (34-104) U/L Albumin 3.7 (3.4-5.0) gm/dl Medications Administered Home Medications Medication Instructions Recorded Confirmed Last Taken atorvastatin 20 mg tablet 20 mg PO HS 08/22/19 08/20/25 08/19/25 montelukast 10 mg tablet 10 mg PO HS 08/22/19 08/20/25 08/19/25 bimatoprost 0.01 % eye drops 1 drp OPB HS 05/08/22 08/20/25 08/19/25 (Sahraigan) fluticasone 250 mcg-salmeterol 50 1 inh inhalation BID 10/23/23 08/20/25 08/20/25 08:00 mcg/dose blistr powdr for inhalation (Wixela Inhub) oxybutynin chloride 10 mg 10 mg PO QAM 10/23/23 08/20/25 08/20/25 tablet,extended release 24 hr blood sugar diagnostic ([facility] 08/04/24 04/02/25 Unknown Verio test strips) coenzyme Q10 100 mg capsule 100 mg PO DAILY 08/04/24 08/20/25 08/20/25 (CoQ-10) lancets 30 gauge ([facility] Delica 08/04/24 04/02/25 Unknown Plus Lancet) magnesium oxide 400 mg (241.3 mg 400 mg PO DAILY 08/04/24 08/20/25 08/20/25 magnesium) tablet aspirin 81 mg tablet,delayed 81 mg PO QAM #30 tabs 10/16/24 08/20/25 08/20/25 release polyethylene glycol 3350 17 gram 17 g PO DAILY PRN laxative effect 10/16/24 08/20/25 Unknown oral powder packet (Miralax) #30 ea pantoprazole 40 mg tablet,delayed 40 mg PO DAILYBB 12/28/24 08/20/25 08/20/25 release albuterol sulfate 90 mcg/actuation 2 puff inhalation Q4H PRN SOB 04/01/25 08/20/25 Unknown aerosol inhaler azelastine 137 mcg (0.1 %) nasal 2 spray intranasal QPM 04/01/25 08/20/25 08/19/25 spray fluticasone propionate 50 2 spray intranasal QAM 04/01/25 08/20/25 08/20/25 mcg/actuation nasal spray,suspension guaifenesin 600 mg tablet, 600 mg PO Q12H PRN Congestion 04/01/25 08/20/25 Unknown extended release 12 hr (Mucinex) ketoconazole 2 % topical cream 1 applic topical DAILY PRN Rash 04/01/25 08/20/25 Unknown levothyroxine 75 mcg tablet 75 mcg PO DAILYBB 08/20/25 08/20/25 08/20/25 losartan 50 mg tablet 50 mg PO DAILY 08/20/25 08/20/25 08/20/25 metoprolol succinate 50 mg 50 mg PO QAM 08/20/25 08/20/25 08/20/25 tablet,extended release 24 hr cqiswlcojcxr-vmjbrjzb-cvmacb tablet 1 tab PO DAILY 08/20/25 08/20/25 08/20/25 nystatin 100,000 unit/gram topical 1 applic topical BID PRN NEEDED 08/20/25 08/20/25 Unknown cream potassium chloride 10 mEq 20 meq PO BID 08/20/25 08/20/25 08/20/25 08:00 capsule,extended release torsemide 20 mg tablet 20 mg PO QAM 08/20/25 08/20/25 08/20/25 vitamin B complex-vitamin C-folic 1 tab PO DAILY 08/20/25 08/20/25 08/20/25 acid 1 mg tablet
[2025-08-20] MEDS ORDERED: NYSTATIN CR 15 GM TUBE EXT PRN (22:54)
[2025-08-20] MEDS ORDERED: POLYETHYLENE (MIRALAX) 17 GM PACK PO PRN (22:54)
[2025-08-20] MEDS ORDERED: ALBUTEROL HFA 8 GM INHALER INH PRN (22:54)
[2025-08-20] MEDS ORDERED: ONDANSETRON INJ 2 MG/ML 2 ML VIAL IV PRN (22:56)
[2025-08-20] MEDS ORDERED: MELATONIN 3 MG TAB PO PRN (22:56)
[2025-08-20] MEDS ORDERED: DEXTROSE 50% 50 ML SYRINGE IV PRN (23:28)
[2025-08-20] MEDS ORDERED: GLUCOSE 40% GEL 15 GM TUBE PO PRN (23:28)
[2025-08-20] MEDS ORDERED: GLUCAGON FOR INJ 1 MG VIAL SQ PRN (23:28)
[2025-08-20] MEDS ORDERED: GLUCOSE 10 TAB/TUBE PO PRN (23:28)
[2025-08-20] MEDS ORDERED: CARBOHYDRATES FOR HYPOGLYCEMIA PO PRN (23:28)
[2025-08-21] MEDS: BIMATOPROST 0.01% OP SOLN 2.5 ML BTL OP SCH (01:45)
[2025-08-21] MEDS: guaiFENesin 600 MG TABCR PO SCH (01:45)
[2025-08-21] MEDS: MONTELUKAST SODIUM 10 MG TABLET PO SCH (02:15)
[2025-08-21] MEDS: DICLOFENAC SOD 1% GEL 100 GM TUBE EXT SCH (02:15)
[2025-08-21] MEDS: ACETAMINOPHEN 500 MG TAB PO SCH (05:35)
[2025-08-21] MEDS: LEVOTHYROXINE SODIUM 75 MCG TABLET PO SCH (05:35)
[2025-08-21 07:23] LABS: Hematocrit (blood only) 36.4 % (37.0-47.0); Hemoglobin 12.1 g/dl (12.0-16.0); Mean Corpuscular Hemoglobin 30.9 pg (25.0-34.0); Mean Corpuscular Volume 93.1 fL (80.0-100.0); Platelet Count 251 K/uL (130-400); RDW Standard Deviation 49.1 fL (36.4-46.3); Red Blood Count 3.91 M/uL (4.20-5.40); White Blood Count 7.75 K/ul (4.8-10.8)
[2025-08-21 07:50] LABS: Anion Gap 9.0 (3-11); Blood Urea Nitrogen 40.0 mg/dl (6-23); Calcium 9.2 mg/dl (8.6-10.3); Carbon Dioxide 26.0 mmol/L (21-32); Chloride 105.0 mmol/L (98-107); Creatinine Clr Calc Pharmacy 31.4 ml/min; Glucose 121.0 mg/dl (70-99(Fasting)); Magnesium 2.0 mg/dl (1.7-2.4); Potassium 4.0 mmol/L (3.5-5.1); Sodium 140.0 mmol/L (136-145)
[2025-08-21] MEDS: INSULIN ASPART PER UNIT CHARGE SC SCH (09:08)
[2025-08-21] MEDS: ASPIRIN 81 MG ECTAB PO SCH (09:09)
[2025-08-21] MEDS: FLUTICASONE PROPIONATE NA SPR 16 GM BTL NAE SCH (09:09)
[2025-08-21] MEDS: FLUTICASONE/VILANTEROL 200/25MCG 14 PUFFS/INHALER INH SCH (09:10)
[2025-08-21] MEDS: LOSARTAN POTASSIUM 50 MG TAB PO SCH (09:10)
[2025-08-21] MEDS: MAGNESIUM OXIDE 400 MG TAB PO SCH (09:10)
[2025-08-21] MEDS: METOPROLOL SUCC 50MG EXT REL TAB PO SCH (09:12)
[2025-08-21] MEDS: OXYBUTYNIN CHLORIDE XL 5 MG TABCR PO SCH (09:12)
[2025-08-21] MEDS: CEROVITE ADV FORMULA TAB PO SCH (09:12)
[2025-08-21] MEDS: TORSEMIDE 20 MG TAB PO SCH (09:13)
[2025-08-21] MEDS: POTASSIUM CHLORIDE 10 MEQ TABCR PO SCH (09:13)
--- NOTE | 2025-08-21 10:40 | Hospitalist Progress Note ---
Date of Service August 21, 2025 Assessment & Plan (1) Fall: (2) Ambulatory dysfunction: (3) History of cardioembolic cerebrovascular accident (CVA): Plan Ms. Palacios is an 85-year-old female with past medical history of type 2 diabetes mellitus, hypothyroidism, hyperlipidemia, DEMARIO, mild persistent asthma, paroxysmal A-fib, CAD, hypertension, GERD, stage III CKD, degenerative disks disease, prior subdural hematoma, SIADH/chronic hyponatremia, mood disorder admitted for pain control after mechanical fall. #Mechanical fall #Ambulatory dysfunction #Acute right knee pain #Chronic left ankle pain 2/ fall 03/2025 #Prior Fall c/b subdural hematoma on CT scan (09/2024) #prior CVA -multiple falls in last year resulting in admission, no longer on AC - Imaging neg for fracture or deformity Plan -Continue pain control -PT/OT -Dispo TBD based on therapy eval -Likely medically ready for DC home vs SNF tomorrow # Paroxysmal atrial fibrillation -Persistently bradycardic with rate in 50s -Not on AC due to fall/bleed risk Plan -Decrease toprol from 50mg to 25mg daily -Monitor HR #Chronic HFpEF ECHO (02/19) LVEF 65-70%, mild aortic valve sclerosis without stenosis, moderate posterior mitral annular calcification, and grade I diastolic dysfunction euvolemic upon Continue torsemide 20 mg daily Continue potassium bid #HTN continue losartan #Coronary artery disease s/p stent 1999 no chest pain Continue asa and statin #hypothyroidism continue levothyroxine #type 2 diabetes mellitus well-controlled; sliding scale insulin #COPD Continue home inhaler/montelukast DVT SCDs/Tera stockings; hx of subdural Full code I spent a total of 39 minutes coordinating, documenting, and providing care for this patient excluding time spent in the performance of separately billed services. This included personally reviewing all current laboratories and imaging studies, medical reconciliation, outpatient chart review and discussion with specialists Admission and Anticipated Discharge Date Admission Date: August 20, 2025 Subjective Feeling well today. only complaint is R knee pain. Patient denies F/C, CP, palpitations, SOB, dyspnea, abd pain, N/V/D Physical Exam Physical Exam: Vitals and labs reviewed General: frail, elderly appearing in NAD HEENT: EOMI, PERRLA Neck: Supple Cardiac: bradycardic, sinus rhythm Lungs: CTA no rhonchi wheezing or rales Abd: S NT ND BS positive : no ruiz MSK: Full passive ROM in RLE. crepitus in R knee without obvious effusion Ext: No Edema cyanosis Skin: Warm, Dry Neuro: LUE and LLE weakness, at baseline. no CN deficits. Psych: Normal Mood Results & Data Results & Data Vital Signs (Past 12 Hours) Vital Signs Temp Pulse Pulse Resp BP Pulse Ox O2 Del Method 08/21/25 07:01 36.4 C L 50 L 16 113/69 98 Room Air 08/21/25 01:10 Room Air 08/21/25 00:29 36.5 C 53 L 16 154/69 H 96 Room Air 08/20/25 23:45 56 L 20 97 Room Air
[2025-08-21] MEDS: ATORVASTATIN 20 MG TAB PO SCH (20:58)
[2025-08-22] MEDS: METOPROLOL SUCC 25MG EXT REL TAB PO SCH (10:11)
--- NOTE | 2025-08-22 13:44 | Hospitalist Progress Note ---
Date of Service August 22, 2025 Assessment & Plan (1) Fall: (2) Ambulatory dysfunction: (3) History of cardioembolic cerebrovascular accident (CVA): Plan Patient is an 85y/o F with PMHx significant for diet-controlled DM2, hypothyroidism, HLD, HTN, DEMARIO with CPAP intolerance, mild persistent asthma, nonallergic rhinitis, history of PE related to OCP use, PAF not on anticoagulation due to history of traumatic subdural hematoma and recurrent falls, history of cardioembolic CVA in November 2023 with residual L-sided weakness and word-finding difficulty, CAD with remote PCI and LAD stent placement in 1999, HFpEF, CKD stage III, GERD with esophagitis, SIADH, adjustment disorder with depressed mood and chronic anemia who is admitted under our service for pain control and possible placement after sustaining a mechanical fall at home. #Acute R knee pain s/p mechanical fall at home #Ambulatory dysfunction #Chronic L ankle pain 2/2 fall in March 2025 #History of recurrent falls Multiple falls in the last year resulting in admission Imaging negative for fracture/acute traumatic injury R knee pain improving with topical Voltaren application Not requiring any PRN narcotics for pain control PT/OT recommending SNF -Spoke with pt's son, Titus, @ [phone] -Would like referral placed to [facility] (pt previously there and has done well) -Spoke with Amy SPEARS --> backup referral will be placed to [facility] in case pt is not accepted to [facility] #PAF No longer on anticoagulation 2/2 history of traumatic subdural hematoma in September 2024 and recurrent falls Toprol-XL dose decreased from 50mg to 25mg on 08/21 due to persistent bradycardia HR ~70bpm during my eval this AM, will continue decreased Toprol-XL dose and monitor #Chronic HFpEF TTE, 03/2025: LVEF = 60-65%, no regional wall motion abnormalities, moderately dilated LA, moderate to severe posterior mitral annular calcification, mild MR, mild TR, moderate pulmonary HTN with pulmonary artery systolic pressure of 56mmHg and grade II DD Remains euvolemic on exam today, wt stable Continue torsemide Continue K+ supplementation #HTN Continue losartan with hold parameters #CAD with remote PCI and LAD stent placement in 1999 Continue ASA, statin #Hypothyroidism Continue levothyroxine #DM2 Diet-controlled Hemoglobin A1c 5.1% as of 09/2024 SSI regimen as per inpatient protocol Continue BSG checks ACHS #History of embolic CVA in November 2023 With residual L-sided weakness and word finding difficulty Other Chronic Medical Conditions: Asthma - well-controlled, continue Singular/inhaler Stress urinary incontinence - continue Ditropan XL GERD - continue PPI DVT Prophylaxis: SCDs/TEDs only given history of recurrent falls and traumatic SDH Disposition: Hopeful DC within the next 1-2 days to either [facility] or SNF Patient seen in collaboration with Dr. Quiroz. Please see addendum. I spent a total of 32 minutes coordinating, documenting, and providing care for this patient excluding time spent in the performance of separately billed services or time spent by another provider/QHP. This included personally reviewing all current laboratories and imaging studies, medical reconciliation, outpatient chart review and discussion with specialists. This chart was completed in part utilizing Speech Voice Recognition Software. Grammatical errors, random word insertions, pronoun errors, and incomplete sentences are an occasional consequence of this system due to software limitations, ambient noise, and hardware issues. Any formal questions or concerns about the content, text, or information contained within the body of this dictation should be directly addressed to the provider for clarification. Admission and Anticipated Discharge Date Admission Date: August 20, 2025 Supervising Physician Co-Signing Physician Notes patient seen and examined at bedside; comfortable; not in any distress discussed regarding possible rehab placement. plans to discuss with son and decide on it. I have reviewed the advanced practitioner's documentation, and I agree with, and take responsibility for the plan of care I spent a total of 20 minutes coordinating, documenting, and providing care for this patient excluding time spent in the performance of separately billed services. All of the aforementioned completed while collaborating with the assigned advanced practitioner for a full treatment plan Subjective Patient seen and examined in room 377-1. NAEO. Right knee pain improved with Voltaren gel application. Review of Systems Review of Systems: At least ten systems reviewed and negative, except as noted in the subjective section. Physical Exam Physical Exam: General: Elderly, F, NAD, sitting up in bed, A&Ox3, engaged in conversation HEENT: Normocephalic, atraumatic, moist mucous membranes Respiratory: Normal respiratory effort, CTAB Cardiovascular: RRR, trace BLE edema Abdomen/GI: Normal bowel sounds, soft, nondistended, nontender to palpation in all quadrants Extremities/MSK: No cyanosis or clubbing, chronic LUE/LLE weakness from prior CVA (unchanged from baseline), actively moves all extremities Neurologic: No overt focal deficits, CN's II-XI not formally tested but appear grossly intact bilaterally, some word finding difficulties s/p prior CVA Results & Data Results & Data Vital Signs (Past 12 Hours) Vital Signs Temp Pulse Resp BP BP Pulse Ox O2 Del Method 08/22/25 11:33 67 113/73 96 Room Air 08/22/25 07:41 36.4 C L 18 119/65 96 Room Air 08/22/25 07:23 Room Air (1) Fall Encounter type: initial encounter Qualified Code(s): W19.XXXA - Unspecified fall, initial encounter
[2025-08-23 07:34] LABS: Hematocrit (blood only) 35.0 % (37.0-47.0); Hemoglobin 11.1 g/dl (12.0-16.0); Mean Corpuscular Hemoglobin 29.6 pg (25.0-34.0); Mean Corpuscular Volume 93.3 fL (80.0-100.0); Platelet Count 233 K/uL (130-400); RDW Standard Deviation 49.2 fL (36.4-46.3); Red Blood Count 3.75 M/uL (4.20-5.40); White Blood Count 7.10 K/ul (4.8-10.8)
[2025-08-23 08:01] LABS: Anion Gap 6.0 (3-11); Blood Urea Nitrogen 37.0 mg/dl (6-23); Calcium 9.2 mg/dl (8.6-10.3); Carbon Dioxide 28.0 mmol/L (21-32); Chloride 104.0 mmol/L (98-107); Creatinine Clr Calc Pharmacy 37.3 ml/min; Glucose 126.0 mg/dl (70-99(Fasting)); Potassium 4.1 mmol/L (3.5-5.1); Sodium 138.0 mmol/L (136-145)
--- NOTE | 2025-08-23 10:36 | Hospitalist Progress Note ---
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 #Acute R knee pain s/p mechanical fall at home #Ambulatory dysfunction #Chronic L ankle pain 2/2 fall in March 2025 #History of recurrent falls Multiple falls in the last year resulting in admission Imaging negative for fracture/acute traumatic injury R knee pain improving with topical Voltaren application PT/OT recommending SNF -Spoke with pt's son, Titus, @ [phone] -Would like referral placed to [facility] (pt previously there and has done well) -Spoke with Amy SPEARS --> backup referral placed to [facility] in case pt is not accepted to [facility] -Currently awaiting placement #PAF No longer on anticoagulation 2/2 history of traumatic subdural hematoma in September 2024 and recurrent falls Toprol-XL dose decreased from 50mg to 25mg on 08/21 due to persistent bradycardia HR now in the 50s-60s at rest, will continue to monitor on reduced Toprol-XL dose #Chronic HFpEF TTE, 03/2025: LVEF = 60-65%, no regional wall motion abnormalities, moderately dilated LA, moderate to severe posterior mitral annular calcification, mild MR, mild TR, moderate pulmonary HTN with pulmonary artery systolic pressure of 56mmHg and grade II DD Remains euvolemic on exam today, wt stable Continue torsemide Continue K+ supplementation #HTN Continue losartan with hold parameters #CAD with remote PCI and LAD stent placement in 1999 Continue ASA, statin #Hypothyroidism Continue levothyroxine #DM2 Diet-controlled Hemoglobin A1c 5.1% as of 09/2024 SSI regimen as per inpatient protocol Continue BSG checks ACHS #History of embolic CVA in November 2023 With residual L-sided weakness and word finding difficulty Other Chronic Medical Conditions: Asthma - well-controlled, continue Singular/inhaler Stress urinary incontinence - continue Ditropan XL GERD - continue PPI DVT Prophylaxis: SCDs/TEDs only given history of recurrent falls and traumatic SDH Disposition: Hopeful DC within the next 1-2 days to either [facility] or SNF; stable for DC once placement becomes available Patient seen in collaboration with Dr. Quiroz. Please see addendum. I spent a total of 28 minutes coordinating, documenting, and providing care for this patient excluding time spent in the performance of separately billed services or time spent by another provider/QHP. This included personally reviewing all current laboratories and imaging studies, medical reconciliation, outpatient chart review and discussion with specialists. This chart was completed in part utilizing Speech Voice Recognition Software. Grammatical errors, random word insertions, pronoun errors, and incomplete sentences are an occasional consequence of this system due to software limitations, ambient noise, and hardware issues. Any formal questions or concerns about the content, text, or information contained within the body of this dictation should be directly addressed to the provider for clarification. Admission and Anticipated Discharge Date Admission Date: August 22, 2025 Supervising Physician Co-Signing Physician Notes patient seen and examined at bedside; comfortable; not in any distress Case management on board for rehab placement. I have reviewed the advanced practitioner's documentation, and I agree with, and take responsibility for the plan of care I spent a total of 20 minutes coordinating, documenting, and providing care for this patient excluding time spent in the performance of separately billed services. All of the aforementioned completed while collaborating with the assigned advanced practitioner for a full treatment plan Subjective Patient seen and examined in room 377-1. Up and ambulating the halls with OT this morning. Right knee feels sore but otherwise offers no major complaints. Slept well overnight. Awaiting placement. Review of Systems Review of Systems: At least ten systems reviewed and negative, except as noted in the subjective section. Physical Exam Physical Exam: General: Elderly, F, NAD, sitting up in bedside chair, A&Ox3 with transient periods of forgetfulness but otherwise engaged in conversation HEENT: Normocephalic, atraumatic, moist mucous membranes Respiratory: Normal respiratory effort, CTAB Cardiovascular: RRR, no BLE edema Abdomen/GI: Normal bowel sounds, soft, nondistended, nontender to palpation in all quadrants Extremities/MSK: No cyanosis or clubbing, chronic LUE/LLE weakness from prior CVA (unchanged from baseline), actively moves all extremities, some R knee swelling Neurologic: No overt focal deficits, CN's II-XI not formally tested but appear grossly intact bilaterally, some word finding difficulties s/p prior CVA Results & Data Results & Data Vital Signs (Past 12 Hours) Vital Signs Temp Pulse Resp BP Pulse Ox O2 Del Method 08/23/25 07:34 36.7 C 54 L 14 118/68 96 Room Air 08/22/25 23:00 36.4 C L 53 L 12 102/58 L 95 Room Air Laboratory Results Short CBC 08/23/25 Range/Units 06:58 WBC 7.10 (4.8-10.8) K/ul Hgb 11.1 L (12.0-16.0) g/dl Hct 35.0 L (37.0-47.0) % Plt Count 233 (130-400) K/uL BMP 08/23/25 06:58 Sodium 138 Potassium 4.1 Chloride 104 Carbon Dioxide 28 BUN 37 H Creatinine 1.00 Glucose 126 H Calcium 9.2 (1) Fall Encounter type: initial encounter Qualified Code(s): W19.XXXA - Unspecified fall, initial encounter
[2025-08-24 09:08] LABS: Base Excess VBG 6.9 mEq/L; HCO3 VBG 33 mmol/L; Oxygen Saturation VBG 69.7 %; PCO2 VBG 49 mmHg (38-50); PO2 VBG 41 mmHg; pH VBG 7.43 (7.36-7.41)
[2025-08-24 09:16] LABS: Hematocrit (blood only) 37.1 % (37.0-47.0); Hemoglobin 12.5 g/dl (12.0-16.0); Immature Granulocytes # (auto) 0.02 K/uL (0.01-0.20); Immature Granulocytes % (auto) 0.3 %; Mean Corpuscular Hemoglobin 31.0 pg (25.0-34.0); Mean Corpuscular Volume 92.1 fL (80.0-100.0); Platelet Count 246 K/uL (130-400); RDW Standard Deviation 47.9 fL (36.4-46.3); Red Blood Count 4.03 M/uL (4.20-5.40); White Blood Count 5.98 K/ul (4.8-10.8)
[2025-08-24 09:36] LABS: Alanine Aminotransferase 8.0 U/L (7-52); Albumin Globulin Ratio 1.3 (0.9-2); Albumin Level 3.7 gm/dl (3.4-5.0); Alkaline Phosphatase 59.0 U/L (34-104); Anion Gap 5.0 (3-11); Bilirubin,Total 0.3 mg/dl (0.2-1.0); Blood Urea Nitrogen 36.0 mg/dl (6-23); Calcium 9.6 mg/dl (8.6-10.3); Carbon Dioxide 29.0 mmol/L (21-32); Chloride 104.0 mmol/L (98-107); Creatinine Clr Calc Pharmacy 37.7 ml/min; Globulin 2.8 gm/dl (2.5-4.0); Glucose 122.0 mg/dl (70-99(Fasting)); Potassium 4.4 mmol/L (3.5-5.1); Sodium 138.0 mmol/L (136-145); Total Protein 6.5 gm/dl (6.0-8.3)
--- NOTE | 2025-08-24 10:01 | CT Scan Report ---
CT head/brain wo con CLINICAL HISTORY: Not acting like self, confusion. TECHNIQUE: Multiple axial CT images of the head were obtained without contrast. A dose lowering tech nique was utilized adhering to the principles of ALARA. CT DOSE: 625.8 mGy.cm COMPARISON: 04/01/2025 FINDINGS: There are stable mild chronic small vessel ischemic changes. No intracranial hemorrhage see n. No mass effect, midline shift, or hydrocephalus. No skull fracture seen. Visualized paranasal sinu ses and mastoid air cells are clear. IMPRESSION: No acute findings. ACT 112: Negative or not required by law. The above report was generated using voice recognition software. It may contain grammatical, syntax o r spelling errors. Electronically signed by: Jake Pink M.D. 08/24/2025 9:59 AM
--- NOTE | 2025-08-24 11:54 | Hospitalist Progress Note ---
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 #Acute R knee pain s/p mechanical fall at home #Ambulatory dysfunction #Chronic L ankle pain 2/2 fall in March 2025 #History of recurrent falls Multiple falls in the last year resulting in admission Imaging negative for fracture/acute traumatic injury R knee pain improving with topical Voltaren application PT/OT recommending SNF -[facility] auth pending -Backup SNF referral to [facility] if [facility] not able to take pt Called to examine pt earlier this AM by RN Pt refused to speak but would follow commands Would shake head yes/no to direct questioning Exam otherwise grossly unremarkable, VSS Stat head CT obtained which was unremarkable Also checked stat labs including CBC with differential, CMP, ammonia and VBG which were grossly unremarkable Updated pt's son, Titus, @ [phone] -Mentioned that his mother's roommate had several visitors yesterday evening, including multiple children -His mother did mention last evening that this was upsetting her and that she was constantly asking to go home -? possible behavioral response in reaction to this given unremarkable workup including head CT -Pt reportedly did talk with CT transport staff and seemed to be acting appropriately Pt still not speaking with staff on the floor Will reassess patient later this afternoon and update her son #PAF No longer on anticoagulation 2/2 history of traumatic subdural hematoma in September 2024 and recurrent falls Toprol-XL dose decreased from 50mg to 25mg on 08/21 due to persistent bradycardia HR now in the 50s-60s at rest, will continue to monitor on reduced Toprol-XL dose #Chronic HFpEF TTE, 03/2025: LVEF = 60-65%, no regional wall motion abnormalities, moderately dilated LA, moderate to severe posterior mitral annular calcification, mild MR, mild TR, moderate pulmonary HTN with pulmonary artery systolic pressure of 56mmHg and grade II DD Remains euvolemic on exam today, wt stable Continue torsemide Continue K+ supplementation #HTN Continue losartan with hold parameters #CAD with remote PCI and LAD stent placement in 1999 Continue ASA, statin #Hypothyroidism Continue levothyroxine #DM2 Diet-controlled Hemoglobin A1c 5.1% as of 09/2024 SSI regimen as per inpatient protocol Continue BSG checks ACHS #History of embolic CVA in November 2023 With residual L-sided weakness and word finding difficulty Other Chronic Medical Conditions: Asthma - well-controlled, continue Singular/inhaler Stress urinary incontinence - continue Ditropan XL GERD - continue PPI DVT Prophylaxis: SCDs/TEDs only given history of recurrent falls and traumatic SDH Disposition: Awaiting placement, stable for discharge from medical standpoint given unremarkable workup Patient seen in collaboration with Dr. Quiroz. Please see addendum. I spent a total of 40 minutes coordinating, documenting, and providing care for this patient excluding time spent in the performance of separately billed services or time spent by another provider/QHP. This included personally reviewing all current laboratories and imaging studies, medical reconciliation, outpatient chart review and discussion with specialists. This chart was completed in part utilizing Speech Voice Recognition Software. Grammatical errors, random word insertions, pronoun errors, and incomplete sentences are an occasional consequence of this system due to software limitations, ambient noise, and hardware issues. Any formal questions or concerns about the content, text, or information contained within the body of this dictation should be directly addressed to the provider for clarification. Admission and Anticipated Discharge Date Admission Date: August 22, 2025 Supervising Physician Co-Signing Physician Notes Patient noticed speaking with the providers. She is able to follow without any difficulty. She is following commands. She does not appear to be in any distre ss. Neuroexamination is unremarkable. Plan to do stroke workup. If stroke workup is unrevealing; plan to consult psychiatry for further evaluation. I have reviewed the advanced practitioner's documentation, and I agree with, and take responsibility for the plan of care I spent a total of 20 minutes coordinating, documenting, and providing care for this patient excluding time spent in the performance of separately billed services. All of the aforementioned completed while collaborating with the assigned advanced practitioner for a full treatment plan Subjective Patient seen at bedside with RN this morning. Patient refusing to speak yet is following commands. Only shaking head yes and no to direct questioning. Not eating breakfast. Review of Systems Review of Systems: Unable to properly obtain ROS. Physical Exam Physical Exam: General: Elderly, F, NAD, laying down in bed, refusing to speak but following verbal commands and shaking head yes/no to direct questioning HEENT: Normocephalic, atraumatic, moist mucous membranes Respiratory: Normal respiratory effort, CTAB Cardiovascular: RRR, no BLE edema Abdomen/GI: Normal bowel sounds, soft, nondistended, nontender to palpation in all quadrants Extremities/MSK: No cyanosis or clubbing, chronic LUE/LLE weakness from prior CVA (unchanged from baseline) otherwise all other extremities with intact strength, actively moves all extremities, some R knee swelling Neurologic: No overt focal deficits, CN's II-XI not formally tested but appear grossly intact bilaterally Results & Data Results & Data Vital Signs (Past 12 Hours) Vital Signs Temp Pulse Resp BP Pulse Ox O2 Del Method 08/24/25 07:26 36.2 C L 57 L 14 127/72 96 Room Air Laboratory Results Short CBC 08/24/25 Range/Units 08:56 WBC 5.98 (4.8-10.8) K/ul Hgb 12.5 (12.0-16.0) g/dl Hct 37.1 (37.0-47.0) % Plt Count 246 (130-400) K/uL BMP 08/24/25 08:56 Sodium 138 Potassium 4.4 Chloride 104 Carbon Dioxide 29 BUN 36 H Creatinine 0.99 Glucose 122 H Calcium 9.6 Liver Function 08/24/25 Range/Units 08:56 Total Bilirubin 0.3 (0.2-1.0) mg/dl AST 14 (13-39) U/L ALT 8 (7-52) U/L Alkaline Phosphatase 59 (34-104) U/L Albumin 3.7 (3.4-5.0) gm/dl (1) Fall Encounter type: initial encounter Qualified Code(s): W19.XXXA - Unspecified fall, initial encounter
--- NOTE | 2025-08-24 12:30 | Communication Note ---
Date of Service: August 24, 2025 Patient still not talking this afternoon. Will get brain MRI, head and neck CTA for further evaluation. Bridgette Neri PA-C [facility] Medicine Service
[2025-08-24] MEDS: OPTIRAY 320 125ml IV ONE (14:04)
--- NOTE | 2025-08-24 14:31 | CT Scan Report ---
CT ANGIOGRAM OF THE NECK CLINICAL HISTORY: Change in mental status. COMPARISON STUDY: CT angiogram of the neck dated 02/08/2024 TECHNIQUE: Following the IV administration of 120 of Optiray 320, CT angiogram of the neck was perfor med from the aortic arch to the skull base. Images are reviewed in the axial, sagittal, and coronal p lanes. 3-D MIPS images are created and assessed. IV contrast was administered without complication. A ll measurements were calculated based on NASCET criteria. A dose lowering technique was utilized adh ering to the principles of ALARA. CT DOSE: 1352.96 mGy.cm FINDINGS: Thoracic aorta: Visualized portions of the thoracic aorta are normal in caliber. The aortic arch demo nstrates standard 3-vessel anatomy. Right carotid arterial system: The right common carotid artery is widely patent, as are the right int ernal and external carotid arteries. Calcified plaque is noted in the carotid bulb. Left carotid arterial system: The left common carotid artery is widely patent, as are the left corporate legal intern al and external carotid arteries. Calcified plaque is seen in the carotid bulb. Vertebral arteries: The vertebral arteries are widely patent bilaterally noting left-sided dominance. Subclavian arteries: Widely patent bilaterally. Intracranial vasculature: The visualized intracranial vessels at the skull base are patent. Jugular veins: Patent bilaterally. Brain parenchyma: The visualized brain parenchyma the skull base is within normal limits. Lung apices: Partially visualized upper lobe lung parenchyma appears clear. Soft tissues: The visualized pharyngeal soft tissues are normal in appearance noting angiographic pha se technique. The oropharyngeal airway appears widely patent. The salivary and thyroid glands are nor mal in appearance. No cervical lymphadenopathy is seen. Skeletal structures: The skeletal structures are osteopenic. The visualized calvarium at the skull ba se appears intact. The imaged cervical spine is maintained noting multilevel spondylosis. Sinuses and mastoids: The visualized paranasal sinuses are clear. The mastoid air cells are well pneu matized. IMPRESSION: Unremarkable CT angiogram of the neck. ACT 112: Negative or not required by law. Electronically signed by: Mark Solano M.D. 08/24/2025 2:30 PM
--- NOTE | 2025-08-24 14:32 | CT Scan Report ---
CT angio head wo/w CLINICAL HISTORY: 85 years-old Female with AMS. Acutely altered mental status COMPARISON STUDY: Head CT of same day 40 5:00 AM, brain MRI 04/22, CTA head 02/08/2024 TECHNIQUE: Unenhanced axial CT scan of the brain is performed. Subsequently, following the IV adminis tration of 120 cc of Optiray, CT angiogram of the brain was performed from the skull base to the vert ex. Images are reviewed in the axial, sagittal, and coronal planes. 3-D MIPS images are created and a ssessed. IV contrast was administered without complication. All measurements were obtained according to NASCET criteria. A dose lowering technique was utilized adhering to the principles of ALARA. FINDINGS: CT BRAIN: There is no acute intracranial hemorrhage, midline shift, hydrocephalus, intracranial mass, territori al ischemia or abnormal extra-axial collections. No abnormal intra-axial or extra-axial enhancement. Involutional changes with chronic microvascular ischemic disease redemonstrated. Calcifications of t he falx cerebri. Mastoid air cells and middle ear cavities are clear. No calvarial fracture. Paranasa l sinuses are clear. CT ANGIOGRAM OF THE BRAIN: The imaged bilateral internal carotid arteries are patent. The bilateral anterior and middle cerebral arteries are also patent. The vertebrobasilar system and posterior cerebral arteries are widely coleman nt. There is no aneurysm, high-grade stenosis, or proximal branch occlusion identified. Dural sinuses appear patent. IMPRESSION: 1. No acute intracranial abnormality. 2. Unremarkable CTA of the head. ACT 112: Negative or not required by law. The above report was generated using voice recognition software. It may contain grammatical, syntax o r spelling errors. Electronically signed by: Talib Morales M.D. 08/24/2025 2:31 PM
--- NOTE | 2025-08-24 14:47 | XRay Report ---
XR chest 1V not portable CLINICAL HISTORY: Clear for MRI COMPARISON STUDY: 04/02/2025 FINDINGS: There are mitral valvular calcifications. There is stable cardiomegaly without pulmonary va scular congestion. No consolidation or pleural effusion. No pneumothorax. No metallic medical secretary teacher or metallic foreign body seen in the chest. Recent head CT and most recent abdominal CT were also rev iewed. No contraindication to MR seen. IMPRESSION: Cleared for MRI. ACT 112: Negative or not required by law. Electronically signed by: Jake Pink M.D. 08/24/2025 2:45 PM
--- NOTE | 2025-08-24 14:48 | XRay Report ---
KUB HISTORY: Clear for MRI COMPARISON STUDY: 12/22/2023 FINDINGS: There is residual contrast in the urinary system. There is moderate retained stool. No anne l obstruction seen. There are a few pelvic surgical clips. No metallic foreign body or metallic medic al device seen otherwise. IMPRESSION: Cleared for MRI. ACT 112: Negative or not required by law. The above report was generated using voice recognition software. It may contain grammatical, syntax o r spelling errors. Electronically signed by: Jake Pink M.D. 08/24/2025 2:47 PM
--- NOTE | 2025-08-24 14:49 | XRay Report ---
XR cervical spine 1V CLINICAL HISTORY: Clear for MRI COMPARISON STUDY: None FINDINGS: There are carotid bulb calcifications. No metallic medical assistant per diem or metallic foreign body seen in the neck. IMPRESSION: Cleared for MRI. ACT 112: Negative or not required by law. Electronically signed by: Jake Pink M.D. 08/24/2025 2:47 PM
--- NOTE | 2025-08-24 15:37 | Magnetic Resonance Report ---
MR brain wo con HISTORY: 85 years-old Female AMS acutely altered mental status COMPARISON: 04/22/2025 brain MRI, CTA head 08/24/2025 TECHNIQUE: Multiplanar multisequence MRI of the brain was obtained without IV contrast FINDINGS: No restricted diffusion to suggest an acute or subacute infarct. Motion degraded exam. Midline struct ures are unremarkable. Partially empty sella. No acute intracranial hemorrhage, midline shift, abnorm al extra-axial collection, hydrocephalus or intra-axial mass. Cerebral venous sinuses and major arterial flow voids appear patent. Skull, orbits and soft tissues a re unremarkable. Prior bilateral injury. Delusional changes with mild to moderate T2/FLAIR hyperinten se foci throughout the white matter. IMPRESSION: 1. No acute intracranial abnormality, specifically there is no evidence of an acute infarct. 2. Involutional changes with chronic microvascular ischemic disease. ACT 112: Negative or not required by law. The above report was generated using voice recognition software. It may contain grammatical, syntax o r spelling errors. Electronically signed by: Talib Morales M.D. 08/24/2025 3:35 PM
[2025-08-25] MEDS: CALAMINE/PRAMOXINE LOTION 180 APPLN/180 ML BTL EXT PRN (02:11)
[2025-08-25 07:11] VITALS: RESP 16
--- NOTE | 2025-08-25 11:20 | Hospitalist Progress Note ---
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 #Acute R knee pain s/p mechanical fall at home #Ambulatory dysfunction #Chronic L ankle pain 2/2 fall in March 2025 #History of recurrent falls Multiple falls in the last year resulting in admission Imaging negative for fracture/acute traumatic injury R knee pain improving with topical Voltaren application PT/OT recommending SNF -[facility] auth pending, P2P to be completed on Wednesday, 08/27 -Backup SNF referral to [facility] if [facility] not able to accept pt #Acute inability to speak on 08/25, resolved Had been called to eval pt at bedside yesterday AM Pt refused to speak but would follow commands Would shake head yes/no to direct questioning Exam otherwise grossly unremarkable, VSS Stat head CT obtained which was unremarkable Also checked stat labs including CBC with differential, CMP, ammonia and VBG which were grossly unremarkable Pt reeval'd later in afternoon and was still not speaking Full stroke imaging eval completed including brain MRI, head/neck CTA which all came back unremarkable DDx: TIA vs stress response vs behavioral Pt's roommate the night before this occurred had multiple people visiting, including children, who were running around and yelling in the room -Pt mentioned that this upset her and made her feel anxious Pt much improved on exam today Conversant, engaged in conversation and pleasant #PAF No longer on anticoagulation 2/2 history of traumatic subdural hematoma in September 2024 and recurrent falls Toprol-XL dose decreased from 50mg to 25mg on 08/21 due to persistent bradycardia HR now in the 50s-70s at rest, will continue to monitor on reduced Toprol-XL dose #Chronic HFpEF TTE, 03/2025: LVEF = 60-65%, no regional wall motion abnormalities, moderately dilated LA, moderate to severe posterior mitral annular calcification, mild MR, mild TR, moderate pulmonary HTN with pulmonary artery systolic pressure of 56mmHg and grade II DD Remains euvolemic on exam Continue torsemide Continue K+ supplementation #HTN Continue losartan with hold parameters #CAD with remote PCI and LAD stent placement in 1999 Continue ASA, statin #Hypothyroidism Continue levothyroxine #DM2 Diet-controlled Hemoglobin A1c 5.1% as of 09/2024 SSI regimen as per inpatient protocol Continue BSG checks ACHS #History of embolic CVA in November 2023 With residual L-sided weakness and word finding difficulty Other Chronic Medical Conditions: Asthma - well-controlled, continue Singular/inhaler Stress urinary incontinence - continue Ditropan XL GERD - continue PPI DVT Prophylaxis: SCDs/TEDs only given history of recurrent falls and traumatic SDH Disposition: Awaiting placement, stable for discharge from medical standpoint once placement becomes available Patient seen in collaboration with Dr. Quiroz. Please see addendum. I spent a total of 36 minutes coordinating, documenting, and providing care for this patient excluding time spent in the performance of separately billed services or time spent by another provider/QHP. This included personally reviewing all current laboratories and imaging studies, medical reconciliation, outpatient chart review and discussion with specialists. This chart was completed in part utilizing Speech Voice Recognition Software. Grammatical errors, random word insertions, pronoun errors, and incomplete sentences are an occasional consequence of this system due to software li mitations, ambient noise, and hardware issues. Any formal questions or concerns about the content, text, or information contained within the body of this dictation should be directly addressed to the provider for clarification. Admission and Anticipated Discharge Date Admission Date: August 22, 2025 Supervising Physician Co-Signing Physician Notes Patient starting to speak; improvement close to baseline Awaiting placement. No other complains; vitals stable I have reviewed the advanced practitioner's documentation, and I agree with, and take responsibility for the plan of care I spent a total of 20 minutes coordinating, documenting, and providing care for this patient excluding time spent in the performance of separately billed services. All of the aforementioned completed while collaborating with the assigned advanced practitioner for a full treatment plan Subjective Patient seen and examined in room 377-1. Feeling much improved this morning, conversant. Ate breakfast. States speech is mostly back to baseline. Review of Systems Review of Systems: At least ten systems reviewed and negative, except as noted in the subjective section. Physical Exam Physical Exam: General: Elderly, F, NAD, sitting up in bed, A&Ox3 with transient periods of forgetfulness but otherwise engaged in conversation HEENT: Normocephalic, atraumatic, moist mucous membranes Respiratory: Normal respiratory effort, CTAB Cardiovascular: RRR, no BLE edema Abdomen/GI: Normal bowel sounds, soft, nondistended, nontender to palpation in all quadrants Extremities/MSK: No cyanosis or clubbing, chronic LUE/LLE weakness from prior CVA (unchanged from baseline), actively moves all extremities, some R knee swelling Neurologic: No overt focal deficits, CN's II-XI not formally tested but appear grossly intact bilaterally, some word finding difficulties s/p prior CVA (unchanged from baseline) Results & Data Results & Data Vital Signs (Past 12 Hours) Vital Signs Temp Pulse Resp BP BP Pulse Ox O2 Del Method 08/25/25 09:05 72 125/70 08/25/25 07:10 36.3 C L 57 L 16 125/71 96 Room Air (1) Fall Encounter type: initial encounter Qualified Code(s): W19.XXXA - Unspecified fall, initial encounter
[2025-08-25] MEDS: LACTATED RINGER'S 1,000 ML IV SCH (21:45)
--- NOTE | 2025-08-25 23:34 | CT Scan Report ---
Exam(s): CT HEAD Without Contrast EXAM: CT Head Without Intravenous Contrast CLINICAL HISTORY: Reason for exam: confusion/ speaking slowly. TECHNIQUE: Axial computed tomography images of the head/brain without intravenous contrast. CTDI is the 36.79 mGy and DLP is 624.41 mGy-cm. Automated exposure control was utilized for the study. A dose lowering technique was utilized adhering to the principles of ALARA. COMPARISON: 08/24/2025 FINDINGS: Brain: Mild cerebral atrophy and patchy periventricular white matter low densities consistent with chronic small vessel disease and/or senescent changes, unchanged. No acute large vessel infarct or intracranial hemorrhage is seen. Ventricles: Unremarkable. No ventriculomegaly. Bones/joints: Unremarkable. No acute fracture. Soft tissues: Unremarkable. Sinuses: Unremarkable as visualized. No acute sinusitis. Mastoid air cells: Unremarkable as visualized. No mastoid effusion. IMPRESSION: Mild cerebral atrophy and patchy periventricular white matter low densities consistent with chronic small vessel disease and/or senescent changes, unchanged. No acute large vessel infarct or intracranial hemorrhage is seen. Electronically signed by: Cb Mendez MD 08/25/25 23:33 PM
[2025-08-26 00:53] LABS: Appearance Urine Clear (Clear); Bacteria Urine Automated None Seen (None Seen); Epithelial Cell Urine Auto 0-2 /hpf (0-2); Glucose Urine UA Negative (Negative); RBC Urine Automated 0-2 /hpf (0-2); WBC Urine Automated 21-50 /hpf (0-5)
[2025-08-26 06:01] LABS: Hematocrit (blood only) 36.2 % (37.0-47.0); Hemoglobin 11.5 g/dl (12.0-16.0); Immature Granulocytes # (auto) 0.02 K/uL (0.01-0.20); Immature Granulocytes % (auto) 0.3 %; Mean Corpuscular Hemoglobin 29.9 pg (25.0-34.0); Mean Corpuscular Volume 94.3 fL (80.0-100.0); Platelet Count 226 K/uL (130-400); RDW Standard Deviation 50.0 fL (36.4-46.3); Red Blood Count 3.84 M/uL (4.20-5.40); White Blood Count 5.88 K/ul (4.8-10.8)
[2025-08-26 06:19] LABS: Anion Gap 6.0 (3-11); Blood Urea Nitrogen 41.0 mg/dl (6-23); Calcium 9.4 mg/dl (8.6-10.3); Carbon Dioxide 28.0 mmol/L (21-32); Chloride 103.0 mmol/L (98-107); Creatinine Clr Calc Pharmacy 34.3 ml/min; Glucose 106.0 mg/dl (70-99(Fasting)); Magnesium 2.1 mg/dl (1.7-2.4); Potassium 4.3 mmol/L (3.5-5.1); Sodium 137.0 mmol/L (136-145)
--- NOTE | 2025-08-26 10:04 | Hospitalist Progress Note ---
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 #Acute R knee pain s/p mechanical fall at home #Ambulatory dysfunction #Chronic L ankle pain 2/2 fall in March 2025 #History of recurrent falls Multiple falls in the last year resulting in admission Imaging negative for fracture/acute traumatic injury R knee pain improving with topical Voltaren application PT/OT recommending SNF -[facility] auth pending --> P2P to be completed on Wednesday, 08/27 -Backup SNF referral to [facility] if [facility] not able to accept #Speech difficulties Now with 2 separate episodes this admission First episode 08/24 in AM: pt was refusing to speak but would follow commands, shake head yes/no to direct questioning -Exam, VS were otherwise unremarkable -Stat head CT obtained and came back unremarkable -Stat labs including CBC, CMP, ammonia and VBG obtained and were grossly unremarkable -Pt eval'd in afternoon and was still not speaking -Had CVA w/u done including brain MRI, head/neck CTA which all came back unremarkable Pt then resumed talking later that evening Pt was conversant, engaged in conversation and pleasant on exam on 08/25 in AM DDx: TIA vs stress response vs behavioral Pt's roommate the night before this occurred had multiple people visiting, including children, who were running around and yelling in the room Pt mentioned that this upset her and made her feel anxious Second episode occurred just overnight: pt was speaking in low tone, mumbling words, speaking in single phrases -Exam, VS were otherwise unremarkable -Pt could say her name, recall where she was/situation and follow simple commands -Stat head CT done again which revealed no acute changes -UA also obtained: 21-50 WBC, 3+ LE but no bacteria -Pt w/o any specific urinary complaints -Likely asymptomatic bacteruria given PureWick use but will monitor urine culture results Pt still feels speech is "slow" this AM but otherwise it is clear States she was "very tired" last night and "did not feel like talking" Exam benign, no new focal deficits VSS, labs grossly unremarkable Communicating appropriately, engaged in conversation Baseline word finding difficulty relatively unchanged Eating breakfast without issue Asking to ambulate the halls today Could consider [employer] eval #PAF No longer on anticoagulation 2/2 history of traumatic subdural hematoma in September 2024 and recurrent falls Toprol-XL dose decreased from 50mg to 25mg on 08/21 due to persistent bradycardia HR now in the 50s-70s at rest, will continue to monitor on reduced Toprol-XL dose #Chronic HFpEF TTE, 03/2025: LVEF = 60-65%, no regional wall motion abnormalities, moderately dilated LA, moderate to severe posterior mitral annular calcification, mild MR, mild TR, moderate pulmonary HTN with pulmonary artery systolic pressure of 56mmHg and grade II DD Remains euvolemic on exam Continue torsemide Continue K+ supplementation #HTN Continue losartan with hold parameters #CAD with remote PCI and LAD stent placement in 1999 Continue ASA, statin #Hypothyroidism Continue levothyroxine #DM2 Diet-controlled Hemoglobin A1c 5.1% as of 09/2024 SSI regimen as per inpatient protocol Continue BSG checks ACHS #History of embolic CVA in November 2023 With residual L-sided weakness and word finding difficulty Other Chronic Medical Conditions: Asthma - well-controlled, continue Singular/inhaler Stress urinary incontinence - continue Ditropan XL GERD - continue PPI DVT Prophylaxis: SCDs/TEDs only given history of recurrent falls and traumatic SDH Disposition: Awaiting placement, stable for discharge from medical standpoint once placement becomes available VM left for pt's son, Titus, to provide him with update @ [phone] Patient seen in collaboration with Dr. Quiroz. Please see addendum. I spent a total of 44 minutes coordinating, documenting, and providing care for this patient excluding time spent in the performance of separately billed services or time spent by another provider/QHP. This included personally reviewing all current laboratories and imaging studies, medical reconciliation, outpatient chart review and discussion with specialists. This chart was completed in part utilizing Speech Voice Recognition Software. Grammatical errors, random word insertions, pronoun errors, and incomplete sentences are an occasional consequence of this system due to software li mitations, ambient noise, and hardware issues. Any formal questions or concerns about the content, text, or information contained within the body of this dictation should be directly addressed to the provider for clarification. Admission and Anticipated Discharge Date Admission Date: August 22, 2025 Supervising Physician Co-Signing Physician Notes Patient comfortable; not in any distress. No complains of fever, chills, chest pain, shortness of breath or abdominal issues. Awaiting placement. I have reviewed the advanced practitioner's documentation, and I agree with, and take responsibility for the plan of care I spent a total of 20 minutes coordinating, documenting, and providing care for this patient excluding time spent in the performance of separately billed services. All of the aforementioned completed while collaborating with the assigned advanced practitioner for a full treatment plan Subjective Patient reportedly having difficulty speaking last evening. Was mumbling her words and speaking choppily in 1 word phrases. Had repeat head CT done which was unremarkable. Upon evaluation this morning, patient admits to feeling very tired last evening and recalls all events that occurred. Feels speech is improved but still "slow." Offers no complaints besides this. Would like to get out of bed and walk the halls today as she feels she is getting weak. Eating breakfast without difficulty. Review of Systems Review of Systems: At least ten systems reviewed and negative, except as noted in the subjective section. Physical Exam Physical Exam: General: Elderly F, NAD, sitting up in bed, A&Ox3, somewhat slow with response to questioning but otherwise speech is clear, some word finding difficulties at baseline s/p prior CVA which is unchanged, engaged in conversation HEENT: Normocephalic, atraumatic, somewhat dry mucous membranes Respiratory: Normal respiratory effort, CTAB Cardiovascular: RRR, no BLE edema Abdomen/GI: Normal bowel sounds, soft, nondistended, nontender to palpation in all quadrants Extremities/MSK: No cyanosis or clubbing, chronic LUE/LLE weakness from prior CVA (unchanged from baseline), actively moves all extremities, mild R knee swelling (improved) Neurologic: No overt focal deficits, CN's II-XI not formally tested but appear grossly intact bilaterally Results & Data Results & Data Vital Signs (Past 12 Hours) Vital Signs Temp Pulse Resp BP Pulse Ox O2 Del Method 08/26/25 09:16 67 106/63 97 Room Air 08/26/25 07:06 36.3 C L 55 L 16 115/65 97 Room Air Laboratory Results Short CBC 08/26/25 Range/Units 05:33 WBC 5.88 (4.8-10.8) K/ul Hgb 11.5 L (12.0-16.0) g/dl Hct 36.2 L (37.0-47.0) % Plt Count 226 (130-400) K/uL BMP 08/26/25 05:33 Sodium 137 Potassium 4.3 Chloride 103 Carbon Dioxide 28 BUN 41 H Creatinine 1.09 Glucose 106 H Calcium 9.4 Urine 08/26/25 Range/Units 00:35 Urine Color Yellow Urine Appearance Clear (Clear) Urine pH 5.5 (4.5-7.5) Ur Specific [place] 1.016 (1.000-1.030) Urine Protein Negative (Negative) Urine Glucose (UA) Negative (Negative) (1) Fall Encounter type: initial encounter Qualified Code(s): W19.XXXA - Unspecified fall, initial encounter
--- NOTE | 2025-08-27 10:49 | Hospitalist Progress Note ---
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 Acute R knee pain s/p mechanical fall at home Ambulatory dysfunction Chronic L ankle pain 2/2 fall in March 2025 History of recurrent falls Multiple falls in the last year resulting in admission Imaging negative for fracture/acute traumatic injury R knee pain improving with topical Voltaren application PT/OT recommending SNF -> anticipate dc to [facility] tomorrow Speech difficulties First episode 08/24 in AM: pt was refusing to speak but would follow commands, shake head yes/no to direct questioning -Exam, VS were otherwise unremarkable -Stat head CT obtained and came back unremarkable -Stat labs including CBC, CMP, ammonia and VBG obtained and were grossly unremarkable -Pt eval'd in afternoon and was still not speaking -Had CVA w/u done including brain MRI, head/neck CTA which all came back unremarkable Second episode 08/25 in PM: pt was speaking in low tone, mumbling words, speaking in single phrases -Exam, VS were otherwise unremarkable -Pt could say her name, recall where she was/situation and follow simple commands -Stat head CT done again which revealed no acute changes -UA also obtained: 21-50 WBC, 3+ LE but no bacteria -Pt w/o any specific urinary complaints -Likely asymptomatic bacteruria given PureWick use but will monitor urine culture results BODY COVERER eval today and recommending: * Continue IDDSI 7 Easy to Chew Carb Consistent DMII diet * Aspiration and reflux precautions as listed and would recommend continuing medication for reflux control at DC * Mouth Care 2x/day * BODY COVERER f/u in DC setting PAF No longer on anticoagulation 2/2 history of traumatic subdural hematoma in September 2024 and recurrent falls Toprol-XL dose decreased from 50mg to 25mg on 08/21 due to persistent bradycardia HR now in the 50s-70s at rest, will continue to monitor on reduced Toprol-XL dose Chronic HFpEF TTE, 03/2025: LVEF = 60-65%, no regional wall motion abnormalities, moderately dilated LA, moderate to severe posterior mitral annular calcification, mild MR, mild TR, moderate pulmonary HTN with pulmonary artery systolic pressure of 56mmHg and grade II DD Remains euvolemic on exam Continue torsemide with potassium supplementation HTN Continue losartan with hold parameters CAD with remote PCI and LAD stent placement in 1999 Continue ASA and statin Hypothyroidism Continue levothyroxine DM2 Diet-controlled A1C 5.1% as of 09/2024 BSG ACHS and SSI while inpatient History of embolic CVA in November 2023 With residual L-sided weakness and word finding difficulty Asthma Continue inhalers Stress urinary incontinence Continue Ditropan XL GERD Continue PPI DVT Prophylaxis: SCDs/TEDs only given history of recurrent falls and traumatic SDH Code Status: FULL CODE PCP: Lilo Mai Disposition: dc to [facility] hopefully tomorrow Patient seen in collaboration with Dr. Quiroz. Please see addendum. I spent a total of 60 minutes coordinating, documenting and providing care for this patient excluding time spent in the performance of separately billed services or time spent by another provider/QHP. Admission and Anticipated Discharge Date Admission Date: August 22, 2025 Supervising Physician Co-Signing Physician Notes Patient comfortable; not in any distress. No complains of fever, chills, chest pain, shortness of breath or abdominal issues. Peer to peer done; acute rehab rejected; possible placement to SNF I have reviewed the advanced practitioner's documentation, and I agree with, and take responsibility for the plan of care I spent a total of 20 minutes coordinating, documenting, and providing care for this patient excluding time spent in the performance of separately billed services. All of the aforementioned completed while collaborating with the assigned advanced practitioner for a full treatment plan Subjective Patient seen resting in bed Reports no acute concerns Requesting to see Speech Therapy for ongoing expressive aphasia Denies dizziness, chest pain, SOB, abdominal pain, N/V Review of Systems Review of Systems: All systems reviewed & are unremarkable except as noted in HPI & below Physical Exam Physical Exam: General/Psych: WD/WN, sitting up in bed, NAD, some garbled speech/expressive aphasia Head: normocephalic, atraumatic Eyes: normal inspection, PERRL, conjunctivae pink ENT: external ear and nose normal, oropharynx normal Neck: normal visual inspection, trachea midline Respiratory: normal respiratory effort, lungs clear to auscultation, no wheeze/rales/rhonchi, no accessory muscle use Cardiovascular: regular rate and rhythm, no murmur/rub/gallop, no JVD Extremities: no cyanosis or clubbing, normal peripheral pulses, no BLE edema Abdomen/GI: normal bowel sounds, soft, nontender Neurologic/MSK: A+Ox3, motor strength 5/5, moves all extremities Skin: no rashes, normal color, warm and dry Results & Data Results & Data Vital Signs (Past 12 Hours) Vital Signs Temp Pulse Resp BP Pulse Ox O2 Del Method 08/27/25 07:18 36.3 C L 62 16 108/65 97 Room Air Medications Administered Current Inpatient Medications Acetaminophen (Acetaminophen 500 Mg Tab) 1,000 mg PO Q8H ALYSA Stop: 09/20/25 05:59 Last Admin: 08/27/25 13:55 Dose: 1,000 mg Albuterol (Albuterol Hfa 8 Gm Inhaler) 2 puffs INH Q4H PRN PRN Reason: Shortness Of Breath Stop: 09/19/25 22:53 Aspirin (Aspirin 81 Mg Ectab) 81 mg PO QAM ALYSA Stop: 09/20/25 08:59 Last Admin: 08/27/25 08:22 Dose: 81 mg Atorvastatin Calcium (Atorvastatin 20 Mg Tab) 20 mg PO HS ALYSA Stop: 09/20/25 20:59 Last Admin: 08/26/25 21:26 Dose: 20 mg Bimatoprost (Bimatoprost 0.01% Op Soln 2.5 Ml Btl) 1 drops OP HS ALYSA Stop: 09/19/25 22:59 Last Admin: 08/26/25 21:26 Dose: 1 drops Calamine/Pramoxine (Calamine/Pramoxine Lotion 180 Appln/180 Ml Btl) 1 appln EXT BID PRN PRN Reason: Itching Stop: 09/24/25 00:39 Last Admin: 08/27/25 04:04 Dose: 1 appln Dextrose (Dextrose 50% 50 Ml Syringe) 25 - 50 ml IV UD PRN; Protocol PRN Reason: Hypoglycemia Protocol Stop: 09/19/25 23:27 Diclofenac Sodium (Diclofenac Sod 1% Gel 100 Gm Tube) 2 gm EXT Q8H ALYSA; Protocol Stop: 09/20/25 00:00 Last Admin: 08/27/25 08:21 Dose: 2 gm Fluticasone Propionate (Fluticasone Propionate Na Spr 16 Gm Btl) 2 sprays CATRACHO QAM ALYSA Stop: 09/20/25 08:59 Last Admin: 08/27/25 08:23 Dose: 2 sprays Fluticasone/Vilanterol (Fluticasone/Vilanterol 200/25mcg 14 Puffs/Inhaler) 1 puffs INH DAILY ALYSA Stop: 09/20/25 08:59 Last Admin: 08/27/25 08:23 Dose: 1 puffs Glucagon (Glucagon For Inj 1 Mg Vial) 1 mg SQ UD PRN; Protocol PRN Reason: Hypoglycemia Protocol Stop: 09/19/25 23:27 Glucose (Glucose 40% Gel 15 Gm Tube) 15 - 30 gm PO UD PRN; Protocol PRN Reason: Hypoglycemia Protocol Stop: 09/19/25 23:27 Glucose (Glucose 10 Tab/Tube) 4 - 8 tab PO UD PRN; Protocol PRN Reason: Hypoglycemia Protocol Stop: 09/19/25 23:27 Guaifenesin (Guaifenesin 600 Mg Tabcr) 600 mg PO Q12 ALYSA Stop: 09/19/25 22:59 Last Admin: 08/27/25 08:22 Dose: 600 mg Insulin Aspart (Insulin Aspart Per Unit Charge) 0 units SC ACHS ALYSA Stop: 09/20/25 07:29 Last Admin: 08/27/25 12:17 Dose: Not Given Levothyroxine Sodium (Levothyroxine Sodium 75 Mcg Tablet) 75 mcg PO DAILYBB [facility] Stop: 09/20/25 06:29 Last Admin: 08/27/25 06:11 Dose: 75 mcg Losartan Potassium (Losartan Potassium 50 Mg Tab) 50 mg PO DAILY ALYSA Stop: 09/20/25 08:59 Last Admin: 08/27/25 08:22 Dose: 50 mg Magnesium Oxide (Magnesium Oxide 400 Mg Tab) 400 mg PO DAILY ALYSA Stop: 09/20/25 08:59 Last Admin: 08/27/25 08:22 Dose: 400 mg Melatonin (Melatonin 3 Mg Tab) 3 mg PO HS PRN PRN Reason: Insomnia Stop: 09/19/25 22:55 Metoprolol Succinate (Metoprolol Succ 25mg Ext Rel Tab) 25 mg PO QAM ALYSA Stop: 09/21/25 08:59 Last Admin: 08/27/25 08:22 Dose: 25 mg Miscellaneous (Carbohydrates For Hypoglycemia ) 15 - 30 gm PO UD PRN PRN Reason: Hypoglycemia Protocol Stop: 09/19/25 23:27 Montelukast Sodium (Montelukast Sodium 10 Mg Tablet) 10 mg PO HS ALYSA Stop: 09/19/25 22:59 Last Admin: 08/26/25 21:26 Dose: 10 mg Multivitamins/Minerals (Cerovite Adv Formula Tab) 1 tab PO DAILY ALYSA Stop: 09/20/25 08:59 Last Admin: 08/27/25 08:22 Dose: 1 tab Nystatin (Nystatin Cr 15 Gm Tube) 1 appln EXT BID PRN PRN Reason: NEEDED Stop: 09/19/25 22:53 Ondansetron HCl (Ondansetron Inj 2 Mg/Ml 2 Ml Vial) 4 mg IV Q6H PRN PRN Reason: Nausea Stop: 09/19/25 22:55 Oxybutynin Chloride (Oxybutynin Chloride Xl 5 Mg Tabcr) 10 mg PO QAM ALYSA Stop: 09/20/25 08:59 Last Admin: 08/27/25 08:22 Dose: 10 mg Pantoprazole Sodium (Pantoprazole 40 Mg Tab) 40 mg PO DAILYBB ALYSA Stop: 09/20/25 06:29 Last Admin: 08/27/25 06:11 Dose: 40 mg Polyethylene Glycol (Polyethylene (Miralax) 17 Gm Pack) 17 gm PO DAILY PRN PRN Reason: laxative effect Stop: 09/19/25 22:53 Potassium Chloride (Potassium Chloride 10 Meq Tabcr) 20 meq PO BID ALYSA Stop: 09/20/25 08:59 Last Admin: 08/27/25 08:21 Dose: 20 meq Torsemide (Torsemide 20 Mg Tab) 20 mg PO QAM ALYSA Stop: 09/20/25 08:59 Last Admin: 08/27/25 08:22 Dose: 20 mg Tramadol HCl (Tramadol Hcl 50 Mg Tablet) 25 mg PO Q8H PRN PRN Reason: Severe Pain (Scale 7, 8, 9,10) Stop: 09/19/25 23:21 Last Admin: 08/22/25 14:55 Dose: 25 mg (1) Fall Encounter type: initial encounter Qualified Code(s): W19.XXXA - Unspecified fall, initial encounter
[2025-08-28 07:05] VITALS: BP 125/72; PULSE 52; TEMP 97.3; O2SAT 96
[2025-08-28 07:48] LABS: Hematocrit (blood only) 35.4 % (37.0-47.0); Hemoglobin 11.5 g/dl (12.0-16.0); Mean Corpuscular Hemoglobin 30.0 pg (25.0-34.0); Mean Corpuscular Volume 92.4 fL (80.0-100.0); Platelet Count 221 K/uL (130-400); RDW Standard Deviation 47.8 fL (36.4-46.3); Red Blood Count 3.83 M/uL (4.20-5.40); White Blood Count 5.22 K/ul (4.8-10.8)
[2025-08-28 08:07] LABS: Anion Gap 7.0 (3-11); Blood Urea Nitrogen 38.0 mg/dl (6-23); Calcium 9.2 mg/dl (8.6-10.3); Carbon Dioxide 27.0 mmol/L (21-32); Chloride 103.0 mmol/L (98-107); Creatinine Clr Calc Pharmacy 40.2 ml/min; Glucose 119.0 mg/dl (70-99(Fasting)); Potassium 4.1 mmol/L (3.5-5.1); Sodium 137.0 mmol/L (136-145)
--- NOTE | 2025-08-28 12:11 | CT Scan Report ---
CT knee RT wo con CLINICAL HISTORY: unstable knee with ambulation/ hx trauma COMPARISON STUDY: X-ray of 08/20/2025 FINDINGS: There are atherosclerotic calcifications. No fracture or dislocation. There is osteoarthrit is with severe medial compartment narrowing and tricompartmental osteophytosis. There is a trace join t effusion. No soft tissue hematoma. No evidence of osteomyelitis. IMPRESSION: 1. No fracture seen. 2. Osteoarthritis. ACT 112: Negative or not required by law. Electronically signed by: Jake Pink M.D. 08/28/2025 12:09 PM
--- NOTE | 2025-08-28 12:52 | Discharge Summary ---
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 Mechanical fall Right knee pain Multiple falls in the last year resulting in admission Imaging negative for fracture/acute traumatic injury R knee pain improving with topical Voltaren application CT right knee obtained today due to pain with ambulation and revealed no fracture or dislocation, osteoarthritis with severe compartment narrowing, trace joint effusion PT/OT recommending SNF -> dc to [facility] today Speech difficulties History of CVA Patient reports ongoing difficulty with expressive dysphagia since her stroke that waxes and wanes as medical and psychological status changes Communicates with direct speaking, circumlocution, phonemic cueing/spelling, gesturing, and writing Had two episodes during hospitalization where she was not able to speak/communicate adequately Head CT negative x2, head and neck CTA unremarkable, brain MRI negative to r/o acute stroke EPIDEMIOLOGY INVESTIGATOR evaluated patient and recommends: * IDDSI 7 Easy to Chew Carb Consistent DMII diet * Aspiration and reflux precautions * Mouth Care 2x/day * EPIDEMIOLOGY INVESTIGATOR f/u in outpatient setting PAF No longer on anticoagulation 2/2 history of traumatic subdural hematoma in September 2024 and recurrent falls Toprol-XL dose decreased from 50mg to 25mg due to persistent bradycardia Chronic HFpEF TTE, 03/2025: LVEF = 60-65%, no regional wall motion abnormalities, moderately dilated LA, moderate to severe posterior mitral annular calcification, mild MR, mild TR, moderate pulmonary HTN with pulmonary artery systolic pressure of 56mmHg and grade II DD Remained euvolemic during stay Continue torsemide with potassium supplementation HTN Continue losartan CAD with remote PCI and LAD stent placement in 1999 Continue baby aspirin and atorvastatin Hypothyroidism Continue levothyroxine DM2 Diet-controlled A1C 5.1% as of 09/2024 Asthma Continue inhalers Stress urinary incontinence Continue oxybutynin GERD Continue pantoprazole Patient seen in collaboration with Dr. Quiroz. Please see addendum. Notes For Next Care Provider 85 year old female with significant PMH who was admitted at [facility] from 08/20- 08/28/2025 with right knee pain after a mechanical fall at home. Fortunately, she sustained no injuries. She has ongoing right knee pain that has been improving with voltaren. PT and OT recommended rehab and she was accepted at [facility] and discharged for continued rehab. Medication Changes From Visit Metoprolol succinate decreased from 50mg to 25mg due to bradycardia Admission HPI Per Admitting Provider Ms. Palacios is an 85-year-old female with past medical history of type 2 diabetes mellitus, prior CVA with left sided weakness,hypothyroidism, hyperlipidemia, DEMARIO, mild persistent asthma, paroxysmal A-fib, CAD, hypertension, GERD, stage III CKD, degenerative disks disease, prior subdural hematoma, SIADH/chronic hyponatremia, mood disorder presented to [facility] ED due to right knee pain after mechanical fall. Patient reports she was at baseline. She wears a brace on her left ankle due to a fall she sustained earlier in the year. The velcro on the brace was caught on the carpet ultimately resulting in the patient losing balance and subsequently falling onto her right knee. She reports the pain was so notable she was unable to help herself up until her significant other came home to assist her. She lives with her SO, and her daughter in law manages her medications. She denies any urine issues, bowel changes, chest pain, dizziness/syncope, or other acute changes. She walks with a walker at baseline. She has been much slower in her ambulation since her fall in march resulting in possible avulsion injury. She also has residual left sided weakness due to stroke in 2023, but this is stable per patient reports. In the ED, vitals were notable for BP of 16--170s. HR of mid 50s-60s and O2 sat of 100 on room air Imaging revealed left ankle soft tissue swelling, right knee chronic degenerative changes Labs noncontributory ED interventions: IV Tylenol Patient to be admitted to med/surg for further evaluation and management of right knee pain 2/2 mechanical fall with PT/OT evaluation planned Admission Exam Per Admitting Provider GENERAL APPEARANCE: AxOx4, generally well-appearing elderly female, no acute distress. HEENT: NC, AT. MMM. EOMI, clear conjunctiva, oropharynx clear. poor dentition NECK: Supple without lymphadenopathy. No stiffness or restricted ROM. HEART: Normal rate and regular rhythm, normal S1/S1, no m/r/g LUNGS: CTAB, moving air well. No crackles or wheezes are heard. ABDOMEN: Soft, nontender, nondistended with good bowel sounds heard. BACK: No CVAT, no obvious deformity. EXTREMITIES: Without cyanosis, clubbing. nontender swelling behing left lateral mallelous, discomfort noted with left foot dorsiflexion/plantarflexion; right knee with mild erythema on anteriormedial surface and associated tenderness to palpation, mild swelling appreciated. no tenderness in posterior fossa NEUROLOGICAL: Grossly nonfocal. Alert and oriented, moving all 4 extremities. CN not formally tested but appear grossly intact. Skin: Warm and dry without any rash. Discharge Exam General/Psych: WD/WN, sitting up in chair, NAD, conversing easily Head: normocephalic, atraumatic Eyes: normal inspection, PERRL, conjunctivae pink ENT: external ear and nose normal, oropharynx normal Neck: normal visual inspection, trachea midline Respiratory: normal respiratory effort, lungs clear to auscultation, no wheeze/rales/rhonchi, no accessory muscle use Cardiovascular: regular rate and rhythm, no murmur/rub/gallop, no JVD Extremities: no cyanosis or clubbing, normal peripheral pulses, no BLE edema Abdomen/GI: normal bowel sounds, soft, nontender Neurologic/MSK: A+Ox3, motor strength 5/5, moves all extremities, right knee swollen and tender on palpation Skin: no rashes, normal color, warm and dry Updated Medication List Medication Instructions Recorded Confirmed Type atorvastatin 20 mg tablet 20 mg PO HS 08/22/19 08/20/25 History montelukast 10 mg tablet 10 mg PO HS 08/22/19 08/20/25 History bimatoprost 0.01 % eye drops 1 drp OPB HS 05/08/22 08/20/25 History ([facility]) fluticasone 250 mcg-salmeterol 50 1 inh inhalation BID 10/23/23 08/20/25 History mcg/dose blistr powdr for inhalation ([facility]) oxybutynin chloride 10 mg 10 mg PO QAM 10/23/23 08/20/25 History tablet,extended release 24 hr [facility] 08/04/24 04/02/25 History Verio test strips) coenzyme Q10 100 mg capsule 100 mg PO DAILY 08/04/24 08/20/25 History (CoQ-10) lancets 30 gauge ([facility] 08/04/24 04/02/25 History Plus Lancet) magnesium oxide 400 mg (241.3 mg 400 mg PO DAILY 08/04/24 08/20/25 History magnesium) tablet aspirin 81 mg tablet,delayed 81 mg PO QAM #30 tabs 10/16/24 08/20/25 Rx release polyethylene glycol 3350 17 gram 17 g PO DAILY PRN laxative effect 10/16/24 08/20/25 Rx oral powder packet (Miralax) #30 ea pantoprazole 40 mg tablet,delayed 40 mg PO DAILYBB 12/28/24 08/20/25 History release albuterol sulfate 90 mcg/actuation 2 puff inhalation Q4H PRN SOB 04/01/25 08/20/25 History aerosol inhaler azelastine 137 mcg (0.1 %) nasal 2 spray intranasal QPM 04/01/25 08/20/25 History spray fluticasone propionate 50 2 spray intranasal QAM 04/01/25 08/20/25 History mcg/actuation nasal spray,suspension guaifenesin 600 mg tablet, 600 mg PO Q12H PRN Congestion 04/01/25 08/20/25 History extended release 12 hr (Mucinex) ketoconazole 2 % topical cream 1 applic topical DAILY PRN Rash 04/01/25 08/20/25 History levothyroxine 75 mcg tablet 75 mcg PO DAILYBB 08/20/25 08/20/25 History losartan 50 mg tablet 50 mg PO DAILY 08/20/25 08/20/25 History exutxaguzzgr-yzqoxsna-wlpbdc tablet 1 tab PO DAILY 08/20/25 08/20/25 History nystatin 100,000 unit/gram topical 1 applic topical BID PRN NEEDED 08/20/25 08/20/25 History cream potassium chloride 10 mEq 20 meq PO BID 08/20/25 08/20/25 History capsule,extended release torsemide 20 mg tablet 20 mg PO QAM 08/20/25 08/20/25 History vitamin B complex-vitamin C-folic 1 tab PO DAILY 08/20/25 08/20/25 History acid 1 mg tablet diclofenac sodium 1 % topical gel 2 g EXT Q8H #50 grams 08/28/25 Rx (Voltaren Arthritis Pain) metoprolol succinate 25 mg 25 mg PO QAM #1 tab 08/28/25 Rx tablet,extended release 24 hr Hospital Stay Data Consultations 08/20/25 22:23 ED Decision to Admit Stat 08/25/25 10:32 Consult Behavioral Health Liaison Routine Diagnostic Imagining Performed Ankle X-Ray 08/20/25 19:57 Exam(s): XR LEFT ANKLE, 3+ views, XR RIGHT ANKLE, 3+ views EXAM: XR Left Ankle Complete, 3 or More Views CLINICAL HISTORY: fall. TECHNIQUE: Frontal, lateral and oblique views of the left ankle. COMPARISON: CT left ankle 04/02/2025 FINDINGS: Bones/joints: Similar degenerative changes of the ankle. Prominent posterior and plantar calcaneal spurs. Incidental surgical hardware along the 1st metatarsal bone minimally included. No acute fracture. No dislocation. Soft tissues: Prominent soft tissue fullness overlying the lateral malleolus. No radiopaque foreign body. Vasculature: Regional arterial calcification. IMPRESSION: Prominent soft tissue fullness overlying the lateral malleolus. No radiopaque foreign body. No definite acute osseous abnormality. Electronically signed by: Shan Nugent MD 08/20/25 21:58 PM Knee X-Ray 08/20/25 19:57 Exam(s): XR RIGHT KNEE, 3 views EXAM: XR Right Knee, 3 Views CLINICAL HISTORY: fall onto right knee. TECHNIQUE: Three views of the right knee. COMPARISON: Right knee radiographs 04/01/2025 FINDINGS: Bones/joints: Moderately severe degenerative changes involving the patellofemoral compartment and medial compartment, stable. Mild degenerative changes involving the lateral compartment, stable. No acute osseous abnormality. No abnormal alignment. Soft tissues: No appreciable significant acute traumatic soft tissue abnormality. No radiopaque foreign body. No suprapatellar joint effusion. Vasculature: Incidental regional arterial calcification. IMPRESSION: Similar chronic degenerative changes involving the right knee. No radiographic evidence for acute traumatic injury or abnormal traumatic alignment. Electronically signed by: Shan Nugent MD 08/20/25 22:[address] 08/24/25 08:32 CT head/brain wo con CLINICAL HISTORY: Not acting like self, confusion. TECHNIQUE: Multiple axial CT images of the head were obtained without contrast. A dose lowering technique was utilized adhering to the principles of ALARA. CT DOSE: 625.8 mGy.cm COMPARISON: 04/01/2025 FINDINGS: There are stable mild chronic small vessel ischemic changes. No intracranial hemorrhage seen. No mass effect, midline shift, or hydrocephalus. No skull fracture seen. Visualized paranasal sinuses and mastoid air cells are clear. IMPRESSION: No acute findings. ACT 112: Negative or not required by law. The above report was generated using voice recognition software. It may contain grammatical, syntax or spelling errors. Electronically signed by: Jake Pink M.D. 08/24/2025 9:59 AM Brain MRI 08/24/25 12:28 MR brain wo con HISTORY: 85 years-old Female AMS acutely altered mental status COMPARISON: 04/22/2025 brain MRI, CTA head 08/24/2025 TECHNIQUE: Multiplanar multisequence MRI of the brain was obtained without IV contrast FINDINGS: No restricted diffusion to suggest an acute or subacute infarct. Motion degraded exam. Midline structures are unremarkable. Partially empty sella. No acute intracranial hemorrhage, midline shift, abnormal extra-axial collection, hydrocephalus or intra-axial mass. Cerebral venous sinuses and major arterial flow voids appear patent. Skull, orbits and soft tissues are unremarkable. Prior bilateral injury. Delusional changes with mild to moderate T2/FLAIR hyperintense foci throughout the white matter. IMPRESSION: 1. No acute intracranial abnormality, specifically there is no evidence of an acute infarct. 2. Involutional changes with chronic microvascular ischemic disease. ACT 112: Negative or not required by law. The above report was generated using voice recognition software. It may contain grammatical, syntax or spelling errors. Electronically signed by: Talib Morales M.D. 08/24/2025 3:35 PM Head CTA 08/24/25 12:28 CT angio head wo/w CLINICAL HISTORY: 85 years-old Female with AMS. Acutely altered mental status COMPARISON STUDY: Head CT of same day 40 5:00 AM, brain MRI 5/25, CTA head 02/08/2024 TECHNIQUE: Unenhanced axial CT scan of the brain is performed. Subsequently, following the IV administration of 120 cc of Optiray, CT angiogram of the brain was performed from the skull base to the vertex. Images are reviewed in the axial, sagittal, and coronal planes. 3-D MIPS images are created and assessed. IV contrast was administered without complication. All measurements were obtained according to NASCET criteria. A dose lowering technique was utilized adhering to the principles of ALARA. FINDINGS: CT BRAIN: There is no acute intracranial hemorrhage, midline shift, hydrocephalus, intracranial mass, territorial ischemia or abnormal extra-axial collections. No abnormal intra-axial or extra-axial enhancement. Involutional changes with chronic microvascular ischemic disease redemonstrated. Calcifications of the falx cerebri. Mastoid air cells and middle ear cavities are clear. No calvarial fracture. Paranasal sinuses are clear. CT ANGIOGRAM OF THE BRAIN: The imaged bilateral internal carotid arteries are patent. The bilateral anterior and middle cerebral arteries are also patent. The vertebrobasilar system and posterior cerebral arteries are widely patent. There is no aneurysm, high-grade stenosis, or proximal branch occlusion identified. Dural sinuses appear patent. IMPRESSION: 1. No acute intracranial abnormality. 2. Unremarkable CTA of the head. ACT 112: Negative or not required by law. The above report was generated using voice recognition software. It may contain grammatical, syntax or spelling errors. Electronically signed by: Talib Morales M.D. 08/24/2025 2:31 PM Neck CTA 08/24/25 12:28 CT ANGIOGRAM OF THE NECK CLINICAL HISTORY: Change in mental status. COMPARISON STUDY: CT angiogram of the neck dated 02/08/2024 TECHNIQUE: Following the IV administration of 120 of Optiray 320, CT angiogram of the neck was performed from the aortic arch to the skull base. Images are reviewed in the axial, sagittal, and coronal planes. 3-D MIPS images are created and assessed. IV contrast was administered without complication. All measurements were calculated based on NASCET criteria. A dose lowering technique was utilized adhering to the principles of ALARA. CT DOSE: 1352.96 mGy.cm FINDINGS: Thoracic aorta: Visualized portions of the thoracic aorta are normal in caliber. The aortic arch demonstrates standard 3-vessel anatomy. Right carotid arterial system: The right common carotid artery is widely patent, as are the right internal and external carotid arteries. Calcified plaque is noted in the carotid bulb. Left carotid arterial system: The left common carotid artery is widely patent, as are the left internal and external carotid arteries. Calcified plaque is seen in the carotid bulb. Vertebral arteries: The vertebral arteries are widely patent bilaterally noting left-sided dominance. Subclavian arteries: Widely patent bilaterally. Intracranial vasculature: The visualized intracranial vessels at the skull base are patent. Jugular veins: Patent bilaterally. Brain parenchyma: The visualized brain parenchyma the skull base is within normal limits. Lung apices: Partially visualized upper lobe lung parenchyma appears clear. Soft tissues: The visualized pharyngeal soft tissues are normal in appearance noting angiographic phase technique. The oropharyngeal airway appears widely patent. The salivary and thyroid glands are normal in appearance. No cervical lymphadenopathy is seen. Skeletal structures: The skeletal structures are osteopenic. The visualized calvarium at the skull base appears intact. The imaged cervical spine is maintained noting multilevel spondylosis. Sinuses and mastoids: The visualized paranasal sinuses are clear. The mastoid air cells are well pneumatized. IMPRESSION: Unremarkable CT angiogram of the neck. ACT 112: Negative or not required by law. Electronically signed by: Mark Solano M.D. 08/24/2025 2:30 PM Cervical Spine X-Ray 08/24/25 13:19 XR cervical spine 1V CLINICAL HISTORY: Clear for MRI COMPARISON STUDY: None FINDINGS: There are carotid bulb calcifications. No metallic senior medical transcriptionist or metallic foreign body seen in the neck. IMPRESSION: Cleared for MRI. ACT 112: Negative or not required by law. Electronically signed by: Jake Pink M.D. 08/24/2025 2:47 PM Chest X-Ray 08/24/25 13:19 XR chest 1V not portable CLINICAL HISTORY: Clear for MRI COMPARISON STUDY: 04/02/2025 FINDINGS: There are mitral valvular calcifications. There is stable cardiomegaly without pulmonary vascular congestion. No consolidation or pleural effusion. No pneumothorax. No metallic senior medical transcriptionist or metallic foreign body seen in the chest. Recent head CT and most recent abdominal CT were also reviewed. No contraindication to MR seen. IMPRESSION: Cleared for MRI. ACT 112: Negative or not required by law. Electronically signed by: Jake Pink M.D. 08/24/2025 2:45 PM KUB X-Ray 08/24/25 13:19 KUB HISTORY: Clear for MRI COMPARISON STUDY: 12/22/2023 FINDINGS: There is residual contrast in the urinary system. There is moderate retained stool. No bowel obstruction seen. There are a few pelvic surgical clips. No metallic foreign body or metallic senior medical transcriptionist seen otherwise. IMPRESSION: Cleared for MRI. ACT 112: Negative or not required by law. The above report was generated using voice recognition software. It may contain grammatical, syntax or spelling errors. Electronically signed by: Jake Pink M.D. 08/24/2025 2:[address] 08/25/25 20:19 Exam(s): CT HEAD Without Contrast EXAM: CT Head Without Intravenous Contrast CLINICAL HISTORY: Reason for exam: confusion/ speaking slowly. TECHNIQUE: Axial computed tomography images of the head/brain without intravenous contrast. CTDI is the 36.79 mGy and DLP is 624.41 mGy-cm. Automated exposure control was utilized for the study. A dose lowering technique was utilized adhering to the principles of ALARA. COMPARISON: 08/24/2025 FINDINGS: Brain: Mild cerebral atrophy and patchy periventricular white matter low densities consistent with chronic small vessel disease and/or senescent changes, unchanged. No acute large vessel infarct or intracranial hemorrhage is seen. Ventricles: Unremarkable. No ventriculomegaly. Bones/joints: Unremarkable. No acute fracture. Soft tissues: Unremarkable. Sinuses: Unremarkable as visualized. No acute sinusitis. Mastoid air cells: Unremarkable as visualized. No mastoid effusion. IMPRESSION: Mild cerebral atrophy and patchy periventricular white matter low densities consistent with chronic small vessel disease and/or senescent changes, unchanged. No acute large vessel infarct or intracranial hemorrhage is seen. Electronically signed by: Cb Mendez MD 08/25/25 23:[address] 08/28/25 10:52 CT knee RT wo con CLINICAL HISTORY: unstable knee with ambulation/ hx trauma COMPARISON STUDY: X-ray of 08/20/2025 FINDINGS: There are atherosclerotic calcifications. No fracture or dislocation. There is osteoarthritis with severe medial compartment narrowing and tricompartmental osteophytosis. There is a trace joint effusion. No soft tissue hematoma. No evidence of osteomyelitis. IMPRESSION: 1. No fracture seen. 2. Osteoarthritis. ACT 112: Negative or not required by law. Electronically signed by: Jake Pink M.D. 08/28/2025 12:09 PM Pending Results Patient Have Any Pending Studies at Discharge: No Discharge Instructions Given to Patient (Per Discharging Provider) You presented to the hospital after you fell at home. You had imaging studies done which fortunately showed no fractures or injuries. You are having pain in your right knee but additional imaging today showed osteoarthritis and you shou ld continue to use voltaren gel. You worked with physical and occupational therapy who recommended you go to a prison facility for continued rehab prior to returning home. You had ongoing difficulty with your expressive aphasia that you have been having a hard time with since your stroke. There was concern that you may have had another stroke so you had multiple CT scans of your head which showed no abnormalities. Your blood work was also unremarkable. You worked with speech therapy who recommended that you follow up with speech therapy at the prison facility. They also provided diet recommendations including easy to chew carb consistent diet where you alternate solids and liquids and take small bites and sips. You should be fully awake and upright while eating. MEDICATION CHANGES: None SUMMARY OF TEST RESULTS: Left and right ankle x-rays with no bone abnormality Right knee x-ray with chronic degenerative changes, no injury or abnormal alignment Right knee CT with osteoarthritis Head CT normal x2 Brain MRI normal, no stroke Head CT angiogram normal Neck CT angiogram normal Chest x-ray normal Abdomen x-ray with some retained stool, no obstruction PENDING TEST RESULTS: None RECOMMENDATIONS FOR FOLLOW-UP: Please follow up with your PCP after being in the hospital Please follow up with speech therapy outpatient OTHER INSTRUCTIONS: Seek medical attention if you have: * temperature above 101 * chest pain or trouble breathing * abdominal pain, nausea, vomiting * diarrhea, dark stools or bloody stools * any unanswered questions or concerns Call 911 if symptoms are severe. It has been a pleasure taking care of you. Please take care of yourself. If you have any questions regarding your recent hospitalization please contact [facility] and request Mitali Fish @ [phone]. Total Time Total Time Spent Total Time Spent (In Minutes): I spent a total of 35 minutes coordinating, documenting and providing care for this patient excluding time spent in the performance of separately billed services or time spent by another provider/QHP. Supervising Physician Co-Signing Physician Notes Patient comfortable; not in any distress. Plan to discharge to SNF today. I have reviewed the advanced practitioner's documentation, and I agree with, and take responsibility for the plan of care I spent a total of 20 minutes coordinating, documenting, and providing care for this patient excluding time spent in the performance of separately billed services. All of the aforementioned completed while collaborating with the a [facility] advanced practitioner for a full treatment plan
== END 2025-08-28 14:52 | DRG 92 ==
LOC: ED 19:22 → SUATTDRO 22:57 → INTOOBSV 22:57 → 3N 22:57

== ENCOUNTER 2025-09-25 22:18 | Inpatient (IN) ==
--- NOTE | 2025-09-25 22:48 | Emergency Department Note ---
Impression & Plan Acute alteration in mental status, Acute UTI, Elevated troponin admit to the [facility] ED Provider Note NAME: ERNIE WELLER AGE: 85 SEX: Female INFORMANT: Patient and the patient's son ED PROVIDER(S): Mirian Christianson DO CHIEF COMPLAINT: Difficulty with speech and right leg weakness PLAN: Disposition: Admit to the [facility] MEDICAL DECISION MAKING: This is an 85-year-old female patient with an extensive past medical history including a previous stroke who was just discharged from the hospital 2 days ago after suffering a fall and now presents with difficulty with speech since 9 AM this morning and weakness in the right lower extremity this evening. Patient's previous stroke left her with weakness in the left arm and left leg. upon arrival here in the emergency department, the patient seems to have completely normal speech and strength in the right leg. Laboratory studies revealed no significant anemia. White blood cell count was 12.1. Sodium was slightly low at 133. Glucose was 155. Patient's troponin was elevated at 21.4. Urinalysis revealed signs of infection. Patient underwent stroke workup and had CT scan of the brain, CT angiogram of the brain and neck which were all unremarkable and showed no new findings. Patient was medicated with IV Rocephin. I had a discussion with the patient's son at the bedside about the living situation at home as the patient lives with her significant other who has dementia. [facility] and they will evaluate for further inpatient care. During their evaluation of the patient, she seemed to have some episodes of aphasia again. Her symptoms are waxing and waning. Care/management discussed with: [facility] Triage Nursing notes: reviewed and agree with them. Vital Signs: reviewed and Unremarkable Additional History obtained from: the son who arrived at the bedside Chronic Medical/Social Conditions affecting care: previous urinary tract infections and CVA Prior/ Outside/ External records reviewed: I reviewed the inpatient records from last week Differential Diagnosis: recurrent CVA, UTI, dehydration, electrolyte abnormality, hypoglycemia Diagnostics, independently interpreted by me: ECG: normal sinus rhythm at a rate of [address] segment elevation or signs of ischemia. There is no ectopy. QTc was 420 ms. Cardiac Monitoring: Normal sinus rhythm at 78 Imaging studies: portable chest x-ray: cardiomegaly with no obvious pulmonary pathology as per my independent interpretation. CT scan of the brain: as per imbro CTA of the brain:as per imbro CTA of the neck: as per imbro HPI: 85 year old Female arrives for evaluation of Difficulty with speech and moving the right lower extremity. patient with an extensive past medical history including a previous stroke who was just discharged from the hospital 2 days ago after suffering a fall and now presents with difficulty with speech since 9 AM this morning and weakness in the right lower extremity this evening. Patient's previous stroke left her with weakness in the left arm and left leg. upon arrival here in the emergency department, the patient seems to have completely normal speech and strength in the right leg. PAST MEDICAL HISTORY: See Below, PAST SURGICAL HISTORY: See Below, SOCIAL HISTORY: See Below, HOME MEDICATIONS: See list ALLERGIES: see long list VITALS: See Below PHYSICAL EXAMINATION: HEENT: Head - normocephalic and atraumatic. Pupils are equal, round, and reactive to light. Extraocular eye muscles are intact and sclera are anicteric. Ears - bilaterally patent canals with noninjected tympanic membranes and no evidence of hemotympanum. Nose - moist nasal mucosa without discharge. Mouth - moist buccal mucosa. Oropharynx is nonerythematous and there is no tonsillar exudate or edema noted. Neck: Supple; no cervical lymphadenopathy or JVD Heart: Regular rate and rhythm. There is a normal S1 and S2 with no murmurs, clicks, or gallops appreciated. Lungs: Clear to auscultation bilaterally with no wheezes, rales, or rhonchi. Abdomen: Soft, completely nontender, nondistended, with good bowel sounds. There are no palpable pulsatile masses or hepatosplenomegaly. There is no guarding, rigidity, or rebound noted. Extremities: No evidence of cyanosis, clubbing, or edema. There are easily palpable peripheral pulses. Neuro:The patient is awake and alert, oriented to person and place. Patient has weakness in her left arm and left leg which is residual from her previous stroke. Her speech seems to be normal at this time. Right lower extremity has normal muscle strength. She is easily able to follow commands. Emergency department treatment: monitoring and evaluation advisor, IV Rocephin Emergency Department course: The patient was evaluated in room B-6. a complete history and physical was performed. Order was placed for continuous cardiac monitoring. The patient was In a normal sinus rhythm at a rate of 78. Twelve- lead EKG was obtained. Stroke protocol was performed. Patient went for CT scan of the brain and CT angiograms. Patient was catheterized for urine specimen. It appears that patient's mental status remained fairly stable throughout my evaluation of her. She was given a dose of IV Rocephin for the urine. I discussed the case with the patient's son who is at the bedside. He voiced concerns about the patient caring for herself and her significant other who has dementia. Patient has an elevated troponin. I discussed the case with the [facility] to evaluate for inpatient care. During his evaluation, the patient seemed to be having increased speech difficulty again. Past Med/Surg History Problem List Elevated troponin (Acute) Acute UTI (Acute) Acute alteration in mental status (Acute) Acute ischemic stroke Stroke-like symptoms Leukocytosis (Acute) Right shoulder pain (Acute) Ambulatory dysfunction (Acute) Weakness (Acute) Confusion (Acute) Right knee pain Difficulty speaking Dyslipidemia, goal LDL below 70 ASCVD (arteriosclerotic cardiovascular disease) History of cardioembolic cerebrovascular accident (CVA) (Acute) CHI (closed head injury) (Acute) Ambulatory dysfunction (Acute) Fall (Acute) History of CVA (cerebrovascular accident) Diabetes mellitus type 2, diet-controlled Acute on chronic heart failure with preserved ejection fraction CHF (congestive heart failure) Confusion (Acute) Weakness (Acute) Hypertension (Acute) Hypertensive urgency Cervical strain, acute (Acute) Head injury (Acute) Drug-induced sinus bradycardia Hiatal hernia with GERD Vasovagal syncope Acute hypoxemic respiratory failure Hypomagnesemia (Acute) Vomiting (Acute) Chest pain (Acute) Syncope (Acute) Hypomagnesemia (Acute) Stroke-like symptoms (Acute) Nausea & vomiting (Acute) Arthralgia Embolic stroke Elevated troponin Near syncope Ambulatory dysfunction (Acute) Chronic pain in left foot (Acute) Hypomagnesemia (Acute) Generalized weakness (Acute) Osteoarthritis of ankle, left HTN (hypertension) Left ankle swelling (Acute) Hypomagnesemia (Acute) Syncope and collapse (Acute) Right rotator cuff tear Right knee DJD Hypokalemia CAD (coronary artery disease) (Chronic) stent in 1999 Anemia (Acute) Postoperative bleeding from mouth (Acute) Orthostatic syncope (Acute) Chronic anticoagulation (Acute) Near syncope DVT prophylaxis Postoperative bleeding from mouth History of rotator cuff surgery (Chronic) History of cataract extraction (Chronic) T2DM (type 2 diabetes mellitus) (Chronic) HTN (hypertension) (Chronic) HLD (hyperlipidemia) (Chronic) PAF (paroxysmal atrial fibrillation) (Chronic) DEMARIO (obstructive sleep apnea) (Chronic) Asthma (Chronic) CKD (chronic kidney disease) stage 3, GFR 30-59 ml/min (Chronic) Primary open angle glaucoma (Chronic) History of arthroscopic knee surgery (Chronic) History of tonsillectomy (Chronic) GERD (gastroesophageal reflux disease) (Chronic) History of appendectomy (Chronic) Hypothyroidism (Chronic) History of placement of stent in LAD coronary artery (Chronic) Sleep apnea (Chronic) Stented coronary artery (Chronic) Medical History Fall Hyponatremia Family History Father CHF (congestive heart failure) Mother Cancer Social History Smoking Status: Never smoker Second Hand Exposure: No; Do You Dip or Chew Tobacco: No; Hx Alcohol Use: No Hx Substance Use: No Preferred Language: Uzbek Communication Ability: Impaired Hammer 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: No Beliefs That Will Affect Care: None marital status: Life Partner Current Living Situation: Significant Other Current Living Situation Comment: s/o Feels Safe at Home: Yes Safety Concerns: Feels Safe At This Time Assistive Devices: Walker and Wheelchair Allergies Allergies Allergy/AdvReac Type Severity Reaction Status Date / Time paroxetine Allergy Severe ANAPHYLAXIS Verified 08/20/25 21:05 mold Allergy Intermediate asthma Verified 08/20/25 21:05 symptoms pollen extracts Allergy Intermediate asthma Verified 08/20/25 21:05 symptoms Penicillins Allergy Mild BLISTERED Verified 08/20/25 21:05 HANDS grapefruit Allergy Unknown POSITIVE Verified 08/20/25 21:05 ALLERGY TEST/BRONCHITIS vasquez AdvReac Intermediate gas and Verified 08/20/25 21:05 bloating with consuption of green or kidneys beans broccoli AdvReac Intermediate GAS Verified 08/20/25 21:05 cabbage AdvReac Intermediate "Brassica Verified 08/20/25 22:44 oleracea" -- gas/bloating cauliflower AdvReac Intermediate GAS Verified 08/20/25 21:05 crab AdvReac Intermediate diarrhea Verified 08/20/25 21:05 green vasquez AdvReac Intermediate GAS/BLOATIN Verified 08/20/25 21:05 G peanut AdvReac Intermediate GAS/BLOATIN Verified 08/20/25 21:05 G peas AdvReac Intermediate GAS/BLOATIN Verified 08/20/25 21:05 G orange AdvReac Unknown POSITIVE Verified 08/20/25 21:05 ALLERGY TEST/BRONCHITIS Home Meds Home Medications Medication Instructions Recorded Confirmed albuterol sulfate 90 mcg/actuation 2 inh inhalation Q4H PRN Shortness 09/26/25 09/26/25 breath activated powder inhaler Of Breath Or Wheezing aspirin 81 mg tablet,delayed 81 mg PO DAILY 09/26/25 09/26/25 release atorvastatin 20 mg tablet 20 mg PO DAILY 09/26/25 09/26/25 azelastine 137 mcg (0.1 %) nasal 2 spray intranasal QPM 09/26/25 09/26/25 spray bimatoprost 0.01 % eye drops 1 drp OPB HS 09/26/25 09/26/25 (Lumigan) coenzyme Q10 100 mg capsule 100 mg PO DAILY 09/26/25 09/26/25 diclofenac sodium 1 % topical gel 2 g topical TID PRN Pain 09/26/25 09/26/25 (Voltaren Arthritis Pain) fluticasone 250 mcg-salmeterol 50 1 inh inhalation BID 09/26/25 09/26/25 mcg/dose blistr powdr for inhalation (Wixela Inhub) fluticasone propionate 50 2 spray intranasal DAILY 09/26/25 09/26/25 mcg/actuation nasal spray,suspension guaifenesin 600 mg tablet, 600 mg PO Q12H PRN Congestion 09/26/25 09/26/25 extended release 12 hr (Mucinex) ketoconazole 2 % topical cream 1 applic topical DAILY PRN Rash 09/26/25 09/26/25 levothyroxine 75 mcg tablet 75 mcg PO DAILY 09/26/25 09/26/25 losartan 50 mg tablet 50 mg PO DAILY 09/26/25 09/26/25 magnesium oxide 400 mg (241.3 mg 400 mg PO DAILY 09/26/25 09/26/25 magnesium) tablet metoprolol succinate 25 mg 25 mg PO DAILY 09/26/25 09/26/25 tablet,extended release 24 hr montelukast 10 mg tablet 10 mg PO DAILY 09/26/25 09/26/25 multivitamin with minerals 1 tab PO DAILY 09/26/25 09/26/25 nystatin 100,000 unit/gram topical 1 applic topical BID PRN Rash 09/26/25 09/26/25 cream oxybutynin chloride 10 mg 10 mg PO DAILY 09/26/25 09/26/25 tablet,extended release 24 hr pantoprazole 40 mg tablet,delayed 40 mg PO DAILY 09/26/25 09/26/25 release polyethylene glycol 3350 17 gram 17 g PO DAILY PRN Constipation 09/26/25 09/26/25 oral powder packet potassium chloride 20 mEq 20 meq PO BID 09/26/25 09/26/25 tablet,extended release(part/cryst) torsemide 20 mg tablet 20 mg PO DAILY 09/26/25 09/26/25 vitamin B complex-vitamin C-folic 1 tab PO DAILY 09/26/25 09/26/25 acid 1 mg tablet Results & Data (ED) Vital Signs Vital Signs - 24 hr 09/25/25 22:26 09/25/25 22:28 09/25/25 23:03 Temperature 37.2 C Temperature Source Oral Pulse Rate 77 78 77 Pulse Rate [Finger] Pulse Rate from SpO2 Sensor Pulse Rhythm [Finger] Pulse Strength [Finger] Respiratory Rate 16 18 Respiratory Effort / Characteristics Respiratory Depth Respiratory Pattern Blood Pressure 153/66 H Blood Pressure [Right Arm] Blood Pressure Mean 95 Blood Pressure Mean [Right Arm] Blood Pressure Position [Right Arm] Pulse Oximetry 95 93 Oxygen Delivery Method Room Air Room Air Sepsis Recent Fever Within 48 Hours No Sepsis New/Unexplained Change in Mental Status No Sepsis Action Taken by Nursing No Action Required 09/26/25 00:16 09/26/25 00:25 09/26/25 00:25 Temperature Temperature Source Pulse Rate 80 Pulse Rate [Finger] 84 80 Pulse Rate from SpO2 Sensor Pulse Rhythm [Finger] Regular Regular Pulse Strength [Finger] Normal Respiratory Rate 16 17 17 Respiratory Effort / Characteristics Non-Labored Spontaneous Non-Labored Spontaneous Respiratory Depth Normal Normal Respiratory Pattern Regular Regular Blood Pressure Blood Pressure [Right Arm] 140/106 H 140/106 H Blood Pressure Mean Blood Pressure Mean [Right Arm] 117 117 Blood Pressure Position [Right Arm] Lying Pulse Oximetry 95 94 94 Oxygen Delivery Method Room Air Room Air Room Air Sepsis Recent Fever Within 48 Hours Sepsis New/Unexplained Change in Mental Status Sepsis Action Taken by Nursing 09/26/25 00:30 09/26/25 01:00 09/26/25 01:00 Temperature Temperature Source Pulse Rate 76 73 Pulse Rate [Finger] 71 Pulse Rate from SpO2 Sensor 73 Pulse Rhythm [Finger] Pulse Strength [Finger] Respiratory Rate 20 20 17 Respiratory Effort / Characteristics Non-Labored Spontaneous Respiratory Depth Normal Respiratory Pattern Regular Blood Pressure 150/66 H 141/66 H Blood Pressure [Right Arm] 141/66 H Blood Pressure Mean 112 84 Blood Pressure Mean [Right Arm] 91 Blood Pressure Position [Right Arm] Pulse Oximetry 94 95 93 Oxygen Delivery Method Room Air Room Air Room Air Sepsis Recent Fever Within 48 Hours Sepsis New/Unexplained Change in Mental Status Sepsis Action Taken by Nursing 09/26/25 01:30 09/26/25 02:00 09/26/25 02:00 Temperature Temperature Source Pulse Rate 78 80 Pulse Rate [Finger] 89 Pulse Rate from SpO2 Sensor 78 80 Pulse Rhythm [Finger] Regular Pulse Strength [Finger] Respiratory Rate 17 19 19 Respiratory Effort / Characteristics Non-Labored Spontaneous Respiratory Depth Normal Respiratory Pattern Regular Blood Pressure 142/59 H 144/58 H Blood Pressure [Right Arm] 144/58 H Blood Pressure Mean 104 86 Blood Pressure Mean [Right Arm] 86 Blood Pressure Position [Right Arm] Pulse Oximetry 94 96 94 Oxygen Delivery Method Room Air Room Air Room Air Sepsis Recent Fever Within 48 Hours Sepsis New/Unexplained Change in Mental Status Sepsis Action Taken by Nursing 09/26/25 02:17 09/26/25 02:31 Temperature Temperature Source Pulse Rate 83 83 Pulse Rate [Finger] Pulse Rate from SpO2 Sensor 83 Pulse Rhythm [Finger] Pulse Strength [Finger] Respiratory Rate 18 Respiratory Effort / Characteristics Respiratory Depth Respiratory Pattern Blood Pressure 159/46 H Blood Pressure [Right Arm] Blood Pressure Mean 77 Blood Pressure Mean [Right Arm] Blood Pressure Position [Right Arm] Pulse Oximetry 95 Oxygen Delivery Method Room Air Sepsis Recent Fever Within 48 Hours Sepsis New/Unexplained Change in Mental Status Sepsis Action Taken by Nursing Laboratory Data 09/25/25 23:00 09/25/25 23:09 Lab Results 09/25/25 09/25/25 09/25/25 Range/Units 22:50 23:00 23:09 WBC 12.16 H (4.8-10.8) K/ul RBC 3.91 L (4.20-5.40) M/uL Hgb 11.6 L (12.0-16.0) g/dl Hct 35.9 L (37.0-47.0) % MCV 91.8 (80.0-100.0) fL MCH 29.7 (25.0-34.0) pg MCHC 32.3 (32.0-36.0) g/dL RDW Std Deviation 47.5 H (36.4-46.3) fL RDW Coeff of [place] 14.0 (11.5-14.5) % Plt Count 273 (130-400) K/uL MPV 10.5 (9.4-12.4) fL Immature Gran % (Auto) 0.5 % Neut % (Auto) 76.9 % Lymph % (Auto) 8.6 % [place] % (Auto) 13.6 % Eos % (Auto) 0.2 % Baso % (Auto) 0.2 % Neut # (Auto) 9.35 H (1.40-6.50) K/uL Lymph # (Auto) 1.05 L (1.20-3.40) K/uL [place] # (Auto) 1.65 H (0.11-0.59) K/uL Eos # (Auto) 0.03 (0.00-0.50) K/uL Baso # (Auto) 0.02 (0.00-0.20) K/uL Immature Gran # (Auto) 0.06 (0.01-0.20) K/uL Sodium 133 L (136-145) mmol/L Potassium 4.1 (3.5-5.1) mmol/L Chloride 99 (98-107) mmol/L Carbon Dioxide 28 (21-32) mmol/L Anion Gap 6 (3-11) BUN 21 (6-23) mg/dl Creatinine 0.99 (0.6-1.2) mg/dl Est Cr Clr Drug Dosing 38.4 ml/min eGFR 55.53 BUN/Creatinine Ratio 21.2 H (10-20) Glucose 155 H (70-99(Fasting)) mg/dl Calcium 9.4 (8.6-10.3) mg/dl Magnesium 1.9 (1.7-2.4) mg/dl Total Bilirubin 0.3 (0.2-1.0) mg/dl AST 15 (13-39) U/L ALT 13 (7-52) U/L Alkaline Phosphatase 73 (34-104) U/L Troponin I High Sens 21.4 H (0-14) pg/ml Total Protein 7.3 (6.0-8.3) gm/dl Albumin 3.5 (3.4-5.0) gm/dl Globulin 3.8 (2.5-4.0) gm/dl Albumin/Globulin Ratio 0.9 (0.9-2) TSH 0.587 (0.300-4.500) uIu/ml Urine Color Dark Yellow Urine Appearance Cloudy A (Clear) Urine pH 6.0 (4.5-7.5) Ur Specific [place] 1.012 (1.000-1.030) Urine Protein Trace H (Negative) Urine Glucose (UA) Negative (Negative) Urine Ketones Negative (Negative) Urine Blood Trace H (Negative) Urine Nitrite Positive A (Negative) Urine Bilirubin Negative (Negative) Urine Urobilinogen Negative (Negative) Ur Leukocyte Esterase 3+ H (Negative) Urine WBC (Auto) >50 H (0-5) /hpf Urine RBC (Auto) 0-2 (0-2) /hpf U Hyaline Cast (Auto) 3-5 H (0-2) /lpf U Epithel Cells (Auto) 0-2 (0-2) /hpf Urine Bacteria (Auto) 4+ H (None Seen) Urine Comment 09/26/25 Range/Units 01:48 WBC (4.8-10.8) K/ul RBC (4.20-5.40) M/uL Hgb (12.0-16.0) g/dl Hct (37.0-47.0) % MCV (80.0-100.0) fL MCH (25.0-34.0) pg MCHC (32.0-36.0) g/dL RDW Std Deviation (36.4-46.3) fL RDW Coeff of [place] (11.5-14.5) % Plt Count (130-400) K/uL MPV (9.4-12.4) fL Immature Gran % (Auto) % Neut % (Auto) % Lymph % (Auto) % [place] % (Auto) % Eos % (Auto) % Baso % (Auto) % Neut # (Auto) (1.40-6.50) K/uL Lymph # (Auto) (1.20-3.40) K/uL [place] # (Auto) (0.11-0.59) K/uL Eos # (Auto) (0.00-0.50) K/uL Baso # (Auto) (0.00-0.20) K/uL Immature Gran # (Auto) (0.01-0.20) K/uL Sodium (136-145) mmol/L Potassium (3.5-5.1) mmol/L Chloride (98-107) mmol/L Carbon Dioxide (21-32) mmol/L Anion Gap (3-11) BUN (6-23) mg/dl Creatinine (0.6-1.2) mg/dl Est Cr Clr Drug Dosing ml/min eGFR BUN/Creatinine Ratio (10-20) Glucose (70-99(Fasting)) mg/dl Calcium (8.6-10.3) mg/dl Magnesium (1.7-2.4) mg/dl Total Bilirubin (0.2-1.0) mg/dl AST (13-39) U/L ALT (7-52) U/L Alkaline Phosphatase (34-104) U/L Troponin I High Sens 34.4 H D (0-14) pg/ml Total Protein (6.0-8.3) gm/dl Albumin (3.4-5.0) gm/dl Globulin (2.5-4.0) gm/dl Albumin/Globulin Ratio (0.9-2) TSH (0.300-4.500) uIu/ml Urine Color Urine Appearance (Clear) Urine pH (4.5-7.5) Ur Specific [place] (1.000-1.030) Urine Protein (Negative) Urine Glucose (UA) (Negative) Urine Ketones (Negative) Urine Blood (Negative) Urine Nitrite (Negative) Urine Bilirubin (Negative) Urine Urobilinogen (Negative) Ur Leukocyte Esterase (Negative) Urine WBC (Auto) (0-5) /hpf Urine RBC (Auto) (0-2) /hpf U Hyaline Cast (Auto) (0-2) /lpf U Epithel Cells (Auto) (0-2) /hpf Urine Bacteria (Auto) (None Seen) Urine Comment Administered Medications Aspirin (Aspirin 81 Mg Ectab) 81 mg PO DAILY [facility] Stop: 10/26/25 08:59 Last Admin: 09/26/25 08:41 Dose: 81 mg Documented By: OS Atorvastatin Calcium (Atorvastatin 40 Mg Tab) 80 mg PO QAM [facility] Stop: 10/26/25 08:59 Last Admin: 09/26/25 08:40 Dose: 80 mg Documented By: OS Clopidogrel Bisulfate (Clopidogrel Bisulfate 75 Mg Tab) 75 mg PO QAM [facility] Stop: 10/26/25 08:59 Last Admin: 09/26/25 08:41 Dose: 75 mg Documented By: OS Fluticasone Propionate (Fluticasone Propionate Na Spr 16 Gm Btl) 2 sprays NA DAILY [facility] Stop: 10/26/25 08:59 Last Admin: 09/26/25 08:42 Dose: 2 sprays Documented By: OS Fluticasone/Vilanterol (Fluticasone/Vilanterol 200/25mcg 14 Puffs/Inhaler) 1 puffs INH DAILY [facility] Stop: 10/26/25 08:59 Last Admin: 09/26/25 08:42 Dose: 1 puffs Documented By: OS Sodium Chloride (Nss) 1,000 mls @ 80 mls/hr IV .[id number] [facility] Stop: 09/29/25 05:25 Last Admin: 09/26/25 06:26 Dose: 80 mls/hr Documented By: CATERINA Levothyroxine Sodium (Levothyroxine Sodium 75 Mcg Tablet) 75 mcg PO DAILYBB [facility] Stop: 10/26/25 06:29 Last Admin: 09/26/25 06:43 Dose: Not Given Documented By: CATERINA Magnesium Oxide (Magnesium Oxide 400 Mg Tab) 400 mg PO DAILY [facility] Stop: 10/26/25 08:59 Last Admin: 09/26/25 08:40 Dose: 400 mg Documented By: OS Metoprolol Succinate (Metoprolol Succ 25mg Ext Rel Tab) 25 mg PO DAILY [facility] Stop: 10/26/25 08:59 Last Admin: 09/26/25 08:40 Dose: 25 mg Documented By: OS Montelukast Sodium (Montelukast Sodium 10 Mg Tablet) 10 mg PO DAILY [facility] Stop: 10/26/25 08:59 Last Admin: 09/26/25 08:40 Dose: 10 mg Documented By: OS Multivitamins/Minerals (Cerovite Adv Formula Tab) 1 tab PO DAILY [facility] Stop: 10/26/25 08:59 Last Admin: 09/26/25 08:40 Dose: 1 tab Documented By: OS Oxybutynin Chloride (Oxybutynin Chloride Xl 5 Mg Tabcr) 10 mg PO DAILY [facility] Stop: 10/26/25 08:59 Last Admin: 09/26/25 08:41 Dose: 10 mg Documented By: OS Pantoprazole Sodium (Pantoprazole 40 Mg Tab) 40 mg PO DAILY [facility] Stop: 10/26/25 08:59 Last Admin: 09/26/25 08:41 Dose: 40 mg Documented By: OS Potassium Chloride (Potassium Chloride Crtab 20 Meq Tabcr) 20 meq PO BID [facility] Stop: 10/26/25 08:59 Last Admin: 09/26/25 09:55 Dose: 20 meq Documented By: OS Torsemide (Torsemide 20 Mg Tab) 20 mg PO DAILY [facility] Stop: 10/26/25 08:59 Last Admin: 09/26/25 08:41 Dose: 20 mg Documented By: OS Vitamin B Complex (Vitamin B Complex Tab) 1 tab PO DAILY [facility] Stop: 10/26/25 08:59 Last Admin: 09/26/25 08:40 Dose: 1 tab Documented By: OS Discontinued Medications Apixaban (Apixaban 5 Mg Tablet) 5 mg PO ONE ONE Stop: 09/26/25 13:22 Last Admin: 09/26/25 13:42 Dose: 5 mg Documented By: OS Gadobutrol (Gadobutrol 65ml Vial) 7.5 ml IV ONCE ONE Stop: 09/26/25 09:29 Last Admin: 09/26/25 09:28 Dose: 7.5 ml Documented By: DLS Ceftriaxone Sodium (Rocephin) 2,000 mg in 50 mls @ 100 mls/hr IV NOW STA Stop: 09/26/25 01:26 Last Infusion: 09/26/25 02:30 Dose: Infused Documented By: Admin: 09/26/25 01:55 Dose: 100 mls/hr Documented By: ARSLANS Ioversol (Optiray 320 125ml) 117 ml IV ONCE ONE Stop: 09/26/25 00:06 Last Admin: 09/26/25 00:07 Dose: 117 ml Documented By: ROBBIE Discharge Plan Visit Data Chief Complaint: Neuro Symptoms/Deficit Stated Complaint: ASPHAGIA SINCE 0900 ED Provider: Mirian Christianson Discharge Problem: Acute alteration in mental status, Acute UTI, Elevated troponin Patient Disposition: Admitted As Inpatient Condition: Serious Discharge Instructions Interventions: ED Discharge Assessment Last Done: 09/26/25 04:22
[2025-09-25 23:25] LABS: Hematocrit (blood only) 35.9 % (37.0-47.0); Hemoglobin 11.6 g/dl (12.0-16.0); Immature Granulocytes # (auto) 0.06 K/uL (0.01-0.20); Immature Granulocytes % (auto) 0.5 %; Mean Corpuscular Hemoglobin 29.7 pg (25.0-34.0); Mean Corpuscular Volume 91.8 fL (80.0-100.0); Platelet Count 273 K/uL (130-400); RDW Standard Deviation 47.5 fL (36.4-46.3); Red Blood Count 3.91 M/uL (4.20-5.40); White Blood Count 12.16 K/ul (4.8-10.8)
[2025-09-25 23:26] LABS: Appearance Urine Cloudy (Clear); Bacteria Urine Automated 4+ (None Seen); Epithelial Cell Urine Auto 0-2 /hpf (0-2); Glucose Urine UA Negative (Negative); RBC Urine Automated 0-2 /hpf (0-2); WBC Urine Automated >50 /hpf (0-5)
[2025-09-25 23:44] LABS: Alanine Aminotransferase 13.0 U/L (7-52); Albumin Globulin Ratio 0.9 (0.9-2); Albumin Level 3.5 gm/dl (3.4-5.0); Alkaline Phosphatase 73.0 U/L (34-104); Anion Gap 6.0 (3-11); Bilirubin,Total 0.3 mg/dl (0.2-1.0); Blood Urea Nitrogen 21.0 mg/dl (6-23); Calcium 9.4 mg/dl (8.6-10.3); Carbon Dioxide 28.0 mmol/L (21-32); Chloride 99.0 mmol/L (98-107); Creatinine Clr Calc Pharmacy 38.4 ml/min; Globulin 3.8 gm/dl (2.5-4.0); Glucose 155.0 mg/dl (70-99(Fasting)); Magnesium 1.9 mg/dl (1.7-2.4); Potassium 4.1 mmol/L (3.5-5.1); Sodium 133.0 mmol/L (136-145); Total Protein 7.3 gm/dl (6.0-8.3)
[2025-09-26 00:03] LABS: Thyroid Stimulating Hormone 0.587 uIu/ml (0.300-4.500)
--- NOTE | 2025-09-26 00:06 | XRay Report ---
Exam(s): XR CXR 1 VIEW EXAM: XR Chest, 1 View CLINICAL HISTORY: Reason for exam: weakness. TECHNIQUE: Frontal view of the chest. COMPARISON: 09/18/2025 FINDINGS: Lungs: Unremarkable. No consolidation. Pleural space: Unremarkable. No pneumothorax. Heart: Unremarkable. No cardiomegaly. Mediastinum: Unremarkable. Normal mediastinal contour. Bones/joints: Unremarkable. No acute fracture. IMPRESSION: Normal chest x-ray. Electronically signed by: Bowen Mendes MD 09/26/25 00:05 AM
[2025-09-26] MEDS: OPTIRAY 320 125ml IV ONE (00:07)
--- NOTE | 2025-09-26 00:59 | CT Scan Report ---
EXAM: CT angio neck with con CLINICAL HISTORY: neuro deficit, acute stroke suspected TECHNIQUE: Contrast-enhanced thin-slice CT angiography scan of the carotid vessels was performed with intravenous contrast. Angiographic images were processed, and 3D MIP images were acquired for interpretation. Contiguous axial images were obtained. Reformatted coronal and sagittal images were also reviewed. If intravenous contrast material had not been administered, the likelihood of detecting abnormalities relevant to the patient's condition would have been substantially decreased. The CT scan was performed according to ALARA (as low as reasonably achievable) principles. 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 The common carotid artery, carotid bulb, internal carotid artery, and origin of the external carotid artery are well opacified. The vertebral arteries are well opacified. The jugular veins are well opacified. The included lung apices are grossly unremarkable. The thyroid gland appears unremarkable. IMPRESSION: No evidence of stenosis or aneurysm. No evidence of dissection. No other new interval abnormality since prior study. Electronically signed by Kumar Whyte 09-26-2025 12:59 AM
--- NOTE | 2025-09-26 00:59 | CT Scan Report ---
EXAM: CT angio head w con CLINICAL HISTORY: neuro deficit, acute stroke suspected TECHNIQUE: A contrast-enhanced, thin-slice CT angiography scan of the cerebral vessels was performed with intravenous contrast. Angiographic images were processed, and 3D MIP images were acquired for interpretation. Contiguous axial images were obtained. Reformatted coronal and sagittal images were also reviewed. If IV contrast material had not been administered, the likelihood of detecting abnormalities relevant to the patient's condition would have been substantially decreased. The CT scan was performed according to ALARA (as low as reasonably achievable) principles. COMPARISON: None. 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 The bilateral internal carotid arteries show normal course, calibre, and opacification in the canalicular and cavernous parts. Their division into the anterior cerebral artery and middle cerebral artery is defined. The A1, A2, M1, and M2 segments are normal on both sides. Bilateral vertebral arteries are seen to unite to form the basilar artery in a normal fashion. The basilar artery shows normal course, caliber, and opacification. Its division into the posterior cerebral arteries is defined. Bilateral P1 and P2 segments are normal. The visualized venous structures show normal opacification. There is no evidence of intracranial aneurysm or arteriovenous malformation. IMPRESSION: No evidence of stenosis or aneurysm. No evidence of dissection. Electronically signed by Kumar Whyte 09-26-2025 12:59 AM
--- NOTE | 2025-09-26 01:12 | CT Scan Report ---
EXAM: CT head/brain wo con CLINICAL HISTORY: neuro deficit, acute stroke suspected TECHNIQUE: Multiple axial images were obtained from the skull base to the vertex without contrast. The CT scan was performed according to ALARA (as low as reasonably achievable) principles. 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 FINDINGS: There is cerebral atrophy. No evidence of space-occupying lesion, hemorrhage, edema, mass effect, midline shift, extra-axial collection, or hydrocephalus is noted. The basal cisterns are symmetric and normal in size and configuration. There are scattered periventricular hypodensities, as can be seen with chronic microvascular ischemic changes. The hernandez-white matter differentiation is preserved. The visualized paranasal sinuses and mastoid air cells are well aerated. The orbital contents are within normal limits. The bony structures are intact. IMPRESSION: 1. No evidence of acute intracranial abnormality is demonstrated. 2. Chronic microvascular ischemic changes?stable. 3. Cerebral atrophy?stable. 4. CT scan is negative for large territorial ischemic or hemorrhagic stroke. 5. Non-contrast CT can be negative in the setting of hyperacute infarct or small ischemic infarct, and further evaluation with diffusion-weighted MRI is recommended as clinically appropriate. Electronically signed by Kumar Whyte 09-26-2025 01:12 AM
[2025-09-26] MEDS: cefTRIAXone SODIUM 2,000 MG/50 ML BAG IV STA (01:55)
[2025-09-26] MEDS ORDERED: POLYETHYLENE (MIRALAX) 17 GM PACK PO PRN (05:26)
[2025-09-26] MEDS ORDERED: KETOCONAZOLE 2% CR 15 GM TUBE EXT PRN (05:26)
[2025-09-26] MEDS ORDERED: NITROGLYCERIN SL 0.4 MG/TAB TAB SL PRN (05:26)
[2025-09-26] MEDS ORDERED: PHARMACIST DISCHARGE MED REC CONSULT PRN (05:26)
[2025-09-26] MEDS ORDERED: DICLOFENAC SOD 1% GEL 100 GM TUBE EXT PRN (05:26)
[2025-09-26] MEDS ORDERED: guaiFENesin 600 MG TABCR PO PRN (05:26)
[2025-09-26] MEDS ORDERED: NYSTATIN CR 15 GM TUBE EXT PRN (05:26)
--- NOTE | 2025-09-26 05:38 | History & Physical Report ---
Date of Service September 26, 2025 Assessment & Plan (1) Stroke-like symptoms: Plan: 85-year-old female with past medical history significant for type 2 diabetes, hypertension, hypothyroidism, dyslipidemia, sleep apnea, mild persistent asthma, paroxysmal atrial fibrillation, CKD stage III, chronic CHF, CAD s/p LAD Stent, Hypertension, GERD, Stress Female Incontinence, Degenerative Disc Disease, History of Left-Sided Weakness from Stroke, History of Expressive Aphasia, Depression, History of Subdural Hematoma, presents with strokelike symptoms. Seems since yesterday morning 9 AM patient having difficulty speaking and some right-sided weakness. She has history of stroke and has some left-sided weakness from previous stroke. She ambulates with a walker. Lives with significant other. Patient says she could not ambulate well yesterday. She came tonight with ongoing symptoms. By the time she came to the hospital she was able to speak better. Patient still having movements where could not speak properly. Can tell her name. Knows that she is in the hospital. Can tell her date of . Could tell current month and year. Denies any headache. Vision is okay. No sore throat. No cough. No difficulty swallowing. No fevers. No chest pain. No shortness of breath. No nausea. No abdominal pain. Normal bowel and bladder movements. Hemodynamics are okay. Patient was recently in August 2025 was in the hospital for back pain. Also in July 2025 patient was in the hospital for mechanical fall and right knee pain and at that time she was discharged to SNF. Patient has history of stroke in the past and has speech difficulties. Patient seems ongoing difficulty with expressive aphasia since her past stroke which waxes and wanes with any stress as per records. Strokelike symptoms Having difficulty speaking since yesterday 9 AM currently able to speak better but seems not back to baseline per patient Also some weakness in the right leg Ambulatory dysfunction CT head no acute findings CTA head and neck no acute findings Will do full stroke workup with MRI scan neurochecks, echo Monitor in telemetry Speech evaluation Will continue aspirin and add Plavix gentle fluids for now Change Lipitor to 80 mg daily Follow lipid profile and HbA1c levels Consult neurology in a.m. 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 Chronic heart failure preserved ejection fraction Continue torsemide with potassium supplement Monitor for volume overload Hypertension Continue Toprol and torsemide Hold losartan for permissive hypertension Will monitor CAD status post LAD stent in 1999 On aspirin statin and beta-monico Hypothyroidism On Synthyroid History of diabetes not not on meds Not on meds Will follow HbA1c levels Stress female urinary incontinence On Ditropan Asthma Currently stable Continue home inhalers GERD On Protonix DVT prophylaxis SCDs for now Disposition Telemetry Full code. History of Present Illness Chief Complaint: Strokelike symptoms Primary Care Provider: Lilo Mai MD 85-year-old female with past medical history significant for type 2 diabetes, hypertension, hypothyroidism, dyslipidemia, sleep apnea, mild persistent asthma, paroxysmal atrial fibrillation, CKD stage III, chronic CHF, CAD s/p LAD Stent, Hypertension, GERD, Stress Female Incontinence, Degenerative Disc Disease, History of Left-Sided Weakness from Stroke, History of Expressive Aphasia, Depression, History of Subdural Hematoma, presents with strokelike symptoms. Seems since yesterday morning 9 AM patient having difficulty speaking and some right-sided weakness. She has history of stroke and has some left-sided weakness from previous stroke. She ambulates with a walker. Lives with significant other. Patient says she could not ambulate well yesterday. She came tonight with ongoing symptoms. By the time she came to the hospital she was able to speak better. Patient still having movements where could not speak properly. Can tell her name. Knows that she is in the hospital. Can tell her date of . Could tell current month and year. Denies any headache. Vision is okay. No sore throat. No cough. No difficulty swallowing. No fevers. No chest pain. No shortness of breath. No nausea. No abdominal pain. Normal bowel and bladder movements. Hemodynamics are okay. Patient was recently in August 2025 was in the hospital for back pain. Also in July 2025 patient was in the hospital for mechanical fall and right knee pain and at that time she was discharged to SNF. Patient has history of stroke in the past and has speech difficulties. Patient seems ongoing difficulty with expressive aphasia since her past stroke which waxes and wanes with any stress as per records. Past medical history. As mentioned above Past surgical history. Bilateral breast lesion excision. Colonoscopy. Cardiac cath with stent placement. EGD. Knee arthroscopy. Laparoscopic appendectomy. Bilateral cataract extraction. Left rotator cuff repair. Social history. No smoking. Alcohol rarely. No drug use. Family history. Father had CHF. Mother had breast cancer. Lung cancer. Asthma. Aunt had breast cancer. Son has hypertension. Allergies Allergy/AdvReac Type Severity Reaction Status Date / Time paroxetine Allergy Severe ANAPHYLAXIS Verified 08/20/25 21:05 mold Allergy Intermediate asthma Verified 08/20/25 21:05 symptoms pollen extracts Allergy Intermediate asthma Verified 08/20/25 21:05 symptoms Penicillins Allergy Mild BLISTERED Verified 08/20/25 21:05 HANDS grapefruit Allergy Unknown POSITIVE Verified 08/20/25 21:05 ALLERGY TEST/BRONCHITIS vasquez AdvReac Intermediate gas and Verified 08/20/25 21:05 bloating with consuption of green or kidneys beans broccoli AdvReac Intermediate GAS Verified 08/20/25 21:05 cabbage AdvReac Intermediate "Brassica Verified 08/20/25 22:44 oleracea" -- gas/bloating cauliflower AdvReac Intermediate GAS Verified 08/20/25 21:05 crab AdvReac Intermediate diarrhea Verified 08/20/25 21:05 green vasquez AdvReac Intermediate GAS/BLOATIN Verified 08/20/25 21:05 G peanut AdvReac Intermediate GAS/BLOATIN Verified 08/20/25 21:05 G peas AdvReac Intermediate GAS/BLOATIN Verified 08/20/25 21:05 G orange AdvReac Unknown POSITIVE Verified 08/20/25 21:05 ALLERGY TEST/BRONCHITIS Home Medications Medication Instructions Recorded Confirmed Type albuterol sulfate 90 mcg/actuation 2 inh inhalation Q4H PRN Shortness 09/26/25 09/26/25 History breath activated powder inhaler Of Breath Or Wheezing aspirin 81 mg tablet,delayed 81 mg PO DAILY 09/26/25 09/26/25 History release atorvastatin 20 mg tablet 20 mg PO DAILY 09/26/25 09/26/25 History azelastine 137 mcg (0.1 %) nasal 2 spray intranasal QPM 09/26/25 09/26/25 History spray bimatoprost 0.01 % eye drops 1 drp OPB HS 09/26/25 09/26/25 History (Sumeet) coenzyme Q10 100 mg capsule 100 mg PO DAILY 09/26/25 09/26/25 History diclofenac sodium 1 % topical gel 2 g topical TID PRN Pain 09/26/25 09/26/25 History (Voltaren Arthritis Pain) fluticasone 250 mcg-salmeterol 50 1 inh inhalation BID 09/26/25 09/26/25 History mcg/dose blistr powdr for inhalation (Wixela Inhub) fluticasone propionate 50 2 spray intranasal DAILY 09/26/25 09/26/25 History mcg/actuation nasal spray,suspension guaifenesin 600 mg tablet, 600 mg PO Q12H PRN Congestion 09/26/25 09/26/25 History extended release 12 hr (Mucinex) ketoconazole 2 % topical cream 1 applic topical DAILY PRN Rash 09/26/25 09/26/25 History levothyroxine 75 mcg tablet 75 mcg PO DAILY 09/26/25 09/26/25 History losartan 50 mg tablet 50 mg PO DAILY 09/26/25 09/26/25 History magnesium oxide 400 mg (241.3 mg 400 mg PO DAILY 09/26/25 09/26/25 History magnesium) tablet metoprolol succinate 25 mg 25 mg PO DAILY 09/26/25 09/26/25 History tablet,extended release 24 hr montelukast 10 mg tablet 10 mg PO DAILY 09/26/25 09/26/25 History multivitamin with minerals 1 tab PO DAILY 09/26/25 09/26/25 History nystatin 100,000 unit/gram topical 1 applic topical BID PRN Rash 09/26/25 09/26/25 History cream oxybutynin chloride 10 mg 10 mg PO DAILY 09/26/25 09/26/25 History tablet,extended release 24 hr pantoprazole 40 mg tablet,delayed 40 mg PO DAILY 09/26/25 09/26/25 History release polyethylene glycol 3350 17 gram 17 g PO DAILY PRN Constipation 09/26/25 09/26/25 History oral powder packet potassium chloride 20 mEq 20 meq PO BID 09/26/25 09/26/25 History tablet,extended release(part/cryst) torsemide 20 mg tablet 20 mg PO DAILY 09/26/25 09/26/25 History vitamin B complex-vitamin C-folic 1 tab PO DAILY 09/26/25 09/26/25 History acid 1 mg tablet Past Med/Surg History Problem List Stroke-like symptoms Leukocytosis (Acute) Right shoulder pain (Acute) Ambulatory dysfunction (Acute) Weakness (Acute) Confusion (Acute) Right knee pain Difficulty speaking Dyslipidemia, goal LDL below 70 ASCVD (arteriosclerotic cardiovascular disease) History of cardioembolic cerebrovascular accident (CVA) (Acute) CHI (closed head injury) (Acute) Ambulatory dysfunction (Acute) Fall (Acute) History of CVA (cerebrovascular accident) Diabetes mellitus type 2, diet-controlled Acute on chronic heart failure with preserved ejection fraction CHF (congestive heart failure) Confusion (Acute) Weakness (Acute) Hypertension (Acute) Hypertensive urgency Cervical strain, acute (Acute) Head injury (Acute) Drug-induced sinus bradycardia Hiatal hernia with GERD Vasovagal syncope Acute hypoxemic respiratory failure Hypomagnesemia (Acute) Vomiting (Acute) Chest pain (Acute) Syncope (Acute) Hypomagnesemia (Acute) Stroke-like symptoms (Acute) Nausea & vomiting (Acute) Arthralgia Embolic stroke Elevated troponin Near syncope Ambulatory dysfunction (Acute) Chronic pain in left foot (Acute) Hypomagnesemia (Acute) Generalized weakness (Acute) Osteoarthritis of ankle, left HTN (hypertension) Left ankle swelling (Acute) Hypomagnesemia (Acute) Syncope and collapse (Acute) Right rotator cuff tear Right knee DJD Hypokalemia CAD (coronary artery disease) (Chronic) stent in 1999 Anemia (Acute) Postoperative bleeding from mouth (Acute) Orthostatic syncope (Acute) Chronic anticoagulation (Acute) Near syncope DVT prophylaxis Postoperative bleeding from mouth History of rotator cuff surgery (Chronic) History of cataract extraction (Chronic) T2DM (type 2 diabetes mellitus) (Chronic) HTN (hypertension) (Chronic) HLD (hyperlipidemia) (Chronic) PAF (paroxysmal atrial fibrillation) (Chronic) DEMARIO (obstructive sleep apnea) (Chronic) Asthma (Chronic) CKD (chronic kidney disease) stage 3, GFR 30-59 ml/min (Chronic) Primary open angle glaucoma (Chronic) History of arthroscopic knee surgery (Chronic) History of tonsillectomy (Chronic) GERD (gastroesophageal reflux disease) (Chronic) History of appendectomy (Chronic) Hypothyroidism (Chronic) History of placement of stent in LAD coronary artery (Chronic) Sleep apnea (Chronic) Stented coronary artery (Chronic) Medical History Fall Hyponatremia Family History Father CHF (congestive heart failure) Mother Cancer Social History Smoking Status: Never smoker Second Hand Exposure: No; Do You Dip or Chew Tobacco: No; Hx Alcohol Use: No Hx Substance Use: No Preferred Language: Slovenian Communication Ability: Effective Grill Associate Required: No Beliefs That Will Affect Care: None marital status: Life Partner Current Living Situation: Significant Other Current Living Situation Comment: s/o Feels Safe at Home: Yes Safety Concerns: Feels Safe At This Time Assistive Devices: Glasses and Walker Review of Systems Review of Systems: All systems reviewed & are unremarkable except as noted in HPI & below Physical Exam Physical Exam: General- Slow to answer. Not in acute distress Head- atraumatic Eyes- PERRL, EOMI. ENT- oropharynx clear Neck- supple, no JVD. Lungs- clear to auscultation no wheezing or crackles Heart- regular rhythm; no murmur, no gallop. Abdomen- normal bowel sounds, soft, nontender, no distension. Extremities- no pretibial edema, no erythema seen Neuro- alert, oriented x 3; PERRL, EOMI; no facial palsy; having moments of dysphasia , power 3-4/5 in upper extremities. 3-4/5 in right lower extremity 2/5 in left lower extremity. couldnot lift and hold left lower extremity, no obvious pronator drift, coordination of movements normal. sensations and position sense intact. Results & Data Results & Data Vital Signs (Past 12 Hours) Vital Signs Temp Pulse Pulse Resp BP BP Pulse Ox 09/26/25 02:17 83 09/26/25 02:00 89 19 144/58 H 96 09/26/25 01:00 71 20 141/66 H 95 09/26/25 00:25 80 17 140/106 H 94 09/26/25 00:25 80 17 94 09/26/25 00:16 84 16 140/106 H 95 09/25/25 22:28 78 09/25/25 22:26 37.2 C 77 16 153/66 H 95 O2 Del Method 09/26/25 02:17 09/26/25 02:00 Room Air 09/26/25 01:00 Room Air 09/26/25 00:25 Room Air 09/26/25 00:25 Room Air 09/26/25 00:16 Room Air 09/25/25 22:28 09/25/25 22:26 Room Air Diagnostic Findings Laboratory Results WBC 12.16 K/ul (4.8-10.8) H 09/25/25 23:00 RBC 3.91 M/uL (4.20-5.40) L 09/25/25 23:00 Hgb 11.6 g/dl (12.0-16.0) L 09/25/25 23:00 Hct 35.9 % (37.0-47.0) L 09/25/25 23:00 MCV 91.8 fL (80.0-100.0) 09/25/25 23:00 MCH 29.7 pg (25.0-34.0) 09/25/25 23:00 MCHC 32.3 g/dL (32.0-36.0) 09/25/25 23:00 RDW Std Deviation 47.5 fL (36.4-46.3) H 09/25/25 23:00 RDW Coeff of Stoney 14.0 % (11.5-14.5) 09/25/25 23:00 Plt Count 273 K/uL (130-400) 09/25/25 23:00 MPV 10.5 fL (9.4-12.4) 09/25/25 23:00 Immature Gran % (Auto) 0.5 % 09/25/25 23:00 Neut % (Auto) 76.9 % 09/25/25 23:00 Lymph % (Auto) 8.6 % 09/25/25 23:00 Coal % (Auto) 13.6 % 09/25/25 23:00 Eos % (Auto) 0.2 % 09/25/25 23:00 Baso % (Auto) 0.2 % 09/25/25 23:00 Neut # (Auto) 9.35 K/uL (1.40-6.50) H 09/25/25 23:00 Lymph # (Auto) 1.05 K/uL (1.20-3.40) L 09/25/25 23:00 Coal # (Auto) 1.65 K/uL (0.11-0.59) H 09/25/25 23:00 Eos # (Auto) 0.03 K/uL (0.00-0.50) 09/25/25 23:00 Baso # (Auto) 0.02 K/uL (0.00-0.20) 09/25/25 23:00 Immature Gran # (Auto) 0.06 K/uL (0.01-0.20) 09/25/25 23:00 Sodium 133 mmol/L (136-145) L 09/25/25 23:09 Potassium 4.1 mmol/L (3.5-5.1) 09/25/25 23:09 Chloride 99 mmol/L (98-107) 09/25/25 23:09 Carbon Dioxide 28 mmol/L (21-32) 09/25/25 23:09 Anion Gap 6 (3-11) 09/25/25 23:09 BUN 21 mg/dl (6-23) 09/25/25 23:09 Creatinine 0.99 mg/dl (0.6-1.2) 09/25/25 23:09 Est Cr Clr Drug Dosing 38.4 ml/min 09/25/25 23:09 eGFR 55.53 09/25/25 23:09 BUN/Creatinine Ratio 21.2 (10-20) H 09/25/25 23:09 Glucose 155 mg/dl (70-99(Fasting)) H 09/25/25 23:09 Calcium 9.4 mg/dl (8.6-10.3) 09/25/25 23:09 Magnesium 1.9 mg/dl (1.7-2.4) 09/25/25 23:09 Total Bilirubin 0.3 mg/dl (0.2-1.0) 09/25/25 23:09 AST 15 U/L (13-39) 09/25/25 23:09 ALT 13 U/L (7-52) 09/25/25 23:09 Alkaline Phosphatase 73 U/L (34-104) 09/25/25 23:09 Troponin I High Sens 34.4 pg/ml (0-14) H D 09/26/25 01:48 Total Protein 7.3 gm/dl (6.0-8.3) 09/25/25 23:09 Albumin 3.5 gm/dl (3.4-5.0) 09/25/25 23:09 Globulin 3.8 gm/dl (2.5-4.0) 09/25/25 23:09 Albumin/Globulin Ratio 0.9 (0.9-2) 09/25/25 23:09 TSH 0.587 uIu/ml (0.300-4.500) 09/25/25 23:09 Urine Color Dark Yellow 09/25/25 22:50 Urine Appearance Cloudy (Clear) A 09/25/25 22:50 Urine pH 6.0 (4.5-7.5) 09/25/25 22:50 Ur Specific [place] 1.012 (1.000-1.030) 09/25/25 22:50 Urine Protein Trace (Negative) H 09/25/25 22:50 Urine Glucose (UA) Negative (Negative) 09/25/25 22:50 Urine Ketones Negative (Negative) 09/25/25 22:50 Urine Blood Trace (Negative) H 09/25/25 22:50 Urine Nitrite Positive (Negative) A 09/25/25 22:50 Urine Bilirubin Negative (Negative) 09/25/25 22:50 Urine Urobilinogen Negative (Negative) 09/25/25 22:50 Ur Leukocyte Esterase 3+ (Negative) H 09/25/25 22:50 Urine WBC (Auto) >50 /hpf (0-5) H 09/25/25 22:50 Urine RBC (Auto) 0-2 /hpf (0-2) 09/25/25 22:50 U Hyaline Cast (Auto) 3-5 /lpf (0-2) H 09/25/25 22:50 U Epithel Cells (Auto) 0-2 /hpf (0-2) 09/25/25 22:50 Urine Bacteria (Auto) 4+ (None Seen) H 09/25/25 22:50 Urine Comment 09/25/25 22:50 Impressions Chest X-Ray 09/25/25 22:40 Exam(s): XR CXR 1 VIEW EXAM: XR Chest, 1 View CLINICAL HISTORY: Reason for exam: weakness. TECHNIQUE: Frontal view of the chest. COMPARISON: 09/18/2025 FINDINGS: Lungs: Unremarkable. No consolidation. Pleural space: Unremarkable. No pneumothorax. Heart: Unremarkable. No cardiomegaly. Mediastinum: Unremarkable. Normal mediastinal contour. Bones/joints: Unremarkable. No acute fracture. IMPRESSION: Normal chest x-ray. Electronically signed by: Bowen Mendes MD 09/26/25 00:[address] 09/25/25 22:42 EXAM: CT head/brain wo con CLINICAL HISTORY: neuro deficit, acute stroke suspected TECHNIQUE: Multiple axial images were obtained from the skull base to the vertex without contrast. The CT scan was performed according to ALARA (as low as reasonably achievable) principles. COMPARISON: 09/18/2025 11:33:14 PAPER TWISTER TENDER. FINDINGS: There is cerebral atrophy. No evidence of space-occupying lesion, hemorrhage, edema, mass effect, midline shift, extra-axial collection, or hydrocephalus is noted. The basal cisterns are symmetric and normal in size and configuration. There are scattered periventricular hypodensities, as can be seen with chronic microvascular ischemic changes. The hernandez-white matter differentiation is preserved. The visualized paranasal sinuses and mastoid air cells are well aerated. The orbital contents are within normal limits. The bony structures are intact. IMPRESSION: 1. No evidence of acute intracranial abnormality is demonstrated. 2. Chronic microvascular ischemic changes?stable. 3. Cerebral atrophy?stable. 4. CT scan is negative for large territorial ischemic or hemorrhagic stroke. 5. Non-contrast CT can be negative in the setting of hyperacute infarct or small ischemic infarct, and further evaluation with diffusion-weighted MRI is recommended as clinically appropriate. Electronically signed by Kumar Whyte 09-26-2025 01:12 AM Head CTA 09/25/25 22:42 EXAM: CT angio head w con CLINICAL HISTORY: neuro deficit, acute stroke suspected TECHNIQUE: A contrast-enhanced, thin-slice CT angiography scan of the cerebral vessels was performed with intravenous contrast. Angiographic images were processed, and 3D MIP images were acquired for interpretation. Contiguous axial images were obtained. Reformatted coronal and sagittal images were also reviewed. If IV contrast material had not been administered, the likelihood of detecting abnormalities relevant to the patient's condition would have been substantially decreased. The CT scan was performed according to ALARA (as low as reasonably achievable) principles. COMPARISON: None. 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 The bilateral internal carotid arteries show normal course, calibre, and opacification in the canalicular and cavernous parts. Their division into the anterior cerebral artery and middle cerebral artery is defined. The A1, A2, M1, and M2 segments are normal on both sides. Bilateral vertebral arteries are seen to unite to form the basilar artery in a normal fashion. The basilar artery shows normal course, caliber, and opacification. Its division into the posterior cerebral arteries is defined. Bilateral P1 and P2 segments are normal. The visualized venous structures show normal opacification. There is no evidence of intracranial aneurysm or arteriovenous malformation. IMPRESSION: No evidence of stenosis or aneurysm. No evidence of dissection. Electronically signed by Kumar Whyte 09-26-2025 12:59 AM Neck CTA 09/25/25 22:42 EXAM: CT angio neck with con CLINICAL HISTORY: neuro deficit, acute stroke suspected TECHNIQUE: Contrast-enhanced thin-slice CT angiography scan of the carotid vessels was performed with intravenous contrast. Angiographic images were processed, and 3D MIP images were acquired for interpretation. Contiguous axial images were obtained. Reformatted coronal and sagittal images were also reviewed. If intravenous contrast material had not been administered, the likelihood of detecting abnormalities relevant to the patient's condition would have been substantially decreased. The CT scan was performed according to ALARA (as low as reasonably achievable) principles. COMPARISON: 13:01:29 PAPER TWISTER TENDER FINDINGS: The included great vessels of the aortic arch are grossly unremarkable. The common carotid artery, carotid bulb, internal carotid artery, and origin of the external carotid artery are well opacified. The vertebral arteries are well opacified. The jugular veins are well opacified. The included lung apices are grossly unremarkable. The thyroid gland appears unremarkable. IMPRESSION: No evidence of stenosis or aneurysm. No evidence of dissection. No other new interval abnormality since prior study. Electronically signed by Kumar Whyte 09-26-2025 12:59 AM ECG Additional Comments: ECG. Normal sinus rhythm rate of 73. No acute ST changes seen. QTc 420. Code Status & VTE Plan VTE Prophylaxis Plan VTE Prophylaxis will be ordered: Yes
[2025-09-26] MEDS ORDERED: ALBUTEROL HFA INHALER 8.5 GM INH PRN (05:51)
[2025-09-26] MEDS: SODIUM CHLORIDE 0.9% 1,000 ML IV SCH (06:26)
[2025-09-26] MEDS: LEVOTHYROXINE SODIUM 75 MCG TABLET PO SCH (06:43)
[2025-09-26] MEDS: VITAMIN B COMPLEX TAB PO SCH (08:40)
[2025-09-26] MEDS: METOPROLOL SUCC 25MG EXT REL TAB PO SCH (08:40)
[2025-09-26] MEDS: ATORVASTATIN 40 MG TAB PO SCH (08:40)
[2025-09-26] MEDS: MONTELUKAST SODIUM 10 MG TABLET PO SCH (08:40)
[2025-09-26] MEDS: MAGNESIUM OXIDE 400 MG TAB PO SCH (08:40)
[2025-09-26] MEDS: CEROVITE ADV FORMULA TAB PO SCH (08:40)
[2025-09-26] MEDS: ASPIRIN 81 MG ECTAB PO SCH (08:41)
[2025-09-26] MEDS: OXYBUTYNIN CHLORIDE XL 5 MG TABCR PO SCH (08:41)
[2025-09-26] MEDS: TORSEMIDE 20 MG TAB PO SCH (08:41)
[2025-09-26] MEDS: CLOPIDOGREL BISULFATE 75 MG TAB PO SCH (08:41)
[2025-09-26] MEDS: FLUTICASONE/VILANTEROL 200/25MCG 14 PUFFS/INHALER INH SCH (08:42)
[2025-09-26] MEDS: FLUTICASONE PROPIONATE NA SPR 16 GM BTL SCH (08:42)
[2025-09-26] MEDS ORDERED: NON-FORMULARY MEDICATION (Coenzyme Q10 100 mg Capsule) PO SCH (09:00)
[2025-09-26] MEDS: GADOBUTROL 65ML VIAL IV ONE (09:28)
[2025-09-26] MEDS: POTASSIUM CHLORIDE CRTAB 20 MEQ TABCR PO SCH (09:55)
--- NOTE | 2025-09-26 10:07 | Magnetic Resonance Report ---
MRI OF THE BRAIN COMBO CLINICAL HISTORY: Stroke like symptoms. Hypertrophy weakness. Speech difficulty. COMPARISON STUDY: MRI of the brain August 24, 2025. Head CT and CTA of the head performed earlier today. TECHNIQUE: MRI of the brain was performed utilizing various T1 and T2-weighted sequences in the axial , sagittal, and coronal planes. Contrast-enhanced sequences were acquired following the administratio n of 7.5 cc of Gadavist. FINDINGS: Note is made of a 6 mm focus of restricted diffusion within the inferior right cerebellar h emisphere on diffusion-weighted sequence image 6 of 32. This is hypointense on the ADC map. There are numerous additional smaller foci of restricted diffusion. The majority of these are punctate. These represent small acute infarcts. There is no hemorrhage. There is no mass effect. Ventricular system i s unremarkable. Basal cisterns are patent. There are no extra-axial collections. White matter T2 hype rintense foci are unchanged since previous MRI of August 24, 2025 represent small vessel disease. There is no intracranial mass or pathologic enhancement. There are no calvarial lesions. There is no evidence for sinusitis. There is no mastoid fluid. IMPRESSION: Multiple small foci of restricted diffusion, the largest of which is a 6 mm inferior righ t cerebellar focus. These are consistent with small acute infarcts and suggest an embolic etiology. N o mass effect. No hemorrhage. The findings will be called/faxed to the ordering provider at time of d ictation. ACT 112: Negative or not required by law. Electronically signed by: Guillaume Borrego M.D. 09/26/2025 10:06 AM
--- NOTE | 2025-09-26 13:29 | Electrocardiogram Report ---
Test Reason : Blood Pressure : */* mmHG Vent. Rate : 73 BPM Atrial Rate : 73 BPM P-R Int : 180 ms QRS Dur : 98 ms QT Int : 382 ms P-R-T Axes : 41 -1 52 degrees QTcB Int : 420 ms Normal sinus rhythm When compared with ECG of 18-Sep-2025 11:57, Criteria for Inferior infarct are no longer Present T wave inversion no longer evident in Inferior leads Confirmed by Goyo Julian ([id number]) on 09/26/2025 1:29:08 PM Referred By: REFERRED SELF Confirmed By: Goyo Julian
[2025-09-26] MEDS: APIXABAN 5 MG TABLET PO ONE (13:42)
--- NOTE | 2025-09-26 13:52 | Neurology Consultation ---
Date of Consultation September 26, 2025 Assessment & Plan (1) Acute ischemic stroke: Recommend continued stroke work up to include the following: Echocardiogram as part of complete stroke workup Continue frequent neurological assessments Obtain stat CT brain without contrast for any acute neurological decline Continue to monitor/control blood pressure & blood glucose Continue to monitor telemetry closely Continue to monitor renal and hepatic function, keep euvolemic Metabolic workup should include hgbA1c, fasting lipids Recommend continue antiplatelet at this time Continue to monitor for s/s of hemorrhage Recommend high dose statin therapy indefinitely if tolerated Ok from neurology perspective for VTE prophylaxis PT/OT/SLT to eval and treat Patient has significant history of SDH while in setting of atrial arrhythmia, HF and ischemic stroke Must weigh risk:benefit when determining if will resume full anticoagulation Agree with plan for cardiology consultation Patient may be candidate for Watchman device *If decision made to resume full anticoagulation then recommend daily CT brain without contrast during hospitalization to evaluate for hemorrhagic conversion Telehealth Consultation Telehealth Information Telehealth Information: I performed this visit using a real-time telehealth connection between my location and the patients originating location ([facility]). After connecting through interactive tele-video, patient was identified by name and date of and/or wristband check.Patient (or authorized healthcare small business representative) was informed that this was a telemedicine visit and it was being conducted confidentially over secure lines. My office door was closed and no one else was present in the room with me.Patient (or authorized healthcare small business representative) provided consent to proceed with the visit, expressed an understanding of privacy and security of the telemedicine visit, and gave permission to have a hospital small business representative in the room in order to assist with the visit and to conduct portions of the visit, as needed. I informed the patient (or authorized healthcare small business representative) that I reviewed their record and presented the opportunity for them to ask any questions regarding the visit today. The patient agreed to participate. History of Present Illness Reason for Consultation: Stroke like symptoms Requesting Physician: Dr Alexander Attending Physician: Dali Alexander MD History of Present Illness 85yo right handed female presented to ER with concern of possible stroke like symptoms. She has a history of HTN, DM, AFIB, CKD, HF, CAD, dyslipidemia and reportedly has had stroke in the past resulting in some mild left sided weakness reports expressive aphasia. She presented with new concern of right sided weakness and difficulty with speech. She has undergone CT brain without contrast revealing no overt evidence of hemorrhage. She has undergone CTA head & neck without evidence of LVO or significant/flow limiting stenosis. She has undergone MRI brain depicting multiple small punctate areas of acute infarct in right cerebellum. She has reportedly been off of anticoagulation following a fall and SDH last year. I have performed televideo consultation. She is awake and able to follow commands. She is able to speak and answer some questions but there appears to be some elements of expressive deficits. Neurological exam is non lateralizing/nonfocal in terms of motor strength. She has some difficult with coordination. Son Wenceslao at bedside is asking for her to resume full anticoagulation and asking for a specific farm equipment service technician to see her during this hospitalization. Primary Dr. Alexander has been made aware. Allergies Allergy/AdvReac Type Severity Reaction Status Date / Time paroxetine Allergy Severe ANAPHYLAXIS Verified 08/20/25 21:05 mold Allergy Intermediate asthma Verified 08/20/25 21:05 symptoms pollen extracts Allergy Intermediate asthma Verified 08/20/25 21:05 symptoms Penicillins Allergy Mild BLISTERED Verified 08/20/25 21:05 HANDS grapefruit Allergy Unknown POSITIVE Verified 08/20/25 21:05 ALLERGY TEST/BRONCHITIS vasquez AdvReac Intermediate gas and Verified 08/20/25 21:05 bloating with consuption of green or kidneys beans broccoli AdvReac Intermediate GAS Verified 08/20/25 21:05 cabbage AdvReac Intermediate "Brassica Verified 08/20/25 22:44 oleracea" -- gas/bloating cauliflower AdvReac Intermediate GAS Verified 08/20/25 21:05 crab AdvReac Intermediate diarrhea Verified 08/20/25 21:05 green vasquez AdvReac Intermediate GAS/BLOATIN Verified 08/20/25 21:05 G peanut AdvReac Intermediate GAS/BLOATIN Verified 08/20/25 21:05 G peas AdvReac Intermediate GAS/BLOATIN Verified 08/20/25 21:05 G orange AdvReac Unknown POSITIVE Verified 08/20/25 21:05 ALLERGY TEST/BRONCHITIS Home Medications Medication Instructions Recorded Confirmed Type albuterol sulfate 90 mcg/actuation 2 inh inhalation Q4H PRN Shortness 09/26/25 09/26/25 History breath activated powder inhaler Of Breath Or Wheezing aspirin 81 mg tablet,delayed 81 mg PO DAILY 09/26/25 09/26/25 History release atorvastatin 20 mg tablet 20 mg PO DAILY 09/26/25 09/26/25 History azelastine 137 mcg (0.1 %) nasal 2 spray intranasal QPM 09/26/25 09/26/25 History spray bimatoprost 0.01 % eye drops 1 drp OPB HS 09/26/25 09/26/25 History (Lumigan) coenzyme Q10 100 mg capsule 100 mg PO DAILY 09/26/25 09/26/25 History diclofenac sodium 1 % topical gel 2 g topical TID PRN Pain 09/26/25 09/26/25 History (Voltaren Arthritis Pain) fluticasone 250 mcg-salmeterol 50 1 inh inhalation BID 09/26/25 09/26/25 History mcg/dose blistr powdr for inhalation (Wixela Inhub) fluticasone propionate 50 2 spray intranasal DAILY 09/26/25 09/26/25 History mcg/actuation nasal spray,suspension guaifenesin 600 mg tablet, 600 mg PO Q12H PRN Congestion 09/26/25 09/26/25 History extended release 12 hr (Mucinex) ketoconazole 2 % topical cream 1 applic topical DAILY PRN Rash 09/26/25 09/26/25 History levothyroxine 75 mcg tablet 75 mcg PO DAILY 09/26/25 09/26/25 History losartan 50 mg tablet 50 mg PO DAILY 09/26/25 09/26/25 History magnesium oxide 400 mg (241.3 mg 400 mg PO DAILY 09/26/25 09/26/25 History magnesium) tablet metoprolol succinate 25 mg 25 mg PO DAILY 09/26/25 09/26/25 History tablet,extended release 24 hr montelukast 10 mg tablet 10 mg PO DAILY 09/26/25 09/26/25 History multivitamin with minerals 1 tab PO DAILY 09/26/25 09/26/25 History nystatin 100,000 unit/gram topical 1 applic topical BID PRN Rash 09/26/25 09/26/25 History cream oxybutynin chloride 10 mg 10 mg PO DAILY 09/26/25 09/26/25 History tablet,extended release 24 hr pantoprazole 40 mg tablet,delayed 40 mg PO DAILY 09/26/25 09/26/25 History release polyethylene glycol 3350 17 gram 17 g PO DAILY PRN Constipation 09/26/25 09/26/25 History oral powder packet potassium chloride 20 mEq 20 meq PO BID 09/26/25 09/26/25 History tablet,extended release(part/cryst) torsemide 20 mg tablet 20 mg PO DAILY 09/26/25 09/26/25 History vitamin B complex-vitamin C-folic 1 tab PO DAILY 09/26/25 09/26/25 History acid 1 mg tablet Patient History Medical History Fall Hyponatremia Family History Father CHF (congestive heart failure) Mother Cancer Social History Smoking Status: Never smoker Second Hand Exposure: No; Do You Dip or Chew Tobacco: No; Hx Alcohol Use: No Hx Substance Use: No Preferred Language: Azeri Communication Ability: Effective Health Technical Writer Required: No Beliefs That Will Affect Care: None marital status: Life Partner Current Living Situation: Significant Other Current Living Situation Comment: s/o Feels Safe at Home: Yes Safety Concerns: Feels Safe At This Time Assistive Devices: Glasses and Walker Physical Exam Neurological Examination: Mental Status: Awake and alert to self and situation Fluency is fluctuant CN testing: I: Deferred II: Reports no changes in visual acuity III/IV/: No evidence of gaze preference, hippus, nystagmus or roving eye movements V: Facial sensation reportedly grossly intact to light touch bilaterally VII: Facial movements appear without evidence of asymmetry VIII: Hearing appears grossly intact to loud voice bilaterally IX/X: Palate is unable to be accurately visualized XI: Shoulder shrug appears symmetric/ grossly intact bilaterally XII: Tongue protrudes midline Motor exam: Strength appears grossly intact in all extremities Tone: Unable to accurately assess via telemedicine Sensory: Sensation is reportedly grossly intact throughout Coordination: Some evidence of dysmetria/dysdiadochokinesia Reflexes: Unable to accurately assess via telemedicine Gait: Deferred Results & Data Vital Signs (Past 12 Hours) Vital Signs Temp Pulse Pulse Resp BP BP Pulse Ox 09/26/25 11:12 37.2 C 82 18 131/72 95 09/26/25 07:51 70 09/26/25 07:31 36.9 C 76 18 134/84 98 09/26/25 05:47 82 09/26/25 04:50 37.4 C 79 20 130/73 90 09/26/25 04:22 85 19 120/54 L 98 09/26/25 04:00 74 20 120/54 L 95 09/26/25 03:00 72 19 118/49 L 93 09/26/25 02:31 83 18 159/46 H 95 09/26/25 02:17 83 09/26/25 02:00 80 19 144/58 H 94 09/26/25 02:00 89 19 144/58 H 96 O2 Del Method 09/26/25 11:12 Room Air 09/26/25 07:51 09/26/25 07:31 Room Air 09/26/25 05:47 09/26/25 04:50 Room Air 09/26/25 04:22 Room Air 09/26/25 04:00 Room Air 09/26/25 03:00 Room Air 09/26/25 02:31 Room Air 09/26/25 02:17 09/26/25 02:00 Room Air 09/26/25 02:00 Room Air Laboratory Results Abnormal lab results 09/25/25 09/25/25 09/25/25 Range/Units 22:50 23:00 23:09 WBC 12.16 H (4.8-10.8) K/ul RBC 3.91 L (4.20-5.40) M/uL Hgb 11.6 L (12.0-16.0) g/dl Hct 35.9 L (37.0-47.0) % RDW Std Deviation 47.5 H (36.4-46.3) fL Neut # (Auto) 9.35 H (1.40-6.50) K/uL Lymph # (Auto) 1.05 L (1.20-3.40) K/uL [place] # (Auto) 1.65 H (0.11-0.59) K/uL Sodium 133 L (136-145) mmol/L BUN/Creatinine Ratio 21.2 H (10-20) Glucose 155 H (70-99(Fasting)) mg/dl Troponin I High Sens 21.4 H (0-14) pg/ml Urine Appearance Cloudy A (Clear) Urine Protein Trace H (Negative) Urine Blood Trace H (Negative) Urine Nitrite Positive A (Negative) Ur Leukocyte Esterase 3+ H (Negative) Urine WBC (Auto) >50 H (0-5) /hpf U Hyaline Cast (Auto) 3-5 H (0-2) /lpf Urine Bacteria (Auto) 4+ H (None Seen) 09/26/25 09/26/25 Range/Units 01:48 11:26 WBC (4.8-10.8) K/ul RBC (4.20-5.40) M/uL Hgb (12.0-16.0) g/dl Hct (37.0-47.0) % RDW Std Deviation (36.4-46.3) fL Neut # (Auto) (1.40-6.50) K/uL Lymph # (Auto) (1.20-3.40) K/uL [place] # (Auto) (0.11-0.59) K/uL Sodium (136-145) mmol/L BUN/Creatinine Ratio (10-20) Glucose (70-99(Fasting)) mg/dl Troponin I High Sens 34.4 H D 137.2 H* D (0-14) pg/ml Urine Appearance (Clear) Urine Protein (Negative) Urine Blood (Negative) Urine Nitrite (Negative) Ur Leukocyte Esterase (Negative) Urine WBC (Auto) (0-5) /hpf U Hyaline Cast (Auto) (0-2) /lpf Urine Bacteria (Auto) (None Seen) Diagnostic Findings Chest X-Ray 09/25/25 22:40 Exam(s): XR CXR 1 VIEW EXAM: XR Chest, 1 View CLINICAL HISTORY: Reason for exam: weakness. TECHNIQUE: Frontal view of the chest. COMPARISON: 09/18/2025 FINDINGS: Lungs: Unremarkable. No consolidation. Pleural space: Unremarkable. No pneumothorax. Heart: Unremarkable. No cardiomegaly. Mediastinum: Unremarkable. Normal mediastinal contour. Bones/joints: Unremarkable. No acute fracture. IMPRESSION: Normal chest x-ray. Electronically signed by: Bowen Mendes MD 09/26/25 00:[address] 09/25/25 22:42 EXAM: CT head/brain wo con CLINICAL HISTORY: neuro deficit, acute stroke suspected TECHNIQUE: Multiple axial images were obtained from the skull base to the vertex without contrast. The CT scan was performed according to ALARA (as low as reasonably achievable) principles. 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 FINDINGS: There is cerebral atrophy. No evidence of space-occupying lesion, hemorrhage, edema, mass effect, midline shift, extra-axial collection, or hydrocephalus is noted. The basal cisterns are symmetric and normal in size and configuration. There are scattered periventricular hypodensities, as can be seen with chronic microvascular ischemic changes. The hernandez-white matter differentiation is preserved. The visualized paranasal sinuses and mastoid air cells are well aerated. The orbital contents are within normal limits. The bony structures are intact. IMPRESSION: 1. No evidence of acute intracranial abnormality is demonstrated. 2. Chronic microvascular ischemic changes?stable. 3. Cerebral atrophy?stable. 4. CT scan is negative for large territorial ischemic or hemorrhagic stroke. 5. Non-contrast CT can be negative in the setting of hyperacute infarct or small ischemic infarct, and further evaluation with diffusion-weighted MRI is recommended as clinically appropriate. Electronically signed by Kumar Whyte 09-26-2025 01:12 AM Head CTA 09/25/25 22:42 EXAM: CT angio head w con CLINICAL HISTORY: neuro deficit, acute stroke suspected TECHNIQUE: A contrast-enhanced, thin-slice CT angiography scan of the cerebral vessels was performed with intravenous contrast. Angiographic images were processed, and 3D MIP images were acquired for interpretation. Contiguous axial images were obtained. Reformatted coronal and sagittal images were also reviewed. If IV contrast material had not been administered, the likelihood of detecting abnormalities relevant to the patient's condition would have been substantially decreased. The CT scan was performed according to ALARA (as low as reasonably achievable) principles. COMPARISON: None. 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 The bilateral internal carotid arteries show normal course, calibre, and opacification in the canalicular and cavernous parts. Their division into the anterior cerebral artery and middle cerebral artery is defined. The A1, A2, M1, and M2 segments are normal on both sides. Bilateral vertebral arteries are seen to unite to form the basilar artery in a normal fashion. The basilar artery shows normal course, caliber, and opacification. Its division into the posterior cerebral arteries is defined. Bilateral P1 and P2 segments are normal. The visualized venous structures show normal opacification. There is no evidence of intracranial aneurysm or arteriovenous malformation. IMPRESSION: No evidence of stenosis or aneurysm. No evidence of dissection. Electronically signed by Kumar Whyte 09-26-2025 12:59 AM Neck CTA 09/25/25 22:42 EXAM: CT angio neck with con CLINICAL HISTORY: neuro deficit, acute stroke suspected TECHNIQUE: Contrast-enhanced thin-slice CT angiography scan of the carotid vessels was performed with intravenous contrast. Angiographic images were processed, and 3D MIP images were acquired for interpretation. Contiguous axial images were obtained. Reformatted coronal and sagittal images were also reviewed. If intravenous contrast material had not been administered, the likelihood of detecting abnormalities relevant to the patient's condition would have been substantially decreased. The CT scan was performed according to ALARA (as low as reasonably achievable) principles. COMPARISON: 13:01:29 GLASS FORMING ENGINEER FINDINGS: The included great vessels of the aortic arch are grossly unremarkable. The common carotid artery, carotid bulb, internal carotid artery, and origin of the external carotid artery are well opacified. The vertebral arteries are well opacified. The jugular veins are well opacified. The included lung apices are grossly unremarkable. The thyroid gland appears unremarkable. IMPRESSION: No evidence of stenosis or aneurysm. No evidence of dissection. No other new interval abnormality since prior study. Electronically signed by Kumar Whyte 09-26-2025 12:59 AM Brain MRI 09/26/25 05:26 MRI OF THE BRAIN COMBO CLINICAL HISTORY: Stroke like symptoms. Hypertrophy weakness. Speech difficulty. COMPARISON STUDY: MRI of the brain August 24, 2025. Head CT and CTA of the head performed earlier today. TECHNIQUE: MRI of the brain was performed utilizing various T1 and T2-weighted sequences in the axial, sagittal, and coronal planes. Contrast-enhanced sequences were acquired following the administration of 7.5 cc of Gadavist. FINDINGS: Note is made of a 6 mm focus of restricted diffusion within the inferior right cerebellar hemisphere on diffusion-weighted sequence image 6 of 32. This is hypointense on the ADC map. There are numerous additional smaller foci of restricted diffusion. The majority of these are punctate. These represent small acute infarcts. There is no hemorrhage. There is no mass effect. Ventricular system is unremarkable. Basal cisterns are patent. There are no extra-axial collections. White matter T2 hyperintense foci are unchanged since previous MRI of August 24, 2025 represent small vessel disease. There is no intracranial mass or pathologic enhancement. There are no calvarial lesions. There is no evidence for sinusitis. There is no mastoid fluid. IMPRESSION: Multiple small foci of restricted diffusion, the largest of which is a 6 mm inferior right cerebellar focus. These are consistent with small acute infarcts and suggest an embolic etiology. No mass effect. No hemorrhage. The findings will be called/faxed to the ordering provider at time of dictation. ACT 112: Negative or not required by law. Electronically signed by: Guillaume Borrego M.D. 09/26/2025 10:06 AM Medications Administered Home Medications Medication Instructions Recorded Confirmed Last Taken albuterol sulfate 90 mcg/actuation 2 inh inhalation Q4H PRN Shortness 09/26/25 09/26/25 Unknown breath activated powder inhaler Of Breath Or Wheezing aspirin 81 mg tablet,delayed 81 mg PO DAILY 09/26/25 09/26/25 Unknown release atorvastatin 20 mg tablet 20 mg PO DAILY 09/26/25 09/26/25 Unknown azelastine 137 mcg (0.1 %) nasal 2 spray intranasal QPM 09/26/25 09/26/25 Unknown spray bimatoprost 0.01 % eye drops 1 drp OPB HS 09/26/25 09/26/25 Unknown (Lumigan) coenzyme Q10 100 mg capsule 100 mg PO DAILY 09/26/25 09/26/25 Unknown diclofenac sodium 1 % topical gel 2 g topical TID PRN Pain 09/26/25 09/26/25 Unknown (Voltaren Arthritis Pain) fluticasone 250 mcg-salmeterol 50 1 inh inhalation BID 09/26/25 09/26/25 Unknown mcg/dose blistr powdr for inhalation (Wixela Inhub) fluticasone propionate 50 2 spray intranasal DAILY 09/26/25 09/26/25 Unknown mcg/actuation nasal spray,suspension guaifenesin 600 mg tablet, 600 mg PO Q12H PRN Congestion 09/26/25 09/26/25 Unknown extended release 12 hr (Mucinex) ketoconazole 2 % topical cream 1 applic topical DAILY PRN Rash 09/26/25 09/26/25 Unknown levothyroxine 75 mcg tablet 75 mcg PO DAILY 09/26/25 09/26/25 Unknown losartan 50 mg tablet 50 mg PO DAILY 09/26/25 09/26/25 Unknown magnesium oxide 400 mg (241.3 mg 400 mg PO DAILY 09/26/25 09/26/25 Unknown magnesium) tablet metoprolol succinate 25 mg 25 mg PO DAILY 09/26/25 09/26/25 Unknown tablet,extended release 24 hr montelukast 10 mg tablet 10 mg PO DAILY 09/26/25 09/26/25 Unknown multivitamin with minerals 1 tab PO DAILY 09/26/25 09/26/25 Unknown nystatin 100,000 unit/gram topical 1 applic topical BID PRN Rash 09/26/25 09/26/25 Unknown cream oxybutynin chloride 10 mg 10 mg PO DAILY 09/26/25 09/26/25 Unknown tablet,extended release 24 hr pantoprazole 40 mg tablet,delayed 40 mg PO DAILY 09/26/25 09/26/25 Unknown release polyethylene glycol 3350 17 gram 17 g PO DAILY PRN Constipation 09/26/25 09/26/25 Unknown oral powder packet potassium chloride 20 mEq 20 meq PO BID 09/26/25 09/26/25 Unknown tablet,extended release(part/cryst) torsemide 20 mg tablet 20 mg PO DAILY 09/26/25 09/26/25 Unknown vitamin B complex-vitamin C-folic 1 tab PO DAILY 09/26/25 09/26/25 Unknown acid 1 mg tablet Active Medications Generic Name Dose Route Start Last Admin Trade Name Freq PRN Reason Stop Dose Admin Aspirin 81 mg 09/26/25 09:00 09/26/25 08:41 Aspirin 81 Mg Ectab PO 10/26/25 08:59 81 mg DAILY ALYSA Administration Atorvastatin Calcium 80 mg 09/26/25 09:00 09/26/25 08:40 Atorvastatin 40 Mg Tab PO 10/26/25 08:59 80 mg QAM ALYSA Administration Clopidogrel Bisulfate 75 mg 09/26/25 09:00 09/26/25 08:41 Clopidogrel Bisulfate 75 Mg Tab PO 10/26/25 08:59 75 mg QAM ALYSA Administration Fluticasone Propionate 2 sprays 09/26/25 09:00 09/26/25 08:42 Fluticasone Propionate Na Spr 16 Gm Btl NA 10/26/25 08:59 2 sprays DAILY ALYSA Administration Fluticasone/Vilanterol 1 puffs 09/26/25 09:00 09/26/25 08:42 Fluticasone/Vilanterol 200/25mcg 14 Puffs/Inhaler INH 10/26/25 08:59 1 puffs DAILY ALYSA Administration Sodium Chloride 1,000 mls @ 80 mls/hr 09/26/25 05:26 09/26/25 06:26 Nss IV 09/29/25 05:25 80 mls/hr .[id number] ALYSA Administration Levothyroxine Sodium 75 mcg 09/26/25 06:30 09/26/25 06:43 Levothyroxine Sodium 75 Mcg Tablet PO 10/26/25 06:29 Not Given DAILYBB ALYSA Magnesium Oxide 400 mg 09/26/25 09:00 09/26/25 08:40 Magnesium Oxide 400 Mg Tab PO 10/26/25 08:59 400 mg DAILY ALYSA Administration Metoprolol Succinate 25 mg 09/26/25 09:00 09/26/25 08:40 Metoprolol Succ 25mg Ext Rel Tab PO 10/26/25 08:59 25 mg DAILY ALYSA Administration Montelukast Sodium 10 mg 09/26/25 09:00 09/26/25 08:40 Montelukast Sodium 10 Mg Tablet PO 10/26/25 08:59 10 mg DAILY ALYSA Administration Multivitamins/Minerals 1 tab 09/26/25 09:00 09/26/25 08:40 Cerovite Adv Formula Tab PO 10/26/25 08:59 1 tab DAILY ALYSA Administration Oxybutynin Chloride 10 mg 09/26/25 09:00 09/26/25 08:41 Oxybutynin Chloride Xl 5 Mg Tabcr PO 10/26/25 08:59 10 mg DAILY ALYSA Administration Pantoprazole Sodium 40 mg 09/26/25 09:00 09/26/25 08:41 Pantoprazole 40 Mg Tab PO 10/26/25 08:59 40 mg DAILY ALYSA Administration Potassium Chloride 20 meq 09/26/25 09:00 09/26/25 09:55 Potassium Chloride Crtab 20 Meq Tabcr PO 10/26/25 08:59 20 meq BID ALYSA Administration Torsemide 20 mg 09/26/25 09:00 09/26/25 08:41 Torsemide 20 Mg Tab PO 10/26/25 08:59 20 mg DAILY ALYSA Administration Vitamin B Complex 1 tab 09/26/25 09:00 09/26/25 08:40 Vitamin B Complex Tab PO 10/26/25 08:59 1 tab DAILY ALYSA Administration
--- NOTE | 2025-09-26 13:58 | Communication Note ---
Date of Service: September 26, 2025 evaluated at bedside with son Son adamant for anticoagulations stating "I'd rather her fall and bleed out than stroke like this," patient agrees with sons assessment. Discussed risks given fall history and prior SDH Son reports he is seeking to have her placed in separator [employer] care Exam revealed alert woman with expressive aphasia, generalized tremor, and right side weakness Ms. Palacios is an 85-year-old female with past medical history significant for type 2 diabetes, hypertension, hypothyroidism, dyslipidemia, sleep apnea, mild persistent asthma, paroxysmal atrial fibrillation, CKD stage III, chronic CHF, CAD s/p LAD Stent, Hypertension, GERD, Stress Female Incontinence, Degenerative Disc Disease, History of Left-Sided Weakness from Stroke, History of Expressive Aphasia, Depression, History of Subdural Hematoma admitted for strokelike symptoms and appears to have had a cardioembolic stroke. Patient with SDH 08/2024 and taken off of eliquis at that time. Patient is a [id number] iso PAF #Cardioembolic stroke, right cerebellum last known normal 9am 09/25 expressive aphasia noted, RUE weakness, weakness noted CT head no acute findings CTA head and neck no acute findings MRI with right cerebellar stroke, appears embolic per review of report Continue on telemetry Speech evaluation ordered Son requests eliquis to be resumed, risks explained -Discussed with neurology, agree that there are risks and if it did happen it can and may likely happen again -Son requested Cardiology consult to discuss -Dose given now of eliquis after long discussion of risks and benefits -Son states plan to place patient in longer term care discontinue asa while on eliquis, continue plavix continue Lipitor to 80 mg daily Cardiology consult possible referral as op for watchman device #Elevated troponin likely demand iso stroke/poor po/like PAF event trend troponin no active signs of acs at this time #abnormal UA, possible UTI On Rocephin will follow cultures #Ambulatory dysfunction PT OT when stable #Paroxysmal atrial fibrillation On metoprolol No longer anticoagulation secondary to 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 #Chronic heart failure preserved ejection fraction Continue torsemide with potassium supplement Monitor for volume overload #Hypertension Continue Toprol and torsemide Hold losartan for permissive hypertension Will monitor #CAD status post LAD stent in 1999 On aspirin statin and beta-monico #Hypothyroidism On Synthyroid #History of diabetes not not on meds Not on meds Will follow HbA1c levels #Stress urinary incontinence On Ditropan #Asthma Currently stable Continue home inhalers #GERD On Protonix DVT prophylaxis eliquis for now per son request after risk/benefits conversation Disposition Telemetry Full code.
[2025-09-26 16:01] LABS: A calco-baum cmplx NotReported Not Detected (NotDetected); Bact fragilis Not Reported Not Detected (NotDetected); Blood Culture Id Panel See PCR Comment (NotDetected); C auris Not Reported Not Detected (NotDetected); Calbicans Not Reported Not Detected (NotDetected); Candida glabrata Not Reported Not Detected (NotDetected); Candida krusei Not Reported Not Detected (NotDetected); Cneoformans/gatti Not Reported Not Detected (NotDetected); Cparapsilosis Not Reported Not Detected (NotDetected); Ctropicalis Not Reported Not Detected (NotDetected); E cloacae compx Not Reported Not Detected (NotDetected); Efaecalis Not Reported Not Detected (NotDetected); Efaecium Not Reported Not Detected (NotDetected); Enterobacterales Not Reported Not Detected (NotDetected); Escherichia coli Not Reported Not Detected (NotDetected); H influenzae Not Reported Not Detected (NotDetected); K aerogenes Not Reported Not Detected (NotDetected); Koxytoca Not Reported Not Detected (NotDetected); Kpneumoniae grp Not Reported Not Detected (NotDetected); Lmonocyt Not Reported Not Detected (NotDetected); N meningitidis Not Reported Not Detected (NotDetected); P aeruginosa Not Reported Not Detected (NotDetected); Proteus spp Not Reported Not Detected (NotDetected); Salmonella spp Not Reported Not Detected (NotDetected); Staph lugdunensis Not Reported Not Detected (NotDetected); Staph spp. Not Reported DETECTED (NotDetected); Staphaureus Not Reported Not Detected (NotDetected); Staphepi Not Reported DETECTED (NotDetected); Stenmaltophilia Not Reported Not Detected (NotDetected); Strep agal(GrpB) Not Reported Not Detected (NotDetected); Strep pneum Not Reported Not Detected (NotDetected); Strep pyog (GrpA) Not Reported Not Detected (NotDetected); Strep spp Not Reported Not Detected (NotDetected)
--- NOTE | 2025-09-26 16:18 | Cardiology Consultation ---
Date of Consultation September 26, 2025 Assessment & Plan (1) Acute ischemic stroke: (2) Weakness: (3) Elevated troponin: (4) PAF (paroxysmal atrial fibrillation): Plan Patient is an 85 year old female admitted with right sided weakness and difficulty with speech, consistent and concerning for recurrent CVA. Head and neck CTA initially were unremarkable. Brain MRI revealed multiple areas of acute infarct in the right cerebellum. Neurology consulted. 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 Unfortunately she sustained a fall in Sep 2024 with subdural hematoma and Eliquis was discontinued. Now presenting with recurrent CVA. Appreciate neurology recommendations. Patient had prior MELANIE with bubble study in 2023 without findings of interatrial shunt. No known recurrence of afib, but findings on MRI are concerning for embolic CVA from possible afib. Family was not present at time of cardiology evaluation. Per family and hospitalist discussion, son was fairly adamant about patient resuming Eliquis for anticoagulation to prevent further strokes. Risks/benefits were discussed by hospitalist and risks/benefits were also discussed with son and neurology per notes. Her prior subdural hematoma occurred after a traumatic fall (not spontaneous). After discussion with her hospitalist, will resume anticoagulation with Eliquis 5 mg BID, first dose tonight. Stop plavix for now (just started today by neurology while anticoagulation risks/benefits were being discussed). Continue ASA 81 mg Can discuss with neurology if they would prefer plavix vs ASA going forward. Per neurology - CT of the head was recommended after initiation of Eliquis to verify no hemorrhagic conversion. This will be arranged tomorrow per hospitalist after the first 2 doses of Eliquis. Patient also found to have minimally elevated troponin. No acute EKG changes No chest pain or dyspnea reported. Likely demand ischemia in setting of acute CVA. Continue ASA, statin, metoprolol, torsemide and potassium. She has a history of HFpEF, but appears euvolemic currently. Will need PT/OT evaluations. Consider SNF on discharge. Case discussed with Dr. Chandler I spent a total of 60 minutes on the date of service in preparation, delivery, and documentation of the care provided to this patient, excluding any time spent in the performance of separately billed services. Francheska Ponce PA-C Department of Cardiology, [facility] This chart was completed in part utilizing Speech Voice Recognition Software. Grammatical errors, random word insertions, pronoun errors, and incomplete sentences are an occasional consequence of this system due to software limitations, ambient noise, and hardware issues. Any formal questions or concerns about the content, text, or information contained within the body of this dictation should be directly addressed to the provider for clarification. Supervising Physician Co-Signing Physician Notes I have personally performed a history and physical examination on the patient. I have reviewed the advance practitioner's documentation, and I agree with, and take responsibility for the plan of care. 85-year-old female with history of paroxysmal atrial fibrillation 2011 and prior CVA presents to the emergency department with new right sided weakness and difficulties with speech. MRI of the brain demonstrated multiple small punctate areas of acute infarction of the right cerebellum concerning for embolic phenomenon. Suffered a traumatic subdural hematoma last year with discontinuation of Eliquis. Cardiology consulted discussed possible resumption of oral anticoagulation. Patient able to answer yes and no questions and some simple questions at bedside however expressive aphasia noted. Son is not present at bedside. Risk versus benefit of oral anticoagulation with REVIEWED with patient. She is agreeable to restart Eliquis at this time. Per neurology, CT of the head recommended after initiation of Eliquis to verify no hemorrhagic transformation. Continue statin, metoprolol, torsemide, and potassium as ordered. Telemetry monitoring during hospitalization. I spent a total of 35 minutes on the date of service in preparation, delivery, and documentation of the care provided to this patient, excluding any time spent in the performance of separately billed services. Kris Chandler DO, [facility] History of Present Illness Reason for Consultation: Acute embolic CVA Requesting Physician: Mitali Fish Attending Physician: Dr. Chandler History of Present Illness Patient is a 85 year old female admitted to [facility] with stroke like symptoms, difficulty speech, right sided weakness, that started yesterday. Head and neck CTA were unremarkable. Brain MRI this morning demonstrating multiple small foci of the inferior right cerebellar focus. Per report - these are consistent with small acute infacts and suggest embolic etiology. No hemorrhage. Neurology consulted via telemedicine. Initially recommended plavix for 3 weeks. However, with history of PAF (no recent or known recurrence), there was discussion about resuming Eliquis and risks/benefits. Per notes, there was long discussion with patient's son and the hospitalist and neurologist. Son felt strongly about wishing to resume the Eliquis and understanding the bleeding risk with falls. Her prior subdural hematoma was traumatic in nature after a fall. Not spontaneous. Cardiology consulted to further discuss anticoagulation. Son was not present at time of evaluation. Patient with underlying speech impairment, aphasia. Mildly elevated troponin noted during admission. 21 - 34 - 137. No acute ischemic EKG changes noted. She denied chest pain or SOB at time of evaluation. Full review of systems not able to be performed. She has a complicated history 1. Paroxysmal AFIB (diagnosed in 2011; not on AC). No known recurrence. Eliquis initiated after Brain MRI in 11/2023 demonstrating small embolic infarcts. Unfortunately in 09/2024 patient sustained a fall with subdural hematoma. Eliquis discontinued. [id number] score 9 (age 1, female, CHF, HTN, history of CVA, CAD, DM) 2. Multiple falls 3. Negative Bubble study with MELANIE Nov 2023 at time of recurrent stroke 4. Coronary artery disease - CATH (1999) at [facility] with remote PCI stent 5. Diastolic dysfunction 6. Hypertension 7. Dyslipidemia 8. Type 2 diabetes mellitus 9. DEMARIO (on CPAP) Allergies Allergy/AdvReac Type Severity Reaction Status Date / Time paroxetine Allergy Severe ANAPHYLAXIS Verified 08/20/25 21:05 mold Allergy Intermediate asthma Verified 08/20/25 21:05 symptoms pollen extracts Allergy Intermediate asthma Verified 08/20/25 21:05 symptoms Penicillins Allergy Mild BLISTERED Verified 08/20/25 21:05 HANDS grapefruit Allergy Unknown POSITIVE Verified 08/20/25 21:05 ALLERGY TEST/BRONCHITIS vasquez AdvReac Intermediate gas and Verified 08/20/25 21:05 bloating with consuption of green or kidneys beans broccoli AdvReac Intermediate GAS Verified 08/20/25 21:05 cabbage AdvReac Intermediate "Brassica Verified 08/20/25 22:44 oleracea" -- gas/bloating cauliflower AdvReac Intermediate GAS Verified 08/20/25 21:05 crab AdvReac Intermediate diarrhea Verified 08/20/25 21:05 green vasquez AdvReac Intermediate GAS/BLOATIN Verified 08/20/25 21:05 G peanut AdvReac Intermediate GAS/BLOATIN Verified 08/20/25 21:05 G peas AdvReac Intermediate GAS/BLOATIN Verified 08/20/25 21:05 G orange AdvReac Unknown POSITIVE Verified 08/20/25 21:05 ALLERGY TEST/BRONCHITIS Home Medications Medication Instructions Recorded Confirmed Type albuterol sulfate 90 mcg/actuation 2 inh inhalation Q4H PRN Shortness 09/26/25 09/26/25 History breath activated powder inhaler Of Breath Or Wheezing aspirin 81 mg tablet,delayed 81 mg PO DAILY 09/26/25 09/26/25 History release atorvastatin 20 mg tablet 20 mg PO DAILY 09/26/25 09/26/25 History azelastine 137 mcg (0.1 %) nasal 2 spray intranasal QPM 09/26/25 09/26/25 History spray bimatoprost 0.01 % eye drops 1 drp OPB HS 09/26/25 09/26/25 History (Lumigan) coenzyme Q10 100 mg capsule 100 mg PO DAILY 09/26/25 09/26/25 History diclofenac sodium 1 % topical gel 2 g topical TID PRN Pain 09/26/25 09/26/25 History (Voltaren Arthritis Pain) fluticasone 250 mcg-salmeterol 50 1 inh inhalation BID 09/26/25 09/26/25 History mcg/dose blistr powdr for inhalation (Wixela Inhub) fluticasone propionate 50 2 spray intranasal DAILY 09/26/25 09/26/25 History mcg/actuation nasal spray,suspension guaifenesin 600 mg tablet, 600 mg PO Q12H PRN Congestion 09/26/25 09/26/25 History extended release 12 hr (Mucinex) ketoconazole 2 % topical cream 1 applic topical DAILY PRN Rash 09/26/25 09/26/25 History levothyroxine 75 mcg tablet 75 mcg PO DAILY 09/26/25 09/26/25 History losartan 50 mg tablet 50 mg PO DAILY 09/26/25 09/26/25 History magnesium oxide 400 mg (241.3 mg 400 mg PO DAILY 09/26/25 09/26/25 History magnesium) tablet metoprolol succinate 25 mg 25 mg PO DAILY 09/26/25 09/26/25 History tablet,extended release 24 hr montelukast 10 mg tablet 10 mg PO DAILY 09/26/25 09/26/25 History multivitamin with minerals 1 tab PO DAILY 09/26/25 09/26/25 History nystatin 100,000 unit/gram topical 1 applic topical BID PRN Rash 09/26/25 09/26/25 History cream oxybutynin chloride 10 mg 10 mg PO DAILY 09/26/25 09/26/25 History tablet,extended release 24 hr pantoprazole 40 mg tablet,delayed 40 mg PO DAILY 09/26/25 09/26/25 History release polyethylene glycol 3350 17 gram 17 g PO DAILY PRN Constipation 09/26/25 09/26/25 History oral powder packet potassium chloride 20 mEq 20 meq PO BID 09/26/25 09/26/25 History tablet,extended release(part/cryst) torsemide 20 mg tablet 20 mg PO DAILY 09/26/25 09/26/25 History vitamin B complex-vitamin C-folic 1 tab PO DAILY 09/26/25 09/26/25 History acid 1 mg tablet Patient History Medical History Fall Hyponatremia Family History Father CHF (congestive heart failure) Mother Cancer Social History Smoking Status: Never smoker Second Hand Exposure: No; Do You Dip or Chew Tobacco: No; Hx Alcohol Use: No Hx Substance Use: No Preferred Language: Austrian Communication Ability: Impaired Senior Architect Required: No Beliefs That Will Affect Care: None marital status: Life Partner Current Living Situation: Significant Other Current Living Situation Comment: s/o Feels Safe at Home: Yes Safety Concerns: Feels Safe At This Time Assistive Devices: Walker and Wheelchair Review of Systems Review of Systems: Unobtainable due to cognitive status (And due to aphasia) Physical Exam Constitutional: + ill appearing and + thin; no acute dis tress Neck: normal visual inspection Respiratory: normal respiratory effort; no labored breathing Auscultation: + diminished lung sounds; no rales and no rhonchi Cardiovascular: Rate/Rhythm: regular rate and regular rhythm Heart Sounds: + murmur (II/ systolic murmur) Gastrointestinal (Abdomen): normal bowel sounds, soft, nontender, no hepatosplenomegaly Neurologic: awake Speech / Cognition: + expressive aphasia Results & Data Vital Signs (Past 12 Hours) Vital Signs Temp Pulse Pulse Resp BP BP BP 09/26/25 15:17 38.0 C H 85 18 147/71 H 09/26/25 14:00 89 09/26/25 11:12 37.2 C 82 18 131/72 09/26/25 07:51 70 09/26/25 07:31 36.9 C 76 18 134/84 09/26/25 05:47 82 09/26/25 04:50 37.4 C 79 20 130/73 09/26/25 04:22 85 19 120/54 L 09/26/25 04:00 74 20 120/54 L Pulse Ox O2 Del Method 09/26/25 15:17 92 Room Air 09/26/25 14:00 09/26/25 11:12 95 Room Air 09/26/25 07:51 09/26/25 07:31 98 Room Air 09/26/25 05:47 09/26/25 04:50 90 Room Air 09/26/25 04:22 98 Room Air 09/26/25 04:00 95 Room Air Laboratory Results Cardiac Enzymes 09/25/25 09/26/25 09/26/25 Range/Units 23:09 01:48 11:26 AST 15 (13-39) U/L Troponin I High Sens 21.4 H 34.4 H D 137.2 H* D (0-14) pg/ml CBC 09/25/25 Range/Units 23:00 WBC 12.16 H (4.8-10.8) K/ul RBC 3.91 L (4.20-5.40) M/uL Hgb 11.6 L (12.0-16.0) g/dl Hct 35.9 L (37.0-47.0) % Plt Count 273 (130-400) K/uL Neut # (Auto) 9.35 H (1.40-6.50) K/uL Lymph # (Auto) 1.05 L (1.20-3.40) K/uL [place] # (Auto) 1.65 H (0.11-0.59) K/uL Eos # (Auto) 0.03 (0.00-0.50) K/uL Baso # (Auto) 0.02 (0.00-0.20) K/uL Comprehensive Metabolic Panel 09/25/25 Range/Units 23:09 Sodium 133 L (136-145) mmol/L Potassium 4.1 (3.5-5.1) mmol/L Chloride 99 (98-107) mmol/L Carbon Dioxide 28 (21-32) mmol/L BUN 21 (6-23) mg/dl Creatinine 0.99 (0.6-1.2) mg/dl Glucose 155 H (70-99(Fasting)) mg/dl Calcium 9.4 (8.6-10.3) mg/dl AST 15 (13-39) U/L ALT 13 (7-52) U/L Alkaline Phosphatase 73 (34-104) U/L Total Protein 7.3 (6.0-8.3) gm/dl Albumin 3.5 (3.4-5.0) gm/dl Intake and Output 09/26/25 09/26/25 09/26/25 06:59 14:59 22:59 Intake Total 50 / 50 Output Total 0 / 0 350 / 650 300 / 650 Balance 50 / 50 -350 / -650 -300 / -650 Intake: IV 50 / 50 cefTRIAXone SODIUM 2,000 mg In 50 / 50 50 ml @ 100 mls/hr IV NOW STA Rx#:[id number] Output: Urine 0 / 0 Urine Amount (Catheter) 350 / 650 300 / 650 External 350 / 650 300 / 650 Other: # Unmeasured Voids 2 Weight 73.5 kg Weight Measurement Method Built in [facility] Diagnostic Findings Telemetry reviewed: NSR in the 80's. EKG reviewed from admission: NSR, no acute ischemic changes. Chest X-Ray 09/25/25 22:40 Exam(s): XR CXR 1 VIEW EXAM: XR Chest, 1 View CLINICAL HISTORY: Reason for exam: weakness. TECHNIQUE: Frontal view of the chest. COMPARISON: 09/18/2025 FINDINGS: Lungs: Unremarkable. No consolidation. Pleural space: Unremarkable. No pneumothorax. Heart: Unremarkable. No cardiomegaly. Mediastinum: Unremarkable. Normal mediastinal contour. Bones/joints: Unremarkable. No acute fracture. IMPRESSION: Normal chest x-ray. Electronically signed by: Bowen Mendes MD 09/26/25 00:[address] 09/25/25 22:42 EXAM: CT head/brain wo con CLINICAL HISTORY: neuro deficit, acute stroke suspected TECHNIQUE: Multiple axial images were obtained from the skull base to the vertex without contrast. The CT scan was performed according to ALARA (as low as reasonably achievable) principles. COMPARISON: 09/18/2025 11:33:14 MED SPECIALIST. FINDINGS: There is cerebral atrophy. No evidence of space-occupying lesion, hemorrhage, edema, mass effect, midline shift, extra-axial collection, or hydrocephalus is noted. The basal cisterns are symmetric and normal in size and configuration. There are scattered periventricular hypodensities, as can be seen with chronic microvascular ischemic changes. The hernandez-white matter differentiation is preserved. The visualized paranasal sinuses and mastoid air cells are well aerated. The orbital contents are within normal limits. The bony structures are intact. IMPRESSION: 1. No evidence of acute intracranial abnormality is demonstrated. 2. Chronic microvascular ischemic changes?stable. 3. Cerebral atrophy?stable. 4. CT scan is negative for large territorial ischemic or hemorrhagic stroke. 5. Non-contrast CT can be negative in the setting of hyperacute infarct or small ischemic infarct, and further evaluation with diffusion-weighted MRI is recommended as clinically appropriate. Electronically signed by Kumar Whyte 09-26-2025 01:12 AM Head CTA 09/25/25 22:42 EXAM: CT angio head w con CLINICAL HISTORY: neuro deficit, acute stroke suspected TECHNIQUE: A contrast-enhanced, thin-slice CT angiography scan of the cerebral vessels was performed with intravenous contrast. Angiographic images were processed, and 3D MIP images were acquired for interpretation. Contiguous axial images were obtained. Reformatted coronal and sagittal images were also reviewed. If IV contrast material had not been administered, the likelihood of detecting abnormalities relevant to the patient's condition would have been substantially decreased. The CT scan was performed according to ALARA (as low as reasonably achievable) principles. COMPARISON: None. 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 The bilateral internal carotid arteries show normal course, calibre, and opacification in the canalicular and cavernous parts. Their division into the anterior cerebral artery and middle cerebral artery is defined. The A1, A2, M1, and M2 segments are normal on both sides. Bilateral vertebral arteries are seen to unite to form the basilar artery in a normal fashion. The basilar artery shows normal course, caliber, and opacification. Its division into the posterior cerebral arteries is defined. Bilateral P1 and P2 segments are normal. The visualized venous structures show normal opacification. There is no evidence of intracranial aneurysm or arteriovenous malformation. IMPRESSION: No evidence of stenosis or aneurysm. No evidence of dissection. Electronically signed by Kumar Whyte 09-26-2025 12:59 AM Neck CTA 09/25/25 22:42 EXAM: CT angio neck with con CLINICAL HISTORY: neuro deficit, acute stroke suspected TECHNIQUE: Contrast-enhanced thin-slice CT angiography scan of the carotid vessels was performed with intravenous contrast. Angiographic images were processed, and 3D MIP images were acquired for interpretation. Contiguous axial images were obtained. Reformatted coronal and sagittal images were also reviewed. If intravenous contrast material had not been administered, the likelihood of detecting abnormalities relevant to the patient's condition would have been substantially decreased. The CT scan was performed according to ALARA (as low as reasonably achievable) principles. COMPARISON: 13:01:29 MED SPECIALIST FINDINGS: The included great vessels of the aortic arch are grossly unremarkable. The common carotid artery, carotid bulb, internal carotid artery, and origin of the external carotid artery are well opacified. The vertebral arteries are well opacified. The jugular veins are well opacified. The included lung apices are grossly unremarkable. The thyroid gland appears unremarkable. IMPRESSION: No evidence of stenosis or aneurysm. No evidence of dissection. No other new interval abnormality since prior study. Electronically signed by Kumar Whyte 09-26-2025 12:59 AM Brain MRI 09/26/25 05:26 MRI OF THE BRAIN COMBO CLINICAL HISTORY: Stroke like symptoms. Hypertrophy weakness. Speech difficulty. COMPARISON STUDY: MRI of the brain August 24, 2025. Head CT and CTA of the head performed earlier today. TECHNIQUE: MRI of the brain was performed utilizing various T1 and T2-weighted sequences in the axial, sagittal, and coronal planes. Contrast-enhanced sequences were acquired following the administration of 7.5 cc of Gadavist. FINDINGS: Note is made of a 6 mm focus of restricted diffusion within the inferior right cerebellar hemisphere on diffusion-weighted sequence image 6 of 32. This is hypointense on the ADC map. There are numerous additional smaller foci of restricted diffusion. The majority of these are punctate. These represent small acute infarcts. There is no hemorrhage. There is no mass effect. Ventricular system is unremarkable. Basal cisterns are patent. There are no extra-axial collections. White matter T2 hyperintense foci are unchanged since previous MRI of August 24, 2025 represent small vessel disease. There is no intracranial mass or pathologic enhancement. There are no calvarial lesions. There is no evidence for sinusitis. There is no mastoid fluid. IMPRESSION: Multiple small foci of restricted diffusion, the largest of which is a 6 mm inferior right cerebellar focus. These are consistent with small acute infarcts and suggest an embolic etiology. No mass effect. No hemorrhage. The findings will be called/faxed to the ordering provider at time of dictation. ACT 112: Negative or not required by law. Electronically signed by: Guillaume Borrego M.D. 09/26/2025 10:06 AM Prior echo reviewed: Normal LVEF 60-65% LA is moderately dilated Moderate to severe MAC Mild MR Mild TR Moderate pulm hypertension Diastolic dysfunction, grade II ECHO 02/09/24 The ventricular wall motion is normal Left ventricular systolic function is normal LVEF = 65-70% Aortic valve sclerosis mild, without significant aortic valvular stenosis There is moderate posterior mitral annular calcification Grade I diastolic dysfunction (abnormal relaxation pattern) Interatrial septum was intact without evidence of interatrial shunt as demonstrated with the administration of agitated saline contrast at the time of transesophageal echocardiogram 12/08/2023. Repeat bubble study was not completed. Medications Administered Current Inpatient Medications Albuterol (Albuterol Hfa Inhaler 8.5 Gm) 2 puffs INH Q4H PRN PRN Reason: Shortness Of Breath Or Wheezing Stop: 10/26/25 05:50 Apixaban (Apixaban 5 Mg Tablet) 5 mg PO BID ALYSA Stop: 10/26/25 20:59 Aspirin (Aspirin 81 Mg Ectab) 81 mg PO DAILY ALYSA Stop: 10/26/25 08:59 Last Admin: 09/26/25 08:41 Dose: 81 mg Atorvastatin Calcium (Atorvastatin 40 Mg Tab) 80 mg PO QAM ALYSA Stop: 10/26/25 08:59 Last Admin: 09/26/25 08:40 Dose: 80 mg Azelastine HCl (Azelastine Hcl 0.1% Nasal 200 Sprays/27,400 Mcg Btl) 2 sprays NA QPM ALYSA Stop: 10/26/25 20:59 Bimatoprost (Bimatoprost 0.01% Op Soln 2.5 Ml Btl) 1 drops OPB HS ALYSA Stop: 10/26/25 20:59 Diclofenac Sodium (Diclofenac Sod 1% Gel 100 Gm Tube) 2 gm EXT TID PRN; Protocol PRN Reason: Pain Stop: 10/26/25 05:25 Fluticasone Propionate (Fluticasone Propionate Na Spr 16 Gm Btl) 2 sprays NA DAILY ALYSA Stop: 10/26/25 08:59 Last Admin: 09/26/25 08:42 Dose: 2 sprays Fluticasone/Vilanterol (Fluticasone/Vilanterol 200/25mcg 14 Puffs/Inhaler) 1 puffs INH DAILY ALYSA Stop: 10/26/25 08:59 Last Admin: 09/26/25 08:42 Dose: 1 puffs Guaifenesin (Guaifenesin 600 Mg Tabcr) 600 mg PO Q12H PRN PRN Reason: Congestion Stop: 10/26/25 05:25 Sodium Chloride (Nss) 1,000 mls @ 80 mls/hr IV .[id number] [facility] Stop: 09/29/25 05:25 Last Admin: 09/26/25 06:26 Dose: 80 mls/hr Ceftriaxone Sodium (Rocephin) 2,000 mg in 50 mls @ 100 mls/hr IV Q24H [facility] Stop: 10/01/25 22:29 Ketoconazole (Ketoconazole 2% Cr 15 Gm Tube) 1 appln EXT DAILY PRN PRN Reason: Rash Stop: 10/06/25 05:25 Levothyroxine Sodium (Levothyroxine Sodium 75 Mcg Tablet) 75 mcg PO DAILYBB ALYSA Stop: 10/26/25 06:29 Last Admin: 09/26/25 06:43 Dose: Not Given Magnesium Oxide (Magnesium Oxide 400 Mg Tab) 400 mg PO DAILY ALYSA Stop: 10/26/25 08:59 Last Admin: 09/26/25 08:40 Dose: 400 mg Metoprolol Succinate (Metoprolol Succ 25mg Ext Rel Tab) 25 mg PO DAILY [facility] Stop: 10/26/25 08:59 Last Admin: 09/26/25 08:40 Dose: 25 mg Miscellaneous Information (Pharmacist Discharge Med Rec Consult) 1 each N/A UD PRN PRN Reason: Consult Stop: 10/26/25 05:25 Montelukast Sodium (Montelukast Sodium 10 Mg Tablet) 10 mg PO DAILY [facility] Stop: 10/26/25 08:59 Last Admin: 09/26/25 08:40 Dose: 10 mg Multivitamins/Minerals (Cerovite Adv Formula Tab) 1 tab PO DAILY ALYSA Stop: 10/26/25 08:59 Last Admin: 09/26/25 08:40 Dose: 1 tab Nitroglycerin (Nitroglycerin Sl 0.4 Mg/Tab Tab) 0.4 mg SL Q5M PRN PRN Reason: Chest Pain Stop: 10/26/25 05:25 Nystatin (Nystatin Cr 15 Gm Tube) 1 appln EXT BID PRN PRN Reason: Rash Stop: 10/26/25 05:25 Oxybutynin Chloride (Oxybutynin Chloride Xl 5 Mg Tabcr) 10 mg PO DAILY ALYSA Stop: 10/26/25 08:59 Last Admin: 09/26/25 08:41 Dose: 10 mg Pantoprazole Sodium (Pantoprazole 40 Mg Tab) 40 mg PO DAILY ALYSA Stop: 10/26/25 08:59 Last Admin: 09/26/25 08:41 Dose: 40 mg Polyethylene Glycol (Polyethylene (Miralax) 17 Gm Pack) 17 gm PO DAILY PRN PRN Reason: Constipation Stop: 10/26/25 05:25 Potassium Chloride (Potassium Chloride Crtab 20 Meq Tabcr) 20 meq PO BID ALYSA Stop: 10/26/25 08:59 Last Admin: 09/26/25 09:55 Dose: 20 meq Torsemide (Torsemide 20 Mg Tab) 20 mg PO DAILY ALYSA Stop: 10/26/25 08:59 Last Admin: 09/26/25 08:41 Dose: 20 mg Vitamin B Complex (Vitamin B Complex Tab) 1 tab PO DAILY ALYSA Stop: 10/26/25 08:59 Last Admin: 09/26/25 08:40 Dose: 1 tab PG Care Time/CCT Total # of Minutes Spent Total Time Spent with Patient: Total time spent is greater than 50% in coordination of care (as documented) at patient's floor/unit and/or counseling patient: 60 minutes Coding Level of Care Code 52888 INT INP/OBS CARE 3/75MIN Diagnoses Acute ischemic stroke I63.9 Weakness R53.1 Elevated troponin R79.89 PAF (paroxysmal atrial fibrillation) I48.0
--- NOTE | 2025-09-26 17:24 | XCELERA ---
[id number]
[2025-09-26 17:36] LABS: Staphylococcus spp. DETECTED (NotDetected); mecAC Resistant Gene DETECTED (NotDetected)
[2025-09-26 17:37] LABS: Staphylococcus epidermidis DETECTED (NotDetected)
[2025-09-26] MEDS ORDERED: VANCOMYCIN CONSULT ACTIVE PRN (17:45)
[2025-09-26] MEDS: VANCOMYCIN HCL 1,500 MG in SODIUM CHLORIDE 0.9% 500 ML IV ONE (18:29)
[2025-09-26] MEDS: APIXABAN 5 MG TABLET PO SCH (19:46)
[2025-09-26] MEDS: AZELASTINE HCL 0.1% NASAL 200 SPRAYS/27,400 MCG BTL SCH (19:46)
[2025-09-26] MEDS: BIMATOPROST 0.01% OP SOLN 2.5 ML BTL OPB SCH (19:47)
[2025-09-26] MEDS ORDERED: ACETAMINOPHEN 325 MG TAB PO PRN (20:15)
[2025-09-26] MEDS: ACETAMINOPHEN 325 MG TAB PO STA (20:47)
[2025-09-26] MEDS ORDERED: APIXABAN 5 MG TABLET PO SCH (21:00)
[2025-09-26] MEDS: cefTRIAXone SODIUM 2,000 MG/50 ML BAG IV SCH (21:23)
[2025-09-27 07:33] LABS: Hematocrit (blood only) 29.9 % (37.0-47.0); Hemoglobin 9.7 g/dl (12.0-16.0); Immature Granulocytes # (auto) 0.06 K/uL (0.01-0.20); Immature Granulocytes % (auto) 0.5 %; Mean Corpuscular Hemoglobin 29.3 pg (25.0-34.0); Mean Corpuscular Volume 90.3 fL (80.0-100.0); Platelet Count 230 K/uL (130-400); RDW Standard Deviation 46.0 fL (36.4-46.3); Red Blood Count 3.31 M/uL (4.20-5.40); White Blood Count 11.95 K/ul (4.8-10.8)
[2025-09-27 07:56] LABS: Anion Gap 9.0 (3-11); Blood Urea Nitrogen 17.0 mg/dl (6-23); Calcium 8.6 mg/dl (8.6-10.3); Carbon Dioxide 24.0 mmol/L (21-32); Chloride 104.0 mmol/L (98-107); Cholesterol 115.0 mg/dl (0-200); Creatinine Clr Calc Pharmacy 45.1 ml/min; Glucose 141.0 mg/dl (70-99(Fasting)); HDL Cholesterol 45.0 mg/dl; Potassium 3.5 mmol/L (3.5-5.1); Sodium 137.0 mmol/L (136-145); Triglycerides 85.0 mg/dl (0-150)
[2025-09-27] MEDS: VANCOMYCIN HCL 1,250 MG in SODIUM CHLORIDE 0.9% 250 ML IV SCH (08:41)
--- NOTE | 2025-09-27 08:54 | Pharmacy Report ---
Pharmacy PK ABX Note - Date of Service September 27, 2025 - Assessment and Plan Assessment 85 year old F receiving vancomycin and rocephin for possible UTI/+ blood cultures. Preliminary blood cultures with staph epi 4/4 bottles - biofire indicating mecA/C gene positive, Vancomycin appropriate until further sensitivities known. Plan Vancomycin * Loading dose: 1500 mg IV x 1 * Maintenance dose: 1250 mg IV every 24 hours * Regimen is predicted to achieve target AUC/BECKIE of 400-600 mg/L.hr * Will plan to order vancomycin level tomorrow AM to evaluate dosing. Pharmacy will continue to follow and will adjust dose/frequency as necessary. Thank you. Pharmacy has transitioned to AUC monitoring for vancomycin. AUC/BECKIE is the preferred PK/PD target and is associated with decreased risk of nephrotoxicity compared to traditional trough targets.
[2025-09-27] MEDS: OPTIRAY 320 125ml IV ONE (09:23)
--- NOTE | 2025-09-27 09:40 | CT Scan Report ---
CT SCAN OF THE BRAIN WITHOUT IV CONTRAST CLINICAL HISTORY: Assess for bleed. COMPARISON STUDY: Head CT, CTA of the head and MRI of the brain September 26, 2025. TECHNIQUE: Unenhanced axial CT scan of the brain was performed from the vertex to the skull base. A dose lowering technique was utilized adhering to the principles of ALARA. CT DOSE: 625.8 mGy.cm FINDINGS: No acute intracranial hemorrhage, midline shift or mass effect is present. Ventricular syst em is stable. Basal cisterns are patent. There are extra-axial collections. The small acute infarcts on MRI of September 26, [address]. White matter hypodensities suggest small vessel dis ease. There are no calvarial fractures. IMPRESSION: 1. No acute intracranial hemorrhage or mass effect. 2. The multiple small acute infarcts on MRI of September 26, [address]. ACT 112: Negative or not required by law. Electronically signed by: Guillaume Borrego M.D. 09/27/2025 9:38 AM
--- NOTE | 2025-09-27 09:42 | Infectious Disease Consult ---
Date of Service September 27, 2025 Telehealth Information I performed this visit using a real-time telehealth connection between my location and the patients location ([facility]). After connecting through interactive tele-video, patient was identified by name and date of and/or wristband check.Patient (or authorized healthcare direct marketing representative) was informed that this was a telemedicine visit and it was being conducted confidentially over secure lines. My office door was closed and no one else was present in the room with me.Patient (or authorized healthcare direct marketing representative) provided consent to proceed with the visit, expressed an understanding of privacy and security of the telemedicine visit, and gave permission to have a hospital direct marketing representative in the room in order to assist with the visit and to conduct portions of the visit, as needed. I informed the patient (or authorized healthcare direct marketing representative) that I reviewed their record and presented the opportunity for them to ask any questions regarding the visit today. The patient agreed to participate. MRSA Bacteremia Assessment & Plan (1) Stroke-like symptoms: Plan: Neurology following (2) Staphylococcus epidermidis bacteremia: Plan Patient who presented with stroke like symptoms and was also found to have MRSE bacteremia ,TTE no vegetation repeat blood cultures pending on ceftriaxone and vancomycin .Her MRI of brain was concerning for emboli infarcts Recommend obtaining a MELANIE and susceptibilities for the staph epidermidis and discontinuing ceftriaxone . If her MELANIE is negative and blood cultures remain NGTD and no source is found would recommend treating for at least 4 weeks from negative blood cultures .Thank you for allowing us to participate in the care of this patient ID will continue to follow History of Present Illness History of Present Illness 85 y/o F PMHx DM2, hypertension, hypothyroidism, dyslipidemia, DEMARIO, mild persistent asthma, paroxysmal atrial fibrillation, CKD stage III, chronic CHF, CAD s/p LAD Stent, GERD, Stress Female Incontinence, Degenerative Disc Disease, History of Left-Sided Weakness from Stroke, History of Expressive Aphasia, Depression, History of Subdural Hematoma, presented with strokelike symptoms. The day prior to admission the patient was observed having difficulty speaking and some right-sided weakness.Her blood cultures have grown MRSE and she is on ceftriaxone and vancomycin .Her TTE did not reveal any vegetations but her MRI of brain was concerning for acute infarcts likely emboli etiology Allergies Allergy/AdvReac Type Severity Reaction Status Date / Time paroxetine Allergy Severe ANAPHYLAXIS Verified 08/20/25 21:05 mold Allergy Intermediate asthma Verified 08/20/25 21:05 symptoms pollen extracts Allergy Intermediate asthma Verified 08/20/25 21:05 symptoms Penicillins Allergy Mild BLISTERED Verified 08/20/25 21:05 HANDS grapefruit Allergy Unknown POSITIVE Verified 08/20/25 21:05 ALLERGY TEST/BRONCHITIS vasquez AdvReac Intermediate gas and Verified 08/20/25 21:05 bloating with consuption of green or kidneys beans broccoli AdvReac Intermediate GAS Verified 08/20/25 21:05 cabbage AdvReac Intermediate "Brassica Verified 08/20/25 22:44 oleracea" -- gas/bloating cauliflower AdvReac Intermediate GAS Verified 08/20/25 21:05 crab AdvReac Intermediate diarrhea Verified 08/20/25 21:05 green vasquez AdvReac Intermediate GAS/BLOATIN Verified 08/20/25 21:05 G peanut AdvReac Intermediate GAS/BLOATIN Verified 08/20/25 21:05 G peas AdvReac Intermediate GAS/BLOATIN Verified 08/20/25 21:05 G orange AdvReac Unknown POSITIVE Verified 08/20/25 21:05 ALLERGY TEST/BRONCHITIS Home Medications Medication Instructions Recorded Confirmed Type albuterol sulfate 90 mcg/actuation 2 inh inhalation Q4H PRN Shortness 09/26/25 09/26/25 History breath activated powder inhaler Of Breath Or Wheezing aspirin 81 mg tablet,delayed 81 mg PO DAILY 09/26/25 09/26/25 History release atorvastatin 20 mg tablet 20 mg PO DAILY 09/26/25 09/26/25 History azelastine 137 mcg (0.1 %) nasal 2 spray intranasal QPM 09/26/25 09/26/25 History spray bimatoprost 0.01 % eye drops 1 drp OPB HS 09/26/25 09/26/25 History (Lumigan) coenzyme Q10 100 mg capsule 100 mg PO DAILY 09/26/25 09/26/25 History diclofenac sodium 1 % topical gel 2 g topical TID PRN Pain 09/26/25 09/26/25 History (Voltaren Arthritis Pain) fluticasone 250 mcg-salmeterol 50 1 inh inhalation BID 09/26/25 09/26/25 History mcg/dose blistr powdr for inhalation (Wixela Inhub) fluticasone propionate 50 2 spray intranasal DAILY 09/26/25 09/26/25 History mcg/actuation nasal spray,suspension guaifenesin 600 mg tablet, 600 mg PO Q12H PRN Congestion 09/26/25 09/26/25 History extended release 12 hr (Mucinex) ketoconazole 2 % topical cream 1 applic topical DAILY PRN Rash 09/26/25 09/26/25 History levothyroxine 75 mcg tablet 75 mcg PO DAILY 09/26/25 09/26/25 History losartan 50 mg tablet 50 mg PO DAILY 09/26/25 09/26/25 History magnesium oxide 400 mg (241.3 mg 400 mg PO DAILY 09/26/25 09/26/25 History magnesium) tablet metoprolol succinate 25 mg 25 mg PO DAILY 09/26/25 09/26/25 History tablet,extended release 24 hr montelukast 10 mg tablet 10 mg PO DAILY 09/26/25 09/26/25 History multivitamin with minerals 1 tab PO DAILY 09/26/25 09/26/25 History nystatin 100,000 unit/gram topical 1 applic topical BID PRN Rash 09/26/25 1 History cream oxybutynin chloride 10 mg 10 mg PO DAILY 09/26/25 09/26/25 History tablet,extended release 24 hr pantoprazole 40 mg tablet,delayed 40 mg PO DAILY 09/26/25 09/26/25 History release polyethylene glycol 3350 17 gram 17 g PO DAILY PRN Constipation 09/26/25 09/26/25 History oral powder packet potassium chloride 20 mEq 20 meq PO BID 09/26/25 09/26/25 History tablet,extended release(part/cryst) torsemide 20 mg tablet 20 mg PO DAILY 09/26/25 09/26/25 History vitamin B complex-vitamin C-folic 1 tab PO DAILY 09/26/25 09/26/25 History acid 1 mg tablet Patient History Medical History Fall Hyponatremia Family History Father CHF (congestive heart failure) Mother Cancer Social History Smoking Status: Never smoker Second Hand Exposure: No; Do You Dip or Chew Tobacco: No; Hx Alcohol Use: No Hx Substance Use: No Preferred Language: Spanish Communication Ability: Impaired [employer]er Blasting Required: No Beliefs That Will Affect Care: None marital status: Life Partner Current Living Situation: Significant Other Current Living Situation Comment: s/o Feels Safe at Home: Yes Safety Concerns: Feels Safe At This Time Assistive Devices: Walker and Wheelchair Review of Systems No acute respiratory distress Physical Exam awake responds to questions appropriately slurred speech Results & Data Vital Signs (Past 12 Hours) Vital Signs Temp Pulse Pulse Resp BP Pulse Ox O2 Del Method 09/27/25 07:09 36.5 C 77 16 110/66 92 Room Air 09/27/25 03:50 37.0 C 67 20 110/67 94 Room Air 09/26/25 21:49 96 H Laboratory Results Blood Culture Aerobic Preliminary 09/27/25 Organism 1 Staphylococcus epidermidis Sens No Sensitivities to Follow Please see culture number [id number] for sensitivities. Phoned positive Blood Culture Gram Stain report to MG NESBITT on 09/26/25 at 173 [place] [id number]. [place] [id number]. Blood Culture Anaerobic Preliminary 09/27/25 Organism 1 Staphylococcus epidermidis Sens No Sensitivities to Follow Blood Culture PCR Panel If viewing in EMR, results available under LAB Serology tab. Diagnostic Findings TTE moderate aortic stenosis no vegetations MRI of brain :IMPRESSION: Multiple small foci of restricted diffusion, the largest of which is a 6 mm inferior right cerebellar focus. These are consistent with small acute infarcts and suggest an embolic etiology. No mass effect. No hemorrhage.
[2025-09-27 10:57] LABS: Hemoglobin A1C 6.6 % (4.5-5.6)
--- NOTE | 2025-09-27 11:54 | Cardiology Progress Note ---
Date of Service September 27, 2025 Assessment & Plan (1) Acute ischemic stroke: (2) Staphylococcus epidermidis bacteremia: (3) Weakness: (4) Elevated troponin: (5) PAF (paroxysmal atrial fibrillation): Plan 09/26/25: Patient is an 85 year old female admitted with right sided weakness and difficulty with speech, consistent and concerning for recurrent CVA. Head and neck CTA initially were unremarkable. Brain MRI revealed multiple areas of acute infarct in the right cerebellum. Neurology consulted. 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 Unfortunately she sustained a fall in Sep 2024 with subdural hematoma and Eliquis was discontinued. Now presenting with recurrent CVA. Appreciate neurology recommendations. Patient had prior MELANIE with bubble study in 2023 without findings of interatrial shunt. No known recurrence of afib, but findings on MRI are concerning for embolic CVA from possible afib. Family was not present at time of cardiology evaluation. Per family and hospitalist discussion, son was fairly adamant about patient resuming Eliquis for anticoagulation to prevent further strokes. Risks/benefits were discussed by hospitalist and risks/benefits were also discussed with son and neurology per notes. Her prior subdural hematoma occurred after a traumatic fall (not spontaneous). After discussion with her hospitalist, will resume anticoagulation with Eliquis 5 mg BID, first dose tonight. Stop plavix for now (just started today by neurology while anticoagulation risks/benefits were being discussed). Continue ASA 81 mg Can discuss with neurology if they would prefer plavix vs ASA going forward. Per neurology - CT of the head was recommended after initiation of Eliquis to verify no hemorrhagic conversion. This will be arranged tomorrow per hospitalist after the first 2 doses of Eliquis. Patient also found to have minimally elevated troponin. No acute EKG changes No chest pain or dyspnea reported. Likely demand ischemia in setting of acute CVA. Continue ASA, statin, metoprolol, torsemide and potassium. She has a history of HFpEF, but appears euvolemic currently. 09/27/25: Overnight patient was found to have bacteremia with + blood cultures demonstrating staph epidermis. Started on broad spectrum antibiotics. Etiology of embolic CVA may be sepsis, not PAF as initially suggested. Hold Eliquis as this is contraindicated in setting of septic emboli. Continue ASA. Source of infection is unknown. awaiting chest and abdominal CT. No abdominal pain. No back pain. Repeat head CT also ordered this morning due to Eliquis initiation yesterday. Echo with normal LVEF yesterday, calcification of the valves noted. May need MELANIE Continue all other home medications including ASA, statin, metoprolol, torsemide and potassium. Case discussed with Dr. Chandler I spent a total of 40 minutes on the date of service in preparation, delivery, and documentation of the care provided to this patient, excluding any time spent in the performance of separately billed services. Francheska Ponce PA-C Department of Cardiology, [facility] This chart was completed in part utilizing Speech Voice Recognition Software. Grammatical errors, random word insertions, pronoun errors, and incomplete sentences are an occasional consequence of this system due to software limitations, ambient noise, and hardware issues. Any formal questions or concerns about the content, text, or information contained within the body of this dictation should be directly addressed to the provider for clarification. Admission and Anticipated Discharge Date Admission Date: September 26, 2025 Supervising Physician Co-Signing Physician Notes I have personally performed a history and physical examination on the patient. I have reviewed the advance practitioner's documentation, and I agree with, and take responsibility for the plan of care. 85-year-old female with history of paroxysmal atrial fibrillation 2011 and prior CVA presents to the emergency department with new right sided weakness and difficulties with speech. MRI of the brain demonstrated multiple small punctate areas of acute infarction of the right cerebellum concerning for embolic phenomenon. Suffered a traumatic subdural hematoma last year with discontinuation of Eliquis. Cardiology consulted discussed possible resumption of oral anticoagulation. Patient more alert today. Answering questions with complete sentences. Blood culture positive for Staph epidermidis in 2 bottles. Currently treated with empiric vancomycin and ceftriaxone. No fever or chills overnight. Recommend transesophageal echocardiogram for further evaluation. N.p.o. except medications after midnight for MELANIE in a.m. 09/28/2025. Eliquis will be placed on hold due to possible septic emboli pending review of transesophageal echocardiogram. Continue statin, metoprolol, torsemide, and potassium as ordered. Telemetry monitoring during hospitalization. I spent a total of 35 minutes on the date of service in preparation, delivery, and documentation of the care provided to this patient, excluding any time spent in the performance of separately billed services. Kris Chandler DO, [facility] Subjective Patient more awake/alert today. Speech improved compared to yesterday. She voices no acute complaints. No chest pain or SOB. Found to be bacteremic this morning with + blood cultures - staph epidermidis. Source of infection unclear. Abd/chest and head CT results pending at time of evaluation Review of Systems Review of Systems: All systems reviewed & are unremarkable except as noted in HPI & below Physical Exam Constitutional: + ill appearing and + thin; no acute dis tress Neck: normal visual inspection Respiratory: normal respiratory effort; no labored breathing Auscultation: + diminished lung sounds; no rales and no rhonchi Cardiovascular: Rate/Rhythm: regular rate and regular rhythm Heart Sounds: + murmur (II/ systolic murmur) Gastrointestinal (Abdomen): normal bowel sounds, soft, nontender, no hepatosplenomegaly Neurologic: awake Results & Data Vital Signs (Past 12 Hours) Vital Signs Temp Pulse Pulse Resp BP Pulse Ox O2 Del Method 09/27/25 08:00 81 09/27/25 07:09 36.5 C 77 16 110/66 92 Room Air 09/27/25 03:50 37.0 C 67 20 110/67 94 Room Air Laboratory Results Cardiac Enzymes 09/26/25 09/26/25 09/26/25 Range/Units 11:26 16:43 22:45 Troponin I High Sens 137.2 H* D 277.9 H* D 890.4 H* D (0-14) pg/ml 09/27/25 Range/Units 06:49 Troponin I High Sens 705.4 H* D (0-14) pg/ml Lipids 09/27/25 Range/Units 06:49 Triglycerides 85 (0-150) mg/dl Cholesterol 115 (0-200) mg/dl HDL Cholesterol 45 mg/dl Cholesterol/HDL Ratio 2.6 (0-5) CBC 09/27/25 Range/Units 06:49 WBC 11.95 H (4.8-10.8) K/ul RBC 3.31 L (4.20-5.40) M/uL Hgb 9.7 L (12.0-16.0) g/dl Hct 29.9 L (37.0-47.0) % Plt Count 230 (130-400) K/uL Neut # (Auto) 9.52 H (1.40-6.50) K/uL Lymph # (Auto) 0.73 L (1.20-3.40) K/uL [place] # (Auto) 1.55 H (0.11-0.59) K/uL Eos # (Auto) 0.07 (0.00-0.50) K/uL Baso # (Auto) 0.02 (0.00-0.20) K/uL Comprehensive Metabolic Panel 09/27/25 Range/Units 06:49 Sodium 137 (136-145) mmol/L Potassium 3.5 (3.5-5.1) mmol/L Chloride 104 (98-107) mmol/L Carbon Dioxide 24 (21-32) mmol/L BUN 17 (6-23) mg/dl Creatinine 0.82 (0.6-1.2) mg/dl Glucose 141 H (70-99(Fasting)) mg/dl Calcium 8.6 (8.6-10.3) mg/dl Intake and Output 09/26/25 09/27/25 09/27/25 22:59 06:59 14:59 Intake Total 1592.667 / 2912.667 1320 / 2912.667 275 / 275 Output Total 300 / 1350 700 / 1350 Balance 1292.667 / 1562.667 620 / 1562.667 275 / 275 Intake: IV 1472.667 / 2522.667 1050 / 2522.667 275 / 275 Sodium Chloride 0.9% 1,000 ml @ 942.667 / 2747.308 0499 / 1942.667 80 mls/hr IV .[id number] [facility] Rx#: [id number] Vancomycin HCl 1,250 mg In 275 / 275 Sodium Chloride 0.9% 250 ml @ 200 mls/hr IV Q24H ALYSA Rx#: [id number] Vancomycin HCl 1,500 mg In 530 / 530 Sodium Chloride 0.9% 500 ml @ 200 mls/hr IV NOW ONE Rx#: [id number] [id number] SODIUM 2,000 mg In 50 / 50 50 ml @ 100 mls/hr IV Q24H ALYSA Rx#:[id number] Oral 120 / 390 270 / 390 Output: Urine Amount (Catheter) 300 / 1350 700 / 1350 External 300 / 1350 700 / 1350 Other: Weight 73.3 kg Weight Measurement Method Built in [facility] Diagnostic Findings Blood cultures + Staph Epidermidis Telemetry reviewed - NSR with PAC/PVC's. No atrial arrhythmias. Echo report reviewed dated 09/26/25: LVEF at 65-70% Mild concentric LVH LA is moderately dilated Aortic valve sclerosis moderate without significant aortic valvular stenosis Moderate MAC Mild MR and mild TR Estimated systolic pulm pressure is 45 mmHg Trivial loculated anterior pericardial effusion No tamponade Medications Administered Current Inpatient Medications Acetaminophen (Acetaminophen 325 Mg Tab) 650 mg PO QID PRN PRN Reason: pain/fever Stop: 10/26/25 20:14 Albuterol (Albuterol Hfa Inhaler 8.5 Gm) 2 puffs INH Q4H PRN PRN Reason: Shortness Of Breath Or Wheezing Stop: 10/26/25 05:50 Apixaban (Apixaban 5 Mg Tablet) 5 mg PO BID ALYSA Stop: 10/26/25 20:59 Last Admin: 09/27/25 08:40 Dose: 5 mg Aspirin (Aspirin 81 Mg Ectab) 81 mg PO DAILY ALYSA Stop: 10/26/25 08:59 Last Admin: 09/26/25 08:41 Dose: 81 mg Atorvastatin Calcium (Atorvastatin 40 Mg Tab) 80 mg PO QAM ALYSA Stop: 10/26/25 08:59 Last Admin: 09/27/25 08:40 Dose: 80 mg Azelastine HCl (Azelastine Hcl 0.1% Nasal 200 Sprays/27,400 Mcg Btl) 2 sprays NA QPM ALYSA Stop: 10/26/25 20:59 Last Admin: 09/26/25 19:46 Dose: 2 sprays Bimatoprost (Bimatoprost 0.01% Op Soln 2.5 Ml Btl) 1 drops OPB HS ALYSA Stop: 10/26/25 20:59 Last Admin: 09/26/25 19:47 Dose: 1 drops Diclofenac Sodium (Diclofenac Sod 1% Gel 100 Gm Tube) 2 gm EXT TID PRN; Protocol PRN Reason: Pain Stop: 10/26/25 05:25 Fluticasone Propionate (Fluticasone Propionate Na Spr 16 Gm Btl) 2 sprays NA DAILY ALYSA Stop: 10/26/25 08:59 Last Admin: 09/27/25 08:41 Dose: 2 sprays Fluticasone/Vilanterol (Fluticasone/Vilanterol 200/25mcg 14 Puffs/Inhaler) 1 puffs INH DAILY ALYSA Stop: 10/26/25 08:59 Last Admin: 09/27/25 08:41 Dose: 1 puffs Guaifenesin (Guaifenesin 600 Mg Tabcr) 600 mg PO Q12H PRN PRN Reason: Congestion Stop: 10/26/25 05:25 Sodium Chloride (Nss) 1,000 mls @ 80 mls/hr IV .[id number] [facility] Stop: 09/29/25 05:25 Last Admin: 09/27/25 08:39 Dose: 80 mls/hr Ceftriaxone Sodium (Rocephin) 2,000 mg in 50 mls @ 100 mls/hr IV Q24H [facility] Stop: 10/01/25 22:29 Last Infusion: 09/26/25 23:23 Dose: Infused Vancomycin HCl 1,250 mg/ (Sodium Chloride) 275 mls @ 200 mls/hr IV Q24H [facility] Stop: 10/11/25 08:59 Last Infusion: 09/27/25 11:42 Dose: Infused Ketoconazole (Ketoconazole 2% Cr 15 Gm Tube) 1 appln EXT DAILY PRN PRN Reason: Rash Stop: 10/06/25 05:25 Levothyroxine Sodium (Levothyroxine Sodium 75 Mcg Tablet) 75 mcg PO DAILYBB [facility] Stop: 10/26/25 06:29 Last Admin: 09/27/25 05:43 Dose: 75 mcg Magnesium Oxide (Magnesium Oxide 400 Mg Tab) 400 mg PO DAILY ALYSA Stop: 10/26/25 08:59 Last Admin: 09/27/25 08:40 Dose: 400 mg Metoprolol Succinate (Metoprolol Succ 25mg Ext Rel Tab) 25 mg PO DAILY [facility] Stop: 10/26/25 08:59 Last Admin: 09/27/25 10:14 Dose: 25 mg Miscellaneous Information (Pharmacist Discharge Med Rec Consult) 1 each N/A UD PRN PRN Reason: Consult Stop: 10/26/25 05:25 Miscellaneous Information (Vancomycin Consult Active) 1 each N/A UD PRN PRN Reason: Consult Stop: 10/26/25 17:44 Montelukast Sodium (Montelukast Sodium 10 Mg Tablet) 10 mg PO DAILY ALYSA Stop: 10/26/25 08:59 Last Admin: 09/27/25 08:40 Dose: 10 mg Multivitamins/Minerals (Cerovite Adv Formula Tab) 1 tab PO DAILY ALYSA Stop: 10/26/25 08:59 Last Admin: 09/27/25 08:39 Dose: 1 tab Nitroglycerin (Nitroglycerin Sl 0.4 Mg/Tab Tab) 0.4 mg SL Q5M PRN PRN Reason: Chest Pain Stop: 10/26/25 05:25 Nystatin (Nystatin Cr 15 Gm Tube) 1 appln EXT BID PRN PRN Reason: Rash Stop: 10/26/25 05:25 Oxybutynin Chloride (Oxybutynin Chloride Xl 5 Mg Tabcr) 10 mg PO DAILY ALYSA Stop: 10/26/25 08:59 Last Admin: 09/27/25 08:40 Dose: 10 mg Pantoprazole Sodium (Pantoprazole 40 Mg Tab) 40 mg PO DAILY ALYSA Stop: 10/26/25 08:59 Last Admin: 09/27/25 08:40 Dose: 40 mg Polyethylene Glycol (Polyethylene (Miralax) 17 Gm Pack) 17 gm PO DAILY PRN PRN Reason: Constipation Stop: 10/26/25 05:25 Potassium Chloride (Potassium Chloride Crtab 20 Meq Tabcr) 20 meq PO BID ALYSA Stop: 10/26/25 08:59 Last Admin: 09/27/25 08:39 Dose: 20 meq Torsemide (Torsemide 20 Mg Tab) 20 mg PO DAILY ALYSA Stop: 10/26/25 08:59 Last Admin: 09/27/25 08:40 Dose: 20 mg Vitamin B Complex (Vitamin B Complex Tab) 1 tab PO DAILY ALYSA Stop: 10/26/25 08:59 Last Admin: 09/27/25 08:40 Dose: 1 tab PG Care Time/CCT Total # of Minutes Spent Total Time Spent with Patient: Total time spent is greater than 50% in coordination of care (as documented) at patient's floor/unit and/or counseling patient: 40 minutes Coding Level of Care Code 78583 SUB INP/OBS CARE 3/50MIN Diagnoses Acute ischemic stroke I63.9 Staphylococcus epidermidis bacteremia R78.81; B95.7 Weakness R53.1 Elevated troponin R79.89 PAF (paroxysmal atrial fibrillation) I48.0
--- NOTE | 2025-09-27 11:59 | CT Scan Report ---
CT chest diagnostic wo/w con HISTORY: 85 years-old Female MRSA bactermia COMPARISON: CTA abdomen and pelvis of same day, CTA chest 08/03/2024 TECHNIQUE: Multiple axial CT images of the chest were obtained with and without IV contrast. A dose l owering technique was used consistent with the principals of MEDINA. FINDINGS: Unremarkable thyroid. Subcentimeter lymph nodes of the mediastinum and zo measuring up to 9 mm are likely physiologic. Moderate cardiomegaly with trace pericardial effusion. Extensive coronary artery calcifications with prominent mitral annular calcifications. No thoracic aortic aneurysm or dissectio n. Dilated main pulmonary artery, 3.9 cm. No pulmonary emboli are seen. Trace pleural effusions with mild dependent subsegmental bibasilar atelectasis. There is no pneumotho rax, pleural effusion, lobar airspace consolidation or pulmonary edema. Minimal left basilar mucous p lugging. No suspicious pulmonary nodules or masses are seen. Central airways are patent. Unremarkable soft tissues. Moderate-sized hiatal hernia. No acute fracture or abnormal enhancement within the eva st. CT abdomen and pelvis dictated separately. IMPRESSION: 1. No acute intrathoracic abnormality. 2. Cardiomegaly with pulmonary arterial hypertension. 3. Moderate sized hiatal hernia. 4. Trace pleural effusions with mild dependent bibasilar atelectasis. ACT 112: Negative or not required by law. The above report was generated using voice recognition software. It may contain grammatical, syntax o r spelling errors. Electronically signed by: Talib Mroales M.D. 09/27/2025 11:57 AM
--- NOTE | 2025-09-27 12:09 | CT Scan Report ---
CT angio abd pelvis wo/w con HISTORY: 85 years-old Female MRSA bactermia COMPARISON: CT abdomen and pelvis 12/22/2023 TECHNIQUE: CTA abdomen and pelvis was obtained with and without IV contrast. 3-D coronal and sagittal MIPS were obtained and were submitted for review. All measurements were obtained according to NASCET criteria. A dose lowering technique was used consistent with the principals of MEDINA. FINDINGS: Chest CT dictated separately. CTA: Moderate atherosclerosis of the abdominal aorta and branch vessels without aneurysm or dissectio n. Iliac and imaged femoral arteries are patent. High-grade stenosis of the origin of the celiac trun k. Moderate stenosis at the origin of the superior mesenteric artery. Stenosis of the renal arteries, mild on the right and moderate on the left. There is high-grade stenosis involving an accessory dorian ry to the inferior pole right kidney. There is the inferior mesenteric artery is patent. No active ex travasation. CT ABDOMEN/PELVIS: Unremarkable spleen. Thickening of adrenal gland suggestive of hyperplasia. Modera te to advanced atrophy of the pancreas. No hydronephrosis. There is a small exophytic cyst of the pos terior interpolar left kidney. Duplicated collecting systems and ureters on the left. Unremarkable ur inary bladder. No lymphadenopathy. Moderate sized hiatal hernia. Colonic diverticulosis without acute diverticulitis. Moderate colonic fecal retention. Multilevel degenerative changes of the spine. No a cute fracture or osseous erosion. IMPRESSION: 1. No acute intra-abdominal or intrapelvic abnormality. 2. No moderate colonic fecal retention. 3. Colonic diverticulosis without acute diverticulitis. 4. Moderate-sized hiatal hernia. 5. Atherosclerosis of the aorta and branch vessels with mild to moderate multifocal stenoses. There i s high-grade stenosis at the origin of the celiac trunk. ACT 112: Negative or not required by law. The above report was generated using voice recognition software. It may contain grammatical, syntax o r spelling errors. Electronically signed by: Talib Morales M.D. 09/27/2025 12:06 PM
--- NOTE | 2025-09-27 13:39 | Hospitalist Progress Note ---
Date of Service September 27, 2025 Assessment & Plan (1) Stroke-like symptoms: Plan: Ms. Palacios is an 85-year-old female with past medical history significant for type 2 diabetes, hypertension, hypothyroidism, dyslipidemia, sleep apnea, mild persistent asthma, paroxysmal atrial fibrillation, CKD stage III, chronic CHF, CAD s/p LAD Stent, Hypertension, GERD, Stress Female Incontinence, Degenerative Disc Disease, History of Left-Sided Weakness from Stroke, History of Expressive Aphasia, Depression, History of Subdural Hematoma admitted for strokelike symptoms and appears to have had a cardioembolic stroke. Patient with SDH 08/2024 and taken off of eliquis at that time. Patient is a [id number] iso PAF Blood cultures from 09/26 revealed 4/4 staph epi +MEC Plan for MELANIE in am. #Staph Epi Bacteremia 4/4 cultures on admission positive repeat ordered this am CT abd/p and chest ordered: no clear source identified, no wounds noted, no devices/prosthetics Vanc started ID consulted: follow susceptibilities which will result 09/28, plan for MELANIE in am iso bacteremia and new stroke, will need IV abx for 6 weeks regardless of MELANIE results #UTI dysuria reported culture with e coli continue CTX #Cardioembolic stroke, right cerebellum last known normal 9am 09/25 expressive aphasia noted, RUE weakness, weakness noted CT head no acute findings CTA head and neck no acute findings MRI with right cerebellar stroke, appears embolic per review of report No afib detected thus far Concern for possible embolic stoke iso bacteremia -Holding eliquis for now -Cardiology: MELANIE 09/28 Resume ASA for now Cardiology following: reviewed notes, hold eliquis as contraindicated iso possible septic emboli -Calcification of valves noted on ECHO #Elevated troponin likely demand iso stroke/poor po/like PAF event trend troponin no active signs of acs at this time #Ambulatory dysfunction PT OT when stable #Paroxysmal atrial fibrillation On metoprolol No longer anticoagulation secondary to 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 #Chronic heart failure preserved ejection fraction Continue torsemide with potassium supplement Monitor for volume overload #Hypertension Continue Toprol and torsemide Hold losartan for permissive hypertension Will monitor #CAD status post LAD stent in 1999 On aspirin statin and beta-monico #Hypothyroidism On Synthyroid #History of diabetes not not on meds Not on meds Will follow HbA1c levels #Stress urinary incontinence On Ditropan #Asthma Currently stable Continue home inhalers #GERD On Protonix DVT prophylaxis holding eliquis for now, SCDS in interim given MELANIE tomorrow further AC contingent on findings Disposition Telemetry Full code. Admission and Anticipated Discharge Date Admission Date: September 26, 2025 Subjective Patient reports feeling weak, but notes it doesnt feel as tough to speak and get her words out denies any chest pain, abdominal pain or headache reports dysuria--noting it santiago when she urinates for the last 2-3 days patient confirms no prosthetics or devices Physical Exam Constitutional: ill appearing woman Respiratory: normal respiratory effort, lungs clear to auscultation Cardiovascular: RRR, no murmur, no edema Gastrointestinal (Abdomen): normal bowel sounds, soft, nontender, no hepatosplenomegaly Results & Data Results & Data Vital Signs (Past 12 Hours) Vital Signs Temp Pulse Pulse Resp BP Pulse Ox O2 Del Method 09/27/25 11:02 36.8 C 87 18 147/80 H 93 Room Air 09/27/25 08:00 81 09/27/25 07:09 36.5 C 77 16 110/66 92 Room Air 09/27/25 03:50 37.0 C 67 20 110/67 94 Room Air Laboratory Results Short CBC 09/27/25 Range/Units 06:49 WBC 11.95 H (4.8-10.8) K/ul Hgb 9.7 L (12.0-16.0) g/dl Hct 29.9 L (37.0-47.0) % Plt Count 230 (130-400) K/uL BMP 09/27/25 06:49 Sodium 137 Potassium 3.5 Chloride 104 Carbon Dioxide 24 BUN 17 Creatinine 0.82 Glucose 141 H Calcium 8.6 Medications Administered Home Medications Medication Instructions Recorded Confirmed Last Taken albuterol sulfate 90 mcg/actuation 2 inh inhalation Q4H PRN Shortness 09/26/25 09/26/25 Unknown breath activated powder inhaler Of Breath Or Wheezing aspirin 81 mg tablet,delayed 81 mg PO DAILY 09/26/25 09/26/25 Unknown release atorvastatin 20 mg tablet 20 mg PO DAILY 09/26/25 09/26/25 Unknown azelastine 137 mcg (0.1 %) nasal 2 spray intranasal QPM 09/26/25 09/26/25 Unknown spray bimatoprost 0.01 % eye drops 1 drp OPB HS 09/26/25 09/26/25 Unknown (Lumigan) coenzyme Q10 100 mg capsule 100 mg PO DAILY 09/26/25 09/26/25 Unknown diclofenac sodium 1 % topical gel 2 g topical TID PRN Pain 09/26/25 09/26/25 Unknown (Voltaren Arthritis Pain) fluticasone 250 mcg-salmeterol 50 1 inh inhalation BID 09/26/25 09/26/25 Unknown mcg/dose blistr powdr for inhalation (Wixela Inhub) fluticasone propionate 50 2 spray intranasal DAILY 09/26/25 09/26/25 Unknown mcg/actuation nasal spray,suspension guaifenesin 600 mg tablet, 600 mg PO Q12H PRN Congestion 09/26/25 09/26/25 Unknown extended release 12 hr (Mucinex) ketoconazole 2 % topical cream 1 applic topical DAILY PRN Rash 09/26/25 09/26/25 Unknown levothyroxine 75 mcg tablet 75 mcg PO DAILY 09/26/25 09/26/25 Unknown losartan 50 mg tablet 50 mg PO DAILY 09/26/25 09/26/25 Unknown magnesium oxide 400 mg (241.3 mg 400 mg PO DAILY 09/26/25 09/26/25 Unknown magnesium) tablet metoprolol succinate 25 mg 25 mg PO DAILY 09/26/25 09/26/25 Unknown tablet,extended release 24 hr montelukast 10 mg tablet 10 mg PO DAILY 09/26/25 09/26/25 Unknown multivitamin with minerals 1 tab PO DAILY 09/26/25 09/26/25 Unknown nystatin 100,000 unit/gram topical 1 applic topical BID PRN Rash 09/26/25 09/26/25 Unknown cream oxybutynin chloride 10 mg 10 mg PO DAILY 09/26/25 09/26/25 Unknown tablet,extended release 24 hr pantoprazole 40 mg tablet,delayed 40 mg PO DAILY 09/26/25 09/26/25 Unknown release polyethylene glycol 3350 17 gram 17 g PO DAILY PRN Constipation 09/26/25 09/26/25 Unknown oral powder packet potassium chloride 20 mEq 20 meq PO BID 09/26/25 09/26/25 Unknown tablet,extended release(part/cryst) torsemide 20 mg tablet 20 mg PO DAILY 09/26/25 09/26/25 Unknown vitamin B complex-vitamin C-folic 1 tab PO DAILY 09/26/25 09/26/25 Unknown acid 1 mg tablet Active Medications Generic Name Dose Route Start Last Admin Trade Name Corona PRN Reason Stop Dose Admin Apixaban 5 mg 09/26/25 21:00 09/27/25 08:40 Apixaban 5 Mg Tablet PO 10/26/25 20:59 5 mg BID ALYSA Administration Aspirin 81 mg 09/26/25 09:00 09/26/25 08:41 Aspirin 81 Mg Ectab PO 10/26/25 08:59 81 mg DAILY ALYSA Administration Atorvastatin Calcium 80 mg 09/26/25 09:00 09/27/25 08:40 Atorvastatin 40 Mg Tab PO 10/26/25 08:59 80 mg QAM ALYSA Administration Azelastine HCl 2 sprays 09/26/25 21:00 09/26/25 19:46 Azelastine Hcl 0.1% Nasal 200 Sprays/27,400 Mcg Btl NA 10/26/25 20:59 2 sprays QPM ALYSA Administration Bimatoprost 1 drops 09/26/25 21:00 09/26/25 19:47 Bimatoprost 0.01% Op Soln 2.5 Ml Btl OPB 10/26/25 20:59 1 drops HS ALYSA Administration Fluticasone Propionate 2 sprays 09/26/25 09:00 09/27/25 08:41 Fluticasone Propionate Na Spr 16 Gm Btl NA 10/26/25 08:59 2 sprays DAILY ALYSA Administration Fluticasone/Vilanterol 1 puffs 09/26/25 09:00 09/27/25 08:41 Fluticasone/Vilanterol 200/25mcg 14 Puffs/Inhaler INH 10/26/25 08:59 1 puffs DAILY ALYSA Administration Sodium Chloride 1,000 mls @ 80 mls/hr 09/26/25 05:26 09/27/25 08:39 Nss IV 09/29/25 05:25 80 mls/hr .[id number] ALYSA Administration Ceftriaxone Sodium 2,000 mg in 50 mls @ 100 mls/hr 09/26/25 22:30 09/26/25 23:23 Rocephin IV 10/01/25 22:29 Infused Q24H ALYSA Infusion Vancomycin HCl 1,250 mg/ 275 mls @ 200 mls/hr 09/27/25 09:00 09/27/25 11:42 Sodium Chloride IV 10/11/25 08:59 Infused Q24H ALYSA Infusion Levothyroxine Sodium 75 mcg 09/26/25 06:30 09/27/25 05:43 Levothyroxine Sodium 75 Mcg Tablet PO 10/26/25 06:29 75 mcg DAILYBB ALYSA Administration Magnesium Oxide 400 mg 09/26/25 09:00 09/27/25 08:40 Magnesium Oxide 400 Mg Tab PO 10/26/25 08:59 400 mg DAILY ALYSA Administration Metoprolol Succinate 25 mg 09/26/25 09:00 09/27/25 10:14 Metoprolol Succ 25mg Ext Rel Tab PO 10/26/25 08:59 25 mg DAILY ALYSA Administration Montelukast Sodium 10 mg 09/26/25 09:00 09/27/25 08:40 Montelukast Sodium 10 Mg Tablet PO 10/26/25 08:59 10 mg DAILY ALYSA Administration Multivitamins/Minerals 1 tab 09/26/25 09:00 09/27/25 08:39 Cerovite Adv Formula Tab PO 10/26/25 08:59 1 tab DAILY ALYSA Administration Oxybutynin Chloride 10 mg 09/26/25 09:00 09/27/25 08:40 Oxybutynin Chloride Xl 5 Mg Tabcr PO 10/26/25 08:59 10 mg DAILY ALYSA Administration Pantoprazole Sodium 40 mg 09/26/25 09:00 09/27/25 08:40 Pantoprazole 40 Mg Tab PO 10/26/25 08:59 40 mg DAILY ALYSA Administration Potassium Chloride 20 meq 09/26/25 09:00 09/27/25 08:39 Potassium Chloride Crtab 20 Meq Tabcr PO 10/26/25 08:59 20 meq BID ALYSA Administration Torsemide 20 mg 09/26/25 09:00 09/27/25 08:40 Torsemide 20 Mg Tab PO 10/26/25 08:59 20 mg DAILY ALYSA Administration Vitamin B Complex 1 tab 09/26/25 09:00 09/27/25 08:40 Vitamin B Complex Tab PO 10/26/25 08:59 1 tab DAILY ALYSA Administration
--- NOTE | 2025-09-27 14:45 | Anesthesiology Consultation ---
Date of Service September 27, 2025 Assessment & Plan (1) Encounter for pre-operative examination: Chart Review Chart Review: Acceptable Risk for Surgery History Surgery Operation Date: 09/28/25 07:30 Proposed Procedures p Transesophageal Echo w/Anesthesia - Kris Chandler DO Height/Weight Height: 5 ft 1 in Weight: 73.3 kg Allergies Allergy/AdvReac Type Severity Reaction Status Date / Time paroxetine Allergy Severe ANAPHYLAXIS Verified 08/20/25 21:05 mold Allergy Intermediate asthma Verified 08/20/25 21:05 symptoms pollen extracts Allergy Intermediate asthma Verified 08/20/25 21:05 symptoms Penicillins Allergy Mild BLISTERED Verified 08/20/25 21:05 HANDS grapefruit Allergy Unknown POSITIVE Verified 08/20/25 21:05 ALLERGY TEST/BRONCHITIS vasquez AdvReac Intermediate gas and Verified 08/20/25 21:05 bloating with consuption of green or kidneys beans broccoli AdvReac Intermediate GAS Verified 08/20/25 21:05 cabbage AdvReac Intermediate "Brassica Verified 08/20/25 22:44 oleracea" -- gas/bloating cauliflower AdvReac Intermediate GAS Verified 08/20/25 21:05 crab AdvReac Intermediate diarrhea Verified 08/20/25 21:05 green vasquez AdvReac Intermediate GAS/BLOATIN Verified 08/20/25 21:05 G peanut AdvReac Intermediate GAS/BLOATIN Verified 08/20/25 21:05 G peas AdvReac Intermediate GAS/BLOATIN Verified 08/20/25 21:05 G orange AdvReac Unknown POSITIVE Verified 08/20/25 21:05 ALLERGY TEST/BRONCHITIS Medications Home Medications Medication Instructions Recorded Confirmed Last Taken albuterol sulfate 90 mcg/actuation 2 inh inhalation Q4H PRN Shortness 09/26/25 09/26/25 Unknown breath activated powder inhaler Of Breath Or Wheezing aspirin 81 mg tablet,delayed 81 mg PO DAILY 09/26/25 09/26/25 Unknown release atorvastatin 20 mg tablet 20 mg PO DAILY 09/26/25 09/26/25 Unknown azelastine 137 mcg (0.1 %) nasal 2 spray intranasal QPM 09/26/25 09/26/25 Unknown spray bimatoprost 0.01 % eye drops 1 drp OPB HS 09/26/25 09/26/25 Unknown (Lumigan) coenzyme Q10 100 mg capsule 100 mg PO DAILY 09/26/25 09/26/25 Unknown diclofenac sodium 1 % topical gel 2 g topical TID PRN Pain 09/26/25 09/26/25 Unknown (Voltaren Arthritis Pain) fluticasone 250 mcg-salmeterol 50 1 inh inhalation BID 09/26/25 09/26/25 Unknown mcg/dose blistr powdr for inhalation (Wixela Inhub) fluticasone propionate 50 2 spray intranasal DAILY 09/26/25 09/26/25 Unknown mcg/actuation nasal spray,suspension guaifenesin 600 mg tablet, 600 mg PO Q12H PRN Congestion 09/26/25 09/26/25 Unknown extended release 12 hr (Mucinex) ketoconazole 2 % topical cream 1 applic topical DAILY PRN Rash 09/26/25 09/26/25 Unknown levothyroxine 75 mcg tablet 75 mcg PO DAILY 09/26/25 09/26/25 Unknown losartan 50 mg tablet 50 mg PO DAILY 09/26/25 09/26/25 Unknown magnesium oxide 400 mg (241.3 mg 400 mg PO DAILY 09/26/25 09/26/25 Unknown magnesium) tablet metoprolol succinate 25 mg 25 mg PO DAILY 09/26/25 09/26/25 Unknown tablet,extended release 24 hr montelukast 10 mg tablet 10 mg PO DAILY 09/26/25 09/26/25 Unknown multivitamin with minerals 1 tab PO DAILY 09/26/25 09/26/25 Unknown nystatin 100,000 unit/gram topical 1 applic topical BID PRN Rash 09/26/25 09/26/25 Unknown cream oxybutynin chloride 10 mg 10 mg PO DAILY 09/26/25 09/26/25 Unknown tablet,extended release 24 hr pantoprazole 40 mg tablet,delayed 40 mg PO DAILY 09/26/25 09/26/25 Unknown release polyethylene glycol 3350 17 gram 17 g PO DAILY PRN Constipation 09/26/25 09/26/25 Unknown oral powder packet potassium chloride 20 mEq 20 meq PO BID 09/26/25 09/26/25 Unknown tablet,extended release(part/cryst) torsemide 20 mg tablet 20 mg PO DAILY 09/26/25 09/26/25 Unknown vitamin B complex-vitamin C-folic 1 tab PO DAILY 09/26/25 09/26/25 Unknown acid 1 mg tablet Active Medications Generic Name Dose Route Start Last Admin Trade Name Corona PRN Reason Stop Dose Admin Apixaban 5 mg 09/26/25 21:00 09/27/25 08:40 Apixaban 5 Mg Tablet PO 10/26/25 20:59 5 mg BID ALYSA Administration Aspirin 81 mg 09/26/25 09:00 09/26/25 08:41 Aspirin 81 Mg Ectab PO 10/26/25 08:59 81 mg DAILY ALYSA Administration Atorvastatin Calcium 80 mg 09/26/25 09:00 09/27/25 08:40 Atorvastatin 40 Mg Tab PO 10/26/25 08:59 80 mg QAM ALYSA Administration Azelastine HCl 2 sprays 09/26/25 21:00 09/26/25 19:46 Azelastine Hcl 0.1% Nasal 200 Sprays/27,400 Mcg Btl NA 10/26/25 20:59 2 sprays QPM ALYSA Administration Bimatoprost 1 drops 09/26/25 21:00 09/26/25 19:47 Bimatoprost 0.01% Op Soln 2.5 Ml Btl OPB 10/26/25 20:59 1 drops HS ALYSA Administration Fluticasone Propionate 2 sprays 09/26/25 09:00 09/27/25 08:41 Fluticasone Propionate Na Spr 16 Gm Btl NA 10/26/25 08:59 2 sprays DAILY ALYSA Administration Fluticasone/Vilanterol 1 puffs 09/26/25 09:00 09/27/25 08:41 Fluticasone/Vilanterol 200/25mcg 14 Puffs/Inhaler INH 10/26/25 08:59 1 puffs DAILY ALYSA Administration Sodium Chloride 1,000 mls @ 80 mls/hr 09/26/25 05:26 09/27/25 08:39 Nss IV 09/29/25 05:25 80 mls/hr .[id number] ALYSA Administration Ceftriaxone Sodium 2,000 mg in 50 mls @ 100 mls/hr 09/26/25 22:30 09/26/25 23:23 Rocephin IV 10/01/25 22:29 Infused Q24H ALYSA Infusion Vancomycin HCl 1,250 mg/ 275 mls @ 200 mls/hr 09/27/25 09:00 09/27/25 11:42 Sodium Chloride IV 10/11/25 08:59 Infused Q24H ALYSA Infusion Levothyroxine Sodium 75 mcg 09/26/25 06:30 09/27/25 05:43 Levothyroxine Sodium 75 Mcg Tablet PO 10/26/25 06:29 75 mcg DAILYBB ALYSA Administration Magnesium Oxide 400 mg 09/26/25 09:00 09/27/25 08:40 Magnesium Oxide 400 Mg Tab PO 10/26/25 08:59 400 mg DAILY ALYSA Administration Metoprolol Succinate 25 mg 09/26/25 09:00 09/27/25 10:14 Metoprolol Succ 25mg Ext Rel Tab PO 10/26/25 08:59 25 mg DAILY ALYAS Administration Montelukast Sodium 10 mg 09/26/25 09:00 09/27/25 08:40 Montelukast Sodium 10 Mg Tablet PO 10/26/25 08:59 10 mg DAILY ALYSA Administration Multivitamins/Minerals 1 tab 09/26/25 09:00 09/27/25 08:39 Cerovite Adv Formula Tab PO 10/26/25 08:59 1 tab DAILY ALYSA Administration Oxybutynin Chloride 10 mg 09/26/25 09:00 09/27/25 08:40 Oxybutynin Chloride Xl 5 Mg Tabcr PO 10/26/25 08:59 10 mg DAILY ALYSA Administration Pantoprazole Sodium 40 mg 09/26/25 09:00 09/27/25 08:40 Pantoprazole 40 Mg Tab PO 10/26/25 08:59 40 mg DAILY ALYSA Administration Potassium Chloride 20 meq 09/26/25 09:00 09/27/25 08:39 Potassium Chloride Crtab 20 Meq Tabcr PO 10/26/25 08:59 20 meq BID ALYSA Administration Torsemide 20 mg 09/26/25 09:00 09/27/25 08:40 Torsemide 20 Mg Tab PO 10/26/25 08:59 20 mg DAILY ALYSA Administration Vitamin B Complex 1 tab 09/26/25 09:00 09/27/25 08:40 Vitamin B Complex Tab PO 10/26/25 08:59 1 tab DAILY ALYSA Administration Past Medical History Medical History (Updated 09/27/25 @ 14:45 by Brandt Denny MD) Acute on chronic heart failure with preserved ejection fraction Embolic stroke HTN (hypertension) Hypothyroidism Sleep apnea Primary open angle glaucoma Asthma PAF (paroxysmal atrial fibrillation) T2DM (type 2 diabetes mellitus) Orthostatic syncope CAD (coronary artery disease) stent in 1999 Fall Hyponatremia Past Family History Family History Father CHF (congestive heart failure) Mother Cancer Past Surgical History Surgical History (Updated 09/27/25 @ 14:43 by Brandt Denny MD) History of arthroscopic knee surgery History of appendectomy History of tonsillectomy History of rotator cuff surgery Social History Smoking Status: Never smoker Do You Dip or Chew Tobacco: No Hx Alcohol Use: No Hx Substance Use: No substance use type: does not use Physical Exam Vital Signs Last Vital Signs Temp 36.8 C 09/27/25 11:02 Pulse 87 09/27/25 11:02 Resp 18 09/27/25 11:02 BP 147/80 H 09/27/25 11:02 Pulse Ox 93 09/27/25 11:02 O2 Del Method Room Air 09/27/25 11:02 Testing Laboratory Results 09/27/25 06:49 09/27/25 06:49 Hemoglobin A1c 6.6 % (4.5-5.6) H 09/27/25 06:49 Urine Color Dark Yellow 09/25/25 22:50 Urine Appearance Cloudy (Clear) A 09/25/25 22:50 Urine pH 6.0 (4.5-7.5) 09/25/25 22:50 Ur Specific [place] 1.012 (1.000-1.030) 09/25/25 22:50 Urine Protein Trace (Negative) H 09/25/25 22:50 Urine Glucose (UA) Negative (Negative) 09/25/25 22:50 Urine Ketones Negative (Negative) 09/25/25 22:50 Urine Nitrite Positive (Negative) A 09/25/25 22:50 Ur Leukocyte Esterase 3+ (Negative) H 09/25/25 22:50 Urine WBC (Auto) >50 /hpf (0-5) H 09/25/25 22:50 Urine RBC (Auto) 0-2 /hpf (0-2) 09/25/25 22:50 U Hyaline Cast (Auto) 3-5 /lpf (0-2) H 09/25/25 22:50 U Epithel Cells (Auto) 0-2 /hpf (0-2) 09/25/25 22:50 Urine Bacteria (Auto) 4+ (None Seen) H 09/25/25 22:50 09/25/25 22:50 Urine Culture - Preliminary Urine,Straight Cath Escherichia coli 09/26/25 01:48 Aerobic Blood Culture - Preliminary Blood Staphylococcus epidermidis Anaerobic Blood Culture - Preliminary Staphylococcus epidermidis 09/26/25 01:45 Aerobic Blood Culture - Preliminary Blood Staphylococcus epidermidis Anaerobic Blood Culture - Preliminary Staphylococcus epidermidis Electrocardiogram Date: 09/25/25 Findings: + NSR @ (73) Echocardiogram Date: 09/26/25 EF: 65-70% LV Function: normal Valvular Disease: + no significant valvular disease
[2025-09-28 06:49] LABS: Hematocrit (blood only) 30.2 % (37.0-47.0); Hemoglobin 10.0 g/dl (12.0-16.0); Immature Granulocytes # (auto) 0.07 K/uL (0.01-0.20); Immature Granulocytes % (auto) 0.5 %; Mean Corpuscular Hemoglobin 29.9 pg (25.0-34.0); Mean Corpuscular Volume 90.1 fL (80.0-100.0); Platelet Count 252 K/uL (130-400); RDW Standard Deviation 45.9 fL (36.4-46.3); Red Blood Count 3.35 M/uL (4.20-5.40); White Blood Count 13.36 K/ul (4.8-10.8)
[2025-09-28 07:19] LABS: Anion Gap 9.0 (3-11); Blood Urea Nitrogen 15.0 mg/dl (6-23); Calcium 8.7 mg/dl (8.6-10.3); Carbon Dioxide 23.0 mmol/L (21-32); Chloride 106.0 mmol/L (98-107); Creatinine Clr Calc Pharmacy 47.9 ml/min; Glucose 130.0 mg/dl (70-99(Fasting)); Magnesium 1.8 mg/dl (1.7-2.4); Potassium 3.5 mmol/L (3.5-5.1); Sodium 138.0 mmol/L (136-145)
[2025-09-28] MEDS: VANCOMYCIN LEVEL ONE (08:18)
[2025-09-28] MEDS: BENZOCAINE/TETRACAIN/BUTAM 50 APPLN/5 GM CAN EXT ONE (08:21)
--- NOTE | 2025-09-28 08:57 | Post Operative Brief Note ---
PG Immediate Post Op with CF Date of Surgery September 28, 2025 Pre & Post Diagnosis Operation Date: 09/28/25 07:30 <No data on this case meets the specified criteria> I identified the patient and participated in the time-out.: Yes Procedure Operation Date: 09/28/25 07:30 Actual Procedures p Echo Transesophageal - Kris Chandler, s Echo Color Flow - Kris Chandler, s Echo Doppler Complete - Kris Chandler DO Surgeon Kris Chandler, Enamel Buffer Judy Montague RDCS Estimated Blood Loss 0 Findings Consistent with Post-Op Diagnosis Vegetation adherent to the posterior mitral valve annulus. Moderate mitral regurgitation. Preserved LV systolic function. Anesthesia Type MAC Complications None Disposition Accompanied Patient To Recovery: Yes Disposition: Recovery Room Overlapping Procedure I was present for: the critical portions of procedure. I was immediately available: during the entire case.
[2025-09-28] MEDS ORDERED: PROPOFOL IV EMULSION 10 MG/ML 20 ML VIAL IV ONE (09:02)
[2025-09-28] MEDS ORDERED: LIDOCAINE 2% 2 ML VIAL/AMP(20MG/ML) INFIL ONE (09:02)
--- NOTE | 2025-09-28 09:09 | Anesthesiology Progress Note ---
Date of Service September 28, 2025 Anesthesia Post Procedure Vital Signs Vital Signs: Temp Pulse Pulse Pulse Resp BP BP 09/28/25 09:05 67 18 147/60 H 09/28/25 08:50 68 18 146/62 H 09/28/25 07:16 82 152/57 H 09/28/25 06:46 65 09/28/25 03:21 36.6 C 80 18 139/77 09/27/25 23:59 36.6 C 78 18 133/72 09/27/25 21:40 82 09/27/25 20:00 37.0 C 84 18 148/72 H 09/27/25 17:03 74 09/27/25 15:16 36.7 C 75 18 109/62 09/27/25 11:02 36.8 C 87 18 147/80 H Pulse Ox O2 Del Method O2 Flow Rate 09/28/25 09:05 98 Room Air 10 09/28/25 08:50 99 Room Air 10 09/28/25 07:16 14 L Room Air 09/28/25 06:46 09/28/25 03:21 95 Room Air 09/27/25 23:59 93 Room Air 09/27/25 21:40 09/27/25 20:00 93 Room Air 09/27/25 17:03 09/27/25 15:16 96 Room Air 09/27/25 11:02 93 Room Air Pain Intensity Neck: Pain Intensity: 7 Transfer of Care Handoff Completed per policy Notes Mental Status: alert / awake / arousable and participated in evaluation Patient Amnestic to Procedure: Yes Nausea / Vomiting: adequately controlled Pain: adequately controlled Airway Patency, RR, SpO2: stable & adequate BP & HR: stable & adequate Hydration State: stable & adequate Anesthetic Complications: no major complications apparent
--- NOTE | 2025-09-28 09:40 | Pharmacy Report ---
Pharmacy PK ABX Note - Date of Service September 28, 2025 - Assessment and Plan Assessment 09/28 * Vancomycin level came back at ~11 mcg/ml this AM - will increase dosing to target higher end of goal range for AUC/BECKIE due to bacteremia. Repeat blood cultures preliminary no growth. Urine culture with ESBL e coli - discussed with provider and opting to broaden coverage for now until ID weighs in with rec's. Vegetations noted on MELANIE 09/27 * 85 year old F receiving vancomycin and rocephin for possible UTI/+ blood cultures. Preliminary blood cultures with staph epi 03/02 bottles - biofire indicating mecA/C gene positive, Vancomycin appropriate until further sensitivities known. Plan Vancomycin * Increase to 1500 mg iv q 24 hours * Will repeat level in next 2 days to ensure therapeutic Pharmacy will continue to follow and will adjust dose/frequency as necessary. Thank you. Pharmacy has transitioned to AUC monitoring for vancomycin. AUC/BECKIE is the preferred PK/PD target and is associated with decreased risk of nephrotoxicity compared to traditional trough targets.
--- NOTE | 2025-09-28 10:01 | XCELERA ---
[id number]
[2025-09-28] MEDS: VANCOMYCIN HCL 1,500 MG in SODIUM CHLORIDE 0.9% 500 ML IV SCH (10:02)
[2025-09-28] MEDS: ERTAPENEM 1000MG 1,000 MG/10 ML SYR IV SCH (10:02)
--- NOTE | 2025-09-28 13:00 | Cardiology Progress Note ---
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 Head and neck CTA initially were unremarkable. Brain MRI revealed multiple areas of acute infarct in the right cerebellum. Neurology consulted. 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 Unfortunately she sustained a fall in Sep 2024 with subdural hematoma and Eliquis was discontinued. Now presenting with recurrent CVA. Appreciate neurology recommendations. Patient had prior MELANIE with bubble study in 2023 without findings of interatrial shunt. No known recurrence of afib, but findings on MRI are concerning for embolic CVA from possible afib. Family was not present at time of cardiology evaluation. Per family and hospitalist discussion, son was fairly adamant about patient resuming Eliquis for anticoagulation to prevent further strokes. Risks/benefits were discussed by hospitalist and risks/benefits were also discussed with son and neurology per notes. Her prior subdural hematoma occurred after a traumatic fall (not spontaneous). After discussion with her hospitalist, will resume anticoagulation with Eliquis 5 mg BID, first dose tonight. Stop plavix for now (just started today by neurology while anticoagulation risks/benefits were being discussed). Continue ASA 81 mg Can discuss with neurology if they would prefer plavix vs ASA going forward. Per neurology - CT of the head was recommended after initiation of Eliquis to verify no hemorrhagic conversion. This will be arranged tomorrow per hospitalist after the first 2 doses of Eliquis. Patient also found to have minimally elevated troponin. No acute EKG changes No chest pain or dyspnea reported. Likely demand ischemia in setting of acute CVA. Continue ASA, statin, metoprolol, torsemide and potassium. She has a history of HFpEF, but appears euvolemic currently. 09/27/25: Overnight patient was found to have bacteremia with + blood cultures demonstrating staph epidermis. Started on broad spectrum antibiotics. Etiology of embolic CVA may be sepsis, not PAF as initially suggested. Hold Eliquis as this is contraindicated in setting of septic emboli. Continue ASA. Source of infection is unknown. awaiting chest and abdominal CT. No abdominal pain. No back pain. Repeat head CT also ordered this morning due to Eliquis initiation yesterday. Echo with normal LVEF yesterday, calcification of the valves noted. May need MELANIE 09/28/25: Patient underwent MELANIE this morning demonstrating mitral valve echodensity consistent with vegetation/endocarditis. Moderate MR. Patient will need 6 weeks of IV antibiotic therapy. Appreciate ID input No evidence of LA thrombus. Would not resume Eliquis/anticoagulation at this time. Continue ASA. Continue metoprolol, torsemide/potassium, atorvastatin. Monitor fluid status with IV fluids and IV antibiotics. History of HFpEF Mild SOB reported this morning. Currently appears euvolemic, but consider IV diuretics if needed. Case discussed with Dr. Chandler. I spent a total of 30 minutes on the date of service in preparation, delivery, and documentation of the care provided to this patient, excluding any time spent in the performance of separately billed services. Francheska Ponce PA-C Department of Cardiology, [facility] This chart was completed in part utilizing Speech Voice Recognition Software. Grammatical errors, random word insertions, pronoun errors, and incomplete sentences are an occasional consequence of this system due to software limitations, ambient noise, and hardware issues. Any formal questions or concerns about the content, text, or information contained within the body of this dictation should be directly addressed to the provider for clarification. Continue all other home medications including ASA, statin, metoprolol, torsemide and potassium. Case discussed with Dr. Chandler I spent a total of 40 minutes on the date of service in preparation, delivery, and documentation of the care provided to this patient, excluding any time spent in the performance of separately billed services. Francheska Ponce PA-C Department of Cardiology, [facility] This chart was completed in part utilizing Speech Voice Recognition Software. Grammatical errors, random word insertions, pronoun errors, and incomplete sentences are an occasional consequence of this system due to software limitations, ambient noise, and hardware issues. Any formal questions or concerns about the content, text, or information contained within the body of this dictation should be directly addressed to the provider for clarification. Admission and Anticipated Discharge Date Admission Date: September 26, 2025 Supervising Physician Co-Signing Physician Notes I have personally performed a history and physical examination on the patient. I have reviewed the advance practitioner's documentation, and I agree with, and take responsibility for the plan of care. 85-year-old female with history of paroxysmal atrial fibrillation 2011 and prior CVA presents to the emergency department with new right sided weakness and difficulties with speech. MRI of the brain demonstrated multiple small punctate areas of acute infarction of the right cerebellum concerning for embolic phenomenon. Suffered a traumatic subdural hematoma last year with discontinuation of Eliquis. Blood cultures positive for Staph epidermidis. Transesophageal echocardiogram performed this a.m. demonstrating a mitral annular vegetation suggestive of endocarditis. Recommendations: * Antibiotics as per direction of infectious disease. * Discontinue Eliquis in setting of endocarditis with embolic phenomenon * Avoid anticoagulation for minimum of 2 weeks. * Continue statin, Toprol, torsemide, potassium, and low-dose aspirin as ordered. * MELANIE results discussed with patient's son and hospitalist service. I spent a total of 40 minutes on the date of service in preparation, delivery, and documentation of the care provided to this patient, excluding any time spent in the performance of separately billed services. Kris Chandler DO, [facility] Subjective Patient resting in bed. Notes mild SOB at rest but no cough or orthopnea. No hypoxia. No chest pain. Tolerated MELANIE this morning. Unfortunately found to have vegetation on her mitral valve, consistent with endocarditis Review of Systems Review of Systems: All systems reviewed & are unremarkable except as noted in HPI & below Physical Exam Constitutional: + ill appearing and + thin; no acute dis tress Neck: normal visual inspection Respiratory: normal respiratory effort; no labored breathing Auscultation: + diminished lung sounds; no rales and no rhonchi Cardiovascular: Rate/Rhythm: regular rate and regular rhythm Heart Sounds: + murmur (II/ systolic murmur) Gastrointestinal (Abdomen): normal bowel sounds, soft, nontender, no hepatosplenomegaly Neurologic: awake Results & Data Vital Signs (Past 12 Hours) Vital Signs Temp Pulse Pulse Pulse Resp BP BP 09/28/25 11:03 37.3 C 96 H 18 172/77 H 09/28/25 09:29 36.9 C 80 18 159/70 H 09/28/25 09:05 67 18 147/60 H 09/28/25 08:50 68 18 146/62 H 09/28/25 07:16 82 152/57 H 09/28/25 06:46 65 09/28/25 03:21 36.6 C 80 18 139/77 Pulse Ox O2 Del Method O2 Flow Rate 09/28/25 11:03 91 Room Air 09/28/25 09:29 94 Room Air 09/28/25 09:05 95 Room Air 10 09/28/25 08:50 99 Room Air 10 09/28/25 07:16 14 L Room Air 09/28/25 06:46 09/28/25 03:21 95 Room Air Laboratory Results CBC 09/28/25 Range/Units 06:16 WBC 13.36 H (4.8-10.8) K/ul RBC 3.35 L (4.20-5.40) M/uL Hgb 10.0 L (12.0-16.0) g/dl Hct 30.2 L (37.0-47.0) % Plt Count 252 (130-400) K/uL Neut # (Auto) 10.73 H (1.40-6.50) K/uL Lymph # (Auto) 1.00 L (1.20-3.40) K/uL Harnett # (Auto) 1.51 H (0.11-0.59) K/uL Eos # (Auto) 0.03 (0.00-0.50) K/uL Baso # (Auto) 0.02 (0.00-0.20) K/uL Comprehensive Metabolic Panel 09/28/25 Range/Units 06:16 Sodium 138 (136-145) mmol/L Potassium 3.5 (3.5-5.1) mmol/L Chloride 106 (98-107) mmol/L Carbon Dioxide 23 (21-32) mmol/L BUN 15 (6-23) mg/dl Creatinine 0.78 (0.6-1.2) mg/dl Glucose 130 H (70-99(Fasting)) mg/dl Calcium 8.7 (8.6-10.3) mg/dl Intake and Output 09/27/25 09/28/25 09/28/25 22:59 06:59 14:59 Intake Total 1050 / 1325 Output Total 1250 / 1275 25 / 1275 Balance -200 / 50 -25 / 50 Intake: IV 1050 / 1325 Sodium Chloride 0.9% 1,000 ml @ 1000 / 1000 80 mls/hr IV .[id number] [facility] Rx#: [id number] SODIUM 2,000 mg In 50 / 50 50 ml @ 100 mls/hr IV Q24H [facility] Rx#:[id number] Output: Urine Amount (Catheter) 1250 / 1275 1275 External 1250 / 1275 1274 Other: Other Intake Source Sips NPO # Unmeasured Voids 2 Weight 74.7 kg 74.7 kg Weight Measurement Method Built in [facility] Patient Weight 09/29/25 06:59 Weight 74.7 kg Diagnostic Findings Telemetry reviewed: NSR in the -'s MELANIE report reviewed from this morning: Small mobile echodensity adherent to the ventricular surface of the posterior mitral annular calcification consistent with the vegetation. Moderate MAC Mitral valve leaflets are thickened but open well. moderate MR. LVEF is normal at 65-70% Mild LVH No thrombus detected in the LA appendage Aortic valve sclerosis mild without significant Moderate to severe calcified atheroma in visualized portions of the descending thoracic aorta Medications Administered Current Inpatient Medications Acetaminophen (Acetaminophen 325 Mg Tab) 650 mg PO QID PRN PRN Reason: pain/fever Stop: 10/26/25 20:14 Albuterol (Albuterol Hfa Inhaler 8.5 Gm) 2 puffs INH Q4H PRN PRN Reason: Shortness Of Breath Or Wheezing Stop: 10/26/25 05:50 Apixaban (Apixaban 5 Mg Tablet) 5 mg PO BID [facility] Stop: 10/26/25 20:59 Last Admin: 09/27/25 08:40 Dose: 5 mg Aspirin (Aspirin 81 Mg Ectab) 81 mg PO DAILY ALYSA Stop: 10/26/25 08:59 Last Admin: 09/26/25 08:41 Dose: 81 mg Atorvastatin Calcium (Atorvastatin 40 Mg Tab) 80 mg PO QAM ALYSA Stop: 10/26/25 08:59 Last Admin: 09/28/25 10:29 Dose: Not Given Azelastine HCl (Azelastine Hcl 0.1% Nasal 200 Sprays/27,400 Mcg Btl) 2 sprays NA QPM [facility] Stop: 10/26/25 20:59 Last Admin: 09/27/25 20:34 Dose: 2 sprays Bimatoprost (Bimatoprost 0.01% Op Soln 2.5 Ml Btl) 1 drops OPB HS [facility] Stop: 10/26/25 20:59 Last Admin: 09/27/25 20:34 Dose: 1 drops Diclofenac Sodium (Diclofenac Sod 1% Gel 100 Gm Tube) 2 gm EXT TID PRN; Protocol PRN Reason: Pain Stop: 10/26/25 05:25 Fluticasone Propionate (Fluticasone Propionate Na Spr 16 Gm Btl) 2 sprays NA DAILY ALYSA Stop: 10/26/25 08:59 Last Admin: 09/27/25 08:41 Dose: 2 sprays Fluticasone/Vilanterol (Fluticasone/Vilanterol 200/25mcg 14 Puffs/Inhaler) 1 puffs INH DAILY ALYSA Stop: 10/26/25 08:59 Last Admin: 09/27/25 08:41 Dose: 1 puffs Guaifenesin (Guaifenesin 600 Mg Tabcr) 600 mg PO Q12H PRN PRN Reason: Congestion Stop: 10/26/25 05:25 Sodium Chloride (Nss) 1,000 mls @ 80 mls/hr IV .[id number] ALYSA Stop: 09/29/25 05:25 Last Admin: 09/27/25 22:19 Dose: 80 mls/hr Vancomycin HCl 1,500 mg/ (Sodium Chloride) 530 mls @ 200 mls/hr IV DAILY ALYSA Stop: 10/12/25 09:29 Last Admin: 09/28/25 10:02 Dose: 200 mls/hr Ertapenem (Invanz 1000mg) 1,000 mg in 10 mls @ 2 mls/min IV DAILY ALYSA Stop: 10/08/25 09:59 Last Admin: 09/28/25 10:02 Dose: 2 mls/min Ketoconazole (Ketoconazole 2% Cr 15 Gm Tube) 1 appln EXT DAILY PRN PRN Reason: Rash Stop: 10/06/25 05:25 Levothyroxine Sodium (Levothyroxine Sodium 75 Mcg Tablet) 75 mcg PO DAILYBB ALYSA Stop: 10/26/25 06:29 Last Admin: 09/28/25 05:45 Dose: Not Given Magnesium Oxide (Magnesium Oxide 400 Mg Tab) 400 mg PO DAILY ALYSA Stop: 10/26/25 08:59 Last Admin: 09/27/25 08:40 Dose: 400 mg Metoprolol Succinate (Metoprolol Succ 25mg Ext Rel Tab) 25 mg PO DAILY ALYSA Stop: 10/26/25 08:59 Last Admin: 09/27/25 10:14 Dose: 25 mg Miscellaneous Information (Pharmacist Discharge Med Rec Consult) 1 each N/A UD PRN PRN Reason: Consult Stop: 10/26/25 05:25 Miscellaneous Information (Vancomycin Consult Active) 1 each N/A UD PRN PRN Reason: Consult Stop: 10/26/25 17:44 Montelukast Sodium (Montelukast Sodium 10 Mg Tablet) 10 mg PO DAILY ALYSA Stop: 10/26/25 08:59 Last Admin: 09/27/25 08:40 Dose: 10 mg Multivitamins/Minerals (Cerovite Adv Formula Tab) 1 tab PO DAILY ALYSA Stop: 10/26/25 08:59 Last Admin: 09/27/25 08:39 Dose: 1 tab Nitroglycerin (Nitroglycerin Sl 0.4 Mg/Tab Tab) 0.4 mg SL Q5M PRN PRN Reason: Chest Pain Stop: 10/26/25 05:25 Nystatin (Nystatin Cr 15 Gm Tube) 1 appln EXT BID PRN PRN Reason: Rash Stop: 10/26/25 05:25 Oxybutynin Chloride (Oxybutynin Chloride Xl 5 Mg Tabcr) 10 mg PO DAILY ALYSA Stop: 10/26/25 08:59 Last Admin: 09/27/25 08:40 Dose: 10 mg Pantoprazole Sodium (Pantoprazole 40 Mg Tab) 40 mg PO DAILY ALYSA Stop: 10/26/25 08:59 Last Admin: 09/27/25 08:40 Dose: 40 mg Polyethylene Glycol (Polyethylene (Miralax) 17 Gm Pack) 17 gm PO DAILY PRN PRN Reason: Constipation Stop: 10/26/25 05:25 Potassium Chloride (Potassium Chloride Crtab 20 Meq Tabcr) 20 meq PO BID ALYSA Stop: 10/26/25 08:59 Last Admin: 09/27/25 20:35 Dose: 20 meq Torsemide (Torsemide 20 Mg Tab) 20 mg PO DAILY ALYSA Stop: 10/26/25 08:59 Last Admin: 09/27/25 08:40 Dose: 20 mg Vitamin B Complex (Vitamin B Complex Tab) 1 tab PO DAILY ALYSA Stop: 10/26/25 08:59 Last Admin: 09/28/25 10:30 Dose: Not Given PG Care Time/CCT Total # of Minutes Spent Total Time Spent with Patient: Total time spent is greater than 50% in coordination of care (as documented) at patient's floor/unit and/or counseling patient: 40 minutes Coding Level of Care Code 18421 SUB INP/OBS CARE 3/50MIN Diagnoses 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
--- NOTE | 2025-09-28 13:49 | Fluoroscopy Report ---
FL video swallow CLINICAL HISTORY: r/o aspiration. TECHNIQUE: Video fluoroscopic evaluation of swallowing was performed in the AP and lateral projection s by the speech pathology staff. The patient is fed nectar-thick and thin liquid barium, a barium coa austen wafer, and barium pudding. FLUOROSCOPY TIME: 2 minutes 12 seconds. COMPARISON: None FINDINGS: There is aspiration with thin liquid. IMPRESSION: Aspiration with thin liquid. ACT 112: Negative or not required by law. Electronically signed by: Jake Pink M.D. 09/28/2025 1:48 PM
--- NOTE | 2025-09-28 14:51 | Communication Note ---
Date of Service: September 28, 2025 EMR reviewed, patient found to be bacteremic Cardiology consulted has undergone imaging/echo to confirm vegetation on mitral valve. Do not recommend full anticoagulation at this time. Recommend continue antiplatelet and statin therapy. Continue to monitor for s/s of hemorrhage.
--- NOTE | 2025-09-28 16:19 | Hospitalist Progress Note ---
Date of Service September 28, 2025 Assessment & Plan (1) Stroke-like symptoms: Plan: In summary 85-year-old female with past medical history significant for type 2 diabetes, hypertension, hypothyroidism, dyslipidemia, sleep apnea, mild persistent asthma, paroxysmal atrial fibrillation, CKD stage III, chronic CHF, CAD s/p LAD Stent, Hypertension, GERD, Stress Female Incontinence, Degenerative Disc Disease, History of Left-Sided Weakness from Stroke, History of Expressive Aphasia, Depression, History of Subdural Hematoma admitted for strokelike symptoms and appears to have had a cardioembolic stroke. Patient with SDH 08/2024 and taken off of eliquis at that time. Blood cultures from 09/26 revealed 4/4 staph epi +MEC. MELANIE today shows mitral valve vegetations #Staph Epi Bacteremia 4/4 cultures on admission positive,repeat ordered yesterday pending CT abd/p and chest ordered: no clear source identified, no wounds noted, no devices/prosthetics Vanc started. Now on ertapenem in light of bacterial endocarditis ID consulted: follow susceptibilities will need IV abx for 6 weeks, will coordinate with ID #UTI dysuria reported culture with e coli Continue antibiotics #Cardioembolic stroke, right cerebellum last known normal 9am 09/25 expressive aphasia noted, RUE weakness, weakness noted CT head no acute findings CTA head and neck no acute findings MRI with right cerebellar stroke, appears embolic per review of report No afib detected thus far Concern for possible embolic stoke iso bacteremia -Holding eliquis -Cardiology: MELANIE done 09/28 Resume ASA for now, per neuro antiplatelet agents okay but no full anticoagulation #Elevated troponin likely demand iso stroke/poor po/like PAF event trend troponin no active signs of acs at this time #Ambulatory dysfunction PT OT when stable #Paroxysmal atrial fibrillation Continue metoprolol No longer anticoagulation secondary to 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 #Chronic heart failure preserved ejection fraction Continue torsemide with potassium supplement Monitor for volume overload #Hypertension Continue Toprol and torsemide Hold losartan for permissive hypertension Will monitor #CAD status post LAD stent in 1999 On aspirin statin and beta-monico #Hypothyroidism On Synthyroid #History of diabetes not not on meds Not on meds Will follow HbA1c levels #Stress urinary incontinence On Ditropan #Asthma Currently stable Continue home inhalers #GERD On PPI DVT prophylaxis Continue SCDS Continue on Telemetry Condition guarded at present Full code. Total of 57 minutes spent in care and care coordination for this patient Admission and Anticipated Discharge Date Admission Date: September 26, 2025 Subjective Chart, vital signs and data reviewed. Patient seen post MELANIE. Tolerated MELANIE this morning. Unfortunately has vegetations on the mitral valve, consistent with endocarditis. During my evaluations he still little groggy after the MELANIE. She denies any chest pain or shortness of breath. Physical Exam Physical Exam: General- adult, elderly female seen at bedside. Anesthesia staff and nursing present. Pale, chronic ill appearance Eyes- PERRL, EOMI, anicteric ENT- oropharynx clear Neck- supple, no JVD, Lungs-diminished bibasilar breath sounds otherwise clear to auscultation and percussion Heart- regular rhythm; 2/6 systolic murmur Abdomen- normal bowel sounds, soft, nontender, no masses or hepatosplenomegaly Extremities- no pretibial edema, no calf tenderness; peripheral pulses intact Neuro- alert, still little groggy from the anesthesia from the MELANIE. Moves all extremities. Skin- warm & dry Results & Data Results & Data Vital Signs (Past 12 Hours) Vital Signs Temp Pulse Pulse Pulse Resp BP BP 09/28/25 14:47 94 H 09/28/25 11:03 37.3 C 96 H 18 172/77 H 09/28/25 09:29 36.9 C 80 18 159/70 H 09/28/25 09:05 67 18 147/60 H 09/28/25 08:50 68 18 146/62 H 09/28/25 08:33 09/28/25 07:16 82 152/57 H 09/28/25 06:46 65 Pulse Ox O2 Del Method O2 Flow Rate 09/28/25 14:47 09/28/25 11:03 91 Room Air 09/28/25 09:29 94 Room Air 09/28/25 09:05 95 Room Air 10 09/28/25 08:50 99 Room Air 10 09/28/25 08:33 Room Air 09/28/25 07:16 14 L Room Air 09/28/25 06:46 Laboratory Results Short CBC 09/28/25 Range/Units 06:16 WBC 13.36 H (4.8-10.8) K/ul Hgb 10.0 L (12.0-16.0) g/dl Hct 30.2 L (37.0-47.0) % Plt Count 252 (130-400) K/uL BMP 09/28/25 06:16 Sodium 138 Potassium 3.5 Chloride 106 Carbon Dioxide 23 BUN 15 Creatinine 0.78 Glucose 130 H Calcium 8.7 Diagnostic Findings Laboratory Results WBC 13.36 K/ul (4.8-10.8) H 09/28/25 06:16 RBC 3.35 M/uL (4.20-5.40) L 09/28/25 06:16 Hgb 10.0 g/dl (12.0-16.0) L 09/28/25 06:16 Hct 30.2 % (37.0-47.0) L 09/28/25 06:16 MCV 90.1 fL (80.0-100.0) 09/28/25 06:16 MCH 29.9 pg (25.0-34.0) 09/28/25 06:16 MCHC 33.1 g/dL (32.0-36.0) 09/28/25 06:16 RDW Std Deviation 45.9 fL (36.4-46.3) 09/28/25 06:16 RDW Coeff of [place] 13.9 % (11.5-14.5) 09/28/25 06:16 Plt Count 252 K/uL (130-400) 09/28/25 06:16 MPV 11.0 fL (9.4-12.4) 09/28/25 06:16 Immature Gran % (Auto) 0.5 % 09/28/25 06:16 Neut % (Auto) 80.4 % 09/28/25 06:16 Lymph % (Auto) 7.5 % 09/28/25 06:16 [place] % (Auto) 11.3 % 09/28/25 06:16 Eos % (Auto) 0.2 % 09/28/25 06:16 Baso % (Auto) 0.1 % 09/28/25 06:16 Neut # (Auto) 10.73 K/uL (1.40-6.50) H 09/28/25 06:16 Lymph # (Auto) 1.00 K/uL (1.20-3.40) L 09/28/25 06:16 [place] # (Auto) 1.51 K/uL (0.11-0.59) H 09/28/25 06:16 Eos # (Auto) 0.03 K/uL (0.00-0.50) 09/28/25 06:16 Baso # (Auto) 0.02 K/uL (0.00-0.20) 09/28/25 06:16 Immature Gran # (Auto) 0.07 K/uL (0.01-0.20) 09/28/25 06:16 Sodium 138 mmol/L (136-145) 09/28/25 06:16 Potassium 3.5 mmol/L (3.5-5.1) 09/28/25 06:16 Chloride 106 mmol/L (98-107) 09/28/25 06:16 Carbon Dioxide 23 mmol/L (21-32) 09/28/25 06:16 Anion Gap 9 (3-11) 09/28/25 06:16 BUN 15 mg/dl (6-23) 09/28/25 06:16 Creatinine 0.78 mg/dl (0.6-1.2) 09/28/25 06:16 Est Cr Clr Drug Dosing 47.9 ml/min 09/28/25 06:16 eGFR 73.92 09/28/25 06:16 BUN/Creatinine Ratio 19.2 (10-20) 09/28/25 06:16 Glucose 130 mg/dl (70-99(Fasting)) H 09/28/25 06:16 Estimat Average Glucose 143 mg/dl 09/27/25 06:49 Hemoglobin A1c 6.6 % (4.5-5.6) H 09/27/25 06:49 Calcium 8.7 mg/dl (8.6-10.3) 09/28/25 06:16 Phosphorus 2.5 mg/dl (2.5-4.9) 09/28/25 06:16 Magnesium 1.8 mg/dl (1.7-2.4) 09/28/25 06:16 Total Bilirubin 0.3 mg/dl (0.2-1.0) 09/25/25 23:09 AST 15 U/L (13-39) 09/25/25 23:09 ALT 13 U/L (7-52) 09/25/25 23:09 Alkaline Phosphatase 73 U/L (34-104) 09/25/25 23:09 Troponin I High Sens 705.4 pg/ml (0-14) H* D 09/27/25 06:49 Total Protein 7.3 gm/dl (6.0-8.3) 09/25/25 23:09 Albumin 3.5 gm/dl (3.4-5.0) 09/25/25 23:09 Globulin 3.8 gm/dl (2.5-4.0) 09/25/25 23:09 Albumin/Globulin Ratio 0.9 (0.9-2) 09/25/25 23:09 Triglycerides 85 mg/dl (0-150) 09/27/25 06:49 Cholesterol 115 mg/dl (0-200) 09/27/25 06:49 LDL Cholesterol, Calc 53 mg/dl 09/27/25 06:49 VLDL Cholesterol, Calc 17 mg/dl (0-30) 09/27/25 06:49 HDL Cholesterol 45 mg/dl 09/27/25 06:49 Cholesterol/HDL Ratio 2.6 (0-5) 09/27/25 06:49 TSH 0.587 uIu/ml (0.300-4.500) 09/25/25 23:09 Urine Color Dark Yellow 09/25/25 22:50 Urine Appearance Cloudy (Clear) A 09/25/25 22:50 Urine pH 6.0 (4.5-7.5) 09/25/25 22:50 Ur Specific [place] 1.012 (1.000-1.030) 09/25/25 22:50 Urine Protein Trace (Negative) H 09/25/25 22:50 Urine Glucose (UA) Negative (Negative) 09/25/25 22:50 Urine Ketones Negative (Negative) 09/25/25 22:50 Urine Blood Trace (Negative) H 09/25/25 22:50 Urine Nitrite Positive (Negative) A 09/25/25 22:50 Urine Bilirubin Negative (Negative) 09/25/25 22:50 Urine Urobilinogen Negative (Negative) 09/25/25 22:50 Ur Leukocyte Esterase 3+ (Negative) H 09/25/25 22:50 Urine WBC (Auto) >50 /hpf (0-5) H 09/25/25 22:50 Urine RBC (Auto) 0-2 /hpf (0-2) 09/25/25 22:50 U Hyaline Cast (Auto) 3-5 /lpf (0-2) H 09/25/25 22:50 U Epithel Cells (Auto) 0-2 /hpf (0-2) 09/25/25 22:50 Urine Bacteria (Auto) 4+ (None Seen) H 09/25/25 22:50 Urine Comment 09/25/25 22:50 Nasal Screen MRSA (PCR) Negative (Negative) 09/26/25 17:50 Random Vancomycin 11.5 mcg/ml (10-20) 09/28/25 06:16 Staphylococcus sp PCR DETECTED (NotDetected) A 09/26/25 01:48 mecA/C-Methicil Resis Gene DETECTED (NotDetected) A 09/26/25 01:48 Staph epidermidis (PCR) DETECTED (NotDetected) A 09/26/25 01:48 Bld Cult ID Panel PCR See PCR Comment (NotDetected) 09/26/25 01:48 Impressions Chest X-Ray 09/25/25 22:40 Exam(s): XR CXR 1 VIEW EXAM: XR Chest, 1 View CLINICAL HISTORY: Reason for exam: weakness. TECHNIQUE: Frontal view of the chest. COMPARISON: 09/18/2025 FINDINGS: Lungs: Unremarkable. No consolidation. Pleural space: Unremarkable. No pneumothorax. Heart: Unremarkable. No cardiomegaly. Mediastinum: Unremarkable. Normal mediastinal contour. Bones/joints: Unremarkable. No acute fracture. IMPRESSION: Normal chest x-ray. Electronically signed by: Bowen Mendes MD 09/26/25 00:05 AM Head CTA 09/25/25 22:42 EXAM: CT angio head w con CLINICAL HISTORY: neuro deficit, acute stroke suspected TECHNIQUE: A contrast-enhanced, thin-slice CT angiography scan of the cerebral vessels was performed with intravenous contrast. Angiographic images were processed, and 3D MIP images were acquired for interpretation. Contiguous axial images were obtained. Reformatted coronal and sagittal images were also reviewed. If IV contrast material had not been administered, the likelihood of detecting abnormalities relevant to the patient's condition would have been substantially decreased. The CT scan was performed according to ALARA (as low as reasonably achievable) principles. COMPARISON: None. 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 The bilateral internal carotid arteries show normal course, calibre, and opacification in the canalicular and cavernous parts. Their division into the anterior cerebral artery and middle cerebral artery is defined. The A1, A2, M1, and M2 segments are normal on both sides. Bilateral vertebral arteries are seen to unite to form the basilar artery in a normal fashion. The basilar artery shows normal course, caliber, and opacification. Its division into the posterior cerebral arteries is defined. Bilateral P1 and P2 segments are normal. The visualized venous structures show normal opacification. There is no evidence of intracranial aneurysm or arteriovenous malformation. IMPRESSION: No evidence of stenosis or aneurysm. No evidence of dissection. Electronically signed by Kumar Whyte 09-26-2025 12:59 AM Neck CTA 09/25/25 22:42 EXAM: CT angio neck with con CLINICAL HISTORY: neuro deficit, acute stroke suspected TECHNIQUE: Contrast-enhanced thin-slice CT angiography scan of the carotid vessels was performed with intravenous contrast. Angiographic images were processed, and 3D MIP images were acquired for interpretation. Contiguous axial images were obtained. Reformatted coronal and sagittal images were also reviewed. If intravenous contrast material had not been administered, the likelihood of detecting abnormalities relevant to the patient's condition would have been substantially decreased. The CT scan was performed according to ALARA (as low as reasonably achievable) principles. COMPARISON: 13:01:29 [employer] FINDINGS: The included great vessels of the aortic arch are grossly unremarkable. The common carotid artery, carotid bulb, internal carotid artery, and origin of the external carotid artery are well opacified. The vertebral arteries are well opacified. The jugular veins are well opacified. The included lung apices are grossly unremarkable. The thyroid gland appears unremarkable. IMPRESSION: No evidence of stenosis or aneurysm. No evidence of dissection. No other new interval abnormality since prior study. Electronically signed by Kumar Whyte 09-26-2025 12:59 AM Brain MRI 09/26/25 05:26 MRI OF THE BRAIN COMBO CLINICAL HISTORY: Stroke like symptoms. Hypertrophy weakness. Speech difficulty. COMPARISON STUDY: MRI of the brain August 24, 2025. Head CT and CTA of the head performed earlier today. TECHNIQUE: MRI of the brain was performed utilizing various T1 and T2-weighted sequences in the axial, sagittal, and coronal planes. Contrast-enhanced sequences were acquired following the administration of 7.5 cc of Gadavist. FINDINGS: Note is made of a 6 mm focus of restricted diffusion within the inferior right cerebellar hemisphere on diffusion-weighted sequence image 6 of 32. This is hypointense on the ADC map. There are numerous additional smaller foci of restricted diffusion. The majority of these are punctate. These represent small acute infarcts. There is no hemorrhage. There is no mass effect. Ventricular system is unremarkable. Basal cisterns are patent. There are no extra-axial collections. White matter T2 hyperintense foci are unchanged since previous MRI of August 24, 2025 represent small vessel disease. There is no intracranial mass or pathologic enhancement. There are no calvarial lesions. There is no evidence for sinusitis. There is no mastoid fluid. IMPRESSION: Multiple small foci of restricted diffusion, the largest of which is a 6 mm inferior right cerebellar focus. These are consistent with small acute infarcts and suggest an embolic etiology. No mass effect. No hemorrhage. The findings will be called/faxed to the ordering provider at time of dictation. ACT 112: Negative or not required by law. Electronically signed by: Guillaume Borrego M.D. 09/26/2025 10:[address] 09/27/25 07:30 CT SCAN OF THE BRAIN WITHOUT IV CONTRAST CLINICAL HISTORY: Assess for bleed. COMPARISON STUDY: Head CT, CTA of the head and MRI of the brain September 26, 2025. TECHNIQUE: Unenhanced axial CT scan of the brain was performed from the vertex to the skull base. A dose lowering technique was utilized adhering to the principles of ALARA. CT DOSE: 625.8 mGy.cm FINDINGS: No acute intracranial hemorrhage, midline shift or mass effect is present. Ventricular system is stable. Basal cisterns are patent. There are extra-axial collections. The small acute infarcts on MRI of September 26, [address]. White matter hypodensities suggest small vessel disease. There are no calvarial fractures. IMPRESSION: 1. No acute intracranial hemorrhage or mass effect. 2. The multiple small acute infarcts on MRI of September 26, [address]. ACT 112: Negative or not required by law. Electronically signed by: Guillaume Borrego M.D. 09/27/2025 9:38 AM Abdomen/Pelvis CTA 09/27/25 08:10 CT angio abd pelvis wo/w con HISTORY: 85 years-old Female MRSA bactermia COMPARISON: CT abdomen and pelvis 12/22/2023 TECHNIQUE: CTA abdomen and pelvis was obtained with and without IV contrast. 3-D coronal and sagittal MIPS were obtained and were submitted for review. All measurements were obtained according to NASCET criteria. A dose lowering technique was used consistent with the principals of ALARA. FINDINGS: Chest CT dictated separately. CTA: Moderate atherosclerosis of the abdominal aorta and branch vessels without aneurysm or dissection. Iliac and imaged femoral arteries are patent. High-grade stenosis of the origin of the celiac trunk. Moderate stenosis at the origin of the superior mesenteric artery. Stenosis of the renal arteries, mild on the right and moderate on the left. There is high-grade stenosis involving an accessory artery to the inferior pole right kidney. There is the inferior mesenteric artery is patent. No active extravasation. CT ABDOMEN/PELVIS: Unremarkable spleen. Thickening of adrenal gland suggestive of hyperplasia. Moderate to advanced atrophy of the pancreas. No hydronephrosis. There is a small exophytic cyst of the posterior interpolar left kidney. Duplicated collecting systems and ureters on the left. Unremarkable urinary bladder. No lymphadenopathy. Moderate sized hiatal hernia. Colonic diverticulosis without acute diverticulitis. Moderate colonic fecal retention. Multilevel degenerative changes of the spine. No acute fracture or osseous erosion. IMPRESSION: 1. No acute intra-abdominal or intrapelvic abnormality. 2. No moderate colonic fecal retention. 3. Colonic diverticulosis without acute diverticulitis. 4. Moderate-sized hiatal hernia. 5. Atherosclerosis of the aorta and branch vessels with mild to moderate multifocal stenoses. There is high-grade stenosis at the origin of the celiac trunk. ACT 112: Negative or not required by law. The above report was generated using voice recognition software. It may contain grammatical, syntax or spelling errors. Electronically signed by: Talib Morales M.D. 09/27/2025 12:[address] 09/27/25 08:10 CT chest diagnostic wo/w con HISTORY: 85 years-old Female MRSA bactermia COMPARISON: CTA abdomen and pelvis of same day, CTA chest 08/03/2024 TECHNIQUE: Multiple axial CT images of the chest were obtained with and without IV contrast. A dose lowering technique was used consistent with the principals of ALARA. FINDINGS: Unremarkable thyroid. Subcentimeter lymph nodes of the mediastinum and zo measuring up to 9 mm are likely physiologic. Moderate cardiomegaly with trace pericardial effusion. Extensive coronary artery calcifications with prominent mitral annular calcifications. No thoracic aortic aneurysm or dissection. Dilated main pulmonary artery, 3.9 cm. No pulmonary emboli are seen. Trace pleural effusions with mild dependent subsegmental bibasilar atelectasis. There is no pneumothorax, pleural effusion, lobar airspace consolidation or pulmonary edema. Minimal left basilar mucous plugging. No suspicious pulmonary nodules or masses are seen. Central airways are patent. Unremarkable soft tissues. Moderate-sized hiatal hernia. No acute fracture or abnormal enhancement within the chest. CT abdomen and pelvis dictated separately. IMPRESSION: 1. No acute intrathoracic abnormality. 2. Cardiomegaly with pulmonary arterial hypertension. 3. Moderate sized hiatal hernia. 4. Trace pleural effusions with mild dependent bibasilar atelectasis. ACT 112: Negative or not required by law. The above report was generated using voice recognition software. It may contain grammatical, syntax or spelling errors. Electronically signed by: Talib Morales M.D. 09/27/2025 11:57 AM Videofluoroscopic Swallow 09/28/25 11:30 FL video swallow CLINICAL HISTORY: r/o aspiration. TECHNIQUE: Video fluoroscopic evaluation of swallowing was performed in the AP and lateral projections by the speech pathology staff. The patient is fed nectar-thick and thin liquid barium, a barium coated wafer, and barium pudding. FLUOROSCOPY TIME: 2 minutes 12 seconds. COMPARISON: None FINDINGS: There is aspiration with thin liquid. IMPRESSION: Aspiration with thin liquid. ACT 112: Negative or not required by law. Electronically signed by: Jake Pink M.D. 09/28/2025 1:48 PM
[2025-09-29 08:25] LABS: Hematocrit (blood only) 31.7 % (37.0-47.0); Hemoglobin 10.2 g/dl (12.0-16.0); Immature Granulocytes # (auto) 0.08 K/uL (0.01-0.20); Immature Granulocytes % (auto) 0.6 %; Mean Corpuscular Hemoglobin 29.2 pg (25.0-34.0); Mean Corpuscular Volume 90.8 fL (80.0-100.0); Platelet Count 290 K/uL (130-400); RDW Standard Deviation 46.2 fL (36.4-46.3); Red Blood Count 3.49 M/uL (4.20-5.40); White Blood Count 13.59 K/ul (4.8-10.8)
[2025-09-29 08:42] LABS: Anion Gap 9.0 (3-11); Blood Urea Nitrogen 15.0 mg/dl (6-23); Calcium 9.1 mg/dl (8.6-10.3); Carbon Dioxide 25.0 mmol/L (21-32); Chloride 107.0 mmol/L (98-107); Creatinine Clr Calc Pharmacy 52.4 ml/min; Glucose 132.0 mg/dl (70-99(Fasting)); Magnesium 1.8 mg/dl (1.7-2.4); Potassium 3.5 mmol/L (3.5-5.1); Sodium 141.0 mmol/L (136-145)
--- NOTE | 2025-09-29 14:20 | Hospitalist Progress Note ---
Date of Service September 29, 2025 Assessment & Plan (1) Stroke-like symptoms: Plan: In summary 85-year-old female with past medical history significant for type 2 diabetes, hypertension, hypothyroidism, dyslipidemia, sleep apnea, mild persistent asthma, paroxysmal atrial fibrillation, CKD stage III, chronic CHF, CAD s/p LAD Stent, Hypertension, GERD, Stress Female Incontinence, Degenerative Disc Disease, History of Left-Sided Weakness from Stroke, History of Expressive Aphasia, Depression, History of Subdural Hematoma admitted for strokelike symptoms and appears to have had a cardioembolic stroke. Patient with SDH 08/2024 and taken off of eliquis at that time. Blood cultures from 09/26 revealed 4/4 staph epi +MEC. MELANIE today shows mitral valve vegetations #Staph Epi Bacteremia 4/4 cultures on admission positive- Staph epidermidis that is resistant to oxacillin CT abd/p and chest ordered: no clear source identified, no wounds noted, no devices/prosthetics MELANIE demonstrated bacterial endocarditis Vanc started and ertapenem was added due to endocarditis on MELANIE ID consulted: appreciate input and recommendation and will need to update with the antibiotic Repeat blood cultures have been negative Will keep in touch with ID for further recommendation of antibiotic and duration #UTI- ESBL E. coli dysuria reported culture with e coli- urine culture is growing ESBL E. coli and the patient has been on ertapenem which is sensitive Continue antibiotics #Cardioembolic stroke, right cerebellum last known normal 9am 09/25 expressive aphasia noted, RUE weakness, weakness noted CT head no acute findings CTA head and neck no acute findings MRI with right cerebellar stroke, appears embolic per review of report No afib detected thus far Concern for possible embolic stoke iso bacteremia -Holding eliquis -Cardiology: MELANIE done 09/28 Resume ASA for now, per neuro antiplatelet agents okay but no full anticoagulation With the history of subdural hematoma will not restart Eliquis #Elevated troponin likely demand iso stroke/poor po/like PAF event trend troponin no active signs of acs at this time #Ambulatory dysfunction awaiting PT and OT evaluation prior to discharge #Paroxysmal atrial fibrillation Continue metoprolol No longer anticoagulation secondary to 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 #Chronic heart failure preserved ejection fraction Continue torsemide with potassium supplement Monitor for volume overload No evidence of fluid overload and/or symptoms from CHF #Hypertension Continue Toprol and torsemide Hold losartan for permissive hypertension Will monitor #CAD status post LAD stent in 1999 On aspirin statin and beta-monico #Hypothyroidism On Synthyroid #History of diabetes not not on meds Not on meds Will follow HbA1c levels #Stress urinary incontinence On Ditropan #Asthma Currently stable Continue home inhalers #GERD On PPI DVT prophylaxis Continue SCDS Continue on Telemetry Condition guarded at present Full code. Admission and Anticipated Discharge Date Admission Date: September 26, 2025 Subjective 09/29/2025 Patient was seen and examined in telemetry unit She has been feeling a little better but remains extremely weak and lethargic Denies any cardiac and respiratory symptoms Has not had any physical therapy yet Review of Systems Review of Systems: All systems reviewed and are unremarkable except as noted below Physical Exam Physical Exam: Lying in bed without any acute distress Constitutional: well developed, well nourished, + ill appearing and + obese Eyes: PERRL, conjunctivae normal, anicteric sclerae ENMT: external ear and nose normal, oropharynx normal Neck: trachea midline, no thyromegaly Respiratory: no respiratory distress Auscultation: lungs clear to auscultation bilaterally Cardiovascular: Rate/Rhythm: regular rate and regular rhythm; not tachycardic Heart Sounds: normal S1, normal S2 and + murmur Extremities: no edema Gastrointestinal (Abdomen): Inspection/Auscultation: normal bowel sounds; abdomen not distended Percussion/Palpation: abdomen soft; abdomen nontender Musculoskeletal: No acute arthritis involving any of the joint Neurologic: normal touch/pain/proprioception and moves all extremities; no focal motor deficits remains generally weak and lethargic Lymphatic: no cervical or axillary lymphadenopathy Results & Data Results & Data Vital Signs (Past 12 Hours) Vital Signs Temp Pulse Pulse Resp BP BP Pulse Ox 09/29/25 11:52 70 09/29/25 11:13 36.5 C 79 18 154/74 H 90 09/29/25 07:22 36.7 C 87 18 158/76 H 92 09/29/25 03:27 36.5 C 79 16 144/72 H 91 O2 Del Method 09/29/25 11:52 09/29/25 11:13 Room Air 09/29/25 07:22 Room Air 09/29/25 03:27 Room Air Laboratory Results Short CBC 09/29/25 Range/Units 07:31 WBC 13.59 H (4.8-10.8) K/ul Hgb 10.2 L (12.0-16.0) g/dl Hct 31.7 L (37.0-47.0) % Plt Count 290 (130-400) K/uL BMP 09/29/25 07:31 Sodium 141 Potassium 3.5 Chloride 107 Carbon Dioxide 25 BUN 15 Creatinine 0.72 Glucose 132 H Calcium 9.1 Medications Administered Current Inpatient Medications Acetaminophen (Acetaminophen 325 Mg Tab) 650 mg PO QID PRN PRN Reason: pain/fever Stop: 10/26/25 20:14 Albuterol (Albuterol Hfa Inhaler 8.5 Gm) 2 puffs INH Q4H PRN PRN Reason: Shortness Of Breath Or Wheezing Stop: 10/26/25 05:50 Aspirin (Aspirin 81 Mg Ectab) 81 mg PO DAILY ALYSA Stop: 10/26/25 08:59 Last Admin: 09/29/25 07:47 Dose: 81 mg Atorvastatin Calcium (Atorvastatin 40 Mg Tab) 80 mg PO QAM ALYSA Stop: 10/26/25 08:59 Last Admin: 09/29/25 07:47 Dose: 80 mg Azelastine HCl (Azelastine Hcl 0.1% Nasal 200 Sprays/27,400 Mcg Btl) 2 sprays NA QPM ALYSA Stop: 10/26/25 20:59 Last Admin: 09/28/25 21:13 Dose: 2 sprays Bimatoprost (Bimatoprost 0.01% Op Soln 2.5 Ml Btl) 1 drops OPB HS ALYSA Stop: 10/26/25 20:59 Last Admin: 09/28/25 21:13 Dose: 1 drops Diclofenac Sodium (Diclofenac Sod 1% Gel 100 Gm Tube) 2 gm EXT TID PRN; Protocol PRN Reason: Pain Stop: 10/26/25 05:25 Fluticasone Propionate (Fluticasone Propionate Na Spr 16 Gm Btl) 2 sprays NA DAILY ALYSA Stop: 10/26/25 08:59 Last Admin: 09/29/25 07:48 Dose: 2 sprays Fluticasone/Vilanterol (Fluticasone/Vilanterol 200/25mcg 14 Puffs/Inhaler) 1 puffs INH DAILY ALYSA Stop: 10/26/25 08:59 Last Admin: 09/29/25 07:49 Dose: 1 puffs Guaifenesin (Guaifenesin 600 Mg Tabcr) 600 mg PO Q12H PRN PRN Reason: Congestion Stop: 10/26/25 05:25 Vancomycin HCl 1,500 mg/ (Sodium Chloride) 530 mls @ 200 mls/hr IV DAILY ALYSA Stop: 10/12/25 09:29 Last Infusion: 09/29/25 12:02 Dose: Infused Ertapenem (Invanz 1000mg) 1,000 mg in 10 mls @ 2 mls/min IV DAILY ALYSA Stop: 10/08/25 09:59 Last Admin: 09/29/25 10:19 Dose: 2 mls/min Ketoconazole (Ketoconazole 2% Cr 15 Gm Tube) 1 appln EXT DAILY PRN PRN Reason: Rash Stop: 10/06/25 05:25 Levothyroxine Sodium (Levothyroxine Sodium 75 Mcg Tablet) 75 mcg PO DAILYBB ALYSA Stop: 10/26/25 06:29 Last Admin: 09/29/25 05:54 Dose: 75 mcg Magnesium Oxide (Magnesium Oxide 400 Mg Tab) 400 mg PO DAILY ALYSA Stop: 10/26/25 08:59 Last Admin: 09/29/25 07:50 Dose: 400 mg Metoprolol Succinate (Metoprolol Succ 25mg Ext Rel Tab) 25 mg PO DAILY ALYSA Stop: 10/26/25 08:59 Last Admin: 09/29/25 07:50 Dose: 25 mg Miscellaneous Information (Pharmacist Discharge Med Rec Consult) 1 each N/A UD PRN PRN Reason: Consult Stop: 10/26/25 05:25 Miscellaneous Information (Vancomycin Consult Active) 1 each N/A UD PRN PRN Reason: Consult Stop: 10/26/25 17:44 Montelukast Sodium (Montelukast Sodium 10 Mg Tablet) 10 mg PO DAILY ALYSA Stop: 10/26/25 08:59 Last Admin: 09/29/25 07:51 Dose: 10 mg Multivitamins/Minerals (Cerovite Adv Formula Tab) 1 tab PO DAILY ALYSA Stop: 10/26/25 08:59 Last Admin: 09/29/25 07:50 Dose: 1 tab Nitroglycerin (Nitroglycerin Sl 0.4 Mg/Tab Tab) 0.4 mg SL Q5M PRN PRN Reason: Chest Pain Stop: 10/26/25 05:25 Nystatin (Nystatin Cr 15 Gm Tube) 1 appln EXT BID PRN PRN Reason: Rash Stop: 10/26/25 05:25 Oxybutynin Chloride (Oxybutynin Chloride Xl 5 Mg Tabcr) 10 mg PO DAILY ALYSA Stop: 10/26/25 08:59 Last Admin: 09/29/25 07:51 Dose: 10 mg Pantoprazole Sodium (Pantoprazole 40 Mg Tab) 40 mg PO DAILY ALYSA Stop: 10/26/25 08:59 Last Admin: 09/29/25 07:50 Dose: 40 mg Polyethylene Glycol (Polyethylene (Miralax) 17 Gm Pack) 17 gm PO DAILY PRN PRN Reason: Constipation Stop: 10/26/25 05:25 Potassium Chloride (Potassium Chloride Crtab 20 Meq Tabcr) 20 meq PO BID ALYSA Stop: 10/26/25 08:59 Last Admin: 09/29/25 10:20 Dose: 20 meq Torsemide (Torsemide 20 Mg Tab) 20 mg PO DAILY ALYSA Stop: 10/26/25 08:59 Last Admin: 09/29/25 10:20 Dose: 20 mg Vitamin B Complex (Vitamin B Complex Tab) 1 tab PO DAILY ALYSA Stop: 10/26/25 08:59 Last Admin: 09/29/25 07:50 Dose: 1 tab
[2025-09-30 07:20] LABS: Hematocrit (blood only) 32.3 % (37.0-47.0); Hemoglobin 10.8 g/dl (12.0-16.0); Immature Granulocytes # (auto) 0.05 K/uL (0.01-0.20); Immature Granulocytes % (auto) 0.5 %; Mean Corpuscular Hemoglobin 30.3 pg (25.0-34.0); Mean Corpuscular Volume 90.5 fL (80.0-100.0); Platelet Count 319 K/uL (130-400); RDW Standard Deviation 45.5 fL (36.4-46.3); Red Blood Count 3.57 M/uL (4.20-5.40); White Blood Count 11.00 K/ul (4.8-10.8)
[2025-09-30 07:45] LABS: Anion Gap 10.0 (3-11); Blood Urea Nitrogen 18.0 mg/dl (6-23); Calcium 9.3 mg/dl (8.6-10.3); Carbon Dioxide 25.0 mmol/L (21-32); Chloride 104.0 mmol/L (98-107); Creatinine Clr Calc Pharmacy 46.8 ml/min; Glucose 135.0 mg/dl (70-99(Fasting)); Magnesium 1.8 mg/dl (1.7-2.4); Potassium 3.6 mmol/L (3.5-5.1); Sodium 139.0 mmol/L (136-145)
[2025-09-30] MEDS: VANCOMYCIN LEVEL ONE (08:00)
--- NOTE | 2025-09-30 11:24 | Hospitalist Progress Note ---
Date of Service September 30, 2025 Assessment & Plan (1) Stroke-like symptoms: Plan: In summary 85-year-old female with past medical history significant for type 2 diabetes, hypertension, hypothyroidism, dyslipidemia, sleep apnea, mild persistent asthma, paroxysmal atrial fibrillation, CKD stage III, chronic CHF, CAD s/p LAD Stent, Hypertension, GERD, Stress Female Incontinence, Degenerative Disc Disease, History of Left-Sided Weakness from Stroke, History of Expressive Aphasia, Depression, History of Subdural Hematoma admitted for strokelike symptoms and appears to have had a cardioembolic stroke. Patient with SDH 08/2024 and taken off of eliquis at that time. Blood cultures from 09/26 revealed 4/4 staph epi +MEC. MELANIE today shows mitral valve vegetations #Staph Epi Bacteremia 4/4 cultures on admission positive- Staph epidermidis that is resistant to oxacillin CT abd/p and chest ordered: no clear source identified, no wounds noted, no devices/prosthetics MELANIE demonstrated bacterial endocarditis Vanc started and ertapenem was added due to endocarditis on MELANIE ID consulted: appreciate input and recommendation and will need to update with the antibiotic Repeat blood cultures have been negative Will keep in touch with ID for further recommendation of antibiotic and duration Discussed with the on-call ID and will continue intravenous vancomycin for 6 weeks in total #UTI- ESBL E. coli dysuria reported culture with e coli- urine culture is growing ESBL E. coli and the patient has been on ertapenem which is sensitive Continue antibiotics Will continue IV ertapenem for a total of 10 days #Cardioembolic stroke, right cerebellum last known normal 9am 09/25 expressive aphasia noted, RUE weakness, weakness noted CT head no acute findings CTA head and neck no acute findings MRI with right cerebellar stroke, appears embolic per review of report No afib detected thus far Concern for possible embolic stoke iso bacteremia -Holding eliquis -Cardiology: MELANIE done 09/28 Resume ASA for now, per neuro antiplatelet agents okay but no full anticoagulation With the history of subdural hematoma will not restart Eliquis Remains stable without any significant symptoms except weakness #Elevated troponin likely demand iso stroke/poor po/like PAF event trend troponin no active signs of acs at this time #Ambulatory dysfunction awaiting PT and OT evaluation prior to discharge #Paroxysmal atrial fibrillation Continue metoprolol No longer anticoagulation secondary to traumatic subdural hematoma September 2024 and recurrent falls Rate is controlled and remains hemodynamically stable #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 #Chronic heart failure preserved ejection fraction Continue torsemide with potassium supplement Monitor for volume overload No evidence of fluid overload and/or symptoms from CHF #Hypertension Continue Toprol and torsemide Hold losartan for permissive hypertension Will monitor #CAD status post LAD stent in 1999 On aspirin statin and beta-monico #Hypothyroidism On Synthyroid #History of diabetes not not on meds Not on meds Will follow HbA1c levels #Stress urinary incontinence On Ditropan #Asthma Currently stable Continue home inhalers #GERD On PPI DVT prophylaxis Continue SCDS Continue on Telemetry Condition guarded at present Full code. Admission and Anticipated Discharge Date Admission Date: September 26, 2025 Subjective 09/29/2025 Patient was seen and examined in telemetry unit She has been feeling a little better but remains extremely weak and lethargic Denies any cardiac and respiratory symptoms Has not had any physical therapy yet 09/30/2025 The patient was seen and examined in telemetry unit She remains weak and lethargic but denies any significant symptoms Has had physical therapy earlier and recommended rehab She will have a PICC line today and possible [facility] Review of Systems Review of Systems: All systems reviewed and are unremarkable except as noted below Physical Exam Physical Exam: Lying in bed without any acute distress Constitutional: well developed, well nourished, + ill appearing and + obese Eyes: PERRL, conjunctivae normal, anicteric sclerae ENMT: external ear and nose normal, oropharynx normal Neck: trachea midline, no thyromegaly Respiratory: no respiratory distress Auscultation: lungs clear to auscultation bilaterally Cardiovascular: Rate/Rhythm: regular rate and regular rhythm; not tachycardic Heart Sounds: normal S1, normal S2 and + murmur Extremities: no edema Gastrointestinal (Abdomen): Inspection/Auscultation: normal bowel sounds; abdomen not distended Percussion/Palpation: abdomen soft; abdomen nontender Musculoskeletal: no acute arthritis involving any of the joints Skin: has rash underneath the breast Neurologic: normal touch/pain/proprioception and moves all extremities; no focal motor deficits Lymphatic: no cervical or axillary lymphadenopathy Results & Data Results & Data Vital Signs (Past 12 Hours) Vital Signs Temp Pulse Pulse Resp BP BP Pulse Ox 09/30/25 07:33 37.0 C 82 18 164/78 H 91 09/30/25 02:28 36.4 C L 78 18 148/73 H 92 O2 Del Method 09/30/25 07:33 Room Air 09/30/25 02:28 Room Air Laboratory Results Short CBC 09/30/25 Range/Units 06:33 WBC 11.00 H (4.8-10.8) K/ul Hgb 10.8 L (12.0-16.0) g/dl Hct 32.3 L (37.0-47.0) % Plt Count 319 (130-400) K/uL BMP 09/30/25 06:33 Sodium 139 Potassium 3.6 Chloride 104 Carbon Dioxide 25 BUN 18 Creatinine 0.81 Glucose 135 H Calcium 9.3 Medications Administered Current Inpatient Medications Acetaminophen (Acetaminophen 325 Mg Tab) 650 mg PO QID PRN PRN Reason: pain/fever Stop: 10/26/25 20:14 Albuterol (Albuterol Hfa Inhaler 8.5 Gm) 2 puffs INH Q4H PRN PRN Reason: Shortness Of Breath Or Wheezing Stop: 10/26/25 05:50 Aspirin (Aspirin 81 Mg Ectab) 81 mg PO DAILY ALYSA Stop: 10/26/25 08:59 Last Admin: 09/30/25 09:23 Dose: 81 mg Atorvastatin Calcium (Atorvastatin 40 Mg Tab) 80 mg PO QAM ALYSA Stop: 10/26/25 08:59 Last Admin: 09/30/25 09:24 Dose: 80 mg Azelastine HCl (Azelastine Hcl 0.1% Nasal 200 Sprays/27,400 Mcg Btl) 2 sprays NA QPM ALYSA Stop: 10/26/25 20:59 Last Admin: 09/29/25 20:43 Dose: 2 sprays Bimatoprost (Bimatoprost 0.01% Op Soln 2.5 Ml Btl) 1 drops OPB HS ALYSA Stop: 10/26/25 20:59 Last Admin: 09/29/25 20:43 Dose: 1 drops Diclofenac Sodium (Diclofenac Sod 1% Gel 100 Gm Tube) 2 gm EXT TID PRN; Protocol PRN Reason: Pain Stop: 10/26/25 05:25 Fluticasone Propionate (Fluticasone Propionate Na Spr 16 Gm Btl) 2 sprays NA DAILY ALYSA Stop: 10/26/25 08:59 Last Admin: 09/30/25 09:25 Dose: 2 sprays Fluticasone/Vilanterol (Fluticasone/Vilanterol 200/25mcg 14 Puffs/Inhaler) 1 puffs INH DAILY ALYSA Stop: 10/26/25 08:59 Last Admin: 09/30/25 09:25 Dose: 1 puffs Guaifenesin (Guaifenesin 600 Mg Tabcr) 600 mg PO Q12H PRN PRN Reason: Congestion Stop: 10/26/25 05:25 Vancomycin HCl 1,500 mg/ (Sodium Chloride) 530 mls @ 200 mls/hr IV DAILY ALYSA Stop: 10/12/25 09:29 Last Admin: 09/30/25 09:22 Dose: 200 mls/hr Ertapenem (Invanz 1000mg) 1,000 mg in 10 mls @ 2 mls/min IV DAILY ALYSA Stop: 10/08/25 09:59 Last Admin: 09/30/25 09:23 Dose: 2 mls/min Ketoconazole (Ketoconazole 2% Cr 15 Gm Tube) 1 appln EXT DAILY PRN PRN Reason: Rash Stop: 10/06/25 05:25 Levothyroxine Sodium (Levothyroxine Sodium 75 Mcg Tablet) 75 mcg PO DAILYBB ALYSA Stop: 10/26/25 06:29 Last Admin: 09/30/25 05:51 Dose: 75 mcg Magnesium Oxide (Magnesium Oxide 400 Mg Tab) 400 mg PO DAILY ALYSA Stop: 10/26/25 08:59 Last Admin: 09/30/25 09:23 Dose: 400 mg Metoprolol Succinate (Metoprolol Succ 25mg Ext Rel Tab) 25 mg PO DAILY ALYSA Stop: 10/26/25 08:59 Last Admin: 09/30/25 09:24 Dose: 25 mg Miscellaneous Information (Pharmacist Discharge Med Rec Consult) 1 each N/A UD PRN PRN Reason: Consult Stop: 10/26/25 05:25 Miscellaneous Information (Vancomycin Consult Active) 1 each N/A UD PRN PRN Reason: Consult Stop: 10/26/25 17:44 Montelukast Sodium (Montelukast Sodium 10 Mg Tablet) 10 mg PO DAILY ALYSA Stop: 10/26/25 08:59 Last Admin: 09/30/25 09:23 Dose: 10 mg Multivitamins/Minerals (Cerovite Adv Formula Tab) 1 tab PO DAILY ALYSA Stop: 10/26/25 08:59 Last Admin: 09/30/25 09:23 Dose: 1 tab Nitroglycerin (Nitroglycerin Sl 0.4 Mg/Tab Tab) 0.4 mg SL Q5M PRN PRN Reason: Chest Pain Stop: 10/26/25 05:25 Nystatin (Nystatin Cr 15 Gm Tube) 1 appln EXT BID PRN PRN Reason: Rash Stop: 10/26/25 05:25 Oxybutynin Chloride (Oxybutynin Chloride Xl 5 Mg Tabcr) 10 mg PO DAILY ALYSA Stop: 10/26/25 08:59 Last Admin: 09/30/25 09:24 Dose: 10 mg Pantoprazole Sodium (Pantoprazole 40 Mg Tab) 40 mg PO DAILY ALYSA Stop: 10/26/25 08:59 Last Admin: 09/30/25 09:24 Dose: 40 mg Polyethylene Glycol (Polyethylene (Miralax) 17 Gm Pack) 17 gm PO DAILY PRN PRN Reason: Constipation Stop: 10/26/25 05:25 Potassium Chloride (Potassium Chloride Crtab 20 Meq Tabcr) 20 meq PO BID ALYSA Stop: 10/26/25 08:59 Last Admin: 09/30/25 09:25 Dose: 20 meq Torsemide (Torsemide 20 Mg Tab) 20 mg PO DAILY ALYSA Stop: 10/26/25 08:59 Last Admin: 09/30/25 09:23 Dose: 20 mg Vitamin B Complex (Vitamin B Complex Tab) 1 tab PO DAILY ALYSA Stop: 10/26/25 08:59 Last Admin: 09/30/25 09:23 Dose: 1 tab
[2025-09-30] MEDS: NYSTATIN POWDER 15GM BTL EXT SCH (12:44)
--- NOTE | 2025-09-30 13:57 | Pharmacy Report ---
Pharmacy PK ABX Note - Date of Service September 30, 2025 - Assessment and Plan Assessment 09/30 * Random level of 13.5 mcg/mL associated with a therapeutic AUC of 504 mg/L.hr * SCr stable 09/28 * Vancomycin level came back at ~11 mcg/ml this AM - will increase dosing to target higher end of goal range for AUC/BECKIE due to bacteremia. Repeat blood cultures preliminary no growth. Urine culture with ESBL e coli - discussed with provider and opting to broaden coverage for now until ID weighs in with rec's. Vegetations noted on MELANIE 09/27 * 85 year old F receiving vancomycin and rocephin for possible UTI/+ blood cultures. Preliminary blood cultures with staph epi 03/02 bottles - [facility] indicating mecA/C gene positive, Vancomycin appropriate until further sensitivities known. Plan Vancomycin * Continue 1500 mg IV q 24 hours * Will repeat level in 2-3 days, or sooner if clinical status/renal function changes Pharmacy will continue to follow and will adjust dose/frequency as necessary. Thank you. Pharmacy has transitioned to AUC monitoring for vancomycin. AUC/BECKIE is the preferred PK/PD target and is associated with decreased risk of nephrotoxicity compared to traditional trough targets.
[2025-09-30] MEDS: SODIUM CHLORIDE 0.9% 1,000 ML IV SCH (14:46)
--- NOTE | 2025-10-01 12:15 | Pharmacy Report ---
- Date of Service October 01, 2025 - Pharmacy CVA/TIA Medication Review Medications to Prevent Stroke handout has been added to the patients discharge packet. Antiplatelet(s) * Aspirin 81 mg PO daily Cholesterol * High intensity statin: atorvastatin 80 mg daily DVT Prophylaxis * SCD thigh Therapeutic Anticoagulation * Hx Afib/Aflutter noted, but anticoagulation is being deferred due to prior complication where patient fell while on Eliquis and had SDH Type 2 Diabetes * Patient has T2DM, but per Dr. Colbert, a diabetes medication with proven CVD benefit will be deferred to their outpatient provider due to familiarity with risks/benefits of such therapies. "Medications to prevent stroke" handout has already been added to the patient's discharge packet, which instructs the patient to follow up with their outpatient provider to evaluate which diabetes medication with proven CVD benefit is best for them
--- NOTE | 2025-10-01 12:47 | Hospitalist Progress Note ---
Date of Service October 01, 2025 Assessment & Plan (1) Stroke-like symptoms: Plan: In summary 85-year-old female with past medical history significant for type 2 diabetes, hypertension, hypothyroidism, dyslipidemia, sleep apnea, mild persistent asthma, paroxysmal atrial fibrillation, CKD stage III, chronic CHF, CAD s/p LAD Stent, Hypertension, GERD, Stress Female Incontinence, Degenerative Disc Disease, History of Left-Sided Weakness from Stroke, History of Expressive Aphasia, Depression, History of Subdural Hematoma admitted for strokelike symptoms and appears to have had a cardioembolic stroke. Patient with SDH 08/2024 and taken off of eliquis at that time. Blood cultures from 09/26 revealed 4/4 staph epi +MEC. MELANIE today shows mitral valve vegetations #Staph Epi Bacteremia 4/4 cultures on admission positive- Staph epidermidis that is resistant to oxacillin CT abd/p and chest ordered: no clear source identified, no wounds noted, no devices/prosthetics MELANIE demonstrated bacterial endocarditis Vanc started and ertapenem was added due to endocarditis on MELANIE ID consulted: appreciate input and recommendation and will need to update with the antibiotic Repeat blood cultures have been negative Will keep in touch with ID for further recommendation of antibiotic and duration Discussed with the on-call ID and will continue intravenous vancomycin for 6 weeks in total Remains stable without any significant symptoms except weakness as mentioned before She is ready to be discharged to [facility] following the placement #UTI- ESBL E. coli dysuria reported culture with e coli- urine culture is growing ESBL E. coli and the patient has been on ertapenem which is sensitive Continue antibiotics Will continue IV ertapenem for a total of 10 days #Cardioembolic stroke, right cerebellum last known normal 9am 09/25 expressive aphasia noted, RUE weakness, weakness noted CT head no acute findings CTA head and neck no acute findings MRI with right cerebellar stroke, appears embolic per review of report No afib detected thus far Concern for possible embolic stoke iso bacteremia -Holding eliquis -Cardiology: MELANIE done 09/28 Resume ASA for now, per neuro antiplatelet agents okay but no full anticoagulation With the history of subdural hematoma will not restart Eliquis Remains stable without any significant symptoms except weakness No other neurological symptoms #Elevated troponin likely demand iso stroke/poor po/like PAF event trend troponin no active signs of acs at this time #Ambulatory dysfunction awaiting PT and OT evaluation prior to discharge Will be discharged to [facility] to continue PT and #Paroxysmal atrial fibrillation Continue metoprolol No longer anticoagulation secondary to traumatic subdural hematoma September 2024 and recurrent falls Rate is controlled and remains hemodynamically stable #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 #Chronic heart failure preserved ejection fraction Continue torsemide with potassium supplement Monitor for volume overload No evidence of fluid overload and/or symptoms from CHF #Hypertension Continue Toprol and torsemide Hold losartan for permissive hypertension blood pressure remains stable #CAD status post LAD stent in 1999 On aspirin statin and beta-monico #Hypothyroidism On Synthyroid #History of diabetes not not on meds Not on meds Will follow HbA1c levels-minimally high at 6.6 #Stress urinary incontinence On Ditropan #Asthma Currently stable Continue home inhalers #GERD On PPI DVT prophylaxis Continue SCDS Continue on Telemetry Condition guarded at present Full code. Admission and Anticipated Discharge Date Admission Date: September 26, 2025 Subjective 09/29/2025 Patient was seen and examined in telemetry unit She has been feeling a little better but remains extremely weak and lethargic Denies any cardiac and respiratory symptoms Has not had any physical therapy yet 09/30/2025 The patient was seen and examined in telemetry unit She remains weak and lethargic but denies any significant symptoms Has had physical therapy earlier and recommended rehab She will have a PICC line today and possible discharge to [facility] this afternoon 10/01/2025 The patient was seen and examined telemetry unit She has been feeling fine except ongoing tiredness Denies any significant symptoms Awaiting PICC line placement before discharge to [facility] Review of Systems Review of Systems: All systems reviewed and are unremarkable except as noted below Physical Exam Physical Exam: Lying in bed without any acute distress Constitutional: well developed, well nourished, + ill appearing and + obese Eyes: PERRL, conjunctivae normal, anicteric sclerae ENMT: external ear and nose normal, oropharynx normal Neck: trachea midline, no thyromegaly Respiratory: no respiratory distress Auscultation: lungs clear to auscultation bilaterally Cardiovascular: Rate/Rhythm: regular rate and regular rhythm; not tachycardic Heart Sounds: normal S1, normal S2 and + murmur Extremities: no edema Gastrointestinal (Abdomen): Inspection/Auscultation: normal bowel sounds; abdomen not distended Percussion/Palpation: abdomen soft; abdomen nontender Neurologic: normal touch/pain/proprioception and moves all extremities; no focal motor deficits Lymphatic: no cervical or axillary lymphadenopathy Results & Data Results & Data Vital Signs (Past 12 Hours) Vital Signs Temp Pulse Pulse Pulse Resp BP Pulse Ox 10/01/25 11:09 36.8 C 62 20 132/75 94 10/01/25 08:30 60 10/01/25 07:00 36.6 C 70 16 158/80 H 94 10/01/25 03:05 36.8 C 64 18 134/72 95 O2 Del Method 10/01/25 11:09 Room Air 10/01/25 08:30 10/01/25 07:00 Room Air 10/01/25 03:05 Room Air Medications Administered Current Inpatient Medications Acetaminophen (Acetaminophen 325 Mg Tab) 650 mg PO QID PRN PRN Reason: pain/fever Stop: 10/26/25 20:14 Albuterol (Albuterol Hfa Inhaler 8.5 Gm) 2 puffs INH Q4H PRN PRN Reason: Shortness Of Breath Or Wheezing Stop: 10/26/25 05:50 Aspirin (Aspirin 81 Mg Ectab) 81 mg PO DAILY ALYSA Stop: 10/26/25 08:59 Last Admin: 10/01/25 07:58 Dose: 81 mg Atorvastatin Calcium (Atorvastatin 40 Mg Tab) 80 mg PO QAM ALYSA Stop: 10/26/25 08:59 Last Admin: 10/01/25 07:59 Dose: 80 mg Azelastine HCl (Azelastine Hcl 0.1% Nasal 200 Sprays/27,400 Mcg Btl) 2 sprays NA QPM ALYSA Stop: 10/26/25 20:59 Last Admin: 09/30/25 20:24 Dose: 2 sprays Bimatoprost (Bimatoprost 0.01% Op Soln 2.5 Ml Btl) 1 drops OPB HS ALYSA Stop: 10/26/25 20:59 Last Admin: 09/30/25 20:24 Dose: 1 drops Diclofenac Sodium (Diclofenac Sod 1% Gel 100 Gm Tube) 2 gm EXT TID PRN; Protocol PRN Reason: Pain Stop: 10/26/25 05:25 Fluticasone Propionate (Fluticasone Propionate Na Spr 16 Gm Btl) 2 sprays NA DAILY ALYSA Stop: 10/26/25 08:59 Last Admin: 10/01/25 07:59 Dose: 2 sprays Fluticasone/Vilanterol (Fluticasone/Vilanterol 200/25mcg 14 Puffs/Inhaler) 1 puffs INH DAILY ALYSA Stop: 10/26/25 08:59 Last Admin: 10/01/25 07:59 Dose: 1 puffs Guaifenesin (Guaifenesin 600 Mg Tabcr) 600 mg PO Q12H PRN PRN Reason: Congestion Stop: 10/26/25 05:25 Vancomycin HCl 1,500 mg/ (Sodium Chloride) 530 mls @ 200 mls/hr IV DAILY ALYSA Stop: 10/12/25 09:29 Last Infusion: 10/01/25 10:47 Dose: Infused Ertapenem (Invanz 1000mg) 1,000 mg in 10 mls @ 2 mls/min IV DAILY ALYSA Stop: 10/08/25 09:59 Last Admin: 10/01/25 08:08 Dose: 2 mls/min Sodium Chloride (Nss) 1,000 mls @ 80 mls/hr IV .[id number] ALYSA Stop: 10/01/25 15:44 Last Admin: 10/01/25 03:02 Dose: 80 mls/hr Ketoconazole (Ketoconazole 2% Cr 15 Gm Tube) 1 appln EXT DAILY PRN PRN Reason: Rash Stop: 10/06/25 05:25 Levothyroxine Sodium (Levothyroxine Sodium 75 Mcg Tablet) 75 mcg PO DAILYBB ALYSA Stop: 10/26/25 06:29 Last Admin: 10/01/25 06:33 Dose: 75 mcg Magnesium Oxide (Magnesium Oxide 400 Mg Tab) 400 mg PO DAILY ALYSA Stop: 10/26/25 08:59 Last Admin: 10/01/25 08:00 Dose: 400 mg Metoprolol Succinate (Metoprolol Succ 25mg Ext Rel Tab) 25 mg PO DAILY ALYSA Stop: 10/26/25 08:59 Last Admin: 10/01/25 08:00 Dose: 25 mg Miscellaneous Information (Pharmacist Discharge Med Rec Consult) 1 each N/A UD PRN PRN Reason: Consult Stop: 10/26/25 05:25 Miscellaneous Information (Vancomycin Consult Active) 1 each N/A UD PRN PRN Reason: Consult Stop: 10/26/25 17:44 Montelukast Sodium (Montelukast Sodium 10 Mg Tablet) 10 mg PO DAILY ALYSA Stop: 10/26/25 08:59 Last Admin: 10/01/25 08:00 Dose: 10 mg Multivitamins/Minerals (Cerovite Adv Formula Tab) 1 tab PO DAILY ALYSA Stop: 10/26/25 08:59 Last Admin: 10/01/25 08:00 Dose: 1 tab Nitroglycerin (Nitroglycerin Sl 0.4 Mg/Tab Tab) 0.4 mg SL Q5M PRN PRN Reason: Chest Pain Stop: 10/26/25 05:25 Nystatin (Nystatin Cr 15 Gm Tube) 1 appln EXT BID PRN PRN Reason: Rash Stop: 10/26/25 05:25 Nystatin (Nystatin Powder 15gm Btl) 1 appln EXT BID ALYSA Stop: 10/30/25 11:29 Last Admin: 10/01/25 08:00 Dose: 1 appln Oxybutynin Chloride (Oxybutynin Chloride Xl 5 Mg Tabcr) 10 mg PO DAILY ALYSA Stop: 10/26/25 08:59 Last Admin: 10/01/25 08:00 Dose: 10 mg Pantoprazole Sodium (Pantoprazole 40 Mg Tab) 40 mg PO DAILY ALYSA Stop: 10/26/25 08:59 Last Admin: 10/01/25 08:00 Dose: 40 mg Polyethylene Glycol (Polyethylene (Miralax) 17 Gm Pack) 17 gm PO DAILY PRN PRN Reason: Constipation Stop: 10/26/25 05:25 Potassium Chloride (Potassium Chloride Crtab 20 Meq Tabcr) 20 meq PO BID ALYSA Stop: 10/26/25 08:59 Last Admin: 10/01/25 08:08 Dose: 20 meq Torsemide (Torsemide 20 Mg Tab) 20 mg PO DAILY ALYSA Stop: 10/26/25 08:59 Last Admin: 10/01/25 08:01 Dose: 20 mg Vitamin B Complex (Vitamin B Complex Tab) 1 tab PO DAILY ALYSA Stop: 10/26/25 08:59 Last Admin: 10/01/25 08:01 Dose: 1 tab
--- NOTE | 2025-10-01 16:04 | XRay Report ---
XR chest 1V portable CLINICAL HISTORY: Eval right IJ placement COMPARISON STUDY: 09/25/2025 FINDINGS: Right central catheter tip is in the SVC. There is no pneumothorax. No consolidation or ple ural effusion. IMPRESSION: No pneumothorax seen. ACT 112: Negative or not required by law. Electronically signed by: Jake Pink M.D. 10/01/2025 4:03 PM
--- NOTE | 2025-10-01 17:21 | Cardiology Progress Note ---
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 Patient underwent MELANIE On 09/28/2025, demonstrating mitral valve echodensity consistent with vegetation/endocarditis. Moderate MR. Patient will need 6 weeks of IV antibiotic therapy. No evidence of LA thrombus. Would not resume Eliquis/anticoagulation at this time as patient is in sinus rhythm, has a history of a fall with subdural hematoma, and due to concerns of potential hemorrhagic conversion from septic cerebral emboli Continue ASA. Continue metoprolol, torsemide/potassium, atorvastatin. Monitor fluid status with IV fluids and IV antibiotics. History of HFpEF Mild SOB reported this morning. Currently appears euvolemic, but consider IV diuretics if needed. Lee Peacock, Cardiology This chart was completed in part utilizing Speech Voice Recognition Software. Grammatical errors, random word insertions, pronoun errors, and incomplete sentences are an occasional consequence of this system due to software limitations, ambient noise, and hardware issues. Any formal questions or concerns about the content, text, or information contained within the body of this dictation should be directly addressed to the provider for clarification. Admission and Anticipated Discharge Date Admission Date: September 26, 2025 Subjective Patient seen in cardiology follow-up. She is alert and conversant. Comfortable. Telemetry reveals sinus rhythm in the 60s with occasional premature atrial contractions and premature ventricular contractions. No atrial fibrillation observed. Physical Exam Constitutional: + ill appearing and + thin; no acute dis tress Neck: normal visual inspection Respiratory: normal respiratory effort; no labored breathing Auscultation: + diminished lung sounds; no rales and no rhonchi Cardiovascular: Rate/Rhythm: regular rate and regular rhythm Heart Sounds: + murmur (II/ systolic murmur) Gastrointestinal (Abdomen): normal bowel sounds, soft, nontender, no hepatosplenomegaly Neurologic: awake Speech / Cognition: + expressive aphasia Results & Data Vital Signs (Past 12 Hours) Vital Signs Temp Pulse Pulse Pulse Resp BP BP 10/01/25 15:52 72 163/76 H 10/01/25 15:23 36.5 C 70 20 179/78 H 10/01/25 14:00 66 10/01/25 11:09 36.8 C 62 20 132/75 10/01/25 08:30 60 10/01/25 07:00 36.6 C 70 16 158/80 H Pulse Ox O2 Del Method 10/01/25 15:52 10/01/25 15:23 97 Room Air 10/01/25 14:00 10/01/25 11:09 94 Room Air 10/01/25 08:30 10/01/25 07:00 94 Room Air Coding Level of Care Code 18516 SUB INP/OBS CARE 3/50MIN Diagnoses 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
--- NOTE | 2025-10-01 17:24 | Procedure Note ---
Procedure Note Date of Service October 01, 2025 INTERNAL JUGULAR CENTRAL LINE PROCEDURE NOTE: Procedure: Right Internal Jugular Central Line Placement Attending: Dr. Rebecca Finley MD APC: CELESTE Velazquez Indication: Central Drug Administration, Poor Venous Access, Multiple Lab Draws Necessary, etc. Anesthesia: Lidocaine 1% []Consent was signed and placed on the chart prior to procedure. Indication, risks, and benefits were explained at length. A time-out was completed verifying correct patient, procedure, site, positioning, and implants(s) or special equipment if applicable. Patients right Neck was cleansed and draped in the typical sterile fashion using Chloraprep. The Internal Jugular Vein and Carotid Artery were identified using ultrasound. The superficial tissue was anesthetized using 3 mL of 1% lidocaine without epinephrine under direct visualization with the ultrasound. After adequate anesthetization was achieved, the Internal Jugular vein was cannulated under direct ultrasound guidance using an introducer needle on a syringe. Good venous blood return was maintained prior to removal of syringe from introducer needle. Using Seldinger Technique, a guide wire was advanced through the introducer needle without resistance. The introducer needle was removed and ultrasound i mages were obtained of the guide wire within the Internal Jugular Vein and saved to the patients medical record. A small incision was made in penetrating fashion at the guide wire insertion site utilizing an 11 blade scalpel. The dilator was advanced to the vessel without resistance. The dilator was exchanged for the triple lumen catheter which was advanced into the vessel without resistance. The guide wire was removed intact from the catheter without issue. Claves were placed on each catheter tip with confirmation of good blood flow from each lumen. Each port was easily flushed with sterile saline. The catheter was placed at 18 cm and sutured in place. CHG impregnated tegaderm was applied to the catheter with careful attention to sterility. Patient tolerated procedure well. No immediate complications were met. Post procedure x-ray was completed, placement was appropriate and no pneumothorax was noted. Images obtained are saved for permanent record Procedural Ultrasound Guidance: Procedure Date: 10/01/2025 Indication: Ultrasound guidance for right IJ placement Attending: Dr. Rebecca Finley MD APC: CELESTE Velazquez Artery AND Vein visualized: Yes Compressible Vein: Yes Guidewire or Short Catheter seen in vein prior to dilation: Yes Line confirmed in Vein with ultrasound: Yes Images obtained are saved for permanent record. [facility] Procedure Codes (Charges) Tubes, Drains, and Vasc Access Procedure 1: Tubes, Drains, and Vasc Access: [id number] Insertion Of Non-tunneled Catheter Age 5 Yrs> Procedure 2: Tubes, Drains, and Vasc Access: [id number] Ultrasound Guidance For Vascular Coding CPT Codes Tubes, Drains, and Vasc Access - Tubes, Drains, and Vasc Access: [id number] Insertion Of Non-tunneled Catheter Age 5 Yrs> ([id number]) Tubes, Drains, and Vasc Access - Tubes, Drains, and Vasc Access: [id number] Ultrasound Guidance For Vascular ([id number]) Additional Codes Date of Service ([facility].[email or web address])
--- NOTE | 2025-10-01 17:26 | Communication Note ---
Date of Service: October 01, 2025 R[address] line [address] be used. Dr Brian Colbert
[2025-10-01] MEDS: METOPROLOL TARTRATE 1 MG/ML VIAL IV STA (23:53)
[2025-10-01] MEDS: ACETAMINOPHEN 1,000 MG/100 ML VIAL IV STA (23:54)
--- NOTE | 2025-10-02 01:32 | CT Scan Report ---
EXAM: CT head/brain wo con CLINICAL HISTORY: drake, htn. TECHNIQUE: Multiple axial images were obtained from the skull base to the vertex without contrast. CT scan was performed according to ALARA (as low as reasonably achievable) principles. COMPARISON: 08:08:57 [employer] (EX ). FINDINGS: Cerebral atrophy is present. An ill-defined hypodense area is noted involving the right temporal lobe cortex and subcortical white matter, as well as the left medial temporal lobe. No evidence of space-occupying lesion, hemorrhage, edema, mass effect, midline shift, extra-axial collection, or hydrocephalus is noted. Basal cisterns are symmetric and normal in size and configuration. There are scattered periventricular hypodensities, as can be seen with chronic microvascular ischemic changes. The hernandez-white matter differentiation is preserved. The visualized paranasal sinuses and mastoid air cells are well aerated. Orbital contents are within normal limits. Bony structures are intact. IMPRESSION: 1. Ill-defined hypodense area involving the right temporal lobe cortex and subcortical white matter, and the left medial temporal lobe. This is a new finding. (Advised: MRI with Diffusion restriction for correlation.) 2. Chronic microvascular ischemic changes, stable. 3. Cerebral atrophy, stable. Electronically signed by Kumar Whyte 10-02-2025 01:32 AM
--- NOTE | 2025-10-02 01:56 | Communication Note ---
Date of Service: October 02, [id number] Patient with headache symptoms, SBP 170s. Patient more confused than usual as per RN. AP Hypertensive encephalopathy IV Lopressor [address] head once comfortable CT head 1. Ill-defined hypodense area involving the right temporal lobe cortex and subcortical white matter, and the left medial temporal lobe. This is a new finding. (Advised: MRI with Diffusion restriction for correlation.) 2. Chronic microvascular ischemic changes, stable. 3. Cerebral atrophy, stable. AP Abnormal CT head Brain MRI (09/26) multiple small foci of restricted diffusion, the largest of which is a 6 mm inferior right cerebellar focus. These are consistent with small acute infarcts and suggest an embolic etiology. No mass effect. No hemorrhage. Will request morning radiologist to correlate CT head with brain MRI from 09/26. 10/02, 6 AM Patient complaining of new RUE weakness/numbness. PPE Dysarthric (not new) MMTs BUE 4/5, negative pronator drift MRI/MRA brain in a.m.
[2025-10-02] MEDS: MAGNESIUM SULFATE / D5W 1 GM/100 ML BAG IV SCH (03:02)
[2025-10-02 03:17] LABS: Hematocrit (blood only) 30.6 % (37.0-47.0); Hemoglobin 9.8 g/dl (12.0-16.0); Immature Granulocytes # (auto) 0.05 K/uL (0.01-0.20); Immature Granulocytes % (auto) 0.4 %; Mean Corpuscular Hemoglobin 29.1 pg (25.0-34.0); Mean Corpuscular Volume 90.8 fL (80.0-100.0); Platelet Count 366 K/uL (130-400); RDW Standard Deviation 45.2 fL (36.4-46.3); Red Blood Count 3.37 M/uL (4.20-5.40); White Blood Count 11.40 K/ul (4.8-10.8)
[2025-10-02 03:35] LABS: Anion Gap 9.0 (3-11); Blood Urea Nitrogen 14.0 mg/dl (6-23); Calcium 8.8 mg/dl (8.6-10.3); Carbon Dioxide 27.0 mmol/L (21-32); Chloride 104.0 mmol/L (98-107); Creatinine Clr Calc Pharmacy 52.0 ml/min; Glucose 118.0 mg/dl (70-99(Fasting)); Potassium 3.4 mmol/L (3.5-5.1); Sodium 140.0 mmol/L (136-145)
[2025-10-02 04:00] LABS: Partial Thromboplastin Time 27 Seconds (21-31)
[2025-10-02] MEDS: POTASSIUM CHLORIDE CRTAB 20 MEQ TABCR PO STA ×2 (06:04→09:59)
[2025-10-02 07:30] VITALS: RESP 23
--- NOTE | 2025-10-02 09:45 | Magnetic Resonance Report ---
MRA OF THE INTRACRANIAL CIRCULATION WITHOUT CONTRAST CLINICAL HISTORY: New right upper extremity weakness/numbness. COMPARISON STUDY: CTA of the head September 26, 2025. MRA of the head June 08, 2011. TECHNIQUE: Utilizing a 3 Sharmaine magnet and 3-D [id number] technique, unenhanced MRA of the intracr anial circulation was obtained. FINDINGS: Please note that the MRI of the brain will be reported separately. The bilateral M1, M2, A1 and A2 segments are patent. No large vessel occlusion is identified on this examination. The posteri or circulation is intact. There is no intracranial aneurysm. Anterior communicating artery is present . IMPRESSION: No large vessel occlusion. No intracranial aneurysm. ACT 112: Negative or not required by law. Electronically signed by: Guillaume Borrego M.D. 10/02/2025 9:44 AM
--- NOTE | 2025-10-02 10:02 | Magnetic Resonance Report ---
MR brain wo con HISTORY: 85 years-old Female new RUE weakness/numbness as per px acute stroke like symptoms COMPARISON: Head CT same day, brain MRI 09/26/2025, August 24, 2025. TECHNIQUE: Multiplanar multisequence MRI of the brain was obtained without IV contrast FINDINGS: There are innumerable foci of multi-vascular territorial restricted diffusion have developed since th e prior MR, most of which are subcentimeter. The largest foci measure up to approximately 2 cm and ar e present throughout all lobes bilaterally and also involve the right greater the left cerebellar hem ispheres with punctate foci within the pontine brainstem. There is no hemorrhage. There is no mass effect. Ventricular system is unremarkable. Basal cisterns a re patent. There are no extra-axial collections. White matter T2 hyperintense foci are unchanged sinc e previous MRI of August 24, 2025 represent small vessel disease. There is no intracranial mass or pathologic enhancement. There are no calvarial lesions. There is no evidence for sinusitis. There is no mastoid fluid. IMPRESSION: 1. Innumerable foci of multi-vascular territorial restricted diffusion have developed since , most of which are subcentimeter diffusely throughout the cerebrum and also within the cerebellum a nd brainstem. Findings are compatible with acute infarcts, likely from a proximal thromboembolic sour ce. Echocardiogram recommended. 2. No acute intracranial hemorrhage, midline shift or hydrocephalus. ACT 112: Negative or not required by law. The above report was generated using voice recognition software. It may contain grammatical, syntax o r spelling errors. Electronically signed by: Talib Morales M.D. 10/02/2025 10:01 AM
[2025-10-02 11:43] VITALS: TEMP 97.3; O2SAT 93
--- NOTE | 2025-10-02 14:06 | Communication Note ---
Date of Service: October 02, 2025 Contacted re: development of new neurologic symptoms in patient overnight (headache and confusion) while IJ placement and increased weakness this morning. Repeat MRI does show new scattered punctate infarcts from prior MRI without hemorrhagic transformation. MRA remains without obvious mycotic aneurysm. Pt has documented history of Afib, previously on AC when she was taken off for a fall with resultant tSDH last year. Given this, previous recommendation between cardiology and neurology was to continue to hold AC given risk of hemorrhagic conversion from septic emboli. Iron continue to recommend holding AC while pt is undergoing treatment for septic endocarditis as mitral vegetation serves as likely etiology of strokes especially given no cardiac thrombus seen on MELANIE. per review it appears patient has remained in NSR duration of this hospitalization. If pt were to develop Afib could consider cautious initiation of AC with heparin drip and escalation to full dose but would continue pt on ASA 81 for now.
--- NOTE | 2025-10-02 14:36 | Hospitalist Progress Note ---
Date of Service October 02, 2025 Assessment & Plan (1) Stroke-like symptoms: Plan: In summary 85-year-old female with past medical history significant for type 2 diabetes, hypertension, hypothyroidism, dyslipidemia, sleep apnea, mild persistent asthma, paroxysmal atrial fibrillation, CKD stage III, chronic CHF, CAD s/p LAD Stent, Hypertension, GERD, Stress Female Incontinence, Degenerative Disc Disease, History of Left-Sided Weakness from Stroke, History of Expressive Aphasia, Depression, History of Subdural Hematoma admitted for strokelike symptoms and appears to have had a cardioembolic stroke. Patient with SDH 08/2024 and taken off of eliquis at that time. Blood cultures from 09/26 revealed 4/4 staph epi +MEC. MELANIE today shows mitral valve vegetations #Cardioembolic stroke, right cerebellum last known normal 9am 09/25 expressive aphasia noted, RUE weakness, weakness noted CT head no acute findings CTA head and neck no acute findings MRI with right cerebellar stroke, appears embolic per review of report No afib detected thus far Concern for possible embolic stoke iso bacteremia -Holding eliquis -Cardiology: MELANIE done 09/28 Resume ASA for now, per neuro antiplatelet agents okay but no full anticoagulation With the history of subdural hematoma will not restart Eliquis Remains stable without any significant symptoms except weakness No other neurological symptoms # recurrent acute multifocal infarct Development of difficulty in speech with left upper extremity weakness which is minimally improved since last night MRI did show innumerable foci of multi vascular territorial restricted diffusion new since 09/26/2025, most of which are subcentimeter diffusely throughout the cerebrum and also within the cerebellum and brainstem likely thromboembolic source Discussed with the neurologist Not to start any other antiplatelet besides aspirin that she has been on given increased risk of bleeding Patient remains in sinus rhythm and cardiology mention not to start any Eliquis given the history of brain hemorrhage and being in sinus rhythm This was discussed extensively with the son She will be continued with aspirin and not be started with Eliquis and/or Plavix Will continue with PT OT and speech evaluation #Staph Epi Bacteremia 4/4 cultures on admission positive- Staph epidermidis that is resistant to oxacillin CT abd/p and chest ordered: no clear source identified, no wounds noted, no devices/prosthetics MELANIE demonstrated bacterial endocarditis Vanc started and ertapenem was added due to endocarditis on MELANIE ID consulted: appreciate input and recommendation and will need to update with the antibiotic Repeat blood cultures have been negative Will keep in touch with ID for further recommendation of antibiotic and duration Discussed with the on-call ID and will continue intravenous vancomycin for 6 weeks in total Remains stable without any significant symptoms except weakness as mentioned before She is ready to be discharged to [facility] following the placement #UTI- ESBL E. coli dysuria reported culture with e coli- urine culture is growing ESBL E. coli and the patient has been on ertapenem which is sensitive Continue antibiotics Will continue IV ertapenem for a total of 10 days #Elevated troponin likely demand iso stroke/poor po/like PAF event trend troponin no active signs of acs at this time #Ambulatory dysfunction awaiting PT and OT evaluation prior to discharge Will be discharged to [facility] to continue PT and #Paroxysmal atrial fibrillation Continue metoprolol No longer anticoagulation secondary to traumatic subdural hematoma September 2024 and recurrent falls Rate is controlled and remains hemodynamically stable Remains in sinus rhythm throughout the hospital stay #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 #Chronic heart failure preserved ejection fraction Continue torsemide with potassium supplement Monitor for volume overload No evidence of fluid overload and/or symptoms from CHF #Hypertension Continue Toprol and torsemide Hold losartan for permissive hypertension blood pressure remains stable #CAD status post LAD stent in 1999 On aspirin statin and beta-monico #Hypothyroidism On Synthyroid #History of diabetes not not on meds Not on meds Will follow HbA1c levels-minimally high at 6.6 #Stress urinary incontinence On Ditropan #Asthma Currently stable Continue home inhalers #GERD On PPI DVT prophylaxis Continue SCDS Continue on Telemetry Condition guarded at present Full code. She will be discharged to [facility] this afternoon Admission and Anticipated Discharge Date Admission Date: September 26, 2025 Subjective 09/29/2025 Patient was seen and examined in telemetry unit She has been feeling a little better but remains extremely weak and lethargic Denies any cardiac and respiratory symptoms Has not had any physical therapy yet 09/30/2025 The patient was seen and examined in telemetry unit She remains weak and lethargic but denies any significant symptoms Has had physical therapy earlier and recommended rehab She will have a PICC line today and possible discharge to [facility] this afternoon 10/01/2025 The patient was seen and examined telemetry unit She has been feeling fine except ongoing tiredness Denies any significant symptoms Awaiting PICC line placement before discharge to [facility] 10/02/2025 The patient was seen and examined in telemetry unit in presence of the son She has had acute confusion with difficulty in speech and also left upper extremity weakness last night Has been feeling little better since this morning and conversing normally Still has minimal left upper extremity weakness but otherwise stable Review of Systems Review of Systems: All systems reviewed and are unremarkable except as noted below Physical Exam Physical Exam: Lying in bed without any acute distress Constitutional: well developed, well nourished, + ill appearing and + obese Eyes: PERRL, conjunctivae normal, anicteric sclerae ENMT: external ear and nose normal, oropharynx normal Neck: trachea midline, no thyromegaly Respiratory: no respiratory distress Auscultation: lungs clear to auscultation bilaterally Cardiovascular: Rate/Rhythm: regular rate and regular rhythm; not tachycardic Heart Sounds: normal S1, normal S2 and + murmur Extremities: no edema Gastrointestinal (Abdomen): Inspection/Auscultation: normal bowel sounds; abdomen not distended Percussion/Palpation: abdomen soft; abdomen nontender Neurologic: normal touch/pain/proprioception, moves all extremities and + focal motor deficit ( minimal weakness involving the left upper extremity) Lymphatic: no cervical or axillary lymphadenopathy Results & Data Results & Data Vital Signs (Past 12 Hours) Vital Signs Temp Pulse Pulse Resp BP Pulse Ox O2 Del Method 10/02/25 11:42 36.3 C L 65 23 147/81 H 93 Room Air 10/02/25 09:20 Room Air 10/02/25 07:30 36.4 C L 72 23 161/82 H 98 Room Air 10/02/25 07:00 56 L 10/02/25 03:42 36.5 C 65 18 146/80 H 95 Room Air Laboratory Results Short CBC 10/02/25 Range/Units 02:56 WBC 11.40 H (4.8-10.8) K/ul Hgb 9.8 L (12.0-16.0) g/dl Hct 30.6 L (37.0-47.0) % Plt Count 366 (130-400) K/uL BMP 10/02/25 02:56 Sodium 140 Potassium 3.4 L Chloride 104 Carbon Dioxide 27 BUN 14 Creatinine 0.73 Glucose 118 H Calcium 8.8 Medications Administered Current Inpatient Medications Acetaminophen (Acetaminophen 325 Mg Tab) 650 mg PO QID PRN PRN Reason: pain/fever Stop: 10/26/25 20:14 Albuterol (Albuterol Hfa Inhaler 8.5 Gm) 2 puffs INH Q4H PRN PRN Reason: Shortness Of Breath Or Wheezing Stop: 10/26/25 05:50 Aspirin (Aspirin 81 Mg Ectab) 81 mg PO DAILY ALYSA Stop: 10/26/25 08:59 Last Admin: 10/02/25 10:01 Dose: 81 mg Atorvastatin Calcium (Atorvastatin 40 Mg Tab) 80 mg PO QAM ALYSA Stop: 10/26/25 08:59 Last Admin: 10/02/25 10:00 Dose: 80 mg Azelastine HCl (Azelastine Hcl 0.1% Nasal 200 Sprays/27,400 Mcg Btl) 2 sprays NA QPM ALYSA Stop: 10/26/25 20:59 Last Admin: 10/01/25 21:42 Dose: 2 sprays Bimatoprost (Bimatoprost 0.01% Op Soln 2.5 Ml Btl) 1 drops OPB HS ALYSA Stop: 10/26/25 20:59 Last Admin: 10/01/25 21:43 Dose: 1 drops Diclofenac Sodium (Diclofenac Sod 1% Gel 100 Gm Tube) 2 gm EXT TID PRN; Protocol PRN Reason: Pain Stop: 10/26/25 05:25 Fluticasone Propionate (Fluticasone Propionate Na Spr 16 Gm Btl) 2 sprays NA DAILY ALYSA Stop: 10/26/25 08:59 Last Admin: 10/02/25 09:58 Dose: 2 sprays Fluticasone/Vilanterol (Fluticasone/Vilanterol 200/25mcg 14 Puffs/Inhaler) 1 puffs INH DAILY ALYSA Stop: 10/26/25 08:59 Last Admin: 10/02/25 09:58 Dose: 1 puffs Guaifenesin (Guaifenesin 600 Mg Tabcr) 600 mg PO Q12H PRN PRN Reason: Congestion Stop: 10/26/25 05:25 Vancomycin HCl 1,500 mg/ (Sodium Chloride) 530 mls @ 200 mls/hr IV DAILY ALYSA Stop: 10/12/25 09:29 Last Infusion: 10/02/25 12:55 Dose: Infused Ertapenem (Invanz 1000mg) 1,000 mg in 10 mls @ 2 mls/min IV DAILY ALYSA Stop: 10/08/25 09:59 Last Admin: 10/02/25 09:57 Dose: 2 mls/min Ketoconazole (Ketoconazole 2% Cr 15 Gm Tube) 1 appln EXT DAILY PRN PRN Reason: Rash Stop: 10/06/25 05:25 Levothyroxine Sodium (Levothyroxine Sodium 75 Mcg Tablet) 75 mcg PO DAILYBB ALYSA Stop: 10/26/25 06:29 Last Admin: 10/02/25 06:12 Dose: 75 mcg Magnesium Oxide (Magnesium Oxide 400 Mg Tab) 400 mg PO DAILY ALYSA Stop: 10/26/25 08:59 Last Admin: 10/02/25 09:59 Dose: 400 mg Metoprolol Succinate (Metoprolol Succ 25mg Ext Rel Tab) 25 mg PO DAILY ALYSA Stop: 10/26/25 08:59 Last Admin: 10/02/25 10:01 Dose: 25 mg Miscellaneous Information (Pharmacist Discharge Med Rec Consult) 1 each N/A UD PRN PRN Reason: Consult Stop: 10/26/25 05:25 Miscellaneous Information (Vancomycin Consult Active) 1 each N/A UD PRN PRN Reason: Consult Stop: 10/26/25 17:44 Montelukast Sodium (Montelukast Sodium 10 Mg Tablet) 10 mg PO DAILY ALYSA Stop: 10/26/25 08:59 Last Admin: 10/02/25 10:00 Dose: 10 mg Multivitamins/Minerals (Cerovite Adv Formula Tab) 1 tab PO DAILY ALYSA Stop: 10/26/25 08:59 Last Admin: 10/02/25 09:59 Dose: 1 tab Nitroglycerin (Nitroglycerin Sl 0.4 Mg/Tab Tab) 0.4 mg SL Q5M PRN PRN Reason: Chest Pain Stop: 10/26/25 05:25 Nystatin (Nystatin Cr 15 Gm Tube) 1 appln EXT BID PRN PRN Reason: Rash Stop: 10/26/25 05:25 Nystatin (Nystatin Powder 15gm Btl) 1 appln EXT BID ALYSA Stop: 10/30/25 11:29 Last Admin: 10/02/25 10:01 Dose: 1 appln Oxybutynin Chloride (Oxybutynin Chloride Xl 5 Mg Tabcr) 10 mg PO DAILY ALYSA Stop: 10/26/25 08:59 Last Admin: 10/02/25 10:00 Dose: 10 mg Pantoprazole Sodium (Pantoprazole 40 Mg Tab) 40 mg PO DAILY ALYSA Stop: 10/26/25 08:59 Last Admin: 10/02/25 10:01 Dose: 40 mg Polyethylene Glycol (Polyethylene (Miralax) 17 Gm Pack) 17 gm PO DAILY PRN PRN Reason: Constipation Stop: 10/26/25 05:25 Potassium Chloride (Potassium Chloride Crtab 20 Meq Tabcr) 20 meq PO BID ALYSA Stop: 11/02/25 08:59 Torsemide (Torsemide 20 Mg Tab) 20 mg PO DAILY ALYSA Stop: 10/26/25 08:59 Last Admin: 10/02/25 09:59 Dose: 20 mg Vitamin B Complex (Vitamin B Complex Tab) 1 tab PO DAILY ALYSA Stop: 10/26/25 08:59 Last Admin: 10/02/25 10:00 Dose: 1 tab
[2025-10-02] MEDS ORDERED: STROKE PATIENT DISCHARGE STA (14:57)
[2025-10-02 15:17] VITALS: BP 155/82
[2025-10-02 18:07] VITALS: PULSE 78
--- NOTE | 2025-10-03 08:27 | Discharge Summary ---
Date of Service October 03, 2025 Admission HPI Per Admitting Provider 85-year-old female with past medical history significant for type 2 diabetes, hypertension, hypothyroidism, dyslipidemia, sleep apnea, mild persistent asthma, paroxysmal atrial fibrillation, CKD stage III, chronic CHF, CAD s/p LAD Stent, Hypertension, GERD, Stress Female Incontinence, Degenerative Disc Disease, History of Left-Sided Weakness from Stroke, History of Expressive Aphasia, Depression, History of Subdural Hematoma, presents with strokelike symptoms. Seems since yesterday morning 9 AM patient having difficulty speaking and some right-sided weakness. She has history of stroke and has some left-sided weakness from previous stroke. She ambulates with a walker. Lives with significant other. Patient says she could not ambulate well yesterday. She came tonight with ongoing symptoms. By the time she came to the hospital she was able to speak better. Patient still having movements where could not speak properly. Can tell her name. Knows that she is in the hospital. Can tell her date of . Could tell current month and year. Denies any headache. Vision is okay. No sore throat. No cough. No difficulty swallowing. No fevers. No chest pain. No shortness of breath. No nausea. No abdominal pain. Normal bowel and bladder movements. Hemodynamics are okay. Patient was recently in August 2025 was in the hospital for back pain. Also in July 2025 patient was in the hospital for mechanical fall and right knee pain and at that time she was discharged to SNF. Patient has history of stroke in the past and has speech difficulties. Patient seems ongoing difficulty with expressive aphasia since her past stroke which waxes and wanes with any stress as per records. Past medical history. As mentioned above Past surgical history. Bilateral breast lesion excision. Colonoscopy. Cardiac cath with stent placement. EGD. Knee arthroscopy. Laparoscopic appendectomy. Bilateral cataract extraction. Left rotator cuff repair. Social history. No smoking. Alcohol rarely. No drug use. Family history. Father had CHF. Mother had breast cancer. Lung cancer. Asthma. Aunt had breast cancer. Son has hypertension. Admission Exam Per Admitting Provider Physical Exam: General- Slow to answer. Not in acute distress Head- atraumatic Eyes- PERRL, EOMI. ENT- oropharynx clear Neck- supple, no JVD. Lungs- clear to auscultation no wheezing or crackles Heart- regular rhythm; no murmur, no gallop. Abdomen- normal bowel sounds, soft, nontender, no distension. Extremities- no pretibial edema, no erythema seen Neuro- alert, oriented x 3; PERRL, EOMI; no facial palsy; having moments of dysphasia , power 3-4/5 in upper extremities. 3-4/5 in right lower extremity 2/5 in left lower extremity. couldnot lift and hold left lower extremity, no obvious pronator drift, coordination of movements normal. sensations and position sense intact. 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, chronic heart failure with reserved EF, ESBL UTI Discharge Exam Lying in bed without any acute distress Constitutional well developed, well nourished, + ill appearing and + obese Eyes PERRL, conjunctivae normal, anicteric sclerae ENMT external ear and nose normal, oropharynx normal Neck trachea midline, no thyromegaly Respiratory no respiratory distress Auscultation: lungs clear to auscultation bilaterally Cardiovascular Rate/Rhythm: regular rate and regular rhythm; not tachycardic Heart Sounds: normal S1, normal S2 and + murmur Extremities: no edema Gastrointestinal (Abdomen) Inspection/Auscultation: normal bowel sounds; abdomen not distended Percussion/Palpation: abdomen soft; abdomen nontender Neurologic normal touch/pain/proprioception, moves all extremities and + focal motor deficit ( minimal weakness involving the left upper extremity) Lymphatic no cervical or axillary lymphadenopathy Discharge Data Allergies Allergy/AdvReac Type Severity Reaction Status Date / Time paroxetine Allergy Severe ANAPHYLAXIS Verified 08/20/25 21:05 mold Allergy Intermediate asthma Verified 08/20/25 21:05 symptoms pollen extracts Allergy Intermediate asthma Verified 08/20/25 21:05 symptoms Penicillins Allergy Mild BLISTERED Verified 08/20/25 21:05 HANDS grapefruit Allergy Unknown POSITIVE Verified 08/20/25 21:05 ALLERGY TEST/BRONCHITIS vasquez AdvReac Intermediate gas and Verified 08/20/25 21:05 bloating with consuption of green or kidneys beans broccoli AdvReac Intermediate GAS Verified 08/20/25 21:05 cabbage AdvReac Intermediate "Brassica Verified 08/20/25 22:44 oleracea" -- gas/bloating cauliflower AdvReac Intermediate GAS Verified 08/20/25 21:05 crab AdvReac Intermediate diarrhea Verified 08/20/25 21:05 green vasquez AdvReac Intermediate GAS/BLOATIN Verified 08/20/25 21:05 G peanut AdvReac Intermediate GAS/BLOATIN Verified 08/20/25 21:05 G peas AdvReac Intermediate GAS/BLOATIN Verified 08/20/25 21:05 G orange AdvReac Unknown POSITIVE Verified 08/20/25 21:05 ALLERGY TEST/BRONCHITIS Consultations 09/26/25 01:05 ED Decision to Admit Stat 09/26/25 05:26 Consult Neurology Routine 09/26/25 13:08 Consult Cardiology Routine 09/26/25 17:50 Consult Infectious Diseases Routine 09/27/25 14:04 Consult Anesthesiology Routine Procedures Performed Operation Date: 09/28/25 07:30 Actual Procedures p Echo Transesophageal - DO daivd Mcduffie Echo Color Flow - DO david Mcduffie Echo Doppler Complete - Kris Chandler DO Ordered Studies 09/25/25 22:42 CT angio head w con Stat CT angio neck with con Stat CT head/brain wo con Stat 09/26/25 05:26 MR brain wo/w con Urgent 09/27/25 07:[address] [CT head/brain wo con] Routine 09/27/25 08:10 CT chest with and without contrast [CT chest diagnostic wo/w con] Routine CTA abd pelvis wo/w con [CT angio abd pelvis wo/w con] Routine 09/28/25 11:30 FL video swallow Routine 10/01/25 23:44 CT head/brain wo con Stat 10/02/25 06:29 MR angio head wo con Stat MRI Brain [MR brain wo con] Stat Hospital Course (1) Stroke-like symptoms: In summary 85-year-old female with past medical history significant for type 2 diabetes, hypertension, hypothyroidism, dyslipidemia, sleep apnea, mild persistent asthma, paroxysmal atrial fibrillation, CKD stage III, chronic CHF, CAD s/p LAD Stent, Hypertension, GERD, Stress Female Incontinence, Degenerative Disc Disease, History of Left-Sided Weakness from Stroke, History of Expressive Aphasia, Depression, History of Subdural Hematoma admitted for strokelike symptoms and appears to have had a cardioembolic stroke. Patient with SDH and taken off of eliquis at that time. Blood cultures from 09/26 revealed 4/4 staph epi +MEC. MELANIE today shows mitral valve vegetations #Cardioembolic stroke, right cerebellum last known normal 9am 09/25 expressive aphasia noted, RUE weakness, weakness noted CT head no acute findings CTA head and neck no acute findings MRI with right cerebellar stroke, appears embolic per review of report No afib detected thus far Concern for possible embolic stoke iso bacteremia -Holding eliquis -Cardiology: MELANIE done 09/28 Resume ASA for now, per neuro antiplatelet agents okay but no full anticoagulation With the history of subdural hematoma will not restart Eliquis Remains stable without any significant symptoms except weakness No other neurological symptoms # recurrent acute multifocal infarct Development of difficulty in speech with left upper extremity weakness which is minimally improved since last night MRI did show innumerable foci of multi vascular territorial restricted diffusion new since 09/26/2025, most of which are subcentimeter diffusely throughout the cerebrum and also within the cerebellum and brainstem likely thromboembolic source Discussed with the neurologist Not to start any other antiplatelet besides aspirin that she has been on given increased risk of bleeding Patient remains in sinus rhythm and cardiology mention not to start any Eliquis given the history of brain hemorrhage and being in sinus rhythm This was discussed extensively with the son She will be continued with aspirin and not be started with Eliquis and/or Plavix Will continue with PT OT and speech evaluation #Staph Epi Bacteremia 4/4 cultures on admission positive- Staph epidermidis that is resistant to ox acillin CT abd/p and chest ordered: no clear source identified, no wounds noted, no devices/prosthetics MELANIE demonstrated bacterial endocarditis Vanc started and ertapenem was added due to endocarditis on MELANIE ID consulted: appreciate input and recommendation and will need to update with the antibiotic Repeat blood cultures have been negative Will keep in touch with ID for further recommendation of antibiotic and duration Discussed with the on-call ID and will continue intravenous vancomycin for 6 weeks in total Remains stable without any significant symptoms except weakness as mentioned bef ore She is ready to be discharged to [facility] following the placement #UTI- ESBL E. coli dysuria reported culture with e coli- urine culture is growing ESBL E. coli and the patient has been on ertapenem which is sensitive Continue antibiotics Will continue IV ertapenem for a total of 10 days #Elevated troponin likely demand iso stroke/poor po/like PAF event trend troponin no active signs of acs at this time #Ambulatory dysfunction awaiting PT and OT evaluation prior to discharge Will be discharged to [facility] to continue PT and #Paroxysmal atrial fibrillation Continue metoprolol No longer anticoagulation secondary to traumatic subdural hematoma September 2024 and recurrent falls Rate is controlled and remains hemodynamically stable Remains in sinus rhythm throughout the hospital stay #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 #Chronic heart failure preserved ejection fraction Continue torsemide with potassium supplement Monitor for volume overload No evidence of fluid overload and/or symptoms from CHF #Hypertension Continue Toprol and torsemide Hold losartan for permissive hypertension blood pressure remains stable #CAD status post LAD stent in 1999 On aspirin statin and beta-monico #Hypothyroidism On Synthyroid #History of diabetes not not on meds Not on meds Will follow HbA1c levels-minimally high at 6.6 #Stress urinary incontinence On Ditropan #Asthma Currently stable Continue home inhalers #GERD On PPI DVT prophylaxis Continue SCDS Continue on Telemetry Condition guarded at present Full code. 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, chronic heart failure with reserved EF, ESBL UTI Condition on Discharge: Fair Activity: As commented below Activity Comment: Will need PT OT and speech therapy Non-emergency contact: Primary Care Provider Call non-emergency contact if: you have any medication questions and your symptoms worsen Follow-up/Referrals: Lilo Mai MD [Primary Care Provider] - (Please make an appointment with your PCP to within 7 days following discharge from the facility) Diet: Carb Consistent or DM2 Diet Texture: Dental soft (bite-sized) Addtl Attending Provider Instructions: Please take precautions to avoid falls Finish the course antibiotic with intravenous vancomycin and ertapenem as advi sed Weekly CBC, CMP and ESR while on intravenous antibiotic Continue PT OT and speech therapy Pending Studies at Discharge: No Stand-Alone Forms: My [facility], Medications to Prevent Stroke Skilled Items Patient informed of condition?: Yes DNR: No Discharge Level of Care: Acute rehab Communicable Disease: No Discharge Prognosis: Stable Lines: None Urinary Catheter: Yes Medications and DC Order Prescriptions: New atorvastatin 40 mg Tablet 80 mg PO QAM Qty: 30 0RF vancomycin 1.5 gram recon soln 1.5 g IV Q24H ertapenem 1 gram recon soln 1 g IV DAILY Qty: 5 0RF Continued torsemide 20 mg tablet 20 mg PO DAILY polyethylene glycol 3350 17 gram powder in packet 17 g PO DAILY PRN (Reason: Constipation) oxybutynin chloride 10 mg tablet extended release 24hr 10 mg PO DAILY aspirin 81 mg tablet,delayed release (DR/EC) 81 mg PO DAILY levothyroxine 75 mcg tablet 75 mcg PO DAILY potassium chloride 20 mEq tablet,ER particles/crystals 20 meq PO BID magnesium oxide 400 mg (241.3 mg magnesium) tablet 400 mg PO DAILY pantoprazole 40 mg tablet,delayed release (DR/EC) 40 mg PO DAILY nystatin 100,000 unit/gram cream 1 applic TOPICAL BID PRN (Reason: Rash) montelukast 10 mg tablet 10 mg PO DAILY metoprolol succinate 25 mg tablet extended release 24 hr 25 mg PO DAILY Lumigan 0.01 % drops 1 drp OPB HS fluticasone propion-salmeterol [Wixela Inhub] 250-50 mcg/dose Blister With Device 1 inh INHALATION BID B complex-vitamin C-folic acid 1 mg Tablet 1 tab PO DAILY azelastine 137 mcg (0.1 %) [place],Non-Aerosol 2 spray INTRANASAL QPM Rx Instructions: administer into each nostril multivitamin with minerals Tablet 1 tab PO DAILY fluticasone propionate 50 mcg/actuation [place],Suspension 2 spray INTRANASAL DAILY Rx Instructions: administer into each nostril coenzyme Q10 100 mg Capsule 100 mg PO DAILY diclofenac sodium [Voltaren Arthritis Pain] 1 % Gel 2 g TOPICAL TID PRN (Reason: Pain) Rx Instructions: apply to single elbow, wrist or hand; for hand includes palm/fingers/back of hand guaifenesin [Mucinex] 600 mg Tablet Extended Release 12hr 600 mg PO Q12H PRN (Reason: Congestion) albuterol sulfate 90 mcg/actuation Aerosol Powdr Breath Activated 2 inh INHALATION Q4H PRN (Reason: Shortness Of Breath Or Wheezing) ketoconazole 2 % Cream 1 applic TOPICAL DAILY PRN (Reason: Rash) Discontinued losartan 50 mg tablet 50 mg PO DAILY atorvastatin 20 mg tablet 20 mg PO DAILY Discharge Orders: Discharge Order (Routine); Ordered 10/02/25 Ordered By: Ciara Colbert Admission Data Admit Date/Time: 09/26/25 02:40 Attending Provider: Ciara Colbert Admit Provider: Aniket Ochoa Primary Care Provider: Lilo Mai Other Providers: Aniket Ochoa; Manuel Pena; Kris Chandler; Erin Seymour; Chace Peacock; Rebecca Finley; Panda Arreola; Robyn Ceballos Other Interventions: Discharge Summary Assessment (RN) Last Done: 10/02/25 17:03
[2025-10-03] MEDS ORDERED: POTASSIUM CHLORIDE CRTAB 20 MEQ TABCR PO SCH (09:00)
== END 2025-10-02 16:45 | DRG 871 ==
LOC: ED 22:18 → 2S 09-26 02:40 → SUATTDRO 09-26 02:40 → 2S 09-26 04:22

== ENCOUNTER 2025-10-28 13:28 | Observation (INO) ==
[2025-10-28] MEDS: OPTIRAY 320 125ml IV ONE (14:02)
[2025-10-28 14:07] LABS: Hematocrit (blood only) 35.7 % (37.0-47.0); Hemoglobin 11.4 g/dL (12.0-16.0); Immature Granulocytes # (auto) 0.02 K/uL (0.01-0.20); Immature Granulocytes % (auto) 0.3 %; Mean Corpuscular Hemoglobin 29.4 pg (25.0-34.0); Mean Corpuscular Volume 92.0 fL (80.0-100.0); Platelet Count 299 K/uL (130-400); RDW Standard Deviation 50.9 fL (36.4-46.3); Red Blood Count 3.88 M/uL (4.20-5.40); White Blood Count 6.96 K/ul (4.8-10.8)
[2025-10-28 14:25] LABS: Alanine Aminotransferase 12.0 U/L (7-52); Albumin Globulin Ratio 0.9 (0.9-2); Albumin Level 3.4 gm/dl (3.4-5.0); Alkaline Phosphatase 81.0 U/L (34-104); Anion Gap 6.0 (3-11); Bilirubin,Total 0.5 mg/dl (0.2-1.0); Blood Urea Nitrogen 17.0 mg/dl (6-23); Calcium 9.6 mg/dl (8.6-10.3); Carbon Dioxide 24.0 mmol/L (21-32); Chloride 109.0 mmol/L (98-107); Creatinine Clr Calc Pharmacy 47.0 ml/min; Globulin 3.6 gm/dl (2.5-4.0); Glucose 93.0 mg/dl (70-99(Fasting)); Magnesium 1.8 mg/dl (1.7-2.4); Potassium 4.8 mmol/L (3.5-5.1); Sodium 139.0 mmol/L (136-145); Total Protein 7.0 gm/dl (6.0-8.3)
[2025-10-28 14:40] LABS: INR 1.1 (0.9-1.1); Partial Thromboplastin Time 21 Seconds (21-31); Prothrombin Time 11.2 Seconds (9.0-12.0)
--- NOTE | 2025-10-28 14:59 | CT Scan Report ---
EXAM: CT Head Without Intravenous Contrast INDICATION: Left lower extremity numbness. History of stroke. TECHNIQUE: Axial computed tomography images of the head/brain without intravenous contrast. Sagittal and/or coronal reformats are provided. Sagittal and coronal reformatted images were created and reviewed. This CT exam was performed using one or more of the following dose reduction techniques: automated exposure control, adjustment of the mA and/or kV according to patient size, and/or use of iterative reconstruction technique. COMPARISON: No relevant prior studies available. FINDINGS: Limitations: None. Brain and extra-axial spaces: There is age appropriate cortical atrophy and chronic ischemic periventricular white matter hypodensity. No acute infarct, hemorrhage or mass noted. Bones/joints: No acute changes. Soft tissues: No acute abnormality noted. Vasculature: Intracranial atherosclerotic calcification noted. Sinuses: No layering fluid in the visualized portions of the paranasal sinuses. Mastoid air cells: No mastoid effusion. Orbits: No acute abnormality noted. IMPRESSION: Cerebral atrophy. No acute changes. ACT 112: N/A Electronically signed by Juanita Enciso 10-28-2025 2:58 PM
--- NOTE | 2025-10-28 15:00 | CT Scan Report ---
EXAM: CT Angiography Head and Neck With Intravenous Contrast INDICATION: Left lower extremity numbness. TECHNIQUE: [place] [facility] [place]/head and neck CT angiography protocol performed with intravenous contrast. Sagittal and coronal reformatted images were created and reviewed. This CT exam was performed using one or more of the following dose reduction techniques: automated exposure control, adjustment of the mA and/or kV according to patient size, and/or use of iterative reconstruction technique. MIP reconstructed images were created and reviewed. CONTRAST: 112 ml of Optiray 320 was administered intravenously. COMPARISON: None. FINDINGS: HEAD: Right anterior cerebral artery: No abnormality noted. No occlusion or significant stenosis. Anterior communicating artery is present. No aneurysm. Right middle cerebral artery: No abnormality noted. No occlusion or significant stenosis. No aneurysm. Right posterior cerebral artery: No abnormality noted. No occlusion or significant stenosis. No aneurysm. Right intracranial internal carotid artery: Mild calcific plaque.. No significant stenosis. No dissection or occlusion. Right intracranial vertebral artery: No abnormality noted. No significant stenosis. No dissection or occlusion. Left anterior cerebral artery: No abnormality noted. No occlusion or significant stenosis. No aneurysm. Left middle cerebral artery: No abnormality noted. No occlusion or significant stenosis. No aneurysm. Left posterior cerebral artery: No abnormality noted. No occlusion or significant stenosis. No aneurysm. Left intracranial internal carotid artery: Mild calcific plaque. No significant stenosis. No dissection or occlusion. Left intracranial vertebral artery: No abnormality noted. No significant stenosis. No dissection or occlusion. Basilar artery: No abnormality noted. No occlusion or significant stenosis. No aneurysm. Other vasculature: No vascular malformation. NECK: Right common carotid artery: No abnormality noted. No significant stenosis. No dissection or occlusion. Right extracranial internal carotid artery: Mild calcific plaque. No significant stenosis. No dissection or occlusion. Right external carotid artery: No abnormality noted. No occlusion. Right extracranial vertebral artery: No abnormality noted. No significant stenosis. No dissection or occlusion. Left common carotid artery: No abnormality noted. No significant stenosis. No dissection or occlusion. Left extracranial internal carotid artery: Calcific plaque. No significant stenosis. No dissection or occlusion. Left external carotid artery: No abnormality noted. No occlusion. Left extracranial vertebral artery: No abnormality noted. No significant stenosis. No dissection or occlusion. Lung apices: No acute abnormality noted. HEAD and NECK: Bones/joints: No significant abnormality. Soft tissues: No abnormality noted. CAROTID STENOSIS REFERENCE USING NASCET CRITERIA: % ICA stenosis = (1 - narrowest ICA diameter/diameter of distal cervical ICA) x 100. Mild - <50% stenosis. Moderate - 50-69% stenosis. Severe - 70-94% stenosis. Near occlusion - 95-99% stenosis. Occluded - 100% stenosis. IMPRESSION: No significant angiographic abnormality in the head or neck. ACT 112: N/A Electronically signed by Juanita Enciso 10-28-2025 2:58 PM
--- NOTE | 2025-10-28 15:28 | Emergency Department Note ---
Impression & Plan Left leg numbness, Acute confusion ED Provider Note NAME: ERNIE WELLER AGE: 85 SEX: F : 1940 ARRIVES VIA: Ambulance INFORMANT: Patient, ED PROVIDER(S): Priya Sarmiento MD CHIEF COMPLAINT: Left foot numbness HPI: This is a 85-year-old female presenting for left foot numbness. Patient was seen here previously about 1 month ago for stroke thought to be due to endocarditis. Patient has a right IJ and is on week 4 of vancomycin therapy. She reports new left foot numbness. She reports that her stroke was on the left side. She reports that her voice was not this slurred before. She reports she is on blood thinners, Lovenox. ROS: See above HPI for pertinent positives & negatives. A total of 10 systems reviewed and were otherwise negative. PAST MEDICAL HISTORY: See Below PAST SURGICAL HISTORY: See Below FAMILY HISTORY: See Below SOCIAL HISTORY: See Below HOME MEDICATIONS: See Below ALLERGIES: See Below VITALS: See Below PHYSICAL EXAMINATION: General: resting comfortably in no acute distress Head: Normocephalic and atraumatic Eyes: Normal inspection, extraocular muscles intact Ear, nose, throat: Normal external exam Neck: Normal range of motion Respiratory: lungs clear to auscultation bilaterally Cardiovascular: Regular rate/rhythm, no murmur GI: soft, nontender, no guarding or rebound Extremities: nontender, moves all extremities, 2+ pulses, motor function intact Neuro: The patient awake and alert, appropriately conversive, expressive aphasia, slurred speech, left upper and lower extremity weakness compared to right, slight left foot/leg numbness Skin: Warm, dry, and intact MEDICAL DECISION MAKING: This is an 85-year-old female sent for left foot numbness. History of endocarditis causing embolic stroke. She currently has minimal new symptoms aside from numbness. Son at bedside later states that patient was significantly confused today when he visited her. She was "in a fog "and not making sense. He was concerned about UTI as well. He was unsure whether this was any stroke or UTI. - Bloodwork is reviewed showing no significant leukocytosis, anemia, electrolyte or creatinine abnormality. Troponin elevated however to less than previous values - CT imaging is currently negative for any new acute process - Due to patient's symptoms, son does prefer admission at this time. She is already on Lovenox and antibiotics for endocarditis/stroke. - Care discussed with Dr. Baltazar for admission Differential diagnosis: Stroke, TIA, embolism, Independent History obtained from: Son Diagnostics interpreted by me: ECG: ECG independently interpreted by me with normal sinus rhythm, rate of 65, normal axis, normal VT, normal QRS, normal QTc, no ST segment elevations consistent with STEMI criteria Cardiac Monitoring: An order was placed for continuous cardiac monitoring. The monitor shows a rate of 69 with sinus rhythm. 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 Staphylococcus epidermidis bacteremia Elevated troponin (Acute) Acute UTI (Acute) Acute alteration in mental status (Acute) Acute ischemic stroke Stroke-like symptoms Leukocytosis (Acute) Right shoulder pain (Acute) Ambulatory dysfunction (Acute) Weakness (Acute) Confusion (Acute) Right knee pain Difficulty speaking Dyslipidemia, goal LDL below 70 ASCVD (arteriosclerotic cardiovascular disease) History of cardioembolic cerebrovascular accident (CVA) (Acute) CHI (closed head injury) (Acute) Ambulatory dysfunction (Acute) Fall (Acute) History of CVA (cerebrovascular accident) Diabetes mellitus type 2, diet-controlled CHF (congestive heart failure) Confusion (Acute) Weakness (Acute) Hypertension (Acute) Hypertensive urgency Cervical strain, acute (Acute) Head injury (Acute) Drug-induced sinus bradycardia Hiatal hernia with GERD Vasovagal syncope Acute hypoxemic respiratory failure Hypomagnesemia (Acute) Vomiting (Acute) Chest pain (Acute) Syncope (Acute) Hypomagnesemia (Acute) Stroke-like symptoms (Acute) Nausea & vomiting (Acute) Arthralgia Elevated troponin Near syncope Ambulatory dysfunction (Acute) Chronic pain in left foot (Acute) Hypomagnesemia (Acute) Generalized weakness (Acute) Osteoarthritis of ankle, left Left ankle swelling (Acute) Hypomagnesemia (Acute) Syncope and collapse (Acute) Right rotator cuff tear Right knee DJD Hypokalemia Anemia (Acute) Postoperative bleeding from mouth (Acute) Chronic anticoagulation (Acute) Near syncope DVT prophylaxis Postoperative bleeding from mouth History of cataract extraction (Chronic) HTN (hypertension) (Chronic) HLD (hyperlipidemia) (Chronic) DEMARIO (obstructive sleep apnea) (Chronic) CKD (chronic kidney disease) stage 3, GFR 30-59 ml/min (Chronic) GERD (gastroesophageal reflux disease) (Chronic) History of placement of stent in LAD coronary artery (Chronic) Stented coronary artery (Chronic) Medical History (Updated 10/28/25 @ 15:57 by Priya Sarmiento MD) Acute on chronic heart failure with preserved ejection fraction Embolic stroke HTN (hypertension) Hypothyroidism Sleep apnea Primary open angle glaucoma Asthma PAF (paroxysmal atrial fibrillation) T2DM (type 2 diabetes mellitus) Orthostatic syncope CAD (coronary artery disease) stent in 1999 Fall Hyponatremia Surgical History (Updated 09/27/25 @ 14:43 by Brandt Denny MD) History of arthroscopic knee surgery History of appendectomy History of tonsillectomy History of rotator cuff surgery Family History Father CHF (congestive heart failure) Mother Cancer Social History Smoking Status: Never smoker Second Hand Exposure: No; Do You Dip or Chew Tobacco: No; Hx Alcohol Use: No Hx Substance Use: No Preferred Language: Cypriot Communication Ability: Impaired Site Project Manager Required: No Beliefs That Will Affect Care: None marital status: Life Partner Current Living Situation: Significant Other Current Living Situation Comment: s/o Feels Safe at Home: Yes Assistive Devices: Walker and Wheelchair Allergies Allergies Allergy/AdvReac Type Severity Reaction Status Date / Time paroxetine Allergy Severe ANAPHYLAXIS Verified 08/20/25 21:05 mold Allergy Intermediate asthma Verified 08/20/25 21:05 symptoms pollen extracts Allergy Intermediate asthma Verified 08/20/25 21:05 symptoms Penicillins Allergy Mild BLISTERED Verified 08/20/25 21:05 HANDS grapefruit Allergy Unknown POSITIVE Verified 08/20/25 21:05 ALLERGY TEST/BRONCHITIS vasquez AdvReac Intermediate gas and Verified 08/20/25 21:05 bloating with consuption of green or kidneys beans broccoli AdvReac Intermediate GAS Verified 08/20/25 21:05 cabbage AdvReac Intermediate "Brassica Verified 08/20/25 22:44 oleracea" -- gas/bloating cauliflower AdvReac Intermediate GAS Verified 08/20/25 21:05 crab AdvReac Intermediate diarrhea Verified 08/20/25 21:05 green vasquez AdvReac Intermediate GAS/BLOATIN Verified 08/20/25 21:05 G peanut AdvReac Intermediate GAS/BLOATIN Verified 08/20/25 21:05 G peas AdvReac Intermediate GAS/BLOATIN Verified 08/20/25 21:05 G orange AdvReac Unknown POSITIVE Verified 08/20/25 21:05 ALLERGY TEST/BRONCHITIS Home Meds Home Medications Medication Instructions Recorded Confirmed albuterol sulfate 90 mcg/actuation 2 inh inhalation Q4H PRN Shortness 09/26/25 09/26/25 breath activated powder inhaler Of Breath Or Wheezing aspirin 81 mg tablet,delayed 81 mg PO DAILY 09/26/25 09/26/25 release azelastine 137 mcg (0.1 %) nasal 2 spray intranasal QPM 09/26/25 09/26/25 spray bimatoprost 0.01 % eye drops 1 drp OPB HS 09/26/25 09/26/25 (Lumigan) coenzyme Q10 100 mg capsule 100 mg PO DAILY 09/26/25 09/26/25 diclofenac sodium 1 % topical gel 2 g topical TID PRN Pain 09/26/25 09/26/25 (Voltaren Arthritis Pain) fluticasone 250 mcg-salmeterol 50 1 inh inhalation BID 09/26/25 09/26/25 mcg/dose blistr powdr for inhalation (Wixela Inhub) fluticasone propionate 50 2 spray intranasal DAILY 09/26/25 09/26/25 mcg/actuation nasal spray,suspension guaifenesin 600 mg tablet, 600 mg PO Q12H PRN Congestion 09/26/25 09/26/25 extended release 12 hr (Mucinex) ketoconazole 2 % topical cream 1 applic topical DAILY PRN Rash 09/26/25 09/26/25 levothyroxine 75 mcg tablet 75 mcg PO DAILY 09/26/25 09/26/25 magnesium oxide 400 mg (241.3 mg 400 mg PO DAILY 09/26/25 09/26/25 magnesium) tablet metoprolol succinate 25 mg 25 mg PO DAILY 09/26/25 09/26/25 tablet,extended release 24 hr montelukast 10 mg tablet 10 mg PO DAILY 09/26/25 09/26/25 multivitamin with minerals 1 tab PO DAILY 09/26/25 09/26/25 nystatin 100,000 unit/gram topical 1 applic topical BID PRN Rash 09/26/25 09/26/25 cream oxybutynin chloride 10 mg 10 mg PO DAILY 09/26/25 09/26/25 tablet,extended release 24 hr pantoprazole 40 mg tablet,delayed 40 mg PO DAILY 09/26/25 09/26/25 release polyethylene glycol 3350 17 gram 17 g PO DAILY PRN Constipation 09/26/25 09/26/25 oral powder packet potassium chloride 20 mEq 20 meq PO BID 09/26/25 09/26/25 tablet,extended release(part/cryst) torsemide 20 mg tablet 20 mg PO DAILY 09/26/25 09/26/25 vitamin B complex-vitamin C-folic 1 tab PO DAILY 09/26/25 09/26/25 acid 1 mg tablet Previous Rx's Medication Instructions Recorded atorvastatin 40 mg tablet 80 mg (2 x 40 mg) PO QAM #30 tabs 10/02/25 vancomycin 1.5 gram intravenous 1.5 g IV Q24H Infective 10/02/25 solution Endocarditis Results & Data (ED) Vital Signs Vital Signs - 24 hr 10/28/25 13:38 10/28/25 13:44 10/28/25 13:51 Temperature 36.6 C 36.6 C Temperature Source Oral Oral Pulse Rate 71 67 Pulse Rate [Apical] 67 Respiratory Rate 18 18 Blood Pressure 132/71 Blood Pressure [Left Arm] 132/71 Blood Pressure Mean 91 Blood Pressure Mean [Left Arm] 91 Blood Pressure Position [Left Arm] Pulse Oximetry 98 98 Oxygen Delivery Method Room Air Room Air Sepsis Recent Fever Within 48 Hours No Sepsis New/Unexplained Change in Mental Status N/A Sepsis Action Taken by Nursing No Action Required 10/28/25 15:10 Temperature Temperature Source Pulse Rate Pulse Rate [Apical] 69 Respiratory Rate 20 Blood Pressure Blood Pressure [Left Arm] 128/70 Blood Pressure Mean Blood Pressure Mean [Left Arm] 89 Blood Pressure Position [Left Arm] Lying Pulse Oximetry 94 Oxygen Delivery Method Room Air Sepsis Recent Fever Within 48 Hours Sepsis New/Unexplained Change in Mental Status Sepsis Action Taken by Nursing Laboratory Data 10/28/25 13:47 10/28/25 13:47 Lab Results 10/28/25 10/28/25 10/28/25 Range/Units 13:45 13:47 13:50 WBC 6.96 (4.8-10.8) K/ul RBC 3.88 L (4.20-5.40) M/uL Hgb 11.4 L (12.0-16.0) g/dL POC Hgb 10.9 L (12.0-16.0) g/dl Hct 35.7 L (37.0-47.0) % POC Hct 32 L (37-47) % MCV 92.0 (80.0-100.0) fL MCH 29.4 (25.0-34.0) pg MCHC 31.9 L (32.0-36.0) g/dL RDW Std Deviation 50.9 H (36.4-46.3) fL RDW Coeff of Stoney 15.1 H (11.5-14.5) % Plt Count 299 (130-400) K/uL MPV 10.8 (9.4-12.4) fL Immature Gran % (Auto) 0.3 % Neut % (Auto) 67.4 % Lymph % (Auto) 13.8 % [place] % (Auto) 9.9 % Eos % (Auto) 7.9 % Baso % (Auto) 0.7 % Neut # (Auto) 4.69 (1.40-6.50) K/uL Lymph # (Auto) 0.96 L (1.20-3.40) K/uL [place] # (Auto) 0.69 H (0.11-0.59) K/uL Eos # (Auto) 0.55 H (0.00-0.50) K/uL Baso # (Auto) 0.05 (0.00-0.20) K/uL Immature Gran # (Auto) 0.02 (0.01-0.20) K/uL PT 11.2 (9.0-12.0) Seconds INR 1.1 (0.9-1.1) APTT 21 (21-31) Seconds PTT Ratio 0.8 POC Sodium 140 (135-144) mmol/L Sodium 139 (136-145) mmol/L POC Potassium 5.1 H (3.3-5.0) mmol/L Potassium 4.8 (3.5-5.1) mmol/L POC Chloride 109 (101-112) mmol/L Chloride 109 H (98-107) mmol/L Carbon Dioxide 24 (21-32) mmol/L POC Total CO2 23 L (24-31) mmol/L Anion Gap 6 (3-11) POC Anion Gap 14.0 L (16-25) mmol/L POC BUN 19 H (7-18) mg/dl BUN 17 (6-23) mg/dl Creatinine 0.79 (0.6-1.2) mg/dl POC Creatinine 0.9 (0.6-1.3) mg/dl Est Cr Clr Drug Dosing 47.0 ml/min eGFR 72.80 BUN/Creatinine Ratio 21.5 H (10-20) Glucose 93 (70-99(Fasting)) mg/dl POC Glucose 94 (70-99) mg/dl POC Glucose (other) 91 (70-99) mg/dl Calcium 9.6 (8.6-10.3) mg/dl POC Ioniz Calcium Geni 1.25 (1.12-1.32) mmol/l Magnesium 1.8 (1.7-2.4) mg/dl Total Bilirubin 0.5 (0.2-1.0) mg/dl AST 20 (13-39) U/L ALT 12 (7-52) U/L Alkaline Phosphatase 81 (34-104) U/L Troponin I High Sens 27.8 H (0-14) pg/ml Total Protein 7.0 (6.0-8.3) gm/dl Albumin 3.4 (3.4-5.0) gm/dl Globulin 3.6 (2.5-4.0) gm/dl Albumin/Globulin Ratio 0.9 (0.9-2) Administered Medications Discontinued Medications Ioversol (Optiray 320 125ml) 112 ml IV ONCE ONE Stop: 10/28/25 14:02 Last Admin: 10/28/25 14:02 Dose: 112 ml Documented By: [facility] [place] Imaging Data Radiologist's Impression: Head CT 10/28/25 13:42 EXAM: CT Head Without Intravenous Contrast INDICATION: Left lower extremity numbness. History of stroke. TECHNIQUE: Axial computed tomography images of the head/brain without intravenous contrast. Sagittal and/or coronal reformats are provided. Sagittal and coronal reformatted images were created and reviewed. This CT exam was performed using one or more of the following dose reduction techniques: automated exposure control, adjustment of the mA and/or kV according to patient size, and/or use of iterative reconstruction technique. COMPARISON: No relevant prior studies available. FINDINGS: Limitations: None. Brain and extra-axial spaces: There is age appropriate cortical atrophy and chronic ischemic periventricular white matter hypodensity. No acute infarct, hemorrhage or mass noted. Bones/joints: No acute changes. Soft tissues: No acute abnormality noted. Vasculature: Intracranial atherosclerotic calcification noted. Sinuses: No layering fluid in the visualized portions of the paranasal sinuses. Mastoid air cells: No mastoid effusion. Orbits: No acute abnormality noted. IMPRESSION: Cerebral atrophy. No acute changes. ACT 112: N/A Electronically signed by Juanita Enciso 10-28-2025 2:58 PM Head CTA 10/28/25 13:42 EXAM: CT Angiography Head and Neck With Intravenous Contrast INDICATION: Left lower extremity numbness. TECHNIQUE: [place]/head and neck CT angiography protocol performed with intravenous contrast. Sagittal and coronal reformatted images were created and reviewed. This CT exam was performed using one or more of the following dose reduction techniques: automated exposure control, adjustment of the mA and/or kV according to patient size, and/or use of iterative reconstruction technique. MIP reconstructed images were created and reviewed. CONTRAST: 112 ml of Optiray 320 was administered intravenously. COMPARISON: None. FINDINGS: HEAD: Right anterior cerebral artery: No abnormality noted. No occlusion or significant stenosis. Anterior communicating artery is present. No aneurysm. Right middle cerebral artery: No abnormality noted. No occlusion or significant stenosis. No aneurysm. Right posterior cerebral artery: No abnormality noted. No occlusion or significant stenosis. No aneurysm. Right intracranial internal carotid artery: Mild calcific plaque.. No significant stenosis. No dissection or occlusion. Right intracranial vertebral artery: No abnormality noted. No significant stenosis. No dissection or occlusion. Left anterior cerebral artery: No abnormality noted. No occlusion or significant stenosis. No aneurysm. Left middle cerebral artery: No abnormality noted. No occlusion or significant stenosis. No aneurysm. Left posterior cerebral artery: No abnormality noted. No occlusion or significant stenosis. No aneurysm. Left intracranial internal carotid artery: Mild calcific plaque. No significant stenosis. No dissection or occlusion. Left intracranial vertebral artery: No abnormality noted. No significant stenosis. No dissection or occlusion. Basilar artery: No abnormality noted. No occlusion or significant stenosis. No aneurysm. Other vasculature: No vascular malformation. NECK: Right common carotid artery: No abnormality noted. No significant stenosis. No dissection or occlusion. Right extracranial internal carotid artery: Mild calcific plaque. No significant stenosis. No dissection or occlusion. Right external carotid artery: No abnormality noted. No occlusion. Right extracranial vertebral artery: No abnormality noted. No significant stenosis. No dissection or occlusion. Left common carotid artery: No abnormality noted. No significant stenosis. No dissection or occlusion. Left extracranial internal carotid artery: Calcific plaque. No significant stenosis. No dissection or occlusion. Left external carotid artery: No abnormality noted. No occlusion. Left extracranial vertebral artery: No abnormality noted. No significant stenosis. No dissection or occlusion. Lung apices: No acute abnormality noted. HEAD and NECK: Bones/joints: No significant abnormality. Soft tissues: No abnormality noted. CAROTID STENOSIS REFERENCE USING NASCET CRITERIA: % ICA stenosis = (1 - narrowest ICA diameter/diameter of distal cervical ICA) x 100. Mild - <50% stenosis. Moderate - 50-69% stenosis. Severe - 70-94% stenosis. Near occlusion - 95-99% stenosis. Occluded - 100% stenosis. IMPRESSION: No significant angiographic abnormality in the head or neck. ACT 112: N/A Electronically signed by Juanita Enciso 10-28-2025 2:58 PM Neck CTA 10/28/25 13:42 EXAM: CT Angiography Head and Neck With Intravenous Contrast INDICATION: Left lower extremity numbness. TECHNIQUE: [place]/head and neck CT angiography protocol performed with intravenous contrast. Sagittal and coronal reformatted images were created and reviewed. This CT exam was performed using one or more of the following dose reduction techniques: automated exposure control, adjustment of the mA and/or kV according to patient size, and/or use of iterative reconstruction technique. MIP reconstructed images were created and reviewed. CONTRAST: 112 ml of Optiray 320 was administered intravenously. COMPARISON: None. FINDINGS: HEAD: Right anterior cerebral artery: No abnormality noted. No occlusion or significant stenosis. Anterior communicating artery is present. No aneurysm. Right middle cerebral artery: No abnormality noted. No occlusion or significant stenosis. No aneurysm. Right posterior cerebral artery: No abnormality noted. No occlusion or significant stenosis. No aneurysm. Right intracranial internal carotid artery: Mild calcific plaque.. No significant stenosis. No dissection or occlusion. Right intracranial vertebral artery: No abnormality noted. No significant stenosis. No dissection or occlusion. Left anterior cerebral artery: No abnormality noted. No occlusion or significant stenosis. No aneurysm. Left middle cerebral artery: No abnormality noted. No occlusion or significant stenosis. No aneurysm. Left posterior cerebral artery: No abnormality noted. No occlusion or significant stenosis. No aneurysm. Left intracranial internal carotid artery: Mild calcific plaque. No significant stenosis. No dissection or occlusion. Left intracranial vertebral artery: No abnormality noted. No significant stenosis. No dissection or occlusion. Basilar artery: No abnormality noted. No occlusion or significant stenosis. No aneurysm. Other vasculature: No vascular malformation. NECK: Right common carotid artery: No abnormality noted. No significant stenosis. No dissection or occlusion. Right extracranial internal carotid artery: Mild calcific plaque. No significant stenosis. No dissection or occlusion. Right external carotid artery: No abnormality noted. No occlusion. Right extracranial vertebral artery: No abnormality noted. No significant stenosis. No dissection or occlusion. Left common carotid artery: No abnormality noted. No significant stenosis. No dissection or occlusion. Left extracranial internal carotid artery: Calcific plaque. No significant stenosis. No dissection or occlusion. Left external carotid artery: No abnormality noted. No occlusion. Left extracranial vertebral artery: No abnormality noted. No significant stenosis. No dissection or occlusion. Lung apices: No acute abnormality noted. HEAD and NECK: Bones/joints: No significant abnormality. Soft tissues: No abnormality noted. CAROTID STENOSIS REFERENCE USING NASCET CRITERIA: % ICA stenosis = (1 - narrowest ICA diameter/diameter of distal cervical ICA) x 100. Mild - <50% stenosis. Moderate - 50-69% stenosis. Severe - 70-94% stenosis. Near occlusion - 95-99% stenosis. Occluded - 100% stenosis. IMPRESSION: No significant angiographic abnormality in the head or neck. ACT 112: N/A Electronically signed by Juanita Enciso 10-28-2025 2:58 PM Discharge Plan Visit Data Chief Complaint: Foot Injury/Pain Stated Complaint: Left sided numbness ED Provider: Priya Sarmiento Discharge Problem: Left leg numbness, Acute confusion Patient Disposition: Admitted As Inpatient Condition: Fair Discharge Instructions Krames/Other Patient Handouts: ED Confusion, ED Paresthesia Activity Restrictions/Additional Instructions: You are seen for your confusion/lower extremity numbness. At this time your CT imaging is negative. Please follow-up with your primary care doctor for further evaluation and therapy. Please continue the Lovenox and antibiotics until complete. Prescriptions Prescriptions: No Action torsemide 20 mg tablet 20 mg PO DAILY polyethylene glycol 3350 17 gram powder in packet 17 g PO DAILY PRN (Reason: Constipation) oxybutynin chloride 10 mg tablet extended release 24hr 10 mg PO DAILY aspirin 81 mg tablet,delayed release (DR/EC) 81 mg PO DAILY levothyroxine 75 mcg tablet 75 mcg PO DAILY potassium chloride 20 mEq tablet,ER particles/crystals 20 meq PO BID magnesium oxide 400 mg (241.3 mg magnesium) tablet 400 mg PO DAILY pantoprazole 40 mg tablet,delayed release (DR/EC) 40 mg PO DAILY nystatin 100,000 unit/gram cream 1 applic TOPICAL BID PRN (Reason: Rash) montelukast 10 mg tablet 10 mg PO DAILY metoprolol succinate 25 mg tablet extended release 24 hr 25 mg PO DAILY Lumigan 0.01 % drops 1 drp OPB HS fluticasone propion-salmeterol [Wixela Inhub] 250-50 mcg/dose Blister With Device 1 inh INHALATION BID B complex-vitamin C-folic acid 1 mg Tablet 1 tab PO DAILY azelastine 137 mcg (0.1 %) [place],Non-Aerosol 2 spray INTRANASAL QPM Rx Instructions: administer into each nostril multivitamin with minerals Tablet 1 tab PO DAILY fluticasone propionate 50 mcg/actuation [place],Suspension 2 spray INTRANASAL DAILY Rx Instructions: administer into each nostril coenzyme Q10 100 mg Capsule 100 mg PO DAILY diclofenac sodium [Voltaren Arthritis Pain] 1 % Gel 2 g TOPICAL TID PRN (Reason: Pain) Rx Instructions: apply to single elbow, wrist or hand; for hand includes palm/fingers/back of hand guaifenesin [Mucinex] 600 mg Tablet Extended Release 12hr 600 mg PO Q12H PRN (Reason: Congestion) albuterol sulfate 90 mcg/actuation Aerosol Powdr Breath Activated 2 inh INHALATION Q4H PRN (Reason: Shortness Of Breath Or Wheezing) ketoconazole 2 % Cream 1 applic TOPICAL DAILY PRN (Reason: Rash) atorvastatin 40 mg Tablet 80 mg PO QAM Qty: 30 0RF vancomycin 1.5 gram recon soln 1.5 g IV Q24H Referrals Referrals: Lilo Mai MD [Primary Care Provider] -
--- NOTE | 2025-10-28 15:40 | History & Physical Report ---
Date of Service October 28, 2025 Assessment & Plan (1) Acute confusion: (2) Left leg numbness: Plan: CVA recrudescence Transient confusion H/O subdural hematoma Presented with strokelike symptoms--left upper and lower extremity weakness, tingling, transient blurry vision, expressive aphasia --CT head:Cerebral atrophy. No acute changes. --Head CTA:No significant angiographic abnormality in the head or neck. --Neck CTA:No significant angiographic abnormality in the head or neck. Continue aspirin, statin Neurology evaluated on prior admission recommended no additional antiplatelets/anticoagulant due to high risk for bleeding Stroke work up including lipid panel, A1C, MRI Brain, ECHO Speech and swallow eval Neuro checks, Neurology consult PT/OT Will also obtain VBG, Vanco level, B12, TSH, ammonia, phosphorus level and UA to rule out other etiologies Chronic troponin elevation Troponin levels much better than prior Denies any anginal symptoms Staph epidermidis bacteremia Diagnosed last admission. MELANIE confirmed vegetation Continue IV vancomycin as recommended by infectious disease last admission Will repeat blood cultures to ensure clearance IV vancomycin to be continued until 11/09/2025 per patient's family Ambulatory dysfunction Continue PT OT, fall precautions Likely discharge back to rehab when able Paroxysmal atrial fibrillation Rate controlled Continue metoprolol No longer on anticoagulation secondary to traumatic subdural hematoma September 2024 and recurrent falls Chronic heart failure with preserved EF No signs of significant volume overload Continue metoprolol Resume torsemide tomorrow Monitor volume status Hypertension Continue metoprolol Previously on losartan Monitor blood pressure and adjust medications as needed CAD S/P stent Continue aspirin, statin, metoprolol Hypothyroidism Continue levothyroxine DM II Diet controlled Last HbA1c 6.6 Continue insulin sliding scale Monitor blood glucose levels Stress incontinence On oxybutynin Asthma Continue home inhalers No signs of acute exacerbation GERD Continue PPI DVT Px: SCDS FOR NOW CODE STATUS Full code Disposition Admit to PCU I personally interviewed and examined the patient at bedside. I spent a total [id number] coordinating, documenting, and providing care for this patient. History of Present Illness Chief Complaint: Stroke like symptoms Primary Care Provider: Lilo Mai MD Patient is an 85-year-old female with history of diabetes mellitus, hypertension, hypothyroidism, dyslipidemia, sleep apnea, mild persistent asthma, paroxysmal atrial fibrillation, CKD stage III, chronic CHF, coronary artery dis ease s/p LAD stent, GERD, stress incontinence, degenerative disc disease, history of CVA with left-sided weakness, expressive aphasia, depression,h/o subdural hematoma, infective endocarditis currently on IV vancomycin presents from [facility] with history of strokelike symptoms. Most of the history is obtained from patient, patient's son at bedside and ED physician and old records. Patient's son states that she was confused this morning while at rehab. He states that she was lethargic and " fog", not herself and was mixing up details and found to have some word finding difficulty. She also had tingling and weakness in her left upper extremity and noted to have decreased left leg sensation with weakness when compared to right. Patient admits to have some dizziness this morning and noted to have bilateral blurry vision which currently resolved while in ED. Patient also believes her speech is better currently. She is oriented x 3 during my encounter while in ED. She has been on IV vancomycin for Staph epidermidis bacteremia and was also treated for ESBL E. coli UTI during last hospitalization 4 weeks ago. Denies any history of chest pain, dyspnea, palpitations, cough, fever, chills, loss of consciousness, headache, nausea, vomiting, abdominal pain, diarrhea, dysuria, hematuria. Allergies Allergy/AdvReac Type Severity Reaction Status Date / Time paroxetine Allergy Severe ANAPHYLAXIS Verified 08/20/25 21:05 mold Allergy Intermediate asthma Verified 08/20/25 21:05 symptoms pollen extracts Allergy Intermediate asthma Verified 08/20/25 21:05 symptoms Penicillins Allergy Mild BLISTERED Verified 08/20/25 21:05 HANDS grapefruit Allergy Unknown POSITIVE Verified 08/20/25 21:05 ALLERGY TEST/BRONCHITIS vasquez AdvReac Intermediate gas and Verified 08/20/25 21:05 bloating with consuption of green or kidneys beans broccoli AdvReac Intermediate GAS Verified 08/20/25 21:05 cabbage AdvReac Intermediate "Brassica Verified 08/20/25 22:44 oleracea" -- gas/bloating cauliflower AdvReac Intermediate GAS Verified 08/20/25 21:05 crab AdvReac Intermediate diarrhea Verified 08/20/25 21:05 green vasquez AdvReac Intermediate GAS/BLOATIN Verified 08/20/25 21:05 G peanut AdvReac Intermediate GAS/BLOATIN Verified 08/20/25 21:05 G peas AdvReac Intermediate GAS/BLOATIN Verified 08/20/25 21:05 G orange AdvReac Unknown POSITIVE Verified 08/20/25 21:05 ALLERGY TEST/BRONCHITIS Home Medications Medication Instructions Recorded Confirmed Type albuterol sulfate 90 mcg/actuation 2 inh inhalation Q4H PRN Shortness 09/26/25 10/28/25 History breath activated powder inhaler Of Breath Or Wheezing aspirin 81 mg tablet,delayed 81 mg PO DAILY 09/26/25 10/28/25 History release azelastine 137 mcg (0.1 %) nasal 2 spray intranasal HS 09/26/25 10/28/25 History spray bimatoprost 0.01 % eye drops 1 drp OPB HS 09/26/25 10/28/25 History (Lumigan) coenzyme Q10 100 mg capsule 100 mg PO DAILY 09/26/25 10/28/25 History diclofenac sodium 1 % topical gel 2 g topical TID PRN Pain 09/26/25 10/28/25 History (Voltaren Arthritis Pain) fluticasone 250 mcg-salmeterol 50 1 inh inhalation BID 09/26/25 10/28/25 History mcg/dose blistr powdr for inhalation (Wixela Inhub) fluticasone propionate 50 2 spray intranasal DAILY 09/26/25 10/28/25 History mcg/actuation nasal spray,suspension guaifenesin 600 mg tablet, 600 mg PO Q12H PRN Congestion 09/26/25 10/28/25 History extended release 12 hr (Mucinex) ketoconazole 2 % topical cream 1 applic topical DAILY PRN Rash 09/26/25 10/28/25 History levothyroxine 75 mcg tablet 75 mcg PO DAILY 09/26/25 10/28/25 History magnesium oxide 400 mg (241.3 mg 400 mg PO DAILY 09/26/25 10/28/25 History magnesium) tablet metoprolol succinate 25 mg 25 mg PO DAILY 09/26/25 10/28/25 History tablet,extended release 24 hr montelukast 10 mg tablet 10 mg PO DAILY 09/26/25 10/28/25 History multivitamin with minerals 1 tab PO DAILY 09/26/25 10/28/25 History nystatin 100,000 unit/gram topical 1 applic topical BID PRN Rash 09/26/25 10/28/25 History cream oxybutynin chloride 10 mg 10 mg PO DAILY 09/26/25 10/28/25 History tablet,extended release 24 hr pantoprazole 40 mg tablet,delayed 40 mg PO DAILY 09/26/25 10/28/25 History release polyethylene glycol 3350 17 gram 17 g PO DAILY PRN Constipation 09/26/25 10/28/25 History oral powder packet potassium chloride 20 mEq 20 meq PO BID 09/26/25 10/28/25 History tablet,extended release(part/cryst) torsemide 20 mg tablet 20 mg PO DAILY 09/26/25 10/28/25 History vitamin B complex-vitamin C-folic 1 tab PO DAILY 09/26/25 10/28/25 History acid 1 mg tablet atorvastatin 40 mg tablet 80 mg (2 x 40 mg) PO QAM #30 tabs 10/02/25 10/28/25 Rx vancomycin 1.5 gram intravenous 1.5 g IV Q24H Infective 10/02/25 10/28/25 Rx solution Endocarditis enoxaparin 40 mg/0.4 mL 40 mg subcut DAILY 10/28/25 10/28/25 History subcutaneous syringe fluticasone furoate 100 1 inh inhalation DAILY 10/28/25 10/28/25 History mcg-vilanterol 25 mcg/dose inhalation powder (Breo Ellipta) oxybutynin chloride 5 mg 10 mg PO DAILY 10/28/25 10/28/25 History tablet,extended release 24 hr vitamin B complex 1 tab PO DAILY 10/28/25 10/28/25 History Past Med/Surg History Problem List Acute confusion (Acute) Left leg numbness (Acute) 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 Staphylococcus epidermidis bacteremia Elevated troponin (Acute) Acute UTI (Acute) Acute alteration in mental status (Acute) Acute ischemic stroke Stroke-like symptoms Leukocytosis (Acute) Right shoulder pain (Acute) Ambulatory dysfunction (Acute) Weakness (Acute) Confusion (Acute) Right knee pain Difficulty speaking Dyslipidemia, goal LDL below 70 ASCVD (arteriosclerotic cardiovascular disease) History of cardioembolic cerebrovascular accident (CVA) (Acute) CHI (closed head injury) (Acute) Ambulatory dysfunction (Acute) Fall (Acute) History of CVA (cerebrovascular accident) Diabetes mellitus type 2, diet-controlled CHF (congestive heart failure) Confusion (Acute) Weakness (Acute) Hypertension (Acute) Hypertensive urgency Cervical strain, acute (Acute) Head injury (Acute) Drug-induced sinus bradycardia Hiatal hernia with GERD Vasovagal syncope Acute hypoxemic respiratory failure Hypomagnesemia (Acute) Vomiting (Acute) Chest pain (Acute) Syncope (Acute) Hypomagnesemia (Acute) Stroke-like symptoms (Acute) Nausea & vomiting (Acute) Arthralgia Elevated troponin Near syncope Ambulatory dysfunction (Acute) Chronic pain in left foot (Acute) Hypomagnesemia (Acute) Generalized weakness (Acute) Osteoarthritis of ankle, left Left ankle swelling (Acute) Hypomagnesemia (Acute) Syncope and collapse (Acute) Right rotator cuff tear Right knee DJD Hypokalemia Anemia (Acute) Postoperative bleeding from mouth (Acute) Chronic anticoagulation (Acute) Near syncope DVT prophylaxis Postoperative bleeding from mouth History of cataract extraction (Chronic) HTN (hypertension) (Chronic) HLD (hyperlipidemia) (Chronic) DEMARIO (obstructive sleep apnea) (Chronic) CKD (chronic kidney disease) stage 3, GFR 30-59 ml/min (Chronic) GERD (gastroesophageal reflux disease) (Chronic) History of placement of stent in LAD coronary artery (Chronic) Stented coronary artery (Chronic) Medical History Acute on chronic heart failure with preserved ejection fraction Embolic stroke HTN (hypertension) Hypothyroidism Sleep apnea Primary open angle glaucoma Asthma PAF (paroxysmal atrial fibrillation) T2DM (type 2 diabetes mellitus) Orthostatic syncope CAD (coronary artery disease) stent in 1999 Fall Hyponatremia Surgical History History of arthroscopic knee surgery History of appendectomy History of tonsillectomy History of rotator cuff surgery Family History Father CHF (congestive heart failure) Mother Cancer Social History Smoking Status: Never smoker Second Hand Exposure: No; Do You Dip or Chew Tobacco: No; Hx Alcohol Use: No Hx Substance Use: No Preferred Language: Hebrew Communication Ability: Impaired Parks [employer] Re[employer] Manager Required: No Beliefs That Will Affect Care: None marital status: Life Partner Current Living Situation: Significant Other Current Living Situation Comment: s/o Feels Safe at Home: Yes Assistive Devices: Walker and Wheelchair Review of Systems Review of Systems: All systems reviewed & are unremarkable except as noted in Subjective Physical Exam Physical Exam: Physical Exam: Vitals signs as noted above General Appearance:Moderately built and nourished, no apparent distress, elderly, frail Head: normocephalic, Atraumatic Eyes: normal inspection, EOMI Neck: supple, Trachea midline, +R IJ Access Respiratory/Chest: Normal breath sounds, CTA, No accessory muscle use Cardiovascular: S1, S2, +murmur Abdomen/GI:Soft, Non tender, Bowel sounds present Extremities/Musculoskeletal:normal inspection, no edema Neurologic/Psych:AAOX3, LUE 4/5, LLE 4+/5, Trace edema, slow to respond/some expressive aphasia Skin: normal color, warm Results & Data Results & Data Vital Signs (Past 12 Hours) Vital Signs Temp Pulse Pulse Resp BP BP Pulse Ox 10/28/25 15:10 69 20 128/70 94 10/28/25 13:51 36.6 C 67 18 132/71 98 10/28/25 13:44 36.6 C 67 18 132/71 98 10/28/25 13:38 71 O2 Del Method 10/28/25 15:10 Room Air 10/28/25 13:51 Room Air 10/28/25 13:44 Room Air 10/28/25 13:38 Laboratory Results Short CBC 10/28/25 Range/Units 13:47 WBC 6.96 (4.8-10.8) K/ul Hgb 11.4 L (12.0-16.0) g/dL Hct 35.7 L (37.0-47.0) % Plt Count 299 (130-400) K/uL BMP 10/28/25 13:47 Sodium 139 Potassium 4.8 Chloride 109 H Carbon Dioxide 24 BUN 17 Creatinine 0.79 Glucose 93 Calcium 9.6 Liver Function 10/28/25 Range/Units 13:47 Total Bilirubin 0.5 (0.2-1.0) mg/dl AST 20 (13-39) U/L ALT 12 (7-52) U/L Alkaline Phosphatase 81 (34-104) U/L Albumin 3.4 (3.4-5.0) gm/dl Diagnostic Findings --CT head:Cerebral atrophy. No acute changes. --Head CTA:No significant angiographic abnormality in the head or neck. --Neck CTA:No significant angiographic abnormality in the head or neck.
[2025-10-28] MEDS ORDERED: VANCOMYCIN CONSULT ACTIVE PRN (16:28)
[2025-10-28] MEDS ORDERED: VANCOMYCIN HCL / NSS 1,000 MG/270 ML BAG IV SCH (16:30)
[2025-10-28 16:56] LABS: Thyroid Stimulating Hormone 1.152 uIu/ml (0.300-4.500)
[2025-10-28 16:56] LABS: Base Excess VBG 2.2 mEq/L; HCO3 VBG 27 mmol/L; Oxygen Saturation VBG < 60.0 %; PCO2 VBG 43 mmHg (38-50); PO2 VBG 22 mmHg; pH VBG 7.41 (7.36-7.41)
[2025-10-28 18:24] LABS: Appearance Urine Clear (Clear); Bacteria Urine Automated None Seen (None Seen); Cast Urine Automated 0-2 /lpf (0-2); Glucose Urine UA Negative (Negative); RBC Urine Automated >20 /hpf (0-2); WBC Urine Automated 21-50 /hpf (0-5)
[2025-10-28] MEDS ORDERED: GLUCOSE 10 TAB/TUBE PO PRN (18:41)
[2025-10-28] MEDS ORDERED: POLYETHYLENE (MIRALAX) 17 GM PACK PO PRN (18:41)
[2025-10-28] MEDS ORDERED: GLUCOSE 40% GEL 15 GM TUBE PO PRN (18:41)
[2025-10-28] MEDS ORDERED: DEXTROSE 50% 50 ML SYRINGE IV PRN (18:41)
[2025-10-28] MEDS ORDERED: GLUCAGON FOR INJ 1 MG VIAL SQ PRN (18:41)
[2025-10-28] MEDS ORDERED: ACETAMINOPHEN 325 MG TAB PO PRN (18:41)
[2025-10-28] MEDS ORDERED: CARBOHYDRATES FOR HYPOGLYCEMIA PO PRN (18:41)
[2025-10-28] MEDS ORDERED: PHARMACIST DISCHARGE MED REC CONSULT PRN (18:41)
[2025-10-28] MEDS ORDERED: ONDANSETRON INJ 2 MG/ML 2 ML VIAL IV PRN (18:41)
[2025-10-28] MEDS: VANCOMYCIN HCL 1,500 MG in SODIUM CHLORIDE 0.9% 500 ML IV SCH (18:58)
[2025-10-28] MEDS: SODIUM CHLORIDE 0.9% 1,000 ML IV ONE (18:58)
[2025-10-28] MEDS: AZELASTINE HCL 0.1% NASAL 200 SPRAYS/27,400 MCG BTL SCH (20:04)
[2025-10-28] MEDS: BIMATOPROST 0.01% OP SOLN 2.5 ML BTL OPB SCH (20:04)
[2025-10-28] MEDS: INSULIN ASPART PER UNIT CHARGE SC SCH (21:50)
[2025-10-29] MEDS: GADOBUTROL 30ML VIAL IV ONE (00:42)
--- NOTE | 2025-10-29 01:35 | Magnetic Resonance Report ---
EXAM: MR brain wo/w con CLINICAL HISTORY: cva like TECHNIQUE: MRI of the brain was performed with and without intravenous contrast administration (specify contrast agent and dosage). Sequences obtained include pre-contrast and post-contrast T1-weighted, T2-weighted, FLAIR (Fluid-Attenuated Inversion Recovery), DWI (Diffusion-Weighted Imaging), and ADC (Apparent Diffusion Coefficient) sequences. COMPARISON: Comparison is made with prior MR 10/02/2025 FINDINGS: Brain Parenchyma: Redemonstration of multiple FLAIR hyperintense foci in bilateral brain parenchyma and cerebellum with interval normalization of signal on diffusion weighted and ADC images in majority of the previously noted acute infarcts, representing subacute infarcts (Temporal evolution Since prior CT study ). Few residual areas of bright signal on diffusion weighted images with normalization on ADC images in bilateral brain parenchyma, representing subacute infarcts. Two areas of bright signal on diffusion weighted images in left occipital and right cerebellar region shows faint dark signal on ADC images, representing acute to subacute infarcts. Multiple discrete and clustered FLAIR hyperintense foci are seen in subcortical and deep white matter of bilateral cerebral hemispheres, without diffusion restriction, representing chronic microvascular ischemic changes. Fazekas grade II. Post-Contrast Findings: Faint contrast enhancement in the FLAIR hyperintense foci in left temporal and occipital regions, representing neovascularization in subacute infarcts likely. Ventricles and Sulci: Ventricular system is prominent. Sulci and cisternal spaces are prominent Skull and Calvarium: No evidence of skull vault lesions or abnormal marrow signal within the calvarium. IMPRESSION: Redemonstration of multiple FLAIR hyperintense foci in bilateral brain parenchyma and cerebellum with interval normalization of signal on diffusion weighted and ADC images in majority of the previously noted acute infarcts, representing subacute infarcts (Temporal evolution Since prior CT study ). Few residual areas of bright signal on diffusion weighted images with normalization on ADC images in bilateral brain parenchyma, representing subacute infarcts. Two areas of bright signal on diffusion weighted images in left occipital and right cerebellar region shows faint dark signal on ADC images, representing acute to subacute infarcts. Recommended interval follow up and clinical correlation Electronically signed by Marco Butler 10-29-2025 01:34 AM
[2025-10-29 06:15] LABS: Hematocrit (blood only) 30.0 % (37.0-47.0); Hemoglobin 9.7 g/dL (12.0-16.0); Immature Granulocytes # (auto) 0.02 K/uL (0.01-0.20); Immature Granulocytes % (auto) 0.3 %; Mean Corpuscular Hemoglobin 29.2 pg (25.0-34.0); Mean Corpuscular Volume 90.4 fL (80.0-100.0); Platelet Count 272 K/uL (130-400); RDW Standard Deviation 49.5 fL (36.4-46.3); Red Blood Count 3.32 M/uL (4.20-5.40); White Blood Count 7.60 K/ul (4.8-10.8)
[2025-10-29] MEDS: LEVOTHYROXINE SODIUM 75 MCG TABLET PO SCH (06:30)
[2025-10-29 06:34] LABS: Anion Gap 7.0 (3-11); Blood Urea Nitrogen 11.0 mg/dl (6-23); Calcium 8.6 mg/dl (8.6-10.3); Carbon Dioxide 22.0 mmol/L (21-32); Chloride 111.0 mmol/L (98-107); Cholesterol 101.0 mg/dl (0-200); Creatinine Clr Calc Pharmacy 57.6 ml/min; Glucose 127.0 mg/dl (70-99(Fasting)); HDL Cholesterol 40.0 mg/dl; Potassium 4.1 mmol/L (3.5-5.1); Sodium 140.0 mmol/L (136-145); Triglycerides 82.0 mg/dl (0-150)
[2025-10-29 07:52] LABS: Hemoglobin A1C 6.3 % (4.5-5.6)
[2025-10-29] MEDS: ATORVASTATIN 40 MG TAB PO SCH (09:42)
[2025-10-29] MEDS: OXYBUTYNIN CHLORIDE XL 5 MG TABCR PO SCH (09:42)
[2025-10-29] MEDS: MAGNESIUM OXIDE 400 MG TAB PO SCH (09:43)
[2025-10-29] MEDS: ASPIRIN 81 MG ECTAB PO SCH (09:43)
[2025-10-29] MEDS: METOPROLOL SUCC 25MG EXT REL TAB PO SCH (09:43)
[2025-10-29] MEDS: MONTELUKAST SODIUM 10 MG TABLET PO SCH (09:43)
[2025-10-29] MEDS: FLUTICASONE PROPIONATE NA SPR 16 GM BTL SCH (09:44)
[2025-10-29] MEDS: FLUTICASONE/VILANTEROL 100/25MCG 14 PUFFS/INHALER INH SCH (09:45)
--- NOTE | 2025-10-29 09:53 | Electrocardiogram Report ---
Test Reason : Blood Pressure : */* mmHG Vent. Rate : 65 BPM Atrial Rate : 65 BPM P-R Int : 178 ms QRS Dur : 88 ms QT Int : 408 ms P-R-T Axes : 35 -22 20 degrees QTcB Int : 424 ms Normal sinus rhythm Normal ECG When compared with ECG of 25-Sep-2025 22:30, Nonspecific T wave abnormality no longer evident in Lateral leads Confirmed by Fred East ([id number]) on 10/29/2025 9:52:28 AM Referred By: [facility] Confirmed By: Fred East
[2025-10-29 11:56] VITALS: BP 135/70; PULSE 76; RESP 16; TEMP 97.9; O2SAT 97
--- NOTE | 2025-10-29 12:59 | Neurology Consultation ---
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 Mechanism remains endocarditis and management remains ongoing supportive care with antibiotics. No further neurologic workup recommended. She should remain on daily aspirin. Please contact us with any additional questions. Telehealth Consultation Telehealth Information Telehealth Information: I performed this visit using a real-time telehealth connection between my location and the patients originating location ([facility]). After connecting through interactive tele-video, patient was identified by name and date of and/or wristband check.Patient (or authorized healthcare passenger representative) was informed that this was a telemedicine visit and it was being conducted confidentially over secure lines. My office door was closed and no one else was present in the room with me.Patient (or authorized healthcare passenger representative) provided consent to proceed with the visit, expressed an understanding of privacy and security of the telemedicine visit, and gave permission to have a hospital passenger representative in the room in order to assist with the visit and to conduct portions of the visit, as needed. I informed the patient (or authorized healthcare passenger representative) that I reviewed their record and presented the opportunity for them to ask any questions regarding the visit today. The patient agreed to participate. History of Present Illness Reason for Consultation: abnormal MRI Requesting Physician: Dr. Ivey Attending Physician: Jair Ivey MD History of Present Illness Yudelka Palacios is an 85 yo F presenting with confusion from rehab. Recent admission with multifocal stroke secondary to endocarditis. Notes that she intermittenly has trouble communicating but not currently. Is confused why she is in the hospital. We were consulted for her MRI result. She denies otherwise any new weakness or numbness. Noting chronic L sided weakness for the past two years from a prior stroke. Allergies Allergy/AdvReac Type Severity Reaction Status Date / Time paroxetine Allergy Severe ANAPHYLAXIS Verified 08/20/25 21:05 mold Allergy Intermediate asthma Verified 08/20/25 21:05 symptoms pollen extracts Allergy Intermediate asthma Verified 08/20/25 21:05 symptoms Penicillins Allergy Mild BLISTERED Verified 08/20/25 21:05 HANDS grapefruit Allergy Unknown POSITIVE Verified 08/20/25 21:05 ALLERGY TEST/BRONCHITIS vasquez AdvReac Intermediate gas and Verified 08/20/25 21:05 bloating with consuption of green or kidneys beans broccoli AdvReac Intermediate GAS Verified 08/20/25 21:05 cabbage AdvReac Intermediate "Brassica Verified 08/20/25 22:44 oleracea" -- gas/bloating cauliflower AdvReac Intermediate GAS Verified 08/20/25 21:05 crab AdvReac Intermediate diarrhea Verified 08/20/25 21:05 green vasquez AdvReac Intermediate GAS/BLOATIN Verified 08/20/25 21:05 G peanut AdvReac Intermediate GAS/BLOATIN Verified 08/20/25 21:05 G peas AdvReac Intermediate GAS/BLOATIN Verified 08/20/25 21:05 G orange AdvReac Unknown POSITIVE Verified 08/20/25 21:05 ALLERGY TEST/BRONCHITIS Home Medications Medication Instructions Recorded Confirmed Type albuterol sulfate 90 mcg/actuation 2 inh inhalation Q4H PRN Shortness 09/26/25 10/28/25 History breath activated powder inhaler Of Breath Or Wheezing aspirin 81 mg tablet,delayed 81 mg PO DAILY 09/26/25 10/28/25 History release azelastine 137 mcg (0.1 %) nasal 2 spray intranasal HS 09/26/25 10/28/25 History spray bimatoprost 0.01 % eye drops 1 drp OPB HS 09/26/25 10/28/25 History (Lumigan) coenzyme Q10 100 mg capsule 100 mg PO DAILY 09/26/25 10/28/25 History diclofenac sodium 1 % topical gel 2 g topical TID PRN Pain 09/26/25 10/28/25 History (Voltaren Arthritis Pain) fluticasone 250 mcg-salmeterol 50 1 inh inhalation BID 09/26/25 10/28/25 History mcg/dose blistr powdr for inhalation (Wixela Inhub) fluticasone propionate 50 2 spray intranasal DAILY 09/26/25 10/28/25 History mcg/actuation nasal spray,suspension guaifenesin 600 mg tablet, 600 mg PO Q12H PRN Congestion 09/26/25 10/28/25 History extended release 12 hr (Mucinex) ketoconazole 2 % topical cream 1 applic topical DAILY PRN Rash 09/26/25 10/28/25 History levothyroxine 75 mcg tablet 75 mcg PO DAILY 09/26/25 10/28/25 History magnesium oxide 400 mg (241.3 mg 400 mg PO DAILY 09/26/25 10/28/25 History magnesium) tablet metoprolol succinate 25 mg 25 mg PO DAILY 09/26/25 10/28/25 History tablet,extended release 24 hr montelukast 10 mg tablet 10 mg PO DAILY 09/26/25 10/28/25 History multivitamin with minerals 1 tab PO DAILY 09/26/25 10/28/25 History nystatin 100,000 unit/gram topical 1 applic topical BID PRN Rash 09/26/25 10/28/25 History cream oxybutynin chloride 10 mg 10 mg PO DAILY 09/26/25 10/28/25 History tablet,extended release 24 hr pantoprazole 40 mg tablet,delayed 40 mg PO DAILY 09/26/25 10/28/25 History release polyethylene glycol 3350 17 gram 17 g PO DAILY PRN Constipation 09/26/25 10/28/25 History oral powder packet potassium chloride 20 mEq 20 meq PO BID 09/26/25 10/28/25 History tablet,extended release(part/cryst) torsemide 20 mg tablet 20 mg PO DAILY 09/26/25 10/28/25 History vitamin B complex-vitamin C-folic 1 tab PO DAILY 09/26/25 10/28/25 History acid 1 mg tablet atorvastatin 40 mg tablet 80 mg (2 x 40 mg) PO QAM #30 tabs 10/02/25 10/28/25 Rx vancomycin 1.5 gram intravenous 1.5 g IV Q24H Infective 10/02/25 10/28/25 Rx solution Endocarditis enoxaparin 40 mg/0.4 mL 40 mg subcut DAILY 10/28/25 10/28/25 History subcutaneous syringe fluticasone furoate 100 1 inh inhalation DAILY 10/28/25 10/28/25 History mcg-vilanterol 25 mcg/dose inhalation powder (Breo Ellipta) oxybutynin chloride 5 mg 10 mg PO DAILY 10/28/25 10/28/25 History tablet,extended release 24 hr vitamin B complex 1 tab PO DAILY 10/28/25 10/28/25 History Patient History Medical History Acute on chronic heart failure with preserved ejection fraction Embolic stroke HTN (hypertension) Hypothyroidism Sleep apnea Primary open angle glaucoma Asthma PAF (paroxysmal atrial fibrillation) T2DM (type 2 diabetes mellitus) Orthostatic syncope CAD (coronary artery disease) stent in 1999 Fall Hyponatremia Surgical History History of arthroscopic knee surgery History of appendectomy History of tonsillectomy History of rotator cuff surgery Family History Father CHF (congestive heart failure) Mother Cancer Social History Smoking Status: Former smoker Second Hand Exposure: No; Do You Dip or Chew Tobacco: No; Hx Alcohol Use: No Hx Substance Use: No Preferred Language: Amharic Communication Ability: Effective Vessel Manager Required: No Beliefs That Will Affect Care: None marital status: Life Partner Current Living Situation: Rehab Current Living Situation Comment: s/o Other Information That Helps Us Care for You: No Feels Safe at Home: Yes Safety Concerns: Feels Safe At This Time Assistive Devices: Glasses and Walker Review of Systems +L sided weakness Physical Exam Awake and alert, oriented, antigravity strength throughout with drift on the L. No facial asymmetry. Normal language reads and names objects on the stroke cards. Results & Data Vital Signs (Past 12 Hours) Vital Signs Temp Pulse Pulse Resp BP Pulse Ox Pulse Ox 10/29/25 11:08 97 10/29/25 11:05 36.6 C 76 16 135/70 97 10/29/25 11:00 77 18 148/79 H 96 10/29/25 08:08 36.2 C L 69 22 127/70 92 10/29/25 07:24 86 10/29/25 03:20 36.5 C 91 H 18 133/77 92 O2 Del Method O2 Flow Rate 10/29/25 11:08 0 10/29/25 11:05 Room Air 10/29/25 11:00 Room Air 10/29/25 08:08 Room Air 10/29/25 07:24 10/29/25 03:20 Room Air Laboratory Results Abnormal lab results 10/28/25 10/28/25 10/28/25 Range/Units 13:47 13:50 16:38 RBC 3.88 L (4.20-5.40) M/uL Hgb 11.4 L (12.0-16.0) g/dL POC Hgb 10.9 L (12.0-16.0) g/dl Hct 35.7 L (37.0-47.0) % POC Hct 32 L (37-47) % MCHC 31.9 L (32.0-36.0) g/dL RDW Std Deviation 50.9 H (36.4-46.3) fL RDW Coeff of Stoney 15.1 H (11.5-14.5) % Lymph # (Auto) 0.96 L (1.20-3.40) K/uL Potter # (Auto) 0.69 H (0.11-0.59) K/uL Eos # (Auto) 0.55 H (0.00-0.50) K/uL POC Potassium 5.1 H (3.3-5.0) mmol/L Chloride 109 H (98-107) mmol/L POC Total CO2 23 L (24-31) mmol/L POC Anion Gap 14.0 L (16-25) mmol/L POC BUN 19 H (7-18) mg/dl BUN/Creatinine Ratio 21.5 H (10-20) Glucose (70-99(Fasting)) mg/dl POC Glucose (70-99) mg/dl Hemoglobin A1c (4.5-5.6) % Troponin I High Sens 27.8 H 29.7 H (0-14) pg/ml Ur Specific [place] (1.000-1.030) Urine Ketones (Negative) Urine Blood (Negative) Ur Leukocyte Esterase (Negative) Urine WBC (Auto) (0-5) /hpf Urine RBC (Auto) (0-2) /hpf U Epithel Cells (Auto) (0-2) /hpf 10/28/25 10/28/25 10/29/25 Range/Units 18:00 20:29 05:27 RBC 3.32 L (4.20-5.40) M/uL Hgb 9.7 L (12.0-16.0) g/dL POC Hgb (12.0-16.0) g/dl Hct 30.0 L (37.0-47.0) % POC Hct (37-47) % MCHC (32.0-36.0) g/dL RDW Std Deviation 49.5 H (36.4-46.3) fL RDW Coeff of Stoney 15.0 H (11.5-14.5) % Lymph # (Auto) 0.58 L (1.20-3.40) K/uL Potter # (Auto) 0.61 H (0.11-0.59) K/uL Eos # (Auto) (0.00-0.50) K/uL POC Potassium (3.3-5.0) mmol/L Chloride 111 H (98-107) mmol/L POC Total CO2 (24-31) mmol/L POC Anion Gap (16-25) mmol/L POC BUN (7-18) mg/dl BUN/Creatinine Ratio (10-20) Glucose 127 H (70-99(Fasting)) mg/dl POC Glucose 119 H (70-99) mg/dl Hemoglobin A1c 6.3 H (4.5-5.6) % Troponin I High Sens (0-14) pg/ml Ur Specific [place] > 1.045 H (1.000-1.030) Urine Ketones Trace H (Negative) Urine Blood 3+ H (Negative) Ur Leukocyte Esterase 1+ H (Negative) Urine WBC (Auto) 21-50 H (0-5) /hpf Urine RBC (Auto) >20 H (0-2) /hpf U Epithel Cells (Auto) 3-5 H (0-2) /hpf 10/29/25 10/29/25 Range/Units 07:43 11:06 RBC (4.20-5.40) M/uL Hgb (12.0-16.0) g/dL POC Hgb (12.0-16.0) g/dl Hct (37.0-47.0) % POC Hct (37-47) % MCHC (32.0-36.0) g/dL RDW Std Deviation (36.4-46.3) fL RDW Coeff of Stoney (11.5-14.5) % Lymph # (Auto) (1.20-3.40) K/uL Potter # (Auto) (0.11-0.59) K/uL Eos # (Auto) (0.00-0.50) K/uL POC Potassium (3.3-5.0) mmol/L Chloride (98-107) mmol/L POC Total CO2 (24-31) mmol/L POC Anion Gap (16-25) mmol/L POC BUN (7-18) mg/dl BUN/Creatinine Ratio (10-20) Glucose (70-99(Fasting)) mg/dl POC Glucose 116 H 115 H (70-99) mg/dl Hemoglobin A1c (4.5-5.6) % Troponin I High Sens (0-14) pg/ml Ur Specific [place] (1.000-1.030) Urine Ketones (Negative) Urine Blood (Negative) Ur Leukocyte Esterase (Negative) Urine WBC (Auto) (0-5) /hpf Urine RBC (Auto) (0-2) /hpf U Epithel Cells (Auto) (0-2) /hpf Diagnostic Findings MRI Brain - persistent subacute restricted diffusion in the multifocal infarcts, no clear evidence of new infarcts.
[2025-10-29] MEDS ORDERED: STROKE PATIENT DISCHARGE STA (13:16)
--- NOTE | 2025-10-29 13:22 | Discharge Summary ---
Date of Service October 29, 2025 Admission HPI Per Admitting Provider Patient is an 85-year-old female with history of diabetes mellitus, hypertension, hypothyroidism, dyslipidemia, sleep apnea, mild persistent asthma, paroxysmal atrial fibrillation, CKD stage III, chronic CHF, coronary artery disease s/p LAD stent, GERD, stress incontinence, degenerative disc disease, history of CVA with left-sided weakness, expressive aphasia, depression,h/o subdural hematoma, infective endocarditis currently on IV vancomycin presents from [facility] with history of strokelike symptoms. Most of the history is obtained from patient, patient's son at bedside and ED physician and old spencer rds. Patient's son states that she was confused this morning while at rehab. He states that she was lethargic and " fog", not herself and was mixing up details and found to have some word finding difficulty. She also had tingling and weakness in her left upper extremity and noted to have decreased left leg sensation with weakness when compared to right. Patient admits to have some dizziness this morning and noted to have bilateral blurry vision which currently resolved while in ED. Patient also believes her speech is better currently. She is oriented x 3 during my encounter while in ED. She has been on IV vancomycin for Staph epidermidis bacteremia and was also treated for ESBL E. coli UTI during last hospitalization 4 weeks ago. Denies any history of chest pain, dyspnea, palpitations, cough, fever, chills, loss of consciousness, headache, nausea, vomiting, abdominal pain, diarrhea, dysuria, hematuria. Admission Exam Per Admitting Provider General Appearance:Moderately built and nourished, no apparent distress, elderly, frail Head: normocephalic, Atraumatic Eyes: normal inspection, EOMI Neck: supple, Trachea midline, +R IJ Access Respiratory/Chest: Normal breath sounds, CTA, No accessory muscle use Cardiovascular: S1, S2, +murmur Abdomen/GI:Soft, Non tender, Bowel sounds present Extremities/Musculoskeletal:normal inspection, no edema Neurologic/Psych:AAOX3, LUE 4/5, LLE 4+/5, Trace edema, slow to respond/some expressive aphasia Skin: normal color, warm Principal Diagnosis CVA recrudescence Transient confusion H/O subdural hematoma Discharge Exam General Appearance:Moderately built and nourished, no apparent distress, elderly, frail, ao x 3 Head: normocephalic, Atraumatic Eyes: normal inspection, EOMI Neck: supple, Trachea midline, +R IJ Access Respiratory/Chest: Normal breath sounds, CTA, No accessory muscle use Cardiovascular: S1, S2, +murmur Abdomen/GI:Soft, Non tender, Bowel sounds present Extremities/Musculoskeletal:normal inspection, no edema Neurologic/Psych:AAOX3, LUE 5/5, LLE 5/5, Trace edema, slow to respond/articulates clearly. Skin: normal color, warm Discharge Data Allergies Allergy/AdvReac Type Severity Reaction Status Date / Time paroxetine Allergy Severe ANAPHYLAXIS Verified 08/20/25 21:05 mold Allergy Intermediate asthma Verified 08/20/25 21:05 symptoms pollen extracts Allergy Intermediate asthma Verified 08/20/25 21:05 symptoms Penicillins Allergy Mild BLISTERED Verified 08/20/25 21:05 HANDS grapefruit Allergy Unknown POSITIVE Verified 08/20/25 21:05 ALLERGY TEST/BRONCHITIS vasquez AdvReac Intermediate gas and Verified 08/20/25 21:05 bloating with consuption of green or kidneys beans broccoli AdvReac Intermediate GAS Verified 08/20/25 21:05 cabbage AdvReac Intermediate "Brassica Verified 08/20/25 22:44 oleracea" -- gas/bloating cauliflower AdvReac Intermediate GAS Verified 08/20/25 21:05 crab AdvReac Intermediate diarrhea Verified 08/20/25 21:05 green vasquez AdvReac Intermediate GAS/BLOATIN Verified 08/20/25 21:05 G peanut AdvReac Intermediate GAS/BLOATIN Verified 08/20/25 21:05 G peas AdvReac Intermediate GAS/BLOATIN Verified 08/20/25 21:05 G orange AdvReac Unknown POSITIVE Verified 08/20/25 21:05 ALLERGY TEST/BRONCHITIS Consultations 10/28/25 18:41 Consult Neurology Routine Ordered Studies 10/28/25 13:42 CT angio head w con Stat CT angio neck with con Stat CT head/brain wo con Stat 10/28/25 18:41 MR brain wo/w con Routine Hospital Course (1) Acute confusion: (2) Left leg numbness: Per prior attending with addendum: CVA recrudescence Transient confusion H/O subdural hematoma Presented with strokelike symptoms--left upper and lower extremity weakness, tingling, transient blurry vision, expressive aphasia --CT head:Cerebral atrophy. No acute changes. --Head CTA:No significant angiographic abnormality in the head or neck. --Neck CTA:No significant angiographic abnormality in the head or neck. Continue aspirin, statin Neurology evaluated on prior admission recommended no additional an tiplatelets/anticoagulant due to high risk for bleeding Stroke work up including lipid panel, A1C, MRI Brain, ECHO Speech and swallow eval Neuro checks, Neurology consult PT/OT Will also obtain VBG, Vanco level, B12, TSH, ammonia, phosphorus level and UA to rule out other etiologies Chronic troponin elevation Troponin levels much better than prior Denies any anginal symptoms Staph epidermidis bacteremia Diagnosed last admission. MELANIE confirmed vegetation Continue IV vancomycin as recommended by infectious disease last admission Will repeat blood cultures to ensure clearance IV vancomycin to be continued until 11/09/2025 per patient's family Ambulatory dysfunction Continue PT OT, fall precautions Likely discharge back to rehab when able Paroxysmal atrial fibrillation Rate controlled Continue metoprolol No longer on anticoagulation secondary to traumatic subdural hematoma September 2024 and recurrent falls Chronic heart failure with preserved EF No signs of significant volume overload Continue metoprolol Resume torsemide tomorrow Monitor volume status Hypertension Continue metoprolol Previously on losartan Monitor blood pressure and adjust medications as needed CAD S/P stent Continue aspirin, statin, metoprolol Hypothyroidism Continue levothyroxine DM II Diet controlled Last HbA1c 6.6 Continue insulin sliding scale Monitor blood glucose levels Stress incontinence On oxybutynin Asthma Continue home inhalers No signs of acute exacerbation GERD Continue PPI DVT Px: SCDS FOR NOW CODE STATUS Full code Disposition Admit to PCU Addendum 10/29/2025: Patient seen and examined at bedside as a follow-up of possible stroke. Case was discussed with neurology, no further neurological recommendation, continue to treat her existing infection endocarditis. Continue her existing aspirin. Patient denies any fever/chest pain/shortness of breath/sore throat/cough/pain or burn w/ passing urine. Patient is generally weak and frail. Patient to continue her rehab at [facility]. Patient is being discharged with following instructions at the point of discharge: Follow-up with your primary care physician within a week time and likely you will need labs CBC/CMP/magnesium/phosphorus. Continue with your prior to arrival antibiotic for infective endocarditis. Neurology evaluated you, no new recommendation at this point. Follow-up with neurology as prior. Continue with physical therapy at rehab facility. Take your medications as prescribed. Please make sure that you are able to get your medications today by calling your pharmacy before you leave the hospital so that your treatment continuity is not broken. Home Health Attestation I certify that this patient is under my care and that I, or a physicians histology assistant working with me, had a face to-face encounter that meets the home health [id number] encounter requirements with this patient. The encounter with the patient was in whole, or in part, for the following medical condition, which is the primary reason for home health care (list medical condition): I certify that, based on my findings, the following services are medically necessary home health services: My clinical findings support the need for the above services because: Further, I certify that my clinical findings support that this patient is homebound (i.e. absences from home require considerable and taxing effort and are for medical reasons or sabianist services or infrequently or of short duration when for other reasons) because: Certification for Home Health Services: Based on the above findings, I certify that this patient is confined to the home and needs intermittent nursing home care, physical therapy and/or speech therapy or continues to need occupational therapy. The patient is under my care, and I have initiated the establishment of the plan of care. This patient will be followed by a physician who will periodically review the plan of care. Total Time Total Time Spent Total Time Spent (In Minutes): 40 Discharge Plan Discharge Items Patient Disposition: Transfer Inpatient Rehab Fac Reason For Visit: STROKE LIKE SYMPTOMS Discharge Diagnosis: CVA recrudescence Transient confusion H/O subdural hematoma Condition on Discharge: Fair Activity: Resume your previous activity Non-emergency contact: Primary Care Provider Call non-emergency contact if: you have any medication questions and your symptoms worsen Follow-up/Referrals: Lilo Mai MD [Primary Care Provider] - Diet: Carb Consistent or DM2 Addtl Attending Provider Instructions: Follow-up with your primary care physician within a week time and likely you will need labs CBC/CMP/magnesium/phosphorus. Continue with your prior to arrival antibiotic for infective endocarditis. Neurology evaluated you, no new recommendation at this point. Follow-up with neurology as prior. Continue with physical therapy at rehab facility. Take your medications as prescribed. Please make sure that you are able to get your medications today by calling your pharmacy before you leave the hospital so that your treatment continuity is not broken. Pending Studies at Discharge: Yes Stand-Alone Forms: My [facility] Skilled Items Patient informed of condition?: Yes DNR: No Discharge Level of Care: Acute rehab Communicable Disease: No Discharge Prognosis: Stable Lines: None Urinary Catheter: No Medications and DC Order Prescriptions: Continued torsemide 20 mg tablet 20 mg PO DAILY polyethylene glycol 3350 17 gram powder in packet 17 g PO DAILY PRN (Reason: Constipation) oxybutynin chloride 10 mg tablet extended release 24hr 10 mg PO DAILY aspirin 81 mg tablet,delayed release (DR/EC) 81 mg PO DAILY levothyroxine 75 mcg tablet 75 mcg PO DAILY potassium chloride 20 mEq tablet,ER particles/crystals 20 meq PO BID magnesium oxide 400 mg (241.3 mg magnesium) tablet 400 mg PO DAILY pantoprazole 40 mg tablet,delayed release (DR/EC) 40 mg PO DAILY nystatin 100,000 unit/gram cream 1 applic TOPICAL BID PRN (Reason: Rash) montelukast 10 mg tablet 10 mg PO DAILY metoprolol succinate 25 mg tablet extended release 24 hr 25 mg PO DAILY Lumigan 0.01 % drops 1 drp OPB HS fluticasone propion-salmeterol [Wixela Inhub] 250-50 mcg/dose Blister With Device 1 inh INHALATION BID B complex-vitamin C-folic acid 1 mg Tablet 1 tab PO DAILY azelastine 137 mcg (0.1 %) Mobile,Non-Aerosol 2 spray INTRANASAL HS Rx Instructions: administer into each nostril multivitamin with minerals Tablet 1 tab PO DAILY fluticasone propionate 50 mcg/actuation Mobile,Suspension 2 spray INTRANASAL DAILY Rx Instructions: administer into each nostril coenzyme Q10 100 mg Capsule 100 mg PO DAILY diclofenac sodium [Voltaren Arthritis Pain] 1 % Gel 2 g TOPICAL TID PRN (Reason: Pain) Rx Instructions: apply to single elbow, wrist or hand; for hand includes palm/fingers/back of hand guaifenesin [Mucinex] 600 mg Tablet Extended Release 12hr 600 mg PO Q12H PRN (Reason: Congestion) albuterol sulfate 90 mcg/actuation Aerosol Powdr Breath Activated 2 inh INHALATION Q4H PRN (Reason: Shortness Of Breath Or Wheezing) ketoconazole 2 % Cream 1 applic TOPICAL DAILY PRN (Reason: Rash) atorvastatin 40 mg Tablet 80 mg PO QAM Qty: 30 0RF vancomycin 1.5 gram recon soln 1.5 g IV Q24H fluticasone furoate-vilanterol [Breo Ellipta] 100-25 mcg/dose Blister With Device 1 inh INHALATION DAILY enoxaparin 40 mg/0.4 mL Syringe 40 mg SUBCUT DAILY vitamin B complex Tablet 1 tab PO DAILY oxybutynin chloride 5 mg Tablet Extended Release 24hr 10 mg PO DAILY Discharge Orders: Discharge Order (Routine); Ordered 10/29/25 Ordered By: Jair Lackey/Other Patient Handouts: Managing Type 2 Diabetes Admission Data Admit Date/Time: 10/28/25 16:18 Attending Provider: Jair Ivey Admit Provider: Gio Baltazar Primary Care Provider: Lilo Mai Other Providers: Emelia Robles; Vitaly Quach; Emelia Arias; Jake Narvaez; Carlos Eduardo Becerril; Hugo Wellington; Manuel Will; Lashaun Moore; Cyrus Crump; Clement Goncalves; Steve Altamirano; Mc Watts; Maribeth Levine; Manuel Pena; Robyn Ceballos; Yamilet Ryan; Rufino Sarmiento
--- NOTE | 2025-10-29 13:57 | Pharmacy Report ---
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 Admitted for acute confusion/foot numbness. Random level on admission 10.1 mcg/mL. Vancomycin continued 1500 mg q24H. This predicts achievement of target AUC/BECKIE. Dose continued Plan Vancomycin * Maintenance dose: 1500 mg IV every 24 hours * Regimen is predicted to achieve target AUC/BECKIE of 400-600 mg/L.hr * Obtain level weekly or with significant renal function changes Pharmacy will continue to follow and will adjust dose/frequency as necessary. Thank you. Pharmacy has transitioned to AUC monitoring for vancomycin. AUC/BECKIE is the preferred PK/PD target and is associated with decreased risk of nephrotoxicity compared to traditional trough targets.
== END 2025-10-29 15:01 ==
LOC: 4W 13:28 → ED 13:28 → SUATTDRO 16:18 → 4W 19:04

== ENCOUNTER 2025-11-10 19:04 | Inpatient (IN) ==
--- NOTE | 2025-11-10 19:21 | Emergency Department Note ---
Impression & Plan VERNA (acute kidney injury), Lethargy, Encephalopathy, Weakness, CHI (closed head injury), Fall ED Provider Note NAME: ERNIE WELLER AGE: 85 SEX: F : 1940 ARRIVES VIA: Ambulance INFORMANT: Patient, son, EMS/nursing report ED PROVIDER(S): Rudi Cummins MD CHIEF COMPLAINT: Lethargy MEDICAL DECISION MAKING: Patient presents with the above from her residence [facility] where she recently moved into today. IV was established and blood work was obtained. Patient did have a small area of bruising to the abdomen likely consistent with subcu injections. Patient without abdominal pain on exam. Patient's blood work reassuring at this time. After further discussion with the patient's son who did present he reports that she fell striking her head. She did have an abrasion to the forehead although there is no initial report and the patient did not report falling. CT of the head was ordered. Patient with a white count of 10.8. Patient with a hemoglobin 11.2 with a normal platelet count kidney function with a creatinine 1.4. Blood sugar 176. Patient's CT head does not show evidence of obvious ICH. Chest x-ray does not show evidence of obvious pneumonia. Son believes that she needs assisted care. I did speak with case management who states that given the hour and day the week unable to accomplish this at this time at [facility]. Patient was admitted to the medicine service by Dr. Arreola. Discussion w/ other healthcare providers: Dr. Arreola inpatient medicine service Prior /Outside records reviewed: I reviewed part of a discharge summary from October 29. Patient with a history of diabetes hypertension hypothyroidism dyslipidemia sleep apnea asthma A-fib CKD CHF CAD GERD presented due to concern for strokelike symptoms. Patient currently is being treated for infective endocarditis on IV vancomycin. Patient has been on IV vancomycin for Staph epidermidis bacteremia and was also treated for ESBL E. coli UTI during hospitalization 4 weeks prior to this discharge. Reviewed the patient's prior discharge history and physical exam reports IV vancomycin to be continued until November 09. Differential diagnosis: Infection, dehydration, metabolic abnormality, hypo/hyperglycemia, electrolyte imbalance, anemia, UTI, pneumonia, thyroid dysfunction among others were considered. Diagnostics, as interpreted by me: ECG: Normal sinus rhythm, rate of 68, normal intervals, normal axis no ST elevations. T wave version in lead III as well as V2. Cardiac monitoring: An order was placed for continuous cardiac monitoring. The monitor shows a rate of 62 with sinus rhythm. Patient was placed on pulse oximetry Medical decision rules: None Imaging studies: I informally interpreted the patient's CT head does not show obvious ICH with formal report to follow. HPI: Patient presents due to concern for increasing lethargy. Patient reportedly moved in to [facility] today and was noted to be lethargic and referred here. Patient was here for recent stroke and was on IV antibiotics that per review of the records would have been stopped yesterday. Patient states that she does complain of some right ear pain as well as some right-sided neck pain. No falls or trauma. Patient denies any abdominal pain no reported vomiting or diarrhea. Poor appetite. No BSG checked prior to arrival. The patient does not complain of any cough or fever. Additional history obtained from the son who reports the patient did have a fall last night and struck her head. PAST MEDICAL HISTORY: See Below PAST SURGICAL HISTORY: See Below SOCIAL HISTORY: See Below HOME MEDICATIONS: See Below ALLERGIES: See Below VITALS: See Below PHYSICAL EXAMINATION: GENERAL: NAD, non-toxic. Wearing glasses. EYE EXAM: Normal conjunctiva. PERRL, no anisocoria and EOM's grossly intact w/o pain. Ears: Ears: Right TM unable to visualize, status post sermon and disimpaction TM clear without effusion. Good light reflex. No evidence of erythema to the EAC. OROPHARYNX: Moist mucus membranes, grossly normal dentition. NECK: Trachea midline, no stridor. Bandage over the right side of the neck with no overlying skin changes been removed. No carotid bruits appreciated. LUNGS: Clear to auscultation. Normal chest wall mechanics. HEART: NSR, no MRG. ABDOMEN: Abdomen soft, non-tender, no masses, no rebound or guarding. BACK: No CVA TTP. SKIN: Small area of bruising of the abdomen. UPPER EXTREMITIES: Upper extremities are grossly normal. LOWER EXTREMITIES: Grossly normal, no edema. NEURO EXAM: Awake and alert, follows commands, no obvious facial asymmetry, normal speech, moves all 4 extremities, but with 4/5 strength of left upper extremity weakness when compared to the right. Symmetric bilateral lower extremity weakness. No sensory deficits. 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 Staphylococcus epidermidis bacteremia Elevated troponin (Acute) Acute UTI (Acute) Acute alteration in mental status (Acute) Acute ischemic stroke Stroke-like symptoms Leukocytosis (Acute) Right shoulder pain (Acute) Ambulatory dysfunction (Acute) Weakness (Acute) Confusion (Acute) Right knee pain Difficulty speaking Dyslipidemia, goal LDL below 70 ASCVD (arteriosclerotic cardiovascular disease) History of cardioembolic cerebrovascular accident (CVA) (Acute) CHI (closed head injury) (Acute) Ambulatory dysfunction (Acute) Fall (Acute) History of CVA (cerebrovascular accident) Diabetes mellitus type 2, diet-controlled CHF (congestive heart failure) Confusion (Acute) Weakness (Acute) Hypertension (Acute) Hypertensive urgency Cervical strain, acute (Acute) Head injury (Acute) Drug-induced sinus bradycardia Hiatal hernia with GERD Vasovagal syncope Acute hypoxemic respiratory failure Hypomagnesemia (Acute) Vomiting (Acute) Chest pain (Acute) Syncope (Acute) Hypomagnesemia (Acute) Stroke-like symptoms (Acute) Nausea & vomiting (Acute) Arthralgia Elevated troponin Near syncope Ambulatory dysfunction (Acute) Chronic pain in left foot (Acute) Hypomagnesemia (Acute) Generalized weakness (Acute) Osteoarthritis of ankle, left Left ankle swelling (Acute) Hypomagnesemia (Acute) Syncope and collapse (Acute) Right rotator cuff tear Right knee DJD Hypokalemia Anemia (Acute) Postoperative bleeding from mouth (Acute) Chronic anticoagulation (Acute) Near syncope DVT prophylaxis Postoperative bleeding from mouth History of cataract extraction (Chronic) HTN (hypertension) (Chronic) HLD (hyperlipidemia) (Chronic) DEMARIO (obstructive sleep apnea) (Chronic) CKD (chronic kidney disease) stage 3, GFR 30-59 ml/min (Chronic) GERD (gastroesophageal reflux disease) (Chronic) History of placement of stent in LAD coronary artery (Chronic) Stented coronary artery (Chronic) Medical History Acute on chronic heart failure with preserved ejection fraction Embolic stroke HTN (hypertension) Hypothyroidism Sleep apnea Primary open angle glaucoma Asthma PAF (paroxysmal atrial fibrillation) T2DM (type 2 diabetes mellitus) Orthostatic syncope CAD (coronary artery disease) stent in 1999 Fall Hyponatremia Surgical History History of arthroscopic knee surgery History of appendectomy History of tonsillectomy History of rotator cuff surgery Family History Father CHF (congestive heart failure) Mother Cancer Social History Smoking Status: Former smoker Second Hand Exposure: No; Do You Dip or Chew Tobacco: No; Hx Alcohol Use: No Hx Substance Use: No Preferred Language: [place] Communication Ability: Effective Shipping & Receiving Lead Required: No Beliefs That Will Affect Care: None marital status: Life Partner Current Living Situation: Personal Care Facility Current Living Situation Comment: [facility] Other Information That Helps Us Care for You: No Feels Safe at Home: Yes Safety Concerns: Feels Safe At This Time Assistive Devices: Glasses and Walker Allergies Allergies Allergy/AdvReac Type Severity Reaction Status Date / Time paroxetine Allergy Severe ANAPHYLAXIS Verified 11/10/25 22:12 mold Allergy Intermediate asthma Verified 08/20/25 21:05 symptoms pollen extracts Allergy Intermediate asthma Verified 08/20/25 21:05 symptoms Penicillins Allergy Mild BLISTERED Verified 11/10/25 22:12 HANDS grapefruit Allergy Unknown POSITIVE Verified 11/10/25 22:12 ALLERGY TEST/BRONCHITIS vasquez AdvReac Intermediate gas and Verified 11/10/25 22:12 bloating with consuption of green or kidneys beans broccoli AdvReac Intermediate GAS Verified 11/10/25 22:12 cabbage AdvReac Intermediate "Brassica Verified 11/10/25 22:12 oleracea" -- gas/bloating cauliflower AdvReac Intermediate GAS Verified 11/10/25 22:12 crab AdvReac Intermediate diarrhea Verified 11/10/25 22:12 green vasquez AdvReac Intermediate GAS/BLOATIN Verified 11/10/25 22:12 G peanut AdvReac Intermediate GAS/BLOATIN Verified 11/10/25 22:12 G peas AdvReac Intermediate GAS/BLOATIN Verified 11/10/25 22:12 G orange AdvReac Unknown POSITIVE Verified 11/10/25 22:12 ALLERGY TEST/BRONCHITIS Home Meds Home Medications Medication Instructions Recorded Confirmed albuterol sulfate 90 mcg/actuation 2 inh inhalation Q4H PRN Wheezing 09/26/25 11/10/25 breath activated powder inhaler aspirin 81 mg tablet,delayed 81 mg PO DAILY 09/26/25 11/10/25 release azelastine 137 mcg (0.1 %) nasal 2 spray intranasal HS 09/26/25 11/10/25 spray bimatoprost 0.01 % eye drops 1 drp OPB QPM 09/26/25 11/10/25 (Lumigan) diclofenac sodium 1 % topical gel 2 g topical TID PRN Pain 09/26/25 11/10/25 (Voltaren Arthritis Pain) fluticasone 250 mcg-salmeterol 50 1 inh inhalation BID 09/26/25 11/10/25 mcg/dose blistr powdr for inhalation (Wixela Inhub) fluticasone propionate 50 2 spray intranasal DAILY 09/26/25 11/10/25 mcg/actuation nasal spray,suspension levothyroxine 75 mcg tablet 75 mcg PO DAILYBB 09/26/25 11/10/25 magnesium oxide 400 mg (241.3 mg 400 mg PO DAILY 09/26/25 11/10/25 magnesium) tablet metoprolol succinate 25 mg 25 mg PO DAILY 09/26/25 11/10/25 tablet,extended release 24 hr montelukast 10 mg tablet 10 mg PO DAILY 09/26/25 11/10/25 oxybutynin chloride 10 mg 10 mg PO DAILY 09/26/25 11/10/25 tablet,extended release 24 hr pantoprazole 40 mg tablet,delayed 40 mg PO DAILYBB 09/26/25 11/10/25 release potassium chloride 20 mEq 20 meq PO BID 09/26/25 11/10/25 tablet,extended release(part/cryst) torsemide 20 mg tablet 20 mg PO DAILY 09/26/25 11/10/25 atorvastatin 80 mg tablet 80 mg PO DAILY 11/10/25 11/10/25 diphenhydramine HCl 25 mg capsule 25 mg PO DAILY 11/10/25 11/10/25 hydrocortisone 1 % topical ointment 1 applic topical Q6 PRN Itching 11/10/25 11/10/25 losartan 50 mg tablet 50 mg PO DAILY 11/10/25 11/10/25 simethicone 80 mg chewable tablet 40 mg PO BID 11/10/25 11/10/25 vitamin B complex 1 tab PO DAILY 11/10/25 11/10/25 Results & Data (ED) Vital Signs Vital Signs - 24 hr 11/10/25 18:58 11/10/25 18:58 11/10/25 18:58 Temperature 36.4 C 36.4 C Temperature Source Oral Oral Pulse Rate 73 Pulse Rate [Right Brachial] 73 Pulse Rate from SpO2 Sensor Pulse Rhythm Regular Pulse Rhythm [Right Brachial] Regular Pulse Strength Normal Pulse Strength [Right Brachial] Normal Respiratory Rate 12 12 Respiratory Effort / Characteristics Non-Labored Non-Labored Respiratory Depth Normal Normal Respiratory Pattern Regular Regular Blood Pressure 178/69 H Blood Pressure [Right Arm] 178/69 H Blood Pressure Mean 105 Blood Pressure Mean [Right Arm] 105 Blood Pressure Position Lying Blood Pressure Position [Right Arm] Lying Pulse Oximetry 100 100 Oxygen Delivery Method Room Air Room Air Room Air Sepsis Recent Fever Within 48 Hours No Sepsis New/Unexplained Change in Mental Status N/A Sepsis Action Taken by Nursing No Action Required 11/10/25 19:15 11/10/25 19:30 11/10/25 19:38 Temperature Temperature Source Pulse Rate 77 72 Pulse Rate [Right Brachial] Pulse Rate from SpO2 Sensor 72 Pulse Rhythm Pulse Rhythm [Right Brachial] Pulse Strength Pulse Strength [Right Brachial] Respiratory Rate 23 Respiratory Effort / Characteristics Respiratory Depth Respiratory Pattern Blood Pressure 128/60 Blood Pressure [Right Arm] Blood Pressure Mean 82 Blood Pressure Mean [Right Arm] Blood Pressure Position Blood Pressure Position [Right Arm] Pulse Oximetry 100 100 Oxygen Delivery Method Room Air Room Air Sepsis Recent Fever Within 48 Hours Sepsis New/Unexplained Change in Mental Status Sepsis Action Taken by Nursing 11/10/25 20:00 11/10/25 21:00 11/10/25 21:30 Temperature Temperature Source Pulse Rate 78 78 82 Pulse Rate [Right Brachial] Pulse Rate from SpO2 Sensor 79 72 82 Pulse Rhythm Pulse Rhythm [Right Brachial] Pulse Strength Pulse Strength [Right Brachial] Respiratory Rate 18 20 27 H Respiratory Effort / Characteristics Respiratory Depth Respiratory Pattern Blood Pressure 129/64 146/55 H 146/94 H Blood Pressure [Right Arm] Blood Pressure Mean 92 85 111 Blood Pressure Mean [Right Arm] Blood Pressure Position Blood Pressure Position [Right Arm] Pulse Oximetry 99 99 100 Oxygen Delivery Method Room Air Room Air Sepsis Recent Fever Within 48 Hours Sepsis New/Unexplained Change in Mental Status Sepsis Action Taken by Nursing 11/10/25 22:00 11/10/25 23:00 11/10/25 23:20 Temperature Temperature Source Pulse Rate 70 69 79 Pulse Rate [Right Brachial] Pulse Rate from SpO2 Sensor 68 Pulse Rhythm Pulse Rhythm [Right Brachial] Pulse Strength Pulse Strength [Right Brachial] Respiratory Rate 20 20 Respiratory Effort / Characteristics Respiratory Depth Respiratory Pattern Blood Pressure 138/81 151/76 H Blood Pressure [Right Arm] Blood Pressure Mean 100 98 Blood Pressure Mean [Right Arm] Blood Pressure Position Blood Pressure Position [Right Arm] Pulse Oximetry 100 99 Oxygen Delivery Method Room Air Room Air Sepsis Recent Fever Within 48 Hours Sepsis New/Unexplained Change in Mental Status Sepsis Action Taken by Jail Medications Current Medication List: was personally reviewed by me Laboratory Data Attestation: I reviewed the patient's lab results. 11/11/25 05:31 11/11/25 05:31 Lab Results 11/10/25 11/10/25 Range/Units 19:17 19:34 WBC 10.87 H (4.8-10.8) K/ul RBC 3.93 L (4.20-5.40) M/uL Hgb 11.2 L (12.0-16.0) g/dL Hct 34.8 L (37.0-47.0) % MCV 88.5 (80.0-100.0) fL MCH 28.5 (25.0-34.0) pg MCHC 32.2 (32.0-36.0) g/dL RDW Std Deviation 48.7 H (36.4-46.3) fL RDW Coeff of Stoney 15.0 H (11.5-14.5) % Plt Count 360 (130-400) K/uL MPV 10.8 (9.4-12.4) fL Immature Gran % (Auto) 0.5 % Neut % (Auto) 76.2 % Lymph % (Auto) 11.5 % [place] % (Auto) 6.4 % Eos % (Auto) 5.2 % Baso % (Auto) 0.2 % Neut # (Auto) 8.28 H (1.40-6.50) K/uL Lymph # (Auto) 1.25 (1.20-3.40) K/uL [place] # (Auto) 0.70 H (0.11-0.59) K/uL Eos # (Auto) 0.57 H (0.00-0.50) K/uL Baso # (Auto) 0.02 (0.00-0.20) K/uL Immature Gran # (Auto) 0.05 (0.01-0.20) K/uL PT 11.5 (9.0-12.0) Seconds INR 1.1 (0.9-1.1) APTT 25 (21-31) Seconds PTT Ratio 0.9 Sodium 137 (136-145) mmol/L Potassium 3.7 (3.5-5.1) mmol/L Chloride 103 (98-107) mmol/L Carbon Dioxide 23 (21-32) mmol/L Anion Gap 11 (3-11) BUN 39 H (6-23) mg/dl Creatinine 1.43 H (0.6-1.2) mg/dl Est Cr Clr Drug Dosing 24.6 ml/min eGFR 35.72 BUN/Creatinine Ratio 27.3 H (10-20) Glucose 176 H (70-99(Fasting)) mg/dl POC Glucose 157 H (70-99) mg/dl Calcium 9.4 (8.6-10.3) mg/dl Magnesium 1.4 L (1.7-2.4) mg/dl Total Bilirubin 0.5 (0.2-1.0) mg/dl AST 21 (13-39) U/L ALT 17 (7-52) U/L Alkaline Phosphatase 80 (34-104) U/L Total Creatine Kinase 133 (26-192) U/L Total Protein 7.4 (6.0-8.3) gm/dl Albumin 3.6 (3.4-5.0) gm/dl Globulin 3.8 (2.5-4.0) gm/dl Albumin/Globulin Ratio 0.9 (0.9-2) Administered Medications Aspirin (Aspirin 81 Mg Ectab) 81 mg PO DAILY [facility] Stop: 12/11/25 08:59 Last Admin: 11/11/25 09:15 Dose: 81 mg Documented By: tootie Atorvastatin Calcium (Atorvastatin 40 Mg Tab) 80 mg PO DAILY [facility] Stop: 12/11/25 08:59 Last Admin: 11/11/25 09:16 Dose: 80 mg Documented By: tootie Fluticasone Propionate (Fluticasone Propionate Na Spr 16 Gm Btl) 2 sprays NA DAILY [facility] Stop: 12/11/25 08:59 Last Admin: 11/11/25 09:16 Dose: 2 sprays Documented By: tootie Fluticasone/Vilanterol (Fluticasone/Vilanterol 100/25mcg 14 Puffs/Inhaler) 1 puffs INH DAILY [facility] Stop: 12/11/25 08:59 Last Admin: 11/11/25 09:17 Dose: 1 puffs Documented By: tootie Insulin Aspart (Insulin Aspart Per Unit Charge) 0 units SC ACHS [facility] Stop: 12/11/25 01:36 Last Admin: 11/11/25 14:46 Dose: Not Given Documented By: Admin: 11/11/25 09:37 Dose: Not Given Documented By: tootie Admin: 11/11/25 02:17 Dose: Not Given Documented By: RAMANDEEP Levothyroxine Sodium (Levothyroxine Sodium 75 Mcg Tablet) 75 mcg PO DAILYBB [facility] Stop: 12/11/25 06:29 Last Admin: 11/11/25 06:08 Dose: 75 mcg Documented By: VIRIDIANA Metoprolol Succinate (Metoprolol Succ 25mg Ext Rel Tab) 25 mg PO DAILY [facility] Stop: 12/11/25 08:59 Last Admin: 11/11/25 09:17 Dose: 25 mg Documented By: tootie Montelukast Sodium (Montelukast Sodium 10 Mg Tablet) 10 mg PO DAILY [facility] Stop: 12/11/25 08:59 Last Admin: 11/11/25 09:18 Dose: 10 mg Documented By: tootie Oxybutynin Chloride (Oxybutynin Chloride Xl 5 Mg Tabcr) 10 mg PO DAILY [facility] Stop: 12/11/25 08:59 Last Admin: 11/11/25 09:18 Dose: 10 mg Documented By: tootie Pantoprazole Sodium (Pantoprazole 40 Mg Tab) 40 mg PO DAILYBB [facility] Stop: 12/11/25 06:29 Last Admin: 11/11/25 06:08 Dose: 40 mg Documented By: VIRIDIANA Simethicone (Simethicone 80 Mg Chew) 40 mg PO BID [facility] Stop: 12/11/25 08:59 Last Admin: 11/11/25 09:18 Dose: 40 mg Documented By: tootie Vitamin B Complex (Vitamin B Complex Tab) 1 tab PO DAILY [facility] Stop: 12/11/25 08:59 Last Admin: 11/11/25 09:16 Dose: 1 tab Documented By: tootie Discontinued Medications Sodium Chloride (Nss) 500 mls @ 999 mls/hr IV .Q31M [facility] Stop: 11/10/25 20:15 Last Infusion: 11/10/25 21:10 Dose: Infused Documented By: Admin: 11/10/25 20:27 Dose: 999 mls/hr Documented By: MAYNOR Sodium Chloride (Nss) 500 mls @ 999 mls/hr IV .Q31M ONE Stop: 11/10/25 21:45 Last Infusion: 11/10/25 22:18 Dose: Infused Documented By: Admin: 11/10/25 21:35 Dose: 999 mls/hr Documented By: MIGUEL Acetaminophen (Ofirmev) 1,000 mg in 100 mls @ 400 mls/hr IV NOW STA Stop: 11/10/25 21:48 Last Infusion: 11/10/25 21:58 Dose: Infused Documented By: Admin: 11/10/25 21:38 Dose: 400 mls/hr Documented By: MIGUEL Potassium Chloride/Sodium Chloride (Normal Saline W/20 Meq Kcl) 20 meq in 1,000 mls @ 75 mls/hr IV .[id number] STA Stop: 11/11/25 11:45 Last Infusion: 11/11/25 14:41 Dose: Infused Documented By: Admin: 11/10/25 22:52 Dose: 75 mls/hr Documented By: MAYNOR Magnesium Sulfate/Dextrose (Magnesium Sulfate / D5w) 1 gm in 100 mls @ 50 mls/hr IV Q2H [facility] Stop: 11/11/25 02:44 Last Infusion: 11/11/25 03:46 Dose: Infused Documented By: Admin: 11/11/25 01:46 Dose: 50 mls/hr Documented By: Infusion: 11/11/25 00:52 Dose: Infused Documented By: Admin: 11/10/25 22:52 Dose: 50 mls/hr Documented By: MAYNOR Loratadine (Loratadine 10 Mg Tab) 10 mg PO NOW ONE Stop: 11/11/25 02:17 Last Admin: 11/11/25 03:57 Dose: 10 mg Documented By: RAMANDEEP Ondansetron HCl (Ondansetron Inj 2 Mg/Ml 2 Ml Vial) 4 mg IV NOW STA Stop: 11/10/25 21:16 Last Admin: 11/10/25 21:35 Dose: 4 mg Documented By: Admin: 11/10/25 21:35 Dose: 4 mg Documented By: MIGUEL Tramadol HCl (Tramadol Hcl 50 Mg Tablet) 25 mg PO NOW STA Stop: 11/10/25 22:37 Last Admin: 11/10/25 22:52 Dose: 25 mg Documented By: MAYNOR Imaging Data Radiologist's Impression: Chest X-Ray 11/10/25 19:38 Chest radiograph, one view History: S Comparison: None Findings: Single AP view of the chest performed. No focal consolidation or pleural effusion. No pneumothorax. The cardiomediastinal silhouette is within normal limits. Normal pulmonary vascularity. No evidence for lymphadenopathy. No visualized bony or soft tissue abnormality. Impression: Normal chest radiograph Electronically signed by Goyo Ceballos 11-10-2025 9:[address] 11/10/25 21:32 Exam(s): CT HEAD Without Contrast EXAM: CT Head Without Intravenous Contrast CLINICAL HISTORY: Reason for exam: fall, CHI. TECHNIQUE: Axial computed tomography images of the head/brain without intravenous contrast. CTDI is 38.43 mGy and DLP is 625.8 mGy-cm. Automated exposure control was utilized for the study. A dose lowering technique was utilized adhering to the principles of ALARA. COMPARISON: None FINDINGS: Brain: No acute infarct or hemorrhage identified. No extra-axial fluid collection. No mass effect or midline shift. Scattered areas of hypoattenuation in the supratentorial white matter likely represent chronic small vessel ischemic changes. Small remote lacunar infarct in the left basal vein. Ventricles and sulci: Prominence of the ventricles and sulci is likely secondary to cerebral volume loss. Bones: Mild hyperostosis frontalis interna. No bony lesion or acute fracture. Subcutaneous tissues: Normal. Sinuses: Normal. No air-fluid levels or mucosal thickening. Mastoid air cells: Normal. Orbits: Lens implants. Other: Atherosclerotic calcifications in the intracranial vasculature. IMPRESSION: 1. No acute intracranial abnormality. 2. Chronic small vessel ischemic changes and cerebral volume loss. Electronically signed by: Jessee Gregory M.D. 11/10/25 23:00 PM Discharge Plan Visit Data Chief Complaint: Weakness Stated Complaint: Lethargic, Weakness ED Provider: Rudi Cummins Discharge Problem: VERNA (acute kidney injury), Lethargy, Encephalopathy, Weakness, CHI (closed head injury), Fall Patient Disposition: Admitted As Inpatient Condition: Good Discharge Instructions Interventions: ED Discharge Assessment Last Done: 11/11/25 00:59 Discharge Problem: Encephalopathy Qualifiers: Encephalopathy type: unspecified encephalopathy Qualified Code(s): G93.40 - Encephalopathy, unspecified CHI (closed head injury) Qualifiers: Encounter type: initial encounter Qualified Code(s): S09.90XA - Unspecified injury of head, initial encounter Fall Qualifiers: Encounter type: initial encounter Qualified Code(s): W19.XXXA - Unspecified fall, initial encounter
[2025-11-10 19:59] LABS: Hematocrit (blood only) 34.8 % (37.0-47.0); Hemoglobin 11.2 g/dL (12.0-16.0); Immature Granulocytes # (auto) 0.05 K/uL (0.01-0.20); Immature Granulocytes % (auto) 0.5 %; Mean Corpuscular Hemoglobin 28.5 pg (25.0-34.0); Mean Corpuscular Volume 88.5 fL (80.0-100.0); Platelet Count 360 K/uL (130-400); RDW Standard Deviation 48.7 fL (36.4-46.3); Red Blood Count 3.93 M/uL (4.20-5.40); White Blood Count 10.87 K/ul (4.8-10.8)
[2025-11-10 20:16] LABS: Alanine Aminotransferase 17.0 U/L (7-52); Albumin Globulin Ratio 0.9 (0.9-2); Albumin Level 3.6 gm/dl (3.4-5.0); Alkaline Phosphatase 80.0 U/L (34-104); Anion Gap 11.0 (3-11); Bilirubin,Total 0.5 mg/dl (0.2-1.0); Blood Urea Nitrogen 39.0 mg/dl (6-23); Calcium 9.4 mg/dl (8.6-10.3); Carbon Dioxide 23.0 mmol/L (21-32); Chloride 103.0 mmol/L (98-107); Creatinine Clr Calc Pharmacy 24.6 ml/min; Globulin 3.8 gm/dl (2.5-4.0); Glucose 176.0 mg/dl (70-99(Fasting)); Potassium 3.7 mmol/L (3.5-5.1); Sodium 137.0 mmol/L (136-145); Total Protein 7.4 gm/dl (6.0-8.3)
[2025-11-10] MEDS: SODIUM CHLORIDE 0.9% 500 ML IV SCH (20:27)
[2025-11-10 20:38] LABS: INR 1.1 (0.9-1.1); Partial Thromboplastin Time 25 Seconds (21-31); Prothrombin Time 11.5 Seconds (9.0-12.0)
--- NOTE | 2025-11-10 21:32 | XRay Report ---
Chest radiograph, one view History: S Comparison: None Findings: Single AP view of the chest performed. No focal consolidation or pleural effusion. No pneumothorax. The cardiomediastinal silhouette is within normal limits. Normal pulmonary vascularity. No evidence for lymphadenopathy. No visualized bony or soft tissue abnormality. Impression: Normal chest radiograph Electronically signed by Goyo Ceballos 11-10-2025 9:32 PM
[2025-11-10] MEDS: SODIUM CHLORIDE 0.9% 500 ML IV ONE (21:35)
[2025-11-10] MEDS: ONDANSETRON INJ 2 MG/ML 2 ML VIAL IV STA (21:35)
[2025-11-10] MEDS: ACETAMINOPHEN 1,000 MG/100 ML VIAL IV STA (21:38)
[2025-11-10 22:43] LABS: Magnesium 1.4 mg/dl (1.7-2.4)
[2025-11-10] MEDS: NSS + 20MEQ KCL 20 MEQ/1,000 ML BAG IV STA (22:52)
[2025-11-10] MEDS: MAGNESIUM SULFATE / D5W 1 GM/100 ML BAG IV SCH (22:52)
--- NOTE | 2025-11-10 23:00 | CT Scan Report ---
Exam(s): CT HEAD Without Contrast EXAM: CT Head Without Intravenous Contrast CLINICAL HISTORY: Reason for exam: fall, CHI. TECHNIQUE: Axial computed tomography images of the head/brain without intravenous contrast. CTDI is 38.43 mGy and DLP is 625.8 mGy-cm. Automated exposure control was utilized for the study. A dose lowering technique was utilized adhering to the principles of ALARA. COMPARISON: None FINDINGS: Brain: No acute infarct or hemorrhage identified. No extra-axial fluid collection. No mass effect or midline shift. Scattered areas of hypoattenuation in the supratentorial white matter likely represent chronic small vessel ischemic changes. Small remote lacunar infarct in the left basal vein. Ventricles and sulci: Prominence of the ventricles and sulci is likely secondary to cerebral volume loss. Bones: Mild hyperostosis frontalis interna. No bony lesion or acute fracture. Subcutaneous tissues: Normal. Sinuses: Normal. No air-fluid levels or mucosal thickening. Mastoid air cells: Normal. Orbits: Lens implants. Other: Atherosclerotic calcifications in the intracranial vasculature. IMPRESSION: 1. No acute intracranial abnormality. 2. Chronic small vessel ischemic changes and cerebral volume loss. Electronically signed by: Jessee Gregory M.D. 11/10/25 23:00 PM
--- NOTE | 2025-11-10 23:26 | History & Physical Report ---
Date of Service November 10, 2025 Assessment & Plan (1) Encephalopathy: Plan: Assessment and plan below following discussion of case with ED provider and reviewing patient history/pertinent normal/abnormal diagnostic test results. 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 hx CVA hyperlipidemia, on statin Rx DEMARIO on BiPAP pulmonary hypertension history PE related to OCP use DM2 on oral medications, well-controlled as of recent hemoglobin A1c of 6.3 this month hypothyroidism, euthyroid as of recent TSH in 5 chronic anemia, hemoglobin at baseline RLE swelling rule out DVT Traumatic right hip pain rule out fracture history ESBL UTI Admit to med/tele Titrate home beta-monico if heart rate allows Baseline UA, monitor creatinine response to IVF, renal ultrasound if felt improvement in kidney function Hold losartan and home diuretic Rx until creatinine back to baseline Plain x-ray right hip RLE venous Dopplers rule out DVT ISS BG goal 1 10-1 40, carb count coverage PT OT eval, patient may require placement at an appropriate section of [facility] she given recurrent falls. DVT prophylaxis. SCDs Re: Multiple contusions from recent fall Full code Patient son requesting updates providers. Mr. Titus Palacios, contact #[phone]. Text document was generated using [employer] voice recognition software. It may contain grammatical or spelling errors. Kindly contact undersigned for clarification of any documentation item in question. History of Present Illness Chief Complaint: Recurrent falls, confusion Primary Care Provider: Lilo Mai MD History obtained from patient, family, and records. Limited history from patient secondary to disorientation. 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 Three [facility] admissions since July,. Last confinement 2 weeks ago for CVA recrudescence presenting as transient confusion and left leg numbness. Patient discharged to [facility] rehab facility before transitioning to [facility] [place] yesterday. Recurrent falls since admission at [facility] yesterday. Patient denies chest pain, cough, SOB, syncope. Patient felt unstable on her feet. One fall resulting in head trauma. No LOC. Patient seems more confused than usual this morning as per son. Patient complaining of right hip pain. Right leg seems more swollen than usual as per son. Achy headache symptoms. Patient brought to ER for evaluation. SBP 170s upon arrival at the ER. 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 Allergies Allergy/AdvReac Type Severity Reaction Status Date / Time paroxetine Allergy Severe ANAPHYLAXIS Verified 11/10/25 22:12 mold Allergy Intermediate asthma Verified 08/20/25 21:05 symptoms pollen extracts Allergy Intermediate asthma Verified 08/20/25 21:05 symptoms Penicillins Allergy Mild BLISTERED Verified 11/10/25 22:12 HANDS grapefruit Allergy Unknown POSITIVE Verified 11/10/25 22:12 ALLERGY TEST/BRONCHITIS vasquez AdvReac Intermediate gas and Verified 11/10/25 22:12 bloating with consuption of green or kidneys beans broccoli AdvReac Intermediate GAS Verified 11/10/25 22:12 cabbage AdvReac Intermediate "Brassica Verified 11/10/25 22:12 oleracea" -- gas/bloating cauliflower AdvReac Intermediate GAS Verified 11/10/25 22:12 crab AdvReac Intermediate diarrhea Verified 11/10/25 22:12 green vasquez AdvReac Intermediate GAS/BLOATIN Verified 11/10/25 22:12 G peanut AdvReac Intermediate GAS/BLOATIN Verified 11/10/25 22:12 G peas AdvReac Intermediate GAS/BLOATIN Verified 11/10/25 22:12 G orange AdvReac Unknown POSITIVE Verified 11/10/25 22:12 ALLERGY TEST/BRONCHITIS Home Medications Medication Instructions Recorded Confirmed Type albuterol sulfate 90 mcg/actuation 2 inh inhalation Q4H PRN Wheezing 09/26/25 11/10/25 History breath activated powder inhaler aspirin 81 mg tablet,delayed 81 mg PO DAILY 09/26/25 11/10/25 History release azelastine 137 mcg (0.1 %) nasal 2 spray intranasal HS 09/26/25 11/10/25 History spray bimatoprost 0.01 % eye drops 1 drp OPB QPM 09/26/25 11/10/25 History (Lumigan) diclofenac sodium 1 % topical gel 2 g topical TID PRN Pain 09/26/25 11/10/25 History (Voltaren Arthritis Pain) fluticasone 250 mcg-salmeterol 50 1 inh inhalation BID 09/26/25 11/10/25 History mcg/dose blistr powdr for inhalation (Wixela Inhub) fluticasone propionate 50 2 spray intranasal DAILY 09/26/25 11/10/25 History mcg/actuation nasal spray,suspension levothyroxine 75 mcg tablet 75 mcg PO DAILYBB 09/26/25 11/10/25 History magnesium oxide 400 mg (241.3 mg 400 mg PO DAILY 09/26/25 11/10/25 History magnesium) tablet metoprolol succinate 25 mg 25 mg PO DAILY 09/26/25 11/10/25 History tablet,extended release 24 hr montelukast 10 mg tablet 10 mg PO DAILY 09/26/25 11/10/25 History oxybutynin chloride 10 mg 10 mg PO DAILY 09/26/25 11/10/25 History tablet,extended release 24 hr pantoprazole 40 mg tablet,delayed 40 mg PO DAILYBB 09/26/25 11/10/25 History release potassium chloride 20 mEq 20 meq PO BID 09/26/25 11/10/25 History tablet,extended release(part/cryst) torsemide 20 mg tablet 20 mg PO DAILY 09/26/25 11/10/25 History atorvastatin 80 mg tablet 80 mg PO DAILY 11/10/25 11/10/25 History diphenhydramine HCl 25 mg capsule 25 mg PO DAILY 11/10/25 11/10/25 History hydrocortisone 1 % topical ointment 1 applic topical Q6 PRN Itching 11/10/25 11/10/25 History losartan 50 mg tablet 50 mg PO DAILY 11/10/25 11/10/25 History simethicone 80 mg chewable tablet 40 mg PO BID 11/10/25 11/10/25 History vitamin B complex 1 tab PO DAILY 11/10/25 11/10/25 History Past Med/Surg History Problem List Encephalopathy Acute confusion (Acute) Left leg numbness (Acute) 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 Staphylococcus epidermidis bacteremia Elevated troponin (Acute) Acute UTI (Acute) Acute alteration in mental status (Acute) Acute ischemic stroke Stroke-like symptoms Leukocytosis (Acute) Right shoulder pain (Acute) Ambulatory dysfunction (Acute) Weakness (Acute) Confusion (Acute) Right knee pain Difficulty speaking Dyslipidemia, goal LDL below 70 ASCVD (arteriosclerotic cardiovascular disease) History of cardioembolic cerebrovascular accident (CVA) (Acute) CHI (closed head injury) (Acute) Ambulatory dysfunction (Acute) Fall (Acute) History of CVA (cerebrovascular accident) Diabetes mellitus type 2, diet-controlled CHF (congestive heart failure) Confusion (Acute) Weakness (Acute) Hypertension (Acute) Hypertensive urgency Cervical strain, acute (Acute) Head injury (Acute) Drug-induced sinus bradycardia Hiatal hernia with GERD Vasovagal syncope Acute hypoxemic respiratory failure Hypomagnesemia (Acute) Vomiting (Acute) Chest pain (Acute) Syncope (Acute) Hypomagnesemia (Acute) Stroke-like symptoms (Acute) Nausea & vomiting (Acute) Arthralgia Elevated troponin Near syncope Ambulatory dysfunction (Acute) Chronic pain in left foot (Acute) Hypomagnesemia (Acute) Generalized weakness (Acute) Osteoarthritis of ankle, left Left ankle swelling (Acute) Hypomagnesemia (Acute) Syncope and collapse (Acute) Right rotator cuff tear Right knee DJD Hypokalemia Anemia (Acute) Postoperative bleeding from mouth (Acute) Chronic anticoagulation (Acute) Near syncope DVT prophylaxis Postoperative bleeding from mouth History of cataract extraction (Chronic) HTN (hypertension) (Chronic) HLD (hyperlipidemia) (Chronic) DEMARIO (obstructive sleep apnea) (Chronic) CKD (chronic kidney disease) stage 3, GFR 30-59 ml/min (Chronic) GERD (gastroesophageal reflux disease) (Chronic) History of placement of stent in LAD coronary artery (Chronic) Stented coronary artery (Chronic) Medical History Acute on chronic heart failure with preserved ejection fraction Embolic stroke HTN (hypertension) Hypothyroidism Sleep apnea Primary open angle glaucoma Asthma PAF (paroxysmal atrial fibrillation) T2DM (type 2 diabetes mellitus) Orthostatic syncope CAD (coronary artery disease) stent in 1999 Fall Hyponatremia Surgical History History of arthroscopic knee surgery History of appendectomy History of tonsillectomy History of rotator cuff surgery Family History Father CHF (congestive heart failure) Mother Cancer Social History Smoking Status: Former smoker Second Hand Exposure: No; Do You Dip or Chew Tobacco: No; Hx Alcohol Use: No Hx Substance Use: No Preferred Language: Polish Communication Ability: Effective Fisher Line Required: No Beliefs That Will Affect Care: None marital status: Life Partner Current Living Situation: Personal Care Facility Current Living Situation Comment: [facility] Other Information That Helps Us Care for You: No Feels Safe at Home: Yes Safety Concerns: Feels Safe At This Time Assistive Devices: Glasses and Walker Review of Systems Review of Systems: Could not be reliably obtained secondary to disorientation Physical Exam Physical Exam: GENERAL: Disoriented, slightly uncomfortable, no respiratory distress SKIN: Pallor, warm HEENT: Contusion over forehead, pale palpebral conjunctivae, no ptosis, dry buccal mucosa NECK : Supple, no tenderness CHEST : Decreased breath sounds, no tenderness HEART : RRR, systolic murmur ABDOMEN: Some distention, nontender EXTREMITIES : RLE swelling, right hip tenderness, no other conspicuous deformities noted NEUROLOGIC : Disoriented, no facial asymmetry, episodic rest tremors RLE, gait and stance not assessed Results & Data Results & Data Vital Signs (Past 12 Hours) Vital Signs Temp Pulse Pulse Resp BP BP Pulse Ox 11/10/25 23:20 79 11/10/25 22:00 70 20 138/81 100 11/10/25 21:30 82 27 H 146/94 H 100 11/10/25 21:00 78 20 146/55 H 99 11/10/25 20:00 78 18 129/64 99 11/10/25 19:38 100 11/10/25 19:30 72 23 128/60 100 12/13/25 19:15 77 11/10/25 18:58 36.4 C 73 12 178/69 H 100 11/10/25 18:58 11/10/25 18:58 36.4 C 73 12 178/69 H 100 O2 Del Method 11/10/25 23:20 11/10/25 22:00 Room Air 11/10/25 21:30 11/10/25 21:00 Room Air 11/10/25 20:00 Room Air 11/10/25 19:38 Room Air 11/10/25 19:30 Room Air 11/10/25 19:15 11/10/25 18:58 Room Air 11/10/25 18:58 Room Air 11/10/25 18:58 Room Air Laboratory Results Laboratory Results WBC 10.87 K/ul (4.8-10.8) H 11/10/25 19:17 RBC 3.93 M/uL (4.20-5.40) L 11/10/25 19:17 Hgb 11.2 g/dL (12.0-16.0) L 11/10/25 19:17 Hct 34.8 % (37.0-47.0) L 11/10/25 19:17 MCV 88.5 fL (80.0-100.0) 11/10/25 19:17 MCH 28.5 pg (25.0-34.0) 11/10/25 19:17 MCHC 32.2 g/dL (32.0-36.0) 11/10/25 19:17 RDW Std Deviation 48.7 fL (36.4-46.3) H 11/10/25 19:17 RDW Coeff of Stoney 15.0 % (11.5-14.5) H 11/10/25 19:17 Plt Count 360 K/uL (130-400) 11/10/25 19:17 MPV 10.8 fL (9.4-12.4) 11/10/25 19:17 Immature Gran % (Auto) 0.5 % 11/10/25 19:17 Neut % (Auto) 76.2 % 11/10/25 19:17 Lymph % (Auto) 11.5 % 11/10/25 19:17 [place] % (Auto) 6.4 % 11/10/25 19:17 Eos % (Auto) 5.2 % 11/10/25 19:17 Baso % (Auto) 0.2 % 11/10/25 19:17 Neut # (Auto) 8.28 K/uL (1.40-6.50) H 11/10/25 19:17 Lymph # (Auto) 1.25 K/uL (1.20-3.40) 11/10/25 19:17 [place] # (Auto) 0.70 K/uL (0.11-0.59) H 11/10/25 19:17 Eos # (Auto) 0.57 K/uL (0.00-0.50) H 11/10/25 19:17 Baso # (Auto) 0.02 K/uL (0.00-0.20) 11/10/25 19:17 Immature Gran # (Auto) 0.05 K/uL (0.01-0.20) 11/10/25 19:17 PT 11.5 Seconds (9.0-12.0) 11/10/25 19:17 INR 1.1 (0.9-1.1) 11/10/25 19:17 APTT 25 Seconds (21-31) 11/10/25 19:17 PTT Ratio 0.9 11/10/25 19:17 Sodium 137 mmol/L (136-145) 11/10/25 19:17 Potassium 3.7 mmol/L (3.5-5.1) 11/10/25 19:17 Chloride 103 mmol/L (98-107) 11/10/25 19:17 Carbon Dioxide 23 mmol/L (21-32) 11/10/25 19:17 Anion Gap 11 (3-11) 11/10/25 19:17 BUN 39 mg/dl (6-23) H 11/10/25 19:17 Creatinine 1.43 mg/dl (0.6-1.2) H 11/10/25 19:17 Est Cr Clr Drug Dosing 24.6 ml/min 11/10/25 19:17 eGFR 35.72 11/10/25 19:17 BUN/Creatinine Ratio 27.3 (10-20) H 11/10/25 19:17 Glucose 176 mg/dl (70-99(Fasting)) H 11/10/25 19:17 POC Glucose 157 mg/dl (70-99) H 11/10/25 19:34 Calcium 9.4 mg/dl (8.6-10.3) 11/10/25 19:17 Magnesium 1.4 mg/dl (1.7-2.4) L 11/10/25 19:17 Total Bilirubin 0.5 mg/dl (0.2-1.0) 11/10/25 19:17 AST 21 U/L (13-39) 11/10/25 19:17 ALT 17 U/L (7-52) 11/10/25 19:17 Alkaline Phosphatase 80 U/L (34-104) 11/10/25 19:17 Total Protein 7.4 gm/dl (6.0-8.3) 11/10/25 19:17 Albumin 3.6 gm/dl (3.4-5.0) 11/10/25 19:17 Globulin 3.8 gm/dl (2.5-4.0) 11/10/25 19:17 Albumin/Globulin Ratio 0.9 (0.9-2) 11/10/25 19:17 Impressions Chest X-Ray 11/10/25 19:38 Chest radiograph, one view History: S Comparison: None Findings: Single AP view of the chest performed. No focal consolidation or pleural effusion. No pneumothorax. The cardiomediastinal silhouette is within normal limits. Normal pulmonary vascularity. No evidence for lymphadenopathy. No visualized bony or soft tissue abnormality. Impression: Normal chest radiograph Electronically signed by Goyo Ceballos 11-10-2025 9:[address] 11/10/25 21:32 Exam(s): CT HEAD Without Contrast EXAM: CT Head Without Intravenous Contrast CLINICAL HISTORY: Reason for exam: fall, CHI. TECHNIQUE: Axial computed tomography images of the head/brain without intravenous contrast. CTDI is 38.43 mGy and DLP is 625.8 mGy-cm. Automated exposure control was utilized for the study. A dose lowering technique was utilized adhering to the principles of ALARA. COMPARISON: None FINDINGS: Brain: No acute infarct or hemorrhage identified. No extra-axial fluid collection. No mass effect or midline shift. Scattered areas of hypoattenuation in the supratentorial white matter likely represent chronic small vessel ischemic changes. Small remote lacunar infarct in the left basal vein. Ventricles and sulci: Prominence of the ventricles and sulci is likely secondary to cerebral volume loss. Bones: Mild hyperostosis frontalis interna. No bony lesion or acute fracture. Subcutaneous tissues: Normal. Sinuses: Normal. No air-fluid levels or mucosal thickening. Mastoid air cells: Normal. Orbits: Lens implants. Other: Atherosclerotic calcifications in the intracranial vasculature. IMPRESSION: 1. No acute intracranial abnormality. 2. Chronic small vessel ischemic changes and cerebral volume loss. Electronically signed by: Jessee Gregory M.D. 11/10/25 23:00 PM Diagnostic Findings EKG as per my interpretation :Rate 70, NSR, LAD, LAFB, septal infarct, T wave abnormalities inferior and septal leads
[2025-11-10] MEDS ORDERED: DICLOFENAC SOD 1% GEL 100 GM TUBE EXT PRN (23:47)
[2025-11-10] MEDS ORDERED: PROMETHAZINE 6.25 MG/50.25 ML BAG IV PRN (23:49)
[2025-11-10 23:54] LABS: Creatine Kinase 133.0 U/L (26-192)
[2025-11-11] MEDS ORDERED: CARBOHYDRATES FOR HYPOGLYCEMIA PO PRN (01:37)
[2025-11-11] MEDS ORDERED: DEXTROSE 50% 50 ML SYRINGE IV PRN (01:37)
[2025-11-11] MEDS ORDERED: GLUCOSE 40% GEL 15 GM TUBE PO PRN (01:37)
[2025-11-11] MEDS ORDERED: GLUCAGON FOR INJ 1 MG VIAL SQ PRN (01:37)
[2025-11-11] MEDS ORDERED: GLUCOSE 10 TAB/TUBE PO PRN (01:37)
--- NOTE | 2025-11-11 01:57 | Ultrasound Report ---
EXAM: US venous doppler LE RT CLINICAL HISTORY: swelling prior 04/01/2025 TECHNIQUE: Grayscale ultrasound, with and without compression, and color Doppler spectral waveform analysis were performed of the deep veins of the right lower extremity from the level of the common femoral veins to the level of the popliteal veins. The posterior tibial and peroneal veins were also scanned. COMPARISON: 04/01/2025 22:18:37 CLINICAL PHARMACY SPECIALIST. FINDINGS: Right external iliac, common femoral veins, superficial and femoral veins and popliteal veins are compressible and opacify at color Doppler evaluation with no evidence of deep vein thrombosis. There is no evidence of DVT in the visualized portions of the posterior tibial and peroneal veins. Mild edema visualized at the right medial knee. A small simple fluid collection is seen at the medial inferior right knee measuring 1.3 x 0.9 x 0.9cm possibly representing a small joint effusion. IMPRESSION: 1. Negative for deep vein thrombosis. 2. Possible Mild knee joint effusion. 3. Mild edema visualized at right medial knee. Electronically signed by Kumar Whyte 11-11-2025 01:57 AM
--- NOTE | 2025-11-11 01:58 | XRay Report ---
EXAM: XR hip RT min 2V CLINICAL HISTORY: pain/fall TECHNIQUE: X-ray images of the right hip joints in AP and lateral projection. COMPARISON: No prior studies available for comparison. FINDINGS: Hip Joints: Mild arthritis changes involving right hip joint with mild reduced hip joint space and marginal osteophytes formation No fracture or dislocation seen. Symphysis Pubis: Symphysis pubis is normal and intact. No evidence of separation or widening. Soft Tissues: Visualized soft tissues are normal and unremarkable. No soft tissue swelling, calcifications, or masses. Additional Findings: No other significant abnormalities noted. IMPRESSION: Mild arthritis changes involving right hip joint with mild reduced hip joint space and marginal osteophytes formation No fracture or dislocation seen. Disclaimer: A subtle bone abnormality or fracture may not be readily apparent on X-rays, thus clinical correlation and further imaging including follow-up CT, MRI, or follow-up X-rays are advised as needed. Electronically signed by Kumar Whyte 11-11-2025 01:58 AM
[2025-11-11] MEDS: INSULIN ASPART PER UNIT CHARGE SC SCH (02:17)
[2025-11-11] MEDS: LORATADINE 10 MG TAB PO ONE (03:57)
[2025-11-11] MEDS: LEVOTHYROXINE SODIUM 75 MCG TABLET PO SCH (06:08)
[2025-11-11 06:19] LABS: Hematocrit (blood only) 30.5 % (37.0-47.0); Hemoglobin 9.9 g/dL (12.0-16.0); Immature Granulocytes # (auto) 0.04 K/uL (0.01-0.20); Immature Granulocytes % (auto) 0.4 %; Mean Corpuscular Hemoglobin 29.2 pg (25.0-34.0); Mean Corpuscular Volume 90.0 fL (80.0-100.0); Platelet Count 280 K/uL (130-400); RDW Standard Deviation 49.1 fL (36.4-46.3); Red Blood Count 3.39 M/uL (4.20-5.40); White Blood Count 9.48 K/ul (4.8-10.8)
[2025-11-11 06:48] LABS: Appearance Urine Slightly Cloudy (Clear); Glucose Urine UA Negative (Negative)
[2025-11-11 06:56] LABS: Anion Gap 7.0 (3-11); Blood Urea Nitrogen 31.0 mg/dl (6-23); Calcium 8.3 mg/dl (8.6-10.3); Carbon Dioxide 24.0 mmol/L (21-32); Chloride 110.0 mmol/L (98-107); Creatinine Clr Calc Pharmacy 33.7 ml/min; Glucose 107.0 mg/dl (70-99(Fasting)); Magnesium 2.0 mg/dl (1.7-2.4); Potassium 3.6 mmol/L (3.5-5.1); Sodium 141.0 mmol/L (136-145)
[2025-11-11 06:57] LABS: Epithelial Cell Urine 0-2 /hpf (0-2)
--- NOTE | 2025-11-11 08:16 | Hospitalist Progress Note ---
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 Recent complex admission under our service 09/26/25-10/03/25. Found to have cardioembolic right cerebellar stroke ISO Staphylococcus epidermidis bacteremia and infective endocarditis (mitral vegetation). Had repeat brain MRI on 10/02 due to acute onset of EUBANKS and confusion; was ultimately found to have new scattered punctate infarcts when compared to her prior MRI (likely thromboembolic source). Chemical AC and Plavix not started 2/2 risk of hemorrhagic conversion from septic cerebral emboli and given patient's h/o falls with prior traumatic SDH. Was continued on ASA. Physical deficits at DC included residual left-sided weakness and expressive aphasia which resulted from her prior cardioembolic CVA in November 2023. Was DC'd to [facility] following this hospitalization. Was then readmitted under our service 10/28/25-10/29/25 due to strokelike sx including transient confusion, decreased LLE sensation. No clear new infarcts were seen on brain MRI per neuro. No further neurologic workup was recommended; presentation thought 2/2 CVA recrudescence. Patient was DC'd back to [facility]. Patient recently completed 6-week course of IV vancomycin for bact eremia/infective endocarditis, as per above. Patient recently was transitioned to [facility] on 11/09/25. Increased lethargy and recurrent falls Increased confusion, suspect acute metabolic encephalopathy ISO possible UTI P/w recurrent falls since being moved to [facility] on 11/09, was c/o lightheadedness and dizziness to staff. Her son, Titus, also noticed that she was acting more confused than usual. Has chronic L-sided weakness, expressive aphasia since her cardioembolic CVA in Nov 2023. Pt A&Ox1-2 this morning to person, place but not situation. Able to answer a few direct questions but has periods of confusion. Not yet back to baseline per her son, Titus, after chatting with him today. CXR unremarkable. Does report increasing cough, check resp [employer] panel. Head CT with no acute intracranial abnormality, chronic small vessel ischemic changes and cerebral volume loss. Brain MRI ordered on behalf of son's request. Brain MRI with multiple scatter focal areas of hypodensity, findings not c/w acute infarction (likely changes from prior infarcts). UA suggestive of infection. Pt unable to provide a good history, unable if she is having any urinary sx. Remains afebrile; mild leukocytosis on admitting labs but resolved today. Procal negative however UTI could be c/t her mentation so will cover with IV Ro cephin for now pending her urine cx results. Has grown Klebsiella pneumonia, Pseudomonas aeruginosa and ESBL E. coli on prior urine cxs. Appreciate PT/OT evals as tolerated. R hip pain s/p falls R hip XR with mild arthritic changes with mild reduced hip joint space and marginal osteophytes formation, no fracture or dislocation seen. Tender with palpation of R hip region on exam this morning. R hip CT checked this morning with no evidence of fractures; mild R hip osteoarthritis, moderate osteoarthritis of the pubic symphysis. Continue PRN analgesia, trial lidocaine patch application. RLE swelling s/p falls RLE doppler US negative for DVT; did note possible mild R knee effusion, mild edema at R medial knee. Has notable swelling of R knee on exam, likely traumatic effusion/edema from falls. Again, appreciate PT/OT evals. Continue PRN analgesia. VERNA superimposed on CKD stage III Likely 2/2 recent poor po intake. Improved with IVF. Has still not been eating very well today, will continue to hold losartan and torsemide for now. Continue to montior and avoid nephrotoxic agents as able. PAF No longer on anticoagulation 2/2 history of traumatic subdural hematoma in September 2024 and recurrent falls. Continue Toprol-XL. Chronic HFpEF: Still appears dry on exam, continue to hold torsemide as per above. HTN: Losartan on hold as per above, likely will resume tomorrow. CAD with remote PCI and LAD stent placement in 1999: Continue ASA and statin therapy. Chronic anemia: H/H at baseline, continue to monitor. Other chronic medical conditions: Hypothyroidism - Continue levothyroxine. DMII - Hgb A1c 6.3% earlier this month, SSI protocol while inpt with BSG checks ACHS. Asthma - Continue home inhaler(s), Singulair. Stress urinary incontinence - Continue Ditropan XL. GERD - Continue PPI. DVT Prophylaxis: SCDs/TEDs Code Status: FULL CODE PCP: Lilo Mai MD Disposition: PT/OT evals pending to determine routine DC planning needs; discussed above plans of care with pt's son, Titus, over the phone this afternoon. Patient seen in collaboration with Dr. Ivey. Please see addendum. I spent a total of 62 minutes coordinating, documenting, and providing care for this patient excluding time spent in the performance of separately billed services or time spent by another provider/QHP. This included personally r eviewing all current laboratories and imaging studies, medical reconciliation, outpatient chart review and discussion with specialists. Admission and Anticipated Discharge Date Admission Date: November 10, 2025 Supervising Physician Co-Signing Physician Notes 85-year-old lady with PMH of chronic diastolic heart failure, CAD status post stent, PAF off anticoagulation secondary to fall risk/traumatic subdural hematoma, valvular heart disease, staph epidermidis bacteremia secondary to infective endocarditis status post vancomycin treatment, CVA w/ residual left sided weakness, HTN, HLD, DEMARIO on BPAP at home, PHTN, PE related to OCP use, T2DM on oral meds, hypothyroidism, chronic anemia [baseline hemoglobin of 9-10), GERD, hiatal hernia, mood disorder, ESBL UTI presents to the ED with complaint of recurrent falls since admission at [facility] the day prior to arrival. Patient was at [facility] prior to being transferred to [facility]. Recurrent falls, pt/ot, will need placement. imagings reviewed, no acute findings. Acute confusion: more confused at presentation x [address] head w/ no acute findings. ro infection Possible uti: rocephin, await urine cx. Possible viral urti: pt reports increasing cough, monitor, symptomatic care. VERNA over ckd: s/p ivf, cr improved, resume home meds. Right hip pain: fracture ruled out. c/w pain mx. On exam: pt appears chronically ill, on RA, trace ble edema. rest of exam as a luci. Total time spent independently: 25 min. I have seen and examined the patient and have discussed the case with the provider above. I agree with the assessment and plan as stated. Subjective Patient seen and examined in room N281-2. Lying down in bed. Was asleep when I entered the room but easily aroused with verbal stimuli. A&Ox2 (place/person) with periods of confusion. Chronic L-sided weakness and dysarthria s/p prior CVA. Complaining of R hip pain. Not able to recall much history. Review of Systems Review of Systems: Difficult to obtain 2/2 periods of confusion, dysarthria. Physical Exam Physical Exam: General: Chronically ill-appearing, elderly F, laying down in bed, A&Ox1-2 with periods of confusion, chronic dysarthric speech HEENT: Contusion on forehead, pale palpebral conjunctivae, dry mucous membranes Respiratory: Decreased breath sounds bilaterally Cardiovascular: Regular rhythm, bradycardic rate (HR 58bpm) Abdomen/GI: Active bowel sounds, soft, nontender to palpation in all quadrants Extremities/Musculoskeletal: RLE swelling, R hip tenderness with palpation, scattered bruising on BUE, chronic L-sided weakness (strength 3-4/5), intact R- sided strength testing Neurologic: No facial asymmetry, gait/stance not visualized Results & Data Results & Data Vital Signs (Past 12 Hours) Vital Signs Temp Pulse Pulse Pulse Resp BP BP 11/11/25 07:39 36.2 C L 76 18 123/72 11/11/25 07:35 70 11/11/25 01:34 62 11/11/25 01:25 11/11/25 01:25 36.2 C L 64 16 148/77 H 11/11/25 00:48 69 16 120/60 11/11/25 00:00 56 L 14 112/55 L 11/10/25 23:20 79 11/10/25 23:00 69 20 151/76 H 11/10/25 22:00 70 20 138/81 11/10/25 21:30 82 27 H 146/94 H 11/10/25 21:00 78 20 146/55 H Pulse Ox O2 Del Method O2 Flow Rate 11/11/25 07:39 97 Nasal Cannula 1 11/11/25 07:35 11/11/25 01:34 11/11/25 01:25 Room Air 11/11/25 01:25 97 Room Air 11/11/25 00:48 99 Room Air 11/11/25 00:00 94 Room Air 11/10/25 23:20 11/10/25 23:00 99 Room Air 11/10/25 22:00 100 Room Air 11/10/25 21:30 100 11/10/25 21:00 99 Room Air Laboratory Results Short CBC 11/10/25 11/11/25 Range/Units 19:17 05:31 WBC 10.87 H 9.48 (4.8-10.8) K/ul Hgb 11.2 L 9.9 L (12.0-16.0) g/dL Hct 34.8 L 30.5 L (37.0-47.0) % Plt Count 360 280 (130-400) K/uL BMP 11/10/25 11/11/25 19:17 05:31 Sodium 137 141 Potassium 3.7 3.6 Chloride 103 110 H Carbon Dioxide 23 24 BUN 39 H 31 H Creatinine 1.43 H 1.07 D Glucose 176 H 107 H Calcium 9.4 8.3 L Cardiac Enzymes 11/10/25 Range/Units 19:17 Total Creatine Kinase 133 (26-192) U/L Liver Function 11/10/25 Range/Units 19:17 Total Bilirubin 0.5 (0.2-1.0) mg/dl AST 21 (13-39) U/L ALT 17 (7-52) U/L Alkaline Phosphatase 80 (34-104) U/L Albumin 3.6 (3.4-5.0) gm/dl Urine 11/11/25 Range/Units 06:20 Urine Color Yellow Urine Appearance Slightly Cloudy (Clear) Urine pH 5.5 (4.5-7.5) Ur Specific Anton 1.010 (1.000-1.030) Urine Protein Negative (Negative) Urine Glucose (UA) Negative (Negative)
[2025-11-11] MEDS: ASPIRIN 81 MG ECTAB PO SCH (09:15)
[2025-11-11] MEDS: FLUTICASONE PROPIONATE NA SPR 16 GM BTL SCH (09:16)
[2025-11-11] MEDS: VITAMIN B COMPLEX TAB PO SCH (09:16)
[2025-11-11] MEDS: ATORVASTATIN 40 MG TAB PO SCH (09:16)
[2025-11-11] MEDS: METOPROLOL SUCC 25MG EXT REL TAB PO SCH (09:17)
[2025-11-11] MEDS: FLUTICASONE/VILANTEROL 100/25MCG 14 PUFFS/INHALER INH SCH (09:17)
[2025-11-11] MEDS: SIMETHICONE 80 MG CHEW PO SCH (09:18)
[2025-11-11] MEDS: OXYBUTYNIN CHLORIDE XL 5 MG TABCR PO SCH (09:18)
[2025-11-11] MEDS: MONTELUKAST SODIUM 10 MG TABLET PO SCH (09:18)
--- NOTE | 2025-11-11 10:50 | CT Scan Report ---
HISTORY: Rule out fracture. Right hip pain. TECHNIQUE: Helical CT imaging of the right hip without IV contrast. Images are presented in axial, sagittal, and coronal reformats. COMPARISON: Right hip CT dated 05/08/2022. FINDINGS: The right acetabulum appears intact. The right superior and inferior pubic rami appear intact. Moderate arthrosis of the pubic symphysis.Mild right hip osteoarthritis. The right femoral head and neck appear intact. The included portion of the right proximal femur appears intact. Enthesophyte formation about the greater trochanter at the gluteus muscle insertions. No free fluid or hematoma within the included portion of the pelvis. Atherosclerotic vascular disease. IMPRESSION: * No CT evidence of right hip fracture. If there is high clinical suspicion for right hip fracture, MRI could be considered for more sensitive evaluation. * Mild right hip osteoarthritis. * Moderate osteoarthritis of the pubic symphysis. Electronically signed by Vitaly Greene 11-11-2025 10:49 AM
--- NOTE | 2025-11-11 15:24 | Magnetic Resonance Report ---
Exam: MRI of the brain with and without contrast. Exam reason: Rule out CVA. Comparison: 10/28/2025. Technique: Multisequence multiplanar MR imaging of the brain was performed with and without contrast. Findings: There are multiple scattered focal areas of hyperintensity noted on the diffusion weighted sequence bilaterally. These are also hyperintense on the FLAIR sequence as well as the T2 sequence and show no significant hypointensity on the ADC trace map. The ventricles are normal in size and configuration. There is no evidence of acute intracranial hemorrhage, mass effect or midline shift. The orbits and orbital contents are within normal limits. The major vascular flow voids are intact. The sinuses are clear. The bony structures are unremarkable. Impression: 1. Multiple scattered focal areas of hyperintensity seen on the diffusion weighted sequence as above. Differential considerations include subacute infarct and T2 shine through artifact. The overall constellation of findings is not consistent with acute infarction. Electronically signed by Pietro Gregorio 11-11-2025 3:24 PM
[2025-11-11] MEDS: LIDOCAINE 5% 1 PATCH TD SCH (15:33)
[2025-11-11] MEDS: cefTRIAXone SODIUM 2,000 MG/50 ML BAG IV SCH (15:34)
[2025-11-11] MEDS: ACETAMINOPHEN 325 MG TAB PO PRN (16:15)
[2025-11-11 17:10] LABS: Chlamydia pneumoniae PCR Not Detected (NotDetected); Coronavirus 229E PCR Not Detected (NotDetected); Coronavirus CoV-2 (COVID19)PCR DETECTED (NotDetected); Coronavirus HKU1 PCR Not Detected (NotDetected); Coronavirus NL63 PCR Not Detected (NotDetected); Coronavirus OC43PCR Not Detected (NotDetected); Human Metapneumovirus PCR Not Detected (NotDetected); Parainfluenza Virus 1 PCR Not Detected (NotDetected); Parainfluenza Virus 2 PCR Not Detected (NotDetected); Parainfluenza Virus 3 PCR Not Detected (NotDetected); Parainfluenza Virus 4 PCR Not Detected (NotDetected); Respiratory Syncytial VirusPCR Not Detected (NotDetected); Rhinovirus/Enterovirus PCR Not Detected (NotDetected)
[2025-11-11] MEDS: REMOVE LIDODERM PATCH SCH (20:42)
[2025-11-11] MEDS: AZELASTINE HCL 0.1% NASAL 200 SPRAYS/27,400 MCG BTL SCH (20:42)
[2025-11-11] MEDS: BIMATOPROST 0.01% OP SOLN 2.5 ML BTL OPB SCH (20:43)
[2025-11-12 06:51] LABS: Hematocrit (blood only) 31.0 % (37.0-47.0); Hemoglobin 10.1 g/dL (12.0-16.0); Mean Corpuscular Hemoglobin 29.6 pg (25.0-34.0); Mean Corpuscular Volume 90.9 fL (80.0-100.0); Platelet Count 307 K/uL (130-400); RDW Standard Deviation 49.8 fL (36.4-46.3); Red Blood Count 3.41 M/uL (4.20-5.40); White Blood Count 10.92 K/ul (4.8-10.8)
[2025-11-12 07:41] LABS: Anion Gap 10.0 (3-11); Blood Urea Nitrogen 18.0 mg/dl (6-23); Calcium 8.5 mg/dl (8.6-10.3); Carbon Dioxide 21.0 mmol/L (21-32); Chloride 110.0 mmol/L (98-107); Creatinine Clr Calc Pharmacy 50.0 ml/min; Glucose 133.0 mg/dl (70-99(Fasting)); Magnesium 1.8 mg/dl (1.7-2.4); Potassium 3.6 mmol/L (3.5-5.1); Sodium 141.0 mmol/L (136-145)
--- NOTE | 2025-11-12 09:00 | Hospitalist Progress Note ---
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 Recent complex admission under our service 09/26/25-10/03/25. Found to have cardioembolic right cerebellar stroke ISO Staphylococcus epidermidis bacteremia and infective endocarditis (mitral vegetation). Had repeat brain MRI on 10/02 due to acute onset of EUBANKS and confusion; was ultimately found to have new scattered punctate infarcts when compared to her prior MRI (likely thromboembolic source). Chemical AC and Plavix not started 2/2 risk of hemorrhagic conversion from septic cerebral emboli and given patient's h/o falls with prior traumatic SDH. Was continued on ASA. Physical deficits at DC included residual left-sided weakness and expressive aphasia which resulted from her prior cardioembolic CVA in November 2023. Was DC'd to [facility] following this hospitalization. Was then readmitted under our service 10/28/25-10/29/25 due to strokelike sx including transient confusion, decreased LLE sensation. No clear new infarcts were seen on brain MRI per neuro. No further neurologic workup was recommended; presentation thought 2/2 CVA recrudescence. Patient was DC'd back to [facility]. Patient recently completed 6-week course of IV vancomycin for bacteremia/infective endocarditis, as per above. Patient was transitioned to [facility] on 11/09/25. Increased lethargy and recurrent falls Increased confusion, suspect acute metabolic encephalopathy ISO UTI and COVID P/w lethargy and recurrent falls since being moved to [facility] on 11/09, was c/o lightheadedness and dizziness to staff. Her son, Titus, also noticed that she was acting more confused than usual. Has chronic L-sided weakness, expressive aphasia since her cardioembolic CVA in Nov 2023. Pt A&Ox2-3 with periods of forgetfulness; extremely flat affect. Unable to recall date/time; pt does however recall recent falls. At baseline, pt A&Ox4 and engaged in conversation per her son. Head CT with no acute intracranial abnormality, chronic small vessel ischemic changes and cerebral volume loss. Brain MRI ordered on behalf of son's request. Brain MRI with multiple scatter focal areas of hypodensity, findings not c/w acute infarction (likely changes from prior infarcts). Curious if pt developing component of vascular/CVA-related dementia. Has nonproductive cough, unclear when this first started. Remains on RA; hemodynamically stable and afebrile. CXR was unremarkable; tested (+) for COVID on 11/11. Droplet precautions added. Likely c/t recent confusion, lethargy. UA also suggestive of infection; prelim urine cx growing E. coli, sensitivities pending. IV Rocephin was started on 11/11. Pt denies any specific urinary sx however UTI likely c/t confusion, lethargy. Has grown Klebsiella pneumonia, Pseudomonas aeruginosa and ESBL E. coli on prior urine cxs. Appreciate PT/OT evals as tolerated; saw pt on 11/11, recommending rehab. Pt was previously in assisted-living portion of [facility]; referral placed on 11/11 for SNF portion of the facility. R hip pain s/p falls R hip XR with mild arthritic changes with mild reduced hip joint space and marginal osteophytes formation, no fracture or dislocation seen. Tender with palpation of R hip region on exam. R hip CT checked on 11/11 with no evidence of fractures; mild R hip osteoarthritis, moderate osteoarthritis of the pubic symphysis. Continue PRN analgesia, trial lidocaine patch application. RLE swelling s/p falls RLE doppler US negative for DVT; did note possible mild R knee effusion, mild edema at R medial knee. Has notable swelling of R knee on exam, likely traumatic effusion/edema from falls. Again, appreciate PT/OT evals. Continue PRN analgesia. VERNA superimposed on CKD stage III Likely 2/2 recent poor po intake. Improved with IVF. Has still not been eating very well in the hospital. Will continue to hold torsemide for now. Reinstate losartan today given improvement in renal function, HTN. Continue to montior; avoid nephrotoxic agents as able. PAF No longer on anticoagulation 2/2 history of traumatic subdural hematoma in September 2024 and recurrent falls. Continue Toprol-XL. Chronic HFpEF: Still appears dry on exam, continue to hold torsemide as per above. HTN: Losartan resumed, as per above, with hold parameters. CAD with remote PCI and LAD stent placement in 1999: Continue ASA and statin therapy. Chronic anemia: H/H at baseline, continue to monitor. Other chronic medical conditions: Hypothyroidism - Continue levothyroxine. DMII - Hgb A1c 6.3% earlier this month, SSI protocol while inpt with BSG checks ACHS. Asthma - Continue home inhaler(s), Singulair. Stress urinary incontinence - Continue Ditropan XL. GERD - Continue PPI. DVT Prophylaxis: SCDs/TEDs Code Status: FULL CODE PCP: Lilo Mai MD Disposition: SNF referral pending, as per above. Will update pt's son, Titus, later on today. Patient seen in collaboration with Dr. Ivey. Please see addendum. I spent a total of 55 minutes coordinating, documenting, and providing care for this patient excluding time spent in the performance of separately billed services or time spent by another provider/QHP. This included personally reviewing all current laboratories and imaging studies, medical reconciliation, outpatient chart review and discussion with specialists. Admission and Anticipated Discharge Date Admission Date: November 10, 2025 Supervising Physician Co-Signing Physician Notes 85-year-old lady with PMH of chronic diastolic heart failure, CAD status post stent, PAF off anticoagulation secondary to fall risk/traumatic subdural hematoma, valvular heart disease, staph epidermidis bacteremia secondary to infective endocarditis status post vancomycin treatment, CVA w/ residual left sided weakness, HTN, HLD, DEMARIO on BPAP at home, PHTN, PE related to OCP use, T2DM on oral meds, hypothyroidism, chronic anemia [baseline hemoglobin of 9-10), GERD, hiatal hernia, mood disorder, ESBL UTI presents to the ED with complaint of recurrent falls since admission at [facility] the day prior to arrival. Patient was at [facility] prior to being transferred to [facility]. Recurrent falls, pt/ot, will need placement. imagings reviewed, no acute findin gs. Acute confusion: more confused at presentation x [address] head w/ no acute findings. ro infection Possible uti: rocephin, E coli in urine cx. Possible viral urti: pt reports increasing cough, monitor, symptomatic care. COVID came back positive. VERNA over ckd: s/p ivf, cr improved, resume home meds. Right hip pain: fracture ruled out. c/w pain mx. On exam: pt appears chronically ill, on RA, trace ble edema. rest of exam as above. Total time spent independently: 22 min. I have seen and examined the patient and have discussed the case with the provider above. I agree with the assessment and plan as stated. Subjective Patient seen and examined in room W252-1. Tested positive for COVID-19 yesterday; on droplet precautions. A&Ox2-3. Recalls having recent falls. Cannot recall date or time. Admits to right hip pain, slightly worse when compared to yesterday. Denies any SOB or chest pain. Has a nonproductive cough, states this has been going on for "a couple of days." Unable to provide any additional details regarding this. Flat affect. Periods of forgetfulness. Spoke about her son, Titus. Remembers that he came to visit her twice yesterday. Not very conversant, requires repeated prompting to gather history. Review of Systems Review of Systems: At least ten systems reviewed and negative, except as noted in the subjective section. Physical Exam Physical Exam: General: Chronically ill-appearing, elderly F, sitting up in bed with legs flexed, A&Ox2-3 with periods of forgetfulness, chronic expressive aphasia, extremely flat affect, not very conversant, requires repetitive prompting to answer questions HEENT: Contusion on forehead, pale palpebral conjunctivae, dry mucous membranes Respiratory: Decreased breath sounds bilaterally (not following inspiratory commands well) Cardiovascular: RRR, + murmur Abdomen/GI: Active bowel sounds, soft, nontender to palpation in all quadrants Extremities/Musculoskeletal: RLE swelling, R hip tenderness with palpation, scattered bruising on BUE, chronic L-sided weakness (strength 3-4/5), intact R- sided strength testing Neurologic: No facial asymmetry, gait/stance not visualized Results & Data Results & Data Vital Signs (Past 12 Hours) Vital Signs Temp Pulse Pulse Resp BP BP Pulse Ox 11/12/25 08:20 36.8 C 87 18 158/72 H 90 11/12/25 03:51 36.6 C 60 18 126/60 99 11/12/25 01:37 11/11/25 23:09 36.5 C 74 16 133/76 100 11/11/25 21:47 51 L Pulse Ox O2 Del Method O2 Del Method 11/12/25 08:20 Room Air 11/12/25 03:51 Room Air 11/12/25 01:37 95 Room Air 11/11/25 23:09 Room Air 11/11/25 21:47 Laboratory Results Short CBC 11/12/25 Range/Units 06:21 WBC 10.92 H (4.8-10.8) K/ul Hgb 10.1 L (12.0-16.0) g/dL Hct 31.0 L (37.0-47.0) % Plt Count 307 (130-400) K/uL BMP 11/12/25 06:21 Sodium 141 Potassium 3.6 Chloride 110 H Carbon Dioxide 21 BUN 18 Creatinine 0.72 D Glucose 133 H Calcium 8.5 L
[2025-11-12] MEDS: LOSARTAN POTASSIUM 50 MG TAB PO SCH (09:44)
[2025-11-13 06:49] LABS: Hematocrit (blood only) 31.0 % (37.0-47.0); Hemoglobin 9.8 g/dL (12.0-16.0); Mean Corpuscular Hemoglobin 28.7 pg (25.0-34.0); Mean Corpuscular Volume 90.9 fL (80.0-100.0); Platelet Count 298 K/uL (130-400); RDW Standard Deviation 47.5 fL (36.4-46.3); Red Blood Count 3.41 M/uL (4.20-5.40); White Blood Count 7.08 K/ul (4.8-10.8)
[2025-11-13 07:11] LABS: Anion Gap 9.0 (3-11); Blood Urea Nitrogen 14.0 mg/dl (6-23); Calcium 8.7 mg/dl (8.6-10.3); Carbon Dioxide 22.0 mmol/L (21-32); Chloride 110.0 mmol/L (98-107); Creatinine Clr Calc Pharmacy 54.4 ml/min; Glucose 108.0 mg/dl (70-99(Fasting)); Magnesium 1.9 mg/dl (1.7-2.4); Potassium 3.7 mmol/L (3.5-5.1); Sodium 141.0 mmol/L (136-145)
--- NOTE | 2025-11-13 08:04 | Hospitalist Progress Note ---
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 and CVA recrudescence, respectively Admitting labs notable for VERNA but otherwise mostly unremarkable Head CT negative Brain MRI findings not consistent with acute infarction Lethargy and falls likely secondary to COVID and UTI as well as generalized weakness from multiple hospitalizations PT/OT evals recommending return to SNF at time of discharge Anticipate DC on 11/15 COVID Biofire positive CXR unremarkable Vitals stable and patient remains on room air Continue supportive care UTI Urine culture positive for E Coli ESBL Rocephin changed to Ertapenem Complete 3 day course ending 11/15 R hip pain s/p falls R hip XR without fracture or dislocation, notes mild arthritis RLE doppler US negative for DVT R hip CT with no evidence of fractures; mild R hip osteoarthritis, moderate osteoarthritis of the pubic symphysis Continue lidocaine patch and tylenol PRN VERNA-> resolved Creat 1.43 on admission-> improved with fluids Likely secondary to dehydration in setting of poor PO intake Avoid nephrotoxic agents as able Monitor renal function PAF Rate controlled Not anticoagulated due to recurrent falls Continue metoprolol Chronic HFpEF Still appears dry on exam Continue to hold torsemide due to poor PO intake HTN Continue losartan CAD s/p stent History of CVA Continue baby aspirin and statin Chronic anemia H/H at baseline Continue to monitor Other chronic medical conditions: Hypothyroidism - Continue levothyroxine. DMII - Hgb A1c 6.3% earlier this month, SSI protocol while inpt with BSG checks ACHS. Asthma - Continue home inhalers and montelukast Stress urinary incontinence - Continue oxybutynin GERD - Continue PPI. DVT Prophylaxis: SCDs/TEDs Code Status: FULL CODE PCP: Lilo Mai MD Disposition: Anticipate DC back to [facility] on 11/15 Patient seen in collaboration with Dr. Quiroz. Please see addendum. I spent a total of 60 minutes coordinating, documenting and providing care for this patient excluding time spent in the performance of separately billed services or time spent by another provider/QHP. Admission and Anticipated Discharge Date Admission Date: November 10, 2025 Supervising Physician Co-Signing Physician Notes Patient seen and examined independently. Discussed with above provider Patient reports that she feels weak and tired. She is alert and oriented x 3. Vital sign appears stable. No complaint of fever, chills, chest pain, shortness of breath, abdominal pain or urinary symptoms. Antibiotic changed to ertapenem given urine culture finding. I have reviewed the advanced practitioner's documentation, and I agree with, and take responsibility for the plan of care I spent a total of 20 minutes coordinating, documenting, and providing care for this patient excluding time spent in the performance of separately billed services. All of the aforementioned completed while collaborating with the assigned advanced practitioner for a full treatment plan Subjective Patient seen resting in bed Complaining of right hip pain Notes a productive cough Denies headache, chest pain, SOB, abdominal pain, N/V/D Does not have much of an appetite Review of Systems Review of Systems: All systems reviewed & are unremarkable except as noted in HPI & below Physical Exam Physical Exam: General/Psych: WD/WN, sitting up in bed, NAD, conversing easily Head: normocephalic, atraumatic Eyes: normal inspection, PERRL, conjunctivae pink Neck: normal visual inspection, trachea midline Respiratory: normal respiratory effort, lungs clear to auscultation, no wheeze/rales/rhonchi, no accessory muscle use Cardiovascular: regular rate and rhythm, no murmur/rub/gallop Extremities: no cyanosis or clubbing, normal peripheral pulses, no BLE edema Abdomen/GI: normal bowel sounds, soft, nontender Neurologic/MSK: A+Ox3, motor strength 5/5, moves all extremities Skin: no rashes, normal color, warm and dry Results & Data Results & Data Vital Signs (Past 12 Hours) Vital Signs Temp Pulse Pulse Resp BP Pulse Ox Pulse Ox 11/13/25 07:44 62 11/13/25 03:47 36.6 C 76 20 165/78 H 92 11/13/25 01:00 95 11/12/25 23:50 36.4 C L 83 20 169/75 H 91 11/12/25 22:03 75 O2 Del Method O2 Del Method 11/13/25 07:44 11/13/25 03:47 Room Air 11/13/25 01:00 Room Air 11/12/25 23:50 Room Air 11/12/25 22:03 Laboratory Results Short CBC 11/13/25 Range/Units 05:56 WBC 7.08 (4.8-10.8) K/ul Hgb 9.8 L (12.0-16.0) g/dL Hct 31.0 L (37.0-47.0) % Plt Count 298 (130-400) K/uL BMP 11/13/25 05:56 Sodium 141 Potassium 3.7 Chloride 110 H Carbon Dioxide 22 BUN 14 Creatinine 0.66 Glucose 108 H Calcium 8.7 I have independently reviewed and interpreted patient's labs including CBC, BMP, mag Medications Administered Current Inpatient Medications Acetaminophen (Acetaminophen 325 Mg Tab) 650 mg PO QID PRN PRN Reason: pain/fever Stop: 12/10/25 23:48 Last Admin: 11/11/25 16:15 Dose: 650 mg Aspirin (Aspirin 81 Mg Ectab) 81 mg PO DAILY ALYSA Stop: 12/11/25 08:59 Last Admin: 11/12/25 08:38 Dose: 81 mg Atorvastatin Calcium (Atorvastatin 40 Mg Tab) 80 mg PO DAILY ALYSA Stop: 12/11/25 08:59 Last Admin: 11/12/25 08:38 Dose: 80 mg Azelastine HCl (Azelastine Hcl 0.1% Nasal 200 Sprays/27,400 Mcg Btl) 2 sprays NA HS ALYSA Stop: 12/11/25 20:59 Last Admin: 11/12/25 20:44 Dose: 2 sprays Bimatoprost (Bimatoprost 0.01% Op Soln 2.5 Ml Btl) 1 drops OPB QPM [facility] Stop: 12/11/25 20:59 Last Admin: 11/12/25 20:44 Dose: 1 drops Dextrose (Dextrose 50% 50 Ml Syringe) 25 - 50 ml IV UD PRN; Protocol PRN Reason: Hypoglycemia Protocol Stop: 12/11/25 01:36 Diclofenac Sodium (Diclofenac Sod 1% Gel 100 Gm Tube) 2 gm EXT TID PRN; Protocol PRN Reason: Pain Stop: 12/10/25 23:46 Fluticasone Propionate (Fluticasone Propionate Na Spr 16 Gm Btl) 2 sprays NA DAILY [facility] Stop: 12/11/25 08:59 Last Admin: 11/12/25 08:38 Dose: 2 sprays Fluticasone/Vilanterol (Fluticasone/Vilanterol 100/25mcg 14 Puffs/Inhaler) 1 puffs INH DAILY [facility] Stop: 12/11/25 08:59 Last Admin: 11/12/25 08:39 Dose: 1 puffs Glucagon (Glucagon For Inj 1 Mg Vial) 1 mg SQ UD PRN; Protocol PRN Reason: Hypoglycemia Protocol Stop: 12/11/25 01:36 Glucose (Glucose 40% Gel 15 Gm Tube) 15 - 30 gm PO UD PRN; Protocol PRN Reason: Hypoglycemia Protocol Stop: 12/11/25 01:36 Glucose (Glucose 10 Tab/Tube) 4 - 8 tab PO UD PRN; Protocol PRN Reason: Hypoglycemia Protocol Stop: 12/11/25 01:36 Promethazine HCl (Phenergan) 6.25 mg in 50.25 mls @ 201 mls/hr IV Q6H PRN PRN Reason: Nausea And Vomiting Stop: 12/10/25 23:48 Ertapenem (Invanz 1000mg) 1,000 mg in 10 mls @ 2 mls/min IV Q24H [facility] Stop: 11/16/25 07:59 Insulin Aspart (Insulin Aspart Per Unit Charge) 0 units SC ACHS [facility] Stop: 12/11/25 01:36 Last Admin: 11/12/25 20:45 Dose: Not Given Levothyroxine Sodium (Levothyroxine Sodium 75 Mcg Tablet) 75 mcg PO DAILYBB [facility] Stop: 12/11/25 06:29 Last Admin: 11/13/25 05:12 Dose: 75 mcg Lidocaine (Lidocaine 5% 1 Patch) 1 patch TD QAM [facility] Stop: 12/11/25 12:59 Last Admin: 11/12/25 08:40 Dose: 1 patch Losartan Potassium (Losartan Potassium 50 Mg Tab) 50 mg PO DAILY ALYSA Stop: 12/12/25 09:29 Last Admin: 11/12/25 09:44 Dose: 50 mg Metoprolol Succinate (Metoprolol Succ 25mg Ext Rel Tab) 25 mg PO DAILY ALYSA Stop: 12/11/25 08:59 Last Admin: 11/12/25 08:38 Dose: 25 mg Miscellaneous (Carbohydrates For Hypoglycemia ) 15 - 30 gm PO UD PRN PRN Reason: Hypoglycemia Protocol Stop: 12/11/25 01:36 Miscellaneous (Remove Lidoderm Patch) 1 each N/A DAILY@2100 [facility] Stop: 12/11/25 20:59 Last Admin: 11/12/25 20:45 Dose: 1 each Montelukast Sodium (Montelukast Sodium 10 Mg Tablet) 10 mg PO DAILY [facility] Stop: 12/11/25 08:59 Last Admin: 11/12/25 09:36 Dose: Not Given Oxybutynin Chloride (Oxybutynin Chloride Xl 5 Mg Tabcr) 10 mg PO DAILY [facility] Stop: 12/11/25 08:59 Last Admin: 11/12/25 08:35 Dose: 10 mg Pantoprazole Sodium (Pantoprazole 40 Mg Tab) 40 mg PO DAILYBB [facility] Stop: 12/11/25 06:29 Last Admin: 11/13/25 05:13 Dose: 40 mg Simethicone (Simethicone 80 Mg Chew) 40 mg PO BID [facility] Stop: 12/11/25 08:59 Last Admin: 11/12/25 20:45 Dose: 40 mg Tramadol HCl (Tramadol Hcl 50 Mg Tablet) 25 mg PO Q4H PRN PRN Reason: Pain Stop: 12/10/25 23:48 Last Admin: 11/12/25 20:46 Dose: 25 mg Vitamin B Complex (Vitamin B Complex Tab) 1 tab PO DAILY [facility] Stop: 12/11/25 08:59 Last Admin: 11/12/25 08:37 Dose: 1 tab Zinc Acetate/Diphenhydramine (Diphenhydramine 2%/Zinc 0.1% Cream 28.4gm Tube) 1 appln EXT QID PRN PRN Reason: itchy skin Stop: 12/11/25 02:15
[2025-11-13] MEDS: ERTAPENEM 1000MG 1,000 MG/10 ML SYR IV SCH (10:30)
[2025-11-13] MEDS: LIDOCAINE 5% 1 PATCH TD SCH (10:39)
[2025-11-13] MEDS: guaiFENesin 600 MG TABCR PO SCH (20:21)
[2025-11-13] MEDS: BENZONATATE 100 MG CAPSULE PO PRN (23:08)
--- NOTE | 2025-11-14 06:12 | Electrocardiogram Report ---
Test Reason : Blood Pressure : */* mmHG Vent. Rate : 68 BPM Atrial Rate : 68 BPM P-R Int : 178 ms QRS Dur : 90 ms QT Int : 420 ms P-R-T Axes : 67 -14 12 degrees QTcB Int : 446 ms Normal sinus rhythm Normal ECG When compared with ECG of 28-Oct-2025 13:38, No significant change Confirmed by Elmo Brown [id number]) on 11/14/2025 6:11:46 AM Referred By: [facility] Confirmed By: Elmo Brown
[2025-11-14 07:16] LABS: Hematocrit (blood only) 32.2 % (37.0-47.0); Hemoglobin 10.4 g/dL (12.0-16.0); Mean Corpuscular Hemoglobin 29.1 pg (25.0-34.0); Mean Corpuscular Volume 89.9 fL (80.0-100.0); Platelet Count 321 K/uL (130-400); RDW Standard Deviation 50.1 fL (36.4-46.3); Red Blood Count 3.58 M/uL (4.20-5.40); White Blood Count 8.47 K/ul (4.8-10.8)
[2025-11-14 07:35] LABS: Anion Gap 12.0 (3-11); Blood Urea Nitrogen 12.0 mg/dl (6-23); Calcium 8.7 mg/dl (8.6-10.3); Carbon Dioxide 19.0 mmol/L (21-32); Chloride 109.0 mmol/L (98-107); Creatinine Clr Calc Pharmacy 55.8 ml/min; Glucose 107.0 mg/dl (70-99(Fasting)); Potassium 3.6 mmol/L (3.5-5.1); Sodium 140.0 mmol/L (136-145)
--- NOTE | 2025-11-14 08:01 | Hospitalist Progress Note ---
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 Lethargy Recurrent falls Patient presented with lethargy and recurrent falls since being moved to [facility] on 11/09 (prior to this was at 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 and CVA recrudescence, respectively Admitting labs notable for VERNA but otherwise mostly unremarkable Head CT negative Brain MRI findings not consistent with acute infarction Lethargy and falls likely secondary to COVID and UTI as well as generalized weakness from multiple hospitalizations PT/OT evals recommending return to SNF at time of discharge Anticipate DC on 11/16 COVID Biofire positive CXR unremarkable Vitals stable and patient remains on room air Continue supportive care UTI Urine culture positive for E Coli ESBL Rocephin changed to Ertapenem Complete 3 day course ending 11/15 R hip pain s/p falls R hip XR without fracture or dislocation, notes mild arthritis RLE doppler US negative for DVT R hip CT with no evidence of fractures; mild R hip osteoarthritis, moderate osteoarthritis of the pubic symphysis Continue lidocaine patch and tylenol PRN VERNA-> resolved Creat 1.43 on admission-> improved with fluids Likely secondary to dehydration in setting of poor PO intake Avoid nephrotoxic agents as able Monitor renal function PAF Rate controlled Not anticoagulated due to recurrent falls Continue metoprolol Chronic HFpEF Torsemide initially on hold due to poor PO intake Resume tomorrow as BPs have been running high HTN Continue losartan and torsemide CAD s/p stent History of CVA Continue baby aspirin and statin Chronic anemia H/H at baseline Continue to monitor Other chronic medical conditions: Hypothyroidism - Continue levothyroxine. DMII - Hgb A1c 6.3% earlier this month, BSG ACHS and SSI Asthma - Continue home inhalers and montelukast Stress urinary incontinence - Continue oxybutynin GERD - Continue PPI DVT Prophylaxis: SCDs/TEDs Code Status: FULL CODE PCP: Lilo Mai MD Disposition: Anticipate DC back to [facility] on 11/16 Patient seen in collaboration with Dr. Quiroz. Please see addendum. I spent a total of 50 minutes coordinating, documenting and providing care for this patient excluding time spent in the performance of separately billed services or time spent by another provider/QHP. Admission and Anticipated Discharge Date Admission Date: November 10, 2025 Supervising Physician Co-Signing Physician Notes Patient seen and examined independently. Discussed with above provider Patient seen and examined at bedside. Comfortable; not in distress. Denies fever, chills, chest pain, shortness of breath, abdominal pain or urinary symptoms. No significant overnight events Continue antibiotics for UTI. I have reviewed the advanced practitioner's documentation, and I agree with, and take responsibility for the plan of care I spent a total of 20 minutes coordinating, documenting, and providing care for this patient excluding time spent in the performance of separately billed services. All of the aforementioned completed while collaborating with the assigned advanced practitioner for a full treatment plan Subjective Patient seen resting in bed Feels very tired today Reports cough is more loose and hip pain is better Denies headache, chest pain, SOB, abdominal pain, N/V/D Still does not have much of an appetite Review of Systems Review of Systems: All systems reviewed & are unremarkable except as noted in HPI & below Physical Exam Physical Exam: General/Psych: ill appearing, sitting up in bed, NAD, conversing easily Head: normocephalic, atraumatic Eyes: normal inspection, PERRL, conjunctivae pink Neck: normal visual inspection, trachea midline Respiratory: normal respiratory effort, lungs clear to auscultation, no wheeze/rales/rhonchi, no accessory muscle use Cardiovascular: regular rate and rhythm, no murmur/rub/gallop Extremities: no cyanosis or clubbing, normal peripheral pulses, no BLE edema Abdomen/GI: normal bowel sounds, soft, nontender Neurologic/MSK: A+Ox3, motor strength 5/5, moves all extremities Skin: no rashes, normal color, warm and dry Results & Data Results & Data Vital Signs (Past 12 Hours) Vital Signs Temp Pulse Pulse Resp BP Pulse Ox O2 Del Method 11/14/25 07:45 36.2 C L 68 17 181/71 H 97 Room Air 11/14/25 05:30 50 L 11/14/25 03:44 36.4 C L 72 18 159/73 H 93 Room Air 11/13/25 22:28 36.4 C L 82 20 167/80 H 98 Room Air 11/13/25 21:29 64 11/13/25 20:15 Room Air Laboratory Results Short CBC 11/14/25 Range/Units 06:30 WBC 8.47 (4.8-10.8) K/ul Hgb 10.4 L (12.0-16.0) g/dL Hct 32.2 L (37.0-47.0) % Plt Count 321 (130-400) K/uL BMP 11/14/25 06:30 Sodium 140 Potassium 3.6 Chloride 109 H Carbon Dioxide 19 L BUN 12 Creatinine 0.65 Glucose 107 H Calcium 8.7 I have independently reviewed and interpreted patient's labs including CBC and BMP Medications Administered Current Inpatient Medications Acetaminophen (Acetaminophen 325 Mg Tab) 650 mg PO QID PRN PRN Reason: pain/fever Stop: 12/10/25 23:48 Last Admin: 11/13/25 23:12 Dose: 650 mg Aspirin (Aspirin 81 Mg Ectab) 81 mg PO DAILY ALYSA Stop: 12/11/25 08:59 Last Admin: 11/13/25 10:31 Dose: 81 mg Atorvastatin Calcium (Atorvastatin 40 Mg Tab) 80 mg PO DAILY [facility] Stop: 12/11/25 08:59 Last Admin: 11/13/25 10:31 Dose: 80 mg Azelastine HCl (Azelastine Hcl 0.1% Nasal 200 Sprays/27,400 Mcg Btl) 2 sprays NA HS [facility]YSA Stop: 12/11/25 20:59 Last Admin: 11/13/25 20:22 Dose: 2 sprays Benzonatate (Benzonatate 100 Mg Capsule) 100 mg PO TID PRN PRN Reason: Cough Stop: 12/13/25 22:48 Last Admin: 11/13/25 23:08 Dose: 100 mg Bimatoprost (Bimatoprost 0.01% Op Soln 2.5 Ml Btl) 1 drops OPB QPM [facility] Stop: 12/11/25 20:59 Last Admin: 11/13/25 20:22 Dose: 1 drops Dextrose (Dextrose 50% 50 Ml Syringe) 25 - 50 ml IV UD PRN; Protocol PRN Reason: Hypoglycemia Protocol Stop: 12/11/25 01:36 Diclofenac Sodium (Diclofenac Sod 1% Gel 100 Gm Tube) 2 gm EXT TID PRN; Protocol PRN Reason: Pain Stop: 12/10/25 23:46 Fluticasone Propionate (Fluticasone Propionate Na Spr 16 Gm Btl) 2 sprays NA DAILY [facility] Stop: 12/11/25 08:59 Last Admin: 11/13/25 10:37 Dose: 2 sprays Fluticasone/Vilanterol (Fluticasone/Vilanterol 100/25mcg 14 Puffs/Inhaler) 1 puffs INH DAILY [facility] Stop: 12/11/25 08:59 Last Admin: 11/13/25 10:32 Dose: 1 puffs Glucagon (Glucagon For Inj 1 Mg Vial) 1 mg SQ UD PRN; Protocol PRN Reason: Hypoglycemia Protocol Stop: 12/11/25 01:36 Glucose (Glucose 40% Gel 15 Gm Tube) 15 - 30 gm PO UD PRN; Protocol PRN Reason: Hypoglycemia Protocol Stop: 12/11/25 01:36 Glucose (Glucose 10 Tab/Tube) 4 - 8 tab PO UD PRN; Protocol PRN Reason: Hypoglycemia Protocol Stop: 12/11/25 01:36 Guaifenesin (Guaifenesin 600 Mg Tabcr) 1,200 mg PO Q12 ALYSA Stop: 12/13/25 20:59 Last Admin: 11/13/25 20:21 Dose: 1,200 mg Promethazine HCl (Phenergan) 6.25 mg in 50.25 mls @ 201 mls/hr IV Q6H PRN PRN Reason: Nausea And Vomiting Stop: 12/10/25 23:48 Ertapenem (Invanz 1000mg) 1,000 mg in 10 mls @ 2 mls/min IV Q24H [facility] Stop: 11/16/25 07:59 Last Admin: 11/13/25 10:30 Dose: 2 mls/min Insulin Aspart (Insulin Aspart Per Unit Charge) 0 units SC ACHS [facility] Stop: 12/11/25 01:36 Last Admin: 11/13/25 20:23 Dose: Not Given Levothyroxine Sodium (Levothyroxine Sodium 75 Mcg Tablet) 75 mcg PO DAILYBB [facility] Stop: 12/11/25 06:29 Last Admin: 11/14/25 05:58 Dose: 75 mcg Lidocaine (Lidocaine 5% 1 Patch) 1 patch TD QAM [facility] Stop: 12/13/25 10:14 Last Admin: 11/13/25 10:39 Dose: 1 patch Losartan Potassium (Losartan Potassium 50 Mg Tab) 50 mg PO DAILY [facility] Stop: 12/12/25 09:29 Last Admin: 11/13/25 10:36 Dose: 50 mg Metoprolol Succinate (Metoprolol Succ 25mg Ext Rel Tab) 25 mg PO DAILY [facility] Stop: 12/11/25 08:59 Last Admin: 11/13/25 10:34 Dose: 25 mg Miscellaneous (Carbohydrates For Hypoglycemia ) 15 - 30 gm PO UD PRN PRN Reason: Hypoglycemia Protocol Stop: 12/11/25 01:36 Miscellaneous (Remove Lidoderm Patch) 1 each N/A DAILY@2100 [facility] Stop: 12/11/25 20:59 Last Admin: 11/13/25 20:23 Dose: 1 each Montelukast Sodium (Montelukast Sodium 10 Mg Tablet) 10 mg PO DAILY [facility] Stop: 12/11/25 08:59 Last Admin: 11/13/25 10:35 Dose: 10 mg Oxybutynin Chloride (Oxybutynin Chloride Xl 5 Mg Tabcr) 10 mg PO DAILY [facility] Stop: 12/11/25 08:59 Last Admin: 11/13/25 10:38 Dose: 10 mg Pantoprazole Sodium (Pantoprazole 40 Mg Tab) 40 mg PO DAILYBB [facility] Stop: 12/11/25 06:29 Last Admin: 11/14/25 05:58 Dose: 40 mg Simethicone (Simethicone 80 Mg Chew) 40 mg PO BID [facility] Stop: 12/11/25 08:59 Last Admin: 11/13/25 20:21 Dose: 40 mg Tramadol HCl (Tramadol Hcl 50 Mg Tablet) 25 mg PO Q4H PRN PRN Reason: Pain Stop: 12/10/25 23:48 Last Admin: 11/13/25 20:23 Dose: 25 mg Vitamin B Complex (Vitamin B Complex Tab) 1 tab PO DAILY [facility] Stop: 12/11/25 08:59 Last Admin: 11/13/25 10:38 Dose: 1 tab Zinc Acetate/Diphenhydramine (Diphenhydramine 2%/Zinc 0.1% Cream 28.4gm Tube) 1 appln EXT QID PRN PRN Reason: itchy skin Stop: 12/11/25 02:15
[2025-11-14] MEDS: POLYETHYLENE (MIRALAX) 17 GM PACK PO PRN (10:15)
[2025-11-14] MEDS: POTASSIUM CHLORIDE CRTAB 20 MEQ TABCR PO SCH (20:21)
[2025-11-14] MEDS: diphenhydrAMINE 2%/ZINC 0.1% CREAM 28.4GM TUBE EXT PRN (20:21)
[2025-11-15 06:39] LABS: Hematocrit (blood only) 29.7 % (37.0-47.0); Hemoglobin 9.4 g/dL (12.0-16.0); Mean Corpuscular Hemoglobin 28.4 pg (25.0-34.0); Mean Corpuscular Volume 89.7 fL (80.0-100.0); Platelet Count 303 K/uL (130-400); RDW Standard Deviation 50.0 fL (36.4-46.3); Red Blood Count 3.31 M/uL (4.20-5.40); White Blood Count 9.58 K/ul (4.8-10.8)
[2025-11-15 06:57] LABS: Anion Gap 8.0 (3-11); Blood Urea Nitrogen 10.0 mg/dl (6-23); Calcium 8.7 mg/dl (8.6-10.3); Carbon Dioxide 24.0 mmol/L (21-32); Chloride 109.0 mmol/L (98-107); Creatinine Clr Calc Pharmacy 54.0 ml/min; Glucose 112.0 mg/dl (70-99(Fasting)); Magnesium 1.7 mg/dl (1.7-2.4); Potassium 4.1 mmol/L (3.5-5.1); Sodium 141.0 mmol/L (136-145)
[2025-11-15] MEDS: MAGNESIUM OXIDE 400 MG TAB PO SCH (08:11)
[2025-11-15] MEDS: TORSEMIDE 20 MG TAB PO SCH (09:12)
--- NOTE | 2025-11-15 12:40 | Hospitalist Progress Note ---
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 and CVA recrudescence, respectively Admitting labs notable for VERNA but otherwise mostly unremarkable Head CT negative Brain MRI findings not consistent with acute infarction Lethargy and falls likely secondary to COVID and UTI as well as generalized weakness from multiple hospitalizations PT/OT evals recommending return to SNF at time of discharge Anticipate DC on 11/16 COVID Biofire positive CXR unremarkable Vitals stable and patient remains on room air Continue supportive care UTI Urine culture positive for E Coli ESBL Rocephin changed to Ertapenem; treat for 3 days R hip pain s/p falls R hip XR without fracture or dislocation, notes mild arthritis RLE doppler US negative for DVT R hip CT with no evidence of fractures; mild R hip osteoarthritis, moderate osteoarthritis of the pubic symphysis Continue lidocaine patch and tylenol PRN VERNA-> resolved Creat 1.43 on admission-> improved with fluids Likely secondary to dehydration in setting of poor PO intake Avoid nephrotoxic agents as able Monitor renal function PAF Rate controlled Not anticoagulated due to recurrent falls Continue metoprolol Chronic HFpEF Torsemide initially on hold due to poor PO intake Resume tomorrow as BPs have been running high HTN Continue losartan and torsemide CAD s/p stent History of CVA Continue baby aspirin and statin Chronic anemia H/H at baseline Continue to monitor Other chronic medical conditions: Hypothyroidism - Continue levothyroxine. DMII - Hgb A1c 6.3% earlier this month, BSG ACHS and SSI Asthma - Continue home inhalers and montelukast Stress urinary incontinence - Continue oxybutynin GERD - Continue PPI DVT Prophylaxis: SCDs/TEDs Code Status: FULL CODE PCP: Lilo Mai MD Disposition: Anticipate DC back to [facility] on 11/16 Please note the above document was generated using voice recognition software. It may contain grammatical, syntax or spelling errors. Any formal questions or concerns about the content, text or information contained within the body of this dictation should be directly addressed to the provider for clarification Admission and Anticipated Discharge Date Admission Date: November 10, 2025 Subjective Patient seen and examined at bedside. Comfortable; not in distress. Denies fever, chills, chest pain, shortness of breath, abdominal pain or urinary symptoms. No significant overnight events Review of Systems Review of Systems: All systems reviewed & are unremarkable except as noted in Subjective Physical Exam Physical Exam: General/Psych: ill appearing, sitting up in bed, NAD, conversing easily Respiratory: normal respiratory effort, lungs clear to auscultation, no wheeze/rales/rhonchi, no accessory muscle use Cardiovascular: regular rate and rhythm, no murmur/rub/gallop Extremities: no cyanosis or clubbing, normal peripheral pulses, no BLE edema Abdomen/GI: normal bowel sounds, soft, nontender Neurologic/MSK: A+Ox3, motor strength 5/5, moves all extremities Skin: no rashes, normal color, warm and dry Results & Data Results & Data Vital Signs (Past 12 Hours) Vital Signs Temp Pulse Pulse Resp BP BP Pulse Ox 11/15/25 09:28 11/15/25 08:33 36.4 C L 77 17 175/82 H 96 11/15/25 05:24 61 11/15/25 03:48 37 C 70 18 164/88 H 94 O2 Del Method 11/15/25 09:28 Room Air 11/15/25 08:33 Room Air 11/15/25 05:24 11/15/25 03:48 Room Air
[2025-11-16 02:54] VITALS: O2SAT 95
[2025-11-16 07:26] VITALS: BP 149/78; PULSE 69; RESP 18; TEMP 97.3
[2025-11-16 10:51] LABS: Hematocrit (blood only) 36.8 % (37.0-47.0); Hemoglobin 11.8 g/dL (12.0-16.0); Mean Corpuscular Hemoglobin 28.7 pg (25.0-34.0); Mean Corpuscular Volume 89.5 fL (80.0-100.0); Platelet Count 348 K/uL (130-400); RDW Standard Deviation 50.5 fL (36.4-46.3); Red Blood Count 4.11 M/uL (4.20-5.40); White Blood Count 8.90 K/ul (4.8-10.8)
[2025-11-16 11:04] LABS: Anion Gap 9.0 (3-11); Blood Urea Nitrogen 12.0 mg/dl (6-23); Calcium 9.1 mg/dl (8.6-10.3); Carbon Dioxide 26.0 mmol/L (21-32); Chloride 102.0 mmol/L (98-107); Creatinine Clr Calc Pharmacy 44.0 ml/min; Glucose 130.0 mg/dl (70-99(Fasting)); Magnesium 1.5 mg/dl (1.7-2.4); Potassium 3.7 mmol/L (3.5-5.1); Sodium 137.0 mmol/L (136-145)
--- NOTE | 2025-11-16 11:44 | Discharge Summary ---
Date of Service November 16, 2025 Admission HPI Per Admitting Provider History obtained from patient, family, and records. Limited history from patient secondary to disorientation. 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 Three [facility] admissions since July,. Last confinement 2 weeks ago for CVA recrudescence presenting as transient confusion and left leg numbness. Patient discharged to [facility] rehab facility before transitioning to [facility] yesterday. Recurrent falls since admission at [facility] yesterday. Patient denies chest pain, cough, SOB, syncope. Patient felt unstable on her feet. One fall resulting in head trauma. No LOC. Patient seems more confused than usual this morning as per son. Patient complaining of right hip pain. Right leg seems more swollen than usual as per son. Achy headache symptoms. Patient brought to ER for evaluation. SBP 170s upon arrival at the ER. 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 Admission Exam Per Admitting Provider GENERAL: Disoriented, slightly uncomfortable, no respiratory distress SKIN: Pallor, warm HEENT: Contusion over forehead, pale palpebral conjunctivae, no ptosis, dry buccal mucosa NECK : Supple, no tenderness CHEST : Decreased breath sounds, no tenderness HEART : RRR, systolic murmur ABDOMEN: Some distention, nontender EXTREMITIES : RLE swelling, right hip tenderness, no other conspicuous deformities noted NEUROLOGIC : Disoriented, no facial asymmetry, episodic rest tremors RLE, gait and stance not assessed Principal Diagnosis Lethargy Recurrent falls Covid 19 Discharge Exam General/Psych:comfortable; not in any distress Respiratory: normal respiratory effort, lungs clear to auscultation, no wheeze/rales/rhonchi, no accessory muscle use Cardiovascular: regular rate and rhythm, no murmur/rub/gallop Extremities: no cyanosis or clubbing, normal peripheral pulses, no BLE edema Abdomen/GI: normal bowel sounds, soft, nontender Neurologic/MSK: A+Ox3, motor strength 5/5, moves all extremities Skin: no rashes, normal color, warm and dry Discharge Data Allergies Allergy/AdvReac Type Severity Reaction Status Date / Time paroxetine Allergy Severe ANAPHYLAXIS Verified 11/10/25 22:12 mold Allergy Intermediate asthma Verified 08/20/25 21:05 symptoms pollen extracts Allergy Intermediate asthma Verified 08/20/25 21:05 symptoms Penicillins Allergy Mild BLISTERED Verified 11/10/25 22:12 HANDS grapefruit Allergy Unknown POSITIVE Verified 11/10/25 22:12 ALLERGY TEST/BRONCHITIS vasquez AdvReac Intermediate gas and Verified 11/10/25 22:12 bloating with consuption of green or kidneys beans broccoli AdvReac Intermediate GAS Verified 11/10/25 22:12 cabbage AdvReac Intermediate "Brassica Verified 11/10/25 22:12 oleracea" -- gas/bloating cauliflower AdvReac Intermediate GAS Verified 11/10/25 22:12 crab AdvReac Intermediate diarrhea Verified 11/10/25 22:12 green vasquez AdvReac Intermediate GAS/BLOATIN Verified 11/10/25 22:12 G peanut AdvReac Intermediate GAS/BLOATIN Verified 11/10/25 22:12 G peas AdvReac Intermediate GAS/BLOATIN Verified 11/10/25 22:12 G orange AdvReac Unknown POSITIVE Verified 11/10/25 22:12 ALLERGY TEST/BRONCHITIS Consultations 11/10/25 23:14 ED Decision to Admit Stat Ordered Studies 11/10/25 21:32 CT head/brain wo con Stat 11/11/25 US venous doppler LE RT Stat 11/11/25 09:45 CT hip RT wo con Urgent 11/11/25 13:31 MRI Brain [MR brain wo con] Urgent Hospital Course (1) Lethargy: (2) Recurrent falls: (3) COVID: (4) Acute UTI: (5) VERNA (acute kidney injury): Plan Patient is an 85-year-old female with past medical history significant for diet-controlled DM type II, hypothyroidism, HLD, HTN, DEMARIO with CPAP intolerance, asthma, history of PE related to OCP use, PAF not on anticoagulation therapy due to history of traumatic subdural hematoma and recurrent falls, 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 COVID Biofire positive CXR unremarkable Vitals stable and patient remains on room air UTI Urine culture positive for E Coli ESBL Rocephin changed to Ertapenem; treat for 3 days R hip pain s/p falls R hip XR without fracture or dislocation, notes mild arthritis RLE doppler US negative for DVT R hip CT with no evidence of fractures; mild R hip osteoarthritis, moderate osteoarthritis of the pubic symphysis Continue lidocaine patch and tylenol PRN VERNA-> resolved Creat 1.43 on admission-> improved with fluids Likely secondary to dehydration in setting of poor PO intake Please note the above document was generated using voice recognition software. It may contain grammatical, syntax or spelling errors. Any formal questions or concerns about the content, text or information contained within the body of this dictation should be directly addressed to the provider for clarification Total Time Total Time Spent Total Time Spent (In Minutes): 45 Total Time Includes: Examination of the Patient, Discharge Planning, Medication Reconciliation, Communication With Other Providers and Other Discharge Plan Discharge Items Patient Disposition: Home - Self-Care Reason For Visit: AMS, ARF Discharge Diagnosis: Lethargy Recurrent falls COVID Acute UTI Condition on Discharge: Good Activity: Resume your previous activity Non-emergency contact: Primary Care Provider Call non-emergency contact if: you have any medication questions and your sympt oms worsen Follow-up/Referrals: Lilo Mai MD [Primary Care Provider] - Diet: Regular Addtl Attending Provider Instructions: You were admitted to the hospital due to COVID-19 infection and UTI. You are treated for it during the hospitalization. You have been prescribed lidocaine patch to be applied to your hip Pending Studies at Discharge: No Stand-Alone Forms: My Daio, Smoking Cessation Medications and DC Order Prescriptions: New lidocaine 5 % Adhesive Patch,Medicated 1 patch transdermal QAM Qty: 30 0RF Continued torsemide 20 mg tablet 20 mg PO DAILY oxybutynin chloride 10 mg tablet extended release 24hr 10 mg PO DAILY aspirin 81 mg tablet,delayed release (DR/EC) 81 mg PO DAILY levothyroxine 75 mcg tablet 75 mcg PO DAILYBB Rx Instructions: GIVE AT LEAST 30-60 MIN BEFORE BREAKFAST ON AN EMPTY STOMACH WITH A FULL GLASS OF WATE potassium chloride 20 mEq tablet,ER particles/crystals 20 meq PO BID magnesium oxide 400 mg (241.3 mg magnesium) tablet 400 mg PO DAILY pantoprazole 40 mg tablet,delayed release (DR/EC) 40 mg PO DAILYBB montelukast 10 mg tablet 10 mg PO DAILY metoprolol succinate 25 mg tablet extended release 24 hr 25 mg PO DAILY Lumigan 0.01 % drops 1 drp OPB QPM fluticasone propion-salmeterol [Wixela Inhub] 250-50 mcg/dose Blister With Device 1 inh INHALATION BID azelastine 137 mcg (0.1 %) [place],Non-Aerosol 2 spray INTRANASAL HS Rx Instructions: administer into each nostril fluticasone propionate 50 mcg/actuation [place],Suspension 2 spray INTRANASAL DAILY Rx Instructions: administer into each nostril diclofenac sodium [Voltaren Arthritis Pain] 1 % Gel 2 g TOPICAL TID PRN (Reason: Pain) Rx Instructions: apply to single elbow, wrist or hand; for hand includes palm/fingers/back of hand albuterol sulfate 90 mcg/actuation Aerosol Powdr Breath Activated 2 inh INHALATION Q4H PRN (Reason: Wheezing) losartan 50 mg tablet 50 mg PO DAILY atorvastatin 80 mg tablet 80 mg PO DAILY vitamin B complex [B Complex 1] Tablet 1 tab PO DAILY simethicone [Simethicone-80] 80 mg Tablet,Chewable 40 mg PO BID hydrocortisone 1 % ointment 1 applic TOPICAL Q6 PRN (Reason: Itching) Discontinued diphenhydramine HCl 25 mg Capsule 25 mg PO DAILY Discharge Orders: Discharge Order (Routine); Ordered 11/16/25 Ordered By: Osmany Quiroz Admission Data Admit Date/Time: 11/10/25 23:34 Attending Provider: Osmany Quiroz Admit Provider: Panda Arreola Primary Care Provider: Lilo Mai Other Providers: Panda Arreola; Hunter Krause [place]
== END 2025-11-16 14:46 | DRG 177 ==
LOC: ED 19:04 → 2N 23:34 → SUATTDRO 23:34 → 2N 11-11 00:59 → 2W 11-11 18:36